=== PATIENT | male | born 1970 | race American Indian/Alaskan Native ===

== ENCOUNTER 2021-12-16 09:10 | Emergency (ER) | payer OTHER, SELFPAY ==
--- NOTE | ~2021-12-16 | XR_ITS ---
EXAMINATION: XR HIPS, BILATERAL XR KNEE, RIGHT XR KNEE, LEFT CLINICAL INFORMATION: Fall, trauma, pain COMPARISON: None TECHNIQUE: AP view pelvis is performed along with 3 views right hip and 2 views left hip. Right knee is imaged in AP and crosstable lateral projection. Left knee is imaged in AP x2 and a crosstable lateral projection. FINDINGS: Pelvis/hips: Mild generalized osteopenia pelvis. There is no fracture or dislocation pelvis or hips. No diastases SI joints or pubis. There are degenerative changes in both hips. No visible erosive change. Bowel gas unremarkable. Large amount of stool present in rectosigmoid. Probable degenerative changes lower lumbar spine. Right knee: Mild generalized osteopenia. There is a predominantly transverse fracture involving the distal femoral metaphysis, mildly impacted. The proximal tibia and fibular appear intact. There is no dislocation. No definite destructive process. There is a large suprapatellar effusion with fat fluid level. No focal joint narrowing or erosive change. Left knee: Mild generalized osteopenia. Small focal cortical buckling lateral supracondylar region but without visible fracture and no dislocation or destructive process or periostitis. No suprapatellar effusion. Hoffa's fat pad normal. No focal joint narrowing or erosive change. XR/XR knee RT 4V IMPRESSION: -Fracture right distal femur with large suprapatellar effusion and fat fluid level. -No visible fracture pelvis, hips, or left knee. -Generalized osteopenia. Clinically correlate.
--- NOTE | ~2021-12-16 | XR_ITS ---
EXAMINATION: XR ELBOW, RIGHT CLINICAL INFORMATION: Fall, trauma, pain COMPARISON: None TECHNIQUE: AP, lateral, and oblique views of the right elbow. FINDINGS: No fracture, dislocation, or elbow capsular effusion. No joint narrowing or erosive changes. XR/XR elbow RT min 3V IMPRESSION: No fracture, dislocation, or capsular effusion.
--- NOTE | ~2021-12-16 | XR_ITS ---
EXAMINATION: XR HIPS, BILATERAL XR KNEE, RIGHT XR KNEE, LEFT CLINICAL INFORMATION: Fall, trauma, pain COMPARISON: None TECHNIQUE: AP view pelvis is performed along with 3 views right hip and 2 views left hip. Right knee is imaged in AP and crosstable lateral projection. Left knee is imaged in AP x2 and a crosstable lateral projection. FINDINGS: Pelvis/hips: Mild generalized osteopenia pelvis. There is no fracture or dislocation pelvis or hips. No diastases SI joints or pubis. There are degenerative changes in both hips. No visible erosive change. Bowel gas unremarkable. Large amount of stool present in rectosigmoid. Probable degenerative changes lower lumbar spine. Right knee: Mild generalized osteopenia. There is a predominantly transverse fracture involving the distal femoral metaphysis, mildly impacted. The proximal tibia and fibular appear intact. There is no dislocation. No definite destructive process. There is a large suprapatellar effusion with fat fluid level. No focal joint narrowing or erosive change. Left knee: Mild generalized osteopenia. Small focal cortical buckling lateral supracondylar region but without visible fracture and no dislocation or destructive process or periostitis. No suprapatellar effusion. Hoffa's fat pad normal. No focal joint narrowing or erosive change. XR/XR hips BRENNON min 3V IMPRESSION: -Fracture right distal femur with large suprapatellar effusion and fat fluid level. -No visible fracture pelvis, hips, or left knee. -Generalized osteopenia. Clinically correlate.
--- NOTE | ~2021-12-16 | XR_ITS ---
EXAMINATION: XR HIPS, BILATERAL XR KNEE, RIGHT XR KNEE, LEFT CLINICAL INFORMATION: Fall, trauma, pain COMPARISON: None TECHNIQUE: AP view pelvis is performed along with 3 views right hip and 2 views left hip. Right knee is imaged in AP and crosstable lateral projection. Left knee is imaged in AP x2 and a crosstable lateral projection. FINDINGS: Pelvis/hips: Mild generalized osteopenia pelvis. There is no fracture or dislocation pelvis or hips. No diastases SI joints or pubis. There are degenerative changes in both hips. No visible erosive change. Bowel gas unremarkable. Large amount of stool present in rectosigmoid. Probable degenerative changes lower lumbar spine. Right knee: Mild generalized osteopenia. There is a predominantly transverse fracture involving the distal femoral metaphysis, mildly impacted. The proximal tibia and fibular appear intact. There is no dislocation. No definite destructive process. There is a large suprapatellar effusion with fat fluid level. No focal joint narrowing or erosive change. Left knee: Mild generalized osteopenia. Small focal cortical buckling lateral supracondylar region but without visible fracture and no dislocation or destructive process or periostitis. No suprapatellar effusion. Hoffa's fat pad normal. No focal joint narrowing or erosive change. XR/XR knee LT 4V IMPRESSION: -Fracture right distal femur with large suprapatellar effusion and fat fluid level. -No visible fracture pelvis, hips, or left knee. -Generalized osteopenia. Clinically correlate.
[2021-12-16 09:18] VITALS: BP 150/90; PULSE 82; O2SAT 100
[2021-12-16 09:31] VITALS: BP 150/90; PULSE 82; RESP 18; TEMP 36.7; O2SAT 100; BMI 48.8
--- NOTE | 2021-12-16 10:01 | ED_ITS ---
HPI - Fall General Chief Complaint: Fall Stated Complaint: FELL OUT OF HIS WHEELCHAIR Time Seen by Provider: 12/16/21 10:01 Source: patient, EMS and other ( room a at bedside) Mode of arrival: EMS Limitations: no limitations History of Present Illness HPI Narrative: 51-year-old male who has a past medical history of Guillain-Martensdale syndrome for many years who receives IVIG therapy once a month for a week who is wheelchair- bound presenting to the ED via EMS after the chair van that was picking him up from his home accidentally tilt his chair while bring him on the ramp and the patient fell onto his right side/bilateral knees and since then he has been having worsening bilateral knee pain worse on the right than the left and right elbow pain. Reports that he normally does not walk. He denies head injury loss of consciousness. He denies prolonged down time. He denies neck injury. He denies any chest injury/pain, abdominal injury/ pain, any other extremity injury, paresthesias or any weakness or any other symptoms complaints or concerns at this time. 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) Fall from: wheelchair Fall witnessed: yes, by family ( By roommate) Place fall occurred: street ( outside of his home) Loss of consciousness: none Prolonged down time: no Symptoms prior to fall: none Context: other ( see above fell off of wheelchair) Location of injury - extremities: right: elbow and bilateral: knee Severity: severe Severity scale (1-10): >10 Quality: aching Associated symptoms (after fall): other ( see above) Related Data Previous Rx's Medication Instructions Recorded acetaminophen 500 mg tablet 1,000 mg PO QID PRN fever or pain 12/16/21 (Tylenol Extra Strength) #14 tabs docusate sodium 100 mg capsule 100 mg PO BID PRN Constipation #14 12/16/21 (Colace) caps oxycodone 5 mg tablet 5 mg PO Q6H PRN pain #14 tabs 12/16/21 polyethylene glycol 3350 17 17 g PO BID constipation #238 12/16/21 gram/dose oral powder (Miralax) grams Allergies Allergy/AdvReac Type Severity Reaction Status Date / Time No Known Allergies Allergy Verified 12/16/21 09:33 Review of Systems Review of Systems: Constitutional : No Fever, No Chills ENT/Mouth : No Ear Pain, No Hoarseness, No sore throat Eyes: No Eye Pain, No Swelling, No Redness, No Foreign Body Cardiovascular : No Chest Pain, No SOB Respiratory : No Cough, No Dyspnea Gastrointestinal : No Nausea, No Vomiting, No Diarrhea, No abdominal Pain Genitourinary : No Dysuria, No Hematuria Musculoskeletal : + bilateral knee pain and right elbow pain, no additional joint pain, No Myalgias, No Joint Swelling Skin : No Skin lacerations, No rash Neuro : No Weakness, No Numbness, No Paresthesias, No Loss of Consciousness, No Dizziness, No Headache Psych : No Anxiety/Panic, No Depression Heme/Lymph: no easy bruising, no Lymphadenopathy Endocrine : No Polyuria, No Polydipsia Yes all other systems are reviewed and are negative [facility] Past Medical History Attestation statement: The following information was validated with the patient. Source: old records reviewed and nursing notes reviewed Social History Social History Advance Directives: Yes Advance Directives Information Provided: Yes Advance Directives on File: No Physical Exam Vital Signs: Vital Signs: Last Vital Signs Temp 98.0 F 12/16/21 09:31 Pulse 82 12/16/21 09:31 Resp 17 12/16/21 12:00 BP 150/90 H 12/16/21 09:31 Pulse Ox 100 12/16/21 09:31 O2 Del Method 12/16/21 09:31 BMI result Body Mass Index 48.8 vital signs have been reviewed as normal and appeared to be correct. Blood pressure 150/90. Heart rate normal. Respiration rate normal. Temperature normal. Oxygen saturation normal. Appearance: Alert. Oriented X3. No acute distress. Head: Normal external exam. Normocephalic. Atraumatic. No Franklin signs noted. No raccoon eyes noted Eyes: PERRLA. EOMI. Conjunctiva and sclera normal. Eyelids normal. ENT: EAC normal. TM's Normal. No septal hematoma noted. No hemotympanum noted. Pharynx normal. Uvula midline. Moist mucous membranes. No lesions/ulcerations or masses noted on the tongue. Normal voice. No trismus noted. No drooling noted. No muffled voice noted. Neck: Normal inspection. Neck supple. FROM. No adenopathy. Thyroid Normal. No tracheal deviation noted. No crepitus is noted. No meningeal signs. No neck mass noted. No signs of trauma noted. CVS: Normal heart rate and rhythm. Heart sound normal. Pulses normal throughout. No murmurs/rales/gallops. Respiratory: No respiratory distress. Painless inspiration. Breath sounds normal. No wheezes/rales/rhonchi noted. Chest nontender. No crepitus is noted. No signs of trauma noted. No accessory muscle usage noted or decreased air movement noted. No signs of trauma. Abdomen: Soft and nontender. Bowel sounds normal in all 4 quadrants. No distention noted. No organomegaly noted. No visible injury noted. Back: Full range of motion noted. Nontender. No signs of trauma. Skin: Skin warm and dry. Normal skin color. Normal skin turgor. No rashes/lesions/lacerations noted. Extremities: patient reports bilateral knee pain worse on the right than the left no obvious ligamentous or tendon injury noted or obvious deformity although patient does not allow me to flex the knees due to pain. He would rather keep the bilateral knees and extension for position. He denies any hip pain. There is no obvious ligamentous or tendon injury noted or obvious deformities to the bilateral hips. patient mild tenderness palpation to the right elbow with a superficial abrasion no active bleeding or foreign bodies or obvious ligamentous or tendon injury noted or obvious deformities noted to the right elbow. Otherwise all other Extremities exhibit normal range of motion and nontender. Neuro: Oriented X 3. no new focal deficits. Patient reports he is at Baseline sensation and motor due to his Guillain-Martensdale syndrome. gait not tested due to patient wheelchair bound /Bed-bound. Vascular: + radial pulses/+ 2 distal pedal pulses/+2 dorsalis pedis b/l. Normal cap refill. No cyanosis noted to upper extremity nails and lower extremity toes nails. Course Course Course Narrative: 10am - 51-year-old male who has a past medical history of Guillain-Martensdale syndrome for many years who receives IVIG therapy once a month for a week who is wheelchair- bound presenting to the ED via EMS after the chair van that was picking him up from his home accidentally tilt his chair while bring him on the ramp and the patient fell onto his right side/bilateral knees and since then he has been having worsening bilateral knee pain worse on the right than the left and right elbow pain. Reports that he normally does not walk. patient had an IV placed via EMS and was given IV fentanyl reports the pain subsided although did not last too long with the pain med and pain has returned at this time. Plan: Will obtain a right elbow x-ray, bilateral knee x-rays and bilateral hip x-rays. Provide 1 mg of Dilaudid and 4 mg of Zofran and re-evaluate. Reevaluation(s) Reevaluation #1: - right elbow x-ray negative. - Bilateral hip x-rays negative for any acute processes only chronic changes noted. - Left knee x-ray revealed chronic changes no acute processes noted. - Although right knee x-ray revealed fracture to the right distal femur with large suprapatellar effusion and fat fluid level no additional fractures noted. Therefore I discussed this case with the orthopedic PA Saray she recommended placing the patient on a knee immobilizer with nonweightbearing and follow-up. Therefore I discussed this with the patient and he is normally bed-bound/ wheelchair-bound although usually transferred to the wheelchair by a board and uses his right leg to help home I explained to him that he may not be able to do this therefore he may have to stay bed bound and he will have to be transferred to his appointments by EMS On a stretcher not a chair van. getting case management involved at this time. Patient will be discharged with knee immobilizer and pain meds along with Colace and MiraLax for constipation. I did offer the patient short-term rehab although patient refused reports that he just got out of a long-term and does not want to go back. Also instructed to follow-up with orthopedics. Time: 13:59 Procedures Orthopedic Splinting/Casting Injury #1: Side: right Lower Extremity Injury Location: knee Lower Extremity Immobilizer: knee immobilizer MDM - Fall Medical Records Attestation: I reviewed the patient's medical records. Imaging Data bilateral knee/ hip x-rays: Attestation: I personally reviewed and interpreted this imaging study as follows: Radiologist's impression: FINDINGS: Pelvis/hips: Mild generalized osteopenia pelvis. There is no fracture or dislocation pelvis or hips. No diastases SI joints or pubis. There are degenerative changes in both hips. No visible erosive change. Bowel gas unremarkable. Large amount of stool present in rectosigmoid. Probable degenerative changes lower lumbar spine.? Right knee: Mild generalized osteopenia. There is a predominantly transverse fracture involving the distal femoral metaphysis, mildly impacted. The proximal tibia and fibular appear intact. There is no dislocation. No definite destructive process. There is a large suprapatellar effusion with fat fluid level. No focal joint narrowing or erosive change. Left knee: Mild generalized osteopenia. Small focal cortical buckling lateral supracondylar region but without visible fracture and no dislocation or destructive process or periostitis. No suprapatellar effusion. Hoffa's fat pad normal. No focal joint narrowing or erosive change. XR/XR knee RT 4V IMPRESSION: -Fracture right distal femur with large suprapatellar effusion and fat fluid level. ? -No visible fracture pelvis, hips, or left knee. ? -Generalized osteopenia. Clinically correlate. right elbow x-ray: Attestation: I personally reviewed and interpreted this imaging study as follows: Radiologist's impression: FINDINGS: No fracture, dislocation, or elbow capsular effusion. No joint narrowing or erosive changes.? XR/XR elbow RT min 3V IMPRESSION: No fracture, dislocation, or capsular effusion. Discharge Plan Discharge Clinical Impression: Fall, Sprain of right elbow, Abrasion of elbow, right, Femur fracture, right, Effusion of knee joint right, Left knee sprain Patient Disposition: Home, Self-Care Instructions: Leg Fracture (ED) Prescriptions: New acetaminophen [Tylenol Extra Strength] 500 mg tablet 1,000 mg PO QID PRN (Reason: fever or pain) Qty: 14 0RF oxycodone 5 mg tablet 5 mg PO Q6H PRN (Reason: pain) Qty: 14 0RF Rx Instructions: Partial Fill upon patient request. docusate sodium [Colace] 100 mg capsule 100 mg PO BID PRN (Reason: Constipation) Qty: 14 0RF polyethylene glycol 3350 [Miralax] 17 gram/dose powder 17 g PO BID Qty: 238 0RF Referrals: Jennifer ALEXANDER [Outside] Elliott Hutchinson MD [Physician] - 1 week ( Call to make a follow-up appointment within 1-2 weeks) Physician,Cortez J [Primary Care Provider] - 2 days (your pcp)
[2021-12-16 10:18] VITALS: RESP 18
[2021-12-16] MEDS: HYDROmorphone HCl 1 MG/ML SYRINGE IVPUSH (10:18)
[2021-12-16] MEDS: ondansetron HCL 4 MG/2 ML VIAL IVPUSH (10:19)
[2021-12-16 12:00] VITALS: RESP 17
[2021-12-16] MEDS: oxyCODONE HCl Immed Release 5 MG TABLET PO ×2 (15:52→20:55)
--- NOTE | 2021-12-16 16:30 | MHC.CM.ED ---
Received case management consult from Tricia PICKETT. Patient came to the ER after falling from his wheelchair while getting into the van for transport. Patient lives with his roommate, is bedbound/wheelchair bound at baseline. Patient was at [facility] from 01/16/2018-10/17/2021. Patient has been working with [facility] to obtain some UTILIZATION REVIEW SPECIALIST help. But this process has taken a while. Patient has no interest in returning to rehab. Patient is intersted in VNA. Understands they would not be there daily. Patient is concerned about being able to get transportation for doctors appointments. PCP is Ramiro Stewart. Referral has been made to [facility] for usp and social services specialist. [facility] booked for next available. Continue to monitor for d/c needs.
--- NOTE | 2021-12-18 08:58 | MHC.CM.ED ---
Unable to find any [facility]NA agency that is able to accept patient. Patient will have to reach out to his PCP for assistance.
== END 2021-12-16 20:56 | disposition home or self-care (01) ==
PROVIDERS: Emergency Provider Emergency Medicine; PCP Internal Medicine
DX: S72.491A Other fracture of lower end of right femur, initial encounter for closed fracture (principal); S53.401A Unspecified sprain of right elbow, initial encounter; S83.92XA Sprain of unspecified site of left knee, initial encounter; S50.311A Abrasion of right elbow, initial encounter; W10.2XXA Fall (on)(from) incline, initial encounter; K59.00 Constipation, unspecified; M25.461 Effusion, right knee; M85.862 Other specified disorders of bone density and structure, left lower leg; M85.861 Other specified disorders of bone density and structure, right lower leg; G61.0 Guillain-Barre syndrome; Z99.3 Dependence on wheelchair; Y93.89 Activity, other specified; Y92.414 Local residential or business street as the place of occurrence of the external cause; Y99.9 Unspecified external cause status
CPT/HCPCS: 73080; 73522; 73564; 96374; 96375; 99283; 99284; J1170; J2405

== ENCOUNTER 2022-01-03 14:00 | Inpatient (IN) | payer OTHER, SELFPAY ==
--- NOTE | ~2022-01-03 | US_ITS ---
EXAMINATION: US VENOUS ULTRASOUND WITH DOPPLER LOWER EXTREMITY, RIGHT CLINICAL INFORMATION: This is a 51-year-old male with right leg pain and swelling. COMPARISON: None TECHNIQUE: Ultrasound of the venous system was performed. The initial examination demonstrated deep vein thrombosis in the proximal thigh and groin. The study was difficult to perform on the lower leg because of the presence of the brace. Therefore, the findings were communicated to the emergency room as noted below and the remainder the examination was limited. FINDINGS: There is subcutaneous edema. There is deep vein thrombosis involving the right common femoral vein and extending into the profunda femoral vein. This critical result was communicated directly by telephone to Dr. Binta Ly at 2050 hrs on 01/03/2022 and the content and urgency of the communication was understood. US/US venous duplex LE RT IMPRESSION: 1. There is deep vein thrombosis involving the right common femoral vein.
--- NOTE | ~2022-01-03 | CT_ITS ---
EXAMINATION: CT CHEST ANGIOGRAM PE PROTOCOL CLINICAL INFORMATION: , Reason for Exam tachycardia, recent femur fracture COMPARISON: None TECHNIQUE: Volumetric imaging was performed through the chest. Reformatted coronal and sagittal imaging was performed. 3-D MIP images performed at a dedicated separate workstation. This CT examination was performed using dose optimization techniques as appropriate, variously including the following: *Automated exposure control *Adjustment of mA and/or kV according to patient size (this includes techniques or standardized protocols for targeted exams where dose is matched to indication/reason for exam; i.e. extremities or head) *Use of iterative reconstruction technique CONTRAST: 71 mL Omnipaque 350 injected DLP: 526 FINDINGS: PULMONARY ARTERIES: There is proper opacification of the pulmonary artery and its main branches. There are linear artifacts and filling defect in a branch of left pulmonary artery to the left lower lobe, it is unclear if this is motion artifact with image distortion versus nonocclusive embolus. I would probably favor artifact over true embolus however the latter cannot be entirely excluded. Refer image 206 series 7. There is no cardiac strain. No reflux of contrast to the liver. LINES/TUBES: None LUNGS: Lung Parenchyma: There is no CT evidence of significant lung parenchymal disease. Lung Nodules:There are no significant lung nodules. AIRWAYS: Trachea and bronchi are normal. PLEURA: No pleural effusion or pneumothorax. MEDIASTINUM AND LAXMI: The visualized thyroid gland is unremarkable. No mediastinal, hilar or axillary lymphadenopathy. There is no mediastinal mass. VESSELS: Thoracic aorta is normal in size. HEART AND PERICARDIUM: Heart is normal in size. There is no pericardial effusion. There are coronary calcifications. CHEST WALL, LOWER NECK, SURROUNDING SOFT TISSUES: Normal VISUALIZED ABDOMEN: Unremarkable BONES: The visualized bony thorax is within normal limits. CT/CT angio chest PE protocol IMPRESSION: 1. Intermediate probability for PE, there is nonocclusive filling defect in a branch of left pulmonary artery to the left lower lobe, visualization of which is distorted by motion artifact, Wells image, although this could be imaged distortion/artifact which probably the cause of this filling defect however nonocclusive embolus cannot entirely be ruled out. There is no cardiac strain. If there is high index of suspicion, may consider repeat the CT angiogram in [address] scan otherwise normal.
[2022-01-03 14:19] VITALS: BP 101/64; BP 104/70; PULSE 125; RESP 20; TEMP 36.8; O2SAT 100; BMI 34.9
[2022-01-03 14:21] VITALS: BP 101/64; PULSE 124; RESP 18; TEMP 37.2; O2SAT 96
--- NOTE | 2022-01-03 14:31 | ECG_ITS ---
Test Reason : DIZZINESS Blood Pressure : / mmHG Vent. Rate : 126 BPM Atrial Rate : 126 BPM P-R Int : 140 ms QRS Dur : 110 ms QT Int : 306 ms P-R-T Axes : 030 -10 032 degrees QTc Int : 443 ms Sinus tachycardia Otherwise normal ECG No previous ECGs available Referred By: Kaitlin Hernandez Electronically Signed By:WILLIAM LU MD
[2022-01-03 15:16] LABS: Basophils Percent Auto 0.3 % (0-2); Eosinophils Percent Auto 0.1 % (0-4); Hematocrit 44.8 % (42.0-52.0); Hemoglobin 14.8 g/dl (14.0-18.0); Imm Gran Abs Auto 0.04 X10*3/uL (0.00-0.03); Imm Gran Pct Auto 0.4 % (0.0-0.4); Lymphocytes Absolute Auto 1.2 X10*3/uL (1.2-4.9); Lymphocytes Percent Auto 12.1 % (20-40); MANUAL DIFF FLAG NO; Mean Corpuscular Hemoglobin 28.2 pg (27.0-33.0); Mean Corpuscular Volume 85.3 fL (80.0-98.0); Mean Platelet Volume 9.1 fL (9.4-12.4); Monocytes Absolute Auto 0.7 X10*3/uL (0.1-1.2); Monocytes Percent Auto 6.8 % (2-11); Neutrophils Absolute Auto 7.7 x10*3/uL (2.0-8.3); Neutrophils Percent Auto 80.3 % (45-73); Platelet Count 567 X10*3/uL (160-400); Red Blood Count 5.25 X10*6/uL (4.60-5.80); Red Cell Distribution Width 12.8 % (11.0-16.0); White Blood Count 9.5 X10*3/uL (4.8-10.8)
--- NOTE | 2022-01-03 15:29 | ED.DIZZY ---
HPI - Dizziness General Chief Complaint: Dizziness Stated Complaint: anxiety Time Seen by Provider: 01/03/22 14:25 Source: patient Mode of arrival: EMS Limitations: no limitations History of Present Illness HPI Narrative: Patient presents emergency department for evaluation of dizziness/lightheadedness and feeling like he was going to pass out. He states that for the past 3 days he experiences symptoms when he is sitting up in bed and trying to freshen up. He states that he begins to feel dizzy, feels short of breath, feels his heart racing and starts to see black floaters like he is going to pass out. His symptoms resolved after he lies back and relaxes for some time. He denies this ever occurring in the past. He does state that it brings on anxiety for him. He denies fevers, chills, headache, vision changes, neck pain, neck stiffness, chest pain, shortness of breath at rest, difficulty breathing, nausea, vomiting, abdominal pain, numbness or tingling of his extremities. Related Data Previous Rx's Medication Instructions Recorded acetaminophen 500 mg tablet 1,000 mg PO QID PRN fever or pain 12/16/21 (Tylenol Extra Strength) #14 tabs docusate sodium 100 mg capsule 100 mg PO BID PRN Constipation #14 12/16/21 (Colace) caps oxycodone 5 mg tablet 5 mg PO Q6H PRN pain #14 tabs 12/16/21 polyethylene glycol 3350 17 17 g PO BID constipation #238 12/16/21 gram/dose oral powder (Miralax) grams Allergies Allergy/AdvReac Type Severity Reaction Status Date / Time No Known Allergies Allergy Verified 12/16/21 09:33 Review of Systems Review of Systems: Constitutional: No weight loss. No fever. No chills. No weakness. No fatigue. Skin: No rash. No itching. Cardiovascular: No chest pain. No chest pressure. Positive palpitations. No pedal edema. Respiratory: Positive shortness of breath. No cough. No sputum production. Gastrointestinal: No anorexia. No nausea. No vomiting. No diarrhea. No abdominal pain. No blood in stool. Genitourinary: No burning micturition. No urinary frequency. No incontinence. Neurologic: No headache. Positive dizziness. Positive pre-syncope. No syncope. No unilateral weakness. No numbness. No tingling. No change in bowel or bladder control. Musculoskeletal: No muscle pain. No back pain. No joint pain. No stiffness. Hematologic: No bleeding. No bruising. Lymphatics: No enlarged lymph nodes. Psychiatric:No depression. No anxiety. Endocrine: No polyuria. No polydipsia. Yes all other systems are reviewed and are negative [facility] Social History Social History Alcohol intake: current Alcohol intake frequency: holidays/special occasions only Patient Tobacco Use Status: Never used Tobacco Use of substances other than those prescribed or required for medical reasons: Yes Substance Use Type: Marijuana Substance Use Frequency: Occasionally Advance Directives: Yes Advance Directives Information Provided: No Advance Directives on File: Yes Advance Directives Date on File: 12/16/21 Physical Exam Vital Signs: Vital Signs: Last Vital Signs Temp 97.9 F 01/03/22 17:28 Pulse 120 H 01/03/22 17:28 Resp 16 01/03/22 17:28 BP 106/68 01/03/22 17:28 Pulse Ox 100 01/03/22 17:28 O2 Del Method 01/03/22 17:28 BMI result Body Mass Index 34.5 Vital signs have been reviewed as normal and appeared to be correct. Blood pressure normal.? Tachycardia Respiration rate normal. Temperature normal.? Oxygen saturation normal. Appearance: Alert.?Oriented to person, place and time. No acute distress.?Normal affect. Eyes: Pupils equal, round and reactive to light.? ENT: Pharynx normal.?? Neck: Normal inspection.? Neck supple.?? CVS: Heart sounds normal. Tachycardia, heart rate in the 120 is at rest, noted to increase to 140s with sitting forward or deep inspiration.? Pulses normal.?? Respiratory: No respiratory distress.? Lung sounds clear to auscultation bilaterally?? Abdomen: Soft and non-tender. Normoactive bowel sounds. ? Skin: Skin warm and dry.? Normal skin color.? ? Extremities: No lower extremity edema.? No calf ttp? Neuro: Moves upper extremities spontaneously. Sensation intact bilaterally. CN II-XII intact. No focal neuro deficits. 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 Patient was seen in the emergency department 12/17/2019 G2 for evaluation after fall while in his wheelchair is, at that time was found to have a right distal femur fracture with large suprapatellar effusion and fat fluid level, he was evaluated in use emergency department, Orthopedics was consulted and patient was placed in a knee immobilizer advised to be nonweightbearing, and to follow-up in office. Patient states that he has not received any contact from the orthopedics office, he further states that he did not contact them on his own. Prior to this injury he was able to use his right leg and upper body strength to facilitate slide board transfers, however given this is where his fracture is he has been bed-bound since this injury. Patient was offered short-term rehab before discharge but he declined. He denies any additional falls or injury since this event. Patient is overall well appearing, no increased work of breathing, no apparent distress. He is afebrile, no tachypnea, no hypoxia. Patient is notably tachycardic with heart rate in the 120s while at rest, noted during exam with sitting forward in deep inspiration tachycardia increasing to 140s. Given his recent femur fracture, concern for pulmonary embolism, will obtain CBC, CMP, EKG, troponin, and CT angio of the chest. Reevaluation(s) Reevaluation #1: EKG reveals sinus tachycardia with no acute ischemic findings, troponin 4.9. CBC reveals no leukocytosis, no anemia, or for thrombocytosis with platelet count 567. CMP is overall unremarkable, normal renal function. Time: 15:39 Reevaluation #2: CT angio of the chest with impression of intermediate probability for PE, noted a nonocclusive filling defect in the branch of the left pulmonary artery to the left lower lobe, but according to the report is unclear whether this is motion artifact with image distortion versus nonocclusive emboli. Discussed this case with ED attending Dr. Ly, will obtain D-dimer, if normal and not elevated unlikely to be pulmonary embolism. Time: 17:49 Reevaluation #3: Elevated D-dimer 2599. Highly suspicious for pulmonary embolism with this in addition to CT angio of the chest findings. Discussed these findings with patient. Spoke with hospitalist Dr. Bauer who accepted patient for admission to medicine service. Will start patient at Lovenox 1 mg/kg. Time: 19:15 Additional Reevaluation(s): 2054: Received call from the water quality technician, Dr. Bauer had requested order for bilateral venous duplex. Patient refusing to remove the knee immobilizer from the right lower extremity however water quality technician was able to obtain imaging of the proximal leg is found to have an extensive clot in the right common femoral vein extending into the profundus, at this time left lower extremity ultrasound was not performed as patient was found to have DVT, likely to be the source of his pulmonary embolism. Dr. Bauer made aware of the above findings. [facility] Medical Records Attestation: I reviewed the patient's medical records. Lab Data Attestation: I reviewed the patient's lab results. Result diagrams: 01/03/22 15:08 01/03/22 15:08 Labs: Lab Results 01/03/22 01/03/22 01/03/22 Range/Units 15:08 15:08 15:08 WBC 9.5 (4.8-10.8) X10*3/uL RBC 5.25 (4.60-5.80) X10*6/uL Hgb 14.8 (14.0-18.0) g/dl Hct 44.8 (42.0-52.0) % MCV 85.3 (80.0-98.0) fL MCH 28.2 (27.0-33.0) pg MCHC 33.0 (31.0-36.0) g/dl RDW 12.8 (11.0-16.0) % Plt Count 567 H (160-400) X10*3/uL MPV 9.1 L (9.4-12.4) fL Immature Gran % (Auto) 0.4 (0.0-0.4) % Neut % (Auto) 80.3 H (45-73) % Lymph % (Auto) 12.1 L (20-40) % [place] % (Auto) 6.8 (2-11) % Eos % (Auto) 0.1 (0-4) % Baso % (Auto) 0.3 (0-2) % Lymph # (Auto) 1.2 (1.2-4.9) X10*3/uL [place] # (Auto) 0.7 (0.1-1.2) X10*3/uL Eos # (Auto) 0.0 (0.0-0.4) X10*3/uL Baso # (Auto) 0.0 (0.0-0.2) X10*3/uL Abs Immat Gran (auto) 0.04 H (0.00-0.03) X10*3/uL Absolute Neuts (auto) 7.7 (2.0-8.3) x10*3/uL Absolute Nucleated RBC 0.000 (0.0-0.012) X10*3/uL Nucleated RBC % (auto) 0.0 (0.0-0.2) /100WBC D-Dimer High Sensitivty NG/ML Sodium 135 (135-145) mmol/L Potassium 4.4 (3.3-5.1) mmol/L Chloride 99 (96-108) mmol/L Carbon Dioxide 20 L (22-29) mmol/L Anion Gap 20 (12-20) BUN 14 (9-16) mg/dL Creatinine 0.72 (0.5-1.4) mg/dL Estim Creat Clear Calc 178.1 Estimated GFR > 60 Random Glucose 124 H (60-115) mg/dL Calcium 9.2 (8.4-10.2) mg/dL Magnesium 1.6 (1.6-2.6) mg/dL Total Bilirubin 1.2 H (0.0-1.0) mg/dL AST 17 (5-37) U/L ALT 14 (0-40) U/L Alkaline Phosphatase 110 (39-117) U/L Troponin I High Sens 4.9 (<3.5-35.0) ng/L B-Natriuretic Peptide < 10 (<100) pg/mL Total Protein 7.2 (6.5-8.0) g/dL Albumin 3.6 (3.5-5.0) g/dL TSH (0.32-4.0) uIU/mL COVID-19 (SURYA) (Negative) COVID-19 Clin Com 01/03/22 01/03/22 01/03/22 Range/Units 15:08 18:05 18:05 WBC (4.8-10.8) X10*3/uL RBC (4.60-5.80) X10*6/uL Hgb (14.0-18.0) g/dl Hct (42.0-52.0) % MCV (80.0-98.0) fL MCH (27.0-33.0) pg MCHC (31.0-36.0) g/dl RDW (11.0-16.0) % Plt Count (160-400) X10*3/uL MPV (9.4-12.4) fL Immature Gran % (Auto) (0.0-0.4) % Neut % (Auto) (45-73) % Lymph % (Auto) (20-40) % [place] % (Auto) (2-11) % Eos % (Auto) (0-4) % Baso % (Auto) (0-2) % Lymph # (Auto) (1.2-4.9) X10*3/uL [place] # (Auto) (0.1-1.2) X10*3/uL Eos # (Auto) (0.0-0.4) X10*3/uL Baso # (Auto) (0.0-0.2) X10*3/uL Abs Immat Gran (auto) (0.00-0.03) X10*3/uL Absolute Neuts (auto) (2.0-8.3) x10*3/uL Absolute Nucleated RBC (0.0-0.012) X10*3/uL Nucleated RBC % (auto) (0.0-0.2) /100WBC D-Dimer High Sensitivty 2599 NG/ML Sodium (135-145) mmol/L Potassium (3.3-5.1) mmol/L Chloride (96-108) mmol/L Carbon Dioxide (22-29) mmol/L Anion Gap (12-20) BUN (9-16) mg/dL Creatinine (0.5-1.4) mg/dL Estim Creat Clear Calc Estimated GFR Random Glucose (60-115) mg/dL Calcium (8.4-10.2) mg/dL Magnesium (1.6-2.6) mg/dL Total Bilirubin (0.0-1.0) mg/dL AST (5-37) U/L ALT (0-40) U/L Alkaline Phosphatase (39-117) U/L Troponin I High Sens (<3.5-35.0) ng/L B-Natriuretic Peptide (<100) pg/mL Total Protein (6.5-8.0) g/dL Albumin (3.5-5.0) g/dL TSH 1.22 (0.32-4.0) uIU/mL COVID-19 (SURYA) Negative (Negative) COVID-19 Clin Com See Note Imaging Data CT scan - chest: Radiologist's impression: CT/CT angio chest PE protocol IMPRESSION: ? 1. Intermediate probability for PE, there is nonocclusive filling defect in a branch of left pulmonary artery to the left lower lobe, visualization of which is distorted by motion artifact, Wells image, although this could be imaged distortion/artifact which probably the cause of this filling defect however nonocclusive embolus cannot entirely be ruled out. There is no cardiac strain. ? ?If there is high index of suspicion, may consider repeat the CT angiogram in 24 hours. ECG Data Attestation: I personally reviewed and interpreted this ECG as follows: ECG interpretation date: 01/03/22 Interpretation: Rate: 126 Rhythm:? Sinus tachycardia [place]:? Normal Normal P waves.? Normal EFFIE.?? Normal QRS complex.?? ST T wave :??No ST elevation, no ST depression qTC: 443 The study has been interpreted contemporaneously by me. Discharge Plan Discharge Clinical Impression: Pulmonary embolism, DVT (deep venous thrombosis), Femur fracture, right, Guillain-Hallwood syndrome Patient Disposition: Admitted As Inpatient
[2022-01-03 15:36] LABS: Alanine Aminotransferase 14 U/L (0-40); Albumin Level 3.6 g/dL (3.5-5.0); Alkaline Phosphatase 110 U/L (39-117); Anion Gap 20 (12-20); Aspartate Amino Transferase 17 U/L (5-37); Bilirubin Total 1.2 mg/dL (0.0-1.0); Blood Urea Nitrogen 14 mg/dL (9-16); Calcium 9.2 mg/dL (8.4-10.2); Carbon Dioxide 20 mmol/L (22-29); Chloride 99 mmol/L (96-108); Creatinine Clr Calc Pharmacy 178.1; Estimated Glomerular Filt Rate > 60; Glucose Random 124 mg/dL (60-115); Magnesium 1.6 mg/dL (1.6-2.6); Potassium 4.4 mmol/L (3.3-5.1); Sodium 135 mmol/L (135-145); Total Protein 7.2 g/dL (6.5-8.0)
[2022-01-03 15:39] LABS: COVID-19 Test Negative (Negative); Troponin-I High Sensitivity 4.9 ng/L (<3.5-35.0)
[2022-01-03] MEDS: iohexoL 350 MG/ML 100 ML INFUS..BTL IV (16:43)
[2022-01-03 17:28] VITALS: BP 106/68; PULSE 120; RESP 16; TEMP 36.6; O2SAT 100
[2022-01-03 18:11] LABS: B Type Natriuretic Peptide < 10 pg/mL (<100)
[2022-01-03 18:24] LABS: D Dimer High Sensitivity 2599 NG/ML
[2022-01-03] MEDS: 0.9 % Sodium Chloride 1,000 ML 999 ML IV (18:30)
[2022-01-03 18:55] LABS: TSH reflex Free T4 1.22 uIU/mL (0.32-4.0)
[2022-01-03 19:43] VITALS: BMI 34.5
--- NOTE | 2022-01-03 20:02 | PM.IMHP ---
History of Present Illness Date of Service: 01/03/22 Chief Complaint: Dizziness 51-year-old male with a past medical history of Guillain Bartley syndrome-on monthly IVIG, wheelchair-bound, recent history of femur fracture on 12/16/2021, presented to the hospital today with a chief complaint of dizziness. Patient reported that while he was moving from the wheelchair he fell and had femur fracture on 12/16/2021, came to the ER; after evaluation and discussion with the orthopedics patient was sent home with follow-up in orthopedic clinic in 2 weeks. Patient mentioned that since then he has been mostly in the bed, lately noted to have shortness of breath in the exertion followed by dizziness and almost fainting attack; denies any fall or syncope this time. Denies any chest pains. Denies any fever chills cough or sputum production. Mentions that his symptoms have been gradually worsening hence decided to come to the ER for further evaluation. Denies any GI symptoms. Review of all other systems is negative except mentioned above ER course: Per ER team patient exam was benign, has knee immobilizer in place; labs essentially benign; EKG noted to be sinus tachy; no evidence of ischemia; D-dimer elevated; CT chest showed possible pulmonary embolism. Patient was started on Lovenox. Venous duplex pending. Admitted for further management. [facility] Pertinent family history: Reviewed Social History Alcohol intake: current Alcohol intake frequency: holidays/special occasions only Patient Tobacco Use Status: Never used Tobacco Use of substances other than those prescribed or required for medical reasons: Yes Substance Use Type: Marijuana Substance Use Frequency: Occasionally Advance Directives: Yes Advance Directives Information Provided: No Advance Directives on File: Yes Advance Directives Date on File: 12/16/21 Meds Allergies Allergy/AdvReac Type Severity Reaction Status Date / Time No Known Allergies Allergy Verified 12/16/21 09:33 Active Medications: Current Medications Acetaminophen (Acetaminophen 325 Mg Tablet) 650 mg PO Q6H PRN PRN Reason: Pain, Mild (Pain Scale 1-3) Sodium Chloride (Ns) 1,000 mls @ 100 mls/hr IVCONT .Q10H YOLETTE Melatonin (Melatonin 3 Mg Tablet) 6 mg PO BEDTIME PRN PRN Reason: Insomnia Senna (Sennosides 8.6 Mg Tablet) 17.2 mg PO BEDTIME PRN PRN Reason: Constipation Sodium Chloride (0.9 % Sodium Chloride Flush 3 Ml Syringe) 3 ml IVFLUSH QSHIFT YOLETTE Physical Exam Vital Signs and Narrative: Vital Signs: Last Vital Signs Temp 97.9 F 01/03/22 17:28 Pulse 120 H 01/03/22 17:28 Resp 16 01/03/22 17:28 BP 106/68 01/03/22 17:28 Pulse Ox 100 01/03/22 17:28 O2 Del Method 01/03/22 17:28 BMI result Body Mass Index 34.5 Gen: Appears be in no acute distress HEENT: NCAT, Moist mucosa. Pulmonary: Vesicular breath sounds, fair air entry CVS: Normal S1-S2 Abdomen: BS+, Soft, Nontender Extremities: Warm well perfused; knee immobilizer in place on right lower extremity; no cough tenderness Neuro: Alert and awake. Results Labs CBC and Chem 7: 01/03/22 15:08 01/03/22 15:08 Labs: Laboratory Results - last 24 hr 01/03/22 01/03/22 01/03/22 15:08 15:08 15:08 MCV 85.3 MCH 28.2 MCHC 33.0 RDW 12.8 Plt Count 567 H MPV 9.1 L Immature Gran % (Auto) 0.4 Neut % (Auto) 80.3 H Lymph % (Auto) 12.1 L [place] % (Auto) 6.8 Eos % (Auto) 0.1 Baso % (Auto) 0.3 Lymph # (Auto) 1.2 [place] # (Auto) 0.7 Eos # (Auto) 0.0 Baso # (Auto) 0.0 Abs Immat Gran (auto) 0.04 H Absolute Neuts (auto) 7.7 Absolute Nucleated RBC 0.000 Nucleated RBC % (auto) 0.0 D-Dimer High Sensitivty Anion Gap 20 Estim Creat Clear Calc 178.1 Estimated GFR > 60 Random Glucose 124 H Calcium 9.2 Magnesium 1.6 Total Bilirubin 1.2 H AST 17 ALT 14 Alkaline Phosphatase 110 B-Natriuretic Peptide < 10 Total Protein 7.2 Albumin 3.6 TSH COVID-19 (SURYA) COVID-19 Clin Com 01/03/22 01/03/22 01/03/22 15:08 18:05 18:05 MCV MCH MCHC RDW Plt Count MPV Immature Gran % (Auto) Neut % (Auto) Lymph % (Auto) [place] % (Auto) Eos % (Auto) Baso % (Auto) Lymph # (Auto) [place] # (Auto) Eos # (Auto) Baso # (Auto) Abs Immat Gran (auto) Absolute Neuts (auto) Absolute Nucleated RBC Nucleated RBC % (auto) D-Dimer High Sensitivty 2599 Anion Gap Estim Creat Clear Calc Estimated GFR Random Glucose Calcium Magnesium Total Bilirubin AST ALT Alkaline Phosphatase B-Natriuretic Peptide Total Protein Albumin TSH 1.22 COVID-19 (SURYA) Negative COVID-19 Clin Com See Note Imaging Radiologist's Impressions: Impressions Chest CTA 01/03/22 16:52 IMPRESSION: 1. Intermediate probability for PE, there is nonocclusive filling defect in a branch of left pulmonary artery to the left lower lobe, visualization of which is distorted by motion artifact, Wells image, although this could be imaged distortion/artifact which probably the cause of this filling defect however nonocclusive embolus cannot entirely be ruled out. There is no cardiac strain. If there is high index of suspicion, may consider repeat the CT angiogram in [address] scan otherwise normal. Assessment and Plan (1) Pulmonary embolism: Status: Acute Plan 51-year-old male with a past medical history of Guillain Bartley syndrome-on monthly IVIG, wheelchair-bound, recent history of femur fracture on 12/16/2021, presented to the hospital today with a chief complaint of dizziness. Noted to have following conditions Dizziness/near syncope: Likely deconditioning-patient has been in the bed since the fracture on December 16. Aggressive PT/OT EKG nonischemic, initial troponin negative. Fall precautions Pulmonary embolism: CT chest showed possible pulmonary embolism. Will obtain venous duplex Continue Lovenox at therapeutic dose Echocardiogram Right femur fracture: Patient has knee immobilizer in place. Patient supposed to follow-up with orthopedics as outpatient in 2 weeks, has not followed ER. Will consult Ortho for further recommendations. History of Guillain Bartley syndrome: Patient reports he has been on monthly IVIG. DVT prophylaxis: Patient on Lovenox Code status: Full code Quality Stroke Does the patient have a stroke diagnosis?: No VTE Prior VTE?: No VTE Risk Level:: Medical - moderate - high VTE Device Contraindication: Treatment Not Indicated VTE Drug Contraindication: N/A - Med Ordered
[2022-01-03] MEDS: 0.9 % Sodium Chloride 1,000 ML 100 ML IVCONT (20:17)
--- NOTE | 2022-01-03 20:33 | PC.NURSE ---
Lovenox dose not loaded in pyxis. Called pharmacy, they will deliver proper dosage. Administration is delayed.
[2022-01-03] MEDS: Enoxaparin Sodium 120 MG/0.8 ML SYRINGE SUBCUT (22:57)
[2022-01-04] MEDS: Acetaminophen 325 MG TABLET 650 MG PO (05:29)
[2022-01-04] MEDS: 0.9 % Sodium Chloride 1,000 ML 100 ML IVCONT (06:51)
[2022-01-04 07:15] VITALS: BP 105/72; PULSE 76; RESP 14; TEMP 36.9; O2SAT 98
--- NOTE | 2022-01-04 07:52 | PHA.MEDREC ---
MED REC COMPLETE, PATIENT HAS RECENTLY BEEN ON OXYCODONE AFTER A BROKEN LEG, THIS IS NOW FINISHED. HE STATED HE TAKES A COUPLE OF BACLOFEN A DAY WE WILL TRY TO CONFIRM A DOSE WITH [facility] Pharmacy Consult ? Medication Reconciliation Pharmacy has completed the medication reconciliation.
[2022-01-04 08:13] LABS: MANUAL DIFF FLAG NO
[2022-01-04 08:17] LABS: Basophils Percent Auto 0.6 % (0-2); Eosinophils Percent Auto 0.6 % (0-4); Hematocrit 41.5 % (42.0-52.0); Hemoglobin 13.6 g/dl (14.0-18.0); Imm Gran Abs Auto 0.04 X10*3/uL (0.00-0.03); Imm Gran Pct Auto 0.6 % (0.0-0.4); Lymphocytes Absolute Auto 2.4 X10*3/uL (1.2-4.9); Mean Corpuscular HGB Conc 32.8 g/dl (31.0-36.0); Mean Corpuscular Hemoglobin 28.2 pg (27.0-33.0); Mean Corpuscular Volume 85.9 fL (80.0-98.0); Mean Platelet Volume 9.1 fL (9.4-12.4); Monocytes Absolute Auto 0.5 X10*3/uL (0.1-1.2); Neutrophils Absolute Auto 3.8 x10*3/uL (2.0-8.3); Neutrophils Percent Auto 55.2 % (45-73); Platelet Count 527 X10*3/uL (160-400); Red Blood Count 4.83 X10*6/uL (4.60-5.80); White Blood Count 6.8 X10*3/uL (4.8-10.8)
[2022-01-04 08:34] LABS: Anion Gap 14 (12-20); Blood Urea Nitrogen 11 mg/dL (9-16); Calcium 8.7 mg/dL (8.4-10.2); Carbon Dioxide 22 mmol/L (22-29); Chloride 104 mmol/L (96-108); Creatinine Clr Calc Pharmacy 177.1; Estimated Glomerular Filt Rate > 60; Glucose Random 86 mg/dL (60-115); Magnesium 1.8 mg/dL (1.6-2.6); Potassium 4.3 mmol/L (3.3-5.1); Sodium 136 mmol/L (135-145)
[2022-01-04] MEDS: Rivaroxaban 15 MG TABLET PO ×2 (10:05→17:43)
--- NOTE | 2022-01-04 10:27 | P.DS_ITS ---
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 Patient reported that while he was moving from the wheelchair he fell and had femur fracture on 12/16/2021, came to the ER; after evaluation and discussion with the orthopedics patient was sent home with follow-up in orthopedic clinic in 2 weeks. Patient mentioned that since then he has been mostly in the bed, lately noted to have shortness of breath in the exertion followed by dizziness and almost fainting attack; denies any fall or syncope this time.? Denies any chest pains.? Denies any fever chills cough or sputum production.? Mentions that his symptoms have been gradually worsening hence decided to come to the ER for further evaluation.? Denies any GI symptoms.? Review of all other systems is negative except mentioned above ER course: Per ER team patient exam was benign, has knee immobilizer in place; labs essentially benign; EKG noted to be sinus tachy; no evidence of ischemia; D- dimer elevated; CT chest showed possible pulmonary embolism.? Patient was started on Lovenox.? Venous duplex pending.? Admitted for further management. hospital course: Patient was admitted for acute right femoral vein DVT and non cental left sided PE. no signs of RV strain, no hypoxia. was given lovenox then transitioned to xarelto. he will continue 15mg bid for 3 weeks then change to 20mg daily, as this is a recurrent VTE, he likely will need indefiintie anticoagulation. for his recent right femoral fracture, case was d/w ortho. he should continue with knee imobilizer, NWB status, and follow up outpatient. 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 for his obesity, weight loss is recommended. Time Spent with Patient Time attestation: Total time spent providing and/or coordinating discharge services: Discharge coordination time: Greater than 30 minutes Quality: Safe Use of Opioids Does Pt have an Active Cancer Diagnosis on the Problem List?: No Quality: Stroke Does the patient have a stroke diagnosis?: No Physical Exam Vital Signs: Vital Signs: Last Vital Signs Temp 98.5 F 01/04/22 07:15 Pulse 76 01/04/22 07:15 Resp 14 01/04/22 07:15 BP 105/72 01/04/22 07:15 Pulse Ox 98 01/04/22 07:15 O2 Del Method 01/04/22 07:15 BMI result Body Mass Index 34.5 General: AO X 3, no acute distress Resp: CTA bilateral, no accessory muscles used CVS: S1,S2,RRR GI: soft, non tender, non distended Neuro: bilateral lower extremity weakness, alert Psych: appropriate affect, appropriate insight DS: Data Data Completed and Pending Labs on day of discharge: Laboratory Results - last 24 hr 01/03/22 01/03/22 01/03/22 15:08 15:08 15:08 WBC 9.5 RBC 5.25 Hgb 14.8 Hct 44.8 MCV 85.3 MCH 28.2 MCHC 33.0 RDW 12.8 Plt Count 567 H MPV 9.1 L Immature Gran % (Auto) 0.4 Neut % (Auto) 80.3 H Lymph % (Auto) 12.1 L [place] % (Auto) 6.8 Eos % (Auto) 0.1 Baso % (Auto) 0.3 Lymph # (Auto) 1.2 [place] # (Auto) 0.7 Eos # (Auto) 0.0 Baso # (Auto) 0.0 Abs Immat Gran (auto) 0.04 H Absolute Neuts (auto) 7.7 Absolute Nucleated RBC 0.000 Nucleated RBC % (auto) 0.0 D-Dimer High Sensitivty Sodium 135 Potassium 4.4 Chloride 99 Carbon Dioxide 20 L Anion Gap 20 BUN 14 Creatinine 0.72 Estim Creat Clear Calc 178.1 Estimated GFR > 60 Random Glucose 124 H Calcium 9.2 Magnesium 1.6 Total Bilirubin 1.2 H AST 17 ALT 14 Alkaline Phosphatase 110 Troponin I High Sens 4.9 B-Natriuretic Peptide < 10 Total Protein 7.2 Albumin 3.6 TSH COVID-19 ([facility]) COVID-19 Clin Com 01/03/22 01/03/22 01/03/22 15:08 18:05 18:05 WBC RBC Hgb Hct MCV MCH MCHC RDW Plt Count MPV Immature Gran % (Auto) Neut % (Auto) Lymph % (Auto) [place] % (Auto) Eos % (Auto) Baso % (Auto) Lymph # (Auto) [place] # (Auto) Eos # (Auto) Baso # (Auto) Abs Immat Gran (auto) Absolute Neuts (auto) Absolute Nucleated RBC Nucleated RBC % (auto) D-Dimer High Sensitivty 2599 Sodium Potassium Chloride Carbon Dioxide Anion Gap BUN Creatinine Estim Creat Clear Calc Estimated GFR Random Glucose Calcium Magnesium Total Bilirubin AST ALT Alkaline Phosphatase Troponin I High Sens B-Natriuretic Peptide Total Protein Albumin TSH 1.22 COVID-19 (SURYA) Negative COVID-19 Clin Com See Note 01/04/22 01/04/22 01/04/22 08:06 08:06 08:06 WBC 6.8 RBC 4.83 Hgb 13.6 L Hct 41.5 L MCV 85.9 MCH 28.2 MCHC 32.8 RDW 13.0 Plt Count 527 H MPV 9.1 L Immature Gran % (Auto) 0.6 H Neut % (Auto) 55.2 Lymph % (Auto) 35.0 [place] % (Auto) 8.0 Eos % (Auto) 0.6 Baso % (Auto) 0.6 Lymph # (Auto) 2.4 [place] # (Auto) 0.5 Eos # (Auto) 0.0 Baso # (Auto) 0.0 Abs Immat Gran (auto) 0.04 H Absolute Neuts (auto) 3.8 Absolute Nucleated RBC 0.000 Nucleated RBC % (auto) 0.0 D-Dimer High Sensitivty Sodium 136 Potassium 4.3 Chloride 104 Carbon Dioxide 22 Anion Gap 14 BUN 11 Creatinine 0.72 Estim Creat Clear Calc 177.1 Estimated GFR > 60 Random Glucose 86 Calcium 8.7 Magnesium 1.8 Total Bilirubin AST ALT Alkaline Phosphatase Troponin I High Sens B-Natriuretic Peptide Total Protein Albumin TSH COVID-19 ([facility]) COVID-19 Clin Com Discharge Plan Discharge Patient Disposition: Home, Self-Care Discharge Diagnosis: dvt/pe Referrals: Maria Esther Morales [Primary Care Provider] - 1 Week Discharge Medications: New Xarelto 15 mg Tablet 15 mg PO BIDWM Qty: 42 0RF Rx Instructions: 15mg bid for 3 weeks, then change to 20mg daily Continued baclofen 5 mg Tablet 0 mg PO BID Rx Instructions: WILL TRY TO CONFIRM DOSE WITH PHARMACY cholecalciferol (vitamin D3) 10 mcg (400 unit) Tablet 10 mcg PO DAILY oxycodone 5 mg tablet 5 mg PO Q6H PRN (Reason: pain) Qty: 14 0RF Label Comments: PATIENT HAD A SMALL SUPPLY FOR HIS BROKEM LEG, HAS SINCE RUN OUT Rx Instructions: Partial Fill upon patient request. Discharge Orders: Discharge Order (Routine); Ordered 01/04/22 Ordered By: Julian Greenberg Diet: Advance to usual diet Activity on Discharge: As tolerated Stand Alone Forms: Patient Portal Discharge page Care Plan Goals: prevent progression of vte Health Concerns: dvt/pe, Plan of Treatment: xarelto 15mg twice daily for 3 weeks then change to 20mg daily, follow up with ortho and pcp Assessment: see above
--- NOTE | 2022-01-04 11:34 | MHC.CM.PN ---
PER CONVERSATION WITH [facility] PHARMACIST TECH, PATIENT'S MEDICATION (XARELTO) IS FULLY COVERED; NO COPAY CAN BE PICKED UP AT [facility] IN [place] H[facility]PITALIST AND PATIENT AWARE
--- NOTE | 2022-01-04 11:44 | PHA.MEDREC ---
MED REC COMPLETE, WAS ABLE TO VERIFY STRENGTH OF MEDS WITH [facility] Pharmacy Consult ? Medication Reconciliation Pharmacy has completed the medication reconciliation.
--- NOTE | 2022-01-04 13:29 | PC.NURSE ---
dietary notified of pt restrictions- fish veggies and fruit
[2022-01-04 13:39] VITALS: BP 119/75; PULSE 78; RESP 16; O2SAT 98
[2022-01-04 15:42] VITALS: BP 119/75; PULSE 82; TEMP 37; O2SAT 99
--- NOTE | 2022-01-04 18:27 | PC.NURSE ---
ems arrived- need to await bariatric stretcher
--- NOTE | 2022-01-05 08:33 | MHC.CM.PN ---
PT WILL DC HOME TODAY WITH NO SERVICES PER PREVIOUS CM NOTE, PTS MEDICATIONS WILL BE COVERED BY INSURANCE PT TO ARRANGE TRANSPORT
== END 2022-01-04 20:00 | disposition home or self-care (01) | DRG 197 ==
LOC: HO.ED 15:54 → HO.EDOVER 20:15
PROVIDERS: Nurse Practitioner Family; Admitting Provider Hospitalist; Emergency Provider Emergency Medicine; PCP Internal Medicine; Visit Provider Internal Medicine
DX: I82.411 Acute embolism and thrombosis of right femoral vein (principal); I26.99 Other pulmonary embolism without acute cor pulmonale; G61.0 Guillain-Barre syndrome; G82.20 Paraplegia, unspecified; E66.9 Obesity, unspecified; Z68.34 Body mass index [BMI] 34.0-34.9, adult; Z20.822 Contact with and (suspected) exposure to COVID-19; Z99.3 Dependence on wheelchair; Z79.01 Long term (current) use of anticoagulants; Z79.899 Other long term (current) drug therapy
CPT/HCPCS: 36415; 71275; 80048; 80053; 83735; 83880; 84443; 84484; 85025; 85379; 87635; 93005; 93971; 96360; 96372; 99219; 99285; J1650; Q9967

== ENCOUNTER 2022-05-01 06:28 | Emergency (ER) | payer OTHER, SELFPAY ==
--- NOTE | ~2022-05-01 | CT_ITS ---
EXAMINATION: CT HEAD WITHOUT CONTRAST CLINICAL INFORMATION: Dizziness. COMPARISON: None TECHNIQUE: Contiguous axial imaging was performed from the skull base to vertex without intravenous administration of contrast. Coronal and sagittal reformatted images were obtained. This CT examination was performed using dose optimization techniques as appropriate, variously including the following: *Automated exposure control *Adjustment of mA and/or kV according to patient size (this includes techniques or standardized protocols for targeted exams where dose is matched to indication/reason for exam; i.e. extremities or head) *Use of iterative reconstruction technique DLP: 1240 mGy-cm FINDINGS: The cortical sulci are normal. The lateral ventricles are symmetrical. The third and fourth ventricles are in their normal midline position. The basilar and prepontine cisterns are unremarkable. There is no acute intra or extracerebral abnormality. There is no mass effect or midline shift. Sections through the bony calvarium are unremarkable. The paranasal sinuses show retention cyst versus inflammatory polyp along the anterior margin of the right sphenoid sinus measuring 1.8 cm. The bony orbits and orbital contents are unremarkable. CT/CT head/brain wo IV con IMPRESSION: No acute intracranial pathology.
--- NOTE | ~2022-05-01 | XR_ITS ---
EXAMINATION: XR CHEST CLINICAL INFORMATION: Dizziness. COMPARISON: Chest CTA performed today. TECHNIQUE: Frontal view of the chest was obtained. FINDINGS: No significant abnormality is noted involving the heart, lungs, mediastinum, bony thorax or soft tissues. XR/XR chest 1V IMPRESSION: No acute cardiopulmonary process.
--- NOTE | ~2022-05-01 | CT_ITS ---
EXAMINATION: CT ANGIOGRAM OF THE CHEST WITH AND WITHOUT CONTRAST (CT PULMONARY ANGIOGRAM FOR PE) CLINICAL INFORMATION: Chest pressure, dizziness, off Xarelto for 4 days COMPARISON: Chest CTA dated 01/03/2022 TECHNIQUE: Prior to contrast administration, noncontrast localization images were obtained. Subsequently, multidetector volumetric imaging was performed from the thoracic inlet to below the diaphragms following the administration of 80 mL Omnipaque 350 intravenous contrast. No contrast reaction reported Sagittal, coronal, and MIP oblique sagittal reformatted images were obtained on the CT workstation, uploaded to PACS, and reviewed. This CT examination was performed using dose optimization techniques as appropriate, variously including the following: *Automated exposure control *Adjustment of mA and/or kV according to patient size (this includes techniques or standardized protocols for targeted exams where dose is matched to indication/reason for exam; i.e. extremities or head) *Use of iterative reconstruction technique Total exam dose-length product 1240 mGy-cm FINDINGS: QUALITY OF STUDY/CONTRAST BOLUS: Satisfactory bolus. Mild artifact and patient body habitus causes some limitation. PULMONARY ARTERIES: No central or segmental pulmonary emboli. THORACIC AORTA: Ascending aorta measures up to 4.6 cm in AP dimension (image 21, series 15). LUNGS/PLEURA/AIRWAYS: No focal consolidation, nodules or masses. MEDIASTINUM: The visualized thyroid gland appears prominent without definitive nodule. Normal heart size. No pericardial effusion. No hilar or mediastinal lymphadenopathy. No evidence of septal bowing or right heart strain. CHEST WALL/AXILLA: No axillary or internal mammary lymphadenopathy. Mild bilateral gynecomastia. OSSEOUS STRUCTURES: No acute or suspicious osseous abnormality. UPPER ABDOMEN: Unremarkable. No reflux of contrast into the hepatic veins to suggest elevated right heart pressures. CT/CT angio chest PE protocol IMPRESSION: 1. No evidence for pulmonary embolism. 2. No acute cardiopulmonary process. 3. Ascending aortic aneurysm measuring up to 4.6 cm. 4. Mild bilateral gynecomastia. 5. The visualized thyroid appears prominent without definitive nodule. Correlate with thyroid function tests. VTE: Negative.
--- NOTE | 2022-05-01 06:31 | ECG_ITS ---
Test Reason : chest pressure Blood Pressure : / mmHG Vent. Rate : 070 BPM Atrial Rate : 070 BPM P-R Int : 132 ms QRS Dur : 108 ms QT Int : 416 ms P-R-T Axes : 010 002 030 degrees QTc Int : 449 ms Normal sinus rhythm Normal ECG When compared with ECG of 03-JAN-2022 15:05, Vent. rate has decreased BY 56 BPM Referred By: Generic ED Physician Electronically Signed By:Arnoldo Tidwell
[2022-05-01 06:37] VITALS: BP 144/103; PULSE 80; O2SAT 100; BMI 44.1
[2022-05-01 06:50] VITALS: BP 117/60; PULSE 70; RESP 13; TEMP 36.9; O2SAT 97
[2022-05-01 06:54] LABS: MANUAL DIFF FLAG NO
[2022-05-01 06:55] LABS: Basophils Percent Auto 0.5 % (0-2); Eosinophils Absolute Auto 0.1 X10*3/uL (0.0-0.4); Eosinophils Percent Auto 2.1 % (0-4); Hematocrit 46.1 % (42.0-52.0); Hemoglobin 14.6 g/dl (14.0-18.0); Imm Gran Abs Auto 0.01 X10*3/uL (0.00-0.03); Imm Gran Pct Auto 0.2 % (0.0-0.4); Lymphocytes Absolute Auto 2.9 X10*3/uL (1.2-4.9); Lymphocytes Percent Auto 46.2 % (20-40); Mean Corpuscular HGB Conc 31.7 g/dl (31.0-36.0); Mean Corpuscular Hemoglobin 27.9 pg (27.0-33.0); Mean Platelet Volume 9.2 fL (9.4-12.4); Monocytes Absolute Auto 0.6 X10*3/uL (0.1-1.2); Monocytes Percent Auto 8.9 % (2-11); Neutrophils Absolute Auto 2.6 x10*3/uL (2.0-8.3); Neutrophils Percent Auto 42.1 % (45-73); Platelet Count 359 X10*3/uL (160-400); Red Blood Count 5.24 X10*6/uL (4.60-5.80); White Blood Count 6.2 X10*3/uL (4.8-10.8)
--- NOTE | 2022-05-01 07:03 | ED.CHESTPAIN ---
HPI - Chest Pain General Chief Complaint: Chest Pain Stated Complaint: Chest Pressure/Dizziness Time Seen by Provider: 05/01/22 06:37 Source: patient Mode of arrival: EMS History of Present Illness HPI narrative: 51-year-old male with ongoing Guillain-Brisbin , and then broke his leg and then developed to PE for which he was diagnosis here in the emergency room as started on Xarelto. He comes in today with increased dizziness and chest pressure associated with not having taken his Xarelto for 4 days because he was unable to get into is primary care provider who declined to prescribe his Xarelto until he had been seen. Related Data Home Medications Medication Instructions Recorded Confirmed baclofen 10 mg tablet 10 mg PO BID 01/04/22 01/04/22 cholecalciferol (vitamin D3) 25 25 mcg PO DAILY 01/04/22 01/04/22 mcg (1,000 unit) tablet Previous Rx's Medication Instructions Recorded oxycodone 5 mg tablet 5 mg PO Q6H PRN pain #14 tabs 12/16/21 rivaroxaban 15 mg tablet (Xarelto) 15 mg PO BIDWM #42 tabs 01/04/22 rivaroxaban 20 mg tablet (Xarelto) 20 mg PO DAILY #90 tabs 01/20/22 rivaroxaban 20 mg tablet (Xarelto) 20 mg PO DAILY 2 months #60 tabs 05/01/22 Allergies Allergy/AdvReac Type Severity Reaction Status Date / Time No Known Allergies Allergy Verified 12/16/21 09:33 Review of Systems Review of Systems: Pertinent positives and negatives as stated in HPI 10 point review of systems is otherwise negative. [facility] Past Medical History Source: nursing notes reviewed Social History Social History Alcohol intake: current Alcohol intake frequency: holidays/special occasions only Patient Tobacco Use Status: Never used Tobacco Substance Use Type: Marijuana Advance Directives: Yes Advance Directives on File: Yes Advance Directives Date on File: 12/16/21 Physical Exam Vital Signs: Vital Signs: Last Vital Signs Temp 98.4 F 05/01/22 06:50 Pulse 71 05/01/22 08:59 Resp 12 05/01/22 08:59 BP 134/86 05/01/22 08:59 Pulse Ox 98 05/01/22 08:59 O2 Del Method 05/01/22 08:59 BMI result Body Mass Index 44.1 VITAL SIGNS: Reviewed. GENERAL: Well developed, well nourished, in no acute distress. HEAD: Normocephalic/atraumatic EYES: PERRLA, EOMI EARS: Ext canals without abnormality OROPHARYNX: no oral lesions noted, posterior pharynx clear LUNGS: Normal breath sounds. No adventitious sounds or accessory muscle use. SpO2<97> CARDIOVASCULAR: Regular rate and rhythm without noted murmurs, no JVD or lower extremity edema. ABDOMEN: Soft, non-tender, non-distended with bowel sounds. MUSCULOSKELETAL: No tenderness, deformities, or effusions noted on gross inspection. EXTREMITIES: No cyanosis, clubbing or edema. SKIN: Inspection of the skin reveals no rashes NEUROLOGIC: Alert and oriented x 4. Strength and sensation to light touch were grossly intact x 2, patient does not walk at baseline due to underlying neurologic condition. Course Course Course Narrative: This is a 51-year-old male with history and clinical presentation most consistent with concerns for increasing clot load but does not exhibit tachycardia or significant shortness of breath at this time. However due to BMI and known PE history as well as being off of anticoagulation he will go straight to rule out of increased clot load as well as getting a CT of the head given the fact that he again has been on anticoagulation although there is no fall history he is complaining of dizziness as well. He denies any personal family history cardiac disease and has been able to come off of prior hypertensive/diabetic medication after weight loss. Review of all investigations negative for acute PE, patient received 15 mg of Xarelto here in the emergency room and making significant attempts to get outpatient follow-up so this patient can continue to receive the Xarelto. I have involved case management additionally. After extensive discussion with the patient, Dr. Stewart's office to arrange for outpatient follow-up, community navigator is supposed to set up appropriate ambulance transportation for the patient to get to the office given his underlying neurologic condition in combination with a history of femur fracture. I will discharge the patient with enough Xarelto to cover until June 09, patient's appointment is for June 04. Reevaluation(s) Reevaluation #1: I discussed with [facility] regarding the read of ascending aorta aneurysm...which he will addend to say it is 4cm and last time 3.9cm but motion artifact and overall feels this is not significantly different from prior imaging study. Time: 13:10 Medications Administered Discontinued Medications Generic Name Dose Route Start Last Admin Trade Name Manny PRN Reason Stop Dose Admin Iohexol 65 ml 05/01/22 08:07 05/01/22 08:08 Iohexol 350 Mg/Ml 100 Ml Infus..Btl IV 05/01/22 08:08 65 ml ONCE ONE Administration Rivaroxaban 15 mg 05/01/22 09:39 05/01/22 10:57 Rivaroxaban 15 Mg Tablet PO 05/01/22 09:40 15 mg ONCE ONE Administration MDM - Chest Pain Lab Data Result diagrams: 05/01/22 06:49 05/01/22 06:49 Labs: Lab Results 05/01/22 05/01/22 05/01/22 Range/Units 06:49 06:49 06:49 WBC 6.2 (4.8-10.8) X10*3/uL RBC 5.24 (4.60-5.80) X10*6/uL Hgb 14.6 (14.0-18.0) g/dl Hct 46.1 (42.0-52.0) % MCV 88.0 (80.0-98.0) fL MCH 27.9 (27.0-33.0) pg MCHC 31.7 (31.0-36.0) g/dl RDW 14.0 (11.0-16.0) % Plt Count 359 D (160-400) X10*3/uL MPV 9.2 L (9.4-12.4) fL Immature Gran % (Auto) 0.2 (0.0-0.4) % Neut % (Auto) 42.1 L (45-73) % Lymph % (Auto) 46.2 H (20-40) % [place] % (Auto) 8.9 (2-11) % Eos % (Auto) 2.1 (0-4) % Baso % (Auto) 0.5 (0-2) % Lymph # (Auto) 2.9 (1.2-4.9) X10*3/uL [place] # (Auto) 0.6 (0.1-1.2) X10*3/uL Eos # (Auto) 0.1 (0.0-0.4) X10*3/uL Baso # (Auto) 0.0 (0.0-0.2) X10*3/uL Abs Immat Gran (auto) 0.01 (0.00-0.03) X10*3/uL Absolute Neuts (auto) 2.6 (2.0-8.3) x10*3/uL Absolute Nucleated RBC 0.000 (0.0-0.012) X10*3/uL Nucleated RBC % (auto) 0.0 (0.0-0.2) /100WBC Sodium 137 (135-145) mmol/L Potassium 3.9 (3.3-5.1) mmol/L Chloride 104 (96-108) mmol/L Carbon Dioxide 26 (22-29) mmol/L Anion Gap 11 L (12-20) BUN 18 H (9-16) mg/dL Creatinine 0.85 (0.5-1.4) mg/dL Estim Creat Clear Calc 157.0 Estimated GFR > 60 Random Glucose 115 (60-115) mg/dL Calcium 9.6 D (8.4-10.2) mg/dL Troponin I High Sens < 3.5 (<3.5-35.0) ng/L Urine Color Urine Appearance Urine pH (5.0-9.0) Ur Specific [place] (1.005-1.025) Urine Protein (Neg-Trace) mg/dL Urine Glucose (UA) (Negative) mg/dL Urine Ketones (Negative) mg/dL Urine Blood (Negative) Urine Nitrite (Negative) Ur Leukocyte Esterase (Negative) COVID-19 ([facility]YA) (Negative) COVID-19 Clin Com 05/01/22 05/01/22 Range/Units 06:49 07:31 WBC (4.8-10.8) X10*3/uL RBC (4.60-5.80) X10*6/uL Hgb (14.0-18.0) g/dl Hct (42.0-52.0) % MCV (80.0-98.0) fL MCH (27.0-33.0) pg MCHC (31.0-36.0) g/dl RDW (11.0-16.0) % Plt Count (160-400) X10*3/uL MPV (9.4-12.4) fL Immature Gran % (Auto) (0.0-0.4) % Neut % (Auto) (45-73) % Lymph % (Auto) (20-40) % [place] % (Auto) (2-11) % Eos % (Auto) (0-4) % Baso % (Auto) (0-2) % Lymph # (Auto) (1.2-4.9) X10*3/uL [place] # (Auto) (0.1-1.2) X10*3/uL Eos # (Auto) (0.0-0.4) X10*3/uL Baso # (Auto) (0.0-0.2) X10*3/uL Abs Immat Gran (auto) (0.00-0.03) X10*3/uL Absolute Neuts (auto) (2.0-8.3) x10*3/uL Absolute Nucleated RBC (0.0-0.012) X10*3/uL Nucleated RBC % (auto) (0.0-0.2) /100WBC Sodium (135-145) mmol/L Potassium (3.3-5.1) mmol/L Chloride (96-108) mmol/L Carbon Dioxide (22-29) mmol/L Anion Gap (12-20) BUN (9-16) mg/dL Creatinine (0.5-1.4) mg/dL Estim Creat Clear Calc Estimated GFR Random Glucose (60-115) mg/dL Calcium (8.4-10.2) mg/dL Troponin I High Sens (<3.5-35.0) ng/L Urine Color Yellow Urine Appearance Clear Urine pH 5.0 (5.0-9.0) Ur Specific [place] 1.020 (1.005-1.025) Urine Protein Negative (Neg-Trace) mg/dL Urine Glucose (UA) Negative (Negative) mg/dL Urine Ketones Negative (Negative) mg/dL Urine Blood Negative (Negative) Urine Nitrite Negative (Negative) Ur Leukocyte Esterase Negative (Negative) COVID-19 (SURYA) Negative (Negative) COVID-19 Clin Com See Note ECG Data ECG #1: Prior ECG tracings: available for review Interpretation: Normal sinus rhythm, HR-70 no STEMI, MA/QTC are within normal limits. Critical Care Time Critical Care Time Critical Care Time: Yes Total Critical Care Time: 60 Attestation: I personally attest to this time spent taking care of the patient. Discharge Plan Discharge Clinical Impression: DVT (deep venous thrombosis), Guillain-Brisbin syndrome, Pulmonary embolism, History of femur fracture, Chest pain Patient Disposition: Home, Self-Care Instructions: Deep Vein Thrombosis (ED) Additional Instructions: 1. Resume all home medications as prescribed. 2. You have an appointment with your primary care provider on June 04 at 13:30. 3. I have provided you with a prescription for Xarelto through June 09. Return to the ER for worsening symptoms. Prescriptions: New Xarelto 20 mg tablet 20 mg PO DAILY 60 Days Qty: 60 0RF Rx Instructions: must administer with evening meal No Action Xarelto 15 mg Tablet 15 mg PO BIDWM Qty: 42 0RF Rx Instructions: 15mg bid for 3 weeks, then change to 20mg daily baclofen 10 mg Tablet 10 mg PO BID cholecalciferol (vitamin D3) 25 mcg (1,000 unit) Tablet 25 mcg PO DAILY Xarelto 20 mg tablet 20 mg PO DAILY Qty: 90 0RF Rx Instructions: must administer with evening meal, start after finishing the 3 weeks of 15mg bid oxycodone 5 mg tablet 5 mg PO Q6H PRN (Reason: pain) Qty: 14 0RF Label Comments: PATIENT HAD A SMALL SUPPLY FOR HIS BROKEM LEG, HAS SINCE RUN OUT Rx Instructions: Partial Fill upon patient request. Referrals: Ramiro Stewart MD [Physician] - 06/04/22 1:30 pm
[2022-05-01 07:13] LABS: Anion Gap 11 (12-20); Blood Urea Nitrogen 18 mg/dL (9-16); Calcium 9.6 mg/dL (8.4-10.2); Carbon Dioxide 26 mmol/L (22-29); Chloride 104 mmol/L (96-108); Estimated Glomerular Filt Rate > 60; Glucose Random 115 mg/dL (60-115); Potassium 3.9 mmol/L (3.3-5.1); Sodium 137 mmol/L (135-145)
[2022-05-01 07:26] LABS: Troponin-I High Sensitivity < 3.5 ng/L (<3.5-35.0)
[2022-05-01 07:30] LABS: COVID-19 Test Negative (Negative)
[2022-05-01 07:42] LABS: Appearance Urine Clear; Color Urine Yellow; Glucose Urine UA Negative (Negative); Leukocyte Esterase Urine Negative (Negative); Nitrite Urine Negative (Negative); Urine Blood Negative (Negative); Urine Ketones Negative (Negative); Urine Protein Negative (Neg-Trace)
[2022-05-01] MEDS: iohexoL 350 MG/ML 100 ML INFUS..BTL 65 ML IV (08:08)
[2022-05-01 08:59] VITALS: BP 134/86; PULSE 71; RESP 12; O2SAT 98
[2022-05-01] MEDS: Rivaroxaban 15 MG TABLET PO (10:57)
--- NOTE | 2022-05-01 11:49 | PC.NURSE ---
spoke with crew scheduler at [facility] in [place] and an appt was made for him with his PCP for Jun 04 at 1:30 pm nelly MUSA from will attempt to help with transportation for him
--- NOTE | 2022-05-01 14:20 | MHC.CM.ED ---
Received case management consult from Dr Ly. Patient came to the ER due to chest pain. Work up essentially negative except patient is supposed to be on Xarelto due to a PE. Patient does not see PCP until May and is requesting refill on this medication. Dr Ly is skeptical about ordering this. Patient is active with [facility] [employer]. T/W spoke with Rover[employer] of [email or web address]. Patient was supposed to have a PCP appointment with [facility] in February. Patient did not make this appointment because when the office called to confirm transportation, it was changed to a wheel chair van. Patient can't take a wheel chair van due to obesity. Patient also recently had a leg fracture because he fell out off the chair van ramp. BLS is the only safe way for patient to transport. Next available appointment at PCP's office was in May. Virtual appointment is not available because he is not an established patient at their office. Dr Ly aware and will order Xarelto for 1 month. [facility] booked at 6pm to transport patient home. Continue to monitor for d/c needs.
--- NOTE | 2022-05-01 18:12 | PC.NURSE ---
pt was moved into the [facility] as medically cleared and waiting for an ambulance to come and bring back home
== END 2022-05-01 18:13 | disposition home or self-care (01) ==
PROVIDERS: Emergency Provider Student in an Organized Health Care Education/Training Program
DX: I26.99 Other pulmonary embolism without acute cor pulmonale (principal); I82.409 Acute embolism and thrombosis of unspecified deep veins of unspecified lower extremity; R07.89 Other chest pain; R42 Dizziness and giddiness; G61.0 Guillain-Barre syndrome; Z20.822 Contact with and (suspected) exposure to COVID-19; Z79.899 Other long term (current) drug therapy
CPT/HCPCS: 70450; 71045; 71275; 80048; 81003; 84484; 85025; 87635; 93005; 99284; Q9967

== ENCOUNTER 2022-12-29 23:17 | Emergency (ER) | payer OTHER, SELFPAY ==
--- NOTE | 2022-12-29 | ECG_ITS ---
Test Reason : PALPITATIONS Blood Pressure : / mmHG Vent. Rate : 117 BPM Atrial Rate : 117 BPM P-R Int : 170 ms QRS Dur : 110 ms QT Int : 338 ms P-R-T Axes : 033 -06 031 degrees QTc Int : 471 ms Sinus tachycardia Otherwise normal ECG When compared with ECG of 01-MAY-2022 06:39, Vent. rate has increased BY 47 BPM Referred By: Generic ED Physician Electronically Signed By:RANDY TORRES
[2022-12-29 23:26] VITALS: BP 122/80; BP 154/73; PULSE 120; RESP 14; TEMP 37.1; O2SAT 99; BMI 45.6
[2022-12-30 00:26] LABS: MANUAL DIFF FLAG NO
[2022-12-30 00:28] LABS: Basophils Percent Auto 0.3 % (0-2); Eosinophils Percent Auto 0.3 % (0-4); Hematocrit 45.2 % (42.0-52.0); Hemoglobin 14.4 g/dl (14.0-18.0); Imm Gran Abs Auto 0.03 X10*3/uL (0.00-0.03); Imm Gran Pct Auto 0.3 % (0.0-0.4); Lymphocytes Absolute Auto 1.4 X10*3/uL (1.2-4.9); Lymphocytes Percent Auto 16.3 % (20-40); Mean Corpuscular HGB Conc 31.9 g/dl (31.0-36.0); Mean Corpuscular Hemoglobin 28.4 pg (27.0-33.0); Mean Corpuscular Volume 89.2 fL (80.0-98.0); Mean Platelet Volume 9.3 fL (9.4-12.4); Monocytes Absolute Auto 0.6 X10*3/uL (0.1-1.2); Neutrophils Absolute Auto 6.6 x10*3/uL (2.0-8.3); Neutrophils Percent Auto 75.8 % (45-73); Platelet Count 380 X10*3/uL (160-400); Red Blood Count 5.07 X10*6/uL (4.60-5.80); Red Cell Distribution Width 13.6 % (11.0-16.0); White Blood Count 8.7 X10*3/uL (4.8-10.8)
--- NOTE | 2022-12-30 00:42 | ED_ITS ---
HPI - General Adult General Chief complaint: General Medical Stated complaint: Anxiety, elevated HR Time Seen by Provider: 12/30/22 00:15 Source: patient Mode of arrival: EMS Limitations: no limitations History of Present Illness HPI narrative: PATIENT WITH HISTORY OF DEPRESSION COMPLAINING OF PALPITATION OFF AND ON ALL DAY TODAY NO SYNCOPE EPISODE NO CHEST PAIN ALSO FEEL DEPRESSED WHICH IS GOING ON FOR A WHILE NO SUICIDAL IDEATION HAS A THERAPIST HE FOLLOWS PATIENT'S XARELTO FOR PE SINCE 05/21 Related Data Home Medications Medication Instructions Recorded Confirmed baclofen 10 mg tablet 10 mg PO BID 01/04/22 01/04/22 cholecalciferol (vitamin D3) 25 25 mcg PO DAILY 01/04/22 01/04/22 mcg (1,000 unit) tablet Previous Rx's Medication Instructions Recorded oxycodone 5 mg tablet 5 mg PO Q6H PRN pain #14 tabs 12/16/21 rivaroxaban 15 mg tablet (Xarelto) 15 mg PO BIDWM #42 tabs 01/04/22 rivaroxaban 20 mg tablet (Xarelto) 20 mg PO DAILY #90 tabs 01/20/22 rivaroxaban 20 mg tablet (Xarelto) 20 mg PO DAILY 2 months #60 tabs 05/01/22 Allergies Allergy/AdvReac Type Severity Reaction Status Date / Time No Known Allergies Allergy Verified 12/29/22 23:48 Review of Systems Review of Systems: Yes all other systems are reviewed and are negative [facility] Social History Social History Alcohol intake: current Alcohol intake frequency: holidays/special occasions only Patient Tobacco Use Status: Never used Tobacco Substance Use Type: Marijuana Advance Directives: Yes Advance Directives on File: Yes Advance Directives Date on File: 12/16/21 Physical Exam ED Vital Signs: Vital Signs - 24 hr 12/29/22 23:26 12/30/22 01:45 Temperature 98.8 F Pulse Rate 120 H 121 H Respiratory Rate 14 18 Blood Pressure 154/73 H 122/96 H Pulse Oximetry 99 97 Oxygen Delivery Method Room Air Room Air BMI result Body Mass Index 45.6 Appearance: Alert. Oriented X3. No acute distress. Eyes: PERRLA, No Nystagmus ENT: Pharynx normal. Oral Mucosa moist Neck: Normal inspection. Neck supple. CVS: Sinus tachycardic no murmur rub Pulses normal. Respiratory: No respiratory distress. Equal air entry bilateral, no wheezing/rales/rhonchi Abdomen: Soft and nontender. Bowel sounds are present, no mass palpable, no CVA tenderness Skin: Skin warm and dry. Normal skin color. Normal skin turgor. Extremities: No lower extremity edema. No calf tenderness psych: Feel depressed denies any SI or HI Neuro: Oriented X 3. No motor deficit. No sensory deficit.No cerebellar signs , cranial nerves II-XII intact Medications Administered Discontinued Medications Generic Name Dose Route Start Last Admin Trade Name Freq PRN Reason Stop Dose Admin Sodium Chloride 1,000 mls @ 999 mls/hr 12/30/22 00:28 12/30/22 01:33 Ns IV 12/30/22 01:28 999 mls/hr .Q1H1M ONE Administration Metoprolol Tartrate 5 mg 12/30/22 01:39 12/30/22 01:47 Metoprolol Tartrate 5 Mg/5 Ml Vial IVPUSH 12/30/22 01:40 5 mg ONCE ONE Administration Medical Decision Making Medical Decision Making [facility] Narrative: Patient with sinus tachycardia with anxiety denies any SI at this time will give Lopressor discharge patient home patient has a follow-up plan with therapist patient's heart rate improved after IV fluids and Lopressor sinus rhythm discharge patient home Lab Data [facility] Lab Attestation statement: I reviewed the patient's lab results. 12/30/22 00:20 12/30/22 00:20 Labs: Lab Results 12/30/22 12/30/22 12/30/22 Range/Units 00:20 00:20 00:20 WBC 8.7 (4.8-10.8) X10*3/uL RBC 5.07 (4.60-5.80) X10*6/uL Hgb 14.4 (14.0-18.0) g/dl Hct 45.2 (42.0-52.0) % MCV 89.2 (80.0-98.0) fL MCH 28.4 (27.0-33.0) pg MCHC 31.9 (31.0-36.0) g/dl RDW 13.6 (11.0-16.0) % Plt Count 380 (160-400) X10*3/uL MPV 9.3 L (9.4-12.4) fL Immature Gran % (Auto) 0.3 (0.0-0.4) % Neut % (Auto) 75.8 H (45-73) % Lymph % (Auto) 16.3 L (20-40) % Mcdonald % (Auto) 7.0 (2-11) % Eos % (Auto) 0.3 (0-4) % Baso % (Auto) 0.3 (0-2) % Lymph # (Auto) 1.4 (1.2-4.9) X10*3/uL Mcdonald # (Auto) 0.6 (0.1-1.2) X10*3/uL Eos # (Auto) 0.0 (0.0-0.4) X10*3/uL Baso # (Auto) 0.0 (0.0-0.2) X10*3/uL Abs Immat Gran (auto) 0.03 (0.00-0.03) X10*3/uL Absolute Neuts (auto) 6.6 (2.0-8.3) x10*3/uL Absolute Nucleated RBC 0.000 (0.0-0.012) X10*3/uL Nucleated RBC % (auto) 0.0 (0.0-0.2) /100WBC Sodium 139 (135-145) mmol/L Potassium 4.4 (3.3-5.1) mmol/L Chloride 104 (96-108) mmol/L Carbon Dioxide 21 L (22-29) mmol/L Anion Gap 18 (12-20) BUN 15 (9-16) mg/dL Creatinine 0.89 (0.5-1.4) mg/dL Estim Creat Clear Calc 164.2 Estimated GFR > 60 Random Glucose 148 H (60-115) mg/dL Calcium 9.7 (8.4-10.2) mg/dL Total Bilirubin 0.5 (0.0-1.0) mg/dL AST 17 (5-37) U/L ALT 21 (0-40) U/L Alkaline Phosphatase 52 (39-117) U/L Troponin I High Sens 5.3 D (<3.5-35.0) ng/L Total Protein 8.1 H (6.5-8.0) g/dL Albumin 3.8 (3.5-5.0) g/dL TSH 1.29 (0.32-4.0) uIU/mL Discharge Plan Discharge Clinical Impression: Sinus tachycardia, Anxiety with depression Patient Disposition: Home, Self-Care Instructions: Anxiety (ED), Tachycardia (ED) Additional Instructions: Drink plenty of fluids Continue medication Follow-up with your PCP/therapist Prescriptions: No Action Xarelto 15 mg Tablet 15 mg PO BIDWM Qty: 42 0RF Rx Instructions: 15mg bid for 3 weeks, then change to 20mg daily baclofen 10 mg Tablet 10 mg PO BID cholecalciferol (vitamin D3) 25 mcg (1,000 unit) Tablet 25 mcg PO DAILY Xarelto 20 mg tablet 20 mg PO DAILY Qty: 90 0RF Rx Instructions: must administer with evening meal, start after finishing the 3 weeks of 15mg bid oxycodone 5 mg tablet 5 mg PO Q6H PRN (Reason: pain) Qty: 14 0RF Patient Comments: PATIENT HAD A SMALL SUPPLY FOR HIS BROKEM LEG, HAS SINCE RUN OUT Rx Instructions: Partial Fill upon patient request. Xarelto 20 mg tablet 20 mg PO DAILY 60 Days Qty: 60 0RF Rx Instructions: must administer with evening meal
[2022-12-30 00:48] LABS: Alanine Aminotransferase 21 U/L (0-40); Albumin Level 3.8 g/dL (3.5-5.0); Alkaline Phosphatase 52 U/L (39-117); Anion Gap 18 (12-20); Aspartate Amino Transferase 17 U/L (5-37); Bilirubin Total 0.5 mg/dL (0.0-1.0); Blood Urea Nitrogen 15 mg/dL (9-16); Calcium 9.7 mg/dL (8.4-10.2); Carbon Dioxide 21 mmol/L (22-29); Chloride 104 mmol/L (96-108); Creatinine Clr Calc Pharmacy 164.2; Estimated Glomerular Filt Rate > 60; Glucose Random 148 mg/dL (60-115); Potassium 4.4 mmol/L (3.3-5.1); Sodium 139 mmol/L (135-145); Total Protein 8.1 g/dL (6.5-8.0)
[2022-12-30 01:02] LABS: Thyroid Stimulating Hormone 1.29 uIU/mL (0.32-4.0)
[2022-12-30] MEDS: 0.9 % Sodium Chloride 1,000 ML 999 ML IV (01:33)
[2022-12-30 01:40] LABS: Troponin-I High Sensitivity 5.3 ng/L (<3.5-35.0)
[2022-12-30 01:45] VITALS: BP 122/96; PULSE 121; RESP 18; O2SAT 97
[2022-12-30] MEDS: Metoprolol Tartrate 5 MG/5 ML VIAL IVPUSH (01:47)
[2022-12-30 03:31] VITALS: PULSE 96; RESP 18
[2022-12-30 03:32] VITALS: BP 121/90; O2SAT 98
--- NOTE | 2022-12-30 03:45 | MHC.EDTECH ---
Call out to asha at [phone] to book transport for pt back home, estimated eta given was [phone]
== END 2022-12-30 06:53 | disposition home or self-care (01) ==
PROVIDERS: Emergency Provider Internal Medicine
DX: R00.0 Tachycardia, unspecified (principal); F41.8 Other specified anxiety disorders; Z86.711 Personal history of pulmonary embolism; Z79.01 Long term (current) use of anticoagulants
CPT/HCPCS: 36415; 80053; 84443; 84484; 85025; 93005; 96361; 96374; 99284

== ENCOUNTER → 2022-12-29 23:56 | Outpatient (BNV) | payer OTHER, SELFPAY | PROVIDERS: Emergency Provider Internal Medicine; Visit Provider Internal Medicine | DX: R00.0 Tachycardia, unspecified (principal); R00.2 Palpitations | CPT/HCPCS: 93010 ==

== ENCOUNTER 2023-08-06 12:13 | Inpatient (IN) | payer OTHER, SELFPAY ==
--- NOTE | ~2023-08-06 | CT_ITS ---
EXAMINATION: CT ABDOMEN AND PELVIS WITH CONTRAST CLINICAL INFORMATION: Status post small bowel resection COMPARISON: CT abdomen pelvis 08/09/2023 TECHNIQUE: Multidetector volumetric images were obtained from the superior aspect of the liver through the pubic symphysis following administration 100 mL of Omnipaque 350 intravenous contrast. Sagittal and coronal reformatted images were obtained on the technologist's workstation. Oral contrast: No This CT examination was performed using dose optimization techniques as appropriate, variously including the following: *Automated exposure control *Adjustment of mA and/or kV according to patient size (this includes techniques or standardized protocols for targeted exams where dose is matched to indication/reason for exam; i.e. extremities or head) *Use of iterative reconstruction technique DLP: 1359 mGy-cm FINDINGS: LUNG BASES: There is mild cardiac enlargement. Bibasilar atelectasis is present LIVER, GALLBLADDER, AND BILIARY TREE: The liver is normal in size, shape, and attenuation. No focal hepatic lesion or biliary ductal dilatation is present. The gallbladder is unremarkable with no evidence of radiopaque gallstones, gallbladder wall thickening, or obvious pericholecystic inflammatory changes. PANCREAS: Unremarkable. SPLEEN: Unremarkable. ADRENAL GLANDS: Unremarkable. KIDNEYS AND URETERS: The kidneys are normal in size, shape, and attenuation. No hydronephrosis, hydroureter, or calculi seen. No perinephric stranding. BLADDER: Unremarkable. GASTROINTESTINAL TRACT: The distal esophagus is fluid-filled. There is marked dilatation of the stomach with fluid. The previously seen free intraperitoneal air has resolved. The colon is decompressed with the exception of a loop of sigmoid which is dilated with air. Small bowel remains dilated with largest diameter loops measuring 5.8 cm. A new small bowel anastomosis is seen in the right lower quadrant (6:53). I believe this is very close to the terminal ileum with a short segment of nondilated distal small bowel. An obstructing mass is not seen. A small amount of fluid is seen in the mesentery (for example 3:84). Previously seen small bowel pneumatosis is no longer present. There is no evidence of appendicitis.. ABDOMINAL WALL: There is a new midline supraumbilical abdominal incision with graham and a fluid collection running along with this measuring 4.6 x 3.0 x 18 cm. No abdominal wall hernias are seen LYMPH NODES: Shotty retroperitoneal lymph nodes are seen (the largest periceliac measuring 0.9 cm 3:37) but there is no evidence of retroperitoneal lymphadenopathy VASCULAR: Unremarkable. There is no portal venous gas. PELVIC VISCERA: The prostate and seminal vesicles are unremarkable. OSSEOUS STRUCTURES: Degenerative changes are noted at L5-S1. No bony destructive lesions. Again seen are changes of osteonecrosis in both femoral heads, right greater than left. CT/CT abdomen pelvis w IV con IMPRESSION: 1. New small bowel anastomosis in the right lower quadrant with persistent dilated small bowel loops. Findings could be related to postop ileus but also may be related to continued mechanical small bowel obstruction. 2. New midline supraumbilical abdominal incision with fluid collection running along with this. 3. Other incidental findings as described above. Fleischner guidelines were followed.
--- NOTE | ~2023-08-06 | XR_ITS ---
EXAMINATION: XR ABDOMEN KUB CLINICAL INDICATION: Follow-up for constipation. COMPARISON: CT abdomen pelvis 08/06/2023. TECHNIQUE: AP supine, AP supine, AP supine, AP supine radiographs of the abdomen pelvis. FINDINGS: Multiple gas-filled dilated small bowel segments are identified measuring up to 5 cm in diameter uncorrected for geometric magnification. Partial visualization is made of a moderately prominent quantity of stool within the rectosigmoid region marked right femoral head subchondral cyst formation and joint space narrowing is present. Moderate marked left hip joint space narrowing is visualized. Contrast agent is noted in what appears to represent partially decompressed ascending, transverse and proximal descending colon. Visualized lung bases are clear. XR/XR KUB IMPRESSION: *Prominent gaseous distention of multiple small bowel segments and moderate prominence of stool within the rectosigmoid region. The proximal colon appears decompressed. Overall, findings may represent small bowel dilatation related to small bowel obstruction independent of colonic stool burden. The degree of small bowel dilatation appears is proportionately prominent relative to the overall colonic stool burden suggesting small bowel obstruction unrelated to colonic stool burden. *Bilateral hip arthrosis with findings most pronounced on the right. This result with regards to possible small bowel obstruction was discussed with Dr. Abida CONWAY by telephone at 08/08/2023 4:45 PM and it was ascertained that the content and urgency of the report was understood at the time of direct communication.
--- NOTE | ~2023-08-06 | XR_ITS ---
EXAMINATION: XR ABDOMEN KUB CLINICAL INDICATION: Vomiting COMPARISON: Abdominal KUB August 10, 2023 TECHNIQUE: AP view of the abdomen. FINDINGS: Again demonstrated are multiple air-filled loops of dilated small bowel which measure up to 7.2 cm in diameter (previously 7.1 cm). Colon is difficult to evaluate due to small bowel dilatation, however, there appears to be a small amount of residual oral contrast throughout normal caliber colon. The stomach demonstrates mild gaseous distention as well. Skin graham project over the stomach. XR/XR KUB IMPRESSION: Persistent small bowel dilatation concerning for obstruction, slightly improved from prior imaging. Ileus is also within the differential.
--- NOTE | ~2023-08-06 | CT_ITS ---
EXAMINATION: CT ABDOMEN AND PELVIS WITHOUT CONTRAST CLINICAL INFORMATION: Partial small bowel obstruction. COMPARISON: Previous CT scans most recent 08/19/2023 TECHNIQUE: Multidetector volumetric imaging was performed from the superior aspect of the liver through the pubic symphysis. Sagittal and coronal reformatted images were obtained on the technologist's workstation. This CT examination was performed using dose optimization techniques as appropriate, variously including the following: *Automated exposure control *Adjustment of mA and/or kV according to patient size (this includes techniques or standardized protocols for targeted exams where dose is matched to indication/reason for exam; i.e. extremities or head) *Use of iterative reconstruction technique DLP: 1372 mGy-cm FINDINGS: LUNG BASES: The visualized lung bases are unremarkable. LIVER, GALLBLADDER, AND BILIARY TREE: The liver is normal in size, shape, and attenuation. No focal hepatic lesion or biliary ductal dilatation is present. The gallbladder is unremarkable with no evidence of radiopaque gallstones, gallbladder wall thickening, or obvious pericholecystic inflammatory changes. PANCREAS: Unremarkable. SPLEEN: Unremarkable. ADRENAL GLANDS: Unremarkable. KIDNEYS AND URETERS: The kidneys are normal in size, shape, and attenuation. No hydronephrosis, hydroureter, or calculi seen. No perinephric stranding. BLADDER: Bladder is empty and not well evaluated. GASTROINTESTINAL TRACT: There are dilated fluid-filled loops of small and large bowel. The small bowel is markedly dilated and fluid-filled measuring up to 6 cm in diameter similar to prior exam There are postsurgical changes following small bowel resection with surgical clips seen in the right lower quadrant. . There is mild caliber change of the small bowel in this region again questionable for partial distal small bowel obstruction. The proximal colon distal to this region is slightly distended and fluid-filled. There is a second focal area of narrowing of the splenic flexure for example coronal reconstructed image 53 and axial image 22. The left colon does not appear dilated. The entire left colon was collapsed on earlier July 2023 exam and is a filled with oral contrast and normal in caliber on earlier exam 08/09/2023 suggesting this may be related to focal peristalsis/contraction as opposed to abnormal mass or a stricture causing obstruction. The sigmoid colon is dilated and fluid-filled down to the rectum. Sigmoid colon measures up to 11.5 cm in diameter. This is increased from July 2023 exam. No obstructing rectal mass evident by CT. The stomach and esophagus appear less dilated and fluid-filled than on July 2023 exam. No ascites. No free air. ABDOMINAL WALL: Postsurgical changes to the anterior abdominal wall. Question the stasis or small ventral or incisional hernia containing fat. Previously identified subcutaneous fluid collection deep to the incision no longer seen. LYMPH NODES: Upper normal-size small bowel mesentery lymph nodes. Small retroperitoneal lymph nodes in the pelvis. VASCULAR: Unremarkable. PELVIC VISCERA: Unremarkable. OSSEOUS STRUCTURES: Degenerative changes of the lower lumbar spine curvature to the left. Bilateral femoral head AVN and arthritis, right greater than left. Stable small sclerotic lesions in the left pelvis. CT/CT abdomen pelvis wo IV con IMPRESSION: Dilated fluid-filled loops of small bowel with caliber change in the right lower quadrant at the small bowel surgical site again questionable for partial small bowel obstruction. The proximal colon, right colon and transverse colon, slightly distended and fluid-filled with second area of caliber change at the splenic flexure. The distal left colon is decompressed. Compared with recent exams this likely represents contraction or peristalsis as no wall thickening or obstructing lesion or stricture evident on earlier exams from July 2023. The sigmoid colon is markedly dilated and fluid-filled down to the rectum increased from prior exams. No obstructing rectal mass evident by CT. Fleischner guidelines were followed.
--- NOTE | ~2023-08-06 | US_ITS ---
EXAMINATION: US NONINVASIVE ASSESSMENT OF THE ARTERIES OF BOTH LOWER EXTREMITIES INCLUDING PVR EXAM AND BILATERAL LOWER EXTREMITY DUPLEX. CLINICAL INFORMATION: Ulcer, comatose COMPARISON: None TECHNIQUE: Ankle pulse volume recordings, ankle pressure measurements and ankle brachial indices were obtained of the lower extremity arterial system bilaterally in addition to duplex Doppler techniques with wave form analysis and measurement of velocities in the common femoral, profunda femoral, superficial femoral, popliteal, tibial and peroneal arteries. The study was performed only at rest. FINDINGS: RIGHT LE. THE RIGHT ANKLE-BRACHIAL INDEX IS: 1.09 (higher of the DP/PT) >0.97-1.25 = normal - no significant arterial disease 0.75-0.96 = mild peripheral arterial disease 0.5-0.74 = moderate peripheral arterial disease <0.50 = severe peripheral arterial disease <0.30 = critical arterial disease 2. SEGMENTAL PRESSURES (mmHg): Ankle: PT 1.01, DP 1.09 3. PVR WAVEFORMS: Ankle: Normal 4. DIRECT DUPLEX: Common femoral artery: 96.6 cm/s, Multiphasic Profunda femoris artery: 47.5 cm/s, Multiphasic Superficial femoral artery (proximal): 92.7 cm/s, Multiphasic Superficial femoral artery (mid): 57.8 cm/s, Multiphasic Superficial femoral artery (distal): 65.1 cm/s, Multiphasic Popliteal artery: 50.4 cm/s, Multiphasic Posterior tibial artery: 47.9 cm/s, Multiphasic LEFT LE. THE LEFT ANKLE-BRACHIAL INDEX IS: 1.06 (higher of the DP/PT) >0.97-1.25 = normal - no significant arterial disease 0.75-0.96 = mild peripheral arterial disease 0.5-0.74 = moderate peripheral arterial disease <0.50 = severe peripheral arterial disease <0.30 = critical arterial disease 2. SEGMENTAL PRESSURES: Ankle: PT 1.05, DP 1.06 3. PVR WAVEFORMS: Ankle: Normal 4. DIRECT DUPLEX: Common femoral artery: 130 cm/s, Multiphasic Profunda femoris artery: 61.6 cm/s, Multiphasic Superficial femoral artery (proximal): 91.3 cm/s, Multiphasic Superficial femoral artery (mid): 56.6 cm/s, Multiphasic Superficial femoral artery (distal): 75.6 cm/s, Multiphasic Popliteal artery: 52.3 cm/s, Multiphasic Posterior tibial artery: 62.1 cm/s, Multiphasic US/US TREVIN complete IMPRESSION: No evidence of any hemodynamically significant arterial stenosis in the bilateral lower extremities by pressure, waveform or duplex Doppler criteria at rest.
--- NOTE | ~2023-08-06 | XR_ITS ---
EXAMINATION: XR CHEST CLINICAL INFORMATION: PICC line placement. COMPARISON: Chest 08/19/2023. TECHNIQUE: Frontal view of the chest was obtained. FINDINGS: There is a new left PICC line with its tip at the brachiocephalic venous junction. There is enteric tube with its tip below diaphragm. The sidehole is above the GE junction. The lungs are hypoexpanded but clear. The heart size is borderline normal. Pulmonary vascularity is normal. No gross bony abnormality seen. XR/XR chest 1V IMPRESSION: 1. New left PICC line tip is at the brachiocephalic venous junction. 2. There is enteric tube with its tip below the diaphragm. The sidehole is above the GE junction. The tube has retracted since 08/19/2023 and needs to be advanced at least by 10 cm. 3. Hypoexpanded lungs without acute process.
--- NOTE | ~2023-08-06 | FL_ITS ---
EXAMINATION: FL SMALL BOWEL SERIES CLINICAL INFORMATION: Concern for small bowel obstruction COMPARISON: None available. Correlation made with CT of the abdomen and pelvis 08/06/2023, and KUB x-ray 08/08/2023. TECHNIQUE: Following a visually impaired teacher image of the abdomen, Gastrografin was administered via the patient's NG tube, and interval abdominal radiographs were performed to assess for contrast progression through the small bowel. FINDINGS: Candy Waffle Assembler image of the abdomen demonstrates multiple dilated small bowel loops. Small bowel loops are dilated within the central and upper abdomen, measuring up to 7.6 cm in diameter. NG tube noted placed in the stomach with the tip in the antrum. Contrast from prior CT observed in the completely decompressed descending transverse and proximal descending colon. Contrast also likely seen in the terminal ileum right lower quadrant from prior CT. Gastrografin was administered via the patient's nasogastric tube. After 140 minutes, contrast has failed to progress beyond the proximal dilated small bowel. Findings suggest aperistalsis/ileus. Proximal small bowel remains markedly dilated concerning for high-grade mechanical small bowel obstruction, versus ileus. In the right lower quadrant on the 140 minute image, there is a unusual bowel gas pattern associated with a loop of presumed terminal ileum, possibly representing pneumatosis intestinalis. Linear and circular gas patterns are present. In addition, a small bowel loop traversing the midabdomen may also demonstrate pneumatosis intestinalis. Given these findings, repeat abdominal/pelvic CT is recommended on an emergent basis. Incidentally noted, there is a short mesenteric cecal attachment, as well as a configuration of the sigmoid colon which may predispose to volvulus. No current pathology was seen. Mild wall thickening of the sigmoid colon noted, with retained stool present. Incidentally noted was AVN of both femoral heads with right-sided subchondral collapse. FL/FL small bowel follow through IMPRESSION: Distended small bowel loops with failure of the contrast to progress beyond the dilated proximal small bowel, concerning for a high-grade small bowel obstruction versus ileus. Findings highly concerning for pneumatosis intestinalis involving a right lower quadrant and mid abdominal small bowel loop. CT is recommended on an emergent basis to exclude this possibility and to further evaluate the point of obstruction. AVN of both femoral heads with right-sided subchondral collapse. Cole Ibarra PA-C, made the care team aware of the above findings, and recommended repeat CT, at 1320, 08/09/2023. This procedure was performed by Cole Ibarra PA-C, and supervised by Dr. Leahy
--- NOTE | ~2023-08-06 | XR_ITS ---
EXAMINATION: XR ABDOMEN COMPLETE CLINICAL INDICATION: Reason for Exam post op follow-up COMPARISON: CT abdomen pelvis 08/09/2023 TECHNIQUE: AP view of the abdomen. FINDINGS: Lines or devices: Enteric tube tip overlies the region of the proximal stomach with the sidehole just distal to the gastroesophageal junction. EKG leads overlie the patient. Midline soft tissue surgical graham. Multiple dilated stacked loops of small bowel measuring up to 7.1 cm, previously 4.8 cm increased from prior. There is stool and gas noted throughout the colon with remnant enteric contrast in the colon and stool within the rectum. No definite extraluminal air is appreciated though supine technique limits evaluation. No abnormal calcifications. XR/XR KUB IMPRESSION: Multiple dilated stacked loops of small bowel measuring up to 7.1 cm, previously 4.8 cm increased from prior, which can be seen in the setting of ileus or obstruction, recommend correlation with operative findings. There is stool and gas noted throughout the colon with remnant enteric contrast in the colon and stool within the rectum.
--- NOTE | ~2023-08-06 | XR_ITS ---
EXAMINATION: XR CHEST CLINICAL INFORMATION: NG tube placement COMPARISON: Chest x-ray 08/09/2023 TECHNIQUE: Frontal view of the chest was obtained. FINDINGS: The lungs are hypoexpanded but clear of acute process. Heart size and pulmonary vascularity is normal. There is a right central venous catheter its tip at the atrial caval junction. There is enteric tube with its tip below diaphragm the stomach. There are multiple dilated small bowel loops question ileus versus obstruction. XR/XR chest 1V IMPRESSION: 1. Hypoexpanded lungs without acute process. 2. Multiple dilated small bowel loops question ileus versus obstruction versus postop. 3. New support lines and catheters are in satisfactory position.
--- NOTE | ~2023-08-06 | XR_ITS ---
EXAMINATION: XR CHEST CLINICAL INFORMATION: Marked tachycardia COMPARISON: Chest 08/19/2023 TECHNIQUE: Frontal view of the chest was obtained. FINDINGS: The lungs are hypoexpanded but clear. Heart size and pulmonary vascularity is normal. There is a right central venous catheter with its tip in distal SVC. Tip of enteric tube is in stomach. No gross bony abnormality seen. XR/XR chest 1V IMPRESSION: 1. Hypoexpanded lungs without acute process. 2. Support lines and catheters are in satisfactory position.
--- NOTE | ~2023-08-06 | US_ITS ---
EXAMINATION: US NONINVASIVE ASSESSMENT OF THE ARTERIES OF BOTH LOWER EXTREMITIES INCLUDING PVR EXAM AND BILATERAL LOWER EXTREMITY DUPLEX. CLINICAL INFORMATION: Ulcer, comatose COMPARISON: None TECHNIQUE: Ankle pulse volume recordings, ankle pressure measurements and ankle brachial indices were obtained of the lower extremity arterial system bilaterally in addition to duplex Doppler techniques with wave form analysis and measurement of velocities in the common femoral, profunda femoral, superficial femoral, popliteal, tibial and peroneal arteries. The study was performed only at rest. FINDINGS: RIGHT LE. THE RIGHT ANKLE-BRACHIAL INDEX IS: 1.09 (higher of the DP/PT) >0.97-1.25 = normal - no significant arterial disease 0.75-0.96 = mild peripheral arterial disease 0.5-0.74 = moderate peripheral arterial disease <0.50 = severe peripheral arterial disease <0.30 = critical arterial disease 2. SEGMENTAL PRESSURES (mmHg): Ankle: PT 1.01, DP 1.09 3. PVR WAVEFORMS: Ankle: Normal 4. DIRECT DUPLEX: Common femoral artery: 96.6 cm/s, Multiphasic Profunda femoris artery: 47.5 cm/s, Multiphasic Superficial femoral artery (proximal): 92.7 cm/s, Multiphasic Superficial femoral artery (mid): 57.8 cm/s, Multiphasic Superficial femoral artery (distal): 65.1 cm/s, Multiphasic Popliteal artery: 50.4 cm/s, Multiphasic Posterior tibial artery: 47.9 cm/s, Multiphasic LEFT LE. THE LEFT ANKLE-BRACHIAL INDEX IS: 1.06 (higher of the DP/PT) >0.97-1.25 = normal - no significant arterial disease 0.75-0.96 = mild peripheral arterial disease 0.5-0.74 = moderate peripheral arterial disease <0.50 = severe peripheral arterial disease <0.30 = critical arterial disease 2. SEGMENTAL PRESSURES: Ankle: PT 1.05, DP 1.06 3. PVR WAVEFORMS: Ankle: Normal 4. DIRECT DUPLEX: Common femoral artery: 130 cm/s, Multiphasic Profunda femoris artery: 61.6 cm/s, Multiphasic Superficial femoral artery (proximal): 91.3 cm/s, Multiphasic Superficial femoral artery (mid): 56.6 cm/s, Multiphasic Superficial femoral artery (distal): 75.6 cm/s, Multiphasic Popliteal artery: 52.3 cm/s, Multiphasic Posterior tibial artery: 62.1 cm/s, Multiphasic US/US arterial duplex LE BI IMPRESSION: No evidence of any hemodynamically significant arterial stenosis in the bilateral lower extremities by pressure, waveform or duplex Doppler criteria at rest.
--- NOTE | ~2023-08-06 | CT_ITS ---
EXAMINATION: CT ABDOMEN AND PELVIS WITHOUT CONTRAST CLINICAL INFORMATION: Small bowel obstruction. COMPARISON: CT abdomen/pelvis from 08/06/2023. TECHNIQUE: Multidetector volumetric imaging was performed from the superior aspect of the liver through the pubic symphysis. Sagittal and coronal reformatted images were obtained on the technologist's workstation. This CT examination was performed using dose optimization techniques as appropriate, variously including the following: *Automated exposure control *Adjustment of mA and/or kV according to patient size (this includes techniques or standardized protocols for targeted exams where dose is matched to indication/reason for exam; i.e. extremities or head) *Use of iterative reconstruction technique DLP: 1083 mGy-cm FINDINGS: LOCALIZER IMAGES: Obese body habitus. The tip of an enteric tube is seen at the level of the first portion of the duodenum. Loops of small bowel remain dilated. Enteric contrast is present within the stomach and bowel. LUNG BASES: The lower lobes are partially included in [id number]. Mild atelectasis in dependent aspect of each lower lobe. HEPATOBILIARY: The dome of the liver is excluded from [id number]. The liver has normal size and contour. No focal lesion or intrahepatic duct dilatation. Gallbladder is unremarkable. PANCREAS: [id number] atrophy. No edema, pancreatic ductal dilatation or mass. SPLEEN: Normal. ADRENAL GLANDS: Normal. KIDNEYS AND URETERS: The kidneys have normal size and cortical thickness. No perinephric fluid collection, urolithiasis or hydroureteronephrosis. There is some hyperdense excreted contrast material within the renal collecting systems. BLADDER: There is iodinated contrast within the urinary bladder. BOWEL AND PERITONEUM: Stomach is mildly distended with gas and contrast material. The duodenum and jejunum are dilated. Again noted is a lipoma of the third portion the duodenum. The loops of small bowel measure up to at least 5 cm AP diameter and the degree of distention has worsened compared to 08/06/2023. The contrast is seen in the small bowel and colon. The distal small bowel remains decompressed. There is a region of transition from dilated to nondilated bowel in the right mid to lower abdomen. No evidence of any obstructing mass along the bowel wall or in the mesentery. There is pneumatosis intestinalis of a loop of small bowel in the right abdomen (images 54-70, series 3). No portal venous gas. There is mild edema of mesenteric fat in the lower abdomen and pelvis. Small amount of free fluid is present but no focal organized collection. Also, there is a small volume of pneumoperitoneum. The right and left colon remain decompressed. Moderate amount of fecal material is present in the sigmoid colon and rectum. ABDOMINAL WALL: Minimal protrusion of fat into the umbilicus. There is no evidence of any significant hernia. VASCULATURE: Mild atherosclerosis of the abdominal aorta without aneurysm. LYMPH NODES: No pathologic sized lymph nodes in the abdomen or pelvis. No inguinal lymphadenopathy. PELVIC VISCERA: Prostate gland is unremarkable. MUSCULOSKELETAL: No acute or suspicious osseous abnormality. There is narrowing of disc space and vacuum disc phenomenon at L5-S1. Bone island at posterior medial left acetabulum. Chronic osteonecrosis within each femoral head. Associated mild osseous fragmentation of the right femoral head (stage 3 osteonecrosis). Small osteophytes at each hip. CT/CT abdomen pelvis wo IV con IMPRESSION: * Partial small bowel obstruction. Compared to 08/06/2023, there is interval worsening distention of the proximal small bowel and interval development of pneumatosis intestinalis of a loop of small bowel in the right abdomen along with mild inflammation/stranding of the mesentery, small volume free fluid and small volume pneumoperitoneum. * Moderate amount of fecal material is present within the colon and rectum. Constipation is suspected. * Chronic osteonecrosis of each femoral head. The critical test result was discussed with Dr. Tai at 3:20 PM on 08/09/2023 and it was ascertained that the content and the importance of the findings was understood at the time of the direct communication.
--- NOTE | ~2023-08-06 | CT_ITS ---
EXAMINATION: CT ABDOMEN AND PELVIS WITH CONTRAST CLINICAL INFORMATION: Abdominal pain. Concern for obstruction. COMPARISON: None available. TECHNIQUE: Multidetector volumetric images were obtained from the superior aspect of the liver through the pubic symphysis following administration 85 mL of Omnipaque 350 intravenous contrast. Sagittal and coronal reformatted images were obtained on the technologist's workstation. Oral contrast: Yes This CT examination was performed using dose optimization techniques as appropriate, variously including the following: *Automated exposure control *Adjustment of mA and/or kV according to patient size (this includes techniques or standardized protocols for targeted exams where dose is matched to indication/reason for exam; i.e. extremities or head) *Use of iterative reconstruction technique DLP: 145 mGy-cm FINDINGS: LUNG BASES: The visualized lung bases are unremarkable. LIVER, GALLBLADDER, AND BILIARY TREE: The liver is normal in size, shape, and attenuation. No focal hepatic lesion or biliary ductal dilatation is present. The gallbladder is unremarkable with no evidence of radiopaque gallstones, gallbladder wall thickening, or obvious pericholecystic inflammatory changes. PANCREAS: Unremarkable. SPLEEN: Unremarkable. ADRENAL GLANDS: Unremarkable. KIDNEYS AND URETERS: The kidneys are normal in size, shape, and attenuation. No hydronephrosis, hydroureter, or calculi seen. No perinephric stranding. BLADDER: Not optimally distended.. GASTROINTESTINAL TRACT: The stomach is normal. There is a fatty lesion in the proximal duodenum suggestive of a lipoma. The proximal wall bowel is dilated and contrast filled measuring up to 2.8 cm in diameter. Small bowel does not appear dilated. The appendix is not definitely seen. There is a large amount of stool in the colon suggestive of constipation. The distal colon is dilated down to the rectum, sigmoid colon measuring up to 6.3 cm in diameter. ABDOMINAL WALL: No significant hernia is appreciated. LYMPH NODES: Normal. VASCULAR: Unremarkable. PELVIC VISCERA: Unremarkable. 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 Degenerative changes of the lower lumbar spine. CT/CT abdomen pelvis w IV con IMPRESSION: Dilated contrast-filled proximal small bowel. The distal small bowel is not dilated. Question proximal small bowel obstruction. Large amount of stool in the colon suggestive of constipation. The distal colon is dilated down to the rectum. Fleischner guidelines were followed.
--- NOTE | ~2023-08-06 | XR_ITS ---
EXAMINATION: XR CHEST CLINICAL INFORMATION: Right jugular TLC insertion COMPARISON: Chest 05/01/2022 TECHNIQUE: Frontal view of the chest was obtained. FINDINGS: The lungs are well-expanded without acute pneumonic process. Heart size is enlarged. Pulmonary vascularity is normal. There is enteric tube tip in the proximal stomach with end hole above the GE junction. There is a right central catheter with its tip at atriocaval junction. No gross bony abnormality seen. XR/XR chest 1V IMPRESSION: 1. Right central venous catheter tip at atriocaval junction. No pneumothorax seen. 2. The enteric tube tip is in proximal stomach with end hole above the GE junction.
[2023-08-06 12:24] VITALS: BP 127/76; PULSE 116; O2SAT 98
--- NOTE | 2023-08-06 12:25 | ED_ITS ---
HPI - General Adult General Chief complaint: Abdominal Pain Stated complaint: VOMITING SINCE LAST NIGHT Time Seen by Provider: 08/06/23 12:25 Source: patient and EMS Mode of arrival: EMS Limitations: no limitations History of Present Illness HPI narrative: Patient is a 53 year old assigned male at with a history of guillain-barre syndrome and DVT presenting to the emergency department today with nausea, vomiting, and constipation. Patient states that over the last week he has been unable to have a bowel movement and over the last day, he has begun vomiting. Patient states he is able to tolerate fluids but not food at this time. Patient denies any dizziness, lightheadedness, fever, chills, blurry vision, double vision, loss of vision, chest pain, difficulty breathing, shortness of breath, back pain, night sweats, pain with urination, increased urinary frequency, increased urinary urgency, blood in his urine or stool, syncope or a near syncopal episode, recent trauma or falls, bowel incontinence, bladder incontinence, bowel retention, bladder retention, or any other complaints at this time. Onset (ago): day(s) Location: abdomen Severity: mild Severity scale (1-10): 3 Quality: aching and dull Pain Consistency: constant Relieving factors: none Exacerbating factors: none Associated symptoms: nausea/vomiting Treatments prior to arrival: none Related Data Home Medications Medication Instructions Recorded Confirmed baclofen 10 mg tablet 10 mg PO BID 01/04/22 08/06/23 cholecalciferol (vitamin D3) 25 25 mcg PO DAILY 01/04/22 08/06/23 mcg (1,000 unit) tablet Previous Rx's Medication Instructions Recorded rivaroxaban 20 mg tablet (Xarelto) 20 mg PO DAILY 2 months #60 tabs 05/01/22 Allergies Allergy/AdvReac Type Severity Reaction Status Date / Time No Known Allergies Allergy Verified 12/29/22 23:48 Review of Systems 2 Constitutional: Constitutional: Reports no additional constitutional complaints, Denies chills, Denies fever(s) and Denies night sweats Eyes: Eyes: Reports no additional eye complaints, Denies blurry vision, Denies change in vision, Denies diplopia, Denies eye discharge, Denies loss of vision and Denies eye pain ENT: Denies dizziness Cardiovascular: Cardiovascular: Reports no additional cardiovascular complaints, Denies chest pain, Denies lightheadedness, Denies Loss of Consciousness and Denies dyspnea Respiratory: Respiratory: Reports no additional respiratory complaints and Denies dyspnea Gastrointestinal: Gastrointestinal: Reports no additional gastrointestinal complaints, Reports abdominal pain, Denies melena, Denies hematochezia, Denies change in bowel habits, Denies change in stool character, Reports nausea and Reports vomiting Genitourinary: Genitourinary: Reports no additional male genitourinary complaints, Denies hematuria, Denies oliguria, Denies difficulty urinating, Denies dysuria, Denies urinary frequency, Denies urinary hesitancy, Denies urinary incontinence and Denies urinary urgency Musculoskeletal: Musculoskeletal: Reports no additional musculoskeletal complaints, Denies numbness and Denies tingling Neurologic: Denies dizziness, Denies loss of vision, Denies numbness and Denies tingling Psychiatric: Psychiatric: Reports no additional psychiatric complaints Endocrine: Endocrine: Reports no additional endocrine complaints Hematologic/Lymphatic: Hematologic/Lymphatic: Reports no additional hematologic/lymphatic complaints Allergic/Immunologic: Allergic/Immunologic: Reports no additional allergic/immunologic complaints PMFSH Past Medical History Attestation statement: The following information was validated with the patient. Source: old records reviewed and nursing notes reviewed Social History Social History Alcohol intake: current Alcohol intake frequency: holidays/special occasions only Patient Tobacco Use Status: Never used Tobacco Substance Use Type: Marijuana Advance Directives: Yes Advance Directives on File: Yes Advance Directives Date on File: 12/16/21 Physical Exam ED Vital Signs: Vital Signs - 24 hr 08/06/23 12:34 08/06/23 14:20 08/06/23 18:29 Temperature 99 F 99.3 F 99.5 F Pulse Rate 114 H 107 H 100 Respiratory Rate 18 19 19 Blood Pressure 137/85 125/66 117/71 Pulse Oximetry 99 98 Oxygen Delivery Method Room Air Room Air Room Air 08/06/23 19:18 Temperature Pulse Rate 95 Respiratory Rate 18 Blood Pressure 105/64 Pulse Oximetry 97 Oxygen Delivery Method Room Air BMI result Body Mass Index 36.8 Const General: cooperative, no acute distress, alert and awake Nutritional Appearance: well nourished Orientation/consciousness: patient oriented x3 Limitations: no limitations HENMT Head: Yes normal to inspection and Yes atraumatic Ears: hearing grossly normal bilaterally and external ears normal General nose exam: Normal external nose present, no nasal discharge noted and no epistaxis Face and sinus: Yes normal facial exam, No abrasion and No laceration Mouth: Normal oral and palatal mucosa present, no drooling and no muffled voice Eyes General: appearance normal, both eyes and all related structures Periorbital: periorbital findings normal Eyelids: Yes eyelids normal Conjunctivae: conjunctivae normal Pupils: Equal, round and reactive pupils present EOM: EOMs intact bilaterally Neck Neck: Yes normal visual inspection, Yes full ROM and Yes no lymphadenopathy Chest Chest palpation & inspection: normal inspection of the chest Resp Effort & Inspection: normal respiratory effort and able to speak in complete sentences GI Inspection: Yes normal to inspection Palpation (GI): Soft to palpation, not firm, nontender, no guarding and not rigid Neuro General: patient oriented x3 and moves all extremities Cranial nerves: Yes Equal, round and reactive pupils present Cognition (Neuro): normal cognition Motor exam (neuro): 5/5 motor strength present throughout Sensory Exam: Normal double simultaneous stimulation for sensation Coordination: [id number] test normal Extrem General: Yes normal to inspection, Yes full ROM and Yes capillary refill normal Psych Appearance: grossly normal Mental Status: mental status grossly normal Affect: normal affect Attitude: cooperative Thought process: Normal thought process present Thought content: Normal thought content present Insight: Good insight present (Psych) Medications Administered Discontinued Medications Generic Name Dose Route Start Last Admin Trade Name Saltyq PRN Reason Stop Dose Admin Barium Sulfate 900 ml 08/06/23 16:27 08/06/23 16:31 Barium Sulfate Oral (Vanilla) 450 Ml Oral.Susp PO 08/06/23 16:28 900 ml ONCE ONE Administration Sodium Chloride 1,000 mls @ 999 mls/hr 08/06/23 12:30 08/06/23 13:42 Ns IV 08/06/23 13:30 999 mls/hr .Q1H1M YOLETTE Administration Iohexol 100 ml 08/06/23 16:21 08/06/23 16:21 Iohexol 350 Mg/Ml 100 Ml Infus..Btl IV 08/06/23 16:22 100 ml ONCE ONE Administration Morphine Sulfate 4 mg 08/06/23 18:56 08/06/23 19:19 Morphine Sulfate 4 Mg/Ml Cartridge IVPUSH 08/06/23 18:57 4 mg ONCE ONE Administration Protocol Ondansetron HCl 4 mg 08/06/23 12:22 08/06/23 13:42 Ondansetron Hcl 4 Mg/2 Ml Vial IVPUSH 08/06/23 12:23 4 mg ONCE ONE Administration Ondansetron HCl 4 mg 08/06/23 18:56 08/06/23 19:17 Ondansetron Hcl 4 Mg/2 Ml Vial IVPUSH 08/06/23 18:57 4 mg ONCE ONE Administration Procedures EJ/Peripheral Line Arm L: Time Out Performed: Yes Skin Cleansed in Sterile Fashion: Yes Size (gauge): 20 IV Secured and Dressing Applied: Yes Patient Tolerated Procedure: well Additional Comments: asked by RN ro place [address],Under us linear probe cannulated left brachial vein with 20 jr catheter Medical Decision Making Medical Decision Making [facility] Narrative: Patient is a 53 year old assigned male at with a history of DVT, PE, and guillain-barre presenting to the emergency department today with abdominal pain, constipation, nausea, and vomiting. Patient's physical exam was as noted in the physical exam portion of this note. Patient's blood work was unremarkable. Patient's urine showed no acute process. Patient's CT abdomen/pelvis showed a possible SBO. I spoke to the general surgery team who recommended medical admission and they'd consult on the patient. I spoke to the hospitalist team who agreed to admission. I explained my physical exam findings as well as all test results to the patient. I answered all questions asked by the patient. Patient verbalized agreement and understanding with this treatment plan and admission. Differential Diagnosis Differential Diagnoses: The differential diagnosis associated with the presentation includes Small bowel obstruction Constipation Gastroenteritis Abdominal pain UTI Admission/Observation Consideration of admission/observation: Escalation of care including admission/observation considered Patient admitted. Consult Healthcare Provider Management of the patient was discussed with: Hospitalist (agreed to admission as noted in the MDM Rationale portion of this note.) and Gear Machine Operator (spoke to the general surgery team as noted in the MDM Rationale portion of this note.) Lab Data [facility] Lab Attestation statement: I reviewed the patient's lab results. My interpretation of these results are in the MDM Rationale portion of this note. 08/06/23 13:50 08/06/23 13:50 Labs: Lab Results 08/06/23 08/06/23 08/06/23 Range/Units 13:11 13:50 16:46 WBC 7.7 (4.8-10.8) X10*3/uL RBC 5.79 (4.60-5.80) X10*6/uL Hgb 16.6 (14.0-18.0) g/dl Hct 51.0 (42.0-52.0) % MCV 88.1 (80.0-98.0) fL MCH 28.7 (27.0-33.0) pg MCHC 32.5 (31.0-36.0) g/dl RDW 13.7 (11.0-16.0) % Plt Count 355 (160-400) X10*3/uL MPV 9.3 L (9.4-12.4) fL Immature Gran % (Auto) 0.3 (0.0-0.4) % Neut % (Auto) 81.8 H (45-73) % Lymph % (Auto) 11.1 L (20-40) % Bledsoe % (Auto) 6.5 (2-11) % Eos % (Auto) 0.0 (0-4) % Baso % (Auto) 0.3 (0-2) % Lymph # (Auto) 0.9 L (1.2-4.9) X10*3/uL Bledsoe # (Auto) 0.5 (0.1-1.2) X10*3/uL Eos # (Auto) 0.0 (0.0-0.4) X10*3/uL Baso # (Auto) 0.0 (0.0-0.2) X10*3/uL Abs Immat Gran (auto) 0.02 (0.00-0.03) X10*3/uL Absolute Neuts (auto) 6.3 (2.0-8.3) x10*3/uL Absolute Nucleated RBC 0.000 (0.0-0.012) X10*3/uL Nucleated RBC % (auto) 0.0 (0.0-0.2) /100WBC Sodium 137 (135-145) mmol/L Potassium 4.4 (3.3-5.1) mmol/L Chloride 102 (96-108) mmol/L Carbon Dioxide 26 (22-29) mmol/L Anion Gap 13 (12-20) BUN 22 H (9-16) mg/dL Creatinine 0.87 (0.5-1.4) mg/dL Estim Creat Clear Calc 116.9 Estimated GFR > 60 Random Glucose 147 H (60-115) mg/dL Calcium 9.5 (8.4-10.2) mg/dL Magnesium 2.1 (1.6-2.6) mg/dL Total Bilirubin 0.7 (0.0-1.0) mg/dL AST 15 (5-37) U/L ALT 16 (0-40) U/L Alkaline Phosphatase 46 (39-117) U/L Total Protein 8.5 H (6.5-8.0) g/dL Albumin 3.8 (3.5-5.0) g/dL Urine Color Dark Yellow Urine Appearance Clear Urine pH 5.5 (5.0-9.0) Ur Specific [place] >= 1.030 H (1.005-1.025) Urine Protein Trace (Neg-Trace) mg/dL Urine Glucose (UA) Negative (Negative) mg/dL Urine Ketones Negative (Negative) mg/dL Urine Blood Negative (Negative) Urine Nitrite Negative (Negative) Ur Leukocyte Esterase Negative (Negative) Influenza Type A (PCR) NEGATIVE (Negative) Influenza Type B (PCR) NEGATIVE (Negative) RSV RNA Qual (PCR) NEGATIVE (Negative) SARS-CoV-2 RNA (RT-PCR) NEGATIVE (Negative) Independent Interpretation I performed an independent interpretation of an: CT Scan Interpretation: My interpretation is in agreement with the radiologist's impression of this imaging study. - EXAMINATION: CT ABDOMEN AND PELVIS WITH CONTRAST CLINICAL INFORMATION: Abdominal pain. Concern for obstruction. COMPARISON: None available. TECHNIQUE: Multidetector volumetric images were obtained from the superior aspect of the liver through the pubic symphysis following administration 85 mL of Omnipaque 350 intravenous contrast. Sagittal and coronal reformatted images were obtained on the technologist's workstation. Oral contrast: Yes This CT examination was performed using dose optimization techniques as appropriate, variously including the following: *Automated exposure control *Adjustment of mA and/or kV according to patient size (this includes techniques or standardized protocols for targeted exams where dose is matched to indication/reason for exam; i.e. extremities or head) *Use of iterative reconstruction technique DLP: 145 mGy-cm FINDINGS: LUNG BASES: The visualized lung bases are unremarkable. LIVER, GALLBLADDER, AND BILIARY TREE: The liver is normal in size, shape, and attenuation. No focal hepatic lesion or biliary ductal dilatation is present. The gallbladder is unremarkable with no evidence of radiopaque gallstones, gallbladder wall thickening, or obvious pericholecystic inflammatory changes. PANCREAS: Unremarkable. SPLEEN: Unremarkable. ADRENAL GLANDS: Unremarkable. KIDNEYS AND URETERS: The kidneys are normal in size, shape, and attenuation. No hydronephrosis, hydroureter, or calculi seen. No perinephric stranding. BLADDER: Not optimally distended.. GASTROINTESTINAL TRACT: The stomach is normal. There is a fatty lesion in the proximal duodenum suggestive of a lipoma. The proximal wall bowel is dilated and contrast filled measuring up to 2.8 cm in diameter. Small bowel does not appear dilated. The appendix is not definitely seen. There is a large amount of stool in the colon suggestive of constipation. The distal colon is dilated down to the rectum, sigmoid colon measuring up to 6.3 cm in diameter. ABDOMINAL WALL: No significant hernia is appreciated. LYMPH NODES: Normal. VASCULAR: Unremarkable. PELVIC VISCERA: Unremarkable. 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 Degenerative changes of the lower lumbar spine. CT/CT abdomen pelvis w IV con IMPRESSION: Dilated contrast-filled proximal small bowel. The distal small bowel is not dilated. Question proximal small bowel obstruction. Large amount of stool in the colon suggestive of constipation. The distal colon is dilated down to the rectum. Fleischner guidelines were followed. Dictated By: Binta Lazcano MD Signed By: Electronically signed by Binta Lazcano MD 08/06/23 6087 Radiology Impression Discussion of test interpretation with radiology: I have reviewed the radiologist's reading. Independent Historian Clinical information obtained from an independent historian. History obtained from or confirmed by: EMS (EMS provided additional history and confirmed the history provided by the patient.) Critical Care Time Critical Care Time Critical Care Time: Yes Total Critical Care Time: 78 Attestation: I spent 78 minutes of Critical Care Time with this patient. This does not include time spent on separately reported billable procedures. Discharge Plan Discharge Clinical Impression: Small bowel obstruction Patient Disposition: Admitted As Inpatient Prescriptions: No Action baclofen 10 mg Tablet 10 mg PO BID cholecalciferol (vitamin D3) 25 mcg (1,000 unit) Tablet 25 mcg PO DAILY Xarelto 20 mg tablet 20 mg PO DAILY 60 Days Qty: 60 0RF Rx Instructions: must administer with evening meal
[2023-08-06 12:34] VITALS: BP 137/85; PULSE 114; RESP 18; TEMP 37.2; O2SAT 99; BMI 36.8
[2023-08-06] MEDS: ondansetron HCL 4 MG/2 ML VIAL IVPUSH ×2 (13:42→19:17)
[2023-08-06] MEDS: 0.9 % Sodium Chloride 1,000 ML 999 ML IV (13:42)
[2023-08-06 13:54] LABS: MANUAL DIFF FLAG NO
[2023-08-06 13:57] LABS: Basophils Percent Auto 0.3 % (0-2); Hemoglobin 16.6 g/dl (14.0-18.0); Imm Gran Abs Auto 0.02 X10*3/uL (0.00-0.03); Imm Gran Pct Auto 0.3 % (0.0-0.4); Lymphocytes Absolute Auto 0.9 X10*3/uL (1.2-4.9); Lymphocytes Percent Auto 11.1 % (20-40); Mean Corpuscular HGB Conc 32.5 g/dl (31.0-36.0); Mean Corpuscular Hemoglobin 28.7 pg (27.0-33.0); Mean Corpuscular Volume 88.1 fL (80.0-98.0); Mean Platelet Volume 9.3 fL (9.4-12.4); Monocytes Absolute Auto 0.5 X10*3/uL (0.1-1.2); Monocytes Percent Auto 6.5 % (2-11); Neutrophils Absolute Auto 6.3 x10*3/uL (2.0-8.3); Neutrophils Percent Auto 81.8 % (45-73); Platelet Count 355 X10*3/uL (160-400); Red Blood Count 5.79 X10*6/uL (4.60-5.80); Red Cell Distribution Width 13.7 % (11.0-16.0); White Blood Count 7.7 X10*3/uL (4.8-10.8)
[2023-08-06 14:04] LABS: Influenza A PCR NEGATIVE (Negative); Influenza B PCR NEGATIVE (Negative); Resp Syncy Virus RNA Qual PCR NEGATIVE (Negative); SARS COV2 PCR INHOUSE NEGATIVE (Negative)
[2023-08-06 14:19] LABS: Alanine Aminotransferase 16 U/L (0-40); Albumin Level 3.8 g/dL (3.5-5.0); Alkaline Phosphatase 46 U/L (39-117); Anion Gap 13 (12-20); Aspartate Amino Transferase 15 U/L (5-37); Bilirubin Total 0.7 mg/dL (0.0-1.0); Blood Urea Nitrogen 22 mg/dL (9-16); Calcium 9.5 mg/dL (8.4-10.2); Carbon Dioxide 26 mmol/L (22-29); Chloride 102 mmol/L (96-108); Creatinine Clr Calc Pharmacy 116.9; Estimated Glomerular Filt Rate > 60; Glucose Random 147 mg/dL (60-115); Magnesium 2.1 mg/dL (1.6-2.6); Potassium 4.4 mmol/L (3.3-5.1); Sodium 137 mmol/L (135-145); Total Protein 8.5 g/dL (6.5-8.0)
[2023-08-06 14:20] VITALS: BP 125/66; PULSE 107; RESP 19; TEMP 37.4; O2SAT 98
[2023-08-06] MEDS: iohexoL 350 MG/ML 100 ML INFUS..BTL IV (16:21)
[2023-08-06] MEDS: Barium Sulfate Oral (Vanilla) 450 ML ORAL.SUSP 900 ML PO (16:31)
[2023-08-06 16:56] LABS: Appearance Urine Clear; Color Urine Dark Yellow; Glucose Urine UA Negative (Negative); Leukocyte Esterase Urine Negative (Negative); Nitrite Urine Negative (Negative); PH 5.5 (5.0-9.0); Specific Gravity - Urine >= 1.030 (1.005-1.025); Urine Blood Negative (Negative); Urine Ketones Negative (Negative); Urine Protein Trace mg/dL (Neg-Trace)
--- NOTE | 2023-08-06 18:27 | P.HPHOSP_ITS ---
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 Patient reports he has had recent constipation with last bowel movement over 1 week ago. Says he normally has a BM daily. Last night patient began developing central abdominal pain that was cramping in nature. Would rate a 7 to 8/10 at its worst. Also experienced nausea and vomiting. When patient awoke this morning abdominal symptoms had worsened so he came to the ED for further evaluation. Also notes passing lots of gas last night, with less this morning. Not certain if he is passed any gas this afternoon. Last episode of nausea and vomiting was just prior to arrival at the ED. Says he has been intermittently juicing the past couple of months where he will primarily juice during the week with some salads inbetween and then eat solid meals during the weekends. Denies chest pain/pressure, palpitations. No fever, chills. Denies shortness of breath. In the ED pt was tachycardic up to 140 with slightly elevated temperature of 99.5 degrees. Labs were grossly unremarkable. No leukocytosis. Stable H&H. No electrolyte abnormalities. Renal and hepatic function baseline. UA negative for UTI. Tested negative for influenza, RSV, and COVID. CT?of abdomen and pelvis found question of proximal small bowel obstruction, and also showed constipation. Pt was treated with IVF and ondansetron. Pt will be admitted to the hospital for treatment further evaluation of small-bowel obstruction. Review of Systems 2 Review of Systems: Nausea, vomiting, central abdominal pain since last night Constipation No fever, chills Denies chest pain/pressure, palpitations No shortness of breath PMFSH Social History Alcohol intake: current Alcohol intake frequency: holidays/special occasions only Patient Tobacco Use Status: Never used Tobacco Substance Use Type: Marijuana Advance Directives: Yes Advance Directives on File: Yes Advance Directives Date on File: 07/19/22 Meds Allergies Allergy/AdvReac Type Severity Reaction Status Date / Time No Known Allergies Allergy Verified 12/29/22 23:48 Home Medications Medication Instructions Recorded Confirmed Last Taken Type baclofen 10 mg tablet 10 mg PO BID 01/04/22 08/06/23 08/06/23 History cholecalciferol (vitamin D3) 25 25 mcg PO DAILY 01/04/22 08/06/23 08/06/23 History mcg (1,000 unit) tablet Physical Exam 2 Vital Signs and Narrative: Vital Signs: Last Vital Signs Temp 99.3 F 08/06/23 14:20 Pulse 107 H 08/06/23 14:20 Resp 19 08/06/23 14:20 BP 125/66 08/06/23 14:20 Pulse Ox 98 08/06/23 14:20 O2 Del Method Room Air 08/06/23 14:20 BMI result Body Mass Index 36.8 Constitutional: Alert, in no acute distress. Mental Status: Oriented to person, place and time. Eyes: Pupils are equal, round, and reactive to light. Ear, Nose, and Throat: Oropharynx clear, mucous membranes moist. Ears and nose without deformities. Trachea midline. Respiratory: Clear to auscultation bilaterally. No wheezing, rales, or rhonchi. Cardiovascular: S1, S2 regular. No murmurs, rubs, or gallops. Gastrointestinal: Abdomen soft, non-tender, non-distended, obese. +Bowel sounds. Neurologic: Cranial nerves II-XII are grossly intact bilaterally. No focal neurological deficits. Moves all extremities spontaneously. Skin: Warm, dry. Musculoskeletal: No cyanosis or clubbing. Extremities: No edema. Psychiatric: Normal mood and affect. Results Labs 08/06/23 13:50 08/06/23 13:50 Labs: Laboratory Results - last 24 hr 08/06/23 08/06/23 08/06/23 13:11 13:50 16:46 MCV 88.1 MCH 28.7 MCHC 32.5 RDW 13.7 Plt Count 355 MPV 9.3 L Immature Gran % (Auto) 0.3 Neut % (Auto) 81.8 H Lymph % (Auto) 11.1 L Pickett % (Auto) 6.5 Eos % (Auto) 0.0 Baso % (Auto) 0.3 Lymph # (Auto) 0.9 L Pickett # (Auto) 0.5 Eos # (Auto) 0.0 Baso # (Auto) 0.0 Abs Immat Gran (auto) 0.02 Absolute Neuts (auto) 6.3 Absolute Nucleated RBC 0.000 Nucleated RBC % (auto) 0.0 Anion Gap 13 Estim Creat Clear Calc 116.9 Estimated GFR > 60 Random Glucose 147 H Calcium 9.5 Magnesium 2.1 Total Bilirubin 0.7 AST 15 ALT 16 Alkaline Phosphatase 46 Total Protein 8.5 H Albumin 3.8 Urine Color Dark Yellow Urine Appearance Clear Urine pH 5.5 Ur Specific [place] >= 1.030 H Urine Protein Trace Urine Glucose (UA) Negative Urine Ketones Negative Urine Blood Negative Urine Nitrite Negative Ur Leukocyte Esterase Negative Influenza Type A (PCR) NEGATIVE Influenza Type B (PCR) NEGATIVE RSV RNA Qual (PCR) NEGATIVE SARS-CoV-2 RNA (RT-PCR) NEGATIVE Imaging Radiologist's Impressions: Impressions Abdomen/Pelvis CT 08/06/23 17:09 IMPRESSION: Dilated contrast-filled proximal small bowel. The distal small bowel is not dilated. Question proximal small bowel obstruction. Large amount of stool in the colon suggestive of constipation. The distal colon is dilated down to the rectum. Fleischner guidelines were followed. 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 Pt will be admitted to the hospital for treatment further evaluation of small-bowel obstruction. Small-bowel obstruction CT with evidence of possible proximal small-bowel obstruction Patient with an/V/abdominal pain since last evening Will keep NPO for now IVF Antiemetics, analgesics General surgery consult No longer complaining of N/V, will hold on NGT for now Constipation Reports has been 1 week since last bowel movement, normally has BM daily CT showing large amount of stool in the colon Will give Dulcolax 10 mg suppository x1 dose Dulcolax 10 mg p.r.n. 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 Zimmerman DVT Prophylaxis: On Xarelto Pt will require a hospitalization of at least two nights for treatment and further evaluation of small-bowel obstruction. Given that patient is NPO until resolution of his obstruction, he will need hospitalization for IVF, pain and nausea management, specialist consultation, and close monitoring in case symptoms worsened and surgical intervention is necessary. Quality Stroke Does the patient have a stroke diagnosis?: No VTE Prior VTE?: No VTE Risk Level:: Medical - moderate - high VTE Device Contraindication: Treatment Not Indicated VTE Drug Contraindication: N/A - Med Ordered
[2023-08-06 18:29] VITALS: BP 117/71; PULSE 100; RESP 19; TEMP 37.5
--- NOTE | 2023-08-06 18:39 | PHA.MEDREC ---
Pharmacy Consult ? Medication Reconciliation Pharmacy has completed the medication reconciliation. Patient reported all medications. Rebecca Mcdonald, CarmeloD
[2023-08-06 19:18] VITALS: BP 105/64; PULSE 95; RESP 18; O2SAT 97
[2023-08-06] MEDS: Morphine Sulfate 4 MG/ML CARTRIDGE IVPUSH (19:19)
[2023-08-06 20:55] VITALS: BP 105/82; PULSE 91; RESP 18; TEMP 37.5; O2SAT 98
[2023-08-06] MEDS: Baclofen 10 MG TABLET PO (21:35)
[2023-08-06] MEDS: Lactated Ringers 1,000 ML 100 ML IVCONT (21:35)
[2023-08-06] MEDS: bisacodyL 10 MG SUPP.RECT PR (21:35)
--- NOTE | 2023-08-06 22:40 | MHC.CM.ED ---
CM met with admitted patient with bed assignment pending. A&Ox3. Lives with S.O. She is his [employer]EC[employer]-38h/wk through [employer]. New HCP completed, reviewed and signed at patient request. Copies given and uploaded into [facility] [employer]. HCP is Rachael Michael ([phone]). Pt is wheelchair bound. No other services. PCP is Dr. Stewart at [facility] in [place]. Has appointment on 08/19 with PCP. D/C plan is home. ? [facility]. Pt agreeable if needed. No referrals made. Will need transportation home via BLS. CM will follow for discharge planning.
[2023-08-07] VITALS (8 sets, daily range): BP systolic 91–115; BP diastolic 50–72; PULSE 83–123; RESP 16–22; TEMP 36.4–37.5; O2SAT 92–100
[2023-08-07] MEDS: Acetaminophen 325 MG TABLET 650 MG PO ×2 (04:12→14:46)
--- NOTE | 2023-08-07 05:47 | HO.SKINPHOTO ---
Location:left hip Category:skin tear Stage: Length: Width: Depth: cm Location: Category: Stage: Length: Width: Depth: cm Location: Category: Stage: Length: Width: Depth: cm Location: Category: Stage: Length: Width: Depth: cm Location: Category: Stage: Length: Width: Depth: cm Location: Category: Stage: Length: Width: Depth: cm
--- NOTE | 2023-08-07 06:16 | PC.NURSE ---
Addendum entered by Danna Simon RN 08/07/23 06:48: Tylenol PO last dose too close to ordered IV dose. Per pharmacy, IV dose not given. Patient is resting comfortably with eyes close at this time. Original Note: BP soft 91/72 ,patient requests morphine for pain. Dr Zimmerman notified, IV Tylenol ordered. No other new orders.
[2023-08-07] MEDS: 0.9 % Sodium Chloride Flush 3 ML SYRINGE IVFLUSH (08:33)
[2023-08-07] MEDS: Cholecalciferol (Vitamin D3) 25 MCG TABLET PO (08:33)
[2023-08-07] MEDS: Baclofen 10 MG TABLET PO (08:33)
[2023-08-07] MEDS: Rivaroxaban 20 MG TABLET PO (08:33)
[2023-08-07] MEDS: Lactated Ringers 1,000 ML 100 ML IVCONT ×3 (08:40→23:03)
[2023-08-07] MEDS: Acetaminophen 1,000 MG/100 ML PIGGYBACK 400 MG IV (08:41)
--- NOTE | 2023-08-07 09:55 | P.CONGS_ITS ---
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 He says that this started the day prior to admission. He says that he had been constipated and has had no good bowel movement for over a week. He describes some nausea as well as vomiting at home. He had persistence of abdominal pain. He describes this as mostly in the middle of his abdomen. He therefore was brought to the ER yesterday. Currently he feels much better and describes some discomfort. He said he had been able to pass good amounts of BMs and flatus after he had a suppository last night. 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 He is poor mobility had been aggravated by a hip fracture 2021 and since then, he has had much less ability to get out of bed. He has had no vomiting since yesterday afternoon. He has no previous abdominal surgery. 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 Review of Systems 2 Constitutional: Constitutional: Denies chills and Denies fever(s) Cardiovascular: Cardiovascular: Denies chest pain, Denies dyspnea and Denies dyspnea on exertion Respiratory: Respiratory: Denies cough, Denies dyspnea and Denies dyspnea on exertion Gastrointestinal: Gastrointestinal: Denies hematochezia, Denies change in bowel habits and Reports constipation Genitourinary: Genitourinary: Denies hematuria and Denies difficulty urinating Musculoskeletal: Musculoskeletal: Denies back pain Comments: Unable to ambulate because of Guillain [place] and history of right hip fracture Neurologic: Denies focal weakness and Denies convulsions Psychiatric: Psychiatric: Denies depression and Denies mood swings [facility] Past Medical History Medical History (Updated 08/07/23 @ 10:00 by Francisco Brasher MD) Abdominal pain Morbid obesity Guillain-[place] syndrome Femur fracture, right DVT (deep venous thrombosis) Pulmonary embolism Social History Social History Household Members: Significant Other Housing: Apartment Do you presently have visiting nurse or other home services: No Alcohol intake: current Alcohol intake frequency: holidays/special occasions only Patient Tobacco Use Status: Never used Tobacco Smoked in Last 30 Days: No Use of substances other than those prescribed or required for medical reasons: No Substance Use Type: Marijuana Currently Displaying Signs/Symptoms of Drug Intoxication Withdrawal: No Have you been hit, kicked, punched, or otherwise hurt by someone within the past year? If so, by whom?: No Do you feel safe in your current relationship?: Yes Is there a partner from a previous relationship who is making you feel unsafe now?: No Are you made to feel afraid or neglected: No Advance Directives: Yes Advance Directives on File: Yes Advance Directives Date on File: 08/06/23 Do you have thoughts of harming others: None Do you have a plan to hurt others: No Plan Nutrition Risks: No Nutritional Risk Meds Allergies Allergy/AdvReac Type Severity Reaction Status Date / Time No Known Allergies Allergy Verified 12/29/22 23:48 Active Medications: Current Medications Acetaminophen (Acetaminophen 325 Mg Tablet) 650 mg PO Q6H PRN PRN Reason: Pain, Mild (Pain Scale 1-3) Last Admin: 08/07/23 04:12 Dose: 650 mg Baclofen (Baclofen 10 Mg Tablet) 10 mg PO BID [facility] Last Admin: 08/07/23 08:33 Dose: 10 mg Bisacodyl (Bisacodyl 10 Mg Supp.Rect) 10 mg TN DAILY PRN PRN Reason: Constipation Lactated Ringer's (Lr) 1,000 mls @ 100 mls/hr IVCONT .Q10H [facility] Last Admin: 08/07/23 08:40 Dose: 100 mls/hr Melatonin (Melatonin 3 Mg Tablet) 6 mg PO BEDTIME PRN PRN Reason: Insomnia Morphine Sulfate (Morphine Sulfate 4 Mg/Ml Cartridge) 4 mg IVPUSH Q4H PRN; Protocol PRN Reason: Pain, Severe (Pain Scale 7-10) Ondansetron HCl (Ondansetron Hcl 4 Mg/2 Ml Vial) 4 mg IVPUSH Q6H PRN PRN Reason: Nausea and Vomiting Rivaroxaban (Rivaroxaban 20 Mg Tablet) 20 mg PO DAILY [facility] Last Admin: 08/07/23 08:33 Dose: 20 mg Sodium Chloride (0.9 % Sodium Chloride Flush 3 Ml Syringe) 3 ml IVFLUSH QSHIFT [facility] Last Admin: 08/07/23 08:33 Dose: 3 ml Vitamin D (Cholecalciferol (Vitamin D3) 25 Mcg Tablet) 25 mcg PO DAILY [facility] Last Admin: 08/07/23 08:33 Dose: 25 mcg Home Medications Medication Instructions Recorded Confirmed Last Taken Type baclofen 10 mg tablet 10 mg PO BID 01/04/22 08/06/23 08/06/23 History cholecalciferol (vitamin D3) 25 25 mcg PO DAILY 01/04/22 08/06/23 08/06/23 History mcg (1,000 unit) tablet Physical Exam 2 Vital Signs: Vital Signs: Last Vital Signs Temp 98.6 F 08/07/23 07:48 Pulse 120 H 08/07/23 07:48 Resp 18 08/07/23 07:48 BP 91/55 L 08/07/23 07:48 Pulse Ox 100 08/07/23 07:48 O2 Del Method Room Air 08/07/23 07:48 BMI result Body Mass Index 36.8 Const: Other: Morbidly obese General: comfortable and no acute distress Orientation/consciousness: p atient oriented x3 Neck: Neck: Yes no lymphadenopathy Resp: Auscultation: clear to auscultation bilaterally Cardio: Rhythm: regular rhythm GI: Other: Obese, soft, no guarding, no rebound, no significant tenderness Palpation (GI): Soft to palpation, nontender and no guarding Neuro: Other: Able to move lower extremities with gravity General: patient oriented x3 Results Labs 08/06/23 13:50 08/06/23 13:50 Labs: Abnormal lab results 08/06/23 08/06/23 Range/Units 13:50 16:46 MPV 9.3 L (9.4-12.4) fL Neut % (Auto) 81.8 H (45-73) % Lymph % (Auto) 11.1 L (20-40) % Lymph # (Auto) 0.9 L (1.2-4.9) X10*3/uL BUN 22 H (9-16) mg/dL Random Glucose 147 H (60-115) mg/dL Total Protein 8.5 H (6.5-8.0) g/dL Ur Specific [place] >= 1.030 H (1.005-1.025) Short CBC 08/06/23 Range/Units 13:50 WBC 7.7 (4.8-10.8) X10*3/uL Hgb 16.6 (14.0-18.0) g/dl Hct 51.0 (42.0-52.0) % Plt Count 355 (160-400) X10*3/uL BMP 08/06/23 13:50 Sodium 137 Potassium 4.4 Chloride 102 Carbon Dioxide 26 BUN 22 H Creatinine 0.87 Calcium 9.5 Liver Function 08/06/23 Range/Units 13:50 Total Bilirubin 0.7 (0.0-1.0) mg/dL AST 15 (5-37) U/L ALT 16 (0-40) U/L Alkaline Phosphatase 46 (39-117) U/L Albumin 3.8 (3.5-5.0) g/dL Urine 08/06/23 Range/Units 16:46 Urine Color Dark Yellow Urine Appearance Clear Urine pH 5.5 (5.0-9.0) Ur Specific [place] >= 1.030 H (1.005-1.025) Urine Protein Trace (Neg-Trace) mg/dL Urine Glucose (UA) Negative (Negative) mg/dL All other labs normal. Laboratory Results WBC 7.7 X10*3/uL (4.8-10.8) 08/06/23 13:50 RBC 5.79 X10*6/uL (4.60-5.80) 08/06/23 13:50 Hgb 16.6 g/dl (14.0-18.0) 08/06/23 13:50 Hct 51.0 % (42.0-52.0) 08/06/23 13:50 MCV 88.1 fL (80.0-98.0) 08/06/23 13:50 MCH 28.7 pg (27.0-33.0) 08/06/23 13:50 MCHC 32.5 g/dl (31.0-36.0) 08/06/23 13:50 RDW 13.7 % (11.0-16.0) 08/06/23 13:50 Plt Count 355 X10*3/uL (160-400) 08/06/23 13:50 MPV 9.3 fL (9.4-12.4) L 08/06/23 13:50 Immature Gran % (Auto) 0.3 % (0.0-0.4) 08/06/23 13:50 Neut % (Auto) 81.8 % (45-73) H 08/06/23 13:50 Lymph % (Auto) 11.1 % (20-40) L 08/06/23 13:50 [place] % (Auto) 6.5 % (2-11) 08/06/23 13:50 Eos % (Auto) 0.0 % (0-4) 08/06/23 13:50 Baso % (Auto) 0.3 % (0-2) 08/06/23 13:50 Lymph # (Auto) 0.9 X10*3/uL (1.2-4.9) L 08/06/23 13:50 [place] # (Auto) 0.5 X10*3/uL (0.1-1.2) 08/06/23 13:50 Eos # (Auto) 0.0 X10*3/uL (0.0-0.4) 08/06/23 13:50 Baso # (Auto) 0.0 X10*3/uL (0.0-0.2) 08/06/23 13:50 Abs Immat Gran (auto) 0.02 X10*3/uL (0.00-0.03) 08/06/23 13:50 Absolute Neuts (auto) 6.3 x10*3/uL (2.0-8.3) 08/06/23 13:50 Absolute Nucleated RBC 0.000 X10*3/uL (0.0-0.012) 08/06/23 13:50 Nucleated RBC % (auto) 0.0 /100WBC (0.0-0.2) 08/06/23 13:50 Sodium 137 mmol/L (135-145) 08/06/23 13:50 Potassium 4.4 mmol/L (3.3-5.1) 08/06/23 13:50 Chloride 102 mmol/L (96-108) 08/06/23 13:50 Carbon Dioxide 26 mmol/L (22-29) 08/06/23 13:50 Anion Gap 13 (12-20) 08/06/23 13:50 BUN 22 mg/dL (9-16) H 08/06/23 13:50 Creatinine 0.87 mg/dL (0.5-1.4) 08/06/23 13:50 Estim Creat Clear Calc 116.9 08/06/23 13:50 Estimated GFR > 60 08/06/23 13:50 Random Glucose 147 mg/dL (60-115) H 08/06/23 13:50 Calcium 9.5 mg/dL (8.4-10.2) 08/06/23 13:50 Magnesium 2.1 mg/dL (1.6-2.6) 08/06/23 13:50 Total Bilirubin 0.7 mg/dL (0.0-1.0) 08/06/23 13:50 AST 15 U/L (5-37) 08/06/23 13:50 ALT 16 U/L (0-40) 08/06/23 13:50 Alkaline Phosphatase 46 U/L (39-117) 08/06/23 13:50 Total Protein 8.5 g/dL (6.5-8.0) H 08/06/23 13:50 Albumin 3.8 g/dL (3.5-5.0) 08/06/23 13:50 Urine Color Dark Yellow 08/06/23 16:46 Urine Appearance Clear 08/06/23 16:46 Urine pH 5.5 (5.0-9.0) 08/06/23 16:46 Ur Specific [place] >= 1.030 (1.005-1.025) H 08/06/23 16:46 Urine Protein Trace mg/dL (Neg-Trace) 08/06/23 16:46 Urine Glucose (UA) Negative mg/dL (Negative) 08/06/23 16:46 Urine Ketones Negative mg/dL (Negative) 08/06/23 16:46 Urine Blood Negative (Negative) 08/06/23 16:46 Urine Nitrite Negative (Negative) 08/06/23 16:46 Ur Leukocyte Esterase Negative (Negative) 08/06/23 16:46 Influenza Type A (PCR) NEGATIVE (Negative) 08/06/23 13:11 Influenza Type B (PCR) NEGATIVE (Negative) 08/06/23 13:11 RSV RNA Qual (PCR) NEGATIVE (Negative) 08/06/23 13:11 SARS-CoV-2 RNA (RT-PCR) NEGATIVE (Negative) 08/06/23 13:11 Impressions Abdomen/Pelvis CT 08/06/23 17:09 IMPRESSION: Dilated contrast-filled proximal small bowel. The distal small bowel is not dilated. Question proximal small bowel obstruction. Large amount of stool in the colon suggestive of constipation. The distal colon is dilated down to the rectum. Fleischner guidelines were followed. Imaging Abdomen CT scan report/results: report reviewed and image reviewed CT scan - pelvis: report reviewed and image reviewed Assessment and Plan (1) Abdominal pain: Status: Acute He was admitted for abdominal pain and vomiting yesterday. I have reviewed his CAT scan. There is some dilatation of the proximal bowel loops but no transition point. The distal small bowel loops appear to have normal caliber. There was note of heavy stool volume in the sigmoid and the rectum Overall picture suggest constipation more likely to be the etiology of his abdominal pain. Ileus or partial small bowel osbtructionare still considerations. He has responded to suppositories last night. He has been passing flatus and BMs. He may benefit from Fleet enemas as well His abdominal exam is benign. He feels much better this morning. He may be able to start on clear liquids and see how he does with this today. I will follow along while he is in the hospital. Procedures Date of Service Date of Service: 08/08/23
--- NOTE | 2023-08-07 10:59 | HO.PM.IMPN ---
Subjective Subjective Date of Service: 08/07/23 Interval History: No episodes of nausea or vomiting overnight. Patient denies abdominal discomfort. Patient states he had small amount of bowel movement and is passing gas. Review of Systems All 12 review of systems negative except as noted above Cardiovascular Cardiovascular: Reports no additional cardiovascular complaints Respiratory Respiratory: Reports no additional respiratory complaints Genitourinary Genitourinary: Reports no additional male genitourinary complaints Physical Exam Vital Signs: Vital Signs: Last Vital Signs Temp 97.6 F 08/07/23 10:54 Pulse 118 H 08/07/23 10:54 Resp 16 08/07/23 10:54 BP 104/51 L 08/07/23 10:54 Pulse Ox 93 08/07/23 10:54 O2 Del Method Room Air 08/07/23 10:54 BMI result Body Mass Index 36.8 Middle-aged male lying in bed in no distress Neck supple, no JVD Regular rate and rhythm, S1-S2 heard Regular breath sounds bilaterally, no wheezing or crackles appreciated Abdomen soft nontender, no guarding, no rigidity Patient is awake, alert and oriented to self, place, time and person ; no focal motor deficit Psych: Normal mood No pedal edema Objective Data Active Medications Acetaminophen (Acetaminophen 325 Mg Tablet) 650 mg PO Q6H PRN PRN Reason: Pain, Mild (Pain Scale 1-3) Last Admin: 08/07/23 04:12 Dose: 650 mg Documented By: ИВАН Baclofen (Baclofen 10 Mg Tablet) 10 mg PO BID [facility] Last Admin: 08/07/23 08:33 Dose: 10 mg Documented By: LIDIA Bisacodyl (Bisacodyl 10 Mg Supp.Rect) 10 mg [place] DAILY PRN PRN Reason: Constipation Lactated Ringer's (Lr) 1,000 mls @ 100 mls/hr IVCONT .Q10H [facility] Last Admin: 08/07/23 08:40 Dose: 100 mls/hr Documented By: LIDIA Melatonin (Melatonin 3 Mg Tablet) 6 mg PO BEDTIME PRN PRN Reason: Insomnia Morphine Sulfate (Morphine Sulfate 4 Mg/Ml Cartridge) 4 mg IVPUSH Q4H PRN; Protocol PRN Reason: Pain, Severe (Pain Scale 7-10) Ondansetron HCl (Ondansetron Hcl 4 Mg/2 Ml Vial) 4 mg IVPUSH Q6H PRN PRN Reason: Nausea and Vomiting Rivaroxaban (Rivaroxaban 20 Mg Tablet) 20 mg PO DAILY [facility] Last Admin: 08/07/23 08:33 Dose: 20 mg Documented By: LIDIA Simethicone (Simethicone 80 Mg Tab.Chew) 80 mg PO TID PRN PRN Reason: gas Sodium Chloride (0.9 % Sodium Chloride Flush 3 Ml Syringe) 3 ml IVFLUSH QSHIFT [facility] Last Admin: 08/07/23 08:33 Dose: 3 ml Documented By: LIDIA Vitamin D (Cholecalciferol (Vitamin D3) 25 Mcg Tablet) 25 mcg PO DAILY [facility] Last Admin: 08/07/23 08:33 Dose: 25 mcg Documented By: LIDIA Labs 08/06/23 13:50 08/06/23 13:50 Labs: Laboratory Results - last 24 hr 08/06/23 08/06/23 08/06/23 13:11 13:50 16:46 MCV 88.1 MCH 28.7 MCHC 32.5 RDW 13.7 Plt Count 355 MPV 9.3 L Immature Gran % (Auto) 0.3 Neut % (Auto) 81.8 H Lymph % (Auto) 11.1 L [place] % (Auto) 6.5 Eos % (Auto) 0.0 Baso % (Auto) 0.3 Lymph # (Auto) 0.9 L [place] # (Auto) 0.5 Eos # (Auto) 0.0 Baso # (Auto) 0.0 Abs Immat Gran (auto) 0.02 Absolute Neuts (auto) 6.3 Absolute Nucleated RBC 0.000 Nucleated RBC % (auto) 0.0 Anion Gap 13 Estim Creat Clear Calc 116.9 Estimated GFR > 60 Random Glucose 147 H Calcium 9.5 Magnesium 2.1 Total Bilirubin 0.7 AST 15 ALT 16 Alkaline Phosphatase 46 Total Protein 8.5 H Albumin 3.8 Urine Color Dark Yellow Urine Appearance Clear Urine pH 5.5 Ur Specific [place] >= 1.030 H Urine Protein Trace Urine Glucose (UA) Negative Urine Ketones Negative Urine Blood Negative Urine Nitrite Negative Ur Leukocyte Esterase Negative Influenza Type A (PCR) NEGATIVE Influenza Type B (PCR) NEGATIVE RSV RNA Qual (PCR) NEGATIVE SARS-CoV-2 RNA (RT-PCR) NEGATIVE Assessment and Plan (1) Small bowel obstruction: Status: Acute Plan Pt is a 53-year-old male with a PMH significant for 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 Pt will be admitted to the hospital for treatment further evaluation of small-bowel obstruction. Small-bowel obstruction CT with evidence of possible proximal small-bowel obstruction Patient advanced to clear liquid diet today Antiemetics, analgesics General surgery on baord Constipation Dulcolax 10 mg p.r.n. 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 Specialist on board Quality Stroke Does the patient have a stroke diagnosis?: No VTE Prior VTE?: No VTE Risk Level:: Medical - moderate - high VTE Device Contraindication: Treatment Not Indicated VTE Drug Contraindication: N/A - Med Ordered
[2023-08-07] MEDS: 0.9 % Sodium Chloride 1,000 ML 999 ML IV (11:32)
[2023-08-07] MEDS: Simethicone 80 MG TAB.CHEW PO (11:33)
[2023-08-07] MEDS: Calcium Carbonate 750 MG TAB.CHEW PO ×2 (13:11→18:58)
--- NOTE | 2023-08-07 15:23 | PC.NURSE ---
Patient refusing to go to xray today. Says he would rather go tomorrow. Provider and radiology notified. Radiology will try to get xray done first thing tomorrow morning.
--- NOTE | 2023-08-07 17:18 | PC.NURSE ---
Large BM this afternoon , vomited x 1 , c/o heartburn
[2023-08-07] MEDS: Famotidine 20 MG TABLET PO (17:45)
[2023-08-07] MEDS: ondansetron HCL 4 MG/2 ML VIAL IVPUSH (20:34)
[2023-08-08 00:50] VITALS: PULSE 118
[2023-08-08 05:41] VITALS: BP 95/58; PULSE 113
[2023-08-08] MEDS: Acetaminophen 325 MG TABLET 650 MG PO ×2 (05:44→13:39)
--- NOTE | 2023-08-08 06:58 | PC.NURSE ---
Urine output improved slightly overnight. 275mL in urinal, though dark romulo in color. Encouraged PO fluid intake.
[2023-08-08 07:16] VITALS: BP 120/68; PULSE 119; RESP 18; TEMP 35.8; O2SAT 96
[2023-08-08 07:29] LABS: Glucose, Whole Blood 169 mg/dL (60-115)
[2023-08-08] MEDS: Morphine Sulfate 4 MG/ML CARTRIDGE IVPUSH ×4 (07:42→22:31)
[2023-08-08] MEDS: Famotidine 20 MG TABLET PO (07:42)
[2023-08-08] MEDS: Rivaroxaban 20 MG TABLET PO (07:43)
[2023-08-08] MEDS: Baclofen 10 MG TABLET PO ×2 (07:43→20:36)
[2023-08-08] MEDS: Lactated Ringers 1,000 ML 100 ML IVCONT (07:43)
[2023-08-08] MEDS: 0.9 % Sodium Chloride Flush 3 ML SYRINGE IVFLUSH ×2 (07:43→23:51)
[2023-08-08] MEDS: Cholecalciferol (Vitamin D3) 25 MCG TABLET PO (07:43)
--- NOTE | 2023-08-08 10:06 | PM.PNGS ---
Subjective Subjective Date of Service: 08/08/23 Interval history: no new complaints smearing of stools overnight had loose stools yesterday vomitted yesterday - no emesis overnight describes occasional discomfort on abd Physical Exam Vital Signs: Vital Signs: Last Vital Signs Temp 96.5 F L 08/08/23 07:16 Pulse 119 H 08/08/23 07:16 Resp 18 08/08/23 07:16 BP 120/68 08/08/23 07:16 Pulse Ox 96 08/08/23 07:16 O2 Del Method Room Air 08/08/23 07:16 BMI result Body Mass Index 36.8 Const: General: no acute distress Resp: Effort & Inspection: normal respiratory effort Cardio: Rate: regular rate GI: Palpation (GI): Soft to palpation, not firm, nontender and no guarding Objective Data Active Medications Acetaminophen (Acetaminophen 325 Mg Tablet) 650 mg PO Q6H PRN PRN Reason: Pain, Mild (Pain Scale 1-3) Last Admin: 08/08/23 05:44 Dose: 650 mg Documented By: CHANELL Baclofen (Baclofen 10 Mg Tablet) 10 mg PO BID [facility] Last Admin: 08/08/23 07:43 Dose: 10 mg Documented By: LIDIA Bisacodyl (Bisacodyl 10 Mg Supp.Rect) 10 mg [place] DAILY PRN PRN Reason: Constipation Calcium Carbonate (Calcium Carbonate 750 Mg Tab.Chew) 750 mg PO Q4H PRN PRN Reason: Heartburn Last Admin: 08/07/23 18:58 Dose: 750 mg Documented By: YADIRA Famotidine (Famotidine 20 Mg Tablet) 20 mg PO DAILY [facility] Last Admin: 08/08/23 07:42 Dose: 20 mg Documented By: LIDIA Lactated Ringer's (Lr) 1,000 mls @ 100 mls/hr IVCONT .Q10H [facility] Last Admin: 08/08/23 07:43 Dose: 100 mls/hr Documented By: LIDIA Melatonin (Melatonin 3 Mg Tablet) 6 mg PO BEDTIME PRN PRN Reason: Insomnia Morphine Sulfate (Morphine Sulfate 4 Mg/Ml Cartridge) 4 mg IVPUSH Q4H PRN; Protocol PRN Reason: Pain, Severe (Pain Scale 7-10) Last Admin: 08/08/23 07:42 Dose: 4 mg Documented By: LIDIA Ondansetron HCl (Ondansetron Hcl 4 Mg/2 Ml Vial) 4 mg IVPUSH Q6H PRN PRN Reason: Nausea and Vomiting Last Admin: 08/07/23 20:34 Dose: 4 mg Documented By: YADIRA Rivaroxaban (Rivaroxaban 20 Mg Tablet) 20 mg PO DAILY [facility] Last Admin: 08/08/23 07:43 Dose: 20 mg Documented By: LIDIA Simethicone (Simethicone 80 Mg Tab.Chew) 80 mg PO TID PRN PRN Reason: gas Last Admin: 08/07/23 11:33 Dose: 80 mg Documented By: LIDIA Sodium Chloride (0.9 % Sodium Chloride Flush 3 Ml Syringe) 3 ml IVFLUSH QSHIFT [facility] Last Admin: 08/08/23 07:43 Dose: 3 ml Documented By: LIDIA Vitamin D (Cholecalciferol (Vitamin D3) 25 Mcg Tablet) 25 mcg PO DAILY [facility] Last Admin: 08/08/23 07:43 Dose: 25 mcg Documented By: LIDIA Labs 08/06/23 13:50 08/06/23 13:50 Labs: Laboratory Results - last 24 hr 08/08/23 07:21 POC Glucose 169 H Procedures Date of Service Date of Service: 08/08/23 Progress Note: A&P Assessment and plan (1) Abdominal pain: Status: Acute Assessment and Plan: likely from constipation UO poor as per nursing staff check labs today abd soft will check KUB today exam benign Time Spent With Patient Time: Total time managing care of this patient today ____ minutes. Quality Stroke Does the patient have a stroke diagnosis?: No VTE Prior VTE?: No VTE Risk Level:: Medical - moderate - high VTE Device Contraindication: Treatment Not Indicated VTE Drug Contraindication: N/A - Med Ordered
--- NOTE | 2023-08-08 10:35 | P.PNIM_ITS ---
Subjective Subjective Date of Service: 08/08/23 Interval History: Patient states he had 2 episodes of vomiting yesterday. He continues to have belly discomfort with clear liquid diet. States he is afraid and does not want to advance diet to solids. Poor urine output. Continues to be tachycardic. Did have tiny amount of stools yesterday Review of Systems All 12 review of systems negative except as noted above Cardiovascular Cardiovascular: Reports no additional cardiovascular complaints Respiratory Respiratory: Reports no additional respiratory complaints Genitourinary Genitourinary: Reports no additional male genitourinary complaints Physical Exam 2 Vital Signs: Vital Signs: Last Vital Signs Temp 96.5 F L 08/08/23 07:16 Pulse 119 H 08/08/23 07:16 Resp 18 08/08/23 07:16 BP 120/68 08/08/23 07:16 Pulse Ox 96 08/08/23 07:16 O2 Del Method Room Air 08/08/23 07:16 BMI result Body Mass Index 36.8 Middle-aged male lying in bed in no distress Neck supple, no JVD Regular rate and rhythm, S1-S2 heard Regular breath sounds bilaterally, no wheezing or crackles appreciated Abdomen soft nontender, no guarding, no rigidity Patient is awake, alert and oriented to self, place, time and person ; no focal motor deficit Psych: Normal mood No pedal edema Objective Data Active Medications Acetaminophen (Acetaminophen 325 Mg Tablet) 650 mg PO Q6H PRN PRN Reason: Pain, Mild (Pain Scale 1-3) Last Admin: 08/08/23 05:44 Dose: 650 mg Documented By: CHANELL Baclofen (Baclofen 10 Mg Tablet) 10 mg PO BID [facility] Last Admin: 08/08/23 07:43 Dose: 10 mg Documented By: LIDIA Bisacodyl (Bisacodyl 10 Mg Supp.Rect) 10 mg [place] DAILY PRN PRN Reason: Constipation Calcium Carbonate (Calcium Carbonate 750 Mg Tab.Chew) 750 mg PO Q4H PRN PRN Reason: Heartburn Last Admin: 08/07/23 18:58 Dose: 750 mg Documented By: YADIRA Famotidine (Famotidine 20 Mg Tablet) 20 mg PO DAILY [facility] Last Admin: 08/08/23 07:42 Dose: 20 mg Documented By: LIDIA Lactated Ringer's (Lr) 1,000 mls @ 100 mls/hr IVCONT .Q10H [facility] Last Admin: 08/08/23 07:43 Dose: 100 mls/hr Documented By: LIDIA Melatonin (Melatonin 3 Mg Tablet) 6 mg PO BEDTIME PRN PRN Reason: Insomnia Morphine Sulfate (Morphine Sulfate 4 Mg/Ml Cartridge) 4 mg IVPUSH Q4H PRN; Protocol PRN Reason: Pain, Severe (Pain Scale 7-10) Last Admin: 08/08/23 07:42 Dose: 4 mg Documented By: LIDIA Ondansetron HCl (Ondansetron Hcl 4 Mg/2 Ml Vial) 4 mg IVPUSH Q6H PRN PRN Reason: Nausea and Vomiting Last Admin: 08/07/23 20:34 Dose: 4 mg Documented By: YADIRA Rivaroxaban (Rivaroxaban 20 Mg Tablet) 20 mg PO DAILY [facility] Last Admin: 08/08/23 07:43 Dose: 20 mg Documented By: LIDIA Simethicone (Simethicone 80 Mg Tab.Chew) 80 mg PO TID PRN PRN Reason: gas Last Admin: 08/07/23 11:33 Dose: 80 mg Documented By: LIDIA Sodium Chloride (0.9 % Sodium Chloride Flush 3 Ml Syringe) 3 ml IVFLUSH QSHIFT [facility] Last Admin: 08/08/23 07:43 Dose: 3 ml Documented By: LIDIA Vitamin D (Cholecalciferol (Vitamin D3) 25 Mcg Tablet) 25 mcg PO DAILY [facility] Last Admin: 08/08/23 07:43 Dose: 25 mcg Documented By: LIDIA Labs 08/06/23 13:50 08/06/23 13:50 Labs: Laboratory Results - last 24 hr 08/08/23 07:21 POC Glucose 169 H Assessment and Plan (1) Abdominal pain: Status: Acute Plan Pt is a 53-year-old male with a PMH significant for 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 Pt will be admitted to the hospital for treatment further evaluation of small-bowel obstruction. Abdominal pain Small-bowel obstruction versus constipation CT with evidence of possible proximal small-bowel obstruction Patient advanced to clear liquid diet, 08/06. Continues to have abdominal discomfort and vomiting. Hold off on further advancing diet. KUB pending. 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 Outpatient Cardiology follow-up Obesity class II Weight loss encouraged Full Code DVT Prophylaxis: On Xarelto Reason for continued hospitalization: Monitoring of bowel function, awaiting returned to normal. Specialist on board Quality Stroke Does the patient have a stroke diagnosis?: No VTE Prior VTE?: No VTE Risk Level:: Medical - moderate - high VTE Device Contraindication: Treatment Not Indicated VTE Drug Contraindication: N/A - Med Ordered
[2023-08-08 11:43] VITALS: BP 110/55; PULSE 109; RESP 16; O2SAT 94
--- NOTE | 2023-08-08 12:01 | PM.EVENT ---
Event Note Date of Service: 08/08/23 Event Note: pt had KUB done -this shows dilated small bowel loops heavy stool volume in rectum ordered for small bowel series tomorrow keep on clears for now abd remains soft and benign appears comfortable pt reported by nurse to have inconsistent UO - may be incontinent? - follow SORAIDA mckoy Hospitalist service Time Spent With Patient Time: Total time managing care of this patient today ____ minutes.
[2023-08-08] MEDS: Sodium Phosphate,Mono-Dibasic 133 ML ENEMA PR (14:23)
[2023-08-08 15:07] VITALS: BP 117/72; PULSE 97; RESP 18; TEMP 36.2; O2SAT 95
[2023-08-08 15:07] LABS: Hematocrit 47.7 % (42.0-52.0); Hemoglobin 15.8 g/dl (14.0-18.0); Mean Corpuscular HGB Conc 33.1 g/dl (31.0-36.0); Mean Corpuscular Hemoglobin 28.7 pg (27.0-33.0); Mean Corpuscular Volume 86.6 fL (80.0-98.0); Mean Platelet Volume 10.7 fL (9.4-12.4); Platelet Count 311 X10*3/uL (160-400); Red Blood Count 5.51 X10*6/uL (4.60-5.80); Red Cell Distribution Width 14.3 % (11.0-16.0); White Blood Count 12.7 X10*3/uL (4.8-10.8)
[2023-08-08 15:33] LABS: Anion Gap 19 (12-20); Blood Urea Nitrogen 61 mg/dL (9-16); Calcium 9.3 mg/dL (8.4-10.2); Carbon Dioxide 21 mmol/L (22-29); Chloride 103 mmol/L (96-108); Estimated Glomerular Filt Rate 30; Glucose Random 164 mg/dL (60-115); Sodium 139 mmol/L (135-145)
[2023-08-08 15:34] LABS: Band Neutrophils Percent 42 % (3-5); Basophils Abs Manual 0.1 X10*3/uL (0.0-0.2); Basophils Percent Manual 1 % (0-2); Lymphocytes Percent Manual 8 % (20-40); Metamyelocytes Percent 8 %; Monocytes Absolute Manual 1.7 X10*3/uL (0.1-1.2); Monocytes Percent Manual 13 % (2-11); Myelocytes Absolute 0.3 X10*/uL; Myelocytes Percent 2 %; Neutrophils Absolute Manual 8.6 X10*3/uL (2.0-8.3); Neutrophils Percent Manual 26 % (45-73)
[2023-08-08 15:36] LABS: Acanthocytes 1+ (0-2) /OIF; Platelet Estimate NORMAL (NORMAL); RBC Morphology NOTED; Toxic Granulation PRESENT
[2023-08-08 15:37] LABS: Platelet Morphology Comment NORMAL
[2023-08-08] MEDS: Calcium Carbonate 750 MG TAB.CHEW PO (15:52)
[2023-08-08] MEDS: Simethicone 80 MG TAB.CHEW PO ×2 (15:52→22:32)
--- NOTE | 2023-08-08 16:44 | PC.NURSE ---
Tanner kelley from a Adeola from [facility], who reports she has a provider in office who needs to speak to another provider regarding this patient with critical results. Information forwarded to Dr. Rowell, and then to covering Dr. Tai.
--- NOTE | 2023-08-08 16:53 | PM.EVENT ---
Event Note Date of Service: 08/08/23 Event Note: Noted patient with leukocytosis and bands. Meets SIRS criteria. Will order lactic acid, blood cultures, empiric abx. Also has ANA. Close monitor of urine output and creatinine. UA ordered Time Spent With Patient Time: Total time managing care of this patient today ____ minutes.
--- NOTE | 2023-08-08 17:29 | PM.EVENT ---
Event Note Date of Service: 08/08/23 Event Note: Received phone call from [place] radiologist in regard to KUB that was obtained this afternoon he was noted to have dilated small bowel loops concerning for small bowel obstruction beside constipation Patient seen examined at present patient complaining of abdominal pain with movement mostly when trying to get up or turn in bed denies nausea vomiting, had a bowel movement after Fleet enema, denies worsening abdominal pain, able to tolerate clear liquid diet. Patient also noted to have elevated WBC count, tachycardia question sepsis related to intra-abdominal infection Follow lactic acid, blood cultures x2 Started on IV ceftriaxone and IV Flagyl Follow clinical course closely Acute kidney injury likely due to hypotension , continue IV Ringer lactate increased to 150 mL/hours monitor electrolytes and renal function avoid nephrotoxins and hypotension. Time Spent With Patient Time: Total time managing care of this patient today ____ minutes.
[2023-08-08] MEDS: Lactated Ringers 1,000 ML 999 ML IV (17:39)
[2023-08-08 17:42] LABS: Toxic Vacuolation PRESENT
[2023-08-08 17:55] LABS: Lactic Acid 2.3 mmol/L (0.5-2.0)
--- NOTE | 2023-08-08 18:10 | PM.EVENT ---
Event Note Date of Service: 08/09/23 Event Note: pt labs show ANA lactate mildly elevated he appears comfortable says he has had multtiple BMs and flatus all day abd soft and benign likely volume depleted no vomitting today passing flatus SB series ordered for tomorrow in view of SB dilatation on CT and KUB Time Spent With Patient Time: Total time managing care of this patient today ____ minutes.
[2023-08-08] MEDS: cefTRIAXone sodium 1 GM in 0.9 % Sodium Chloride 50 ML IV (18:54)
[2023-08-08 19:29] LABS: Reflex Lactate? Lactic Acid Added
[2023-08-08] MEDS: Lactated Ringers 1,000 ML 150 ML IVCONT (19:37)
[2023-08-08] MEDS: metroNIDAZOLE/NS 500 MG/100 ML PIGGYBACK 100 MG IV (19:39)
[2023-08-08 20:17] LABS: ~Lactic Acid-LAB USE ONLY 2.6 mmol/L (0.5-2.0)
[2023-08-08 20:42] LABS: Appearance Urine Cloudy; Color Urine Dark Yellow; Glucose Urine UA Negative (Negative); Leukocyte Esterase Urine Negative (Negative); Nitrite Urine Negative (Negative); Specific Gravity - Urine 1.025 (1.005-1.025); UMIC TRIGGER UACC YES; Urine Blood Trace (Negative); Urine Ketones Negative (Negative); Urine Protein Trace mg/dL (Neg-Trace)
[2023-08-08 20:52] LABS: Bacteria Urine None Seen (None Seen); Squamous Epithelial Cell Urine 0-2 /HPF (0-2); WBC Urine 0-5 /HPF (0-5)
[2023-08-08 21:23] LABS: Creatinine Urine 220.06 mg/dL
[2023-08-08 22:00] LABS: Reflex Lactate? 2 Y
--- NOTE | 2023-08-08 22:40 | PC.NURSE ---
Pt vomited about 800cc brown/yellow fluid while in room, reported to dr rodriguez, denies any nausea pre or post emesis.
[2023-08-08 23:41] VITALS: BP 118/66; PULSE 99; RESP 16; TEMP 36.1; O2SAT 95
[2023-08-08] MEDS: Prochlorperazine Edisylate 10 MG/2 ML VIAL 5 MG IVPUSH (23:51)
[2023-08-09] VITALS (10 sets, daily range): BP systolic 96–121; BP diastolic 54–79; PULSE 100–110; RESP 17–22; TEMP 36.5–37.2; O2SAT 93–99; BMI 36.8; BMI 51.5
[2023-08-09 00:04] LABS: ~Lactic Acid-LAB USE ONLY 2.1 mmol/L (0.5-2.0)
[2023-08-09 00:39] LABS: Cancel Lactic Acid Canceled
[2023-08-09] MEDS: metroNIDAZOLE/NS 500 MG/100 ML PIGGYBACK 100 MG IV ×2 (02:25→15:18)
[2023-08-09] MEDS: Morphine Sulfate 4 MG/ML CARTRIDGE IVPUSH ×2 (02:32→09:21)
[2023-08-09] MEDS: Calcium Carbonate 750 MG TAB.CHEW PO (04:22)
[2023-08-09] MEDS: Lactated Ringers 1,000 ML 150 ML IVCONT (04:25)
[2023-08-09 07:03] LABS: Hematocrit 46.6 % (42.0-52.0); Hemoglobin 15.1 g/dl (14.0-18.0); Mean Corpuscular HGB Conc 32.4 g/dl (31.0-36.0); Mean Corpuscular Hemoglobin 28.5 pg (27.0-33.0); Mean Corpuscular Volume 88.1 fL (80.0-98.0); Mean Platelet Volume 11.3 fL (9.4-12.4); NRBC Pct Auto 0.3 /100WBC (0.0-0.2); Platelet Count 302 X10*3/uL (160-400); Red Blood Count 5.29 X10*6/uL (4.60-5.80); Red Cell Distribution Width 14.5 % (11.0-16.0)
[2023-08-09 07:13] LABS: WBC ABN SCTR FOR CBC 1
[2023-08-09 07:41] LABS: Band Neutrophils Percent 41 % (3-5); Lymphocytes Percent Manual 10 % (20-40); Metamyelocytes Percent 4 %; Monocytes Percent Manual 21 % (2-11); Myelocytes Percent 1 %; Neutrophils Percent Manual 23 % (45-73)
[2023-08-09 07:42] LABS: RBC Morphology NOTED
[2023-08-09 07:43] LABS: Acanthocytes 1+ (0-2) /OIF; Platelet Estimate NORMAL (NORMAL); Platelet Morphology Comment NORMAL; Toxic Granulation PRESENT; Toxic Vacuolation PRESENT
[2023-08-09 07:56] LABS: Anion Gap 15 (12-20); Blood Urea Nitrogen 54 mg/dL (9-16); Calcium 9.1 mg/dL (8.4-10.2); Carbon Dioxide 28 mmol/L (22-29); Chloride 102 mmol/L (96-108); Creatinine Clr Calc Pharmacy 73.1; Estimated Glomerular Filt Rate 54; Glucose Random 173 mg/dL (60-115); Potassium 4.4 mmol/L (3.3-5.1); Sodium 141 mmol/L (135-145)
[2023-08-09 08:03] LABS: Thyroid Stimulating Hormone 2.79 uIU/mL (0.32-4.0)
--- NOTE | 2023-08-09 08:16 | PM.PNGS ---
Subjective Subjective Date of Service: 08/09/23 Interval history: Had vomiting last night Continues to have good BMs and flatus describes discomfort but not abdominal pain Describes hiccups Physical Exam Vital Signs: Vital Signs: Last Vital Signs Temp 97.7 F 08/09/23 07:46 Pulse 100 08/09/23 07:46 Resp 18 08/09/23 07:46 BP 112/68 08/09/23 07:46 Pulse Ox 93 08/09/23 07:46 O2 Del Method Room Air 08/09/23 07:46 BMI result Body Mass Index 36.8 Const: General: no acute distress Orientation/consciousness: patient oriented x3 Resp: Effort & Inspection: normal respiratory effort Cardio: Rhythm: regular rhythm GI: Other: Very obese but soft, some distention, no guarding rebound Neuro: General: patient oriented x3 Objective Data Active Medications Acetaminophen (Acetaminophen 325 Mg Tablet) 650 mg PO Q6H PRN PRN Reason: Pain, Mild (Pain Scale 1-3) Last Admin: 08/08/23 13:39 Dose: 650 mg Documented By: LIDIA Baclofen (Baclofen 10 Mg Tablet) 10 mg PO BID [facility] Last Admin: 08/08/23 20:36 Dose: 10 mg Documented By: PEDRO Bisacodyl (Bisacodyl 10 Mg Supp.Rect) 10 mg [place] DAILY PRN PRN Reason: Constipation Calcium Carbonate (Calcium Carbonate 750 Mg Tab.Chew) 750 mg PO Q4H PRN PRN Reason: Heartburn Last Admin: 08/09/23 04:22 Dose: 750 mg Documented By: CORINNA Famotidine (Famotidine 20 Mg Tablet) 20 mg PO DAILY [facility] Last Admin: 08/08/23 07:42 Dose: 20 mg Documented By: LIDIA Lactated Ringer's (Lr) 1,000 mls @ 150 mls/hr IVCONT .Q6H40M [facility] Last Admin: 08/09/23 04:25 Dose: 150 mls/hr Documented By: CORINNA Ceftriaxone Sodium 1 gm/ (Sodium Chloride) 50 mls @ 100 mls/hr IV Q24H [facility] Last Infusion: 08/08/23 19:49 Dose: Infused Documented By: PEDRO Metronidazole (Flagyl) 500 mg in 100 mls @ 100 mls/hr IV Q8H [facility] Last Infusion: 08/09/23 03:25 Dose: Infused Documented By: CORINNA Melatonin (Melatonin 3 Mg Tablet) 6 mg PO BEDTIME PRN PRN Reason: Insomnia Morphine Sulfate (Morphine Sulfate 4 Mg/Ml Cartridge) 4 mg IVPUSH Q4H PRN; Protocol PRN Reason: Pain, Severe (Pain Scale 7-10) Last Admin: 08/09/23 02:32 Dose: 4 mg Documented By: CORINNA Ondansetron HCl (Ondansetron Hcl 4 Mg/2 Ml Vial) 4 mg IVPUSH Q6H PRN PRN Reason: Nausea and Vomiting Last Admin: 08/07/23 20:34 Dose: 4 mg Documented By: YADIRA Rivaroxaban (Rivaroxaban 20 Mg Tablet) 20 mg PO DAILY [facility] Last Admin: 08/08/23 07:43 Dose: 20 mg Documented By: LIDIA Simethicone (Simethicone 80 Mg Tab.Chew) 80 mg PO TID PRN PRN Reason: gas Last Admin: 08/08/23 22:32 Dose: 80 mg Documented By: PEDRO Sodium Biphosphate/Sodium Phosphate (Sodium Phosphate,[place]-Dibasic 133 Ml Enema) 133 ml [place] ONCE PRN PRN Reason: Constipation Last Admin: 08/08/23 14:23 Dose: 133 ml Documented By: LIDIA Sodium Chloride (0.9 % Sodium Chloride Flush 3 Ml Syringe) 3 ml IVFLUSH QSHIFT [facility] Last Admin: 08/09/23 07:16 Dose: Not Given Documented By: EMEKA Non-Admin Reason: IV Running Vitamin D (Cholecalciferol (Vitamin D3) 25 Mcg Tablet) 25 mcg PO DAILY [facility] Last Admin: 08/08/23 07:43 Dose: 25 mcg Documented By: LIDIA Labs 08/09/23 05:41 08/09/23 10:05 Labs: Laboratory Results - last 24 hr 08/08/23 08/08/23 08/08/23 14:37 17:22 19:47 MCV 86.6 MCH 28.7 MCHC 33.1 RDW 14.3 Plt Count 311 MPV 10.7 Immature Gran % (Auto) Cancelled Neut % (Auto) Cancelled Lymph % (Auto) Cancelled [place] % (Auto) Cancelled Eos % (Auto) Cancelled Baso % (Auto) Cancelled Lymph # (Auto) Cancelled [place] # (Auto) Cancelled Eos # (Auto) Cancelled Baso # (Auto) Cancelled Abs Immat Gran (auto) Cancelled Absolute Neuts (auto) Cancelled Absolute Nucleated RBC 0.000 Nucleated RBC % (auto) 0.0 Neutrophils % (Manual) 26 L Band Neutrophils % 42 H Lymphocytes % (Manual) 8 L Monocytes % (Manual) 13 H Basophils % (Manual) 1 Metamyelocytes % 8 Myelocytes % 2 Abs Neuts (Manual) 8.6 H Lymphocytes # (Manual) 1.0 L Monocytes # (Manual) 1.7 H Basophils # (Manual) 0.1 Metamyelocytes # 1.0 Myelocytes # 0.3 Toxic Granulation PRESENT Toxic Vacuolation PRESENT Platelet Estimate NORMAL Plt Morphology Comment NORMAL RBC Morphology NOTED Acanthocytes (Spur) 1+ (0-2) Anion Gap 19 Estim Creat Clear Calc 44.0 Estimated GFR 30 Random Glucose 164 H Lactic Acid 2.3 H* Lactic Acid F/U @ 2Hr 2.6 H* Lactic Acid F/U @ 4Hr Calcium 9.3 TSH Urine Color Urine Appearance Urine pH Ur Specific [place] Urine Protein Urine Glucose (UA) Urine Ketones Urine Blood Urine Nitrite Ur Leukocyte Esterase Urine RBC Urine WBC Ur Squamous Epith Cells Urine Bacteria Hyaline Casts Ur Random Sodium Urine Creatinine 08/08/23 08/08/23 08/09/23 20:30 22:48 05:41 MCV 88.1 MCH 28.5 MCHC 32.4 RDW 14.5 Plt Count 302 MPV 11.3 Immature Gran % (Auto) Cancelled Neut % (Auto) Cancelled Lymph % (Auto) Cancelled [place] % (Auto) Cancelled Eos % (Auto) Cancelled Baso % (Auto) Cancelled Lymph # (Auto) Cancelled [place] # (Auto) Cancelled Eos # (Auto) Cancelled Baso # (Auto) Cancelled Abs Immat Gran (auto) Cancelled Absolute Neuts (auto) Cancelled Absolute Nucleated RBC 0.020 H Nucleated RBC % (auto) 0.3 H Neutrophils % (Manual) 23 L Band Neutrophils % 41 H Lymphocytes % (Manual) 10 L Monocytes % (Manual) 21 H Basophils % (Manual) Metamyelocytes % 4 Myelocytes % 1 Abs Neuts (Manual) Lymphocytes # (Manual) Monocytes # (Manual) Basophils # (Manual) Metamyelocytes # Myelocytes # Toxic Granulation PRESENT Toxic Vacuolation PRESENT Platelet Estimate NORMAL Plt Morphology Comment NORMAL RBC Morphology NOTED Acanthocytes (Spur) 1+ (0-2) Anion Gap 15 Estim Creat Clear Calc 73.1 Estimated GFR 54 Random Glucose 173 H Lactic Acid Lactic Acid F/U @ 2Hr Lactic Acid F/U @ 4Hr 2.1 H* Calcium 9.1 TSH 2.79 Urine Color Dark Yellow Urine Appearance Cloudy Urine pH 5.0 Ur Specific [place] 1.025 Urine Protein Trace Urine Glucose (UA) Negative Urine Ketones Negative Urine Blood Trace H Urine Nitrite Negative Ur Leukocyte Esterase Negative Urine RBC 6-10 H Urine WBC 0-5 Ur Squamous Epith Cells 0-2 Urine Bacteria None Seen Hyaline Casts 11-20 Ur Random Sodium 30.0 Urine Creatinine 220.06 Procedures Date of Service Date of Service: 08/09/23 Progress Note: A&P Assessment and plan (1) Abdominal pain: Status: Acute Assessment and Plan: Vomited last night Has hiccups Will place NG tube Small bowel series today with Gastrografin contrast via NG tube/repeat CT with oral Exam otherwise benign NPO for now IV fluids labs ok this AM Time Spent With Patient Time: Total time managing care of this patient today ____ minutes. Quality Stroke Does the patient have a stroke diagnosis?: No VTE Prior VTE?: No VTE Risk Level:: Medical - moderate - high VTE Device Contraindication: Treatment Not Indicated VTE Drug Contraindication: N/A - Med Ordered
--- NOTE | 2023-08-09 08:55 | P.PNIM_ITS ---
Subjective Subjective Date of Service: 08/09/23 Interval History: Follow up SBO still with nausea and vomiting NGT placement Review of Systems All 12 review of systems negative except as noted above Cardiovascular Cardiovascular: Reports no additional cardiovascular complaints Respiratory Respiratory: Reports no additional respiratory complaints Genitourinary Genitourinary: Reports no additional male genitourinary complaints Physical Exam 2 Vital Signs: Vital Signs: Last Vital Signs Temp 97.7 F 08/09/23 07:46 Pulse 100 08/09/23 07:46 Resp 18 08/09/23 07:46 BP 112/68 08/09/23 07:46 Pulse Ox 93 08/09/23 07:46 O2 Del Method Room Air 08/09/23 07:46 BMI result Body Mass Index 36.8 Appearing in no acute distress lung sounds are clear to auscultation heart regular rate rhythm, clear S1, S2 abd tender, NGT neuro patient is alert x3, no focal deficits Objective Data Active Medications Acetaminophen (Acetaminophen 325 Mg Tablet) 650 mg PO Q6H PRN PRN Reason: Pain, Mild (Pain Scale 1-3) Last Admin: 08/08/23 13:39 Dose: 650 mg Documented By: LIDIA Baclofen (Baclofen 10 Mg Tablet) 10 mg PO BID [facility] Last Admin: 08/08/23 20:36 Dose: 10 mg Documented By: PEDRO Bisacodyl (Bisacodyl 10 Mg Supp.Rect) 10 mg OR DAILY PRN PRN Reason: Constipation Calcium Carbonate (Calcium Carbonate 750 Mg Tab.Chew) 750 mg PO Q4H PRN PRN Reason: Heartburn Last Admin: 08/09/23 04:22 Dose: 750 mg Documented By: CORINNA Famotidine (Famotidine 20 Mg Tablet) 20 mg PO DAILY [facility] Last Admin: 08/08/23 07:42 Dose: 20 mg Documented By: LIDIA Lactated Ringer's (Lr) 1,000 mls @ 150 mls/hr IVCONT .Q6H40M [facility] Last Admin: 08/09/23 04:25 Dose: 150 mls/hr Documented By: CORINNA Ceftriaxone Sodium 1 gm/ (Sodium Chloride) 50 mls @ 100 mls/hr IV Q24H [facility] Last Infusion: 08/08/23 19:49 Dose: Infused Documented By: PEDRO Metronidazole (Flagyl) 500 mg in 100 mls @ 100 mls/hr IV Q8H [facility] Last Infusion: 08/09/23 03:25 Dose: Infused Documented By: CORINNA Melatonin (Melatonin 3 Mg Tablet) 6 mg PO BEDTIME PRN PRN Reason: Insomnia Morphine Sulfate (Morphine Sulfate 4 Mg/Ml Cartridge) 4 mg IVPUSH Q4H PRN; Protocol PRN Reason: Pain, Severe (Pain Scale 7-10) Last Admin: 08/09/23 02:32 Dose: 4 mg Documented By: CORINNA Ondansetron HCl (Ondansetron Hcl 4 Mg/2 Ml Vial) 4 mg IVPUSH Q6H PRN PRN Reason: Nausea and Vomiting Last Admin: 08/07/23 20:34 Dose: 4 mg Documented By: YADIRA Rivaroxaban (Rivaroxaban 20 Mg Tablet) 20 mg PO DAILY [facility] Last Admin: 08/08/23 07:43 Dose: 20 mg Documented By: LIDIA Simethicone (Simethicone 80 Mg Tab.Chew) 80 mg PO TID PRN PRN Reason: gas Last Admin: 08/08/23 22:32 Dose: 80 mg Documented By: PEDRO Sodium Biphosphate/Sodium Phosphate (Sodium Phosphate,[place]-Dibasic 133 Ml Enema) 133 ml OR ONCE PRN PRN Reason: Constipation Last Admin: 08/08/23 14:23 Dose: 133 ml Documented By: LIDIA Sodium Chloride (0.9 % Sodium Chloride Flush 3 Ml Syringe) 3 ml IVFLUSH QSHIFT [facility] Last Admin: 08/09/23 07:16 Dose: Not Given Documented By: EMEKA Non-Admin Reason: IV Running Vitamin D (Cholecalciferol (Vitamin D3) 25 Mcg Tablet) 25 mcg PO DAILY [facility] Last Admin: 08/08/23 07:43 Dose: 25 mcg Documented By: LIDIA Labs 08/09/23 05:41 08/09/23 05:41 Labs: Laboratory Results - last 24 hr 08/08/23 08/08/23 08/08/23 14:37 17:22 19:47 MCV 86.6 MCH 28.7 MCHC 33.1 RDW 14.3 Plt Count 311 MPV 10.7 Immature Gran % (Auto) Cancelled Neut % (Auto) Cancelled Lymph % (Auto) Cancelled [place] % (Auto) Cancelled Eos % (Auto) Cancelled Baso % (Auto) Cancelled Lymph # (Auto) Cancelled [place] # (Auto) Cancelled Eos # (Auto) Cancelled Baso # (Auto) Cancelled Abs Immat Gran (auto) Cancelled Absolute Neuts (auto) Cancelled Absolute Nucleated RBC 0.000 Nucleated RBC % (auto) 0.0 Neutrophils % (Manual) 26 L Band Neutrophils % 42 H Lymphocytes % (Manual) 8 L Monocytes % (Manual) 13 H Basophils % (Manual) 1 Metamyelocytes % 8 Myelocytes % 2 Abs Neuts (Manual) 8.6 H Lymphocytes # (Manual) 1.0 L Monocytes # (Manual) 1.7 H Basophils # (Manual) 0.1 Metamyelocytes # 1.0 Myelocytes # 0.3 Toxic Granulation PRESENT Toxic Vacuolation PRESENT Platelet Estimate NORMAL Plt Morphology Comment NORMAL RBC Morphology NOTED Acanthocytes (Spur) 1+ (0-2) Anion Gap 19 Estim Creat Clear Calc 44.0 Estimated GFR 30 Random Glucose 164 H Lactic Acid 2.3 H* Lactic Acid F/U @ 2Hr 2.6 H* Lactic Acid F/U @ 4Hr Calcium 9.3 TSH Urine Color Urine Appearance Urine pH Ur Specific [place] Urine Protein Urine Glucose (UA) Urine Ketones Urine Blood Urine Nitrite Ur Leukocyte Esterase Urine RBC Urine WBC Ur Squamous Epith Cells Urine Bacteria Hyaline Casts Ur Random Sodium Urine Creatinine 08/08/23 08/08/23 08/09/23 20:30 22:48 05:41 MCV 88.1 MCH 28.5 MCHC 32.4 RDW 14.5 Plt Count 302 MPV 11.3 Immature Gran % (Auto) Cancelled Neut % (Auto) Cancelled Lymph % (Auto) Cancelled [place] % (Auto) Cancelled Eos % (Auto) Cancelled Baso % (Auto) Cancelled Lymph # (Auto) Cancelled [place] # (Auto) Cancelled Eos # (Auto) Cancelled Baso # (Auto) Cancelled Abs Immat Gran (auto) Cancelled Absolute Neuts (auto) Cancelled Absolute Nucleated RBC 0.020 H Nucleated RBC % (auto) 0.3 H Neutrophils % (Manual) 23 L Band Neutrophils % 41 H Lymphocytes % (Manual) 10 L Monocytes % (Manual) 21 H Basophils % (Manual) Metamyelocytes % 4 Myelocytes % 1 Abs Neuts (Manual) Lymphocytes # (Manual) Monocytes # (Manual) Basophils # (Manual) Metamyelocytes # Myelocytes # Toxic Granulation PRESENT Toxic Vacuolation PRESENT Platelet Estimate NORMAL Plt Morphology Comment NORMAL RBC Morphology NOTED Acanthocytes (Spur) 1+ (0-2) Anion Gap 15 Estim Creat Clear Calc 73.1 Estimated GFR 54 Random Glucose 173 H Lactic Acid Lactic Acid F/U @ 2Hr Lactic Acid F/U @ 4Hr 2.1 H* Calcium 9.1 TSH 2.79 Urine Color Dark Yellow Urine Appearance Cloudy Urine pH 5.0 Ur Specific [place] 1.025 Urine Protein Trace Urine Glucose (UA) Negative Urine Ketones Negative Urine Blood Trace H Urine Nitrite Negative Ur Leukocyte Esterase Negative Urine RBC 6-10 H Urine WBC 0-5 Ur Squamous Epith Cells 0-2 Urine Bacteria None Seen Hyaline Casts 11-20 Ur Random Sodium 30.0 Urine Creatinine 220.06 Assessment and Plan (1) Abdominal pain: Status: Acute Plan 53-year-old male with a PMH significant for 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 Pt will be admitted to the hospital for treatment further evaluation of small-bowel obstruction. Small-bowel obstruction CT with evidence of possible proximal small-bowel obstruction Plan for NGT due to continued nausea and vomiting bowel series ordered as per general surgery Antiemetics, analgesics NPO ANA Likely from vomiting Resolving Hx of DVT and PE DVT and PE occurred in 12/2021 after increased immobilization secondary to right femur fracture Continue Xarelto Guillain-Eastlake syndrome Currently receives monthly IVIG infusions Not on any other home meds Sinus Tachycardia On review of records, patient with sinus tachycardia dating back to December 2021. Outpatient Cardiology follow-up Obesity class II Weight loss encouraged Full Code Attending Dr. Otoole DVT Prophylaxis: On Xarelto Reason for continued hospitalization for tx of SBO and specialty consultation Quality Stroke Does the patient have a stroke diagnosis?: No VTE Prior VTE?: No VTE Risk Level:: Medical - moderate - high VTE Device Contraindication: Treatment Not Indicated VTE Drug Contraindication: N/A - Med Ordered
[2023-08-09 09:00] LABS: Lymphocytes Absolute Manual 0.8 X10*3/uL (1.2-4.9); Metamyelocytes Absolute 0.3 X10*3/uL; Monocytes Absolute Manual 1.6 X10*3/uL (0.1-1.2); Myelocytes Absolute 0.1 X10*/uL; Neutrophils Absolute Manual 4.9 X10*3/uL (2.0-8.3); White Blood Count 7.6 X10*3/uL (4.8-10.8)
[2023-08-09 10:25] LABS: Anion Gap 15 (12-20); Blood Urea Nitrogen 55 mg/dL (9-16); Calcium 9.6 mg/dL (8.4-10.2); Carbon Dioxide 28 mmol/L (22-29); Chloride 102 mmol/L (96-108); Estimated Glomerular Filt Rate 57; Glucose Random 188 mg/dL (60-115); Potassium 4.2 mmol/L (3.3-5.1); Sodium 141 mmol/L (135-145)
--- NOTE | 2023-08-09 10:26 | MHC.CLN ---
NUTRITION CONSULT FOR WOUND. ROSA MARIA NPO. NG TUBE PLACED TODAY. POSSIBLE SBO. INCREASED NUTRITION NEEDS DUE TO STAGE II LEFT BUTTOCK. FOLLOW FOR DIET ADVANCEMENT AND SKIN INTEGRITY. CONSIDER HIGH PROTEIN SUPPLEMENT WHEN DIET ADVANCES.
--- NOTE | 2023-08-09 12:25 | HO.WOUND ---
Wound Consult: Initial 53yr old?M admitted to [facility] [place] on 08/05 - See progress notes and H&P for detailed history.? Wound consult placed for Left thigh and Left Buttock wound POA. Arrival to bedside patient was off unit for imaging - per direct care nurse foam dressings in place. Will attempt assessment at future date and or time.
--- NOTE | 2023-08-09 13:09 | P.CDIM_ITS ---
PROVIDER RESPONSE TEXT: To clarify, the appropriate diagnosis supported by the clinical indicators: stage 2 pressure ulcer left buttock QUERY TEXT: PHYSICIAN'S DOCUMENTATION REQUEST Date of Query: 08/09/2023 12:29 PM EDT Patient Name: Mathieu Anand Admit Date: 08/07/2023 Dear Dominique Fang, A review of the medical record indicates additional documentation may be needed. Please review below and update the documentation accordingly. Clinical Indicators: Per Nursing Pressure Injury Assessment 08/07/23: stage 2 buttock Based on the above, could you please provide further information regarding the ulcer/wound: stage 2 pressure ulcer left buttock stage 2 pressure ulcer right buttock Traumatic wound Please specify the location and laterality of the ulcer/wound Other (explain) Clinically unable to determine (explain) Thank you, Yanira Ibrahim RN Use of terms such as suspected, likely, concern for, or probable (associated with a specific diagnosi s that is being evaluated, monitored, or treated as if it exists) are acceptable and can be coded in the inpatient se tting, when documented at the time of discharge. Please use your independent medical judgment in providing your response. THIS QUERY IS PART OF THE PERMANENT MEDICAL RECORD
[2023-08-09] MEDS: Diatrizoate Meglumine, Sodium 120 ML SOLUTION 240 ML PO (14:03)
--- NOTE | 2023-08-09 14:27 | PC.NURSE ---
Radiologist confirm placement of NG Tube. Oral contrast given via NG Tube. Tolerated well.
[2023-08-09] MEDS: 0.9 % Sodium Chloride 1,000 ML 100 ML IVCONT (15:18)
[2023-08-09] MEDS: 0.9 % Sodium Chloride Flush 3 ML SYRINGE IVFLUSH ×2 (15:23→20:28)
--- NOTE | 2023-08-09 16:06 | HO.ANESPROP2 ---
HPI - Anesthesia Eval Consult details Narrative: hx guillan barre and while going for rx, had femur fx that ed to dvt and pe now two years ago, on xarelto last dose 08/07 bed bound less than 4 mets occasional gerd; cannabis use; social drinker PMF Active Problems Active Problems: All Active Problems (Updated 08/07/23 @ 10:00 by Francisco Brasher MD) Abdominal pain (Acute) Morbid obesity (Acute) Pulmonary embolism (Acute) DVT (deep venous thrombosis) (Acute) Femur fracture, right (Acute) Guillain-Cleveland syndrome (Acute) Small bowel obstruction (Acute) Past Medical History Medical History (Updated 08/07/23 @ 10:00 by Francisco Brasher MD) Abdominal pain Morbid obesity Guillain-Cleveland syndrome Femur fracture, right DVT (deep venous thrombosis) Pulmonary embolism Functional capacity: bed bound Family History Family history of problems with anesthesia: No Surgical History Surgical History (Updated 08/09/23 @ 16:22 by Monica Smith) H/O hand surgery History of Problems with Anesthesia: No Social History Social History Household Members: Significant Other Housing: Apartment Do you presently have visiting nurse or other home services: No Alcohol intake: current Alcohol intake frequency: a few times a week Patient Tobacco Use Status: Former Tobacco user Substance Use Type: Marijuana Advance Directives Date on File: 08/06/23 Meds Allergies Allergy/AdvReac Type Severity Reaction Status Date / Time No Known Allergies Allergy Verified 08/09/23 16:21 Active Medications: Current Medications Acetaminophen (Acetaminophen 325 Mg Tablet) 650 mg PO Q6H PRN PRN Reason: Pain, Mild (Pain Scale 1-3) Last Admin: 08/08/23 13:39 Dose: 650 mg Baclofen (Baclofen 10 Mg Tablet) 10 mg PO BID [facility] Last Admin: 08/09/23 10:16 Dose: Not Given Bisacodyl (Bisacodyl 10 Mg Supp.Rect) 10 mg ID DAILY PRN PRN Reason: Constipation Calcium Carbonate (Calcium Carbonate 750 Mg Tab.Chew) 750 mg PO Q4H PRN PRN Reason: Heartburn Last Admin: 08/09/23 04:22 Dose: 750 mg Famotidine (Famotidine 20 Mg Tablet) 20 mg PO DAILY [facility] Last Admin: 08/09/23 10:17 Dose: Not Given Ceftriaxone Sodium 1 gm/ (Sodium Chloride) 50 mls @ 100 mls/hr IV Q24H [facility] Last Infusion: 08/08/23 19:49 Dose: Infused Metronidazole (Flagyl) 500 mg in 100 mls @ 100 mls/hr IV Q8H [facility] Last Admin: 08/09/23 15:18 Dose: 100 mls/hr Sodium Chloride (Ns) 1,000 mls @ 100 mls/hr IVCONT .Q10H [facility] Last Admin: 08/09/23 15:18 Dose: 100 mls/hr Melatonin (Melatonin 3 Mg Tablet) 6 mg PO BEDTIME PRN PRN Reason: Insomnia Morphine Sulfate (Morphine Sulfate 4 Mg/Ml Cartridge) 4 mg IVPUSH Q4H PRN; Protocol PRN Reason: Pain, Severe (Pain Scale 7-10) Last Admin: 08/09/23 09:21 Dose: 4 mg Ondansetron HCl (Ondansetron Hcl 4 Mg/2 Ml Vial) 4 mg IVPUSH Q6H PRN PRN Reason: Nausea and Vomiting Last Admin: 08/07/23 20:34 Dose: 4 mg Rivaroxaban (Rivaroxaban 20 Mg Tablet) 20 mg PO DAILY [facility] Last Admin: 08/09/23 10:17 Dose: Not Given Simethicone (Simethicone 80 Mg Tab.Chew) 80 mg PO TID PRN PRN Reason: gas Last Admin: 08/08/23 22:32 Dose: 80 mg Sodium Biphosphate/Sodium Phosphate (Sodium Phosphate,[place]-Dibasic 133 Ml Enema) 133 ml ID ONCE PRN PRN Reason: Constipation Last Admin: 08/08/23 14:23 Dose: 133 ml Sodium Chloride (0.9 % Sodium Chloride Flush 3 Ml Syringe) 3 ml IVFLUSH QSHIFT [facility] Last Admin: 08/09/23 15:23 Dose: 3 ml Vitamin D (Cholecalciferol (Vitamin D3) 25 Mcg Tablet) 25 mcg PO DAILY [facility] Last Admin: 08/09/23 10:17 Dose: Not Given Home Medications Medication Instructions Recorded Confirmed Last Taken Type baclofen 10 mg tablet 10 mg PO BID 01/04/22 08/06/23 08/06/23 History cholecalciferol (vitamin D3) 25 25 mcg PO DAILY 01/04/22 08/06/23 08/06/23 History mcg (1,000 unit) tablet Exam Height,Weight and Vital Signs: Height 5 ft 7 in Weight 106.594 kg Last Vital Signs Temp 98.1 F 08/09/23 14:58 Pulse 102 H 08/09/23 14:58 Resp 17 08/09/23 14:58 BP 120/73 08/09/23 14:58 Pulse Ox 93 08/09/23 14:58 O2 Del Method Room Air 08/09/23 14:58 Pertinent Lab Results Pertinent Lab Results: Laboratory Tests 08/06/23 08/06/23 08/06/23 13:11 13:50 16:46 WBC 7.7 RBC 5.79 Hgb 16.6 Hct 51.0 MCV 88.1 MCH 28.7 MCHC 32.5 RDW 13.7 Plt Count 355 MPV 9.3 L Immature Gran % (Auto) 0.3 Neut % (Auto) 81.8 H Lymph % (Auto) 11.1 L [place] % (Auto) 6.5 Eos % (Auto) 0.0 Baso % (Auto) 0.3 Lymph # (Auto) 0.9 L [place] # (Auto) 0.5 Eos # (Auto) 0.0 Baso # (Auto) 0.0 Abs Immat Gran (auto) 0.02 Absolute Neuts (auto) 6.3 Absolute Nucleated RBC 0.000 Nucleated RBC % (auto) 0.0 Neutrophils % (Manual) Band Neutrophils % Lymphocytes % (Manual) Monocytes % (Manual) Basophils % (Manual) Metamyelocytes % Myelocytes % Abs Neuts (Manual) Lymphocytes # (Manual) Monocytes # (Manual) Basophils # (Manual) Metamyelocytes # Myelocytes # Toxic Granulation Toxic Vacuolation Platelet Estimate Plt Morphology Comment RBC Morphology Acanthocytes (Spur) Sodium 137 Potassium 4.4 Chloride 102 Carbon Dioxide 26 Anion Gap 13 BUN 22 H Creatinine 0.87 Estim Creat Clear Calc 116.9 Estimated GFR > 60 POC Glucose Random Glucose 147 H Lactic Acid Lactic Acid F/U @ 2Hr Lactic Acid F/U @ 4Hr Calcium 9.5 Magnesium 2.1 Total Bilirubin 0.7 AST 15 ALT 16 Alkaline Phosphatase 46 Total Protein 8.5 H Albumin 3.8 TSH Urine Color Dark Yellow Urine Appearance Clear Urine pH 5.5 Ur Specific [place] >= 1.030 H Urine Protein Trace Urine Glucose (UA) Negative Urine Ketones Negative Urine Blood Negative Urine Nitrite Negative Ur Leukocyte Esterase Negative Urine RBC Urine WBC Ur Squamous Epith Cells Urine Bacteria Hyaline Casts Ur Random Sodium Urine Creatinine Influenza Type A (PCR) NEGATIVE Influenza Type B (PCR) NEGATIVE RSV RNA Qual (PCR) NEGATIVE SARS-CoV-2 RNA (RT-PCR) NEGATIVE 08/08/23 08/08/23 08/08/23 07:21 14:37 17:22 WBC 12.7 H RBC 5.51 Hgb 15.8 Hct 47.7 MCV 86.6 MCH 28.7 MCHC 33.1 RDW 14.3 Plt Count 311 MPV 10.7 Immature Gran % (Auto) Cancelled Neut % (Auto) Cancelled Lymph % (Auto) Cancelled [place] % (Auto) Cancelled Eos % (Auto) Cancelled Baso % (Auto) Cancelled Lymph # (Auto) Cancelled [place] # (Auto) Cancelled Eos # (Auto) Cancelled Baso # (Auto) Cancelled Abs Immat Gran (auto) Cancelled Absolute Neuts (auto) Cancelled Absolute Nucleated RBC 0.000 Nucleated RBC % (auto) 0.0 Neutrophils % (Manual) 26 L Band Neutrophils % 42 H Lymphocytes % (Manual) 8 L Monocytes % (Manual) 13 H Basophils % (Manual) 1 Metamyelocytes % 8 Myelocytes % 2 Abs Neuts (Manual) 8.6 H Lymphocytes # (Manual) 1.0 L Monocytes # (Manual) 1.7 H Basophils # (Manual) 0.1 Metamyelocytes # 1.0 Myelocytes # 0.3 Toxic Granulation PRESENT Toxic Vacuolation PRESENT Platelet Estimate NORMAL Plt Morphology Comment NORMAL RBC Morphology NOTED Acanthocytes (Spur) 1+ (0-2) Sodium 139 Potassium 4.0 Chloride 103 Carbon Dioxide 21 L Anion Gap 19 BUN 61 H Creatinine 2.31 H Estim Creat Clear Calc 44.0 Estimated GFR 30 POC Glucose 169 H Random Glucose 164 H Lactic Acid 2.3 H* Lactic Acid F/U @ 2Hr Lactic Acid F/U @ 4Hr Calcium 9.3 Magnesium Total Bilirubin AST ALT Alkaline Phosphatase Total Protein Albumin TSH Urine Color Urine Appearance Urine pH Ur Specific [place] Urine Protein Urine Glucose (UA) Urine Ketones Urine Blood Urine Nitrite Ur Leukocyte Esterase Urine RBC Urine WBC Ur Squamous Epith Cells Urine Bacteria Hyaline Casts Ur Random Sodium Urine Creatinine Influenza Type A (PCR) Influenza Type B (PCR) RSV RNA Qual (PCR) SARS-CoV-2 RNA (RT-PCR) 03/03/2308/08/23 08/08/23 19:47 20:30 22:48 WBC RBC Hgb Hct MCV MCH MCHC RDW Plt Count MPV Immature Gran % (Auto) Neut % (Auto) Lymph % (Auto) [place] % (Auto) Eos % (Auto) Baso % (Auto) Lymph # (Auto) [place] # (Auto) Eos # (Auto) Baso # (Auto) Abs Immat Gran (auto) Absolute Neuts (auto) Absolute Nucleated RBC Nucleated RBC % (auto) Neutrophils % (Manual) Band Neutrophils % Lymphocytes % (Manual) Monocytes % (Manual) Basophils % (Manual) Metamyelocytes % Myelocytes % Abs Neuts (Manual) Lymphocytes # (Manual) Monocytes # (Manual) Basophils # (Manual) Metamyelocytes # Myelocytes # Toxic Granulation Toxic Vacuolation Platelet Estimate Plt Morphology Comment RBC Morphology Acanthocytes (Spur) Sodium Potassium Chloride Carbon Dioxide Anion Gap BUN Creatinine Estim Creat Clear Calc Estimated GFR POC Glucose Random Glucose Lactic Acid Lactic Acid F/U @ 2Hr 2.6 H* Lactic Acid F/U @ 4Hr 2.1 H* Calcium Magnesium Total Bilirubin AST ALT Alkaline Phosphatase Total Protein Albumin TSH Urine Color Dark Yellow Urine Appearance Cloudy Urine pH 5.0 Ur Specific [place] 1.025 Urine Protein Trace Urine Glucose (UA) Negative Urine Ketones Negative Urine Blood Trace H Urine Nitrite Negative Ur Leukocyte Esterase Negative Urine RBC 6-10 H Urine WBC 0-5 Ur Squamous Epith Cells 0-2 Urine Bacteria None Seen Hyaline Casts 11-20 Ur Random Sodium 30.0 Urine Creatinine 220.06 Influenza Type A (PCR) Influenza Type B (PCR) RSV RNA Qual (PCR) SARS-CoV-2 RNA (RT-PCR) 08/09/23 08/09/23 05:41 10:05 WBC 7.6 RBC 5.29 Hgb 15.1 Hct 46.6 MCV 88.1 MCH 28.5 MCHC 32.4 RDW 14.5 Plt Count 302 MPV 11.3 Immature Gran % (Auto) Cancelled Neut % (Auto) Cancelled Lymph % (Auto) Cancelled [place] % (Auto) Cancelled Eos % (Auto) Cancelled Baso % (Auto) Cancelled Lymph # (Auto) Cancelled [place] # (Auto) Cancelled Eos # (Auto) Cancelled Baso # (Auto) Cancelled Abs Immat Gran (auto) Cancelled Absolute Neuts (auto) Cancelled Absolute Nucleated RBC 0.020 H Nucleated RBC % (auto) 0.3 H Neutrophils % (Manual) 23 L Band Neutrophils % 41 H Lymphocytes % (Manual) 10 L Monocytes % (Manual) 21 H Basophils % (Manual) Metamyelocytes % 4 Myelocytes % 1 Abs Neuts (Manual) 4.9 Lymphocytes # (Manual) 0.8 L Monocytes # (Manual) 1.6 H Basophils # (Manual) Metamyelocytes # 0.3 Myelocytes # 0.1 Toxic Granulation PRESENT Toxic Vacuolation PRESENT Platelet Estimate NORMAL Plt Morphology Comment NORMAL RBC Morphology NOTED Acanthocytes (Spur) 1+ (0-2) Sodium 141 141 Potassium 4.4 4.2 Chloride 102 102 Carbon Dioxide 28 28 Anion Gap 15 15 BUN 54 H 55 H Creatinine 1.39 1.32 Estim Creat Clear Calc 73.1 77.0 Estimated GFR 54 57 POC Glucose Random Glucose 173 H 188 H Lactic Acid Lactic Acid F/U @ 2Hr Lactic Acid F/U @ 4Hr Calcium 9.1 9.6 Magnesium Total Bilirubin AST ALT Alkaline Phosphatase Total Protein Albumin TSH 2.79 Urine Color Urine Appearance Urine pH Ur Specific [place] Urine Protein Urine Glucose (UA) Urine Ketones Urine Blood Urine Nitrite Ur Leukocyte Esterase Urine RBC Urine WBC Ur Squamous Epith Cells Urine Bacteria Hyaline Casts Ur Random Sodium Urine Creatinine Influenza Type A (PCR) Influenza Type B (PCR) RSV RNA Qual (PCR) SARS-CoV-2 RNA (RT-PCR) Airway Mallampati Class: IV TM Dist: <=3cm Neck ROM: Full Partial: Lower Loose/Missing/Broken Teeth: Yes (only has two teeth 9,10, poor condition) Heart: o rrr Lungs: clear but diminshed Assessment and Plan Assessment Anesthesia Assessment: Anesthesia Plan Discussed and Chart Reviewed Final Anesthetic Review Family History of Problems with Anesthesia: No History of Problems with Anesthesia: No NPO: No (po contrast at 1400) ASA Class: III and Emergency Final Preanesthetic Review: Meds/Allgs Chart Reviewed, Consent Obtained/Reviewed and Anes Risks/Benef Reviewed Patient Risk: High Procedure Risk: High Anesthetic Plan Anesthetic Plan: GA Disposition: Standard PACU
--- NOTE | 2023-08-09 16:09 | PM.EVENT ---
Event Note Date of Service: 08/09/23 Event Note: I have reviewed his CT scan and SB series from today with the radiologist Dr. Mayorga Contrast appears to go through all the way to the colon However, there was note of some free air There is a loop of small bowel that is distended with pneumatosis This is seen to be in the mid abdomen a little to the right This is likely the source of the free air There has no obvious obstruction despite this distension Patient actually looks comfortable although with some discomfort, nontoxic looking, exam benign and pt remains very stoic despite ongoing issues I therefore explained to the patient that in view of the pneumatosis of the small bowel along with free air, we need to do emergency laparotomy with possible bowel resection I explained the technique of this procedure to him I reviewed the risks including but not limited to bleeding, infections, staple line leak, bowel injury, wound complications, heart attack, pneumonia, strokes He understands that he has significant perioperative risks because of his poor baseline physiologic status, Guillain-Atalissa syndrome, bed-bound state and morbid obesity He has given consent I have discussed this with his girlfriend Mercedes Escamilla at [phone] Prior to bringing the patient to the OR, the patient requested that his girlfriend be authorized as the healthcare proxy Pt is on Xarelto - will need to reverse with [place] Discussed with hospitalist Time Spent With Patient Time: Total time managing care of this patient today ____ minutes.
[2023-08-09] MEDS: Hum Prothrombin Cplx(PCC)4Fact 2,000 UNIT in Container,Empty 0 ML 480 UNIT IV (16:43)
--- NOTE | 2023-08-09 17:11 | PC.NURSE ---
Patient arrived to preop with a #20 PRN angio in right wrist. Site asymptomatic, flushed well.
--- NOTE | 2023-08-09 17:12 | PC.NURSE ---
Patient arrived to preop. NG tube set up to low intermittent suction per [facility]. 100CC greenish brown output suctioned. Conrado aware patient received PO contrast at 2pm for bowel studies. May proceed with surgery.
--- NOTE | 2023-08-09 19:25 | P.OP_ITS ---
Operative Note Operative Note Date of Service: 08/09/23 Narrative: Preop diagnosis: Pneumoperitoneum, pneumatosis of the small bowel Postop diagnosis: Long ischemic segment of the small bowel, with multiple areas of perforation, diffuse edema and distention of the small bowel including proximal and distal to the resected segment, Spillage of enteric contents, extensive adhesions Procedure: Laparotomy, extensive lysis of adhesions, small-bowel resection of 140 cm segment Surgeon: Francisco Brasher MD The patient is a 53-year-old male admitted over the weekend because of abdominal pain. His initial CT scan admission showed a dilated small bowel loop with question of a partial small-bowel obstruction along with heavy stool volume the colon. He was kept NPO initially but restarted on clear liquids yesterday as he had good passage of stools as well as flatus.. However, describes vomiting last night so I had ordered for follow-up imaging studies today. He had a small bowel series showing passage of contrast without obstruction. However his CAT scan showed free air with note of what appeared to be a segment of small bowel that was thickened with pneumatosis. He continued to have a benign exam. However, I told him that it is best to proceed with laparotomy of view of the above findings. I discussed with him the technique of this procedure and I reviewed with him the risks, benefits, and alternatives. He understood that he can be potentially critically ill if he has ischemia of the small bowel. The patient also has multiple medical issues, is bed-bound with a very poor baseline functional status. He was brought to the operating room. He was placed supine under general anesthesia via endotracheal tube. A Vasquez catheter was inserted. The abdomen was prepped and draped in the usual sterile fashion. It is noted that patient was very morbidly obese and is likely to be much heavier than documented weight of 235 lb on his electronic health record. He also has a very large pannus extending to the pelvis enter the side of his torso. I made an incision on the skin using blade 15 on the midline above the level of the umbilicus. This was carried down through the full-thickness of the skin and subcutaneous fat with electrocautery. Again, the patient is morbidly obese and we had to go through a very thick amount of subcutaneous fat. The fascia was reach. I incised the fascia with electrocautery and extended this fascial incision to optimize the length of the skin incision. Immediately, murky peritoneal fluid was noted. Pictures were taken for this The omentum was covering the peritoneal cavity. This appeared to be stuck and adherent as well to the pelvis and to the right side. We had to do a lot of extensive lysis of thick adherent omentum to release this from the pelvis as well as from the right side gently to allow good exposure. Eventually, I was able to pull the entire omentum off of the mid abdomen to allow dilatation of the bowel loops. We then positioned the Bookwalter retractors to allow good exposure. In view of the patient's large habitus, visualization was achieved with significant difficulty. Examination of the small bowel loops revealed this to be markedly distended diffusely with diffuse erythema By carefully pulling up bowel loops, I was able to see areas of what appeared to be ischemia with multiple segments with perforation. I had to do careful lysis of adhesions to separate this entire length of small-bowel and isolate this to allow good exposure. We could see spillage of some enteric contents finding this involved segment. Eventually I was able to define proximal distal segments that appeared to be viable. Examination of this involved segment revealed multiple areas of perforation, and apparent ischemia. I was able to visualize parts of the sigmoid colon and this appeared to be distended as well. The bowel loops proximal distal to this segment appeared to be diffusely edematous and erythematous as well although this appeared viable. We therefore chose the segments proximal distal to this area of ischemic small bowel loop. I created a mesenteric window on each side. I divided each segment proximal distal with a JAVAN 60 mm stapler. I continued to resect this entire grossly ischemic segment with multiple patches of perforation using the LigaSure along its attached mesentery. We resected about 140-150 cm of this ischemic segment. This was sent as specimen. Examination of both distal and small stumps of the remaining small bowel loops showed significant edema as well with erythema. However, despite this I felt that these segments were viable. I opened up the apex of each staple line to enter the lumen. I positioned each arm of the JAVAN 60 mm stapler the lumen. I lined the anti mesenteric border of the afferent and efferent limbs. I made sure that there was no bowel loop caught between the staple lines. I fired the stapler to create our [id number] anastomosis. I completed the anastomosis with a TA 60 mm stapler. The staple line was examined and this appeared to be intact. There was note of a serosal tear near the proximal limp which I with multiple seromuscular Polysorb 3-0 sutures. Otherwise, the staple line itself appeared intact I closed the large mesenteric defect with a running Polysorb 3-0 stitch to prevent excision of internal hernias. I examined all visible small bowel loops proximal distal to this anastomosis. There was note of significant edema of the visualized bowel loops. However, anastomotic site itself appeared to be intact. I pulled the omentum to cover this area as I replaced this into the peritoneal cavity I copiously irrigated in view of the presence of enteric contents adjacent to this segment. We suctioned all the irrigant fluid and this appeared to be clear. We observed for hemostasis. Once hemostasis was confirmed firm, proceeded to therefore closed the fascia with a running Maxon 1 stitch. I infiltrated the area of the incision with Marcaine 0.5% for postop analgesia. Dressings were applied. The procedure was completed The patient tolerated procedure well. There were no immediate complications. Estimated blood loss was about 50 cc. Prior to the completion of the case, I touched base with the paper reclaiming machine operator to discuss my findings. Despite the patient's stable vital sign, I explained to her that I am concerned that the patient will be critically ill postop in view of the above findings. Furthermore, there is concern with ongoing ischemia of the rest of the remaining small bowel loops as there is note of diffuse edema all throughout the visible bowel loops along with erythema. The patient will therefore be going to the ICU.
[2023-08-09] MEDS: cefTRIAXone sodium 1 GM in 0.9 % Sodium Chloride 50 ML IV (20:09)
--- NOTE | 2023-08-09 20:11 | PM.EVENT ---
Event Note Date of Service: 08/10/23 Event Note: pt in ICU postop underwent laparotomy, SB resection of 140-150 cm segment with multiple areas of perforation, ischemia rest of the visible bowel loops proximal and distal appear edematous, erythematous even of grossly viable some small amounts of enteric contents surround this involved bowel loops pt extubated postop, currently looks stable however, intraop findings, multiple medical comorbid conditions there is concern for possibility of progression of ischemia in rest of GI tract explained above to pt and girlfriennhi childs in detail above to Intesivist service Time Spent With Patient Time: Total time managing care of this patient today ____ minutes.
[2023-08-09] MEDS: Lactated Ringers 1,000 ML 100 ML IVCONT (20:27)
[2023-08-09] MEDS: Piperacillin Sodium/Tazobactam 3.375 GM in 0.9 % Sodium Chloride 50 ML IV (20:27)
--- NOTE | 2023-08-09 21:24 | W.PM.CCHP ---
Procedures Date of Service Date of Service: 08/09/23 Central Line Placement Right IJ: Consent for Procedure: Elective - informed consent obtained (from patient) Time out performed: Yes Sterile Technique Used: Yes Patient placed on monitor/pulse ox: Yes MD prep: mask, gown and gloves Central line prep: Chlorhexidine scrub Local anesthesia used: lidocaine 1% Amount of anesthesia used (ml): 5 Ultrasound used for placement: Yes Central line lumen inserted: triple Post procedure: sutured in place, good blood return, all ports aspirated, flushed, capped and sterile dressing applied Post procedure x-ray: tip of catheter in good position and no pneumothorax seen Patient tolerated procedure: well and no complications Complications: none
[2023-08-09 21:28] LABS: Venous Blood Gas Refer to POC result
[2023-08-09 21:29] LABS: Basophils Absolute Auto 0.1 X10*3/uL (0.0-0.2); Basophils Percent Auto 0.6 % (0-2); Eosinophils Percent Auto 0.2 % (0-4); Hematocrit 43.5 % (42.0-52.0); Hemoglobin 14.4 g/dl (14.0-18.0); Imm Gran Abs Auto 0.16 X10*3/uL (0.00-0.03); Imm Gran Pct Auto 1.8 % (0.0-0.4); Lymphocytes Absolute Auto 0.8 X10*3/uL (1.2-4.9); Lymphocytes Percent Auto 9.5 % (20-40); MANUAL DIFF FLAG SCAN; Mean Corpuscular HGB Conc 33.1 g/dl (31.0-36.0); Mean Corpuscular Hemoglobin 28.6 pg (27.0-33.0); Mean Corpuscular Volume 86.3 fL (80.0-98.0); Mean Platelet Volume 10.3 fL (9.4-12.4); Monocytes Absolute Auto 1.5 X10*3/uL (0.1-1.2); Monocytes Percent Auto 17.4 % (2-11); NRBC Pct Auto 0.3 /100WBC (0.0-0.2); Neutrophils Absolute Auto 6.2 x10*3/uL (2.0-8.3); Neutrophils Percent Auto 70.5 % (45-73); Platelet Count 280 X10*3/uL (160-400); Red Blood Count 5.04 X10*6/uL (4.60-5.80); Red Cell Distribution Width 14.5 % (11.0-16.0); SCAN SMEAR FLAG 1; White Blood Count 8.8 X10*3/uL (4.8-10.8)
[2023-08-09 21:29] LABS: VBG Base Excess 5.7 mmol/L; VBG HCO3 30 mmol/L (22-26); VBG pCO2 45 mmHg; VBG pH 7.43 (7.32-7.43); VBG pO2 50 mmHg
[2023-08-09 21:39] LABS: Lactic Acid 1.5 mmol/L (0.5-2.0)
[2023-08-09 21:44] LABS: Alanine Aminotransferase 23 U/L (0-40); Albumin Level 2.8 g/dL (3.5-5.0); Alkaline Phosphatase 43 U/L (39-117); Anion Gap 13 (12-20); Aspartate Amino Transferase 18 U/L (5-37); Bilirubin Total 0.8 mg/dL (0.0-1.0); Blood Urea Nitrogen 47 mg/dL (9-16); Calcium 8.9 mg/dL (8.4-10.2); Carbon Dioxide 29 mmol/L (22-29); Chloride 106 mmol/L (96-108); Creatinine Clr Calc Pharmacy 116.9; Estimated Glomerular Filt Rate > 60; Glucose Random 171 mg/dL (60-115); Magnesium 2.3 mg/dL (1.6-2.6); Phosphorus 1.7 mg/dL (2.7-4.5); Potassium 3.6 mmol/L (3.3-5.1); Sodium 144 mmol/L (135-145); Total Protein 6.5 g/dL (6.5-8.0)
[2023-08-09 21:50] LABS: SLIDE REVIEW VERIFIED
[2023-08-09] MEDS: Fluconazole in NaCl,Iso-Osm 200 MG/100 ML PIGGYBACK 100 MG IV (22:20)
[2023-08-09] MEDS: Potassium Phosphate/NS 15 MMOL/250 ML PLAST..BAG 62.5 MMOL IV (23:31)
[2023-08-10] VITALS (27 sets, daily range): BP systolic 89–134; BP diastolic 43–86; PULSE 70–112; RESP 15–102; TEMP 36.6–38.5; O2SAT 92–100
--- NOTE | 2023-08-10 | ECG_ITS ---
Test Reason : ICU Evaluation Blood Pressure : / mmHG Vent. Rate : 104 BPM Atrial Rate : 000 BPM P-R Int : 000 ms QRS Dur : 110 ms QT Int : 422 ms P-R-T Axes : 000 -20 033 degrees QTc Int : 554 ms Accelerated Junctional rhythm Minimal voltage criteria for LVH, may be normal variant ( R in aVL ) Prolonged QT Abnormal ECG When compared with ECG of 30-DEC-2022 00:11, Junctional rhythm has replaced Sinus rhythm Referred By: Selin Mejia Electronically Signed By:WILLIAM LU MD
--- NOTE | 2023-08-10 00:02 | PM.CCN ---
Critical Care Event Note Summary Date of Service: 08/09/23 Code activated: No Narrative: This case had a high probability of a clinically significant, sudden, or life threatening deterioration of this patient's condition which required my full and direct attention, intervention and personal management. Critical Care Time (minutes): 60 Comment: Patient's chart, laboratories, images and sequence of events since admission were reviewed in detail.? I also discussed the case personally with the patient's surgeon Dr. Brasher at bedside. Patient transferred to the ICU today 08/09/2023 8 pm ?POD #0 ?Status post emergent laparotomy with small-bowel resection of 140-150 cm of small bowel with multiple areas of perforation, ischemia. HPI/hospital course summary: ?53-year-old patient with underlying history of Guillain-[place] syndrome, DVT, PE (on Xarelto which was discontinued and reversed with Kcentra prior to today's surgery); morbid obesity, right femoral fracture who is bed-bound, has intermittent constipation and at the time had not had a bowel movement for over a week when normally he has 1 daily. ?had presented initially to the emergency room with acute onset abdominal pain which started on 08/05/2023, he then presented to the emergency room on 08/06/2023 with the same symptoms which she described as intermittent, dull and achy in a continuous manner rated 8/10 and associated with nausea and vomiting; however nothing made it better, trying to drink some juice made it worse.? At the time, patient had a CT abdomen pelvis with contrast which showed dilated contrast filled proximal small bowel with a question of proximal small bowel obstruction and large amount of stool suggestive of constipation.? Distal colon dilation into the rectum. Patient had been admitted to the medical floor with surgical consult for management of the small bowel obstruction, was kept NPO, IV fluids were given, antiemetics and analgesia; on his diet was advanced to clear liquid he was given a regimen for constipation including Dulcolax and fleets.? He did have episodes of nausea and vomiting x2; and had continued to have abdominal discomfort, KUB repeated on 08/08/2023 showed dilated small-bowel loops with heavy stool volume in the rectum.? Patient followed by Dr. Brasher, small-bowel series ordered at the time but his abdomen was soft and benign. ?At this time it was also noted the patient had elevated white count, tachycardia therefore a septic workup was started including blood cultures and lactic acid, patient was given IV Rocephin and Flagyl, started on IV fluids as the patient had become somewhat hypotensive. On 08/09/2023, NG tube placement was done for decompression given the ongoing nausea and vomiting, bowel serious done and reviewed by General surgery Dr. Brasher who reports reviewing the CT scan and small bowel abdominal series from today with which showed contrast appearing to go through all the way to the colon however some free air was also noted along with loop of small bowel distention and pneumatosis in the mid right abdomen suspicious for the source of free air. At this time, he had discussed the findings with the patient's well as the patient's healthcare proxy (his girlfriend Mercedes Escamilla phone number [phone] to whom he had explain the emergent need of performing a laparotomy with possible bowel resection. ?Given that the patient was on Xarelto; pior to the surgery Kcentra had been administered. Patient presented to the ICU at 20:00, extubated and otherwise hemodynamically stable, answering questions appropriately in no acute distress, surgical dressing intact and clean in the midabdomen.? Vasquez catheter in place with about 180 cc of dark yellow urine otherwise stable vital signs, my review reveals chronic tachycardia. Patient has a single 20g IV access and the need of central line placement were discussed in detail with the patient as well as with the patient's healthcare proxy over the phone, risks and benefits were discussed in detail and they both agree. Will continue with ICU care given the patient's medical history of Guillain-[place] as well as the surgical findings; it is concerning that he could decompensate rather quickly, this was also discussed with the patient's healthcare proxy.? Patient remains full code. Repeat laboratories will be ordered, will switch antibiotics to Zosyn for broader and more unified coverage, I do not think that he needs vancomycin at this point, I do think however he needs antifungal coverage for which fluconazole IV x1 will be given until further decision is made and or infectious diseases consulted. He does not need vasopressors, we will give him IV fluids, electrolyte replacement and albumin. Will order pneumatic stockings while in bed. Critical care time used for critical evaluation of this patient, diagnosis, treatment and coordination of care, review her records and documentation TOTAL CRITICAL CARE TIME? 60 MIN . discussion and coordination with consultants, completely separate from any procedures performed. Patient's care was discussed in detail with Dr. Mejia.? She is aware of all the above as well as the plan of care for this patient. . ?
[2023-08-10] MEDS: Albumin Human 25 % 100 ML IV ×4 (00:10→03:17)
[2023-08-10] MEDS: Piperacillin Sodium/Tazobactam 3.375 GM in 0.9 % Sodium Chloride 50 ML IV ×4 (02:11→20:18)
[2023-08-10] MEDS: Lactated Ringers 500 ML 999 ML IV (02:38)
[2023-08-10] MEDS: Lactated Ringers 1,000 ML 100 ML IVCONT (03:16)
[2023-08-10] MEDS: Potassium Phosphate/NS 15 MMOL/250 ML PLAST..BAG 62.5 MMOL IV ×4 (03:33→20:18)
[2023-08-10 05:00] LABS: VBG Base Excess 7.1 mmol/L; VBG HCO3 31 mmol/L (22-26); VBG pCO2 42 mmHg; VBG pH 7.47 (7.32-7.43); VBG pO2 54 mmHg
[2023-08-10 05:09] LABS: Venous Blood Gas Refer to POC result
[2023-08-10 05:22] LABS: MANUAL DIFF FLAG NO
[2023-08-10 05:24] LABS: Basophils Percent Auto 0.6 % (0-2); Hematocrit 33.9 % (42.0-52.0); Hemoglobin 11.4 g/dl (14.0-18.0); Imm Gran Abs Auto 0.16 X10*3/uL (0.00-0.03); Imm Gran Pct Auto 2.2 % (0.0-0.4); Lymphocytes Absolute Auto 1.1 X10*3/uL (1.2-4.9); Lymphocytes Percent Auto 15.4 % (20-40); Mean Corpuscular HGB Conc 33.6 g/dl (31.0-36.0); Mean Corpuscular Hemoglobin 29.1 pg (27.0-33.0); Mean Corpuscular Volume 86.5 fL (80.0-98.0); Mean Platelet Volume 10.7 fL (9.4-12.4); Monocytes Absolute Auto 1.3 X10*3/uL (0.1-1.2); Monocytes Percent Auto 17.8 % (2-11); NRBC Pct Auto 0.3 /100WBC (0.0-0.2); Neutrophils Absolute Auto 4.6 x10*3/uL (2.0-8.3); Platelet Count 254 X10*3/uL (160-400); Red Blood Count 3.92 X10*6/uL (4.60-5.80); Red Cell Distribution Width 14.5 % (11.0-16.0); White Blood Count 7.2 X10*3/uL (4.8-10.8)
[2023-08-10 05:38] LABS: Alanine Aminotransferase 16 U/L (0-40); Albumin Level 3.6 g/dL (3.5-5.0); Alkaline Phosphatase 49 U/L (39-117); Anion Gap 15 (12-20); Aspartate Amino Transferase 15 U/L (5-37); Bilirubin Total 1.2 mg/dL (0.0-1.0); Blood Urea Nitrogen 35 mg/dL (9-16); Calcium 8.7 mg/dL (8.4-10.2); Carbon Dioxide 29 mmol/L (22-29); Chloride 107 mmol/L (96-108); Creatinine Clr Calc Pharmacy 119.1; Estimated Glomerular Filt Rate > 60; Glucose Random 160 mg/dL (60-115); Potassium 3.5 mmol/L (3.3-5.1); Sodium 147 mmol/L (135-145); Total Protein 6.1 g/dL (6.5-8.0)
[2023-08-10] MEDS: Dextrose 5 % and Lactated Ring 1,000 ML 100 ML IVCONT (06:05)
--- NOTE | 2023-08-10 06:23 | PC.NURSE ---
PATIENT TRANSFERRED FROM [place] TO [facility] APPROX 8PM...PATIENT AWAKE..ORIENTED X3..OCCASIONAL VAGUE COMMENTS INITIALLY BUT IMPROVED OVERNIGHT....O2 WEANED FROM 9 L/M VIA MASK ON ARRIVAL TO 2 L/M CANNULA WITH SAO2 98-99%...PLACED ROOM AIR BUT SAO2 87-89% WHEN ASLEEP..,MAINTAINED 2 L/M O2 VIA CANNULA. ABDOMEN SOFT BUT SILENT..ABDOMINAL DRESSING DRY/INTACT....NG-TUBE DRAINED 400ml BILIOUS DRAINAGE 8PM-5AM...PASSED LARGE SOFT BROWN BM ON BEDPAN...EPISODIC PERIODS OF RECURRANT HICCUPS..ICU PA AWARE...NO THORAZINE TO BE ORDERED D/T HISTORY GUILLIAN-BARRE....KNOWLES 100-125 CC/HR BLADDER CLEANER YELLOW URINE....#[address] TO ARRIVAL TO RIGHT WRIST...TLC PLACED TO RIGHT JUGULAR SITE FOR POSSIBLE NEED FOR PRESSORS AND FLUID RESUSCITATION...BP SOFT BUT STABLE OVERNIGHT..SBP 90'S-110'S....PER ICU PA TO NOTIFY IF MAP <60..DENIES PAIN AT REST..REMAINS WITH CHRONIC HIP PAIN ON POSITIONING..
--- NOTE | 2023-08-10 07:42 | PM.CCPN ---
Subjective Subjective Date of Service: 08/10/23 Interval History: POD1, interval hypotension this AM Critical Care Time (minutes): 90 Physical Exam Vital Signs: Vital Signs: Last Vital Signs Temp 98.9 F 08/10/23 05:05 Pulse 105 H 08/10/23 07:00 Resp 17 08/10/23 07:00 BP 90/45 L 08/10/23 07:00 Pulse Ox 95 08/10/23 07:00 O2 Del Method Nasal Cannula 08/10/23 07:00 O2 Flow Rate 2 08/10/23 07:00 BMI result Body Mass Index 51.5 Const: General: cooperative, comfortable, no acute distress, alert, awake and Physically active Orientation/consciousness: patient oriented x3 HEENT: Head: Yes normal to inspection, Yes normocephalic and Yes atraumatic Eyes: General: appearance normal, both eyes and all related structures Neck: Neck: Yes normal visual inspection, Yes full ROM, Yes no meningeal signs and Yes supple Chest: Chest palpation & inspection: normal inspection of the chest Resp: Other: no appreciable rales, rhonchi, wheezing Effort & Inspection: normal respiratory effort Cardio: Rate: tachycardic Rhythm: regular rhythm GI: Other: appreciable surgical incision, clean, dry, intact with overlying bandage Inspection: No Abdominal wall edema and No distended Palpation (GI): Soft to palpation, not firm, nontender, no guarding and not rigid Skin: General skin exam: no rashes or lesions noted Neuro: General: patient oriented x3, tone normal, moves all extremities, no meningeal signs and no focal motor deficits Extrem: General: Yes normal to inspection, Yes full ROM, Yes capillary refill normal and Yes no clubbing, cyanosis or edema Psych: Appearance: grossly normal Objective Data Labs 08/10/23 04:45 08/10/23 04:45 Labs: Laboratory Results - last 24 hr 08/09/23 08/09/23 08/09/23 05:41 10:05 17:08 WBC 7.6 RBC Hgb Hct MCV MCH MCHC RDW Plt Count MPV Immature Gran % (Auto) Neut % (Auto) Lymph % (Auto) [place] % (Auto) Eos % (Auto) Baso % (Auto) Lymph # (Auto) [place] # (Auto) Eos # (Auto) Baso # (Auto) Abs Immat Gran (auto) Absolute Neuts (auto) Absolute Nucleated RBC Nucleated RBC % (auto) Neutrophils % (Manual) 23 L Band Neutrophils % 41 H Lymphocytes % (Manual) 10 L Monocytes % (Manual) 21 H Metamyelocytes % 4 Myelocytes % 1 Abs Neuts (Manual) 4.9 Lymphocytes # (Manual) 0.8 L Monocytes # (Manual) 1.6 H Metamyelocytes # 0.3 Myelocytes # 0.1 Toxic Granulation PRESENT Toxic Vacuolation PRESENT Platelet Estimate NORMAL Plt Morphology Comment NORMAL RBC Morphology NOTED Acanthocytes (Spur) 1+ (0-2) Smear Tech's Comments VBG pH VBG pCO2 VBG pO2 VBG HCO3 VBG O2 Saturation VBG Base Excess Sodium 141 141 Potassium 4.4 4.2 Chloride 102 102 Carbon Dioxide 28 28 Anion Gap 15 15 BUN 54 H 55 H Creatinine 1.39 1.32 Estim Creat Clear Calc 73.1 77.0 Estimated GFR 54 57 Random Glucose 173 H 188 H Lactic Acid Calcium 9.1 9.6 Phosphorus Magnesium Total Bilirubin AST ALT Alkaline Phosphatase Total Protein Albumin TSH 2.79 Blood Type O Positive Antibody Screen NEGATIVE 08/09/23 08/09/23 08/09/23 21:19 21:19 21:19 WBC 8.8 RBC 5.04 Hgb 14.4 Hct 43.5 MCV 86.3 MCH 28.6 MCHC 33.1 RDW 14.5 Plt Count 280 MPV 10.3 Immature Gran % (Auto) 1.8 H Neut % (Auto) 70.5 Lymph % (Auto) 9.5 L [place] % (Auto) 17.4 H Eos % (Auto) 0.2 Baso % (Auto) 0.6 Lymph # (Auto) 0.8 L [place] # (Auto) 1.5 H Eos # (Auto) 0.0 Baso # (Auto) 0.1 Abs Immat Gran (auto) 0.16 H Absolute Neuts (auto) 6.2 Absolute Nucleated RBC 0.030 H Nucleated RBC % (auto) 0.3 H Neutrophils % (Manual) Band Neutrophils % Lymphocytes % (Manual) Monocytes % (Manual) Metamyelocytes % Myelocytes % Abs Neuts (Manual) Lymphocytes # (Manual) Monocytes # (Manual) Metamyelocytes # Myelocytes # Toxic Granulation Toxic Vacuolation Platelet Estimate Plt Morphology Comment RBC Morphology Acanthocytes (Spur) Smear Tech's Comments VERIFIED VBG pH VBG pCO2 VBG pO2 VBG HCO3 VBG O2 Saturation VBG Base Excess Sodium 144 Potassium 3.6 Chloride 106 Carbon Dioxide 29 Anion Gap 13 BUN 47 H Creatinine 1.05 Estim Creat Clear Calc 116.9 Estimated GFR > 60 Random Glucose 171 H Lactic Acid 1.5 Calcium 8.9 D Phosphorus 1.7 L Cancelled Magnesium 2.3 Cancelled Total Bilirubin 0.8 AST 18 ALT 23 Alkaline Phosphatase 43 Total Protein 6.5 Albumin 2.8 L TSH Blood Type Antibody Screen 08/09/23 08/10/23 08/10/23 21:23 04:45 04:54 WBC 7.2 RBC 3.92 L D Hgb 11.4 L D Hct 33.9 L D MCV 86.5 MCH 29.1 MCHC 33.6 RDW 14.5 Plt Count 254 MPV 10.7 Immature Gran % (Auto) 2.2 H Neut % (Auto) 64.0 Lymph % (Auto) 15.4 L [place] % (Auto) 17.8 H Eos % (Auto) 0.0 Baso % (Auto) 0.6 Lymph # (Auto) 1.1 L [place] # (Auto) 1.3 H Eos # (Auto) 0.0 Baso # (Auto) 0.0 Abs Immat Gran (auto) 0.16 H Absolute Neuts (auto) 4.6 Absolute Nucleated RBC 0.020 H Nucleated RBC % (auto) 0.3 H Neutrophils % (Manual) Band Neutrophils % Lymphocytes % (Manual) Monocytes % (Manual) Metamyelocytes % Myelocytes % Abs Neuts (Manual) Lymphocytes # (Manual) Monocytes # (Manual) Metamyelocytes # Myelocytes # Toxic Granulation Toxic Vacuolation Platelet Estimate Plt Morphology Comment RBC Morphology Acanthocytes (Spur) Smear Tech's Comments VBG pH 7.43 7.47 H VBG pCO2 45 42 VBG pO2 50 54 VBG HCO3 30 H 31 H VBG O2 Saturation 79.0 85.0 VBG Base Excess 5.7 7.1 Sodium 147 H Potassium 3.5 Chloride 107 Carbon Dioxide 29 Anion Gap 15 BUN 35 H Creatinine 1.03 Estim Creat Clear Calc 119.1 Estimated GFR > 60 Random Glucose 160 H Lactic Acid Calcium 8.7 Phosphorus Magnesium Total Bilirubin 1.2 H AST 15 ALT 16 Alkaline Phosphatase 49 Total Protein 6.1 L Albumin 3.6 TSH Blood Type Antibody Screen Microbiology Microbiology Results: Microbiology 08/08/23 17:22 Blood - Venous Blood Culture - Preliminary No growth after 24 hours. 08/08/23 17:22 Blood - Venous Blood Culture - Preliminary No growth after 24 hours. 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, presenting initially on 08/05 to ED w/ abdominal pain, admitted medicine floor, repeat CT A/P on 08/08 c/f free intra-abdominal and intra-luminal air, taken for laparotomy, found to have 150 cm ischemic small bowel, now s/p resection N: no acute issues; chronic guillain-barre syndrome CV: hypotension, c/f distributive shock; norepinephrine gtt R: no acute issues GI: ischemic small bowel, unclear etiology, now s/p resection; NPO : no acute issues H: no acute issues ID: empiric zosyn, fluconazole in setting of ischemic bowel E: no acute issues; to continue to monitor for hypo-/hyper-glycemia P: no acute issues Quality Stroke Does the patient have a stroke diagnosis?: No VTE Prior VTE?: No VTE Risk Level:: Medical - moderate - high VTE Device Contraindication: Treatment Not Indicated VTE Drug Contraindication: Treatment Not Tolerated
[2023-08-10] MEDS: Norepinephrine Bitartrate/D5W 8 MG/250 ML PLAST..BAG 13.98 MG IV ×2 (07:55→23:08)
--- NOTE | 2023-08-10 08:02 | P.PNGS_ITS ---
Subjective Subjective Date of Service: 08/10/23 <Lashay Alcaraz PA-C - Last Filed: 08/10/23 08:11> 08/11/23 <Francisco Brasher MD - Last Filed: 08/11/23 08:44> Interval history: States he feels better overall with less abd pain and only mild incisional discomfort. Passing flatus and moving bowels. NGT with 400cc output overnight. <Lashay Alcaraz PA-C - Last Filed: 08/10/23 08:11> Physical Exam 2 Vital Signs: Vital Signs: Last Vital Signs Temp 98.9 F 08/10/23 05:05 Pulse 104 H 08/10/23 07:55 Resp 17 08/10/23 07:00 BP 98/47 L 08/10/23 07:55 Pulse Ox 95 08/10/23 07:00 O2 Del Method Nasal Cannula 08/10/23 07:00 O2 Flow Rate 2 08/10/23 07:00 BMI result Body Mass Index 51.5 <Lashay Alcaraz PA-C - Last Filed: 08/10/23 08:11> Const: General: comfortable, no acute distress and alert <Lashay Alcaraz PA-C - Last Filed: 08/10/23 08:11> Orientation/consciousness: patient oriented x3 <Lashay Alcaraz PA-C - Last Filed: 08/10/23 08:11> Resp: Effort & Inspection: normal respiratory effort <Lashay Alcaraz PA-C - Last Filed: 08/10/23 08:11> Cardio: Rate: tachycardic <Lashay Alcaraz PA-C - Last Filed: 08/10/23 08:11> GI: Inspection: Yes incision (dressing c/d/i) and Yes obesity <BRUCE Smith Last Filed: 08/10/23 08:11> Palpation (GI): Soft to palpation, Tenderness to palpation present (GI) (mild incisional), no guarding and not rigid <BRUCE Smith Last Filed: 08/10/23 08:11> Skin: General skin exam: no rashes or lesions noted <Lashay Alcaraz PA-C - Last Filed: 08/10/23 08:11> Neuro: General: patient oriented x3 <Lashay Alcaraz PA-C - Last Filed: 08/10/23 08:11> Objective Data Active Medications Acetaminophen (Acetaminophen 325 Mg Tablet) 650 mg PO Q6H PRN PRN Reason: Pain, Mild (Pain Scale 1-3) Last Admin: 08/08/23 13:39 Dose: 650 mg Documented By: LIDIA Bisacodyl (Bisacodyl 10 Mg Supp.Rect) 10 mg FL DAILY PRN PRN Reason: Constipation Famotidine (Famotidine 20 Mg Tablet) 20 mg PO DAILY [facility] Last Admin: 08/09/23 10:17 Dose: Not Given Documented By: EMEKA Non-Admin Reason: NPO Sodium Chloride (Ns) 1,000 mls @ 100 mls/hr IVCONT .Q10H [facility] Last Admin: 08/10/23 00:19 Dose: Not Given Documented By: JILLIAN Non-Admin Reason: Physician Held Med Piperacillin Sod/Tazobactam (Sod 3.375 gm/ Sodium Chloride) 50 mls @ 100 mls/hr IV Q6H [facility] Last Infusion: 08/10/23 02:52 Dose: Infused Documented By: JILLIAN Dextrose/Lactated Ringer's (D5lr) 1,000 mls @ 100 mls/hr IVCONT .Q10H [facility] Last Admin: 08/10/23 06:05 Dose: 100 mls/hr Documented By: JILLIAN Potassium Phosphate (Kphos) 15 mmol in 250 mls @ 62.5 mls/hr IV Q4H [facility] Stop: 08/10/23 15:29 Last Admin: 08/10/23 07:46 Dose: 62.5 mls/hr Documented By: RAYMOND Norepinephrine Bitartrate (Levophed) 8 mg in 250 mls @ 0 mls/hr IV .Q0M [facility]; Protocol Last Admin: 08/10/23 07:55 Dose: 0.05 mcg/kg/min, 13.98 mls/hr Documented By: RAYMOND Fluconazole (Diflucan) 400 mg in 200 mls @ 100 mls/hr IV Q24H [facility] Melatonin (Melatonin 3 Mg Tablet) 6 mg PO BEDTIME PRN PRN Reason: Insomnia Morphine Sulfate (Morphine Sulfate 4 Mg/Ml Cartridge) 4 mg IVPUSH Q4H PRN; Protocol PRN Reason: Pain, Severe (Pain Scale 7-10) Last Admin: 08/09/23 09:21 Dose: 4 mg Documented By: EMEKA Ondansetron HCl (Ondansetron Hcl 4 Mg/2 Ml Vial) 4 mg IVPUSH Q6H PRN PRN Reason: Nausea and Vomiting Last Admin: 08/07/23 20:34 Dose: 4 mg Documented By: YADIRA Simethicone (Simethicone 80 Mg Tab.Chew) 80 mg PO TID PRN PRN Reason: gas Last Admin: 08/08/23 22:32 Dose: 80 mg Documented By: PEDRO Sodium Biphosphate/Sodium Phosphate (Sodium Phosphate,[place]-Dibasic 133 Ml Enema) 133 ml FL ONCE PRN PRN Reason: Constipation Last Admin: 08/08/23 14:23 Dose: 133 ml Documented By: LIDIA Sodium Chloride (0.9 % Sodium Chloride Flush 3 Ml Syringe) 3 ml IVFLUSH [facility] Last Admin: 08/09/23 20:28 Dose: 3 ml Documented By: JILLIAN Vitamin D (Cholecalciferol (Vitamin D3) 25 Mcg Tablet) 25 mcg PO DAILY [facility] Last Admin: 08/09/23 10:17 Dose: Not Given Documented By: EMEKA Non-Admin Reason: NPO <Lashay Alcaraz PA-C - Last Filed: 08/10/23 08:11> Labs CBC & Chem 7: 08/11/23 07:36 08/11/23 04:30 <Lashay Alcaraz PA-C - Last Filed: 08/10/23 08:11> Labs: Laboratory Results - last 24 hr 08/09/23 08/09/23 08/09/23 05:41 10:05 17:08 MCV MCH MCHC RDW Plt Count MPV Immature Gran % (Auto) Neut % (Auto) Lymph % (Auto) [place] % (Auto) Eos % (Auto) Baso % (Auto) Lymph # (Auto) [place] # (Auto) Eos # (Auto) Baso # (Auto) Abs Immat Gran (auto) Absolute Neuts (auto) Absolute Nucleated RBC Nucleated RBC % (auto) Abs Neuts (Manual) 4.9 Lymphocytes # (Manual) 0.8 L Monocytes # (Manual) 1.6 H Metamyelocytes # 0.3 Myelocytes # 0.1 Smear Tech's Comments VBG pH VBG pCO2 VBG pO2 VBG HCO3 VBG O2 Saturation VBG Base Excess Anion Gap 15 Estim Creat Clear Calc 77.0 Estimated GFR 57 Random Glucose 188 H Lactic Acid Calcium 9.6 Phosphorus Magnesium Total Bilirubin AST ALT Alkaline Phosphatase Total Protein Albumin TSH 2.79 Blood Type O Positive Antibody Screen NEGATIVE 08/09/23 08/09/23 08/09/23 21:19 21:19 21:19 MCV 86.3 MCH 28.6 MCHC 33.1 RDW 14.5 Plt Count 280 MPV 10.3 Immature Gran % (Auto) 1.8 H Neut % (Auto) 70.5 Lymph % (Auto) 9.[address] [place] % (Auto) 17.4 H Eos % (Auto) 0.2 Baso % (Auto) 0.6 Lymph # (Auto) 0.[address] [place] # (Auto) 1.5 H Eos # (Auto) 0.0 Baso # (Auto) 0.1 Abs Immat Gran (auto) 0.16 H Absolute Neuts (auto) 6.2 Absolute Nucleated RBC 0.030 H Nucleated RBC % (auto) 0.3 H Abs Neuts (Manual) Lymphocytes # (Manual) Monocytes # (Manual) Metamyelocytes # Myelocytes # Smear Tech's Comments VERIFIED VBG pH VBG pCO2 VBG pO2 VBG HCO3 VBG O2 Saturation VBG Base Excess Anion Gap 13 Estim Creat Clear Calc 116.9 Estimated GFR > 60 Random Glucose 171 H Lactic Acid 1.5 Calcium 8.9 D Phosphorus 1.7 L Cancelled Magnesium 2.3 Cancelled Total Bilirubin 0.8 AST 18 ALT 23 Alkaline Phosphatase 43 Total Protein 6.5 Albumin 2.8 L TSH Blood Type Antibody Screen 08/09/23 08/10/23 08/10/23 21:23 04:45 04:54 MCV 86.5 MCH 29.1 MCHC 33.6 RDW 14.5 Plt Count 254 MPV 10.7 Immature Gran % (Auto) 2.2 H Neut % (Auto) 64.0 Lymph % (Auto) 15.[address] [place] % (Auto) 17.8 H Eos % (Auto) 0.0 Baso % (Auto) 0.6 Lymph # (Auto) 1.[address] [place] # (Auto) 1.3 H Eos # (Auto) 0.0 Baso # (Auto) 0.0 Abs Immat Gran (auto) 0.16 H Absolute Neuts (auto) 4.6 Absolute Nucleated RBC 0.020 H Nucleated RBC % (auto) 0.3 H Abs Neuts (Manual) Lymphocytes # (Manual) Monocytes # (Manual) Metamyelocytes # Myelocytes # Smear Tech's Comments VBG pH 7.43 7.47 H VBG pCO2 45 42 VBG pO2 50 54 VBG HCO3 30 H 31 H VBG O2 Saturation 79.0 85.0 VBG Base Excess 5.7 7.1 Anion Gap 15 Estim Creat Clear Calc 119.1 Estimated GFR > 60 Random Glucose 160 H Lactic Acid Calcium 8.7 Phosphorus Magnesium Total Bilirubin 1.2 H AST 15 ALT 16 Alkaline Phosphatase 49 Total Protein 6.1 L Albumin 3.6 TSH Blood Type Antibody Screen <Lashay Alcaraz PA-C - Last Filed: 08/10/23 08:11> Microbiology Microbiology Results: Microbiology 08/08/23 17:22 Blood Culture - Preliminary Blood - Venous No growth after 24 hours. 08/08/23 17:22 Blood Culture - Preliminary Blood - Venous No growth after 24 hours. <Lashay Alcaraz PA-C - Last Filed: 08/10/23 08:11> Procedures Date of Service Date of Service: 08/10/23 <Lashay Alcaraz PA-C - Last Filed: 08/10/23 08:11> 08/11/23 <Francisco Brasher MD - Last Filed: 08/11/23 08:44> Progress Note: A&P Assessment and plan (1) Ischemic bowel disease: Status: Acute <Lashay Alcaraz PA-C - Last Filed: 08/10/23 08:11> Assessment and Plan: No events reported overnight Says he is ?comfortable? Good urine output Blood pressure soft Despite clinical appearance today, intraop findings are concerning Long segment of ischemic looking bowel with multiple areas of perforation resected The rest of the visible small bowel appear edematous and inflamed as well Patient's level of pain and discomfort even from preop does not match with severity of illness I explained above to the patient and his girlfriend Mercedes at bedside Will need close monitoring Patient seen and examined independently <Francisco Brasher MD - Last Filed: 08/11/23 08:44> Assessment and Plan: Found to have pneumoperitoneum yesterday on f/u CT scan. Taken to OR emergently. Now POD #1 s/p laparotomy, extensive lysis of adhesions, small-bowel resection of 140 cm segment. Found to have long ischemic segment of the small bowel, with multiple areas of perforation, diffuse edema and distention of the small bowel including proximal and distal to the resected segment; spillage of enteric contents, extensive adhesions. Unclear etiology of ischemia. Patient remains critically ill however seems improved and abd seems benign but difficult to assess given body habitus and had seemed stable yesterday which is concerning. Labs ok this morning, repeat lactic acid pending. Bp is soft. Cont IV abx, fluids, NGT for now. Will need close monitoring. Remainder of care per ICU staff. <Lashay Alcaraz PA-C - Last Filed: 08/10/23 08:11> Time Spent With Patient Time: Total time managing care of this patient today ____ minutes. <Lashay Alcaraz PA-C - Last Filed: 08/10/23 08:11> Quality Stroke Does the patient have a stroke diagnosis?: No <Lashay Alcaraz PA-C - Last Filed: 08/10/23 08:11> VTE Prior VTE?: No <Lashay Alcaraz PA-C - Last Filed: 08/10/23 08:11> VTE Risk Level:: Medical - moderate - high <Lashay Alcaraz PA-C - Last Filed: 08/10/23 08:11> VTE Device Contraindication: Treatment Not Indicated <Lashay Alcaraz PA-C - Last Filed: 08/10/23 08:11> VTE Drug Contraindication: Treatment Not Tolerated <Lashay Alcaraz PA-C - Last Filed: 08/10/23 08:11>
[2023-08-10] MEDS: Fluconazole in NaCl,Iso-Osm 400 MG/200 ML PIGGYBACK 100 MG IV (08:10)
[2023-08-10] MEDS: 0.9 % Sodium Chloride Flush 3 ML SYRINGE IVFLUSH ×3 (08:10→19:21)
--- NOTE | 2023-08-10 10:55 | P.CDIM_ITS ---
PROVIDER RESPONSE TEXT: To clarify, the appropriate diagnosis supported by the clinical indicators: Acute QUERY TEXT: PHYSICIAN'S DOCUMENTATION REQUEST Date of Query: 08/10/2023 08:29 AM EDT Patient Name: Mathieu Anand Admit Date: 08/07/2023 Dear Selin Mejia, A review of the medical record indicates additional documentation may be needed. Please review below and update the documentation accordingly. Clinical Indicators: Per Critical Care Progress Note 08/10/23: ischemic small bowel, unclear etiology, now s/p resection; NPO Clarify which of the following accurately represents the acuity of the Ischemic Small Bowel. Possible options might include: Acute Acute on chronic Compensated Chronic stable condition Remission Other (explain) Clinically unable to determine (explain) Thank you, Yanira Ibrahim RN Use of terms such as suspected, likely, concern for, or probable (associated with a specific diagnosi s that is being evaluated, monitored, or treated as if it exists) are acceptable and can be coded in the inpatient se tting, when documented at the time of discharge. Please use your independent medical judgment in providing your response. THIS QUERY IS PART OF THE PERMANENT MEDICAL RECORD
[2023-08-10 11:17] LABS: Glucose, Whole Blood 159 mg/dL (60-115)
--- NOTE | 2023-08-10 12:44 | MHC.CM.PN ---
Pt transferred to ICU following bowel resection w/need for close post op monitoring. Pt somewhat fragile and is at risk for sepsis development. Original d/c plan was home w/family support: will discuss [facility]NA referral w/pt for skilled RN visits: CM to follow.
[2023-08-10 13:28] LABS: Magnesium 2.4 mg/dL (1.6-2.6)
--- NOTE | 2023-08-10 14:30 | HO.POSTANES ---
Post Anesthesia Evaluation Post Anesthesia Evaluation Date of Service: 08/10/23 Vital Signs: Vital Signs Temp Pulse Resp BP Pulse Ox O2 Del Method O2 Flow Rate 08/10/23 14:00 98 15 134/72 95 Nasal Cannula 2 08/10/23 13:00 96 15 133/79 96 Nasal Cannula 2 08/10/23 12:00 98.5 F 85 27 H 119/68 98 Nasal Cannula 2 08/10/23 11:00 Nasal Cannula 08/10/23 10:00 106 H 26 H 89/62 L 95 Nasal Cannula 2 08/10/23 09:00 94 25 H 96/50 L 92 Nasal Cannula 2 08/10/23 08:00 99.5 F 106 H 25 H 96/55 L 97 Nasal Cannula 2 08/10/23 07:55 104 H 98/47 L 08/10/23 07:00 105 H 17 90/45 L 95 Nasal Cannula 2 08/10/23 06:00 102 H 20 100/47 L 97 Nasal Cannula 2 08/10/23 05:05 98.9 F 08/10/23 05:00 98 24 H 99/53 L 99 Room Air 08/10/23 04:00 107 H 18 110/43 L 98 Room Air 08/10/23 03:00 112 H 19 96/51 L 97 Room Air Anesthesia: General Endotracheal-GETA Mental Status: Awake Pain Control: Satisfactory Nausea/Vomiting: None Hydration: Adequate Anesthesia-Related Issues: No Anes. Related Issues
--- NOTE | 2023-08-10 16:02 | HO.WOUND ---
Wound Consult: Initial 53yr old?M admitted to [facility] on 08/06/23 - See progress notes and H&P for detailed history.? Wound consult placed for Coccyx and Left Leg wound POA.? Patient agreeable to assessment and photo documentation.? Patient was turned and repositioned incontinent of liquid stool. The patients skin is detailed below but is consistent with MASD. There is evidence of previous pressure injury noted to the right ischium - currently resurfaced tissue. [place] intact hypopigmented tissue. Etiology: ?Sacrum, Coccyx, Buttock Wound Bed: [place] tissue with areas of denuded partial thickness tissue loss - pink clean wound bed Drainage / Odor: Difficult to assess as pt was incontinent of liquid stool Edges: irregular and attached Joy wound: Intact - pink hypo and hyperpigmented tissue - evidence of previous pressure injury -? No Induration, Fluctuance or Warmth noted Pain: mild tenderness reported mostly with position changes Goals of Treatment: ? Off Load Pressure and barrier cream to protect from moisture. Left upper lateral leg Etiology: Skin tear Wound Bed: [place] moist clean tissue Drainage / Odor: None noted Edges: Linear and attached Joy wound: Intact -? No Induration, Fluctuance or Warmth noted Pain: None Goals of Treatment: ?Moist wound healing with foam dressing Recommendations: 1. Turn and Reposition every 2 hours and as needed for patient comfort.? Use pillows or wedges to support off loading positions. 2. Off Load all bony prominences with use of pillows and heel boots if needed.? Apply Preventative foams where needed. ? 3. Monitor for incontinence and moisture control, use barrier creams when needed for prevention and treatment. 4. Provide adequate and supplemental nutrition.? 5. Order low air loss mattress Bariatric bed. 6. Left Upper Lateral Leg - Cleanse with NS moist gauze, pat dry. cover with Foam dressing peel back and assess Q shift change every 3 days. 7. Buttock, Sacrum and Coccyx - Off Load Pressure - Cleanse with PH balance spray or wipes, pat dry. ?Apply thin layer of [place] to wound bed - only pat and dab no scrub and rub when soiling occurs. Reapply thin layer PRN after each episode of incontinence. Re-consult wound care Nurse for wound deterioration or wound changes.
--- NOTE | 2023-08-10 16:11 | PM.EVENT ---
Event Note Date of Service: 08/11/23 Event Note: seen on PM rounds on low dose pressors vitals seem steady pt alert good UO NGT in place daughter Manasa, who is a med-surg nurse in [place], in room - I had a long discussion with her as well about events of yesterday, intraop findings she understands current illness she understands real risks of progression of disease in small bowel, including risks of anastomotic disruption continue current care for now - NGT, IVF, pain mgt although pt appears stable, he may became critically ill with persistent bowel ischemia his exam and clinical picture did not reflect gravity of intraabdominal process prior to surgery and CT scan findings yesterday Time Spent With Patient Time: Total time managing care of this patient today ____ minutes.
[2023-08-10 17:35] LABS: Glucose, Whole Blood 152 mg/dL (60-115)
[2023-08-10 18:37] LABS: Hematocrit 37.1 % (42.0-52.0); Mean Corpuscular HGB Conc 32.3 g/dl (31.0-36.0); Mean Corpuscular Hemoglobin 28.4 pg (27.0-33.0); Mean Corpuscular Volume 87.7 fL (80.0-98.0); Mean Platelet Volume 10.6 fL (9.4-12.4); Platelet Count 280 X10*3/uL (160-400); Red Blood Count 4.23 X10*6/uL (4.60-5.80); Red Cell Distribution Width 14.7 % (11.0-16.0); White Blood Count 8.7 X10*3/uL (4.8-10.8)
[2023-08-10 18:39] LABS: Lactic Acid 0.9 mmol/L (0.5-2.0)
[2023-08-10 18:41] LABS: Alanine Aminotransferase 17 U/L (0-40); Albumin Level 3.4 g/dL (3.5-5.0); Alkaline Phosphatase 37 U/L (39-117); Anion Gap 15 (12-20); Aspartate Amino Transferase 20 U/L (5-37); Bilirubin Total 0.9 mg/dL (0.0-1.0); Blood Urea Nitrogen 21 mg/dL (9-16); Carbon Dioxide 32 mmol/L (22-29); Chloride 109 mmol/L (96-108); Creatinine Clr Calc Pharmacy 144.4; Estimated Glomerular Filt Rate > 60; Glucose Random 162 mg/dL (60-115); Potassium 3.5 mmol/L (3.3-5.1); Sodium 152 mmol/L (135-145); Total Protein 6.4 g/dL (6.5-8.0)
[2023-08-10] MEDS: Acetaminophen 1,000 MG/100 ML PIGGYBACK 400 MG IV (19:17)
[2023-08-10 19:23] LABS: Magnesium 2.5 mg/dL (1.6-2.6); Phosphorus 1.6 mg/dL (2.7-4.5)
[2023-08-10 19:37] LABS: Band Neutrophils Percent 18 % (3-5); Basophils Abs Manual 0.1 X10*3/uL (0.0-0.2); Basophils Percent Manual 1 % (0-2); Eosinophils Absolute Manual 0.1 X10*3/uL (0.0-0.4); Eosinophils Percent Manual 1 % (0-4); Lymphocytes Absolute Manual 1.7 X10*3/uL (1.2-4.9); Lymphocytes Percent Manual 20 % (20-40); Metamyelocytes Absolute 0.1 X10*3/uL; Metamyelocytes Percent 1 %; Monocytes Percent Manual 12 % (2-11); Neutrophils Absolute Manual 5.7 X10*3/uL (2.0-8.3); Neutrophils Percent Manual 47 % (45-73)
[2023-08-10 19:38] LABS: Platelet Estimate NORMAL (NORMAL); Platelet Morphology Comment NORMAL; RBC Morphology NORMAL
[2023-08-10] MEDS: Magnesium Sulfate/H2O 2 GM/50 ML PIGGYBACK IV (23:03)
[2023-08-10 23:50] LABS: Glucose, Whole Blood 131 mg/dL (60-115)
[2023-08-11] VITALS (28 sets, daily range): BP systolic 107–152; BP diastolic 61–94; PULSE 86–100; RESP 13–91; TEMP 36.7–37.7; O2SAT 17–97; BMI 42.3
[2023-08-11] MEDS: Potassium Phosphate/NS 15 MMOL/250 ML PLAST..BAG 62.5 MMOL IV ×4 (00:18→21:36)
[2023-08-11] MEDS: Lidocaine 4 % Patch ADH..PATCH 1 PATCH TRANSDERMA ×2 (01:03→08:39)
[2023-08-11] MEDS: Piperacillin Sodium/Tazobactam 3.375 GM in 0.9 % Sodium Chloride 50 ML IV ×4 (03:03→21:36)
[2023-08-11 04:49] LABS: Hematocrit 37.9 % (42.0-52.0); Hemoglobin 12.4 g/dl (14.0-18.0); Mean Corpuscular HGB Conc 32.7 g/dl (31.0-36.0); Mean Corpuscular Volume 88.6 fL (80.0-98.0); Mean Platelet Volume 10.3 fL (9.4-12.4); NRBC Pct Auto 0.2 /100WBC (0.0-0.2); Platelet Count 269 X10*3/uL (160-400); Red Blood Count 4.28 X10*6/uL (4.60-5.80); Red Cell Distribution Width 14.9 % (11.0-16.0); White Blood Count 8.3 X10*3/uL (4.8-10.8)
[2023-08-11 05:05] LABS: Alanine Aminotransferase 18 U/L (0-40); Albumin Level 3.4 g/dL (3.5-5.0); Alkaline Phosphatase 40 U/L (39-117); Anion Gap 16 (12-20); Aspartate Amino Transferase 28 U/L (5-37); Bilirubin Total 0.7 mg/dL (0.0-1.0); Blood Urea Nitrogen 17 mg/dL (9-16); Calcium 9.2 mg/dL (8.4-10.2); Carbon Dioxide 33 mmol/L (22-29); Chloride 110 mmol/L (96-108); Creatinine Clr Calc Pharmacy 149.6; Estimated Glomerular Filt Rate > 60; Glucose Random 145 mg/dL (60-115); Magnesium 2.8 mg/dL (1.6-2.6); Phosphorus 2.5 mg/dL (2.7-4.5); Potassium 3.7 mmol/L (3.3-5.1); Sodium 155 mmol/L (135-145); Total Protein 6.7 g/dL (6.5-8.0)
[2023-08-11 05:17] LABS: Band Neutrophils Percent 21 % (3-5); Dohle Bodies PRESENT; Eosinophils Absolute Manual 0.1 X10*3/uL (0.0-0.4); Eosinophils Percent Manual 1 % (0-4); Giant Platelet PRESENT; Large Platelet PRESENT; Lymphocytes Absolute Manual 1.9 X10*3/uL (1.2-4.9); Lymphocytes Percent Manual 23 % (20-40); Metamyelocytes Absolute 0.1 X10*3/uL; Metamyelocytes Percent 1 %; Monocytes Absolute Manual 1.2 X10*3/uL (0.1-1.2); Monocytes Percent Manual 15 % (2-11); Neutrophils Percent Manual 39 % (45-73); Nucleated Red Blood Cells 1 /100WBC (0-0); Platelet Estimate NORMAL (NORMAL); Platelet Morphology Comment NOTED; Polychromasia 1+ (0-2) /OIF; RBC Morphology NOTED; Toxic Granulation PRESENT
[2023-08-11] MEDS: Dextrose 5 % 1,000 ML 80 ML IVCONT ×2 (05:34→18:16)
[2023-08-11 05:48] LABS: Glucose, Whole Blood 143 mg/dL (60-115)
[2023-08-11] MEDS: Albumin Human 25 % 100 ML IV ×2 (07:28→08:39)
[2023-08-11] MEDS: Fluconazole in NaCl,Iso-Osm 400 MG/200 ML PIGGYBACK 100 MG IV (07:28)
--- NOTE | 2023-08-11 07:39 | P.PNCC_ITS ---
Subjective Subjective Date of Service: 08/11/23 Interval History: no significant overnight events Critical Care Time (minutes): 90 Physical Exam 2 Vital Signs: Vital Signs: Last Vital Signs Temp 99.4 F 08/11/23 05:00 Pulse 92 08/11/23 07:00 Resp 27 H 08/11/23 07:00 BP 122/71 08/11/23 07:00 Pulse Ox 96 08/11/23 07:00 O2 Del Method Nasal Cannula 08/11/23 07:00 O2 Flow Rate 2 08/11/23 07:00 BMI result Body Mass Index 42.3 Const: General: cooperative, comfortable, no acute distress, alert, awake and Physically active Orientation/consciousness: patient oriented x3 HEENT: Head: Yes normal to inspection, Yes normocephalic and Yes atraumatic Eyes: General: appearance normal, both eyes and all related structures Neck: Neck: Yes full ROM and Yes supple Chest: Chest palpation & inspection: normal inspection of the chest Resp: Other: no appreciable rales, rhonchi, wheezing Effort & Inspection: normal respiratory effort Cardio: Rate: regular rate Rhythm: regular rhythm GI: Other: LLQ incision with overlying bandage Inspection: Yes normal to inspection, No Abdominal wall edema and No distended Palpation (GI): Soft to palpation, not firm, nontender, no guarding and not rigid Skin: General skin exam: no rashes or lesions noted Neuro: General: patient oriented x3 and tone normal Extrem: General: Yes normal to inspection, Yes capillary refill normal and Yes no clubbing, cyanosis or edema Psych: Appearance: grossly normal Objective Data Labs 08/11/23 04:30 08/11/23 04:30 Labs: Laboratory Results - last 24 hr 08/10/23 08/10/23 08/10/23 07:45 11:13 13:09 WBC RBC Hgb Hct MCV MCH MCHC RDW Plt Count MPV Immature Gran % (Auto) Neut % (Auto) Lymph % (Auto) Whitfield % (Auto) Eos % (Auto) Baso % (Auto) Lymph # (Auto) Whitfield # (Auto) Eos # (Auto) Baso # (Auto) Abs Immat Gran (auto) Absolute Neuts (auto) Absolute Nucleated RBC Nucleated RBC % (auto) Neutrophils % (Manual) Band Neutrophils % Lymphocytes % (Manual) Monocytes % (Manual) Eosinophils % (Manual) Basophils % (Manual) Metamyelocytes % Abs Neuts (Manual) Lymphocytes # (Manual) Monocytes # (Manual) Eosinophils # (Manual) Basophils # (Manual) Metamyelocytes # Nucleated RBCs Toxic Granulation Dohle Bodies Platelet Estimate Large Platelets Giant Platelets Plt Morphology Comment RBC Morphology Polychromasia Sodium Potassium Chloride Carbon Dioxide Anion Gap BUN Creatinine Estim Creat Clear Calc Estimated GFR POC Glucose 159 H Random Glucose Lactic Acid 1.0 Calcium Phosphorus 2.0 L Magnesium 2.4 Total Bilirubin AST ALT Alkaline Phosphatase Total Protein Albumin 08/10/23 08/10/23 08/10/23 17:29 18:16 23:46 WBC 8.7 RBC 4.23 L Hgb 12.0 L Hct 37.1 L MCV 87.7 MCH 28.4 MCHC 32.3 RDW 14.7 Plt Count 280 MPV 10.6 Immature Gran % (Auto) Cancelled Neut % (Auto) Cancelled Lymph % (Auto) Cancelled Whitfield % (Auto) Cancelled Eos % (Auto) Cancelled Baso % (Auto) Cancelled Lymph # (Auto) Cancelled Whitfield # (Auto) Cancelled Eos # (Auto) Cancelled Baso # (Auto) Cancelled Abs Immat Gran (auto) Cancelled Absolute Neuts (auto) Cancelled Absolute Nucleated RBC 0.000 Nucleated RBC % (auto) 0.0 Neutrophils % (Manual) 47 Band Neutrophils % 18 H Lymphocytes % (Manual) 20 Monocytes % (Manual) 12 H Eosinophils % (Manual) 1 Basophils % (Manual) 1 Metamyelocytes % 1 Abs Neuts (Manual) 5.7 Lymphocytes # (Manual) 1.7 Monocytes # (Manual) 1.0 Eosinophils # (Manual) 0.1 Basophils # (Manual) 0.1 Metamyelocytes # 0.1 Nucleated RBCs Toxic Granulation Dohle Bodies Platelet Estimate NORMAL Large Platelets Giant Platelets Plt Morphology Comment NORMAL RBC Morphology NORMAL Polychromasia Sodium 152 H Potassium 3.5 Chloride 109 H Carbon Dioxide 32 H Anion Gap 15 BUN 21 H Creatinine 0.85 Estim Creat Clear Calc 144.4 Estimated GFR > 60 POC Glucose 152 H 131 H Random Glucose 162 H Lactic Acid 0.9 Calcium 9.0 Phosphorus 1.6 L Magnesium 2.5 Total Bilirubin 0.9 AST 20 ALT 17 Alkaline Phosphatase 37 L Total Protein 6.4 L Albumin 3.4 L 08/11/23 08/11/23 08/11/23 04:30 04:30 04:30 WBC 8.3 RBC 4.28 L Hgb 12.4 L Hct 37.9 L MCV 88.6 MCH 29.0 MCHC 32.7 RDW 14.9 Plt Count 269 MPV 10.3 Immature Gran % (Auto) Cancelled Neut % (Auto) Cancelled Lymph % (Auto) Cancelled Whitfield % (Auto) Cancelled Eos % (Auto) Cancelled Baso % (Auto) Cancelled Lymph # (Auto) Cancelled Whitfield # (Auto) Cancelled Eos # (Auto) Cancelled Baso # (Auto) Cancelled Abs Immat Gran (auto) Cancelled Absolute Neuts (auto) Cancelled Absolute Nucleated RBC 0.020 H Nucleated RBC % (auto) 0.2 Neutrophils % (Manual) 39 L Band Neutrophils % 21 H Lymphocytes % (Manual) 23 Monocytes % (Manual) 15 H Eosinophils % (Manual) 1 Basophils % (Manual) Metamyelocytes % 1 Abs Neuts (Manual) 5.0 Lymphocytes # (Manual) 1.9 Monocytes # (Manual) 1.2 Eosinophils # (Manual) 0.1 Basophils # (Manual) Metamyelocytes # 0.1 Nucleated RBCs 1 H Toxic Granulation PRESENT Dohle Bodies PRESENT Platelet Estimate NORMAL Large Platelets PRESENT Giant Platelets PRESENT Plt Morphology Comment NOTED RBC Morphology NOTED Polychromasia 1+ (0-2) Sodium 155 H Cancelled Potassium 3.7 Cancelled Chloride 110 H Carbon Dioxide Anion Gap BUN Creatinine Estim Creat Clear Calc Estimated GFR POC Glucose Random Glucose Lactic Acid Calcium Phosphorus Magnesium Total Bilirubin AST ALT Alkaline Phosphatase Total Protein Albumin 08/11/23 08/11/23 08/11/23 04:30 04:30 04:30 WBC RBC Hgb Hct MCV MCH MCHC RDW Plt Count MPV Immature Gran % (Auto) Neut % (Auto) Lymph % (Auto) Whitfield % (Auto) Eos % (Auto) Baso % (Auto) Lymph # (Auto) Whitfield # (Auto) Eos # (Auto) Baso # (Auto) Abs Immat Gran (auto) Absolute Neuts (auto) Absolute Nucleated RBC Nucleated RBC % (auto) Neutrophils % (Manual) Band Neutrophils % Lymphocytes % (Manual) Monocytes % (Manual) Eosinophils % (Manual) Basophils % (Manual) Metamyelocytes % Abs Neuts (Manual) Lymphocytes # (Manual) Monocytes # (Manual) Eosinophils # (Manual) Basophils # (Manual) Metamyelocytes # Nucleated RBCs Toxic Granulation Dohle Bodies Platelet Estimate Large Platelets Giant Platelets Plt Morphology Comment RBC Morphology Polychromasia Sodium Potassium Chloride Cancelled Carbon Dioxide 33 H Cancelled Anion Gap 16 Cancelled BUN 17 H Creatinine Estim Creat Clear Calc Estimated GFR POC Glucose Random Glucose Lactic Acid Calcium Phosphorus Magnesium Total Bilirubin AST ALT Alkaline Phosphatase Total Protein Albumin 08/11/23 08/11/23 08/11/23 04:30 04:30 04:30 WBC RBC Hgb Hct MCV MCH MCHC RDW Plt Count MPV Immature Gran % (Auto) Neut % (Auto) Lymph % (Auto) Whitfield % (Auto) Eos % (Auto) Baso % (Auto) Lymph # (Auto) Whitfield # (Auto) Eos # (Auto) Baso # (Auto) Abs Immat Gran (auto) Absolute Neuts (auto) Absolute Nucleated RBC Nucleated RBC % (auto) Neutrophils % (Manual) Band Neutrophils % Lymphocytes % (Manual) Monocytes % (Manual) Eosinophils % (Manual) Basophils % (Manual) Metamyelocytes % Abs Neuts (Manual) Lymphocytes # (Manual) Monocytes # (Manual) Eosinophils # (Manual) Basophils # (Manual) Metamyelocytes # Nucleated RBCs Toxic Granulation Dohle Bodies Platelet Estimate Large Platelets Giant Platelets Plt Morphology Comment RBC Morphology Polychromasia Sodium Potassium Chloride Carbon Dioxide Anion Gap BUN Cancelled Creatinine 0.82 Cancelled Estim Creat Clear Calc 149.6 Cancelled Estimated GFR > 60 POC Glucose Random Glucose Lactic Acid Calcium Phosphorus Magnesium Total Bilirubin AST ALT Alkaline Phosphatase Total Protein Albumin 08/11/23 08/11/23 08/11/23 04:30 04:30 04:30 WBC RBC Hgb Hct MCV MCH MCHC RDW Plt Count MPV Immature Gran % (Auto) Neut % (Auto) Lymph % (Auto) Whitfield % (Auto) Eos % (Auto) Baso % (Auto) Lymph # (Auto) Whitfield # (Auto) Eos # (Auto) Baso # (Auto) Abs Immat Gran (auto) Absolute Neuts (auto) Absolute Nucleated RBC Nucleated RBC % (auto) Neutrophils % (Manual) Band Neutrophils % Lymphocytes % (Manual) Monocytes % (Manual) Eosinophils % (Manual) Basophils % (Manual) Metamyelocytes % Abs Neuts (Manual) Lymphocytes # (Manual) Monocytes # (Manual) Eosinophils # (Manual) Basophils # (Manual) Metamyelocytes # Nucleated RBCs Toxic Granulation Dohle Bodies Platelet Estimate Large Platelets Giant Platelets Plt Morphology Comment RBC Morphology Polychromasia Sodium Potassium Chloride Carbon Dioxide Anion Gap BUN Creatinine Estim Creat Clear Calc Estimated GFR Cancelled POC Glucose Random Glucose 145 H Cancelled Lactic Acid Calcium 9.2 Cancelled Phosphorus 2.5 L Magnesium Total Bilirubin AST ALT Alkaline Phosphatase Total Protein Albumin 08/11/23 08/11/23 08/11/23 04:30 04:30 05:41 WBC RBC Hgb Hct MCV MCH MCHC RDW Plt Count MPV Immature Gran % (Auto) Neut % (Auto) Lymph % (Auto) Whitfield % (Auto) Eos % (Auto) Baso % (Auto) Lymph # (Auto) Whitfield # (Auto) Eos # (Auto) Baso # (Auto) Abs Immat Gran (auto) Absolute Neuts (auto) Absolute Nucleated RBC Nucleated RBC % (auto) Neutrophils % (Manual) Band Neutrophils % Lymphocytes % (Manual) Monocytes % (Manual) Eosinophils % (Manual) Basophils % (Manual) Metamyelocytes % Abs Neuts (Manual) Lymphocytes # (Manual) Monocytes # (Manual) Eosinophils # (Manual) Basophils # (Manual) Metamyelocytes # Nucleated RBCs Toxic Granulation Dohle Bodies Platelet Estimate Large Platelets Giant Platelets Plt Morphology Comment RBC Morphology Polychromasia Sodium Potassium Chloride Carbon Dioxide Anion Gap BUN Creatinine Estim Creat Clear Calc Estimated GFR POC Glucose 143 H Random Glucose Lactic Acid Calcium Phosphorus Cancelled Magnesium 2.8 H Cancelled Total Bilirubin 0.7 AST 28 ALT 18 Alkaline Phosphatase 40 Total Protein 6.7 Albumin 3.4 L Microbiology Microbiology Results: Microbiology 08/08/23 17:22 Blood - Venous Blood Culture - Preliminary No growth after 48 hours. 08/08/23 17:22 Blood - Venous Blood Culture - Preliminary No growth after 48 hours. 08/09/23 Unknown Peritoneal Fluid Gram Stain - Final 08/09/23 Unknown Peritoneal Fluid Routine Culture - Preliminary No growth to date. 08/09/23 Unknown Peritoneal Fluid Anaerobic Culture - Preliminary Culture in progress. 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, presenting initially on 08/05 to ED w/ abdominal pain, admitted medicine floor, repeat CT A/P on 08/08 c/f free intra-abdominal and intra- luminal air, taken for laparotomy, found to have 150 cm ischemic small bowel, now s/p resection N: no acute issues; chronic guillain-barre syndrome CV: hypotension, c/f distributive shock, s/p norepinephrine gtt R: no acute issues GI: ischemic small bowel, unclear etiology, now s/p resection; ice chips, to consider TPN : no acute issues H: no acute issues; prior DVT, PE on home rivaroxaban; okay for DVT prophylaxis per general surgery ID: empiric [email or web address], fluconazole in setting of ischemic bowel E: no acute issues; to continue to monitor for hypo-/hyper-glycemia P: no acute issues Quality Stroke Does the patient have a stroke diagnosis?: No VTE Prior VTE?: No VTE Risk Level:: Medical - moderate - high VTE Device Contraindication: Treatment Not Indicated VTE Drug Contraindication: Treatment Not Tolerated
[2023-08-11 07:47] LABS: Basophils Absolute Auto 0.1 X10*3/uL (0.0-0.2); Basophils Percent Auto 1.1 % (0-2); Eosinophils Absolute Auto 0.1 X10*3/uL (0.0-0.4); Eosinophils Percent Auto 0.7 % (0-4); Hematocrit 36.7 % (42.0-52.0); Hemoglobin 11.6 g/dl (14.0-18.0); Imm Gran Abs Auto 0.42 X10*3/uL (0.00-0.03); Lymphocytes Absolute Auto 1.6 X10*3/uL (1.2-4.9); Lymphocytes Percent Auto 18.7 % (20-40); MANUAL DIFF FLAG SCAN; Mean Corpuscular HGB Conc 31.6 g/dl (31.0-36.0); Mean Corpuscular Hemoglobin 28.6 pg (27.0-33.0); Mean Corpuscular Volume 90.6 fL (80.0-98.0); Mean Platelet Volume 10.6 fL (9.4-12.4); Monocytes Absolute Auto 1.6 X10*3/uL (0.1-1.2); Monocytes Percent Auto 19.3 % (2-11); NRBC Pct Auto 0.2 /100WBC (0.0-0.2); Neutrophils Absolute Auto 4.7 x10*3/uL (2.0-8.3); Neutrophils Percent Auto 55.2 % (45-73); Platelet Count 270 X10*3/uL (160-400); Red Cell Distribution Width 14.9 % (11.0-16.0); SCAN SMEAR FLAG 1; White Blood Count 8.5 X10*3/uL (4.8-10.8)
[2023-08-11 07:49] LABS: Red Blood Count 4.05 X10*6/uL (4.60-5.80)
[2023-08-11 08:27] LABS: SLIDE REVIEW VERIFIED
[2023-08-11] MEDS: Enoxaparin Sodium 40 MG/0.4 ML SYRINGE SUBCUT (08:39)
--- NOTE | 2023-08-11 08:40 | P.PNGS_ITS ---
Subjective Subjective Date of Service: 08/11/23 Interval history: No events overnight NG tube output high overnight Patient says he feels better States pain is much improved Says he is passing flatus well Physical Exam 2 Vital Signs: Vital Signs: Last Vital Signs Temp 98.0 F 08/11/23 08:00 Pulse 100 08/11/23 08:00 Resp 18 08/11/23 08:00 BP 109/74 08/11/23 08:00 Pulse Ox 95 08/11/23 08:00 O2 Del Method Nasal Cannula 08/11/23 08:00 O2 Flow Rate 2 08/11/23 08:00 BMI result Body Mass Index 42.3 Const: General: no acute distress and alert Nutritional Appearance: obese Resp: Effort & Inspection: normal respiratory effort Cardio: Rhythm: regular rhythm GI: Other: Obese, dressings dry Palpation (GI): Soft to palpation Objective Data Active Medications Bisacodyl (Bisacodyl 10 Mg Supp.Rect) 10 mg LA DAILY PRN PRN Reason: Constipation Enoxaparin Sodium (Enoxaparin Sodium 40 Mg/0.4 Ml Syringe) 40 mg SUBCUT Q24H [facility] Last Admin: 08/11/23 08:39 Dose: 40 mg Documented By: GERMAN Famotidine (Famotidine 20 Mg Tablet) 20 mg PO DAILY [facility] Last Admin: 08/09/23 10:17 Dose: Not Given Documented By: EMEKA Non-Admin Reason: NPO Piperacillin Sod/Tazobactam (Sod 3.375 gm/ Sodium Chloride) 50 mls @ 100 mls/hr IV Q6H [facility] Last Infusion: 08/11/23 03:33 Dose: Infused Documented By: BG Norepinephrine Bitartrate (Levophed) 8 mg in 250 mls @ 0 mls/hr IV .Q0M [facility]; Protocol Last Titration: 08/11/23 03:20 Dose: 0 mcg/kg/min, 0 mls/hr Documented By: BG Fluconazole (Diflucan) 400 mg in 200 mls @ 100 mls/hr IV Q24H [facility] Last Admin: 08/11/23 07:28 Dose: 100 mls/hr Documented By: GERMAN Acetaminophen (Ofirmev) 1,000 mg in 100 mls @ 400 mls/hr IV Q6H PRN PRN Reason: Fever >100.4 Last Infusion: 08/10/23 19:32 Dose: Infused Documented By: BG Potassium Phosphate (Kphos) 15 mmol in 250 mls @ 62.5 mls/hr IV Q4H [facility] Stop: 08/11/23 15:59 Last Admin: 08/11/23 07:28 Dose: 62.5 mls/hr Documented By: GERMAN Dextrose (D5w) 1,000 mls @ 80 mls/hr IVCONT .[id number] [facility] Last Admin: 08/11/23 05:34 Dose: 80 mls/hr Documented By: BG Albumin Human (Kedbumin 25 %) 100 mls @ 100 mls/hr IV Q1H [facility] Stop: 08/11/23 09:59 Last Admin: 08/11/23 08:39 Dose: 100 mls/hr Documented By: GERMAN Lidocaine (Lidocaine 4 % Patch Adh..Patch) 1 patch TRANSDERMA DAILY [facility]; Protocol Last Admin: 08/11/23 08:39 Dose: 1 patch Documented By: GERMAN Metoclopramide HCl (Metoclopramide Hcl 10 Mg/2 Ml Vial) 5 mg IVPUSH Q6H PRN PRN Reason: Nausea and Vomiting Morphine Sulfate (Morphine Sulfate 4 Mg/Ml Cartridge) 4 mg IVPUSH Q4H PRN; Protocol PRN Reason: Pain, Severe (Pain Scale 7-10) Last Admin: 08/09/23 09:21 Dose: 4 mg Documented By: EMEKA Simethicone (Simethicone 80 Mg Tab.Chew) 80 mg PO TID PRN PRN Reason: gas Last Admin: 08/08/23 22:32 Dose: 80 mg Documented By: PEDRO Sodium Biphosphate/Sodium Phosphate (Sodium Phosphate,Weber-Dibasic 133 Ml Enema) 133 ml LA ONCE PRN PRN Reason: Constipation Last Admin: 08/08/23 14:23 Dose: 133 ml Documented By: LIDIA Sodium Chloride (0.9 % Sodium Chloride Flush 3 Ml Syringe) 3 ml IVFLUSH QSHIFT [facility] Last Admin: 08/11/23 07:35 Dose: Not Given Documented By: GERMAN Non-Admin Reason: IV Running Vitamin D (Cholecalciferol (Vitamin D3) 25 Mcg Tablet) 25 mcg PO DAILY [facility] Last Admin: 08/09/23 10:17 Dose: Not Given Documented By: EMEKA Non-Admin Reason: NPO Labs 08/11/23 13:36 08/11/23 13:36 Labs: Laboratory Results - last 24 hr 08/10/23 08/10/23 08/10/23 11:13 13:09 17:29 MCV MCH MCHC RDW Plt Count MPV Immature Gran % (Auto) Neut % (Auto) Lymph % (Auto) Weber % (Auto) Eos % (Auto) Baso % (Auto) Lymph # (Auto) Weber # (Auto) Eos # (Auto) Baso # (Auto) Abs Immat Gran (auto) Absolute Neuts (auto) Absolute Nucleated RBC Nucleated RBC % (auto) Neutrophils % (Manual) Band Neutrophils % Lymphocytes % (Manual) Monocytes % (Manual) Eosinophils % (Manual) Basophils % (Manual) Metamyelocytes % Abs Neuts (Manual) Lymphocytes # (Manual) Monocytes # (Manual) Eosinophils # (Manual) Basophils # (Manual) Metamyelocytes # Nucleated RBCs Toxic Granulation Dohle Bodies Platelet Estimate Large Platelets Giant Platelets Plt Morphology Comment RBC Morphology Polychromasia Smear Tech's Comments Anion Gap Estim Creat Clear Calc Estimated GFR POC Glucose 159 H 152 H Random Glucose Lactic Acid Calcium Phosphorus 2.0 L Magnesium 2.4 Total Bilirubin AST ALT Alkaline Phosphatase Total Protein Albumin 08/10/23 08/10/23 08/11/23 18:16 23:46 04:30 MCV 87.7 88.6 MCH 28.4 29.0 MCHC 32.3 32.7 RDW 14.7 14.9 Plt Count 280 269 MPV 10.6 10.3 Immature Gran % (Auto) Cancelled Cancelled Neut % (Auto) Cancelled Cancelled Lymph % (Auto) Cancelled Cancelled Weber % (Auto) Cancelled Cancelled Eos % (Auto) Cancelled Cancelled Baso % (Auto) Cancelled Cancelled Lymph # (Auto) Cancelled Cancelled Weber # (Auto) Cancelled Cancelled Eos # (Auto) Cancelled Cancelled Baso # (Auto) Cancelled Cancelled Abs Immat Gran (auto) Cancelled Cancelled Absolute Neuts (auto) Cancelled Cancelled Absolute Nucleated RBC 0.000 0.020 H Nucleated RBC % (auto) 0.0 0.2 Neutrophils % (Manual) 47 39 L Band Neutrophils % 18 H 21 H Lymphocytes % (Manual) 20 23 Monocytes % (Manual) 12 H 15 H Eosinophils % (Manual) 1 1 Basophils % (Manual) 1 Metamyelocytes % 1 1 Abs Neuts (Manual) 5.7 5.0 Lymphocytes # (Manual) 1.7 1.9 Monocytes # (Manual) 1.0 1.2 Eosinophils # (Manual) 0.1 0.1 Basophils # (Manual) 0.1 Metamyelocytes # 0.1 0.1 Nucleated RBCs 1 H Toxic Granulation PRESENT Dohle Bodies PRESENT Platelet Estimate NORMAL NORMAL Large Platelets PRESENT Giant Platelets PRESENT Plt Morphology Comment NORMAL NOTED RBC Morphology NORMAL NOTED Polychromasia 1+ (0-2) Smear Tech's Comments Anion Gap 15 16 Estim Creat Clear Calc 144.4 Estimated GFR > 60 POC Glucose 131 H Random Glucose 162 H Lactic Acid 0.9 Calcium 9.0 Phosphorus 1.6 L Magnesium 2.5 Total Bilirubin 0.9 AST 20 ALT 17 Alkaline Phosphatase 37 L Total Protein 6.4 L Albumin 3.4 L 08/11/23 08/11/23 08/11/23 04:30 04:30 04:30 MCV MCH MCHC RDW Plt Count MPV Immature Gran % (Auto) Neut % (Auto) Lymph % (Auto) Weber % (Auto) Eos % (Auto) Baso % (Auto) Lymph # (Auto) Weber # (Auto) Eos # (Auto) Baso # (Auto) Abs Immat Gran (auto) Absolute Neuts (auto) Absolute Nucleated RBC Nucleated RBC % (auto) Neutrophils % (Manual) Band Neutrophils % Lymphocytes % (Manual) Monocytes % (Manual) Eosinophils % (Manual) Basophils % (Manual) Metamyelocytes % Abs Neuts (Manual) Lymphocytes # (Manual) Monocytes # (Manual) Eosinophils # (Manual) Basophils # (Manual) Metamyelocytes # Nucleated RBCs Toxic Granulation Dohle Bodies Platelet Estimate Large Platelets Giant Platelets Plt Morphology Comment RBC Morphology Polychromasia Smear Tech's Comments Anion Gap Cancelled Estim Creat Clear Calc 149.6 Cancelled Estimated GFR > 60 Cancelled POC Glucose Random Glucose 145 H Lactic Acid Calcium Phosphorus Magnesium Total Bilirubin AST ALT Alkaline Phosphatase Total Protein Albumin 08/11/23 08/11/23 08/11/23 04:30 04:30 04:30 MCV MCH MCHC RDW Plt Count MPV Immature Gran % (Auto) Neut % (Auto) Lymph % (Auto) Weber % (Auto) Eos % (Auto) Baso % (Auto) Lymph # (Auto) Weber # (Auto) Eos # (Auto) Baso # (Auto) Abs Immat Gran (auto) Absolute Neuts (auto) Absolute Nucleated RBC Nucleated RBC % (auto) Neutrophils % (Manual) Band Neutrophils % Lymphocytes % (Manual) Monocytes % (Manual) Eosinophils % (Manual) Basophils % (Manual) Metamyelocytes % Abs Neuts (Manual) Lymphocytes # (Manual) Monocytes # (Manual) Eosinophils # (Manual) Basophils # (Manual) Metamyelocytes # Nucleated RBCs Toxic Granulation Dohle Bodies Platelet Estimate Large Platelets Giant Platelets Plt Morphology Comment RBC Morphology Polychromasia Smear Tech's Comments Anion Gap Estim Creat Clear Calc Estimated GFR POC Glucose Random Glucose Cancelled Lactic Acid Calcium 9.2 Cancelled Phosphorus 2.5 L Cancelled Magnesium 2.8 H Total Bilirubin AST ALT Alkaline Phosphatase Total Protein Albumin 08/11/23 08/11/23 08/11/23 04:30 05:41 07:36 MCV 90.6 MCH 28.6 MCHC 31.6 RDW 14.9 Plt Count 270 MPV 10.6 Immature Gran % (Auto) 5.0 H Neut % (Auto) 55.2 Lymph % (Auto) 18.7 L Weber % (Auto) 19.3 H Eos % (Auto) 0.7 Baso % (Auto) 1.1 Lymph # (Auto) 1.6 Weber # (Auto) 1.6 H Eos # (Auto) 0.1 Baso # (Auto) 0.1 Abs Immat Gran (auto) 0.42 H Absolute Neuts (auto) 4.7 Absolute Nucleated RBC 0.020 H Nucleated RBC % (auto) 0.2 Neutrophils % (Manual) Band Neutrophils % Lymphocytes % (Manual) Monocytes % (Manual) Eosinophils % (Manual) Basophils % (Manual) Metamyelocytes % Abs Neuts (Manual) Lymphocytes # (Manual) Monocytes # (Manual) Eosinophils # (Manual) Basophils # (Manual) Metamyelocytes # Nucleated RBCs Toxic Granulation Dohle Bodies Platelet Estimate Large Platelets Giant Platelets Plt Morphology Comment RBC Morphology Polychromasia Smear Tech's Comments VERIFIED Anion Gap Estim Creat Clear Calc Estimated GFR POC Glucose 143 H Random Glucose Lactic Acid Calcium Phosphorus Magnesium Cancelled Total Bilirubin 0.7 AST 28 ALT 18 Alkaline Phosphatase 40 Total Protein 6.7 Albumin 3.4 L Microbiology Microbiology Results: Microbiology 08/09/23 Unknown Gram Stain - Final Peritoneal Fluid Routine Culture - Preliminary No growth to date. Anaerobic Culture - Preliminary No growth to date. 08/08/23 17:22 Blood Culture - Preliminary Blood - Venous No growth after 48 hours. 08/08/23 17:22 Blood Culture - Preliminary Blood - Venous No growth after 48 hours. Procedures Date of Service Date of Service: 08/11/23 Progress Note: A&P Assessment and plan (1) Status post small bowel resection: Status: Acute Assessment and Plan: Seems to be comfortable with good pain control Says he is passing flatus NG tube output Clinically stable Concern for ongoing intra-abdominal process remains Keep NG tube in place TPN Will continue to monitor closely I have been updating his girlfriend and daughter Manasa Time Spent With Patient Time: Total time managing care of this patient today ____ minutes. Quality Stroke Does the patient have a stroke diagnosis?: No VTE Prior VTE?: No VTE Risk Level:: Medical - moderate - high VTE Device Contraindication: Treatment Not Indicated VTE Drug Contraindication: Treatment Not Tolerated
--- NOTE | 2023-08-11 10:29 | MHC.CLN ---
PT TO START TPN TODAY DISCUSSED AT ROUNDS WITH MD REVIEWED LABS DISCUSSED WITH PHARMACY RECOMMEND TPN AT 45ML/HR TO PROVIDE [id number], 162G DEXTROSE, 54G PROTEIN HOLD LIPIDS REPLETE LYTES NEEDED SEE ALSO FULL CLINICAL NUTRITION ASSESSMENT
[2023-08-11 12:11] LABS: Glucose, Whole Blood 140 mg/dL (60-115)
[2023-08-11 13:43] LABS: MANUAL DIFF FLAG NO
[2023-08-11 13:49] LABS: Basophils Percent Auto 0.5 % (0-2); Eosinophils Absolute Auto 0.1 X10*3/uL (0.0-0.4); Eosinophils Percent Auto 0.8 % (0-4); Hematocrit 34.3 % (42.0-52.0); Lymphocytes Absolute Auto 1.9 X10*3/uL (1.2-4.9); Lymphocytes Percent Auto 23.6 % (20-40); Mean Corpuscular HGB Conc 32.1 g/dl (31.0-36.0); Mean Corpuscular Hemoglobin 28.9 pg (27.0-33.0); Mean Platelet Volume 10.2 fL (9.4-12.4); Monocytes Absolute Auto 1.5 X10*3/uL (0.1-1.2); Monocytes Percent Auto 18.7 % (2-11); NRBC Pct Auto 0.3 /100WBC (0.0-0.2); Neutrophils Absolute Auto 4.1 x10*3/uL (2.0-8.3); Neutrophils Percent Auto 51.4 % (45-73); Platelet Count 264 X10*3/uL (160-400); Red Blood Count 3.81 X10*6/uL (4.60-5.80); Red Cell Distribution Width 14.9 % (11.0-16.0)
[2023-08-11 14:11] LABS: Alanine Aminotransferase 16 U/L (0-40); Albumin Level 3.5 g/dL (3.5-5.0); Alkaline Phosphatase 33 U/L (39-117); Anion Gap 9 (12-20); Aspartate Amino Transferase 26 U/L (5-37); Bilirubin Total 0.6 mg/dL (0.0-1.0); Blood Urea Nitrogen 16 mg/dL (9-16); Calcium 8.8 mg/dL (8.4-10.2); Carbon Dioxide 35 mmol/L (22-29); Chloride 112 mmol/L (96-108); Creatinine Clr Calc Pharmacy 187.1; Estimated Glomerular Filt Rate > 60; Glucose Random 138 mg/dL (60-115); Potassium 3.6 mmol/L (3.3-5.1); Sodium 152 mmol/L (135-145); Total Protein 6.4 g/dL (6.5-8.0)
--- NOTE | 2023-08-11 15:06 | PM.EVENT ---
Event Note Date of Service: 08/12/23 Event Note: Seen on afternoon rounds He says he is comfortable Says pain is minimal Passing flatus Abdomen obese seems to be soft Keep NG tube in place Appreciate ICU input and care Girlfriend in room, updated Time Spent With Patient Time: Total time managing care of this patient today ____ minutes.
--- NOTE | 2023-08-11 15:44 | MHC.CM.PN ---
EMR REVIEWED AND PER MD ROUNDS, PT REMAINS AT ICU LEVEL OF CARE. N/G TUBE REMAINS IN PLACE. CM WILL CONTINUE TO FOLLOW FOR ANY CHANGE IN DC PLAN/NEEDS.
[2023-08-11 17:55] LABS: Glucose, Whole Blood 128 mg/dL (60-115)
[2023-08-11 21:10] LABS: Alanine Aminotransferase 18 U/L (0-40); Albumin Level 3.5 g/dL (3.5-5.0); Alkaline Phosphatase 44 U/L (39-117); Anion Gap 14 (12-20); Aspartate Amino Transferase 26 U/L (5-37); Bilirubin Total 0.6 mg/dL (0.0-1.0); Blood Urea Nitrogen 14 mg/dL (9-16); Carbon Dioxide 32 mmol/L (22-29); Chloride 112 mmol/L (96-108); Creatinine Clr Calc Pharmacy 187.1; Estimated Glomerular Filt Rate > 60; Glucose Random 141 mg/dL (60-115); Magnesium 2.7 mg/dL (1.6-2.6); Phosphorus 2.1 mg/dL (2.7-4.5); Potassium 3.5 mmol/L (3.3-5.1); Sodium 154 mmol/L (135-145); Total Protein 6.5 g/dL (6.5-8.0)
[2023-08-11] MEDS: Parenteral Nutrition 1,080 ML 45 ML IV (21:35)
[2023-08-12] VITALS (11 sets, daily range): BP systolic 99–134; BP diastolic 59–75; PULSE 76–99; RESP 16–20; TEMP 36.6–38.4; O2SAT 95–98
[2023-08-12 01:24] LABS: Glucose, Whole Blood 153 mg/dL (60-115)
[2023-08-12] MEDS: Acetaminophen 1,000 MG/100 ML PIGGYBACK 400 MG IV (01:28)
[2023-08-12] MEDS: 0.9 % Sodium Chloride Flush 3 ML SYRINGE IVFLUSH ×3 (01:30→16:12)
[2023-08-12] MEDS: Potassium Phosphate/NS 15 MMOL/250 ML PLAST..BAG 62.5 MMOL IV (02:59)
[2023-08-12] MEDS: Piperacillin Sodium/Tazobactam 3.375 GM in 0.9 % Sodium Chloride 50 ML IV ×4 (03:00→21:04)
[2023-08-12 06:08] LABS: Glucose, Whole Blood 163 mg/dL (60-115)
[2023-08-12 06:22] LABS: Hematocrit 35.7 % (42.0-52.0); Hemoglobin 11.2 g/dl (14.0-18.0); Mean Corpuscular HGB Conc 31.4 g/dl (31.0-36.0); Mean Corpuscular Hemoglobin 28.5 pg (27.0-33.0); Mean Corpuscular Volume 90.8 fL (80.0-98.0); Mean Platelet Volume 10.3 fL (9.4-12.4); NRBC Pct Auto 0.3 /100WBC (0.0-0.2); Platelet Count 310 X10*3/uL (160-400); Red Blood Count 3.93 X10*6/uL (4.60-5.80); Red Cell Distribution Width 15.3 % (11.0-16.0); White Blood Count 8.9 X10*3/uL (4.8-10.8)
[2023-08-12 06:35] LABS: Anion Gap 12 (12-20); Blood Urea Nitrogen 15 mg/dL (9-16); Carbon Dioxide 30 mmol/L (22-29); Chloride 114 mmol/L (96-108); Estimated Glomerular Filt Rate > 60; Glucose Random 176 mg/dL (60-115); Magnesium 2.5 mg/dL (1.6-2.6); Phosphorus 3.5 mg/dL (2.7-4.5); Potassium 3.8 mmol/L (3.3-5.1); Sodium 152 mmol/L (135-145); Triglycerides 88 mg/dL (<150)
[2023-08-12 07:25] LABS: Atypical Lymph Absolute Manual 0.4 x10*3/uL; Atypical Lymphs Percent Manual 4 % (0-6); Band Neutrophils Percent 2 % (3-5); Lymphocytes Absolute Manual 1.9 X10*3/uL (1.2-4.9); Lymphocytes Percent Manual 21 % (20-40); Metamyelocytes Absolute 0.3 X10*3/uL; Metamyelocytes Percent 3 %; Monocytes Absolute Manual 0.7 X10*3/uL (0.1-1.2); Monocytes Percent Manual 8 % (2-11); Myelocytes Absolute 0.2 X10*/uL; Myelocytes Percent 2 %; Neutrophils Absolute Manual 5.5 X10*3/uL (2.0-8.3); Neutrophils Percent Manual 60 % (45-73)
[2023-08-12 07:27] LABS: Hypochromasia 1+ (5-14) /OIF; Large Platelet PRESENT; Platelet Estimate NORMAL (NORMAL); Platelet Morphology Comment NOTED; RBC Morphology NOTED
[2023-08-12 07:29] LABS: Dohle Bodies PRESENT; Toxic Granulation PRESENT
[2023-08-12 08:01] LABS: Glucose, Whole Blood 182 mg/dL (60-115)
--- NOTE | 2023-08-12 08:04 | P.PNGS_ITS ---
Subjective Subjective Date of Service: 08/13/23 Interval history: says he feels well passing flatus denies signficant pain trnasferred up from ICU last night Physical Exam 2 Vital Signs: Vital Signs: Last Vital Signs Temp 98.3 F 08/12/23 07:00 Pulse 99 08/12/23 07:32 Resp 18 08/12/23 07:00 BP 134/73 08/12/23 07:32 Pulse Ox 96 08/12/23 07:00 O2 Del Method Nasal Cannula 08/12/23 07:00 O2 Flow Rate 2 08/12/23 07:00 FiO2 70 08/11/23 13:00 BMI result Body Mass Index 42.3 Const: General: no acute distress Orientation/consciousness: patient oriented x3 Resp: Effort & Inspection: normal respiratory effort Cardio: Rate: regular rate GI: Other: very obese, soft, incision clean and dry Palpation (GI): no guarding Neuro: General: patient oriented x3 Objective Data Active Medications Bisacodyl (Bisacodyl 10 Mg Supp.Rect) 10 mg [place] DAILY PRN PRN Reason: Constipation Enoxaparin Sodium (Enoxaparin Sodium 40 Mg/0.4 Ml Syringe) 40 mg SUBCUT Q24H [facility] Last Admin: 08/11/23 08:39 Dose: 40 mg Documented By: GERMAN Famotidine (Famotidine 20 Mg Tablet) 20 mg PO DAILY [facility] Last Admin: 08/12/23 07:35 Dose: Not Given Documented By: KRISTINA Non-Admin Reason: NPO Piperacillin Sod/Tazobactam (Sod 3.375 gm/ Sodium Chloride) 50 mls @ 100 mls/hr IV Q6H [facility] Last Infusion: 08/12/23 03:54 Dose: Infused Documented By: TRISTA Acetaminophen (Ofirmev) 1,000 mg in 100 mls @ 400 mls/hr IV Q6H PRN PRN Reason: Fever >100.4 Last Infusion: 08/12/23 01:44 Dose: Infused Documented By: ANTMIKE Nutrition (Parenteral) (Parenteral Nutrition) 1,080 mls @ 45 mls/hr IV .Q24H [facility]; Protocol Stop: 08/12/23 20:59 Last Admin: 08/11/23 21:35 Dose: 45 mls/hr Documented By: CHELSEA Lidocaine (Lidocaine 4 % Patch Adh..Patch) 1 patch TRANSDERMA DAILY [facility]; Protocol Last Admin: 08/11/23 08:39 Dose: 1 patch Documented By: GERMAN Metoclopramide HCl (Metoclopramide Hcl 10 Mg/2 Ml Vial) 5 mg IVPUSH Q6H PRN PRN Reason: Nausea and Vomiting Pharmacy Consult (Consult Rx Parenteral Nutrition Ordering) 1 each MISCELLANE DAILY PRN PRN Reason: Consult order Sodium Chloride (0.9 % Sodium Chloride Flush 3 Ml Syringe) 3 ml IVFLUSH QSHIFT [facility] Last Admin: 08/12/23 01:30 Dose: 3 ml Documented By: TRISTA Vitamin D (Cholecalciferol (Vitamin D3) 25 Mcg Tablet) 25 mcg PO DAILY [facility] Last Admin: 08/12/23 07:35 Dose: Not Given Documented By: KRISTINA Non-Admin Reason: NPO Labs 08/13/23 06:35 08/13/23 06:35 Labs: Laboratory Results - last 24 hr 08/11/23 08/11/23 08/11/23 07:36 12:08 13:36 MCV 90.0 MCH 28.9 MCHC 32.1 RDW 14.9 Plt Count 264 MPV 10.2 Immature Gran % (Auto) 5.0 H 5.0 H Neut % (Auto) 55.2 51.4 Lymph % (Auto) 18.7 L 23.6 [place] % (Auto) 19.3 H 18.7 H Eos % (Auto) 0.7 0.8 Baso % (Auto) 1.1 0.5 Lymph # (Auto) 1.6 1.9 [place] # (Auto) 1.6 H 1.5 H Eos # (Auto) 0.1 0.1 Baso # (Auto) 0.1 0.0 Abs Immat Gran (auto) 0.42 H 0.40 H Absolute Neuts (auto) 4.7 4.1 Absolute Nucleated RBC 0.020 H 0.020 H Nucleated RBC % (auto) 0.2 0.3 H Neutrophils % (Manual) Band Neutrophils % Lymphocytes % (Manual) Atypical Lymphs % (Man) Monocytes % (Manual) Metamyelocytes % Myelocytes % Abs Neuts (Manual) Lymphocytes # (Manual) Atyp Lymphs # (Manual) Monocytes # (Manual) Metamyelocytes # Myelocytes # Toxic Granulation Dohle Bodies Platelet Estimate Large Platelets Plt Morphology Comment RBC Morphology Hypochromasia Smear Tech's Comments VERIFIED Anion Gap 9 L Estim Creat Clear Calc 187.1 Estimated GFR > 60 POC Glucose 140 H Random Glucose 138 H Calcium 8.8 Phosphorus Magnesium Total Bilirubin 0.6 AST 26 ALT 16 Alkaline Phosphatase 33 L Total Protein 6.4 L Albumin 3.5 Triglycerides 08/11/23 08/11/23 08/12/23 17:52 20:42 01:19 MCV MCH MCHC RDW Plt Count MPV Immature Gran % (Auto) Neut % (Auto) Lymph % (Auto) [place] % (Auto) Eos % (Auto) Baso % (Auto) Lymph # (Auto) [place] # (Auto) Eos # (Auto) Baso # (Auto) Abs Immat Gran (auto) Absolute Neuts (auto) Absolute Nucleated RBC Nucleated RBC % (auto) Neutrophils % (Manual) Band Neutrophils % Lymphocytes % (Manual) Atypical Lymphs % (Man) Monocytes % (Manual) Metamyelocytes % Myelocytes % Abs Neuts (Manual) Lymphocytes # (Manual) Atyp Lymphs # (Manual) Monocytes # (Manual) Metamyelocytes # Myelocytes # Toxic Granulation Dohle Bodies Platelet Estimate Large Platelets Plt Morphology Comment RBC Morphology Hypochromasia Smear Tech's Comments Anion Gap 14 Estim Creat Clear Calc 187.1 Estimated GFR > 60 POC Glucose 128 H 153 H Random Glucose 141 H Calcium 9.0 Phosphorus 2.1 L Magnesium 2.7 H Total Bilirubin 0.6 AST 26 ALT 18 Alkaline Phosphatase 44 Total Protein 6.5 Albumin 3.5 Triglycerides 08/12/23 08/12/23 08/12/23 06:02 06:03 07:54 MCV 90.8 MCH 28.5 MCHC 31.4 RDW 15.3 Plt Count 310 MPV 10.3 Immature Gran % (Auto) Cancelled Neut % (Auto) Cancelled Lymph % (Auto) Cancelled [place] % (Auto) Cancelled Eos % (Auto) Cancelled Baso % (Auto) Cancelled Lymph # (Auto) Cancelled [place] # (Auto) Cancelled Eos # (Auto) Cancelled Baso # (Auto) Cancelled Abs Immat Gran (auto) Cancelled Absolute Neuts (auto) Cancelled Absolute Nucleated RBC 0.030 H Nucleated RBC % (auto) 0.3 H Neutrophils % (Manual) 60 Band Neutrophils % 2 L Lymphocytes % (Manual) 21 Atypical Lymphs % (Man) 4 Monocytes % (Manual) 8 Metamyelocytes % 3 Myelocytes % 2 Abs Neuts (Manual) 5.5 Lymphocytes # (Manual) 1.9 Atyp Lymphs # (Manual) 0.4 Monocytes # (Manual) 0.7 Metamyelocytes # 0.3 Myelocytes # 0.2 Toxic Granulation PRESENT Dohle Bodies PRESENT Platelet Estimate NORMAL Large Platelets PRESENT Plt Morphology Comment NOTED RBC Morphology NOTED Hypochromasia 1+ (5-14) Smear Tech's Comments Anion Gap 12 Estim Creat Clear Calc 171.0 Estimated GFR > 60 POC Glucose 163 H 182 H Random Glucose 176 H Calcium 9.0 Phosphorus 3.5 Magnesium 2.5 Total Bilirubin AST ALT Alkaline Phosphatase Total Protein Albumin Triglycerides 88 Microbiology Microbiology Results: Microbiology 08/09/23 Unknown Gram Stain - Final Peritoneal Fluid Routine Culture - Preliminary No growth to date. Anaerobic Culture - Preliminary No growth to date. Procedures Date of Service Date of Service: 08/13/23 Progress Note: A&P Assessment and plan (1) Status post small bowel resection: Status: Acute Assessment and Plan: clinically looks well denies significant pain, asking about diet advancement pt always stoic Na markedly elevated - will dw Hopsitalist on TPN keep NGT in place pt bedbound family updated Time Spent With Patient Time: Total time managing care of this patient today ____ minutes. Quality Stroke Does the patient have a stroke diagnosis?: No VTE Prior VTE?: No VTE Risk Level:: Medical - moderate - high VTE Device Contraindication: Treatment Not Indicated VTE Drug Contraindication: Treatment Not Tolerated
--- NOTE | 2023-08-12 08:54 | P.CDIM_ITS ---
PROVIDER RESPONSE TEXT: To clarify, the appropriate diagnosis supported by the clinical indicators: Sepsis due to Peritonitis QUERY TEXT: PHYSICIAN'S DOCUMENTATION REQUEST Date of Query: 08/11/2023 07:41 AM EDT Patient Name: Mathieu Anand Admit Date: 08/07/2023 Dear Francisco Brasher, A review of the medical record indicates additional documentation may be needed. Please review below and update the documentation accordingly. Clinical Indicators: Per MD Event Note 08/08/23: Patient also noted to have elevated WBC count, tachycardia question sepsis related to intra-abdomina l infection Follow lactic acid, blood cultures x2 Started on IV ceftriaxone and IV Flagyl Per Operative Note 08/09/23: Preop diagnosis: Pneumoperitoneum, pneumatosis of the small bowel Postop diagnosis: Long ischemic segment of the small bowel, with multiple areas of perforation, diffu se edema and distention of the small bowel including proximal and distal to the resected segment Procedure: Laparotomy, extensive lysis of adhesions, small-bowel resection of 140 cm segment Immediately, murky peritoneal fluid was noted We could see spillage of some enteric contents finding this involved segment Please clarify which, if any, of the following is the most likely etiology of the above symptoms and treatment rendered: Sepsis due to Peritonitis Sepsis due to other condition, please specify condition Other (explain) Clinically unable to determine (explain) Thank you, Yanira Ibrahim RN Use of terms such as suspected, likely, concern for, or probable (associated with a specific diagnosi s that is being evaluated, monitored, or treated as if it exists) are acceptable and can be coded in the inpatient se tting, when documented at the time of discharge. Please use your independent medical judgment in providing your response. THIS QUERY IS PART OF THE PERMANENT MEDICAL RECORD
--- NOTE | 2023-08-12 10:18 | HO.PM.IMPN ---
Subjective Subjective Date of Service: 08/12/23 Interval History: passing gas Review of Systems Review of Systems: Yes all other systems are reviewed and are negative Physical Exam Vital Signs: Vital Signs: Last Vital Signs Temp 98.3 F 08/12/23 07:00 Pulse 99 08/12/23 07:32 Resp 18 08/12/23 07:00 BP 134/73 08/12/23 07:32 Pulse Ox 96 08/12/23 07:00 O2 Del Method Nasal Cannula 08/12/23 07:00 O2 Flow Rate 2 08/12/23 07:00 FiO2 70 08/11/23 13:00 BMI result Body Mass Index 42.3 Const: General: no acute distress Orientation/consciousness: patient oriented x3 Resp: Effort & Inspection: normal respiratory effort Cardio: Rate: regular rate GI: Other: very obese, soft, incision clean and dry Palpation (GI): no guarding Neuro: General: patient oriented x3 Objective Data Active Medications Bisacodyl (Bisacodyl 10 Mg Supp.Rect) 10 mg ND DAILY PRN PRN Reason: Constipation Enoxaparin Sodium (Enoxaparin Sodium 40 Mg/0.4 Ml Syringe) 40 mg SUBCUT Q24H [facility] Last Admin: 08/11/23 08:39 Dose: 40 mg Documented By: GERMAN Famotidine (Famotidine 20 Mg Tablet) 20 mg PO DAILY [facility] Last Admin: 08/12/23 07:35 Dose: Not Given Documented By: KRISTINA Non-Admin Reason: NPO Piperacillin Sod/Tazobactam (Sod 3.375 gm/ Sodium Chloride) 50 mls @ 100 mls/hr IV Q6H [facility] Last Infusion: 08/12/23 03:54 Dose: Infused Documented By: TRISTA Acetaminophen (Ofirmev) 1,000 mg in 100 mls @ 400 mls/hr IV Q6H PRN PRN Reason: Fever >100.4 Last Infusion: 08/12/23 01:44 Dose: Infused Documented By: ANTMIKE Nutrition (Parenteral) (Parenteral Nutrition) 1,080 mls @ 45 mls/hr IV .Q24H [facility]; Protocol Stop: 08/12/23 20:59 Last Admin: 08/11/23 21:35 Dose: 45 mls/hr Documented By: CHELSEA Lidocaine (Lidocaine 4 % Patch Adh..Patch) 1 patch TRANSDERMA DAILY [facility]; Protocol Last Admin: 08/11/23 08:39 Dose: 1 patch Documented By: GERMAN Metoclopramide HCl (Metoclopramide Hcl 10 Mg/2 Ml Vial) 5 mg IVPUSH Q6H PRN PRN Reason: Nausea and Vomiting Pharmacy Consult (Consult Rx Parenteral Nutrition Ordering) 1 each MISCELLANE DAILY PRN PRN Reason: Consult order Sodium Chloride (0.9 % Sodium Chloride Flush 3 Ml Syringe) 3 ml IVFLUSH QSHIFT [facility] Last Admin: 08/12/23 01:30 Dose: 3 ml Documented By: TRISTA Vitamin D (Cholecalciferol (Vitamin D3) 25 Mcg Tablet) 25 mcg PO DAILY [facility] Last Admin: 08/12/23 07:35 Dose: Not Given Documented By: KRISTINA Non-Admin Reason: NPO Labs 08/12/23 06:02 08/12/23 06:02 Labs: Laboratory Results - last 24 hr 08/11/23 08/11/23 08/11/23 12:08 13:36 17:52 MCV 90.0 MCH 28.9 MCHC 32.1 RDW 14.9 Plt Count 264 MPV 10.2 Immature Gran % (Auto) 5.0 H Neut % (Auto) 51.4 Lymph % (Auto) 23.6 [place] % (Auto) 18.7 H Eos % (Auto) 0.8 Baso % (Auto) 0.5 Lymph # (Auto) 1.9 [place] # (Auto) 1.5 H Eos # (Auto) 0.1 Baso # (Auto) 0.0 Abs Immat Gran (auto) 0.40 H Absolute Neuts (auto) 4.1 Absolute Nucleated RBC 0.020 H Nucleated RBC % (auto) 0.3 H Neutrophils % (Manual) Band Neutrophils % Lymphocytes % (Manual) Atypical Lymphs % (Man) Monocytes % (Manual) Metamyelocytes % Myelocytes % Abs Neuts (Manual) Lymphocytes # (Manual) Atyp Lymphs # (Manual) Monocytes # (Manual) Metamyelocytes # Myelocytes # Toxic Granulation Dohle Bodies Platelet Estimate Large Platelets Plt Morphology Comment RBC Morphology Hypochromasia Anion Gap 9 L Estim Creat Clear Calc 187.1 Estimated GFR > 60 POC Glucose 140 H 128 H Random Glucose 138 H Calcium 8.8 Phosphorus Magnesium Total Bilirubin 0.6 AST 26 ALT 16 Alkaline Phosphatase 33 L Total Protein 6.4 L Albumin 3.5 Triglycerides 08/11/23 08/12/23 08/12/23 20:42 01:19 06:02 MCV 90.8 MCH 28.5 MCHC 31.4 RDW 15.3 Plt Count 310 MPV 10.3 Immature Gran % (Auto) Cancelled Neut % (Auto) Cancelled Lymph % (Auto) Cancelled [place] % (Auto) Cancelled Eos % (Auto) Cancelled Baso % (Auto) Cancelled Lymph # (Auto) Cancelled [place] # (Auto) Cancelled Eos # (Auto) Cancelled Baso # (Auto) Cancelled Abs Immat Gran (auto) Cancelled Absolute Neuts (auto) Cancelled Absolute Nucleated RBC 0.030 H Nucleated RBC % (auto) 0.3 H Neutrophils % (Manual) 60 Band Neutrophils % 2 L Lymphocytes % (Manual) 21 Atypical Lymphs % (Man) 4 Monocytes % (Manual) 8 Metamyelocytes % 3 Myelocytes % 2 Abs Neuts (Manual) 5.5 Lymphocytes # (Manual) 1.9 Atyp Lymphs # (Manual) 0.4 Monocytes # (Manual) 0.7 Metamyelocytes # 0.3 Myelocytes # 0.2 Toxic Granulation PRESENT Dohle Bodies PRESENT Platelet Estimate NORMAL Large Platelets PRESENT Plt Morphology Comment NOTED RBC Morphology NOTED Hypochromasia 1+ (5-14) Anion Gap 14 12 Estim Creat Clear Calc 187.1 171.0 Estimated GFR > 60 > 60 POC Glucose 153 H Random Glucose 141 H 176 H Calcium 9.0 9.0 Phosphorus 2.1 L 3.5 Magnesium 2.7 H 2.5 Total Bilirubin 0.6 AST 26 ALT 18 Alkaline Phosphatase 44 Total Protein 6.5 Albumin 3.5 Triglycerides 88 08/12/23 08/12/23 06:03 07:54 MCV MCH MCHC RDW Plt Count MPV Immature Gran % (Auto) Neut % (Auto) Lymph % (Auto) [place] % (Auto) Eos % (Auto) Baso % (Auto) Lymph # (Auto) [place] # (Auto) Eos # (Auto) Baso # (Auto) Abs Immat Gran (auto) Absolute Neuts (auto) Absolute Nucleated RBC Nucleated RBC % (auto) Neutrophils % (Manual) Band Neutrophils % Lymphocytes % (Manual) Atypical Lymphs % (Man) Monocytes % (Manual) Metamyelocytes % Myelocytes % Abs Neuts (Manual) Lymphocytes # (Manual) Atyp Lymphs # (Manual) Monocytes # (Manual) Metamyelocytes # Myelocytes # Toxic Granulation Dohle Bodies Platelet Estimate Large Platelets Plt Morphology Comment RBC Morphology Hypochromasia Anion Gap Estim Creat Clear Calc Estimated GFR POC Glucose 163 H 182 H Random Glucose Calcium Phosphorus Magnesium Total Bilirubin AST ALT Alkaline Phosphatase Total Protein Albumin Triglycerides Microbiology Microbiology Results: Microbiology 08/09/23 Unknown Gram Stain - Final Peritoneal Fluid Routine Culture - Final No growth after 2 days Anaerobic Culture - Preliminary No growth to date. 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
[2023-08-12] MEDS: Enoxaparin Sodium 40 MG/0.4 ML SYRINGE SUBCUT (10:22)
[2023-08-12] MEDS: Lidocaine 4 % Patch ADH..PATCH 1 PATCH TRANSDERMA (10:23)
[2023-08-12] MEDS: Dextrose 5 % 1,000 ML 125 ML IVCONT ×2 (10:27→21:04)
[2023-08-12 11:01] LABS: Glucose, Whole Blood 171 mg/dL (60-115)
--- NOTE | 2023-08-12 11:24 | MHC.CLN ---
F/U REMAINS NPO WITH NGT TO SUCTION PT RECEIVED TPN AT 45ML/HR PROVIDED 767KCALS, 162G DEXTROSE, 54G PROTEIN REVIEWED LABS DISCUSSED WITH PHARMACY RECOMMEND INCREASING TPN TO 65ML/HR TO PROVIDE 1108KCALS (1278KCALS WITH D5W IVF), 78G PROTEIN (1.0G/KG), 234G DEXTROSE HOLD LIPIDS REPLETE LYTES NEEDED
--- NOTE | 2023-08-12 13:15 | HO.WOUND ---
Wound Consult: Specialty bed follow up 53yr old?M admitted to [facility] [place] on [place]23 - See progress notes and H&P for detailed history.? Wound consult placed for Coccyx and Left Leg wound POA.? Todays follow up was for Agility Pulsate Bed - Bed in use set to 6 bars patient weight was listed as 347lbs appropriate bar placement would be 4-5. Settings adjusted to reflect 4 bars - side bed blosters in place and in appropriate placement. Patient reports bed comfort. Wound were last assessed 08/10/23 no assessment today continue with topical orders in place.
[2023-08-12 15:52] LABS: Glucose, Whole Blood 139 mg/dL (60-115)
--- NOTE | 2023-08-12 15:54 | PM.EVENT ---
Event Note Date of Service: 08/16/23 Event Note: Seen on afternoon rounds He says he continues to feel well Passing flatus Says pain continues to improve Abdomen soft Incision clean Continue NG tube On TPN Appreciate hospitalist evyamila Follow-up labs tomorrow due to hypernatremia at bedside Time Spent With Patient Time: Total time managing care of this patient today ____ minutes.
[2023-08-12] MEDS: Parenteral Nutrition 1,560 ML 65 ML IV (21:13)
[2023-08-12 23:34] LABS: Glucose, Whole Blood 192 mg/dL (60-115)
[2023-08-13] MEDS: Piperacillin Sodium/Tazobactam 3.375 GM in 0.9 % Sodium Chloride 50 ML IV ×4 (02:35→20:31)
[2023-08-13 03:45] VITALS: BP 131/79; PULSE 87; RESP 18; TEMP 37.2; O2SAT 98
[2023-08-13] MEDS: Dextrose 5 % 1,000 ML 125 ML IVCONT ×3 (05:35→21:47)
[2023-08-13 06:11] LABS: Glucose, Whole Blood 191 mg/dL (60-115)
[2023-08-13 06:46] LABS: Basophils Percent Auto 0.4 % (0-2); Eosinophils Absolute Auto 0.1 X10*3/uL (0.0-0.4); Eosinophils Percent Auto 1.2 % (0-4); Hematocrit 34.5 % (42.0-52.0); Hemoglobin 10.9 g/dl (14.0-18.0); Imm Gran Abs Auto 0.23 X10*3/uL (0.00-0.03); Imm Gran Pct Auto 2.3 % (0.0-0.4); Lymphocytes Absolute Auto 2.1 X10*3/uL (1.2-4.9); Lymphocytes Percent Auto 20.7 % (20-40); MANUAL DIFF FLAG SCAN; Mean Corpuscular HGB Conc 31.6 g/dl (31.0-36.0); Mean Corpuscular Hemoglobin 28.8 pg (27.0-33.0); Mean Platelet Volume 10.2 fL (9.4-12.4); Monocytes Absolute Auto 1.4 X10*3/uL (0.1-1.2); Monocytes Percent Auto 14.1 % (2-11); Neutrophils Absolute Auto 6.1 x10*3/uL (2.0-8.3); Neutrophils Percent Auto 61.3 % (45-73); Platelet Count 338 X10*3/uL (160-400); Red Blood Count 3.79 X10*6/uL (4.60-5.80); Red Cell Distribution Width 15.3 % (11.0-16.0); SCAN SMEAR FLAG 1
[2023-08-13 06:54] LABS: Triglycerides 80 mg/dL (<150)
[2023-08-13 07:03] LABS: Anion Gap 11 (12-20); Blood Urea Nitrogen 13 mg/dL (9-16); Calcium 9.2 mg/dL (8.4-10.2); Carbon Dioxide 30 mmol/L (22-29); Chloride 108 mmol/L (96-108); Estimated Glomerular Filt Rate > 60; Glucose Fasting 239 mg/dL (60-99); Glucose Random 235 mg/dL (60-115); Magnesium 1.8 mg/dL (1.6-2.6); Phosphorus 3.2 mg/dL (2.7-4.5); Potassium 3.3 mmol/L (3.3-5.1); Sodium 146 mmol/L (135-145)
[2023-08-13 07:52] VITALS: BP 132/70; PULSE 81; RESP 22; TEMP 36.8; O2SAT 99
[2023-08-13 07:56] LABS: SLIDE REVIEW VERIFIED
[2023-08-13 08:02] LABS: Glucose, Whole Blood 221 mg/dL (60-115)
[2023-08-13 08:11] LABS: Estimated Average Glucose 123 mg/dL; Hemoglobin A1c % 5.9 % (<6.0)
--- NOTE | 2023-08-13 08:46 | PM.PNGS ---
Subjective Subjective Date of Service: 08/13/23 <Lashay Alcaraz PA-C - Last Filed: 08/13/23 08:50> 08/13/23 <Francisco Brasher MD - Last Filed: 08/13/23 14:52> Interval history: Denies nausea, vomiting. Passing continuous flatus and has had multiple very large BM. <Lashay Alcaraz PA-C - Last Filed: 08/13/23 08:50> Physical Exam Vital Signs: Vital Signs: Last Vital Signs Temp 98.2 F 08/13/23 07:52 Pulse 81 08/13/23 07:52 Resp 22 H 08/13/23 07:52 BP 132/70 08/13/23 07:52 Pulse Ox 99 08/13/23 07:52 O2 Del Method Nasal Cannula 08/13/23 07:52 O2 Flow Rate 2 08/13/23 07:52 FiO2 70 08/11/23 13:00 BMI result Body Mass Index 42.3 <Lashay Alcaraz PA-C - Last Filed: 08/13/23 08:50> Const: General: comfortable, no acute distress and alert <Lashay Alcaraz PA-C - Last Filed: 08/13/23 08:50> HEENT: Other: NGT in place, some bilious output <Lashay Alcaraz PA-C - Last Filed: 08/13/23 08:50> Resp: Effort & Inspection: normal respiratory effort <Lashay Alcaraz PA-C - Last Filed: 08/13/23 08:50> GI: Inspection: Yes incision (clean) <Lashay Alcaraz PA-C - Last Filed: 08/13/23 08:50> Palpation (GI): Soft to palpation, nontender, no guarding and not rigid <BRUCE Smith Last Filed: 08/13/23 08:50> Percussion: Yes normal to percussion <BRUCE Smith Last Filed: 08/13/23 08:50> Skin: General skin exam: no rashes or lesions noted <BRUCE Smith Last Filed: 08/13/23 08:50> Objective Data Active Medications Bisacodyl (Bisacodyl 10 Mg Supp.Rect) 10 mg [place] DAILY PRN PRN Reason: Constipation Dextrose (Dextrose 50 % 25 Gm/50 Ml Syringe) 25 gm IVPUSH Q15M PRN; Protocol PRN Reason: per Hypoglycemia Standing Ord. Enoxaparin Sodium (Enoxaparin Sodium 40 Mg/0.4 Ml Syringe) 40 mg SUBCUT Q24H [facility] Last Admin: 08/12/23 10:22 Dose: 40 mg Documented By: KRISTINA Famotidine (Famotidine 20 Mg Tablet) 20 mg PO DAILY [facility] Last Admin: 08/13/23 08:34 Dose: Not Given Documented By: TEJA Non-Admin Reason: NPO Glucose (Glucose Gel 15 Gm Gel..Gram.) 15 gm PO Q15M PRN; Protocol PRN Reason: per Hypoglycemia Standing Ord. Piperacillin Sod/Tazobactam (Sod 3.375 gm/ Sodium Chloride) 50 mls @ 100 mls/hr IV Q6H [facility] Last Infusion: 08/13/23 03:29 Dose: Infused Documented By: RUTH Acetaminophen (irmev) 1,000 mg in 100 mls @ 400 mls/hr IV Q6H PRN PRN Reason: Fever >100.4 Last Infusion: 08/12/23 01:44 Dose: Infused Documented By: ANTOIC Dextrose (D5w) 1,000 mls @ 125 mls/hr IVCONT .Q8H [facility] Last Admin: 08/13/23 05:35 Dose: 125 mls/hr Documented By: RUTH Nutrition (Parenteral) (Parenteral Nutrition) 1,560 mls @ 65 mls/hr IV .Q24H [facility]; Protocol Stop: 08/13/23 20:59 Last Admin: 08/12/23 21:13 Dose: 65 mls/hr Documented By: RUTH Insulin Human Lispro (Insulin Lispro 100 Unit/Ml 3 Ml Vial) 0 unit SUBCUT QIDACHS [facility]; Protocol Lidocaine (Lidocaine 4 % Patch Adh..Patch) 1 patch TRANSDERMA DAILY [facility]; Protocol Last Admin: 08/12/23 10:23 Dose: 1 patch Documented By: KIRSTINA Metoclopramide HCl (Metoclopramide Hcl 10 Mg/2 Ml Vial) 5 mg IVPUSH Q6H PRN PRN Reason: Nausea and Vomiting Pharmacy Consult (Consult Rx Parenteral Nutrition Ordering) 1 each MISCELLANE DAILY PRN PRN Reason: Consult order Sodium Chloride (0.9 % Sodium Chloride Flush 3 Ml Syringe) 3 ml IVFLUSH QSHIFT [facility] Last Admin: 08/13/23 08:00 Dose: Not Given Documented By: TEJA Non-Admin Reason: See Note Vitamin D (Cholecalciferol (Vitamin D3) 25 Mcg Tablet) 25 mcg PO DAILY [facility] Last Admin: 08/13/23 08:34 Dose: Not Given Documented By: TEJA Non-Admin Reason: NPO <Lashay Alcaraz PA-C - Last Filed: 08/13/23 08:50> Labs CBC & Chem 7: 08/13/23 06:35 08/13/23 06:35 <Lashay Alcaraz PA-C - Last Filed: 08/13/23 08:50> Labs: Laboratory Results - last 24 hr 08/12/23 08/12/23 08/12/23 10:57 15:48 23:30 MCV MCH MCHC RDW Plt Count MPV Immature Gran % (Auto) Neut % (Auto) Lymph % (Auto) [place] % (Auto) Eos % (Auto) Baso % (Auto) Lymph # (Auto) [place] # (Auto) Eos # (Auto) Baso # (Auto) Abs Immat Gran (auto) Absolute Neuts (auto) Absolute Nucleated RBC Nucleated RBC % (auto) Smear Tech's Comments Anion Gap Estim Creat Clear Calc Estimated GFR POC Glucose 171 H 139 H 192 H Random Glucose Fasting Glucose Estimat Average Glucose Hemoglobin A1c % Calcium Phosphorus Magnesium Triglycerides 08/13/23 08/13/23 08/13/23 06:06 06:35 07:58 MCV 91.0 MCH 28.8 MCHC 31.6 RDW 15.3 Plt Count 338 MPV 10.2 Immature Gran % (Auto) 2.3 H Neut % (Auto) 61.3 Lymph % (Auto) 20.7 [place] % (Auto) 14.1 H Eos % (Auto) 1.2 Baso % (Auto) 0.4 Lymph # (Auto) 2.1 [place] # (Auto) 1.4 H Eos # (Auto) 0.1 Baso # (Auto) 0.0 Abs Immat Gran (auto) 0.23 H Absolute Neuts (auto) 6.1 Absolute Nucleated RBC 0.000 Nucleated RBC % (auto) 0.0 Smear Tech's Comments VERIFIED Anion Gap 11 L Estim Creat Clear Calc 161.0 Estimated GFR > 60 POC Glucose 191 H 221 H Random Glucose 235 H Fasting Glucose 239 H Estimat Average Glucose 123 Hemoglobin A1c % 5.9 Calcium 9.2 Phosphorus 3.2 Magnesium 1.8 Triglycerides 80 <Lashay lAcaraz PA-C - Last Filed: 08/13/23 08:50> Microbiology Microbiology Results: Microbiology 08/09/23 Unknown Gram Stain - Final Peritoneal Fluid Routine Culture - Final No growth after 2 days Anaerobic Culture - Preliminary No growth to date. <Lashay Alcaraz PA-C - Last Filed: 08/13/23 08:50> Procedures Date of Service Date of Service: 08/13/23 <Lashay Alcaraz PA-C - Last Filed: 08/13/23 08:50> 08/13/23 <Francisco Brasher MD - Last Filed: 08/13/23 14:52> Progress Note: A&P Assessment and plan (1) Status post small bowel resection: Status: Acute <Lashay Alcaraz PA-C - Last Filed: 08/13/23 08:50> Assessment and Plan: He states he continues to feel better Continue the past good amounts of flatus Denies significant pain NG tube output has been low Plan to clamp NG tube in re-evaluate to remove this in the afternoon Seen and examined independently <Francisco Brasher MD - Last Filed: 08/13/23 14:52> (2) Ischemic bowel disease: Status: Acute <Lashay Alcaraz PA-C - Last Filed: 08/13/23 08:50> Assessment and Plan: NGT clamped this morning. Will reassess in 4 hours, check residual. Unclamp sooner if develops nausea/vomiting, worsening abd pain, distention. Cont TPN. Discussed with patient. <BRUCE Smith Last Filed: 08/13/23 08:50> Time Spent With Patient Time: Total time managing care of this patient today ____ minutes. <Lashay Alcaraz PA-C - Last Filed: 08/13/23 08:50> Quality Stroke Does the patient have a stroke diagnosis?: No <Lashay Alcaraz PA-C - Last Filed: 08/13/23 08:50> VTE Prior VTE?: No <Lashay Alcaraz PA-C - Last Filed: 08/13/23 08:50> VTE Risk Level:: Medical - moderate - high <Lashay Alcaraz PA-C - Last Filed: 08/13/23 08:50> VTE Device Contraindication: Treatment Not Indicated <Lashay Alcaraz PA-C - Last Filed: 08/13/23 08:50> VTE Drug Contraindication: Treatment Not Tolerated <Lashay Alcaraz PA-C - Last Filed: 08/13/23 08:50>
[2023-08-13] MEDS: Enoxaparin Sodium 40 MG/0.4 ML SYRINGE SUBCUT (08:52)
[2023-08-13] MEDS: Insulin Lispro 100 UNIT/ML 3 ML VIAL SUBCUT ×4 (08:52→20:30)
[2023-08-13] MEDS: Lidocaine 4 % Patch ADH..PATCH 1 PATCH TRANSDERMA (08:53)
--- NOTE | 2023-08-13 09:22 | P.PNIM_ITS ---
Subjective Subjective Date of Service: 08/13/23 Interval History: large bm Physical Exam 2 Vital Signs: Vital Signs: Last Vital Signs Temp 98.2 F 08/13/23 07:52 Pulse 81 08/13/23 07:52 Resp 22 H 08/13/23 07:52 BP 132/70 08/13/23 07:52 Pulse Ox 99 08/13/23 07:52 O2 Del Method Nasal Cannula 08/13/23 07:52 O2 Flow Rate 2 08/13/23 07:52 FiO2 70 08/11/23 13:00 BMI result Body Mass Index 42.3 Const: General: comfortable, no acute distress and alert HEENT: Other: NGT in place, some bilious output Resp: Effort & Inspection: normal respiratory effort GI: Inspection: Yes incision (clean) Palpation (GI): Soft to palpation, nontender, no guarding and not rigid Percussion: Yes normal to percussion Skin: General skin exam: no rashes or lesions noted Objective Data Active Medications Bisacodyl (Bisacodyl 10 Mg Supp.Rect) 10 mg [place] DAILY PRN PRN Reason: Constipation Dextrose (Dextrose 50 % 25 Gm/50 Ml Syringe) 25 gm IVPUSH Q15M PRN; Protocol PRN Reason: per Hypoglycemia Standing Ord. Enoxaparin Sodium (Enoxaparin Sodium 40 Mg/0.4 Ml Syringe) 40 mg SUBCUT Q24H [facility] Last Admin: 08/13/23 08:52 Dose: 40 mg Documented By: TEJA Famotidine (Famotidine 20 Mg Tablet) 20 mg PO DAILY [facility] Last Admin: 08/13/23 08:34 Dose: Not Given Documented By: TEJA Non-Admin Reason: NPO Glucose (Glucose Gel 15 Gm Gel..Gram.) 15 gm PO Q15M PRN; Protocol PRN Reason: per Hypoglycemia Standing Ord. Piperacillin Sod/Tazobactam (Sod 3.375 gm/ Sodium Chloride) 50 mls @ 100 mls/hr IV Q6H [facility] Last Admin: 08/13/23 08:52 Dose: 100 mls/hr Documented By: TEJA Acetaminophen (Ofirmev) 1,000 mg in 100 mls @ 400 mls/hr IV Q6H PRN PRN Reason: Fever >100.4 Last Infusion: 08/12/23 01:44 Dose: Infused Documented By: ANTOIC Dextrose (D5w) 1,000 mls @ 125 mls/hr IVCONT .Q8H [facility] Last Admin: 08/13/23 05:35 Dose: 125 mls/hr Documented By: RUTH Nutrition (Parenteral) (Parenteral Nutrition) 1,560 mls @ 65 mls/hr IV .Q24H [facility]; Protocol Stop: 08/13/23 20:59 Last Admin: 08/12/23 21:13 Dose: 65 mls/hr Documented By: RUTH Insulin Human Lispro (Insulin Lispro 100 Unit/Ml 3 Ml Vial) 0 unit SUBCUT QIDACHS [facility]; Protocol Last Admin: 08/13/23 08:52 Dose: 4 unit Documented By: TEJA Lidocaine (Lidocaine 4 % Patch Adh..Patch) 1 patch TRANSDERMA DAILY [facility]; Protocol Last Admin: 08/13/23 08:53 Dose: 1 patch Documented By: TEJA Metoclopramide HCl (Metoclopramide Hcl 10 Mg/2 Ml Vial) 5 mg IVPUSH Q6H PRN PRN Reason: Nausea and Vomiting Pharmacy Consult (Consult Rx Parenteral Nutrition Ordering) 1 each MISCELLANE DAILY PRN PRN Reason: Consult order Sodium Chloride (0.9 % Sodium Chloride Flush 3 Ml Syringe) 3 ml IVFLUSH QSHIFT [facility] Last Admin: 08/13/23 08:00 Dose: Not Given Documented By: TEJA Non-Admin Reason: See Note Vitamin D (Cholecalciferol (Vitamin D3) 25 Mcg Tablet) 25 mcg PO DAILY [facility] Last Admin: 08/13/23 08:34 Dose: Not Given Documented By: TEJA Non-Admin Reason: NPO Labs 08/13/23 06:35 08/13/23 06:35 Labs: Laboratory Results - last 24 hr 08/12/23 08/12/23 08/12/23 10:57 15:48 23:30 MCV MCH MCHC RDW Plt Count MPV Immature Gran % (Auto) Neut % (Auto) Lymph % (Auto) [place] % (Auto) Eos % (Auto) Baso % (Auto) Lymph # (Auto) [place] # (Auto) Eos # (Auto) Baso # (Auto) Abs Immat Gran (auto) Absolute Neuts (auto) Absolute Nucleated RBC Nucleated RBC % (auto) Smear Tech's Comments Anion Gap Estim Creat Clear Calc Estimated GFR POC Glucose 171 H 139 H 192 H Random Glucose Fasting Glucose Estimat Average Glucose Hemoglobin A1c % Calcium Phosphorus Magnesium Triglycerides 08/13/23 08/13/23 08/13/23 06:06 06:35 07:58 MCV 91.0 MCH 28.8 MCHC 31.6 RDW 15.3 Plt Count 338 MPV 10.2 Immature Gran % (Auto) 2.3 H Neut % (Auto) 61.3 Lymph % (Auto) 20.7 [place] % (Auto) 14.1 H Eos % (Auto) 1.2 Baso % (Auto) 0.4 Lymph # (Auto) 2.1 [place] # (Auto) 1.4 H Eos # (Auto) 0.1 Baso # (Auto) 0.0 Abs Immat Gran (auto) 0.23 H Absolute Neuts (auto) 6.1 Absolute Nucleated RBC 0.000 Nucleated RBC % (auto) 0.0 Smear Tech's Comments VERIFIED Anion Gap 11 L Estim Creat Clear Calc 161.0 Estimated GFR > 60 POC Glucose 191 H 221 H Random Glucose 235 H Fasting Glucose 239 H Estimat Average Glucose 123 Hemoglobin A1c % 5.9 Calcium 9.2 Phosphorus 3.2 Magnesium 1.8 Triglycerides 80 Microbiology Microbiology Results: Microbiology 08/09/23 Unknown Gram Stain - Final Peritoneal Fluid Routine Culture - Final No growth after 2 days Anaerobic Culture - Preliminary No growth to date. 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
--- NOTE | 2023-08-13 10:44 | MHC.CLN ---
F/U CONTINUES NPO WITH NGT TO SUCTION LARGE BM NOTED PER MD PT RECEIVED TPN AT 65ML/HR PROVIDED 1108KCALS (1278KCALS WITH D5W IVF), 78G PROTEIN (1.0G/KG), 234G DEXTROSE REVIEWED LABS DISCUSSED WITH PHARMACY RECOMMEND INCREASING TPN TO 85ML/HR WITH 86G LIPIDS TO PROVIDE 2308TOTAL KCALS (30KCALS/KG), 102G PROTEIN (1.3G/KG), 306G DEXTROSE TPN WILL PROMOTE WOUND HEALING REPLETE LYTES NEEDED CONTINUE TPN AT GOAL RATE NOTED ABOVE WITH LIPIDS THROUGH [address] CAN BE REACHED VIA [employer] DURING OFF HOURS IF NEEDED
[2023-08-13 11:16] LABS: Glucose, Whole Blood 181 mg/dL (60-115)
[2023-08-13 11:23] VITALS: BP 117/66; PULSE 82; RESP 22; TEMP 36.9; O2SAT 97
--- NOTE | 2023-08-13 11:24 | MHC.CM.PN ---
Per MD rounds no dc today. Patient is not medically cleared. He continues with Nasogastric tube. DP to home with new [facility] when medically cleared.
--- NOTE | 2023-08-13 15:19 | PM.EVENT ---
Event Note Date of Service: 08/13/23 Event Note: Very minimal output from NG tube He continues to pass good amounts of flatus and feels comfortable so G-tube was removed this afternoon He says he remains comfortable and states he feels ?well? Passing flatus Abdomen soft Keep NPO for now but may have small sips of clears Family updated Patient is bed-bound and unable to get out of bed as baseline Time Spent With Patient Time: Total time managing care of this patient today ____ minutes.
[2023-08-13 15:23] VITALS: BP 125/69; PULSE 90; RESP 22; TEMP 36.6; O2SAT 96
[2023-08-13 16:23] LABS: Glucose, Whole Blood 183 mg/dL (60-115)
[2023-08-13 19:26] VITALS: BP 149/88; PULSE 83; RESP 18; TEMP 36.9; O2SAT 100
[2023-08-13 20:09] LABS: Glucose, Whole Blood 158 mg/dL (60-115)
[2023-08-13] MEDS: Parenteral Nutrition 2,040 ML 85 ML IV (20:25)
[2023-08-13] MEDS: 0.9 % Sodium Chloride Flush 3 ML SYRINGE IVFLUSH (21:55)
[2023-08-13 23:28] VITALS: BP 126/71; PULSE 85; RESP 18; TEMP 37; O2SAT 99
[2023-08-14] MEDS: Piperacillin Sodium/Tazobactam 3.375 GM in 0.9 % Sodium Chloride 50 ML IV ×4 (03:52→21:28)
[2023-08-14 04:00] VITALS: BP 122/71; PULSE 86; RESP 18; TEMP 36.9; O2SAT 97
[2023-08-14] MEDS: Dextrose 5 % 1,000 ML 125 ML IVCONT (06:16)
[2023-08-14 07:06] LABS: Basophils Percent Auto 0.3 % (0-2); Eosinophils Absolute Auto 0.1 X10*3/uL (0.0-0.4); Eosinophils Percent Auto 0.7 % (0-4); Hematocrit 34.1 % (42.0-52.0); Hemoglobin 11.2 g/dl (14.0-18.0); Imm Gran Abs Auto 0.23 X10*3/uL (0.00-0.03); Lymphocytes Percent Auto 16.8 % (20-40); MANUAL DIFF FLAG SCAN; Mean Corpuscular HGB Conc 32.8 g/dl (31.0-36.0); Mean Corpuscular Hemoglobin 29.4 pg (27.0-33.0); Mean Corpuscular Volume 89.5 fL (80.0-98.0); Mean Platelet Volume 10.5 fL (9.4-12.4); Monocytes Percent Auto 8.5 % (2-11); Neutrophils Absolute Auto 8.4 x10*3/uL (2.0-8.3); Neutrophils Percent Auto 71.7 % (45-73); Platelet Count 353 X10*3/uL (160-400); Red Blood Count 3.81 X10*6/uL (4.60-5.80); Red Cell Distribution Width 14.7 % (11.0-16.0); SCAN SMEAR FLAG 1
[2023-08-14 07:18] LABS: White Blood Count 11.8 X10*3/uL (4.8-10.8)
[2023-08-14 07:20] LABS: Anion Gap 14 (12-20); Blood Urea Nitrogen 11 mg/dL (9-16); Calcium 8.6 mg/dL (8.4-10.2); Carbon Dioxide 26 mmol/L (22-29); Chloride 102 mmol/L (96-108); Creatinine Clr Calc Pharmacy 200.7; Estimated Glomerular Filt Rate > 60; Glucose Fasting 226 mg/dL (60-99); Magnesium 1.5 mg/dL (1.6-2.6); Phosphorus 3.2 mg/dL (2.7-4.5); Sodium 139 mmol/L (135-145); Triglycerides 119 mg/dL (<150)
[2023-08-14 07:24] LABS: Glucose, Whole Blood 213 mg/dL (60-115)
[2023-08-14 07:53] LABS: SLIDE REVIEW VERIFIED
[2023-08-14 07:57] VITALS: BP 104/64; PULSE 83; RESP 20; TEMP 36.3; O2SAT 97
[2023-08-14] MEDS: Insulin Lispro 100 UNIT/ML 3 ML VIAL SUBCUT ×3 (08:12→22:28)
[2023-08-14] MEDS: Enoxaparin Sodium 40 MG/0.4 ML SYRINGE SUBCUT (08:14)
[2023-08-14] MEDS: 0.9 % Sodium Chloride Flush 3 ML SYRINGE IVFLUSH ×2 (08:14→16:19)
[2023-08-14] MEDS: Famotidine 20 MG TABLET PO (08:15)
[2023-08-14] MEDS: Cholecalciferol (Vitamin D3) 25 MCG TABLET PO (08:15)
[2023-08-14] MEDS: Lidocaine 4 % Patch ADH..PATCH 1 PATCH TRANSDERMA (08:27)
--- NOTE | 2023-08-14 10:10 | P.PNIM_ITS ---
Subjective Subjective Date of Service: 08/14/23 Interval History: having bm, feeling better overall Physical Exam 2 Vital Signs: Vital Signs: Last Vital Signs Temp 97.3 F 08/14/23 07:57 Pulse 83 08/14/23 07:57 Resp 20 08/14/23 07:57 BP 104/64 08/14/23 07:57 Pulse Ox 97 08/14/23 07:57 O2 Del Method Nasal Cannula 08/14/23 07:57 O2 Flow Rate 2 08/14/23 07:57 FiO2 70 08/11/23 13:00 BMI result Body Mass Index 42.3 Const: General: comfortable, no acute distress and alert Resp: Effort & Inspection: normal respiratory effort GI: Inspection: Yes incision (clean) Palpation (GI): Soft to palpation, nontender, no guarding and not rigid Percussion: Yes normal to percussion Skin: General skin exam: no rashes or lesions noted Objective Data Active Medications Bisacodyl (Bisacodyl 10 Mg Supp.Rect) 10 mg [place] DAILY PRN PRN Reason: Constipation Dextrose (Dextrose 50 % 25 Gm/50 Ml Syringe) 25 gm IVPUSH Q15M PRN; Protocol PRN Reason: per Hypoglycemia Standing Ord. Enoxaparin Sodium (Enoxaparin Sodium 40 Mg/0.4 Ml Syringe) 40 mg SUBCUT Q24H [facility] Last Admin: 08/14/23 08:14 Dose: 40 mg Documented By: ALINAMORP Famotidine (Famotidine 20 Mg Tablet) 20 mg PO DAILY [facility] Last Admin: 08/14/23 08:15 Dose: 20 mg Documented By: ALINAMORP Glucose (Glucose Gel 15 Gm Gel..Gram.) 15 gm PO Q15M PRN; Protocol PRN Reason: per Hypoglycemia Standing Ord. Piperacillin Sod/Tazobactam (Sod 3.375 gm/ Sodium Chloride) 50 mls @ 100 mls/hr IV Q6H [facility] Last Admin: 08/14/23 08:15 Dose: 100 mls/hr Documented By: ALINAMORP Nutrition (Parenteral) (Parenteral Nutrition) 2,040 mls @ 85 mls/hr IV .Q24H [facility]; Protocol Stop: 08/14/23 20:59 Last Admin: 08/13/23 20:25 Dose: 85 mls/hr Documented By: RANDY Insulin Human Lispro (Insulin Lispro 100 Unit/Ml 3 Ml Vial) 0 unit SUBCUT QIDACHS [facility]; Protocol Last Admin: 08/14/23 08:12 Dose: 4 unit Documented By: LYLE Lidocaine (Lidocaine 4 % Patch Adh..Patch) 1 patch TRANSDERMA DAILY [facility]; Protocol Last Admin: 08/14/23 08:27 Dose: 1 patch Documented By: ALINAMOKENDALL Metoclopramide HCl (Metoclopramide Hcl 10 Mg/2 Ml Vial) 5 mg IVPUSH Q6H PRN PRN Reason: Nausea and Vomiting Pharmacy Consult (Consult Rx Parenteral Nutrition Ordering) 1 each MISCELLANE DAILY PRN PRN Reason: Consult order Sodium Chloride (0.9 % Sodium Chloride Flush 3 Ml Syringe) 3 ml IVFLUSH QSHIFT [facility] Last Admin: 08/14/23 08:14 Dose: 3 ml Documented By: ALINAMOKENDALL Vitamin D (Cholecalciferol (Vitamin D3) 25 Mcg Tablet) 25 mcg PO DAILY [facility] Last Admin: 08/14/23 08:15 Dose: 25 mcg Documented By: LYLE Labs 08/14/23 06:26 08/14/23 06:26 Labs: Laboratory Results - last 24 hr 08/13/23 08/13/23 08/13/23 11:12 16:10 20:04 MCV MCH MCHC RDW Plt Count MPV Immature Gran % (Auto) Neut % (Auto) Lymph % (Auto) [place] % (Auto) Eos % (Auto) Baso % (Auto) Lymph # (Auto) [place] # (Auto) Eos # (Auto) Baso # (Auto) Abs Immat Gran (auto) Absolute Neuts (auto) Absolute Nucleated RBC Nucleated RBC % (auto) Smear Tech's Comments Anion Gap Estim Creat Clear Calc Estimated GFR POC Glucose 181 H 183 H 158 H Fasting Glucose Calcium Phosphorus Magnesium Triglycerides 08/14/23 08/14/23 06:26 07:19 MCV 89.5 MCH 29.4 MCHC 32.8 RDW 14.7 Plt Count 353 MPV 10.5 Immature Gran % (Auto) 2.0 H Neut % (Auto) 71.7 Lymph % (Auto) 16.[address] [place] % (Auto) 8.5 Eos % (Auto) 0.7 Baso % (Auto) 0.3 Lymph # (Auto) 2.0 [place] # (Auto) 1.0 Eos # (Auto) 0.1 Baso # (Auto) 0.0 Abs Immat Gran (auto) 0.23 H Absolute Neuts (auto) 8.4 H Absolute Nucleated RBC 0.000 Nucleated RBC % (auto) 0.0 Smear Tech's Comments VERIFIED Anion Gap 14 Estim Creat Clear Calc 200.7 Estimated GFR > 60 POC Glucose 213 H Fasting Glucose 226 H Calcium 8.6 D Phosphorus 3.2 Magnesium 1.5 L Triglycerides 119 Microbiology Microbiology Results: Microbiology 08/08/23 17:22 Blood Culture - Final Blood - Venous No growth after 5 days. 08/08/23 17:22 Blood Culture - Final Blood - Venous No growth after 5 days. 08/09/23 Unknown Gram Stain - Final Peritoneal Fluid Routine Culture - Final No growth after 2 days Anaerobic Culture - Preliminary No growth to date. 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
[2023-08-14 11:51] LABS: Glucose, Whole Blood 186 mg/dL (60-115)
[2023-08-14 12:00] VITALS: BP 117/67; PULSE 83; RESP 20; TEMP 37; O2SAT 99
[2023-08-14 15:26] LABS: Glucose, Whole Blood 118 mg/dL (60-115)
--- NOTE | 2023-08-14 15:31 | P.PNGS_ITS ---
Subjective Subjective Date of Service: 08/14/23 Interval history: Patient was evaluated with significant other present. He is tolerating his diet. He is passing some flatus and stool. Minimal incisional discomfort. Physical Exam 2 Vital Signs: Vital Signs: Last Vital Signs Temp 98.6 F 08/14/23 12:00 Pulse 83 08/14/23 12:00 Resp 20 08/14/23 12:00 BP 117/67 08/14/23 12:00 Pulse Ox 99 08/14/23 12:00 O2 Del Method Nasal Cannula 08/14/23 12:00 O2 Flow Rate 2 08/14/23 12:00 FiO2 70 08/11/23 13:00 BMI result Body Mass Index 42.3 GI: Other: Massively corpulent abdomen. Wound clean dry and intact healing uneventfully Objective Data Active Medications Bisacodyl (Bisacodyl 10 Mg Supp.Rect) 10 mg [place] DAILY PRN PRN Reason: Constipation Dextrose (Dextrose 50 % 25 Gm/50 Ml Syringe) 25 gm IVPUSH Q15M PRN; Protocol PRN Reason: per Hypoglycemia Standing Ord. Enoxaparin Sodium (Enoxaparin Sodium 40 Mg/0.4 Ml Syringe) 40 mg SUBCUT Q24H [facility] Last Admin: 08/14/23 08:14 Dose: 40 mg Documented By: PODMORP Famotidine (Famotidine 20 Mg Tablet) 20 mg PO DAILY [facility] Last Admin: 08/14/23 08:15 Dose: 20 mg Documented By: PODMORP Glucose (Glucose Gel 15 Gm Gel..Gram.) 15 gm PO Q15M PRN; Protocol PRN Reason: per Hypoglycemia Standing Ord. Piperacillin Sod/Tazobactam (Sod 3.375 gm/ Sodium Chloride) 50 mls @ 100 mls/hr IV Q6H [facility] Last Infusion: 08/14/23 08:45 Dose: Infused Documented By: PODMORP Nutrition (Parenteral) (Parenteral Nutrition) 2,040 mls @ 85 mls/hr IV .Q24H [facility]; Protocol Stop: 08/14/23 20:59 Last Admin: 08/13/23 20:25 Dose: 85 mls/hr Documented By: THOMPSM Nutrition (Parenteral) (Parenteral Nutrition) 2,040 mls @ 85 mls/hr IV .Q24H [facility]; Protocol Stop: 08/15/23 20:59 Insulin Human Lispro (Insulin Lispro 100 Unit/Ml 3 Ml Vial) 0 unit SUBCUT QIDACHS [facility]; Protocol Last Admin: 08/14/23 12:44 Dose: 2 unit Documented By: ALINAMORP Lidocaine (Lidocaine 4 % Patch Adh..Patch) 1 patch TRANSDERMA DAILY [facility]; Protocol Last Admin: 08/14/23 08:27 Dose: 1 patch Documented By: ALINAMORP Metoclopramide HCl (Metoclopramide Hcl 10 Mg/2 Ml Vial) 5 mg IVPUSH Q6H PRN PRN Reason: Nausea and Vomiting Pharmacy Consult (Consult Rx Parenteral Nutrition Ordering) 1 each MISCELLANE DAILY PRN PRN Reason: Consult order Sodium Chloride (0.9 % Sodium Chloride Flush 3 Ml Syringe) 3 ml IVFLUSH QSHIFT [facility] Last Admin: 08/14/23 08:14 Dose: 3 ml Documented By: ALINAMOKENDALL Vitamin D (Cholecalciferol (Vitamin D3) 25 Mcg Tablet) 25 mcg PO DAILY [facility] Last Admin: 08/14/23 08:15 Dose: 25 mcg Documented By: LYLE Labs 08/14/23 06:26 08/14/23 06:26 Labs: Laboratory Results - last 24 hr 08/13/23 08/13/23 08/14/23 16:10 20:04 06:26 MCV 89.5 MCH 29.4 MCHC 32.8 RDW 14.7 Plt Count 353 MPV 10.5 Immature Gran % (Auto) 2.0 H Neut % (Auto) 71.7 Lymph % (Auto) 16.8 L [place] % (Auto) 8.5 Eos % (Auto) 0.7 Baso % (Auto) 0.3 Lymph # (Auto) 2.0 [place] # (Auto) 1.0 Eos # (Auto) 0.1 Baso # (Auto) 0.0 Abs Immat Gran (auto) 0.23 H Absolute Neuts (auto) 8.4 H Absolute Nucleated RBC 0.000 Nucleated RBC % (auto) 0.0 Smear Tech's Comments VERIFIED Anion Gap 14 Estim Creat Clear Calc 200.7 Estimated GFR > 60 POC Glucose 183 H 158 H Fasting Glucose 226 H Calcium 8.6 D Phosphorus 3.2 Magnesium 1.5 L Triglycerides 119 08/14/23 08/14/23 08/14/23 07:19 11:46 15:23 MCV MCH MCHC RDW Plt Count MPV Immature Gran % (Auto) Neut % (Auto) Lymph % (Auto) [place] % (Auto) Eos % (Auto) Baso % (Auto) Lymph # (Auto) [place] # (Auto) Eos # (Auto) Baso # (Auto) Abs Immat Gran (auto) Absolute Neuts (auto) Absolute Nucleated RBC Nucleated RBC % (auto) Smear Tech's Comments Anion Gap Estim Creat Clear Calc Estimated GFR POC Glucose 213 H 186 H 118 H Fasting Glucose Calcium Phosphorus Magnesium Triglycerides Microbiology Microbiology Results: Microbiology 08/09/23 Unknown Gram Stain - Final Peritoneal Fluid Routine Culture - Final No growth after 2 days Anaerobic Culture - Preliminary No growth to date. 08/08/23 17:22 Blood Culture - Final Blood - Venous No growth after 5 days. 08/08/23 17:22 Blood Culture - Final Blood - Venous No growth after 5 days. Procedures Date of Service Date of Service: 08/14/23 Progress Note: A&P Assessment and plan (1) Status post small bowel resection: Status: Acute (2) Ischemic bowel disease: Status: Acute Plan Advanced diet as tolerated, encourage incentive spirometry. I suggested the patient get up out of bed but he said he is pretty much bed ridden at [place]. All questions answered Time Spent With Patient Time: Total time managing care of this patient today ____ minutes. Quality Stroke Does the patient have a stroke diagnosis?: No VTE Prior VTE?: No VTE Risk Level:: Medical - moderate - high VTE Device Contraindication: Treatment Not Indicated VTE Drug Contraindication: Treatment Not Tolerated
[2023-08-14 16:00] VITALS: BP 126/71; PULSE 85; RESP 20; TEMP 36.8; O2SAT 99
[2023-08-14 20:00] VITALS: BP 125/76; PULSE 93; RESP 18; TEMP 37; O2SAT 97
[2023-08-14 20:59] LABS: Glucose, Whole Blood 186 mg/dL (60-115)
[2023-08-14] MEDS: Parenteral Nutrition 2,040 ML 85 ML IV (21:28)
[2023-08-14] MEDS: Metoclopramide HCl 10 MG/2 ML VIAL 5 MG IVPUSH (21:29)
[2023-08-14] MEDS: Calcium Carbonate 750 MG TAB.CHEW PO (22:28)
[2023-08-14 23:29] VITALS: BP 126/77; PULSE 98; RESP 18; TEMP 36.6; O2SAT 98
[2023-08-15] VITALS (7 sets, daily range): BP systolic 104–121; BP diastolic 56–69; PULSE 83–99; RESP 18–20; TEMP 36.3–37.5; O2SAT 94–98
[2023-08-15] MEDS: Piperacillin Sodium/Tazobactam 3.375 GM in 0.9 % Sodium Chloride 50 ML IV ×4 (03:45→22:01)
[2023-08-15] MEDS: 0.9 % Sodium Chloride Flush 3 ML SYRINGE IVFLUSH ×4 (03:48→22:01)
[2023-08-15] MEDS: Pantoprazole Sodium 40 MG/10 ML VIAL IVPUSH (04:24)
[2023-08-15] MEDS: Metoclopramide HCl 10 MG/2 ML VIAL 5 MG IVPUSH (06:07)
[2023-08-15 06:47] LABS: MANUAL DIFF FLAG NO
[2023-08-15 07:07] LABS: Anion Gap 14 (12-20); Blood Urea Nitrogen 13 mg/dL (9-16); Calcium 8.9 mg/dL (8.4-10.2); Carbon Dioxide 25 mmol/L (22-29); Chloride 99 mmol/L (96-108); Creatinine Clr Calc Pharmacy 192.3; Estimated Glomerular Filt Rate > 60; Glucose Fasting 228 mg/dL (60-99); Potassium 3.2 mmol/L (3.3-5.1); Sodium 135 mmol/L (135-145); Triglycerides 139 mg/dL (<150)
[2023-08-15 07:21] LABS: Basophils Percent Auto 0.2 % (0-2); Eosinophils Percent Auto 0.2 % (0-4); Hemoglobin 11.9 g/dl (14.0-18.0); Imm Gran Pct Auto 1.6 % (0.0-0.4); Lymphocytes Absolute Auto 1.5 X10*3/uL (1.2-4.9); Lymphocytes Percent Auto 11.8 % (20-40); Mean Corpuscular HGB Conc 33.1 g/dl (31.0-36.0); Mean Corpuscular Volume 87.6 fL (80.0-98.0); Mean Platelet Volume 10.6 fL (9.4-12.4); Monocytes Absolute Auto 1.1 X10*3/uL (0.1-1.2); Monocytes Percent Auto 8.5 % (2-11); Neutrophils Absolute Auto 9.8 x10*3/uL (2.0-8.3); Neutrophils Percent Auto 77.7 % (45-73); Platelet Count 399 X10*3/uL (160-400); Red Blood Count 4.11 X10*6/uL (4.60-5.80); Red Cell Distribution Width 14.4 % (11.0-16.0); White Blood Count 12.6 X10*3/uL (4.8-10.8)
[2023-08-15 07:32] LABS: Magnesium 1.6 mg/dL (1.6-2.6); Phosphorus 2.8 mg/dL (2.7-4.5)
[2023-08-15 07:38] LABS: Glucose, Whole Blood 232 mg/dL (60-115)
--- NOTE | 2023-08-15 08:24 | PC.NURSE ---
08/14/23-08/15/23 [id number] Nursing note. Pt continues to experience prolong hiccups with indigestion and nausea. Dr. Rowell notifed during the night as reglan, Tums, and Protonix were given as documented in the MAR. Pt reports only temporary relief from them and the indigestion. Pt repositioned several times attempting to keep Patient elevated in order to promote comfort. Pt also having serosanguineous drainage from his lower abdominal incision. Left lower abdomen slightly firmer than the left. Sterile dressing applied over lower incision and Dr. Rowell notified of findings. [address] Greenberg and assessed pt, aware of drainage from lower abdomen and hiccups and course of treatment to be provided by providers. Dayshift rn assuming care of patient updated on conversation with Dr. Greenberg and Dr. Holley and that their course of treatment orders to be determined by them
[2023-08-15] MEDS: Potassium Chloride ER 20 MEQ TAB.ER.PRT 40 MEQ PO (09:02)
[2023-08-15] MEDS: Insulin Lispro 100 UNIT/ML 3 ML VIAL SUBCUT (09:02)
[2023-08-15] MEDS: Cholecalciferol (Vitamin D3) 25 MCG TABLET PO (09:02)
[2023-08-15] MEDS: Famotidine 20 MG TABLET PO (09:03)
[2023-08-15] MEDS: Enoxaparin Sodium 40 MG/0.4 ML SYRINGE SUBCUT (09:03)
[2023-08-15] MEDS: Lidocaine 4 % Patch ADH..PATCH 1 PATCH TRANSDERMA (09:04)
--- NOTE | 2023-08-15 09:33 | PM.PNGS ---
Subjective Subjective Date of Service: 08/15/23 Interval history: Patient and nurse note patient had some drainage from his incision. Also complaining of reflux symptoms. Otherwise still tolerating his liquids. Does not want to start solid diet yet. Physical Exam Vital Signs: Vital Signs: Last Vital Signs Temp 97.3 F 08/15/23 07:13 Pulse 83 08/15/23 07:13 Resp 18 08/15/23 07:13 BP 112/63 08/15/23 07:13 Pulse Ox 97 08/15/23 07:13 O2 Del Method Oxymask 08/15/23 07:13 O2 Flow Rate 2 08/15/23 07:13 FiO2 70 08/11/23 13:00 BMI result Body Mass Index 42.3 GI: Other: Massively corpulent abdomen incision clean dry and intact. Dressings and inferior aspect of incision so serous drainage. New dressing applied. Objective Data Active Medications Bisacodyl (Bisacodyl 10 Mg Supp.Rect) 10 mg [place] DAILY PRN PRN Reason: Constipation Calcium Carbonate (Calcium Carbonate 750 Mg Tab.Chew) 750 mg PO Q6H PRN PRN Reason: Heartburn Last Admin: 08/14/23 22:28 Dose: 750 mg Documented By: RANDY Comments: given for c/o heartburn Dextrose (Dextrose 50 % 25 Gm/50 Ml Syringe) 25 gm IVPUSH Q15M PRN; Protocol PRN Reason: per Hypoglycemia Standing Ord. Enoxaparin Sodium (Enoxaparin Sodium 40 Mg/0.4 Ml Syringe) 40 mg SUBCUT Q24H [facility] Last Admin: 08/15/23 09:03 Dose: 40 mg Documented By: ISAC Famotidine (Famotidine 20 Mg Tablet) 20 mg PO DAILY [facility] Last Admin: 08/15/23 09:03 Dose: 20 mg Documented By: ISAC Glucose (Glucose Gel 15 Gm Gel..Gram.) 15 gm PO Q15M PRN; Protocol PRN Reason: per Hypoglycemia Standing Ord. Piperacillin Sod/Tazobactam (Sod 3.375 gm/ Sodium Chloride) 50 mls @ 100 mls/hr IV Q6H [facility] Last Admin: 08/15/23 09:02 Dose: 100 mls/hr Documented By: ISAC Insulin Human Lispro (Insulin Lispro 100 Unit/Ml 3 Ml Vial) 0 unit SUBCUT QIDACHS [facility]; Protocol Last Admin: 08/15/23 09:02 Dose: 4 unit Documented By: ISAC Lidocaine (Lidocaine 4 % Patch Adh..Patch) 1 patch TRANSDERMA DAILY [facility]; Protocol Last Admin: 08/15/23 09:04 Dose: 1 patch Documented By: ISAC Metoclopramide HCl (Metoclopramide Hcl 10 Mg/2 Ml Vial) 5 mg IVPUSH Q6H PRN PRN Reason: Nausea and Vomiting Last Admin: 08/15/23 06:07 Dose: 5 mg Documented By: RANDY Comments: Pt reports feeling nauseated. Sodium Chloride (0.9 % Sodium Chloride Flush 3 Ml Syringe) 3 ml IVFLUSH QSHIFT [facility] Last Admin: 08/15/23 09:03 Dose: 3 ml Documented By: ISAC Vitamin D (Cholecalciferol (Vitamin D3) 25 Mcg Tablet) 25 mcg PO DAILY [facility] Last Admin: 08/15/23 09:02 Dose: 25 mcg Documented By: ISAC Labs 08/15/23 06:26 08/15/23 06:26 Labs: Laboratory Results - last 24 hr 08/14/23 08/14/23 08/14/23 11:46 15:23 20:54 MCV MCH MCHC RDW Plt Count MPV Immature Gran % (Auto) Neut % (Auto) Lymph % (Auto) [place] % (Auto) Eos % (Auto) Baso % (Auto) Lymph # (Auto) [place] # (Auto) Eos # (Auto) Baso # (Auto) Abs Immat Gran (auto) Absolute Neuts (auto) Absolute Nucleated RBC Nucleated RBC % (auto) Anion Gap Estim Creat Clear Calc Estimated GFR POC Glucose 186 H 118 H 186 H Random Glucose Fasting Glucose Calcium Phosphorus Magnesium Albumin Triglycerides 08/15/23 08/15/23 08/15/23 06:26 06:26 06:26 MCV 87.6 Cancelled MCH 29.0 Cancelled MCHC 33.1 RDW Plt Count MPV Immature Gran % (Auto) Neut % (Auto) Lymph % (Auto) [place] % (Auto) Eos % (Auto) Baso % (Auto) Lymph # (Auto) [place] # (Auto) Eos # (Auto) Baso # (Auto) Abs Immat Gran (auto) Absolute Neuts (auto) Absolute Nucleated RBC Nucleated RBC % (auto) Anion Gap Estim Creat Clear Calc Estimated GFR POC Glucose Random Glucose Fasting Glucose Calcium Phosphorus Magnesium Albumin Triglycerides 08/15/23 08/15/23 08/15/23 06:26 06:26 06:26 MCV MCH MCHC Cancelled RDW 14.4 Cancelled Plt Count 399 Cancelled MPV 10.6 Immature Gran % (Auto) Neut % (Auto) Lymph % (Auto) [place] % (Auto) Eos % (Auto) Baso % (Auto) Lymph # (Auto) [place] # (Auto) Eos # (Auto) Baso # (Auto) Abs Immat Gran (auto) Absolute Neuts (auto) Absolute Nucleated RBC Nucleated RBC % (auto) Anion Gap Estim Creat Clear Calc Estimated GFR POC Glucose Random Glucose Fasting Glucose Calcium Phosphorus Magnesium Albumin Triglycerides 08/15/23 08/15/23 08/15/23 06:26 06:26 06:26 MCV MCH MCHC RDW Plt Count MPV Cancelled Immature Gran % (Auto) 1.6 H Neut % (Auto) 77.7 H Lymph % (Auto) 11.8 L [place] % (Auto) 8.5 Eos % (Auto) 0.2 Baso % (Auto) 0.2 Lymph # (Auto) 1.5 [place] # (Auto) 1.1 Eos # (Auto) 0.0 Baso # (Auto) 0.0 Abs Immat Gran (auto) 0.20 H Absolute Neuts (auto) 9.8 H Absolute Nucleated RBC 0.000 Cancelled Nucleated RBC % (auto) 0.0 Cancelled Anion Gap Cancelled Estim Creat Clear Calc Estimated GFR POC Glucose Random Glucose Fasting Glucose Calcium Phosphorus Magnesium Albumin Triglycerides 08/15/23 08/15/23 08/15/23 06:26 06:26 06:26 MCV MCH MCHC RDW Plt Count MPV Immature Gran % (Auto) Neut % (Auto) Lymph % (Auto) [place] % (Auto) Eos % (Auto) Baso % (Auto) Lymph # (Auto) [place] # (Auto) Eos # (Auto) Baso # (Auto) Abs Immat Gran (auto) Absolute Neuts (auto) Absolute Nucleated RBC Nucleated RBC % (auto) Anion Gap 14 Estim Creat Clear Calc Cancelled 192.3 Estimated GFR Cancelled > 60 POC Glucose Random Glucose Cancelled Fasting Glucose 228 H Calcium Cancelled Phosphorus Magnesium Albumin Triglycerides 08/15/23 08/15/23 08/15/23 06:26 06:26 06:26 MCV MCH MCHC RDW Plt Count MPV Immature Gran % (Auto) Neut % (Auto) Lymph % (Auto) [place] % (Auto) Eos % (Auto) Baso % (Auto) Lymph # (Auto) [place] # (Auto) Eos # (Auto) Baso # (Auto) Abs Immat Gran (auto) Absolute Neuts (auto) Absolute Nucleated RBC Nucleated RBC % (auto) Anion Gap Estim Creat Clear Calc Estimated GFR POC Glucose Random Glucose Fasting Glucose Calcium 8.9 Phosphorus Cancelled 2.8 Magnesium Cancelled 1.6 Albumin Cancelled Triglycerides 08/15/23 08/15/23 06:26 07:33 MCV MCH MCHC RDW Plt Count MPV Immature Gran % (Auto) Neut % (Auto) Lymph % (Auto) [place] % (Auto) Eos % (Auto) Baso % (Auto) Lymph # (Auto) [place] # (Auto) Eos # (Auto) Baso # (Auto) Abs Immat Gran (auto) Absolute Neuts (auto) Absolute Nucleated RBC Nucleated RBC % (auto) Anion Gap Estim Creat Clear Calc Estimated GFR POC Glucose 232 H Random Glucose Fasting Glucose Calcium Phosphorus Magnesium Albumin 3.0 L Triglycerides 139 Microbiology Microbiology Results: Microbiology 08/09/23 Unknown Gram Stain - Final Peritoneal Fluid Routine Culture - Final No growth after 2 days Anaerobic Culture - Preliminary No growth to date. Procedures Date of Service Date of Service: 08/15/23 Progress Note: A&P Assessment and plan (1) Status post small bowel resection: Status: Acute Plan Continue current plan; consider abdominal wall binder, incentive spirometry, liquid diet as tolerated. Time Spent With Patient Time: Total time managing care of this patient today ____ minutes. Quality Stroke Does the patient have a stroke diagnosis?: No VTE Prior VTE?: No VTE Risk Level:: Medical - moderate - high VTE Device Contraindication: Treatment Not Indicated VTE Drug Contraindication: Treatment Not Tolerated
--- NOTE | 2023-08-15 10:34 | P.PNIM_ITS ---
Subjective Subjective Date of Service: 08/15/23 Interval History: having bm, feeling better overall Physical Exam 2 Vital Signs: Vital Signs: Last Vital Signs Temp 97.3 F 08/15/23 07:13 Pulse 83 08/15/23 07:13 Resp 18 08/15/23 07:13 BP 112/63 08/15/23 07:13 Pulse Ox 97 08/15/23 07:13 O2 Del Method Oxymask 08/15/23 07:13 O2 Flow Rate 2 08/15/23 07:13 FiO2 70 08/11/23 13:00 BMI result Body Mass Index 42.3 GI: Other: Massively corpulent abdomen incision clean dry and intact. Dressings and inferior aspect of incision so serous drainage. New dressing applied. Objective Data Active Medications Bisacodyl (Bisacodyl 10 Mg Supp.Rect) 10 mg [place] DAILY PRN PRN Reason: Constipation Calcium Carbonate (Calcium Carbonate 750 Mg Tab.Chew) 750 mg PO Q6H PRN PRN Reason: Heartburn Last Admin: 08/14/23 22:28 Dose: 750 mg Documented By: RANDY Comments: given for c/o heartburn Dextrose (Dextrose 50 % 25 Gm/50 Ml Syringe) 25 gm IVPUSH Q15M PRN; Protocol PRN Reason: per Hypoglycemia Standing Ord. Enoxaparin Sodium (Enoxaparin Sodium 40 Mg/0.4 Ml Syringe) 40 mg SUBCUT Q24H [facility] Last Admin: 08/15/23 09:03 Dose: 40 mg Documented By: ISAC Famotidine (Famotidine 20 Mg Tablet) 20 mg PO DAILY [facility] Last Admin: 08/15/23 09:03 Dose: 20 mg Documented By: ISAC Glucose (Glucose Gel 15 Gm Gel..Gram.) 15 gm PO Q15M PRN; Protocol PRN Reason: per Hypoglycemia Standing Ord. Piperacillin Sod/Tazobactam (Sod 3.375 gm/ Sodium Chloride) 50 mls @ 100 mls/hr IV Q6H [facility] Last Infusion: 08/15/23 09:37 Dose: Infused Documented By: ISAC Insulin Human Lispro (Insulin Lispro 100 Unit/Ml 3 Ml Vial) 0 unit SUBCUT QIDACHS [facility]; Protocol Last Admin: 08/15/23 09:02 Dose: 4 unit Documented By: ISAC Lidocaine (Lidocaine 4 % Patch Adh..Patch) 1 patch TRANSDERMA DAILY [facility]; Protocol Last Admin: 08/15/23 09:04 Dose: 1 patch Documented By: ISAC Metoclopramide HCl (Metoclopramide Hcl 10 Mg/2 Ml Vial) 5 mg IVPUSH Q6H PRN PRN Reason: Nausea and Vomiting Last Admin: 08/15/23 06:07 Dose: 5 mg Documented By: RANDY Comments: Pt reports feeling nauseated. Sodium Chloride (0.9 % Sodium Chloride Flush 3 Ml Syringe) 3 ml IVFLUSH QSHIFT [facility] Last Admin: 08/15/23 09:03 Dose: 3 ml Documented By: ISAC Vitamin D (Cholecalciferol (Vitamin D3) 25 Mcg Tablet) 25 mcg PO DAILY [facility] Last Admin: 08/15/23 09:02 Dose: 25 mcg Documented By: ISAC Labs 08/15/23 06:26 08/15/23 06:26 Labs: Laboratory Results - last 24 hr 08/14/23 08/14/23 08/14/23 11:46 15:23 20:54 MCV MCH MCHC RDW Plt Count MPV Immature Gran % (Auto) Neut % (Auto) Lymph % (Auto) [place] % (Auto) Eos % (Auto) Baso % (Auto) Lymph # (Auto) [place] # (Auto) Eos # (Auto) Baso # (Auto) Abs Immat Gran (auto) Absolute Neuts (auto) Absolute Nucleated RBC Nucleated RBC % (auto) Anion Gap Estim Creat Clear Calc Estimated GFR POC Glucose 186 H 118 H 186 H Random Glucose Fasting Glucose Calcium Phosphorus Magnesium Albumin Triglycerides 08/15/23 08/15/23 08/15/23 06:26 06:26 06:26 MCV 87.6 Cancelled MCH 29.0 Cancelled MCHC 33.1 RDW Plt Count MPV Immature Gran % (Auto) Neut % (Auto) Lymph % (Auto) [place] % (Auto) Eos % (Auto) Baso % (Auto) Lymph # (Auto) [place] # (Auto) Eos # (Auto) Baso # (Auto) Abs Immat Gran (auto) Absolute Neuts (auto) Absolute Nucleated RBC Nucleated RBC % (auto) Anion Gap Estim Creat Clear Calc Estimated GFR POC Glucose Random Glucose Fasting Glucose Calcium Phosphorus Magnesium Albumin Triglycerides 08/15/23 08/15/23 08/15/23 06:26 06:26 06:26 MCV MCH MCHC Cancelled RDW 14.4 Cancelled Plt Count 399 Cancelled MPV 10.6 Immature Gran % (Auto) Neut % (Auto) Lymph % (Auto) [place] % (Auto) Eos % (Auto) Baso % (Auto) Lymph # (Auto) [place] # (Auto) Eos # (Auto) Baso # (Auto) Abs Immat Gran (auto) Absolute Neuts (auto) Absolute Nucleated RBC Nucleated RBC % (auto) Anion Gap Estim Creat Clear Calc Estimated GFR POC Glucose Random Glucose Fasting Glucose Calcium Phosphorus Magnesium Albumin Triglycerides 08/15/23 08/15/23 08/15/23 06:26 06:26 06:26 MCV MCH MCHC RDW Plt Count MPV Cancelled Immature Gran % (Auto) 1.6 H Neut % (Auto) 77.7 H Lymph % (Auto) 11.8 L [place] % (Auto) 8.5 Eos % (Auto) 0.2 Baso % (Auto) 0.2 Lymph # (Auto) 1.5 [place] # (Auto) 1.1 Eos # (Auto) 0.0 Baso # (Auto) 0.0 Abs Immat Gran (auto) 0.20 H Absolute Neuts (auto) 9.8 H Absolute Nucleated RBC 0.000 Cancelled Nucleated RBC % (auto) 0.0 Cancelled Anion Gap Cancelled Estim Creat Clear Calc Estimated GFR POC Glucose Random Glucose Fasting Glucose Calcium Phosphorus Magnesium Albumin Triglycerides 08/15/23 08/15/23 08/15/23 06:26 06:26 06:26 MCV MCH MCHC RDW Plt Count MPV Immature Gran % (Auto) Neut % (Auto) Lymph % (Auto) [place] % (Auto) Eos % (Auto) Baso % (Auto) Lymph # (Auto) [place] # (Auto) Eos # (Auto) Baso # (Auto) Abs Immat Gran (auto) Absolute Neuts (auto) Absolute Nucleated RBC Nucleated RBC % (auto) Anion Gap 14 Estim Creat Clear Calc Cancelled 192.3 Estimated GFR Cancelled > 60 POC Glucose Random Glucose Cancelled Fasting Glucose 228 H Calcium Cancelled Phosphorus Magnesium Albumin Triglycerides 08/15/23 08/15/23 08/15/23 06:26 06:26 06:26 MCV MCH MCHC RDW Plt Count MPV Immature Gran % (Auto) Neut % (Auto) Lymph % (Auto) [place] % (Auto) Eos % (Auto) Baso % (Auto) Lymph # (Auto) [place] # (Auto) Eos # (Auto) Baso # (Auto) Abs Immat Gran (auto) Absolute Neuts (auto) Absolute Nucleated RBC Nucleated RBC % (auto) Anion Gap Estim Creat Clear Calc Estimated GFR POC Glucose Random Glucose Fasting Glucose Calcium 8.9 Phosphorus Cancelled 2.8 Magnesium Cancelled 1.6 Albumin Cancelled Triglycerides 08/15/23 08/15/23 06:26 07:33 MCV MCH MCHC RDW Plt Count MPV Immature Gran % (Auto) Neut % (Auto) Lymph % (Auto) [place] % (Auto) Eos % (Auto) Baso % (Auto) Lymph # (Auto) [place] # (Auto) Eos # (Auto) Baso # (Auto) Abs Immat Gran (auto) Absolute Neuts (auto) Absolute Nucleated RBC Nucleated RBC % (auto) Anion Gap Estim Creat Clear Calc Estimated GFR POC Glucose 232 H Random Glucose Fasting Glucose Calcium Phosphorus Magnesium Albumin 3.0 L Triglycerides 139 Microbiology Microbiology Results: Microbiology 08/09/23 Unknown Gram Stain - Final Peritoneal Fluid Routine Culture - Final No growth after 2 days Anaerobic Culture - Final NO GROWTH AFTER 5 DAYS Assessment and Plan (1) Abdominal pain: Status: Acute Plan 53M PMH significant for 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
[2023-08-15 11:36] LABS: Glucose, Whole Blood 136 mg/dL (60-115)
[2023-08-15 16:23] LABS: Glucose, Whole Blood 128 mg/dL (60-115)
[2023-08-15 21:16] LABS: Glucose, Whole Blood 121 mg/dL (60-115)
[2023-08-16] MEDS: Piperacillin Sodium/Tazobactam 3.375 GM in 0.9 % Sodium Chloride 50 ML IV ×4 (02:42→21:58)
[2023-08-16 03:01] VITALS: BP 113/61; PULSE 90; RESP 20; TEMP 37.3; O2SAT 97
[2023-08-16] MEDS: Metoclopramide HCl 10 MG/2 ML VIAL 5 MG IVPUSH (05:59)
[2023-08-16 06:48] LABS: Basophils Percent Auto 0.2 % (0-2); Eosinophils Percent Auto 0.3 % (0-4); Hematocrit 36.1 % (42.0-52.0); Hemoglobin 11.8 g/dl (14.0-18.0); Imm Gran Abs Auto 0.17 X10*3/uL (0.00-0.03); Imm Gran Pct Auto 1.5 % (0.0-0.4); Lymphocytes Absolute Auto 1.6 X10*3/uL (1.2-4.9); Lymphocytes Percent Auto 13.5 % (20-40); MANUAL DIFF FLAG SCAN; Mean Corpuscular HGB Conc 32.7 g/dl (31.0-36.0); Mean Corpuscular Volume 88.7 fL (80.0-98.0); Mean Platelet Volume 10.8 fL (9.4-12.4); Monocytes Absolute Auto 1.2 X10*3/uL (0.1-1.2); Monocytes Percent Auto 10.6 % (2-11); Neutrophils Absolute Auto 8.6 x10*3/uL (2.0-8.3); Neutrophils Percent Auto 73.9 % (45-73); Platelet Count 404 X10*3/uL (160-400); Red Blood Count 4.07 X10*6/uL (4.60-5.80); Red Cell Distribution Width 14.4 % (11.0-16.0); SCAN SMEAR FLAG 1; White Blood Count 11.7 X10*3/uL (4.8-10.8)
[2023-08-16 07:01] LABS: Anion Gap 14 (12-20); Blood Urea Nitrogen 16 mg/dL (9-16); Calcium 8.9 mg/dL (8.4-10.2); Carbon Dioxide 25 mmol/L (22-29); Chloride 104 mmol/L (96-108); Creatinine Clr Calc Pharmacy 175.3; Estimated Glomerular Filt Rate > 60; Glucose Random 143 mg/dL (60-115); Magnesium 1.8 mg/dL (1.6-2.6); Phosphorus 2.6 mg/dL (2.7-4.5); Potassium 3.6 mmol/L (3.3-5.1); Sodium 139 mmol/L (135-145); Triglycerides 136 mg/dL (<150)
[2023-08-16 07:32] VITALS: BP 128/73; PULSE 98; RESP 20; TEMP 37.3; O2SAT 99
[2023-08-16 07:41] LABS: SLIDE REVIEW VERIFIED
[2023-08-16 07:47] LABS: Glucose, Whole Blood 132 mg/dL (60-115)
--- NOTE | 2023-08-16 08:13 | PM.PNGS ---
Subjective Subjective Date of Service: 08/17/23 Interval history: had been tolerating clear liquids was advanced to full liquids but says he threw up this morning however, says he actual continues to feel better denies any abdl pain passing flatus and BMs Physical Exam Vital Signs: Vital Signs: Last Vital Signs Temp 99.1 F 08/16/23 07:32 Pulse 98 08/16/23 07:32 Resp 20 08/16/23 07:32 BP 128/73 08/16/23 07:32 Pulse Ox 99 08/16/23 07:32 O2 Del Method Nasal Cannula 08/16/23 07:32 O2 Flow Rate 2 08/16/23 07:32 FiO2 70 08/11/23 13:00 BMI result Body Mass Index 42.3 Const: General: comfortable and no acute distress Resp: Effort & Inspection: normal respiratory effort Cardio: Rate: regular rate GI: Other: incision clean Palpation (GI): Soft to palpation, not firm and no guarding Objective Data Active Medications Bisacodyl (Bisacodyl 10 Mg Supp.Rect) 10 mg [place] DAILY PRN PRN Reason: Constipation Calcium Carbonate (Calcium Carbonate 750 Mg Tab.Chew) 750 mg PO Q6H PRN PRN Reason: Heartburn Last Admin: 08/14/23 22:28 Dose: 750 mg Documented By: RANDY Comments: given for c/o heartburn Dextrose (Dextrose 50 % 25 Gm/50 Ml Syringe) 25 gm IVPUSH Q15M PRN; Protocol PRN Reason: per Hypoglycemia Standing Ord. Enoxaparin Sodium (Enoxaparin Sodium 40 Mg/0.4 Ml Syringe) 40 mg SUBCUT Q24H COUNTS INCLUDE 234 BEDS AT THE [facility] Last Admin: 08/15/23 09:03 Dose: 40 mg Documented By: ISAC Famotidine (Famotidine 20 Mg Tablet) 20 mg PO DAILY COUNTS INCLUDE 234 BEDS AT THE [facility] Last Admin: 08/15/23 09:03 Dose: 20 mg Documented By: ISAC Glucose (Glucose Gel 15 Gm Gel..Gram.) 15 gm PO Q15M PRN; Protocol PRN Reason: per Hypoglycemia Standing Ord. Piperacillin Sod/Tazobactam (Sod 3.375 gm/ Sodium Chloride) 50 mls @ 100 mls/hr IV Q6H COUNTS INCLUDE 234 BEDS AT THE [facility] Last Infusion: 08/16/23 03:51 Dose: Infused Documented By: RANDY Insulin Human Lispro (Insulin Lispro 100 Unit/Ml 3 Ml Vial) 0 unit SUBCUT QIDACHS COUNTS INCLUDE 234 BEDS AT THE [facility]; Protocol Last Admin: 08/16/23 07:49 Dose: Not Given Documented By: ARMANDO Non-Admin Reason: No Insulin Coverage Lidocaine (Lidocaine 4 % Patch Adh..Patch) 1 patch TRANSDERMA DAILY COUNTS INCLUDE 234 BEDS AT THE [facility]; Protocol Last Admin: 08/15/23 09:04 Dose: 1 patch Documented By: ISAC Metoclopramide HCl (Metoclopramide Hcl 10 Mg/2 Ml Vial) 5 mg IVPUSH Q6H PRN PRN Reason: Nausea and Vomiting Last Admin: 08/16/23 05:59 Dose: 5 mg Documented By: RANDY Sodium Chloride (0.9 % Sodium Chloride Flush 3 Ml Syringe) 3 ml IVFLUSH QSHIFT COUNTS INCLUDE 234 BEDS AT THE [facility] Last Admin: 08/15/23 22:01 Dose: 3 ml Documented By: RANDY Vitamin D (Cholecalciferol (Vitamin D3) 25 Mcg Tablet) 25 mcg PO DAILY COUNTS INCLUDE 234 BEDS AT THE [facility] Last Admin: 08/15/23 09:02 Dose: 25 mcg Documented By: ISAC Labs 08/17/23 06:02 08/17/23 06:02 Labs: Laboratory Results - last 24 hr 08/15/23 08/15/23 08/15/23 11:33 16:20 20:59 MCV MCH MCHC RDW Plt Count MPV Immature Gran % (Auto) Neut % (Auto) Lymph % (Auto) [place] % (Auto) Eos % (Auto) Baso % (Auto) Lymph # (Auto) [place] # (Auto) Eos # (Auto) Baso # (Auto) Abs Immat Gran (auto) Absolute Neuts (auto) Absolute Nucleated RBC Nucleated RBC % (auto) Smear Tech's Comments Anion Gap Estim Creat Clear Calc Estimated GFR POC Glucose 136 H 128 H 121 H Random Glucose Calcium Phosphorus Magnesium Triglycerides 08/16/23 08/16/23 06:03 07:35 MCV 88.7 MCH 29.0 MCHC 32.7 RDW 14.4 Plt Count 404 H MPV 10.8 Immature Gran % (Auto) 1.5 H Neut % (Auto) 73.9 H Lymph % (Auto) 13.5 L [place] % (Auto) 10.6 Eos % (Auto) 0.3 Baso % (Auto) 0.2 Lymph # (Auto) 1.6 [place] # (Auto) 1.2 Eos # (Auto) 0.0 Baso # (Auto) 0.0 Abs Immat Gran (auto) 0.17 H Absolute Neuts (auto) 8.6 H Absolute Nucleated RBC 0.000 Nucleated RBC % (auto) 0.0 Smear Tech's Comments VERIFIED Anion Gap 14 Estim Creat Clear Calc 175.3 Estimated GFR > 60 POC Glucose 132 H Random Glucose 143 H Calcium 8.9 Phosphorus 2.6 L Magnesium 1.8 Triglycerides 136 Microbiology Microbiology Results: Microbiology 08/09/23 Unknown Gram Stain - Final Peritoneal Fluid Routine Culture - Final No growth after 2 days Anaerobic Culture - Final NO GROWTH AFTER 5 DAYS Procedures Date of Service Date of Service: 08/17/23 Progress Note: A&P Assessment and plan (1) Status post small bowel resection: Status: Acute Assessment and Plan: seems be clinically doing well looks comfortable will keep on clear liquids TPN labs ok this AM girlfriend updated Time Spent With Patient Time: Total time managing care of this patient today ____ minutes. Quality Stroke Does the patient have a stroke diagnosis?: No VTE Prior VTE?: No VTE Risk Level:: Medical - moderate - high VTE Device Contraindication: Treatment Not Indicated VTE Drug Contraindication: Treatment Not Tolerated
--- NOTE | 2023-08-16 08:41 | HO.PM.IMPN ---
Subjective Subjective Date of Service: 08/16/23 Interval History: naseua, threw up, asking to go back to clear liquids Physical Exam Vital Signs: Vital Signs: Last Vital Signs Temp 99.1 F 08/16/23 07:32 Pulse 98 08/16/23 07:32 Resp 20 08/16/23 07:32 BP 128/73 08/16/23 07:32 Pulse Ox 99 08/16/23 07:32 O2 Del Method Nasal Cannula 08/16/23 07:32 O2 Flow Rate 2 08/16/23 07:32 FiO2 70 08/11/23 13:00 BMI result Body Mass Index 42.3 Const: General: comfortable and no acute distress Resp: Effort & Inspection: normal respiratory effort Cardio: Rate: regular rate GI: Other: incision clean Palpation (GI): Soft to palpation, not firm and no guarding Objective Data Active Medications Bisacodyl (Bisacodyl 10 Mg Supp.Rect) 10 mg [place] DAILY PRN PRN Reason: Constipation Calcium Carbonate (Calcium Carbonate 750 Mg Tab.Chew) 750 mg PO Q6H PRN PRN Reason: Heartburn Last Admin: 08/14/23 22:28 Dose: 750 mg Documented By: RANDY Comments: given for c/o heartburn Dextrose (Dextrose 50 % 25 Gm/50 Ml Syringe) 25 gm IVPUSH Q15M PRN; Protocol PRN Reason: per Hypoglycemia Standing Ord. Enoxaparin Sodium (Enoxaparin Sodium 40 Mg/0.4 Ml Syringe) 40 mg SUBCUT Q24H [facility] Last Admin: 08/15/23 09:03 Dose: 40 mg Documented By: ISAC Famotidine (Famotidine 20 Mg Tablet) 20 mg PO DAILY [facility] Last Admin: 08/15/23 09:03 Dose: 20 mg Documented By: ISAC Glucose (Glucose Gel 15 Gm Gel..Gram.) 15 gm PO Q15M PRN; Protocol PRN Reason: per Hypoglycemia Standing Ord. Piperacillin Sod/Tazobactam (Sod 3.375 gm/ Sodium Chloride) 50 mls @ 100 mls/hr IV Q6H [facility] Last Infusion: 08/16/23 03:51 Dose: Infused Documented By: RANDY Lactated Ringer's (Lr) 1,000 mls @ 80 mls/hr IVCONT .[id number] [facility] Insulin Human Lispro (Insulin Lispro 100 Unit/Ml 3 Ml Vial) 0 unit SUBCUT QIDACHS [facility]; Protocol Last Admin: 08/16/23 07:49 Dose: Not Given Documented By: ARMANDO Non-Admin Reason: No Insulin Coverage Lidocaine (Lidocaine 4 % Patch Adh..Patch) 1 patch TRANSDERMA DAILY [facility]; Protocol Last Admin: 08/15/23 09:04 Dose: 1 patch Documented By: ISAC Metoclopramide HCl (Metoclopramide Hcl 10 Mg/2 Ml Vial) 5 mg IVPUSH Q6H PRN PRN Reason: Nausea and Vomiting Last Admin: 08/16/23 05:59 Dose: 5 mg Documented By: RANDY Sodium Chloride (0.9 % Sodium Chloride Flush 3 Ml Syringe) 3 ml IVFLUSH QSHIFT [facility] Last Admin: 08/15/23 22:01 Dose: 3 ml Documented By: RANDY Vitamin D (Cholecalciferol (Vitamin D3) 25 Mcg Tablet) 25 mcg PO DAILY [facility] Last Admin: 08/15/23 09:02 Dose: 25 mcg Documented By: ISAC Labs 08/16/23 06:03 08/16/23 06:03 Labs: Laboratory Results - last 24 hr 08/15/23 08/15/23 08/15/23 11:33 16:20 20:59 MCV MCH MCHC RDW Plt Count MPV Immature Gran % (Auto) Neut % (Auto) Lymph % (Auto) [place] % (Auto) Eos % (Auto) Baso % (Auto) Lymph # (Auto) [place] # (Auto) Eos # (Auto) Baso # (Auto) Abs Immat Gran (auto) Absolute Neuts (auto) Absolute Nucleated RBC Nucleated RBC % (auto) Smear Tech's Comments Anion Gap Estim Creat Clear Calc Estimated GFR POC Glucose 136 H 128 H 121 H Random Glucose Calcium Phosphorus Magnesium Triglycerides 08/16/23 08/16/23 06:03 07:35 MCV 88.7 MCH 29.0 MCHC 32.7 RDW 14.4 Plt Count 404 H MPV 10.8 Immature Gran % (Auto) 1.5 H Neut % (Auto) 73.9 H Lymph % (Auto) 13.5 L [place] % (Auto) 10.6 Eos % (Auto) 0.3 Baso % (Auto) 0.2 Lymph # (Auto) 1.6 [place] # (Auto) 1.2 Eos # (Auto) 0.0 Baso # (Auto) 0.0 Abs Immat Gran (auto) 0.17 H Absolute Neuts (auto) 8.6 H Absolute Nucleated RBC 0.000 Nucleated RBC % (auto) 0.0 Smear Tech's Comments VERIFIED Anion Gap 14 Estim Creat Clear Calc 175.3 Estimated GFR > 60 POC Glucose 132 H Random Glucose 143 H Calcium 8.9 Phosphorus 2.6 L Magnesium 1.8 Triglycerides 136 Microbiology Microbiology Results: Microbiology 08/09/23 Unknown Gram Stain - Final Peritoneal Fluid Routine Culture - Final No growth after 2 days Anaerobic Culture - Final NO GROWTH AFTER 5 DAYS Assessment and Plan (1) Abdominal pain: Status: Acute Plan 53M PMH significant for 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
[2023-08-16] MEDS: Lactated Ringers 1,000 ML 80 ML IVCONT ×2 (09:12→21:58)
[2023-08-16] MEDS: Lidocaine 4 % Patch ADH..PATCH 1 PATCH TRANSDERMA (09:16)
[2023-08-16] MEDS: Cholecalciferol (Vitamin D3) 25 MCG TABLET PO (09:16)
[2023-08-16] MEDS: Famotidine 20 MG TABLET PO (09:16)
[2023-08-16] MEDS: 0.9 % Sodium Chloride Flush 3 ML SYRINGE IVFLUSH ×2 (10:21→22:08)
--- NOTE | 2023-08-16 10:44 | MHC.CLN ---
F/U NGT REMOVED PT'S DIET ADVANCED TO C/L THEN F/L OVER WEEKEND PT WITH EPISODE OF N/V WITH F/L AND REQUESTED DOWNGRADE BACK TO CLEARS TPN TO RESUME TODAY PER MD REVIEWED LABS DISCUSSED WITH PHARMACY RECOMMEND RE-STARTING TPN TO 85ML/HR WITH 86G LIPIDS TO PROVIDE 2308TOTAL KCALS (30KCALS/KG), 102G PROTEIN (1.3G/KG), 306G DEXTROSE TPN WILL PROMOTE WOUND HEALING REPLETE LYTES NEEDED
[2023-08-16 11:39] VITALS: BP 131/82; PULSE 104; RESP 20; TEMP 37.6; O2SAT 99
[2023-08-16 11:57] LABS: Glucose, Whole Blood 142 mg/dL (60-115)
--- NOTE | 2023-08-16 12:54 | MHC.CM.PN ---
Per MD rounds no discharge today. Patient is not tolerating diet. DP home with new [facility] via BLS.
[2023-08-16 14:21] VITALS: O2SAT 97
--- NOTE | 2023-08-16 14:51 | PM.EVENT ---
Event Note Date of Service: 08/17/23 Event Note: Seen on afternoon rounds Says he continues to feel well Has BMs and flatus No further vomiting or nausea Abdomen soft Clinically looks well TPN reordered On clear liquids KUB shows distended small bowel loops, seems to have air in the colon Patient states that he seems to be pretty much back to his baseline Time Spent With Patient Time: Total time managing care of this patient today ____ minutes.
[2023-08-16 15:30] LABS: Glucose, Whole Blood 123 mg/dL (60-115)
[2023-08-16 17:05] VITALS: BP 99/57; PULSE 101; RESP 18; TEMP 37.3; O2SAT 94
[2023-08-16] MEDS: Parenteral Nutrition 2,040 ML 85 ML IV (22:08)
[2023-08-16 23:34] VITALS: BP 122/65; PULSE 101; RESP 19; TEMP 37.8; O2SAT 95
--- NOTE | 2023-08-17 00:16 | PC.RT ---
pt started on sleep study at 00:00 room air
[2023-08-17] MEDS: Piperacillin Sodium/Tazobactam 3.375 GM in 0.9 % Sodium Chloride 50 ML IV ×4 (02:05→20:55)
[2023-08-17 03:00] VITALS: BP 109/61; PULSE 105; RESP 21; TEMP 37.2; O2SAT 95
[2023-08-17 06:20] LABS: Basophils Percent Auto 0.3 % (0-2); Eosinophils Percent Auto 0.3 % (0-4); Hemoglobin 11.3 g/dl (14.0-18.0); Imm Gran Abs Auto 0.09 X10*3/uL (0.00-0.03); Imm Gran Pct Auto 0.9 % (0.0-0.4); Lymphocytes Absolute Auto 1.4 X10*3/uL (1.2-4.9); Lymphocytes Percent Auto 13.6 % (20-40); MANUAL DIFF FLAG SCAN; Mean Corpuscular HGB Conc 32.3 g/dl (31.0-36.0); Mean Corpuscular Hemoglobin 28.5 pg (27.0-33.0); Mean Corpuscular Volume 88.4 fL (80.0-98.0); Mean Platelet Volume 10.6 fL (9.4-12.4); Monocytes Absolute Auto 1.4 X10*3/uL (0.1-1.2); Monocytes Percent Auto 13.7 % (2-11); Neutrophils Absolute Auto 7.2 x10*3/uL (2.0-8.3); Neutrophils Percent Auto 71.2 % (45-73); Platelet Count 388 X10*3/uL (160-400); Red Blood Count 3.96 X10*6/uL (4.60-5.80); Red Cell Distribution Width 14.5 % (11.0-16.0); SCAN SMEAR FLAG 1; White Blood Count 10.1 X10*3/uL (4.8-10.8)
[2023-08-17 06:27] LABS: Triglycerides 159 mg/dL (<150)
--- NOTE | 2023-08-17 06:28 | PC.RT ---
Taken off sleep study 0500
[2023-08-17 06:31] LABS: Anion Gap 12 (12-20); Blood Urea Nitrogen 13 mg/dL (9-16); Calcium 8.8 mg/dL (8.4-10.2); Carbon Dioxide 27 mmol/L (22-29); Chloride 104 mmol/L (96-108); Creatinine Clr Calc Pharmacy 189.7; Estimated Glomerular Filt Rate > 60; Glucose Random 225 mg/dL (60-115); Magnesium 1.9 mg/dL (1.6-2.6); Phosphorus 2.1 mg/dL (2.7-4.5); Potassium 3.7 mmol/L (3.3-5.1); Sodium 139 mmol/L (135-145)
[2023-08-17 06:43] LABS: SLIDE REVIEW VERIFIED
[2023-08-17 07:19] LABS: Glucose, Whole Blood 237 mg/dL (60-115)
--- NOTE | 2023-08-17 07:37 | PM.PNGS ---
Subjective Subjective Date of Service: 08/17/23 Interval history: says he does not like TPN he states this causes his blood sugars to get worse, with burping denies pain continues to have BMs and flatus no further N/V Physical Exam Vital Signs: Vital Signs: Last Vital Signs Temp 99.0 F 08/17/23 03:00 Pulse 105 H 08/17/23 03:00 Resp 21 H 08/17/23 03:00 BP 109/61 08/17/23 03:00 Pulse Ox 95 08/17/23 03:00 O2 Del Method Room Air 08/17/23 03:00 O2 Flow Rate 2 08/16/23 07:32 FiO2 70 08/11/23 13:00 BMI result Body Mass Index 42.3 Const: Other: looks well General: comfortable and no acute distress Resp: Effort & Inspection: normal respiratory effort GI: Palpation (GI): Soft to palpation, not firm and nontender Objective Data Active Medications Bisacodyl (Bisacodyl 10 Mg Supp.Rect) 10 mg [place] DAILY PRN PRN Reason: Constipation Calcium Carbonate (Calcium Carbonate 750 Mg Tab.Chew) 750 mg PO Q6H PRN PRN Reason: Heartburn Last Admin: 08/14/23 22:28 Dose: 750 mg Documented By: RANDY Comments: given for c/o heartburn Dextrose (Dextrose 50 % 25 Gm/50 Ml Syringe) 25 gm IVPUSH Q15M PRN; Protocol PRN Reason: per Hypoglycemia Standing Ord. Enoxaparin Sodium (Enoxaparin Sodium 40 Mg/0.4 Ml Syringe) 40 mg SUBCUT Q24H [facility] Famotidine (Famotidine 20 Mg Tablet) 20 mg PO DAILY [facility] Last Admin: 08/16/23 09:16 Dose: 20 mg Documented By: ARMANDO Glucose (Glucose Gel 15 Gm Gel..Gram.) 15 gm PO Q15M PRN; Protocol PRN Reason: per Hypoglycemia Standing Ord. Piperacillin Sod/Tazobactam (Sod 3.375 gm/ Sodium Chloride) 50 mls @ 100 mls/hr IV Q6H [facility] Last Infusion: 08/17/23 03:13 Dose: Infused Documented By: NOELLE-MICHEAL Lactated Ringer's (Lr) 1,000 mls @ 80 mls/hr IVCONT .[id number] [facility] Last Admin: 08/16/23 21:58 Dose: 80 mls/hr Documented By: LOUISE Nutrition (Parenteral) (Parenteral Nutrition) 2,040 mls @ 85 mls/hr IV .Q24H [facility]; Protocol Stop: 08/17/23 20:59 Last Admin: 08/16/23 22:08 Dose: 85 mls/hr Documented By: LOUISE Insulin Human Lispro (Insulin Lispro 100 Unit/Ml 3 Ml Vial) 0 unit SUBCUT QIDACHS [facility]; Protocol Last Admin: 08/16/23 19:56 Dose: Not Given Documented By: LOUISE Non-Admin Reason: No Insulin Coverage Lidocaine (Lidocaine 4 % Patch Adh..Patch) 1 patch TRANSDERMA DAILY [facility]; Protocol Last Admin: 08/16/23 09:16 Dose: 1 patch Documented By: ARMANDO Metoclopramide HCl (Metoclopramide Hcl 10 Mg/2 Ml Vial) 5 mg IVPUSH Q6H PRN PRN Reason: Nausea and Vomiting Last Admin: 08/16/23 05:59 Dose: 5 mg Documented By: RANDY Pharmacy Consult (Consult Rx Parenteral Nutrition Ordering) 1 each MISCELLANE DAILY PRN PRN Reason: Consult order Sodium Chloride (0.9 % Sodium Chloride Flush 3 Ml Syringe) [facility] Last Admin: 08/16/23 22:08 Dose: 3 ml Documented By: LOUISE Vitamin D (Cholecalciferol (Vitamin D3) 25 Mcg Tablet) 25 mcg PO DAILY [facility] Last Admin: 08/16/23 09:16 Dose: 25 mcg Documented By: ARMANDO Labs 08/17/23 06:02 08/17/23 06:02 Labs: Laboratory Results - last 24 hr 08/16/23 08/16/23 08/16/23 06:03 07:35 11:46 MCV 88.7 MCH 29.0 MCHC 32.7 RDW 14.4 Plt Count 404 H MPV 10.8 Immature Gran % (Auto) 1.5 H Neut % (Auto) 73.9 H Lymph % (Auto) 13.5 L [place] % (Auto) 10.6 Eos % (Auto) 0.3 Baso % (Auto) 0.2 Lymph # (Auto) 1.6 [place] # (Auto) 1.2 Eos # (Auto) 0.0 Baso # (Auto) 0.0 Abs Immat Gran (auto) 0.17 H Absolute Neuts (auto) 8.6 H Absolute Nucleated RBC 0.000 Nucleated RBC % (auto) 0.0 Smear Tech's Comments VERIFIED Anion Gap Estim Creat Clear Calc Estimated GFR POC Glucose 132 H 142 H Random Glucose Calcium Phosphorus Magnesium Triglycerides 08/16/23 08/17/23 08/17/23 15:26 06:02 07:14 MCV 88.4 MCH 28.5 MCHC 32.3 RDW 14.5 Plt Count 388 MPV 10.6 Immature Gran % (Auto) 0.9 H Neut % (Auto) 71.2 Lymph % (Auto) 13.6 L [place] % (Auto) 13.7 H Eos % (Auto) 0.3 Baso % (Auto) 0.3 Lymph # (Auto) 1.4 [place] # (Auto) 1.4 H Eos # (Auto) 0.0 Baso # (Auto) 0.0 Abs Immat Gran (auto) 0.09 H Absolute Neuts (auto) 7.2 Absolute Nucleated RBC 0.000 Nucleated RBC % (auto) 0.0 Smear Tech's Comments VERIFIED Anion Gap 12 Estim Creat Clear Calc 189.7 Estimated GFR > 60 POC Glucose 123 H 237 H Random Glucose 225 H Calcium 8.8 Phosphorus 2.1 L Magnesium 1.9 Triglycerides 159 H Procedures Date of Service Date of Service: 08/17/23 Progress Note: A&P Assessment and plan (1) Status post small bowel resection: Status: Acute Assessment and Plan: wants TPN held likes lemon water and coconut water brought by no nausea or vomitting labs ok keep on clears for now Time Spent With Patient Time: Total time managing care of this patient today ____ minutes. Quality Stroke Does the patient have a stroke diagnosis?: No VTE Prior VTE?: No VTE Risk Level:: Medical - moderate - high VTE Device Contraindication: Treatment Not Indicated VTE Drug Contraindication: Treatment Not Tolerated
[2023-08-17 07:39] VITALS: BP 125/77; PULSE 98; RESP 18; TEMP 37.7; O2SAT 96
[2023-08-17] MEDS: Famotidine 20 MG TABLET PO (07:56)
[2023-08-17] MEDS: Enoxaparin Sodium 40 MG/0.4 ML SYRINGE SUBCUT (07:56)
[2023-08-17] MEDS: Insulin Lispro 100 UNIT/ML 3 ML VIAL SUBCUT (07:57)
[2023-08-17] MEDS: Cholecalciferol (Vitamin D3) 25 MCG TABLET PO (07:57)
[2023-08-17] MEDS: 0.9 % Sodium Chloride Flush 3 ML SYRINGE IVFLUSH ×2 (07:58→16:02)
[2023-08-17] MEDS: Lidocaine 4 % Patch ADH..PATCH 1 PATCH TRANSDERMA (07:59)
[2023-08-17] MEDS: Lactated Ringers 1,000 ML 80 ML IVCONT ×2 (09:35→20:55)
--- NOTE | 2023-08-17 10:06 | MHC.CLN ---
F/U DIET RX: C/L REVIEWED LABS PT RECEIVED TPN AT 85ML/HR WITH 86G LIPIDS PROVIDED 2308TOTAL KCALS (30KCALS/KG), 102G PROTEIN (1.3G/KG), 306G DEXTROSE PT C/O HYPERGLYCEMIA AND DISLIKES TPN; C/O BURPING IF TPN TO CONTINUE; RECOMMEND GOAL RATE NOTED ABOVE REPLETE LYTES NEEDED WILL ADD ENSURE CLEAR TID WITH C/L TRAY TO INCREASE KCALS AND PROMOTE WOUND HEALING
--- NOTE | 2023-08-17 10:23 | P.PNIM_ITS ---
Subjective Subjective Date of Service: 08/17/23 Interval History: still having bms, but feels bloated Physical Exam 2 Vital Signs: Vital Signs: Last Vital Signs Temp 99.8 F 08/17/23 07:39 Pulse 98 08/17/23 07:39 Resp 18 08/17/23 07:39 BP 125/77 08/17/23 07:39 Pulse Ox 96 08/17/23 07:39 O2 Del Method Room Air 08/17/23 07:39 O2 Flow Rate 2 08/16/23 07:32 FiO2 70 08/11/23 13:00 BMI result Body Mass Index 42.3 Const: Other: looks well General: comfortable and no acute distress Resp: Effort & Inspection: normal respiratory effort GI: Palpation (GI): Soft to palpation, not firm and nontender Objective Data Active Medications Bisacodyl (Bisacodyl 10 Mg Supp.Rect) 10 mg [place] DAILY PRN PRN Reason: Constipation Calcium Carbonate (Calcium Carbonate 750 Mg Tab.Chew) 750 mg PO Q6H PRN PRN Reason: Heartburn Last Admin: 08/14/23 22:28 Dose: 750 mg Documented By: RANDY Comments: given for c/o heartburn Dextrose (Dextrose 50 % 25 Gm/50 Ml Syringe) 25 gm IVPUSH Q15M PRN; Protocol PRN Reason: per Hypoglycemia Standing Ord. Enoxaparin Sodium (Enoxaparin Sodium 40 Mg/0.4 Ml Syringe) 40 mg SUBCUT Q24H [facility] Last Admin: 08/17/23 07:56 Dose: 40 mg Documented By: PETE Famotidine (Famotidine 20 Mg Tablet) 20 mg PO DAILY [facility] Last Admin: 08/17/23 07:56 Dose: 20 mg Documented By: PETE Glucose (Glucose Gel 15 Gm Gel..Gram.) 15 gm PO Q15M PRN; Protocol PRN Reason: per Hypoglycemia Standing Ord. Piperacillin Sod/Tazobactam (Sod 3.375 gm/ Sodium Chloride) 50 mls @ 100 mls/hr IV Q6H [facility] Last Infusion: 08/17/23 08:28 Dose: Infused Documented By: PETE Lactated Ringer's (Lr) 1,000 mls @ 80 mls/hr IVCONT .[id number] [facility] Last Admin: 08/17/23 09:35 Dose: 80 mls/hr Documented By: PETE Nutrition (Parenteral) (Parenteral Nutrition) 2,040 mls @ 85 mls/hr IV .Q24H [facility]; Protocol Stop: 08/17/23 20:59 Last Infusion: 08/17/23 08:02 Dose: 0 mls/hr Documented By: PETE Insulin Human Lispro (Insulin Lispro 100 Unit/Ml 3 Ml Vial) 0 unit SUBCUT QIDACHS [facility]; Protocol Last Admin: 08/17/23 07:57 Dose: 4 unit Documented By: PETE Lidocaine (Lidocaine 4 % Patch Adh..Patch) 1 patch TRANSDERMA DAILY [facility]; Protocol Last Admin: 08/17/23 07:59 Dose: 1 patch Documented By: PETE Metoclopramide HCl (Metoclopramide Hcl 10 Mg/2 Ml Vial) 5 mg IVPUSH Q6H PRN PRN Reason: Nausea and Vomiting Last Admin: 08/16/23 05:59 Dose: 5 mg Documented By: RANDY Pharmacy Consult (Consult Rx Parenteral Nutrition Ordering) 1 each MISCELLANE DAILY PRN PRN Reason: Consult order Sodium Chloride (0.9 % Sodium Chloride Flush 3 Ml Syringe) 3 ml IVFLUSH QSHIFT [facility] Last Admin: 08/17/23 07:58 Dose: 3 ml Documented By: PETE Vitamin D (Cholecalciferol (Vitamin D3) 25 Mcg Tablet) 25 mcg PO DAILY [facility] Last Admin: 08/17/23 07:57 Dose: 25 mcg Documented By: PETE Labs 08/17/23 06:02 08/17/23 06:02 Labs: Laboratory Results - last 24 hr 08/16/23 08/16/23 08/17/23 11:46 15:26 06:02 MCV 88.4 MCH 28.5 MCHC 32.3 RDW 14.5 Plt Count 388 MPV 10.6 Immature Gran % (Auto) 0.9 H Neut % (Auto) 71.2 Lymph % (Auto) 13.6 L [place] % (Auto) 13.7 H Eos % (Auto) 0.3 Baso % (Auto) 0.3 Lymph # (Auto) 1.4 [place] # (Auto) 1.4 H Eos # (Auto) 0.0 Baso # (Auto) 0.0 Abs Immat Gran (auto) 0.09 H Absolute Neuts (auto) 7.2 Absolute Nucleated RBC 0.000 Nucleated RBC % (auto) 0.0 Smear Tech's Comments VERIFIED Anion Gap 12 Estim Creat Clear Calc 189.7 Estimated GFR > 60 POC Glucose 142 H 123 H Random Glucose 225 H Calcium 8.8 Phosphorus 2.1 L Magnesium 1.9 Triglycerides 159 H 08/17/23 07:14 MCV MCH MCHC RDW Plt Count MPV Immature Gran % (Auto) Neut % (Auto) Lymph % (Auto) [place] % (Auto) Eos % (Auto) Baso % (Auto) Lymph # (Auto) [place] # (Auto) Eos # (Auto) Baso # (Auto) Abs Immat Gran (auto) Absolute Neuts (auto) Absolute Nucleated RBC Nucleated RBC % (auto) Smear Tech's Comments Anion Gap Estim Creat Clear Calc Estimated GFR POC Glucose 237 H Random Glucose Calcium Phosphorus Magnesium Triglycerides Assessment and Plan (1) Abdominal pain: Status: Acute Plan 53M PMH significant for 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
[2023-08-17 10:42] LABS: Glucose, Whole Blood 105 mg/dL (60-115)
[2023-08-17 11:19] VITALS: BP 106/64; PULSE 100; RESP 18; TEMP 36.9; O2SAT 94
[2023-08-17 11:25] LABS: Glucose, Whole Blood 77 mg/dL (60-115)
[2023-08-17 11:31] LABS: Glucose, Whole Blood 141 mg/dL (60-115)
--- NOTE | 2023-08-17 14:59 | PM.EVENT ---
Event Note Date of Service: 08/17/23 Event Note: Seen on afternoon rounds Says he continues to feel well No nausea or vomiting Passing flatus and BMs Denies abdominal pain Clinically looks comfortable He requested for TPN to be discontinued Currently taking a lemon water and coconut water as provided by his and says this helps him Keep on clear liquids for now and re-evaluate tomorrow to possibly advanced diet Time Spent With Patient Time: Total time managing care of this patient today ____ minutes.
[2023-08-17 15:51] VITALS: BP 123/75; PULSE 101; RESP 22; TEMP 36.9; O2SAT 96
[2023-08-17 16:34] LABS: Glucose, Whole Blood 153 mg/dL (60-115)
[2023-08-17 19:31] VITALS: BP 133/78; PULSE 101; RESP 18; TEMP 37.1; O2SAT 100
[2023-08-17 20:19] LABS: Glucose, Whole Blood 117 mg/dL (60-115)
[2023-08-17 23:22] VITALS: BP 117/67; PULSE 93; RESP 16; TEMP 37.9; O2SAT 94
--- NOTE | 2023-08-17 23:44 | PC.RT ---
Addendum entered by Radha Jackson 08/18/23 05:58: Pt taken off overnight oximetry at 0550, RN placed pt on 1L NC at 0030 due to prolonged desat in the low 80s. Original Note: pt placed on overnight oximetry at 2330 on room air sats 93%.
[2023-08-17] MEDS: Acetaminophen 325 MG TABLET 650 MG PO (23:52)
[2023-08-18] MEDS: Metoclopramide HCl 10 MG/2 ML VIAL 5 MG IVPUSH ×3 (01:00→20:27)
[2023-08-18] MEDS: Piperacillin Sodium/Tazobactam 3.375 GM in 0.9 % Sodium Chloride 50 ML IV ×2 (03:10→09:39)
[2023-08-18 04:00] VITALS: BP 108/64; PULSE 95; RESP 16; TEMP 37.7; O2SAT 97
[2023-08-18 06:00] VITALS: BMI 47.1
[2023-08-18 06:42] LABS: Hematocrit 34.4 % (42.0-52.0); Hemoglobin 11.2 g/dl (14.0-18.0); Mean Corpuscular HGB Conc 32.6 g/dl (31.0-36.0); Mean Corpuscular Hemoglobin 28.8 pg (27.0-33.0); Mean Corpuscular Volume 88.4 fL (80.0-98.0); Mean Platelet Volume 10.5 fL (9.4-12.4); Platelet Count 431 X10*3/uL (160-400); Red Blood Count 3.89 X10*6/uL (4.60-5.80); Red Cell Distribution Width 14.5 % (11.0-16.0); White Blood Count 10.3 X10*3/uL (4.8-10.8)
[2023-08-18 07:00] LABS: Anion Gap 14 (12-20); Blood Urea Nitrogen 13 mg/dL (9-16); Calcium 8.5 mg/dL (8.4-10.2); Carbon Dioxide 25 mmol/L (22-29); Chloride 105 mmol/L (96-108); Creatinine Clr Calc Pharmacy 213.4; Estimated Glomerular Filt Rate > 60; Glucose Fasting 121 mg/dL (60-99); Magnesium 1.7 mg/dL (1.6-2.6); Phosphorus 2.8 mg/dL (2.7-4.5); Potassium 3.6 mmol/L (3.3-5.1); Sodium 140 mmol/L (135-145)
[2023-08-18 07:04] LABS: Glucose, Whole Blood 118 mg/dL (60-115)
[2023-08-18 07:23] VITALS: BP 119/76; PULSE 100; RESP 20; TEMP 37; O2SAT 97
--- NOTE | 2023-08-18 07:34 | PC.RT ---
pt had an overnight oximetry. Pt sats dropped all the way down into the 50's at times. Spoke with DR. Greenberg and we should repeat a sleep study while pt is inhouse. I will discuss this with patient.
--- NOTE | 2023-08-18 09:20 | P.PNGS_ITS ---
Subjective Subjective Date of Service: 08/19/23 Interval history: He says he feels well Denies abdominal pain States that he is close to his baseline good BMs and flatus Taking a lot of lamina watery and coconut water Physical Exam 2 Vital Signs: Vital Signs: Last Vital Signs Temp 98.6 F 08/18/23 07:23 Pulse 100 08/18/23 07:23 Resp 20 08/18/23 07:23 BP 119/76 08/18/23 07:23 Pulse Ox 97 08/18/23 07:23 O2 Del Method Nasal Cannula 08/18/23 07:23 O2 Flow Rate 1.5 08/18/23 07:23 FiO2 70 08/11/23 13:00 BMI result Body Mass Index 47.1 Const: General: comfortable and no acute distress O rientation/consciousness: patient oriented x3 Resp: Effort & Inspection: normal respiratory effort GI: Other: Incision clean and dry Palpation (GI): Soft to palpation, not firm, nontender and no guarding Neuro: General: patient oriented x3 Objective Data Active Medications Acetaminophen (Acetaminophen 325 Mg Tablet) 650 mg PO Q6H PRN PRN Reason: Pain, Mild (Pain Scale 1-3) Last Admin: 08/17/23 23:52 Dose: 650 mg Documented By: TRISTIAN Bisacodyl (Bisacodyl 10 Mg Supp.Rect) 10 mg [place] DAILY PRN PRN Reason: Constipation Calcium Carbonate (Calcium Carbonate 750 Mg Tab.Chew) 750 mg PO Q6H PRN PRN Reason: Heartburn Last Admin: 08/14/23 22:28 Dose: 750 mg Documented By: RANDY Comments: given for c/o heartburn Dextrose (Dextrose 50 % 25 Gm/50 Ml Syringe) 25 gm IVPUSH Q15M PRN; Protocol PRN Reason: per Hypoglycemia Standing Ord. Enoxaparin Sodium (Enoxaparin Sodium 40 Mg/0.4 Ml Syringe) 40 mg SUBCUT Q24H [facility] Last Admin: 08/17/23 07:56 Dose: 40 mg Documented By: PETE Famotidine (Famotidine 20 Mg Tablet) 20 mg PO DAILY [facility] Last Admin: 08/17/23 07:56 Dose: 20 mg Documented By: PETE Glucose (Glucose Gel 15 Gm Gel..Gram.) 15 gm PO Q15M PRN; Protocol PRN Reason: per Hypoglycemia Standing Ord. Piperacillin Sod/Tazobactam (Sod 3.375 gm/ Sodium Chloride) 50 mls @ 100 mls/hr IV Q6H [facility] Last Infusion: 08/18/23 03:42 Dose: Infused Documented By: TRISTIAN Insulin Human Lispro (Insulin Lispro 100 Unit/Ml 3 Ml Vial) 0 unit SUBCUT QIDACHS [facility]; Protocol Last Admin: 08/18/23 07:38 Dose: Not Given Documented By: GARRY Non-Admin Reason: Doesn't need coverage POC 118 Lidocaine (Lidocaine 4 % Patch Adh..Patch) 1 patch TRANSDERMA DAILY [facility]; Protocol Last Admin: 08/17/23 07:59 Dose: 1 patch Documented By: PETE Metoclopramide HCl (Metoclopramide Hcl 10 Mg/2 Ml Vial) 5 mg IVPUSH Q6H PRN PRN Reason: Nausea and Vomiting Last Admin: 08/18/23 01:00 Dose: 5 mg Documented By: TRISTIAN Pharmacy Consult (Consult Rx Parenteral Nutrition Ordering) 1 each MISCELLANE DAILY PRN PRN Reason: Consult order Sodium Chloride (0.9 % Sodium Chloride Flush 3 Ml Syringe) 3 ml IVFLUSH QSHIFT [facility] Last Admin: 08/17/23 21:00 Dose: Not Given Documented By: TRISTIAN Non-Admin Reason: IV Running Vitamin D (Cholecalciferol (Vitamin D3) 25 Mcg Tablet) 25 mcg PO DAILY [facility] Last Admin: 08/17/23 07:57 Dose: 25 mcg Documented By: PETE Labs 08/19/23 06:40 08/19/23 06:40 Labs: Laboratory Results - last 24 hr 08/16/23 08/17/23 08/17/23 19:48 10:44 11:24 MCV MCH MCHC RDW Plt Count MPV Absolute Nucleated RBC Nucleated RBC % (auto) Anion Gap Estim Creat Clear Calc Estimated GFR POC Glucose 105 77 141 H Fasting Glucose Calcium Phosphorus Magnesium 08/17/23 08/17/23 08/18/23 16:29 20:11 06:14 MCV 88.4 MCH 28.8 MCHC 32.6 RDW 14.5 Plt Count 431 H MPV 10.5 Absolute Nucleated RBC 0.000 Nucleated RBC % (auto) 0.0 Anion Gap 14 Estim Creat Clear Calc 213.4 Estimated GFR > 60 POC Glucose 153 H 117 H Fasting Glucose 121 H Calcium 8.5 Phosphorus 2.8 Magnesium 1.7 08/18/23 07:00 MCV MCH MCHC RDW Plt Count MPV Absolute Nucleated RBC Nucleated RBC % (auto) Anion Gap Estim Creat Clear Calc Estimated GFR POC Glucose 118 H Fasting Glucose Calcium Phosphorus Magnesium Procedures Date of Service Date of Service: 08/19/23 Progress Note: A&P Assessment and plan (1) Status post small bowel resection: Status: Acute Assessment and Plan: Clinically looks well Admits to some burping and hiccups Abdomen soft and benign On clear liquids Try ensure today He does not want TPN Time Spent With Patient Time: Total time managing care of this patient today ____ minutes. Quality Stroke Does the patient have a stroke diagnosis?: No VTE Prior VTE?: No VTE Risk Level:: Medical - moderate - high VTE Device Contraindication: Treatment Not Indicated VTE Drug Contraindication: Treatment Not Tolerated
[2023-08-18] MEDS: 0.9 % Sodium Chloride Flush 3 ML SYRINGE IVFLUSH ×2 (09:41→15:46)
[2023-08-18] MEDS: Famotidine 20 MG TABLET PO (09:41)
[2023-08-18] MEDS: Cholecalciferol (Vitamin D3) 25 MCG TABLET PO (09:41)
[2023-08-18] MEDS: Lidocaine 4 % Patch ADH..PATCH 1 PATCH TRANSDERMA (09:42)
[2023-08-18] MEDS: Enoxaparin Sodium 40 MG/0.4 ML SYRINGE SUBCUT (09:42)
--- NOTE | 2023-08-18 09:51 | P.PNIM_ITS ---
Subjective Subjective Date of Service: 08/18/23 Interval History: still having bms, but feels bloated Physical Exam 2 Vital Signs: Vital Signs: Last Vital Signs Temp 98.6 F 08/18/23 07:23 Pulse 100 08/18/23 07:23 Resp 20 08/18/23 07:23 BP 119/76 08/18/23 07:23 Pulse Ox 97 08/18/23 07:23 O2 Del Method Nasal Cannula 08/18/23 07:23 O2 Flow Rate 1.5 08/18/23 07:23 FiO2 70 08/11/23 13:00 BMI result Body Mass Index 47.1 Const: General: comfortable and no acute distress O rientation/consciousness: patient oriented x3 Resp: Effort & Inspection: normal respiratory effort GI: Other: Incision clean and dry Palpation (GI): Soft to palpation, not firm, nontender and no guarding Neuro: General: patient oriented x3 Objective Data Active Medications Acetaminophen (Acetaminophen 325 Mg Tablet) 650 mg PO Q6H PRN PRN Reason: Pain, Mild (Pain Scale 1-3) Last Admin: 08/17/23 23:52 Dose: 650 mg Documented By: TRISTIAN Bisacodyl (Bisacodyl 10 Mg Supp.Rect) 10 mg [place] DAILY PRN PRN Reason: Constipation Calcium Carbonate (Calcium Carbonate 750 Mg Tab.Chew) 750 mg PO Q6H PRN PRN Reason: Heartburn Last Admin: 08/14/23 22:28 Dose: 750 mg Documented By: RANDY Comments: given for c/o heartburn Dextrose (Dextrose 50 % 25 Gm/50 Ml Syringe) 25 gm IVPUSH Q15M PRN; Protocol PRN Reason: per Hypoglycemia Standing Ord. Enoxaparin Sodium (Enoxaparin Sodium 40 Mg/0.4 Ml Syringe) 40 mg SUBCUT Q24H [facility] Last Admin: 08/18/23 09:42 Dose: 40 mg Documented By: GARRY Famotidine (Famotidine 20 Mg Tablet) 20 mg PO DAILY [facility] Last Admin: 08/18/23 09:41 Dose: 20 mg Documented By: GARRY Glucose (Glucose Gel 15 Gm Gel..Gram.) 15 gm PO Q15M PRN; Protocol PRN Reason: per Hypoglycemia Standing Ord. Piperacillin Sod/Tazobactam (Sod 3.375 gm/ Sodium Chloride) 50 mls @ 100 mls/hr IV Q6H [facility] Last Admin: 08/18/23 09:39 Dose: 100 mls/hr Documented By: GARRY Insulin Human Lispro (Insulin Lispro 100 Unit/Ml 3 Ml Vial) 0 unit SUBCUT QIDACHS [facility]; Protocol Last Admin: 08/18/23 07:38 Dose: Not Given Documented By: GARRY Non-Admin Reason: Doesn't need coverage POC 118 Lidocaine (Lidocaine 4 % Patch Adh..Patch) 1 patch TRANSDERMA DAILY [facility]; Protocol Last Admin: 08/18/23 09:42 Dose: 1 patch Documented By: GARRY Metoclopramide HCl (Metoclopramide Hcl 10 Mg/2 Ml Vial) 5 mg IVPUSH Q6H PRN PRN Reason: Nausea and Vomiting Last Admin: 08/18/23 09:41 Dose: 5 mg Documented By: GARRY Pharmacy Consult (Consult Rx Parenteral Nutrition Ordering) 1 each MISCELLANE DAILY PRN PRN Reason: Consult order Sodium Chloride (0.9 % Sodium Chloride Flush 3 Ml Syringe) 3 ml IVFLUSH QSHIFT [facility] Last Admin: 08/18/23 09:41 Dose: 3 ml Documented By: GARRY Vitamin D (Cholecalciferol (Vitamin D3) 25 Mcg Tablet) 25 mcg PO DAILY [facility] Last Admin: 08/18/23 09:41 Dose: 25 mcg Documented By: GARRY Labs 08/18/23 06:14 08/18/23 06:14 Labs: Laboratory Results - last 24 hr 08/16/23 08/17/23 08/17/23 19:48 10:44 11:24 MCV MCH MCHC RDW Plt Count MPV Absolute Nucleated RBC Nucleated RBC % (auto) Anion Gap Estim Creat Clear Calc Estimated GFR POC Glucose 105 77 141 H Fasting Glucose Calcium Phosphorus Magnesium 08/17/23 08/17/23 08/18/23 16:29 20:11 06:14 MCV 88.4 MCH 28.8 MCHC 32.6 RDW 14.5 Plt Count 431 H MPV 10.5 Absolute Nucleated RBC 0.000 Nucleated RBC % (auto) 0.0 Anion Gap 14 Estim Creat Clear Calc 213.4 Estimated GFR > 60 POC Glucose 153 H 117 H Fasting Glucose 121 H Calcium 8.5 Phosphorus 2.8 Magnesium 1.7 03/20/24 07:00 MCV MCH MCHC RDW Plt Count MPV Absolute Nucleated RBC Nucleated RBC % (auto) Anion Gap Estim Creat Clear Calc Estimated GFR POC Glucose 118 H Fasting Glucose Calcium Phosphorus Magnesium Assessment and Plan (1) Abdominal pain: Status: Acute Plan 53M PMH significant for 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 Small-bowel obstruction complicated by ischemic bowel and perforation s/p surgery 08/09/23 NGT removed, having bms, tolerated clears, then vomited on full liquids, now back on clears requested tpn discontinued completed course of iv zosyn - will dc surgery following - will try ensure clear today nocturnal hypoxia overnight pulse ox showed severe hypoxia plan for sleep study tonight hypernatremia resolved hyperglycemia a1c 5.9 insulin sliding scale chayo resolved Hx of DVT and PE DVT and PE occurred in 12/2021 after increased immobilization secondary to right femur fracture holding xarelto until okay with surgery 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
[2023-08-18 11:01] LABS: Glucose, Whole Blood 120 mg/dL (60-115)
[2023-08-18 11:21] VITALS: BP 123/70; PULSE 98; RESP 18; TEMP 37.4; O2SAT 96
--- NOTE | 2023-08-18 12:17 | MHC.CLN ---
F/U PO INTAKE POOR DIET RX: C/L TPN D/C PER PT REQUEST PT RECEIVING ENSURE TID PROVIDES 720KCALS, 24G PROTEIN WITH 100% ACCEPTANCE MONITOR PO INTAKE CLOSELY AND ENCOURAGE SUPPLEMENT
--- NOTE | 2023-08-18 14:29 | MHC.CM.PN ---
Per MD rounds diet to advance today. No dc until Wednesday. Per Respiratory @ MD rounds, Patient requires a sleep study to qualify for a CPAP. An incomplete study was attempted and the patient needs to discharge with a CPAP. DP home with [facility] via BLS.
--- NOTE | 2023-08-18 14:54 | PM.EVENT ---
Event Note Date of Service: 08/19/23 Event Note: Seen on afternoon rounds Says he continues to feel well Good flatus, having BMs Tolerating good amounts of clear liquids Denies abdominal pain Trial of ensure Clinically looks well Will try to slowly advance diet tomorrow Appears comfortable Time Spent With Patient Time: Total time managing care of this patient today ____ minutes.
[2023-08-18 15:04] VITALS: BP 116/57; PULSE 102; RESP 20; TEMP 37; O2SAT 97
[2023-08-18 16:20] LABS: Glucose, Whole Blood 137 mg/dL (60-115)
[2023-08-18 19:06] VITALS: BP 125/67; PULSE 113; RESP 20; TEMP 37.2; O2SAT 96
[2023-08-18 20:12] LABS: Glucose, Whole Blood 137 mg/dL (60-115)
--- NOTE | 2023-08-18 22:42 | PC.NURSE ---
vomited large amount gastric liquids , had multiple smal loose stools and had one large liquid BM
[2023-08-18 23:02] VITALS: BP 105/67; PULSE 122; RESP 18; TEMP 37.2; O2SAT 98
[2023-08-19] VITALS (8 sets, daily range): BP systolic 106–135; BP diastolic 61–76; PULSE 69–128; RESP 16–20; TEMP 36.4–37.9; O2SAT 93–97
[2023-08-19] MEDS: Prochlorperazine Edisylate 10 MG/2 ML VIAL IVPUSH ×2 (00:54→05:15)
[2023-08-19] MEDS: Pantoprazole Sodium 40 MG/10 ML VIAL IVPUSH ×2 (00:54→17:14)
[2023-08-19] MEDS: 0.9 % Sodium Chloride Flush 3 ML SYRINGE IVFLUSH ×4 (00:57→21:33)
--- NOTE | 2023-08-19 01:23 | PC.RT ---
Pt placed on RA for Sleep Study
--- NOTE | 2023-08-19 01:38 | PC.NURSE ---
Assumed care of pt. on 08/17 @ 23:30PM and noted pt. HR sustaining 120's. Pt. was incontinent of large liquid BM. After changing and repositioning he vomited a large amount of brown bilious fluid into basin. He stated that he feels OK except for when hes repositioned he feels acid reflux come up and it irritates my stomach. MD was notified of symptoms as well as current vitals BP 105/67. Afebrile satting 95% on 1L NC. Order for IV compazine and IV protonix. Administered with good effect. Pt resting with HR fluctuating 115-120's. He is currently on room air for sleep study with sats fluctuating between 85-93%. Will continue to monitor and re-assess.
[2023-08-19] MEDS: Acetaminophen 1,000 MG/100 ML PIGGYBACK 400 MG IV (06:03)
[2023-08-19] MEDS: 0.9 % Sodium Chloride 1,000 ML 999 ML IV (06:06)
--- NOTE | 2023-08-19 06:25 | PC.NURSE ---
Pt. noted to be sustaining HR 120-130's. Pt. was on sleep study and O2 sats fluctuated between low 80's to mid 90's throughout night. Around 05:40 pt was changed for small smear of BM. Small open wound noted to right lower buttocks. Picture taken and will be sent to wound nurse. Barrier cream and foam dressing applied. Pt. warm to touch and oral temperature was 101.0. No further episodes of emesis throughout the night however pt. still complaining of acid reflux, denied pain however endorsed hunger pain feeling to his LLQ. Midline incision assessed and graham intact. IV compazine given. made aware of pt. VS and symptoms. Order for IV tylenol and NS bolus. Will continue to monitor and report to oncoming RN.
[2023-08-19 07:27] LABS: Anion Gap 16 (12-20); Blood Urea Nitrogen 14 mg/dL (9-16); Calcium 8.5 mg/dL (8.4-10.2); Carbon Dioxide 21 mmol/L (22-29); Chloride 107 mmol/L (96-108); Glucose Fasting 160 mg/dL (60-99); Magnesium 1.6 mg/dL (1.6-2.6); Potassium 3.2 mmol/L (3.3-5.1); Sodium 141 mmol/L (135-145)
[2023-08-19 07:29] LABS: Hematocrit 37.9 % (42.0-52.0); Hemoglobin 12.3 g/dl (14.0-18.0); Mean Corpuscular HGB Conc 32.5 g/dl (31.0-36.0); Mean Corpuscular Hemoglobin 28.7 pg (27.0-33.0); Mean Corpuscular Volume 88.6 fL (80.0-98.0); Mean Platelet Volume 10.8 fL (9.4-12.4); Platelet Count 527 X10*3/uL (160-400); Red Blood Count 4.28 X10*6/uL (4.60-5.80); Red Cell Distribution Width 14.8 % (11.0-16.0)
[2023-08-19 07:40] LABS: Creatinine Clr Calc Pharmacy 130.3; Estimated Glomerular Filt Rate > 60
--- NOTE | 2023-08-19 08:07 | P.PNGS_ITS ---
Subjective Subjective Date of Service: 08/20/23 Interval history: says he had vomitting overnight denies significant abdl pain has flatus and BMs Physical Exam 2 Vital Signs: Vital Signs: Last Vital Signs Temp 98.9 F 08/19/23 07:54 Pulse 86 08/19/23 07:48 Resp 18 08/19/23 07:48 BP 135/73 08/19/23 07:48 Pulse Ox 94 08/19/23 07:48 O2 Del Method Nasal Cannula 08/19/23 07:48 O2 Flow Rate 1 08/19/23 03:31 FiO2 70 08/11/23 13:00 BMI result Body Mass Index 47.1 Const: General: no acute distress Orientation/consciousness: patient oriented x3 Resp: Effort & Inspection: normal respiratory effort Cardio: Rate: tachycardic GI: Other: very obese Palpation (GI): Soft to palpation and nontender Neuro: General: patient oriented x3 Objective Data Active Medications Acetaminophen (Acetaminophen 325 Mg Tablet) 650 mg PO Q6H PRN PRN Reason: Pain, Mild (Pain Scale 1-3) Last Admin: 08/17/23 23:52 Dose: 650 mg Documented By: TRISTIAN Bisacodyl (Bisacodyl 10 Mg Supp.Rect) 10 mg [place] DAILY PRN PRN Reason: Constipation Calcium Carbonate (Calcium Carbonate 750 Mg Tab.Chew) 750 mg PO Q6H PRN PRN Reason: Heartburn Last Admin: 08/14/23 22:28 Dose: 750 mg Documented By: RANDY Comments: given for c/o heartburn Dextrose (Dextrose 50 % 25 Gm/50 Ml Syringe) 25 gm IVPUSH Q15M PRN; Protocol PRN Reason: per Hypoglycemia Standing Ord. Enoxaparin Sodium (Enoxaparin Sodium 40 Mg/0.4 Ml Syringe) 40 mg SUBCUT Q24H [facility] Last Admin: 08/18/23 09:42 Dose: 40 mg Documented By: GARRY Glucose (Glucose Gel 15 Gm Gel..Gram.) 15 gm PO Q15M PRN; Protocol PRN Reason: per Hypoglycemia Standing Ord. Insulin Human Lispro (Insulin Lispro 100 Unit/Ml 3 Ml Vial) 0 unit SUBCUT QIDACHS [facility]; Protocol Last Admin: 08/18/23 20:13 Dose: Not Given Documented By: YADIRA Non-Admin Reason: No Insulin Coverage Lidocaine (Lidocaine 4 % Patch Adh..Patch) 1 patch TRANSDERMA DAILY [facility]; Protocol Last Admin: 08/18/23 09:42 Dose: 1 patch Documented By: GARRY Pantoprazole Sodium (Pantoprazole Sodium 40 Mg/10 Ml Vial) 40 mg IVPUSH BID@0630,1630 [facility] Last Admin: 08/19/23 00:54 Dose: 40 mg Documented By: TRISTA Pharmacy Consult (Consult Rx Parenteral Nutrition Ordering) 1 each MISCELLANE DAILY PRN PRN Reason: Consult order Prochlorperazine Edisylate (Prochlorperazine Edisylate 10 Mg/2 Ml Vial) 10 mg IVPUSH Q4H PRN PRN Reason: Nausea and Vomiting Last Admin: 08/19/23 05:15 Dose: 10 mg Documented By: TRISTA Sodium Chloride (0.9 % Sodium Chloride Flush 3 Ml Syringe) 3 ml IVFLUSH QSHIFT [facility] Last Admin: 08/19/23 08:00 Dose: 3 ml Documented By: CHIDI Vitamin D (Cholecalciferol (Vitamin D3) 25 Mcg Tablet) 25 mcg PO DAILY [facility] Last Admin: 08/18/23 09:41 Dose: 25 mcg Documented By: GARRY Labs 08/20/23 06:50 08/20/23 06:50 Labs: Laboratory Results - last 24 hr 08/18/23 08/18/23 08/18/23 10:54 16:16 20:01 MCV MCH MCHC RDW Plt Count MPV Absolute Nucleated RBC Nucleated RBC % (auto) Anion Gap Estim Creat Clear Calc Estimated GFR POC Glucose 120 H 137 H 137 H Fasting Glucose Calcium Phosphorus Magnesium 08/19/23 06:40 MCV 88.6 MCH 28.7 MCHC 32.5 RDW 14.8 Plt Count 527 H MPV 10.8 Absolute Nucleated RBC 0.000 Nucleated RBC % (auto) 0.0 Anion Gap 16 Estim Creat Clear Calc 130.3 Estimated GFR > 60 POC Glucose Fasting Glucose 160 H Calcium 8.5 Phosphorus 3.0 Magnesium 1.6 Procedures Date of Service Date of Service: 08/20/23 Progress Note: A&P Assessment and plan (1) Status post small bowel resection: Status: Acute Assessment and Plan: had vomitting overnight tachycardic WBC slightly elevated abdl exam benign hoiwever, in view of tachycardia, vomitting, concern for intraabdl process - ? leak, SBO stat CT ordered plan explained to pt Time Spent With Patient Time: Total time managing care of this patient today ____ minutes. Quality Stroke Does the patient have a stroke diagnosis?: No VTE Prior VTE?: No VTE Risk Level:: Medical - moderate - high VTE Device Contraindication: Treatment Not Indicated VTE Drug Contraindication: Treatment Not Tolerated
[2023-08-19 08:10] LABS: Glucose, Whole Blood 156 mg/dL (60-115)
[2023-08-19] MEDS: iohexoL 350 MG/ML 100 ML INFUS..BTL IV (09:04)
--- NOTE | 2023-08-19 09:32 | P.PNIM_ITS ---
Subjective Subjective Date of Service: 08/19/23 Interval History: worsening abd pain, n/v Physical Exam 2 Vital Signs: Vital Signs: Last Vital Signs Temp 98.9 F 08/19/23 07:54 Pulse 86 08/19/23 07:48 Resp 18 08/19/23 07:48 BP 135/73 08/19/23 07:48 Pulse Ox 94 08/19/23 07:48 O2 Del Method Nasal Cannula 08/19/23 07:48 O2 Flow Rate 1 08/19/23 03:31 FiO2 70 08/11/23 13:00 BMI result Body Mass Index 47.1 Const: General: no acute distress Orientation/consciousness: patient oriented x3 Resp: Effort & Inspection: normal respiratory effort Cardio: Rate: tachycardic GI: Other: very obese Palpation (GI): Soft to palpation and nontender Neuro: General: patient oriented x3 Objective Data Active Medications Acetaminophen (Acetaminophen 325 Mg Tablet) 650 mg PO Q6H PRN PRN Reason: Pain, Mild (Pain Scale 1-3) Last Admin: 08/17/23 23:52 Dose: 650 mg Documented By: TRISTIAN Bisacodyl (Bisacodyl 10 Mg Supp.Rect) 10 mg [place] DAILY PRN PRN Reason: Constipation Calcium Carbonate (Calcium Carbonate 750 Mg Tab.Chew) 750 mg PO Q6H PRN PRN Reason: Heartburn Last Admin: 08/14/23 22:28 Dose: 750 mg Documented By: RANDY Comments: given for c/o heartburn Dextrose (Dextrose 50 % 25 Gm/50 Ml Syringe) 25 gm IVPUSH Q15M PRN; Protocol PRN Reason: per Hypoglycemia Standing Ord. Enoxaparin Sodium (Enoxaparin Sodium 40 Mg/0.4 Ml Syringe) 40 mg SUBCUT Q24H [facility] Last Admin: 08/18/23 09:42 Dose: 40 mg Documented By: GARRY Glucose (Glucose Gel 15 Gm Gel..Gram.) 15 gm PO Q15M PRN; Protocol PRN Reason: per Hypoglycemia Standing Ord. Insulin Human Lispro (Insulin Lispro 100 Unit/Ml 3 Ml Vial) 0 unit SUBCUT QIDACHS [facility]; Protocol Last Admin: 08/19/23 09:07 Dose: Not Given Documented By: CHIDI Non-Admin Reason: NPO Lidocaine (Lidocaine 4 % Patch Adh..Patch) 1 patch TRANSDERMA DAILY [facility]; Protocol Last Admin: 08/18/23 09:42 Dose: 1 patch Documented By: GARRY Pantoprazole Sodium (Pantoprazole Sodium 40 Mg/10 Ml Vial) 40 mg IVPUSH BID@0630,1630 [facility] Last Admin: 08/19/23 00:54 Dose: 40 mg Documented By: TRISTA Pharmacy Consult (Consult Rx Parenteral Nutrition Ordering) 1 each MISCELLANE DAILY PRN PRN Reason: Consult order Prochlorperazine Edisylate (Prochlorperazine Edisylate 10 Mg/2 Ml Vial) 10 mg IVPUSH Q4H PRN PRN Reason: Nausea and Vomiting Last Admin: 08/19/23 05:15 Dose: 10 mg Documented By: TRISTA Sodium Chloride (0.9 % Sodium Chloride Flush 3 Ml Syringe) 3 ml IVFLUSH QSHIFT [facility] Last Admin: 08/19/23 08:00 Dose: 3 ml Documented By: CHIDI Vitamin D (Cholecalciferol (Vitamin D3) 25 Mcg Tablet) 25 mcg PO DAILY [facility] Last Admin: 08/18/23 09:41 Dose: 25 mcg Documented By: GARRY Labs 08/19/23 06:40 08/19/23 06:40 Labs: Laboratory Results - last 24 hr 08/18/23 08/18/23 08/18/23 10:54 16:16 20:01 MCV MCH MCHC RDW Plt Count MPV Absolute Nucleated RBC Nucleated RBC % (auto) Anion Gap Estim Creat Clear Calc Estimated GFR POC Glucose 120 H 137 H 137 H Fasting Glucose Calcium Phosphorus Magnesium 08/19/23 08/19/23 06:40 08:06 MCV 88.6 MCH 28.7 MCHC 32.5 RDW 14.8 Plt Count 527 H MPV 10.8 Absolute Nucleated RBC 0.000 Nucleated RBC % (auto) 0.0 Anion Gap 16 Estim Creat Clear Calc 130.3 Estimated GFR > 60 POC Glucose 156 H Fasting Glucose 160 H Calcium 8.5 Phosphorus 3.0 Magnesium 1.6 Assessment and Plan (1) Abdominal pain: Status: Acute Plan 53M PMH significant for 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 Small-bowel obstruction complicated by ischemic bowel and perforation s/p surgery 08/09/23 NGT removed, having bms, tolerated clears, now vomiting and abd pain again, repeat CT with SBO vs ileus NGT replaced, NPO patient refusing TPN completed course of iv zosyn surgery following nocturnal hypoxia overnight pulse ox showed severe hypoxia follow up sleep study report hypernatremia resolved hyperglycemia a1c 5.9 insulin sliding scale chayo resolved Hx of DVT and PE DVT and PE occurred in 12/2021 after increased immobilization secondary to right femur fracture holding xarelto until okay with surgery 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
--- NOTE | 2023-08-19 09:33 | MHC.CLN ---
RE: CONSULT FOR TPN PT WITH EPISODE OF VOMITING TPN TO RE-START PER MD REVIEWED LABS DISCUSSED WITH PHARMACY DIET RX: NPO RECOMMEND TPN AT 85ML/HR TO PROVIDE 1448 KCALS , 102G PROTEIN (1.3G/KG), 306G DEXTROSE HOLD LIPIDS FOR TODAY REPLETE LYTES NEEDED
[2023-08-19 11:35] LABS: Triglycerides 109 mg/dL (<150)
[2023-08-19 11:40] LABS: Glucose, Whole Blood 150 mg/dL (60-115)
[2023-08-19] MEDS: Enoxaparin Sodium 40 MG/0.4 ML SYRINGE SUBCUT (11:57)
[2023-08-19] MEDS: Lidocaine 4 % Patch ADH..PATCH 1 PATCH TRANSDERMA (11:57)
--- NOTE | 2023-08-19 13:26 | PM.EVENT ---
Event Note Date of Service: 08/20/23 Event Note: CT scan reviewed - dilated small bowel loops and stomach consistent with partial small-bowel obstruction versus ileus Anastomotic line since patent NG tube therefore inserted this morning Patient says he feels much better - he stated that he had nausea and vomited a few times last night Says he continues to pass flatus and had bowel movements last night Denies abdominal pain Actually clinically looks well now NG tube to low wall suction TPN reordered IV fluids Johnathan Long updated Time Spent With Patient Time: Total time managing care of this patient today ____ minutes.
[2023-08-19] MEDS: Lactated Ringers 1,000 ML 80 ML IVCONT (13:57)
--- NOTE | 2023-08-19 14:20 | MHC.CM.PN ---
Per MD rounds patient is obstructed no dc today. DP home w new [facility] viaBLS.
[2023-08-19 16:40] LABS: Glucose, Whole Blood 128 mg/dL (60-115)
[2023-08-19] MEDS: Parenteral Nutrition 2,040 ML 85 ML IV (21:31)
[2023-08-19 21:33] LABS: Glucose, Whole Blood 120 mg/dL (60-115)
[2023-08-19 22:33] LABS: Hematocrit 39.2 % (42.0-52.0); Hemoglobin 12.8 g/dl (14.0-18.0); Mean Corpuscular HGB Conc 32.7 g/dl (31.0-36.0); Mean Corpuscular Hemoglobin 28.6 pg (27.0-33.0); Mean Corpuscular Volume 87.7 fL (80.0-98.0); Mean Platelet Volume 10.6 fL (9.4-12.4); Red Blood Count 4.47 X10*6/uL (4.60-5.80); Red Cell Distribution Width 14.9 % (11.0-16.0); White Blood Count 13.6 X10*3/uL (4.8-10.8)
[2023-08-19] MEDS: Lactated Ringers 500 ML 999 ML IV ×2 (22:47→23:50)
[2023-08-19 22:55] LABS: Platelet Count 505 X10*3/uL (160-400); SLIDE REVIEW MANUAL DIFF
[2023-08-19 22:56] LABS: Atypical Lymph Absolute Manual 0.3 x10*3/uL; Atypical Lymphs Percent Manual 2 % (0-6); Band Neutrophils Percent 27 % (3-5); Basophils Abs Manual 0.1 X10*3/uL (0.0-0.2); Basophils Percent Manual 1 % (0-2); Lymphocytes Absolute Manual 1.2 X10*3/uL (1.2-4.9); Lymphocytes Percent Manual 9 % (20-40); Monocytes Absolute Manual 1.5 X10*3/uL (0.1-1.2); Monocytes Percent Manual 11 % (2-11); Neutrophils Absolute Manual 10.5 X10*3/uL (2.0-8.3); Neutrophils Percent Manual 50 % (45-73)
[2023-08-19 22:57] LABS: RBC Morphology NOTED; Toxic Vacuolation PRESENT
[2023-08-19 22:58] LABS: Alanine Aminotransferase 144 U/L (0-40); Albumin Level 3.2 g/dL (3.5-5.0); Alkaline Phosphatase 74 U/L (39-117); Anion Gap 16 (12-20); Aspartate Amino Transferase 45 U/L (5-37); Bilirubin Total 0.5 mg/dL (0.0-1.0); Blood Urea Nitrogen 20 mg/dL (9-16); Calcium 9.3 mg/dL (8.4-10.2); Carbon Dioxide 23 mmol/L (22-29); Chloride 107 mmol/L (96-108); Creatinine Clr Calc Pharmacy 148.7; Estimated Glomerular Filt Rate > 60; Glucose Random 170 mg/dL (60-115); Magnesium 1.8 mg/dL (1.6-2.6); Phosphorus 2.6 mg/dL (2.7-4.5); Potassium 3.4 mmol/L (3.3-5.1); Sodium 143 mmol/L (135-145); Total Protein 7.4 g/dL (6.5-8.0)
[2023-08-19 22:59] LABS: Platelet Estimate INCREASED (NORMAL); Platelet Morphology Comment NORMAL
[2023-08-19 23:01] LABS: Lactic Acid 1.5 mmol/L (0.5-2.0)
[2023-08-19 23:04] LABS: B Type Natriuretic Peptide 44 pg/mL (<100)
[2023-08-19 23:06] LABS: Troponin-I High Sensitivity < 2.7 ng/L (<3.5-35.0)
[2023-08-20] VITALS (10 sets, daily range): BP systolic 103–129; BP diastolic 57–76; PULSE 110–161; RESP 18–22; TEMP 36.3–38.4; O2SAT 95–125; BMI 45.7
--- NOTE | 2023-08-20 00:20 | ECG_ITS ---
Test Reason : CP Blood Pressure : / mmHG Vent. Rate : 137 BPM Atrial Rate : 137 BPM P-R Int : 154 ms QRS Dur : 098 ms QT Int : 356 ms P-R-T Axes : 050 001 038 degrees QTc Int : 537 ms Sinus tachycardia with frequent Premature atrial complexes Abnormal ECG When compared with ECG of 10-AUG-2023 19:04, Sinus rhythm has replaced Junctional rhythm Referred By: Julian Greenberg Electronically Signed By:RANDY TORRES
--- NOTE | 2023-08-20 00:43 | PC.NURSE ---
Assumed care of patient at 19:00 (08/18). Pt is A&Ox4. Pt is here this admission with complicated SBO s/p ex-lap with bowel resection and anastomosis initially requiring ICU post-op, since transferred to [facility]-tele s4. Pt seen on S4 in evening, continues with obstruction versus post-op ileus as evidenced by reported nausea/vomiting of large volume emesis during the day prompting CT Abd/pelvis and requiring placement of NGT to RT nare today per nursing handoff report. On assuming care, pt's NGT canister was changed and tube patency assessed per routine care. During time of changing investigative writer noted a foul smell of the contents concerning the smell is feculent in nature. Covering Hospitalist Dr. Erasmo Valle and consulted surgeon Dr. Brasher were notified of this concern. Pt denied pain and midline abdominal incision was assessed with graham C/D/I without redness or drainage. Abdomen is soft, obese/large, round, non-tender. Pt denied n/v and pain at rest and to palpation. Initial vital signs 1900 hour were stable, though HR was noted to later be sustaining in 130's later 2100 hour with MD notified at 21:48. Patient remained asymptomatic and denied chest pain, sob, pain. Dr. Erasmo Valle notified and to bedside. Patient offered no acute complaints. Another set of vitals was obtained at 22:03, stable, afebrile. Labs including but not limited to lactic acid and BCx were ordered and obtained peripherally per MD verbal order. After labs were drawn the first of two 500ml LR boluses recommended by Dr. Brasher in collaboration with Dr. Zimmerman was initiated as ordered. CXR was also obtained. Spo2 maintained on 2L nc as was on assuming care. Breathing observed even and unlabored without distress. New TPN infusing via RT IJ triple lumen with POCs changed by MD to q6h at 21:00 and 03:00. POC 120 in evening. Patient continues on airloss bed as ordered with q2h T+R. Bed alarm on and safety measures in place. LR bolus infusing at time of handoff report given to oncoming RN at 23:00.
[2023-08-20] MEDS: Lactated Ringers 500 ML 999 ML IV ×2 (01:13→02:48)
[2023-08-20] MEDS: Piperacillin Sodium/Tazobactam 3.375 GM in 0.9 % Sodium Chloride 50 ML IV ×4 (02:07→21:52)
[2023-08-20] MEDS: Acetaminophen 1,000 MG/100 ML PIGGYBACK 400 MG IV (02:18)
[2023-08-20 03:00] LABS: Glucose, Whole Blood 167 mg/dL (60-115)
[2023-08-20] MEDS: vancomycin/NS 2,000 MG/500 ML PLAST..BAG 250 MG IV (03:02)
[2023-08-20] MEDS: Insulin Lispro 100 UNIT/ML 3 ML VIAL SUBCUT (04:33)
[2023-08-20] MEDS: Lactated Ringers 1,000 ML 125 ML IVCONT ×3 (04:33→21:52)
[2023-08-20] MEDS: Pantoprazole Sodium 40 MG/10 ML VIAL IVPUSH ×2 (06:25→15:44)
--- NOTE | 2023-08-20 07:18 | PHA.PROG ---
Admission Date/Time: August 06, 2023 19:41 Indication: SEPSIS Weight in k.9 kg Serum Creatinine - Last 168 Hours 08/14/23 08/15/23 08/15/23 06:26 06:26 06:26 Creatinine 0.69 Cancelled 0.72 08/16/23 08/17/23 08/18/23 06:03 06:02 06:14 Creatinine 0.79 0.73 0.69 08/19/23 08/19/23 06:40 22:17 Creatinine 1.13 0.99 Estimated CrCl and GFR - Last 168 Hours 08/14/23 08/15/23 08/15/23 06:26 06:26 06:26 Estim Creat Clear Calc 200.7 Cancelled 192.3 Estimated GFR > 60 Cancelled 08/15/23 08/16/23 08/17/23 06:26 06:03 06:02 Estim Creat Clear Calc 175.3 189.7 Estimated GFR > 60 > 60 > 60 08/18/23 08/19/23 08/19/23 06:14 06:40 22:17 Estim Creat Clear Calc 213.4 130.3 148.7 Estimated GFR > 60 > 60 > 60 Vancomycin Loading Dose: 2000 Current Vancomycin Dosing Regimen: 1500 Q 12H Vancomycin Monitoring using AUC goal of 400 - 600 range with trough as surrogate marker: 506 Date and Time for next Vancomycin Level to be drawn: 08/20 @ 1300 Pharmacist Comments on Vancomycin Plan: Vancomycin dosing will take advantage of [employer] as a clinical decision support tool that uses Bayesian modeling to calculate individual patient's pharmacokinetic parameters and forecast the patient's drug concentration time course with the target goal AUC 24 range of 400 - 600 mg/L/hr.
[2023-08-20 07:24] LABS: Hematocrit 35.8 % (42.0-52.0); Hemoglobin 11.9 g/dl (14.0-18.0); Mean Corpuscular HGB Conc 33.2 g/dl (31.0-36.0); Mean Corpuscular Volume 87.3 fL (80.0-98.0); Mean Platelet Volume 10.8 fL (9.4-12.4); Platelet Count 405 X10*3/uL (160-400); Red Cell Distribution Width 14.8 % (11.0-16.0); White Blood Count 11.9 X10*3/uL (4.8-10.8)
[2023-08-20 07:25] LABS: Glucose, Whole Blood 120 mg/dL (60-115)
--- NOTE | 2023-08-20 07:32 | PM.PNGS ---
Subjective Subjective Date of Service: 08/23/23 Interval history: Had large amounts of NG tube output yesterday and last night Became tachycardic last night Currently feels comfortable Says he is passing flatus Denies abdominal pain Physical Exam Vital Signs: Vital Signs: Last Vital Signs Temp 97.9 F 08/20/23 07:19 Pulse 117 H 08/20/23 07:19 Resp 22 H 08/20/23 07:19 BP 129/76 08/20/23 07:19 Pulse Ox 99 08/20/23 07:19 O2 Del Method Nasal Cannula 08/20/23 07:19 O2 Flow Rate 2 08/20/23 07:19 FiO2 70 08/11/23 13:00 BMI result Body Mass Index 45.7 Const: Other: He appears comfortable General: comfortable and no acute distress Resp: Effort & Inspection: normal respiratory effort Cardio: Rate: tachycardic GI: Palpation (GI): Soft to palpation, not firm and nontender Objective Data Active Medications Bisacodyl (Bisacodyl 10 Mg Supp.Rect) 10 mg ND DAILY PRN PRN Reason: Constipation Calcium Carbonate (Calcium Carbonate 750 Mg Tab.Chew) 750 mg PO Q6H PRN PRN Reason: Heartburn Last Admin: 08/14/23 22:28 Dose: 750 mg Documented By: RANDY Comments: given for c/o heartburn Dextrose (Dextrose 50 % 25 Gm/50 Ml Syringe) 25 gm IVPUSH Q15M PRN; Protocol PRN Reason: per Hypoglycemia Standing Ord. Enoxaparin Sodium (Enoxaparin Sodium 40 Mg/0.4 Ml Syringe) 40 mg SUBCUT Q24H [facility] Last Admin: 08/19/23 11:57 Dose: 40 mg Documented By: CHIDI Glucose (Glucose Gel 15 Gm Gel..Gram.) 15 gm PO Q15M PRN; Protocol PRN Reason: per Hypoglycemia Standing Ord. Nutrition (Parenteral) (Parenteral Nutrition) 2,040 mls @ 85 mls/hr IV .Q24H [facility]; Protocol Last Admin: 08/19/23 21:31 Dose: 85 mls/hr Documented By: BG Piperacillin Sod/Tazobactam (Sod 3.375 gm/ Sodium Chloride) 50 mls @ 100 mls/hr IV Q6H [facility] Last Admin: 08/20/23 06:26 Dose: 100 mls/hr Documented By: SAM Acetaminophen (Ofirmev) 1,000 mg in 100 mls @ 400 mls/hr IV Q6H PRN PRN Reason: fever Last Infusion: 08/20/23 03:06 Dose: Infused Documented By: SAM Lactated Ringer's (Lr) 1,000 mls @ 125 mls/hr IVCONT .Q8H [facility] Last Admin: 08/20/23 04:33 Dose: 125 mls/hr Documented By: SAM Vancomycin HCl 1,500 mg/ (Sodium Chloride) 500 mls @ 333.333 mls/hr IV Q12H [facility] Insulin Human Lispro (Insulin Lispro 100 Unit/Ml 3 Ml Vial) 0 unit SUBCUT Q6H [facility]; Protocol Last Admin: 08/20/23 04:33 Dose: 2 unit Documented By: SAM Lidocaine (Lidocaine 4 % Patch Adh..Patch) 1 patch TRANSDERMA DAILY [facility]; Protocol Last Admin: 08/19/23 11:57 Dose: 1 patch Documented By: CHIDI Pantoprazole Sodium (Pantoprazole Sodium 40 Mg/10 Ml Vial) 40 mg IVPUSH BID@0630,1630 [facility] Last Admin: 08/20/23 06:25 Dose: 40 mg Documented By: SAM Pharmacy Consult (Consult Rx Parenteral Nutrition Ordering) 1 each MISCELLANE DAILY PRN PRN Reason: Consult order Prochlorperazine Edisylate (Prochlorperazine Edisylate 10 Mg/2 Ml Vial) 10 mg IVPUSH Q4H PRN PRN Reason: Nausea and Vomiting Last Admin: 08/19/23 05:15 Dose: 10 mg Documented By: ANTOIC Sodium Chloride (0.9 % Sodium Chloride Flush 3 Ml Syringe) 3 ml IVFLUSH QSHIFT [facility] Last Admin: 08/19/23 21:33 Dose: 3 ml Documented By: JOSHUAK Labs 08/22/23 05:52 08/23/23 07:00 Labs: Laboratory Results - last 24 hr 08/19/23 08/19/23 08/19/23 06:40 08:06 11:33 MCV MCH MCHC RDW Plt Count MPV Immature Gran % (Auto) Neut % (Auto) Lymph % (Auto) [place] % (Auto) Eos % (Auto) Baso % (Auto) Lymph # (Auto) [place] # (Auto) Eos # (Auto) Baso # (Auto) Abs Immat Gran (auto) Absolute Neuts (auto) Absolute Nucleated RBC Nucleated RBC % (auto) Neutrophils % (Manual) Band Neutrophils % Lymphocytes % (Manual) Atypical Lymphs % (Man) Monocytes % (Manual) Basophils % (Manual) Abs Neuts (Manual) Lymphocytes # (Manual) Atyp Lymphs # (Manual) Monocytes # (Manual) Basophils # (Manual) Toxic Vacuolation Platelet Estimate Plt Morphology Comment RBC Morphology Smear Tech's Comments Anion Gap Estim Creat Clear Calc 130.3 Estimated GFR > 60 POC Glucose 156 H 150 H Random Glucose Lactic Acid Calcium Phosphorus Magnesium Total Bilirubin AST ALT Alkaline Phosphatase Troponin I High Sens B-Natriuretic Peptide Total Protein Albumin Triglycerides 109 08/19/23 08/19/23 08/19/23 16:32 21:08 22:17 MCV 87.7 MCH 28.6 MCHC 32.7 RDW 14.9 Plt Count 505 H MPV 10.6 Immature Gran % (Auto) Cancelled Neut % (Auto) Cancelled Lymph % (Auto) Cancelled [place] % (Auto) Cancelled Eos % (Auto) Cancelled Baso % (Auto) Cancelled Lymph # (Auto) Cancelled [place] # (Auto) Cancelled Eos # (Auto) Cancelled Baso # (Auto) Cancelled Abs Immat Gran (auto) Cancelled Absolute Neuts (auto) Cancelled Absolute Nucleated RBC 0.000 Nucleated RBC % (auto) 0.0 Neutrophils % (Manual) 50 Band Neutrophils % 27 H Lymphocytes % (Manual) 9 L Atypical Lymphs % (Man) 2 Monocytes % (Manual) 11 Basophils % (Manual) 1 Abs Neuts (Manual) 10.5 H Lymphocytes # (Manual) 1.2 Atyp Lymphs # (Manual) 0.3 Monocytes # (Manual) 1.5 H Basophils # (Manual) 0.1 Toxic Vacuolation PRESENT Platelet Estimate INCREASED Plt Morphology Comment NORMAL RBC Morphology NOTED Smear Tech's Comments MANUAL DIFF Anion Gap 16 Estim Creat Clear Calc 148.7 Estimated GFR > 60 POC Glucose 128 H 120 H Random Glucose 170 H Lactic Acid 1.5 Calcium 9.3 D Phosphorus 2.6 L Magnesium 1.8 Total Bilirubin 0.5 AST 45 H ALT 144 H Alkaline Phosphatase 74 Troponin I High Sens < 2.7 B-Natriuretic Peptide 44 Total Protein 7.4 Albumin 3.2 L Triglycerides 08/20/23 08/20/23 08/20/23 02:56 06:50 07:21 MCV 87.3 MCH 29.0 MCHC 33.2 RDW 14.8 Plt Count 405 H MPV 10.8 Immature Gran % (Auto) Neut % (Auto) Lymph % (Auto) [place] % (Auto) Eos % (Auto) Baso % (Auto) Lymph # (Auto) [place] # (Auto) Eos # (Auto) Baso # (Auto) Abs Immat Gran (auto) Absolute Neuts (auto) Absolute Nucleated RBC 0.000 Nucleated RBC % (auto) 0.0 Neutrophils % (Manual) Band Neutrophils % Lymphocytes % (Manual) Atypical Lymphs % (Man) Monocytes % (Manual) Basophils % (Manual) Abs Neuts (Manual) Lymphocytes # (Manual) Atyp Lymphs # (Manual) Monocytes # (Manual) Basophils # (Manual) Toxic Vacuolation Platelet Estimate Plt Morphology Comment RBC Morphology Smear Tech's Comments Anion Gap Estim Creat Clear Calc Estimated GFR POC Glucose 167 H 120 H Random Glucose Lactic Acid Calcium Phosphorus Magnesium Total Bilirubin AST ALT Alkaline Phosphatase Troponin I High Sens B-Natriuretic Peptide Total Protein Albumin Triglycerides Procedures Date of Service Date of Service: 08/23/23 Progress Note: A&P Assessment and plan (1) Small bowel obstruction: Status: Acute Assessment and Plan: Follow-up CT scan shows multiple dilated small bowel loops Possible ileus versus partial small-bowel obstruction Anastomosis may be tight from ischemia NG tube placed with note of large amounts of output Tachycardic likely from volume depletion Given boluses last night Currently appears comfortable Keep NG tube in place TPN Time Spent With Patient Time: Total time managing care of this patient today ____ minutes. Quality Stroke Does the patient have a stroke diagnosis?: No VTE Prior VTE?: No VTE Risk Level:: Medical - moderate - high VTE Device Contraindication: Treatment Not Indicated VTE Drug Contraindication: Treatment Not Tolerated
[2023-08-20 07:37] LABS: Anion Gap 11 (12-20); Blood Urea Nitrogen 18 mg/dL (9-16); Calcium 8.6 mg/dL (8.4-10.2); Carbon Dioxide 26 mmol/L (22-29); Chloride 107 mmol/L (96-108); Creatinine Clr Calc Pharmacy 153.9; Estimated Glomerular Filt Rate > 60; Glucose Fasting 134 mg/dL (60-99); Magnesium 1.8 mg/dL (1.6-2.6); Phosphorus 2.5 mg/dL (2.7-4.5); Potassium 3.2 mmol/L (3.3-5.1); Sodium 141 mmol/L (135-145)
--- NOTE | 2023-08-20 07:37 | PC.NURSE ---
2300-700 : Patient met awake and alert in bed, Temp 100.2, recheck at 1222 101F, HR 131bpm, noted to be in Atrial trigeminy on Heart monitor, EKG obtained, reported to Venita Valle. Plan for patient sepsis treatment with Zosyn and Vancomycin, and IV Tylenol 1000mg. These administered later than ordered due to pysis failure, CNL Amie Rg and compressor house operator informed of system failure. NG insitu on low suction, sluggish, received verbal order from Dr Venita Valle to flush, 1200mls stool colored fluids drained. Patient maintains position on back only, refuses to reposition otherwise, educated.
--- NOTE | 2023-08-20 07:59 | PM.EVENT ---
Event Note Date of Service: 08/20/23 Event Note: 10:30 pm - Contacted to notify patient was having significant symptoms tachycardia. Treatment with 2 boluses of saline were given. Blood workup was obtained and showed no significant electrolyte imbalances or lactic acidosis. Blood cultures are pending 12:20 am - patient developed fever, 101.2. Empiric IV antibiotic therapy with Zosyn and vancomycin was initiated. TPN stopped. Tachycardia has improved overnight. Time Spent With Patient Time: Total time managing care of this patient today ____ minutes.
[2023-08-20] MEDS: Enoxaparin Sodium 40 MG/0.4 ML SYRINGE SUBCUT (08:07)
[2023-08-20] MEDS: Lidocaine 4 % Patch ADH..PATCH 1 PATCH TRANSDERMA (08:07)
[2023-08-20] MEDS: 0.9 % Sodium Chloride Flush 3 ML SYRINGE IVFLUSH ×3 (08:08→22:08)
[2023-08-20] MEDS: Potassium Chloride/H20 10 MEQ/100 ML PIGGYBACK 100 MEQ IV ×4 (08:10→12:33)
[2023-08-20] MEDS: Lactated Ringers 1,000 ML 999 ML IV (08:34)
--- NOTE | 2023-08-20 09:37 | MHC.CLN ---
F/U PT WITH EPISODE OF VOMITING REVIEWED LABS-TRIGS WNL DISCUSSED WITH PHARMACY DIET RX: NPO RECOMMEND TPN AT 85ML/HR AND ADD 86G LIPIDS TO PROVIDE 2308 TOTAL KCALS (30KCALS/KG BASED ON CMW) , 102G PROTEIN (1.3G/KG), 306G DEXTROSE REPLETE LYTES NEEDED
--- NOTE | 2023-08-20 09:43 | HO.PM.IMPN ---
Subjective Subjective Date of Service: 08/20/23 Interval History: Patient with tachycardia and fever last night. Was initiated on empiric IV antibiotics and given crystalloid bolus. Large output from NG tube last night and this a.m.. Patient denies pain in further episodes of nausea or vomiting. Review of Systems All 12 review of systems negative except as noted above Cardiovascular Cardiovascular: Reports no additional cardiovascular complaints Respiratory Respiratory: Reports no additional respiratory complaints Genitourinary Genitourinary: Reports no additional male genitourinary complaints Physical Exam Vital Signs: Vital Signs: Last Vital Signs Temp 97.9 F 08/20/23 07:19 Pulse 117 H 08/20/23 07:19 Resp 22 H 08/20/23 07:19 BP 129/76 08/20/23 07:19 Pulse Ox 99 08/20/23 07:19 O2 Del Method Nasal Cannula 08/20/23 07:19 O2 Flow Rate 2 08/20/23 07:19 FiO2 70 08/11/23 13:00 BMI result Body Mass Index 45.7 Const: Other: looks well General: comfortable, no acute distress and alert Orientation/consciousness: patient oriented x3 HEENT: Other: NGT in place, some bilious output Resp: Effort & Inspection: normal respiratory effort Cardio: Rate: regular rate and tachycardic GI: Other: very obese Inspection: Yes incision (clean) Palpation (GI): Soft to palpation, not firm, nontender, no guarding and not rigid Percussion: Yes normal to percussion Skin: General skin exam: no rashes or lesions noted Neuro: General: patient oriented x3 Objective Data Active Medications Bisacodyl (Bisacodyl 10 Mg Supp.Rect) 10 mg NC DAILY PRN PRN Reason: Constipation Calcium Carbonate (Calcium Carbonate 750 Mg Tab.Chew) 750 mg PO Q6H PRN PRN Reason: Heartburn Last Admin: 08/14/23 22:28 Dose: 750 mg Documented By: RANDY Comments: given for c/o heartburn Dextrose (Dextrose 50 % 25 Gm/50 Ml Syringe) 25 gm IVPUSH Q15M PRN; Protocol PRN Reason: per Hypoglycemia Standing Ord. Enoxaparin Sodium (Enoxaparin Sodium 40 Mg/0.4 Ml Syringe) 40 mg SUBCUT Q24H [facility] Last Admin: 08/20/23 08:07 Dose: 40 mg Documented By: TRISHA Glucose (Glucose Gel 15 Gm Gel..Gram.) 15 gm PO Q15M PRN; Protocol PRN Reason: per Hypoglycemia Standing Ord. Nutrition (Parenteral) (Parenteral Nutrition) 2,040 mls @ 85 mls/hr IV .Q24H [facility]; Protocol Last Admin: 08/19/23 21:31 Dose: 85 mls/hr Documented By: BG Piperacillin Sod/Tazobactam (Sod 3.375 gm/ Sodium Chloride) 50 mls @ 100 mls/hr IV Q6H [facility] Last Infusion: 08/20/23 07:00 Dose: Infused Documented By: TRISHA Acetaminophen (Ofirmev) 1,000 mg in 100 mls @ 400 mls/hr IV Q6H PRN PRN Reason: fever Last Infusion: 08/20/23 03:06 Dose: Infused Documented By: SAM Lactated Ringer's (Lr) 1,000 mls @ 125 mls/hr IVCONT .Q8H [facility] Last Admin: 08/20/23 04:33 Dose: 125 mls/hr Documented By: SAM Vancomycin HCl 1,500 mg/ (Sodium Chloride) 500 mls @ 333.333 mls/hr IV Q12H [facility] Potassium Chloride (Potassium Chloride/H20) 10 meq in 100 mls @ 100 mls/hr IV Q1H [facility] Stop: 08/20/23 11:44 Last Admin: 08/20/23 09:31 Dose: 100 mls/hr Documented By: TRISHA Insulin Human Lispro (Insulin Lispro 100 Unit/Ml 3 Ml Vial) 0 unit SUBCUT Q6H [facility]; Protocol Last Admin: 08/20/23 08:02 Dose: Not Given Documented By: TRISHA Non-Admin Reason: No Insulin Coverage Lidocaine (Lidocaine 4 % Patch Adh..Patch) 1 patch TRANSDERMA DAILY [facility]; Protocol Last Admin: 08/20/23 08:07 Dose: 1 patch Documented By: TRISHA Pantoprazole Sodium (Pantoprazole Sodium 40 Mg/10 Ml Vial) 40 mg IVPUSH BID@0630,1630 [facility] Last Admin: 08/20/23 06:25 Dose: 40 mg Documented By: SAM Pharmacy Consult (Consult Rx Parenteral Nutrition Ordering) 1 each MISCELLANE DAILY PRN PRN Reason: Consult order Prochlorperazine Edisylate (Prochlorperazine Edisylate 10 Mg/2 Ml Vial) 10 mg IVPUSH Q4H PRN PRN Reason: Nausea and Vomiting Last Admin: 08/19/23 05:15 Dose: 10 mg Documented By: TRISTA Sodium Chloride (0.9 % Sodium Chloride Flush 3 Ml Syringe) 3 ml IVFLUSH QSHIFT [facility] Last Admin: 08/20/23 08:08 Dose: 3 ml Documented By: NYIMAT Labs 08/20/23 06:50 08/20/23 06:50 Labs: Laboratory Results - last 24 hr 08/19/23 08/19/23 08/19/23 06:40 11:33 16:32 MCV MCH MCHC RDW Plt Count MPV Immature Gran % (Auto) Neut % (Auto) Lymph % (Auto) [place] % (Auto) Eos % (Auto) Baso % (Auto) Lymph # (Auto) [place] # (Auto) Eos # (Auto) Baso # (Auto) Abs Immat Gran (auto) Absolute Neuts (auto) Absolute Nucleated RBC Nucleated RBC % (auto) Neutrophils % (Manual) Band Neutrophils % Lymphocytes % (Manual) Atypical Lymphs % (Man) Monocytes % (Manual) Basophils % (Manual) Abs Neuts (Manual) Lymphocytes # (Manual) Atyp Lymphs # (Manual) Monocytes # (Manual) Basophils # (Manual) Toxic Vacuolation Platelet Estimate Plt Morphology Comment RBC Morphology Smear Tech's Comments Anion Gap Estim Creat Clear Calc Estimated GFR POC Glucose 150 H 128 H Random Glucose Fasting Glucose Lactic Acid Calcium Phosphorus Magnesium Total Bilirubin AST ALT Alkaline Phosphatase Troponin I High Sens B-Natriuretic Peptide Total Protein Albumin Triglycerides 109 08/19/23 08/19/23 08/20/23 21:08 22:17 02:56 MCV 87.7 MCH 28.6 MCHC 32.7 RDW 14.9 Plt Count 505 H MPV 10.6 Immature Gran % (Auto) Cancelled Neut % (Auto) Cancelled Lymph % (Auto) Cancelled [place] % (Auto) Cancelled Eos % (Auto) Cancelled Baso % (Auto) Cancelled Lymph # (Auto) Cancelled [place] # (Auto) Cancelled Eos # (Auto) Cancelled Baso # (Auto) Cancelled Abs Immat Gran (auto) Cancelled Absolute Neuts (auto) Cancelled Absolute Nucleated RBC 0.000 Nucleated RBC % (auto) 0.0 Neutrophils % (Manual) 50 Band Neutrophils % 27 H Lymphocytes % (Manual) 9 L Atypical Lymphs % (Man) 2 Monocytes % (Manual) 11 Basophils % (Manual) 1 Abs Neuts (Manual) 10.5 H Lymphocytes # (Manual) 1.2 Atyp Lymphs # (Manual) 0.3 Monocytes # (Manual) 1.5 H Basophils # (Manual) 0.1 Toxic Vacuolation PRESENT Platelet Estimate INCREASED Plt Morphology Comment NORMAL RBC Morphology NOTED Smear Tech's Comments MANUAL DIFF Anion Gap 16 Estim Creat Clear Calc 148.7 Estimated GFR > 60 POC Glucose 120 H 167 H Random Glucose 170 H Fasting Glucose Lactic Acid 1.5 Calcium 9.3 D Phosphorus 2.6 L Magnesium 1.8 Total Bilirubin 0.5 AST 45 H ALT 144 H Alkaline Phosphatase 74 Troponin I High Sens < 2.7 B-Natriuretic Peptide 44 Total Protein 7.4 Albumin 3.2 L Triglycerides 08/20/23 08/20/23 06:50 07:21 MCV 87.3 MCH 29.0 MCHC 33.2 RDW 14.8 Plt Count 405 H MPV 10.8 Immature Gran % (Auto) Neut % (Auto) Lymph % (Auto) [place] % (Auto) Eos % (Auto) Baso % (Auto) Lymph # (Auto) [place] # (Auto) Eos # (Auto) Baso # (Auto) Abs Immat Gran (auto) Absolute Neuts (auto) Absolute Nucleated RBC 0.000 Nucleated RBC % (auto) 0.0 Neutrophils % (Manual) Band Neutrophils % Lymphocytes % (Manual) Atypical Lymphs % (Man) Monocytes % (Manual) Basophils % (Manual) Abs Neuts (Manual) Lymphocytes # (Manual) Atyp Lymphs # (Manual) Monocytes # (Manual) Basophils # (Manual) Toxic Vacuolation Platelet Estimate Plt Morphology Comment RBC Morphology Smear Tech's Comments Anion Gap 11 L Estim Creat Clear Calc 153.9 Estimated GFR > 60 POC Glucose 120 H Random Glucose Fasting Glucose 134 H Lactic Acid Calcium 8.6 D Phosphorus 2.5 L Magnesium 1.8 Total Bilirubin AST ALT Alkaline Phosphatase Troponin I High Sens B-Natriuretic Peptide Total Protein Albumin Triglycerides Assessment and Plan (1) Status post small bowel resection: Status: Acute (2) Small bowel obstruction: Status: Acute Plan 53M PMH significant for 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 Small-bowel obstruction complicated by ischemic bowel and perforation s/p surgery 08/09/23 NGT removed, having bms, tolerated clears, now vomiting and abd pain again, repeat CT with SBO vs ileus NGT replaced, NPO patient refusing TPN Ferbile 08/19 ; initiated vanc+zosyn ; follow cultures surgery following nocturnal hypoxia overnight pulse ox showed severe hypoxia follow up sleep study report hypernatremia resolved hyperglycemia a1c 5.9 insulin sliding scale chayo resolved Hx of DVT and PE DVT and PE occurred in 12/2021 after increased immobilization secondary to right femur fracture holding xarelto until okay with surgery 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
--- NOTE | 2023-08-20 11:21 | MHC.CM.PN ---
EMR REVIEWED, PT W/SBO, PT REMAINS NPO W/NG TUBE IN PLACE, NO PLAN FOR DC AT THIS TIME, CM WILL CONT TO FOLLOW DC NEEDS.
[2023-08-20 11:49] LABS: Glucose, Whole Blood 134 mg/dL (60-115)
--- NOTE | 2023-08-20 14:25 | PM.EVENT ---
Event Note Date of Service: 08/23/23 Event Note: Seen on afternoon rounds Feels well Denies abdominal pain Has passed some flatus Still with significant NG tube output Looks comfortable Abdomen soft Continue current care Keep NG tube in TPN PSBO may be secondary to edema of anastomotic site? Discussed with hospitalist Time Spent With Patient Time: Total time managing care of this patient today ____ minutes.
[2023-08-20] MEDS: vancomycin HCL 1,500 MG in 0.9 % Sodium Chloride 500 ML 333.33 MG IV (15:45)
--- NOTE | 2023-08-20 16:35 | HO.WOUND ---
Wound Consult: Follow up 53yr old?M admitted to [facility] [place] on 08/06/23 - See progress notes and H&P for detailed history.? Wound consult follow up for Coccyx and Left Leg wound POA.? Patient agreeable to assessment and photo documentation.? Patient was turned and repositioned - of note the patient remains on the Agility Bariatric Pulsate Bed - Appropriate airloss mattress set to 4 bars at this time. On admission the right ischium was noted for previous pressure injury and currently has re-opened - this remains present on admission as injury was noted on admission with evidence of previous full thickness tissue loss. Full thickness tissue loss reduced tissue tensel strength and leaves them at risk for future injury developement. The patients Sacrum, Coccyx and Buttock is noted for resolved MASD - this skin is noted to be intact and no open areas at this time - see photo below, continue with preventative measure such as low air loss specialty bariatric mattress, barrier cream and turning and repositioning. 08/10/23 08/20/23 Todays Assessment Etiology: ?Sacrum, Coccyx, Buttock - resolved MASD - Intact tissue continue to Off Load Pressure and apply barrier cream to protect from moisture. Left upper lateral leg - resolved - no injury noted at this time. Right Ischium / Buttocks 08/20/23 Etiology: ?Stage 2 Pressure Injury - Present on Admission Measurements: see charting for detailed measurements Wound Bed: [place] moist wound bed Drainage / Odor: small amount to serosang palacios drainage Edges: ? attached Joy wound: ? Intact No Induration, Fluctuance or Warmth noted - evidence of previous injury noted Pain: denies Goals of Treatment: ? Foam dressing to allow for autolytic healing and to protect from friction Recommendations: 1. Turn and Reposition every 2 hours and as needed for patient comfort.? Use pillows or wedges to support off loading positions. 2. Off Load all bony prominences with use of pillows and heel boots if needed.? Apply Preventative foams where needed. ? 3. Monitor for incontinence and moisture control, use barrier creams when needed for prevention and treatment. 4. Provide adequate and supplemental nutrition.? 5. Continue low air loss mattress Bariatric bed. 6. Buttock, Sacrum and Coccyx - Off Load Pressure - Barrier cream twice daily to protect from moisture and friction. 7. Right Ischium - Cleanse with Ph balance wipe, pay dry. Apply barrier cream, cover with foam dressing. Change every other day and PRN for soiling. Re-consult wound care Nurse for wound deterioration or wound changes.
[2023-08-20 20:04] LABS: Glucose, Whole Blood 133 mg/dL (60-115)
[2023-08-20] MEDS: Parenteral Nutrition 2,040 ML 85 ML IV (22:01)
[2023-08-21 03:05] VITALS: BP 137/64; PULSE 120; RESP 18; TEMP 37.7; O2SAT 97
[2023-08-21 03:13] LABS: Glucose, Whole Blood 182 mg/dL (60-115)
[2023-08-21] MEDS: Piperacillin Sodium/Tazobactam 3.375 GM in 0.9 % Sodium Chloride 50 ML IV ×4 (04:07→21:22)
[2023-08-21] MEDS: Insulin Lispro 100 UNIT/ML 3 ML VIAL SUBCUT ×4 (04:10→21:25)
[2023-08-21] MEDS: Lactated Ringers 1,000 ML 125 ML IVCONT ×3 (04:11→21:13)
[2023-08-21] MEDS: vancomycin HCL 1,500 MG in 0.9 % Sodium Chloride 500 ML 333.33 MG IV ×2 (05:03→14:44)
[2023-08-21 05:25] VITALS: BMI 46.2
[2023-08-21] MEDS: Acetaminophen 1,000 MG/100 ML PIGGYBACK 400 MG IV (06:48)
[2023-08-21] MEDS: Pantoprazole Sodium 40 MG/10 ML VIAL IVPUSH ×2 (06:50→16:16)
[2023-08-21 06:55] LABS: Hematocrit 33.4 % (42.0-52.0); Hemoglobin 10.8 g/dl (14.0-18.0); Mean Corpuscular HGB Conc 32.3 g/dl (31.0-36.0); Mean Corpuscular Hemoglobin 28.7 pg (27.0-33.0); Mean Corpuscular Volume 88.8 fL (80.0-98.0); Mean Platelet Volume 10.3 fL (9.4-12.4); Platelet Count 521 X10*3/uL (160-400); Red Blood Count 3.76 X10*6/uL (4.60-5.80); Red Cell Distribution Width 14.8 % (11.0-16.0); White Blood Count 8.5 X10*3/uL (4.8-10.8)
[2023-08-21 07:10] LABS: Glucose, Whole Blood 163 mg/dL (60-115)
[2023-08-21 07:19] LABS: Anion Gap 12 (12-20); Blood Urea Nitrogen 17 mg/dL (9-16); Calcium 8.1 mg/dL (8.4-10.2); Carbon Dioxide 23 mmol/L (22-29); Chloride 110 mmol/L (96-108); Creatinine Clr Calc Pharmacy 139.9; Estimated Glomerular Filt Rate > 60; Glucose Random 188 mg/dL (60-115); Magnesium 1.9 mg/dL (1.6-2.6); Potassium 3.3 mmol/L (3.3-5.1); Sodium 142 mmol/L (135-145)
[2023-08-21 07:26] LABS: Atypical Lymph Absolute Manual 0.3 x10*3/uL; Atypical Lymphs Percent Manual 4 % (0-6); Band Neutrophils Percent 12 % (3-5); Lymphocytes Absolute Manual 1.2 X10*3/uL (1.2-4.9); Lymphocytes Percent Manual 14 % (20-40); Monocytes Absolute Manual 1.1 X10*3/uL (0.1-1.2); Monocytes Percent Manual 13 % (2-11); Neutrophils Absolute Manual 5.9 X10*3/uL (2.0-8.3); Neutrophils Percent Manual 57 % (45-73)
[2023-08-21 07:31] LABS: Hypochromasia 1+ (5-14) /OIF; Platelet Estimate INCREASED (NORMAL); Platelet Morphology Comment NOTED; Polychromasia 1+ (0-2) /OIF; RBC Morphology NOTED; Schistocytes 1+ (0-2) /OIF
[2023-08-21 07:32] LABS: Large Platelet PRESENT
[2023-08-21 07:43] VITALS: BP 118/63; PULSE 110; RESP 18; TEMP 37.6; O2SAT 96
[2023-08-21] MEDS: Enoxaparin Sodium 40 MG/0.4 ML SYRINGE SUBCUT (08:04)
[2023-08-21] MEDS: Lidocaine 4 % Patch ADH..PATCH 1 PATCH TRANSDERMA (08:09)
[2023-08-21] MEDS: 0.9 % Sodium Chloride Flush 3 ML SYRINGE IVFLUSH ×3 (08:09→21:27)
--- NOTE | 2023-08-21 09:47 | P.PNIM_ITS ---
Subjective Subjective Date of Service: 08/21/23 Interval History: No significant nursing events overnight. NG tube with significant output since yesterday. Patient feels well and denies any abdominal discomfort. Review of Systems All 13 review of systems negative except as noted in HPI Cardiovascular Cardiovascular: Reports no additional cardiovascular complaints Respiratory Respiratory: Reports no additional respiratory complaints Genitourinary Genitourinary: Reports no additional male genitourinary complaints Physical Exam 2 Vital Signs: Vital Signs: Last Vital Signs Temp 99.6 F 08/21/23 07:43 Pulse 110 H 08/21/23 07:43 Resp 18 08/21/23 07:43 BP 118/63 08/21/23 07:43 Pulse Ox 96 08/21/23 07:43 O2 Del Method Room Air 08/21/23 07:43 O2 Flow Rate 2 08/21/23 03:05 FiO2 70 08/11/23 13:00 BMI result Body Mass Index 46.2 Const: General: comfortable and no acute distress O rientation/consciousness: patient oriented x3 HEENT: Other: NG tube in place with bilious output Resp: Effort & Inspection: normal respiratory effort Cardio: Rate: tachycardic Rhythm: regular rhythm Heart sounds: S1 normal heart sound present and S2 normal heart sound present GI: Other: Incision present, clean, abdomen soft, no guarding, no rigidity Inspection: Yes obesity Neuro: General: patient oriented x3 Objective Data Active Medications Bisacodyl (Bisacodyl 10 Mg Supp.Rect) 10 mg SD DAILY PRN PRN Reason: Constipation Calcium Carbonate (Calcium Carbonate 750 Mg Tab.Chew) 750 mg PO Q6H PRN PRN Reason: Heartburn Last Admin: 08/14/23 22:28 Dose: 750 mg Documented By: RANDY Comments: given for c/o heartburn Dextrose (Dextrose 50 % 25 Gm/50 Ml Syringe) 25 gm IVPUSH Q15M PRN; Protocol PRN Reason: per Hypoglycemia Standing Ord. Enoxaparin Sodium (Enoxaparin Sodium 40 Mg/0.4 Ml Syringe) 40 mg SUBCUT Q24H [facility] Last Admin: 08/21/23 08:04 Dose: 40 mg Documented By: AL Glucose (Glucose Gel 15 Gm Gel..Gram.) 15 gm PO Q15M PRN; Protocol PRN Reason: per Hypoglycemia Standing Ord. Piperacillin Sod/Tazobactam (Sod 3.375 gm/ Sodium Chloride) 50 mls @ 100 mls/hr IV Q6H [facility] Last Infusion: 08/21/23 09:11 Dose: Infused Documented By: AL Acetaminophen ([facility]) 1,000 mg in 100 mls @ 400 mls/hr IV Q6H PRN PRN Reason: fever Last Infusion: 08/21/23 07:15 Dose: Infused Documented By: MONICA Lactated Ringer's (Lr) 1,000 mls @ 125 mls/hr IVCONT .Q8H [facility] Last Admin: 08/21/23 04:11 Dose: 125 mls/hr Documented By: MONICA Vancomycin HCl 1,500 mg/ (Sodium Chloride) 500 mls @ 333.333 mls/hr IV Q12H [facility] Last Infusion: 08/21/23 06:37 Dose: Infused Documented By: MONICA Nutrition (Parenteral) (Parenteral Nutrition) 2,040 mls @ 85 mls/hr IV .Q24H [facility]; Protocol Stop: 08/21/23 20:59 Last Admin: 08/20/23 22:01 Dose: 85 mls/hr Documented By: MONICA Insulin Human Lispro (Insulin Lispro 100 Unit/Ml 3 Ml Vial) 0 unit SUBCUT Q6H [facility]; Protocol Last Admin: 08/21/23 08:04 Dose: 2 unit Documented By: AL Lidocaine (Lidocaine 4 % Patch Adh..Patch) 1 patch TRANSDERMA DAILY [facility]; Protocol Last Admin: 08/21/23 08:09 Dose: 1 patch Documented By: AL Pantoprazole Sodium (Pantoprazole Sodium 40 Mg/10 Ml Vial) 40 mg IVPUSH BID@0630,1630 [facility] Last Admin: 08/21/23 06:50 Dose: 40 mg Documented By: MONICA Pharmacy Consult (Consult Rx Parenteral Nutrition Ordering) 1 each MISCELLANE DAILY PRN PRN Reason: Consult order Prochlorperazine Edisylate (Prochlorperazine Edisylate 10 Mg/2 Ml Vial) 10 mg IVPUSH Q4H PRN PRN Reason: Nausea and Vomiting Last Admin: 08/19/23 05:15 Dose: 10 mg Documented By: HO.ANTOIC Sodium Chloride (0.9 % Sodium Chloride Flush 3 Ml Syringe) [facility] Last Admin: 08/21/23 08:09 Dose: 3 ml Documented By: AL Labs 08/21/23 06:02 08/21/23 06:02 Labs: Laboratory Results - last 24 hr 08/20/23 08/20/23 08/21/23 11:14 19:59 03:08 MCV MCH MCHC RDW Plt Count MPV Immature Gran % (Auto) Neut % (Auto) Lymph % (Auto) [place] % (Auto) Eos % (Auto) Baso % (Auto) Lymph # (Auto) [place] # (Auto) Eos # (Auto) Baso # (Auto) Abs Immat Gran (auto) Absolute Neuts (auto) Absolute Nucleated RBC Nucleated RBC % (auto) Neutrophils % (Manual) Band Neutrophils % Lymphocytes % (Manual) Atypical Lymphs % (Man) Monocytes % (Manual) Abs Neuts (Manual) Lymphocytes # (Manual) Atyp Lymphs # (Manual) Monocytes # (Manual) Platelet Estimate Large Platelets Plt Morphology Comment RBC Morphology Polychromasia Hypochromasia Schistocytes Anion Gap Estim Creat Clear Calc Estimated GFR POC Glucose 134 H 133 H 182 H Random Glucose Calcium Phosphorus Magnesium 08/21/23 08/21/23 06:02 07:05 MCV 88.8 MCH 28.7 MCHC 32.3 RDW 14.8 Plt Count 521 H D MPV 10.3 Immature Gran % (Auto) Cancelled Neut % (Auto) Cancelled Lymph % (Auto) Cancelled Finney % (Auto) Cancelled Eos % (Auto) Cancelled Baso % (Auto) Cancelled Lymph # (Auto) Cancelled [place] # (Auto) Cancelled Eos # (Auto) Cancelled Baso # (Auto) Cancelled Abs Immat Gran (auto) Cancelled Absolute Neuts (auto) Cancelled Absolute Nucleated RBC 0.000 Nucleated RBC % (auto) 0.0 Neutrophils % (Manual) 57 Band Neutrophils % 12 H Lymphocytes % (Manual) 14 L Atypical Lymphs % (Man) 4 Monocytes % (Manual) 13 H Abs Neuts (Manual) 5.9 Lymphocytes # (Manual) 1.2 Atyp Lymphs # (Manual) 0.3 Monocytes # (Manual) 1.1 Platelet Estimate INCREASED Large Platelets PRESENT Plt Morphology Comment NOTED RBC Morphology NOTED Polychromasia 1+ (0-2) Hypochromasia 1+ (5-14) Schistocytes 1+ (0-2) Anion Gap 12 Estim Creat Clear Calc 139.9 Estimated GFR > 60 POC Glucose 163 H Random Glucose 188 H Calcium 8.1 L Phosphorus 3.0 Magnesium 1.9 Microbiology Microbiology Results: Microbiology 08/19/23 22:17 Blood Culture - Preliminary Blood - Venous No growth after 24 hours. 08/19/23 22:17 Blood Culture - Preliminary Blood - Venous No growth after 24 hours. 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 Small-bowel obstruction complicated by ischemic bowel and perforation s/p surgery 08/09/23 NGT removed, having bms, tolerated clears, now vomiting and abd pain again, repeat CT with SBO vs ileus NGT replaced, NPO patient refusing TPN Ferbile 08/19 ; initiated vanc+zosyn ; follow cultures surgery following nocturnal hypoxia overnight pulse ox showed severe hypoxia follow up sleep study report hypernatremia resolved hyperglycemia a1c 5.9 insulin sliding scale chayo resolved Hx of DVT and PE DVT and PE occurred in 12/2021 after increased immobilization secondary to right femur fracture holding xarelto until okay with surgery 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
[2023-08-21 10:57] LABS: Albumin Level 2.6 g/dL (3.5-5.0)
[2023-08-21 11:05] VITALS: BP 119/71; PULSE 105; RESP 18; TEMP 36.7; O2SAT 94
--- NOTE | 2023-08-21 11:39 | P.PNGS_ITS ---
Subjective Subjective Date of Service: 08/21/23 Interval history: pt doing ok - complaining of a lot of drainage from his incision - yellowish. not nauseated says passing gas Physical Exam 2 Vital Signs: Vital Signs: Last Vital Signs Temp 98.1 F 08/21/23 11:05 Pulse 105 H 08/21/23 11:05 Resp 18 08/21/23 11:05 BP 119/71 08/21/23 11:05 Pulse Ox 94 08/21/23 11:05 O2 Del Method Room Air 08/21/23 11:05 O2 Flow Rate 2 08/21/23 03:05 FiO2 70 08/11/23 13:00 BMI result Body Mass Index 46.2 Const: General: cooperative, comfortable and no acute distress Resp: Effort & Inspection: normal respiratory effort and able to speak in complete sentences Auscultation: clear to auscultation bilaterally Cardio: Rate: regular rate Rhythm: regular rhythm GI: Other: abdomen obese but soft and nontender and incision area looks good - dressings saturated with serous fluid but with pushing on incision not much fluid coming out . midline area is intact Objective Data Active Medications Bisacodyl (Bisacodyl 10 Mg Supp.Rect) 10 mg [place] DAILY PRN PRN Reason: Constipation Calcium Carbonate (Calcium Carbonate 750 Mg Tab.Chew) 750 mg PO Q6H PRN PRN Reason: Heartburn Last Admin: 08/14/23 22:28 Dose: 750 mg Documented By: RANDY Comments: given for c/o heartburn Dextrose (Dextrose 50 % 25 Gm/50 Ml Syringe) 25 gm IVPUSH Q15M PRN; Protocol PRN Reason: per Hypoglycemia Standing Ord. Enoxaparin Sodium (Enoxaparin Sodium 40 Mg/0.4 Ml Syringe) 40 mg SUBCUT Q24H [facility] Last Admin: 08/21/23 08:04 Dose: 40 mg Documented By: AL Glucose (Glucose Gel 15 Gm Gel..Gram.) 15 gm PO Q15M PRN; Protocol PRN Reason: per Hypoglycemia Standing Ord. Piperacillin Sod/Tazobactam (Sod 3.375 gm/ Sodium Chloride) 50 mls @ 100 mls/hr IV Q6H [facility] Last Infusion: 08/21/23 09:11 Dose: Infused Documented By: AL Acetaminophen (Ofirmev) 1,000 mg in 100 mls @ 400 mls/hr IV Q6H PRN PRN Reason: fever Last Infusion: 08/21/23 07:15 Dose: Infused Documented By: MONICA Lactated Ringer's (Lr) 1,000 mls @ 125 mls/hr IVCONT .Q8H [facility] Last Admin: 08/21/23 11:26 Dose: 125 mls/hr Documented By: AL Vancomycin HCl 1,500 mg/ (Sodium Chloride) 500 mls @ 333.333 mls/hr IV Q12H [facility] Last Infusion: 08/21/23 06:37 Dose: Infused Documented By: MONICA Nutrition (Parenteral) (Parenteral Nutrition) 2,040 mls @ 85 mls/hr IV .Q24H [facility]; Protocol Stop: 08/21/23 20:59 Last Admin: 08/20/23 22:01 Dose: 85 mls/hr Documented By: MONICA Insulin Human Lispro (Insulin Lispro 100 Unit/Ml 3 Ml Vial) 0 unit SUBCUT Q6H [facility]; Protocol Last Admin: 08/21/23 08:04 Dose: 2 unit Documented By: AL Lidocaine (Lidocaine 4 % Patch Adh..Patch) 1 patch TRANSDERMA DAILY [facility]; Protocol Last Admin: 08/21/23 08:09 Dose: 1 patch Documented By: AL Pantoprazole Sodium (Pantoprazole Sodium 40 Mg/10 Ml Vial) 40 mg IVPUSH BID@0630,1630 [facility] Last Admin: 08/21/23 06:50 Dose: 40 mg Documented By: MONICA Pharmacy Consult (Consult Rx Parenteral Nutrition Ordering) 1 each MISCELLANE DAILY PRN PRN Reason: Consult order Prochlorperazine Edisylate (Prochlorperazine Edisylate 10 Mg/2 Ml Vial) 10 mg IVPUSH Q4H PRN PRN Reason: Nausea and Vomiting Last Admin: 08/19/23 05:15 Dose: 10 mg Documented By: ANTMIKE Sodium Chloride (0.9 % Sodium Chloride Flush 3 Ml Syringe) 3 ml IVFLUSH QSHIFT [facility] Last Admin: 08/21/23 08:09 Dose: 3 ml Documented By: AL Labs 08/21/23 06:02 08/21/23 06:02 Labs: Laboratory Results - last 24 hr 08/20/23 08/20/23 08/21/23 11:14 19:59 03:08 MCV MCH MCHC RDW Plt Count MPV Immature Gran % (Auto) Neut % (Auto) Lymph % (Auto) [place] % (Auto) Eos % (Auto) Baso % (Auto) Lymph # (Auto) [place] # (Auto) Eos # (Auto) Baso # (Auto) Abs Immat Gran (auto) Absolute Neuts (auto) Absolute Nucleated RBC Nucleated RBC % (auto) Neutrophils % (Manual) Band Neutrophils % Lymphocytes % (Manual) Atypical Lymphs % (Man) Monocytes % (Manual) Abs Neuts (Manual) Lymphocytes # (Manual) Atyp Lymphs # (Manual) Monocytes # (Manual) Platelet Estimate Large Platelets Plt Morphology Comment RBC Morphology Polychromasia Hypochromasia Schistocytes Anion Gap Estim Creat Clear Calc Estimated GFR POC Glucose 134 H 133 H 182 H Random Glucose Calcium Phosphorus Magnesium Albumin 08/21/23 08/21/23 06:02 07:05 MCV 88.8 MCH 28.7 MCHC 32.3 RDW 14.8 Plt Count 521 H D MPV 10.3 Immature Gran % (Auto) Cancelled Neut % (Auto) Cancelled Lymph % (Auto) Cancelled [place] % (Auto) Cancelled Eos % (Auto) Cancelled Baso % (Auto) Cancelled Lymph # (Auto) Cancelled [place] # (Auto) Cancelled Eos # (Auto) Cancelled Baso # (Auto) Cancelled Abs Immat Gran (auto) Cancelled Absolute Neuts (auto) Cancelled Absolute Nucleated RBC 0.000 Nucleated RBC % (auto) 0.0 Neutrophils % (Manual) 57 Band Neutrophils % 12 H Lymphocytes % (Manual) 14 L Atypical Lymphs % (Man) 4 Monocytes % (Manual) 13 H Abs Neuts (Manual) 5.9 Lymphocytes # (Manual) 1.2 Atyp Lymphs # (Manual) 0.3 Monocytes # (Manual) 1.1 Platelet Estimate INCREASED Large Platelets PRESENT Plt Morphology Comment NOTED RBC Morphology NOTED Polychromasia 1+ (0-2) Hypochromasia 1+ (5-14) Schistocytes 1+ (0-2) Anion Gap 12 Estim Creat Clear Calc 139.9 Estimated GFR > 60 POC Glucose 163 H Random Glucose 188 H Calcium 8.1 L Phosphorus 3.0 Magnesium 1.9 Albumin 2.6 L Microbiology Microbiology Results: Microbiology 08/19/23 22:17 Blood Culture - Preliminary Blood - Venous No growth after 24 hours. 08/19/23 22:17 Blood Culture - Preliminary Blood - Venous No growth after 24 hours. Procedures Date of Service Date of Service: 08/21/23 Progress Note: A&P Assessment and plan (1) Ischemic bowel disease: Status: Acute Assessment and Plan: Pt s/p SBR for ischemic bowel and doing well so far - ng not putting out much and getting tpn. will trial NG clamp and see how he does with residual checks cover the midline area and observe drainage - may need to open up some graham to allow for drainage and packing if more continued draining med team managing other issues (2) Status post small bowel resection: Status: Acute Time Spent With Patient Time: Total time managing care of this patient today ____ minutes. Quality Stroke Does the patient have a stroke diagnosis?: No VTE Prior VTE?: No VTE Risk Level:: Medical - moderate - high VTE Device Contraindication: Treatment Not Indicated VTE Drug Contraindication: N/A - Med Ordered
--- NOTE | 2023-08-21 11:43 | PC.NURSE ---
At approx 1020, nurse called into pt room by [employer]ADER[employer]IP RECRUITER to assess surgical incision and graham because LEADERSHIP RECRUITER reported leakage from surgical site. RN assessed surgical incision and noticed palacios/light brown colored drainage from incision. Absorbent gauze and ABD pads applied to abdomen. Dr. Chase notified via tigertext at [phone]. Plan of care ongoing.
--- NOTE | 2023-08-21 12:30 | PC.NURSE ---
Addendum entered by Megha Carranza RN 08/21/23 19:00: NGT connected to intermittent suction at approx 1620. Assessed for N/V - no complaints for 4 hour interval. Assessed output at approx 1830. No output in collection container. Suction turned off and NGT clamped. Oncoming RN aware of plan. Original Note: NGT clamped at 1210 per MD verbal order at bedside. Due to check residual in 4 hours to assess need per communication order.
[2023-08-21 15:15] VITALS: BP 132/76; PULSE 54; RESP 20; TEMP 36.9; O2SAT 97
[2023-08-21 15:30] LABS: Glucose, Whole Blood 156 mg/dL (60-115)
[2023-08-21 19:30] VITALS: BP 136/78; PULSE 102; RESP 18; TEMP 37.2; O2SAT 97
[2023-08-21 19:48] LABS: Glucose, Whole Blood 152 mg/dL (60-115)
[2023-08-21] MEDS: Parenteral Nutrition 2,040 ML 85 ML IV (21:19)
[2023-08-21 23:12] VITALS: BP 113/79; PULSE 110; RESP 20; TEMP 37.5; O2SAT 99
[2023-08-22] MEDS: Piperacillin Sodium/Tazobactam 3.375 GM in 0.9 % Sodium Chloride 50 ML IV ×4 (02:01→18:20)
[2023-08-22 03:25] VITALS: BP 116/67; PULSE 104; RESP 20; TEMP 36.3; O2SAT 98
[2023-08-22] MEDS: vancomycin HCL 1,500 MG in 0.9 % Sodium Chloride 500 ML 333.33 MG IV (03:33)
[2023-08-22] MEDS: Insulin Lispro 100 UNIT/ML 3 ML VIAL SUBCUT ×3 (03:36→16:41)
[2023-08-22 03:59] LABS: Glucose, Whole Blood 174 mg/dL (60-115)
[2023-08-22 05:53] VITALS: BMI 46.5
[2023-08-22 06:43] LABS: Basophils Percent Auto 0.3 % (0-2); Eosinophils Absolute Auto 0.1 X10*3/uL (0.0-0.4); Eosinophils Percent Auto 0.9 % (0-4); Hemoglobin 10.4 g/dl (14.0-18.0); Imm Gran Abs Auto 0.13 X10*3/uL (0.00-0.03); Imm Gran Pct Auto 1.5 % (0.0-0.4); Lymphocytes Absolute Auto 3.3 X10*3/uL (1.2-4.9); Lymphocytes Percent Auto 38.3 % (20-40); MANUAL DIFF FLAG SCAN; Mean Corpuscular HGB Conc 31.5 g/dl (31.0-36.0); Mean Corpuscular Hemoglobin 28.3 pg (27.0-33.0); Mean Corpuscular Volume 89.7 fL (80.0-98.0); Mean Platelet Volume 10.4 fL (9.4-12.4); Monocytes Absolute Auto 0.2 X10*3/uL (0.1-1.2); Monocytes Percent Auto 2.7 % (2-11); Neutrophils Absolute Auto 4.8 x10*3/uL (2.0-8.3); Neutrophils Percent Auto 56.3 % (45-73); Platelet Count 488 X10*3/uL (160-400); Red Blood Count 3.68 X10*6/uL (4.60-5.80); Red Cell Distribution Width 14.8 % (11.0-16.0); SCAN SMEAR FLAG 1; White Blood Count 8.6 X10*3/uL (4.8-10.8)
[2023-08-22 06:54] LABS: Anion Gap 11 (12-20); Blood Urea Nitrogen 13 mg/dL (9-16); Carbon Dioxide 22 mmol/L (22-29); Chloride 114 mmol/L (96-108); Creatinine Clr Calc Pharmacy 184.8; Estimated Glomerular Filt Rate > 60; Glucose Random 165 mg/dL (60-115); Potassium 3.4 mmol/L (3.3-5.1); Sodium 144 mmol/L (135-145)
[2023-08-22 06:56] LABS: Creatinine Clr Calc Pharmacy 169.8; Estimated Glomerular Filt Rate > 60; Magnesium 1.8 mg/dL (1.6-2.6); Phosphorus 3.1 mg/dL (2.7-4.5)
[2023-08-22 07:15] LABS: SLIDE REVIEW VERIFIED
[2023-08-22 07:37] LABS: Glucose, Whole Blood 175 mg/dL (60-115)
[2023-08-22 08:00] VITALS: BP 117/61; PULSE 97; RESP 16; TEMP 36.6; O2SAT 96
[2023-08-22 08:43] LABS: Albumin Level 2.3 g/dL (3.5-5.0)
[2023-08-22] MEDS: Enoxaparin Sodium 40 MG/0.4 ML SYRINGE SUBCUT (09:37)
[2023-08-22] MEDS: 0.9 % Sodium Chloride Flush 3 ML SYRINGE IVFLUSH ×2 (09:38→16:43)
[2023-08-22] MEDS: Lidocaine 4 % Patch ADH..PATCH 1 PATCH TRANSDERMA (09:45)
[2023-08-22 11:58] LABS: Glucose, Whole Blood 156 mg/dL (60-115)
[2023-08-22 12:00] VITALS: BP 134/78; PULSE 93; RESP 18; TEMP 36.7; O2SAT 97
--- NOTE | 2023-08-22 13:41 | HO.PM.IMPN ---
Subjective Subjective Date of Service: 08/22/23 Interval History: Resting comfortably, offers no acute complaints having bowel movements , no nausea, no vomiting, no abdominal pain, NG tube clamped, receiving IV TPN. No recurrent fevers, no chills, no acute events overnight. Review of Systems All other system reviewed and negative. Physical Exam Vital Signs: Vital Signs: Last Vital Signs Temp 98.1 F 08/22/23 12:00 Pulse 93 08/22/23 12:00 Resp 18 08/22/23 12:00 BP 134/78 08/22/23 12:00 Pulse Ox 97 08/22/23 12:00 O2 Del Method Room Air 08/22/23 12:00 O2 Flow Rate 2 08/21/23 03:05 FiO2 70 08/11/23 13:00 BMI result Body Mass Index 46.5 Const: Other: General awake alert, resting comfortably in no acute distress. NG tube clamped Neck no JVD. CVS regular rate rhythm, Respiratory lungs clear to auscultation, no respiratory distress, no wheeze, no rhonchi. Gastrointestinal dressing to mid abdomen, no drainage noted from incision site, graham in place , bowel sounds audible, no guarding , no rigidity. Extremities no edema. Neuro non focal Skin no rash Psych appropriate affect Objective Data Active Medications Bisacodyl (Bisacodyl 10 Mg Supp.Rect) 10 mg [place] DAILY PRN PRN Reason: Constipation Calcium Carbonate (Calcium Carbonate 750 Mg Tab.Chew) 750 mg PO Q6H PRN PRN Reason: Heartburn Last Admin: 08/14/23 22:28 Dose: 750 mg Documented By: RANDY Comments: given for c/o heartburn Dextrose (Dextrose 50 % 25 Gm/50 Ml Syringe) 25 gm IVPUSH Q15M PRN; Protocol PRN Reason: per Hypoglycemia Standing Ord. Enoxaparin Sodium (Enoxaparin Sodium 40 Mg/0.4 Ml Syringe) 40 mg SUBCUT Q24H [facility] Last Admin: 08/22/23 09:37 Dose: 40 mg Documented By: AL Glucose (Glucose Gel 15 Gm Gel..Gram.) 15 gm PO Q15M PRN; Protocol PRN Reason: per Hypoglycemia Standing Ord. Piperacillin Sod/Tazobactam (Sod 3.375 gm/ Sodium Chloride) 50 mls @ 100 mls/hr IV Q6H [facility] Last Infusion: 08/22/23 09:46 Dose: Infused Documented By: AL Acetaminophen (Ofirmev) 1,000 mg in 100 mls @ 400 mls/hr IV Q6H PRN PRN Reason: fever Last Infusion: 08/21/23 07:15 Dose: Infused Documented By: MONICA Nutrition (Parenteral) (Parenteral Nutrition) 2,040 mls @ 85 mls/hr IV .Q24H [facility]; Protocol Stop: 08/22/23 20:59 Last Admin: 08/21/23 21:19 Dose: 85 mls/hr Documented By: MONICA Nutrition (Parenteral) (Parenteral Nutrition) 2,040 mls @ 85 mls/hr IV .Q24H [facility]; Protocol Stop: 08/23/23 20:59 Insulin Human Lispro (Insulin Lispro 100 Unit/Ml 3 Ml Vial) 0 unit SUBCUT Q6H [facility]; Protocol Last Admin: 08/22/23 09:38 Dose: 2 unit Documented By: AL Lidocaine (Lidocaine 4 % Patch Adh..Patch) 1 patch TRANSDERMA DAILY [facility]; Protocol Last Admin: 08/22/23 09:45 Dose: 1 patch Documented By: AL Pharmacy Consult (Consult Rx Parenteral Nutrition Ordering) 1 each MISCELLANE DAILY PRN PRN Reason: Consult order Prochlorperazine Edisylate (Prochlorperazine Edisylate 10 Mg/2 Ml Vial) 10 mg IVPUSH Q4H PRN PRN Reason: Nausea and Vomiting Last Admin: 08/19/23 05:15 Dose: 10 mg Documented By: ANTOIC Sodium Chloride (0.9 % Sodium Chloride Flush 3 Ml Syringe) 3 ml IVFLUSH QSHIFT [facility] Last Admin: 08/22/23 09:38 Dose: 3 ml Documented By: AL Labs 08/22/23 05:52 08/22/23 05:52 Labs: Laboratory Results - last 24 hr 08/21/23 08/21/23 08/22/23 15:20 19:32 03:23 MCV MCH MCHC RDW Plt Count MPV Immature Gran % (Auto) Neut % (Auto) Lymph % (Auto) [place] % (Auto) Eos % (Auto) Baso % (Auto) Lymph # (Auto) [place] # (Auto) Eos # (Auto) Baso # (Auto) Abs Immat Gran (auto) Absolute Neuts (auto) Absolute Nucleated RBC Nucleated RBC % (auto) Smear Tech's Comments Anion Gap Estim Creat Clear Calc Estimated GFR POC Glucose 156 H 152 H 174 H Random Glucose Calcium Phosphorus Magnesium Albumin 08/22/23 08/22/23 08/22/23 05:52 05:52 05:52 MCV 89.7 MCH 28.3 MCHC 31.5 RDW 14.8 Plt Count 488 H MPV 10.4 Immature Gran % (Auto) 1.5 H Neut % (Auto) 56.3 Lymph % (Auto) 38.3 [place] % (Auto) 2.7 Eos % (Auto) 0.9 Baso % (Auto) 0.3 Lymph # (Auto) 3.3 [place] # (Auto) 0.2 Eos # (Auto) 0.1 Baso # (Auto) 0.0 Abs Immat Gran (auto) 0.13 H Absolute Neuts (auto) 4.8 Absolute Nucleated RBC 0.000 Nucleated RBC % (auto) 0.0 Smear Tech's Comments VERIFIED Anion Gap 11 L Estim Creat Clear Calc 169.8 184.8 Estimated GFR > 60 > 60 POC Glucose Random Glucose 165 H Calcium 8.0 L Phosphorus 3.1 Magnesium 1.8 Albumin 2.3 L 08/22/23 08/22/23 07:26 11:53 MCV MCH MCHC RDW Plt Count MPV Immature Gran % (Auto) Neut % (Auto) Lymph % (Auto) [place] % (Auto) Eos % (Auto) Baso % (Auto) Lymph # (Auto) [place] # (Auto) Eos # (Auto) Baso # (Auto) Abs Immat Gran (auto) Absolute Neuts (auto) Absolute Nucleated RBC Nucleated RBC % (auto) Smear Tech's Comments Anion Gap Estim Creat Clear Calc Estimated GFR POC Glucose 175 H 156 H Random Glucose Calcium Phosphorus Magnesium Albumin Microbiology Microbiology Results: Microbiology 08/19/23 22:17 Blood Culture - Preliminary Blood - Venous No growth after 48 hours. 08/19/23 22:17 Blood Culture - Preliminary Blood - Venous No growth after 48 hours. 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 Small-bowel obstruction complicated by ischemic bowel and perforation s/p surgery 08/09/23 NGT was removed patient was tolerating diet having bowel movements but developed recurrent vomiting and abdominal pain , repeat CT with SBO vs ileus on 08/18 NGT replaced, currently clamped Receiving IV TPN/NPO Noted to have fever 08/19 1 episode therefore started on IV vancomycin and Zosyn, blood cultures x2 negative No recurrent fevers, normal WBC count will DC IV vancomycin Continue IV Zosyn D#3, patient noted to have drainage from mid abdominal incision now stopped, no recurrent fevers and mid abdominal incision improves then will DC Zosyn after 5 day treatment nocturnal hypoxia overnight pulse ox showed severe hypoxia, patient diagnosed to have moderately severe obstructive sleep apnea, Dr. Monroy recommend CPAP he will need to have CPAP titration study in the sleep lab to determine the optimal pressure and to ensure that hypoxemia is corrected. Hypoxia resolved patient finger oximetry room air is 97 recommend outpatient pulmonology follow-up hypernatremia resolved hyperglycemia a1c 5.9 insulin sliding scale chayo resolved Hx of DVT and PE DVT and PE occurred in 12/2021 after increased immobilization secondary to right femur fracture holding xarelto until okay with surgery. 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 Quality Stroke Does the patient have a stroke diagnosis?: No VTE Prior VTE?: No VTE Risk Level:: Medical - moderate - high VTE Device Contraindication: Treatment Not Indicated VTE Drug Contraindication: N/A - Med Ordered
--- NOTE | 2023-08-22 13:42 | PM.PNGS ---
Subjective Subjective Date of Service: 08/22/23 Interval history: Patient is doing well no more drainage coming from his midline abdominal area. He has been eating fruit around his clamped and she and no significant residuals. He is concerned to have it pulled out can see that has not want to have it back in. He admits to having passed some gas and having little bowel movement. He denies any nausea Physical Exam Vital Signs: Vital Signs: Last Vital Signs Temp 98.1 F 08/22/23 12:00 Pulse 93 08/22/23 12:00 Resp 18 08/22/23 12:00 BP 134/78 08/22/23 12:00 Pulse Ox 97 08/22/23 12:00 O2 Del Method Room Air 08/22/23 12:00 O2 Flow Rate 2 08/21/23 03:05 FiO2 70 08/11/23 13:00 BMI result Body Mass Index 46.5 Const: General: cooperative, comfortable and no acute distress GI: Other: Abdomen is soft nondistended nontender obese active bowel sounds no drainage Objective Data Active Medications Bisacodyl (Bisacodyl 10 Mg Supp.Rect) 10 mg [place] DAILY PRN PRN Reason: Constipation Calcium Carbonate (Calcium Carbonate 750 Mg Tab.Chew) 750 mg PO Q6H PRN PRN Reason: Heartburn Last Admin: 08/14/23 22:28 Dose: 750 mg Documented By: RANDY Comments: given for c/o heartburn Dextrose (Dextrose 50 % 25 Gm/50 Ml Syringe) 25 gm IVPUSH Q15M PRN; Protocol PRN Reason: per Hypoglycemia Standing Ord. Enoxaparin Sodium (Enoxaparin Sodium 40 Mg/0.4 Ml Syringe) 40 mg SUBCUT Q24H [facility] Last Admin: 08/22/23 09:37 Dose: 40 mg Documented By: AL Glucose (Glucose Gel 15 Gm Gel..Gram.) 15 gm PO Q15M PRN; Protocol PRN Reason: per Hypoglycemia Standing Ord. Piperacillin Sod/Tazobactam (Sod 3.375 gm/ Sodium Chloride) 50 mls @ 100 mls/hr IV Q6H [facility] Last Infusion: 08/22/23 09:46 Dose: Infused Documented By: AL Acetaminophen (Ofirmev) 1,000 mg in 100 mls @ 400 mls/hr IV Q6H PRN PRN Reason: fever Last Infusion: 08/21/23 07:15 Dose: Infused Documented By: MONICA Nutrition (Parenteral) (Parenteral Nutrition) 2,040 mls @ 85 mls/hr IV .Q24H [facility]; Protocol Stop: 08/22/23 20:59 Last Admin: 08/21/23 21:19 Dose: 85 mls/hr Documented By: MONICA Nutrition (Parenteral) (Parenteral Nutrition) 2,040 mls @ 85 mls/hr IV .Q24H [facility]; Protocol Stop: 08/23/23 20:59 Insulin Human Lispro (Insulin Lispro 100 Unit/Ml 3 Ml Vial) 0 unit SUBCUT Q6H [facility]; Protocol Last Admin: 08/22/23 09:38 Dose: 2 unit Documented By: AL Lidocaine (Lidocaine 4 % Patch Adh..Patch) 1 patch TRANSDERMA DAILY [facility]; Protocol Last Admin: 08/22/23 09:45 Dose: 1 patch Documented By: AL Pharmacy Consult (Consult Rx Parenteral Nutrition Ordering) 1 each MISCELLANE DAILY PRN PRN Reason: Consult order Prochlorperazine Edisylate (Prochlorperazine Edisylate 10 Mg/2 Ml Vial) 10 mg IVPUSH Q4H PRN PRN Reason: Nausea and Vomiting Last Admin: 08/19/23 05:15 Dose: 10 mg Documented By: ANTMIKE Sodium Chloride (0.9 % Sodium Chloride Flush 3 Ml Syringe) [address] [facility] Last Admin: 08/22/23 09:38 Dose: 3 ml Documented By: AL Labs 08/22/23 05:52 08/22/23 05:52 Labs: Laboratory Results - last 24 hr 08/21/23 08/21/23 08/22/23 15:20 19:32 03:23 MCV MCH MCHC RDW Plt Count MPV Immature Gran % (Auto) Neut % (Auto) Lymph % (Auto) [place] % (Auto) Eos % (Auto) Baso % (Auto) Lymph # (Auto) [place] # (Auto) Eos # (Auto) Baso # (Auto) Abs Immat Gran (auto) Absolute Neuts (auto) Absolute Nucleated RBC Nucleated RBC % (auto) Smear Tech's Comments Anion Gap Estim Creat Clear Calc Estimated GFR POC Glucose 156 H 152 H 174 H Random Glucose Calcium Phosphorus Magnesium Albumin 08/22/23 08/22/23 08/22/23 05:52 05:52 05:52 MCV 89.7 MCH 28.3 MCHC 31.5 RDW 14.8 Plt Count 488 H MPV 10.4 Immature Gran % (Auto) 1.5 H Neut % (Auto) 56.3 Lymph % (Auto) 38.3 [place] % (Auto) 2.7 Eos % (Auto) 0.9 Baso % (Auto) 0.3 Lymph # (Auto) 3.3 [place] # (Auto) 0.2 Eos # (Auto) 0.1 Baso # (Auto) 0.0 Abs Immat Gran (auto) 0.13 H Absolute Neuts (auto) 4.8 Absolute Nucleated RBC 0.000 Nucleated RBC % (auto) 0.0 Smear Tech's Comments VERIFIED Anion Gap 11 L Estim Creat Clear Calc 169.8 184.8 Estimated GFR > 60 > 60 POC Glucose Random Glucose 165 H Calcium 8.0 L Phosphorus 3.1 Magnesium 1.8 Albumin 2.3 L 08/22/23 08/22/23 07:26 11:53 MCV MCH MCHC RDW Plt Count MPV Immature Gran % (Auto) Neut % (Auto) Lymph % (Auto) [place] % (Auto) Eos % (Auto) Baso % (Auto) Lymph # (Auto) [place] # (Auto) Eos # (Auto) Baso # (Auto) Abs Immat Gran (auto) Absolute Neuts (auto) Absolute Nucleated RBC Nucleated RBC % (auto) Smear Tech's Comments Anion Gap Estim Creat Clear Calc Estimated GFR POC Glucose 175 H 156 H Random Glucose Calcium Phosphorus Magnesium Albumin Microbiology Microbiology Results: Microbiology 08/19/23 22:17 Blood Culture - Preliminary Blood - Venous No growth after 48 hours. 08/19/23 22:17 Blood Culture - Preliminary Blood - Venous No growth after 48 hours. Procedures Date of Service Date of Service: 08/22/23 Progress Note: A&P Assessment and plan (1) Status post small bowel resection: Status: Acute Plan 53-year-old male status post extensive small bowel resection overall doing better. He did have some ileus but it seems to be resolving. He still very wary about having the NG pulled. At this point we will continue clamping it and most likely remove it tomorrow but allow him to have liquids and eat around that. He understands and agrees with the above plan. Midline abdominal wound looks good appreciate medical team following along with this patient. Continue with TPN for now Time Spent With Patient Time: Total time managing care of this patient today ____ minutes. Quality Stroke Does the patient have a stroke diagnosis?: No VTE Prior VTE?: No VTE Risk Level:: Medical - moderate - high VTE Device Contraindication: Treatment Not Indicated VTE Drug Contraindication: N/A - Med Ordered
[2023-08-22 15:41] VITALS: BP 151/85; PULSE 88; RESP 20; TEMP 36.8; O2SAT 98
[2023-08-22 16:03] LABS: Glucose, Whole Blood 159 mg/dL (60-115)
[2023-08-22 19:45] VITALS: BP 128/69; PULSE 91; RESP 20; TEMP 36.7; O2SAT 97
[2023-08-22 20:27] LABS: Glucose, Whole Blood 148 mg/dL (60-115)
[2023-08-22] MEDS: Parenteral Nutrition 2,040 ML 85 ML IV (20:50)
[2023-08-22 23:51] VITALS: BP 136/84; PULSE 99; RESP 20; TEMP 36.7; O2SAT 98
[2023-08-23] MEDS: Piperacillin Sodium/Tazobactam 3.375 GM in 0.9 % Sodium Chloride 50 ML IV ×4 (00:59→18:29)
[2023-08-23] MEDS: 0.9 % Sodium Chloride Flush 3 ML SYRINGE IVFLUSH (00:59)
[2023-08-23 03:17] VITALS: BP 127/72; PULSE 102; RESP 20; TEMP 37; O2SAT 97
[2023-08-23 03:34] LABS: Glucose, Whole Blood 160 mg/dL (60-115)
[2023-08-23] MEDS: Insulin Lispro 100 UNIT/ML 3 ML VIAL SUBCUT ×2 (03:38→09:28)
[2023-08-23 05:42] VITALS: BMI 103.6
[2023-08-23 07:40] LABS: Albumin Level 2.4 g/dL (3.5-5.0); Anion Gap 14 (12-20); Blood Urea Nitrogen 13 mg/dL (9-16); Calcium 8.3 mg/dL (8.4-10.2); Carbon Dioxide 21 mmol/L (22-29); Chloride 111 mmol/L (96-108); Creatinine Clr Calc Pharmacy 331.4; Estimated Glomerular Filt Rate > 60; Glucose Random 172 mg/dL (60-115); Magnesium 2.1 mg/dL (1.6-2.6); Phosphorus 3.1 mg/dL (2.7-4.5); Potassium 3.8 mmol/L (3.3-5.1); Sodium 142 mmol/L (135-145); Triglycerides 168 mg/dL (<150)
[2023-08-23 08:00] VITALS: BP 116/70; PULSE 112; RESP 20; TEMP 36.9; O2SAT 96
[2023-08-23 08:37] LABS: Glucose, Whole Blood 153 mg/dL (60-115)
--- NOTE | 2023-08-23 08:40 | PM.PNGS ---
Subjective Subjective Date of Service: 08/24/23 Interval history: Feels well this morning Denies any abdominal pain States he is passing flatus and bowel movements Taking liquids NG tube has been off suction for the most part He denies nausea Physical Exam Vital Signs: Vital Signs: Last Vital Signs Temp 98.4 F 08/23/23 08:00 Pulse 112 H 08/23/23 08:00 Resp 20 08/23/23 08:00 BP 116/70 08/23/23 08:00 Pulse Ox 96 08/23/23 08:00 O2 Del Method Room Air 08/23/23 08:00 O2 Flow Rate 2 08/21/23 03:05 FiO2 70 08/11/23 13:00 BMI result Body Mass Index 103.6 Const: General: comfortable and no acute distress Resp: Effort & Inspection: normal respiratory effort Cardio: Rhythm: regular rhythm GI: Palpation (GI): Soft to palpation, not firm, nontender and no guarding Objective Data Active Medications Bisacodyl (Bisacodyl 10 Mg Supp.Rect) 10 mg [place] DAILY PRN PRN Reason: Constipation Calcium Carbonate (Calcium Carbonate 750 Mg Tab.Chew) 750 mg PO Q6H PRN PRN Reason: Heartburn Last Admin: 08/14/23 22:28 Dose: 750 mg Documented By: RANDY Comments: given for c/o heartburn Dextrose (Dextrose 50 % 25 Gm/50 Ml Syringe) 25 gm IVPUSH Q15M PRN; Protocol PRN Reason: per Hypoglycemia Standing Ord. Enoxaparin Sodium (Enoxaparin Sodium 40 Mg/0.4 Ml Syringe) 40 mg SUBCUT Q24H [facility] Last Admin: 08/22/23 09:37 Dose: 40 mg Documented By: AL Glucose (Glucose Gel 15 Gm Gel..Gram.) 15 gm PO Q15M PRN; Protocol PRN Reason: per Hypoglycemia Standing Ord. Piperacillin Sod/Tazobactam (Sod 3.375 gm/ Sodium Chloride) 50 mls @ 100 mls/hr IV Q6H [facility] Last Infusion: 08/23/23 01:38 Dose: Infused Documented By: DAVIAN Nutrition (Parenteral) (Parenteral Nutrition) 2,040 mls @ 85 mls/hr IV .Q24H [facility]; Protocol Stop: 08/23/23 20:59 Last Admin: 08/22/23 20:50 Dose: 85 mls/hr Documented By: YADIRA Insulin Human Lispro (Insulin Lispro 100 Unit/Ml 3 Ml Vial) 0 unit SUBCUT Q6H [facility]; Protocol Last Admin: 08/23/23 03:38 Dose: 2 unit Documented By: DAVIAN Lidocaine (Lidocaine 4 % Patch Adh..Patch) 1 patch TRANSDERMA DAILY [facility]; Protocol Last Admin: 08/22/23 09:45 Dose: 1 patch Documented By: AL Pharmacy Consult (Consult Rx Parenteral Nutrition Ordering) 1 each MISCELLANE DAILY PRN PRN Reason: Consult order Prochlorperazine Edisylate (Prochlorperazine Edisylate 10 Mg/2 Ml Vial) 10 mg IVPUSH Q4H PRN PRN Reason: Nausea and Vomiting Last Admin: 08/19/23 05:15 Dose: 10 mg Documented By: JANETTOIC Sodium Chloride (0.9 % Sodium Chloride Flush 3 Ml Syringe) 3 ml IVFLUSH QSHIFT [facility] Last Admin: 08/23/23 00:59 Dose: 3 ml Documented By: DAVIAN Sodium Chloride (Sodium Chloride 0.65 % Nasal 44 Ml Sprbtl) 1 spray NOSTRIL-B Q1H PRN PRN Reason: nasal dryness Labs 08/22/23 05:52 08/24/23 06:26 Labs: Laboratory Results - last 24 hr 08/22/23 08/22/23 08/22/23 05:52 11:53 15:59 Hold Purple Top Anion Gap Estim Creat Clear Calc Estimated GFR POC Glucose 156 H 159 H Random Glucose Calcium Phosphorus Magnesium Albumin 2.3 L Triglycerides 08/22/23 08/23/23 08/23/23 20:24 03:22 07:00 Hold Purple Top SEE NOTE Anion Gap 14 Estim Creat Clear Calc 331.4 Estimated GFR > 60 POC Glucose 148 H 160 H Random Glucose 172 H Calcium 8.3 L Phosphorus 3.1 Magnesium 2.1 Albumin 2.4 L Triglycerides 168 H 08/23/23 07:40 Hold Purple Top Anion Gap Estim Creat Clear Calc Estimated GFR POC Glucose 153 H Random Glucose Calcium Phosphorus Magnesium Albumin Triglycerides Procedures Date of Service Date of Service: 08/24/23 Progress Note: A&P Assessment and plan (1) Status post small bowel resection: Status: Acute Assessment and Plan: NG tube still in place He is passing flatus and BMs Will monitor NG tube output today Plan to hopefully remove the NG tube tomorrow He looks well Abdomen soft and benign Some drainage from incision likely from subcutaneous fat necrosis in view of large pannus TPN Time Spent With Patient Time: Total time managing care of this patient today ____ minutes. Quality Stroke Does the patient have a stroke diagnosis?: No VTE Prior VTE?: No VTE Risk Level:: Medical - moderate - high VTE Device Contraindication: Treatment Not Indicated VTE Drug Contraindication: N/A - Med Ordered
[2023-08-23] MEDS: Enoxaparin Sodium 40 MG/0.4 ML SYRINGE SUBCUT (09:28)
[2023-08-23] MEDS: Lidocaine 4 % Patch ADH..PATCH 1 PATCH TRANSDERMA (09:28)
--- NOTE | 2023-08-23 11:21 | MHC.CLN ---
F/U PT REMAINS NPO REVIEWED LABS-TRIGS SLIGHTLY ELEVATED DISCUSSED WITH PHARMACY NOTED STAGE 2 R BUTTUCKS-TPN WILL PROMOTE WOUND HEALING PT REFUSES TO REPOSITION PER NSG CONTINUE TPN AT 85ML/HR WITH 86G LIPIDS PROVIDES 2308 TOTAL KCALS (30KCALS/KG BASED ON CMW) , 102G PROTEIN (1.3G/KG), 306G DEXTROSE REPLETE LYTES NEEDED
[2023-08-23 11:52] VITALS: BP 122/80; PULSE 96; RESP 16; TEMP 36.5; O2SAT 96
--- NOTE | 2023-08-23 15:14 | HO.PM.IMPN ---
Subjective Subjective Date of Service: 08/23/23 Interval History: No acute issues overnight. Remains tolerant of NG tube clamping. Passing flatus Review of Systems Denies chest pain Denies shortness of breath Denies nausea vomiting diarrhea Denies fever chills Physical Exam Vital Signs: Vital Signs: Last Vital Signs Temp 97.7 F 08/23/23 11:52 Pulse 96 08/23/23 11:52 Resp 16 08/23/23 11:52 BP 122/80 08/23/23 11:52 Pulse Ox 96 08/23/23 11:52 O2 Del Method Room Air 08/23/23 11:52 O2 Flow Rate 2 08/21/23 03:05 FiO2 70 08/11/23 13:00 BMI result Body Mass Index 103.6 Const: Other: Awake alert no acute distress HEENT: Other: NG tube clamped Resp: Other: Clear to auscultation bilaterally no rales rhonchi or wheezes Cardio: Other: No S4; positive S1-S2; no S3 murmurs rubs or gallops GI: Other: Soft nontender nondistended normoactive bowel sounds Extrem: Other: No edema bilaterally Objective Data Active Medications Bisacodyl (Bisacodyl 10 Mg Supp.Rect) 10 mg [place] DAILY PRN PRN Reason: Constipation Calcium Carbonate (Calcium Carbonate 750 Mg Tab.Chew) 750 mg PO Q6H PRN PRN Reason: Heartburn Last Admin: 08/14/23 22:28 Dose: 750 mg Documented By: RANDY Comments: given for c/o heartburn Dextrose (Dextrose 50 % 25 Gm/50 Ml Syringe) 25 gm IVPUSH Q15M PRN; Protocol PRN Reason: per Hypoglycemia Standing Ord. Enoxaparin Sodium (Enoxaparin Sodium 40 Mg/0.4 Ml Syringe) 40 mg SUBCUT Q24H [facility] Last Admin: 08/23/23 09:28 Dose: 40 mg Documented By: EVA Glucose (Glucose Gel 15 Gm Gel..Gram.) 15 gm PO Q15M PRN; Protocol PRN Reason: per Hypoglycemia Standing Ord. Piperacillin Sod/Tazobactam (Sod 3.375 gm/ Sodium Chloride) 50 mls @ 100 mls/hr IV Q6H [facility] Last Infusion: 08/23/23 14:31 Dose: Infused Documented By: HO.GUILMAT Nutrition (Parenteral) (Parenteral Nutrition) 2,040 mls @ 85 mls/hr IV .Q24H [facility]; Protocol Stop: 08/23/23 20:59 Last Admin: 08/22/23 20:50 Dose: 85 mls/hr Documented By: YADIRA Nutrition (Parenteral) (Parenteral Nutrition) 2,040 mls @ 85 mls/hr IV .Q24H [facility]; Protocol Stop: 08/24/23 20:59 Insulin Human Lispro (Insulin Lispro 100 Unit/Ml 3 Ml Vial) 0 unit SUBCUT Q6H [facility]; Protocol Last Admin: 08/23/23 09:28 Dose: 2 unit Documented By: EVA Lidocaine (Lidocaine 4 % Patch Adh..Patch) 1 patch TRANSDERMA DAILY [facility]; Protocol Last Admin: 08/23/23 09:28 Dose: 1 patch Documented By: EVA Pharmacy Consult (Consult Rx Parenteral Nutrition Ordering) 1 each MISCELLANE DAILY PRN PRN Reason: Consult order Prochlorperazine Edisylate (Prochlorperazine Edisylate 10 Mg/2 Ml Vial) 10 mg IVPUSH Q4H PRN PRN Reason: Nausea and Vomiting Last Admin: 08/19/23 05:15 Dose: 10 mg Documented By: ANTOIC Sodium Chloride (0.9 % Sodium Chloride Flush 3 Ml Syringe) 3 ml IVFLUSH QSHIFT [facility] Last Admin: 08/23/23 09:28 Dose: Not Given Documented By: EVA Non-Admin Reason: IV Running Sodium Chloride (Sodium Chloride 0.65 % Nasal 44 Ml Sprbtl) 1 spray NOSTRIL-B Q1H PRN PRN Reason: nasal dryness Labs 08/22/23 05:52 08/23/23 07:00 Labs: Laboratory Results - last 24 hr 08/22/23 08/22/23 08/23/23 15:59 20:24 03:22 Hold Purple Top Anion Gap Estim Creat Clear Calc Estimated GFR POC Glucose 159 H 148 H 160 H Random Glucose Calcium Phosphorus Magnesium Albumin Triglycerides 08/23/23 08/23/23 07:00 07:40 Hold Purple Top SEE NOTE Anion Gap 14 Estim Creat Clear Calc 331.4 Estimated GFR > 60 POC Glucose 153 H Random Glucose 172 H Calcium 8.3 L Phosphorus 3.1 Magnesium 2.1 Albumin 2.4 L Triglycerides 168 H Assessment and Plan (1) Status post small bowel resection: Status: Acute (2) Pulmonary embolism: Status: Acute (3) 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 1.Small-bowel obstruction complicated by ischemic bowel and perforation -s/p surgery 08/09/23 -NGT was removed patient was tolerating diet having bowel movements but developed recurrent vomiting and abdominal pain , repeat CT with SBO vs ileus on 08/18;NGT replaced, currently clamped -receiving IV TPN/NPO -noted to have fever 08/19 1 episode therefore started on IV vancomycin(dc)/Zosyn(09/02) blood cultures x2 negative 2.Nocturnal hypoxia -overnight pulse ox showed severe hypoxia, patient diagnosed to have moderately severe obstructive sleep apnea, Dr. Monroy recommend CPAP he will need to have CPAP titration study in the sleep lab to determine the optimal pressure and to ensure that hypoxemia is corrected. 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
--- NOTE | 2023-08-23 15:29 | MHC.CM.PN ---
EMR reviewed and per MD rounds, pt is not medically cleared for D/C due to management of small bowel obstruction, pt NPO with NG tube in place, and pt receiving parenteral nutrition.
[2023-08-23 15:41] LABS: Glucose, Whole Blood 148 mg/dL (60-115)
[2023-08-23 15:50] VITALS: BP 113/76; PULSE 100; RESP 16; TEMP 36.6; O2SAT 98
[2023-08-23 19:58] VITALS: BP 142/79; PULSE 96; RESP 18; TEMP 36.8; O2SAT 96
[2023-08-23 20:34] LABS: Glucose, Whole Blood 142 mg/dL (60-115)
[2023-08-23] MEDS: Parenteral Nutrition 2,040 ML 85 ML IV (23:14)
[2023-08-23 23:26] VITALS: BP 146/76; PULSE 94; RESP 20; TEMP 37; O2SAT 100
[2023-08-24] MEDS: Piperacillin Sodium/Tazobactam 3.375 GM in 0.9 % Sodium Chloride 50 ML IV ×4 (02:25→22:37)
[2023-08-24] MEDS: 0.9 % Sodium Chloride Flush 3 ML SYRINGE IVFLUSH ×3 (02:26→15:53)
[2023-08-24 03:55] VITALS: BP 103/73; PULSE 99; RESP 20; TEMP 37.1; O2SAT 98
[2023-08-24 04:06] LABS: Glucose, Whole Blood 168 mg/dL (60-115)
[2023-08-24] MEDS: Insulin Lispro 100 UNIT/ML 3 ML VIAL SUBCUT ×2 (04:20→09:32)
[2023-08-24 07:20] VITALS: BP 120/66; PULSE 96; RESP 18; TEMP 37.1; O2SAT 98
--- NOTE | 2023-08-24 07:37 | P.PNGS_ITS ---
Subjective Subjective Date of Service: 08/25/23 Interval history: Has no new complaints Feels well this morning Denies abdominal pain Passing flatus and BMs Physical Exam 2 Vital Signs: Vital Signs: Last Vital Signs Temp 98.8 F 08/24/23 07:20 Pulse 96 08/24/23 07:20 Resp 18 08/24/23 07:20 BP 120/66 08/24/23 07:20 Pulse Ox 98 08/24/23 07:20 O2 Del Method Room Air 08/24/23 07:20 O2 Flow Rate 2 08/21/23 03:05 FiO2 70 08/11/23 13:00 BMI result Body Mass Index 103.6 Const: General: comfortable and no acute distress Resp: Effort & Inspection: normal respiratory effort Cardio: Rate: regular rate GI: Palpation (GI): Soft to palpation, not firm and nontender Objective Data Active Medications Bisacodyl (Bisacodyl 10 Mg Supp.Rect) 10 mg [place] DAILY PRN PRN Reason: Constipation Calcium Carbonate (Calcium Carbonate 750 Mg Tab.Chew) 750 mg PO Q6H PRN PRN Reason: Heartburn Last Admin: 08/14/23 22:28 Dose: 750 mg Documented By: RANDY Comments: given for c/o heartburn Dextrose (Dextrose 50 % 25 Gm/50 Ml Syringe) 25 gm IVPUSH Q15M PRN; Protocol PRN Reason: per Hypoglycemia Standing Ord. Enoxaparin Sodium (Enoxaparin Sodium 40 Mg/0.4 Ml Syringe) 40 mg SUBCUT Q24H [facility] Last Admin: 08/23/23 09:28 Dose: 40 mg Documented By: EVA Glucose (Glucose Gel 15 Gm Gel..Gram.) 15 gm PO Q15M PRN; Protocol PRN Reason: per Hypoglycemia Standing Ord. Piperacillin Sod/Tazobactam (Sod 3.375 gm/ Sodium Chloride) 50 mls @ 100 mls/hr IV Q6H [facility] Last Infusion: 08/24/23 07:23 Dose: Infused Documented By: RANDY Nutrition (Parenteral) (Parenteral Nutrition) 2,040 mls @ 85 mls/hr IV .Q24H [facility]; Protocol Stop: 08/24/23 20:59 Last Admin: 08/23/23 23:14 Dose: 85 mls/hr Documented By: RANDY Insulin Human Lispro (Insulin Lispro 100 Unit/Ml 3 Ml Vial) 0 unit SUBCUT Q6H [facility]; Protocol Last Admin: 08/24/23 04:20 Dose: 2 unit Documented By: RANDY Lidocaine (Lidocaine 4 % Patch Adh..Patch) 1 patch TRANSDERMA DAILY [facility]; Protocol Last Admin: 08/23/23 09:28 Dose: 1 patch Documented By: EVA Pharmacy Consult (Consult Rx Parenteral Nutrition Ordering) 1 each MISCELLANE DAILY PRN PRN Reason: Consult order Prochlorperazine Edisylate (Prochlorperazine Edisylate 10 Mg/2 Ml Vial) 10 mg IVPUSH Q4H PRN PRN Reason: Nausea and Vomiting Last Admin: 08/19/23 05:15 Dose: 10 mg Documented By: ANTMIKE Sodium Chloride (0.9 % Sodium Chloride Flush 3 Ml Syringe) 3 ml IVFLUSH QSHIFT [facility] Last Admin: 08/24/23 02:26 Dose: 3 ml Documented By: RANDY Sodium Chloride (Sodium Chloride 0.65 % Nasal 44 Ml Sprbtl) 1 spray NOSTRIL-B Q1H PRN PRN Reason: nasal dryness Labs 08/22/23 05:52 08/25/23 05:50 Labs: Laboratory Results - last 24 hr 08/23/23 08/23/23 08/23/23 07:00 07:40 15:37 Hold Purple Top Anion Gap 14 Estim Creat Clear Calc 331.4 Estimated GFR > 60 POC Glucose 153 H 148 H Random Glucose 172 H Calcium 8.3 L Phosphorus 3.1 Magnesium 2.1 Albumin 2.4 L Triglycerides 168 H 08/23/23 08/24/23 08/24/23 20:30 03:59 06:26 Hold Purple Top SEE NOTE Anion Gap Estim Creat Clear Calc Estimated GFR POC Glucose 142 H 168 H Random Glucose Calcium Phosphorus Magnesium Albumin Triglycerides Procedures Date of Service Date of Service: 08/25/23 Progress Note: A&P Assessment and plan (1) Status post small bowel resection: Status: Acute Assessment and Plan: NG tube in place - output low overnight We will clamp NG tube again Re-evaluate output from NG tube Continue TPN Otherwise looks well Exam remains benign Time Spent With Patient Time: Total time managing care of this patient today ____ minutes. Quality Stroke Does the patient have a stroke diagnosis?: No VTE Prior VTE?: No VTE Risk Level:: Medical - moderate - high VTE Device Contraindication: Treatment Not Indicated VTE Drug Contraindication: N/A - Med Ordered
[2023-08-24 07:38] LABS: Albumin Level 2.6 g/dL (3.5-5.0); Anion Gap 13 (12-20); Blood Urea Nitrogen 13 mg/dL (9-16); Calcium 8.6 mg/dL (8.4-10.2); Carbon Dioxide 24 mmol/L (22-29); Chloride 109 mmol/L (96-108); Creatinine Clr Calc Pharmacy 331.4; Estimated Glomerular Filt Rate > 60; Glucose Random 159 mg/dL (60-115); Magnesium 1.9 mg/dL (1.6-2.6); Phosphorus 3.1 mg/dL (2.7-4.5); Potassium 3.5 mmol/L (3.3-5.1); Sodium 142 mmol/L (135-145); Triglycerides 153 mg/dL (<150)
[2023-08-24 09:16] LABS: Glucose, Whole Blood 162 mg/dL (60-115)
[2023-08-24] MEDS: Lidocaine 4 % Patch ADH..PATCH 1 PATCH TRANSDERMA (09:31)
[2023-08-24] MEDS: Enoxaparin Sodium 40 MG/0.4 ML SYRINGE SUBCUT (09:33)
[2023-08-24 10:32] VITALS: BMI 47.1
[2023-08-24 11:07] VITALS: BP 149/73; PULSE 95; RESP 20; TEMP 36.9; O2SAT 96
--- NOTE | 2023-08-24 11:15 | MHC.CLN ---
F/U PT REMAINS NPO REVIEWED LABS-TRIGS BORDERLINE HIGH DISCUSSED WITH PHARMACY CONTINUE TPN AT 85ML/HR WITH 86G LIPIDS PROVIDES 2308 TOTAL KCALS (30KCALS/KG BASED ON CMW) , 102G PROTEIN (1.3G/KG), 306G DEXTROSE REPLETE LYTES NEEDED TPN WILL PROMOTE WOUND HEALING; PT REFUSES TO REPOSITION PER NSG
--- NOTE | 2023-08-24 15:06 | MHC.CM.PN ---
Per MD rounds no dc today. NG clamping trial planned. Patient scheduled for a PICC line. DP home with new HVNA. Patient will transport via BLS.
[2023-08-24 15:17] LABS: Glucose, Whole Blood 141 mg/dL (60-115)
[2023-08-24 15:37] VITALS: BP 128/84; PULSE 100; RESP 18; TEMP 36.8; O2SAT 96
--- NOTE | 2023-08-24 16:55 | HO.PM.IMPN ---
Subjective Subjective Date of Service: 08/24/23 Interval History: No acute issues overnight. Minimal drainage from NG tube Review of Systems Denies chest pain Denies shortness of breath Denies nausea vomiting diarrhea Denies fever chills Physical Exam Vital Signs: Vital Signs: Last Vital Signs Temp 98.3 F 08/24/23 15:37 Pulse 100 08/24/23 15:37 Resp 18 08/24/23 15:37 BP 128/84 08/24/23 15:37 Pulse Ox 96 08/24/23 15:37 O2 Del Method Room Air 08/24/23 15:37 O2 Flow Rate 2 08/21/23 03:05 FiO2 70 08/11/23 13:00 BMI result Body Mass Index 47.1 Const: Other: Awake alert no acute distress HEENT: Other: NG tube clamped Resp: Other: Clear to auscultation bilaterally no rales rhonchi or wheezes Cardio: Other: No S4; positive S1-S2; no S3 murmurs rubs or gallops GI: Other: Soft nontender nondistended normoactive bowel sounds Extrem: Other: No edema bilaterally Objective Data Active Medications Bisacodyl (Bisacodyl 10 Mg Supp.Rect) 10 mg [place] DAILY PRN PRN Reason: Constipation Calcium Carbonate (Calcium Carbonate 750 Mg Tab.Chew) 750 mg PO Q6H PRN PRN Reason: Heartburn Last Admin: 08/14/23 22:28 Dose: 750 mg Documented By: RANDY Comments: given for c/o heartburn Dextrose (Dextrose 50 % 25 Gm/50 Ml Syringe) 25 gm IVPUSH Q15M PRN; Protocol PRN Reason: per Hypoglycemia Standing Ord. Enoxaparin Sodium (Enoxaparin Sodium 40 Mg/0.4 Ml Syringe) 40 mg SUBCUT Q24H [facility] Last Admin: 08/24/23 09:33 Dose: 40 mg Documented By: CORNEL Glucose (Glucose Gel 15 Gm Gel..Gram.) 15 gm PO Q15M PRN; Protocol PRN Reason: per Hypoglycemia Standing Ord. Piperacillin Sod/Tazobactam (Sod 3.375 gm/ Sodium Chloride) 50 mls @ 100 mls/hr IV Q6H [facility] Last Infusion: 08/24/23 15:01 Dose: Infused Documented By: GILBERTO Nutrition (Parenteral) (Parenteral Nutrition) 2,040 mls @ 85 mls/hr IV .Q24H [facility]; Protocol Stop: 08/24/23 20:59 Last Admin: 08/23/23 23:14 Dose: 85 mls/hr Documented By: RANDY Nutrition (Parenteral) (Parenteral Nutrition) 2,040 mls @ 85 mls/hr IV .Q24H [facility]; Protocol Stop: 08/25/23 20:59 Insulin Human Lispro (Insulin Lispro 100 Unit/Ml 3 Ml Vial) 0 unit SUBCUT Q6H [facility]; Protocol Last Admin: 08/24/23 15:27 Dose: Not Given Documented By: GILBERTO Non-Admin Reason: No Insulin Coverage Lidocaine (Lidocaine 4 % Patch Adh..Patch) 1 patch TRANSDERMA DAILY [facility]; Protocol Last Admin: 08/24/23 09:31 Dose: 1 patch Documented By: CORNEL Pharmacy Consult (Consult Rx Parenteral Nutrition Ordering) 1 each MISCELLANE DAILY PRN PRN Reason: Consult order Prochlorperazine Edisylate (Prochlorperazine Edisylate 10 Mg/2 Ml Vial) 10 mg IVPUSH Q4H PRN PRN Reason: Nausea and Vomiting Last Admin: 08/19/23 05:15 Dose: 10 mg Documented By: TRISTA Sodium Chloride (0.9 % Sodium Chloride Flush 3 Ml Syringe) 3 ml IVFLUSH QSHIFT [facility] Last Admin: 08/24/23 15:53 Dose: 3 ml Documented By: GILBERTO Sodium Chloride (Sodium Chloride 0.65 % Nasal 44 Ml Sprbtl) 1 spray NOSTRIL-B Q1H PRN PRN Reason: nasal dryness Labs 08/22/23 05:52 08/24/23 06:26 Labs: Laboratory Results - last 24 hr 08/23/23 08/24/23 08/24/23 20:30 03:59 06:26 Hold Purple Top SEE NOTE Anion Gap 13 Estim Creat Clear Calc 331.4 Estimated GFR > 60 POC Glucose 142 H 168 H Random Glucose 159 H Calcium 8.6 Phosphorus 3.1 Magnesium 1.9 Albumin 2.6 L Triglycerides 153 H 08/24/23 08/24/23 09:12 15:13 Hold Purple Top Anion Gap Estim Creat Clear Calc Estimated GFR POC Glucose 162 H 141 H Random Glucose Calcium Phosphorus Magnesium Albumin Triglycerides Assessment and Plan (1) Status post small bowel resection: Status: Acute (2) DVT (deep venous thrombosis): Status: Acute (3) Guillain-Linwood syndrome: Status: Acute Plan 53M PMH significant for 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 1.Small-bowel obstruction complicated by ischemic bowel and perforation -s/p surgery 08/09/23 -NGT was removed patient was tolerating diet having bowel movements but developed recurrent vomiting and abdominal pain , repeat CT with SBO vs ileus on 08/18;NGT replaced, currently clamped .. Surgery to re-evaluate in a.m. -receiving IV TPN/NPO ; PICC line scheduled for a.m.; ordered double lumen to facilitate TPN and meds -noted to have fever 08/19 1 episode therefore started on IV vancomycin(dc)/Zosyn(10/02) blood cultures x2 negative.. If afebrile overnight made DC antibiotics 2.Nocturnal hypoxia -overnight pulse ox showed severe hypoxia, patient diagnosed to have moderately severe obstructive sleep apnea, Dr. Monroy recommend CPAP he will need to have CPAP titration study in the sleep lab to determine the optimal pressure and to ensure that hypoxemia is corrected. 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
[2023-08-24 20:00] VITALS: BP 137/81; PULSE 100; RESP 18; TEMP 37.2; O2SAT 96
[2023-08-24 20:21] LABS: Glucose, Whole Blood 138 mg/dL (60-115)
[2023-08-24] MEDS: Parenteral Nutrition 2,040 ML 85 ML IV (22:37)
[2023-08-24 22:57] VITALS: BP 122/78; PULSE 106; RESP 20; TEMP 37.6; O2SAT 100
[2023-08-25] VITALS (7 sets, daily range): BP systolic 106–126; BP diastolic 63–83; PULSE 97–106; RESP 19–20; TEMP 36.2–37.3; O2SAT 91–99; BMI 46.0
[2023-08-25 04:06] LABS: Glucose, Whole Blood 175 mg/dL (60-115)
[2023-08-25] MEDS: Piperacillin Sodium/Tazobactam 3.375 GM in 0.9 % Sodium Chloride 50 ML IV ×2 (04:18→12:27)
[2023-08-25] MEDS: Insulin Lispro 100 UNIT/ML 3 ML VIAL SUBCUT (04:18)
[2023-08-25 06:58] LABS: Albumin Level 2.6 g/dL (3.5-5.0); Anion Gap 9 (12-20); Blood Urea Nitrogen 12 mg/dL (9-16); Calcium 8.2 mg/dL (8.4-10.2); Carbon Dioxide 23 mmol/L (22-29); Chloride 111 mmol/L (96-108); Creatinine Clr Calc Pharmacy 179.4; Estimated Glomerular Filt Rate > 60; Glucose Random 160 mg/dL (60-115); Magnesium 1.9 mg/dL (1.6-2.6); Phosphorus 2.9 mg/dL (2.7-4.5); Potassium 3.3 mmol/L (3.3-5.1); Sodium 140 mmol/L (135-145); Triglycerides 167 mg/dL (<150)
--- NOTE | 2023-08-25 10:35 | MHC.CLN ---
F/U PT REMAINS NPO REVIEWED LABS-TRIGS REMAIN SLIGHTLY ELEVATED DISCUSSED WITH PHARMACY CONTINUE TPN AT 85ML/HR WITH 86G LIPIDS PROVIDES 2308 TOTAL KCALS (30KCALS/KG BASED ON CMW) , 102G PROTEIN (1.3G/KG), 306G DEXTROSE REPLETE LYTES NEEDED TPN WILL PROMOTE WOUND HEALING
[2023-08-25] MEDS: Enoxaparin Sodium 40 MG/0.4 ML SYRINGE SUBCUT (12:26)
[2023-08-25] MEDS: 0.9 % Sodium Chloride Flush 3 ML SYRINGE IVFLUSH ×2 (12:27→16:36)
--- NOTE | 2023-08-25 12:27 | P.PNGS_ITS ---
Subjective Subjective Date of Service: 08/26/23 Interval history: feels well has BMs, flatus denies N/V denies abdl pain NGT in place - has been off suction overnight Physical Exam 2 Vital Signs: Vital Signs: Last Vital Signs Temp 98.8 F 08/25/23 07:52 Pulse 97 08/25/23 07:52 Resp 20 08/25/23 07:52 BP 114/63 08/25/23 07:52 Pulse Ox 97 08/25/23 07:52 O2 Del Method Nasal Cannula 08/25/23 07:52 O2 Flow Rate 2 08/25/23 07:52 FiO2 70 08/11/23 13:00 BMI result Body Mass Index 46.0 Const: General: comfortable and no acute distress Resp: Effort & Inspection: normal respiratory effort GI: Other: NGT in place Palpation (GI): Soft to palpation, not firm and nontender Objective Data Active Medications Bisacodyl (Bisacodyl 10 Mg Supp.Rect) 10 mg [place] DAILY PRN PRN Reason: Constipation Calcium Carbonate (Calcium Carbonate 750 Mg Tab.Chew) 750 mg PO Q6H PRN PRN Reason: Heartburn Last Admin: 08/14/23 22:28 Dose: 750 mg Documented By: RANDY Comments: given for c/o heartburn Dextrose (Dextrose 50 % 25 Gm/50 Ml Syringe) 25 gm IVPUSH Q15M PRN; Protocol PRN Reason: per Hypoglycemia Standing Ord. Enoxaparin Sodium (Enoxaparin Sodium 40 Mg/0.4 Ml Syringe) 40 mg SUBCUT Q24H [facility] Last Admin: 08/24/23 09:33 Dose: 40 mg Documented By: CORNEL Glucose (Glucose Gel 15 Gm Gel..Gram.) 15 gm PO Q15M PRN; Protocol PRN Reason: per Hypoglycemia Standing Ord. Nutrition (Parenteral) (Parenteral Nutrition) 2,040 mls @ 85 mls/hr IV .Q24H [facility]; Protocol Stop: 08/25/23 20:59 Last Admin: 08/24/23 22:37 Dose: 85 mls/hr Documented By: RANDY Piperacillin Sod/Tazobactam (Sod 3.375 gm/ Sodium Chloride) 50 mls @ 100 mls/hr IV Q6H [facility] Last Infusion: 08/25/23 05:01 Dose: Infused Documented By: RANDY Nutrition (Parenteral) (Parenteral Nutrition) 2,040 mls @ 85 mls/hr IV .Q24H [facility]; Protocol Stop: 08/26/23 20:59 Insulin Human Lispro (Insulin Lispro 100 Unit/Ml 3 Ml Vial) 0 unit SUBCUT Q6H [facility]; Protocol Last Admin: 08/25/23 04:18 Dose: 2 unit Documented By: RANDY Lidocaine (Lidocaine 4 % Patch Adh..Patch) 1 patch TRANSDERMA DAILY [facility]; Protocol Last Admin: 08/24/23 09:31 Dose: 1 patch Documented By: CORNEL Pharmacy Consult (Consult Rx Parenteral Nutrition Ordering) 1 each MISCELLANE DAILY PRN PRN Reason: Consult order Prochlorperazine Edisylate (Prochlorperazine Edisylate 10 Mg/2 Ml Vial) 10 mg IVPUSH Q4H PRN PRN Reason: Nausea and Vomiting Last Admin: 08/19/23 05:15 Dose: 10 mg Documented By: ANTOIC Sodium Chloride (0.9 % Sodium Chloride Flush 3 Ml Syringe) 3 ml IVFLUSH QSHIFT [facility] Last Admin: 08/25/23 03:21 Dose: Not Given Documented By: RANDY Non-Admin Reason: IV Running Sodium Chloride (Sodium Chloride 0.65 % Nasal 44 Ml Sprbtl) 1 spray NOSTRIL-B Q1H PRN PRN Reason: nasal dryness Labs 08/26/23 06:47 08/26/23 06:38 Labs: Laboratory Results - last 24 hr 08/24/23 08/24/23 08/25/23 15:13 20:08 03:59 Hold Purple Top Anion Gap Estim Creat Clear Calc Estimated GFR POC Glucose 141 H 138 H 175 H Random Glucose Calcium Phosphorus Magnesium Albumin Triglycerides 08/25/23 05:50 Hold Purple Top SEE NOTE Anion Gap 9 L Estim Creat Clear Calc 179.4 Estimated GFR > 60 POC Glucose Random Glucose 160 H Calcium 8.2 L Phosphorus 2.9 Magnesium 1.9 Albumin 2.6 L Triglycerides 167 H Microbiology Microbiology Results: Microbiology 08/19/23 22:17 Blood Culture - Final Blood - Venous No growth after 5 days. 08/19/23 22:17 Blood Culture - Final Blood - Venous No growth after 5 days. Procedures Date of Service Date of Service: 08/26/23 Progress Note: A&P Assessment and plan (1) Status post small bowel resection: Status: Acute Assessment and Plan: NGT clamped - will see how much residuals very shift being conservative with NGT removal - he had large amounts of output, last week path report c/w ischemic changes all the way to margin doing well overall he is comfortable with plan he can have sips of clears TPN Time Spent With Patient Time: Total time managing care of this patient today ____ minutes. Quality Stroke Does the patient have a stroke diagnosis?: No VTE Prior VTE?: No VTE Risk Level:: Medical - moderate - high VTE Device Contraindication: Treatment Not Indicated VTE Drug Contraindication: N/A - Med Ordered
[2023-08-25] MEDS: Lidocaine 4 % Patch ADH..PATCH 1 PATCH TRANSDERMA (12:28)
[2023-08-25 12:31] LABS: Glucose, Whole Blood 137 mg/dL (60-115)
--- NOTE | 2023-08-25 13:39 | HO.PM.IMPN ---
Subjective Subjective Date of Service: 08/25/23 Interval History: NGT clamped denies abd pain/N/V passing stool + flatus Review of Systems Review of Systems: Yes all other systems are reviewed and are negative Physical Exam Vital Signs: Vital Signs: Last Vital Signs Temp 97.3 F 08/25/23 12:36 Pulse 100 08/25/23 12:36 Resp 20 08/25/23 12:36 BP 106/76 08/25/23 12:36 Pulse Ox 94 08/25/23 12:36 O2 Del Method Room Air 08/25/23 12:36 O2 Flow Rate 2 08/25/23 07:52 FiO2 70 08/11/23 13:00 BMI result Body Mass Index 46.0 Gen: in no acute distress HEENT: sclera anicteric, moist mucus membranes Neck: supple, RIJ CVC Lungs: clear to auscultation bilaterally Heart: regular rate and rhythm, no murmurs Abd: soft, non-tender, non-distended, morbidly obese; NGT clamped Ext: no edema Skin: warm/well-perfused Neuro: alert and oriented x3, no focal findings Psych: appropriate affect Objective Data Active Medications Bisacodyl (Bisacodyl 10 Mg Supp.Rect) 10 mg [place] DAILY PRN PRN Reason: Constipation Calcium Carbonate (Calcium Carbonate 750 Mg Tab.Chew) 750 mg PO Q6H PRN PRN Reason: Heartburn Last Admin: 08/14/23 22:28 Dose: 750 mg Documented By: RANDY Comments: given for c/o heartburn Dextrose (Dextrose 50 % 25 Gm/50 Ml Syringe) 25 gm IVPUSH Q15M PRN; Protocol PRN Reason: per Hypoglycemia Standing Ord. Enoxaparin Sodium (Enoxaparin Sodium 40 Mg/0.4 Ml Syringe) 40 mg SUBCUT Q24H [facility] Last Admin: 08/25/23 12:26 Dose: 40 mg Documented By: MYAH Glucose (Glucose Gel 15 Gm Gel..Gram.) 15 gm PO Q15M PRN; Protocol PRN Reason: per Hypoglycemia Standing Ord. Nutrition (Parenteral) (Parenteral Nutrition) 2,040 mls @ 85 mls/hr IV .Q24H [facility]; Protocol Stop: 08/25/23 20:59 Last Admin: 08/24/23 22:37 Dose: 85 mls/hr Documented By: RANDY Piperacillin Sod/Tazobactam (Sod 3.375 gm/ Sodium Chloride) 50 mls @ 100 mls/hr IV Q6H [facility] Last Infusion: 08/25/23 13:36 Dose: Infused Documented By: MYAH Nutrition (Parenteral) (Parenteral Nutrition) 2,040 mls @ 85 mls/hr IV .Q24H [facility]; Protocol Stop: 08/26/23 20:59 Insulin Human Lispro (Insulin Lispro 100 Unit/Ml 3 Ml Vial) 0 unit SUBCUT Q6H [facility]; Protocol Last Admin: 08/25/23 12:28 Dose: Not Given Documented By: MYAH Non-Admin Reason: No Insulin Coverage Lidocaine (Lidocaine 4 % Patch Adh..Patch) 1 patch TRANSDERMA DAILY [facility]; Protocol Last Admin: 08/25/23 12:28 Dose: 1 patch Documented By: MYAH Morphine Sulfate (Morphine Sulfate 4 Mg/Ml Cartridge) 4 mg IVPUSH Q4H PRN; Protocol PRN Reason: severe pain Pharmacy Consult (Consult Rx Parenteral Nutrition Ordering) 1 each MISCELLANE DAILY PRN PRN Reason: Consult order Prochlorperazine Edisylate (Prochlorperazine Edisylate 10 Mg/2 Ml Vial) 10 mg IVPUSH Q4H PRN PRN Reason: Nausea and Vomiting Last Admin: 08/19/23 05:15 Dose: 10 mg Documented By: ANTOIC Sodium Chloride (0.9 % Sodium Chloride Flush 3 Ml Syringe) 3 ml IVFLUSH QSHIFT [facility] Last Admin: 08/25/23 12:27 Dose: 3 ml Documented By: MYAH Sodium Chloride (Sodium Chloride 0.65 % Nasal 44 Ml Sprbtl) 1 spray NOSTRIL-B Q1H PRN PRN Reason: nasal dryness Labs 08/22/23 05:52 08/25/23 05:50 Labs: Laboratory Results - last 24 hr 08/24/23 08/24/23 08/25/23 15:13 20:08 03:59 Hold Purple Top Anion Gap Estim Creat Clear Calc Estimated GFR POC Glucose 141 H 138 H 175 H Random Glucose Calcium Phosphorus Magnesium Albumin Triglycerides 08/25/23 08/25/23 05:50 12:28 Hold Purple Top SEE NOTE Anion Gap 9 L Estim Creat Clear Calc 179.4 Estimated GFR > 60 POC Glucose 137 H Random Glucose 160 H Calcium 8.2 L Phosphorus 2.9 Magnesium 1.9 Albumin 2.6 L Triglycerides 167 H Microbiology Microbiology Results: Microbiology 08/19/23 22:17 Blood Culture - Final Blood - Venous No growth after 5 days. 08/19/23 22:17 Blood Culture - Final Blood - Venous No growth after 5 days. Assessment and Plan (1) Status post small bowel resection: Status: Acute (2) DVT (deep venous thrombosis): Status: Acute (3) Guillain-Felton syndrome: Status: Acute Plan d20 53yo wheelchair-bound M with Guillain-Felton syndrome, hx DVT/PE (Dec 2021) on Xarelto presented with N/V/abd pain and admitted for SBO acute decompensation 08/09/23 requiring emergent laparotomy with JACQUIE, 140cm of ischemic small bowel was resected postoperatively was in ICU for pressor support stepped down to IMC 08/12/23 NGT removed + clears started 08/13/23, but then replaced 08/19/23 for SBO vs ileus SBO complicated by ischemic bowel + performation; recurrent SBO vs ileus - NGT clamped, Surgery following, sips of clears; conservative with NGT removal given need for replacement - on TPN via CVC that was placed 08/09/23. PICC ordered to be done today then remove CVC. Continue TPN. - fever on 08/20/23 resolved, d/c pip-yudy in absence of signs of infection [cultures negative] nocturnal hypoxia/mod-sev SHAVON - CPAP per Pulmonology. Upon discharge, will need sleep lab CPAP titration study. ANA - resolved after fluid resuscitation hx DVT/PE - held rivaroxaban; resume when ok with Surgery Guillain-Felton syndrome - stable; on monthly IVIg VTE ppx - LMWH dispo - will need STR eventually In my clinical judgment, the patient requires continued inpatient hospitalization for the following reasons: TPN Total time managing care of this patient today: 45 minutes. Quality Stroke Does the patient have a stroke diagnosis?: No VTE Prior VTE?: No VTE Risk Level:: Medical - moderate - high VTE Device Contraindication: Treatment Not Indicated VTE Drug Contraindication: N/A - Med Ordered
--- NOTE | 2023-08-25 14:55 | PC.NURSE ---
MD came to assess NG tube, per MD flush with sterile water once a day to ensure patency. NG tube flushed with 200cc of sterile water, pt tolerated well. NG tube clamped. MD notified will continue to monitor , all other medical needs met at this time, call viveros within reach.
--- NOTE | 2023-08-25 15:09 | PM.EVENT ---
Event Note Date of Service: 08/26/23 Event Note: Says he feels well Passing flatus and BMs NG tube has been clamped - periodically released suction for shift with minimal output Patient denies any pain or nausea or vomiting with clamping He looks well Will continue to keep NG tube clamped and periodically release per shift May consider removing the NG tube tomorrow Time Spent With Patient Time: Total time managing care of this patient today ____ minutes.
[2023-08-25 16:21] LABS: Glucose, Whole Blood 113 mg/dL (60-115)
[2023-08-25] MEDS: Morphine Sulfate 4 MG/ML CARTRIDGE IVPUSH (16:36)
--- NOTE | 2023-08-25 18:13 | HO.PICC ---
PICC Line Insertion NPICC Diagnosis: Bowel Obstruction Indication: TPN Pertinent Labs: reviewed Technique: Following informed consent including risks, benefits and alternatives and using sterile technique including cap and mask, sterile gown, glove and drape, the left arm was prepped and draped in the usual sterile fashion of full barrier technique with CHG. Following completion of [place] Protocol the skin and soft tissues were anesthetized with 1% Lidocaine plain. Using ultrasound guidance, left basilic vein access was obtained. Over an 0.018 wire through peel-away sheath, a 5FR double lumen PASV PICC line was positioned. Catheter length is 52cm internal length, 0cm external length, for a total trimmed length of 52cm. The procedure was performed in 272. Tip verification was performed by Marty Anderson with Sherlock 3CG. Tip located in SVC. Ultrasound was used to document vein patency and for needle entry. A formal ultrasound picture and cardiac rhythm strip was recorded. [employer] has released the line for use and it is currently dressed with a StatLock, Tegaderm, and CHG disc. Verification has been performed for blood return and line patency. Arm Circumference: 38cm Equipment: [employer] Scam PowerPICC SOLO catheter with [id number] Tip Catheter Type: 5FR double lumen PASV Picc catheter Lot #: [id number]
[2023-08-25] MEDS: Parenteral Nutrition 2,040 ML 85 ML IV (22:45)
[2023-08-25 23:32] LABS: Glucose, Whole Blood 174 mg/dL (60-115)
[2023-08-26] VITALS (7 sets, daily range): BP systolic 103–146; BP diastolic 72–85; PULSE 67–108; RESP 20; TEMP 36.2–36.9; O2SAT 95–99
[2023-08-26] MEDS: Insulin Lispro 100 UNIT/ML 3 ML VIAL SUBCUT ×3 (01:00→22:30)
[2023-08-26] MEDS: 0.9 % Sodium Chloride Flush 10 ML SYRINGE 5 ML IVFLUSH ×2 (01:00→08:04)
[2023-08-26 06:12] LABS: Glucose, Whole Blood 175 mg/dL (60-115)
[2023-08-26 07:06] LABS: Hematocrit 34.9 % (42.0-52.0); Hemoglobin 11.2 g/dl (14.0-18.0); Mean Corpuscular HGB Conc 32.1 g/dl (31.0-36.0); Mean Corpuscular Hemoglobin 28.1 pg (27.0-33.0); Mean Corpuscular Volume 87.5 fL (80.0-98.0); Mean Platelet Volume 9.7 fL (9.4-12.4); Platelet Count 458 X10*3/uL (160-400); Red Blood Count 3.99 X10*6/uL (4.60-5.80); Red Cell Distribution Width 14.5 % (11.0-16.0); White Blood Count 9.6 X10*3/uL (4.8-10.8)
[2023-08-26 07:11] LABS: Albumin Level 2.8 g/dL (3.5-5.0); Anion Gap 13 (12-20); Blood Urea Nitrogen 13 mg/dL (9-16); Calcium 8.8 mg/dL (8.4-10.2); Carbon Dioxide 23 mmol/L (22-29); Chloride 108 mmol/L (96-108); Creatinine Clr Calc Pharmacy 234.2; Estimated Glomerular Filt Rate > 60; Glucose Random 181 mg/dL (60-115); Potassium 3.3 mmol/L (3.3-5.1); Sodium 141 mmol/L (135-145); Triglycerides 156 mg/dL (<150)
[2023-08-26 07:50] LABS: Glucose, Whole Blood 172 mg/dL (60-115)
[2023-08-26] MEDS: Enoxaparin Sodium 40 MG/0.4 ML SYRINGE SUBCUT (08:04)
[2023-08-26] MEDS: 0.9 % Sodium Chloride Flush 3 ML SYRINGE IVFLUSH ×2 (08:04→22:35)
[2023-08-26] MEDS: Lidocaine 4 % Patch ADH..PATCH 1 PATCH TRANSDERMA (08:05)
--- NOTE | 2023-08-26 08:39 | PM.PNGS ---
Subjective Subjective Date of Service: 08/30/23 Interval history: subjective feels well passing flatus described episode of emesis, small amount early this AM NGT had been clamped, released once a shift with minimal output Physical Exam Vital Signs: Vital Signs: Last Vital Signs Temp 98.1 F 08/26/23 07:35 Pulse 98 08/26/23 07:35 Resp 20 08/26/23 07:35 BP 120/76 08/26/23 07:35 Pulse Ox 99 08/26/23 07:35 O2 Del Method Nasal Cannula 08/26/23 07:35 O2 Flow Rate 2 08/26/23 07:35 FiO2 70 08/11/23 13:00 BMI result Body Mass Index 46.0 Const: General: comfortable and no acute distress Resp: Effort & Inspection: normal respiratory effort Cardio: Rate: regular rate GI: Other: incision clean and dry Palpation (GI): Soft to palpation, not firm, nontender and no guarding Objective Data Active Medications Bisacodyl (Bisacodyl 10 Mg Supp.Rect) 10 mg [place] DAILY PRN PRN Reason: Constipation Calcium Carbonate (Calcium Carbonate 750 Mg Tab.Chew) 750 mg PO Q6H PRN PRN Reason: Heartburn Last Admin: 08/14/23 22:28 Dose: 750 mg Documented By: RANDY Comments: given for c/o heartburn Dextrose (Dextrose 50 % 25 Gm/50 Ml Syringe) 25 gm IVPUSH Q15M PRN; Protocol PRN Reason: per Hypoglycemia Standing Ord. Enoxaparin Sodium (Enoxaparin Sodium 40 Mg/0.4 Ml Syringe) 40 mg SUBCUT Q24H [facility] Last Admin: 08/26/23 08:04 Dose: 40 mg Documented By: AGUEDA Glucose (Glucose Gel 15 Gm Gel..Gram.) 15 gm PO Q15M PRN; Protocol PRN Reason: per Hypoglycemia Standing Ord. Nutrition (Parenteral) (Parenteral Nutrition) 2,040 mls @ 85 mls/hr IV .Q24H [facility]; Protocol Stop: 08/26/23 20:59 Last Admin: 08/25/23 22:45 Dose: 85 mls/hr Documented By: SANG Insulin Human Lispro (Insulin Lispro 100 Unit/Ml 3 Ml Vial) 0 unit SUBCUT Q6H [facility]; Protocol Last Admin: 08/26/23 08:05 Dose: 2 unit Documented By: AGUEDA Lidocaine (Lidocaine 4 % Patch Adh..Patch) 1 patch TRANSDERMA DAILY [facility]; Protocol Last Admin: 08/26/23 08:05 Dose: 1 patch Documented By: AGUEDA Morphine Sulfate (Morphine Sulfate 4 Mg/Ml Cartridge) 4 mg IVPUSH Q4H PRN; Protocol PRN Reason: severe pain Last Admin: 08/25/23 16:36 Dose: 4 mg Documented By: MYAH Pharmacy Consult (Consult Rx Parenteral Nutrition Ordering) 1 each MISCELLANE DAILY PRN PRN Reason: Consult order Prochlorperazine Edisylate (Prochlorperazine Edisylate 10 Mg/2 Ml Vial) 10 mg IVPUSH Q4H PRN PRN Reason: Nausea and Vomiting Last Admin: 08/19/23 05:15 Dose: 10 mg Documented By: ANTOIC Sodium Chloride (0.9 % Sodium Chloride Flush 3 Ml Syringe) 3 ml IVFLUSH QSHIFT [facility] Last Admin: 08/26/23 08:04 Dose: 3 ml Documented By: AGUEDA Sodium Chloride (Sodium Chloride 0.65 % Nasal 44 Ml Sprbtl) 1 spray NOSTRIL-B Q1H PRN PRN Reason: nasal dryness Sodium Chloride (0.9 % Sodium Chloride Flush 10 Ml Syringe) 5 ml IVFLUSH TID [facility] Last Admin: 08/26/23 08:04 Dose: 5 ml Documented By: AGUEDA Labs 08/26/23 06:47 08/30/23 06:48 Labs: Laboratory Results - last 24 hr 08/25/23 08/25/23 08/25/23 12:28 16:18 23:26 MCV MCH MCHC RDW Plt Count MPV Absolute Nucleated RBC Nucleated RBC % (auto) Anion Gap Estim Creat Clear Calc Estimated GFR POC Glucose 137 H 113 174 H Random Glucose Calcium Albumin Triglycerides 08/26/23 08/26/23 08/26/23 06:05 06:38 06:47 MCV 87.5 MCH 28.1 MCHC 32.1 RDW 14.5 Plt Count 458 H MPV 9.7 Absolute Nucleated RBC 0.000 Nucleated RBC % (auto) 0.0 Anion Gap 13 Estim Creat Clear Calc 234.2 Estimated GFR > 60 POC Glucose 175 H Random Glucose 181 H Calcium 8.8 D Albumin 2.8 L Triglycerides 156 H 08/26/23 07:40 MCV MCH MCHC RDW Plt Count MPV Absolute Nucleated RBC Nucleated RBC % (auto) Anion Gap Estim Creat Clear Calc Estimated GFR POC Glucose 172 H Random Glucose Calcium Albumin Triglycerides Procedures Date of Service Date of Service: 08/30/23 Progress Note: A&P Assessment and plan (1) Status post small bowel resection: Status: Acute Assessment and Plan: NGT had been clamped for long periods of time without issues however, he had small amount of emesis, nausea, this AM NGT put back on suction - minimal output at this time continues to pass flatus TPN keep NGT in place - likely with prolonged ileus, vs anastomotic stenosis from ischemia otherwise doing much better ok to have sips of clears Time Spent With Patient Time: Total time managing care of this patient today ____ minutes. Quality Stroke Does the patient have a stroke diagnosis?: No VTE Prior VTE?: No VTE Risk Level:: Medical - moderate - high VTE Device Contraindication: Treatment Not Indicated VTE Drug Contraindication: N/A - Med Ordered
--- NOTE | 2023-08-26 09:51 | HO.PM.IMPN ---
Subjective Subjective Date of Service: 08/26/23 Interval History: small amount of vomitus this AM passing gas + stool denies abd pain PICC placed yesterday Review of Systems Review of Systems: Yes all other systems are reviewed and are negative Physical Exam Vital Signs: Vital Signs: Last Vital Signs Temp 98.1 F 08/26/23 07:35 Pulse 98 08/26/23 07:35 Resp 20 08/26/23 07:35 BP 120/76 08/26/23 07:35 Pulse Ox 99 08/26/23 07:35 O2 Del Method Nasal Cannula 08/26/23 07:35 O2 Flow Rate 2 08/26/23 07:35 FiO2 70 08/11/23 13:00 BMI result Body Mass Index 46.0 Gen: in no acute distress HEENT: sclera anicteric, moist mucus membranes Neck: supple, RIJ CVC Lungs: clear to auscultation bilaterally Heart: regular rate and rhythm, no murmurs Abd: soft, non-tender, non-distended, morbidly obese; NGT clamped Ext: no edema, LUE PICC Skin: warm/well-perfused Neuro: alert and oriented x3, no focal findings Psych: appropriate affect Objective Data Active Medications Bisacodyl (Bisacodyl 10 Mg Supp.Rect) 10 mg [place] DAILY PRN PRN Reason: Constipation Calcium Carbonate (Calcium Carbonate 750 Mg Tab.Chew) 750 mg PO Q6H PRN PRN Reason: Heartburn Last Admin: 08/14/23 22:28 Dose: 750 mg Documented By: RANDY Comments: given for c/o heartburn Dextrose (Dextrose 50 % 25 Gm/50 Ml Syringe) 25 gm IVPUSH Q15M PRN; Protocol PRN Reason: per Hypoglycemia Standing Ord. Enoxaparin Sodium (Enoxaparin Sodium 40 Mg/0.4 Ml Syringe) 40 mg SUBCUT Q24H [facility] Last Admin: 08/26/23 08:04 Dose: 40 mg Documented By: AGUEDA Glucose (Glucose Gel 15 Gm Gel..Gram.) 15 gm PO Q15M PRN; Protocol PRN Reason: per Hypoglycemia Standing Ord. Nutrition (Parenteral) (Parenteral Nutrition) 2,040 mls @ 85 mls/hr IV .Q24H [facility]; Protocol Stop: 08/26/23 20:59 Last Admin: 08/25/23 22:45 Dose: 85 mls/hr Documented By: SANG Insulin Human Lispro (Insulin Lispro 100 Unit/Ml 3 Ml Vial) 0 unit SUBCUT Q6H [facility]; Protocol Last Admin: 08/26/23 08:05 Dose: 2 unit Documented By: AGUEDA Lidocaine (Lidocaine 4 % Patch Adh..Patch) 1 patch TRANSDERMA DAILY [facility]; Protocol Last Admin: 08/26/23 08:05 Dose: 1 patch Documented By: AGUEDA Morphine Sulfate (Morphine Sulfate 4 Mg/Ml Cartridge) 4 mg IVPUSH Q4H PRN; Protocol PRN Reason: severe pain Last Admin: 08/25/23 16:36 Dose: 4 mg Documented By: MYAH Pharmacy Consult (Consult Rx Parenteral Nutrition Ordering) 1 each MISCELLANE DAILY PRN PRN Reason: Consult order Prochlorperazine Edisylate (Prochlorperazine Edisylate 10 Mg/2 Ml Vial) 10 mg IVPUSH Q4H PRN PRN Reason: Nausea and Vomiting Last Admin: 08/19/23 05:15 Dose: 10 mg Documented By: ANTOIC Sodium Chloride (0.9 % Sodium Chloride Flush 3 Ml Syringe) 3 ml IVFLUSH QSHIFT [facility] Last Admin: 08/26/23 08:04 Dose: 3 ml Documented By: AGUEDA Sodium Chloride (Sodium Chloride 0.65 % Nasal 44 Ml Sprbtl) 1 spray NOSTRIL-B Q1H PRN PRN Reason: nasal dryness Sodium Chloride (0.9 % Sodium Chloride Flush 10 Ml Syringe) 5 ml IVFLUSH TID [facility] Last Admin: 08/26/23 08:04 Dose: 5 ml Documented By: AGUEDA Labs 08/26/23 06:47 08/26/23 06:38 Labs: Laboratory Results - last 24 hr 08/25/23 08/25/23 08/25/23 12:28 16:18 23:26 MCV MCH MCHC RDW Plt Count MPV Absolute Nucleated RBC Nucleated RBC % (auto) Anion Gap Estim Creat Clear Calc Estimated GFR POC Glucose 137 H 113 174 H Random Glucose Calcium Albumin Triglycerides 08/26/23 08/26/23 08/26/23 06:05 06:38 06:47 MCV 87.5 MCH 28.1 MCHC 32.1 RDW 14.5 Plt Count 458 H MPV 9.7 Absolute Nucleated RBC 0.000 Nucleated RBC % (auto) 0.0 Anion Gap 13 Estim Creat Clear Calc 234.2 Estimated GFR > 60 POC Glucose 175 H Random Glucose 181 H Calcium 8.8 D Albumin 2.8 L Triglycerides 156 H 08/26/23 07:40 MCV MCH MCHC RDW Plt Count MPV Absolute Nucleated RBC Nucleated RBC % (auto) Anion Gap Estim Creat Clear Calc Estimated GFR POC Glucose 172 H Random Glucose Calcium Albumin Triglycerides Assessment and Plan (1) Status post small bowel resection: Status: Acute (2) DVT (deep venous thrombosis): Status: Acute (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 d21 53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, 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 PICC placed 08/25/23. d/c RIJ CVC that was placed 08/09/23. daily electrolyte checks for TPN - fever on 08/20/23 resolved, d/c'ed pip-yudy in absence of signs of infection [cultures negative] nocturnal hypoxia/mod-sev SHAVON - CPAP at night [once NGT out] per Pulmonology. Upon discharge, will need sleep lab CPAP titration study. ANA - resolved after fluid resuscitation hx DVT/PE - held rivaroxaban; resume when ok with Surgery Guillain-[place] syndrome - stable; on monthly IVIg VTE ppx - LMWH dispo - will need STR eventually In my clinical judgment, the patient requires continued inpatient hospitalization for the following reasons: TPN Total time managing care of this patient today: 35 minutes. Quality Stroke Does the patient have a stroke diagnosis?: No VTE Prior VTE?: No VTE Risk Level:: Medical - moderate - high VTE Device Contraindication: Treatment Not Indicated VTE Drug Contraindication: N/A - Med Ordered
--- NOTE | 2023-08-26 10:21 | MHC.CM.PN ---
CM met with pt to discuss DC plan. He said that he has been to STR before at [facility] and he does not want to go to STR at DC, he has assistance at home and wants to go home. CM will continue to follow to determine DC plan when pt is ready.
--- NOTE | 2023-08-26 10:44 | MHC.CLN ---
F/U PT REMAINS NPO PICC LINE PLACED NOTED EPISODE OF SMALL VOMITUS TODAY REVIEWED LABS-TRIGS REMAIN BORDERLINE HIGH BUT STABLE DISCUSSED WITH PHARMACY CONTINUE TPN AT 85ML/HR WITH 86G LIPIDS PROVIDES 2308 TOTAL KCALS (30KCALS/KG BASED ON CMW) , 102G PROTEIN (1.3G/KG), 306G DEXTROSE REPLETE LYTES NEEDED TPN WILL PROMOTE WOUND HEALING
[2023-08-26 12:08] LABS: Magnesium 1.9 mg/dL (1.6-2.6)
--- NOTE | 2023-08-26 15:35 | PM.EVENT ---
Event Note Date of Service: 08/26/23 Event Note: Patient on NG tube suction intermittently Still has output Passing flatus and BMs He is hesitant to have the NG tube pulled out because of the large amounts drained last week with insertion He wants to wait for a couple of days he how the output is Plan to repeat clamping trial tomorrow Abdomen remained soft and benign He clinically looks well Some serosanguineous drainage from his incision TPN Time Spent With Patient Time: Total time managing care of this patient today ____ minutes.
[2023-08-26 16:00] LABS: Glucose, Whole Blood 144 mg/dL (60-115)
--- NOTE | 2023-08-26 19:06 | PC.NURSE ---
This RN talked with patient asking if he would like to get washed up for the day. Patient states that he would like for his girlfriend to wash him and that he is waiting for her to come to visit and that she would be here shortly. Patients girlfriend did not come at all during day shift. This RN asked the patient multiple times if he would like to get cleaned up by [employer] and RN but continued to refuse still stating he is waiting for girlfriend.
[2023-08-26 20:25] LABS: Glucose, Whole Blood 170 mg/dL (60-115)
[2023-08-26] MEDS: Parenteral Nutrition 2,040 ML 85 ML IV (22:35)
[2023-08-26 23:22] LABS: Glucose, Whole Blood 136 mg/dL (60-115)
[2023-08-27 02:33] LABS: Glucose, Whole Blood 181 mg/dL (60-115)
[2023-08-27] MEDS: Insulin Lispro 100 UNIT/ML 3 ML VIAL SUBCUT ×3 (03:13→16:25)
[2023-08-27 04:00] VITALS: BP 114/74; PULSE 107; RESP 20; TEMP 37.1; O2SAT 97
[2023-08-27 05:45] LABS: Glucose, Whole Blood 180 mg/dL (60-115)
[2023-08-27 07:04] LABS: Albumin Level 2.7 g/dL (3.5-5.0); Anion Gap 12 (12-20); Blood Urea Nitrogen 13 mg/dL (9-16); Calcium 8.6 mg/dL (8.4-10.2); Carbon Dioxide 25 mmol/L (22-29); Chloride 107 mmol/L (96-108); Creatinine Clr Calc Pharmacy 207.4; Estimated Glomerular Filt Rate > 60; Glucose Random 181 mg/dL (60-115); Potassium 3.1 mmol/L (3.3-5.1); Sodium 141 mmol/L (135-145); Triglycerides 166 mg/dL (<150)
[2023-08-27 07:44] VITALS: BP 119/73; PULSE 102; RESP 20; TEMP 36.9; O2SAT 100
[2023-08-27 08:08] LABS: Magnesium 1.9 mg/dL (1.6-2.6); Phosphorus 3.3 mg/dL (2.7-4.5)
--- NOTE | 2023-08-27 08:48 | P.PNGS_ITS ---
Subjective Subjective Date of Service: 08/27/23 Interval history: Denies abdominal pain. Reports some vomiting after brushing his teeth. Has had several liquid bowel movements today. NG tube not producing much fluid. Physical Exam 2 Vital Signs: Vital Signs: Last Vital Signs Temp 98.5 F 08/27/23 07:44 Pulse 102 H 08/27/23 07:44 Resp 20 08/27/23 07:44 BP 119/73 08/27/23 07:44 Pulse Ox 100 08/27/23 07:44 O2 Del Method Nasal Cannula 08/27/23 07:44 O2 Flow Rate 2 08/27/23 07:44 FiO2 70 08/11/23 13:00 BMI result Body Mass Index 46.0 Const: General: no acute distress Nutritional Appearance: well nourished Orientation/consciousness: patient oriented x3 Resp: Effort & Inspection: normal respiratory effort GI: Other: Midline incision intact with some discharge from the lower incision. Dressings changed to lower incision. Generally soft and nondistended. Neuro: General: patient oriented x3 Extrem: General: Yes edema Objective Data Active Medications Bisacodyl (Bisacodyl 10 Mg Supp.Rect) 10 mg [place] DAILY PRN PRN Reason: Constipation Calcium Carbonate (Calcium Carbonate 750 Mg Tab.Chew) 750 mg PO Q6H PRN PRN Reason: Heartburn Last Admin: 08/14/23 22:28 Dose: 750 mg Documented By: RANDY Comments: given for c/o heartburn Dextrose (Dextrose 50 % 25 Gm/50 Ml Syringe) 25 gm IVPUSH Q15M PRN; Protocol PRN Reason: per Hypoglycemia Standing Ord. Enoxaparin Sodium (Enoxaparin Sodium 40 Mg/0.4 Ml Syringe) 40 mg SUBCUT Q24H [facility] Last Admin: 08/26/23 08:04 Dose: 40 mg Documented By: AGUEDA Glucose (Glucose Gel 15 Gm Gel..Gram.) 15 gm PO Q15M PRN; Protocol PRN Reason: per Hypoglycemia Standing Ord. Nutrition (Parenteral) (Parenteral Nutrition) 2,040 mls @ 85 mls/hr IV .Q24H [facility]; Protocol Stop: 08/27/23 20:59 Last Admin: 08/26/23 22:35 Dose: 85 mls/hr Documented By: LOPEZ Potassium Chloride (Potassium Chloride/H20) 10 meq in 100 mls @ 100 mls/hr IV Q1H [facility] Stop: 08/27/23 09:59 Insulin Human Lispro (Insulin Lispro 100 Unit/Ml 3 Ml Vial) 0 unit SUBCUT Q6H [facility]; Protocol Last Admin: 08/27/23 03:13 Dose: 2 unit Documented By: LOPEZ Lidocaine (Lidocaine 4 % Patch Adh..Patch) 1 patch TRANSDERMA DAILY [facility]; Protocol Last Admin: 08/26/23 08:05 Dose: 1 patch Documented By: AGUEDA Morphine Sulfate (Morphine Sulfate 4 Mg/Ml Cartridge) 4 mg IVPUSH Q4H PRN; Protocol PRN Reason: severe pain Last Admin: 08/25/23 16:36 Dose: 4 mg Documented By: MYAH Prochlorperazine Edisylate (Prochlorperazine Edisylate 10 Mg/2 Ml Vial) 10 mg IVPUSH Q4H PRN PRN Reason: Nausea and Vomiting Last Admin: 08/19/23 05:15 Dose: 10 mg Documented By: JANETTOIC Sodium Chloride (0.9 % Sodium Chloride Flush 3 Ml Syringe) 3 ml IVFLUSH QSHIFT [facility] Last Admin: 08/26/23 22:35 Dose: 3 ml Documented By: LOPEZ Sodium Chloride (Sodium Chloride 0.65 % Nasal 44 Ml Sprbtl) 1 spray NOSTRIL-B Q1H PRN PRN Reason: nasal dryness Sodium Chloride (0.9 % Sodium Chloride Flush 10 Ml Syringe) 5 ml IVFLUSH TID [facility] Last Admin: 08/26/23 23:24 Dose: Not Given Documented By: LOPEZ Non-Admin Reason: Previously Administered Labs 08/26/23 06:47 08/27/23 06:33 Labs: Laboratory Results - last 24 hr 08/26/23 08/26/23 08/26/23 06:38 15:52 20:17 Hold Purple Top Anion Gap Estim Creat Clear Calc Estimated GFR POC Glucose 144 H 170 H Random Glucose Calcium Phosphorus 3.0 Magnesium 1.9 Albumin Triglycerides Hold Yellow Top 08/26/23 08/27/23 08/27/23 23:15 02:28 05:37 Hold Purple Top Anion Gap Estim Creat Clear Calc Estimated GFR POC Glucose 136 H 181 H 180 H Random Glucose Calcium Phosphorus Magnesium Albumin Triglycerides Hold Yellow Top 08/27/23 06:33 Hold Purple Top SEE NOTE Anion Gap 12 Estim Creat Clear Calc 207.4 Estimated GFR > 60 POC Glucose Random Glucose 181 H Calcium 8.6 Phosphorus 3.3 Magnesium 1.9 Albumin 2.7 L Triglycerides 166 H Hold Yellow Top See Note Procedures Date of Service Date of Service: 08/27/23 Progress Note: A&P Assessment and plan (1) Status post small bowel resection: Status: Acute Assessment and Plan: Patient continues to have liquid bowel movements as well as some nausea and vomiting. NG tube checked, switched from intermittent to continuous low suction. Two began to produce a large amount of clear bilious fluid. (intermittent suction may not be working). Continue NPO with NG tube suctioning Continue TPN Continue physical therapy Time Spent With Patient Time: Total time managing care of this patient today ____ minutes. Quality Stroke Does the patient have a stroke diagnosis?: No VTE Prior VTE?: No VTE Risk Level:: Medical - moderate - high VTE Device Contraindication: Treatment Not Indicated VTE Drug Contraindication: N/A - Med Ordered
--- NOTE | 2023-08-27 10:37 | MHC.CLN ---
F/U PT REMAINS NPO PT REPORTED VOMITING AND LIQUID BMS REVIEWED LABS-TRIGS REMAIN BORDERLINE HIGH BUT STABLE DISCUSSED WITH PHARMACY CONTINUE TPN AT MAX GOAL RATE 85ML/HR WITH 86G LIPIDS PROVIDES 2308 TOTAL KCALS (30KCALS/KG BASED ON CMW) , 102G PROTEIN (1.3G/KG), 306G DEXTROSE REPLETE LYTES NEEDED TPN WILL PROMOTE WOUND HEALING (STAGE 2 R BUTTOCKS) RD CAN BE REACHED DURING OFF HOURS VIA TIGER CONNECT IF NEEDED
[2023-08-27] MEDS: Enoxaparin Sodium 40 MG/0.4 ML SYRINGE SUBCUT (10:46)
[2023-08-27] MEDS: 0.9 % Sodium Chloride Flush 3 ML SYRINGE IVFLUSH ×3 (10:46→16:24)
[2023-08-27] MEDS: Potassium Chloride/H20 10 MEQ/100 ML PIGGYBACK 100 MEQ IV ×2 (10:47→16:25)
[2023-08-27] MEDS: Lidocaine 4 % Patch ADH..PATCH 1 PATCH TRANSDERMA (10:51)
--- NOTE | 2023-08-27 11:28 | PC.NURSE ---
NG tube removed from patient per MD Holley
[2023-08-27 11:31] VITALS: BP 102/65; PULSE 100; RESP 20; TEMP 37; O2SAT 99
[2023-08-27 11:32] LABS: Glucose, Whole Blood 169 mg/dL (60-115)
[2023-08-27 12:21] VITALS: BP 102/65; PULSE 100; O2SAT 99
--- NOTE | 2023-08-27 13:01 | HO.PM.IMPN ---
Subjective Subjective Date of Service: 08/27/23 Interval History: no abd pain NGT on suction with bilious output passing stool and gas Review of Systems Review of Systems: Yes all other systems are reviewed and are negative Physical Exam Vital Signs: Vital Signs: Last Vital Signs Temp 98.6 F 08/27/23 11:31 Pulse 100 08/27/23 12:21 Resp 20 08/27/23 11:31 BP 102/65 08/27/23 12:21 Pulse Ox 99 08/27/23 12:21 O2 Del Method Nasal Cannula 08/27/23 11:31 O2 Flow Rate 2 08/27/23 11:31 FiO2 70 08/11/23 13:00 BMI result Body Mass Index 46.0 Gen: in no acute distress HEENT: sclera anicteric, moist mucus membranes Neck: supple Lungs: clear to auscultation bilaterally Heart: regular rate and rhythm, no murmurs Abd: soft, non-tender, non-distended, morbidly obese; some drainage from lower part of incision NGT to suction Ext: no edema, LUE PICC Skin: warm/well-perfused Neuro: alert and oriented x3, no focal findings Psych: appropriate affect Objective Data Active Medications Bisacodyl (Bisacodyl 10 Mg Supp.Rect) 10 mg [place] DAILY PRN PRN Reason: Constipation Calcium Carbonate (Calcium Carbonate 750 Mg Tab.Chew) 750 mg PO Q6H PRN PRN Reason: Heartburn Last Admin: 08/14/23 22:28 Dose: 750 mg Documented By: RANDY Comments: given for c/o heartburn Dextrose (Dextrose 50 % 25 Gm/50 Ml Syringe) 25 gm IVPUSH Q15M PRN; Protocol PRN Reason: per Hypoglycemia Standing Ord. Enoxaparin Sodium (Enoxaparin Sodium 40 Mg/0.4 Ml Syringe) 40 mg SUBCUT Q24H [facility] Last Admin: 08/27/23 10:46 Dose: 40 mg Documented By: CORNEL Glucose (Glucose Gel 15 Gm Gel..Gram.) 15 gm PO Q15M PRN; Protocol PRN Reason: per Hypoglycemia Standing Ord. Nutrition (Parenteral) (Parenteral Nutrition) 2,040 mls @ 85 mls/hr IV .Q24H [facility]; Protocol Stop: 08/27/23 20:59 Last Admin: 08/26/23 22:35 Dose: 85 mls/hr Documented By: LOPEZ Nutrition (Parenteral) (Parenteral Nutrition) 2,040 mls @ 85 mls/hr IV .Q24H [facility]; Protocol Stop: 08/28/23 20:59 Insulin Human Lispro (Insulin Lispro 100 Unit/Ml 3 Ml Vial) 0 unit SUBCUT Q6H [facility]; Protocol Last Admin: 08/27/23 10:46 Dose: 2 unit Documented By: CORNEL Lidocaine (Lidocaine 4 % Patch Adh..Patch) 1 patch TRANSDERMA DAILY [facility]; Protocol Last Admin: 08/27/23 10:51 Dose: 1 patch Documented By: CORNEL Morphine Sulfate (Morphine Sulfate 4 Mg/Ml Cartridge) 4 mg IVPUSH Q4H PRN; Protocol PRN Reason: severe pain Last Admin: 08/25/23 16:36 Dose: 4 mg Documented By: MYAH Pharmacy Consult (Consult Rx Parenteral Nutrition Ordering) 1 each MISCELLANE DAILY PRN PRN Reason: Consult order Prochlorperazine Edisylate (Prochlorperazine Edisylate 10 Mg/2 Ml Vial) 10 mg IVPUSH Q4H PRN PRN Reason: Nausea and Vomiting Last Admin: 08/19/23 05:15 Dose: 10 mg Documented By: ANTOIC Sodium Chloride (0.9 % Sodium Chloride Flush 3 Ml Syringe) 3 ml IVFLUSH QSHIFT [facility] Last Admin: 08/27/23 10:53 Dose: 3 ml Documented By: CORNEL Sodium Chloride (Sodium Chloride 0.65 % Nasal 44 Ml Sprbtl) 1 spray NOSTRIL-B Q1H PRN PRN Reason: nasal dryness Sodium Chloride (0.9 % Sodium Chloride Flush 10 Ml Syringe) 5 ml IVFLUSH TID [facility] Last Admin: 08/26/23 23:24 Dose: Not Given Documented By: LOPEZ Non-Admin Reason: Previously Administered Labs 08/26/23 06:47 08/27/23 06:33 Labs: Laboratory Results - last 24 hr 08/26/23 08/26/23 08/26/23 15:52 20:17 23:15 Hold Purple Top Anion Gap Estim Creat Clear Calc Estimated GFR POC Glucose 144 H 170 H 136 H Random Glucose Calcium Phosphorus Magnesium Albumin Triglycerides Hold Yellow Top 08/27/23 08/27/23 08/27/23 02:28 05:37 06:33 Hold Purple Top SEE NOTE Anion Gap 12 Estim Creat Clear Calc 207.4 Estimated GFR > 60 POC Glucose 181 H 180 H Random Glucose 181 H Calcium 8.6 Phosphorus 3.3 Magnesium 1.9 Albumin 2.7 L Triglycerides 166 H Hold Yellow Top See Note 08/27/23 11:27 Hold Purple Top Anion Gap Estim Creat Clear Calc Estimated GFR POC Glucose 169 H Random Glucose Calcium Phosphorus Magnesium Albumin Triglycerides Hold Yellow Top Assessment and Plan (1) Status post small bowel resection: Status: Acute (2) DVT (deep venous thrombosis): Status: Acute (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 d22 53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, 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 PICC placed 08/25/23. daily electrolyte checks for TPN - fever on 08/20/23 resolved, d/c'ed pip-yudy in absence of signs of infection [cultures negative] hypoK - replete, recheck level in AM nocturnal hypoxia/mod-sev SHAVON - CPAP at night [once NGT out] per Pulmonology. Upon discharge, will need sleep lab CPAP titration study. ANA - resolved after fluid resuscitation hx DVT/PE - held rivaroxaban; resume when OK with Surgery Guillain-[place] syndrome - stable; on monthly IVIG x5d and due now but would need premedication with prednisone, which would impair wound healing, so deferring for now VTE ppx - LMWH dispo - will need STR eventually In my clinical judgment, the patient requires continued inpatient hospitalization for the following reasons: TPN Total time managing care of this patient today: 35 minutes. Quality Stroke Does the patient have a stroke diagnosis?: No VTE Prior VTE?: No VTE Risk Level:: Medical - moderate - high VTE Device Contraindication: Treatment Not Indicated VTE Drug Contraindication: N/A - Med Ordered
--- NOTE | 2023-08-27 14:33 | MHC.CM.PN ---
Pt is not yet ready for DC, he did participate in PT today and rec is home PT. CM will follow and assist with DC planning.
[2023-08-27 15:37] VITALS: BP 121/81; PULSE 100; RESP 20; TEMP 36.6; O2SAT 98
[2023-08-27 18:28] LABS: Glucose, Whole Blood 157 mg/dL (60-115)
[2023-08-27] MEDS: 0.9 % Sodium Chloride Flush 10 ML SYRINGE 5 ML IVFLUSH (18:34)
[2023-08-27 19:53] VITALS: BP 150/78; PULSE 100; RESP 20; TEMP 36.9; O2SAT 100
[2023-08-28] VITALS (7 sets, daily range): BP systolic 111–136; BP diastolic 69–86; PULSE 101–108; RESP 18–20; TEMP 36.1–37.2; O2SAT 96–98; BMI 44.4
[2023-08-28] MEDS: 0.9 % Sodium Chloride Flush 3 ML SYRINGE IVFLUSH ×2 (00:01→17:48)
[2023-08-28] MEDS: Parenteral Nutrition 2,040 ML 85 ML IV ×2 (00:02→21:53)
[2023-08-28] MEDS: 0.9 % Sodium Chloride Flush 10 ML SYRINGE 5 ML IVFLUSH ×3 (00:02→21:30)
[2023-08-28] MEDS: Prochlorperazine Edisylate 10 MG/2 ML VIAL IVPUSH ×2 (00:03→21:52)
[2023-08-28 00:12] LABS: Glucose, Whole Blood 127 mg/dL (60-115)
[2023-08-28 06:18] LABS: Glucose, Whole Blood 173 mg/dL (60-115)
[2023-08-28] MEDS: Insulin Lispro 100 UNIT/ML 3 ML VIAL SUBCUT ×3 (06:37→21:52)
[2023-08-28] MEDS: Enoxaparin Sodium 40 MG/0.4 ML SYRINGE SUBCUT (07:48)
[2023-08-28] MEDS: Lidocaine 4 % Patch ADH..PATCH 1 PATCH TRANSDERMA (07:49)
[2023-08-28 08:23] LABS: Albumin Level 2.9 g/dL (3.5-5.0); Triglycerides 209 mg/dL (<150)
[2023-08-28 08:25] LABS: Anion Gap 14 (12-20); Blood Urea Nitrogen 16 mg/dL (9-16); Calcium 9.6 mg/dL (8.4-10.2); Carbon Dioxide 25 mmol/L (22-29); Chloride 104 mmol/L (96-108); Creatinine Clr Calc Pharmacy 212.3; Estimated Glomerular Filt Rate > 60; Glucose Random 187 mg/dL (60-115); Potassium 3.4 mmol/L (3.3-5.1); Sodium 140 mmol/L (135-145)
--- NOTE | 2023-08-28 09:35 | P.PNIM_ITS ---
Subjective Subjective Date of Service: 08/28/23 Interval History: NGT removed yesterday evening denies abd pain; passing stool + flatus Review of Systems Review of Systems: Yes all other systems are reviewed and are negative Physical Exam 2 Vital Signs: Vital Signs: Last Vital Signs Temp 97.1 F 08/28/23 07:50 Pulse 101 H 08/28/23 07:50 Resp 20 08/28/23 07:50 BP 136/79 08/28/23 07:50 Pulse Ox 97 08/28/23 07:50 O2 Del Method Nasal Cannula 08/28/23 07:50 O2 Flow Rate 2 08/28/23 07:50 FiO2 70 08/11/23 13:00 BMI result Body Mass Index 44.4 Gen: in no acute distress HEENT: sclera anicteric, moist mucus membranes Neck: supple Lungs: clear to auscultation bilaterally Heart: regular rate and rhythm, no murmurs Abd: soft, non-tender, non-distended, morbidly obese; dry dressing Ext: no edema, LUE PICC Skin: warm/well-perfused Neuro: alert and oriented x3, no focal findings Psych: appropriate affect Objective Data Active Medications Bisacodyl (Bisacodyl 10 Mg Supp.Rect) 10 mg [place] DAILY PRN PRN Reason: Constipation Calcium Carbonate (Calcium Carbonate 750 Mg Tab.Chew) 750 mg PO Q6H PRN PRN Reason: Heartburn Last Admin: 08/14/23 22:28 Dose: 750 mg Documented By: RANDY Comments: given for c/o heartburn Dextrose (Dextrose 50 % 25 Gm/50 Ml Syringe) 25 gm IVPUSH Q15M PRN; Protocol PRN Reason: per Hypoglycemia Standing Ord. Enoxaparin Sodium (Enoxaparin Sodium 40 Mg/0.4 Ml Syringe) 40 mg SUBCUT Q24H [facility] Last Admin: 08/28/23 07:48 Dose: 40 mg Documented By: PODMOKENDALL Glucose (Glucose Gel 15 Gm Gel..Gram.) 15 gm PO Q15M PRN; Protocol PRN Reason: per Hypoglycemia Standing Ord. Nutrition (Parenteral) (Parenteral Nutrition) 2,040 mls @ 85 mls/hr IV .Q24H [facility]; Protocol Stop: 08/28/23 20:59 Last Admin: 08/28/23 00:02 Dose: 85 mls/hr Documented By: BC Insulin Human Lispro (Insulin Lispro 100 Unit/Ml 3 Ml Vial) 0 unit SUBCUT Q6H [facility]; Protocol Last Admin: 08/28/23 07:49 Dose: 2 unit Documented By: LYLE Lidocaine (Lidocaine 4 % Patch Adh..Patch) 1 patch TRANSDERMA DAILY [facility]; Protocol Last Admin: 08/28/23 07:49 Dose: 1 patch Documented By: LYLE Morphine Sulfate (Morphine Sulfate 4 Mg/Ml Cartridge) 4 mg IVPUSH Q4H PRN; Protocol PRN Reason: severe pain Last Admin: 08/25/23 16:36 Dose: 4 mg Documented By: MYAH Pharmacy Consult (Consult Rx Parenteral Nutrition Ordering) 1 each MISCELLANE DAILY PRN PRN Reason: Consult order Prochlorperazine Edisylate (Prochlorperazine Edisylate 10 Mg/2 Ml Vial) 10 mg IVPUSH Q4H PRN PRN Reason: Nausea and Vomiting Last Admin: 08/28/23 00:03 Dose: 10 mg Documented By: BC Sodium Chloride (0.9 % Sodium Chloride Flush 3 Ml Syringe) 3 ml IVFLUSH QSHIFT [facility] Last Admin: 08/28/23 00:01 Dose: 3 ml Documented By: BC Sodium Chloride (Sodium Chloride 0.65 % Nasal 44 Ml Sprbtl) 1 spray NOSTRIL-B Q1H PRN PRN Reason: nasal dryness Sodium Chloride (0.9 % Sodium Chloride Flush 10 Ml Syringe) 5 ml IVFLUSH TID [facility] Last Admin: 08/28/23 07:51 Dose: 5 ml Documented By: LYLE Labs 08/26/23 06:47 08/28/23 06:50 Labs: Laboratory Results - last 24 hr 08/27/23 08/27/23 08/28/23 11:27 18:22 00:03 Hold Purple Top Anion Gap Estim Creat Clear Calc Estimated GFR POC Glucose 169 H 157 H 127 H Random Glucose Calcium Albumin Triglycerides 08/28/23 08/28/23 08/28/23 06:10 06:50 09:07 Hold Purple Top SEE NOTE SEE NOTE Anion Gap 14 Estim Creat Clear Calc 212.3 Estimated GFR > 60 POC Glucose 173 H Random Glucose 187 H Calcium 9.6 D Albumin 2.9 L Triglycerides 209 H Assessment and Plan (1) Status post small bowel resection: Status: Acute (2) DVT (deep venous thrombosis): Status: Acute (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 Will start clears and monitor for tolerance - on TPN. PICC placed 08/25/23. daily electrolyte checks for TPN - fever on 08/20/23 resolved, d/c'ed pip-yudy in absence of signs of infection [cultures negative] hypoK - repleted nocturnal hypoxia/mod-sev SHAVON - CPAP at night [once NGT out] per Pulmonology. Upon discharge, will need sleep lab CPAP titration study. ANA - resolved after fluid resuscitation hx DVT/PE - held rivaroxaban; resume when OK with Surgery Guillain-[place] syndrome - stable; on monthly IVIG x5d and due now but would need premedication with prednisone, which would impair wound healing, so deferring for now VTE ppx - LMWH dispo - PT eval In my clinical judgment, the patient requires continued inpatient hospitalization for the following reasons: TPN, advancing diet Total time managing care of this patient today: 35 minutes. Quality Stroke Does the patient have a stroke diagnosis?: No VTE Prior VTE?: No VTE Risk Level:: Medical - moderate - high VTE Device Contraindication: Treatment Not Indicated VTE Drug Contraindication: N/A - Med Ordered
[2023-08-28 10:51] LABS: Magnesium 4.7 mg/dL (1.6-2.6); Phosphorus 14.1 mg/dL (2.7-4.5)
[2023-08-28 11:43] LABS: Glucose, Whole Blood 160 mg/dL (60-115)
[2023-08-28 12:33] LABS: Magnesium 1.9 mg/dL (1.6-2.6); Phosphorus 3.4 mg/dL (2.7-4.5)
--- NOTE | 2023-08-28 13:44 | PM.PNGS ---
Subjective Subjective Date of Service: 08/28/23 Interval history: Patient is doing okay he says that he has not having any abdominal pain he is tolerating liquids well with the NG out and passing gas and some stool. No issues. A little bit of drainage from the midline. Physical Exam Vital Signs: Vital Signs: Last Vital Signs Temp 96.9 F 08/28/23 11:25 Pulse 106 H 08/28/23 11:25 Resp 18 08/28/23 11:25 BP 120/82 08/28/23 11:25 Pulse Ox 97 08/28/23 11:25 O2 Del Method Nasal Cannula 08/28/23 11:25 O2 Flow Rate 2 08/28/23 11:25 FiO2 70 08/11/23 13:00 BMI result Body Mass Index 44.4 Const: General: cooperative, healthy appearing, comfortable and no acute distress GI: Other: Abdomen is soft obese nondistended. Midline area has a little bit of serosanguineous fluid. No evidence of any infection. Psych: Appearance: grossly normal Mental Status: mental status grossly normal Speech and movement: Normal speech and movement present Affect: normal affect Attitude: cooperative Thought process: Normal thought process present Thought content: Normal thought content present Insight: Good insight present (Psych) Judgement: Good judgement present (Psych) Objective Data Active Medications Bisacodyl (Bisacodyl 10 Mg Supp.Rect) 10 mg [place] DAILY PRN PRN Reason: Constipation Calcium Carbonate (Calcium Carbonate 750 Mg Tab.Chew) 750 mg PO Q6H PRN PRN Reason: Heartburn Last Admin: 08/14/23 22:28 Dose: 750 mg Documented By: RANDY Comments: given for c/o heartburn Dextrose (Dextrose 50 % 25 Gm/50 Ml Syringe) 25 gm IVPUSH Q15M PRN; Protocol PRN Reason: per Hypoglycemia Standing Ord. Enoxaparin Sodium (Enoxaparin Sodium 40 Mg/0.4 Ml Syringe) 40 mg SUBCUT Q24H [facility] Last Admin: 08/28/23 07:48 Dose: 40 mg Documented By: PODMORP Glucose (Glucose Gel 15 Gm Gel..Gram.) 15 gm PO Q15M PRN; Protocol PRN Reason: per Hypoglycemia Standing Ord. Nutrition (Parenteral) (Parenteral Nutrition) 2,040 mls @ 85 mls/hr IV .Q24H [facility]; Protocol Stop: 08/28/23 20:59 Last Admin: 08/28/23 00:02 Dose: 85 mls/hr Documented By: BC Nutrition (Parenteral) (Parenteral Nutrition) 2,040 mls @ 85 mls/hr IV .Q24H [facility]; Protocol Stop: 08/29/23 20:59 Insulin Human Lispro (Insulin Lispro 100 Unit/Ml 3 Ml Vial) 0 unit SUBCUT Q6H [facility]; Protocol Last Admin: 08/28/23 07:49 Dose: 2 unit Documented By: LYLE Lidocaine (Lidocaine 4 % Patch Adh..Patch) 1 patch TRANSDERMA DAILY [facility]; Protocol Last Admin: 08/28/23 07:49 Dose: 1 patch Documented By: LYLE Morphine Sulfate (Morphine Sulfate 4 Mg/Ml Cartridge) 4 mg IVPUSH Q4H PRN; Protocol PRN Reason: severe pain Last Admin: 08/25/23 16:36 Dose: 4 mg Documented By: MYAH Pharmacy Consult (Consult Rx Parenteral Nutrition Ordering) 1 each MISCELLANE DAILY PRN PRN Reason: Consult order Prochlorperazine Edisylate (Prochlorperazine Edisylate 10 Mg/2 Ml Vial) 10 mg IVPUSH Q4H PRN PRN Reason: Nausea and Vomiting Last Admin: 08/28/23 00:03 Dose: 10 mg Documented By: BC Sodium Chloride (0.9 % Sodium Chloride Flush 3 Ml Syringe) 3 ml IVFLUSH QSHIFT [facility] Last Admin: 08/28/23 00:01 Dose: 3 ml Documented By: BC Sodium Chloride (Sodium Chloride 0.65 % Nasal 44 Ml Sprbtl) 1 spray NOSTRIL-B Q1H PRN PRN Reason: nasal dryness Sodium Chloride (0.9 % Sodium Chloride Flush 10 Ml Syringe) 5 ml IVFLUSH TID [facility] Last Admin: 08/28/23 07:51 Dose: 5 ml Documented By: LYLE Labs 08/26/23 06:47 08/28/23 06:50 Labs: Laboratory Results - last 24 hr 08/27/23 08/28/23 08/28/23 18:22 00:03 06:10 Hold Purple Top Anion Gap Estim Creat Clear Calc Estimated GFR POC Glucose 157 H 127 H 173 H Random Glucose Calcium Phosphorus Magnesium Albumin Triglycerides 08/28/23 08/28/23 08/28/23 06:50 09:07 11:31 Hold Purple Top SEE NOTE SEE NOTE Anion Gap 14 Estim Creat Clear Calc 212.3 Estimated GFR > 60 POC Glucose Random Glucose 187 H Calcium 9.6 D Phosphorus 14.1 H 3.4 Magnesium 4.7 H* 1.9 Albumin 2.9 L Triglycerides 209 H 08/28/23 11:40 Hold Purple Top Anion Gap Estim Creat Clear Calc Estimated GFR POC Glucose 160 H Random Glucose Calcium Phosphorus Magnesium Albumin Triglycerides Procedures Date of Service Date of Service: 08/28/23 Progress Note: A&P Assessment and plan (1) Status post small bowel resection: Status: Acute Assessment and Plan: Patient is status post exploratory laparotomy with multiple small bowel resections overall improving medical issues as well as GI function. NG tube has been removed and he is tolerating clear liquids will hopefully advance tomorrow. Continue supportive nutrition as needed. Appreciate medical team following along. Time Spent With Patient Time: Total time managing care of this patient today ____ minutes. Quality Stroke Does the patient have a stroke diagnosis?: No VTE Prior VTE?: No VTE Risk Level:: Medical - moderate - high VTE Device Contraindication: Treatment Not Indicated VTE Drug Contraindication: N/A - Med Ordered
[2023-08-28 16:20] LABS: Glucose, Whole Blood 140 mg/dL (60-115)
[2023-08-28 20:48] LABS: Glucose, Whole Blood 162 mg/dL (60-115)
[2023-08-29] VITALS (7 sets, daily range): BP systolic 107–140; BP diastolic 68–94; PULSE 100–115; RESP 18–20; TEMP 36.2–37.1; O2SAT 97–100; BMI 44.4
--- NOTE | 2023-08-29 00:06 | PC.NURSE ---
Assumed care of patient at 19:00. Please see shift assessment, tasks, and MAR for full details. Handoff report given at 23:15.
[2023-08-29] MEDS: 0.9 % Sodium Chloride Flush 3 ML SYRINGE IVFLUSH ×3 (00:55→22:44)
--- NOTE | 2023-08-29 01:32 | PC.RT ---
Pt refused CPAP
[2023-08-29 07:41] LABS: Glucose, Whole Blood 143 mg/dL (60-115)
[2023-08-29] MEDS: Enoxaparin Sodium 40 MG/0.4 ML SYRINGE SUBCUT (08:17)
[2023-08-29] MEDS: Lidocaine 4 % Patch ADH..PATCH 1 PATCH TRANSDERMA (08:18)
[2023-08-29] MEDS: 0.9 % Sodium Chloride Flush 10 ML SYRINGE 5 ML IVFLUSH ×2 (08:22→22:44)
--- NOTE | 2023-08-29 10:43 | P.PNIM_ITS ---
Subjective Subjective Date of Service: 08/29/23 Interval History: tolerating clears, some nausea passing stool + flatus no nausea Review of Systems Review of Systems: Yes all other systems are reviewed and are negative Physical Exam 2 Vital Signs: Vital Signs: Last Vital Signs Temp 97.6 F 08/29/23 07:26 Pulse 100 08/29/23 07:26 Resp 18 08/29/23 07:26 BP 118/74 08/29/23 07:26 Pulse Ox 98 08/29/23 07:26 O2 Del Method Nasal Cannula 08/29/23 07:26 O2 Flow Rate 2 08/29/23 07:26 FiO2 70 08/11/23 13:00 BMI result Body Mass Index 44.4 Gen: in no acute distress HEENT: sclera anicteric, moist mucus membranes Neck: supple Lungs: clear to auscultation bilaterally Heart: regular rate and rhythm, no murmurs Abd: soft, non-tender, non-distended, morbidly obese; dry dressing Ext: no edema, LUE PICC Skin: warm/well-perfused Neuro: alert and oriented x3, no focal findings Psych: appropriate affect Objective Data Active Medications Bisacodyl (Bisacodyl 10 Mg Supp.Rect) 10 mg [place] DAILY PRN PRN Reason: Constipation Calcium Carbonate (Calcium Carbonate 750 Mg Tab.Chew) 750 mg PO Q6H PRN PRN Reason: Heartburn Last Admin: 08/14/23 22:28 Dose: 750 mg Documented By: RANDY Comments: given for c/o heartburn Dextrose (Dextrose 50 % 25 Gm/50 Ml Syringe) 25 gm IVPUSH Q15M PRN; Protocol PRN Reason: per Hypoglycemia Standing Ord. Docusate Sodium (Docusate Sodium 100 Mg Capsule) 100 mg PO BID PRN PRN Reason: Constipation Enoxaparin Sodium (Enoxaparin Sodium 40 Mg/0.4 Ml Syringe) 40 mg SUBCUT Q24H [facility] Last Admin: 08/29/23 08:17 Dose: 40 mg Documented By: SHERRI Glucose (Glucose Gel 15 Gm Gel..Gram.) 15 gm PO Q15M PRN; Protocol PRN Reason: per Hypoglycemia Standing Ord. Nutrition (Parenteral) (Parenteral Nutrition) 2,040 mls @ 85 mls/hr IV .Q24H [facility]; Protocol Stop: 08/29/23 20:59 Last Admin: 08/28/23 21:53 Dose: 85 mls/hr Documented By: BG Insulin Human Lispro (Insulin Lispro 100 Unit/Ml 3 Ml Vial) 0 unit SUBCUT QIDACHS [facility]; Protocol Last Admin: 08/29/23 07:44 Dose: Not Given Documented By: SHERRI Non-Admin Reason: No Insulin Coverage Lidocaine (Lidocaine 4 % Patch Adh..Patch) 1 patch TRANSDERMA DAILY [facility]; Protocol Last Admin: 08/29/23 08:18 Dose: 1 patch Documented By: SHERRI Morphine Sulfate (Morphine Sulfate 4 Mg/Ml Cartridge) 4 mg IVPUSH Q4H PRN; Protocol PRN Reason: severe pain Last Admin: 08/25/23 16:36 Dose: 4 mg Documented By: MYAH Pharmacy Consult (Consult Rx Parenteral Nutrition Ordering) 1 each MISCELLANE DAILY PRN PRN Reason: Consult order Prochlorperazine Edisylate (Prochlorperazine Edisylate 10 Mg/2 Ml Vial) 10 mg IVPUSH Q4H PRN PRN Reason: Nausea and Vomiting Last Admin: 08/28/23 21:52 Dose: 10 mg Documented By: BG Sodium Chloride (0.9 % Sodium Chloride Flush 3 Ml Syringe) 3 ml IVFLUSH QSHIFT [facility] Last Admin: 08/29/23 08:21 Dose: Not Given Documented By: SHERRI Non-Admin Reason: IV Running Sodium Chloride (Sodium Chloride 0.65 % Nasal 44 Ml Sprbtl) 1 spray NOSTRIL-B Q1H PRN PRN Reason: nasal dryness Sodium Chloride (0.9 % Sodium Chloride Flush 10 Ml Syringe) 5 ml IVFLUSH TID [facility] Last Admin: 08/29/23 08:22 Dose: 5 ml Documented By: SHERRI Labs 08/26/23 06:47 08/28/23 06:50 Labs: Laboratory Results - last 24 hr 08/28/23 08/28/23 08/28/23 09:07 11:31 11:40 Hold Purple Top POC Glucose 160 H Phosphorus 14.1 H 3.4 Magnesium 4.7 H* 1.9 08/28/23 08/28/23 08/29/23 16:14 20:45 06:18 Hold Purple Top SEE NOTE POC Glucose 140 H 162 H Phosphorus Magnesium 08/29/23 07:36 Hold Purple Top POC Glucose 143 H Phosphorus Magnesium Assessment and Plan (1) Status post small bowel resection: Status: Acute (2) DVT (deep venous thrombosis): Status: Acute (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 Started clears 08/28/23. Possibly advance to solids 08/30/23 then d/c TPN. - PICC placed 08/25/23. daily electrolyte checks for TPN - fever on 08/20/23 resolved, d/c'ed pip-yudy in absence of signs of infection [cultures negative] hypoK - repleted nocturnal hypoxia/mod-sev SHAVON - CPAP at night [once NGT out] per Pulmonology. Upon discharge, will need sleep lab CPAP titration study. ANA - resolved after fluid resuscitation hx DVT/PE - held rivaroxaban; resume when OK with Surgery Guillain-[place] syndrome - stable; on monthly IVIG x5d and due now but would need premedication with prednisone, which would impair wound healing, so deferring for now VTE ppx - LMWH dispo - PT eval In my clinical judgment, the patient requires continued inpatient hospitalization for the following reasons: TPN, advancing diet Total time managing care of this patient today: 35 minutes. Quality Stroke Does the patient have a stroke diagnosis?: No VTE Prior VTE?: No VTE Risk Level:: Medical - moderate - high VTE Device Contraindication: Treatment Not Indicated VTE Drug Contraindication: N/A - Med Ordered
[2023-08-29 11:25] LABS: Glucose, Whole Blood 179 mg/dL (60-115)
[2023-08-29] MEDS: Insulin Lispro 100 UNIT/ML 3 ML VIAL SUBCUT ×2 (11:31→16:42)
[2023-08-29 12:34] LABS: Anion Gap 17 (12-20); Blood Urea Nitrogen 17 mg/dL (9-16); Calcium 8.6 mg/dL (8.4-10.2); Carbon Dioxide 21 mmol/L (22-29); Chloride 105 mmol/L (96-108); Creatinine Clr Calc Pharmacy 225.8; Estimated Glomerular Filt Rate > 60; Glucose Random 171 mg/dL (60-115); Potassium 3.6 mmol/L (3.3-5.1); Sodium 139 mmol/L (135-145)
[2023-08-29 12:37] LABS: Albumin Level 2.8 g/dL (3.5-5.0); Magnesium 1.9 mg/dL (1.6-2.6); Phosphorus 3.4 mg/dL (2.7-4.5); Triglycerides 196 mg/dL (<150)
--- NOTE | 2023-08-29 14:15 | PM.PNGS ---
Subjective Subjective Date of Service: 08/29/23 Interval history: Patient is doing great tolerating liquid diet and we wanting to advanced his diet to solid food however he is hesitant. With compromise and his brought him in some chicken noodle soup. We will plan on doing that. PT to work with him in bed. His abdomen incision looks good. He denies any nausea vomiting and having bowel movements and passing gas Physical Exam Vital Signs: Vital Signs: Last Vital Signs Temp 97.1 F 08/29/23 11:18 Pulse 100 08/29/23 11:18 Resp 18 08/29/23 11:18 BP 131/81 08/29/23 11:18 Pulse Ox 98 08/29/23 11:18 O2 Del Method Nasal Cannula 08/29/23 11:18 O2 Flow Rate 2 08/29/23 11:18 FiO2 70 08/11/23 13:00 BMI result Body Mass Index 44.4 Const: General: cooperative, healthy appearing, comfortable, no acute distress and well developed GI: Other: Abdomen is obese but soft nontender incision looks good small area midline area that is a little open a little draining some clear material. Active bowel sounds Objective Data Active Medications Bisacodyl (Bisacodyl 10 Mg Supp.Rect) 10 mg [place] DAILY PRN PRN Reason: Constipation Calcium Carbonate (Calcium Carbonate 750 Mg Tab.Chew) 750 mg PO Q6H PRN PRN Reason: Heartburn Last Admin: 08/14/23 22:28 Dose: 750 mg Documented By: RANDY Comments: given for c/o heartburn Dextrose (Dextrose 50 % 25 Gm/50 Ml Syringe) 25 gm IVPUSH Q15M PRN; Protocol PRN Reason: per Hypoglycemia Standing Ord. Docusate Sodium (Docusate Sodium 100 Mg Capsule) 100 mg PO BID PRN PRN Reason: Constipation Enoxaparin Sodium (Enoxaparin Sodium 40 Mg/0.4 Ml Syringe) 40 mg SUBCUT Q24H [facility] Last Admin: 08/29/23 08:17 Dose: 40 mg Documented By: SHERRI Glucose (Glucose Gel 15 Gm Gel..Gram.) 15 gm PO Q15M PRN; Protocol PRN Reason: per Hypoglycemia Standing Ord. Nutrition (Parenteral) (Parenteral Nutrition) 2,040 mls @ 85 mls/hr IV .Q24H [facility]; Protocol Stop: 08/29/23 20:59 Last Admin: 08/28/23 21:53 Dose: 85 mls/hr Documented By: BG Nutrition (Parenteral) (Parenteral Nutrition) 2,040 mls @ 85 mls/hr IV .Q24H [facility]; Protocol Stop: 08/30/23 20:59 Insulin Human Lispro (Insulin Lispro 100 Unit/Ml 3 Ml Vial) 0 unit SUBCUT QIDACHS [facility]; Protocol Last Admin: 08/29/23 11:31 Dose: 2 unit Documented By: SHERRI Lidocaine (Lidocaine 4 % Patch Adh..Patch) 1 patch TRANSDERMA DAILY [facility]; Protocol Last Admin: 08/29/23 08:18 Dose: 1 patch Documented By: SHERRI Morphine Sulfate (Morphine Sulfate 4 Mg/Ml Cartridge) 4 mg IVPUSH Q4H PRN; Protocol PRN Reason: severe pain Last Admin: 08/25/23 16:36 Dose: 4 mg Documented By: MYAH Pharmacy Consult (Consult Rx Parenteral Nutrition Ordering) 1 each MISCELLANE DAILY PRN PRN Reason: Consult order Prochlorperazine Edisylate (Prochlorperazine Edisylate 10 Mg/2 Ml Vial) 10 mg IVPUSH Q4H PRN PRN Reason: Nausea and Vomiting Last Admin: 08/28/23 21:52 Dose: 10 mg Documented By: BG Sodium Chloride (0.9 % Sodium Chloride Flush 3 Ml Syringe) 3 ml IVFLUSH QSHIFT [facility] Last Admin: 08/29/23 08:21 Dose: Not Given Documented By: SHERRI Non-Admin Reason: IV Running Sodium Chloride (Sodium Chloride 0.65 % Nasal 44 Ml Sprbtl) 1 spray NOSTRIL-B Q1H PRN PRN Reason: nasal dryness Sodium Chloride (0.9 % Sodium Chloride Flush 10 Ml Syringe) 5 ml IVFLUSH TID [facility] Last Admin: 08/29/23 08:22 Dose: 5 ml Documented By: SHERRI Labs 08/26/23 06:47 08/29/23 06:18 Labs: Laboratory Results - last 24 hr 08/28/23 08/28/23 08/29/23 16:14 20:45 06:18 Hold Purple Top SEE NOTE Anion Gap 17 Estim Creat Clear Calc 225.8 Estimated GFR > 60 POC Glucose 140 H 162 H Random Glucose 171 H Calcium 8.6 D Phosphorus 3.4 Magnesium 1.9 Albumin 2.8 L Triglycerides 196 H 08/29/23 08/29/23 07:36 11:22 Hold Purple Top Anion Gap Estim Creat Clear Calc Estimated GFR POC Glucose 143 H 179 H Random Glucose Calcium Phosphorus Magnesium Albumin Triglycerides Procedures Date of Service Date of Service: 08/29/23 Progress Note: A&P Assessment and plan (1) Status post small bowel resection: Status: Acute Assessment and Plan: Patient is a 53-year-old male status post exploratory laparotomy with significant amount of small bowel resected due to multiple areas of ischemia necrosis. Question etiology for this. Overall now doing better returning bowel function and labs looking good. Patient continues to get parenteral nutrition to support him a goal and encouraging p.o. intake and see how he tolerates all of this. We will continue with the soup and then eventually increased to some solid foods as he feels confidence. medical team following (2) Ischemic bowel disease: Status: Acute Time Spent With Patient Time: Total time managing care of this patient today ____ minutes. Quality Stroke Does the patient have a stroke diagnosis?: No VTE Prior VTE?: No VTE Risk Level:: Medical - moderate - high VTE Device Contraindication: Treatment Not Indicated VTE Drug Contraindication: N/A - Med Ordered
[2023-08-29 16:17] LABS: Glucose, Whole Blood 163 mg/dL (60-115)
[2023-08-29] MEDS: Prochlorperazine Edisylate 10 MG/2 ML VIAL IVPUSH (18:07)
[2023-08-29 20:39] LABS: Glucose, Whole Blood 123 mg/dL (60-115)
[2023-08-29 20:39] LABS: Glucose, Whole Blood 147 mg/dL (60-115)
[2023-08-29] MEDS: Parenteral Nutrition 2,040 ML 85 ML IV (22:37)
[2023-08-30] VITALS (7 sets, daily range): BP systolic 108–127; BP diastolic 69–79; PULSE 97–115; RESP 18–20; TEMP 36.3–37; O2SAT 97–99
[2023-08-30 07:29] LABS: Albumin Level 2.9 g/dL (3.5-5.0); Anion Gap 10 (12-20); Blood Urea Nitrogen 15 mg/dL (9-16); Calcium 8.7 mg/dL (8.4-10.2); Carbon Dioxide 23 mmol/L (22-29); Chloride 111 mmol/L (96-108); Creatinine Clr Calc Pharmacy 229.4; Estimated Glomerular Filt Rate > 60; Glucose Random 121 mg/dL (60-115); Magnesium 1.8 mg/dL (1.6-2.6); Phosphorus 3.1 mg/dL (2.7-4.5); Potassium 3.4 mmol/L (3.3-5.1); Sodium 141 mmol/L (135-145); Triglycerides 133 mg/dL (<150)
--- NOTE | 2023-08-30 08:00 | P.PNGS_ITS ---
Subjective Subjective Date of Service: 08/30/23 Interval history: says he feels well NGT pulled out 2 days ago passing flatus has BMs denies pain denies nausea on clears Physical Exam 2 Vital Signs: Vital Signs: Last Vital Signs Temp 98.0 F 08/30/23 07:31 Pulse 98 08/30/23 07:31 Resp 20 08/30/23 07:31 BP 127/79 08/30/23 07:31 Pulse Ox 98 08/30/23 07:31 O2 Del Method Nasal Cannula 08/30/23 07:31 O2 Flow Rate 2 08/30/23 07:31 FiO2 70 08/11/23 13:00 BMI result Body Mass Index 44.4 Const: General: comfortable and no acute distress Resp: Effort & Inspection: normal respiratory effort GI: Palpation (GI): Soft to palpation, not firm, nontender and no guarding Objective Data Active Medications Bisacodyl (Bisacodyl 10 Mg Supp.Rect) 10 mg [place] DAILY PRN PRN Reason: Constipation Calcium Carbonate (Calcium Carbonate 750 Mg Tab.Chew) 750 mg PO Q6H PRN PRN Reason: Heartburn Last Admin: 08/14/23 22:28 Dose: 750 mg Documented By: RANDY Comments: given for c/o heartburn Dextrose (Dextrose 50 % 25 Gm/50 Ml Syringe) 25 gm IVPUSH Q15M PRN; Protocol PRN Reason: per Hypoglycemia Standing Ord. Docusate Sodium (Docusate Sodium 100 Mg Capsule) 100 mg PO BID PRN PRN Reason: Constipation Enoxaparin Sodium (Enoxaparin Sodium 40 Mg/0.4 Ml Syringe) 40 mg SUBCUT Q24H [facility] Last Admin: 08/29/23 08:17 Dose: 40 mg Documented By: SHERRI Glucose (Glucose Gel 15 Gm Gel..Gram.) 15 gm PO Q15M PRN; Protocol PRN Reason: per Hypoglycemia Standing Ord. Nutrition (Parenteral) (Parenteral Nutrition) 2,040 mls @ 85 mls/hr IV .Q24H [facility]; Protocol Stop: 08/30/23 20:59 Last Admin: 08/29/23 22:37 Dose: 85 mls/hr Documented By: RUTH Insulin Human Lispro (Insulin Lispro 100 Unit/Ml 3 Ml Vial) 0 unit SUBCUT QIDACHS [facility]; Protocol Last Admin: 08/29/23 21:20 Dose: Not Given Documented By: RUTH Non-Admin Reason: No Insulin Coverage Lidocaine (Lidocaine 4 % Patch Adh..Patch) 1 patch TRANSDERMA DAILY [facility]; Protocol Last Admin: 08/29/23 08:18 Dose: 1 patch Documented By: SHERRI Pharmacy Consult (Consult Rx Parenteral Nutrition Ordering) 1 each MISCELLANE DAILY PRN PRN Reason: Consult order Prochlorperazine Edisylate (Prochlorperazine Edisylate 10 Mg/2 Ml Vial) 10 mg IVPUSH Q4H PRN PRN Reason: Nausea and Vomiting Last Admin: 08/29/23 18:07 Dose: 10 mg Documented By: SHERRI Sodium Chloride (0.9 % Sodium Chloride Flush 3 Ml Syringe) 3 ml IVFLUSH QSHIFT [facility] Last Admin: 08/29/23 22:44 Dose: 3 ml Documented By: RUTH Sodium Chloride (Sodium Chloride 0.65 % Nasal 44 Ml Sprbtl) 1 spray NOSTRIL-B Q1H PRN PRN Reason: nasal dryness Sodium Chloride (0.9 % Sodium Chloride Flush 10 Ml Syringe) 5 ml IVFLUSH TID [facility] Last Admin: 08/29/23 22:44 Dose: 5 ml Documented By: RUTH Labs 08/26/23 06:47 08/30/23 06:48 Labs: Laboratory Results - last 24 hr 08/29/23 08/29/23 08/29/23 06:18 11:22 16:14 Hold Purple Top Anion Gap 17 Estim Creat Clear Calc 225.8 Estimated GFR > 60 POC Glucose 179 H 163 H Random Glucose 171 H Calcium 8.6 D Phosphorus 3.4 Magnesium 1.9 Albumin 2.8 L Triglycerides 196 H 08/29/23 08/29/23 08/30/23 19:59 20:34 06:48 Hold Purple Top SEE NOTE Anion Gap 10 L Estim Creat Clear Calc 229.4 Estimated GFR > 60 POC Glucose 123 H 147 H Random Glucose 121 H Calcium 8.7 Phosphorus 3.1 Magnesium 1.8 Albumin 2.9 L Triglycerides 133 Procedures Date of Service Date of Service: 08/30/23 Progress Note: A&P Assessment and plan (1) Status post small bowel resection: Status: Acute Assessment and Plan: seems to be tolerating clears he does not feel ready to advance diet continue TPN he says he might try to take regular food tomorrow stable otherwise Time Spent With Patient Time: Total time managing care of this patient today ____ minutes. Quality Stroke Does the patient have a stroke diagnosis?: No VTE Prior VTE?: No VTE Risk Level:: Medical - moderate - high VTE Device Contraindication: Treatment Not Indicated VTE Drug Contraindication: N/A - Med Ordered
[2023-08-30 08:02] LABS: Glucose, Whole Blood 126 mg/dL (60-115)
[2023-08-30] MEDS: Lidocaine 4 % Patch ADH..PATCH 1 PATCH TRANSDERMA (10:27)
[2023-08-30] MEDS: 0.9 % Sodium Chloride Flush 3 ML SYRINGE IVFLUSH ×2 (10:28→18:25)
[2023-08-30] MEDS: Enoxaparin Sodium 40 MG/0.4 ML SYRINGE SUBCUT (10:28)
--- NOTE | 2023-08-30 10:34 | MHC.CLN ---
F/U PT ADVANCED TO CLEARS NGT PULLED REVIEWED LABS-TRIGS WNL DISCUSSED WITH PHARMACY CONTINUE TPN AT MAX GOAL RATE 85ML/HR WITH 86G LIPIDS PROVIDES 2308 TOTAL KCALS (30KCALS/KG BASED ON CMW) , 102G PROTEIN (1.3G/KG), 306G DEXTROSE REPLETE LYTES NEEDED TPN WILL PROMOTE WOUND HEALING (STAGE 2 R BUTTOCKS)
[2023-08-30 11:57] LABS: Glucose, Whole Blood 169 mg/dL (60-115)
--- NOTE | 2023-08-30 12:38 | MHC.CM.PN ---
Per MD rounds no dc today. Patient started on clears. Plan to advance diet tomorrow. DP home with new [facility] via BLS.
[2023-08-30 16:34] LABS: Glucose, Whole Blood 114 mg/dL (60-115)
--- NOTE | 2023-08-30 17:04 | P.PNIM_ITS ---
Subjective Subjective Date of Service: 08/30/23 Interval History: No acute issues overnight. Tolerating slow advancement of diet Review of Systems Denies chest pain Denies shortness of breath Denies nausea vomiting diarrhea Denies fever chills Physical Exam 2 Vital Signs: Vital Signs: Last Vital Signs Temp 97.4 F 08/30/23 16:00 Pulse 97 08/30/23 16:00 Resp 19 08/30/23 16:00 BP 119/75 08/30/23 16:00 Pulse Ox 99 08/30/23 16:00 O2 Del Method Nasal Cannula 08/30/23 16:00 O2 Flow Rate 2 08/30/23 16:00 FiO2 70 08/11/23 13:00 BMI result Body Mass Index 44.4 Const: Other: Awake alert no acute distress Resp: Other: Clear to auscultation bilaterally no rales rhonchi or wheezes Cardio: Other: No S4; positive S1-S2; no S3 murmurs rubs or gallops GI: Other: Soft nontender nondistended normoactive bowel sounds Extrem: Other: No edema bilaterally Objective Data Active Medications Bisacodyl (Bisacodyl 10 Mg Supp.Rect) 10 mg IN DAILY PRN PRN Reason: Constipation Calcium Carbonate (Calcium Carbonate 750 Mg Tab.Chew) 750 mg PO Q6H PRN PRN Reason: Heartburn Last Admin: 08/14/23 22:28 Dose: 750 mg Documented By: RANDY Comments: given for c/o heartburn Dextrose (Dextrose 50 % 25 Gm/50 Ml Syringe) 25 gm IVPUSH Q15M PRN; Protocol PRN Reason: per Hypoglycemia Standing Ord. Docusate Sodium (Docusate Sodium 100 Mg Capsule) 100 mg PO BID PRN PRN Reason: Constipation Enoxaparin Sodium (Enoxaparin Sodium 40 Mg/0.4 Ml Syringe) 40 mg SUBCUT Q24H [facility] Last Admin: 08/30/23 10:28 Dose: 40 mg Documented By: CORNEL Glucose (Glucose Gel 15 Gm Gel..Gram.) 15 gm PO Q15M PRN; Protocol PRN Reason: per Hypoglycemia Standing Ord. Nutrition (Parenteral) (Parenteral Nutrition) 2,040 mls @ 85 mls/hr IV .Q24H [facility]; Protocol Stop: 08/30/23 20:59 Last Admin: 08/29/23 22:37 Dose: 85 mls/hr Documented By: RUTH Nutrition (Parenteral) (Parenteral Nutrition) 2,040 mls @ 85 mls/hr IV .Q24H [facility]; Protocol Stop: 08/31/23 20:59 Insulin Human Lispro (Insulin Lispro 100 Unit/Ml 3 Ml Vial) 0 unit SUBCUT QIDACHS [facility]; Protocol Last Admin: 08/30/23 12:00 Dose: Not Given Documented By: CORNEL Non-Admin Reason: No Insulin Coverage Lidocaine (Lidocaine 4 % Patch Adh..Patch) 1 patch TRANSDERMA DAILY [facility]; Protocol Last Admin: 08/30/23 10:27 Dose: 1 patch Documented By: CORNEL Pharmacy Consult (Consult Rx Parenteral Nutrition Ordering) 1 each MISCELLANE DAILY PRN PRN Reason: Consult order Prochlorperazine Edisylate (Prochlorperazine Edisylate 10 Mg/2 Ml Vial) 10 mg IVPUSH Q4H PRN PRN Reason: Nausea and Vomiting Last Admin: 08/29/23 18:07 Dose: 10 mg Documented By: SHERRI Sodium Chloride (0.9 % Sodium Chloride Flush 3 Ml Syringe) 3 ml IVFLUSH QSHIFT [facility] Last Admin: 08/30/23 10:28 Dose: 3 ml Documented By: CORNEL Sodium Chloride (Sodium Chloride 0.65 % Nasal 44 Ml Sprbtl) 1 spray NOSTRIL-B Q1H PRN PRN Reason: nasal dryness Sodium Chloride (0.9 % Sodium Chloride Flush 10 Ml Syringe) 5 ml IVFLUSH TID [facility] Last Admin: 08/30/23 10:28 Dose: Not Given Documented By: CORNEL Non-Admin Reason: Duplicate Order Labs 08/26/23 06:47 08/30/23 06:48 Labs: Laboratory Results - last 24 hr 08/29/23 08/29/23 08/30/23 19:59 20:34 06:48 Hold Purple Top SEE NOTE Anion Gap 10 L Estim Creat Clear Calc 229.4 Estimated GFR > 60 POC Glucose 123 H 147 H Random Glucose 121 H Calcium 8.7 Phosphorus 3.1 Magnesium 1.8 Albumin 2.9 L Triglycerides 133 08/30/23 08/30/23 08/30/23 07:33 11:15 16:28 Hold Purple Top Anion Gap Estim Creat Clear Calc Estimated GFR POC Glucose 126 H 169 H 114 Random Glucose Calcium Phosphorus Magnesium Albumin Triglycerides Assessment and Plan (1) Status post small bowel resection: Status: Acute (2) DVT (deep venous thrombosis): Status: Acute Plan 53M PMH significant for 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 1.Small-bowel obstruction complicated by ischemic bowel and perforation -s/p surgery 08/09/23 -receiving IV TPN via PICC line -advance diet as tolerated 2.Nocturnal hypoxia -overnight pulse ox showed severe hypoxia, patient diagnosed to have moderately severe obstructive sleep apnea, Dr. Monroy recommend CPAP he will need to have CPAP titration study in the sleep lab to determine the optimal pressure and to ensure that hypoxemia is corrected. 3,ANA -resolved -follow renals/divalents 4.Hx of DVT and PE -DVT and PE occurred in 12/2021 -Xarelto on hold; will discuss with surgery in a.m. 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
[2023-08-30] MEDS: Prochlorperazine Edisylate 10 MG/2 ML VIAL IVPUSH (20:39)
[2023-08-30 21:33] LABS: Glucose, Whole Blood 202 mg/dL (60-115)
[2023-08-30] MEDS: Parenteral Nutrition 2,040 ML 85 ML IV (22:57)
[2023-08-30] MEDS: Insulin Lispro 100 UNIT/ML 3 ML VIAL SUBCUT (23:02)
--- NOTE | 2023-08-31 02:04 | PC.RT ---
Pt refusing CPAP; pt will call if needed
[2023-08-31 03:38] VITALS: BP 110/83; PULSE 114; RESP 20; TEMP 36.5; O2SAT 99
[2023-08-31 06:00] VITALS: BMI 44.9
[2023-08-31 07:22] LABS: Glucose, Whole Blood 184 mg/dL (60-115)
[2023-08-31 07:40] LABS: Albumin Level 3.1 g/dL (3.5-5.0); Anion Gap 15 (12-20); Blood Urea Nitrogen 15 mg/dL (9-16); Calcium 9.3 mg/dL (8.4-10.2); Carbon Dioxide 21 mmol/L (22-29); Chloride 110 mmol/L (96-108); Creatinine Clr Calc Pharmacy 216.9; Estimated Glomerular Filt Rate > 60; Glucose Random 217 mg/dL (60-115); Magnesium 1.8 mg/dL (1.6-2.6); Phosphorus 3.1 mg/dL (2.7-4.5); Potassium 3.5 mmol/L (3.3-5.1); Sodium 142 mmol/L (135-145); Triglycerides 184 mg/dL (<150)
[2023-08-31 07:59] VITALS: BP 120/74; PULSE 108; RESP 20; TEMP 36.4; O2SAT 97
[2023-08-31] MEDS: Lidocaine 4 % Patch ADH..PATCH 1 PATCH TRANSDERMA (08:08)
[2023-08-31] MEDS: Insulin Lispro 100 UNIT/ML 3 ML VIAL SUBCUT ×3 (08:08→16:58)
[2023-08-31] MEDS: Enoxaparin Sodium 40 MG/0.4 ML SYRINGE SUBCUT (08:09)
[2023-08-31] MEDS: 0.9 % Sodium Chloride Flush 3 ML SYRINGE IVFLUSH ×2 (08:19→15:30)
[2023-08-31] MEDS: Prochlorperazine Edisylate 10 MG/2 ML VIAL IVPUSH ×3 (08:19→21:17)
--- NOTE | 2023-08-31 09:13 | PM.PNGS ---
Subjective Subjective Date of Service: 09/01/23 Interval history: Says he vomited twice early this morning States that he had been taking a lot of soups with chicken from home Continues to pass flatus and BMs Denies abdominal pain Physical Exam Vital Signs: Vital Signs: Last Vital Signs Temp 97.6 F 08/31/23 07:59 Pulse 108 H 08/31/23 07:59 Resp 20 08/31/23 07:59 BP 120/74 08/31/23 07:59 Pulse Ox 97 08/31/23 07:59 O2 Del Method Nasal Cannula 08/31/23 07:59 O2 Flow Rate 2 08/31/23 07:59 FiO2 70 08/11/23 13:00 BMI result Body Mass Index 44.9 Const: General: comfortable and no acute distress Resp: Effort & Inspection: normal respiratory effort Cardio: Rhythm: regular rhythm GI: Palpation (GI): Soft to palpation, not firm and no guarding Objective Data Active Medications Bisacodyl (Bisacodyl 10 Mg Supp.Rect) 10 mg [place] DAILY PRN PRN Reason: Constipation Calcium Carbonate (Calcium Carbonate 750 Mg Tab.Chew) 750 mg PO Q6H PRN PRN Reason: Heartburn Last Admin: 08/14/23 22:28 Dose: 750 mg Documented By: RANDY Comments: given for c/o heartburn Dextrose (Dextrose 50 % 25 Gm/50 Ml Syringe) 25 gm IVPUSH Q15M PRN; Protocol PRN Reason: per Hypoglycemia Standing Ord. Docusate Sodium (Docusate Sodium 100 Mg Capsule) 100 mg PO BID PRN PRN Reason: Constipation Enoxaparin Sodium (Enoxaparin Sodium 40 Mg/0.4 Ml Syringe) 40 mg SUBCUT Q24H [facility] Last Admin: 08/31/23 08:09 Dose: 40 mg Documented By: ALEKSANDAR Glucose (Glucose Gel 15 Gm Gel..Gram.) 15 gm PO Q15M PRN; Protocol PRN Reason: per Hypoglycemia Standing Ord. Nutrition (Parenteral) (Parenteral Nutrition) 2,040 mls @ 85 mls/hr IV .Q24H [facility]; Protocol Stop: 08/31/23 20:59 Last Admin: 08/30/23 22:57 Dose: 85 mls/hr Documented By: RUTH Insulin Human Lispro (Insulin Lispro 100 Unit/Ml 3 Ml Vial) 0 unit SUBCUT QIDACHS [facility]; Protocol Last Admin: 08/31/23 08:08 Dose: 2 unit Documented By: ALEKSANDAR Lidocaine (Lidocaine 4 % Patch Adh..Patch) 1 patch TRANSDERMA DAILY [facility]; Protocol Last Admin: 08/31/23 08:08 Dose: 1 patch Documented By: ALEKSANDAR Pharmacy Consult (Consult Rx Parenteral Nutrition Ordering) 1 each MISCELLANE DAILY PRN PRN Reason: Consult order Prochlorperazine Edisylate (Prochlorperazine Edisylate 10 Mg/2 Ml Vial) 10 mg IVPUSH Q4H PRN PRN Reason: Nausea and Vomiting Last Admin: 08/31/23 08:19 Dose: 10 mg Documented By: ALEKSANDAR Sodium Chloride (0.9 % Sodium Chloride Flush 3 Ml Syringe) 3 ml IVFLUSH QSHIFT [facility] Last Admin: 08/31/23 08:19 Dose: 3 ml Documented By: ALEKSANDAR Sodium Chloride (Sodium Chloride 0.65 % Nasal 44 Ml Sprbtl) 1 spray NOSTRIL-B Q1H PRN PRN Reason: nasal dryness Sodium Chloride (0.9 % Sodium Chloride Flush 10 Ml Syringe) 5 ml IVFLUSH TID [facility] Last Admin: 08/31/23 07:24 Dose: Not Given Documented By: ALEKSANDAR Non-Admin Reason: Duplicate Order Labs 08/26/23 06:47 09/01/23 06:11 Labs: Laboratory Results - last 24 hr 08/30/23 08/30/23 08/30/23 11:15 16:28 20:33 Hold Purple Top Anion Gap Estim Creat Clear Calc Estimated GFR POC Glucose 169 H 114 202 H Random Glucose Calcium Phosphorus Magnesium Albumin Triglycerides 08/31/23 08/31/23 08/31/23 05:51 07:09 07:15 Hold Purple Top SEE NOTE SEE NOTE Anion Gap Cancelled 15 Estim Creat Clear Calc Cancelled 216.9 Estimated GFR Cancelled > 60 POC Glucose 184 H Random Glucose Cancelled 217 H Calcium Cancelled 9.3 D Phosphorus Cancelled 3.1 Magnesium Cancelled 1.8 Albumin Cancelled 3.1 L Triglycerides Cancelled 184 H Procedures Date of Service Date of Service: 09/01/23 Progress Note: A&P Assessment and plan (1) Status post small bowel resection: Status: Acute Assessment and Plan: Had vomiting this morning Will put back on clear liquids only - he states he had been taking some chicken Otherwise looks well and comfortable Continues to pass flatus and BMs Difficult to do small bowel series in view of his habitus so will wait a little longer with clear liquids Exam continues to be benign Time Spent With Patient Time: Total time managing care of this patient today ____ minutes. Quality Stroke Does the patient have a stroke diagnosis?: No VTE Prior VTE?: No VTE Risk Level:: Medical - moderate - high VTE Device Contraindication: Treatment Not Indicated VTE Drug Contraindication: N/A - Med Ordered
--- NOTE | 2023-08-31 10:44 | MHC.CLN ---
F/U VOMITED X2 -BACK ON CLEAR LIQUIDS REVIEWED LABS-TRIGS SLIGHTLY ELEVATED DISCUSSED WITH PHARMACY CONTINUE TPN AT MAX GOAL RATE 85ML/HR WITH 86G LIPIDS PROVIDES 2308 TOTAL KCALS (30KCALS/KG BASED ON CMW) , 102G PROTEIN (1.3G/KG), 306G DEXTROSE REPLETE LYTES NEEDED TPN WILL PROMOTE WOUND HEALING (STAGE 2 R BUTTOCKS) WILL ADD ENSURE CLEAR WITH MEAL TRAYS TO INCREASE KCALS SUPPLEMENT TO PROVIDE 720KCALS, 24G PROTEIN WITH 100% ACCEPTANCE
[2023-08-31 11:09] VITALS: BP 121/74; PULSE 113; RESP 19; TEMP 36.7; O2SAT 99
[2023-08-31 11:18] LABS: Glucose, Whole Blood 195 mg/dL (60-115)
--- NOTE | 2023-08-31 15:44 | PM.EVENT ---
Event Note Date of Service: 09/01/23 Event Note: Vomited again this afternoon, large amounts Otherwise denies any pain Continues to pass flatus and liquid stools Abdomen soft Looks well overall Will placed on NPO with ice chips again He is refusing NG tube Possibly has stricturing from recent ischemic small bowel disease Stable overall I explained to him that if he continues to have vomiting, will need to place NG tube back Time Spent With Patient Time: Total time managing care of this patient today ____ minutes.
[2023-08-31 16:00] VITALS: BP 119/74; PULSE 120; RESP 20; TEMP 36.7; O2SAT 97
[2023-08-31 16:20] LABS: Glucose, Whole Blood 190 mg/dL (60-115)
--- NOTE | 2023-08-31 16:40 | HO.PM.IMPN ---
Subjective Subjective Date of Service: 08/31/23 Interval History: Two episodes of vomiting today. Seen by surgery made NPO Review of Systems Denies chest pain Denies shortness of breath Denies diarrhea Denies fever chills Admits nausea vomiting Physical Exam Vital Signs: Vital Signs: Last Vital Signs Temp 98.0 F 08/31/23 16:00 Pulse 120 H 08/31/23 16:00 Resp 20 08/31/23 16:00 BP 119/74 08/31/23 16:00 Pulse Ox 97 08/31/23 16:00 O2 Del Method Nasal Cannula 08/31/23 16:00 O2 Flow Rate 2 08/31/23 16:00 FiO2 70 08/11/23 13:00 BMI result Body Mass Index 44.9 Const: Other: Awake alert no acute distress HEENT: Other: NG tube clamped Resp: Other: Clear to auscultation bilaterally no rales rhonchi or wheezes Cardio: Other: No S4; positive S1-S2; no S3 murmurs rubs or gallops GI: Other: Soft nontender nondistended normoactive bowel sounds Extrem: Other: No edema bilaterally Objective Data Active Medications Bisacodyl (Bisacodyl 10 Mg Supp.Rect) 10 mg [place] DAILY PRN PRN Reason: Constipation Calcium Carbonate (Calcium Carbonate 750 Mg Tab.Chew) 750 mg PO Q6H PRN PRN Reason: Heartburn Last Admin: 08/14/23 22:28 Dose: 750 mg Documented By: RANDY Comments: given for c/o heartburn Dextrose (Dextrose 50 % 25 Gm/50 Ml Syringe) 25 gm IVPUSH Q15M PRN; Protocol PRN Reason: per Hypoglycemia Standing Ord. Docusate Sodium (Docusate Sodium 100 Mg Capsule) 100 mg PO BID PRN PRN Reason: Constipation Enoxaparin Sodium (Enoxaparin Sodium 40 Mg/0.4 Ml Syringe) 40 mg SUBCUT Q24H [facility] Last Admin: 08/31/23 08:09 Dose: 40 mg Documented By: ALEKSANDAR Glucose (Glucose Gel 15 Gm Gel..Gram.) 15 gm PO Q15M PRN; Protocol PRN Reason: per Hypoglycemia Standing Ord. Nutrition (Parenteral) (Parenteral Nutrition) 2,040 mls @ 85 mls/hr IV .Q24H [facility]; Protocol Stop: 08/31/23 20:59 Last Admin: 08/30/23 22:57 Dose: 85 mls/hr Documented By: RUTH Nutrition (Parenteral) (Parenteral Nutrition) 2,040 mls @ 85 mls/hr IV .Q24H [facility]; Protocol Stop: 09/01/23 20:59 Insulin Human Lispro (Insulin Lispro 100 Unit/Ml 3 Ml Vial) 0 unit SUBCUT QIDACHS [facility]; Protocol Last Admin: 08/31/23 11:44 Dose: 2 unit Documented By: ALEKSANDAR Lidocaine (Lidocaine 4 % Patch Adh..Patch) 1 patch TRANSDERMA DAILY [facility]; Protocol Last Admin: 08/31/23 08:08 Dose: 1 patch Documented By: ALEKSANDAR Pharmacy Consult (Consult Rx Parenteral Nutrition Ordering) 1 each MISCELLANE DAILY PRN PRN Reason: Consult order Prochlorperazine Edisylate (Prochlorperazine Edisylate 10 Mg/2 Ml Vial) 10 mg IVPUSH Q4H PRN PRN Reason: Nausea and Vomiting Last Admin: 08/31/23 15:29 Dose: 10 mg Documented By: ALEKSANDAR Sodium Chloride (0.9 % Sodium Chloride Flush 3 Ml Syringe) 3 ml IVFLUSH QSHIFT [facility] Last Admin: 08/31/23 15:30 Dose: 3 ml Documented By: ALEKSANDAR Sodium Chloride (Sodium Chloride 0.65 % Nasal 44 Ml Sprbtl) 1 spray NOSTRIL-B Q1H PRN PRN Reason: nasal dryness Sodium Chloride (0.9 % Sodium Chloride Flush 10 Ml Syringe) 5 ml IVFLUSH TID [facility] Last Admin: 08/31/23 15:24 Dose: Not Given Documented By: ALEKSANDAR Non-Admin Reason: IV Running Labs 08/26/23 06:47 08/31/23 07:09 Labs: Laboratory Results - last 24 hr 08/30/23 08/31/23 08/31/23 20:33 05:51 07:09 Hold Purple Top SEE NOTE SEE NOTE Anion Gap Cancelled 15 Estim Creat Clear Calc Cancelled 216.9 Estimated GFR Cancelled > 60 POC Glucose 202 H Random Glucose Cancelled 217 H Calcium Cancelled 9.3 D Phosphorus Cancelled 3.1 Magnesium Cancelled 1.8 Albumin Cancelled 3.1 L Triglycerides Cancelled 184 H 08/31/23 08/31/23 08/31/23 07:15 11:09 16:06 Hold Purple Top Anion Gap Estim Creat Clear Calc Estimated GFR POC Glucose 184 H 195 H 190 H Random Glucose Calcium Phosphorus Magnesium Albumin Triglycerides Assessment and Plan (1) Status post small bowel resection: Status: Acute (2) Ischemic bowel disease: Status: Acute Plan 53M PMH significant for 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 1.Small-bowel obstruction complicated by ischemic bowel and perforation -s/p surgery 08/09/23 -receiving IV TPN via PICC line -NPO with ice chips given recent vomiting -if persistent will need NG tube decompression 2.Nocturnal hypoxia -overnight pulse ox showed severe hypoxia, patient diagnosed to have moderately severe obstructive sleep apnea, Dr. Monroy recommend CPAP he will need to have CPAP titration study in the sleep lab to determine the optimal pressure and to ensure that hypoxemia is corrected. 3,ANA -resolved -follow renals/divalents 4.Hx of DVT and PE -DVT and PE occurred in 12/2021 -Xarelto on hold; will discuss with surgery in a.m. 5.Guillain-[place] syndrome -stable and well compensated -monthly IVIG Full Code lovenox Requires ongoing hospitalization for IV parenteral nutrition given slow advancement of diet Quality Stroke Does the patient have a stroke diagnosis?: No VTE Prior VTE?: No VTE Risk Level:: Medical - moderate - high VTE Device Contraindication: Treatment Not Indicated VTE Drug Contraindication: N/A - Med Ordered
[2023-08-31 20:00] VITALS: BP 131/88; PULSE 120; RESP 20; TEMP 37.3; O2SAT 99
[2023-08-31 20:54] LABS: Glucose, Whole Blood 162 mg/dL (60-115)
[2023-08-31] MEDS: Parenteral Nutrition 2,040 ML 85 ML IV (21:17)
[2023-08-31 23:51] VITALS: BP 138/80; PULSE 120; RESP 20; TEMP 37.3; O2SAT 98
[2023-09-01] VITALS (8 sets, daily range): BP systolic 105–132; BP diastolic 70–90; PULSE 65–113; RESP 18–20; TEMP 36.1–36.8; O2SAT 96–99; BMI 41.6
[2023-09-01 06:48] LABS: Anion Gap 12 (12-20); Blood Urea Nitrogen 22 mg/dL (9-16); Calcium 8.9 mg/dL (8.4-10.2); Carbon Dioxide 23 mmol/L (22-29); Chloride 111 mmol/L (96-108); Creatinine Clr Calc Pharmacy 193.4; Estimated Glomerular Filt Rate > 60; Glucose Random 198 mg/dL (60-115); Magnesium 1.9 mg/dL (1.6-2.6); Phosphorus 3.7 mg/dL (2.7-4.5); Potassium 3.4 mmol/L (3.3-5.1); Sodium 143 mmol/L (135-145); Triglycerides 166 mg/dL (<150)
[2023-09-01 07:19] LABS: Glucose, Whole Blood 144 mg/dL (60-115)
--- NOTE | 2023-09-01 08:13 | PM.PNGS ---
Subjective Subjective Date of Service: 09/02/23 Interval history: Has had no further vomiting Passing flatus Has BMs Denies abdominal pain Physical Exam Vital Signs: Vital Signs: Last Vital Signs Temp 96.9 F 09/01/23 07:01 Pulse 109 H 09/01/23 07:01 Resp 18 09/01/23 07:01 BP 105/70 09/01/23 07:01 Pulse Ox 97 09/01/23 07:01 O2 Del Method Nasal Cannula 09/01/23 07:01 O2 Flow Rate 2 09/01/23 07:01 FiO2 70 08/11/23 13:00 BMI result Body Mass Index 41.6 Const: General: comfortable and no acute distress Resp: Effort & Inspection: normal respiratory effort Cardio: Rhythm: regular rhythm GI: Palpation (GI): Soft to palpation and nontender Objective Data Active Medications Bisacodyl (Bisacodyl 10 Mg Supp.Rect) 10 mg [place] DAILY PRN PRN Reason: Constipation Calcium Carbonate (Calcium Carbonate 750 Mg Tab.Chew) 750 mg PO Q6H PRN PRN Reason: Heartburn Last Admin: 08/14/23 22:28 Dose: 750 mg Documented By: RANDY Comments: given for c/o heartburn Dextrose (Dextrose 50 % 25 Gm/50 Ml Syringe) 25 gm IVPUSH Q15M PRN; Protocol PRN Reason: per Hypoglycemia Standing Ord. Docusate Sodium (Docusate Sodium 100 Mg Capsule) 100 mg PO BID PRN PRN Reason: Constipation Enoxaparin Sodium (Enoxaparin Sodium 40 Mg/0.4 Ml Syringe) 40 mg SUBCUT Q24H ON LICENSE OF [facility] Last Admin: 08/31/23 08:09 Dose: 40 mg Documented By: ALEKSANDAR Glucose (Glucose Gel 15 Gm Gel..Gram.) 15 gm PO Q15M PRN; Protocol PRN Reason: per Hypoglycemia Standing Ord. Nutrition (Parenteral) (Parenteral Nutrition) 2,040 mls @ 85 mls/hr IV .Q24H ON LICENSE OF [facility]; Protocol Stop: 09/01/23 20:59 Last Admin: 08/31/23 21:17 Dose: 85 mls/hr Documented By: CASSIE Insulin Human Lispro (Insulin Lispro 100 Unit/Ml 3 Ml Vial) 0 unit SUBCUT QIDACHS ON LICENSE OF [facility]; Protocol Last Admin: 08/31/23 21:00 Dose: Not Given Documented By: CASSIE Non-Admin Reason: NPO Lidocaine (Lidocaine 4 % Patch Adh..Patch) 1 patch TRANSDERMA DAILY ON LICENSE OF [facility]; Protocol Last Admin: 08/31/23 08:08 Dose: 1 patch Documented By: ALEKSANDAR Pharmacy Consult (Consult Rx Parenteral Nutrition Ordering) 1 each MISCELLANE DAILY PRN PRN Reason: Consult order Prochlorperazine Edisylate (Prochlorperazine Edisylate 10 Mg/2 Ml Vial) 10 mg IVPUSH Q4H PRN PRN Reason: Nausea and Vomiting Last Admin: 08/31/23 21:17 Dose: 10 mg Documented By: CASSIE Sodium Chloride (0.9 % Sodium Chloride Flush 3 Ml Syringe) 3 ml IVFLUSH QSHIFT ON LICENSE OF [facility] Last Admin: 09/01/23 00:00 Dose: 3 ml Documented By: CASSIE Sodium Chloride (Sodium Chloride 0.65 % Nasal 44 Ml Sprbtl) 1 spray NOSTRIL-B Q1H PRN PRN Reason: nasal dryness Sodium Chloride (0.9 % Sodium Chloride Flush 10 Ml Syringe) 5 ml IVFLUSH TID ON LICENSE OF [facility] Last Admin: 08/31/23 21:00 Dose: Not Given Documented By: CASSIE Non-Admin Reason: IV Running Labs 08/26/23 06:47 09/02/23 05:23 Labs: Laboratory Results - last 24 hr 08/31/23 08/31/23 08/31/23 11:09 16:06 20:45 Hold Purple Top Anion Gap Estim Creat Clear Calc Estimated GFR POC Glucose 195 H 190 H 162 H Random Glucose Calcium Phosphorus Magnesium Albumin Triglycerides 09/01/23 09/01/23 06:11 07:10 Hold Purple Top SEE NOTE Anion Gap 12 Estim Creat Clear Calc 193.4 Estimated GFR > 60 POC Glucose 144 H Random Glucose 198 H Calcium 8.9 Phosphorus 3.7 Magnesium 1.9 Albumin 3.0 L Triglycerides 166 H Procedures Date of Service Date of Service: 09/02/23 Progress Note: A&P Assessment and plan (1) Ischemic bowel disease: Status: Acute Assessment and Plan: No further vomiting Keep on sips of clears only and ice chips for now Continue TPN Likely to have narrowing/stricture from ischemic bowel disease Looks well over all Exam benign Continues to pass flatus and has BMs We will consider small bowel series with Gastrografin but anticipate difficulty with test in view of patient's morbid obesity Time Spent With Patient Time: Total time managing care of this patient today ____ minutes. Quality Stroke Does the patient have a stroke diagnosis?: No VTE Prior VTE?: No VTE Risk Level:: Medical - moderate - high VTE Device Contraindication: Treatment Not Indicated VTE Drug Contraindication: N/A - Med Ordered
[2023-09-01] MEDS: Enoxaparin Sodium 40 MG/0.4 ML SYRINGE SUBCUT (08:56)
[2023-09-01] MEDS: Lidocaine 4 % Patch ADH..PATCH 1 PATCH TRANSDERMA (08:57)
[2023-09-01] MEDS: 0.9 % Sodium Chloride Flush 3 ML SYRINGE IVFLUSH ×4 (08:57→22:39)
--- NOTE | 2023-09-01 10:37 | MHC.CLN ---
F/U NO VOMITING PER MD PT TO REMAIN ON CLEARS PT RECEIVING ENSURE CLEAR TID PROVIDES 720KCALS, 24G PROTEIN WITH 100% ACCEPTANCE REVIEWED LABS-TRIGS REMAINS SLIGHTLY ELEVATED DISCUSSED WITH PHARMACY CONTINUE TPN AT MAX GOAL RATE 85ML/HR WITH 86G LIPIDS PROVIDES 2308 TOTAL KCALS (30KCALS/KG BASED ON CMW) , 102G PROTEIN (1.3G/KG), 306G DEXTROSE TPN WILL PROMOTE WOUND HEALING (STAGE 2 R BUTTOCKS) REPLETE LYTES NEEDED MONITOR PO INTAKE CLOSELY
[2023-09-01 11:31] LABS: Glucose, Whole Blood 156 mg/dL (60-115)
[2023-09-01] MEDS: Insulin Lispro 100 UNIT/ML 3 ML VIAL SUBCUT ×3 (12:14→22:38)
--- NOTE | 2023-09-01 14:07 | HO.PM.IMPN ---
Subjective Subjective Date of Service: 09/01/23 Interval History: No further vomiting overnight. Tolerating sips of clear. No acute events Review of Systems Denies chest pain Denies shortness of breath Denies diarrhea Denies fever chills Admits nausea vomiting Physical Exam Vital Signs: Vital Signs: Last Vital Signs Temp 97.6 F 09/01/23 11:08 Pulse 65 09/01/23 12:41 Resp 18 09/01/23 11:08 BP 132/74 09/01/23 11:08 Pulse Ox 97 09/01/23 12:41 O2 Del Method Nasal Cannula 09/01/23 11:08 O2 Flow Rate 2 09/01/23 11:08 FiO2 70 08/11/23 13:00 BMI result Body Mass Index 41.6 Const: Other: Awake alert no acute distress HEENT: Other: NG tube clamped Resp: Other: Clear to auscultation bilaterally no rales rhonchi or wheezes Cardio: Other: No S4; positive S1-S2; no S3 murmurs rubs or gallops GI: Other: Soft nontender nondistended normoactive bowel sounds Extrem: Other: No edema bilaterally Objective Data Active Medications Bisacodyl (Bisacodyl 10 Mg Supp.Rect) 10 mg [place] DAILY PRN PRN Reason: Constipation Calcium Carbonate (Calcium Carbonate 750 Mg Tab.Chew) 750 mg PO Q6H PRN PRN Reason: Heartburn Last Admin: 08/14/23 22:28 Dose: 750 mg Documented By: RADNY Comments: given for c/o heartburn Dextrose (Dextrose 50 % 25 Gm/50 Ml Syringe) 25 gm IVPUSH Q15M PRN; Protocol PRN Reason: per Hypoglycemia Standing Ord. Docusate Sodium (Docusate Sodium 100 Mg Capsule) 100 mg PO BID PRN PRN Reason: Constipation Enoxaparin Sodium (Enoxaparin Sodium 40 Mg/0.4 Ml Syringe) 40 mg SUBCUT Q24H [facility] Last Admin: 09/01/23 08:56 Dose: 40 mg Documented By: KRISTINA Glucose (Glucose Gel 15 Gm Gel..Gram.) 15 gm PO Q15M PRN; Protocol PRN Reason: per Hypoglycemia Standing Ord. Nutrition (Parenteral) (Parenteral Nutrition) 2,040 mls @ 85 mls/hr IV .Q24H [facility]; Protocol Stop: 09/01/23 20:59 Last Admin: 08/31/23 21:17 Dose: 85 mls/hr Documented By: CASSIE Nutrition (Parenteral) (Parenteral Nutrition) 2,040 mls @ 85 mls/hr IV .Q24H [facility]; Protocol Stop: 09/02/23 20:59 Insulin Human Lispro (Insulin Lispro 100 Unit/Ml 3 Ml Vial) 0 unit SUBCUT QIDACHS [facility]; Protocol Last Admin: 09/01/23 12:14 Dose: 2 unit Documented By: KRISTINA Lidocaine (Lidocaine 4 % Patch Adh..Patch) 1 patch TRANSDERMA DAILY [facility]; Protocol Last Admin: 09/01/23 08:57 Dose: 1 patch Documented By: KRISTINA Pharmacy Consult (Consult Rx Parenteral Nutrition Ordering) 1 each MISCELLANE DAILY PRN PRN Reason: Consult order Prochlorperazine Edisylate (Prochlorperazine Edisylate 10 Mg/2 Ml Vial) 10 mg IVPUSH Q4H PRN PRN Reason: Nausea and Vomiting Last Admin: 08/31/23 21:17 Dose: 10 mg Documented By: CASSIE Sodium Chloride (0.9 % Sodium Chloride Flush 3 Ml Syringe) 3 ml IVFLUSH QSHIFT [facility] Last Admin: 09/01/23 08:57 Dose: 3 ml Documented By: KRISTINA Sodium Chloride (Sodium Chloride 0.65 % Nasal 44 Ml Sprbtl) 1 spray NOSTRIL-B Q1H PRN PRN Reason: nasal dryness Sodium Chloride (0.9 % Sodium Chloride Flush 10 Ml Syringe) 5 ml IVFLUSH TID [facility] Last Admin: 09/01/23 08:59 Dose: Not Given Documented By: KRISTINA Non-Admin Reason: Duplicate Order Labs 08/26/23 06:47 09/01/23 06:11 Labs: Laboratory Results - last 24 hr 08/31/23 08/31/23 09/01/23 16:06 20:45 06:11 Hold Purple Top SEE NOTE Anion Gap 12 Estim Creat Clear Calc 193.4 Estimated GFR > 60 POC Glucose 190 H 162 H Random Glucose 198 H Calcium 8.9 Phosphorus 3.7 Magnesium 1.9 Albumin 3.0 L Triglycerides 166 H 09/01/23 09/01/23 07:10 11:14 Hold Purple Top Anion Gap Estim Creat Clear Calc Estimated GFR POC Glucose 144 H 156 H Random Glucose Calcium Phosphorus Magnesium Albumin Triglycerides Assessment and Plan (1) Status post small bowel resection: Status: Acute (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 1.Small-bowel obstruction complicated by ischemic bowel and perforation -s/p surgery 08/09/23 -receiving IV TPN via PICC line -NPO with ice chips as per surgery -further imaging/workup as per Dr. Brasher 2.Nocturnal hypoxia -overnight pulse ox showed severe hypoxia, patient diagnosed to have moderately severe obstructive sleep apnea, Dr. Monroy recommend CPAP he will need to have CPAP titration study in the sleep lab to determine the optimal pressure and to ensure that hypoxemia is corrected. 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
--- NOTE | 2023-09-01 15:08 | PM.EVENT ---
Event Note Date of Service: 09/02/23 Event Note: Seen on afternoon rounds Says he continues to pass flatus Denies any nausea today Denies any abdominal pain Says he is comfortable Okay to have little sips of liquids for now He says he does not want NG tube Abdomen soft Looks well overall TPN Time Spent With Patient Time: Total time managing care of this patient today ____ minutes.
[2023-09-01 15:55] LABS: Glucose, Whole Blood 165 mg/dL (60-115)
[2023-09-01] MEDS: Prochlorperazine Edisylate 10 MG/2 ML VIAL IVPUSH (19:38)
[2023-09-01 20:45] LABS: Glucose, Whole Blood 180 mg/dL (60-115)
[2023-09-01] MEDS: Parenteral Nutrition 2,040 ML 85 ML IV (22:37)
[2023-09-02 04:00] VITALS: BP 129/81; PULSE 108; RESP 20; TEMP 36.8
[2023-09-02 06:00] VITALS: BMI 43.0
[2023-09-02 06:34] LABS: Albumin Level 3.1 g/dL (3.5-5.0); Anion Gap 14 (12-20); Blood Urea Nitrogen 20 mg/dL (9-16); Carbon Dioxide 21 mmol/L (22-29); Chloride 111 mmol/L (96-108); Creatinine Clr Calc Pharmacy 204.9; Estimated Glomerular Filt Rate > 60; Glucose Random 194 mg/dL (60-115); Magnesium 1.8 mg/dL (1.6-2.6); Phosphorus 3.1 mg/dL (2.7-4.5); Potassium 3.1 mmol/L (3.3-5.1); Sodium 143 mmol/L (135-145); Triglycerides 182 mg/dL (<150)
[2023-09-02 07:31] LABS: Glucose, Whole Blood 130 mg/dL (60-115)
[2023-09-02 08:00] VITALS: BP 120/81; PULSE 108; RESP 20; TEMP 36.9; O2SAT 97
[2023-09-02] MEDS: Enoxaparin Sodium 40 MG/0.4 ML SYRINGE SUBCUT (08:41)
[2023-09-02] MEDS: Lidocaine 4 % Patch ADH..PATCH 1 PATCH TRANSDERMA (08:41)
[2023-09-02] MEDS: 0.9 % Sodium Chloride Flush 3 ML SYRINGE IVFLUSH ×2 (08:42→22:37)
--- NOTE | 2023-09-02 08:44 | PM.PNGS ---
Subjective Subjective Date of Service: 09/04/23 Interval history: Denies nausea or vomiting Says he has been taking sips of ensure and some liquids Physical Exam Vital Signs: Vital Signs: Last Vital Signs Temp 98.4 F 09/02/23 08:00 Pulse 108 H 09/02/23 08:00 Resp 20 09/02/23 08:00 BP 120/81 09/02/23 08:00 Pulse Ox 97 09/02/23 08:00 O2 Del Method Nasal Cannula 09/02/23 08:00 O2 Flow Rate 2 09/02/23 08:00 FiO2 70 08/11/23 13:00 BMI result Body Mass Index 43.0 Const: General: comfortable and no acute distress Resp: Effort & Inspection: normal respiratory effort GI: Palpation (GI): Soft to palpation, not firm and no guarding Objective Data Active Medications Bisacodyl (Bisacodyl 10 Mg Supp.Rect) 10 mg [place] DAILY PRN PRN Reason: Constipation Calcium Carbonate (Calcium Carbonate 750 Mg Tab.Chew) 750 mg PO Q6H PRN PRN Reason: Heartburn Last Admin: 08/14/23 22:28 Dose: 750 mg Documented By: RANDY Comments: given for c/o heartburn Dextrose (Dextrose 50 % 25 Gm/50 Ml Syringe) 25 gm IVPUSH Q15M PRN; Protocol PRN Reason: per Hypoglycemia Standing Ord. Docusate Sodium (Docusate Sodium 100 Mg Capsule) 100 mg PO BID PRN PRN Reason: Constipation Enoxaparin Sodium (Enoxaparin Sodium 40 Mg/0.4 Ml Syringe) 40 mg SUBCUT Q24H [facility] Last Admin: 09/01/23 08:56 Dose: 40 mg Documented By: KRISTINA Glucose (Glucose Gel 15 Gm Gel..Gram.) 15 gm PO Q15M PRN; Protocol PRN Reason: per Hypoglycemia Standing Ord. Nutrition (Parenteral) (Parenteral Nutrition) 2,040 mls @ 85 mls/hr IV .Q24H [facility]; Protocol Stop: 09/02/23 20:59 Last Admin: 09/01/23 22:37 Dose: 85 mls/hr Documented By: LOPEZ Nutrition (Parenteral) (Parenteral Nutrition) 2,040 mls @ 85 mls/hr IV .Q24H [facility]; Protocol Stop: 09/03/23 20:59 Insulin Human Lispro (Insulin Lispro 100 Unit/Ml 3 Ml Vial) 0 unit SUBCUT QIDACHS [facility]; Protocol Last Admin: 09/02/23 07:32 Dose: Not Given Documented By: ELAYNE Non-Admin Reason: No Insulin Coverage Lidocaine (Lidocaine 4 % Patch Adh..Patch) 1 patch TRANSDERMA DAILY [facility]; Protocol Last Admin: 09/01/23 08:57 Dose: 1 patch Documented By: KRISTINA Pharmacy Consult (Consult Rx Parenteral Nutrition Ordering) 1 each MISCELLANE DAILY PRN PRN Reason: Consult order Prochlorperazine Edisylate (Prochlorperazine Edisylate 10 Mg/2 Ml Vial) 10 mg IVPUSH Q4H PRN PRN Reason: Nausea and Vomiting Last Admin: 09/01/23 19:38 Dose: 10 mg Documented By: LOPEZ Sodium Chloride (0.9 % Sodium Chloride Flush 3 Ml Syringe) 3 ml IVFLUSH QSHIFT [facility] Last Admin: 09/01/23 22:39 Dose: 3 ml Documented By: LOPEZ Sodium Chloride (Sodium Chloride 0.65 % Nasal 44 Ml Sprbtl) 1 spray NOSTRIL-B Q1H PRN PRN Reason: nasal dryness Sodium Chloride (0.9 % Sodium Chloride Flush 10 Ml Syringe) 5 ml IVFLUSH TID [facility] Last Admin: 09/01/23 22:44 Dose: Not Given Documented By: LOPEZ Non-Admin Reason: Previously Administered Labs 08/26/23 06:47 09/04/23 05:44 Labs: Laboratory Results - last 24 hr 09/01/23 09/01/23 09/01/23 11:14 15:45 20:41 Hold Purple Top Anion Gap Estim Creat Clear Calc Estimated GFR POC Glucose 156 H 165 H 180 H Random Glucose Calcium Phosphorus Magnesium Albumin Triglycerides 09/02/23 09/02/23 05:23 07:27 Hold Purple Top SEE NOTE Anion Gap 14 Estim Creat Clear Calc 204.9 Estimated GFR > 60 POC Glucose 130 H Random Glucose 194 H Calcium 9.0 Phosphorus 3.1 Magnesium 1.8 Albumin 3.1 L Triglycerides 182 H Procedures Date of Service Date of Service: 09/04/23 Progress Note: A&P Assessment and plan (1) Status post small bowel resection: Status: Acute Assessment and Plan: Continues to pass flatus and BMs Denies nausea or vomiting Says he is tolerating sips of liquids and ensure Denies abdominal pain Abdomen soft We will keep on current diet for now Continue TPN Looks well otherwise and has benign exam Replace potassium Time Spent With Patient Time: Total time managing care of this patient today ____ minutes. Quality Stroke Does the patient have a stroke diagnosis?: No VTE Prior VTE?: No VTE Risk Level:: Medical - moderate - high VTE Device Contraindication: Treatment Not Indicated VTE Drug Contraindication: N/A - Med Ordered
[2023-09-02] MEDS: 0.9 % Sodium Chloride Flush 10 ML SYRINGE 5 ML IVFLUSH (08:47)
--- NOTE | 2023-09-02 10:25 | MHC.CLN ---
F/U DIET RX: C/L PT RECEIVING ENSURE CLEAR TID PROVIDES 720KCALS, 24G PROTEIN WITH 100% ACCEPTANCE REVIEWED LABS-TRIGS REMAINS SLIGHTLY ELEVATED DISCUSSED WITH PHARMACY CONTINUE TPN AT MAX GOAL RATE 85ML/HR WITH 86G LIPIDS PROVIDES 2308 TOTAL KCALS (30KCALS/KG BASED ON CMW) , 102G PROTEIN (1.3G/KG), 306G DEXTROSE TPN WILL PROMOTE WOUND HEALING (STAGE 2 R BUTTOCKS) REPLETE LYTES NEEDED MONITOR PO INTAKE CLOSELY AND ENCOURAGE SUPPLEMENTS
[2023-09-02 11:21] LABS: Glucose, Whole Blood 142 mg/dL (60-115)
[2023-09-02 12:00] VITALS: BP 117/76; PULSE 112; RESP 20; TEMP 36.8; O2SAT 98
--- NOTE | 2023-09-02 14:58 | PM.EVENT ---
Event Note Date of Service: 09/04/23 Event Note: continues to feel well no N/V looks comfortable abd soft ok to have small sips of liquids, Ensure TPN stable overall Time Spent With Patient Time: Total time managing care of this patient today ____ minutes.
--- NOTE | 2023-09-02 15:20 | P.PNIM_ITS ---
Subjective Subjective Date of Service: 09/02/23 Interval History: No further vomiting. Tolerating small sips of ensure and ice chips Review of Systems Denies chest pain Denies shortness of breath Denies diarrhea Denies fever chills Admits nausea vomiting Physical Exam 2 Vital Signs: Vital Signs: Last Vital Signs Temp 98.3 F 09/02/23 12:00 Pulse 112 H 09/02/23 12:00 Resp 20 09/02/23 12:00 BP 117/76 09/02/23 12:00 Pulse Ox 98 09/02/23 12:00 O2 Del Method Nasal Cannula 09/02/23 12:00 O2 Flow Rate 2 09/02/23 12:00 FiO2 70 08/11/23 13:00 BMI result Body Mass Index 43.0 Const: Other: Awake alert no acute distress HEENT: Other: NG tube clamped Resp: Other: Clear to auscultation bilaterally no rales rhonchi or wheezes Cardio: Other: No S4; positive S1-S2; no S3 murmurs rubs or gallops GI: Other: Soft nontender nondistended normoactive bowel sounds Extrem: Other: No edema bilaterally Objective Data Active Medications Bisacodyl (Bisacodyl 10 Mg Supp.Rect) 10 mg [place] DAILY PRN PRN Reason: Constipation Calcium Carbonate (Calcium Carbonate 750 Mg Tab.Chew) 750 mg PO Q6H PRN PRN Reason: Heartburn Last Admin: 08/14/23 22:28 Dose: 750 mg Documented By: RANDY Comments: given for c/o heartburn Dextrose (Dextrose 50 % 25 Gm/50 Ml Syringe) 25 gm IVPUSH Q15M PRN; Protocol PRN Reason: per Hypoglycemia Standing Ord. Docusate Sodium (Docusate Sodium 100 Mg Capsule) 100 mg PO BID PRN PRN Reason: Constipation Enoxaparin Sodium (Enoxaparin Sodium 40 Mg/0.4 Ml Syringe) 40 mg SUBCUT Q24H [facility] Last Admin: 09/02/23 08:41 Dose: 40 mg Documented By: ELAYNE Glucose (Glucose Gel 15 Gm Gel..Gram.) 15 gm PO Q15M PRN; Protocol PRN Reason: per Hypoglycemia Standing Ord. Nutrition (Parenteral) (Parenteral Nutrition) 2,040 mls @ 85 mls/hr IV .Q24H [facility]; Protocol Stop: 09/02/23 20:59 Last Admin: 09/01/23 22:37 Dose: 85 mls/hr Documented By: LOPEZ Nutrition (Parenteral) (Parenteral Nutrition) 2,040 mls @ 85 mls/hr IV .Q24H [facility]; Protocol Stop: 09/03/23 20:59 Insulin Human Lispro (Insulin Lispro 100 Unit/Ml 3 Ml Vial) 0 unit SUBCUT QIDACHS [facility]; Protocol Last Admin: 09/02/23 11:24 Dose: Not Given Documented By: ELAYNE Non-Admin Reason: No Insulin Coverage Lidocaine (Lidocaine 4 % Patch Adh..Patch) 1 patch TRANSDERMA DAILY [facility]; Protocol Last Admin: 09/02/23 08:41 Dose: 1 patch Documented By: ELAYNE Pharmacy Consult (Consult Rx Parenteral Nutrition Ordering) 1 each MISCELLANE DAILY PRN PRN Reason: Consult order Prochlorperazine Edisylate (Prochlorperazine Edisylate 10 Mg/2 Ml Vial) 10 mg IVPUSH Q4H PRN PRN Reason: Nausea and Vomiting Last Admin: 09/01/23 19:38 Dose: 10 mg Documented By: LOPEZ Sodium Chloride (0.9 % Sodium Chloride Flush 3 Ml Syringe) 3 ml IVFLUSH QSHIFT [facility] Last Admin: 09/02/23 08:42 Dose: 3 ml Documented By: ELAYNE Sodium Chloride (Sodium Chloride 0.65 % Nasal 44 Ml Sprbtl) 1 spray NOSTRIL-B Q1H PRN PRN Reason: nasal dryness Sodium Chloride (0.9 % Sodium Chloride Flush 10 Ml Syringe) 5 ml IVFLUSH TID [facility] Last Admin: 09/02/23 08:47 Dose: 5 ml Documented By: ELAYNE Labs 08/26/23 06:47 09/02/23 05:23 Labs: Laboratory Results - last 24 hr 09/01/23 09/01/23 09/02/23 15:45 20:41 05:23 Hold Purple Top SEE NOTE Anion Gap 14 Estim Creat Clear Calc 204.9 Estimated GFR > 60 POC Glucose 165 H 180 H Random Glucose 194 H Calcium 9.0 Phosphorus 3.1 Magnesium 1.8 Albumin 3.1 L Triglycerides 182 H 04/04/24 04/04/24 07:27 11:13 Hold Purple Top Anion Gap Estim Creat Clear Calc Estimated GFR POC Glucose 130 H 142 H Random Glucose Calcium Phosphorus Magnesium Albumin Triglycerides Assessment and Plan (1) Status post small bowel resection: Status: Acute (2) Ischemic bowel disease: Status: Acute Plan 53M PMH significant for 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 1.Small-bowel obstruction complicated by ischemic bowel and perforation -s/p surgery 08/09/23 -receiving IV TPN via PICC line -diet advanced to sips of ensure and ice chips as per Dr. Brasher -further imaging/workup as per Dr. Brasher 2.Nocturnal hypoxia -overnight pulse ox showed severe hypoxia, patient diagnosed to have moderately severe obstructive sleep apnea, Dr. Monroy recommend CPAP he will need to have CPAP titration study in the sleep lab to determine the optimal pressure and to ensure that hypoxemia is corrected. 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
[2023-09-02 15:46] VITALS: BP 108/76; PULSE 102; RESP 18; TEMP 36.7; O2SAT 96
[2023-09-02 16:22] LABS: Glucose, Whole Blood 162 mg/dL (60-115)
[2023-09-02] MEDS: Insulin Lispro 100 UNIT/ML 3 ML VIAL SUBCUT ×2 (16:40→22:37)
[2023-09-02 20:00] VITALS: BP 134/82; PULSE 109; RESP 20; TEMP 36.6; O2SAT 99
[2023-09-02 21:47] LABS: Glucose, Whole Blood 167 mg/dL (60-115)
[2023-09-02] MEDS: Parenteral Nutrition 2,040 ML 85 ML IV (22:36)
[2023-09-02 23:39] VITALS: BP 102/79; PULSE 110; RESP 18; TEMP 36.6; O2SAT 98
[2023-09-03] VITALS (7 sets, daily range): BP systolic 111–137; BP diastolic 77–85; PULSE 104–112; RESP 16–20; TEMP 35.9–37.1; O2SAT 97–99; BMI 42.7
[2023-09-03] MEDS: Prochlorperazine Edisylate 10 MG/2 ML VIAL IVPUSH ×3 (02:46→21:41)
[2023-09-03 06:42] LABS: Albumin Level 3.1 g/dL (3.5-5.0); Anion Gap 13 (12-20); Blood Urea Nitrogen 20 mg/dL (9-16); Calcium 9.1 mg/dL (8.4-10.2); Carbon Dioxide 24 mmol/L (22-29); Chloride 112 mmol/L (96-108); Creatinine Clr Calc Pharmacy 217.6; Estimated Glomerular Filt Rate > 60; Glucose Random 186 mg/dL (60-115); Magnesium 1.8 mg/dL (1.6-2.6); Phosphorus 3.5 mg/dL (2.7-4.5); Potassium 3.1 mmol/L (3.3-5.1); Sodium 146 mmol/L (135-145); Triglycerides 182 mg/dL (<150)
[2023-09-03 07:32] LABS: Glucose, Whole Blood 187 mg/dL (60-115)
--- NOTE | 2023-09-03 07:34 | PM.PNGS ---
Subjective Subjective Date of Service: 09/04/23 Interval history: feels well denies n/v passing flatus no abdl pain Physical Exam Vital Signs: Vital Signs: Last Vital Signs Temp 98.4 F 09/03/23 07:26 Pulse 106 H 09/03/23 07:26 Resp 20 09/03/23 07:26 BP 137/85 09/03/23 07:26 Pulse Ox 99 09/03/23 07:26 O2 Del Method Nasal Cannula 09/03/23 07:26 O2 Flow Rate 2 09/03/23 07:26 FiO2 70 08/11/23 13:00 BMI result Body Mass Index 42.7 Const: General: comfortable and no acute distress Resp: Effort & Inspection: normal respiratory effort Cardio: Rhythm: regular rhythm GI: Palpation (GI): Soft to palpation, not firm and no guarding Objective Data Active Medications Bisacodyl (Bisacodyl 10 Mg Supp.Rect) 10 mg [place] DAILY PRN PRN Reason: Constipation Calcium Carbonate (Calcium Carbonate 750 Mg Tab.Chew) 750 mg PO Q6H PRN PRN Reason: Heartburn Last Admin: 08/14/23 22:28 Dose: 750 mg Documented By: RANDY Comments: given for c/o heartburn Dextrose (Dextrose 50 % 25 Gm/50 Ml Syringe) 25 gm IVPUSH Q15M PRN; Protocol PRN Reason: per Hypoglycemia Standing Ord. Docusate Sodium (Docusate Sodium 100 Mg Capsule) 100 mg PO BID PRN PRN Reason: Constipation Enoxaparin Sodium (Enoxaparin Sodium 40 Mg/0.4 Ml Syringe) 40 mg SUBCUT Q24H [facility] Last Admin: 09/02/23 08:41 Dose: 40 mg Documented By: ELAYNE Glucose (Glucose Gel 15 Gm Gel..Gram.) 15 gm PO Q15M PRN; Protocol PRN Reason: per Hypoglycemia Standing Ord. Nutrition (Parenteral) (Parenteral Nutrition) 2,040 mls @ 85 mls/hr IV .Q24H [facility]; Protocol Stop: 09/03/23 20:59 Last Admin: 09/02/23 22:36 Dose: 85 mls/hr Documented By: LOPEZ Potassium Chloride (Potassium Chloride/H20) 10 meq in 100 mls @ 100 mls/hr IV Q1H [facility] Stop: 09/03/23 11:14 Insulin Human Lispro (Insulin Lispro 100 Unit/Ml 3 Ml Vial) 0 unit SUBCUT QIDACHS [facility]; Protocol Last Admin: 09/02/23 22:37 Dose: 2 unit Documented By: LOPEZ Lidocaine (Lidocaine 4 % Patch Adh..Patch) 1 patch TRANSDERMA DAILY [facility]; Protocol Last Admin: 09/02/23 08:41 Dose: 1 patch Documented By: ELAYNE Pharmacy Consult (Consult Rx Parenteral Nutrition Ordering) 1 each MISCELLANE DAILY PRN PRN Reason: Consult order Prochlorperazine Edisylate (Prochlorperazine Edisylate 10 Mg/2 Ml Vial) 10 mg IVPUSH Q4H PRN PRN Reason: Nausea and Vomiting Last Admin: 09/03/23 02:46 Dose: 10 mg Documented By: LOPEZ Sodium Chloride (0.9 % Sodium Chloride Flush 3 Ml Syringe) 3 ml IVFLUSH QSHIFT [facility] Last Admin: 09/02/23 22:37 Dose: 3 ml Documented By: LOPEZ Sodium Chloride (Sodium Chloride 0.65 % Nasal 44 Ml Sprbtl) 1 spray NOSTRIL-B Q1H PRN PRN Reason: nasal dryness Sodium Chloride (0.9 % Sodium Chloride Flush 10 Ml Syringe) 5 ml IVFLUSH TID [facility] Last Admin: 09/02/23 16:52 Dose: Not Given Documented By: ELAYNE Non-Admin Reason: IV Running Labs 08/26/23 06:47 09/04/23 05:44 Labs: Laboratory Results - last 24 hr 09/02/23 09/02/23 09/02/23 11:13 16:14 21:37 Anion Gap Estim Creat Clear Calc Estimated GFR POC Glucose 142 H 162 H 167 H Random Glucose Calcium Phosphorus Magnesium Albumin Triglycerides 09/03/23 09/03/23 09/03/23 06:03 06:14 07:24 Anion Gap 13 Estim Creat Clear Calc 217.6 Estimated GFR > 60 POC Glucose 187 H Random Glucose 186 H Calcium 9.1 Phosphorus Cancelled 3.5 Magnesium Cancelled 1.8 Albumin Cancelled 3.1 L Triglycerides Cancelled 182 H Procedures Date of Service Date of Service: 09/04/23 Progress Note: A&P Assessment and plan (1) Ischemic bowel disease: Status: Acute Assessment and Plan: clinically looks well ok to try small sips of liquids, incl Ensure passing flatus TPN likely has stricturing from ischemia Time Spent With Patient Time: Total time managing care of this patient today ____ minutes. Quality Stroke Does the patient have a stroke diagnosis?: No VTE Prior VTE?: No VTE Risk Level:: Medical - moderate - high VTE Device Contraindication: Treatment Not Indicated VTE Drug Contraindication: N/A - Med Ordered
[2023-09-03] MEDS: Potassium Chloride/H20 10 MEQ/100 ML PIGGYBACK 100 MEQ IV ×4 (08:34→13:04)
[2023-09-03] MEDS: Insulin Lispro 100 UNIT/ML 3 ML VIAL SUBCUT ×3 (08:35→17:03)
[2023-09-03] MEDS: Enoxaparin Sodium 40 MG/0.4 ML SYRINGE SUBCUT (08:36)
[2023-09-03] MEDS: Lidocaine 4 % Patch ADH..PATCH 1 PATCH TRANSDERMA (08:37)
[2023-09-03] MEDS: 0.9 % Sodium Chloride Flush 3 ML SYRINGE IVFLUSH ×3 (08:37→21:42)
--- NOTE | 2023-09-03 10:37 | MHC.CLN ---
F/U DIET RX: C/L PT RECEIVING ENSURE CLEAR TID PROVIDES 720KCALS, 24G PROTEIN WITH 100% ACCEPTANCE REVIEWED LABS-TRIGS REMAINS ELEVATED DISCUSSED WITH PHARMACY CONTINUE TPN AT MAX GOAL RATE 85ML/HR WITH 86G LIPIDS PROVIDES 2308 TOTAL KCALS (30KCALS/KG BASED ON CMW) , 102G PROTEIN (1.3G/KG), 306G DEXTROSE TPN WILL PROMOTE WOUND HEALING (STAGE 2 R BUTTOCKS) REPLETE LYTES NEEDED MONITOR PO INTAKE CLOSELY AND ENCOURAGE SUPPLEMENTS
[2023-09-03 11:36] LABS: Glucose, Whole Blood 156 mg/dL (60-115)
--- NOTE | 2023-09-03 12:27 | MHC.CM.PN ---
Pt is not yet ready for DC, he is trying to advance diet, slowly. DC plan is home with [facility].
[2023-09-03 16:17] LABS: Glucose, Whole Blood 160 mg/dL (60-115)
[2023-09-03 20:28] LABS: Glucose, Whole Blood 119 mg/dL (60-115)
[2023-09-03] MEDS: Parenteral Nutrition 2,040 ML 85 ML IV (21:23)
[2023-09-03] MEDS: 0.9 % Sodium Chloride Flush 10 ML SYRINGE 5 ML IVFLUSH (21:41)
[2023-09-04 03:55] VITALS: BP 120/75; PULSE 105; RESP 16; TEMP 36.4; O2SAT 99
[2023-09-04 06:40] LABS: Anion Gap 13 (12-20); Blood Urea Nitrogen 21 mg/dL (9-16); Carbon Dioxide 23 mmol/L (22-29); Chloride 112 mmol/L (96-108); Creatinine Clr Calc Pharmacy 190.8; Estimated Glomerular Filt Rate > 60; Glucose Random 215 mg/dL (60-115); Magnesium 1.8 mg/dL (1.6-2.6); Phosphorus 3.5 mg/dL (2.7-4.5); Potassium 3.5 mmol/L (3.3-5.1); Sodium 144 mmol/L (135-145); Triglycerides 197 mg/dL (<150)
[2023-09-04 07:27] LABS: Glucose, Whole Blood 154 mg/dL (60-115)
[2023-09-04] MEDS: Enoxaparin Sodium 40 MG/0.4 ML SYRINGE SUBCUT (07:47)
[2023-09-04] MEDS: Insulin Lispro 100 UNIT/ML 3 ML VIAL SUBCUT ×3 (07:47→16:30)
[2023-09-04] MEDS: Lidocaine 4 % Patch ADH..PATCH 1 PATCH TRANSDERMA (07:47)
[2023-09-04] MEDS: 0.9 % Sodium Chloride Flush 10 ML SYRINGE 5 ML IVFLUSH ×4 (07:49→20:50)
[2023-09-04 08:00] VITALS: BP 134/73; PULSE 107; RESP 20; TEMP 36.4; O2SAT 97
--- NOTE | 2023-09-04 10:05 | PM.PNGS ---
Subjective Subjective Date of Service: 09/06/23 Interval history: says he feels well denies abdl pain no further nausea or vomitting passing flatus Physical Exam Vital Signs: Vital Signs: Last Vital Signs Temp 97.5 F 09/04/23 08:00 Pulse 107 H 09/04/23 08:00 Resp 20 09/04/23 08:00 BP 134/73 09/04/23 08:00 Pulse Ox 97 09/04/23 08:00 O2 Del Method Nasal Cannula 09/04/23 08:00 O2 Flow Rate 2 09/04/23 08:00 FiO2 70 08/11/23 13:00 BMI result Body Mass Index 42.7 Const: General: comfortable and no acute distress Resp: Effort & Inspection: normal respiratory effort Cardio: Rhythm: regular rhythm GI: Palpation (GI): Soft to palpation, not firm, nontender and no guarding Objective Data Active Medications Bisacodyl (Bisacodyl 10 Mg Supp.Rect) 10 mg [place] DAILY PRN PRN Reason: Constipation Calcium Carbonate (Calcium Carbonate 750 Mg Tab.Chew) 750 mg PO Q6H PRN PRN Reason: Heartburn Last Admin: 08/14/23 22:28 Dose: 750 mg Documented By: RANDY Comments: given for c/o heartburn Docusate Sodium (Docusate Sodium 100 Mg Capsule) 100 mg PO BID PRN PRN Reason: Constipation Enoxaparin Sodium (Enoxaparin Sodium 40 Mg/0.4 Ml Syringe) 40 mg SUBCUT Q24H [facility] Last Admin: 09/04/23 07:47 Dose: 40 mg Documented By: ARMANDO Glucose (Glucose Gel 15 Gm Gel..Gram.) 15 gm PO Q15M PRN; Protocol PRN Reason: per Hypoglycemia Standing Ord. Nutrition (Parenteral) (Parenteral Nutrition) 2,040 mls @ 85 mls/hr IV .Q24H [facility]; Protocol Stop: 09/04/23 20:59 Last Admin: 09/03/23 21:23 Dose: 85 mls/hr Documented By: LUPILLO Dextrose (D10) 250 mls @ 750 mls/hr IV Q15M PRN PRN Reason: per Hypoglycemia Standing Ord. Nutrition (Parenteral) (Parenteral Nutrition) 2,040 mls @ 85 mls/hr IV .Q24H [facility]; Protocol Stop: 09/05/23 20:59 Insulin Human Lispro (Insulin Lispro 100 Unit/Ml 3 Ml Vial) 0 unit SUBCUT QIDACHS [facility]; Protocol Last Admin: 09/04/23 07:47 Dose: 2 unit Documented By: ARMANDO Lidocaine (Lidocaine 4 % Patch Adh..Patch) 1 patch TRANSDERMA DAILY [facility]; Protocol Last Admin: 09/04/23 07:47 Dose: 1 patch Documented By: ARMANDO Pharmacy Consult (Consult Rx Parenteral Nutrition Ordering) 1 each MISCELLANE DAILY PRN PRN Reason: Consult order Prochlorperazine Edisylate (Prochlorperazine Edisylate 10 Mg/2 Ml Vial) 10 mg IVPUSH Q4H PRN PRN Reason: Nausea and Vomiting Last Admin: 09/03/23 21:41 Dose: 10 mg Documented By: LUPILLO Sodium Chloride (0.9 % Sodium Chloride Flush 3 Ml Syringe) 3 ml IVFLUSH QSHIFT [facility] Last Admin: 09/04/23 07:50 Dose: Not Given Documented By: ARMANDO Non-Admin Reason: 5cc flushed tp picc line Sodium Chloride (Sodium Chloride 0.65 % Nasal 44 Ml Sprbtl) 1 spray NOSTRIL-B Q1H PRN PRN Reason: nasal dryness Sodium Chloride (0.9 % Sodium Chloride Flush 10 Ml Syringe) 5 ml IVFLUSH TID [facility] Last Admin: 09/04/23 07:49 Dose: 5 ml Documented By: ARMANDO Labs 08/26/23 06:47 09/05/23 05:57 Labs: Laboratory Results - last 24 hr 09/03/23 09/03/23 09/03/23 11:25 16:13 20:07 Hold Purple Top Anion Gap Estim Creat Clear Calc Estimated GFR POC Glucose 156 H 160 H 119 H Random Glucose Calcium Phosphorus Magnesium Albumin Triglycerides 09/04/23 09/04/23 05:44 07:22 Hold Purple Top SEE NOTE Anion Gap 13 Estim Creat Clear Calc 190.8 Estimated GFR > 60 POC Glucose 154 H Random Glucose 215 H Calcium 9.0 Phosphorus 3.5 Magnesium 1.8 Albumin 3.0 L Triglycerides 197 H Procedures Date of Service Date of Service: 09/06/23 Progress Note: A&P Assessment and plan (1) Ischemic bowel disease: Status: Acute Assessment and Plan: has had periodic nausea and vomitting with advancement of diet ok to do small sips of Ensure, clears TPN may have stricturing from ischemia plan to do CT with oral contrast next week of we are unable to advance diet looks well overall Time Spent With Patient Time: Total time managing care of this patient today ____ minutes. Quality Stroke Does the patient have a stroke diagnosis?: No VTE Prior VTE?: No VTE Risk Level:: Medical - moderate - high VTE Device Contraindication: Treatment Not Indicated VTE Drug Contraindication: N/A - Med Ordered
[2023-09-04 11:21] VITALS: BP 130/77; PULSE 105; RESP 20; TEMP 36.3; O2SAT 95
[2023-09-04 11:22] LABS: Glucose, Whole Blood 164 mg/dL (60-115)
--- NOTE | 2023-09-04 13:50 | HO.PM.IMPN ---
Subjective Subjective Date of Service: 09/04/23 Interval History: no N/V passing gas no abd pain Review of Systems Review of Systems: Yes all other systems are reviewed and are negative Physical Exam Vital Signs: Vital Signs: Last Vital Signs Temp 97.3 F 09/04/23 11:21 Pulse 105 H 09/04/23 11:21 Resp 20 09/04/23 11:21 BP 130/77 09/04/23 11:21 Pulse Ox 95 09/04/23 11:21 O2 Del Method Nasal Cannula 09/04/23 11:21 O2 Flow Rate 2 09/04/23 11:21 FiO2 70 08/11/23 13:00 BMI result Body Mass Index 42.7 Gen: in no acute distress HEENT: sclera anicteric, moist mucus membranes Neck: supple Lungs: clear to auscultation bilaterally Heart: regular rate and rhythm, no murmurs Abd: soft, non-tender, non-distended, morbidly obese Ext: no edema, LUE PICC Skin: warm/well-perfused Neuro: alert and oriented x3, no focal findings Psych: appropriate affect Objective Data Active Medications Bisacodyl (Bisacodyl 10 Mg Supp.Rect) 10 mg [place] DAILY PRN PRN Reason: Constipation Calcium Carbonate (Calcium Carbonate 750 Mg Tab.Chew) 750 mg PO Q6H PRN PRN Reason: Heartburn Last Admin: 08/14/23 22:28 Dose: 750 mg Documented By: RANDY Comments: given for c/o heartburn Docusate Sodium (Docusate Sodium 100 Mg Capsule) 100 mg PO BID PRN PRN Reason: Constipation Enoxaparin Sodium (Enoxaparin Sodium 40 Mg/0.4 Ml Syringe) 40 mg SUBCUT Q24H [facility] Last Admin: 09/04/23 07:47 Dose: 40 mg Documented By: ARMANDO Glucose (Glucose Gel 15 Gm Gel..Gram.) 15 gm PO Q15M PRN; Protocol PRN Reason: per Hypoglycemia Standing Ord. Nutrition (Parenteral) (Parenteral Nutrition) 2,040 mls @ 85 mls/hr IV .Q24H [facility]; Protocol Stop: 09/04/23 20:59 Last Admin: 09/03/23 21:23 Dose: 85 mls/hr Documented By: LUPILLO Dextrose (D10) 250 mls @ 750 mls/hr IV Q15M PRN PRN Reason: per Hypoglycemia Standing Ord. Nutrition (Parenteral) (Parenteral Nutrition) 2,040 mls @ 85 mls/hr IV .Q24H [facility]; Protocol Stop: 09/05/23 20:59 Insulin Human Lispro (Insulin Lispro 100 Unit/Ml 3 Ml Vial) 0 unit SUBCUT QIDACHS [facility]; Protocol Last Admin: 09/04/23 11:37 Dose: 2 unit Documented By: ARMANDO Lidocaine (Lidocaine 4 % Patch Adh..Patch) 1 patch TRANSDERMA DAILY [facility]; Protocol Last Admin: 09/04/23 07:47 Dose: 1 patch Documented By: ARMANDO Pharmacy Consult (Consult Rx Parenteral Nutrition Ordering) 1 each MISCELLANE DAILY PRN PRN Reason: Consult order Prochlorperazine Edisylate (Prochlorperazine Edisylate 10 Mg/2 Ml Vial) 10 mg IVPUSH Q4H PRN PRN Reason: Nausea and Vomiting Last Admin: 09/03/23 21:41 Dose: 10 mg Documented By: LUPILLO Sodium Chloride (0.9 % Sodium Chloride Flush 3 Ml Syringe) 3 ml IVFLUSH QSHIFT [facility] Last Admin: 09/04/23 07:50 Dose: Not Given Documented By: ARMANDO Non-Admin Reason: 5cc flushed tp picc line Sodium Chloride (Sodium Chloride 0.65 % Nasal 44 Ml Sprbtl) 1 spray NOSTRIL-B Q1H PRN PRN Reason: nasal dryness Sodium Chloride (0.9 % Sodium Chloride Flush 10 Ml Syringe) 5 ml IVFLUSH TID [facility] Last Admin: 09/04/23 12:55 Dose: 5 ml Documented By: ARMANDO Labs 08/26/23 06:47 09/04/23 05:44 Labs: Laboratory Results - last 24 hr 09/03/23 09/03/23 09/04/23 16:13 20:07 05:44 Hold Purple Top SEE NOTE Anion Gap 13 Estim Creat Clear Calc 190.8 Estimated GFR > 60 POC Glucose 160 H 119 H Random Glucose 215 H Calcium 9.0 Phosphorus 3.5 Magnesium 1.8 Albumin 3.0 L Triglycerides 197 H 09/04/23 09/04/23 07:22 11:11 Hold Purple Top Anion Gap Estim Creat Clear Calc Estimated GFR POC Glucose 154 H 164 H Random Glucose Calcium Phosphorus Magnesium Albumin Triglycerides Assessment and Plan (1) Status post small bowel resection: Status: Acute Assessment and Plan: d30 53yo wheelchair-bound M with Guillain-Oakridge syndrome, 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 Started clears 08/28/23. Surgery following- OK for sips of Ensure. If unable to advance diet would need CT with oral contrast - PICC placed 08/25/23. daily electrolyte checks for TPN - fever on 08/20/23 resolved, d/c'ed pip-yudy in absence of signs of infection [cultures negative] nocturnal hypoxia/mod-sev SHAVON - CPAP at night per Pulmonology. Upon discharge, will need sleep lab CPAP titration study. ANA - resolved after fluid resuscitation hx DVT/PE - held rivaroxaban; resume when OK with Surgery Guillain-Oakridge syndrome - stable; on monthly IVIG x5d and due now but would need premedication with prednisone, which would impair wound healing, so deferring for now VTE ppx - LMWH dispo - plan home with [facility] In my clinical judgment, the patient requires continued inpatient hospitalization for the following reasons: TPN, advancing diet Total time managing care of this patient today: 35 minutes. Quality Stroke Does the patient have a stroke diagnosis?: No VTE Prior VTE?: No VTE Risk Level:: Medical - moderate - high VTE Device Contraindication: Treatment Not Indicated VTE Drug Contraindication: N/A - Med Ordered
[2023-09-04 16:00] VITALS: BP 123/81; PULSE 108; RESP 20; TEMP 36.6; O2SAT 100
[2023-09-04 16:24] LABS: Glucose, Whole Blood 183 mg/dL (60-115)
[2023-09-04] MEDS: Prochlorperazine Edisylate 10 MG/2 ML VIAL IVPUSH (16:35)
[2023-09-04 20:00] VITALS: BP 121/81; PULSE 115; RESP 18; TEMP 37.2; O2SAT 100
[2023-09-04] MEDS: Parenteral Nutrition 2,040 ML 85 ML IV (20:38)
[2023-09-04 21:46] LABS: Glucose, Whole Blood 149 mg/dL (60-115)
[2023-09-05] VITALS (7 sets, daily range): BP systolic 104–124; BP diastolic 68–81; PULSE 104–116; RESP 16–20; TEMP 36.5–37.7; O2SAT 2–100
[2023-09-05] MEDS: Prochlorperazine Edisylate 10 MG/2 ML VIAL IVPUSH ×2 (00:08→19:36)
[2023-09-05] MEDS: 0.9 % Sodium Chloride Flush 3 ML SYRINGE IVFLUSH (00:11)
[2023-09-05 07:08] LABS: Glucose, Whole Blood 185 mg/dL (60-115)
[2023-09-05] MEDS: Lidocaine 4 % Patch ADH..PATCH 1 PATCH TRANSDERMA (08:23)
[2023-09-05] MEDS: Enoxaparin Sodium 40 MG/0.4 ML SYRINGE SUBCUT (08:23)
[2023-09-05] MEDS: Insulin Lispro 100 UNIT/ML 3 ML VIAL SUBCUT ×4 (08:23→21:14)
[2023-09-05] MEDS: 0.9 % Sodium Chloride Flush 10 ML SYRINGE 5 ML IVFLUSH ×3 (08:28→21:16)
--- NOTE | 2023-09-05 09:08 | HO.PM.IMPN ---
Subjective Subjective Date of Service: 09/05/23 Interval History: denies abd pain passing flatus Review of Systems Review of Systems: Yes all other systems are reviewed and are negative Physical Exam Vital Signs: Vital Signs: Last Vital Signs Temp 97.7 F 09/05/23 07:30 Pulse 108 H 09/05/23 07:30 Resp 18 09/05/23 07:30 BP 119/79 09/05/23 07:30 Pulse Ox 99 09/05/23 07:30 O2 Del Method Nasal Cannula 09/05/23 07:30 O2 Flow Rate 2 09/05/23 07:30 FiO2 70 08/11/23 13:00 BMI result Body Mass Index 42.7 Gen: in no acute distress HEENT: sclera anicteric, moist mucus membranes Neck: supple Lungs: clear to auscultation bilaterally Heart: regular rate and rhythm, no murmurs Abd: soft, non-tender, non-distended, morbidly obese Ext: no edema, LUE PICC Skin: warm/well-perfused Neuro: alert and oriented x3, no focal findings Psych: appropriate affect Objective Data Active Medications Bisacodyl (Bisacodyl 10 Mg Supp.Rect) 10 mg [place] DAILY PRN PRN Reason: Constipation Calcium Carbonate (Calcium Carbonate 750 Mg Tab.Chew) 750 mg PO Q6H PRN PRN Reason: Heartburn Last Admin: 08/14/23 22:28 Dose: 750 mg Documented By: RANDY Comments: given for c/o heartburn Docusate Sodium (Docusate Sodium 100 Mg Capsule) 100 mg PO BID PRN PRN Reason: Constipation Enoxaparin Sodium (Enoxaparin Sodium 40 Mg/0.4 Ml Syringe) 40 mg SUBCUT Q24H [facility] Last Admin: 09/05/23 08:23 Dose: 40 mg Documented By: AL Glucose (Glucose Gel 15 Gm Gel..Gram.) 15 gm PO Q15M PRN; Protocol PRN Reason: per Hypoglycemia Standing Ord. Dextrose (D10) 250 mls @ 750 mls/hr IV Q15M PRN PRN Reason: per Hypoglycemia Standing Ord. Nutrition (Parenteral) (Parenteral Nutrition) 2,040 mls @ 85 mls/hr IV .Q24H [facility]; Protocol Stop: 09/05/23 20:59 Last Admin: 09/04/23 20:38 Dose: 85 mls/hr Documented By: YADIRA Insulin Human Lispro (Insulin Lispro 100 Unit/Ml 3 Ml Vial) 0 unit SUBCUT QIDACHS [facility]; Protocol Last Admin: 09/05/23 08:23 Dose: 2 unit Documented By: AL Lidocaine (Lidocaine 4 % Patch Adh..Patch) 1 patch TRANSDERMA DAILY [facility]; Protocol Last Admin: 09/05/23 08:23 Dose: 1 patch Documented By: AL Pharmacy Consult (Consult Rx Parenteral Nutrition Ordering) 1 each MISCELLANE DAILY PRN PRN Reason: Consult order Prochlorperazine Edisylate (Prochlorperazine Edisylate 10 Mg/2 Ml Vial) 10 mg IVPUSH Q4H PRN PRN Reason: Nausea and Vomiting Last Admin: 09/05/23 00:08 Dose: 10 mg Documented By: DANIKADEM Sodium Chloride (0.9 % Sodium Chloride Flush 3 Ml Syringe) 3 ml IVFLUSH QSHIFT [facility] Last Admin: 09/05/23 08:28 Dose: Not Given Documented By: AL Non-Admin Reason: 5mL to PICC Sodium Chloride (Sodium Chloride 0.65 % Nasal 44 Ml Sprbtl) 1 spray NOSTRIL-B Q1H PRN PRN Reason: nasal dryness Sodium Chloride (0.9 % Sodium Chloride Flush 10 Ml Syringe) 5 ml IVFLUSH TID [facility] Last Admin: 09/05/23 08:28 Dose: 5 ml Documented By: AL Labs 08/26/23 06:47 09/04/23 05:44 Labs: Laboratory Results - last 24 hr 09/04/23 09/04/23 09/04/23 11:11 16:02 20:45 Hold Purple Top POC Glucose 164 H 183 H 149 H 09/05/23 09/05/23 05:57 07:01 Hold Purple Top SEE NOTE POC Glucose 185 H Assessment and Plan (1) Status post small bowel resection: Status: Acute Assessment and Plan: d31 53yo wheelchair-bound M with Guillain-Clinton syndrome, 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 daily electrolyte checks for TPN - NGT removed 08/27/23. Started clears 08/28/23. Surgery following- OK for sips of Ensure. If unable to advance diet would need CT with oral contrast nocturnal hypoxia/mod-sev SHAVON - CPAP at night per Pulmonology. Upon discharge, will need sleep lab CPAP titration study. ANA - resolved after fluid resuscitation hx DVT/PE - held rivaroxaban; resume when OK with Surgery Guillain-Clinton syndrome - stable; on monthly IVIG x5d and due now but would need premedication with prednisone, which would impair wound healing, so deferring for now VTE ppx - LMWH dispo - plan home with VNA In my clinical judgment, the patient requires continued inpatient hospitalization for the following reasons: TPN, advancing diet Total time managing care of this patient today: 35 minutes. Quality Stroke Does the patient have a stroke diagnosis?: No VTE Prior VTE?: No VTE Risk Level:: Medical - moderate - high VTE Device Contraindication: Treatment Not Indicated VTE Drug Contraindication: N/A - Med Ordered
--- NOTE | 2023-09-05 10:04 | PM.PNGS ---
Subjective Subjective Date of Service: 09/05/23 Interval history: Says he has been taking clear liquids Very small amount of emesis last night However, he says he continues to feel well Passing flatus Physical Exam Vital Signs: Vital Signs: Last Vital Signs Temp 97.7 F 09/05/23 07:30 Pulse 108 H 09/05/23 07:30 Resp 18 09/05/23 07:30 BP 119/79 09/05/23 07:30 Pulse Ox 99 09/05/23 07:30 O2 Del Method Nasal Cannula 09/05/23 07:30 O2 Flow Rate 2 09/05/23 07:30 FiO2 70 08/11/23 13:00 BMI result Body Mass Index 42.7 Const: Other: Looks well General: comfortable and no acute distress Resp: Effort & Inspection: normal respiratory effort Cardio: Rhythm: regular rhythm GI: Palpation (GI): Soft to palpation Objective Data Active Medications Bisacodyl (Bisacodyl 10 Mg Supp.Rect) 10 mg [place] DAILY PRN PRN Reason: Constipation Calcium Carbonate (Calcium Carbonate 750 Mg Tab.Chew) 750 mg PO Q6H PRN PRN Reason: Heartburn Last Admin: 08/14/23 22:28 Dose: 750 mg Documented By: RANDY Comments: given for c/o heartburn Docusate Sodium (Docusate Sodium 100 Mg Capsule) 100 mg PO BID PRN PRN Reason: Constipation Enoxaparin Sodium (Enoxaparin Sodium 40 Mg/0.4 Ml Syringe) 40 mg SUBCUT Q24H [facility] Last Admin: 09/05/23 08:23 Dose: 40 mg Documented By: AL Glucose (Glucose Gel 15 Gm Gel..Gram.) 15 gm PO Q15M PRN; Protocol PRN Reason: per Hypoglycemia Standing Ord. Dextrose (D10) 250 mls @ 750 mls/hr IV Q15M PRN PRN Reason: per Hypoglycemia Standing Ord. Nutrition (Parenteral) (Parenteral Nutrition) 2,040 mls @ 85 mls/hr IV .Q24H [facility]; Protocol Stop: 09/05/23 20:59 Last Admin: 09/04/23 20:38 Dose: 85 mls/hr Documented By: YADIRA Nutrition (Parenteral) (Parenteral Nutrition) 2,040 mls @ 85 mls/hr IV .Q24H [facility]; Protocol Stop: 09/06/23 20:59 Insulin Human Lispro (Insulin Lispro 100 Unit/Ml 3 Ml Vial) 0 unit SUBCUT QIDACHS [facility]; Protocol Last Admin: 09/05/23 08:23 Dose: 2 unit Documented By: AL Lidocaine (Lidocaine 4 % Patch Adh..Patch) 1 patch TRANSDERMA DAILY [facility]; Protocol Last Admin: 09/05/23 08:23 Dose: 1 patch Documented By: AL Pharmacy Consult (Consult Rx Parenteral Nutrition Ordering) 1 each MISCELLANE DAILY PRN PRN Reason: Consult order Prochlorperazine Edisylate (Prochlorperazine Edisylate 10 Mg/2 Ml Vial) 10 mg IVPUSH Q4H PRN PRN Reason: Nausea and Vomiting Last Admin: 09/05/23 00:08 Dose: 10 mg Documented By: HELADIO Sodium Chloride (0.9 % Sodium Chloride Flush 3 Ml Syringe) 3 ml IVFLUSH QSHIFT [facility] Last Admin: 09/05/23 08:28 Dose: Not Given Documented By: AL Non-Admin Reason: 5mL to PICC Sodium Chloride (Sodium Chloride 0.65 % Nasal 44 Ml Sprbtl) 1 spray NOSTRIL-B Q1H PRN PRN Reason: nasal dryness Sodium Chloride (0.9 % Sodium Chloride Flush 10 Ml Syringe) 5 ml IVFLUSH TID [facility] Last Admin: 09/05/23 08:28 Dose: 5 ml Documented By: AL Labs 08/26/23 06:47 09/04/23 05:44 Labs: Laboratory Results - last 24 hr 09/04/23 09/04/23 09/04/23 11:11 16:02 20:45 Hold Purple Top POC Glucose 164 H 183 H 149 H 09/05/23 09/05/23 05:57 07:01 Hold Purple Top SEE NOTE POC Glucose 185 H Procedures Date of Service Date of Service: 09/05/23 Progress Note: A&P Assessment and plan (1) Ischemic bowel disease: Status: Acute Assessment and Plan: Clinically doing well However, has had vomiting with regular food Plan to repeat CT scan with oral contrast this week TPN Patient comfortable with plan Time Spent With Patient Time: Total time managing care of this patient today ____ minutes. Quality Stroke Does the patient have a stroke diagnosis?: No VTE Prior VTE?: No VTE Risk Level:: Medical - moderate - high VTE Device Contraindication: Treatment Not Indicated VTE Drug Contraindication: N/A - Med Ordered
[2023-09-05 11:00] LABS: Glucose, Whole Blood 181 mg/dL (60-115)
[2023-09-05 11:51] LABS: Anion Gap 12 (12-20); Blood Urea Nitrogen 20 mg/dL (9-16); Calcium 8.9 mg/dL (8.4-10.2); Carbon Dioxide 24 mmol/L (22-29); Chloride 112 mmol/L (96-108); Creatinine Clr Calc Pharmacy 204.8; Estimated Glomerular Filt Rate > 60; Glucose Random 195 mg/dL (60-115); Magnesium 1.8 mg/dL (1.6-2.6); Phosphorus 3.3 mg/dL (2.7-4.5); Potassium 3.8 mmol/L (3.3-5.1); Sodium 144 mmol/L (135-145); Triglycerides 193 mg/dL (<150)
[2023-09-05 16:12] LABS: Glucose, Whole Blood 156 mg/dL (60-115)
[2023-09-05 20:31] LABS: Glucose, Whole Blood 172 mg/dL (60-115)
[2023-09-05] MEDS: Parenteral Nutrition 2,040 ML 85 ML IV (21:01)
[2023-09-06] MEDS: 0.9 % Sodium Chloride Flush 3 ML SYRINGE IVFLUSH ×2 (00:01→08:27)
[2023-09-06 03:31] VITALS: BP 102/76; PULSE 104; RESP 18; TEMP 37.7; O2SAT 98
[2023-09-06 06:00] VITALS: BMI 42.7
[2023-09-06 06:22] LABS: Magnesium 1.7 mg/dL (1.6-2.6); Phosphorus 3.5 mg/dL (2.7-4.5)
--- NOTE | 2023-09-06 07:15 | PC.RT ---
pt has been refusing to wear cpap at night. Therefore the machine will be pulled from room and MD will be notified.
[2023-09-06 07:22] VITALS: BP 121/76; PULSE 100; RESP 20; TEMP 36.7; O2SAT 98
[2023-09-06 07:23] LABS: Glucose, Whole Blood 326 mg/dL (60-115)
[2023-09-06] MEDS: Lidocaine 4 % Patch ADH..PATCH 1 PATCH TRANSDERMA (08:26)
[2023-09-06] MEDS: Insulin Lispro 100 UNIT/ML 3 ML VIAL SUBCUT ×2 (08:26→16:48)
[2023-09-06] MEDS: Enoxaparin Sodium 40 MG/0.4 ML SYRINGE SUBCUT (08:26)
[2023-09-06] MEDS: 0.9 % Sodium Chloride Flush 10 ML SYRINGE 5 ML IVFLUSH ×3 (08:32→22:29)
--- NOTE | 2023-09-06 09:53 | HO.PM.IMPN ---
Subjective Subjective Date of Service: 09/06/23 Interval History: passing gas denies abd pain/N/V drinking saud aníbal but not clear Ensures states he is indeed hungry Review of Systems Review of Systems: Yes all other systems are reviewed and are negative Physical Exam Vital Signs: Vital Signs: Last Vital Signs Temp 98.1 F 09/06/23 07:22 Pulse 100 09/06/23 07:22 Resp 20 09/06/23 07:22 BP 121/76 09/06/23 07:22 Pulse Ox 98 09/06/23 07:22 O2 Del Method Nasal Cannula 09/06/23 07:22 O2 Flow Rate 2 09/06/23 07:22 FiO2 70 08/11/23 13:00 BMI result Body Mass Index 42.7 Gen: in no acute distress HEENT: sclera anicteric, moist mucus membranes Neck: supple Lungs: clear to auscultation bilaterally Heart: regular rate and rhythm, no murmurs Abd: soft, non-tender, non-distended, morbidly obese Ext: no edema, LUE PICC Skin: warm/well-perfused Neuro: alert and oriented x3, no focal findings Psych: appropriate affect Objective Data Active Medications Bisacodyl (Bisacodyl 10 Mg Supp.Rect) 10 mg [place] DAILY PRN PRN Reason: Constipation Calcium Carbonate (Calcium Carbonate 750 Mg Tab.Chew) 750 mg PO Q6H PRN PRN Reason: Heartburn Last Admin: 08/14/23 22:28 Dose: 750 mg Documented By: RANDY Comments: given for c/o heartburn Docusate Sodium (Docusate Sodium 100 Mg Capsule) 100 mg PO BID PRN PRN Reason: Constipation Enoxaparin Sodium (Enoxaparin Sodium 40 Mg/0.4 Ml Syringe) 40 mg SUBCUT Q24H [facility] Last Admin: 09/06/23 08:26 Dose: 40 mg Documented By: KRISTINA Glucose (Glucose Gel 15 Gm Gel..Gram.) 15 gm PO Q15M PRN; Protocol PRN Reason: per Hypoglycemia Standing Ord. Dextrose (D10) 250 mls @ 750 mls/hr IV Q15M PRN PRN Reason: per Hypoglycemia Standing Ord. Nutrition (Parenteral) (Parenteral Nutrition) 2,040 mls @ 85 mls/hr IV .Q24H [facility]; Protocol Stop: 09/06/23 20:59 Last Admin: 09/05/23 21:01 Dose: 85 mls/hr Documented By: YADIRA Insulin Human Lispro (Insulin Lispro 100 Unit/Ml 3 Ml Vial) 0 unit SUBCUT QIDACHS [facility]; Protocol Last Admin: 09/06/23 08:26 Dose: 8 unit Documented By: KRISTINA Lidocaine (Lidocaine 4 % Patch Adh..Patch) 1 patch TRANSDERMA DAILY [facility]; Protocol Last Admin: 09/06/23 08:26 Dose: 1 patch Documented By: KRISTINA Pharmacy Consult (Consult Rx Parenteral Nutrition Ordering) 1 each MISCELLANE DAILY PRN PRN Reason: Consult order Prochlorperazine Edisylate (Prochlorperazine Edisylate 10 Mg/2 Ml Vial) 10 mg IVPUSH Q4H PRN PRN Reason: Nausea and Vomiting Last Admin: 09/05/23 19:36 Dose: 10 mg Documented By: YADIRA Sodium Chloride (0.9 % Sodium Chloride Flush 3 Ml Syringe) 3 ml IVFLUSH QSHIFT [facility] Last Admin: 09/06/23 08:27 Dose: 3 ml Documented By: KRISTINA Sodium Chloride (Sodium Chloride 0.65 % Nasal 44 Ml Sprbtl) 1 spray NOSTRIL-B Q1H PRN PRN Reason: nasal dryness Sodium Chloride (0.9 % Sodium Chloride Flush 10 Ml Syringe) 5 ml IVFLUSH TID [facility] Last Admin: 09/06/23 08:32 Dose: 5 ml Documented By: KRISTINA Labs 08/26/23 06:47 09/05/23 05:57 Labs: Laboratory Results - last 24 hr 09/05/23 09/05/23 09/05/23 05:57 10:55 16:07 Hold Purple Top Anion Gap 12 Estim Creat Clear Calc 204.8 Estimated GFR > 60 POC Glucose 181 H 156 H Random Glucose 195 H Calcium 8.9 Phosphorus 3.3 Magnesium 1.8 Albumin 3.0 L Triglycerides 193 H 09/05/23 09/06/23 09/06/23 20:12 05:30 07:14 Hold Purple Top SEE NOTE Anion Gap Estim Creat Clear Calc Estimated GFR POC Glucose 172 H 326 H Random Glucose Calcium Phosphorus 3.5 Magnesium 1.7 Albumin Triglycerides Assessment and Plan (1) Status post small bowel resection: Status: Acute Assessment and Plan: d32 53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 daily electrolyte checks for TPN - NGT removed 08/27/23. Started clears 08/28/23. Surgery following- OK for clear diet. CT with oral contrast today to see if can safely advance diet. nocturnal hypoxia/mod-sev SHAVON - CPAP at night per Pulmonology. Upon discharge, will need sleep lab CPAP titration study. ANA - resolved after fluid resuscitation hx DVT/PE - held rivaroxaban; resume when OK with Surgery Guillain-[place] syndrome - stable; on monthly IVIG x5d and due now but would need premedication with prednisone, which would impair wound healing, so deferring for now VTE ppx - LMWH dispo - plan home with VNA In my clinical judgment, the patient requires continued inpatient hospitalization for the following reasons: TPN, advancing diet Total time managing care of this patient today: 35 minutes. Quality Stroke Does the patient have a stroke diagnosis?: No VTE Prior VTE?: No VTE Risk Level:: Medical - moderate - high VTE Device Contraindication: Treatment Not Indicated VTE Drug Contraindication: N/A - Med Ordered
--- NOTE | 2023-09-06 09:55 | MHC.CLN ---
F/U DIET RX: C/L PT RECEIVING ENSURE CLEAR TID PROVIDES 720KCALS, 24G PROTEIN WITH 100% ACCEPTANCE PT ONLY TAKING ICE CHIPS OVER WEEKEND REVIEWED LABS-NOTED TRIGS REMAINS ELEVATED DISCUSSED WITH PHARMACY CONTINUE TPN AT MAX GOAL RATE 85ML/HR WITH 86G LIPIDS PROVIDES 2308 TOTAL KCALS (30KCALS/KG BASED ON CMW) , 102G PROTEIN (1.3G/KG), 306G DEXTROSE TPN WILL PROMOTE WOUND HEALING (STAGE 2 R BUTTOCKS) REPLETE LYTES NEEDED MONITOR PO INTAKE CLOSELY AND ENCOURAGE SUPPLEMENTS
[2023-09-06] MEDS: Prochlorperazine Edisylate 10 MG/2 ML VIAL IVPUSH (10:26)
[2023-09-06 10:57] VITALS: BP 98/69; PULSE 106; RESP 20; TEMP 36.8; O2SAT 98
[2023-09-06 11:07] LABS: Glucose, Whole Blood 133 mg/dL (60-115)
--- NOTE | 2023-09-06 12:26 | MHC.CM.PN ---
EMR REVIEWED, PT REMAINS ON CLEAR LIQUIDS AND TPN, NO PLAN FOR DC AT THIS TIME, ANTIC PT WILL DC HOME W/HVNA ONCE MEDICALLY CLEARED, ANTIC 1-2 MORE DAYS, HVNA UPDATED AND CM WILL CONT TO FOLLOW DC NEEDS.
--- NOTE | 2023-09-06 13:16 | PM.PNGS ---
Subjective Subjective Date of Service: 09/07/23 Interval history: Seen earlier this morning Says he is comfortable Passing flatus Denies abdominal pain Drinking oral contrast Physical Exam Vital Signs: Vital Signs: Last Vital Signs Temp 98.3 F 09/06/23 10:57 Pulse 106 H 09/06/23 10:57 Resp 20 09/06/23 10:57 BP 98/69 09/06/23 10:57 Pulse Ox 98 09/06/23 10:57 O2 Del Method Nasal Cannula 09/06/23 10:57 O2 Flow Rate 2 09/06/23 10:57 FiO2 70 08/11/23 13:00 BMI result Body Mass Index 42.7 Const: General: comfortable and no acute distress Resp: Effort & Inspection: normal respiratory effort GI: Palpation (GI): Soft to palpation and nontender Objective Data Active Medications Bisacodyl (Bisacodyl 10 Mg Supp.Rect) 10 mg [place] DAILY PRN PRN Reason: Constipation Calcium Carbonate (Calcium Carbonate 750 Mg Tab.Chew) 750 mg PO Q6H PRN PRN Reason: Heartburn Last Admin: 08/14/23 22:28 Dose: 750 mg Documented By: RANDY Comments: given for c/o heartburn Docusate Sodium (Docusate Sodium 100 Mg Capsule) 100 mg PO BID PRN PRN Reason: Constipation Enoxaparin Sodium (Enoxaparin Sodium 40 Mg/0.4 Ml Syringe) 40 mg SUBCUT Q24H [facility] Last Admin: 09/06/23 08:26 Dose: 40 mg Documented By: KRISTINA Glucose (Glucose Gel 15 Gm Gel..Gram.) 15 gm PO Q15M PRN; Protocol PRN Reason: per Hypoglycemia Standing Ord. Dextrose (D10) 250 mls @ 750 mls/hr IV Q15M PRN PRN Reason: per Hypoglycemia Standing Ord. Nutrition (Parenteral) (Parenteral Nutrition) 2,040 mls @ 85 mls/hr IV .Q24H [facility]; Protocol Stop: 09/06/23 20:59 Last Admin: 09/05/23 21:01 Dose: 85 mls/hr Documented By: YADIRA Nutrition (Parenteral) (Parenteral Nutrition) 2,040 mls @ 85 mls/hr IV .Q24H [facility]; Protocol Stop: 09/07/23 20:59 Insulin Human Lispro (Insulin Lispro 100 Unit/Ml 3 Ml Vial) 0 unit SUBCUT QIDACHS [facility]; Protocol Last Admin: 09/06/23 11:37 Dose: Not Given Documented By: KRISTINA Non-Admin Reason: No Insulin Coverage Lidocaine (Lidocaine 4 % Patch Adh..Patch) 1 patch TRANSDERMA DAILY [facility]; Protocol Last Admin: 09/06/23 08:26 Dose: 1 patch Documented By: KRISTINA Prochlorperazine Edisylate (Prochlorperazine Edisylate 10 Mg/2 Ml Vial) 10 mg IVPUSH Q4H PRN PRN Reason: Nausea and Vomiting Last Admin: 09/06/23 10:26 Dose: 10 mg Documented By: KRISTINA Sodium Chloride (0.9 % Sodium Chloride Flush 3 Ml Syringe) 3 ml IVFLUSH QSHIFT [facility] Last Admin: 09/06/23 08:27 Dose: 3 ml Documented By: KRISTINA Sodium Chloride (Sodium Chloride 0.65 % Nasal 44 Ml Sprbtl) 1 spray NOSTRIL-B Q1H PRN PRN Reason: nasal dryness Sodium Chloride (0.9 % Sodium Chloride Flush 10 Ml Syringe) 5 ml IVFLUSH TID [facility] Last Admin: 09/06/23 08:32 Dose: 5 ml Documented By: KRISTINA Labs 08/26/23 06:47 09/07/23 05:51 Labs: Laboratory Results - last 24 hr 09/05/23 09/05/23 09/06/23 16:07 20:12 05:30 Hold Purple Top SEE NOTE POC Glucose 156 H 172 H Phosphorus 3.5 Magnesium 1.7 09/06/23 09/06/23 07:14 11:02 Hold Purple Top POC Glucose 326 H 133 H Phosphorus Magnesium Procedures Date of Service Date of Service: 09/07/23 Progress Note: A&P Assessment and plan (1) Status post small bowel resection: Status: Acute Assessment and Plan: Looks well No vomiting or nausea Abdomen soft Passing flatus CT scan scheduled today view of recurrent vomiting with regular diet Otherwise clinically well Time Spent With Patient Time: Total time managing care of this patient today ____ minutes. Quality Stroke Does the patient have a stroke diagnosis?: No VTE Prior VTE?: No VTE Risk Level:: Medical - moderate - high VTE Device Contraindication: Treatment Not Indicated VTE Drug Contraindication: N/A - Med Ordered
[2023-09-06] MEDS: Barium Sulfate Oral (Mocha) 450 ML ORAL.SUSP 900 ML PO (13:27)
--- NOTE | 2023-09-06 15:16 | PM.EVENT ---
Event Note Date of Service: 09/06/23 Event Note: Seen on afternoon Denies abdominal pain Says he is comfortable Abdomen soft CT scan done - oral contrast seems diluted, diffusely dilated small bowel Await official report TPN Time Spent With Patient Time: Total time managing care of this patient today ____ minutes.
[2023-09-06 16:00] VITALS: BP 118/80; PULSE 119; RESP 12; TEMP 37.3; O2SAT 93
[2023-09-06 16:42] LABS: Glucose, Whole Blood 174 mg/dL (60-115)
[2023-09-06 20:00] VITALS: BP 122/80; PULSE 110; RESP 20; TEMP 37.7; O2SAT 97
[2023-09-06 21:12] LABS: Glucose, Whole Blood 138 mg/dL (60-115)
[2023-09-06] MEDS: Parenteral Nutrition 2,040 ML 85 ML IV (22:28)
--- NOTE | 2023-09-06 23:27 | HO.SKINPHOTO ---
Location: left great toe Category: ulcer Stage: Length: Width: Depth: cm Location: Category: Stage: Length: Width: Depth: cm Location: Category: Stage: Length: Width: Depth: cm Location: Category: Stage: Length: Width: Depth: cm Location: Category: Stage: Length: Width: Depth: cm Location: Category: Stage: Length: Width: Depth: cm
--- NOTE | 2023-09-06 23:30 | PC.NURSE ---
Patient transferred from [facility]. Upon assessment found ulcerative area on left great toe. Photo taken and wound care consult ordered. Area cleaned with wound spray, dried with a gauze, silver alginate applied followed by soft foam. Both feet washed, Vaseline applied due to a very dry skin. Skin powell, also patient has a healing pressure injury to to right buttock, area was covered with Triad upon arrival. 3 scabs to nose, 2 more on top and one no side of right nostril. Patient said it is from previous NGT.
[2023-09-06 23:51] VITALS: BP 118/74; PULSE 111; RESP 16; TEMP 36.9; O2SAT 97
[2023-09-07] VITALS (7 sets, daily range): BP systolic 116–135; BP diastolic 59–83; PULSE 100–110; RESP 16–20; TEMP 36–37.4; O2SAT 95–100; BMI 42.7
[2023-09-07 06:18] LABS: Anion Gap 12 (12-20); Blood Urea Nitrogen 18 mg/dL (9-16); Calcium 9.1 mg/dL (8.4-10.2); Carbon Dioxide 24 mmol/L (22-29); Chloride 110 mmol/L (96-108); Creatinine Clr Calc Pharmacy 207.9; Estimated Glomerular Filt Rate > 60; Glucose Random 165 mg/dL (60-115); Phosphorus 3.4 mg/dL (2.7-4.5); Potassium 3.7 mmol/L (3.3-5.1); Sodium 142 mmol/L (135-145)
[2023-09-07 06:20] LABS: Magnesium 1.7 mg/dL (1.6-2.6); Triglycerides 197 mg/dL (<150)
[2023-09-07 07:33] LABS: Glucose, Whole Blood 184 mg/dL (60-115)
[2023-09-07] MEDS: Lidocaine 4 % Patch ADH..PATCH 1 PATCH TRANSDERMA (08:30)
[2023-09-07] MEDS: Insulin Lispro 100 UNIT/ML 3 ML VIAL SUBCUT ×4 (08:30→21:09)
[2023-09-07] MEDS: 0.9 % Sodium Chloride Flush 10 ML SYRINGE 5 ML IVFLUSH ×2 (08:31→21:18)
[2023-09-07] MEDS: Enoxaparin Sodium 40 MG/0.4 ML SYRINGE SUBCUT (08:31)
--- NOTE | 2023-09-07 10:42 | MHC.CLN ---
F/U NOTED 75% X1 MEAL CLEAR LIQUID CONSUMED DIET RX: C/L PT RECEIVING ENSURE CLEAR TID PROVIDES 720KCALS, 24G PROTEIN WITH 100% ACCEPTANCE REVIEWED LABS CONTINUE TPN AT MAX GOAL RATE 85ML/HR WITH 86G LIPIDS PROVIDES 2308 TOTAL KCALS (30KCALS/KG BASED ON CMW) , 102G PROTEIN (1.3G/KG), 306G DEXTROSE TPN WILL PROMOTE WOUND HEALING (STAGE 2 R BUTTOCKS) REPLETE LYTES NEEDED MONITOR PO INTAKE CLOSELY AND ENCOURAGE SUPPLEMENTS
[2023-09-07 11:05] LABS: Glucose, Whole Blood 155 mg/dL (60-115)
--- NOTE | 2023-09-07 11:12 | P.PNIM_ITS ---
Subjective Subjective Date of Service: 09/07/23 Interval History: tolerating clears no abd pain some flatus Review of Systems Review of Systems: Yes all other systems are reviewed and are negative Physical Exam 2 Vital Signs: Vital Signs: Last Vital Signs Temp 96.8 F 09/07/23 07:28 Pulse 104 H 09/07/23 07:28 Resp 20 09/07/23 07:28 BP 116/81 09/07/23 07:28 Pulse Ox 97 09/07/23 07:28 O2 Del Method Nasal Cannula 09/07/23 07:28 O2 Flow Rate 2 09/07/23 07:28 FiO2 70 08/11/23 13:00 BMI result Body Mass Index 42.7 Gen: in no acute distress HEENT: sclera anicteric, moist mucus membranes Neck: supple Lungs: clear to auscultation bilaterally Heart: regular rate and rhythm, no murmurs Abd: soft, non-tender, non-distended, morbidly obese Ext: no edema, LUE PICC Skin: warm/well-perfused Neuro: alert and oriented x3, no focal findings Psych: appropriate affect Objective Data Active Medications Bisacodyl (Bisacodyl 10 Mg Supp.Rect) 10 mg [place] DAILY PRN PRN Reason: Constipation Calcium Carbonate (Calcium Carbonate 750 Mg Tab.Chew) 750 mg PO Q6H PRN PRN Reason: Heartburn Last Admin: 08/14/23 22:28 Dose: 750 mg Documented By: RANDY Comments: given for c/o heartburn Docusate Sodium (Docusate Sodium 100 Mg Capsule) 100 mg PO BID PRN PRN Reason: Constipation Enoxaparin Sodium (Enoxaparin Sodium 40 Mg/0.4 Ml Syringe) 40 mg SUBCUT Q24H [facility] Last Admin: 09/07/23 08:31 Dose: 40 mg Documented By: MARILUZ Glucose (Glucose Gel 15 Gm Gel..Gram.) 15 gm PO Q15M PRN; Protocol PRN Reason: per Hypoglycemia Standing Ord. Dextrose (D10) 250 mls @ 750 mls/hr IV Q15M PRN PRN Reason: per Hypoglycemia Standing Ord. Nutrition (Parenteral) (Parenteral Nutrition) 2,040 mls @ 85 mls/hr IV .Q24H [facility]; Protocol Stop: 09/07/23 20:59 Last Admin: 09/06/23 22:28 Dose: 85 mls/hr Documented By: ИВАН Insulin Human Lispro (Insulin Lispro 100 Unit/Ml 3 Ml Vial) 0 unit SUBCUT QIDACHS [facility]; Protocol Last Admin: 09/07/23 08:30 Dose: 2 unit Documented By: MARILUZ Lidocaine (Lidocaine 4 % Patch Adh..Patch) 1 patch TRANSDERMA DAILY [facility]; Protocol Last Admin: 09/07/23 08:30 Dose: 1 patch Documented By: MARILUZ Prochlorperazine Edisylate (Prochlorperazine Edisylate 10 Mg/2 Ml Vial) 10 mg IVPUSH Q4H PRN PRN Reason: Nausea and Vomiting Last Admin: 09/06/23 10:26 Dose: 10 mg Documented By: KRISTINA Sodium Chloride (0.9 % Sodium Chloride Flush 3 Ml Syringe) 3 ml IVFLUSH QSHIFT [facility] Last Admin: 09/07/23 08:43 Dose: Not Given Documented By: MARILUZ Non-Admin Reason: Given as 5mL in PICC. Sodium Chloride (Sodium Chloride 0.65 % Nasal 44 Ml Sprbtl) 1 spray NOSTRIL-B Q1H PRN PRN Reason: nasal dryness Sodium Chloride (0.9 % Sodium Chloride Flush 10 Ml Syringe) 5 ml IVFLUSH TID [facility] Last Admin: 09/07/23 08:31 Dose: 5 ml Documented By: MARILUZ Labs 08/26/23 06:47 09/07/23 05:51 Labs: Laboratory Results - last 24 hr 09/06/23 09/06/23 09/07/23 16:36 21:09 05:51 Hold Purple Top SEE NOTE Anion Gap 12 Estim Creat Clear Calc 207.9 Estimated GFR > 60 POC Glucose 174 H 138 H Random Glucose 165 H Calcium 9.1 Phosphorus 3.4 Magnesium 1.7 Triglycerides 197 H 09/07/23 09/07/23 07:27 10:58 Hold Purple Top Anion Gap Estim Creat Clear Calc Estimated GFR POC Glucose 184 H 155 H Random Glucose Calcium Phosphorus Magnesium Triglycerides Assessment and Plan (1) Status post small bowel resection: Status: Acute Assessment and Plan: d33 53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 daily electrolyte checks for TPN - NGT removed 08/27/23. Started clears 08/28/23. Surgery following- OK for clear diet. Surgery to review CT findings from yesterday and further guide plan nocturnal hypoxia/mod-sev SHAVON - CPAP at night per Pulmonology. Upon discharge, will need sleep lab CPAP titration study. ANA - resolved after fluid resuscitation hx DVT/PE - held rivaroxaban; resume when OK with Surgery Guillain-[place] syndrome - stable; on monthly IVIG x5d and due now but would need premedication with prednisone, which would impair wound healing, so deferring for now VTE ppx - LMWH dispo - plan home with VNA In my clinical judgment, the patient requires continued inpatient hospitalization for the following reasons: TPN, advancing diet Total time managing care of this patient today: 35 minutes. Quality Stroke Does the patient have a stroke diagnosis?: No VTE Prior VTE?: No VTE Risk Level:: Medical - moderate - high VTE Device Contraindication: Treatment Not Indicated VTE Drug Contraindication: N/A - Med Ordered
--- NOTE | 2023-09-07 11:53 | PM.PNGS ---
Subjective Subjective Date of Service: 09/08/23 Interval history: says he remains comfortable no vomitting passing flatus says he has been drinking a lot of saud aníbal without issues Physical Exam Vital Signs: Vital Signs: Last Vital Signs Temp 97.6 F 09/07/23 11:36 Pulse 106 H 09/07/23 11:36 Resp 20 09/07/23 11:36 BP 133/72 09/07/23 11:36 Pulse Ox 95 09/07/23 11:36 O2 Del Method Room Air 09/07/23 11:36 O2 Flow Rate 2 09/07/23 07:28 FiO2 70 08/11/23 13:00 BMI result Body Mass Index 42.7 Const: General: comfortable and no acute distress Resp: Effort & Inspection: normal respiratory effort Cardio: Rate: regular rate GI: Palpation (GI): Soft to palpation Objective Data Active Medications Bisacodyl (Bisacodyl 10 Mg Supp.Rect) 10 mg [place] DAILY PRN PRN Reason: Constipation Calcium Carbonate (Calcium Carbonate 750 Mg Tab.Chew) 750 mg PO Q6H PRN PRN Reason: Heartburn Last Admin: 08/14/23 22:28 Dose: 750 mg Documented By: RANDY Comments: given for c/o heartburn Docusate Sodium (Docusate Sodium 100 Mg Capsule) 100 mg PO BID PRN PRN Reason: Constipation Enoxaparin Sodium (Enoxaparin Sodium 40 Mg/0.4 Ml Syringe) 40 mg SUBCUT Q24H [facility] Last Admin: 09/07/23 08:31 Dose: 40 mg Documented By: MARILUZ Glucose (Glucose Gel 15 Gm Gel..Gram.) 15 gm PO Q15M PRN; Protocol PRN Reason: per Hypoglycemia Standing Ord. Dextrose (D10) 250 mls @ 750 mls/hr IV Q15M PRN PRN Reason: per Hypoglycemia Standing Ord. Nutrition (Parenteral) (Parenteral Nutrition) 2,040 mls @ 85 mls/hr IV .Q24H [facility]; Protocol Stop: 09/07/23 20:59 Last Admin: 09/06/23 22:28 Dose: 85 mls/hr Documented By: ИВАН Nutrition (Parenteral) (Parenteral Nutrition) 2,040 mls @ 85 mls/hr IV .Q24H [facility]; Protocol Stop: 09/08/23 20:59 Insulin Human Lispro (Insulin Lispro 100 Unit/Ml 3 Ml Vial) 0 unit SUBCUT QIDACHS [facility]; Protocol Last Admin: 09/07/23 11:33 Dose: 2 unit Documented By: GARRY Lidocaine (Lidocaine 4 % Patch Adh..Patch) 1 patch TRANSDERMA DAILY [facility]; Protocol Last Admin: 09/07/23 08:30 Dose: 1 patch Documented By: MARILUZ Prochlorperazine Edisylate (Prochlorperazine Edisylate 10 Mg/2 Ml Vial) 10 mg IVPUSH Q4H PRN PRN Reason: Nausea and Vomiting Last Admin: 09/06/23 10:26 Dose: 10 mg Documented By: KRISTINA Sodium Chloride (0.9 % Sodium Chloride Flush 3 Ml Syringe) 3 ml IVFLUSH QSHIFT [facility] Last Admin: 09/07/23 08:43 Dose: Not Given Documented By: MARILUZ Non-Admin Reason: Given as 5mL in PICC. Sodium Chloride (Sodium Chloride 0.65 % Nasal 44 Ml Sprbtl) 1 spray NOSTRIL-B Q1H PRN PRN Reason: nasal dryness Sodium Chloride (0.9 % Sodium Chloride Flush 10 Ml Syringe) 5 ml IVFLUSH TID [facility] Last Admin: 09/07/23 08:31 Dose: 5 ml Documented By: MARILUZ Labs 08/26/23 06:47 09/08/23 07:01 Labs: Laboratory Results - last 24 hr 09/06/23 09/06/23 09/07/23 16:36 21:09 05:51 Hold Purple Top SEE NOTE Anion Gap 12 Estim Creat Clear Calc 207.9 Estimated GFR > 60 POC Glucose 174 H 138 H Random Glucose 165 H Calcium 9.1 Phosphorus 3.4 Magnesium 1.7 Triglycerides 197 H 09/07/23 09/07/23 07:27 10:58 Hold Purple Top Anion Gap Estim Creat Clear Calc Estimated GFR POC Glucose 184 H 155 H Random Glucose Calcium Phosphorus Magnesium Triglycerides Procedures Date of Service Date of Service: 09/08/23 Progress Note: A&P Assessment and plan (1) Ischemic bowel disease: Status: Acute Assessment and Plan: He remains stable Abdominal exam benign Continues to pass flatus and BMs I have reviewed his CAT scan -diffuse small bowel dilatation and likely narrowing and the anastomosis from previous ischemia Contrast however flowing through Explained above findings to him He wants to avoid any further surgeries as much as possible Would have high threshold for exploring as has multiple medical problems, difficult anatomy and is currently benign and has been tolerating liquids We will continue to try to see if he can tolerate adequate nutrition including Ensure TPN for now Time Spent With Patient Time: Total time managing care of this patient today ____ minutes. Quality Stroke Does the patient have a stroke diagnosis?: No VTE Prior VTE?: No VTE Risk Level:: Medical - moderate - high VTE Device Contraindication: Treatment Not Indicated VTE Drug Contraindication: N/A - Med Ordered
[2023-09-07 17:18] LABS: Glucose, Whole Blood 162 mg/dL (60-115)
[2023-09-07 20:20] LABS: Glucose, Whole Blood 157 mg/dL (60-115)
[2023-09-07] MEDS: Parenteral Nutrition 2,040 ML 85 ML IV (21:11)
[2023-09-08 03:48] VITALS: BP 117/82; PULSE 102; RESP 16; TEMP 37.3; O2SAT 98
[2023-09-08 06:00] VITALS: BMI 41.6
[2023-09-08 07:51] LABS: Anion Gap 13 (12-20); Blood Urea Nitrogen 19 mg/dL (9-16); Calcium 8.5 mg/dL (8.4-10.2); Carbon Dioxide 24 mmol/L (22-29); Chloride 107 mmol/L (96-108); Creatinine Clr Calc Pharmacy 221.5; Estimated Glomerular Filt Rate > 60; Glucose Random 151 mg/dL (60-115); Phosphorus 3.5 mg/dL (2.7-4.5); Potassium 3.9 mmol/L (3.3-5.1); Sodium 140 mmol/L (135-145)
[2023-09-08 07:53] LABS: Magnesium 1.9 mg/dL (1.6-2.6); Triglycerides 168 mg/dL (<150)
[2023-09-08 07:56] LABS: Glucose, Whole Blood 148 mg/dL (60-115)
--- NOTE | 2023-09-08 07:59 | P.PNGS_ITS ---
Subjective Subjective Date of Service: 09/09/23 Interval history: continues to feel well passing flatus and BMs has been toelrating clear liquids denies abdl pain Physical Exam 2 Vital Signs: Vital Signs: Last Vital Signs Temp 99.2 F 09/08/23 03:48 Pulse 102 H 09/08/23 03:48 Resp 16 09/08/23 03:48 BP 117/82 09/08/23 03:48 Pulse Ox 98 09/08/23 03:48 O2 Del Method Nasal Cannula 09/08/23 03:48 O2 Flow Rate 2 09/08/23 03:48 FiO2 70 08/11/23 13:00 BMI result Body Mass Index 41.6 Const: General: comfortable and no acute distress Resp: Effort & Inspection: normal respiratory effort GI: Palpation (GI): Soft to palpation, not firm, nontender and no guarding Objective Data Active Medications Bisacodyl (Bisacodyl 10 Mg Supp.Rect) 10 mg [place] DAILY PRN PRN Reason: Constipation Calcium Carbonate (Calcium Carbonate 750 Mg Tab.Chew) 750 mg PO Q6H PRN PRN Reason: Heartburn Last Admin: 08/14/23 22:28 Dose: 750 mg Documented By: RANDY Comments: given for c/o heartburn Docusate Sodium (Docusate Sodium 100 Mg Capsule) 100 mg PO BID PRN PRN Reason: Constipation Glucose (Glucose Gel 15 Gm Gel..Gram.) 15 gm PO Q15M PRN; Protocol PRN Reason: per Hypoglycemia Standing Ord. Dextrose (D10) 250 mls @ 750 mls/hr IV Q15M PRN PRN Reason: per Hypoglycemia Standing Ord. Nutrition (Parenteral) (Parenteral Nutrition) 2,040 mls @ 85 mls/hr IV .Q24H [facility]; Protocol Stop: 09/08/23 20:59 Last Admin: 09/07/23 21:11 Dose: 85 mls/hr Documented By: MARILUZ Insulin Human Lispro (Insulin Lispro 100 Unit/Ml 3 Ml Vial) 0 unit SUBCUT QIDACHS [facility]; Protocol Last Admin: 09/08/23 07:57 Dose: Not Given Documented By: SALVADOR Non-Admin Reason: No Insulin Coverage Lidocaine (Lidocaine 4 % Patch Adh..Patch) 1 patch TRANSDERMA DAILY [facility]; Protocol Last Admin: 09/07/23 08:30 Dose: 1 patch Documented By: MARILUZ Prochlorperazine Edisylate (Prochlorperazine Edisylate 10 Mg/2 Ml Vial) 10 mg IVPUSH Q4H PRN PRN Reason: Nausea and Vomiting Last Admin: 09/06/23 10:26 Dose: 10 mg Documented By: KRISTINA Rivaroxaban (Rivaroxaban 20 Mg Tablet) 20 mg PO DAILY [facility] Sodium Chloride (0.9 % Sodium Chloride Flush 3 Ml Syringe) 3 ml IVFLUSH QSHIFT [facility] Last Admin: 09/08/23 07:58 Dose: Not Given Documented By: SALVADOR Non-Admin Reason: IV Running Sodium Chloride (Sodium Chloride 0.65 % Nasal 44 Ml Sprbtl) 1 spray NOSTRIL-B Q1H PRN PRN Reason: nasal dryness Sodium Chloride (0.9 % Sodium Chloride Flush 10 Ml Syringe) 5 ml IVFLUSH TID [facility] Last Admin: 09/07/23 21:18 Dose: 5 ml Documented By: MARILUZ Labs 08/26/23 06:47 09/09/23 05:15 Labs: Laboratory Results - last 24 hr 09/07/23 09/07/23 09/07/23 10:58 17:14 20:15 Hold Purple Top Anion Gap Estim Creat Clear Calc Estimated GFR POC Glucose 155 H 162 H 157 H Random Glucose Calcium Phosphorus Magnesium Triglycerides Hold Yellow Top 09/08/23 09/08/23 07:01 07:28 Hold Purple Top SEE NOTE Anion Gap 13 Estim Creat Clear Calc 221.5 Estimated GFR > 60 POC Glucose 148 H Random Glucose 151 H Calcium 8.5 D Phosphorus 3.5 Magnesium 1.9 Triglycerides 168 H Hold Yellow Top See Note Procedures Date of Service Date of Service: 09/09/23 Progress Note: A&P Assessment and plan (1) Ischemic bowel disease: Status: Acute Assessment and Plan: CT suggests narrowing at anastomosis - pt at risk for this due to small bowel ischemia tolerating clears had vomitted last week with advancement to regular diet ok to take Ensure continue TPN hope to eventually wean off TPN ok to restart Xarelto Time Spent With Patient Time: Total time managing care of this patient today ____ minutes. Quality Stroke Does the patient have a stroke diagnosis?: No VTE Prior VTE?: No VTE Risk Level:: Medical - moderate - high VTE Device Contraindication: Treatment Not Indicated VTE Drug Contraindication: N/A - Med Ordered
[2023-09-08 08:00] VITALS: BP 102/68; PULSE 105; RESP 18; TEMP 36.7; O2SAT 98
[2023-09-08] MEDS: Rivaroxaban 20 MG TABLET PO (08:19)
[2023-09-08] MEDS: Lidocaine 4 % Patch ADH..PATCH 1 PATCH TRANSDERMA (08:19)
--- NOTE | 2023-09-08 10:41 | P.PNIM_ITS ---
Subjective Subjective Date of Service: 09/08/23 Interval History: no abd pain; passing flatus Review of Systems Review of Systems: Yes all other systems are reviewed and are negative Physical Exam 2 Vital Signs: Vital Signs: Last Vital Signs Temp 98.1 F 09/08/23 08:00 Pulse 105 H 09/08/23 08:00 Resp 18 09/08/23 08:00 BP 102/68 09/08/23 08:00 Pulse Ox 98 09/08/23 08:00 O2 Del Method Room Air 09/08/23 08:00 O2 Flow Rate 2 09/08/23 03:48 FiO2 70 08/11/23 13:00 BMI result Body Mass Index 41.6 Gen: in no acute distress HEENT: sclera anicteric, moist mucus membranes Neck: supple Lungs: clear to auscultation bilaterally Heart: regular rate and rhythm, no murmurs Abd: soft, non-tender, non-distended, morbidly obese Ext: no edema, LUE PICC Skin: warm/well-perfused Neuro: alert and oriented x3, no focal findings Psych: appropriate affect Objective Data Active Medications Bisacodyl (Bisacodyl 10 Mg Supp.Rect) 10 mg [place] DAILY PRN PRN Reason: Constipation Calcium Carbonate (Calcium Carbonate 750 Mg Tab.Chew) 750 mg PO Q6H PRN PRN Reason: Heartburn Last Admin: 08/14/23 22:28 Dose: 750 mg Documented By: RANDY Comments: given for c/o heartburn Docusate Sodium (Docusate Sodium 100 Mg Capsule) 100 mg PO BID PRN PRN Reason: Constipation Glucose (Glucose Gel 15 Gm Gel..Gram.) 15 gm PO Q15M PRN; Protocol PRN Reason: per Hypoglycemia Standing Ord. Dextrose (D10) 250 mls @ 750 mls/hr IV Q15M PRN PRN Reason: per Hypoglycemia Standing Ord. Nutrition (Parenteral) (Parenteral Nutrition) 2,040 mls @ 85 mls/hr IV .Q24H [facility]; Protocol Stop: 09/08/23 20:59 Last Admin: 09/07/23 21:11 Dose: 85 mls/hr Documented By: MARILUZ Nutrition (Parenteral) (Parenteral Nutrition) 2,040 mls @ 85 mls/hr IV .Q24H [facility]; Protocol Stop: 09/09/23 20:59 Insulin Human Lispro (Insulin Lispro 100 Unit/Ml 3 Ml Vial) 0 unit SUBCUT QIDACHS [facility]; Protocol Last Admin: 09/08/23 07:57 Dose: Not Given Documented By: SALVADOR Non-Admin Reason: No Insulin Coverage Lidocaine (Lidocaine 4 % Patch Adh..Patch) 1 patch TRANSDERMA DAILY [facility]; Protocol Last Admin: 09/08/23 08:19 Dose: 1 patch Documented By: SALVADOR Prochlorperazine Edisylate (Prochlorperazine Edisylate 10 Mg/2 Ml Vial) 10 mg IVPUSH Q4H PRN PRN Reason: Nausea and Vomiting Last Admin: 09/06/23 10:26 Dose: 10 mg Documented By: RIOSCEL Rivaroxaban (Rivaroxaban 20 Mg Tablet) 20 mg PO DAILY [facility] Last Admin: 09/08/23 08:19 Dose: 20 mg Documented By: SALVADOR Sodium Chloride (0.9 % Sodium Chloride Flush 3 Ml Syringe) 3 ml IVFLUSH QSHIFT [facility] Last Admin: 09/08/23 07:58 Dose: Not Given Documented By: SALVADOR Non-Admin Reason: IV Running Sodium Chloride (Sodium Chloride 0.65 % Nasal 44 Ml Sprbtl) 1 spray NOSTRIL-B Q1H PRN PRN Reason: nasal dryness Sodium Chloride (0.9 % Sodium Chloride Flush 10 Ml Syringe) 5 ml IVFLUSH TID [facility] Last Admin: 09/08/23 08:19 Dose: Not Given Documented By: SALVADOR Non-Admin Reason: IV Running Labs 08/26/23 06:47 09/08/23 07:01 Labs: Laboratory Results - last 24 hr 09/07/23 09/07/23 09/07/23 10:58 17:14 20:15 Hold Purple Top Anion Gap Estim Creat Clear Calc Estimated GFR POC Glucose 155 H 162 H 157 H Random Glucose Calcium Phosphorus Magnesium Triglycerides Hold Yellow Top 09/08/23 09/08/23 07:01 07:28 Hold Purple Top SEE NOTE Anion Gap 13 Estim Creat Clear Calc 221.5 Estimated GFR > 60 POC Glucose 148 H Random Glucose 151 H Calcium 8.5 D Phosphorus 3.5 Magnesium 1.9 Triglycerides 168 H Hold Yellow Top See Note Assessment and Plan (1) Status post small bowel resection: Status: Acute Assessment and Plan: d34 53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 daily electrolyte checks for TPN - NGT removed 08/27/23. Started clears 08/28/23. Surgery following- OK for clear diet. CT shows contrast passing through despite narrowing at anastomosis. As diet advances, wean off TPN. nocturnal hypoxia/mod-sev SHAVON - CPAP at night per Pulmonology. Upon discharge, will need sleep lab CPAP titration study. ANA - resolved after fluid resuscitation hx DVT/PE - resumed rivaroxaban as per Surgery Guillain-[place] syndrome - stable; on monthly IVIG x5d and due now but would need premedication with prednisone, which would impair wound healing, so deferring for now VTE ppx - LMWH dispo - plan home with VNA In my clinical judgment, the patient requires continued inpatient hospitalization for the following reasons: TPN, advancing diet Total time managing care of this patient today: 35 minutes. Quality Stroke Does the patient have a stroke diagnosis?: No VTE Prior VTE?: No VTE Risk Level:: Medical - moderate - high VTE Device Contraindication: Treatment Not Indicated VTE Drug Contraindication: N/A - Med Ordered
--- NOTE | 2023-09-08 11:27 | MHC.CLN ---
F/U DIET RX: C/L PT RECEIVING ENSURE CLEAR TID PROVIDES 720KCALS, 24G PROTEIN WITH 100% ACCEPTANCE. APPEARS TO BE TOLERATING CLEAR LIQUIDS. REVIEWED LABS. CONTINUE TPN AT MAX GOAL RATE 85ML/HR WITH 86G LIPIDS PROVIDES 2308 TOTAL KCALS (30KCALS/KG BASED ON CMW) , 102G PROTEIN (1.3G/KG), 306G DEXTROSE. REPLETE LYTES NEEDED. SKIN WITH STAGE 2 R BUTTOCKS. TPN NUTRITION WITH HIGHER PROTEIN TO PROMOTE WOUND HEALING. MONITOR PO INTAKE CLOSELY AND ENCOURAGE SUPPLEMENTS.
[2023-09-08 11:32] LABS: Glucose, Whole Blood 145 mg/dL (60-115)
[2023-09-08 12:00] VITALS: BP 112/74; PULSE 105; RESP 18; TEMP 36.7; O2SAT 97
--- NOTE | 2023-09-08 14:43 | MHC.CM.PN ---
Per MD rounds no DC today. The patient continues with TPN and poor PO intake. DP is Home with VNA once patient tolerates diet. As a backup plan a referral has been sent to [facility] home infusion. The [facility] may be able to assist with home infusion care at discharge. CM will continue to follow for discharge.
[2023-09-08 15:10] VITALS: BP 117/81; PULSE 107; RESP 22; TEMP 36.7; O2SAT 96
[2023-09-08 16:24] LABS: Glucose, Whole Blood 130 mg/dL (60-115)
--- NOTE | 2023-09-08 17:18 | HO.WOUND ---
Wound Consult: Initial 53yr old? Male admitted to [facility] on 08/06/23 19:41? with a complex medical admission.? See progress notes and H&P for detailed history.? Wound consult placed for Left Great Toe Wound.? Patient agreeable to assessment and photo documentation.? Of note patient remains in Agility Pulsate bed and per discussion with patient and staff slides down in the bed will benefit from foot bolster or longer bed- direct care team to call [facility] for options.? 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 Of note right great toe assessed and intact no open wound noted - observed evidence of previous injury noted. Right Great Toe Left Great Toe Etiology: ?Unclear Etiology at this time - ?Neuropathy wound vs Pressure Injury Measurements: 1.6cm x 2cm x 0.2cm Wound Bed: Full thickness tissue loss with moist marbled wound bed of pink and yellow slough Drainage / Odor: Creamy yellow drainage? - no odor Edges: ? well defined Joy wound: ? Dry and callused - No Induration, Fluctuance or Warmth noted 2nd toe noted for dry dark pigmentation - foot is cool to touch Pain: denies reports neuropathy Goals of Treatment: ? DuraFiber AG for Moisture management and autolytic debridement. Provider to consider consult to Dr. Munguia for vascular assessment. Recommendations: 1. Turn and Reposition every 2 hours and as needed for patient comfort.? Use pillows or wedges to support off loading positions. 2. Off Load all bony prominences with use of pillows and heel boots if needed.? Apply Preventative foams where needed. ? 3. Monitor for incontinence and moisture control, use barrier creams when needed for prevention and treatment. 4. Provide adequate and supplemental nutrition.? 5. Continue? low air loss mattress Bariatric bed.? Agility called for bed physical therapy resident. 6.? Buttock, Sacrum and Coccyx -? Off Load Pressure - Barrier cream twice daily to protect from moisture and friction. 7. Right Ischium - Cleanse with Ph balance wipe, pay dry.? Apply barrier cream, cover with foam dressing.? Change every other day and PRN for soiling. 8. Left Great Toe? - Off Load Pressure? - Cleanse with NS moist gauze, pat dry.? Apply skin prep to periwound.? Use cut to size Durafiber AG cover with foam dressing.? Change every 3 days and PRN. Re-consult wound care Nurse for wound deterioration or wound changes.
[2023-09-08 19:56] VITALS: BP 92/70; PULSE 107; RESP 20; TEMP 36.3; O2SAT 99
[2023-09-08 20:10] LABS: Glucose, Whole Blood 131 mg/dL (60-115)
[2023-09-08] MEDS: Parenteral Nutrition 2,040 ML 85 ML IV (21:11)
[2023-09-08 23:54] VITALS: BP 107/67; PULSE 112; RESP 20; TEMP 36.4; O2SAT 96
[2023-09-09 03:44] VITALS: BP 109/69; PULSE 98; RESP 20; TEMP 36.4; O2SAT 96
[2023-09-09 06:28] LABS: Anion Gap 13 (12-20); Blood Urea Nitrogen 16 mg/dL (9-16); Calcium 8.4 mg/dL (8.4-10.2); Carbon Dioxide 23 mmol/L (22-29); Chloride 106 mmol/L (96-108); Estimated Glomerular Filt Rate > 60; Glucose Random 170 mg/dL (60-115); Magnesium 1.7 mg/dL (1.6-2.6); Phosphorus 3.2 mg/dL (2.7-4.5); Sodium 138 mmol/L (135-145); Triglycerides 170 mg/dL (<150)
[2023-09-09 07:06] VITALS: BP 100/58; PULSE 102; RESP 16; TEMP 36.3; O2SAT 98
[2023-09-09 07:34] LABS: Glucose, Whole Blood 197 mg/dL (60-115)
[2023-09-09] MEDS: Rivaroxaban 20 MG TABLET PO (08:29)
[2023-09-09] MEDS: Lidocaine 4 % Patch ADH..PATCH 1 PATCH TRANSDERMA (08:29)
[2023-09-09] MEDS: Insulin Lispro 100 UNIT/ML 3 ML VIAL SUBCUT (08:30)
--- NOTE | 2023-09-09 08:34 | P.PNGS_ITS ---
Subjective Subjective Date of Service: 09/09/23 Interval history: Feels well Has been drinking a lot of liquids No nausea or vomiting Has good flatus, BMs Denies abdominal pain Physical Exam 2 Vital Signs: Vital Signs: Last Vital Signs Temp 97.4 F 09/09/23 07:06 Pulse 102 H 09/09/23 07:06 Resp 16 09/09/23 07:06 BP 100/58 L 09/09/23 07:06 Pulse Ox 98 09/09/23 07:06 O2 Del Method Room Air 09/09/23 07:06 O2 Flow Rate 2 09/09/23 03:44 FiO2 70 08/11/23 13:00 BMI result Body Mass Index 41.6 Const: General: comfortable and no acute distress Resp: Effort & Inspection: normal respiratory effort Cardio: Rhythm: regular rhythm GI: Palpation (GI): Soft to palpation, not firm and nontender Objective Data Active Medications Bisacodyl (Bisacodyl 10 Mg Supp.Rect) 10 mg [place] DAILY PRN PRN Reason: Constipation Calcium Carbonate (Calcium Carbonate 750 Mg Tab.Chew) 750 mg PO Q6H PRN PRN Reason: Heartburn Last Admin: 08/14/23 22:28 Dose: 750 mg Documented By: RANDY Comments: given for c/o heartburn Docusate Sodium (Docusate Sodium 100 Mg Capsule) 100 mg PO BID PRN PRN Reason: Constipation Glucose (Glucose Gel 15 Gm Gel..Gram.) 15 gm PO Q15M PRN; Protocol PRN Reason: per Hypoglycemia Standing Ord. Dextrose (D10) 250 mls @ 750 mls/hr IV Q15M PRN PRN Reason: per Hypoglycemia Standing Ord. Nutrition (Parenteral) (Parenteral Nutrition) 2,040 mls @ 85 mls/hr IV .Q24H [facility]; Protocol Stop: 09/09/23 20:59 Last Admin: 09/08/23 21:11 Dose: 85 mls/hr Documented By: STELLA Insulin Human Lispro (Insulin Lispro 100 Unit/Ml 3 Ml Vial) 0 unit SUBCUT QIDACHS [facility]; Protocol Last Admin: 09/09/23 08:30 Dose: 2 unit Documented By: SALVADOR Lidocaine (Lidocaine 4 % Patch Adh..Patch) 1 patch TRANSDERMA DAILY [facility]; Protocol Last Admin: 09/09/23 08:29 Dose: 1 patch Documented By: SALVADOR Prochlorperazine Edisylate (Prochlorperazine Edisylate 10 Mg/2 Ml Vial) 10 mg IVPUSH Q4H PRN PRN Reason: Nausea and Vomiting Last Admin: 09/06/23 10:26 Dose: 10 mg Documented By: KRISTINA Rivaroxaban (Rivaroxaban 20 Mg Tablet) 20 mg PO DAILY [facility] Last Admin: 09/09/23 08:29 Dose: 20 mg Documented By: SALVADOR Sodium Chloride (0.9 % Sodium Chloride Flush 3 Ml Syringe) 3 ml IVFLUSH QSHIFT [facility] Last Admin: 09/09/23 08:20 Dose: Not Given Documented By: SALVADOR Non-Admin Reason: IV Running Sodium Chloride (Sodium Chloride 0.65 % Nasal 44 Ml Sprbtl) 1 spray NOSTRIL-B Q1H PRN PRN Reason: nasal dryness Sodium Chloride (0.9 % Sodium Chloride Flush 10 Ml Syringe) 5 ml IVFLUSH TID [facility] Last Admin: 09/09/23 08:20 Dose: Not Given Documented By: SALVADOR Non-Admin Reason: IV Running Labs 08/26/23 06:47 09/09/23 05:15 Labs: Laboratory Results - last 24 hr 09/08/23 09/08/23 09/08/23 11:27 16:20 19:30 Hold Purple Top Anion Gap Estim Creat Clear Calc Estimated GFR POC Glucose 145 H 130 H 131 H Random Glucose Calcium Phosphorus Magnesium Triglycerides 09/09/23 09/09/23 05:15 07:09 Hold Purple Top SEE NOTE Anion Gap 13 Estim Creat Clear Calc 208.0 Estimated GFR > 60 POC Glucose 197 H Random Glucose 170 H Calcium 8.4 Phosphorus 3.2 Magnesium 1.7 Triglycerides 170 H Procedures Date of Service Date of Service: 09/09/23 Progress Note: A&P Assessment and plan (1) Ischemic bowel disease: Status: Acute Assessment and Plan: Has had small bowel resection Patient is very anxious about advancing diet in view of his recent experience with vomiting He has been taking lots of clear liquids including breath and has been doing well I told him that he should try ensure so that we can meet his caloric requirements CT scan does suggest possible narrowing in the anastomosis likely because of his ischemic disease Otherwise he has been doing very well Time Spent With Patient Time: Total time managing care of this patient today ____ minutes. Quality Stroke Does the patient have a stroke diagnosis?: No VTE Prior VTE?: No VTE Risk Level:: Medical - moderate - high VTE Device Contraindication: Treatment Not Indicated VTE Drug Contraindication: N/A - Med Ordered
--- NOTE | 2023-09-09 09:46 | MHC.CLN ---
F/U DIET RX: REMAINS ON C/L PT CONSUMING LARGE AMOUNTS OF LIQUIDS PER MD PT DOES NOT WANT TO ADVANCE DIET R/T PREVIOUS VOMITING PT RECEIVING ENSURE CLEAR TID PROVIDES 720KCALS, 24G PROTEIN WILL CHANGE TO REGULAR ENSURE TID TO INCREASE KCALS SUPPLEMENT WILL PROVIDE 1050KCALS, 60G PROTEIN WITH 100% ACCEPTANCE REVIEWED LABS DISCUSSED WITH PHARMACY CONTINUE TPN AT MAX GOAL RATE 85ML/HR WITH 86G LIPIDS PROVIDES 2308 TOTAL KCALS (30KCALS/KG BASED ON CMW) , 102G PROTEIN (1.3G/KG), 306G DEXTROSE REPLETE LYTES NEEDED SKIN WITH STAGE 2 R BUTTOCKS; TPN NUTRITION WITH HIGHER PROTEIN TO PROMOTE WOUND HEALING. MONITOR PO INTAKE CLOSELY AND ENCOURAGE SUPPLEMENTS
--- NOTE | 2023-09-09 10:11 | P.PNIM_ITS ---
Subjective Subjective Date of Service: 09/09/23 Interval History: no abd pain; passing flatus Review of Systems Review of Systems: Yes all other systems are reviewed and are negative Physical Exam 2 Vital Signs: Vital Signs: Last Vital Signs Temp 97.4 F 09/09/23 07:06 Pulse 102 H 09/09/23 07:06 Resp 16 09/09/23 07:06 BP 100/58 L 09/09/23 07:06 Pulse Ox 98 09/09/23 07:06 O2 Del Method Room Air 09/09/23 07:06 O2 Flow Rate 2 09/09/23 03:44 FiO2 70 08/11/23 13:00 BMI result Body Mass Index 41.6 Gen: in no acute distress HEENT: sclera anicteric, moist mucus membranes Neck: supple Lungs: clear to auscultation bilaterally Heart: regular rate and rhythm, no murmurs Abd: soft, non-tender, non-distended, morbidly obese Ext: no edema, LUE PICC Skin: warm/well-perfused Neuro: alert and oriented x3, no focal findings Psych: appropriate affect Objective Data Active Medications Bisacodyl (Bisacodyl 10 Mg Supp.Rect) 10 mg [place] DAILY PRN PRN Reason: Constipation Calcium Carbonate (Calcium Carbonate 750 Mg Tab.Chew) 750 mg PO Q6H PRN PRN Reason: Heartburn Last Admin: 08/14/23 22:28 Dose: 750 mg Documented By: RANDY Comments: given for c/o heartburn Docusate Sodium (Docusate Sodium 100 Mg Capsule) 100 mg PO BID PRN PRN Reason: Constipation Glucose (Glucose Gel 15 Gm Gel..Gram.) 15 gm PO Q15M PRN; Protocol PRN Reason: per Hypoglycemia Standing Ord. Dextrose (D10) 250 mls @ 750 mls/hr IV Q15M PRN PRN Reason: per Hypoglycemia Standing Ord. Nutrition (Parenteral) (Parenteral Nutrition) 2,040 mls @ 85 mls/hr IV .Q24H [facility]; Protocol Stop: 09/09/23 20:59 Last Admin: 09/08/23 21:11 Dose: 85 mls/hr Documented By: STELLA Insulin Human Lispro (Insulin Lispro 100 Unit/Ml 3 Ml Vial) 0 unit SUBCUT QIDACHS [facility]; Protocol Last Admin: 09/09/23 08:30 Dose: 2 unit Documented By: SALVADOR Lidocaine (Lidocaine 4 % Patch Adh..Patch) 1 patch TRANSDERMA DAILY [facility]; Protocol Last Admin: 09/09/23 08:29 Dose: 1 patch Documented By: SALVDAOR Prochlorperazine Edisylate (Prochlorperazine Edisylate 10 Mg/2 Ml Vial) 10 mg IVPUSH Q4H PRN PRN Reason: Nausea and Vomiting Last Admin: 09/06/23 10:26 Dose: 10 mg Documented By: RIOSCPETE Rivaroxaban (Rivaroxaban 20 Mg Tablet) 20 mg PO DAILY [facility] Last Admin: 09/09/23 08:29 Dose: 20 mg Documented By: SALVADOR Sodium Chloride (0.9 % Sodium Chloride Flush 3 Ml Syringe) 3 ml IVFLUSH QSHIFT [facility] Last Admin: 09/09/23 08:20 Dose: Not Given Documented By: SALVADOR Non-Admin Reason: IV Running Sodium Chloride (Sodium Chloride 0.65 % Nasal 44 Ml Sprbtl) 1 spray NOSTRIL-B Q1H PRN PRN Reason: nasal dryness Sodium Chloride (0.9 % Sodium Chloride Flush 10 Ml Syringe) 5 ml IVFLUSH TID [facility] Last Admin: 09/09/23 08:20 Dose: Not Given Documented By: SALVADOR Non-Admin Reason: IV Running Labs 08/26/23 06:47 09/09/23 05:15 Labs: Laboratory Results - last 24 hr 09/08/23 09/08/23 09/08/23 11:27 16:20 19:30 Hold Purple Top Anion Gap Estim Creat Clear Calc Estimated GFR POC Glucose 145 H 130 H 131 H Random Glucose Calcium Phosphorus Magnesium Triglycerides 09/09/23 09/09/23 05:15 07:09 Hold Purple Top SEE NOTE Anion Gap 13 Estim Creat Clear Calc 208.0 Estimated GFR > 60 POC Glucose 197 H Random Glucose 170 H Calcium 8.4 Phosphorus 3.2 Magnesium 1.7 Triglycerides 170 H Assessment and Plan (1) Status post small bowel resection: Status: Acute Assessment and Plan: d35 53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 daily electrolyte checks for TPN - NGT removed 08/27/23. Started clears 08/28/23. Surgery following- OK for clear diet. Encourage Ensure intake. CT shows contrast passing through despite narrowing at anastomosis. As diet advances, wean off TPN. nocturnal hypoxia/mod-sev SHAVON - CPAP at night per Pulmonology. Upon discharge, will need sleep lab CPAP titration study. ANA - resolved after fluid resuscitation hx DVT/PE - resumed rivaroxaban as per Surgery Guillain-[place] syndrome - stable; on monthly IVIG x5d and due now but would need premedication with prednisone, which would impair wound healing, so deferring for now VTE ppx - LMWH dispo - plan home with VNA In my clinical judgment, the patient requires continued inpatient hospitalization for the following reasons: TPN, advancing diet Total time managing care of this patient today: 35 minutes. Quality Stroke Does the patient have a stroke diagnosis?: No VTE Prior VTE?: No VTE Risk Level:: Medical - moderate - high VTE Device Contraindication: Treatment Not Indicated VTE Drug Contraindication: N/A - Med Ordered
[2023-09-09 11:44] LABS: Glucose, Whole Blood 150 mg/dL (60-115)
[2023-09-09 16:00] VITALS: BP 104/65; PULSE 99; RESP 16; TEMP 36.4; O2SAT 98
[2023-09-09 17:12] VITALS: BP 107/71; PULSE 111; RESP 16; TEMP 36.6; O2SAT 93
[2023-09-09 17:12] LABS: Glucose, Whole Blood 114 mg/dL (60-115)
[2023-09-09 19:43] VITALS: BP 110/71; PULSE 100; RESP 16; TEMP 36.9; O2SAT 93
[2023-09-09 20:29] LABS: Glucose, Whole Blood 137 mg/dL (60-115)
[2023-09-09] MEDS: Parenteral Nutrition 2,040 ML 85 ML IV (21:14)
[2023-09-09] MEDS: traMADoL HCL 50 MG TABLET 25 MG PO (21:42)
--- NOTE | 2023-09-09 21:46 | MHC.PIE ---
p; pt c/o pain 6/ lt low back throbbing. note; no prn pain meds. pt offered position moss, hot pack and pillows with little result i; dr wan notified. new order ultram po now e; will cont to monitor
[2023-09-09] MEDS: Prochlorperazine Edisylate 10 MG/2 ML VIAL IVPUSH (22:46)
[2023-09-09 23:39] VITALS: BP 114/68; PULSE 112; RESP 16; TEMP 36.1; O2SAT 97
[2023-09-10 04:00] VITALS: BP 118/66; PULSE 104; RESP 16; TEMP 36; O2SAT 97
[2023-09-10 06:15] LABS: Anion Gap 12 (12-20); Blood Urea Nitrogen 15 mg/dL (9-16); Calcium 8.9 mg/dL (8.4-10.2); Carbon Dioxide 26 mmol/L (22-29); Chloride 104 mmol/L (96-108); Estimated Glomerular Filt Rate > 60; Glucose Random 170 mg/dL (60-115); Potassium 4.2 mmol/L (3.3-5.1); Sodium 138 mmol/L (135-145); Triglycerides 193 mg/dL (<150)
[2023-09-10 07:39] LABS: Glucose, Whole Blood 168 mg/dL (60-115)
[2023-09-10 07:48] VITALS: BP 123/79; PULSE 99; RESP 18; TEMP 36.4; O2SAT 98
[2023-09-10] MEDS: Rivaroxaban 20 MG TABLET PO (08:04)
[2023-09-10] MEDS: Lidocaine 4 % Patch ADH..PATCH 1 PATCH TRANSDERMA (08:04)
[2023-09-10] MEDS: Insulin Lispro 100 UNIT/ML 3 ML VIAL SUBCUT ×2 (08:05→11:49)
--- NOTE | 2023-09-10 08:26 | P.PNGS_ITS ---
Subjective Subjective Date of Service: 09/13/23 Interval history: says he feels well denies abdl pain passing flatus drinking a lot of liquids Physical Exam 2 Vital Signs: Vital Signs: Last Vital Signs Temp 97.6 F 09/10/23 07:48 Pulse 99 09/10/23 07:48 Resp 18 09/10/23 07:48 BP 123/79 09/10/23 07:48 Pulse Ox 98 09/10/23 07:48 O2 Del Method Nasal Cannula 09/10/23 07:48 O2 Flow Rate 2 09/10/23 07:48 FiO2 70 08/11/23 13:00 BMI result Body Mass Index 41.6 Const: General: comfortable and no acute distress Resp: Effort & Inspection: normal respiratory effort Cardio: Rate: regular rate GI: Palpation (GI): Soft to palpation, not firm and nontender Objective Data Active Medications Bisacodyl (Bisacodyl 10 Mg Supp.Rect) 10 mg [place] DAILY PRN PRN Reason: Constipation Calcium Carbonate (Calcium Carbonate 750 Mg Tab.Chew) 750 mg PO Q6H PRN PRN Reason: Heartburn Last Admin: 08/14/23 22:28 Dose: 750 mg Documented By: RANDY Comments: given for c/o heartburn Docusate Sodium (Docusate Sodium 100 Mg Capsule) 100 mg PO BID PRN PRN Reason: Constipation Glucose (Glucose Gel 15 Gm Gel..Gram.) 15 gm PO Q15M PRN; Protocol PRN Reason: per Hypoglycemia Standing Ord. Dextrose (D10) 250 mls @ 750 mls/hr IV Q15M PRN PRN Reason: per Hypoglycemia Standing Ord. Nutrition (Parenteral) (Parenteral Nutrition) 2,040 mls @ 85 mls/hr IV .Q24H [facility]; Protocol Stop: 09/10/23 20:59 Last Admin: 09/09/23 21:14 Dose: 85 mls/hr Documented By: STELLA Insulin Human Lispro (Insulin Lispro 100 Unit/Ml 3 Ml Vial) 0 unit SUBCUT QIDACHS [facility]; Protocol Last Admin: 09/10/23 08:05 Dose: 2 unit Documented By: DYLAN Lidocaine (Lidocaine 4 % Patch Adh..Patch) 1 patch TRANSDERMA DAILY [facility]; Protocol Last Admin: 09/10/23 08:04 Dose: 1 patch Documented By: DYLAN Prochlorperazine Edisylate (Prochlorperazine Edisylate 10 Mg/2 Ml Vial) 10 mg IVPUSH Q4H PRN PRN Reason: Nausea and Vomiting Last Admin: 09/09/23 22:46 Dose: 10 mg Documented By: STELLA Rivaroxaban (Rivaroxaban 20 Mg Tablet) 20 mg PO DAILY [facility] Last Admin: 09/10/23 08:04 Dose: 20 mg Documented By: DYLAN Sodium Chloride (0.9 % Sodium Chloride Flush 3 Ml Syringe) 3 ml IVFLUSH QSHIFT [facility] Last Admin: 09/10/23 07:54 Dose: Not Given Documented By: DYLAN Non-Admin Reason: IV Running Sodium Chloride (Sodium Chloride 0.65 % Nasal 44 Ml Sprbtl) 1 spray NOSTRIL-B Q1H PRN PRN Reason: nasal dryness Sodium Chloride (0.9 % Sodium Chloride Flush 10 Ml Syringe) 5 ml IVFLUSH TID [facility] Last Admin: 09/10/23 07:54 Dose: Not Given Documented By: DYLAN Non-Admin Reason: IV Running Labs 08/26/23 06:47 09/13/23 05:40 Labs: Laboratory Results - last 24 hr 09/09/23 09/09/23 09/09/23 11:33 17:06 20:26 Hold Purple Top Anion Gap Estim Creat Clear Calc Estimated GFR POC Glucose 150 H 114 137 H Random Glucose Calcium Triglycerides 09/10/23 09/10/23 05:28 07:29 Hold Purple Top SEE NOTE Anion Gap 12 Estim Creat Clear Calc 208.0 Estimated GFR > 60 POC Glucose 168 H Random Glucose 170 H Calcium 8.9 Triglycerides 193 H Procedures Date of Service Date of Service: 09/13/23 Progress Note: A&P Assessment and plan (1) Ischemic bowel disease: Status: Acute Assessment and Plan: s/p resection of long segment Doing well clinically Tolerating liquids without vomiting or nausea for over a week now Continues to pass flatus Likely to have some narrowing at the anastomosis because of his ischemic disease Encouraged to take ensure Hopefully can meet his caloric requirements via enteral feeds Time Spent With Patient Time: Total time managing care of this patient today ____ minutes. Quality Stroke Does the patient have a stroke diagnosis?: No VTE Prior VTE?: No VTE Risk Level:: Medical - moderate - high VTE Device Contraindication: Treatment Not Indicated VTE Drug Contraindication: N/A - Med Ordered
[2023-09-10 09:07] LABS: Albumin Level 2.8 g/dL (3.5-5.0); Magnesium 1.7 mg/dL (1.6-2.6); Phosphorus 3.4 mg/dL (2.7-4.5)
--- NOTE | 2023-09-10 09:59 | MHC.CLN ---
F/U DIET=FULL LIQUIDS WITH ENSURE TID. SUPPLEMENT PROVIDES 1050 KCALS, 60 G PROTEIN. PT CONSUMING LARGE AMOUNTS OF LIQUIDS PER MD. REVIEWED LABS. CONTINUES WITH TPN. FOLLOW FOR PO TOLERANCE, PO INTAKE, AND TPN NEEDS. RECOMMEND DISCONTINUE LIPIDS FROM TPN TO REDUCE KCAL INTAKE. TPN AT MAX GOAL RATE 85ML/HR. PROVIDES 1448 TOTAL KCALS (18.8KCALS/KG BASED ON CMW) , 102G PROTEIN (1.3G/KG), 306G DEXTROSE. REPLETE LYTES NEEDED. SKIN WITH STAGE 2 R BUTTOCKS; TPN NUTRITION WITH HIGHER PROTEIN TO PROMOTE WOUND HEALING. MONITOR PO INTAKE CLOSELY AND ENCOURAGE SUPPLEMENTS.
[2023-09-10 10:35] VITALS: BP 123/79; PULSE 99; O2SAT 98
--- NOTE | 2023-09-10 11:27 | P.PNIM_ITS ---
Subjective Subjective Date of Service: 09/10/23 Interval History: Tolerating full liquids Going to try soup later today Having flatus + BMs No abd pain Review of Systems Review of Systems: Yes all other systems are reviewed and are negative Physical Exam 2 Vital Signs: Vital Signs: Last Vital Signs Temp 97.6 F 09/10/23 07:48 Pulse 99 09/10/23 10:35 Resp 18 09/10/23 07:48 BP 123/79 09/10/23 10:35 Pulse Ox 98 09/10/23 10:35 O2 Del Method Nasal Cannula 09/10/23 07:48 O2 Flow Rate 2 09/10/23 07:48 FiO2 70 08/11/23 13:00 BMI result Body Mass Index 41.6 Gen: in no acute distress HEENT: sclera anicteric, moist mucus membranes Neck: supple Lungs: clear to auscultation bilaterally Heart: regular rate and rhythm, no murmurs Abd: soft, non-tender, non-distended, morbidly obese Ext: no edema, LUE PICC Skin: warm/well-perfused Neuro: alert and oriented x3, no focal findings Psych: appropriate affect Objective Data Active Medications Bisacodyl (Bisacodyl 10 Mg Supp.Rect) 10 mg [place] DAILY PRN PRN Reason: Constipation Calcium Carbonate (Calcium Carbonate 750 Mg Tab.Chew) 750 mg PO Q6H PRN PRN Reason: Heartburn Last Admin: 08/14/23 22:28 Dose: 750 mg Documented By: RANDY Comments: given for c/o heartburn Docusate Sodium (Docusate Sodium 100 Mg Capsule) 100 mg PO BID PRN PRN Reason: Constipation Glucose (Glucose Gel 15 Gm Gel..Gram.) 15 gm PO Q15M PRN; Protocol PRN Reason: per Hypoglycemia Standing Ord. Dextrose (D10) 250 mls @ 750 mls/hr IV Q15M PRN PRN Reason: per Hypoglycemia Standing Ord. Nutrition (Parenteral) (Parenteral Nutrition) 2,040 mls @ 85 mls/hr IV .Q24H [facility]; Protocol Stop: 09/10/23 20:59 Last Admin: 09/09/23 21:14 Dose: 85 mls/hr Documented By: STELLA Nutrition (Parenteral) (Parenteral Nutrition) 2,040 mls @ 85 mls/hr IV .Q24H [facility]; Protocol Stop: 09/11/23 20:59 Insulin Human Lispro (Insulin Lispro 100 Unit/Ml 3 Ml Vial) 0 unit SUBCUT QIDACHS [facility]; Protocol Last Admin: 09/10/23 08:05 Dose: 2 unit Documented By: DYLAN Lidocaine (Lidocaine 4 % Patch Adh..Patch) 1 patch TRANSDERMA DAILY [facility]; Protocol Last Admin: 09/10/23 08:04 Dose: 1 patch Documented By: DYLAN Prochlorperazine Edisylate (Prochlorperazine Edisylate 10 Mg/2 Ml Vial) 10 mg IVPUSH Q4H PRN PRN Reason: Nausea and Vomiting Last Admin: 09/09/23 22:46 Dose: 10 mg Documented By: STELLA Rivaroxaban (Rivaroxaban 20 Mg Tablet) 20 mg PO DAILY [facility] Last Admin: 09/10/23 08:04 Dose: 20 mg Documented By: DYLAN Sodium Chloride (0.9 % Sodium Chloride Flush 3 Ml Syringe) 3 ml IVFLUSH QSHIFT [facility] Last Admin: 09/10/23 07:54 Dose: Not Given Documented By: DYLAN Non-Admin Reason: IV Running Sodium Chloride (Sodium Chloride 0.65 % Nasal 44 Ml Sprbtl) 1 spray NOSTRIL-B Q1H PRN PRN Reason: nasal dryness Sodium Chloride (0.9 % Sodium Chloride Flush 10 Ml Syringe) 5 ml IVFLUSH TID [facility] Last Admin: 09/10/23 07:54 Dose: Not Given Documented By: DYLAN Non-Admin Reason: IV Running Labs 08/26/23 06:47 09/10/23 05:28 Labs: Laboratory Results - last 24 hr 09/09/23 09/09/23 09/09/23 11:33 17:06 20:26 Hold Purple Top Anion Gap Estim Creat Clear Calc Estimated GFR POC Glucose 150 H 114 137 H Random Glucose Calcium Phosphorus Magnesium Albumin Triglycerides 09/10/23 09/10/23 05:28 07:29 Hold Purple Top SEE NOTE Anion Gap 12 Estim Creat Clear Calc 208.0 Estimated GFR > 60 POC Glucose 168 H Random Glucose 170 H Calcium 8.9 Phosphorus 3.4 Magnesium 1.7 Albumin 2.8 L Triglycerides 193 H Assessment and Plan (1) Status post small bowel resection: Status: Acute Assessment and Plan: d36 53yo wheelchair-bound M with Guillain-Allen syndrome, 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 daily electrolyte checks for TPN - NGT removed 08/27/23. Started clears 08/28/23. Surgery following- OK for clear diet. Encourage Ensure intake. CT shows contrast passing through despite narrowing at anastomosis - Advanced to full liquids 09/09/23 with good tolerance. Stop TPN today [09/10/23]. Further diet advancement per Surgery. L great toe ulcer, neuropathic vs pressure - Arterial studies completely normal. Wound Care consulted, recommend: 1. Turn and Reposition every 2 hours and as needed for patient comfort.? Use pillows or wedges to support off loading positions. 2. Off Load all bony prominences with use of pillows and heel boots if needed.? Apply Preventative foams where needed. ? 3. Monitor for incontinence and moisture control, use barrier creams when needed for prevention and treatment. 4. Provide adequate and supplemental nutrition.? 5. Continue? low air loss mattress Bariatric bed.? 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 6.? Buttock, Sacrum and Coccyx -? Off Load Pressure - Barrier cream twice daily to protect from moisture and friction. 7. Right Ischium - Cleanse with Ph balance wipe, pay dry.? Apply barrier cream, cover with foam dressing.? Change every other day and PRN for soiling. 8. Left Great Toe? - Off Load Pressure? - Cleanse with NS moist gauze, pat dry.? Apply skin prep to periwound.? Use cut to size Durafiber AG cover with foam dressing.? Change every 3 days and PRN. nocturnal hypoxia/mod-sev SHAVON - CPAP at night per Pulmonology. Upon discharge, will need sleep lab CPAP titration study. 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 Quality Stroke Does the patient have a stroke diagnosis?: No VTE Prior VTE?: No VTE Risk Level:: Medical - moderate - high VTE Device Contraindication: Treatment Not Indicated VTE Drug Contraindication: N/A - Med Ordered
[2023-09-10 11:49] LABS: Glucose, Whole Blood 170 mg/dL (60-115)
[2023-09-10 15:37] VITALS: BP 104/61; PULSE 108; RESP 18; TEMP 36.3; O2SAT 96
[2023-09-10 16:15] LABS: Glucose, Whole Blood 122 mg/dL (60-115)
--- NOTE | 2023-09-10 16:22 | HO.WOUND ---
Wound Consult: Follow up 53yr old? Male admitted to [facility] on 08/06/23 19:41? with a complex medical admission.? See progress notes and H&P for detailed history.? Wound consult follow up for Left Great Toe Wound.? Patient agreeable to assessment and photo documentation.? Of note was transferred to [facility] big turn bed on the night of 09/08/23 and reports he does not like the bed. Unfortunately the bolsters built into the mattress are limiting his movement, he feels sunk into the bed. Of note his feet are not touching the foot bed. The firmness setting was set to full bars, I adjusted this to 4 bars and adjusted the pulsate setting to every 10minutes to see if this will provide some comfort while we figure out a new bed. Staff educated on bar and pulsate features and bars should be 4-5 bars no more. I checked in with the patient approximately 1 hr after my initial visit and he reports the mattress is now tolerable with the new adjustments. He was informed a new extra long pulsate bed will be delivered likely tomorrow. This will essentially be the same bed he was on previously but with a new length and addition a foot bolster and side bolsters to account for his size and width. He was agreeable to this and understanding the time frame and reports the bed is tolerable until new bed arrival tomorrow. Spoke with Gurwinder From [facility] and discussed best bed options - he reports [facility] Extra Long Bed with bolsters will be deliver tomorrow the latest given time of request. While at bedside and attempting to adjust bed for comfort patient was incontinent of liquid stool - incontinence care provided. The bilateral ischium and buttock and sacral area were assessed and were noted for resurfaced tissue - no open wounds noted at this time. Recommend continuing with barrier cream for protection from moisture and friction. Left Great Toe assessment 09/08/23 09/10/23 Assessment Discussed todays assessment and case with Dr. Chase from the Outpatient [facility]ound [facility] - patient is known to her from her General Surgery coverage here at [facility]. We discussed the case and she reports agreement at this time Primary Etiology will remain Neuropathic. TREVIN's have been completed and show normal blood flow - see charts for results. Todays assessment shows improved wound bed. Assessed for less adherent yellow slough and increased red moist wound bed - No new topical recommendations needed at this time. Will consider Santyl use if yellow slough does not continue to decrease at next assessment for enzymatic debridement. Etiology: ?Neuropathic wound Measurements: 1.6cm x 2cm x 0.2cm Wound Bed: Improving full thickness tissue loss with moist marbled wound bed of pink and yellow slough Drainage / Odor: scant yellow drainage? - no odor Edges: ? well defined Joy wound: ? Dry and callused - No Induration, Fluctuance or Warmth noted 2nd toe noted for dry dark pigmentation - foot is cool to touch Pain: denies pain reports neuropathy Goals of Treatment: ? DuraFiber AG for Moisture management and autolytic debridement. No new topical treatments needed. Recommend follow up with out patient wound clinic at time of discharge Recommendations: 1. Turn and Reposition every 2 hours and as needed for patient comfort.? Use pillows or wedges to support off loading positions. 2. Off Load all bony prominences with use of pillows and heel boots if needed.? Apply Preventative foams where needed. ? 3. Monitor for incontinence and moisture control, use barrier creams when needed for prevention and treatment. 4. Provide adequate and supplemental nutrition.? 5. Continue? low air loss mattress Bariatric bed.? 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 6.? Buttock, Sacrum and Coccyx -? Off Load Pressure - Barrier cream twice daily to protect from moisture and friction. 7. Left Great Toe? - Off Load Pressure? - Cleanse with NS moist gauze, pat dry.? Apply skin prep to periwound.? Use cut to size Durafiber AG cover with foam dressing.? Change every 3 days and PRN. Recommend follow up out patient Wound Clinic at [address] [place] [id number] and to call for an appointment at time of discharge. [phone].? Re-consult wound care Nurse for wound deterioration or wound changes.
[2023-09-10 19:47] LABS: Glucose, Whole Blood 140 mg/dL (60-115)
[2023-09-10 19:48] VITALS: BP 124/82; PULSE 100; TEMP 36.3; O2SAT 96
[2023-09-10] MEDS: 0.9 % Sodium Chloride Flush 3 ML SYRINGE IVFLUSH (21:08)
[2023-09-10] MEDS: 0.9 % Sodium Chloride Flush 10 ML SYRINGE 5 ML IVFLUSH (21:08)
[2023-09-10] MEDS: Acetaminophen 325 MG TABLET 650 MG PO (23:40)
[2023-09-10] MEDS: Prochlorperazine Edisylate 10 MG/2 ML VIAL IVPUSH (23:40)
[2023-09-11 03:45] VITALS: BP 119/74; PULSE 106; RESP 20; TEMP 36.3; O2SAT 97
[2023-09-11 06:19] LABS: Albumin Level 2.9 g/dL (3.5-5.0); Anion Gap 13 (12-20); Blood Urea Nitrogen 14 mg/dL (9-16); Calcium 8.6 mg/dL (8.4-10.2); Carbon Dioxide 25 mmol/L (22-29); Chloride 103 mmol/L (96-108); Creatinine Clr Calc Pharmacy 217.9; Estimated Glomerular Filt Rate > 60; Glucose Random 132 mg/dL (60-115); Magnesium 1.7 mg/dL (1.6-2.6); Phosphorus 3.5 mg/dL (2.7-4.5); Potassium 3.8 mmol/L (3.3-5.1); Sodium 137 mmol/L (135-145); Triglycerides 143 mg/dL (<150)
[2023-09-11 06:52] VITALS: BP 107/70; PULSE 104; RESP 16; TEMP 36.6; O2SAT 95
[2023-09-11 07:06] LABS: Glucose, Whole Blood 148 mg/dL (60-115)
[2023-09-11] MEDS: 0.9 % Sodium Chloride Flush 3 ML SYRINGE IVFLUSH ×2 (08:30→21:20)
[2023-09-11] MEDS: Rivaroxaban 20 MG TABLET PO (08:30)
[2023-09-11] MEDS: Lidocaine 4 % Patch ADH..PATCH 1 PATCH TRANSDERMA (08:30)
[2023-09-11] MEDS: 0.9 % Sodium Chloride Flush 10 ML SYRINGE 5 ML IVFLUSH ×3 (08:31→21:20)
[2023-09-11 11:08] LABS: Glucose, Whole Blood 140 mg/dL (60-115)
--- NOTE | 2023-09-11 11:57 | P.PNIM_ITS ---
Subjective Subjective Date of Service: 09/11/23 Interval History: States he is tolerating advancement of diet slowly. Passing gas and stools. Review of Systems Denies chest pain Denies shortness of breath Denies diarrhea Denies fever chills Admits nausea vomiting Physical Exam 2 Vital Signs: Vital Signs: Last Vital Signs Temp 98 F 09/11/23 06:52 Pulse 104 H 09/11/23 06:52 Resp 16 09/11/23 06:52 BP 107/70 09/11/23 06:52 Pulse Ox 95 09/11/23 06:52 O2 Del Method Room Air 09/11/23 06:52 O2 Flow Rate 2 09/10/23 07:48 FiO2 70 08/11/23 13:00 BMI result Body Mass Index 41.6 Const: Other: Awake alert no acute distress HEENT: Other: NG tube clamped Resp: Other: Clear to auscultation bilaterally no rales rhonchi or wheezes Cardio: Other: No S4; positive S1-S2; no S3 murmurs rubs or gallops GI: Other: Soft nontender nondistended normoactive bowel sounds Extrem: Other: No edema bilaterally Objective Data Active Medications Acetaminophen (Acetaminophen 325 Mg Tablet) 650 mg PO Q6H PRN PRN Reason: Pain, Moderate(Pain Scale 4-6) Last Admin: 09/10/23 23:40 Dose: 650 mg Documented By: ALLISON Bisacodyl (Bisacodyl 10 Mg Supp.Rect) 10 mg [place] DAILY PRN PRN Reason: Constipation Calcium Carbonate (Calcium Carbonate 750 Mg Tab.Chew) 750 mg PO Q6H PRN PRN Reason: Heartburn Last Admin: 08/14/23 22:28 Dose: 750 mg Documented By: RANDY Comments: given for c/o heartburn Docusate Sodium (Docusate Sodium 100 Mg Capsule) 100 mg PO BID PRN PRN Reason: Constipation Glucose (Glucose Gel 15 Gm Gel..Gram.) 15 gm PO Q15M PRN; Protocol PRN Reason: per Hypoglycemia Standing Ord. Dextrose (D10) 250 mls @ 750 mls/hr IV Q15M PRN PRN Reason: per Hypoglycemia Standing Ord. Insulin Human Lispro (Insulin Lispro 100 Unit/Ml 3 Ml Vial) 0 unit SUBCUT [facility]; Protocol Last Admin: 09/11/23 11:17 Dose: Not Given Documented By: ORION Non-Admin Reason: No Insulin Coverage Lidocaine (Lidocaine 4 % Patch Adh..Patch) 1 patch TRANSDERMA DAILY [facility]; Protocol Last Admin: 09/11/23 08:30 Dose: 1 patch Documented By: ORION Prochlorperazine Edisylate (Prochlorperazine Edisylate 10 Mg/2 Ml Vial) 10 mg IVPUSH Q4H PRN PRN Reason: Nausea and Vomiting Last Admin: 09/10/23 23:40 Dose: 10 mg Documented By: ALLISON Rivaroxaban (Rivaroxaban 20 Mg Tablet) 20 mg PO DAILY [facility] Last Admin: 09/11/23 08:30 Dose: 20 mg Documented By: ORION Sodium Chloride (0.9 % Sodium Chloride Flush 3 Ml Syringe) 3 ml IVFLUSH QSHIFT [facility] Last Admin: 09/11/23 08:30 Dose: 3 ml Documented By: ORION Sodium Chloride (Sodium Chloride 0.65 % Nasal 44 Ml Sprbtl) 1 spray NOSTRIL-B Q1H PRN PRN Reason: nasal dryness Sodium Chloride (0.9 % Sodium Chloride Flush 10 Ml Syringe) 5 ml IVFLUSH TID [facility] Last Admin: 09/11/23 08:31 Dose: 5 ml Documented By: ORION Labs 08/26/23 06:47 09/11/23 05:40 Labs: Laboratory Results - last 24 hr 09/10/23 09/10/23 09/11/23 16:10 19:34 05:40 Hold Purple Top SEE NOTE Anion Gap 13 Estim Creat Clear Calc 217.9 Estimated GFR > 60 POC Glucose 122 H 140 H Random Glucose 132 H Calcium 8.6 Phosphorus 3.5 Magnesium 1.7 Albumin 2.9 L Triglycerides 143 09/11/23 09/11/23 07:02 11:03 Hold Purple Top Anion Gap Estim Creat Clear Calc Estimated GFR POC Glucose 148 H 140 H Random Glucose Calcium Phosphorus Magnesium Albumin Triglycerides Assessment and Plan (1) Status post small bowel resection: Status: Acute Assessment and Plan: 53yo wheelchair-bound M with Guillain-[place] syndrome, 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 daily electrolyte checks for TPN - NGT removed 08/27/23. Started clears 08/28/23. Surgery following- OK for clear diet. Encourage Ensure intake. CT shows contrast passing through despite narrowing at anastomosis - Advanced to full liquids 09/09/23 with good tolerance. Stop TPN today [09/10/23]. Further diet advancement per Surgery. -no further vomiting 2.L great toe ulcer, neuropathic vs pressure - Arterial studies completely normal. Wound Care consulted, recommend: 1. Turn and Reposition every 2 hours and as needed for patient comfort.? Use pillows or wedges to support off loading positions. 2. Off Load all bony prominences with use of pillows and heel boots if needed.? Apply Preventative foams where needed. ? 3. Monitor for incontinence and moisture control, use barrier creams when needed for prevention and treatment. 4. Provide adequate and supplemental nutrition.? 5. Continue? low air loss mattress Bariatric bed.? 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 6.? Buttock, Sacrum and Coccyx -? Off Load Pressure - Barrier cream twice daily to protect from moisture and friction. 7. Right Ischium - Cleanse with Ph balance wipe, pay dry.? Apply barrier cream, cover with foam dressing.? Change every other day and PRN for soiling. 8. Left Great Toe? - Off Load Pressure? - Cleanse with NS moist gauze, pat dry.? Apply skin prep to periwound.? Use cut to size Durafiber AG cover with foam dressing.? Change every 3 days and PRN. 3.Nocturnal hypoxia/mod-sev SHAVON - CPAP at night per Pulmonology. Upon discharge, will need sleep lab CPAP titration study. 4.Hx DVT/PE - resumed rivaroxaban as per Surgery 5.Guillain-[place] syndrome - stable; on monthly IVIG x5d and due now but would need premedication with prednisone, which would impair wound healing, so deferring for now LMWH Heparin Requires ongoing hospitalization for advancement of diet with supplemental IV fluids (2) DVT (deep venous thrombosis): Status: Acute (3) Guillain-[place] syndrome: Status: Acute Quality Stroke Does the patient have a stroke diagnosis?: No VTE Prior VTE?: No VTE Risk Level:: Medical - moderate - high VTE Device Contraindication: Treatment Not Indicated VTE Drug Contraindication: N/A - Med Ordered
[2023-09-11] MEDS: Prochlorperazine Edisylate 10 MG/2 ML VIAL IVPUSH ×2 (14:37→21:58)
--- NOTE | 2023-09-11 15:11 | P.PNGS_ITS ---
Subjective Subjective Date of Service: 09/11/23 Interval history: No new issues or complaints. Patient is passing flatus and stool. Taking his nutritional supplements. Physical Exam 2 Vital Signs: Vital Signs: Last Vital Signs Temp 98 F 09/11/23 06:52 Pulse 104 H 09/11/23 06:52 Resp 16 09/11/23 06:52 BP 107/70 09/11/23 06:52 Pulse Ox 95 09/11/23 06:52 O2 Del Method Room Air 09/11/23 06:52 O2 Flow Rate 2 09/10/23 07:48 FiO2 70 08/11/23 13:00 BMI result Body Mass Index 41.6 GI: Other: Abdomen very corpulent, soft, benign. Incision clean dry and intact Objective Data Active Medications Acetaminophen (Acetaminophen 325 Mg Tablet) 650 mg PO Q6H PRN PRN Reason: Pain, Moderate(Pain Scale 4-6) Last Admin: 09/10/23 23:40 Dose: 650 mg Documented By: ALLISON Bisacodyl (Bisacodyl 10 Mg Supp.Rect) 10 mg [place] DAILY PRN PRN Reason: Constipation Calcium Carbonate (Calcium Carbonate 750 Mg Tab.Chew) 750 mg PO Q6H PRN PRN Reason: Heartburn Last Admin: 08/14/23 22:28 Dose: 750 mg Documented By: RANDY Comments: given for c/o heartburn Docusate Sodium (Docusate Sodium 100 Mg Capsule) 100 mg PO BID PRN PRN Reason: Constipation Glucose (Glucose Gel 15 Gm Gel..Gram.) 15 gm PO Q15M PRN; Protocol PRN Reason: per Hypoglycemia Standing Ord. Dextrose (D10) 250 mls @ 750 mls/hr IV Q15M PRN PRN Reason: per Hypoglycemia Standing Ord. Insulin Human Lispro (Insulin Lispro 100 Unit/Ml 3 Ml Vial) 0 unit SUBCUT QIDACHS [facility]; Protocol Last Admin: 09/11/23 11:17 Dose: Not Given Documented By: ORION Non-Admin Reason: No Insulin Coverage Lidocaine (Lidocaine 4 % Patch Adh..Patch) 1 patch TRANSDERMA DAILY [facility]; Protocol Last Admin: 09/11/23 08:30 Dose: 1 patch Documented By: ORION Prochlorperazine Edisylate (Prochlorperazine Edisylate 10 Mg/2 Ml Vial) 10 mg IVPUSH Q4H PRN PRN Reason: Nausea and Vomiting Last Admin: 09/11/23 14:37 Dose: 10 mg Documented By: ORION Rivaroxaban (Rivaroxaban 20 Mg Tablet) 20 mg PO DAILY [facility] Last Admin: 09/11/23 08:30 Dose: 20 mg Documented By: ORION Sodium Chloride (0.9 % Sodium Chloride Flush 3 Ml Syringe) 3 ml IVFLUSH QSHIFT [facility] Last Admin: 09/11/23 14:44 Dose: Not Given Documented By: ORION Non-Admin Reason: Duplicate Order Sodium Chloride (Sodium Chloride 0.65 % Nasal 44 Ml Sprbtl) 1 spray NOSTRIL-B Q1H PRN PRN Reason: nasal dryness Sodium Chloride (0.9 % Sodium Chloride Flush 10 Ml Syringe) 5 ml IVFLUSH TID [facility] Last Admin: 09/11/23 14:42 Dose: 5 ml Documented By: ORION Labs 08/26/23 06:47 09/11/23 05:40 Labs: Laboratory Results - last 24 hr 09/10/23 09/10/23 09/11/23 16:10 19:34 05:40 Hold Purple Top SEE NOTE Anion Gap 13 Estim Creat Clear Calc 217.9 Estimated GFR > 60 POC Glucose 122 H 140 H Random Glucose 132 H Calcium 8.6 Phosphorus 3.5 Magnesium 1.7 Albumin 2.9 L Triglycerides 143 09/11/23 09/11/23 07:02 11:03 Hold Purple Top Anion Gap Estim Creat Clear Calc Estimated GFR POC Glucose 148 H 140 H Random Glucose Calcium Phosphorus Magnesium Albumin Triglycerides Procedures Date of Service Date of Service: 09/11/23 Progress Note: A&P Assessment and plan (1) Status post small bowel resection: Status: Acute Plan No acute surgical issues at this time. Continue current plan. Time Spent With Patient Time: Total time managing care of this patient today ____ minutes. Quality Stroke Does the patient have a stroke diagnosis?: No VTE Prior VTE?: No VTE Risk Level:: Medical - moderate - high VTE Device Contraindication: Treatment Not Indicated VTE Drug Contraindication: N/A - Med Ordered
[2023-09-11 15:31] VITALS: BP 107/69; PULSE 99; RESP 17; TEMP 36.6; O2SAT 97
--- NOTE | 2023-09-11 16:00 | PC.NURSE ---
Late Entry: Pt vomited yesterday. During episode he vomited on his PICC line dressing, soiling dressing. This journalists and other writers changed PICC Dressing via library technical assistant. Pt tolerated well.
[2023-09-11 16:23] LABS: Glucose, Whole Blood 149 mg/dL (60-115)
[2023-09-11 19:53] LABS: Glucose, Whole Blood 141 mg/dL (60-115)
[2023-09-11 20:00] VITALS: BP 132/92; PULSE 102; RESP 20; TEMP 36.7; O2SAT 95
[2023-09-12 03:42] VITALS: BP 94/71; PULSE 100; RESP 18; TEMP 36; O2SAT 96
[2023-09-12 07:28] VITALS: BP 113/76; PULSE 101; RESP 18; TEMP 36.4; O2SAT 99
[2023-09-12 07:31] LABS: Albumin Level 2.9 g/dL (3.5-5.0); Magnesium 1.7 mg/dL (1.6-2.6); Phosphorus 3.3 mg/dL (2.7-4.5); Triglycerides 115 mg/dL (<150)
[2023-09-12 07:32] LABS: Anion Gap 14 (12-20); Blood Urea Nitrogen 14 mg/dL (9-16); Calcium 8.3 mg/dL (8.4-10.2); Carbon Dioxide 24 mmol/L (22-29); Chloride 104 mmol/L (96-108); Creatinine Clr Calc Pharmacy 217.9; Estimated Glomerular Filt Rate > 60; Glucose Random 124 mg/dL (60-115); Potassium 3.5 mmol/L (3.3-5.1); Sodium 138 mmol/L (135-145)
[2023-09-12 08:08] LABS: Glucose, Whole Blood 114 mg/dL (60-115)
[2023-09-12] MEDS: 0.9 % Sodium Chloride Flush 10 ML SYRINGE 5 ML IVFLUSH ×3 (09:06→22:50)
[2023-09-12] MEDS: Lidocaine 4 % Patch ADH..PATCH 1 PATCH TRANSDERMA (09:07)
[2023-09-12] MEDS: Rivaroxaban 20 MG TABLET PO (09:07)
[2023-09-12 11:22] LABS: Glucose, Whole Blood 135 mg/dL (60-115)
[2023-09-12 11:52] VITALS: BMI 36.2
--- NOTE | 2023-09-12 12:03 | P.PNIM_ITS ---
Subjective Subjective Date of Service: 09/12/23 Interval History: No further vomiting since yesterday. Likely related to increased amounts of ensure. No acute issues overnight Review of Systems Denies chest pain Denies shortness of breath Denies diarrhea Denies fever chills Admits nausea vomiting Physical Exam 2 Vital Signs: Vital Signs: Last Vital Signs Temp 97.5 F 09/12/23 07:28 Pulse 101 H 09/12/23 07:28 Resp 18 09/12/23 07:28 BP 113/76 09/12/23 07:28 Pulse Ox 99 09/12/23 07:28 O2 Del Method Nasal Cannula 09/12/23 07:28 O2 Flow Rate 2 09/12/23 07:28 FiO2 70 08/11/23 13:00 BMI result Body Mass Index 36.2 Const: Other: Awake alert no acute distress HEENT: Other: NG tube clamped Resp: Other: Clear to auscultation bilaterally no rales rhonchi or wheezes Cardio: Other: No S4; positive S1-S2; no S3 murmurs rubs or gallops GI: Other: Soft nontender nondistended normoactive bowel sounds Extrem: Other: No edema bilaterally Objective Data Active Medications Acetaminophen (Acetaminophen 325 Mg Tablet) 650 mg PO Q6H PRN PRN Reason: Pain, Moderate(Pain Scale 4-6) Last Admin: 09/10/23 23:40 Dose: 650 mg Documented By: ALLISON Bisacodyl (Bisacodyl 10 Mg Supp.Rect) 10 mg [place] DAILY PRN PRN Reason: Constipation Calcium Carbonate (Calcium Carbonate 750 Mg Tab.Chew) 750 mg PO Q6H PRN PRN Reason: Heartburn Last Admin: 08/14/23 22:28 Dose: 750 mg Documented By: RANDY Comments: given for c/o heartburn Docusate Sodium (Docusate Sodium 100 Mg Capsule) 100 mg PO BID PRN PRN Reason: Constipation Glucose (Glucose Gel 15 Gm Gel..Gram.) 15 gm PO Q15M PRN; Protocol PRN Reason: per Hypoglycemia Standing Ord. Dextrose (D10) 250 mls @ 750 mls/hr IV Q15M PRN PRN Reason: per Hypoglycemia Standing Ord. Insulin Human Lispro (Insulin Lispro 100 Unit/Ml 3 Ml Vial) [facility]; Protocol Last Admin: 09/12/23 11:54 Dose: Not Given Documented By: ORION Non-Admin Reason: No Insulin Coverage Lidocaine (Lidocaine 4 % Patch Adh..Patch) 1 patch TRANSDERMA DAILY [facility]; Protocol Last Admin: 09/12/23 09:07 Dose: 1 patch Documented By: ORION Prochlorperazine Edisylate (Prochlorperazine Edisylate 10 Mg/2 Ml Vial) 10 mg IVPUSH Q4H PRN PRN Reason: Nausea and Vomiting Last Admin: 09/11/23 21:58 Dose: 10 mg Documented By: ALLISON Rivaroxaban (Rivaroxaban 20 Mg Tablet) 20 mg PO DAILY [facility] Last Admin: 09/12/23 09:07 Dose: 20 mg Documented By: ORION Sodium Chloride (0.9 % Sodium Chloride Flush 3 Ml Syringe) 3 ml IVFLUSH QSHIFT [facility] Last Admin: 09/12/23 07:06 Dose: Not Given Documented By: ORION Non-Admin Reason: PICC Sodium Chloride (Sodium Chloride 0.65 % Nasal 44 Ml Sprbtl) 1 spray NOSTRIL-B Q1H PRN PRN Reason: nasal dryness Sodium Chloride (0.9 % Sodium Chloride Flush 10 Ml Syringe) 5 ml IVFLUSH TID [facility] Last Admin: 09/12/23 09:06 Dose: 5 ml Documented By: ORION Labs 08/26/23 06:47 09/12/23 05:27 Labs: Laboratory Results - last 24 hr 09/11/23 09/11/23 09/12/23 16:18 19:37 05:27 Hold Purple Top SEE NOTE Anion Gap 14 Estim Creat Clear Calc 217.9 Estimated GFR > 60 POC Glucose 149 H 141 H Random Glucose 124 H Calcium 8.3 L Phosphorus 3.3 Magnesium 1.7 Albumin 2.9 L Triglycerides 115 09/12/23 09/12/23 08:01 11:17 Hold Purple Top Anion Gap Estim Creat Clear Calc Estimated GFR POC Glucose 114 135 H Random Glucose Calcium Phosphorus Magnesium Albumin Triglycerides Assessment and Plan (1) Status post small bowel resection: Status: Acute Assessment and Plan: 53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, 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 daily electrolyte checks for TPN - NGT removed 08/27/23. Started clears 08/28/23. Surgery following- OK for clear diet. Encourage Ensure intake. CT shows contrast passing through despite narrowing at anastomosis -Advanced to full liquids 09/09/23 with good tolerance. Stop TPN today [09/10/23]. Further diet advancement per Surgery. -no further vomiting times 24 hours. 2.L great toe ulcer, neuropathic vs pressure - Arterial studies completely normal. Wound Care consulted, recommend: 1. Turn and Reposition every 2 hours and as needed for patient comfort.? Use pillows or wedges to support off loading positions. 2. Off Load all bony prominences with use of pillows and heel boots if needed.? Apply Preventative foams where needed. ? 3. Monitor for incontinence and moisture control, use barrier creams when needed for prevention and treatment. 4. Provide adequate and supplemental nutrition.? 5. Continue? low air loss mattress Bariatric bed.? 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 6.? Buttock, Sacrum and Coccyx -? Off Load Pressure - Barrier cream twice daily to protect from moisture and friction. 7. Right Ischium - Cleanse with Ph balance wipe, pay dry.? Apply barrier cream, cover with foam dressing.? Change every other day and PRN for soiling. 8. Left Great Toe? - Off Load Pressure? - Cleanse with NS moist gauze, pat dry.? Apply skin prep to periwound.? Use cut to size Durafiber AG cover with foam dressing.? Change every 3 days and PRN. 3.Nocturnal hypoxia/mod-sev SHAVON - CPAP at night per Pulmonology. Upon discharge, will need sleep lab CPAP titration study. 4.Hx DVT/PE - resumed rivaroxaban as per Surgery 5.Guillain-[place] syndrome - stable; on monthly IVIG x5d and due now but would need premedication with prednisone, which would impair wound healing, so deferring for now LMWH Heparin Requires ongoing hospitalization for advancement of diet with supplemental IV fluids (2) Ischemic bowel disease: Status: Acute Quality Stroke Does the patient have a stroke diagnosis?: No VTE Prior VTE?: No VTE Risk Level:: Medical - moderate - high VTE Device Contraindication: Treatment Not Indicated VTE Drug Contraindication: N/A - Med Ordered
[2023-09-12 15:27] VITALS: BP 114/79; PULSE 92; RESP 17; TEMP 36.6; O2SAT 98
[2023-09-12 16:25] LABS: Glucose, Whole Blood 182 mg/dL (60-115)
[2023-09-12 20:00] VITALS: BP 112/77; PULSE 95; RESP 16; TEMP 36.4; O2SAT 96
[2023-09-12 20:45] LABS: Glucose, Whole Blood 143 mg/dL (60-115)
[2023-09-13 03:41] VITALS: BP 119/82; PULSE 97; RESP 20; TEMP 36.5; O2SAT 100
[2023-09-13 07:02] VITALS: BP 120/75; PULSE 85; RESP 18; TEMP 36.3; O2SAT 100
[2023-09-13 07:13] LABS: Glucose, Whole Blood 113 mg/dL (60-115)
[2023-09-13 07:24] LABS: Albumin Level 2.9 g/dL (3.5-5.0); Anion Gap 14 (12-20); Blood Urea Nitrogen 13 mg/dL (9-16); Calcium 8.4 mg/dL (8.4-10.2); Carbon Dioxide 25 mmol/L (22-29); Chloride 102 mmol/L (96-108); Creatinine Clr Calc Pharmacy 177.2; Estimated Glomerular Filt Rate > 60; Glucose Random 124 mg/dL (60-115); Magnesium 1.8 mg/dL (1.6-2.6); Phosphorus 3.2 mg/dL (2.7-4.5); Potassium 3.4 mmol/L (3.3-5.1); Sodium 138 mmol/L (135-145); Triglycerides 102 mg/dL (<150)
--- NOTE | 2023-09-13 08:44 | PM.PNGS ---
Subjective Subjective Date of Service: 09/13/23 Interval history: feels well drinking a lot of clear liquids taking soup from home does not want to take Ensure - he says this makes him nauseous able to eat ice cream passing flatus denies abdl pain Physical Exam Vital Signs: Vital Signs: Last Vital Signs Temp 97.3 F 09/13/23 07:02 Pulse 85 09/13/23 07:02 Resp 18 09/13/23 07:02 BP 120/75 09/13/23 07:02 Pulse Ox 100 09/13/23 07:02 O2 Del Method Nasal Cannula 09/13/23 07:02 O2 Flow Rate 2 09/13/23 07:02 FiO2 70 08/11/23 13:00 BMI result Body Mass Index 36.2 Const: General: comfortable and no acute distress Resp: Effort & Inspection: normal respiratory effort GI: Palpation (GI): Soft to palpation, not firm and nontender Objective Data Active Medications Acetaminophen (Acetaminophen 325 Mg Tablet) 650 mg PO Q6H PRN PRN Reason: Pain, Moderate(Pain Scale 4-6) Last Admin: 09/10/23 23:40 Dose: 650 mg Documented By: ALLISON Bisacodyl (Bisacodyl 10 Mg Supp.Rect) 10 mg [place] DAILY PRN PRN Reason: Constipation Calcium Carbonate (Calcium Carbonate 750 Mg Tab.Chew) 750 mg PO Q6H PRN PRN Reason: Heartburn Last Admin: 08/14/23 22:28 Dose: 750 mg Documented By: RANDY Comments: given for c/o heartburn Docusate Sodium (Docusate Sodium 100 Mg Capsule) 100 mg PO BID PRN PRN Reason: Constipation Glucose (Glucose Gel 15 Gm Gel..Gram.) 15 gm PO Q15M PRN; Protocol PRN Reason: per Hypoglycemia Standing Ord. Dextrose (D10) 250 mls @ 750 mls/hr IV Q15M PRN PRN Reason: per Hypoglycemia Standing Ord. Insulin Human Lispro (Insulin Lispro 100 Unit/Ml 3 Ml Vial) 0 unit SUBCUT QIDACHS [facility]; Protocol Last Admin: 09/13/23 07:23 Dose: Not Given Documented By: COTEMA Non-Admin Reason: No Insulin Coverage Lidocaine (Lidocaine 4 % Patch Adh..Patch) 1 patch TRANSDERMA DAILY [facility]; Protocol Last Admin: 09/12/23 09:07 Dose: 1 patch Documented By: ORION Prochlorperazine Edisylate (Prochlorperazine Edisylate 10 Mg/2 Ml Vial) 10 mg IVPUSH Q4H PRN PRN Reason: Nausea and Vomiting Last Admin: 09/11/23 21:58 Dose: 10 mg Documented By: ALLISON Rivaroxaban (Rivaroxaban 20 Mg Tablet) 20 mg PO DAILY [facility] Last Admin: 09/12/23 09:07 Dose: 20 mg Documented By: ORION Sodium Chloride (0.9 % Sodium Chloride Flush 3 Ml Syringe) 3 ml IVFLUSH QSHIFT [facility] Last Admin: 09/12/23 22:56 Dose: Not Given Documented By: TYREE Non-Admin Reason: pt has picc Sodium Chloride (Sodium Chloride 0.65 % Nasal 44 Ml Sprbtl) 1 spray NOSTRIL-B Q1H PRN PRN Reason: nasal dryness Sodium Chloride (0.9 % Sodium Chloride Flush 10 Ml Syringe) 5 ml IVFLUSH TID [facility] Last Admin: 09/12/23 22:50 Dose: 5 ml Documented By: TYREE Labs 08/26/23 06:47 09/13/23 05:40 Labs: Laboratory Results - last 24 hr 09/12/23 09/12/23 09/12/23 11:17 16:20 20:25 Hold Purple Top Anion Gap Estim Creat Clear Calc Estimated GFR POC Glucose 135 H 182 H 143 H Random Glucose Calcium Phosphorus Magnesium Albumin Triglycerides 09/13/23 09/13/23 05:40 07:00 Hold Purple Top SEE NOTE Anion Gap 14 Estim Creat Clear Calc 177.2 Estimated GFR > 60 POC Glucose 113 Random Glucose 124 H Calcium 8.4 Phosphorus 3.2 Magnesium 1.8 Albumin 2.9 L Triglycerides 102 Procedures Date of Service Date of Service: 09/13/23 Progress Note: A&P Assessment and plan (1) Ischemic bowel disease: Status: Acute Assessment and Plan: S/P resection doing well does not want to take Ensure he is willing to try a different brand taking ice cream off TPN no vomitting passing flatus looks well and comfortable Time Spent With Patient Time: Total time managing care of this patient today ____ minutes. Quality Stroke Does the patient have a stroke diagnosis?: No VTE Prior VTE?: No VTE Risk Level:: Medical - moderate - high VTE Device Contraindication: Treatment Not Indicated VTE Drug Contraindication: N/A - Med Ordered
[2023-09-13] MEDS: 0.9 % Sodium Chloride Flush 10 ML SYRINGE 5 ML IVFLUSH ×2 (08:50→21:44)
[2023-09-13] MEDS: Rivaroxaban 20 MG TABLET PO (08:50)
[2023-09-13] MEDS: Lidocaine 4 % Patch ADH..PATCH 1 PATCH TRANSDERMA (08:50)
[2023-09-13] MEDS: 0.9 % Sodium Chloride Flush 3 ML SYRINGE IVFLUSH (08:50)
[2023-09-13 11:18] LABS: Glucose, Whole Blood 135 mg/dL (60-115)
--- NOTE | 2023-09-13 11:32 | MHC.CLN ---
F/U TPN DISCONTINUED 09/10/23. DIET ADVANCED TO REGULAR ON 09/13/23. PER WOUND RN CONSULT, SKIN WITH DM ULCER TO LEFT GREAT TOE. NO OPEN WOUNDS. PATIENT DISLIKES ENSURE SUPPLEMENT AND DISCONTINUED. PO INTAKE 100% X 2 MEALS (WHEN FULL LIQUID). CONTINUE TO ENCOURAGE PO INTAKE AND PROVIDE FOOD PREFERENCES ABLE.
--- NOTE | 2023-09-13 13:56 | HO.PM.IMPN ---
Subjective Subjective Date of Service: 09/14/23 Interval History: no nausea vomiting Does not like ensure Review of Systems Advised for activity-baseline seems rebound. Denies chest pain shortness of breath or abd pain Physical Exam Vital Signs: Vital Signs: Last Vital Signs Temp 97.3 F 09/13/23 07:02 Pulse 85 09/13/23 07:02 Resp 18 09/13/23 07:02 BP 120/75 09/13/23 07:02 Pulse Ox 100 09/13/23 07:02 O2 Del Method Nasal Cannula 09/13/23 07:02 O2 Flow Rate 2 09/13/23 07:02 FiO2 70 08/11/23 13:00 BMI result Body Mass Index 36.2 Appearance: Alert.? Oriented X3.? cvs: [id number], [id number] . res: clear to auscultation ,no rhonchii or wheezing abd: no rebound or guarding ,soft, benign. Incision clean clean and intact present. ext pulses present , no cyanosis . neuro: axo3 , nonfocal. Objective Data Active Medications Acetaminophen (Acetaminophen 325 Mg Tablet) 650 mg PO Q6H PRN PRN Reason: Pain, Moderate(Pain Scale 4-6) Last Admin: 09/10/23 23:40 Dose: 650 mg Documented By: ALLISON Bisacodyl (Bisacodyl 10 Mg Supp.Rect) 10 mg [place] DAILY PRN PRN Reason: Constipation Calcium Carbonate (Calcium Carbonate 750 Mg Tab.Chew) 750 mg PO Q6H PRN PRN Reason: Heartburn Last Admin: 08/14/23 22:28 Dose: 750 mg Documented By: RANDY Comments: given for c/o heartburn Docusate Sodium (Docusate Sodium 100 Mg Capsule) 100 mg PO BID PRN PRN Reason: Constipation Glucose (Glucose Gel 15 Gm Gel..Gram.) 15 gm PO Q15M PRN; Protocol PRN Reason: per Hypoglycemia Standing Ord. Dextrose (D10) 250 mls @ 750 mls/hr IV Q15M PRN PRN Reason: per Hypoglycemia Standing Ord. Insulin Human Lispro (Insulin Lispro 100 Unit/Ml 3 Ml Vial) 0 unit SUBCUT QIDACHS [facility]; Protocol Last Admin: 09/13/23 11:32 Dose: Not Given Documented By: COTEMA Non-Admin Reason: No Insulin Coverage Lidocaine (Lidocaine 4 % Patch Adh..Patch) 1 patch TRANSDERMA DAILY [facility]; Protocol Last Admin: 09/13/23 08:50 Dose: 1 patch Documented By: DYLAN Prochlorperazine Edisylate (Prochlorperazine Edisylate 10 Mg/2 Ml Vial) 10 mg IVPUSH Q4H PRN PRN Reason: Nausea and Vomiting Last Admin: 09/11/23 21:58 Dose: 10 mg Documented By: ALLISON Rivaroxaban (Rivaroxaban 20 Mg Tablet) 20 mg PO DAILY [facility] Last Admin: 09/13/23 08:50 Dose: 20 mg Documented By: ANNELEMA Sodium Chloride (0.9 % Sodium Chloride Flush 3 Ml Syringe) 3 ml IVFLUSH QSHIFT [facility] Last Admin: 09/13/23 08:50 Dose: 3 ml Documented By: ANNELEMA Sodium Chloride (Sodium Chloride 0.65 % Nasal 44 Ml Sprbtl) 1 spray NOSTRIL-B Q1H PRN PRN Reason: nasal dryness Sodium Chloride (0.9 % Sodium Chloride Flush 10 Ml Syringe) 5 ml IVFLUSH TID [facility] Last Admin: 09/13/23 08:50 Dose: 5 ml Documented By: DYLAN Labs 08/26/23 06:47 09/14/23 05:48 Labs: Laboratory Results - last 24 hr 09/12/23 09/12/23 09/13/23 16:20 20:25 05:40 Hold Purple Top SEE NOTE Anion Gap 14 Estim Creat Clear Calc 177.2 Estimated GFR > 60 POC Glucose 182 H 143 H Random Glucose 124 H Calcium 8.4 Phosphorus 3.2 Magnesium 1.8 Albumin 2.9 L Triglycerides 102 09/13/23 09/13/23 07:00 11:11 Hold Purple Top Anion Gap Estim Creat Clear Calc Estimated GFR POC Glucose 113 135 H Random Glucose Calcium Phosphorus Magnesium Albumin Triglycerides Assessment and Plan (1) Status post small bowel resection: Status: Acute Assessment and Plan: 53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, 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 daily electrolyte checks for TPN - NGT removed 08/27/23. Started clears 08/28/23. Surgery following- OK for clear diet. Encourage Ensure intake. CT shows contrast passing through despite narrowing at anastomosis -Advanced to full liquids 09/09/23 with good tolerance. Stop TPN today [09/10/23]. Further diet advancement per Surgery. -no further vomiting times 24 hours. 2.L great toe ulcer, neuropathic vs pressure - Arterial studies completely normal. Wound Care consulted, recommend: 1. Turn and Reposition every 2 hours and as needed for patient comfort.? Use pillows or wedges to support off loading positions. 2. Off Load all bony prominences with use of pillows and heel boots if needed.? Apply Preventative foams where needed. ? 3. Monitor for incontinence and moisture control, use barrier creams when needed for prevention and treatment. 4. Provide adequate and supplemental nutrition.? 5. Continue? low air loss mattress Bariatric bed.? 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 6.? Buttock, Sacrum and Coccyx -? Off Load Pressure - Barrier cream twice daily to protect from moisture and friction. 7. Right Ischium - Cleanse with Ph balance wipe, pay dry.? Apply barrier cream, cover with foam dressing.? Change every other day and PRN for soiling. 8. Left Great Toe? - Off Load Pressure? - Cleanse with NS moist gauze, pat dry.? Apply skin prep to periwound.? Use cut to size Durafiber AG cover with foam dressing.? Change every 3 days and PRN. 3.Nocturnal hypoxia/mod-sev SHAVON - CPAP at night per Pulmonology. Upon discharge, will need sleep lab CPAP titration study. 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
[2023-09-13 15:18] VITALS: BP 123/66; PULSE 95; RESP 18; TEMP 37.1; O2SAT 98
[2023-09-13 16:52] LABS: Glucose, Whole Blood 126 mg/dL (60-115)
[2023-09-13 19:22] VITALS: BP 117/68; PULSE 99; RESP 18; TEMP 37.6; O2SAT 100
[2023-09-13 20:26] LABS: Glucose, Whole Blood 122 mg/dL (60-115)
[2023-09-13] MEDS: Prochlorperazine Edisylate 10 MG/2 ML VIAL IVPUSH (22:57)
--- NOTE | 2023-09-14 03:20 | PC.NURSE ---
Patient questioning UTI, states some burning when urinating, slight increase temp. Dr Zimmerman notified, urine sample ordered and collected. Results are pending.
[2023-09-14 03:22] LABS: Appearance Urine Cloudy; Color Urine Dark Yellow; Glucose Urine UA Negative (Negative); Leukocyte Esterase Urine Small (1+) (Negative); Nitrite Urine Negative (Negative); PH 5.5 (5.0-9.0); Specific Gravity - Urine 1.025 (1.005-1.025); UMIC TRIGGER UA YES; Urine Blood Negative (Negative); Urine Ketones Negative (Negative); Urine Protein 30 (1+) mg/dL (Neg-Trace)
[2023-09-14 03:30] LABS: Bacteria Urine None Seen (None Seen); Hyaline Casts Urine 0-2 /LPF (0-2); RBC Urine 0-2 /HPF (0-2); WBC Urine 21-50 /HPF (0-5)
[2023-09-14 04:00] VITALS: BP 120/74; PULSE 115; RESP 16; TEMP 36.4; O2SAT 98
[2023-09-14 06:00] VITALS: BMI 79.4
[2023-09-14 07:07] LABS: Albumin Level 2.9 g/dL (3.5-5.0); Anion Gap 13 (12-20); Blood Urea Nitrogen 12 mg/dL (9-16); Calcium 8.2 mg/dL (8.4-10.2); Carbon Dioxide 26 mmol/L (22-29); Chloride 101 mmol/L (96-108); Estimated Glomerular Filt Rate > 60; Glucose Random 144 mg/dL (60-115); Magnesium 1.8 mg/dL (1.6-2.6); Phosphorus 2.8 mg/dL (2.7-4.5); Potassium 3.2 mmol/L (3.3-5.1); Sodium 137 mmol/L (135-145); Triglycerides 91 mg/dL (<150)
[2023-09-14 07:29] VITALS: BP 119/73; PULSE 105; RESP 20; TEMP 36.3; O2SAT 96
[2023-09-14 07:35] LABS: Glucose, Whole Blood 153 mg/dL (60-115)
[2023-09-14] MEDS: Lidocaine 4 % Patch ADH..PATCH 1 PATCH TRANSDERMA (07:41)
[2023-09-14] MEDS: Insulin Lispro 100 UNIT/ML 3 ML VIAL SUBCUT ×3 (07:41→21:57)
[2023-09-14] MEDS: Rivaroxaban 20 MG TABLET PO (07:41)
[2023-09-14] MEDS: 0.9 % Sodium Chloride Flush 3 ML SYRINGE IVFLUSH ×2 (07:42→14:28)
[2023-09-14] MEDS: 0.9 % Sodium Chloride Flush 10 ML SYRINGE 5 ML IVFLUSH ×3 (07:42→19:44)
--- NOTE | 2023-09-14 08:17 | PM.PNGS ---
Subjective Subjective Date of Service: 09/16/23 Interval history: Denies abdominal pain Passing flatus Taking small amounts of regular diet and tolerating so far Physical Exam Vital Signs: Vital Signs: Last Vital Signs Temp 97.3 F 09/14/23 07:29 Pulse 105 H 09/14/23 07:29 Resp 20 09/14/23 07:29 BP 119/73 09/14/23 07:29 Pulse Ox 96 09/14/23 07:29 O2 Del Method Nasal Cannula 09/14/23 07:29 O2 Flow Rate 2 09/14/23 07:29 FiO2 70 08/11/23 13:00 BMI result Body Mass Index 79.4 Const: General: comfortable and no acute distress Resp: Effort & Inspection: normal respiratory effort GI: Palpation (GI): Soft to palpation, not firm and nontender Objective Data Active Medications Acetaminophen (Acetaminophen 325 Mg Tablet) 650 mg PO Q6H PRN PRN Reason: Pain, Moderate(Pain Scale 4-6) Last Admin: 09/10/23 23:40 Dose: 650 mg Documented By: ALLISON Bisacodyl (Bisacodyl 10 Mg Supp.Rect) 10 mg [place] DAILY PRN PRN Reason: Constipation Calcium Carbonate (Calcium Carbonate 750 Mg Tab.Chew) 750 mg PO Q6H PRN PRN Reason: Heartburn Last Admin: 08/14/23 22:28 Dose: 750 mg Documented By: RANDY Comments: given for c/o heartburn Docusate Sodium (Docusate Sodium 100 Mg Capsule) 100 mg PO BID PRN PRN Reason: Constipation Glucose (Glucose Gel 15 Gm Gel..Gram.) 15 gm PO Q15M PRN; Protocol PRN Reason: per Hypoglycemia Standing Ord. Dextrose (D10) 250 mls @ 750 mls/hr IV Q15M PRN PRN Reason: per Hypoglycemia Standing Ord. Insulin Human Lispro (Insulin Lispro 100 Unit/Ml 3 Ml Vial) 0 unit SUBCUT QIDACHS [facility]; Protocol Last Admin: 09/14/23 07:41 Dose: 2 unit Documented By: SALVADOR Lidocaine (Lidocaine 4 % Patch Adh..Patch) 1 patch TRANSDERMA DAILY [facility]; Protocol Last Admin: 09/14/23 07:41 Dose: 1 patch Documented By: SALVADOR Prochlorperazine Edisylate (Prochlorperazine Edisylate 10 Mg/2 Ml Vial) 10 mg IVPUSH Q4H PRN PRN Reason: Nausea and Vomiting Last Admin: 09/13/23 22:57 Dose: 10 mg Documented By: ИВАН Rivaroxaban (Rivaroxaban 20 Mg Tablet) 20 mg PO DAILY [facility] Last Admin: 09/14/23 07:41 Dose: 20 mg Documented By: SALVADOR Sodium Chloride (0.9 % Sodium Chloride Flush 3 Ml Syringe) 3 ml IVFLUSH QSHIFT [facility] Last Admin: 09/14/23 07:42 Dose: 3 ml Documented By: SALVADOR Sodium Chloride (Sodium Chloride 0.65 % Nasal 44 Ml Sprbtl) 1 spray NOSTRIL-B Q1H PRN PRN Reason: nasal dryness Sodium Chloride (0.9 % Sodium Chloride Flush 10 Ml Syringe) 5 ml IVFLUSH TID [facility] Last Admin: 09/14/23 07:42 Dose: 5 ml Documented By: SALVADOR Labs 08/26/23 06:47 09/16/23 06:53 Labs: Laboratory Results - last 24 hr 09/13/23 09/13/23 09/13/23 11:11 16:46 20:19 Hold Purple Top Anion Gap Estim Creat Clear Calc Estimated GFR POC Glucose 135 H 126 H 122 H Random Glucose Calcium Phosphorus Magnesium Albumin Triglycerides Urine Color Urine Appearance Urine pH Ur Specific [place] Urine Protein Urine Glucose (UA) Urine Ketones Urine Blood Urine Nitrite Ur Leukocyte Esterase Urine RBC Urine WBC Ur Squamous Epith Cells Urine Bacteria Hyaline Casts 09/14/23 09/14/23 09/14/23 03:00 05:48 07:28 Hold Purple Top SEE NOTE Anion Gap 13 Estim Creat Clear Calc 247.0 Estimated GFR > 60 POC Glucose 153 H Random Glucose 144 H Calcium 8.2 L Phosphorus 2.8 Magnesium 1.8 Albumin 2.9 L Triglycerides 91 Urine Color Dark Yellow Urine Appearance Cloudy Urine pH 5.5 Ur Specific [place] 1.025 Urine Protein 30 (1+) H Urine Glucose (UA) Negative Urine Ketones Negative Urine Blood Negative Urine Nitrite Negative Ur Leukocyte Esterase Small (1+) H Urine RBC 0-2 Urine WBC 21-50 H Ur Squamous Epith Cells 3-5 Urine Bacteria None Seen Hyaline Casts 0-2 Procedures Date of Service Date of Service: 09/16/23 Progress Note: A&P Assessment and plan (1) Ischemic bowel disease: Status: Acute Assessment and Plan: Status post resection Tolerating diet so far Instructed the patient to take small frequent meals throughout the day instead of 3 big meals Abdominal exam is benign Hopefully he gets to meet his caloric requirements Time Spent With Patient Time: Total time managing care of this patient today ____ minutes. Quality Stroke Does the patient have a stroke diagnosis?: No VTE Prior VTE?: No VTE Risk Level:: Medical - moderate - high VTE Device Contraindication: Treatment Not Indicated VTE Drug Contraindication: N/A - Med Ordered
--- NOTE | 2023-09-14 10:45 | P.PNIM_ITS ---
Subjective Subjective Date of Service: 09/14/23 Interval History: no nausea vomiting,refused ensure Review of Systems Advised for activity-baseline seems rebound. Denies chest pain shortness of breath or abd pain Physical Exam 2 Vital Signs: Vital Signs: Last Vital Signs Temp 97.3 F 09/14/23 07:29 Pulse 105 H 09/14/23 07:29 Resp 20 09/14/23 07:29 BP 119/73 09/14/23 07:29 Pulse Ox 96 09/14/23 07:29 O2 Del Method Nasal Cannula 09/14/23 07:29 O2 Flow Rate 2 09/14/23 07:29 FiO2 70 08/11/23 13:00 BMI result Body Mass Index 79.4 Appearance: Alert.? Oriented X3.? cvs: rrr, [id number] . res: clear to auscultation ,no rhonchii or wheezing abd: no rebound or guarding ,soft, benign. Incision clean clean and intact present. ext pulses present , no cyanosis . neuro: axo3 , nonfocal. Objective Data Active Medications Acetaminophen (Acetaminophen 325 Mg Tablet) 650 mg PO Q6H PRN PRN Reason: Pain, Moderate(Pain Scale 4-6) Last Admin: 09/10/23 23:40 Dose: 650 mg Documented By: ALLISON Bisacodyl (Bisacodyl 10 Mg Supp.Rect) 10 mg [place] DAILY PRN PRN Reason: Constipation Calcium Carbonate (Calcium Carbonate 750 Mg Tab.Chew) 750 mg PO Q6H PRN PRN Reason: Heartburn Last Admin: 08/14/23 22:28 Dose: 750 mg Documented By: RANDY Comments: given for c/o heartburn Docusate Sodium (Docusate Sodium 100 Mg Capsule) 100 mg PO BID PRN PRN Reason: Constipation Glucose (Glucose Gel 15 Gm Gel..Gram.) 15 gm PO Q15M PRN; Protocol PRN Reason: per Hypoglycemia Standing Ord. Dextrose (D10) 250 mls @ 750 mls/hr IV Q15M PRN PRN Reason: per Hypoglycemia Standing Ord. Insulin Human Lispro (Insulin Lispro 100 Unit/Ml 3 Ml Vial) [facility]; Protocol Last Admin: 09/14/23 07:41 Dose: 2 unit Documented By: SALVADOR Lidocaine (Lidocaine 4 % Patch Adh..Patch) 1 patch TRANSDERMA DAILY [facility]; Protocol Last Admin: 09/14/23 07:41 Dose: 1 patch Documented By: SALVADOR Prochlorperazine Edisylate (Prochlorperazine Edisylate 10 Mg/2 Ml Vial) 10 mg IVPUSH Q4H PRN PRN Reason: Nausea and Vomiting Last Admin: 09/13/23 22:57 Dose: 10 mg Documented By: ИВАН Rivaroxaban (Rivaroxaban 20 Mg Tablet) 20 mg PO DAILY [facility] Last Admin: 09/14/23 07:41 Dose: 20 mg Documented By: SALVADOR Sodium Chloride (0.9 % Sodium Chloride Flush 3 Ml Syringe) 3 ml IVFLUSH QSHIFT [facility] Last Admin: 09/14/23 07:42 Dose: 3 ml Documented By: SALVADOR Sodium Chloride (Sodium Chloride 0.65 % Nasal 44 Ml Sprbtl) 1 spray NOSTRIL-B Q1H PRN PRN Reason: nasal dryness Sodium Chloride (0.9 % Sodium Chloride Flush 10 Ml Syringe) 5 ml IVFLUSH TID [facility] Last Admin: 09/14/23 07:42 Dose: 5 ml Documented By: SALVADOR Labs 08/26/23 06:47 09/14/23 05:48 Labs: Laboratory Results - last 24 hr 09/13/23 09/13/23 09/13/23 11:11 16:46 20:19 Hold Purple Top Anion Gap Estim Creat Clear Calc Estimated GFR POC Glucose 135 H 126 H 122 H Random Glucose Calcium Phosphorus Magnesium Albumin Triglycerides Urine Color Urine Appearance Urine pH Ur Specific [place] Urine Protein Urine Glucose (UA) Urine Ketones Urine Blood Urine Nitrite Ur Leukocyte Esterase Urine RBC Urine WBC Ur Squamous Epith Cells Urine Bacteria Hyaline Casts 09/14/23 09/14/23 09/14/23 03:00 05:48 07:28 Hold Purple Top SEE NOTE Anion Gap 13 Estim Creat Clear Calc 247.0 Estimated GFR > 60 POC Glucose 153 H Random Glucose 144 H Calcium 8.2 L Phosphorus 2.8 Magnesium 1.8 Albumin 2.9 L Triglycerides 91 Urine Color Dark Yellow Urine Appearance Cloudy Urine pH 5.5 Ur Specific [place] 1.025 Urine Protein 30 (1+) H Urine Glucose (UA) Negative Urine Ketones Negative Urine Blood Negative Urine Nitrite Negative Ur Leukocyte Esterase Small (1+) H Urine RBC 0-2 Urine WBC 21-50 H Ur Squamous Epith Cells 3-5 Urine Bacteria None Seen Hyaline Casts 0-2 Assessment and Plan (1) Status post small bowel resection: Status: Acute Plan 53yo wheelchair-bound M with Guillain-Colebrook syndrome, 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 daily electrolyte checks for TPN - NGT removed 08/27/23. Started clears 08/28/23. Surgery following- OK for clear diet. Encourage Ensure intake. CT shows contrast passing through despite narrowing at anastomosis -Advanced to full liquids 09/09/23 with good tolerance. Stop TPN today [09/10/23]. Further diet advancement per Surgery. -no further vomiting times 24 hours. 2.L great toe ulcer, neuropathic vs pressure - Arterial studies completely normal. Wound Care consulted, recommend: 1. Turn and Reposition every 2 hours and as needed for patient comfort.? Use pillows or wedges to support off loading positions. 2. Off Load all bony prominences with use of pillows and heel boots if needed.? Apply Preventative foams where needed. ? 3. Monitor for incontinence and moisture control, use barrier creams when needed for prevention and treatment. 4. Provide adequate and supplemental nutrition.? 5. Continue? low air loss mattress Bariatric bed.? Agility called for bed extrusion press adjuster. 6.? Buttock, Sacrum and Coccyx -? Off Load Pressure - Barrier cream twice daily to protect from moisture and friction. 7. Right Ischium - Cleanse with Ph balance wipe, pay dry.? Apply barrier cream, cover with foam dressing.? Change every other day and PRN for soiling. 8. Left Great Toe? - Off Load Pressure? - Cleanse with NS moist gauze, pat dry.? Apply skin prep to periwound.? Use cut to size Durafiber AG cover with foam dressing.? Change every 3 days and PRN. 3.Nocturnal hypoxia/mod-sev SHAVON - CPAP at night per Pulmonology. Upon discharge, will need sleep lab CPAP titration study. 4.Hx DVT/PE - resumed rivaroxaban as per Surgery 5.Guillain-Colebrook syndrome - stable; on monthly IVIG x5d and due now but would need premedication with prednisone, which would impair wound healing, so deferring for now LMWH Heparin Requires ongoing hospitalization for sbo complicated by ischemic bowel + perforation; complicated by prolonged ileus vs anastomotic stenosis from ischemia- will give feeding trail /advancement of diet for toleration/expert follow up and Pt eval. Quality Stroke Does the patient have a stroke diagnosis?: No VTE Prior VTE?: No VTE Risk Level:: Medical - moderate - high VTE Device Contraindication: Treatment Not Indicated VTE Drug Contraindication: N/A - Med Ordered
[2023-09-14 11:20] LABS: Glucose, Whole Blood 161 mg/dL (60-115)
[2023-09-14 15:06] VITALS: BP 134/71; PULSE 100; RESP 18; TEMP 36.7; O2SAT 97
--- NOTE | 2023-09-14 15:12 | HO.WOUND ---
Wound Consult: Follow up 53yr old? Male admitted to [facility] on 08/06/23 19:41? with a complex medical admission.? See progress notes and H&P for detailed history.? Todays follow up is for Agility bed. Patient reports bed arrived wednesday and reports significant increase comfort and easy of mobility. The side bolsters and foot bolster are in place - this bed is set to 5 bars and patient reports comfort may adjust down to 4 for patient comfort however patient requested at this time the bed is comfortable and prefers for it to remain at the current settings. The Extra Long Pulsate bed came equipped with [place] boosting tool with specialty sheets provided. Patient and several staff were provided with a how to tutorial - hospital unit clerk will put out material to educate staff on benefits and how to use [place] . Will follow up on Left great toe wound later this week - direct care team will continue to provide topical dressings. No new topical orders at this time.
[2023-09-14] MEDS: Prochlorperazine Edisylate 10 MG/2 ML VIAL IVPUSH ×2 (15:18→19:44)
[2023-09-14 16:33] LABS: Glucose, Whole Blood 152 mg/dL (60-115)
[2023-09-14 19:37] VITALS: BP 111/72; PULSE 118; RESP 18; TEMP 36.5; O2SAT 94
[2023-09-14 20:33] LABS: Glucose, Whole Blood 168 mg/dL (60-115)
[2023-09-15 02:54] VITALS: BP 115/70; PULSE 100; RESP 18; TEMP 36.5; O2SAT 97
[2023-09-15 06:25] LABS: Albumin Level 2.8 g/dL (3.5-5.0); Anion Gap 14 (12-20); Blood Urea Nitrogen 12 mg/dL (9-16); Calcium 8.1 mg/dL (8.4-10.2); Carbon Dioxide 23 mmol/L (22-29); Chloride 102 mmol/L (96-108); Creatinine Clr Calc Pharmacy 284.8; Estimated Glomerular Filt Rate > 60; Glucose Random 147 mg/dL (60-115); Magnesium 1.6 mg/dL (1.6-2.6); Phosphorus 2.4 mg/dL (2.7-4.5); Potassium 2.7 mmol/L (3.3-5.1); Sodium 136 mmol/L (135-145); Triglycerides 83 mg/dL (<150)
[2023-09-15 07:02] VITALS: BP 113/73; PULSE 112; RESP 18; TEMP 37.4; O2SAT 94
[2023-09-15 07:13] LABS: Glucose, Whole Blood 161 mg/dL (60-115)
[2023-09-15] MEDS: 0.9 % Sodium Chloride Flush 3 ML SYRINGE IVFLUSH ×2 (07:39→14:16)
[2023-09-15] MEDS: Insulin Lispro 100 UNIT/ML 3 ML VIAL SUBCUT ×2 (07:39→17:04)
[2023-09-15] MEDS: 0.9 % Sodium Chloride Flush 10 ML SYRINGE 5 ML IVFLUSH ×3 (07:39→21:44)
[2023-09-15] MEDS: Rivaroxaban 20 MG TABLET PO (07:39)
[2023-09-15] MEDS: Lidocaine 4 % Patch ADH..PATCH 1 PATCH TRANSDERMA (07:39)
[2023-09-15] MEDS: Potassium Chloride/H20 10 MEQ/100 ML PIGGYBACK 100 MEQ IV ×2 (08:06→10:23)
[2023-09-15] MEDS: Alteplase Cath Clear 2 MG/2 ML VIAL 1 MG INTRACATH (09:21)
--- NOTE | 2023-09-15 09:36 | MHC.CLN ---
F/U DIET ADVANCED TO REGULAR ON 09/13/23. APPEARS TO BE TOLERATING DIET. INTAKE X 2 DAYS RECORDED 75-100%. PER WOUND RN CONSULT, SKIN WITH DM ULCER TO LEFT GREAT TOE. NO OPEN WOUNDS. PATIENT DISLIKES ENSURE SUPPLEMENT AND DISCONTINUED. WEIGHT DISCREPANCIES NOTED. WEIGHT ON 09/1327=505 KG. VNFUUY=504.3KG ON 09/11 AND 151KG ON 09/07. SHOWS ERROR IN WEIGHT WITH 43# LOSS IN SHORT TIMEFRAME. CONTINUE TO ENCOURAGE PO INTAKE AND PROVIDE FOOD PREFERENCES ABLE.
--- NOTE | 2023-09-15 09:42 | PM.PNGS ---
Subjective Subjective Date of Service: 09/15/23 Interval history: Was able to tolerate regular diet mostly Describes small amount of emesis yesterday but no further vomiting Continues to pass flatus Denies abdominal pain Physical Exam Vital Signs: Vital Signs: Last Vital Signs Temp 99.3 F 09/15/23 07:02 Pulse 112 H 09/15/23 07:02 Resp 18 09/15/23 07:02 BP 113/73 09/15/23 07:02 Pulse Ox 94 09/15/23 07:02 O2 Del Method Room Air 09/15/23 07:02 O2 Flow Rate 2 09/14/23 07:29 FiO2 70 08/11/23 13:00 BMI result Body Mass Index 79.4 Const: General: comfortable and no acute distress Cardio: Rhythm: regular rhythm GI: Palpation (GI): Soft to palpation, not firm and nontender Objective Data Active Medications Acetaminophen (Acetaminophen 325 Mg Tablet) 650 mg PO Q6H PRN PRN Reason: Pain, Moderate(Pain Scale 4-6) Last Admin: 09/10/23 23:40 Dose: 650 mg Documented By: ALLISON Bisacodyl (Bisacodyl 10 Mg Supp.Rect) 10 mg [place] DAILY PRN PRN Reason: Constipation Calcium Carbonate (Calcium Carbonate 750 Mg Tab.Chew) 750 mg PO Q6H PRN PRN Reason: Heartburn Last Admin: 08/14/23 22:28 Dose: 750 mg Documented By: RANDY Comments: given for c/o heartburn Docusate Sodium (Docusate Sodium 100 Mg Capsule) 100 mg PO BID PRN PRN Reason: Constipation Glucose (Glucose Gel 15 Gm Gel..Gram.) 15 gm PO Q15M PRN; Protocol PRN Reason: per Hypoglycemia Standing Ord. Dextrose (D10) 250 mls @ 750 mls/hr IV Q15M PRN PRN Reason: per Hypoglycemia Standing Ord. Potassium Chloride (Potassium Chloride/H20) 10 meq in 100 mls @ 100 mls/hr IV Q1H [facility] Stop: 09/15/23 09:44 Last Admin: 09/15/23 08:06 Dose: 100 mls/hr Documented By: SALVADOR Insulin Human Lispro (Insulin Lispro 100 Unit/Ml 3 Ml Vial) 0 unit SUBCUT QIDACHS [facility]; Protocol Last Admin: 09/15/23 07:39 Dose: 2 unit Documented By: SALVADOR Lidocaine (Lidocaine 4 % Patch Adh..Patch) 1 patch TRANSDERMA DAILY [facility]; Protocol Last Admin: 09/15/23 07:39 Dose: 1 patch Documented By: SALVADOR Prochlorperazine Edisylate (Prochlorperazine Edisylate 10 Mg/2 Ml Vial) 10 mg IVPUSH Q4H PRN PRN Reason: Nausea and Vomiting Last Admin: 09/14/23 19:44 Dose: 10 mg Documented By: LYSJamison Rivaroxaban (Rivaroxaban 20 Mg Tablet) 20 mg PO DAILY [facility] Last Admin: 09/15/23 07:39 Dose: 20 mg Documented By: SALVADOR Sodium Chloride (0.9 % Sodium Chloride Flush 3 Ml Syringe) 3 ml IVFLUSH QSHIFT [facility] Last Admin: 09/15/23 07:39 Dose: 3 ml Documented By: SALVADOR Sodium Chloride (Sodium Chloride 0.65 % Nasal 44 Ml Sprbtl) 1 spray NOSTRIL-B Q1H PRN PRN Reason: nasal dryness Sodium Chloride (0.9 % Sodium Chloride Flush 10 Ml Syringe) 5 ml IVFLUSH TID [facility] Last Admin: 09/15/23 07:39 Dose: 5 ml Documented By: SALVADOR Labs 08/26/23 06:47 09/15/23 05:19 Labs: Laboratory Results - last 24 hr 09/14/23 09/14/23 09/14/23 11:08 16:26 20:21 Hold Purple Top Anion Gap Estim Creat Clear Calc Estimated GFR POC Glucose 161 H 152 H 168 H Random Glucose Calcium Phosphorus Magnesium Albumin Triglycerides 09/15/23 09/15/23 05:19 07:04 Hold Purple Top SEE NOTE Anion Gap 14 Estim Creat Clear Calc 284.8 Estimated GFR > 60 POC Glucose 161 H Random Glucose 147 H Calcium 8.1 L Phosphorus 2.4 L Magnesium 1.6 Albumin 2.8 L Triglycerides 83 Procedures Date of Service Date of Service: 09/15/23 Progress Note: A&P Assessment and plan (1) Ischemic bowel disease: Status: Acute Assessment and Plan: Status post resection of small bowel Able to tolerate regular diet for the most part but had small amount of emesis Instructed patient to take small frequent meals throughout the day instead of big meals Exam remains benign Patient looks well Time Spent With Patient Time: Total time managing care of this patient today ____ minutes. Quality Stroke Does the patient have a stroke diagnosis?: No VTE Prior VTE?: No VTE Risk Level:: Medical - moderate - high VTE Device Contraindication: Treatment Not Indicated VTE Drug Contraindication: N/A - Med Ordered
[2023-09-15 11:09] LABS: Glucose, Whole Blood 149 mg/dL (60-115)
--- NOTE | 2023-09-15 11:27 | HO.WOUND ---
Wound Consult: Follow up 53yr old? [place] [facility] [place]06[place] 19:41? with a complex medical admission.? See progress notes and H&P for detailed history.? Wound consult follow up for Left Great Toe Wound.? Patient agreeable to assessment and photo documentation.? Of note patient continues to report bed comfort with Agility Extra Long Bed with bolsters and [place]. Left Great Toe assessment 09/08/23 Initial Assessment 09/10/23 Assessment 09/15/23 Assessment Todays Assessment Previously discussed case with Dr. Chase from the Outpatient [facility]ound [facility] - see previous noted - Primary Etiology will remain Neuropathic. Todays assessment shows decrease in size overall but concern for stalled wound bed.The central area probed over thin tissue covering bone bone is not frankly exposed but it very close to surface. Patient and direct care team educated on importance of not resting toe on edge of bed - reports understanding. [place] demonstration provided for staff. Assessed for less adherent yellow slough however over all wound bed is pale in color. Recommend Santyl to be started to expedite enzymatic debridement of wound bed. TT to Dr. Reid. Etiology: ?Neuropathic wound Measurements: 1cm x 1cm x 0.3cm Wound Bed: moist marbled wound bed of pink and yellow slough - decrease in size overall but concern for stalled wound bed.The central area probed over thin tissue covering bone bone is not frankly exposed but it very close to surface Drainage / Odor: scant yellow drainage? - no odor Edges: ? well defined and hypopigmented not macerated Joy wound: ? Dry and callused - No Induration, Fluctuance or Warmth noted 2nd toe noted for dry dark pigmentation - foot is cool to touch Pain: denies pain reports neuropathy Goals of Treatment: ? witch to Santly for enzymatic debridement recommend follow up with out patient wound clinic at time of discharge Inpatient wound care nurse will continue to follow. Recommendations: 1. Turn and Reposition every 2 hours and as needed for patient comfort.? Use pillows or wedges to support off loading positions. 2. Off Load all bony prominences with use of pillows and heel boots if needed.? Apply Preventative foams where needed. ? 3. Monitor for incontinence and moisture control, use barrier creams when needed for prevention and treatment. 4. Provide adequate and supplemental nutrition.? 5. Continue? low air loss mattress Bariatric bed.? Agility called for bed court registry officer. 6.? Buttock, Sacrum and Coccyx -? Off Load Pressure - Barrier cream twice daily to protect from moisture and friction. 7. Left Great Toe? - Off Load Pressure? - Cleanse with NS moist gauze, pat dry.? Apply skin prep to periwound.?Apply thick layer of Santyl to entire wound bed, cover with gauze, secure foam dressing, change Daily. Recommend follow up out patient Wound Clinic at [address] [place] [id number] and to call for an appointment at time of discharge. [phone].? Re-consult wound care Nurse for wound deterioration or wound changes.
[2023-09-15 11:32] LABS: Anion Gap 12 (12-20); Blood Urea Nitrogen 13 mg/dL (9-16); Calcium 7.8 mg/dL (8.4-10.2); Carbon Dioxide 24 mmol/L (22-29); Chloride 103 mmol/L (96-108); Creatinine Clr Calc Pharmacy 277.1; Estimated Glomerular Filt Rate > 60; Glucose Random 155 mg/dL (60-115); Sodium 136 mmol/L (135-145)
[2023-09-15 11:34] LABS: Magnesium 1.4 mg/dL (1.6-2.6)
--- NOTE | 2023-09-15 12:01 | HO.PM.IMPN ---
Subjective Subjective Date of Service: 09/15/23 Interval History: hypokalemia Review of Systems low po intake no abd pain or fever or chills Physical Exam Vital Signs: Vital Signs: Last Vital Signs Temp 99.3 F 09/15/23 07:02 Pulse 112 H 09/15/23 07:02 Resp 18 09/15/23 07:02 BP 113/73 09/15/23 07:02 Pulse Ox 94 09/15/23 07:02 O2 Del Method Room Air 09/15/23 07:02 O2 Flow Rate 2 09/14/23 07:29 FiO2 70 08/11/23 13:00 BMI result Body Mass Index 79.4 Appearance: Alert.? Oriented X3.? cvs: [id number], [id number] . res: clear to auscultation ,no rhonchii or wheezing abd: no rebound or guarding ,soft, benign. Incision clean clean and intact present. ext pulses present , no cyanosis . neuro: axo3 , nonfocal. Objective Data Active Medications Acetaminophen (Acetaminophen 325 Mg Tablet) 650 mg PO Q6H PRN PRN Reason: Pain, Moderate(Pain Scale 4-6) Last Admin: 09/10/23 23:40 Dose: 650 mg Documented By: ALLISON Bisacodyl (Bisacodyl 10 Mg Supp.Rect) 10 mg [place] DAILY PRN PRN Reason: Constipation Calcium Carbonate (Calcium Carbonate 750 Mg Tab.Chew) 750 mg PO Q6H PRN PRN Reason: Heartburn Last Admin: 08/14/23 22:28 Dose: 750 mg Documented By: RANDY Comments: given for c/o heartburn Collagenase (Collagenase Clostridium Hist. 30 Gm Tube) 1 appl TOPICAL DAILY [facility]; Protocol Docusate Sodium (Docusate Sodium 100 Mg Capsule) 100 mg PO BID PRN PRN Reason: Constipation Glucose (Glucose Gel 15 Gm Gel..Gram.) 15 gm PO Q15M PRN; Protocol PRN Reason: per Hypoglycemia Standing Ord. Dextrose (D10) 250 mls @ 750 mls/hr IV Q15M PRN PRN Reason: per Hypoglycemia Standing Ord. Insulin Human Lispro (Insulin Lispro 100 Unit/Ml 3 Ml Vial) 0 unit SUBCUT QIDACHS [facility]; Protocol Last Admin: 09/15/23 11:22 Dose: Not Given Documented By: SALVADOR Non-Admin Reason: No Insulin Coverage Lidocaine (Lidocaine 4 % Patch Adh..Patch) 1 patch TRANSDERMA DAILY [facility]; Protocol Last Admin: 09/15/23 07:39 Dose: 1 patch Documented By: SALVADOR Prochlorperazine Edisylate (Prochlorperazine Edisylate 10 Mg/2 Ml Vial) 10 mg IVPUSH Q4H PRN PRN Reason: Nausea and Vomiting Last Admin: 09/14/23 19:44 Dose: 10 mg Documented By: LYSJamison Rivaroxaban (Rivaroxaban 20 Mg Tablet) 20 mg PO DAILY [facility] Last Admin: 09/15/23 07:39 Dose: 20 mg Documented By: SALVADOR Sodium Chloride (0.9 % Sodium Chloride Flush 3 Ml Syringe) 3 ml IVFLUSH QSHIFT [facility] Last Admin: 09/15/23 07:39 Dose: 3 ml Documented By: SALVADOR Sodium Chloride (Sodium Chloride 0.65 % Nasal 44 Ml Sprbtl) 1 spray NOSTRIL-B Q1H PRN PRN Reason: nasal dryness Sodium Chloride (0.9 % Sodium Chloride Flush 10 Ml Syringe) 5 ml IVFLUSH TID [facility] Last Admin: 09/15/23 07:39 Dose: 5 ml Documented By: SALVADOR Labs 08/26/23 06:47 09/15/23 11:10 Labs: Laboratory Results - last 24 hr 09/14/23 09/14/23 09/15/23 16:26 20:21 05:19 Hold Purple Top SEE NOTE Anion Gap 14 Estim Creat Clear Calc 284.8 Estimated GFR > 60 POC Glucose 152 H 168 H Random Glucose 147 H Calcium 8.1 L Phosphorus 2.4 L Magnesium 1.6 Albumin 2.8 L Triglycerides 83 09/15/23 09/15/23 09/15/23 07:04 11:02 11:10 Hold Purple Top Anion Gap 12 Estim Creat Clear Calc 277.1 Estimated GFR > 60 POC Glucose 161 H 149 H Random Glucose 155 H Calcium 7.8 L Phosphorus Magnesium 1.4 L* Albumin Triglycerides Microbiology Microbiology Results: Microbiology 09/14/23 16:48 Urine Culture - Preliminary Urine clean catch - Clean Catch Midstream Culture in progress. 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 daily electrolyte checks for TPN - NGT removed 08/27/23. Started clears 08/28/23. Surgery following- OK for clear diet. Encourage Ensure intake. CT shows contrast passing through despite narrowing at anastomosis -Advanced to full liquids 09/09/23 with good tolerance. Stop TPN today [09/10/23]. Further diet advancement per Surgery. -no further vomiting times 24 hours. L great toe ulcer, neuropathic vs pressure - Arterial studies completely normal. Wound Care consulted, recommend: 1. Turn and Reposition every 2 hours and as needed for patient comfort.? Use pillows or wedges to support off loading positions. 2. Off Load all bony prominences with use of pillows and heel boots if needed.? Apply Preventative foams where needed. ? 3. Monitor for incontinence and moisture control, use barrier creams when needed for prevention and treatment. 4. Provide adequate and supplemental nutrition.? 5. Continue? low air loss mattress Bariatric bed.? [employer] called for bed telephone clerk. 6.? Buttock, Sacrum and Coccyx -? Off Load Pressure - Barrier cream twice daily to protect from moisture and friction. 7. Right Ischium - Cleanse with Ph balance wipe, pay dry.? Apply barrier cream, cover with foam dressing.? Change every other day and PRN for soiling. 8. Left Great Toe? - Off Load Pressure? - Cleanse with NS moist gauze, pat dry.? Apply skin prep to periwound.? Use cut to size Durafiber AG cover with foam dressing.? Change every 3 days and PRN. Nocturnal hypoxia/mod-sev SHAVON - CPAP at night per Pulmonology. Upon discharge, will need sleep lab CPAP titration study. Hx DVT/PE - resumed rivaroxaban as per Surgery Guillain-Sorrento syndrome - stable; on monthly IVIG x5d and due now but would need premedication with prednisone, which would impair wound healing, so deferring for now. Hypokalemia /hypomagnesemia: given po and iv replacements continue bmp and magnesium . LMWH Heparin Requires ongoing hospitalization for sbo complicated by ischemic bowel + perforation; complicated by prolonged ileus vs anastomotic stenosis from ischemia- will give feeding trail /advancement of diet for toleration/expert follow up and Pt eval. Quality Stroke Does the patient have a stroke diagnosis?: No VTE Prior VTE?: No VTE Risk Level:: Medical - moderate - high VTE Device Contraindication: Treatment Not Indicated VTE Drug Contraindication: N/A - Med Ordered
[2023-09-15] MEDS: Magnesium Sulfate/H2O 2 GM/50 ML PIGGYBACK IV (12:38)
--- NOTE | 2023-09-15 13:32 | MHC.CM.PN ---
PER MD ROUNDS PATIENT IS NOT MEDICALLY CLEARED FOR DC. NO CHANGE TO DC PLAN. CM WILL CONTINUE TO FOLLOW.
[2023-09-15] MEDS: Collagenase Clostridium Hist. 30 GM TUBE 1 APPL TOPICAL (13:58)
[2023-09-15 15:06] VITALS: BP 102/78; PULSE 105; RESP 18; TEMP 37.1; O2SAT 97
[2023-09-15 16:12] LABS: Glucose, Whole Blood 160 mg/dL (60-115)
[2023-09-15 19:59] LABS: Glucose, Whole Blood 149 mg/dL (60-115)
[2023-09-15 20:00] VITALS: BP 129/87; PULSE 106; RESP 20; TEMP 36.2; O2SAT 98
[2023-09-15] MEDS: Acetaminophen 325 MG TABLET 650 MG PO (22:59)
[2023-09-16] MEDS: Prochlorperazine Edisylate 10 MG/2 ML VIAL IVPUSH ×2 (00:57→21:09)
[2023-09-16 03:09] VITALS: BP 111/73; PULSE 105; RESP 20; TEMP 36.3; O2SAT 99
[2023-09-16] MEDS: Acetaminophen 325 MG TABLET 650 MG PO (05:13)
[2023-09-16 05:57] VITALS: BMI 35.6
[2023-09-16 06:54] VITALS: BP 119/72; PULSE 101; RESP 17; TEMP 36.1; O2SAT 97
[2023-09-16 07:08] LABS: Glucose, Whole Blood 158 mg/dL (60-115)
[2023-09-16 07:26] LABS: Albumin Level 2.8 g/dL (3.5-5.0); Anion Gap 15 (12-20); Blood Urea Nitrogen 15 mg/dL (9-16); Calcium 8.2 mg/dL (8.4-10.2); Carbon Dioxide 23 mmol/L (22-29); Chloride 102 mmol/L (96-108); Creatinine Clr Calc Pharmacy 166.4; Estimated Glomerular Filt Rate > 60; Glucose Random 148 mg/dL (60-115); Phosphorus 2.8 mg/dL (2.7-4.5); Sodium 137 mmol/L (135-145); Triglycerides 109 mg/dL (<150)
[2023-09-16 07:30] LABS: Potassium 2.8 mmol/L (3.3-5.1)
[2023-09-16] MEDS: Potassium Chloride ER 10 MEQ TABLET.ER PO (08:06)
[2023-09-16] MEDS: Potassium Chloride ER 20 MEQ TAB.ER.PRT PO ×2 (08:06)
[2023-09-16] MEDS: Rivaroxaban 20 MG TABLET PO (08:06)
[2023-09-16] MEDS: Insulin Lispro 100 UNIT/ML 3 ML VIAL SUBCUT (08:06)
[2023-09-16] MEDS: 0.9 % Sodium Chloride Flush 10 ML SYRINGE 5 ML IVFLUSH ×2 (08:07→22:34)
[2023-09-16] MEDS: 0.9 % Sodium Chloride Flush 3 ML SYRINGE IVFLUSH (08:07)
[2023-09-16] MEDS: Lidocaine 4 % Patch ADH..PATCH 1 PATCH TRANSDERMA (08:08)
[2023-09-16] MEDS: Collagenase Clostridium Hist. 30 GM TUBE 1 APPL TOPICAL (08:11)
--- NOTE | 2023-09-16 08:12 | P.PNGS_ITS ---
Subjective Subjective Date of Service: 09/17/23 Interval history: says he has been taking small amounts of solids says he feels well passing flatus, BMs denies abd pain Physical Exam 2 Vital Signs: Vital Signs: Last Vital Signs Temp 96.9 F 09/16/23 06:54 Pulse 101 H 09/16/23 06:54 Resp 17 09/16/23 06:54 BP 119/72 09/16/23 06:54 Pulse Ox 97 09/16/23 06:54 O2 Del Method Room Air 09/16/23 06:54 O2 Flow Rate 2 09/14/23 07:29 FiO2 70 08/11/23 13:00 BMI result Body Mass Index 35.6 Const: General: comfortable and no acute distress Resp: Effort & Inspection: normal respiratory effort GI: Palpation (GI): Soft to palpation, not firm and nontender Objective Data Active Medications Acetaminophen (Acetaminophen 325 Mg Tablet) 650 mg PO Q6H PRN PRN Reason: Pain, Moderate(Pain Scale 4-6) Last Admin: 09/16/23 05:13 Dose: 650 mg Documented By: BG Bisacodyl (Bisacodyl 10 Mg Supp.Rect) 10 mg [place] DAILY PRN PRN Reason: Constipation Calcium Carbonate (Calcium Carbonate 750 Mg Tab.Chew) 750 mg PO Q6H PRN PRN Reason: Heartburn Last Admin: 08/14/23 22:28 Dose: 750 mg Documented By: RANDY Comments: given for c/o heartburn Collagenase (Collagenase Clostridium Hist. 30 Gm Tube) 1 appl TOPICAL DAILY [facility]; Protocol Last Admin: 09/16/23 08:11 Dose: 1 appl Documented By: SHERRI Docusate Sodium (Docusate Sodium 100 Mg Capsule) 100 mg PO BID PRN PRN Reason: Constipation Glucose (Glucose Gel 15 Gm Gel..Gram.) 15 gm PO Q15M PRN; Protocol PRN Reason: per Hypoglycemia Standing Ord. Dextrose (D10) 250 mls @ 750 mls/hr IV Q15M PRN PRN Reason: per Hypoglycemia Standing Ord. Insulin Human Lispro (Insulin Lispro 100 Unit/Ml 3 Ml Vial) 0 unit SUBCUT QIDACHS [facility]; Protocol Last Admin: 09/16/23 08:06 Dose: 2 unit Documented By: SHERRI Lidocaine (Lidocaine 4 % Patch Adh..Patch) 1 patch TRANSDERMA DAILY [facility]; Protocol Last Admin: 09/16/23 08:08 Dose: 1 patch Documented By: SHERRI Prochlorperazine Edisylate (Prochlorperazine Edisylate 10 Mg/2 Ml Vial) 10 mg IVPUSH Q4H PRN PRN Reason: Nausea and Vomiting Last Admin: 09/16/23 00:57 Dose: 10 mg Documented By: BG Rivaroxaban (Rivaroxaban 20 Mg Tablet) 20 mg PO DAILY [facility] Last Admin: 09/16/23 08:06 Dose: 20 mg Documented By: SHERRI Sodium Chloride (0.9 % Sodium Chloride Flush 3 Ml Syringe) 3 ml IVFLUSH QSHIFT [facility] Last Admin: 09/16/23 08:07 Dose: 3 ml Documented By: SHERRI Sodium Chloride (Sodium Chloride 0.65 % Nasal 44 Ml Sprbtl) 1 spray NOSTRIL-B Q1H PRN PRN Reason: nasal dryness Sodium Chloride (0.9 % Sodium Chloride Flush 10 Ml Syringe) 5 ml IVFLUSH TID [facility] Last Admin: 09/16/23 08:07 Dose: 5 ml Documented By: SHERRI Labs 08/26/23 06:47 09/17/23 05:25 Labs: Laboratory Results - last 24 hr 09/15/23 09/15/23 09/15/23 11:02 11:10 16:07 Hold Purple Top Anion Gap 12 Estim Creat Clear Calc 277.1 Estimated GFR > 60 POC Glucose 149 H 160 H Random Glucose 155 H Calcium 7.8 L Phosphorus Magnesium 1.4 L* Albumin Triglycerides 09/15/23 09/16/23 09/16/23 19:54 06:53 07:00 Hold Purple Top SEE NOTE Anion Gap 15 Estim Creat Clear Calc 166.4 Estimated GFR > 60 POC Glucose 149 H 158 H Random Glucose 148 H Calcium 8.2 L Phosphorus 2.8 Magnesium 2.0 Albumin 2.8 L Triglycerides 109 Microbiology Microbiology Results: Microbiology 09/14/23 16:48 Urine Culture - Preliminary Urine clean catch - Clean Catch Midstream Culture in progress. Procedures Date of Service Date of Service: 09/17/23 Progress Note: A&P Assessment and plan (1) Ischemic bowel disease: Status: Acute Assessment and Plan: clinically doing well advised on small frequent meals PT exam remains benign he says he wants to go back home on discharge Time Spent With Patient Time: Total time managing care of this patient today ____ minutes. Quality Stroke Does the patient have a stroke diagnosis?: No VTE Prior VTE?: No VTE Risk Level:: Medical - moderate - high VTE Device Contraindication: Treatment Not Indicated VTE Drug Contraindication: N/A - Med Ordered
[2023-09-16 11:02] LABS: Glucose, Whole Blood 132 mg/dL (60-115)
--- NOTE | 2023-09-16 11:08 | HO.PM.IMPN ---
Subjective Subjective Date of Service: 09/16/23 Interval History: hypokalemia Review of Systems po intake improving no abd pain or fever or chills Physical Exam Vital Signs: Vital Signs: Last Vital Signs Temp 96.9 F 09/16/23 06:54 Pulse 101 H 09/16/23 06:54 Resp 17 09/16/23 06:54 BP 119/72 09/16/23 06:54 Pulse Ox 97 09/16/23 06:54 O2 Del Method Room Air 09/16/23 06:54 O2 Flow Rate 2 09/14/23 07:29 FiO2 70 08/11/23 13:00 BMI result Body Mass Index 35.6 Appearance: Alert.? Oriented X3.? cvs: [id number], [id number] . res: clear to auscultation ,no rhonchii or wheezing abd: no rebound or guarding ,soft, benign. ext pulses present , no cyanosis . neuro: axo3 , nonfocal. Objective Data Active Medications Acetaminophen (Acetaminophen 325 Mg Tablet) 650 mg PO Q6H PRN PRN Reason: Pain, Moderate(Pain Scale 4-6) Last Admin: 09/16/23 05:13 Dose: 650 mg Documented By: BG Bisacodyl (Bisacodyl 10 Mg Supp.Rect) 10 mg [place] DAILY PRN PRN Reason: Constipation Calcium Carbonate (Calcium Carbonate 750 Mg Tab.Chew) 750 mg PO Q6H PRN PRN Reason: Heartburn Last Admin: 08/14/23 22:28 Dose: 750 mg Documented By: RANDY Comments: given for c/o heartburn Collagenase (Collagenase Clostridium Hist. 30 Gm Tube) 1 appl TOPICAL DAILY [facility]; Protocol Last Admin: 09/16/23 08:11 Dose: 1 appl Documented By: SHERRI Docusate Sodium (Docusate Sodium 100 Mg Capsule) 100 mg PO BID PRN PRN Reason: Constipation Glucose (Glucose Gel 15 Gm Gel..Gram.) 15 gm PO Q15M PRN; Protocol PRN Reason: per Hypoglycemia Standing Ord. Dextrose (D10) 250 mls @ 750 mls/hr IV Q15M PRN PRN Reason: per Hypoglycemia Standing Ord. Insulin Human Lispro (Insulin Lispro 100 Unit/Ml 3 Ml Vial) 0 unit SUBCUT QIDACHS [facility]; Protocol Last Admin: 09/16/23 11:04 Dose: Not Given Documented By: SHERRI Non-Admin Reason: No Insulin Coverage Lidocaine (Lidocaine 4 % Patch Adh..Patch) 1 patch TRANSDERMA DAILY [facility]; Protocol Last Admin: 09/16/23 08:08 Dose: 1 patch Documented By: SHERRI Prochlorperazine Edisylate (Prochlorperazine Edisylate 10 Mg/2 Ml Vial) 10 mg IVPUSH Q4H PRN PRN Reason: Nausea and Vomiting Last Admin: 09/16/23 00:57 Dose: 10 mg Documented By: BG Rivaroxaban (Rivaroxaban 20 Mg Tablet) 20 mg PO DAILY [facility] Last Admin: 09/16/23 08:06 Dose: 20 mg Documented By: SHERRI Sodium Chloride (0.9 % Sodium Chloride Flush 3 Ml Syringe) 3 ml IVFLUSH QSHIFT [facility] Last Admin: 09/16/23 08:07 Dose: 3 ml Documented By: SHERRI Sodium Chloride (Sodium Chloride 0.65 % Nasal 44 Ml Sprbtl) 1 spray NOSTRIL-B Q1H PRN PRN Reason: nasal dryness Sodium Chloride (0.9 % Sodium Chloride Flush 10 Ml Syringe) 5 ml IVFLUSH TID [facility] Last Admin: 09/16/23 08:07 Dose: 5 ml Documented By: SHERRI Labs 08/26/23 06:47 09/16/23 06:53 Labs: Laboratory Results - last 24 hr 09/15/23 09/15/23 09/15/23 11:02 11:10 16:07 Hold Purple Top Anion Gap 12 Estim Creat Clear Calc 277.1 Estimated GFR > 60 POC Glucose 149 H 160 H Random Glucose 155 H Calcium 7.8 L Phosphorus Magnesium 1.4 L* Albumin Triglycerides 09/15/23 09/16/23 09/16/23 19:54 06:53 07:00 Hold Purple Top SEE NOTE Anion Gap 15 Estim Creat Clear Calc 166.4 Estimated GFR > 60 POC Glucose 149 H 158 H Random Glucose 148 H Calcium 8.2 L Phosphorus 2.8 Magnesium 2.0 Albumin 2.8 L Triglycerides 109 09/16/23 10:56 Hold Purple Top Anion Gap Estim Creat Clear Calc Estimated GFR POC Glucose 132 H Random Glucose Calcium Phosphorus Magnesium Albumin Triglycerides Microbiology Microbiology Results: Microbiology 09/14/23 16:48 Urine Culture - Preliminary Urine clean catch - Clean Catch Midstream Culture in progress. 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 Hypokalemia : replcement po and iv ordered encouraged for po intake SBO complicated by ischemic bowel + perforation; complicated by prolonged ileus vs anastomotic stenosis from ischemia - fever on 08/20/23 resolved, d/c'ed pip-yudy in absence of signs of infection [cultures negative] - PICC placed 08/25/23. daily electrolyte checks for TPN - NGT removed 08/27/23. Started clears 08/28/23. Surgery following- OK for clear diet. Encourage Ensure intake. CT shows contrast passing through despite narrowing at anastomosis -Advanced to full liquids 09/09/23 with good tolerance. Stop TPN today [09/10/23]. Further diet advancement per Surgery. -no further vomiting times 24 hours. L great toe ulcer, neuropathic vs pressure - Arterial studies completely normal. Wound Care consulted, recommend: Turn and Reposition every 2 hours and as needed for patient comfort.? Use pillows or wedges to support off loading positions. Off Load all bony prominences with use of pillows and heel boots if needed.? Apply Preventative foams where needed. ? Monitor for incontinence and moisture control, use barrier creams when needed for prevention and treatment. Provide adequate and supplemental nutrition.? Continue? low air loss mattress Bariatric bed.? [employer] called for bed workday financials consultant. Buttock, Sacrum and Coccyx -? Off Load Pressure - Barrier cream twice daily to protect from moisture and friction. Left Great Toe? - Off Load Pressure? - Cleanse with NS moist gauze, pat dry.? Apply skin prep to periwound.?Apply thick layer of Santyl to entire wound bed, cover with gauze, secure foam dressing, change Daily. Recommend follow up out patient Wound Clinic at [address] [place] [id number] and to call for an appointment at time of discharge. [phone]. Nocturnal hypoxia/mod-sev SHAVON - CPAP at night per Pulmonology. Upon discharge, will need sleep lab CPAP titration study. Hx DVT/PE - resumed rivaroxaban as per Surgery Guillain-Latah syndrome - stable; on monthly IVIG x5d and due now but would need premedication with prednisone, which would impair wound healing, so deferring for now. Hypokalemia /hypomagnesemia: given po and iv replacements continue bmp and magnesium . LMWH: Heparin Requires ongoing hospitalization for sbo complicated by ischemic bowel + perforation; complicated by prolonged ileus vs anastomotic stenosis from ischemia- will give feeding trail /advancement of diet for toleration/expert follow up and Pt eval. Quality Stroke Does the patient have a stroke diagnosis?: No VTE Prior VTE?: No VTE Risk Level:: Medical - moderate - high VTE Device Contraindication: Treatment Not Indicated VTE Drug Contraindication: N/A - Med Ordered
[2023-09-16] MEDS: Potassium Chloride/H20 10 MEQ/100 ML PIGGYBACK 100 MEQ IV ×2 (11:46→12:40)
--- NOTE | 2023-09-16 15:04 | HO.WOUND ---
Wound Consult: Follow up 53yr old? Male admitted to [facility] on 08/06/23 19:41? with a complex medical admission.? See progress notes and H&P for detailed history.? Wound consult follow up for Left Great Toe Wound.? Patient agreeable to assessment and photo documentation.? Of note patient continues to report bed comfort with [employer] Extra Long Bed with bolsters and [place]. [place] sheet changed with staff and bed demo provided to direct care staff. Left Great Toe assessment 09/08/23 Initial Assessment 09/10/23 Assessment 09/15/23 Assessment 09/16/23 Todays Assessment Previously discussed case with Dr. Chase from the Outpatient Wound Clinic - see previous noted - Primary Etiology will remain Neuropathic. Todays assessment with observed pale yellow slough adherent to wound bed. The central area probed continued to be with thin tissue covering bone. Bone is not frankly exposed but it very close to surface. Patient and direct care team educated on importance of not resting toe on edge of bed - reports understanding. [place] demonstration provided for staff. Recommend continue with Santyl to expedite enzymatic debridement of wound bed. Etiology: ?Neuropathic wound Measurements: 1cm x 1cm x 0.3cm Wound Bed: moist marbled wound bed of pink and yellow slough - decrease in size overall but concern for stalled wound bed.The central area probed over thin tissue covering bone bone is not frankly exposed but it very close to surface Drainage / Odor: scant yellow drainage? - no odor Edges: ? well defined and hypopigmented not macerated [place] wound: ? Hypopigmentation - No Induration, Fluctuance or Warmth noted 2nd toe noted for dry dark pigmentation - foot is cool to touch Pain: denies pain reports neuropathy Goals of Treatment: ?Continue Santly for enzymatic debridement recommend follow up with out patient wound clinic at time of discharge Inpatient wound care nurse will continue to follow. Recommendations: 1. Turn and Reposition every 2 hours and as needed for patient comfort.? Use pillows or wedges to support off loading positions. 2. Off Load all bony prominences with use of pillows and heel boots if needed.? Apply Preventative foams where needed. ? 3. Monitor for incontinence and moisture control, use barrier creams when needed for prevention and treatment. 4. Provide adequate and supplemental nutrition.? 5. Continue? low air loss mattress Bariatric bed.? [employer] called for bed youth care specialist. 6.? Buttock, Sacrum and Coccyx -? Off Load Pressure - Barrier cream twice daily to protect from moisture and friction. 7. Left Great Toe? - Off Load Pressure? - Cleanse with NS moist gauze, pat dry.? Apply skin prep to periwound.?Apply thick layer of Santyl to entire wound bed, cover with gauze, secure foam dressing, change Daily. Recommend follow up out patient Wound Clinic at [address] [place] [address] and to call for an appointment at time of discharge. [phone].? Re-consult wound care Nurse for wound deterioration or wound changes.
[2023-09-16 15:20] VITALS: BP 119/71; PULSE 100; RESP 16; TEMP 36.2; O2SAT 100
[2023-09-16 16:23] LABS: Glucose, Whole Blood 114 mg/dL (60-115)
[2023-09-16 19:57] VITALS: BP 129/73; PULSE 108; RESP 20; TEMP 36.3; O2SAT 98
[2023-09-16 19:59] LABS: Glucose, Whole Blood 113 mg/dL (60-115)
[2023-09-16 21:08] LABS: Potassium 3.4 mmol/L (3.3-5.1)
[2023-09-17] MEDS: 0.9 % Sodium Chloride Flush 3 ML SYRINGE IVFLUSH ×2 (00:26→07:50)
[2023-09-17 03:08] VITALS: BP 106/52; PULSE 113; RESP 18; TEMP 36.8; O2SAT 99
[2023-09-17 06:00] VITALS: BMI 78.8
[2023-09-17 06:23] LABS: Albumin Level 2.6 g/dL (3.5-5.0); Magnesium 1.8 mg/dL (1.6-2.6); Phosphorus 3.2 mg/dL (2.7-4.5)
[2023-09-17 07:03] LABS: Glucose, Whole Blood 129 mg/dL (60-115)
[2023-09-17 07:28] VITALS: BP 127/93; PULSE 97; RESP 14; TEMP 36; O2SAT 99
[2023-09-17] MEDS: 0.9 % Sodium Chloride Flush 10 ML SYRINGE 5 ML IVFLUSH ×2 (07:51→20:48)
[2023-09-17] MEDS: Rivaroxaban 20 MG TABLET PO (07:58)
[2023-09-17] MEDS: Collagenase Clostridium Hist. 30 GM TUBE 1 APPL TOPICAL (07:58)
[2023-09-17] MEDS: Lidocaine 4 % Patch ADH..PATCH 1 PATCH TRANSDERMA (07:58)
[2023-09-17 08:02] LABS: Anion Gap 13 (12-20); Blood Urea Nitrogen 13 mg/dL (9-16); Calcium 7.8 mg/dL (8.4-10.2); Carbon Dioxide 21 mmol/L (22-29); Chloride 108 mmol/L (96-108); Creatinine Clr Calc Pharmacy 295.7; Estimated Glomerular Filt Rate > 60; Glucose Random 139 mg/dL (60-115); Potassium 3.1 mmol/L (3.3-5.1); Sodium 139 mmol/L (135-145)
--- NOTE | 2023-09-17 08:39 | P.PNGS_ITS ---
Subjective Subjective Date of Service: 09/20/23 Interval history: feels well denies abdl pain has been taking solid food in small amounts Has good BMs and flatus Physical Exam 2 Vital Signs: Vital Signs: Last Vital Signs Temp 96.8 F 09/17/23 07:28 Pulse 97 09/17/23 07:28 Resp 14 09/17/23 07:28 BP 127/93 H 09/17/23 07:28 Pulse Ox 99 09/17/23 07:28 O2 Del Method Room Air 09/17/23 07:28 O2 Flow Rate 2 09/14/23 07:29 FiO2 70 08/11/23 13:00 BMI result Body Mass Index 78.8 Const: General: comfortable and no acute distress Resp: Effort & Inspection: normal respiratory effort Cardio: Rate: regular rate GI: Palpation (GI): Soft to palpation, not firm, nontender and no guarding Objective Data Active Medications Acetaminophen (Acetaminophen 325 Mg Tablet) 650 mg PO Q6H PRN PRN Reason: Pain, Moderate(Pain Scale 4-6) Last Admin: 09/16/23 05:13 Dose: 650 mg Documented By: BG Bisacodyl (Bisacodyl 10 Mg Supp.Rect) 10 mg CA DAILY PRN PRN Reason: Constipation Calcium Carbonate (Calcium Carbonate 750 Mg Tab.Chew) 750 mg PO Q6H PRN PRN Reason: Heartburn Last Admin: 08/14/23 22:28 Dose: 750 mg Documented By: RANDY Comments: given for c/o heartburn Collagenase (Collagenase Clostridium Hist. 30 Gm Tube) 1 appl TOPICAL DAILY [facility]; Protocol Last Admin: 09/17/23 07:58 Dose: 1 appl Documented By: ANNIE Docusate Sodium (Docusate Sodium 100 Mg Capsule) 100 mg PO BID PRN PRN Reason: Constipation Glucose (Glucose Gel 15 Gm Gel..Gram.) 15 gm PO Q15M PRN; Protocol PRN Reason: per Hypoglycemia Standing Ord. Dextrose (D10) 250 mls @ 750 mls/hr IV Q15M PRN PRN Reason: per Hypoglycemia Standing Ord. Insulin Human Lispro (Insulin Lispro 100 Unit/Ml 3 Ml Vial) 0 unit SUBCUT QIDACHS [facility]; Protocol Last Admin: 09/17/23 07:22 Dose: Not Given Documented By: ANNIE Non-Admin Reason: No Insulin Coverage Lidocaine (Lidocaine 4 % Patch Adh..Patch) 1 patch TRANSDERMA DAILY [facility]; Protocol Last Admin: 09/17/23 07:58 Dose: 1 patch Documented By: ANNIE Prochlorperazine Edisylate (Prochlorperazine Edisylate 10 Mg/2 Ml Vial) 10 mg IVPUSH Q4H PRN PRN Reason: Nausea and Vomiting Last Admin: 09/16/23 21:09 Dose: 10 mg Documented By: CHELSEA Rivaroxaban (Rivaroxaban 20 Mg Tablet) 20 mg PO DAILY [facility] Last Admin: 09/17/23 07:58 Dose: 20 mg Documented By: ANNIE Sodium Chloride (0.9 % Sodium Chloride Flush 3 Ml Syringe) 3 ml IVFLUSH QSHIFT [facility] Last Admin: 09/17/23 07:50 Dose: 3 ml Documented By: ANNIE Sodium Chloride (Sodium Chloride 0.65 % Nasal 44 Ml Sprbtl) 1 spray NOSTRIL-B Q1H PRN PRN Reason: nasal dryness Sodium Chloride (0.9 % Sodium Chloride Flush 10 Ml Syringe) 5 ml IVFLUSH TID [facility] Last Admin: 09/17/23 07:51 Dose: 5 ml Documented By: ANNIE Labs 08/26/23 06:47 09/17/23 12:45 Labs: Laboratory Results - last 24 hr 09/16/23 09/16/23 09/16/23 10:56 16:14 19:41 Hold Purple Top Anion Gap Estim Creat Clear Calc Estimated GFR POC Glucose 132 H 114 113 Random Glucose Calcium Phosphorus Magnesium Albumin 09/17/23 09/17/23 05:25 06:44 Hold Purple Top SEE NOTE Anion Gap 13 Estim Creat Clear Calc 295.7 Estimated GFR > 60 POC Glucose 129 H Random Glucose 139 H Calcium 7.8 L Phosphorus 3.2 Magnesium 1.8 Albumin 2.6 L Microbiology Microbiology Results: Microbiology 09/14/23 16:48 Urine Culture - Final Urine clean catch - Clean Catch Midstream Procedures Date of Service Date of Service: 09/20/23 Progress Note: A&P Assessment and plan (1) Status post small bowel resection: Status: Acute Assessment and Plan: Tolerating small amounts of solid food Denies abdominal pain No nausea or vomiting Clinically looks well He does have signs of narrowing at the anastomosis so I started him to do small frequent meals throughout the day He plans to return to home and not in rehab facility He is bed-bound as baseline (2) Hypokalemia: Status: Acute (3) Hypomagnesemia: Status: Acute Time Spent With Patient Time: Total time managing care of this patient today ____ minutes. Quality Stroke Does the patient have a stroke diagnosis?: No VTE Prior VTE?: No VTE Risk Level:: Medical - moderate - high VTE Device Contraindication: Treatment Not Indicated VTE Drug Contraindication: N/A - Med Ordered
[2023-09-17] MEDS: Potassium Chloride Packet 20 MEQ PACKET 40 MEQ PO (08:53)
[2023-09-17 11:05] VITALS: BP 127/93; PULSE 97; O2SAT 99
[2023-09-17 11:29] LABS: Glucose, Whole Blood 118 mg/dL (60-115)
[2023-09-17 13:14] LABS: Potassium 3.4 mmol/L (3.3-5.1)
--- NOTE | 2023-09-17 13:30 | MHC.CM.PN ---
EMR reviewed. Per MD patient is medically cleared for dc home w/ new [facility]. [facility] aware of dc. Will resume [employer] services. S transportation scheduled for 1800. MD LENCHO, patient and Rachael Long aware.
--- NOTE | 2023-09-17 13:37 | MHC.CLN ---
F/U DIET=REGULAR. INTAKE X 4 DAYS 50-100% OF MEALS. SKIN WITH DM ULCER TO LEFT GREAT TOE. NO OPEN WOUNDS. PATIENT DISLIKES ENSURE SUPPLEMENT AND DISCONTINUED. WEIGHT DISCREPANCIES NOTED AND SUSPECT ERROR IN RECORDING (# VS KG). CONTINUE TO ENCOURAGE PO INTAKE AND PROVIDE FOOD PREFERENCES ABLE.
--- NOTE | 2023-09-17 14:01 | W.MHC.F2F ---
Service Date Service Date: 09/17/23 Encounter Date of encounter: 09/17/23 Encounter: sbo Reasons for Services Signs and symptoms assessed: SBO, ischemic bowel, bowel resection, hypokalemia & hypomagnesemia . Reason for group home: CV/CP assess and/or care, wound care, medication management, medication treatment and teach disease management Reason for physical therapy: home safety and mobility, therapeutic exercises, restore joint function, gait/transfer training, assess need for DME, ADL training, energy conservation and other MD Overseeing Care: Ramiro Stewart Homebound: Leaving the home is medically contraindicated at this time without the asist of a device and/or another person due th the listed conditions above and below. Reason homebound: weakness related to hospital stay Homebound supporting statement: Patient is generalized weak post hospitalization(multiple comorbidities-sbo and ischemic bowel dis -requiring emergent laparotomy & ischemic small bowel was resected)-patient need help with the appointments, lab draws, wound care, home PT. Certification: Based on the above findings, I certify that this patient is confined to the home and needs intermittent group home care, physical therapy and/or speech therapy, or continues to need occupational therapy. The patient is under my care, and I have initiated the establishment of the plan of care. The patient will be followed by a physician who will periodically review the plan of care. Time Spent With Patient Time: Total time managing care of this patient today ____ minutes.
--- NOTE | 2023-09-17 14:14 | HO.REMOVAL ---
Removal of PICC/Midline Removal of PICC/Midline: Removal of PICC: 1. Date: 09/17/2023 2. Reason removed: order, no longer needed 3. Inserted length: 52 cm 4. Removed length: 52 cm 5. A dressing was placed over the site upon removal. No edema or bleeding at the site.
--- NOTE | 2023-09-17 14:28 | P.DS_ITS ---
DS: Providers Provider Date of Service: 09/17/23 Date of admission: 08/06/23 19:41 Date of discharge: 09/17/23 Primary care physician: Ramiro Stewart MD Consults: 08/06/23 20:21 Consult to General Surgery Routine Consulting Provider: [facility] Reason for consultation: ?Proximal SBO 08/07/23 12:06 Consult to Wound Care Routine Reason for consultation: stage II left coccyx 08/17/23 03:23 Consult to Wound Care Routine Reason for consultation: buttocks appears dusky in color, maseration 09/07/23 00:31 Consult to Wound Care Routine Reason for consultation: ulceration to left great toe Attending physician on discharge: Hermilo Reid Discharging clinician: Hermilo Reid DS: Diagnosis Discharge Diagnosis (1) Status post small bowel resection: Status: Acute DS: Summary Hospital Course Hospital Course: 53-year-old male with a PMH significant for 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 Patient reports he has had recent constipation with last bowel movement over 1 week ago. Says he normally has a BM daily. Last night patient began developing central abdominal pain that was cramping in nature. Would rate a 7 to 8/10 at its worst. Also experienced nausea and vomiting. When patient awoke this morning abdominal symptoms had worsened so he came to the ED for further evaluation. Also notes passing lots of gas last night, with less this morning. Not certain if he is passed any gas this afternoon. Last episode of nausea and vomiting was just prior to arrival at the ED. Says he has been intermittently juicing the past couple of months where he will primarily juice during the week with some salads inbetween and then eat solid meals during the weekends. Denies chest pain/pressure, palpitations. No fever, chills. Denies shortness of breath. In the ED pt was tachycardic up to 140 with slightly elevated temperature of 99.5 degrees. Labs were grossly unremarkable. No leukocytosis. Stable H&H. No electrolyte abnormalities. Renal and hepatic function baseline. UA negative for UTI. Tested negative for influenza, RSV, and COVID. CT?of abdomen and pelvis found question of proximal small bowel obstruction, and also showed constipation. Pt was treated with IVF and ondansetron. Pt will be admitted to the hospital for treatment further evaluation of small-bowel obstruction. Hospital course: Patient was admitted for nausea vomiting patient was admitted for nausea vomiting and abdominal pain-found to have SBO with acute decompensation requiring emergent laparotomy and ischemic bowel resected-postoperatively was in ICU and subsequently downgraded to the floor initially was getting NGT feeding and TPN-subsequently patient seems to be improved significantly now tolerating diet better,surgery recommended -He does have signs of narrowing at the anastomosis so I started him to do small frequent meals throughout the day, tolerating well. Hypokalemia and hypomagnesemia: Repleted and resolved, 1 week supply of supplementation for potassium and magnesium given, monitor BMP in 1 week. Nocturnal hypoxia/mod-sev SHAVON- CPAP at night per Pulmonology. refused to wear cpap. currently sats are in high 90's on roomair. 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 wound care -please see wound care instructions in dc instructions as follows: Buttock, Sacrum and Coccyx -? Off Load Pressure - Barrier cream twice daily to protect from moisture and friction. Left Great Toe? - Off Load Pressure? - Cleanse with NS moist gauze, pat dry.? Apply skin prep to periwound.?Apply thick layer of Santyl to entire wound bed, cover with gauze, secure foam dressing, change Daily. Recommend follow up out patient Wound Clinic at [address] [place] [id number] and to call for an appointment at time of discharge. [phone].? Patient is working with PT, function seems to be near baseline and he is wheelchair-bound at baseline. PT recommended home PT. plan: Continue small and frequent meals, monitor for any signs- abdominal pain or nausea or vomiting if happens then go to nearest emergency room. Monitor BMP and magnesium outpatient, potassium 10 mEq daily and magnesium 400 mg daily supply was given for 1 week. Follow up with Pulmonary outpatient for SHAVON. Surgery cleared to continue IVIG out patiently and if needed premedication also. Above management discussed with the patient in detail length he understand and in agreement with the above plan, time spent 45 minute. Time Attestation Total time managing care of this patient today: 45 mintues. Discharge Coordination Time (in mins): 45 min Quality: Safe Use of Opioids Does Pt have an Active Cancer Diagnosis on the Problem List?: No Quality: Stroke Does the patient have a stroke diagnosis?: No Physical Exam Vital Signs: Vital Signs: Last Vital Signs Temp 96.8 F 09/17/23 07:28 Pulse 97 09/17/23 11:05 Resp 14 09/17/23 07:28 BP 127/93 H 09/17/23 11:05 Pulse Ox 99 09/17/23 11:05 O2 Del Method Room Air 09/17/23 07:28 O2 Flow Rate 2 09/14/23 07:29 FiO2 70 08/11/23 13:00 BMI result Body Mass Index 78.8 Appearance: Alert.? Oriented X3.? cvs: [id number], [id number] . res: clear to auscultation ,no rhonchii or wheezing abd: no rebound or guarding ,soft, benign. ext pulses present , no cyanosis . skin : please see dc summary section. neuro: axo3 , nonfocal. DS: Data Data Completed and Pending Completed studies during hospitalization [Text1]: Pending at discharge 08/09/23 19:28 Surgical [PTH] Routine Labs on day of discharge: Laboratory Results - last 24 hr 09/16/23 09/16/23 09/16/23 16:14 19:41 20:42 Hold Purple Top Sodium Potassium 3.4 D Chloride Carbon Dioxide Anion Gap BUN Creatinine Estim Creat Clear Calc Estimated GFR POC Glucose 114 113 Random Glucose Calcium Phosphorus Magnesium Albumin 09/17/23 09/17/23 09/17/23 05:25 06:44 11:26 Hold Purple Top SEE NOTE Sodium 139 Potassium 3.1 L Chloride 108 Carbon Dioxide 21 L Anion Gap 13 BUN 13 Creatinine 0.69 Estim Creat Clear Calc 295.7 Estimated GFR > 60 POC Glucose 129 H 118 H Random Glucose 139 H Calcium 7.8 L Phosphorus 3.2 Magnesium 1.8 Albumin 2.6 L 09/17/23 12:45 Hold Purple Top Sodium Potassium 3.4 Chloride Carbon Dioxide Anion Gap BUN Creatinine Estim Creat Clear Calc Estimated GFR POC Glucose Random Glucose Calcium Phosphorus Magnesium Albumin Discharge Plan Discharge Anticipated Discharge Date/Time: 09/17/23 12:42 Patient Disposition: Home Health Service Discharge Diagnosis: sbo and ischemic bowel dis -requiring emergent laparotomy & ischemic small bowel was resected. Referrals: Jennifer ALEXANDER [Outside] - 1 Day (Jennifer ALEXANDER will call you to schedule appointments) Ramiro Stewart MD [Primary Care Provider] - 1 Week Discharge Medications: New docusate sodium 100 mg Capsule 100 mg PO BID PRN (Reason: Constipation) Qty: 30 0RF Santyl 250 unit/gram Ointment 1 appl topical DAILY Qty: 15 0RF Protocol: Apply to: Apply to: TOE WOUND potassium chloride 10 mEq tablet extended release 10 meq PO DAILY Qty: 7 0RF magnesium oxide 400 mg magnesium capsule 400 mg PO DAILY Qty: 7 0RF Continued cholecalciferol (vitamin D3) 25 mcg (1,000 unit) Tablet 25 mcg PO DAILY Xarelto 20 mg tablet 20 mg PO DAILY 60 Days Qty: 60 0RF Rx Instructions: must administer with evening meal Held baclofen 10 mg Tablet 10 mg PO BID Hold Instructions: Resume on 10/05/23. start after surgery follow up Discharge Orders: Discharge Order (Routine); Ordered 09/17/23 Ordered By: Hermilo Reid Diet: Advance to usual diet Activity on Discharge: As tolerated Stand Alone Forms: Patient Portal Discharge page Print Language: Japanese Other Ambulatory Orders: Basic Metabolic Panel (Routine) Timeframe: 1 Week Facility: [facility] - Location: Laboratory Ordered By: Hermilo Reid Magnesium (Routine) Timeframe: 1 Week Facility: [facility] - Location: Laboratory Ordered By: Hermilo Reid Activity Restrictions/Additional Instructions: Topical Wound Care Recommendations: Buttock, Sacrum and Coccyx -? Off Load Pressure - Barrier cream twice daily to protect from moisture and friction. Left Great Toe? - Off Load Pressure? - Cleanse with NS moist gauze, pat dry.? Apply skin prep to periwound.?Apply thick layer of Santyl to entire wound bed, cover with gauze, secure foam dressing, change Daily. Recommend follow up out patient Wound Clinic at [address] [place] [id number] and to call for an appointment at time of discharge. [phone].? Care Plan Goals: Patient was admitted for nausea vomiting patient was admitted for nausea vomiting and abdominal pain-found to have SBO with acute decompensation requiring emergent laparotomy and ischemic bowel resected-postoperatively was in ICU and subsequently downgraded to the floor initially was getting NGT feeding and TPN-subsequently patient seems to be improved significantly now tolerating diet better,surgery recommended -He does have signs of narrowing at the anastomosis so I started him to do small frequent meals throughout the day, tolerating well. Hypokalemia and hypomagnesemia: Repleted and resolved, 1 week supply of supplementation for potassium and magnesium given, monitor BMP in 1 week. Nocturnal hypoxia/mod-sev SHAVON- CPAP at night per Pulmonology. refused to wear cpap. currently sats are in high 90's on roomair. 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 wound care -please see wound care instructions above. Health Concerns: as above. Plan of Treatment: as above. Assessment: as above.
--- NOTE | 2023-09-17 14:53 | HO.PM.IMPN ---
Subjective Subjective Date of Service: 09/17/23 Interval History: hypokalemia,severe sleep apnea Review of Systems po intake improving no abd pain or fever or chills Physical Exam Vital Signs: Vital Signs: Last Vital Signs Temp 96.8 F 09/17/23 07:28 Pulse 97 09/17/23 11:05 Resp 14 09/17/23 07:28 BP 127/93 H 09/17/23 11:05 Pulse Ox 99 09/17/23 11:05 O2 Del Method Room Air 09/17/23 07:28 O2 Flow Rate 2 09/14/23 07:29 FiO2 70 08/11/23 13:00 BMI result Body Mass Index 78.8 Appearance: Alert.? Oriented X3.? cvs: rrr, [id number] . res: clear to auscultation ,no rhonchii or wheezing abd: no rebound or guarding ,soft, benign. ext pulses present , no cyanosis . neuro: axo3 , nonfocal. Objective Data Active Medications Acetaminophen (Acetaminophen 325 Mg Tablet) 650 mg PO Q6H PRN PRN Reason: Pain, Moderate(Pain Scale 4-6) Last Admin: 09/16/23 05:13 Dose: 650 mg Documented By: BG Bisacodyl (Bisacodyl 10 Mg Supp.Rect) 10 mg NM DAILY PRN PRN Reason: Constipation Calcium Carbonate (Calcium Carbonate 750 Mg Tab.Chew) 750 mg PO Q6H PRN PRN Reason: Heartburn Last Admin: 08/14/23 22:28 Dose: 750 mg Documented By: RANDY Comments: given for c/o heartburn Collagenase (Collagenase Clostridium Hist. 30 Gm Tube) 1 appl TOPICAL DAILY [facility]; Protocol Last Admin: 09/17/23 07:58 Dose: 1 appl Documented By: ANNIE Docusate Sodium (Docusate Sodium 100 Mg Capsule) 100 mg PO BID PRN PRN Reason: Constipation Glucose (Glucose Gel 15 Gm Gel..Gram.) 15 gm PO Q15M PRN; Protocol PRN Reason: per Hypoglycemia Standing Ord. Dextrose (D10) 250 mls @ 750 mls/hr IV Q15M PRN PRN Reason: per Hypoglycemia Standing Ord. Insulin Human Lispro (Insulin Lispro 100 Unit/Ml 3 Ml Vial) 0 unit SUBCUT QIDACHS [facility]; Protocol Last Admin: 09/17/23 11:31 Dose: Not Given Documented By: ANNIE Non-Admin Reason: No Insulin Coverage Lidocaine (Lidocaine 4 % Patch Adh..Patch) 1 patch TRANSDERMA DAILY [facility]; Protocol Last Admin: 09/17/23 07:58 Dose: 1 patch Documented By: ANNIE Rivaroxaban (Rivaroxaban 20 Mg Tablet) 20 mg PO DAILY [facility] Last Admin: 09/17/23 07:58 Dose: 20 mg Documented By: ANNIE Sodium Chloride (0.9 % Sodium Chloride Flush 3 Ml Syringe) 3 ml IVFLUSH QSHIFT [facility] Last Admin: 09/17/23 07:50 Dose: 3 ml Documented By: ANNIE Sodium Chloride (Sodium Chloride 0.65 % Nasal 44 Ml Sprbtl) 1 spray NOSTRIL-B Q1H PRN PRN Reason: nasal dryness Sodium Chloride (0.9 % Sodium Chloride Flush 10 Ml Syringe) 5 ml IVFLUSH TID [facility] Last Admin: 09/17/23 07:51 Dose: 5 ml Documented By: ANNIE Labs 08/26/23 06:47 09/17/23 12:45 Labs: Laboratory Results - last 24 hr 09/16/23 09/16/23 09/17/23 16:14 19:41 05:25 Hold Purple Top SEE NOTE Anion Gap 13 Estim Creat Clear Calc 295.7 Estimated GFR > 60 POC Glucose 114 113 Random Glucose 139 H Calcium 7.8 L Phosphorus 3.2 Magnesium 1.8 Albumin 2.6 L 09/17/23 09/17/23 06:44 11:26 Hold Purple Top Anion Gap Estim Creat Clear Calc Estimated GFR POC Glucose 129 H 118 H Random Glucose Calcium Phosphorus Magnesium Albumin Microbiology Microbiology Results: Microbiology 09/14/23 16:48 Urine Culture - Final Urine clean catch - Clean Catch Midstream Assessment and Plan (1) Status post small bowel resection: Status: Acute (2) Hypokalemia: Status: Acute (3) Hypomagnesemia: Status: Acute Plan 53yo wheelchair-bound M with Guillain-[place] syndrome, hx DVT/PE (Dec 2021) on Xarelto presented with N/V/abd pain and admitted for SBO; acute decompensation 08/09/23 requiring emergent laparotomy with JACQUIE, 140cm of ischemic small bowel was resected; postoperatively was in ICU for pressor support stepped down to IMC 08/12/23; NGT removed + clears started 08/13/23, but then replaced 08/19/23 for SBO vs ileus. Hypokalemia : replcement po and iv ordered encouraged for po intake SBO complicated by ischemic bowel + perforation; complicated by prolonged ileus vs anastomotic stenosis from ischemia - fever on 08/20/23 resolved, d/c'ed pip-yudy in absence of signs of infection [cultures negative] - PICC placed 08/25/23. daily electrolyte checks for TPN - NGT removed 08/27/23. Started clears 08/28/23. Surgery following- OK for clear diet. Encourage Ensure intake. CT shows contrast passing through despite narrowing at anastomosis -Advanced to full liquids 09/09/23 with good tolerance. Stop TPN today [09/10/23]. Further diet advancement per Surgery. -no further vomiting times 24 hours. L great toe ulcer, neuropathic vs pressure - Arterial studies completely normal. Wound Care consulted, recommend: Turn and Reposition every 2 hours and as needed for patient comfort.? Use pillows or wedges to support off loading positions. Off Load all bony prominences with use of pillows and heel boots if needed.? Apply Preventative foams where needed. ? Monitor for incontinence and moisture control, use barrier creams when needed for prevention and treatment. Provide adequate and supplemental nutrition.? Continue? low air loss mattress Bariatric bed.? Agility called for bed vehicle trimmer. Buttock, Sacrum and Coccyx -? Off Load Pressure - Barrier cream twice daily to protect from moisture and friction. Left Great Toe? - Off Load Pressure? - Cleanse with NS moist gauze, pat dry.? Apply skin prep to periwound.?Apply thick layer of Santyl to entire wound bed, cover with gauze, secure foam dressing, change Daily. Recommend follow up out patient Wound Clinic at [address] [place] [address], [place] [address] and to call for an appointment at time of discharge. [phone]. Nocturnal hypoxia/mod-sev SHAVON - CPAP at night per Pulmonology. added ovenright pulse oxymetry ,patient refused to wear cpap. Hx DVT/PE - resumed rivaroxaban as per Surgery Guillain-[place] syndrome - stable; on monthly IVIG x5d and due now but would need premedication with prednisone, which would impair wound healing, so deferring for now. Hypokalemia /hypomagnesemia: given po and iv replacements continue bmp and magnesium . LMWH: Heparin Requires ongoing hospitalization for sbo complicated by ischemic bowel + perforation; complicated by prolonged ileus vs anastomotic stenosis from ischemia- will give feeding trail /advancement of diet for toleration/expert follow up and need overnight sleep study -for possible night oxygen use. Quality Stroke Does the patient have a stroke diagnosis?: No VTE Prior VTE?: No VTE Risk Level:: Medical - moderate - high VTE Device Contraindication: Treatment Not Indicated VTE Drug Contraindication: N/A - Med Ordered
--- NOTE | 2023-09-17 15:06 | MHC.CM.PN ---
PT DC CANCELLED HE WILL NEED OVERNIGHT OXYMETRY TO DETERMINE THE NEED FOR HOME 02. 6 PM BLS TRANSPORT CANCELLED. CM WILL CONTINUE TO FOLLOW FOR DC PLAN.
[2023-09-17 16:09] VITALS: BP 121/77; PULSE 112; RESP 20; TEMP 36.4; O2SAT 99
[2023-09-17 16:28] LABS: Glucose, Whole Blood 121 mg/dL (60-115)
[2023-09-17 19:44] VITALS: BP 116/76; PULSE 98; RESP 18; TEMP 36.3; O2SAT 97
[2023-09-17 20:51] LABS: Glucose, Whole Blood 119 mg/dL (60-115)
[2023-09-17] MEDS: Prochlorperazine Maleate 5 MG TABLET PO (20:54)
[2023-09-18] MEDS: Acetaminophen 325 MG TABLET 650 MG PO ×2 (01:38→10:18)
[2023-09-18] MEDS: 0.9 % Sodium Chloride Flush 3 ML SYRINGE IVFLUSH ×2 (01:39→10:09)
[2023-09-18 02:53] VITALS: BP 105/67; PULSE 105; RESP 16; TEMP 36; O2SAT 95
[2023-09-18 07:11] LABS: Albumin Level 2.7 g/dL (3.5-5.0); Magnesium 1.9 mg/dL (1.6-2.6); Phosphorus 3.7 mg/dL (2.7-4.5)
[2023-09-18 07:27] VITALS: BP 120/77; PULSE 80; RESP 16; TEMP 36.2; O2SAT 98
[2023-09-18 07:31] LABS: Glucose, Whole Blood 149 mg/dL (60-115)
[2023-09-18] MEDS: Collagenase Clostridium Hist. 30 GM TUBE 1 APPL TOPICAL (10:18)
[2023-09-18] MEDS: Lidocaine 4 % Patch ADH..PATCH 1 PATCH TRANSDERMA (10:18)
[2023-09-18] MEDS: Rivaroxaban 20 MG TABLET PO (10:18)
[2023-09-18 11:11] LABS: Glucose, Whole Blood 123 mg/dL (60-115)
--- NOTE | 2023-09-18 11:23 | MHC.CM.PN ---
PATIENT IS DC HOME TODAY WITH [facility] SERVICES. RN AWARE
--- NOTE | 2023-09-18 13:54 | MHC.CM.PN ---
Addendum entered by Adeola Bailey RN 09/18/23 14:17: [facility] 17:00 [place] [facility] [place]. Original Note: PATIENT RETURN HOME WITH O2 FOR NIGHT TIME USE. [facility] SUPPLIED TANK IN ROOM AT THIS TIME. [facility] AWARE
[2023-09-18 15:17] VITALS: BP 105/74; PULSE 89; RESP 16; TEMP 36.1; O2SAT 100
[2023-09-18 16:09] LABS: Glucose, Whole Blood 115 mg/dL (60-115)
== END 2023-09-18 16:55 | disposition home health service (06) | DRG 230 ==
LOC: HO.ED 19:36 → HO.EDOVER 20:06 → HO.S3 08-07 02:39 → HO.ICU 08-09 19:09 → HO.IMC 08-12 00:37 → HO.S3 09-06 19:34
PROVIDERS: Family Medicine; Hospitalist; Internal Medicine; Internal Medicine Critical Care Medicine; Nurse Practitioner Acute Care; Physician Assistant Medical; Student in an Organized Health Care Education/Training Program; Surgery; Admitting Provider Student in an Organized Health Care Education/Training Program; Emergency Provider Emergency Medicine; PCP Internal Medicine; Visit Provider Internal Medicine
PROC: 0DB80ZZ Excision of Small Intestine, Open Approach (ICD-10-PCS; CPT 49000; principal; 2023-08-09 16:10)
PROC: 02HV33Z Insertion of Infusion Device into Superior Vena Cava, Percutaneous Approach (ICD-10-PCS; principal; 2023-08-25 10:30)
DX: K56.50 Intestinal adhesions [bands], unspecified as to partial versus complete obstruction (principal); K55.019 Acute (reversible) ischemia of small intestine, extent unspecified; K63.1 Perforation of intestine (nontraumatic); A41.9 Sepsis, unspecified organism; G61.0 Guillain-Barre syndrome; K65.9 Peritonitis, unspecified; N17.9 Acute kidney failure, unspecified; R73.03 Prediabetes; L89.322 Pressure ulcer of left buttock, stage 2; E87.6 Hypokalemia; L97.529 Non-pressure chronic ulcer of other part of left foot with unspecified severity; K56.7 Ileus, unspecified; K59.00 Constipation, unspecified; E83.42 Hypomagnesemia; E87.0 Hyperosmolality and hypernatremia; G47.33 Obstructive sleep apnea (adult) (pediatric); E66.01 Morbid (severe) obesity due to excess calories; R00.0 Tachycardia, unspecified; Z20.822 Contact with and (suspected) exposure to COVID-19; Z68.41 Body mass index [BMI] 40.0-44.9, adult; Z74.01 Bed confinement status; Z86.711 Personal history of pulmonary embolism; Z79.01 Long term (current) use of anticoagulants; Z86.718 Personal history of other venous thrombosis and embolism; Z87.891 Personal history of nicotine dependence; Z79.899 Other long term (current) drug therapy
CPT/HCPCS: 0241U; 36415; 36573; 71045; 74018; 74176; 74177; 74250; 80048; 80053; 80202; 81001; 81003; 82040; 82565; 82570; 82803; 82947; 83036; 83605; 83735; 83880; 84100; 84132; 84300; 84443; 84478; 84484; 85007; 85025; 85027; 86850; 86900; 86901; 87040; 87070; 87073; 87086; 87205; 88307; 92950; 93005; 93923; 93925; 94660; 94762; 97110; 97112; 97163; 97530; 99285; C1751; C1758; C9113; J0131; J0696; J0737; J1450; J1650; J1836; J2270; J2371; J2405; J2543; J2704; J2765; J2795; J2997; J3010; J3370; J3371; J3475; J3480; J7120; J7168; P9047; Q9967

== ENCOUNTER 2023-08-06 19:41 | Outpatient (BNV) | payer OTHER, SELFPAY | END 2023-08-10 19:04 | PROVIDERS: Admitting Provider Student in an Organized Health Care Education/Training Program; Emergency Provider Emergency Medicine; PCP Internal Medicine; Visit Provider Internal Medicine Cardiovascular Disease | DX: I45.81 Long QT syndrome (principal) | CPT/HCPCS: 93010 ==

== ENCOUNTER 2023-08-06 19:41 | Outpatient (BNV) | payer OTHER, SELFPAY | END 2023-08-09 10:30 | PROVIDERS: Admitting Provider Student in an Organized Health Care Education/Training Program; Emergency Provider Emergency Medicine; PCP Internal Medicine; Visit Provider Physician Assistant Surgical | DX: K56.609 Unspecified intestinal obstruction, unspecified as to partial versus complete obstruction (principal) | CPT/HCPCS: 74250 ==

== ENCOUNTER 2023-08-06 19:41 | Outpatient (BNV) | payer OTHER, SELFPAY | END 2023-08-20 00:20 | PROVIDERS: Admitting Provider Student in an Organized Health Care Education/Training Program; Emergency Provider Emergency Medicine; PCP Internal Medicine; Visit Provider Internal Medicine | DX: R07.9 Chest pain, unspecified (principal); R00.0 Tachycardia, unspecified; I49.1 Atrial premature depolarization | CPT/HCPCS: 93010 ==

== ENCOUNTER → 2023-08-06 19:41 | Outpatient (BNV) | payer OTHER, SELFPAY | PROVIDERS: Admitting Provider Student in an Organized Health Care Education/Training Program; Emergency Provider Emergency Medicine; Visit Provider Student in an Organized Health Care Education/Training Program | DX: Z90.49 Acquired absence of other specified parts of digestive tract (principal); E87.6 Hypokalemia; E83.42 Hypomagnesemia | CPT/HCPCS: 99223; 99231; 99232; 99233; 99239; 99499; G0180 ==

== ENCOUNTER → 2023-08-06 19:41 | Outpatient (BNV) | payer OTHER, SELFPAY | PROVIDERS: Admitting Provider Student in an Organized Health Care Education/Training Program; Emergency Provider Emergency Medicine; Visit Provider Surgery | DX: Z90.49 Acquired absence of other specified parts of digestive tract (principal); E87.6 Hypokalemia; E83.42 Hypomagnesemia | CPT/HCPCS: 44120; 99024; 99222; 99232; 99499 ==

== ENCOUNTER → 2023-08-06 19:41 | Outpatient (BNV) | payer OTHER, SELFPAY | PROVIDERS: Admitting Provider Student in an Organized Health Care Education/Training Program; Emergency Provider Emergency Medicine; PCP Internal Medicine; Visit Provider Internal Medicine Critical Care Medicine | DX: K55.9 Vascular disorder of intestine, unspecified (principal); G61.0 Guillain-Barre syndrome; E66.01 Morbid (severe) obesity due to excess calories; Z68.41 Body mass index [BMI] 40.0-44.9, adult | CPT/HCPCS: 36556; 99291; 99292; 99499 ==

== ENCOUNTER 2023-09-24 14:00 | Outpatient (REF) | payer OTHER, SELFPAY ==
[2023-09-24 19:57] LABS: Anion Gap 13 (12-20); Blood Urea Nitrogen 10 mg/dL (9-16); Calcium 7.4 mg/dL (8.4-10.2); Carbon Dioxide 25 mmol/L (22-29); Chloride 105 mmol/L (96-108); Estimated Glomerular Filt Rate > 60; Glucose Random 109 mg/dL (60-115); Magnesium 1.5 mg/dL (1.6-2.6); Potassium 3.1 mmol/L (3.3-5.1); Sodium 140 mmol/L (135-145)
== END 2023-09-24 14:01 | disposition home or self-care (01) ==
LOC: HO.HVNA 14:00
PROVIDERS: Visit Provider Surgery
DX: Z90.49 Acquired absence of other specified parts of digestive tract (principal)
CPT/HCPCS: 36415; 80048; 83735

== ENCOUNTER 2023-10-18 13:57 | Inpatient (IN) | payer OTHER, SELFPAY ==
[2023-10-18] VITALS (15 sets, daily range): BP systolic 68–137; BP diastolic 41–94; PULSE 95–133; RESP 15–22; TEMP 36.6–37.1; O2SAT 100; BMI 36.4
--- NOTE | ~2023-10-18 | XR_ITS ---
EXAMINATION: XR CHEST CLINICAL INFORMATION: Tachycardia, chills COMPARISON: X-ray 08/25/2023 TECHNIQUE: 1 AP view of the chest was obtained. FINDINGS: Rotated positioning. Prominence of the mediastinal silhouette related to positioning/technique. Tubing projected over the right side of the chest. Cardiac leads. The previously seen left PICC line and enteric tube is no longer visualized. Low lung volumes. No evidence of focal consolidation or effusion. No pulmonary edema. No pneumothorax is seen. XR/XR chest 1V IMPRESSION: No evidence of acute pulmonary process.
--- NOTE | ~2023-10-18 | CT_ITS ---
EXAMINATION: CT ABDOMEN AND PELVIS WITHOUT CONTRAST CLINICAL INFORMATION: Abdominal distention. Urinary tract infection. COMPARISON: 09/06/2023 TECHNIQUE: Multidetector volumetric imaging was performed from the superior aspect of the liver through the pubic symphysis. Sagittal and coronal reformatted images were obtained on the technologist's workstation. This CT examination was performed using dose optimization techniques as appropriate, variously including the following: *Automated exposure control *Adjustment of mA and/or kV according to patient size (this includes techniques or standardized protocols for targeted exams where dose is matched to indication/reason for exam; i.e. extremities or head) *Use of iterative reconstruction technique DLP: 1654 mGy-cm FINDINGS: LUNG BASES: There is scarring or minimal subsegmental atelectasis at the right base. LIVER, GALLBLADDER, AND BILIARY TREE: The liver is of significant diminished attenuation. No focal liver lesions are seen. There is no intrahepatic biliary duct dilatation. The gallbladder is unremarkable with no evidence of radiopaque gallstones, gallbladder wall thickening, or obvious pericholecystic inflammatory changes. PANCREAS: Atrophic for patient age. SPLEEN: Unremarkable. ADRENAL GLANDS: Unremarkable. KIDNEYS AND URETERS: The kidneys are normal in size, shape, and attenuation. No hydronephrosis, hydroureter, or calculi seen. No perinephric stranding. BLADDER: Unremarkable. GASTROINTESTINAL TRACT: There are distended/dilated small bowel loops with air-fluid levels most prominent towards the distal small bowel near the enteroenteric anastomosis with small bowel measuring up to 4.6 cm. The appendix is not confidently seen as a separate structure. ABDOMINAL WALL: No significant hernia is appreciated. LYMPH NODES: Normal. VASCULAR: Unremarkable. PELVIC VISCERA: Unremarkable. OSSEOUS STRUCTURES: Unremarkable. CT/CT abdomen pelvis wo IV con IMPRESSION: 1. Dilated small bowel loops with air-fluid levels consistent with a likely partial small bowel obstruction. A similar pattern was seen previously. 2. Hepatic steatosis. 3. Atrophic pancreas. Fleischner guidelines were followed.
--- NOTE | 2023-10-18 14:16 | MHC.CM.ED ---
Patient currently in ER. Received notification from Jennifer ALEXANDER that patient is active with their agency. Return referral made in [facility] so they can follow for d/c needs.
--- NOTE | 2023-10-18 14:18 | ECG_ITS ---
Test Reason : TACHYCARDIA Blood Pressure : / mmHG Vent. Rate : 127 BPM Atrial Rate : 000 BPM P-R Int : 000 ms QRS Dur : 098 ms QT Int : 324 ms P-R-T Axes : 000 021 058 degrees QTc Int : 470 ms sinus tachycardia Abnormal ECG When compared with ECG of 20-AUG-2023 00:20, Poor data quality in current ECG precludes serial comparison Referred By: Arianna Alejandro Electronically Signed By:Arnoldo Tidwell
--- NOTE | 2023-10-18 14:26 | ED.GENADULT ---
HPI - General Adult General Chief complaint: General Medical Stated complaint: Pain from post surgery, no iv meds were given Time Seen by Provider: 10/18/23 14:04 Source: patient and EMS Mode of arrival: EMS Limitations: no limitations History of Present Illness HPI narrative: Patient comes to the emergency room complaining of ?shakiness and hand cramping. Patient denies fever chills. Patient denies chest pain or shortness of breath, denies abdominal pain. Of note, patient was discharged from the hospital approximately a month ago, patient had a 1 month stay in the hospital for ischemic bowel and resection. Patient states that since he was discharged, he has been doing well. Patient states that the shakiness last the few moments, after he arrived to the emergency room, his symptoms self-resolved. Related Data Home Medications ?Medication ?Instructions ?Recorded ?Confirmed baclofen 10 mg tablet 10 mg PO BID 01/04/22 08/06/23 cholecalciferol (vitamin D3) 25 25 mcg PO DAILY 01/04/22 08/06/23 mcg (1,000 unit) tablet Previous Rx's ?Medication ?Instructions ?Recorded rivaroxaban 20 mg tablet (Xarelto) 20 mg PO DAILY 2 months #60 tabs 05/01/22 collagenase clostridium histo. 250 1 appl topical DAILY #15 grams 09/17/23 unit/gram topical ointment (Santyl) docusate sodium 100 mg capsule 100 mg PO BID PRN Constipation #30 09/17/23 caps magnesium oxide 400 mg PO DAILY #7 caps 09/17/23 potassium chloride 10 mEq 10 meq PO DAILY #7 tabs 09/17/23 tablet,extended release prochlorperazine maleate 5 mg 5 mg PO QID PRN Nausea And 09/18/23 tablet Vomiting #10 tabs Allergies Allergy/AdvReac Type Severity Reaction Status Date / Time No Known Allergies Allergy Verified 10/18/23 14:20 Review of Systems Review of Systems: Constitutional : No Weight loss, No Fever, complaining of shakiness/Chills, No Night Sweats, No Fatigue, No Malaise ENT/Mouth : No Hearing loss, No Ear Pain, No Nasal Congestion, No Sinus Pain, No Hoarseness, No sore throat, No Rhinorrhea, No Swallowing Difficulty Eyes: No Eye Pain, No Swelling, No Redness, No Foreign Body, No Discharge, No Vision Changes Cardiovascular : No Chest Pain, No SOB, No Dyspnea on Exertion, No Orthopnea, No Edema, No Palpitations Respiratory : No Cough, No Sputum, No Wheezing, No Smoke Exposure, No Dyspnea Gastrointestinal : No Nausea, No Vomiting, No Diarrhea, No Constipation, No abdominal Pain, No Hematochezia, No Melena Genitourinary : no irregular bleeding, No Dysuria, No Urinary Frequency, No Hematuria, No Urinary Incontinence, No Urgency, No Flank Pain, No Urinary Flow Changes, No Hesitancy Musculoskeletal : No joint pain, No Myalgias, No Joint Swelling, complaining of pain cramping Skin : No Skin Lesions, No rash Neuro : No Weakness, No Numbness, No Paresthesias, No Loss of Consciousness, No Dizziness, No Headache Psych : No Anxiety/Panic, No Depression, No SI/HI/AH/VH, No Social Issues, Heme/Lymph: No Bruising, No Bleeding,No Lymphadenopathy Endocrine : No Polyuria, No Polydipsia, No Temperature Intolerance [facility] Past Medical History Medical History Abdominal pain Morbid obesity [place]ain[place] syndrome Femur fracture, right DVT (deep venous thrombosis) Pulmonary embolism Surgical History Status post small bowel resection H/O hand surgery Social History Social History Household Members: Significant Other Housing: Apartment Do you presently have visiting nurse or other home services: No Alcohol intake: current Alcohol intake frequency: a few times a week Patient Tobacco Use Status: Former Tobacco user Smoked in Last 30 Days: No Use of substances other than those prescribed or required for medical reasons: No Substance Use Type: Marijuana Advance Directives: Yes Advance Directives on File: Yes Advance Directives Date on File: 08/06/23 Physical Exam ED Vital Signs: Vital Signs - 24 hr 10/18/23 14:11 10/18/23 16:50 Temperature 98.4 F 98.1 F Pulse Rate 133 H 111 H Respiratory Rate 20 22 H Blood Pressure 102/66 110/90 H Pulse Oximetry 100 100 Oxygen Delivery Method Nasal Cannula Room Air BMI result Body Mass Index 36.4 Const Other: Appearance: Alert. Oriented X3. No acute distress. Eyes: Pupils equal, round and reactive to light. ENT: Pharynx normal. Neck: Normal inspection. Neck supple. No lymph nodes noted. No crepitus CVS: Tachycardic, heart rate in the 130s Pulses normal. Normal S1 and S2 Respiratory: No respiratory distress. Breath sounds normal. No Wheezing. No rales Abdomen: Soft and nontender. No rigidity. No distention. Skin: Skin warm and dry. Normal skin color. Normal skin turgor. Extremities: No lower extremity edema. No Lacerations. No Rash Neuro: Oriented X 3. No motor deficit. No sensory deficit. Moving all extremities. No slurred speech. CN 2 through 12 grossly intact Psych: calm, cooperative, normal affect Course Course Course Narrative: -all of patient's labs pending -heart rate in the 130s, no fever, patient known to be tachycardic between 100 and 110 a baseline -patient receiving IV fluids Medications Administered Generic Name Dose Route Start Last Admin Trade Name Freq PRN Reason Stop Dose Admin Potassium Chloride 10 meq in 100 mls @ 100 mls/hr 10/18/23 17:30 10/18/23 19:29 Potassium Chloride/H20 IV 10/18/23 21:29 100 mls/hr Q1H YOLETTE Administration Discontinued Medications Generic Name Dose Route Start Last Admin Trade Name Freq PRN Reason Stop Dose Admin Sodium Chloride 1,000 mls @ 999 mls/hr 10/18/23 14:17 10/18/23 18:04 Ns IVCONT 10/18/23 15:17 Infused .Q1H1M ONE Infusion Sodium Chloride 1,000 mls @ 999 mls/hr 10/18/23 15:26 10/18/23 18:04 Ns IVCONT 10/18/23 16:26 Infused .Q1H1M ONE Infusion Magnesium Sulfate 2 gm in 50 mls @ 25 mls/hr 10/18/23 17:15 10/18/23 18:06 Magnesium Sulfate/H2o IV 10/18/23 19:14 25 mls/hr ONCE ONE Administration Calcium Gluconate 2 gm in 100 mls @ 50 mls/hr 10/18/23 17:15 10/18/23 18:12 Calcium Gluconate IV 10/18/23 19:14 50 mls/hr ONCE ONE Administration Potassium Chloride 60 meq 10/18/23 17:15 10/18/23 18:02 Potassium Chloride Packet 20 Meq Packet PO 10/18/23 17:16 60 meq ONCE ONE Administration Tramadol HCl 50 mg 10/18/23 16:45 10/18/23 18:01 Tramadol Hcl 50 Mg Tablet PO 10/18/23 16:46 50 mg ONCE ONE Administration Medical Decision Making Medical Decision Making [facility] Narrative: -my interpretation of labs: No significant hematology abnormality. However, patient's chemistry shows significant electrolyte abnormalities including hypokalemia, hypocalcemia, hypomagnesemia, hypoalbuminemia. Patient's lactic acid was initially elevated, likely secondary to dehydration. After IV fluids, lactic acid improved to normal. -my interpretation of EKG: Tachycardic, heart rate 127: Depression or elevation, no T-wave inversion, QTC 470 -patient's electrolytes were repleted -patient admits that he has not been eating well. Patient denies any diarrhea or vomiting. No abdominal pain. -I discussed the patient with Dr. Reid, patient being admitted Differential Diagnosis Differential Diagnoses: The differential diagnosis associated with the presentation includes (Malabsorption, poor p.o. intake) Admission/Observation Consideration of admission/observation: Escalation of care including admission/observation considered Consult Healthcare Provider Management of the patient was discussed with: Hospitalist Lab Data [facility] Lab Attestation statement: I reviewed the patient's lab results. 10/18/23 14:40 10/18/23 16:07 Labs: Lab Results 10/18/23 10/18/23 10/18/23 Range/Units 14:40 14:41 15:21 WBC 6.8 (4.8-10.8) X10*3/uL RBC 3.88 L (4.60-5.80) X10*6/uL Hgb 11.2 L (14.0-18.0) g/dl Hct 33.1 L (42.0-52.0) % MCV 85.3 (80.0-98.0) fL MCH 28.9 (27.0-33.0) pg MCHC 33.8 (31.0-36.0) g/dl RDW 17.5 H (11.0-16.0) % Plt Count 387 (160-400) X10*3/uL MPV 9.3 L (9.4-12.4) fL Immature Gran % (Auto) 1.2 H (0.0-0.4) % Neut % (Auto) 43.1 L (45-73) % Lymph % (Auto) 45.8 H (20-40) % [place] % (Auto) 9.4 (2-11) % Eos % (Auto) 0.1 (0-4) % Baso % (Auto) 0.4 (0-2) % Lymph # (Auto) 3.1 (1.2-4.9) X10*3/uL [place] # (Auto) 0.6 (0.1-1.2) X10*3/uL Eos # (Auto) 0.0 (0.0-0.4) X10*3/uL Baso # (Auto) 0.0 (0.0-0.2) X10*3/uL Abs Immat Gran (auto) 0.08 H (0.00-0.03) X10*3/uL Absolute Neuts (auto) 2.9 (2.0-8.3) x10*3/uL Absolute Nucleated RBC 0.000 (0.0-0.012) X10*3/uL Nucleated RBC % (auto) 0.0 (0.0-0.2) /100WBC PT 41.8 H (11.1-13.3) SEC INR 3.4 H (0.9-1.1) Sodium (135-145) mmol/L Potassium (3.3-5.1) mmol/L Chloride (96-108) mmol/L Carbon Dioxide (22-29) mmol/L Anion Gap (12-20) BUN (9-16) mg/dL Creatinine (0.5-1.4) mg/dL Estim Creat Clear Calc Estimated GFR Random Glucose (60-115) mg/dL Lactic Acid 3.0 H* (0.5-2.0) mmol/L Lactic Acid F/U @ 2Hr (0.5-2.0) mmol/L Calcium (8.4-10.2) mg/dL Magnesium (1.6-2.6) mg/dL Total Bilirubin (0.0-1.0) mg/dL Direct Bilirubin (0.0-0.5) mg/dL AST (5-37) U/L ALT (0-40) U/L Alkaline Phosphatase (39-117) U/L Troponin I High Sens 11.1 D (<3.5-35.0) ng/L Total Protein (6.5-8.0) g/dL Albumin (3.5-5.0) g/dL Lipase (8-78) U/L Urine Color Urine Appearance Urine pH (5.0-9.0) Ur Specific [place] (1.005-1.025) Urine Protein (Neg-Trace) mg/dL Urine Glucose (UA) (Negative) mg/dL Urine Ketones (Negative) mg/dL Urine Blood (Negative) Urine Nitrite (Negative) Ur Leukocyte Esterase (Negative) Urine RBC (0-2) /HPF Urine WBC (0-5) /HPF Ur Squamous Epith Cells (0-2) /HPF Urine Bacteria (None Seen) Hyaline Casts (0-2) /LPF Urine Opiates Screen (Not Detect) Ur Buprenorphine Scrn (Not Detect) ng/mL Ur Oxycodone Screen (Not Detect) ng/mL Urine Methadone Screen (Not Detect) ng/mL Urine Fentanyl Screen (Not Detect) Ur Barbiturates Screen (Not Detect) Ur Phencyclidine Scrn (Not Detect) Ur Amphetamines Screen (Not Detect) U Benzodiazepines Scrn (Not Detect) Urine Cocaine Screen (Not Detect) U Marijuana (THC) Screen (Not Detect) Ethyl Alcohol < 10 mg/dL 10/18/23 10/18/23 10/18/23 Range/Units 16:07 16:58 17:26 WBC (4.8-10.8) X10*3/uL RBC (4.60-5.80) X10*6/uL Hgb (14.0-18.0) g/dl Hct (42.0-52.0) % MCV (80.0-98.0) fL MCH (27.0-33.0) pg MCHC (31.0-36.0) g/dl RDW (11.0-16.0) % Plt Count (160-400) X10*3/uL MPV (9.4-12.4) fL Immature Gran % (Auto) (0.0-0.4) % Neut % (Auto) (45-73) % Lymph % (Auto) (20-40) % [place] % (Auto) (2-11) % Eos % (Auto) (0-4) % Baso % (Auto) (0-2) % Lymph # (Auto) (1.2-4.9) X10*3/uL [place] # (Auto) (0.1-1.2) X10*3/uL Eos # (Auto) (0.0-0.4) X10*3/uL Baso # (Auto) (0.0-0.2) X10*3/uL Abs Immat Gran (auto) (0.00-0.03) X10*3/uL Absolute Neuts (auto) (2.0-8.3) x10*3/uL Absolute Nucleated RBC (0.0-0.012) X10*3/uL Nucleated RBC % (auto) (0.0-0.2) /100WBC PT (11.1-13.3) SEC INR (0.9-1.1) Sodium 135 (135-145) mmol/L Potassium 2.2 L* D (3.3-5.1) mmol/L Chloride 101 (96-108) mmol/L Carbon Dioxide 22 (22-29) mmol/L Anion Gap 14 (12-20) BUN 12 (9-16) mg/dL Creatinine 0.66 (0.5-1.4) mg/dL Estim Creat Clear Calc 193.9 Estimated GFR > 60 Random Glucose 79 (60-115) mg/dL Lactic Acid (0.5-2.0) mmol/L Lactic Acid F/U @ 2Hr 1.6 (0.5-2.0) mmol/L Calcium 4.7 L* D (8.4-10.2) mg/dL Magnesium 0.7 L* (1.6-2.6) mg/dL Total Bilirubin 0.8 (0.0-1.0) mg/dL Direct Bilirubin 0.5 (0.0-0.5) mg/dL AST 44 H (5-37) U/L ALT 34 (0-40) U/L Alkaline Phosphatase 97 (39-117) U/L Troponin I High Sens (<3.5-35.0) ng/L Total Protein 5.6 L (6.5-8.0) g/dL Albumin 1.6 L (3.5-5.0) g/dL Lipase 4 L (8-78) U/L Urine Color Dark Yellow Urine Appearance Cloudy Urine pH 6.5 (5.0-9.0) Ur Specific [place] 1.015 (1.005-1.025) Urine Protein 30 (1+) H (Neg-Trace) mg/dL Urine Glucose (UA) Negative (Negative) mg/dL Urine Ketones Negative (Negative) mg/dL Urine Blood Negative (Negative) Urine Nitrite Negative (Negative) Ur Leukocyte Esterase Large (3+) H (Negative) Urine RBC 0-2 (0-2) /HPF Urine WBC >50 H (0-5) /HPF Ur Squamous Epith Cells 0-2 (0-2) /HPF Urine Bacteria 4+ (None Seen) Hyaline Casts 3-5 (0-2) /LPF Urine Opiates Screen Not Detected (Not Detect) Ur Buprenorphine Scrn Not Detected (Not Detect) ng/mL Ur Oxycodone Screen Not Detected (Not Detect) ng/mL Urine Methadone Screen Not Detected (Not Detect) ng/mL Urine Fentanyl Screen Not Detected (Not Detect) Ur Barbiturates Screen Not Detected (Not Detect) Ur Phencyclidine Scrn Not Detected (Not Detect) Ur Amphetamines Screen Not Detected (Not Detect) U Benzodiazepines Scrn Not Detected (Not Detect) Urine Cocaine Screen Not Detected (Not Detect) U Marijuana (THC) Screen Not Detected (Not Detect) Ethyl Alcohol mg/dL Independent Interpretation I performed an independent interpretation of an: EKG Critical Care Time Critical Care Time Critical Care Time: Yes Total Critical Care Time: 75 Attestation: I have personally provided critical care time. Time includes review of lab data, radiology results, discussion with consultants, and monitoring for potential decompensation. Intervention performed as documented. Discharge Plan Discharge Clinical Impression: Acute hypokalemia, Hypomagnesemia, Hypocalcemia, Hypoalbuminemia Patient Disposition: Admitted As Inpatient Prescriptions: No Action baclofen 10 mg Tablet 10 mg PO BID Hold Instructions: Resume on 10/05/23. start after surgery follow up cholecalciferol (vitamin D3) 25 mcg (1,000 unit) Tablet 25 mcg PO DAILY Xarelto 20 mg tablet 20 mg PO DAILY 60 Days Qty: 60 0RF Rx Instructions: must administer with evening meal docusate sodium 100 mg Capsule 100 mg PO BID PRN (Reason: Constipation) Qty: 30 0RF Santyl 250 unit/gram Ointment 1 appl topical DAILY Qty: 15 0RF Protocol: Apply to: Apply to: TOE WOUND potassium chloride 10 mEq tablet extended release 10 meq PO DAILY Qty: 7 0RF magnesium oxide 400 mg magnesium capsule 400 mg PO DAILY Qty: 7 0RF prochlorperazine maleate 5 mg Tablet 5 mg PO QID PRN (Reason: Nausea And Vomiting) Qty: 10 0RF Print Language: [place]
[2023-10-18 14:45] LABS: MANUAL DIFF FLAG NO
[2023-10-18 14:47] LABS: Basophils Percent Auto 0.4 % (0-2); Eosinophils Percent Auto 0.1 % (0-4); Hematocrit 33.1 % (42.0-52.0); Hemoglobin 11.2 g/dl (14.0-18.0); Imm Gran Abs Auto 0.08 X10*3/uL (0.00-0.03); Imm Gran Pct Auto 1.2 % (0.0-0.4); Lymphocytes Absolute Auto 3.1 X10*3/uL (1.2-4.9); Lymphocytes Percent Auto 45.8 % (20-40); Mean Corpuscular HGB Conc 33.8 g/dl (31.0-36.0); Mean Corpuscular Hemoglobin 28.9 pg (27.0-33.0); Mean Corpuscular Volume 85.3 fL (80.0-98.0); Mean Platelet Volume 9.3 fL (9.4-12.4); Monocytes Absolute Auto 0.6 X10*3/uL (0.1-1.2); Monocytes Percent Auto 9.4 % (2-11); Neutrophils Absolute Auto 2.9 x10*3/uL (2.0-8.3); Neutrophils Percent Auto 43.1 % (45-73); Platelet Count 387 X10*3/uL (160-400); Red Blood Count 3.88 X10*6/uL (4.60-5.80); Red Cell Distribution Width 17.5 % (11.0-16.0); White Blood Count 6.8 X10*3/uL (4.8-10.8)
[2023-10-18] MEDS: 0.9 % Sodium Chloride 1,000 ML 999 ML IVCONT ×3 (14:51→19:53)
[2023-10-18 14:57] LABS: INTERNATIONAL NORM RATIO 3.4 (0.9-1.1); Prothrombin Time 41.8 SEC (11.1-13.3)
[2023-10-18 15:07] LABS: Troponin-I High Sensitivity 11.1 ng/L (<3.5-35.0)
[2023-10-18 15:40] LABS: Ethanol < 10 mg/dL
[2023-10-18 16:42] LABS: Anion Gap 14 (12-20)
[2023-10-18 16:44] LABS: Reflex Lactate? Lactic Acid Added
--- NOTE | 2023-10-18 16:46 | PC.NURSE ---
Pt coming from home via ambulance, reports he was getting IVIG treatment (which he has had in the past). Gets these infusions for [place]. Reports when infusion stopped he began shaking uncontrollably. Denies any CP, SOB, rashes, vomiting with the episodes. Pt reports he has wound on right upper leg, open wound that is examined by MD at bedside. Pt is alert and oriented, breathing even and unlabored, skin warm and dry. IV on right side was placed [employer] by visiting nurse.
--- NOTE | 2023-10-18 16:50 | PC.NURSE ---
Pt reports recent hospitalization here in July for bowel obstruction surgery. Denies any other recent illnesses or falls. Reports shaking has resolved since she has been here.
[2023-10-18 16:51] LABS: Alanine Aminotransferase 34 U/L (0-40); Albumin Level 1.6 g/dL (3.5-5.0); Alkaline Phosphatase 97 U/L (39-117); Aspartate Amino Transferase 44 U/L (5-37); Bilirubin Direct 0.5 mg/dL (0.0-0.5); Bilirubin Total 0.8 mg/dL (0.0-1.0); Blood Urea Nitrogen 12 mg/dL (9-16); Calcium 4.7 mg/dL (8.4-10.2); Carbon Dioxide 22 mmol/L (22-29); Chloride 101 mmol/L (96-108); Creatinine Clr Calc Pharmacy 193.9; Estimated Glomerular Filt Rate > 60; Glucose Random 79 mg/dL (60-115); Lipase 4 U/L (8-78); Magnesium 0.7 mg/dL (1.6-2.6); Potassium 2.2 mmol/L (3.3-5.1); Sodium 135 mmol/L (135-145); Total Protein 5.6 g/dL (6.5-8.0)
[2023-10-18 17:18] LABS: Appearance Urine Cloudy; Color Urine Dark Yellow; Glucose Urine UA Negative (Negative); Leukocyte Esterase Urine Large (3+) (Negative); Nitrite Urine Negative (Negative); PH 6.5 (5.0-9.0); Specific Gravity - Urine 1.015 (1.005-1.025); UMIC TRIGGER UACC YES; Urine Blood Negative (Negative); Urine Ketones Negative (Negative); Urine Protein 30 (1+) mg/dL (Neg-Trace)
[2023-10-18 17:25] LABS: Amphetamine Screen Urine Not Detected (Not Detect); Barbiturates, Urine Not Detected (Not Detect); Benzodiazepines Screen Urine Not Detected (Not Detect); Buprenorphine Scr Not Detected (Not Detect); Cannabinoid Screen Urine Not Detected (Not Detect); Cocaine Screen Urine Not Detected (Not Detect); Fentanyl, urine Not Detected (Not Detect); Methadone Screen, Urine Not Detected (Not Detect); Opiate Screen Urine Not Detected (Not Detect); Oxycodone Screen Urine Not Detected (Not Detect); Phencyclidine Screen Urine Not Detected (Not Detect)
[2023-10-18 17:33] LABS: Bacteria Urine 4+ (None Seen); RBC Urine 0-2 /HPF (0-2); Squamous Epithelial Cell Urine 0-2 /HPF (0-2); UACC Culture Trigger YES; WBC Urine >50 /HPF (0-5)
[2023-10-18 17:43] LABS: ~Lactic Acid-LAB USE ONLY 1.6 mmol/L (0.5-2.0)
[2023-10-18] MEDS: traMADoL HCL 50 MG TABLET PO (18:01)
[2023-10-18] MEDS: Potassium Chloride Packet 20 MEQ PACKET 60 MEQ PO (18:02)
[2023-10-18] MEDS: Magnesium Sulfate/H2O 2 GM/50 ML PIGGYBACK IV (18:06)
[2023-10-18] MEDS: Calcium Gluconate/NaCl,Iso-Osm 2 GM/100 ML PLAST..BAG IV (18:12)
[2023-10-18] MEDS: Potassium Chloride/H20 10 MEQ/100 ML PIGGYBACK 100 MEQ IV ×4 (18:14→23:22)
--- NOTE | 2023-10-18 18:28 | MHC.EDTECH ---
pt requesting to be repositioned. Moved patient into hospital bed for comfort. Pillows placed on either side.
--- NOTE | 2023-10-18 18:29 | PC.NURSE ---
Pt is on 2L O2 from home via [place].
--- NOTE | 2023-10-18 19:45 | P.HPHOSP_ITS ---
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 Patient states that he has had poor appetite and has not been eating much but is tolerating fluids. He has also been having 2-3 episodes of watery stool on a daily basis. Denies any fevers, chills, abdominal pain, nausea, vomiting, urinary symptoms, hematochezia, melena, shortness breath, cough, chest pain. He was recently admitted to [facility] from 08/05-09/16 due to SBO with acute decompensation requiring emergent laparotomy and ischemic bowel resected-postoperatively was in ICU and subsequently downgraded to the floor initially was getting NGT feeding and TPN. Diet was advaanced and he was discharged home and recommended to eat small frequent meals throughout the day. On arrival, pt tachcyardic to 133 (though appears chronically tachycardic), tachypneic to 22. Did develop hypotension to 79/48 improved with IVF. NO leukocytosis. Stable normocytic anemia. Renal function baseline. Potassium 2.2, calcium 4.7 (corrected calcium 6.2), magnesium 0.7. Initial lactic acid 3.0, repeat 1.6. Albumin 1.6, total protein 5.6. Urinalysis significant for 3+ leukocytes, negative nitrites, negative blood, positive urinary sediment, 4+ bacteria. Urine tox screen negative, ethyl alcohol level undetectable. Chest x-ray negative for any acute pulmonary process. In the ED treated with 2 g calcium gluconate, 2 g IV magnesium, 40 mEq potassium chloride IV and 60 mEq potassium chloride p.o., IV albumin, and 50 mg tramadol. <NIEVES Garcia - Last Filed: 10/18/23 20:58> Review of Systems 2 Review of Systems: General: No fevers, malaise, unintentional weight loss HEENT: No blurred vision, diplopia. No sore throat, nasal congestion, rhinorrhea, sinus pain, ear pain Cardiovascular: No chest pain, palpitations, or leg edema Respiratory: No shortness of breath, wheezing, cough GI: No abdominal pain, nausea, vomiting, diarrhea, constipation, melena, hematochezia : No dysuria, hematuria, increased urinary frequency, decreased urinary output MSK: No myalgia, back pain Neuro: No headaches, weakness, paresthesias. + shakiness Skin: No rashes or lesions <NIEVES Garcia - Last Filed: 10/18/23 20:58> [facility] Medical History: Medical History Abdominal pain Morbid obesity Guillain-[place]ay[place] syndrome Femur fracture, right DVT (deep venous thrombosis) Pulmonary embolism <NIEVES Garcia - Last Filed: 10/18/23 20:58> Surgical History: Surgical History Status post small bowel resection H/O hand surgery <NIEVES Garcia - Last Filed: 10/18/23 20:58> Social History: Social History Household Members: Significant Other Housing: Apartment Do you presently have visiting nurse or other home services: No Alcohol intake: current Alcohol intake frequency: a few times a week Patient Tobacco Use Status: Former Tobacco user Smoked in Last 30 Days: No Use of substances other than those prescribed or required for medical reasons: No Substance Use Type: Marijuana Advance Directives: Yes Advance Directives on File: Yes Advance Directives Date on File: 08/06/23 <NIEVES Garcia - Last Filed: 10/18/23 20:58> Meds Allergies/Adverse reactions: Allergies Allergy/AdvReac Type Severity Reaction Status Date / Time No Known Allergies Allergy Verified 10/18/23 14:20 <NIEVES Garcia - Last Filed: 10/18/23 20:58> Active Medications: Current Medications Potassium Chloride (Potassium Chloride/H20) 10 meq in 100 mls @ 100 mls/hr IV Q1H YOLETTE Stop: 10/18/23 21:29 Last Admin: 10/18/23 19:29 Dose: 100 mls/hr <NIEVES Garcia - Last Filed: 10/18/23 20:58> Home medications: Home Medications ?Medication ?Instructions ?Recorded ?Confirmed ?Last Taken ?Type baclofen 10 mg tablet 10 mg PO BID 01/04/22 08/06/23 08/06/23 History cholecalciferol (vitamin D3) 25 25 mcg PO DAILY 01/04/22 08/06/23 08/06/23 History mcg (1,000 unit) tablet <NIEVES Garcia - Last Filed: 10/18/23 20:58> Physical Exam 2 Vital Signs and Narrative: Vital Signs: Last Vital Signs Temp 98.1 F 10/18/23 16:50 Pulse 111 H 10/18/23 16:50 Resp 22 H 10/18/23 16:50 BP 110/90 H 10/18/23 16:50 Pulse Ox 100 10/18/23 16:50 O2 Del Method Room Air 10/18/23 16:50 Oxygen Flow Rate 2 10/18/23 14:11 BMI result Body Mass Index 36.4 <NIEVES Garcia - Last Filed: 10/18/23 20:58> Constitutional - Awake and Alert, No apparent distress Eyes - PERRLA, EOMI Cardiovascular - S1S2, RRR, No edema Respiratory - Normal lung expansion, Normal respiratory effort, No respiratory distress, CTA bilaterally Gastrointestinal - NT / ND; +BS; No rebound or guarding Extremities - no calf tenderness bilaterally, no swelling Skin - Warm/Dry. 3 sub centimeter stage 2 decubitus ulcers of the R buttock without surrounding erythema/warmth/drainage Neurological - Alert & oriented x3 Psychological - Appropriate affect <NIEVES Garcia - Last Filed: 10/18/23 20:58> Results Labs CBC and Chem 7: 10/18/23 14:40 10/18/23 16:07 <NIEVES Garcia - Last Filed: 10/18/23 20:58> Labs: Laboratory Results - last 24 hr 10/18/23 10/18/23 10/18/23 14:40 14:41 15:21 MCV 85.3 MCH 28.9 MCHC 33.8 RDW 17.5 H Plt Count 387 MPV 9.3 L Immature Gran % (Auto) 1.2 H Neut % (Auto) 43.1 L Lymph % (Auto) 45.8 H Wolfe % (Auto) 9.4 Eos % (Auto) 0.1 Baso % (Auto) 0.4 Lymph # (Auto) 3.1 Wolfe # (Auto) 0.6 Eos # (Auto) 0.0 Baso # (Auto) 0.0 Abs Immat Gran (auto) 0.08 H Absolute Neuts (auto) 2.9 Absolute Nucleated RBC 0.000 Nucleated RBC % (auto) 0.0 PT 41.8 H INR 3.4 H Anion Gap Estim Creat Clear Calc Estimated GFR Random Glucose Lactic Acid 3.0 H* Lactic Acid F/U @ 2Hr Calcium Magnesium Total Bilirubin Direct Bilirubin AST ALT Alkaline Phosphatase Troponin I High Sens 11.1 D Total Protein Albumin Lipase Urine Color Urine Appearance Urine pH Ur Specific [place] Urine Protein Urine Glucose (UA) Urine Ketones Urine Blood Urine Nitrite Ur Leukocyte Esterase Urine RBC Urine WBC Ur Squamous Epith Cells Urine Bacteria Hyaline Casts Urine Opiates Screen Ur Buprenorphine Scrn Ur Oxycodone Screen Urine Methadone Screen Urine Fentanyl Screen Ur Barbiturates Screen Ur Phencyclidine Scrn Ur Amphetamines Screen U Benzodiazepines Scrn Urine Cocaine Screen U Marijuana (THC) Screen Ethyl Alcohol < 10 10/18/23 10/18/23 10/18/23 16:07 16:58 17:26 MCV MCH MCHC RDW Plt Count MPV Immature Gran % (Auto) Neut % (Auto) Lymph % (Auto) Wolfe % (Auto) Eos % (Auto) Baso % (Auto) Lymph # (Auto) Wolfe # (Auto) Eos # (Auto) Baso # (Auto) Abs Immat Gran (auto) Absolute Neuts (auto) Absolute Nucleated RBC Nucleated RBC % (auto) PT INR Anion Gap 14 Estim Creat Clear Calc 193.9 Estimated GFR > 60 Random Glucose 79 Lactic Acid Lactic Acid F/U @ 2Hr 1.6 Calcium 4.7 L* D Magnesium 0.7 L* Total Bilirubin 0.8 Direct Bilirubin 0.5 AST 44 H ALT 34 Alkaline Phosphatase 97 Troponin I High Sens Total Protein 5.6 L Albumin 1.6 L Lipase 4 L Urine Color Dark Yellow Urine Appearance Cloudy Urine pH 6.5 Ur Specific [place] 1.015 Urine Protein 30 (1+) H Urine Glucose (UA) Negative Urine Ketones Negative Urine Blood Negative Urine Nitrite Negative Ur Leukocyte Esterase Large (3+) H Urine RBC 0-2 Urine WBC >50 H Ur Squamous Epith Cells 0-2 Urine Bacteria 4+ Hyaline Casts 3-5 Urine Opiates Screen Not Detected Ur Buprenorphine Scrn Not Detected Ur Oxycodone Screen Not Detected Urine Methadone Screen Not Detected Urine Fentanyl Screen Not Detected Ur Barbiturates Screen Not Detected Ur Phencyclidine Scrn Not Detected Ur Amphetamines Screen Not Detected U Benzodiazepines Scrn Not Detected Urine Cocaine Screen Not Detected U Marijuana (THC) Screen Not Detected Ethyl Alcohol <NIEVES Garcia - Last Filed: 10/18/23 20:58> Imaging Radiologist's Impressions: Impressions Chest X-Ray 10/18/23 15:54 IMPRESSION: No evidence of acute pulmonary process. 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 who is chronically wheelchair-bound, and SHAVON noncompliant with CPAP on 2 L nocturnal O2 admitted for further management of acute hypokalemia, acute hypocalcemia, acute hypomagnesemia in the setting of poor nutrition and diarrhea #Acute hypokalemia/hypomagnesemia/hypocalcemia -K2.2, Mag 0.7, Ca 4.7 (corrected 6.2), albumin 1.8 -r/t poor nutrition and diarrhea -given 40meq KCl IV, 60meq KCl -Given 2g calcium gluconate -given 2 g IV magnesium -give iv albumin x 5 -nutrition consult -follow lytes -monitor on tele #Acute diarrhea -cdiff pcr and gi panel pending,suspect r/t poor nutrition #ACute lactic acidosis -due to hypovolemia from gi losses, no severe sepsis #Protein calorie malnutrition -nutrition consult pending, has required ppn in past. BMP, albumin, phosphorus, mag labs am in case of ppn #Asymptomatic bacteriuria -UA with 3+ leukocytes, positive urinary sediment, 4+ bacteria -will cover empirically with IV ceftriaxone 1 g daily (initiated 10/17) -no leukocytosis. 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 -wheelchair-bound at baseline # SHAVON -noncompliant with CPAP, 2 L supplemental O2 at bedtime #h/o pe/dvt -continue xarelto dvt prophylaxis- xarelto full code Patient requires inpatient hospitalization at least 2 midnights for management acute hypokalemia/hypocalcemia, hypomagnesemia requiring IV electrolyte repletion, cardiac monitoring, and close monitoring of renal function and electrolyte levels <NIEEVS Garcia - Last Filed: 10/18/23 20:58> 53-year-old male with 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, on Xarelto , 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 who is chronically wheelchair-bound, and SHAVON noncompliant with CPAP on 2 L nocturnal O2 admitted for further management of acute hypokalemia, acute hypocalcemia, acute hypomagnesemia in the setting of poor nutrition and diarrhea #Acute hypokalemia/hypomagnesemia/hypocalcemia -K2.2, Mag 0.7, Ca 4.7 (corrected 6.2), albumin 1.8 -r/t poor nutrition and diarrhea -given 40meq KCl IV, 60meq KCl -Given 2g calcium gluconate -given 2 g IV magnesium -give iv albumin x 5 -nutrition consult -follow lytes -monitor on tele #Acute diarrhea -cdiff pcr and gi panel pending,suspect r/t poor nutrition #Protein calorie malnutrition -nutrition consult pending, has required ppn in past. BMP, albumin, phosphorus, mag labs am in case of ppn #Bacteriuria with pyuria -UA with 3+ leukocytes, positive urinary sediment, 4+ bacteria -will cover empirically with IV ceftriaxone 1 g daily (initiated 10/17) -no leukocytosis. 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 -wheelchair-bound at baseline # SHAVON -noncompliant with CPAP, 2 L supplemental O2 at bedtime #h/o pe/dvt -continue xarelto dvt prophylaxis- xarelto full code Patient requires inpatient hospitalization at least 2 midnights for management acute hypokalemia/hypocalcemia, hypomagnesemia requiring IV electrolyte repletion, cardiac monitoring, and close monitoring of renal function and electrolyte levels <Costa Rowell MD - Last Filed: 10/18/23 20:58> Quality Stroke Does the patient have a stroke diagnosis?: No <NIEVES Garcia - Last Filed: 10/18/23 20:58> VTE Prior VTE?: No <NIEVES Garcia - Last Filed: 10/18/23 20:58> VTE Risk Level:: Medical - moderate - high <NIEVES Garcia - Last Filed: 10/18/23 20:58> VTE Device Contraindication: Treatment Not Indicated <NIEVES Garcia - Last Filed: 10/18/23 20:58> VTE Drug Contraindication: N/A - Med Ordered <NIEVES Garcia - Last Filed: 10/18/23 20:58>
--- NOTE | 2023-10-18 19:59 | PC.NURSE ---
Dr. Alejandro and Dr. Rowell aware of BP/HR. pt denies cp/sob/n/v/d/dizziness at this time. resp even and unlabored. ivf bolus and albumin ordered and infusing per mar. pt repositioned to R. side per request, states is more comfortable now. pt is in a hospital bed. call viveros within reach.
[2023-10-18] MEDS: Albumin Human 25 % 100 ML IV (20:04)
[2023-10-18] MEDS: cefTRIAXone sodium 1 GM in 0.9 % Sodium Chloride 50 ML IV (20:44)
--- NOTE | 2023-10-18 21:30 | PC.NURSE ---
bp not improved with ivf and albumin infusion. Dr. Rowell called to bedside. pt denies symptoms at this time is axox4, resp even and unlabored, denies cp/sob/n/v/d/dizziness.
--- NOTE | 2023-10-18 21:50 | PM.EVENT ---
Event Note Date of Service: 10/18/23 Event Note: Was notified by RN that the patient's blood pressure was 79/48. 1L NS and albumin ordered. Repeat blood pressure after colloid and crystalloid resuscitation: 79/52. Patient denies dizziness or lightheadedness. No chest discomfort. Noted urine concerning for UTI. Norepinephrine ordered by ER provider. Talked to Dr. Martin, ICU and patient will be transferred to ICU for evaluation and treatment of shock. Time Spent With Patient Time: Total time managing care of this patient today ____ minutes.
[2023-10-18] MEDS: Norepinephrine Bitartrate/D5W 8 MG/250 ML PLAST..BAG 12.39 MG IV (21:53)
[2023-10-18] MEDS: Albumin Human 25 % 100 ML 133.33 ML IV ×2 (21:55→23:22)
--- NOTE | 2023-10-18 21:55 | PC.NURSE ---
2x 25%/100mL albumin infusing per Dr. Rowell and Dr. Alejandro verbal order. levophed started per protocol through peripheral iv; defer central line per Dr. Alejandro. awaiting ICU admission.
[2023-10-18 22:22] LABS: Troponin-I High Sensitivity 205.7 ng/L (<3.5-35.0)
--- NOTE | 2023-10-18 22:22 | PC.NURSE ---
Dr. Rowell aware last bag of potassium delay d/t incompatibility with iv infusions at this time. pt has 2x iv, unable to establish 3rd iv d/t difficult stick, 2 RN attempt.
[2023-10-18 22:26] LABS: B Type Natriuretic Peptide 27 pg/mL (<100)
[2023-10-18 22:36] LABS: Albumin Level 1.8 g/dL (3.5-5.0); Anion Gap 14 (12-20); Blood Urea Nitrogen 11 mg/dL (9-16); Calcium 5.1 mg/dL (8.4-10.2); Carbon Dioxide 21 mmol/L (22-29); Chloride 106 mmol/L (96-108); Creatinine Clr Calc Pharmacy 220.7; Estimated Glomerular Filt Rate > 60; Glucose Random 69 mg/dL (60-115); Magnesium 1.2 mg/dL (1.6-2.6); Phosphorus 3.9 mg/dL (2.7-4.5); Potassium 2.4 mmol/L (3.3-5.1); Sodium 139 mmol/L (135-145)
--- NOTE | 2023-10-18 23:05 | PM.CCN ---
Critical Care Event Note Summary Date of Service: 10/18/23 Code activated: No Narrative: This case had a high probability of a clinically significant, sudden, or life threatening deterioration of this patient's condition which required my full and direct attention, intervention and personal management.
--- NOTE | 2023-10-18 23:20 | PC.NURSE ---
Addendum entered by Jax Perez 10/18/23 23:23: albumin infused both bags started at 2155 and infused at [address] and Dr. Alejandro verbal order. unable to reflect in jul. Original Note: pt taken to ct scan and transferred to ICU with ease, no complications. BP as documented levophed titrated per jul. pt remained axox4, resp even and unlabored. albumin infused per jul.
--- NOTE | 2023-10-18 23:28 | P.EN_ITS ---
Documented by User: Noelle Grover NP 10/18/23 23:29 Event Note Date of Service: 10/18/23 Event Note: Mr. 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 He was admitted to the medical floor for management of acute hypokalemia/ hypocalcemia/ hypomagnesemia/ hypoalbuminemia, acute diarrhea, bacteriuria with pyuria, and acute hypotension. Of note, the patient was discharged from the hospital approximately 1 month ago, after a 1 month stay for ischemic bowel and resection.? While in the emergency room he received 40 mEq KCl IV, 60 mEq of KCl p.o.,? 2 g calcium gluconate IV, 2 g magnesium sulfate IV, albumin x5,? 1 L normal saline, 1 g? ceftriaxone. He remained hypotensive despite colloid and crystalloid resuscitation and was started on Levophed. The patient denied dizziness or lightheadedness. No chest discomfort. Orders placed for abdominal CT without contrast, repeat BMP, Mag, phos, albumin.? He was transferred to the ICU for management and treatment of shock and electrolyte abnormalities. Time Spent With Patient Time: Total time managing care of this patient today ____ minutes. Documented by User: Cj Martin MD 10/19/23 11:08 Event Note Date of Service: 10/19/23
[2023-10-19] VITALS (44 sets, daily range): BP systolic 74–123; BP diastolic 39–74; PULSE 82–123; RESP 15–34; TEMP 36.7–37.6; O2SAT 91–100; BMI 36.6
--- NOTE | 2023-10-19 | ECG_ITS ---
Test Reason : elevated trop Blood Pressure : / mmHG Vent. Rate : 095 BPM Atrial Rate : 095 BPM P-R Int : 138 ms QRS Dur : 098 ms QT Int : 438 ms P-R-T Axes : 050 023 062 degrees QTc Int : 550 ms Normal sinus rhythm Nonspecific ST and T wave abnormality Prolonged QT Abnormal ECG When compared with ECG of 18-OCT-2023 14:22, Sinus rhythm has replaced Junctional rhythm Nonspecific T wave abnormality now evident in Anterior leads Nonspecific T wave abnormality, improved in Lateral leads Referred By: Noelle Grover Electronically Signed By:Arnoldo Tidwell
[2023-10-19] MEDS: Potassium Chloride/H20 10 MEQ/100 ML PIGGYBACK 100 MEQ IV ×8 (00:29→09:19)
[2023-10-19] MEDS: 0.9 % Sodium Chloride Flush 3 ML SYRINGE IVFLUSH ×3 (00:32→15:44)
[2023-10-19] MEDS: Calcium Gluconate/NaCl,Iso-Osm 2 GM/100 ML PLAST..BAG IV ×2 (01:01→05:32)
[2023-10-19] MEDS: Magnesium Sulfate/H2O 2 GM/50 ML PIGGYBACK IV ×2 (01:38→04:58)
[2023-10-19] MEDS: Norepinephrine Bitartrate/D5W 8 MG/250 ML PLAST..BAG 42.13 MG IV (03:41)
[2023-10-19 04:18] LABS: MANUAL DIFF FLAG NO
[2023-10-19 04:19] LABS: Basophils Percent Auto 0.5 % (0-2); Eosinophils Percent Auto 0.7 % (0-4); Hemoglobin 9.6 g/dl (14.0-18.0); Imm Gran Abs Auto 0.04 X10*3/uL (0.00-0.03); Imm Gran Pct Auto 0.7 % (0.0-0.4); Lymphocytes Absolute Auto 2.9 X10*3/uL (1.2-4.9); Lymphocytes Percent Auto 48.3 % (20-40); Mean Corpuscular HGB Conc 34.3 g/dl (31.0-36.0); Mean Corpuscular Volume 84.6 fL (80.0-98.0); Mean Platelet Volume 9.3 fL (9.4-12.4); Monocytes Absolute Auto 0.7 X10*3/uL (0.1-1.2); Monocytes Percent Auto 11.2 % (2-11); Neutrophils Absolute Auto 2.3 x10*3/uL (2.0-8.3); Neutrophils Percent Auto 38.6 % (45-73); Platelet Count 368 X10*3/uL (160-400); Red Blood Count 3.31 X10*6/uL (4.60-5.80); Red Cell Distribution Width 17.1 % (11.0-16.0); White Blood Count 5.9 X10*3/uL (4.8-10.8)
[2023-10-19 04:20] LABS: Venous Blood Gas Refer to POC result
[2023-10-19 04:23] LABS: VBG Base Excess -0.1 mmol/L; VBG HCO3 20 mmol/L (22-26); VBG pCO2 23 mmHg; VBG pH 7.55 (7.32-7.43); VBG pO2 115 mmHg
[2023-10-19 04:38] LABS: Albumin Level 2.5 g/dL (3.5-5.0); Anion Gap 20 (12-20); Blood Urea Nitrogen 9 mg/dL (9-16); Calcium 5.6 mg/dL (8.4-10.2); Carbon Dioxide 17 mmol/L (22-29); Chloride 106 mmol/L (96-108); Creatinine Clr Calc Pharmacy 206.4; Estimated Glomerular Filt Rate > 60; Glucose Random 105 mg/dL (60-115); Magnesium 1.5 mg/dL (1.6-2.6); Phosphorus 3.6 mg/dL (2.7-4.5); Potassium 2.5 mmol/L (3.3-5.1); Sodium 140 mmol/L (135-145)
[2023-10-19 04:44] LABS: Troponin-I High Sensitivity 384.6 ng/L (<3.5-35.0)
[2023-10-19] MEDS: Albumin Human 25 % 100 ML IV ×7 (05:01→22:34)
--- NOTE | 2023-10-19 09:13 | PHA.MEDREC ---
Pharmacy Consult ? Medication Reconciliation Pharmacy has completed the medication reconciliation.
--- NOTE | 2023-10-19 09:40 | P.CONGS_ITS ---
History of Present Illness Consult details Consult date: 10/19/23 Narrative: 53-year-old male well known to me, admitted for hypokalemia. 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 I had done laparotomy and small-bowel resection of a long segment for ischemic bowel last July,. The patient was in the hospital for an extended period of time it was discharged about a month ago. He had just finished IVIG infusion and started to feel shaky yesterday. He had some lethargy and weakness so was brought to the emergency room. He was noted to be hypokalemic and hypotensive. He had a CAT scan done as well showing dilated small bowel loops proximal to the old entero anastomosis The patient otherwise denies any abdominal pain or any vomiting. He says he has been doing relatively well since discharge from the hospital. He says he has been tolerating oral intake well. He does admit to having multiple loose stools daily. He currently feels much better this morning. Review of Systems 2 Constitutional: Constitutional: Denies chills, Reports fatigue, Denies fever(s), Reports lethargy, Reports malaise and Reports weakness Cardiovascular: Cardiovascular: Denies chest pain, Denies dyspnea and Denies dyspnea on exertion Respiratory: Respiratory: Denies cough, Denies dyspnea and Denies dyspnea on exertion Gastrointestinal: Gastrointestinal: Denies hematochezia and Denies change in bowel habits Genitourinary: Genitourinary: Denies hematuria and Denies difficulty urinating Musculoskeletal: Musculoskeletal: Denies back pain and Denies limited range of motion Neurologic: Denies focal weakness, Denies convulsions and Reports weakness Psychiatric: Psychiatric: Denies depression and Denies mood swings Endocrine: Endocrine: Reports fatigue PMFSH Past Medical History Medical History Abdominal pain Morbid obesity Guillain-[place] syndrome Femur fracture, right DVT (deep venous thrombosis) Pulmonary embolism Surgical History Surgical History Status post small bowel resection H/O hand surgery Social History Social History Household Members: Significant Other Housing: Apartment Do you presently have visiting nurse or other home services: Yes Alcohol intake: current Alcohol intake frequency: a few times a week Patient Tobacco Use Status: Former Tobacco user Substance Use Type: Marijuana Advance Directives Date on File: 08/06/23 service: No Meds Allergies Allergy/AdvReac Type Severity Reaction Status Date / Time No Known Allergies Allergy Verified 10/18/23 14:20 Active Medications: Current Medications Acetaminophen (Acetaminophen 325 Mg Tablet) 650 mg PO Q6H PRN PRN Reason: Pain, Mild (Pain Scale 1-3) Ceftriaxone Sodium 1 gm/ (Sodium Chloride) 50 mls @ 100 mls/hr IV Q24H [facility] Last Infusion: 10/18/23 21:14 Dose: Infused Norepinephrine Bitartrate (Levophed) 8 mg in 250 mls @ 0 mls/hr IV .Q0M [facility]; Protocol Last Titration: 10/19/23 07:21 Dose: 0.09 mcg/kg/min, 22.31 mls/hr Albumin Human (Kedbumin 25 %) 100 mls @ 100 mls/hr IV Q6H [facility] Stop: 10/21/23 03:59 Last Admin: 10/19/23 09:22 Dose: 100 mls/hr Ondansetron HCl (Ondansetron Hcl 4 Mg/2 Ml Vial) 4 mg IVPUSH Q8H PRN PRN Reason: Nausea and Vomiting Pharmacy Consult (Consult Rx Vancomycin Dosing) 1 each MISCELLANE DAILY PRN PRN Reason: Consult order Rivaroxaban (Rivaroxaban 20 Mg Tablet) 20 mg PO DAILY@1730 [facility] Sodium Chloride (0.9 % Sodium Chloride Flush 3 Ml Syringe) 3 ml IVFLUSH QSHIFT [facility] Last Admin: 10/19/23 08:11 Dose: 3 ml Home Medications ?Medication ?Instructions ?Recorded ?Confirmed ?Last Taken ?Type rivaroxaban 20 mg tablet (Xarelto) 20 mg PO DAILY@1700 10/18/23 10/19/23 10/18/23 History cholecalciferol (vitamin D3) 25 25 mcg PO DAILY 10/19/23 10/19/23 Unknown History mcg (1,000 unit) tablet (Vitamin D3) Physical Exam 2 Vital Signs: Vital Signs: Last Vital Signs Temp 98.5 F 10/19/23 08:00 Pulse 99 10/19/23 09:00 Resp 26 H 10/19/23 09:00 BP 114/41 L 10/19/23 09:00 Pulse Ox 100 10/19/23 09:00 O2 Del Method Nasal Cannula 10/19/23 09:00 O2 Flow Rate 2 10/19/23 09:00 Oxygen Flow Rate 2 10/18/23 14:11 BMI result Body Mass Index 36.6 Const: Other: obese, looks well, comfortable, denies abdominal pain General: comfortable and no acute distress Results Labs 10/20/23 05:26 10/20/23 05:26 Labs: Abnormal lab results 10/18/23 10/18/23 10/18/23 Range/Units 14:40 16:07 16:58 RBC 3.88 L (4.60-5.80) X10*6/uL Hgb 11.2 L (14.0-18.0) g/dl Hct 33.1 L (42.0-52.0) % RDW 17.5 H (11.0-16.0) % MPV 9.3 L (9.4-12.4) fL Immature Gran % (Auto) 1.2 H (0.0-0.4) % Neut % (Auto) 43.1 L (45-73) % Lymph % (Auto) 45.8 H (20-40) % [place] % (Auto) (2-11) % Abs Immat Gran (auto) 0.08 H (0.00-0.03) X10*3/uL PT 41.8 H (11.1-13.3) SEC INR 3.4 H (0.9-1.1) VBG pH (7.32-7.43) VBG HCO3 (22-26) mmol/L Potassium 2.2 L* D (3.3-5.1) mmol/L Carbon Dioxide (22-29) mmol/L Lactic Acid 3.0 H* (0.5-2.0) mmol/L Calcium 4.7 L* D (8.4-10.2) mg/dL Magnesium 0.7 L* (1.6-2.6) mg/dL AST 44 H (5-37) U/L Troponin I High Sens (<3.5-35.0) ng/L Total Protein 5.6 L (6.5-8.0) g/dL Albumin 1.6 L (3.5-5.0) g/dL Lipase 4 L (8-78) U/L Urine Protein 30 (1+) H (Neg-Trace) mg/dL Ur Leukocyte Esterase Large (3+) H (Negative) Urine WBC >50 H (0-5) /HPF 10/18/23 10/18/23 10/19/23 Range/Units 21:55 21:57 04:10 RBC 3.31 L (4.60-5.80) X10*6/uL Hgb 9.6 L (14.0-18.0) g/dl Hct 28.0 L (42.0-52.0) % RDW 17.1 H (11.0-16.0) % MPV 9.3 L (9.4-12.4) fL Immature Gran % (Auto) 0.7 H (0.0-0.4) % Neut % (Auto) 38.6 L (45-73) % Lymph % (Auto) 48.3 H (20-40) % [place] % (Auto) 11.2 H (2-11) % Abs Immat Gran (auto) 0.04 H (0.00-0.03) X10*3/uL PT (11.1-13.3) SEC INR (0.9-1.1) VBG pH (7.32-7.43) VBG HCO3 (22-26) mmol/L Potassium 2.4 L* 2.5 L* (3.3-5.1) mmol/L Carbon Dioxide 21 L 17 L (22-29) mmol/L Lactic Acid (0.5-2.0) mmol/L Calcium 5.1 L* D 5.6 L* D (8.4-10.2) mg/dL Magnesium 1.2 L* 1.5 L (1.6-2.6) mg/dL AST (5-37) U/L Troponin I High Sens 205.7 H* D 384.6 H* D (<3.5-35.0) ng/L Total Protein (6.5-8.0) g/dL Albumin 1.8 L 2.5 L (3.5-5.0) g/dL Lipase (8-78) U/L Urine Protein (Neg-Trace) mg/dL Ur Leukocyte Esterase (Negative) Urine WBC (0-5) /HPF 10/19/23 Range/Units 04:15 RBC (4.60-5.80) X10*6/uL Hgb (14.0-18.0) g/dl Hct (42.0-52.0) % RDW (11.0-16.0) % MPV (9.4-12.4) fL Immature Gran % (Auto) (0.0-0.4) % Neut % (Auto) (45-73) % Lymph % (Auto) (20-40) % [place] % (Auto) (2-11) % Abs Immat Gran (auto) (0.00-0.03) X10*3/uL PT (11.1-13.3) SEC INR (0.9-1.1) VBG pH 7.55 H (7.32-7.43) VBG HCO3 20 L (22-26) mmol/L Potassium (3.3-5.1) mmol/L Carbon Dioxide (22-29) mmol/L Lactic Acid (0.5-2.0) mmol/L Calcium (8.4-10.2) mg/dL Magnesium (1.6-2.6) mg/dL AST (5-37) U/L Troponin I High Sens (<3.5-35.0) ng/L Total Protein (6.5-8.0) g/dL Albumin (3.5-5.0) g/dL Lipase (8-78) U/L Urine Protein (Neg-Trace) mg/dL Ur Leukocyte Esterase (Negative) Urine WBC (0-5) /HPF Short CBC 10/18/23 10/19/23 Range/Units 14:40 04:10 WBC 6.8 5.9 (4.8-10.8) X10*3/uL Hgb 11.2 L 9.6 L (14.0-18.0) g/dl Hct 33.1 L 28.0 L (42.0-52.0) % Plt Count 387 368 (160-400) X10*3/uL BMP 10/18/23 10/18/23 10/19/23 16:07 21:55 04:10 Sodium 135 139 140 Potassium 2.2 L* D 2.4 L* 2.5 L* Chloride 101 106 106 Carbon Dioxide 22 21 L 17 L BUN 12 11 9 Creatinine 0.66 0.58 0.62 Calcium 4.7 L* D 5.1 L* D 5.6 L* D Liver Function 10/18/23 10/18/23 10/19/23 Range/Units 16:07 21:55 04:10 Total Bilirubin 0.8 (0.0-1.0) mg/dL Direct Bilirubin 0.5 (0.0-0.5) mg/dL AST 44 H (5-37) U/L ALT 34 (0-40) U/L Alkaline Phosphatase 97 (39-117) U/L Albumin 1.6 L 1.8 L 2.5 L (3.5-5.0) g/dL Urine 10/18/23 Range/Units 16:58 Urine Color Dark Yellow Urine Appearance Cloudy Urine pH 6.5 (5.0-9.0) Ur Specific [place] 1.015 (1.005-1.025) Urine Protein 30 (1+) H (Neg-Trace) mg/dL Urine Glucose (UA) Negative (Negative) mg/dL All other labs normal. Assessment and Plan (1) Acute hypokalemia: Status: Acute This is likely secondary to losses from his bowel movements with chronic loose stools. He is exam is otherwise benign. I have reviewed his CAT scan in the findings are chronic after his small-bowel resection last July, Has a very benign abdominal exam. He actually has been tolerating diet well. He likely has developed stricture at the anastomosis from his ischemic bowel disease The exact etiology of his ischemic bowel disease from before is uncertain. He may have diet as tolerated. The rest of care will depend on the assistant professor of religion. I will follow along while he is in the hospital. Procedures Date of Service Date of Service: 10/20/23
--- NOTE | 2023-10-19 10:06 | MHC.CM.PN ---
Met with pt to discuss d/c planning needs: pt lives w/girlfriend whom he states is a nurse and provides care for him. He was recently d/c'd from [facility]. He uses [employer] for home O2 needs and is primarily w/c bound. Mercedes, pt's gf, assists w/care needs and transportation. She is also his HCP (on file). Pt would like a referral back to [facility] for wound care. Mercedes will transport pt to home. CM to file
--- NOTE | 2023-10-19 11:08 | P.PNCC_ITS ---
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 No events overnight. Pressor requirements are improving. Critical Care Time (minutes): 60 Physical Exam 2 Vital Signs: Vital Signs: Last Vital Signs Temp 98.5 F 10/19/23 08:00 Pulse 96 10/19/23 10:51 Resp 15 10/19/23 10:00 BP 111/71 10/19/23 10:51 Pulse Ox 94 10/19/23 10:00 O2 Del Method Nasal Cannula 10/19/23 10:00 O2 Flow Rate 2 10/19/23 10:00 Oxygen Flow Rate 2 10/18/23 14:11 BMI result Body Mass Index 36.6 Const: General: no acute distress, alert and awake Eyes: Sclerae: sclerae normal EOM: EOMs intact bilaterally Neck: Neck: Yes no lymphadenopathy, Yes trachea midline and Yes supple Resp: Effort & Inspection: normal respiratory effort and no respiratory distress Auscultation: clear to auscultation bilaterally Cardio: Rate: regular rate Rhythm: regular rhythm Heart sounds: no gallops, no murmurs and no rubs GI: Palpation (GI): Soft to palpation and Other GI palpation findings present ( Nontender) Auscultation: normal bowel sounds Extrem: General: Yes no pedal edema, No clubbing and No cyanosis Objective Data Labs 10/19/23 04:10 10/19/23 04:10 Labs: Laboratory Results - last 24 hr 10/18/23 10/18/23 10/18/23 14:40 14:41 15:21 WBC 6.8 RBC 3.88 L Hgb 11.2 L Hct 33.1 L MCV 85.3 MCH 28.9 MCHC 33.8 RDW 17.5 H Plt Count 387 MPV 9.3 L Immature Gran % (Auto) 1.2 H Neut % (Auto) 43.1 L Lymph % (Auto) 45.8 H [place] % (Auto) 9.4 Eos % (Auto) 0.1 Baso % (Auto) 0.4 Lymph # (Auto) 3.1 [place] # (Auto) 0.6 Eos # (Auto) 0.0 Baso # (Auto) 0.0 Abs Immat Gran (auto) 0.08 H Absolute Neuts (auto) 2.9 Absolute Nucleated RBC 0.000 Nucleated RBC % (auto) 0.0 PT 41.8 H INR 3.4 H VBG pH VBG pCO2 VBG pO2 VBG HCO3 VBG O2 Saturation VBG Base Excess Sodium Potassium Chloride Carbon Dioxide Anion Gap BUN Creatinine Estim Creat Clear Calc Estimated GFR Random Glucose Lactic Acid 3.0 H* Lactic Acid F/U @ 2Hr Calcium Phosphorus Magnesium Total Bilirubin Direct Bilirubin AST ALT Alkaline Phosphatase Troponin I High Sens 11.1 D B-Natriuretic Peptide Total Protein Albumin Lipase Urine Color Urine Appearance Urine pH Ur Specific [place] Urine Protein Urine Glucose (UA) Urine Ketones Urine Blood Urine Nitrite Ur Leukocyte Esterase Urine RBC Urine WBC Ur Squamous Epith Cells Urine Bacteria Hyaline Casts Urine Opiates Screen Ur Buprenorphine Scrn Ur Oxycodone Screen Urine Methadone Screen Urine Fentanyl Screen Ur Barbiturates Screen Ur Phencyclidine Scrn Ur Amphetamines Screen U Benzodiazepines Scrn Urine Cocaine Screen U Marijuana (THC) Screen Ethyl Alcohol < 10 10/18/23 10/18/23 10/18/23 16:07 16:58 17:26 WBC RBC Hgb Hct MCV MCH MCHC RDW Plt Count MPV Immature Gran % (Auto) Neut % (Auto) Lymph % (Auto) [place] % (Auto) Eos % (Auto) Baso % (Auto) Lymph # (Auto) [place] # (Auto) Eos # (Auto) Baso # (Auto) Abs Immat Gran (auto) Absolute Neuts (auto) Absolute Nucleated RBC Nucleated RBC % (auto) PT INR VBG pH VBG pCO2 VBG pO2 VBG HCO3 VBG O2 Saturation VBG Base Excess Sodium 135 Potassium 2.2 L* D Chloride 101 Carbon Dioxide 22 Anion Gap 14 BUN 12 Creatinine 0.66 Estim Creat Clear Calc 193.9 Estimated GFR > 60 Random Glucose 79 Lactic Acid Lactic Acid F/U @ 2Hr 1.6 Calcium 4.7 L* D Phosphorus Magnesium 0.7 L* Total Bilirubin 0.8 Direct Bilirubin 0.5 AST 44 H ALT 34 Alkaline Phosphatase 97 Troponin I High Sens B-Natriuretic Peptide Total Protein 5.6 L Albumin 1.6 L Lipase 4 L Urine Color Dark Yellow Urine Appearance Cloudy Urine pH 6.5 Ur Specific [place] 1.015 Urine Protein 30 (1+) H Urine Glucose (UA) Negative Urine Ketones Negative Urine Blood Negative Urine Nitrite Negative Ur Leukocyte Esterase Large (3+) H Urine RBC 0-2 Urine WBC >50 H Ur Squamous Epith Cells 0-2 Urine Bacteria 4+ Hyaline Casts 3-5 Urine Opiates Screen Not Detected Ur Buprenorphine Scrn Not Detected Ur Oxycodone Screen Not Detected Urine Methadone Screen Not Detected Urine Fentanyl Screen Not Detected Ur Barbiturates Screen Not Detected Ur Phencyclidine Scrn Not Detected Ur Amphetamines Screen Not Detected U Benzodiazepines Scrn Not Detected Urine Cocaine Screen Not Detected U Marijuana (THC) Screen Not Detected Ethyl Alcohol 10/18/23 10/18/23 10/19/23 21:55 21:57 04:10 WBC 5.9 RBC 3.31 L Hgb 9.6 L Hct 28.0 L MCV 84.6 MCH 29.0 MCHC 34.3 RDW 17.1 H Plt Count 368 MPV 9.3 L Immature Gran % (Auto) 0.7 H Neut % (Auto) 38.6 L Lymph % (Auto) 48.3 H [place] % (Auto) 11.2 H Eos % (Auto) 0.7 Baso % (Auto) 0.5 Lymph # (Auto) 2.9 [place] # (Auto) 0.7 Eos # (Auto) 0.0 Baso # (Auto) 0.0 Abs Immat Gran (auto) 0.04 H Absolute Neuts (auto) 2.3 Absolute Nucleated RBC 0.000 Nucleated RBC % (auto) 0.0 PT INR VBG pH VBG pCO2 VBG pO2 VBG HCO3 VBG O2 Saturation VBG Base Excess Sodium 139 140 Potassium 2.4 L* 2.5 L* Chloride 106 106 Carbon Dioxide 21 L 17 L Anion Gap 14 20 BUN 11 9 Creatinine 0.58 0.62 Estim Creat Clear Calc 220.7 206.4 Estimated GFR > 60 > 60 Random Glucose 69 105 Lactic Acid Lactic Acid F/U @ 2Hr Calcium 5.1 L* D 5.6 L* D Phosphorus 3.9 3.6 Magnesium 1.2 L* 1.5 L Total Bilirubin Direct Bilirubin AST ALT Alkaline Phosphatase Troponin I High Sens 205.7 H* D 384.6 H* D B-Natriuretic Peptide 27 Total Protein Albumin 1.8 L 2.5 L Lipase Urine Color Urine Appearance Urine pH Ur Specific [place] Urine Protein Urine Glucose (UA) Urine Ketones Urine Blood Urine Nitrite Ur Leukocyte Esterase Urine RBC Urine WBC Ur Squamous Epith Cells Urine Bacteria Hyaline Casts Urine Opiates Screen Ur Buprenorphine Scrn Ur Oxycodone Screen Urine Methadone Screen Urine Fentanyl Screen Ur Barbiturates Screen Ur Phencyclidine Scrn Ur Amphetamines Screen U Benzodiazepines Scrn Urine Cocaine Screen U Marijuana (THC) Screen Ethyl Alcohol 10/19/23 04:15 WBC RBC Hgb Hct MCV MCH MCHC RDW Plt Count MPV Immature Gran % (Auto) Neut % (Auto) Lymph % (Auto) [place] % (Auto) Eos % (Auto) Baso % (Auto) Lymph # (Auto) [place] # (Auto) Eos # (Auto) Baso # (Auto) Abs Immat Gran (auto) Absolute Neuts (auto) Absolute Nucleated RBC Nucleated RBC % (auto) PT INR VBG pH 7.55 H VBG pCO2 23 VBG pO2 115 VBG HCO3 20 L VBG O2 Saturation 100.0 VBG Base Excess -0.1 Sodium Potassium Chloride Carbon Dioxide Anion Gap BUN Creatinine Estim Creat Clear Calc Estimated GFR Random Glucose Lactic Acid Lactic Acid F/U @ 2Hr Calcium Phosphorus Magnesium Total Bilirubin Direct Bilirubin AST ALT Alkaline Phosphatase Troponin I High Sens B-Natriuretic Peptide Total Protein Albumin Lipase Urine Color Urine Appearance Urine pH Ur Specific [place] Urine Protein Urine Glucose (UA) Urine Ketones Urine Blood Urine Nitrite Ur Leukocyte Esterase Urine RBC Urine WBC Ur Squamous Epith Cells Urine Bacteria Hyaline Casts Urine Opiates Screen Ur Buprenorphine Scrn Ur Oxycodone Screen Urine Methadone Screen Urine Fentanyl Screen Ur Barbiturates Screen Ur Phencyclidine Scrn Ur Amphetamines Screen U Benzodiazepines Scrn Urine Cocaine Screen U Marijuana (THC) Screen Ethyl Alcohol Microbiology Microbiology Results: Microbiology 10/18/23 17:37 Urine clean catch - Urine platt top Urine Culture - Preliminary Gram negative daniela Progress Note: A&P Assessment and plan (1) UTI (urinary tract infection): Status: Acute (2) Septic shock: Status: Acute (3) Hypoalbuminemia: Status: Acute (4) Hypocalcemia: Status: Acute (5) Hypomagnesemia: Status: Acute (6) Hypomagnesemia: Status: Acute (7) Status post small bowel resection: Status: Acute Plan Assessment: 53-year-old gentleman with underlying history of bowel with suction and primary anastomosis for ischemic bowel, DVT/PE, SHAVON admitted with multiple electrolyte abnormalities and septic shock secondary to Gram-negative UTI. Plan: Neuro: No acute issues. Cardiac: Septic shock, continue to titrate off pressor support as tolerated. Pulmonary: No acute issues. Renal: Multiple electrolyte abnormalities, continue with electrolyte replacements. Endo: No acute issues. GI: History of bowel with suction with ?partial SBO on CT imaging, evaluated by General surgery with no concern for SBO at this time. ID: Gram-negative UTI, on empiric ceftriaxone. Heme/Onc: No acute issues. Psych: No acute issues. Miscellaneous: No acute issues. Prophylaxis: Xarelto Diet: Clear liquids Critical care time spent: 60 minutes Quality Stroke Does the patient have a stroke diagnosis?: No VTE Prior VTE?: No VTE Risk Level:: Medical - moderate - high VTE Device Contraindication: Treatment Not Indicated VTE Drug Contraindication: N/A - Med Ordered
--- NOTE | 2023-10-19 11:31 | MHC.CLN ---
RE: CONSULT PT IS AT HIGH RISK FOR MALNUTRITION R/T CHRONIC POOR PO INTAKE, CHRONIC DIARRHEA, PRESSURE INJURY AND HX SBO WITH SX ON PREVIOUS ADMISSION FAMILIAR WITH PT FROM PREVIOUS ADMISSION DIET ADVANCED TO CLEAR LIQUID PER MD RECOMMEND ADDING GELATEIN AND ENSURE CLEAR SUPPLEMENTS WITH MEALS GELATEIN PROVIDES 480KCALS, 60G PROTEIN ENSURE CLEAR TO PROVIDE 720KCALS, 24G PROTEIN SUPPLEMENTS TO PROMOTE SLOW WOUND HEALING MONITOR PO INTAKE CLOSELY CONSULT RD IF PN NEEDED SEE ALSO FULL CLINICAL NUTRITION ASSESSMENT
--- NOTE | 2023-10-19 15:19 | P.EN_ITS ---
Event Note Date of Service: 10/19/23 Event Note: Transferred from ICU. Discussed with attending window shade cutter and mounter. Septic shock secondary to Gram-negative UTI s/p pressors in ICU stable BP at this time Multiple electrolyte abnormalities Secondary to poor nutrition and diarrhea Hypokalemia/hypomagnesemia/hypocalcemia Diarrhea C diff and GI panel ordered History of Guillain-[place] syndrome Receiving IVIG infusions Wheelchair-bound at baseline Stage II decubitus ulcer right buttock wound care consult Sleep apnea Noncompliant with CPAP Uses 2 L of supplemental oxygen at bedtime Time Spent With Patient Time: Total time managing care of this patient today ____ minutes.
[2023-10-19] MEDS: Acetaminophen 325 MG TABLET 650 MG PO (15:43)
[2023-10-19] MEDS: Norepinephrine Bitartrate/D5W 8 MG/250 ML PLAST..BAG 12.47 MG IV (16:40)
[2023-10-19] MEDS: Rivaroxaban 20 MG TABLET PO (18:32)
[2023-10-19 19:37] LABS: Anion Gap 14 (12-20); Blood Urea Nitrogen 6 mg/dL (9-16); Calcium 6.8 mg/dL (8.4-10.2); Carbon Dioxide 20 mmol/L (22-29); Chloride 111 mmol/L (96-108); Creatinine Clr Calc Pharmacy 242.3; Estimated Glomerular Filt Rate > 60; Glucose Random 116 mg/dL (60-115); Magnesium 1.9 mg/dL (1.6-2.6); Sodium 142 mmol/L (135-145)
[2023-10-19] MEDS: cefTRIAXone sodium 1 GM in 0.9 % Sodium Chloride 50 ML IV (20:24)
[2023-10-19 20:25] LABS: Albumin Level 2.8 g/dL (3.5-5.0)
[2023-10-19] MEDS: Potassium Chloride Packet 20 MEQ PACKET 40 MEQ PO (20:41)
[2023-10-19] MEDS: Simethicone 80 MG TAB.CHEW PO (20:46)
--- NOTE | 2023-10-19 21:03 | HO.WOUND ---
Wound Consult: Initial 53yr old? Male admitted to [facility] on 10/18/23? with a recent complex medical admission.? See progress notes and H&P for detailed history.? Wound consult placed for Right Buttock wound POA.? Patient agreeable to assessment and photo documentation.? Of note patient in ICU level of care in standard sindy bed will place order for Agility Extra Long Bed with bolsters and [place]. This patient is known to this policy writer from previous admission and was discharged with Left great toe neuropathic wound. Left Great Toe Etiology: ?Neuropathic wound Measurements: 0.2cm x 0.2cm x 0.1cm Wound Bed: small adherent stable scab Drainage / Odor: none Edges: ? well defined attached Joy wound: ? dry tissue with hypopigmentation Pain: denies pain reports neuropathy Goals of Treatment: ?Continue to off load pressure - no topical dressings needed at this time but direct care team to monitor for worsening Right Ischium Etiology: ?Unstageable Pressure Injury POA Measurements: 1cm x 1cm x 0.2cm Wound Bed: adherent pale yellow slough with pale pink wound bed Drainage / Odor: serosang - no dodor noted Edges: ? well defined and unattached Joy wound: ? Mild pink MASD noted - No induration no fluctance and no s/s of infection at this time Pain: reports significant pain Goals of Treatment: ?Continue to off load pressure - Triad and foam dressing to aid in off loading Recommendations: 1. Turn and Reposition every 2 hours and as needed for patient comfort.? Use pillows or wedges to support off loading positions. 2. Off Load all bony prominences with use of pillows and heel boots if needed.? Apply Preventative foams where needed. ? 3. Monitor for incontinence and moisture control, use barrier creams when needed for prevention and treatment. 4. Provide adequate and supplemental nutrition.? 5.Order low air loss mattress Bariatric bed.? Agility called for bed supervisor fleshing. 6.? Buttock, Sacrum and Coccyx -? Off Load Pressure - Barrier cream twice daily to protect from moisture and friction. 7. Right Ischuim - Off Load Pressure - Cleanse and irrigate with NS, pat dry. Apply light layer of Triad to wound bed, cover with foam. Change every other days and PRN. 8. Left Great Toe - Cleanse with NS moist gauze. Observe for wound progression - reconsult wound care nurse if worsening. No topical dressing needed at this time. Re-consult wound care Nurse for wound deterioration or wound changes. Initialized on 09/16/23 15:04 - END OF NOTE
[2023-10-19] MEDS: Calcium Gluconate/NaCl,Iso-Osm 1 GM/50 ML PLAST..BAG IV (21:05)
[2023-10-19] MEDS: Norepinephrine Bitartrate/D5W 8 MG/250 ML PLAST..BAG 37.41 MG IV (23:16)
[2023-10-20] VITALS (29 sets, daily range): BP systolic 88–135; BP diastolic 53–96; PULSE 87–115; RESP 18–27; TEMP 36.4–37.1; O2SAT 100; BMI 36.9
[2023-10-20] MEDS: Albumin Human 25 % 100 ML IV ×6 (03:08→22:38)
[2023-10-20 05:44] LABS: VBG Base Excess 4.4 mmol/L; VBG HCO3 26 mmol/L (22-26); VBG pCO2 31 mmHg; VBG pH 7.53 (7.32-7.43); VBG pO2 36 mmHg
[2023-10-20 05:54] LABS: Basophils Percent Auto 0.6 % (0-2); Eosinophils Absolute Auto 0.1 X10*3/uL (0.0-0.4); Eosinophils Percent Auto 1.3 % (0-4); Hemoglobin 8.7 g/dl (14.0-18.0); Imm Gran Abs Auto 0.03 X10*3/uL (0.00-0.03); Imm Gran Pct Auto 0.6 % (0.0-0.4); Lymphocytes Absolute Auto 2.5 X10*3/uL (1.2-4.9); Lymphocytes Percent Auto 53.4 % (20-40); MANUAL DIFF FLAG SCAN; Mean Corpuscular HGB Conc 33.5 g/dl (31.0-36.0); Mean Corpuscular Volume 86.7 fL (80.0-98.0); Mean Platelet Volume 9.5 fL (9.4-12.4); Monocytes Absolute Auto 0.7 X10*3/uL (0.1-1.2); Monocytes Percent Auto 13.7 % (2-11); Neutrophils Absolute Auto 1.5 x10*3/uL (2.0-8.3); Neutrophils Percent Auto 30.4 % (45-73); Platelet Count 310 X10*3/uL (160-400); Red Cell Distribution Width 17.8 % (11.0-16.0); SCAN SMEAR FLAG 1; White Blood Count 4.8 X10*3/uL (4.8-10.8)
[2023-10-20 05:56] LABS: Venous Blood Gas Refer to POC result
[2023-10-20 06:29] LABS: SLIDE REVIEW VERIFIED
[2023-10-20 06:31] LABS: Alanine Aminotransferase 25 U/L (0-40); Albumin Level 2.7 g/dL (3.5-5.0); Alkaline Phosphatase 73 U/L (39-117); Anion Gap 14 (12-20); Aspartate Amino Transferase 36 U/L (5-37); Bilirubin Total 1.2 mg/dL (0.0-1.0); Blood Urea Nitrogen 4 mg/dL (9-16); Calcium 6.9 mg/dL (8.4-10.2); Carbon Dioxide 20 mmol/L (22-29); Chloride 109 mmol/L (96-108); Creatinine Clr Calc Pharmacy 238.6; Estimated Glomerular Filt Rate > 60; Glucose Random 112 mg/dL (60-115); Magnesium 1.9 mg/dL (1.6-2.6); Phosphorus 2.6 mg/dL (2.7-4.5); Potassium 2.7 mmol/L (3.3-5.1); Sodium 140 mmol/L (135-145); Total Protein 5.3 g/dL (6.5-8.0)
[2023-10-20] MEDS: Calcium Gluconate/NaCl,Iso-Osm 2 GM/100 ML PLAST..BAG IV (07:34)
[2023-10-20] MEDS: Potassium Chloride Packet 20 MEQ PACKET 40 MEQ PO (07:40)
[2023-10-20] MEDS: Potassium Phosphate/NS 15 MMOL/250 ML PLAST..BAG 62.5 MMOL IV ×2 (07:40→11:42)
[2023-10-20] MEDS: 0.9 % Sodium Chloride Flush 3 ML SYRINGE IVFLUSH (07:50)
--- NOTE | 2023-10-20 08:06 | P.PNGS_ITS ---
Subjective Subjective Date of Service: 10/20/23 Interval history: Denies abdominal pain No nausea or vomiting Has flatus and BMs Physical Exam 2 Vital Signs: Vital Signs: Last Vital Signs Temp 98.8 F 10/19/23 23:00 Pulse 94 10/20/23 07:00 Resp 22 H 10/20/23 07:00 BP 105/66 10/20/23 07:00 Pulse Ox 100 10/20/23 07:00 O2 Del Method Nasal Cannula 10/20/23 07:00 O2 Flow Rate 2 10/20/23 07:00 Oxygen Flow Rate 2 10/18/23 14:11 BMI result Body Mass Index 36.9 Const: Other: Alert General: comfortable and no acute distress Resp: Effort & Inspection: normal respiratory effort Cardio: Rate: regular rate GI: Palpation (GI): Soft to palpation and not firm Objective Data Active Medications Acetaminophen (Acetaminophen 325 Mg Tablet) 650 mg PO Q6H PRN PRN Reason: Pain, Mild (Pain Scale 1-3) Last Admin: 10/19/23 15:43 Dose: 650 mg Documented By: CHIDI Ceftriaxone Sodium 1 gm/ (Sodium Chloride) 50 mls @ 100 mls/hr IV Q24H [facility] Last Infusion: 10/19/23 20:59 Dose: Infused Documented By: CHARISMA Albumin Human (Kedbumin 25 %) 100 mls @ 100 mls/hr IV Q6H [facility] Stop: 10/21/23 03:59 Last Infusion: 10/20/23 04:12 Dose: Infused Documented By: CHARISMA Norepinephrine Bitartrate (Levophed) 8 mg in 250 mls @ 0 mls/hr IV .Q0M [facility]; Protocol Last Titration: 10/20/23 05:30 Dose: 0 mcg/kg/min, 0 mls/hr Documented By: CHARISMA Potassium Phosphate (Kphos) 15 mmol in 250 mls @ 62.5 mls/hr IV Q4H [facility] Stop: 10/20/23 15:59 Last Admin: 10/20/23 07:40 Dose: 62.5 mls/hr Documented By: SHRERI Albumin Human (Kedbumin 25 %) 100 mls @ 100 mls/hr IV Q1H [facility] Stop: 10/20/23 08:44 Calcium Gluconate (Calcium Gluconate) 2 gm in 100 mls @ 50 mls/hr IV ONCE ONE Stop: 10/20/23 09:59 Last Admin: 10/20/23 07:34 Dose: 50 mls/hr Documented By: SHERRI Ondansetron HCl (Ondansetron Hcl 4 Mg/2 Ml Vial) 4 mg IVPUSH Q8H PRN PRN Reason: Nausea and Vomiting Rivaroxaban (Rivaroxaban 20 Mg Tablet) 20 mg PO DAILY@1730 [facility] Last Admin: 10/19/23 18:32 Dose: 20 mg Documented By: CHIDI Sodium Chloride (0.9 % Sodium Chloride Flush 3 Ml Syringe) 3 ml IVFLUSH QSHIFT [facility] Last Admin: 10/20/23 07:50 Dose: 3 ml Documented By: SHERRI Labs 10/20/23 05:26 10/20/23 05:26 Labs: Laboratory Results - last 24 hr 10/19/23 10/20/23 10/20/23 18:19 05:26 05:37 MCV 86.7 MCH 29.0 MCHC 33.5 RDW 17.8 H Plt Count 310 MPV 9.5 Immature Gran % (Auto) 0.6 H Neut % (Auto) 30.4 L Lymph % (Auto) 53.4 H [place] % (Auto) 13.7 H Eos % (Auto) 1.3 Baso % (Auto) 0.6 Lymph # (Auto) 2.5 [place] # (Auto) 0.7 Eos # (Auto) 0.1 Baso # (Auto) 0.0 Abs Immat Gran (auto) 0.03 Absolute Neuts (auto) 1.5 L Absolute Nucleated RBC 0.000 Nucleated RBC % (auto) 0.0 Smear Tech's Comments VERIFIED VBG pH 7.53 H VBG pCO2 31 VBG pO2 36 VBG HCO3 26 VBG O2 Saturation 63.0 VBG Base Excess 4.4 Anion Gap 14 14 Estim Creat Clear Calc 242.3 238.6 Estimated GFR > 60 > 60 Random Glucose 116 H 112 Calcium 6.8 L D 6.9 L Phosphorus 3.0 2.6 L Magnesium 1.9 1.9 Total Bilirubin 1.2 H AST 36 ALT 25 Alkaline Phosphatase 73 Total Protein 5.3 L Albumin 2.8 L 2.7 L Microbiology Microbiology Results: Microbiology 10/18/23 17:37 Urine Culture - Preliminary Urine clean catch - Urine platt top Escherichia coli 10/18/23 14:56 Blood Culture - Preliminary Blood - Venous No growth after 24 hours. 10/18/23 14:40 Blood Culture - Preliminary Blood - Venous No growth after 24 hours. 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 Quality Stroke Does the patient have a stroke diagnosis?: No VTE Prior VTE?: No VTE Risk Level:: Medical - moderate - high VTE Device Contraindication: Treatment Not Indicated VTE Drug Contraindication: N/A - Med Ordered
--- NOTE | 2023-10-20 11:18 | MHC.CLN ---
F/U DISCUSSED AT ROUNDS WITH DIET ADVANCED TO REGULAR RECOMMEND ADDING GELATEIN AND ENSURE SUPPLEMENTS WITH MEALS GELATEIN PROVIDES 480KCALS, 60G PROTEIN ENSURE TO PROVIDE 700KCALS, 40G PROTEIN SUPPLEMENTS TO PROMOTE SLOW WOUND HEALING MONITOR PO INTAKE CLOSELY AND ENCOURAGE SUPPLEMENTS
--- NOTE | 2023-10-20 12:42 | PM.CCPN ---
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 No events overnight. Titrated off pressors overnight. Critical Care Time (minutes): 45 Physical Exam Vital Signs: Vital Signs: Last Vital Signs Temp 98.8 F 10/20/23 11:54 Pulse 92 10/20/23 11:54 Resp 20 10/20/23 11:54 BP 100/64 10/20/23 11:54 Pulse Ox 100 10/20/23 11:54 O2 Del Method Nasal Cannula 10/20/23 11:54 O2 Flow Rate 2 10/20/23 11:54 Oxygen Flow Rate 2 10/18/23 14:11 BMI result Body Mass Index 36.9 Const: General: no acute distress, alert and awake Eyes: Sclerae: sclerae normal EOM: EOMs intact bilaterally Neck: Neck: Yes no lymphadenopathy, Yes trachea midline and Yes supple Resp: Effort & Inspection: normal respiratory effort and no respiratory distress Auscultation: clear to auscultation bilaterally Cardio: Rate: regular rate Rhythm: regular rhythm Heart sounds: no gallops, no murmurs and no rubs GI: Palpation (GI): Soft to palpation and Other GI palpation findings present ( Nontender) Auscultation: normal bowel sounds Extrem: General: Yes no pedal edema, No clubbing and No cyanosis Objective Data Labs 10/20/23 05:26 10/20/23 05:26 Labs: Laboratory Results - last 24 hr 10/19/23 10/20/23 10/20/23 18:19 05:26 05:37 WBC 4.8 RBC 3.00 L Hgb 8.7 L Hct 26.0 L MCV 86.7 MCH 29.0 MCHC 33.5 RDW 17.8 H Plt Count 310 MPV 9.5 Immature Gran % (Auto) 0.6 H Neut % (Auto) 30.4 L Lymph % (Auto) 53.4 H [place] % (Auto) 13.7 H Eos % (Auto) 1.3 Baso % (Auto) 0.6 Lymph # (Auto) 2.5 [place] # (Auto) 0.7 Eos # (Auto) 0.1 Baso # (Auto) 0.0 Abs Immat Gran (auto) 0.03 Absolute Neuts (auto) 1.5 L Absolute Nucleated RBC 0.000 Nucleated RBC % (auto) 0.0 Smear Tech's Comments VERIFIED VBG pH 7.53 H VBG pCO2 31 VBG pO2 36 VBG HCO3 26 VBG O2 Saturation 63.0 VBG Base Excess 4.4 Sodium 142 140 Potassium 3.0 L 2.7 L* Chloride 111 H 109 H Carbon Dioxide 20 L 20 L Anion Gap 14 14 BUN 6 L 4 L Creatinine 0.53 0.54 Estim Creat Clear Calc 242.3 238.6 Estimated GFR > 60 > 60 Random Glucose 116 H 112 Calcium 6.8 L D 6.9 L Phosphorus 3.0 2.6 L Magnesium 1.9 1.9 Total Bilirubin 1.2 H AST 36 ALT 25 Alkaline Phosphatase 73 Total Protein 5.3 L Albumin 2.8 L 2.7 L Microbiology Microbiology Results: Microbiology 10/18/23 17:37 Urine clean catch - Urine platt top Urine Culture - Preliminary Escherichia coli 10/18/23 14:56 Blood - Venous Blood Culture - Preliminary No growth after 24 hours. 10/18/23 14:40 Blood - Venous Blood Culture - Preliminary No growth after 24 hours. Progress Note: A&P Assessment and plan (1) UTI (urinary tract infection): Status: Acute (2) Hypoalbuminemia: Status: Acute (3) Hypocalcemia: Status: Acute (4) Hypomagnesemia: Status: Acute (5) Acute hypokalemia: Status: Acute (6) Status post small bowel resection: Status: Acute Plan Assessment: 53-year-old gentleman with underlying history of bowel with suction and primary anastomosis for ischemic bowel, DVT/PE, SHAVON admitted with multiple electrolyte abnormalities and septic shock secondary to E coli UTI. Plan: Neuro: No acute issues. Cardiac: Septic shock initially in ED on 10/18/23 at 19:53, resolved. Pulmonary: No acute issues. Renal: Multiple electrolyte abnormalities, continue with electrolyte replacements. Endo: No acute issues. GI: History of bowel with suction with ?partial SBO on CT imaging, evaluated by General surgery with no concern for SBO at this time. ID: E coli UTI, on empiric ceftriaxone. Heme/Onc: No acute issues. Psych: No acute issues. Miscellaneous: No acute issues. Prophylaxis: Xarelto Diet: Regular Critical care time spent: 45 minutes Quality Stroke Does the patient have a stroke diagnosis?: No VTE Prior VTE?: No VTE Risk Level:: Medical - moderate - high VTE Device Contraindication: Treatment Not Indicated VTE Drug Contraindication: N/A - Med Ordered
--- NOTE | 2023-10-20 15:12 | MHC.CM.PN ---
PT REMAINS IN ICU WITH POSSIBLE DOWNGRADE TODAY TO MEDICAL FLOOR. CM WILL CONTINUE TO FOLLOW FOR DC PLAN
[2023-10-20] MEDS: Rivaroxaban 20 MG TABLET PO (16:34)
[2023-10-20] MEDS: cefTRIAXone sodium 1 GM in 0.9 % Sodium Chloride 50 ML IV (19:55)
[2023-10-21] VITALS: BP 104/63; PULSE 108; RESP 20; TEMP 37.2; O2SAT 100
[2023-10-21 04:00] VITALS: BP 145/99; PULSE 98; RESP 18; TEMP 36.8; O2SAT 100
[2023-10-21] MEDS: Albumin Human 25 % 100 ML IV (04:14)
[2023-10-21] MEDS: 0.9 % Sodium Chloride Flush 3 ML SYRINGE IVFLUSH ×4 (04:23→22:35)
[2023-10-21 06:36] LABS: MANUAL DIFF FLAG NO
[2023-10-21 06:53] LABS: Basophils Percent Auto 0.6 % (0-2); Eosinophils Absolute Auto 0.1 X10*3/uL (0.0-0.4); Eosinophils Percent Auto 0.9 % (0-4); Hematocrit 25.1 % (42.0-52.0); Hemoglobin 8.2 g/dl (14.0-18.0); Imm Gran Abs Auto 0.02 X10*3/uL (0.00-0.03); Imm Gran Pct Auto 0.4 % (0.0-0.4); Lymphocytes Absolute Auto 2.4 X10*3/uL (1.2-4.9); Lymphocytes Percent Auto 45.6 % (20-40); Mean Corpuscular HGB Conc 32.7 g/dl (31.0-36.0); Mean Corpuscular Hemoglobin 28.8 pg (27.0-33.0); Mean Corpuscular Volume 88.1 fL (80.0-98.0); Mean Platelet Volume 10.1 fL (9.4-12.4); Monocytes Absolute Auto 0.7 X10*3/uL (0.1-1.2); Monocytes Percent Auto 13.7 % (2-11); Neutrophils Absolute Auto 2.1 x10*3/uL (2.0-8.3); Neutrophils Percent Auto 38.8 % (45-73); Platelet Count 282 X10*3/uL (160-400); Red Blood Count 2.85 X10*6/uL (4.60-5.80); Red Cell Distribution Width 18.1 % (11.0-16.0); White Blood Count 5.3 X10*3/uL (4.8-10.8)
[2023-10-21 07:21] LABS: Albumin Level 3.2 g/dL (3.5-5.0); Anion Gap 13 (12-20); Blood Urea Nitrogen 5 mg/dL (9-16); Calcium 7.5 mg/dL (8.4-10.2); Carbon Dioxide 23 mmol/L (22-29); Chloride 112 mmol/L (96-108); Creatinine Clr Calc Pharmacy 198.2; Estimated Glomerular Filt Rate > 60; Glucose Random 90 mg/dL (60-115); Magnesium 1.5 mg/dL (1.6-2.6); Phosphorus 2.9 mg/dL (2.7-4.5); Sodium 145 mmol/L (135-145)
[2023-10-21 07:22] LABS: Potassium 2.8 mmol/L (3.3-5.1)
[2023-10-21 08:00] VITALS: BP 110/72; PULSE 98; RESP 20; TEMP 36.7; O2SAT 100
[2023-10-21] MEDS: Potassium Chloride ER 20 MEQ TAB.ER.PRT 40 MEQ PO (09:01)
--- NOTE | 2023-10-21 10:32 | HO.PM.IMPN ---
Subjective Subjective Date of Service: 10/21/23 Interval History: having bms Physical Exam Vital Signs: Vital Signs: Last Vital Signs Temp 98.0 F 10/21/23 08:00 Pulse 98 10/21/23 08:00 Resp 20 10/21/23 08:00 BP 110/72 10/21/23 08:00 Pulse Ox 100 10/21/23 08:00 O2 Del Method Nasal Cannula 10/21/23 08:00 O2 Flow Rate 1 10/21/23 08:00 Oxygen Flow Rate 2 10/18/23 14:11 BMI result Body Mass Index 36.9 Const: General: no acute distress, alert and awake Eyes: Sclerae: sclerae normal EOM: EOMs intact bilaterally Neck: Neck: Yes no lymphadenopathy, Yes trachea midline and Yes supple Resp: Effort & Inspection: normal respiratory effort and no respiratory distress Auscultation: clear to auscultation bilaterally Cardio: Rate: regular rate Rhythm: regular rhythm Heart sounds: no gallops, no murmurs and no rubs GI: Palpation (GI): Soft to palpation and Other GI palpation findings present ( Nontender) Auscultation: normal bowel sounds Extrem: General: Yes no pedal edema, No clubbing and No cyanosis Objective Data Active Medications Acetaminophen (Acetaminophen 325 Mg Tablet) 650 mg PO Q6H PRN PRN Reason: Pain, Mild (Pain Scale 1-3) Last Admin: 10/19/23 15:43 Dose: 650 mg Documented By: CHIDI Ceftriaxone Sodium 1 gm/ (Sodium Chloride) 50 mls @ 100 mls/hr IV Q24H [facility] Last Infusion: 10/20/23 20:59 Dose: Infused Documented By: RANDY Ondansetron HCl (Ondansetron Hcl 4 Mg/2 Ml Vial) 4 mg IVPUSH Q8H PRN PRN Reason: Nausea and Vomiting Rivaroxaban (Rivaroxaban 20 Mg Tablet) 20 mg PO DAILY@1730 [facility] Last Admin: 10/20/23 16:34 Dose: 20 mg Documented By: SHERRI Sodium Chloride (0.9 % Sodium Chloride Flush 3 Ml Syringe) 3 ml IVFLUSH QSHIFT [facility] Last Admin: 10/21/23 09:02 Dose: 3 ml Documented By: TOMASIT Labs 10/21/23 06:10 10/21/23 06:10 Labs: Laboratory Results - last 24 hr 10/21/23 06:10 MCV 88.1 MCH 28.8 MCHC 32.7 RDW 18.1 H Plt Count 282 MPV 10.1 Immature Gran % (Auto) 0.4 Neut % (Auto) 38.8 L Lymph % (Auto) 45.6 H [place] % (Auto) 13.7 H Eos % (Auto) 0.9 Baso % (Auto) 0.6 Lymph # (Auto) 2.4 [place] # (Auto) 0.7 Eos # (Auto) 0.1 Baso # (Auto) 0.0 Abs Immat Gran (auto) 0.02 Absolute Neuts (auto) 2.1 Absolute Nucleated RBC 0.000 Nucleated RBC % (auto) 0.0 Anion Gap 13 Estim Creat Clear Calc 198.2 Estimated GFR > 60 Random Glucose 90 Calcium 7.5 L D Phosphorus 2.9 Magnesium 1.5 L Albumin 3.2 L Microbiology Microbiology Results: Microbiology 10/18/23 17:37 Urine Culture - Final Urine clean catch - Urine platt top Escherichia coli 10/18/23 14:56 Blood Culture - Preliminary Blood - Venous No growth after 48 hours. 10/18/23 14:40 Blood Culture - Preliminary Blood - Venous No growth after 48 hours. 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
[2023-10-21 11:33] VITALS: BP 120/62; PULSE 94; RESP 18; TEMP 36.4; O2SAT 99
--- NOTE | 2023-10-21 14:17 | HO.WOUND ---
Wound Consult: Follow up 53yr old? Male [place] [facility] [place]? with a recent complex medical admission.? See progress notes and H&P for detailed history.? Wound consult follow up for [facility] bed - bed not yet arrived to unit - will request bed delivery from [facility]. Patient and staff aware. Wounds not assessed today - direct care team will carry out topical recommendations made below. Inpatient wound care nurse will continue to follow. Recommendations: 1. Turn and Reposition every 2 hours and as needed for patient comfort.? Use pillows or wedges to support off loading positions. 2. Off Load all bony prominences with use of pillows and heel boots if needed.? Apply Preventative foams where needed. ? 3. Monitor for incontinence and moisture control, use barrier creams when needed for prevention and treatment. 4. Provide adequate and supplemental nutrition.? 5.Order low air loss mattress Bariatric bed.? [facility] called for bed dining room hostess. 6.? Buttock, Sacrum and Coccyx -? Off Load Pressure - Barrier cream twice daily to protect from moisture and friction. 7. Right Ischuim - Off Load Pressure - Cleanse and irrigate with NS, pat dry. Apply light layer of Triad to wound bed, cover with foam. Change every other days and PRN. 8. Left Great Toe - Cleanse with NS moist gauze. Observe for wound progression - reconsult wound care nurse if worsening. No topical dressing needed at this time. Re-consult wound care Nurse for wound deterioration or wound changes.
[2023-10-21 16:00] VITALS: BP 117/74; PULSE 99; RESP 18; TEMP 36.5; O2SAT 98
[2023-10-21] MEDS: Rivaroxaban 20 MG TABLET PO (17:40)
[2023-10-21 20:00] VITALS: BP 117/70; PULSE 111; RESP 20; TEMP 37.2; O2SAT 92
[2023-10-21] MEDS: cefTRIAXone sodium 1 GM in 0.9 % Sodium Chloride 50 ML IV (22:35)
[2023-10-22] VITALS (11 sets, daily range): BP systolic 92–138; BP diastolic 60–75; PULSE 100–112; RESP 17–20; TEMP 36.2–37.2; O2SAT 98–100
[2023-10-22] MEDS: 0.9 % Sodium Chloride 500 ML IV (05:18)
[2023-10-22 06:26] LABS: Hematocrit 24.8 % (42.0-52.0); Hemoglobin 8.3 g/dl (14.0-18.0); Mean Corpuscular HGB Conc 33.5 g/dl (31.0-36.0); Mean Corpuscular Hemoglobin 29.3 pg (27.0-33.0); Mean Corpuscular Volume 87.6 fL (80.0-98.0); Mean Platelet Volume 9.3 fL (9.4-12.4); Platelet Count 289 X10*3/uL (160-400); Red Blood Count 2.83 X10*6/uL (4.60-5.80); White Blood Count 5.7 X10*3/uL (4.8-10.8)
[2023-10-22 06:47] LABS: Anion Gap 9 (12-20); Blood Urea Nitrogen 7 mg/dL (9-16); Calcium 7.5 mg/dL (8.4-10.2); Carbon Dioxide 25 mmol/L (22-29); Chloride 112 mmol/L (96-108); Creatinine Clr Calc Pharmacy 207.8; Estimated Glomerular Filt Rate > 60; Glucose Fasting 83 mg/dL (60-99); Sodium 143 mmol/L (135-145)
[2023-10-22 07:43] LABS: Magnesium 1.3 mg/dL (1.6-2.6); Potassium 2.8 mmol/L (3.3-5.1)
[2023-10-22] MEDS: 0.9 % Sodium Chloride Flush 3 ML SYRINGE IVFLUSH ×3 (08:06→22:00)
[2023-10-22] MEDS: Potassium Chloride ER 20 MEQ TAB.ER.PRT 40 MEQ PO (08:06)
[2023-10-22] MEDS: Potassium Chloride/H20 10 MEQ/100 ML PIGGYBACK 100 MEQ IV ×4 (08:06→12:51)
[2023-10-22] MEDS: Magnesium Oxide 400 MG TABLET PO ×2 (08:06→17:06)
[2023-10-22] MEDS: Magnesium Sulfate/H2O 2 GM/50 ML PIGGYBACK IV (09:41)
--- NOTE | 2023-10-22 10:14 | HO.PM.IMPN ---
Subjective Subjective Date of Service: 10/22/23 Interval History: having bms Physical Exam Vital Signs: Vital Signs: Last Vital Signs Temp 98.2 F 10/22/23 07:37 Pulse 100 10/22/23 07:37 Resp 18 10/22/23 07:37 BP 101/66 10/22/23 07:37 Pulse Ox 100 10/22/23 07:37 O2 Del Method Room Air 10/22/23 07:37 O2 Flow Rate 1 10/21/23 08:00 Oxygen Flow Rate 2 10/18/23 14:11 BMI result Body Mass Index 36.9 Const: General: no acute distress, alert and awake Eyes: Sclerae: sclerae normal EOM: EOMs intact bilaterally Neck: Neck: Yes no lymphadenopathy, Yes trachea midline and Yes supple Resp: Effort & Inspection: normal respiratory effort and no respiratory distress Auscultation: clear to auscultation bilaterally Cardio: Rate: regular rate Rhythm: regular rhythm Heart sounds: no gallops, no murmurs and no rubs GI: Palpation (GI): Soft to palpation and Other GI palpation findings present ( Nontender) Auscultation: normal bowel sounds Extrem: General: Yes no pedal edema, No clubbing and No cyanosis Objective Data Active Medications Acetaminophen (Acetaminophen 325 Mg Tablet) 650 mg PO Q6H PRN PRN Reason: Pain, Mild (Pain Scale 1-3) Last Admin: 10/19/23 15:43 Dose: 650 mg Documented By: CHIDI Ceftriaxone Sodium 1 gm/ (Sodium Chloride) 50 mls @ 100 mls/hr IV Q24H [facility] Last Infusion: 10/21/23 23:11 Dose: Infused Documented By: BC Potassium Chloride (Potassium Chloride/H20) 10 meq in 100 mls @ 100 mls/hr IV Q1H [facility] Stop: 10/22/23 11:44 Last Admin: 10/22/23 09:23 Dose: 100 mls/hr Documented By: GARRY Magnesium Oxide (Magnesium Oxide 400 Mg Tablet) 400 mg PO BIDPC [facility] Last Admin: 10/22/23 08:06 Dose: 400 mg Documented By: GARRY Ondansetron HCl (Ondansetron Hcl 4 Mg/2 Ml Vial) 4 mg IVPUSH Q8H PRN PRN Reason: Nausea and Vomiting Rivaroxaban (Rivaroxaban 20 Mg Tablet) 20 mg PO DAILY@1730 [facility] Last Admin: 10/21/23 17:40 Dose: 20 mg Documented By: ERIC Sodium Chloride (0.9 % Sodium Chloride Flush 3 Ml Syringe) 3 ml IVFLUSH QSHIFT [facility] Last Admin: 10/22/23 08:06 Dose: 3 ml Documented By: LALOAC Labs 10/22/23 06:08 10/22/23 06:08 Labs: Laboratory Results - last 24 hr 10/22/23 06:08 MCV 87.6 MCH 29.3 MCHC 33.5 RDW 18.0 H Plt Count 289 MPV 9.3 L Absolute Nucleated RBC 0.000 Nucleated RBC % (auto) 0.0 Anion Gap 9 L Estim Creat Clear Calc 207.8 Estimated GFR > 60 Fasting Glucose 83 Lactic Acid 1.0 Calcium 7.5 L Magnesium 1.3 L* Microbiology Microbiology Results: Microbiology 10/18/23 17:37 Urine Culture - Final Urine clean catch - Urine platt top Escherichia coli Assessment and Plan (1) UTI (urinary tract infection): Status: Acute Plan 53-year-old male with 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
--- NOTE | 2023-10-22 14:14 | MHC.CLN ---
F/U PO INTAKE 75-100% DIET RX: REGULAR PT RECEIVING GELATEIN AND ENSURE SUPPLEMENTS WITH MEALS GELATEIN PROVIDES 480KCALS, 60G PROTEIN ENSURE TO PROVIDE 700KCALS, 40G PROTEIN SUPPLEMENTS TO PROMOTE SLOW WOUND HEALING CONTINUE TO MONITOR PO INTAKE CLOSELY AND ENCOURAGE SUPPLEMENTS
[2023-10-22] MEDS: Rivaroxaban 20 MG TABLET PO (17:06)
--- NOTE | 2023-10-22 17:12 | HO.WOUND ---
Wound Consult: Follow up 53yr old? Male admitted to [facility] [place] [place]18/23? with a recent complex medical admission.? See progress notes and H&P for detailed history.? Wound consult follow up for [facility] bed - wrong bed arrived to unit (the bed was not the long bed as requested) - will request bed delivery from [facility]. Patient and staff aware. Wounds not assessed today - direct care team will carry out topical recommendations made below. Inpatient wound care nurse will continue to follow. Spoke to [facility] at 12:30 - new bed to be sent to [facility] with foot bolster. [facility] to assist with set up and movement of hercules to new bed. Recommendations: 1. Turn and Reposition every 2 hours and as needed for patient comfort.? Use pillows or wedges to support off loading positions. 2. Off Load all bony prominences with use of pillows and heel boots if needed.? Apply Preventative foams where needed. ? 3. Monitor for incontinence and moisture control, use barrier creams when needed for prevention and treatment. 4. Provide adequate and supplemental nutrition.? 5.Order low air loss mattress Bariatric bed.? [facility] called for bed recep. 6.? Buttock, Sacrum and Coccyx -? Off Load Pressure - Barrier cream twice daily to protect from moisture and friction. 7. Right [place] - Off Load Pressure - Cleanse and irrigate with NS, pat dry. Apply light layer of Triad to wound bed, cover with foam. Change every other days and PRN. 8. Left Great Toe - Cleanse with NS moist gauze. Observe for wound progression - reconsult wound care nurse if worsening. No topical dressing needed at this time. Re-consult wound care Nurse for wound deterioration or wound changes.
[2023-10-22] MEDS: cefTRIAXone sodium 1 GM in 0.9 % Sodium Chloride 50 ML IV (21:59)
[2023-10-23 03:18] VITALS: BP 100/64; PULSE 101; RESP 20; TEMP 36.8; O2SAT 99
[2023-10-23 07:32] LABS: Hematocrit 27.3 % (42.0-52.0); Mean Corpuscular Hemoglobin 28.6 pg (27.0-33.0); Mean Corpuscular Volume 86.7 fL (80.0-98.0); Mean Platelet Volume 9.3 fL (9.4-12.4); Platelet Count 314 X10*3/uL (160-400); Red Blood Count 3.15 X10*6/uL (4.60-5.80); White Blood Count 5.1 X10*3/uL (4.8-10.8)
[2023-10-23 07:50] LABS: Anion Gap 10 (12-20); Blood Urea Nitrogen 8 mg/dL (9-16); Carbon Dioxide 24 mmol/L (22-29); Chloride 110 mmol/L (96-108); Creatinine Clr Calc Pharmacy 181.5; Estimated Glomerular Filt Rate > 60; Glucose Fasting 81 mg/dL (60-99); Magnesium 1.7 mg/dL (1.6-2.6); Potassium 3.3 mmol/L (3.3-5.1); Sodium 141 mmol/L (135-145)
[2023-10-23 08:00] VITALS: BP 94/52; PULSE 94; RESP 16; TEMP 36.9; O2SAT 100
[2023-10-23] MEDS: Magnesium Oxide 400 MG TABLET PO (08:41)
[2023-10-23] MEDS: 0.9 % Sodium Chloride Flush 3 ML SYRINGE IVFLUSH ×3 (08:41→20:09)
[2023-10-23] MEDS: Potassium Chloride ER 20 MEQ TAB.ER.PRT 40 MEQ PO (09:08)
[2023-10-23] MEDS: Magnesium Oxide 400 MG TABLET 800 MG PO ×3 (09:14→20:07)
--- NOTE | 2023-10-23 09:17 | PC.NURSE ---
Pt ordered for 800mg of Magnesium. Patient had just received 400mg. Mag 1.7 today. MD Greenberg notified and said ok to give 800mg on top of already given 400mg.
--- NOTE | 2023-10-23 10:26 | P.PNIM_ITS ---
Subjective Subjective Date of Service: 10/23/23 Interval History: feels weak Physical Exam 2 Vital Signs: Vital Signs: Last Vital Signs Temp 98.4 F 10/23/23 08:00 Pulse 94 10/23/23 08:00 Resp 16 10/23/23 08:00 BP 94/52 L 10/23/23 08:00 Pulse Ox 100 10/23/23 08:00 O2 Del Method Room Air 10/23/23 08:00 O2 Flow Rate 1 10/21/23 08:00 Oxygen Flow Rate 2 10/18/23 14:11 BMI result Body Mass Index 36.9 Const: General: no acute distress, alert and awake Eyes: Sclerae: sclerae normal EOM: EOMs intact bilaterally Neck: Neck: Yes no lymphadenopathy, Yes trachea midline and Yes supple Resp: Effort & Inspection: normal respiratory effort and no respiratory distress Auscultation: clear to auscultation bilaterally Cardio: Rate: regular rate Rhythm: regular rhythm Heart sounds: no gallops, no murmurs and no rubs GI: Palpation (GI): Soft to palpation and Other GI palpation findings present ( Nontender) Auscultation: normal bowel sounds Extrem: General: Yes no pedal edema, No clubbing and No cyanosis Objective Data Active Medications Acetaminophen (Acetaminophen 325 Mg Tablet) 650 mg PO Q6H PRN PRN Reason: Pain, Mild (Pain Scale 1-3) Last Admin: 10/19/23 15:43 Dose: 650 mg Documented By: CHIDI Ceftriaxone Sodium 1 gm/ (Sodium Chloride) 50 mls @ 100 mls/hr IV Q24H [facility] Last Infusion: 10/22/23 22:43 Dose: Infused Documented By: OLINDA Magnesium Oxide (Magnesium Oxide 400 Mg Tablet) 800 mg PO TID [facility] Last Admin: 10/23/23 09:14 Dose: 800 mg Documented By: PETE Ondansetron HCl (Ondansetron Hcl 4 Mg/2 Ml Vial) 4 mg IVPUSH Q8H PRN PRN Reason: Nausea and Vomiting Rivaroxaban (Rivaroxaban 20 Mg Tablet) 20 mg PO DAILY@1730 [facility] Last Admin: 10/22/23 17:06 Dose: 20 mg Documented By: KARINA Sodium Chloride (0.9 % Sodium Chloride Flush 3 Ml Syringe) 3 ml IVFLUSH QSHIFT [facility] Last Admin: 10/23/23 08:41 Dose: 3 ml Documented By: KAYLA Labs 10/23/23 07:06 10/23/23 07:06 Labs: Laboratory Results - last 24 hr 10/23/23 07:06 MCV 86.7 MCH 28.6 MCHC 33.0 RDW 18.0 H Plt Count 314 MPV 9.3 L Absolute Nucleated RBC 0.000 Nucleated RBC % (auto) 0.0 Anion Gap 10 L Estim Creat Clear Calc 181.5 Estimated GFR > 60 Fasting Glucose 81 Calcium 8.0 L D Magnesium 1.7 Assessment and Plan (1) UTI (urinary tract infection): Status: Acute Plan 53-year-old male with 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
[2023-10-23] MEDS: Albumin Human 25 % 100 ML IV ×2 (10:54→13:10)
[2023-10-23] MEDS: Acetaminophen 325 MG TABLET 650 MG PO ×2 (11:01→20:08)
[2023-10-23 11:23] VITALS: BP 97/63; PULSE 96; RESP 16; TEMP 36.9; O2SAT 94
[2023-10-23 16:00] VITALS: BP 110/62; PULSE 96; RESP 18; TEMP 36.9; O2SAT 100
[2023-10-23] MEDS: Rivaroxaban 20 MG TABLET PO (17:39)
[2023-10-23 20:00] VITALS: BP 117/75; PULSE 101; RESP 20; TEMP 37.1; O2SAT 100
[2023-10-24] VITALS: BP 106/68; PULSE 88; RESP 20; TEMP 36.8; O2SAT 97
[2023-10-24 03:25] VITALS: BP 102/62; PULSE 96; RESP 20; TEMP 36.4; O2SAT 97
[2023-10-24] MEDS: Acetaminophen 325 MG TABLET 650 MG PO (03:46)
[2023-10-24 07:53] LABS: Hematocrit 24.4 % (42.0-52.0); Hemoglobin 7.9 g/dl (14.0-18.0); Mean Corpuscular HGB Conc 32.4 g/dl (31.0-36.0); Mean Corpuscular Hemoglobin 28.8 pg (27.0-33.0); Mean Corpuscular Volume 89.1 fL (80.0-98.0); Mean Platelet Volume 9.8 fL (9.4-12.4); Platelet Count 293 X10*3/uL (160-400); Red Blood Count 2.74 X10*6/uL (4.60-5.80); White Blood Count 4.8 X10*3/uL (4.8-10.8)
[2023-10-24 08:00] VITALS: BP 101/58; PULSE 95; RESP 20; TEMP 36.5; O2SAT 98
[2023-10-24 08:17] LABS: Anion Gap 9 (12-20); Blood Urea Nitrogen 8 mg/dL (9-16); Calcium 8.1 mg/dL (8.4-10.2); Carbon Dioxide 24 mmol/L (22-29); Chloride 111 mmol/L (96-108); Creatinine Clr Calc Pharmacy 195.2; Estimated Glomerular Filt Rate > 60; Glucose Fasting 81 mg/dL (60-99); Magnesium 1.6 mg/dL (1.6-2.6); Potassium 3.3 mmol/L (3.3-5.1); Sodium 141 mmol/L (135-145)
--- NOTE | 2023-10-24 09:09 | P.DS_ITS ---
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 Patient states that he has had poor appetite and has not been eating much but is tolerating fluids. He has also been having 2-3 episodes of watery stool on a daily basis. Denies any fevers, chills, abdominal pain, nausea, vomiting, urinary symptoms, hematochezia, melena, shortness breath, cough, chest pain. He was recently admitted to [facility] from 08/05-09/16 due to SBO with acute decompensation requiring emergent laparotomy and ischemic bowel resected-postoperatively was in ICU and subsequently downgraded to the floor initially was getting NGT feeding and TPN. Diet was advaanced and he was discharged home and recommended to eat small frequent meals throughout the day. On arrival, pt tachcyardic to 133 (though appears chronically tachycardic), tachypneic to 22. Did develop hypotension to 79/48 improved with IVF. NO leukocytosis. Stable normocytic anemia. Renal function baseline. Potassium 2.2, calcium 4.7 (corrected calcium 6.2), magnesium 0.7. Initial lactic acid 3.0, repeat 1.6. Albumin 1.6, total protein 5.6. Urinalysis significant for 3+ leukocytes, negative nitrites, negative blood, positive urinary sediment, 4+ bacteria. Urine tox screen negative, ethyl alcohol level undetectable. Chest x-ray negative for any acute pulmonary process. In the ED treated with 2 g calcium gluconate, 2 g IV magnesium, 40 mEq potassium chloride IV and 60 mEq potassium chloride p.o., IV albumin, and 50 mg tramadol. hospital course: Patient was admitted with acute hypovolemic shock due to diarrhea and poor p.o. intake, doubt sepsis. Did require aggressive IV hydration and transferred to ICU for pressor support, was eventually weaned off. Also had severe hypokalemia and hypomagnesemia which was replaced. He will continue on supplements as outpatient. For urinary tract infection due to E coli completed 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 For history of DVT/PE was continued on Xarelto. For history of Guillain-[place] syndrome he is on monthly IVIG. For obesity weig ht loss recommended. Patient is feeling better will be discharged home. Time Attestation Discharge Coordination Time (in mins): 32 Quality: Safe Use of Opioids Does Pt have an Active Cancer Diagnosis on the Problem List?: No Quality: Stroke Does the patient have a stroke diagnosis?: No Physical Exam Vital Signs: Vital Signs: Last Vital Signs Temp 97.6 F 10/24/23 03:25 Pulse 96 10/24/23 03:25 Resp 20 10/24/23 03:25 BP 102/62 10/24/23 03:25 Pulse Ox 97 10/24/23 03:25 O2 Del Method Room Air 10/24/23 03:25 O2 Flow Rate 1 10/21/23 08:00 Oxygen Flow Rate 2 10/18/23 14:11 BMI result Body Mass Index 36.9 Const: General: no acute distress, alert and awake Eyes: Sclerae: sclerae normal EOM: EOMs intact bilaterally Neck: Neck: Yes no lymphadenopathy, Yes trachea midline and Yes supple Resp: Effort & Inspection: normal respiratory effort and no respiratory distress Auscultation: clear to auscultation bilaterally Cardio: Rate: regular rate Rhythm: regular rhythm Heart sounds: no gallops, no murmurs and no rubs GI: Palpation (GI): Soft to palpation and Other GI palpation findings present ( Nontender) Auscultation: normal bowel sounds Extrem: General: Yes no pedal edema, No clubbing and No cyanosis DS: Data Data Completed and Pending Completed studies during hospitalization [Text1]: Procedures Assistance with Respiratory Ventilation, Less than 24 Consecutive Hours, Continuous Positive Airway Pressure (08/06/23) Excision of Small Intestine, Open Approach (08/06/23) Insertion of Infusion Device into Superior Vena Cava, Percutaneous Approach (08/06/23) Release Peritoneum, Open Approach (08/06/23) Ultrasonography of Superior Vena Cava, Guidance (08/06/23) Labs on day of discharge: Laboratory Results - last 24 hr 10/24/23 07:30 WBC 4.8 RBC 2.74 L Hgb 7.9 L Hct 24.4 L MCV 89.1 MCH 28.8 MCHC 32.4 RDW 18.0 H Plt Count 293 MPV 9.8 Absolute Nucleated RBC 0.000 Nucleated RBC % (auto) 0.0 Sodium 141 Potassium 3.3 Chloride 111 H Carbon Dioxide 24 Anion Gap 9 L BUN 8 L Creatinine 0.66 Estim Creat Clear Calc 195.2 Estimated GFR > 60 Fasting Glucose 81 Calcium 8.1 L Magnesium 1.6 Discharge Plan Discharge Anticipated Discharge Date/Time: 10/24/23 09:05 Patient Disposition: Home Health Service Discharge Diagnosis: hypokalemia, hpyomagnesemia, uti Referrals: Ramiro Stewart MD [Primary Care Provider] - 1 Week Discharge Medications: New magnesium oxide 400 mg (241.3 mg magnesium) Tablet 800 mg PO TID Qty: 540 0RF potassium chloride [Klor-Con M20] 20 mEq tablet,ER particles/crystals 20 meq PO BID Qty: 180 0RF Continued Xarelto 20 mg tablet 20 mg PO DAILY@1700 Rx Instructions: must administer with evening meal cholecalciferol (vitamin D3) [Vitamin D3] 25 mcg (1,000 unit) Tablet 25 mcg PO DAILY Discharge Orders: Discharge Order (Routine); Ordered 10/24/23 Ordered By: Julian Greenberg Diet: Advance to usual diet Activity on Discharge: As tolerated Stand Alone Forms: Patient Portal Discharge page Print Language: Persian Care Plan Goals: recovery, vaoid low elexctrolytes Health Concerns: diarrhea, low electrolytes Plan of Treatment: continue supplements, monitor labs Assessment: see above
--- NOTE | 2023-10-24 09:43 | MHC.CM.PN ---
Patient has been medically cleared for dc to home today, with services. A referral was made to [facility], who has been made aware of today's dc.
--- NOTE | 2023-10-24 09:47 | W.MHC.F2F ---
Service Date Service Date: 10/24/23 Encounter Date of encounter: 10/24/23 Reasons for Services Signs and symptoms assessed: lower extremity weakness Reason for usp: medication management, medication treatment and teach disease management Homebound: Leaving the home is medically contraindicated at this time without the asist of a device and/or another person due th the listed conditions above and below. Reason homebound: leg weakness Certification: Based on the above findings, I certify that this patient is confined to the home and needs intermittent usp care, physical therapy and/or speech therapy, or continues to need occupational therapy. The patient is under my care, and I have initiated the establishment of the plan of care. The patient will be followed by a physician who will periodically review the plan of care. Time Spent With Patient Time: Total time managing care of this patient today ____ minutes.
[2023-10-24] MEDS: Magnesium Oxide 400 MG TABLET 800 MG PO ×2 (09:51→16:47)
[2023-10-24] MEDS: Potassium Chloride ER 20 MEQ TAB.ER.PRT 40 MEQ PO (09:51)
[2023-10-24] MEDS: 0.9 % Sodium Chloride Flush 3 ML SYRINGE IVFLUSH ×2 (09:52→16:48)
[2023-10-24 12:00] VITALS: BP 111/67; PULSE 100; RESP 22; TEMP 36.9; O2SAT 99
--- NOTE | 2023-10-24 12:51 | MHC.CM.PN ---
Patient will dc to home today at 7PM (Patient confirms that he will have a Category Manager at home, at that time)[facility].
[2023-10-24] MEDS: Rivaroxaban 20 MG TABLET PO (16:47)
== END 2023-10-24 19:40 | disposition home health service (06) | DRG 422 ==
LOC: HO.ED 19:56 → HO.EDOVER 20:03 → HO.ICU 22:03 → HO.IMC 10-20 19:00
PROVIDERS: Internal Medicine Pulmonary Disease; Nurse Practitioner Family; Student in an Organized Health Care Education/Training Program; Admitting Provider Physician Assistant; Emergency Provider Emergency Medicine; PCP Internal Medicine; Visit Provider Internal Medicine
DX: E87.6 Hypokalemia (principal); E86.1 Hypovolemia; R57.1 Hypovolemic shock; G61.0 Guillain-Barre syndrome; L89.312 Pressure ulcer of right buttock, stage 2; N39.0 Urinary tract infection, site not specified; E83.51 Hypocalcemia; E87.1 Hypo-osmolality and hyponatremia; E83.42 Hypomagnesemia; G47.33 Obstructive sleep apnea (adult) (pediatric); B96.20 Unspecified Escherichia coli [E. coli] as the cause of diseases classified elsewhere; E66.01 Morbid (severe) obesity due to excess calories; Z68.36 Body mass index [BMI] 36.0-36.9, adult; Z91.199 Patient's noncompliance with other medical treatment and regimen due to unspecified reason; Z99.3 Dependence on wheelchair; Z86.711 Personal history of pulmonary embolism; Z86.718 Personal history of other venous thrombosis and embolism; Z98.0 Intestinal bypass and anastomosis status; Z87.891 Personal history of nicotine dependence; Z79.01 Long term (current) use of anticoagulants; Z79.620 Long term (current) use of immunosuppressive biologic; Z79.899 Other long term (current) drug therapy
CPT/HCPCS: 36415; 71045; 74176; 80048; 80053; 80076; 80307; 81001; 82040; 82803; 83605; 83690; 83735; 83880; 84100; 84484; 85025; 85027; 85610; 87040; 87086; 87088; 87186; 92950; 93005; 99285; J0613; J0696; J3475; J3480; P9047

== ENCOUNTER → 2023-10-18 14:18 | Outpatient (BNV) | payer OTHER, SELFPAY | PROVIDERS: Admitting Provider Physician Assistant; Emergency Provider Emergency Medicine; PCP Internal Medicine; Visit Provider Internal Medicine Cardiovascular Disease | DX: R00.0 Tachycardia, unspecified (principal) | CPT/HCPCS: 93010 ==

== ENCOUNTER 2023-10-18 19:41 | Outpatient (BNV) | payer OTHER, SELFPAY | END 2023-10-19 01:45 | PROVIDERS: Admitting Provider Physician Assistant; Emergency Provider Emergency Medicine; PCP Internal Medicine; Visit Provider Internal Medicine Cardiovascular Disease | DX: I45.81 Long QT syndrome (principal) | CPT/HCPCS: 93010 ==

== ENCOUNTER → 2023-10-18 19:41 | Outpatient (BNV) | payer OTHER, SELFPAY | PROVIDERS: Admitting Provider Physician Assistant; Emergency Provider Emergency Medicine; PCP Internal Medicine; Visit Provider Surgery | DX: E87.6 Hypokalemia (principal) | CPT/HCPCS: 99024 ==

== ENCOUNTER → 2023-10-18 19:41 | Outpatient (BNV) | payer OTHER, SELFPAY | PROVIDERS: Admitting Provider Physician Assistant; Emergency Provider Emergency Medicine; PCP Internal Medicine; Visit Provider Internal Medicine Pulmonary Disease | DX: N39.0 Urinary tract infection, site not specified (principal); E88.09 Other disorders of plasma-protein metabolism, not elsewhere classified; E83.51 Hypocalcemia; E83.42 Hypomagnesemia; E87.6 Hypokalemia; Z90.49 Acquired absence of other specified parts of digestive tract | CPT/HCPCS: 99291 ==

== ENCOUNTER → 2023-10-18 19:41 | Outpatient (BNV) | payer OTHER, SELFPAY | PROVIDERS: Admitting Provider Physician Assistant; Emergency Provider Emergency Medicine; PCP Internal Medicine; Visit Provider Physician Assistant | DX: N39.0 Urinary tract infection, site not specified (principal) | CPT/HCPCS: 99223; 99232; 99239; 99499; G0180 ==

== ENCOUNTER 2024-03-06 13:29 | Inpatient (IN) | payer OTHER, SELFPAY ==
--- NOTE | ~2024-03-06 | US_ITS ---
EXAMINATION: US ABDOMEN LIMITED CLINICAL INFORMATION: Elevated LFTs. COMPARISON: CT abdomen pelvis dated October 18, 2023. TECHNIQUE: Real-time imaging of the right upper quadrant abdominal viscera. FINDINGS: PANCREAS: The pancreas is not seen. LIVER: The liver is only partially visualized. It appears enlarged and steatotic. There is no intrahepatic biliary duct dilatation seen. GALLBLADDER: The gallbladder is physiologically distended. It contains multiple calculi. There is no gallbladder wall thickening or pericholecystic fluid. COMMON BILE DUCT: Normal in caliber measuring 0.3 cm in diameter. RIGHT KIDNEY: Normal. No hydronephrosis. No renal calculi or focal parenchymal lesions. The kidney measures 11.2 cm in maximum dimension. FREE FLUID: None. US/US abdomen limited IMPRESSION: Cholelithiasis. No ultrasound evidence of acute cholecystitis. The liver is enlarged and steatotic. Electronically signed by: Phong Cotter DO 03/06/2024 10:42 PM EDT
--- NOTE | ~2024-03-06 | XR_ITS ---
EXAMINATION: XR CHEST CLINICAL INFORMATION: Dyspnea. COMPARISON: Chest radiograph 10/18/2023. TECHNIQUE: Frontal view of the chest was obtained. FINDINGS: Evaluation is limited due to patient's rotation. Within limitations, no focal consolidation, pleural effusion or pneumothorax are seen. Unchanged appearance of the cardiomediastinal silhouette. No acute osseous findings. XR/XR chest 1V IMPRESSION: No acute cardiopulmonary findings. Electronically signed by: Melissa Montes De Oca MD 03/06/2024 03:57 PM EDT
--- NOTE | ~2024-03-06 | CT_ITS ---
EXAMINATION: CT HEAD WITHOUT CONTRAST CLINICAL INFORMATION: Headache COMPARISON: 05/01/2022 TECHNIQUE: Contiguous axial imaging was performed from the skull base to vertex without intravenous administration of contrast. This CT examination was performed using dose optimization techniques as appropriate, variously including the following: *Automated exposure control *Adjustment of mA and/or kV according to patient size (this includes techniques or standardized protocols for targeted exams where dose is matched to indication/reason for exam; i.e. extremities or head) *Use of iterative reconstruction technique DLP: 721 mGy-cm FINDINGS: The ventricles and sulci are normal in size and configuration. No acute hemorrhage, mass effect or shift is evident. Chicas-white differentiation is maintained. In the posterior fossa, the brainstem, cerebellum and fourth ventricle image normally. The orbits and calvarium are intact. An 18 mm retention cyst or polyp is again evident within the right sphenoid sinus, unchanged.. CT/CT head/brain wo IV con IMPRESSION: 1. Unremarkable noncontrast brain CT. No acute hemorrhage, mass effect or shift. No significant interval change since 05/01/2022. 2. Stable retention cyst or inflammatory polyp within the right sphenoid sinus. Electronically signed by: Andrew Lutz MD 03/06/2024 03:52 PM EDT RP
--- NOTE | ~2024-03-06 | XR_ITS ---
EXAMINATION: XR FINGER, LEFT CLINICAL INFORMATION: Swelling of the thumb. COMPARISON: None available. TECHNIQUE: Three views of the left thumb. FINDINGS: Mild soft tissue swelling adjacent to the first metacarpophalangeal joint with a subtle focal lucency along the ulnar surface of the distal aspect of the first metacarpal bone. Chronic appearing fusion/ankylosis of the middle and distal phalanges of the fourth digit. Otherwise, unremarkable. No fractures. No dislocation. No unexpected radiopaque foreign bodies. XR/XR finger LT min 2V IMPRESSION: Mild soft tissue swelling adjacent to the first metacarpophalangeal joint with a subtle focal lucency along the ulnar surface of the distal aspect of the first metacarpal bone. This could be related with underlying osteomyelitis in the appropriate clinical context, further characterization with an MRI could be obtained as clinically warranted. Electronically signed by: Melissa Montes De Oca MD 03/06/2024 04:00 PM EDT
[2024-03-06 13:41] VITALS: BP 148/92; PULSE 97; O2SAT 98
--- NOTE | 2024-03-06 13:59 | ECG_ITS ---
Test Reason : WEAKNESS Blood Pressure : / mmHG Vent. Rate : 098 BPM Atrial Rate : 098 BPM P-R Int : 156 ms QRS Dur : 104 ms QT Int : 398 ms P-R-T Axes : 018 001 031 degrees QTc Int : 508 ms Normal sinus rhythm Prolonged QT Abnormal ECG When compared with ECG of 19-OCT-2023 01:45, Nonspecific T wave abnormality no longer evident in Anterior leads Referred By: Oumou Guerrero Electronically Signed By:ZENA TURCIOS
[2024-03-06 14:01] VITALS: BP 132/82; PULSE 103; RESP 18; TEMP 37.3; O2SAT 99; BMI 31.7
[2024-03-06] MEDS: Magnesium Sulfate/H2O 2 GM/50 ML PIGGYBACK IV ×3 (14:27→21:25)
--- NOTE | 2024-03-06 14:31 | ED_ITS ---
HPI - General Adult General Chief complaint: Psychiatric Symptoms Stated complaint: ANXIETY,TREMORS,CARPAL-PEDAL SPASMS PER EMS Time Seen by Provider: 03/06/24 13:50 Source: patient Mode of arrival: EMS Limitations: no limitations History of Present Illness ED Provider: JUAN MCCOY narrative: 53 yo male with PMH of DVT/PE on xarelto, Licha George still on IVIG monthly x 5day, WC bound, PRN home O2 SHAVON, SBO, prior low K, calcium, magnesium here with c/o throbbing in his face, clenching in his hands upon waking up early this AM. He is also under a lot of stress and thought about hurting himself. He is taking his electrolyte supplements. He states he is very stressed out. He has no n/v/d. He is not on diuretics. Denies injury states the pain in his face is intermittent both sides and throbbing. EMS states he was 89% on RA so they placed him on 4L NC but he is 99% on RA here. MD complaint: anxiety, cramps Onset (ago): hour(s) (several) Location: head, mouth, left, right and upper extremity Radiation: non-radiation Severity: moderate Quality: aching and constant Pain Consistency: constant Relieving factors: none Exacerbating factors: movement Associated symptoms: other (depression, anxiety) Treatments prior to arrival: none Related Data Home Medications ?Medication ?Instructions ?Recorded ?Confirmed rivaroxaban 20 mg tablet (Xarelto) 20 mg PO DAILY@1700 10/18/23 10/19/23 cholecalciferol (vitamin D3) 25 25 mcg PO DAILY 10/19/23 10/19/23 mcg (1,000 unit) tablet (Vitamin D3) Previous Rx's ?Medication ?Instructions ?Recorded magnesium oxide 400 mg (241.3 mg 800 mg (2 x 400 mg (241.3 mg 10/24/23 magnesium) tablet magnesium)) PO TID #540 tabs potassium chloride 20 mEq 20 meq PO BID #180 tabs 10/24/23 tablet,extended release(part/cryst) (Klor-Con M) Allergies Allergy/AdvReac Type Severity Reaction Status Date / Time No Known Allergies Allergy Verified 03/06/24 14:06 Review of Systems 2 Review of Systems: Constitutional : No Fever, No Chills, No Fatigue ENT/Mouth : No sore throat, No Rhinorrhea Eyes: No Eye Pain, No Swelling, No Redness Cardiovascular : No Chest Pain, No SOB, No Dyspnea on Exertion Respiratory : No Cough, No Sputum Gastrointestinal : No Nausea, No Vomiting, No Diarrhea, No abdominal Pain Genitourinary : No Dysuria, No Urinary Frequency, No Hematuria, Musculoskeletal : No joint pain, pos Myalgias, No Joint Swelling Skin : No Skin Lesions, No rash Neuro : No Weakness, No Numbness, No Dizziness, positive Headache Psych : pos Anxiety/Panic, pos Depression, pos SI All other systems reviewed and are negative [facility] Past Medical History Attestation statement: The following information was validated with the patient. Source: old records reviewed Medical History Abdominal pain Morbid obesity Guillain-[place] syndrome Femur fracture, right DVT (deep venous thrombosis) Pulmonary embolism Surgical History Status post small bowel resection H/O hand surgery Social History Social History Household Members: Significant Other Housing: Apartment Do you presently have visiting nurse or other home services: Yes Alcohol intake: current Alcohol intake frequency: a few times a week Patient Tobacco Use Status: Former Tobacco user Smoked in Last 30 Days: No Use of substances other than those prescribed or required for medical reasons: No Substance Use Type: Marijuana Advance Directives: Yes Advance Directives on File: Yes Advance Directives Date on File: 08/06/23 Do you have a plan to hurt others: No Plan service: No Physical Exam ED Vital Signs: Vital Signs - 24 hr 03/06/24 14:01 Temperature 99.1 F Pulse Rate 103 H Respiratory Rate 18 Blood Pressure 132/82 Pulse Oximetry 99 Oxygen Delivery Method Room Air BMI result Body Mass Index 31.7 Appearance: Alert. Oriented X3. No acute distress. Eyes: Pupils equal, round and reactive to light. ENT: Pharynx normal. Spasms noted to both cheek area Neck: Normal inspection. Neck supple. CVS: Normal heart rate and rhythm. Pulses normal. Respiratory: No respiratory distress. Breath sounds normal. Abdomen: Soft and nontender. Skin: Skin warm and dry. Normal skin color. Normal skin turgor. Extremities: ankles trace pitting edema , R hand in spasm, L hand in spasm, L MCP joint mildly swollen but no red or hot to touch. Neuro: Oriented X 3. both legs diffusely weak. Course Course Course Narrative: signed out to Dr. Alejandro at 4pm Reevaluation(s) Reevaluation #1: + UA at this time infection suspected lactic acid and cultures ordered IV ceftriaxone ordered Medications Administered Generic Name Dose Route Start Last Admin Trade Name Freq PRN Reason Stop Dose Admin Magnesium Sulfate 2 gm in 50 mls @ 25 mls/hr 03/06/24 14:02 03/06/24 14:27 Magnesium Sulfate/H2o IV 03/06/24 16:01 25 mls/hr ONCE ONE Administration Calcium Gluconate 2 gm in 100 mls @ 50 mls/hr 03/06/24 15:00 03/06/24 15:28 Calcium Gluconate IV 03/06/24 16:59 50 mls/hr ONCE ONE Administration Discontinued Medications Generic Name Dose Route Start Last Admin Trade Name Freq PRN Reason Stop Dose Admin Potassium Chloride 20 meq 03/06/24 14:59 03/06/24 15:28 Potassium Chloride Packet 20 Meq Packet PO 03/06/24 15:00 20 meq ONCE ONE Administration Potassium Chloride 40 meq 03/06/24 14:59 03/06/24 15:28 Potassium Chloride Packet 20 Meq Packet PO 03/06/24 15:00 40 meq ONCE ONE Administration Medical Decision Making Medical Decision Making [facility] Narrative: 53 yo male with PMH of DVT/PE on xarelto, Guillian Cyg[place] still on IVIG monthly x 5day, WC bound, PRN home O2 SHAVON, SBO, prior low K, calcium, magnesium here with muscle spasms and cramps at this time he denies GI loss or diuretic use will obtain basic labs and EKG, start on empiric magnesium as well as PO and IV K/calcium. Will likely need admission. qtc only 508 will continue on tele in ED IV magnesium 2G x 2 IV calcium IV K 10meq x 4 K 60meq PO x 1 Differential Diagnosis Differential Diagnoses: The differential diagnosis associated with the presentation includes suspect lyte abnormality, also c/o depression and SI can be followed while inpatient Admission/Observation Consideration of admission/observation: Escalation of care including admission/observation considered will repeat BMP at 6pm and likely admit after that pending improvement Lab Data [facility] Lab Attestation statement: I reviewed the patient's lab results. 03/06/24 14:25 03/06/24 14:25 Labs: Lab Results 03/06/24 03/06/24 Range/Units 14:25 15:33 WBC 5.7 (4.8-10.8) X10*3/uL RBC 4.51 L D (4.60-5.80) X10*6/uL Hgb 12.2 L D (14.0-18.0) g/dl Hct 37.3 L D (42.0-52.0) % MCV 82.7 (80.0-98.0) fL MCH 27.1 (27.0-33.0) pg MCHC 32.7 (31.0-36.0) g/dl RDW 14.4 (11.0-16.0) % Plt Count 434 H D (160-400) X10*3/uL MPV 9.8 (9.4-12.4) fL Immature Gran % (Auto) 0.4 (0.0-0.4) % Neut % (Auto) 53.2 (45-73) % Lymph % (Auto) 34.8 (20-40) % [place] % (Auto) 10.4 (2-11) % Eos % (Auto) 0.7 (0-4) % Baso % (Auto) 0.5 (0-2) % Lymph # (Auto) 2.0 (1.2-4.9) X10*3/uL [place] # (Auto) 0.6 (0.1-1.2) X10*3/uL Eos # (Auto) 0.0 (0.0-0.4) X10*3/uL Baso # (Auto) 0.0 (0.0-0.2) X10*3/uL Abs Immat Gran (auto) 0.02 (0.00-0.03) X10*3/uL Absolute Neuts (auto) 3.0 (2.0-8.3) x10*3/uL Absolute Nucleated RBC 0.000 (0.0-0.012) X10*3/uL Nucleated RBC % (auto) 0.0 (0.0-0.2) /100WBC Sodium 141 (135-145) mmol/L Potassium 2.0 L* D (3.3-5.1) mmol/L Chloride 103 (96-108) mmol/L Carbon Dioxide 26 (22-29) mmol/L Anion Gap 14 (12-20) BUN 9 (9-16) mg/dL Creatinine 0.64 (0.5-1.4) mg/dL Estim Creat Clear Calc 186.9 Estimated GFR > 60 Random Glucose 115 (60-115) mg/dL Calcium 5.9 L* D (8.4-10.2) mg/dL Magnesium < 0.6 L* (1.6-2.6) mg/dL Total Bilirubin 0.8 (0.0-1.0) mg/dL Direct Bilirubin 0.3 (0.0-0.5) mg/dL AST 55 H (5-37) U/L ALT 148 H (0-40) U/L Alkaline Phosphatase 73 (39-117) U/L Total Creatine Kinase 251 H (38-174) U/L Total Protein 7.1 (6.5-8.0) g/dL Albumin 3.4 L (3.5-5.0) g/dL Lipase 6 L (8-78) U/L Urine Color Dark Yellow Urine Appearance Cloudy Urine pH 6.0 (5.0-9.0) Ur Specific [place] 1.020 (1.005-1.025) Urine Protein 30 (1+) H (Neg-Trace) mg/dL Urine Glucose (UA) Negative (Negative) mg/dL Urine Ketones Negative (Negative) mg/dL Urine Blood Large (3+) H (Negative) Urine Nitrite Negative (Negative) Ur Leukocyte Esterase Moderate (2+) H (Negative) Urine RBC >20 H (0-2) /HPF Urine WBC >50 H (0-5) /HPF Ur Squamous Epith Cells 6-10 (0-2) /HPF Urine Bacteria 2+ (None Seen) Hyaline Casts 0-2 (0-2) /LPF Independent Interpretation I performed an independent interpretation of an: EKG, Plain X-Ray and CT Scan (no ICH) Interpretation: Rate: 98 Rhythm: NSR [place]: normal Normal P waves. Normal EFFIE. Normal QRS complex. ST T wave : nonspecific ST T wave changes lateral leads no LONI qTC: 508 prior studies: qtc prolonged The study has been interpreted contemporaneously by me. . Radiology Impression Discussion of test interpretation with radiology: I have reviewed the radiologist's reading. Independent Historian Clinical information obtained from an independent historian. History obtained from or confirmed by: Spouse External Record Review External record reviewed: Inpatient record Critical Care Time Critical Care Time Critical Care Time: Yes Total Critical Care Time: 60 Attestation: IV magnesium, IV calcium and IV K for lyte repletion, repeat labs I attest to this time spent taking care of the patient Discharge Plan Discharge Clinical Impression: Acute hypokalemia, Hypomagnesemia, Hypocalcemia, Acute UTI Patient Disposition: Home, Self-Care Prescriptions: No Action Xarelto 20 mg tablet 20 mg PO DAILY@1700 Rx Instructions: must administer with evening meal cholecalciferol (vitamin D3) [Vitamin D3] 25 mcg (1,000 unit) Tablet 25 mcg PO DAILY magnesium oxide 400 mg (241.3 mg magnesium) Tablet 800 mg PO TID Qty: 540 0RF potassium chloride [Klor-Con M20] 20 mEq tablet,ER particles/crystals 20 meq PO BID Qty: 180 0RF Interventions: [place]-Suicide Risk Severity Scale Last Done: 03/06/24 15:44 Print Language: Polish
[2024-03-06 14:32] LABS: MANUAL DIFF FLAG NO
[2024-03-06 14:33] LABS: Basophils Percent Auto 0.5 % (0-2); Eosinophils Percent Auto 0.7 % (0-4); Hematocrit 37.3 % (42.0-52.0); Hemoglobin 12.2 g/dl (14.0-18.0); Imm Gran Abs Auto 0.02 X10*3/uL (0.00-0.03); Imm Gran Pct Auto 0.4 % (0.0-0.4); Lymphocytes Percent Auto 34.8 % (20-40); Mean Corpuscular HGB Conc 32.7 g/dl (31.0-36.0); Mean Corpuscular Hemoglobin 27.1 pg (27.0-33.0); Mean Corpuscular Volume 82.7 fL (80.0-98.0); Mean Platelet Volume 9.8 fL (9.4-12.4); Monocytes Absolute Auto 0.6 X10*3/uL (0.1-1.2); Monocytes Percent Auto 10.4 % (2-11); Neutrophils Percent Auto 53.2 % (45-73); Platelet Count 434 X10*3/uL (160-400); Red Blood Count 4.51 X10*6/uL (4.60-5.80); Red Cell Distribution Width 14.4 % (11.0-16.0); White Blood Count 5.7 X10*3/uL (4.8-10.8)
[2024-03-06 15:01] LABS: Alanine Aminotransferase 148 U/L (0-40); Albumin Level 3.4 g/dL (3.5-5.0); Alkaline Phosphatase 73 U/L (39-117); Anion Gap 14 (12-20); Aspartate Amino Transferase 55 U/L (5-37); Bilirubin Direct 0.3 mg/dL (0.0-0.5); Bilirubin Total 0.8 mg/dL (0.0-1.0); Blood Urea Nitrogen 9 mg/dL (9-16); Calcium 5.9 mg/dL (8.4-10.2); Carbon Dioxide 26 mmol/L (22-29); Chloride 103 mmol/L (96-108); Creatinine Clr Calc Pharmacy 186.9; Estimated Glomerular Filt Rate > 60; Glucose Random 115 mg/dL (60-115); Lipase 6 U/L (8-78); Magnesium < 0.6 mg/dL (1.6-2.6); Sodium 141 mmol/L (135-145); Total Protein 7.1 g/dL (6.5-8.0)
[2024-03-06] MEDS: Calcium Gluconate/NaCl,Iso-Osm 2 GM/100 ML PLAST..BAG IV ×2 (15:28→21:39)
[2024-03-06] MEDS: Potassium Chloride Packet 20 MEQ PACKET 40 MEQ PO ×2 (15:28→21:25)
[2024-03-06] MEDS: Potassium Chloride Packet 20 MEQ PACKET PO (15:28)
--- NOTE | 2024-03-06 15:39 | PC.NURSE ---
Addendum entered by Slime Rainey RN 03/06/24 15:45: sitter at bedside. Original Note: When patient initially presented to the ED he stated he knew that his electrolytes are low but his main concern is that he's very stressed out and would like to speak to crisis , denied HI, stated I don't really wanna answer that when asked about SI, when further pressed, patient admits to harming himself without specific plan. Patient's electrolytes critically low, replacement initiated. Security called to look through patient's belongings, patient changed over into hospital [facility], belongings remain at bedside per patient preference. Plan for patient to admitted to hospital for electrolyte replacement.
[2024-03-06 15:40] LABS: Appearance Urine Cloudy; Color Urine Dark Yellow; Glucose Urine UA Negative (Negative); Leukocyte Esterase Urine Moderate (2+) (Negative); Nitrite Urine Negative (Negative); UMIC TRIGGER UACC YES; Urine Blood Large (3+) (Negative); Urine Ketones Negative (Negative); Urine Protein 30 (1+) mg/dL (Neg-Trace)
[2024-03-06 15:43] LABS: Bacteria Urine 2+ (None Seen); Hyaline Casts Urine 0-2 /LPF (0-2); RBC Urine >20 /HPF (0-2); UACC Culture Trigger YES; WBC Urine >50 /HPF (0-5)
[2024-03-06] MEDS: Potassium Chloride/H20 10 MEQ/100 ML PIGGYBACK 100 MEQ IV ×2 (16:30→18:08)
[2024-03-06] MEDS: cefTRIAXone sodium 1 GM in 0.9 % Sodium Chloride 50 ML IV (17:35)
--- NOTE | 2024-03-06 17:37 | PC.NURSE ---
ABX delayed d/t patient difficult stick, BC delayed. IV K slowed d/t patient c/o burning.
[2024-03-06 18:09] VITALS: BP 133/81; PULSE 89; RESP 20; O2SAT 97
--- NOTE | 2024-03-06 19:52 | PC.NURSE ---
Called lab regarding repeat BMP, pending since 1849, lab Eli stated it should be about another 10 minutes.
[2024-03-06] MEDS: Potassium Chloride/H20 10 MEQ/100 ML PIGGYBACK 66 MEQ IV ×2 (19:59→21:25)
[2024-03-06 20:41] LABS: Anion Gap 18 (12-20); Blood Urea Nitrogen 8 mg/dL (9-16); Calcium 6.5 mg/dL (8.4-10.2); Carbon Dioxide 21 mmol/L (22-29); Chloride 105 mmol/L (96-108); Creatinine Clr Calc Pharmacy 206.2; Estimated Glomerular Filt Rate > 60; Glucose Random 81 mg/dL (60-115); Magnesium 1.6 mg/dL (1.6-2.6); Potassium 2.6 mmol/L (3.3-5.1); Sodium 141 mmol/L (135-145)
--- NOTE | 2024-03-06 20:46 | PM.IMHP ---
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 He has history of severe electrolyte abnormality and has required admission for this in the past including hypokalemia, hypomagnesemia and hypocalcemia with admission in 09/2023. At that time, he was not eating well and was also having significant diarrhea. He was discharged on electrolyte supplements but states he discontinued these several weeks ago. However, he reports he has been eating a balanced diet and denies any GI losses including vomiting or diarrhea. In addition to the facial twitching/throbbing, he also does describe intermittent myalgias. He is wheelchair-bound at baseline due to Guillain-Salina syndrome. He does also endorse dysuria and a small amount of hematuria noted today. No fevers, chills, abdominal pain, increased urinary frequency/urgency, decreased urinary output, palpitations, lightheadedness, shortness of breath, or chest pain. He does have history of small bowel resection. Since arrival, vital signs have been stable. There is no leukocytosis. He has a mild normocytic anemia with H/H 12.2/37.3%. On arrival, renal function within normal limits, K 2.0, calcium 5.9, magnesium level undetectable. Albumin 3.4. AST 55, ALT 148. Urinalysis with 3+ blood, 2+ leukocytes, positive urinary sediment, 2+ bacteria, 1+ protein. Head CT negative for any acute intracranial abnormality. CXR negative for acute cardiopulmonary abnormality. X-ray of the left thumb ordered due to swelling which shows mild soft tissue swelling adjacent to the 1st metacarpophalangeal joint with subtle focal lucency along the ulnar surface of the distal aspect of the 1st metacarpal bone, possibly underlying osteomyelitis in the appropriate clinical context. On arrival, apparently the patient had also made vague suicidal statements but on further questioning, states he had an argument with his friend and adamantly denies any SI/HI. In the ED, given 4 g IV magnesium, 40 mEq IV potassium, 60 mEq oral potassium, 2 g calcium gluconate, and IV ceftriaxone. Following electrolyte repletion, repeat potassium 2.6, magnesium 1.6, calcium 6.5. EKG shows NSR, rate 98 with prolonged QTC of 508 without any acute ischemic changes. Reports occasional alcohol use is a former cigarette smoker and denies illicit drug use. Review of Systems Review of Systems: Yes all other systems are reviewed and are negative [facility] Medical History Abdominal pain Morbid obesity Guillain-Salina syndrome Femur fracture, right DVT (deep venous thrombosis) Pulmonary embolism Surgical History Status post small bowel resection H/O hand surgery Social History Household Members: Significant Other Housing: Apartment Do you presently have visiting nurse or other home services: Yes Alcohol intake: current Alcohol intake frequency: a few times a week Patient Tobacco Use Status: Former Tobacco user Smoked in Last 30 Days: No Use of substances other than those prescribed or required for medical reasons: No Substance Use Type: Marijuana Advance Directives: Yes Advance Directives on File: Yes Advance Directives Date on File: 08/06/23 Do you have a plan to hurt others: No Plan service: No Meds Allergies Allergy/AdvReac Type Severity Reaction Status Date / Time No Known Allergies Allergy Verified 03/06/24 14:06 Active Medications: Current Medications Acetaminophen (Acetaminophen 325 Mg Tablet) 650 mg PO Q6H PRN PRN Reason: Pain, Mild (Pain Scale 1-3), fever or headache Calcium Carbonate (Calcium Carbonate 750 Mg Tab.Chew) 750 mg PO Q4H PRN PRN Reason: Heartburn Magnesium Sulfate (Magnesium Sulfate/H2o) 2 gm in 50 mls @ 25 mls/hr IV ONCE ONE Stop: 03/06/24 22:42 Potassium Chloride (Potassium Chloride/H20) 10 meq in 100 mls @ 100 mls/hr IV Q1H YOLETTE Stop: 03/06/24 22:44 Magnesium Hydroxide (Milk Of Magnesia 30 Ml Oral.Susp) 30 ml PO DAILY PRN PRN Reason: Constipation Magnesium Oxide (Magnesium Oxide 400 Mg Tablet) 400 mg PO BIDPC [facility] Melatonin (Melatonin 3 Mg Tablet) 6 mg PO BEDTIME PRN PRN Reason: Insomnia Sodium Chloride (0.9 % Sodium Chloride Flush 3 Ml Syringe) 3 ml IVFLUSH QSHIFT [facility] Home Medications ?Medication ?Instructions ?Recorded ?Confirmed ?Last Taken ?Type rivaroxaban 20 mg tablet (Xarelto) 20 mg PO DAILY@1700 10/18/23 03/06/24 03/05/24 History cholecalciferol (vitamin D3) 25 25 mcg PO DAILY 10/19/23 03/06/24 03/06/24 History mcg (1,000 unit) tablet (Vitamin D3) baclofen 5 mg tablet 5 mg PO BID PRN Muscle Spasm 03/06/24 03/06/24 Unknown History cyanocobalamin (vitamin B-12) 1,000 mcg PO DAILY 03/06/24 03/06/24 03/06/24 History 1,000 mcg tablet (Vitamin B-12) docusate sodium 100 mg capsule 100 mg PO BID PRN Constipation 03/06/24 03/06/24 Unknown History ferrous sulfate 325 mg (65 mg 325 mg PO DAILY 03/06/24 03/06/24 03/06/24 History iron) tablet folic acid 1 mg tablet 1 mg PO DAILY 03/06/24 03/06/24 03/06/24 History Physical Exam Vital Signs and Narrative: Vital Signs: Last Vital Signs Temp 99.1 F 03/06/24 14:01 Pulse 89 03/06/24 18:09 Resp 20 03/06/24 18:09 BP 133/81 03/06/24 18:09 Pulse Ox 97 03/06/24 18:09 O2 Del Method Room Air 03/06/24 18:09 BMI result Body Mass Index 31.7 Constitutional - Awake and Alert, No apparent distress Eyes - PERRLA, EOMI Cardiovascular - S1S2, RRR, No edema Respiratory - Normal lung expansion, Normal respiratory effort, No respiratory distress, CTA bilaterally Gastrointestinal - NT / ND; +BS; No rebound or guarding Extremities - no calf tenderness bilaterally, no swelling Skin - Warm/Dry Neurological - Alert & oriented x3, CN II-XII in tact, 5/5 strength BUE and 2/5 strength BLE. + chvostek sign Psychological - Appropriate affect Results Labs 03/06/24 14:25 03/06/24 18:45 Labs: Laboratory Results - last 24 hr 03/06/24 03/06/24 03/06/24 14:25 15:33 16:53 MCV 82.7 MCH 27.1 MCHC 32.7 RDW 14.4 Plt Count 434 H D MPV 9.8 Immature Gran % (Auto) 0.4 Neut % (Auto) 53.2 Lymph % (Auto) 34.8 [place] % (Auto) 10.4 Eos % (Auto) 0.7 Baso % (Auto) 0.5 Lymph # (Auto) 2.0 [place] # (Auto) 0.6 Eos # (Auto) 0.0 Baso # (Auto) 0.0 Abs Immat Gran (auto) 0.02 Absolute Neuts (auto) 3.0 Absolute Nucleated RBC 0.000 Nucleated RBC % (auto) 0.0 Anion Gap 14 Estim Creat Clear Calc 186.9 Estimated GFR > 60 Random Glucose 115 Lactic Acid 1.0 Calcium 5.9 L* D Magnesium < 0.6 L* Total Bilirubin 0.8 Direct Bilirubin 0.3 AST 55 H ALT 148 H Alkaline Phosphatase 73 Total Creatine Kinase 251 H Total Protein 7.1 Albumin 3.4 L Lipase 6 L Urine Color Dark Yellow Urine Appearance Cloudy Urine pH 6.0 Ur Specific [place] 1.020 Urine Protein 30 (1+) H Urine Glucose (UA) Negative Urine Ketones Negative Urine Blood Large (3+) H Urine Nitrite Negative Ur Leukocyte Esterase Moderate (2+) H Urine RBC >20 H Urine WBC >50 H Ur Squamous Epith Cells 6-10 Urine Bacteria 2+ Hyaline Casts 0-2 03/06/24 18:45 MCV MCH MCHC RDW Plt Count MPV Immature Gran % (Auto) Neut % (Auto) Lymph % (Auto) [place] % (Auto) Eos % (Auto) Baso % (Auto) Lymph # (Auto) [place] # (Auto) Eos # (Auto) Baso # (Auto) Abs Immat Gran (auto) Absolute Neuts (auto) Absolute Nucleated RBC Nucleated RBC % (auto) Anion Gap 18 Estim Creat Clear Calc 206.2 Estimated GFR > 60 Random Glucose 81 Lactic Acid Calcium 6.5 L D Magnesium 1.6 Total Bilirubin Direct Bilirubin AST ALT Alkaline Phosphatase Total Creatine Kinase Total Protein Albumin Lipase Urine Color Urine Appearance Urine pH Ur Specific [place] Urine Protein Urine Glucose (UA) Urine Ketones Urine Blood Urine Nitrite Ur Leukocyte Esterase Urine RBC Urine WBC Ur Squamous Epith Cells Urine Bacteria Hyaline Casts Imaging Radiologist's Impressions: Impressions Head CT 03/06/24 14:49 IMPRESSION: 1. Unremarkable noncontrast brain CT. No acute hemorrhage, mass effect or shift. No significant interval change since 05/01/2022. 2. Stable retention cyst or inflammatory polyp within the right sphenoid sinus. Electronically signed by: Andrew Lutz MD 03/06/2024 03:52 PM EDT RP Chest X-Ray 03/06/24 14:50 IMPRESSION: No acute cardiopulmonary findings. Electronically signed by: Melissa Montes De Oca MD 03/06/2024 03:57 PM EDT RP Finger X-Ray 03/06/24 14:52 IMPRESSION: Mild soft tissue swelling adjacent to the first metacarpophalangeal joint with a subtle focal lucency along the ulnar surface of the distal aspect of the first metacarpal bone. This could be related with underlying osteomyelitis in the appropriate clinical context, further characterization with an MRI could be obtained as clinically warranted. 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 No GI losses, reports balanced diet. Hx of same, discontinued lyte replacement several weeks ago -renal fx wnl. No etoh abuse. Check PTH and vitamin-D level. Check urine creatinine and lytes -Give addl 40meq IV and PO KCl, 2g IV Mg, 2g IV calc gluc -Add PO mag, add calcium/vit d. Reeval lytes am -nephro consult -has hx small bowel resection. Consider GI consult vs outpt follow up -continue tele monitoring -follow lytes closely #Acute UTI -no leukocytosis, no sepsis -IV ceftriaxone (initiated 03/06) -follow cultures #Acute transaminitis -hepatitis panel, RUQ u/s -trend # Guillain-Salina syndrome -on IVIG monthly x5 days -wheelchair-bound at baseline # SHAVON -noncompliant with CPAP, 2 L supplemental O2 at bedtime #h/o pe/dvt -continue xarelto dvt prophylaxis- xarelto full code Patient requires inpatient hospitalization at least 2 midnights for management acute hypokalemia/hypocalcemia, hypomagnesemia requiring IV electrolyte repletion, cardiac monitoring, and close monitoring of renal function and electrolyte levels with expert consultation Quality Stroke Does the patient have a stroke diagnosis?: No VTE Prior VTE?: Yes VTE Risk Level:: Medical - moderate - high VTE Device Contraindication: Treatment Not Indicated VTE Drug Contraindication: N/A - Med Ordered
[2024-03-06] MEDS: Calcium + Vitamin D 250 MG TABLET 500 MG PO (21:25)
[2024-03-06] MEDS: Magnesium Oxide 400 MG TABLET PO (21:25)
--- NOTE | 2024-03-06 22:03 | PHA.MEDREC ---
Addendum entered by Marcela Zaldivar RPh 03/06/24 22:10: reviewed by [facility]. Original Note: Pharmacy Consult ? Medication Reconciliation Pharmacy has completed the medication reconciliation. Spoke to patient to confirm med list. Patient states he is no longer taking Calcium 500 -vitamin D and Klor-con m20.
--- NOTE | 2024-03-06 22:16 | PC.NURSE ---
lab called, can run the ESR/CRP d/t length of time from original specimen, re-ordered. Urine creat/electrolytes okay'd to be added on to previous sample.
[2024-03-06 22:28] LABS: C Reactive Protein 3.64 mg/dL (< or = 0.50)
[2024-03-06 22:54] LABS: C Reactive Protein 3.77 mg/dL (< or = 0.50)
[2024-03-06 23:09] LABS: Creatinine Urine 105.18 mg/dL; Potassium Urine Random 71.7 mmol/L
[2024-03-06 23:11] LABS: Vitamin D 25-OH Total 18.8 ng/mL (>30)
[2024-03-07 00:30] LABS: Erythrocyte Sedimentation Rate 38 MM/HR (0-15)
[2024-03-07 00:39] VITALS: BP 111/75; PULSE 81; RESP 16; TEMP 37.1; O2SAT 98
[2024-03-07] MEDS: Lactated Ringers 1,000 ML 80 ML IVCONT ×2 (00:49→12:13)
[2024-03-07] MEDS: Potassium Chloride/H20 10 MEQ/100 ML PIGGYBACK 100 MEQ IV ×4 (00:49→04:32)
[2024-03-07 01:08] LABS: Creatinine Urine 71.51 mg/dL; Potassium Urine Random 37.6 mmol/L
[2024-03-07] MEDS: Acetaminophen 325 MG TABLET 650 MG PO (01:08)
--- NOTE | 2024-03-07 01:10 | PC.NURSE ---
assumed care of pt [id number], found patient to have belongings at bedside and necklace around neck. chargemaster specialist and security notified. belongings documented and secured. iv infusions completed as documented. potassium delayed per jul pharmacy and MD aware. pt reports burning with potassium, MD aware, to infuse potassium with LR. pt is calm/cooperative denies and concerns at this time. refusing to answer SI questions, denies HI. 1:1 sitter at bedside. pt is on heart monitor. reports ARAGON 10/07, requests tylenol, given per jul.
--- NOTE | 2024-03-07 01:46 | MHC.EDTECH ---
This pct was assign to sit with Patient ,vitals taken ,Patient urine sample collected and sent to lab .Patient belongings was locked up in locker #11 ,Patient money $7,680 was locked up with security .Patient is aware that upon discharged he can Picked up his money in the security office .
[2024-03-07 04:32] LABS: HBS Num1 396.14 mIU/mL (0-7.99); HBc Num1 2.44 S/CO (0.00-0.79); HBsAGNum1 1.88 S/CO (0.00-0.99); Hepatitis A Antibody IgM 0.21 Index (0-0.79); ~HepC Num1 0.13 S/CO (0.00-0.79); ~Hepatitis A Antibody IgM Nonreactive (Nonreactive); ~Hepatitis B Surface Antibody REACTIVE (Nonreactive); ~Hepatitis C Antibody Nonreactive (Nonreactive)
[2024-03-07 05:17] LABS: Alanine Aminotransferase 126 U/L (0-40); Albumin Level 3.1 g/dL (3.5-5.0); Alkaline Phosphatase 75 U/L (39-117); Aspartate Amino Transferase 45 U/L (5-37); Bilirubin Direct 0.4 mg/dL (0.0-0.5); Bilirubin Total 0.8 mg/dL (0.0-1.0); Total Protein 6.5 g/dL (6.5-8.0)
[2024-03-07 05:54] VITALS: BP 111/81; PULSE 65; RESP 17; TEMP 36.9; O2SAT 96
[2024-03-07 06:05] LABS: Parathyroid Hormone Intact 164.2 pg/mL (8.7-77.1)
[2024-03-07 06:50] LABS: HBc Num3 2.34 S/CO; HBsAGNum2 Nonreactive; HBsAGNum3 Nonreactive; Hepatitis B Core Antibody Reactive (Nonreactive); Hepatitis B Surface Antigen NEGATIVE (Negative)
[2024-03-07 07:03] LABS: Anion Gap 12 (12-20)
[2024-03-07 07:22] LABS: Blood Urea Nitrogen 7 mg/dL (9-16); Calcium 6.9 mg/dL (8.4-10.2); Carbon Dioxide 27 mmol/L (22-29); Chloride 106 mmol/L (96-108); Creatinine Clr Calc Pharmacy 192.9; Estimated Glomerular Filt Rate > 60; Glucose Random 93 mg/dL (60-115); Magnesium 1.7 mg/dL (1.6-2.6); Sodium 142 mmol/L (135-145)
[2024-03-07 08:26] VITALS: BP 123/75; PULSE 68; RESP 11; TEMP 36.4; O2SAT 96
[2024-03-07] MEDS: Calcium + Vitamin D 250 MG TABLET 500 MG PO ×2 (08:34→17:37)
[2024-03-07] MEDS: Potassium Chloride Packet 20 MEQ PACKET 40 MEQ PO ×2 (08:34→10:50)
[2024-03-07] MEDS: Magnesium Sulfate/H2O 2 GM/50 ML PIGGYBACK IV (08:35)
[2024-03-07] MEDS: 0.9 % Sodium Chloride Flush 3 ML SYRINGE IVFLUSH ×2 (08:37→16:06)
[2024-03-07] MEDS: Cyanocobalamin (Vitamin B-12) 1,000 MCG TABLET 1000 MCG PO (08:44)
[2024-03-07] MEDS: Folic Acid 1 MG TABLET PO (08:44)
[2024-03-07] MEDS: Magnesium Oxide 400 MG TABLET 800 MG PO ×3 (08:44→21:58)
[2024-03-07] MEDS: Ferrous Sulfate 324 MG TABLET.DR PO (08:46)
--- NOTE | 2024-03-07 10:36 | PM.CNNEP ---
History of Present Illness Reason for Consult Consult date: 03/07/24 Chief Complaint Chief complaint: severe electrolyte abn- K, Ca, Mag History of Present Illness Narrative: Pt is a 54 y/o male with a PMH of DCT/PE (xarelto), Guillain-Park Syndrome reports in 2003 (on monthly IVIG), chronically wheelchair bount, SHAVON (req nocturnal O2 not on CPAP). had admission in September 2023 for severe electrolyte imbalances, had surgery for small bowel obstruction prior and diarrhea thought to precipitate imbalance. Pt reports he has been taking oral electrolyte replacement since, until a few weeks ago, states he ran out of some and his PCP discontinued potassium replacement recently. reports developed severe cramping, facial twitching/throbbing, came into the hospital yesterday, 03/06 on 03/06, potassium 2.0 (today 3.0), Calcium 5.9 (today 6.9), magnesium <0.6 (today 1.7); Creatinine and GFR unremarkable, some mild protein and large blood in urine, being treated for UTI potassium, calcium and magnesium replaced Of note CT abd/pelvis in September- kidneys unremarkable pt alert and conversant at bedside states muscle cramping/twitching has improved he denies regular NSAID use or other OTC medications denies regular alcohol use former smoker denies ilicit drug use states prior to September he did not have any electrolyte problems that he knew of denies known personal or family history of kidney disease or urologic problems He denies chest pain, shortness of breath He reports natalia blood in urine since hospitalization, none previously, denies other urinary symptoms- no pain, diff emptying bladder, flank pain, urgency/frequency 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 Review of Systems Constitutional: Reports no additional constitutional complaints Cardiovascular: Denies chest pain, Denies irregular heart rhythm, Denies leg edema, Denies lightheadedness and Denies dyspnea Respiratory: Denies dyspnea Genitourinary: Reports hematuria, Denies dysuria, Denies flank pain, Denies urinary frequency, Denies urinary hesitancy and Denies urinary urgency PMFSH Past Medical History Medical History Abdominal pain Morbid obesity Guillain-Park syndrome Femur fracture, right DVT (deep venous thrombosis) Pulmonary embolism Surgical History Surgical History Status post small bowel resection H/O hand surgery Social History Social History Household Members: Significant Other Housing: Apartment Do you presently have visiting nurse or other home services: Yes Alcohol intake: current Alcohol intake frequency: a few times a week Patient Tobacco Use Status: Former Tobacco user Smoked in Last 30 Days: No Use of substances other than those prescribed or required for medical reasons: No Substance Use Type: Marijuana Advance Directives: Yes Advance Directives on File: Yes Advance Directives Date on File: 08/06/23 Do you have a plan to hurt others: No Plan Nutrition Risks: No Nutritional Risk service: No Meds Allergies Allergy/AdvReac Type Severity Reaction Status Date / Time No Known Allergies Allergy Verified 03/06/24 14:06 Active Medications: Current Medications Acetaminophen (Acetaminophen 325 Mg Tablet) 650 mg PO Q6H PRN PRN Reason: Pain, Mild (Pain Scale 1-3), fever or headache Last Admin: 03/07/24 01:08 Dose: 650 mg Baclofen (Baclofen 10 Mg Tablet) 5 mg PO BID PRN PRN Reason: Muscle Spasm Calcium Carbonate (Calcium Carbonate 750 Mg Tab.Chew) 750 mg PO Q4H PRN PRN Reason: Heartburn Calcium Carbonate/Cholecalciferol (Calcium + Vitamin D 250 Mg Tablet) 500 mg PO BIDWM [facility] Last Admin: 03/07/24 08:34 Dose: 500 mg Cyanocobalamin (Cyanocobalamin (Vitamin B-12) 1,000 Mcg Tablet) 1,000 mcg PO DAILY [facility] Last Admin: 03/07/24 08:44 Dose: 1,000 mcg Docusate Sodium (Docusate Sodium 100 Mg Capsule) 100 mg PO BID PRN PRN Reason: Constipation Ferrous Sulfate (Ferrous Sulfate 324 Mg Tablet.Dr) 324 mg PO DAILY [facility] Last Admin: 03/07/24 08:46 Dose: 324 mg Folic Acid (Folic Acid 1 Mg Tablet) 1 mg PO DAILY [facility] Last Admin: 03/07/24 08:44 Dose: 1 mg Ceftriaxone Sodium 1 gm/ (Sodium Chloride) 50 mls @ 100 mls/hr IV Q24H [facility] Lactated Ringer's (Lr) 1,000 mls @ 80 mls/hr IVCONT .[id number] [facility] Last Admin: 03/07/24 00:49 Dose: 80 mls/hr Magnesium Hydroxide (Milk Of Magnesia 30 Ml Oral.Susp) 30 ml PO DAILY PRN PRN Reason: Constipation Magnesium Oxide (Magnesium Oxide 400 Mg Tablet) 800 mg PO TID [facility] Last Admin: 03/07/24 08:44 Dose: 800 mg Melatonin (Melatonin 3 Mg Tablet) 6 mg PO BEDTIME PRN PRN Reason: Insomnia Rivaroxaban (Rivaroxaban 20 Mg Tablet) 20 mg PO DAILY@1700 [facility] Sodium Chloride (0.9 % Sodium Chloride Flush 3 Ml Syringe) 3 ml IVFLUSH QSHIFT [facility] Last Admin: 03/07/24 08:37 Dose: 3 ml Home Medications ?Medication ?Instructions ?Recorded ?Confirmed ?Last Taken ?Type rivaroxaban 20 mg tablet (Xarelto) 20 mg PO DAILY@1700 10/18/23 03/06/24 03/05/24 History cholecalciferol (vitamin D3) 25 25 mcg PO DAILY 10/19/23 03/06/24 03/06/24 History mcg (1,000 unit) tablet (Vitamin D3) baclofen 5 mg tablet 5 mg PO BID PRN Muscle Spasm 03/06/24 03/06/24 Unknown History cyanocobalamin (vitamin B-12) 1,000 mcg PO DAILY 03/06/24 03/06/24 03/06/24 History 1,000 mcg tablet (Vitamin B-12) docusate sodium 100 mg capsule 100 mg PO BID PRN Constipation 03/06/24 03/06/24 Unknown History ferrous sulfate 325 mg (65 mg 325 mg PO DAILY 03/06/24 03/06/24 03/06/24 History iron) tablet folic acid 1 mg tablet 1 mg PO DAILY 03/06/24 03/06/24 03/06/24 History Physical Exam Vital Signs: Last Vital Signs Temp 97.6 F 03/07/24 08:26 Pulse 68 03/07/24 08:26 Resp 11 L 03/07/24 08:26 BP 123/75 03/07/24 08:26 Pulse Ox 96 03/07/24 08:26 O2 Del Method Room Air 03/07/24 08:26 BMI result Body Mass Index 31.7 Results Lab Results 03/06/24 14:25 03/07/24 04:16 Lab results: Chemistry 03/06/24 03/06/24 03/07/24 14:25 18:45 04:16 Sodium 141 141 142 Potassium 2.0 L* D 2.6 L* D 3.0 L Carbon Dioxide 26 21 L 27 BUN 9 8 L 7 L Creatinine 0.64 0.58 0.62 Calcium 5.9 L* D 6.5 L D 6.9 L D Hematology 03/06/24 14:25 WBC 5.7 Hgb 12.2 L D Plt Count 434 H D Urinalysis 03/06/24 15:33 Urine Color Dark Yellow Urine Appearance Cloudy Urine pH 6.0 Ur Specific [place] 1.020 Urine Protein 30 (1+) H Urine Glucose (UA) Negative Urine Ketones Negative Urine Blood Large (3+) H Urine Nitrite Negative Ur Leukocyte Esterase Moderate (2+) H Urine RBC >20 H Urine WBC >50 H Ur Squamous Epith Cells 6-10 Hyaline Casts 0-2 Urine Studies 03/06/24 03/07/24 15:33 00:45 Urine Creatinine 105.18 71.51 Assessment and Plan (1) Hypocalcemia: Status: Acute (2) Hypomagnesemia: Status: Acute (3) Acute hypokalemia: Status: Acute Plan Multiple electrolyte imbalances, including hypocalcemia, hypomagnesemia, hypokalemia. Likely related to proximal tubular wasting of unclear etiology ?Fanconi syndrome will check urine phosphorous, urine uric acid, and serum phosphorous levels continue to monitor electrolytes and replace as needed Will continue workup Discussed with Dr Cole Westbrook Date of Service Date of Service: 03/07/24
--- NOTE | 2024-03-07 10:41 | PC.NURSE ---
Eli PICKETT notified his urine is clear again.
[2024-03-07 11:51] LABS: Phosphorus Urine Random 17.2 mg/dL
[2024-03-07 12:06] LABS: Uric Acid Urine Random 13.2 mg/dL
[2024-03-07 12:13] VITALS: BP 131/79; PULSE 65; RESP 16; TEMP 36.3; O2SAT 98
--- NOTE | 2024-03-07 13:44 | P.PNIM_ITS ---
Subjective Subjective Date of Service: 03/07/24 Interval History: Seen in follow-up for hypokalemia, hypocalcemia, hypomagnesemia Interval history: Symptomatic improvement. Denies ongoing muscle twitching/throbbing in the face. Continues to deny SI/HI. Continues with dysuria and dark urine Review of Systems Review of Systems: Yes all other systems are reviewed and are negative Physical Exam 2 Vital Signs: Vital Signs: Last Vital Signs Temp 97.3 F 03/07/24 12:13 Pulse 65 03/07/24 12:13 Resp 16 03/07/24 12:13 BP 131/79 03/07/24 12:13 Pulse Ox 98 03/07/24 12:13 O2 Del Method Room Air 03/07/24 12:13 BMI result Body Mass Index 31.7 Constitutional - Awake and Alert, No apparent distress Eyes - PERRLA, EOMI Cardiovascular - S1S2, RRR, No edema Respiratory - Normal lung expansion, Normal respiratory effort, No respiratory distress, CTA bilaterally Gastrointestinal - NT / ND; +BS; No rebound or guarding Extremities - no calf tenderness bilaterally, no swelling Skin - Warm/Dry Neurological - Alert & oriented x3, -Chvostek sign Psychological - Appropriate affect Objective Data Active Medications Acetaminophen (Acetaminophen 325 Mg Tablet) 650 mg PO Q6H PRN PRN Reason: Pain, Mild (Pain Scale 1-3), fever or headache Last Admin: 03/07/24 01:08 Dose: 650 mg Documented By: NICO Baclofen (Baclofen 10 Mg Tablet) 5 mg PO BID PRN PRN Reason: Muscle Spasm Calcium Carbonate (Calcium Carbonate 750 Mg Tab.Chew) 750 mg PO Q4H PRN PRN Reason: Heartburn Calcium Carbonate/Cholecalciferol (Calcium + Vitamin D 250 Mg Tablet) 500 mg PO BIDWM [facility] Last Admin: 03/07/24 08:34 Dose: 500 mg Documented By: STONE Cyanocobalamin (Cyanocobalamin (Vitamin B-12) 1,000 Mcg Tablet) 1,000 mcg PO DAILY [facility] Last Admin: 03/07/24 08:44 Dose: 1,000 mcg Documented By: STONE Docusate Sodium (Docusate Sodium 100 Mg Capsule) 100 mg PO BID PRN PRN Reason: Constipation Ferrous Sulfate (Ferrous Sulfate 324 Mg Tablet.Dr) 324 mg PO DAILY [facility] Last Admin: 03/07/24 08:46 Dose: 324 mg Documented By: STONE Folic Acid (Folic Acid 1 Mg Tablet) 1 mg PO DAILY [facility] Last Admin: 03/07/24 08:44 Dose: 1 mg Documented By: STONE Ceftriaxone Sodium 1 gm/ (Sodium Chloride) 50 mls @ 100 mls/hr IV Q24H [facility] Lactated Ringer's (Lr) 1,000 mls @ 80 mls/hr IVCONT .[id number] [facility] Last Admin: 03/07/24 12:13 Dose: 80 mls/hr Documented By: STONE Magnesium Hydroxide (Milk Of Magnesia 30 Ml Oral.Susp) 30 ml PO DAILY PRN PRN Reason: Constipation Magnesium Oxide (Magnesium Oxide 400 Mg Tablet) 800 mg PO TID [facility] Last Admin: 03/07/24 08:44 Dose: 800 mg Documented By: STONE Melatonin (Melatonin 3 Mg Tablet) 6 mg PO BEDTIME PRN PRN Reason: Insomnia Rivaroxaban (Rivaroxaban 20 Mg Tablet) 20 mg PO DAILY@1700 [facility] Sodium Chloride (0.9 % Sodium Chloride Flush 3 Ml Syringe) 3 ml IVFLUSH QSHIFT [facility] Last Admin: 03/07/24 08:37 Dose: 3 ml Documented By: STONE Labs 03/06/24 14:25 03/07/24 04:16 Labs: Laboratory Results - last 24 hr 03/06/24 03/06/24 03/06/24 14:25 15:33 16:53 MCV 82.7 MCH 27.1 MCHC 32.7 RDW 14.4 Plt Count 434 H D MPV 9.8 Immature Gran % (Auto) 0.4 Neut % (Auto) 53.2 Lymph % (Auto) 34.8 [place] % (Auto) 10.4 Eos % (Auto) 0.7 Baso % (Auto) 0.5 Lymph # (Auto) 2.0 [place] # (Auto) 0.6 Eos # (Auto) 0.0 Baso # (Auto) 0.0 Abs Immat Gran (auto) 0.02 Absolute Neuts (auto) 3.0 Absolute Nucleated RBC 0.000 Nucleated RBC % (auto) 0.0 ESR Anion Gap 14 Estim Creat Clear Calc 186.9 Estimated GFR > 60 Random Glucose 115 Lactic Acid 1.0 Calcium 5.9 L* D Magnesium < 0.6 L* Total Bilirubin 0.8 Direct Bilirubin 0.3 AST 55 H ALT 148 H Alkaline Phosphatase 73 Total Creatine Kinase 251 H C-Reactive Protein 3.64 H Total Protein 7.1 Albumin 3.4 L Lipase 6 L 25-OH Vitamin D Total PTH Intact Hold Yellow Top Urine Color Dark Yellow Urine Appearance Cloudy Urine pH 6.0 Ur Specific Boyd 1.020 Urine Protein 30 (1+) H Urine Glucose (UA) Negative Urine Ketones Negative Urine Blood Large (3+) H Urine Nitrite Negative Ur Leukocyte Esterase Moderate (2+) H Urine RBC >20 H Urine WBC >50 H Ur Squamous Epith Cells 6-10 Urine Bacteria 2+ Hyaline Casts 0-2 Ur Random Sodium 66.0 Ur Random Potassium 71.7 Ur Random Chloride 154.0 Ur Random Phosphorus Ur Random Uric Acid Urine Creatinine 105.18 Hepatitis A IgM Ab Hep Bs Antigen Hep Bs Antigen (2) Hep Bs Antibody Hep B Core Total Ab Hep B Core IgM Ab Hepatitis C Ab (EIA) 03/06/24 03/06/24 03/06/24 18:45 22:00 22:33 MCV MCH MCHC RDW Plt Count MPV Immature Gran % (Auto) Neut % (Auto) Lymph % (Auto) [place] % (Auto) Eos % (Auto) Baso % (Auto) Lymph # (Auto) [place] # (Auto) Eos # (Auto) Baso # (Auto) Abs Immat Gran (auto) Absolute Neuts (auto) Absolute Nucleated RBC Nucleated RBC % (auto) ESR 38 H Anion Gap 18 Estim Creat Clear Calc 206.2 Estimated GFR > 60 Random Glucose 81 Lactic Acid Calcium 6.5 L D Magnesium 1.6 Total Bilirubin Direct Bilirubin AST ALT Alkaline Phosphatase Total Creatine Kinase C-Reactive Protein 3.77 H Total Protein Albumin Lipase 25-OH Vitamin D Total 18.8 L PTH Intact 164.2 H Hold Yellow Top Urine Color Urine Appearance Urine pH Ur Specific Boyd Urine Protein Urine Glucose (UA) Urine Ketones Urine Blood Urine Nitrite Ur Leukocyte Esterase Urine RBC Urine WBC Ur Squamous Epith Cells Urine Bacteria Hyaline Casts Ur Random Sodium Ur Random Potassium Ur Random Chloride Ur Random Phosphorus Ur Random Uric Acid Urine Creatinine Hepatitis A IgM Ab Nonreactive Hep Bs Antigen Not Reportable Hep Bs Antigen (2) NEGATIVE Hep Bs Antibody REACTIVE Hep B Core Total Ab Reactive Hep B Core IgM Ab Cancelled Hepatitis C Ab (EIA) Nonreactive 03/06/24 03/07/24 03/07/24 22:37 00:45 04:16 MCV MCH MCHC RDW Plt Count MPV Immature Gran % (Auto) Neut % (Auto) Lymph % (Auto) [place] % (Auto) Eos % (Auto) Baso % (Auto) Lymph # (Auto) [place] # (Auto) Eos # (Auto) Baso # (Auto) Abs Immat Gran (auto) Absolute Neuts (auto) Absolute Nucleated RBC Nucleated RBC % (auto) ESR Anion Gap 12 Estim Creat Clear Calc 192.9 Estimated GFR > 60 Random Glucose 93 Lactic Acid Calcium 6.9 L D Magnesium 1.7 Total Bilirubin 0.8 Direct Bilirubin 0.4 AST 45 H ALT 126 H Alkaline Phosphatase 75 Total Creatine Kinase C-Reactive Protein Total Protein 6.5 Albumin 3.1 L Lipase 25-OH Vitamin D Total PTH Intact Hold Yellow Top See Note Urine Color Urine Appearance Urine pH Ur Specific Boyd Urine Protein Urine Glucose (UA) Urine Ketones Urine Blood Urine Nitrite Ur Leukocyte Esterase Urine RBC Urine WBC Ur Squamous Epith Cells Urine Bacteria Hyaline Casts Ur Random Sodium 124.0 Ur Random Potassium 37.6 Ur Random Chloride 123.0 Ur Random Phosphorus Ur Random Uric Acid Urine Creatinine 71.51 Hepatitis A IgM Ab Hep Bs Antigen Hep Bs Antigen (2) Hep Bs Antibody Hep B Core Total Ab Hep B Core IgM Ab Hepatitis C Ab (EIA) 03/07/24 03/07/24 10:39 10:52 MCV MCH MCHC RDW Plt Count MPV Immature Gran % (Auto) Neut % (Auto) Lymph % (Auto) [place] % (Auto) Eos % (Auto) Baso % (Auto) Lymph # (Auto) [place] # (Auto) Eos # (Auto) Baso # (Auto) Abs Immat Gran (auto) Absolute Neuts (auto) Absolute Nucleated RBC Nucleated RBC % (auto) ESR Anion Gap Estim Creat Clear Calc Estimated GFR Random Glucose Lactic Acid Calcium Magnesium Total Bilirubin Direct Bilirubin AST ALT Alkaline Phosphatase Total Creatine Kinase 301 H C-Reactive Protein Total Protein Albumin Lipase 25-OH Vitamin D Total PTH Intact Hold Yellow Top Urine Color Urine Appearance Urine pH Ur Specific Boyd Urine Protein Urine Glucose (UA) Urine Ketones Urine Blood Urine Nitrite Ur Leukocyte Esterase Urine RBC Urine WBC Ur Squamous Epith Cells Urine Bacteria Hyaline Casts Ur Random Sodium Ur Random Potassium Ur Random Chloride Ur Random Phosphorus 17.2 Ur Random Uric Acid 13.2 Urine Creatinine Hepatitis A IgM Ab Hep Bs Antigen Hep Bs Antigen (2) Hep Bs Antibody Hep B Core Total Ab Hep B Core IgM Ab Hepatitis C Ab (EIA) Microbiology Microbiology Results: Microbiology 03/06/24 Unknown Urine Culture - Preliminary Urine clean catch - Clean Catch Midstream Culture in progress. 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 No GI losses, reports balanced diet. Hx of same, discontinued lyte replacement several weeks ago -renal fx wnl. No etoh abuse. -Vit D 18.8. PTH 164.2. Add calcium/vitamin-D p.o. -K improved to 3.0, magnesium 1.7, calcium 6.9 -Start KCl PO 40meq daily -Resume mag oxide 800mg TID -nephro consult pending, ?Fanconi syndrome -has hx small bowel resection. Consider GI consult vs outpt follow up -continue tele monitoring -follow lytes closely #Acute UTI -no leukocytosis, no sepsis -IV ceftriaxone (initiated 03/06) -follow cultures #Acute transaminitis -hepatitis panel negative, US shows fatty liver -trending down # Guillain-Marks syndrome -on IVIG monthly x5 days -wheelchair-bound at baseline # SHAVON -noncompliant with CPAP, 2 L supplemental O2 at bedtime #h/o pe/dvt -continue xarelto dvt prophylaxis- xarelto full code Patient requires ongoing inpt stay for electrolyte repletion with close monitoring, cardiac monitoring, and expert consultation Quality Stroke Does the patient have a stroke diagnosis?: No VTE Prior VTE?: Yes VTE Risk Level:: Medical - moderate - high VTE Device Contraindication: Treatment Not Indicated VTE Drug Contraindication: N/A - Med Ordered
[2024-03-07] MEDS: cefTRIAXone sodium 1 GM in 0.9 % Sodium Chloride 50 ML IV (16:03)
[2024-03-07 16:07] VITALS: BP 131/79; PULSE 69; RESP 16; TEMP 36.9; O2SAT 99
[2024-03-07] MEDS: Rivaroxaban 20 MG TABLET PO (17:37)
[2024-03-07] MEDS: Flu Vacc TS2024-25(6mos up)/PF 0.5 ML SYRINGE IM (21:59)
[2024-03-08] VITALS (7 sets, daily range): BP systolic 132–154; BP diastolic 78–88; PULSE 54–69; RESP 16–20; TEMP 36.5–37.3; O2SAT 98–100
[2024-03-08] MEDS: Lactated Ringers 1,000 ML 80 ML IVCONT ×2 (03:35→16:09)
[2024-03-08 06:27] LABS: Anion Gap 10 (12-20); Blood Urea Nitrogen 8 mg/dL (9-16); Calcium 7.9 mg/dL (8.4-10.2); Carbon Dioxide 29 mmol/L (22-29); Chloride 106 mmol/L (96-108); Creatinine Clr Calc Pharmacy 209.8; Estimated Glomerular Filt Rate > 60; Glucose Random 84 mg/dL (60-115); Magnesium 2.2 mg/dL (1.6-2.6); Phosphorus 4.4 mg/dL (2.7-4.5); Potassium 3.2 mmol/L (3.3-5.1); Sodium 142 mmol/L (135-145)
--- NOTE | 2024-03-08 06:56 | HO.PM.IMPN ---
Subjective Subjective Date of Service: 03/08/24 Interval History: Seen in follow-up for hypokalemia, hypocalcemia, hypomagnesemia Interval history: Denies ongoing muscle twitching/throbbing in the face. Having intermittent hematuria, no clots. No dysuria, urgency. Continues to deny SI/HI. Electrolytes improving, K 3.2, Mg 2.2, Ca 7.9, phos 4.4 Review of Systems Review of Systems: Yes all other systems are reviewed and are negative Physical Exam Vital Signs: Vital Signs: Last Vital Signs Temp 98.4 F 03/08/24 04:00 Pulse 68 03/08/24 04:00 Resp 20 03/08/24 04:00 BP 132/83 03/08/24 04:00 Pulse Ox 99 03/08/24 04:00 O2 Del Method Room Air 03/08/24 04:00 BMI result Body Mass Index 31.7 Constitutional - Awake and Alert, No apparent distress Eyes - PERRLA, EOMI Cardiovascular - S1S2, RRR, No edema Respiratory - Normal lung expansion, Normal respiratory effort, No respiratory distress, CTA bilaterally Gastrointestinal - NT / ND; +BS; No rebound or guarding Extremities - no calf tenderness bilaterally, no swelling Skin - Warm/Dry Neurological - Alert & oriented x3, -Chvostek sign Psychological - Appropriate affect Objective Data Active Medications Acetaminophen (Acetaminophen 325 Mg Tablet) 650 mg PO Q6H PRN PRN Reason: Pain, Mild (Pain Scale 1-3), fever or headache Last Admin: 03/07/24 01:08 Dose: 650 mg Documented By: NICO Baclofen (Baclofen 10 Mg Tablet) 5 mg PO BID PRN PRN Reason: Muscle Spasm Calcium Carbonate (Calcium Carbonate 750 Mg Tab.Chew) 750 mg PO Q4H PRN PRN Reason: Heartburn Calcium Carbonate/Cholecalciferol (Calcium + Vitamin D 250 Mg Tablet) 500 mg PO BIDWM [facility] Last Admin: 03/07/24 17:37 Dose: 500 mg Documented By: STONE Cyanocobalamin (Cyanocobalamin (Vitamin B-12) 1,000 Mcg Tablet) 1,000 mcg PO DAILY [facility] Last Admin: 03/07/24 08:44 Dose: 1,000 mcg Documented By: STONE Docusate Sodium (Docusate Sodium 100 Mg Capsule) 100 mg PO BID PRN PRN Reason: Constipation Ferrous Sulfate (Ferrous Sulfate 324 Mg Tablet.) 324 mg PO DAILY [facility] Last Admin: 03/07/24 08:46 Dose: 324 mg Documented By: STONE Folic Acid (Folic Acid 1 Mg Tablet) 1 mg PO DAILY [facility] Last Admin: 03/07/24 08:44 Dose: 1 mg Documented By: STONE Ceftriaxone Sodium 1 gm/ (Sodium Chloride) 50 mls @ 100 mls/hr IV Q24H [facility] Last Admin: 03/07/24 16:03 Dose: 100 mls/hr Documented By: STONE Lactated Ringer's (Lr) 1,000 mls @ 80 mls/hr IVCONT .[id number] [facility] Last Admin: 03/08/24 03:35 Dose: 80 mls/hr Documented By: CASSIE Magnesium Hydroxide (Milk Of Magnesia 30 Ml Oral.Susp) 30 ml PO DAILY PRN PRN Reason: Constipation Magnesium Oxide (Magnesium Oxide 400 Mg Tablet) 800 mg PO TID [facility] Last Admin: 03/07/24 21:58 Dose: 800 mg Documented By: RUTH Melatonin (Melatonin 3 Mg Tablet) 6 mg PO BEDTIME PRN PRN Reason: Insomnia Potassium Chloride (Potassium Chloride Packet 20 Meq Packet) 40 meq PO DAILY [facility] Rivaroxaban (Rivaroxaban 20 Mg Tablet) 20 mg PO DAILY@1700 [facility] Last Admin: 03/07/24 17:37 Dose: 20 mg Documented By: STONE Sodium Chloride (0.9 % Sodium Chloride Flush 3 Ml Syringe) 3 ml IVFLUSH QSHIFT [facility] Last Admin: 03/08/24 00:00 Dose: 3 ml Documented By: CASSIE Labs 03/06/24 14:25 03/08/24 05:47 Labs: Laboratory Results - last 24 hr 03/07/24 03/07/24 03/07/24 04:16 10:39 10:52 Anion Gap 12 Estim Creat Clear Calc 192.9 Estimated GFR > 60 Random Glucose 93 Calcium 6.9 L D Phosphorus Magnesium 1.7 Total Creatine Kinase 301 H Ur Random Phosphorus 17.2 Ur Random Uric Acid 13.2 03/08/24 05:47 Anion Gap 10 L Estim Creat Clear Calc 209.8 Estimated GFR > 60 Random Glucose 84 Calcium 7.9 L D Phosphorus 4.4 Magnesium 2.2 Total Creatine Kinase Ur Random Phosphorus Ur Random Uric Acid Microbiology Microbiology Results: Microbiology 03/06/24 16:53 Blood Culture - Preliminary Blood - Venous No growth after 24 hours. 03/06/24 17:07 Blood Culture - Preliminary Blood - Venous No growth after 24 hours. 03/06/24 Unknown Urine Culture - Preliminary Urine clean catch - Clean Catch Midstream Culture in progress. 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 No GI losses, reports balanced diet. Hx of same, discontinued lyte replacement several weeks ago -renal fx wnl. No etoh abuse. -Per neprho- ?fanconi syndrome -Vit D 18.8. PTH 164.2. Ca improved to 7.9. Add calcium/vitamin-D p.o. -K improved to 3.2. Continue 40meq PO KCL daily -Mag improved to 2.2. Continue PO max oxide 800mg TID -has hx small bowel resection. ?degree of malabsorption. Consider GI consult vs outpt follow up -continue tele monitoring -follow lytes closely #Acute UTI -no leukocytosis, no sepsis -IV ceftriaxone (initiated 03/06) -follow cultures #Acute hematuria -likely renal in origin. Consider urology consult if needed -no clots. continue xarelto #Acute transaminitis -hepatitis panel negative, US shows fatty liver -trending down # Guillain-Portland syndrome -on IVIG monthly x5 days -wheelchair-bound at baseline # SHAVON -noncompliant with CPAP, 2 L supplemental O2 at bedtime #h/o pe/dvt -continue xarelto dvt prophylaxis- xarelto full code Patient requires ongoing inpt stay for electrolyte repletion with close monitoring, cardiac monitoring, and expert consultation Quality Stroke Does the patient have a stroke diagnosis?: No VTE Prior VTE?: Yes VTE Risk Level:: Medical - moderate - high VTE Device Contraindication: Treatment Not Indicated VTE Drug Contraindication: N/A - Med Ordered
[2024-03-08] MEDS: Potassium Chloride Packet 20 MEQ PACKET 40 MEQ PO (08:05)
[2024-03-08] MEDS: Magnesium Oxide 400 MG TABLET 800 MG PO ×3 (08:05→20:20)
[2024-03-08] MEDS: Folic Acid 1 MG TABLET PO (08:06)
[2024-03-08] MEDS: Cyanocobalamin (Vitamin B-12) 1,000 MCG TABLET 1000 MCG PO (08:06)
[2024-03-08] MEDS: Ferrous Sulfate 324 MG TABLET.DR PO (08:06)
[2024-03-08] MEDS: Calcium + Vitamin D 250 MG TABLET 500 MG PO ×2 (08:07→16:08)
--- NOTE | 2024-03-08 08:29 | MHC.CM.PN ---
CM met with Patient at bedside.Patient lives in a house with his Significant Other/RESEARCH PHYSIOLOGIST/HCP/Mercedes and he is w/c bound at baseline. Patient is active with [facility] and has a [facility]/RESEARCH PHYSIOLOGIST 38 hours/week. Patient states that he does not use home O2 nor CPAP. Home/resume said services is the goal and CM has initiated and will follow for dc planning. PCP is Dr. Ramiro Stewart and Patient will require BLS for transport to home.It is documented that Patient receives monthly IVIG.
--- NOTE | 2024-03-08 09:02 | P.PNNP_ITS ---
Subjective Subjective Date of Service: 03/08/24 Interval history: Pt is a 54 y/o male with a PMH of DCT/PE (xarelto), Guillain-Center Syndrome reports in 2003 (on monthly IVIG), chronically wheelchair bount, SHAVON (req nocturnal O2 not on CPAP). had admission in September 2023 for severe electrolyte imbalances, had surgery for small bowel obstruction prior and diarrhea thought to precipitate imbalance. Pt reports he has been taking oral electrolyte replacement since, until a few weeks ago, states he ran out of some and his PCP discontinued potassium replacement recently. severe cramping, facial twitching/throbbing, came into the hospital on 03/06 on 03/06, potassium 2.0 (today 3.2), Calcium 5.9 (today 7.9), magnesium <0.6 (today 2.2); Creatinine and GFR unremarkable, some mild protein and large blood in urine, being treated for UTI potassium, calcium and magnesium replaced Of note CT abd/pelvis in September- kidneys unremarkable pt alert and conversant at bedside states muscle cramping/twitching has resolved he denies regular NSAID use or other OTC medications denies regular alcohol use former smoker denies ilicit drug use denies known exposure to heavy metals/toxins denies other medication use outside of regular prescriptions and monthly IVIG infusions states prior to September he did not have any electrolyte problems that he knew of denies known personal or family history of kidney disease or urologic problems He denies chest pain, shortness of breath He reports natalia blood in urine since hospitalization, none previously, denies other urinary symptoms- no pain, diff emptying bladder, flank pain, urgency/frequency 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 Physical Exam 2 Vital Signs: Vital Signs: Last Vital Signs Temp 98.1 F 03/08/24 07:19 Pulse 69 03/08/24 07:19 Resp 20 03/08/24 07:19 BP 151/88 H 03/08/24 07:19 Pulse Ox 100 03/08/24 07:19 O2 Del Method Room Air 03/08/24 07:19 BMI result Body Mass Index 31.7 Const: General: comfortable, no acute distress, alert and awake O rientation/consciousness: patient oriented x3 Neck: Neck: Yes no JVD Resp: Effort & Inspection: normal respiratory effort Auscultation: clear to auscultation bilaterally Cardio: Jugular venous distension: no JVD Rate: regular rate Rhythm: r egular rhythm Heart sounds: S1 normal heart sound present and S2 normal heart sound present GI: Palpation (GI): Soft to palpation and nontender : General: Yes no CVA tenderness Back/Spine/Pelvis: Back: no CVA tenderness Skin: Lesions: no lesions Rashes: no rashes Neuro: General: patient oriented x3 Objective Data Labs 03/06/24 14:25 03/08/24 05:47 Labs: Laboratory Results - last 24 hr 03/07/24 03/07/24 03/08/24 10:39 10:52 05:47 Sodium 142 Potassium 3.2 L Chloride 106 Carbon Dioxide 29 Anion Gap 10 L BUN 8 L Creatinine 0.57 Estim Creat Clear Calc 209.8 Estimated GFR > 60 Random Glucose 84 Calcium 7.9 L D Phosphorus 4.4 Magnesium 2.2 Total Creatine Kinase 301 H 264 H Ur Random Phosphorus 17.2 Ur Random Uric Acid 13.2 Microbiology Microbiology Results: Microbiology 03/06/24 16:53 Blood - Venous Blood Culture - Preliminary No growth after 24 hours. 03/06/24 17:07 Blood - Venous Blood Culture - Preliminary No growth after 24 hours. 03/06/24 Unknown Urine clean catch - Clean Catch Midstream Urine Culture - Preliminary Culture in progress. Procedures Date of Service Date of Service: 03/08/24 Assessment & Plan Assessment and plan (1) Hypocalcemia: Status: Acute (2) Hypomagnesemia: Status: Acute (3) Hypokalemia: Status: Acute Plan Multiple electrolyte imbalances, including hypocalcemia, hypomagnesemia, hypokalemia. Likely related to proximal tubular wasting of unclear etiology electrolytes are improving with oral replacement urine phosphorous, urine uric acid, and serum phosphorous levels within normal limits will check urine protein and repeat UA- ongoing presence of protein and hematuria increases suspicion for glomerular issue; if proteinuria has resolved with ongoing hematuria, would recommend a urology consultation continue to monitor electrolytes and replace as needed. Should follow up with nephrology outpatient once his electrolytes have stabilized Discussed with Dr Galvan Time Spent With Patient Time: Total time managing care of this patient today ____ minutes. Progress Note: Quality Stroke Does the patient have a stroke diagnosis?: No
[2024-03-08 14:34] LABS: Appearance Urine Clear; Color Urine Yellow; Glucose Urine UA Negative (Negative); Leukocyte Esterase Urine Negative (Negative); Nitrite Urine Negative (Negative); UMIC TRIGGER UA YES; Urine Blood Large (3+) (Negative); Urine Ketones Negative (Negative); Urine Protein Negative (Neg-Trace)
[2024-03-08 14:58] LABS: Total Protein Urine Random < 7 mg/dL (<12)
[2024-03-08 15:25] LABS: Bacteria Urine None Seen (None Seen); Hyaline Casts Urine 0-2 /LPF (0-2); RBC Urine >20 /HPF (0-2); Squamous Epithelial Cell Urine 0-2 /HPF (0-2); WBC Urine 0-5 /HPF (0-5)
[2024-03-08] MEDS: cefTRIAXone sodium 1 GM in 0.9 % Sodium Chloride 50 ML IV (16:02)
[2024-03-08] MEDS: 0.9 % Sodium Chloride Flush 3 ML SYRINGE IVFLUSH ×2 (16:04)
[2024-03-08] MEDS: Rivaroxaban 20 MG TABLET PO (16:08)
[2024-03-09] VITALS (7 sets, daily range): BP systolic 126–158; BP diastolic 8–86; PULSE 56–94; RESP 18–20; TEMP 36.2–37.3; O2SAT 96–100
[2024-03-09] MEDS: Acetaminophen 325 MG TABLET 650 MG PO ×2 (00:45→08:00)
[2024-03-09 06:21] LABS: Anion Gap 9 (12-20); Blood Urea Nitrogen 10 mg/dL (9-16); Calcium 8.3 mg/dL (8.4-10.2); Carbon Dioxide 27 mmol/L (22-29); Chloride 106 mmol/L (96-108); Creatinine Clr Calc Pharmacy 192.9; Estimated Glomerular Filt Rate > 60; Glucose Random 88 mg/dL (60-115); Potassium 2.8 mmol/L (3.3-5.1); Sodium 139 mmol/L (135-145)
[2024-03-09] MEDS: Calcium + Vitamin D 250 MG TABLET 500 MG PO ×2 (07:58→18:05)
[2024-03-09] MEDS: Cyanocobalamin (Vitamin B-12) 1,000 MCG TABLET 1000 MCG PO (07:58)
[2024-03-09] MEDS: Magnesium Oxide 400 MG TABLET 800 MG PO ×3 (07:58→20:11)
[2024-03-09] MEDS: Potassium Chloride Packet 20 MEQ PACKET 40 MEQ PO (07:58)
[2024-03-09] MEDS: Ferrous Sulfate 324 MG TABLET.DR PO (07:58)
[2024-03-09] MEDS: Folic Acid 1 MG TABLET PO (07:59)
[2024-03-09] MEDS: 0.9 % Sodium Chloride Flush 3 ML SYRINGE IVFLUSH ×3 (08:19→20:13)
[2024-03-09] MEDS: Potassium Chloride/H20 10 MEQ/100 ML PIGGYBACK 100 MEQ IV (08:21)
--- NOTE | 2024-03-09 09:32 | PM.PNNEP ---
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 no known personal or family history of kidney or urologic problems. had admission in September 2023 for severe electrolyte imbalances, had surgery for small bowel obstruction prior and diarrhea thought to precipitate imbalance. Pt reports he has been taking oral electrolyte replacement since, until a few weeks ago, states he ran out of some and his PCP discontinued potassium replacement recently. severe cramping, facial twitching/throbbing, came into the hospital on 03/06 on 03/06, potassium 2.0, Calcium 5.9, magnesium <0.6; Creatinine and GFR unremarkable, some mild protein and large blood in urine on admission Of note CT abd/pelvis in September- kidneys unremarkable potassium, calcium and magnesium replaced potassium had been improving with replacement, but dropped to 2.9 this a.m. despite replacement and lack of GI loss over last 24 hours UA collected 03/08 shows continued hematuria, urine protein now negative pt continues to put out natalia red blood in his urine intermittently- states sometimes clear yellow, sometimes (tends to be mornings) has natalia red blood in urine toward the end of his stream. 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 Physical Exam Vital Signs: Vital Signs: Last Vital Signs Temp 97.5 F 03/09/24 07:06 Pulse 56 03/09/24 07:06 Resp 18 03/09/24 07:06 BP 139/86 03/09/24 07:06 Pulse Ox 98 03/09/24 07:06 O2 Del Method Room Air 03/09/24 07:06 BMI result Body Mass Index 31.7 Const: General: comfortable, no acute distress, alert and awake Orientation/consciousness: patient oriented x3 Neck: Neck: Yes no JVD Resp: Effort & Inspection: normal respiratory effort Auscultation: clear to auscultation bilaterally Cardio: Jugular venous distension: no JVD Rate: regular rate Rhythm: regular rhythm Heart sounds: S1 normal heart sound present and S2 normal heart sound present GI: Palpation (GI): Soft to palpation and nontender : General: Yes no CVA tenderness Back/Spine/Pelvis: Back: no CVA tenderness Skin: Lesions: no lesions Rashes: no rashes Neuro: General: patient oriented x3 Objective Data Labs 03/09/24 11:34 03/09/24 05:50 Labs: Laboratory Results - last 24 hr 03/08/24 03/09/24 14:25 05:50 Sodium 139 Potassium 2.8 L* Chloride 106 Carbon Dioxide 27 Anion Gap 9 L BUN 10 Creatinine 0.62 Estim Creat Clear Calc 192.9 Estimated GFR > 60 Random Glucose 88 Calcium 8.3 L Magnesium 2.0 Urine Color Yellow Urine Appearance Clear Urine pH 8.0 Ur Specific [place] 1.010 Urine Protein Negative Urine Glucose (UA) Negative Urine Ketones Negative Urine Blood Large (3+) H Urine Nitrite Negative Ur Leukocyte Esterase Negative Urine RBC >20 H Urine WBC 0-5 Ur Squamous Epith Cells 0-2 Urine Bacteria None Seen Hyaline Casts 0-2 U Random Total Protein < 7 Microbiology Microbiology Results: Microbiology 03/06/24 16:53 Blood - Venous Blood Culture - Preliminary No growth after 48 hours. 03/06/24 17:07 Blood - Venous Blood Culture - Preliminary No growth after 48 hours. 03/06/24 Unknown Urine clean catch - Clean Catch Midstream Urine Culture - Final Procedures Date of Service Date of Service: 03/09/24 Assessment & Plan Assessment and plan (1) Hypocalcemia: Status: Acute (2) Hypomagnesemia: Status: Acute (3) Hypokalemia: Status: Acute (4) Hematuria: Status: Acute Plan Multiple electrolyte imbalances, including hypocalcemia, hypomagnesemia, hypokalemia. Likely related to tubular wasting of unclear etiology urine phosphorous, urine uric acid, and serum phosphorous levels within normal limits; urine anion gap is positive- renal tubular acidosis on differential IgA nephropathy, Bartters and Gitelman's syndrome also on differential will check serum aldosterone, renin and serum immunofixation Hematuria proteinuria has resolved; recommend urology consult to rule out urologic cause of gross hematuria continue to monitor electrolytes and replace as needed. Discussed with Dr Gaytan Time Spent With Patient Time: Total time managing care of this patient today ____ minutes. Progress Note: Quality Stroke Does the patient have a stroke diagnosis?: No
--- NOTE | 2024-03-09 11:54 | P.PNIM_ITS ---
Subjective Subjective Date of Service: 03/09/24 Interval History: Seen and examined this morning Follow-up for hypokalemia Potassium 2.8 this morning reporting mild hematuria at after urination, dysuria Cramping significantly improved since admission No vomiting, no diarrhea. Good p.o. intake Review of Systems Review of Systems: Yes all other systems are reviewed and are negative Constitutional Constitutional: Denies chills and Denies fever(s) ENT Ears, Nose, Mouth, and Throat: Denies dizziness Cardiovascular Cardiovascular: Denies chest pain and Denies palpitations Gastrointestinal Gastrointestinal: Denies abdominal pain, Denies diarrhea, Denies nausea and Denies vomiting Neurologic Neurologic: Denies dizziness Endocrine Endocrine: Denies palpitations Physical Exam 2 Vital Signs: Vital Signs: Last Vital Signs Temp 97.4 F 03/09/24 11:43 Pulse 65 03/09/24 11:43 Resp 18 03/09/24 11:43 BP 133/8 L 03/09/24 11:43 Pulse Ox 96 03/09/24 11:43 O2 Del Method Room Air 03/09/24 11:43 BMI result Body Mass Index 31.7 Const: General: cooperative, comfortable, no acute distress, alert and awake Nutritional Appearance: overweight Orientation/consciousness: patient oriented x3 Resp: Effort & Inspection: normal respiratory effort, able to speak in complete sentences, no respiratory distress and no use of accessory muscles Cardio: Rate: regular rate GI: Inspection: No distended Palpation (GI): Soft to palpation and nontender Neuro: General: patient oriented x3 Extrem: General: Yes no pedal edema Objective Data Active Medications Acetaminophen (Acetaminophen 325 Mg Tablet) 650 mg PO Q6H PRN PRN Reason: Pain, Mild (Pain Scale 1-3), fever or headache Last Admin: 03/09/24 08:00 Dose: 650 mg Documented By: CORNEL Baclofen (Baclofen 10 Mg Tablet) 5 mg PO BID PRN PRN Reason: Muscle Spasm Calcium Carbonate (Calcium Carbonate 750 Mg Tab.Chew) 750 mg PO Q4H PRN PRN Reason: Heartburn Calcium Carbonate/Cholecalciferol (Calcium + Vitamin D 250 Mg Tablet) [facility] [place] Last Admin: 03/09/24 07:58 Dose: 500 mg Documented By: CORNEL Cyanocobalamin (Cyanocobalamin (Vitamin B-12) 1,000 Mcg Tablet) 1,000 mcg PO DAILY ON LICENSE OF [facility] Last Admin: 03/09/24 07:58 Dose: 1,000 mcg Documented By: CORNEL Docusate Sodium (Docusate Sodium 100 Mg Capsule) 100 mg PO BID PRN PRN Reason: Constipation Ferrous Sulfate (Ferrous Sulfate 324 Mg Tablet.) 324 mg PO DAILY ON LICENSE OF [facility] Last Admin: 03/09/24 07:58 Dose: 324 mg Documented By: CORNEL Folic Acid (Folic Acid 1 Mg Tablet) 1 mg PO DAILY ON LICENSE OF [facility] Last Admin: 03/09/24 07:59 Dose: 1 mg Documented By: CORNEL Ceftriaxone Sodium 1 gm/ (Sodium Chloride) 50 mls @ 100 mls/hr IV Q24H ON LICENSE OF [facility] Last Infusion: 03/08/24 17:03 Dose: Infused Documented By: RUBA Magnesium Hydroxide (Milk Of Magnesia 30 Ml Oral.Susp) 30 ml PO DAILY PRN PRN Reason: Constipation Magnesium Oxide (Magnesium Oxide 400 Mg Tablet) 800 mg PO TID ON LICENSE OF [facility] Last Admin: 03/09/24 07:58 Dose: 800 mg Documented By: CORNEL Melatonin (Melatonin 3 Mg Tablet) 6 mg PO BEDTIME PRN PRN Reason: Insomnia Potassium Chloride (Potassium Chloride Packet 20 Meq Packet) 40 meq PO ONCE ON LICENSE OF [facility] Rivaroxaban (Rivaroxaban 20 Mg Tablet) 20 mg PO DAILY@1700 ON LICENSE OF [facility] Last Admin: 03/08/24 16:08 Dose: 20 mg Documented By: RUBA Sodium Chloride (0.9 % Sodium Chloride Flush 3 Ml Syringe) 3 ml IVFLUSH QSHIFT ON LICENSE OF [facility] Last Admin: 03/09/24 08:19 Dose: 3 ml Documented By: CORNEL Labs 03/06/24 14:25 03/09/24 05:50 Labs: Laboratory Results - last 24 hr 03/08/24 03/09/24 14:25 05:50 Anion Gap 9 L Estim Creat Clear Calc 192.9 Estimated GFR > 60 Random Glucose 88 Calcium 8.3 L Magnesium 2.0 Urine Color Yellow Urine Appearance Clear Urine pH 8.0 Ur Specific [place] 1.010 Urine Protein Negative Urine Glucose (UA) Negative Urine Ketones Negative Urine Blood Large (3+) H Urine Nitrite Negative Ur Leukocyte Esterase Negative Urine RBC >20 H Urine WBC 0-5 Ur Squamous Epith Cells 0-2 Urine Bacteria None Seen Hyaline Casts 0-2 U Random Total Protein < 7 Microbiology Microbiology Results: Microbiology 03/06/24 16:53 Blood Culture - Preliminary Blood - Venous No growth after 48 hours. 03/06/24 17:07 Blood Culture - Preliminary Blood - Venous No growth after 48 hours. 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 Persistent hypokalemia Workup in progress No GI losses, reports balanced diet. Hx of same, discontinued lyte replacement several weeks ago -renal fx wnl. No etoh abuse. Added calcium/vitamin-D p.o. Increased oral potassium to 40 b.i.d. -Mag improved to 2.2. Continue PO max oxide 800mg TID -has hx small bowel resection. ?degree of malabsorption. Consider GI consult vs outpt follow up -continue tele monitoring -follow lytes closely #Acute UTI -no leukocytosis, no sepsis -IV ceftriaxone (initiated 03/06) Urine culture suggestive of urogenital contamination however giving symptoms we will complete full course of antibiotics #Acute hematuria Proteinuria resolved, we will consult Urology -no clots. 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
[2024-03-09 12:11] LABS: Hematocrit 37.6 % (42.0-52.0); Hemoglobin 11.8 g/dl (14.0-18.0); Mean Corpuscular HGB Conc 31.4 g/dl (31.0-36.0); Mean Corpuscular Hemoglobin 26.9 pg (27.0-33.0); Mean Corpuscular Volume 85.8 fL (80.0-98.0); Mean Platelet Volume 10.1 fL (9.4-12.4); Platelet Count 449 X10*3/uL (160-400); Red Blood Count 4.38 X10*6/uL (4.60-5.80); Red Cell Distribution Width 14.3 % (11.0-16.0); White Blood Count 4.3 X10*3/uL (4.8-10.8)
--- NOTE | 2024-03-09 12:56 | PM.UROCN ---
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 He is wheelchair-bound at baseline due to Guillain-[place] syndrome. He does also endorse dysuria and a small amount of hematuria noted today. No fevers, chills, abdominal pain. Urology consulted for hematuria. Review of Systems Review of Systems: 10 point ROS negative other than stated on HPI [facility] Past Medical History Medical History (Updated 03/19/24 @ 00:01 by Shakeel العراقي) Abdominal pain Morbid obesity Guillain-[place] syndrome Femur fracture, right DVT (deep venous thrombosis) Pulmonary embolism Surgical History Surgical History (Updated 03/21/24 @ 13:59 by KENRICK Allen) History of abdominal surgery (~10/2023) Status post small bowel resection H/O hand surgery Social History Social History Household Members: Significant Other Housing: House Do you presently have visiting nurse or other home services: No Alcohol intake: current Alcohol intake frequency: a few times a week Patient Tobacco Use Status: Former Tobacco user Tobacco use type: Cigarette Substance Use Type: Marijuana Advance Directives Date on File: 08/06/23 service: No Meds Allergies Allergy/AdvReac Type Severity Reaction Status Date / Time No Known Allergies Allergy Verified 03/21/24 13:59 Active Medications: Current Medications Acetaminophen (Acetaminophen 325 Mg Tablet) 650 mg PO Q6H PRN PRN Reason: Pain, Mild (Pain Scale 1-3), fever or headache Last Admin: 03/09/24 08:00 Dose: 650 mg Baclofen (Baclofen 10 Mg Tablet) 5 mg PO BID PRN PRN Reason: Muscle Spasm Calcium Carbonate (Calcium Carbonate 750 Mg Tab.Chew) 750 mg PO Q4H PRN PRN Reason: Heartburn Calcium Carbonate/Cholecalciferol (Calcium + Vitamin D 250 Mg Tablet) 500 mg PO BIDWM [facility] Last Admin: 03/09/24 07:58 Dose: 500 mg Cyanocobalamin (Cyanocobalamin (Vitamin B-12) 1,000 Mcg Tablet) 1,000 mcg PO DAILY [facility] Last Admin: 03/09/24 07:58 Dose: 1,000 mcg Docusate Sodium (Docusate Sodium 100 Mg Capsule) 100 mg PO BID PRN PRN Reason: Constipation Ferrous Sulfate (Ferrous Sulfate 324 Mg Tablet.Dr) 324 mg PO DAILY [facility] Last Admin: 03/09/24 07:58 Dose: 324 mg Folic Acid (Folic Acid 1 Mg Tablet) 1 mg PO DAILY [facility] Last Admin: 03/09/24 07:59 Dose: 1 mg Ceftriaxone Sodium 1 gm/ (Sodium Chloride) 50 mls @ 100 mls/hr IV Q24H [facility] Last Infusion: 03/08/24 17:03 Dose: Infused Magnesium Hydroxide (Milk Of Magnesia 30 Ml Oral.Susp) 30 ml PO DAILY PRN PRN Reason: Constipation Magnesium Oxide (Magnesium Oxide 400 Mg Tablet) 800 mg PO TID [facility] Last Admin: 03/09/24 07:58 Dose: 800 mg Melatonin (Melatonin 3 Mg Tablet) 6 mg PO BEDTIME PRN PRN Reason: Insomnia Potassium Chloride (Potassium Chloride Packet 20 Meq Packet) 40 meq PO ONCE [facility] Potassium Chloride (Potassium Chloride Er 20 Meq Tab.Er.Prt) 40 meq PO BID [facility] Rivaroxaban (Rivaroxaban 20 Mg Tablet) 20 mg PO DAILY@1700 [facility] Last Admin: 03/08/24 16:08 Dose: 20 mg Sodium Chloride (0.9 % Sodium Chloride Flush 3 Ml Syringe) 3 ml IVFLUSH QSHIFT [facility] Last Admin: 03/09/24 08:19 Dose: 3 ml Home Medications ?Medication ?Instructions ?Recorded ?Confirmed ?Last Taken ?Type rivaroxaban 20 mg tablet (Xarelto) 20 mg PO DAILY@1700 10/18/23 03/06/24 03/05/24 History cholecalciferol (vitamin D3) 25 25 mcg PO DAILY 10/19/23 03/06/24 03/06/24 History mcg (1,000 unit) tablet (Vitamin D3) cyanocobalamin (vitamin B-12) 1,000 mcg PO DAILY 03/06/24 03/06/24 03/06/24 History 1,000 mcg tablet (Vitamin B-12) docusate sodium 100 mg capsule 100 mg PO BID PRN Constipation 03/06/24 03/06/24 Unknown History ferrous sulfate 325 mg (65 mg 325 mg PO DAILY 03/06/24 03/06/24 03/06/24 History iron) tablet folic acid 1 mg tablet 1 mg PO DAILY 03/06/24 03/06/24 03/06/24 History magnesium oxide 400 mg (241.3 mg 800 mg PO BID 03/21/24 03/21/24 Unknown History magnesium) tablet Physical Exam Vital Signs: Vital Signs: Last Vital Signs Temp 97.4 F 03/09/24 11:43 Pulse 65 03/09/24 11:43 Resp 18 03/09/24 11:43 BP 133/8 L 03/09/24 11:43 Pulse Ox 96 03/09/24 11:43 O2 Del Method Room Air 03/09/24 11:43 BMI result Body Mass Index 31.7 Const: General: no acute distress and well developed Orientation/consciousness: patient oriented x3 HEENT: Head: Yes normocephalic and Yes atraumatic Eyes: Conjunctivae: conjunctivae normal Neck: Neck: Yes normal visual inspection Chest: Chest palpation & inspection: normal inspection of the chest Resp: Effort & Inspection: normal respiratory effort Cardio: Rate: regular rate GI: Inspection: Yes normal to inspection Palpation (GI): Soft to palpation Neuro: General: patient oriented x3 Psych: Appearance: grossly normal Affect: normal affect Results Labs 03/10/24 06:10 03/10/24 10:56 Labs: Abnormal lab results 03/08/24 03/09/24 03/09/24 Range/Units 14:25 05:50 11:34 WBC 4.3 L (4.8-10.8) X10*3/uL RBC 4.38 L (4.60-5.80) X10*6/uL Hgb 11.8 L (14.0-18.0) g/dl Hct 37.6 L (42.0-52.0) % MCH 26.9 L (27.0-33.0) pg Plt Count 449 H (160-400) X10*3/uL Potassium 2.8 L* (3.3-5.1) mmol/L Anion Gap 9 L (12-20) Calcium 8.3 L (8.4-10.2) mg/dL Urine Blood Large (3+) H (Negative) Urine RBC >20 H (0-2) /HPF Short CBC 03/09/24 Range/Units 11:34 WBC 4.3 L (4.8-10.8) X10*3/uL Hgb 11.8 L (14.0-18.0) g/dl Hct 37.6 L (42.0-52.0) % Plt Count 449 H (160-400) X10*3/uL BMP 03/09/24 05:50 Sodium 139 Potassium 2.8 L* Chloride 106 Carbon Dioxide 27 BUN 10 Creatinine 0.62 Calcium 8.3 L Urine 03/06/24 03/08/24 Range/Units 15:33 14:25 Urine Color Dark Yellow Yellow Urine Appearance Cloudy Clear Urine pH 6.0 8.0 (5.0-9.0) Ur Specific [place] 1.020 1.010 (1.005-1.025) Urine Protein 30 (1+) H Negative (Neg-Trace) mg/dL Urine Glucose (UA) Negative Negative (Negative) mg/dL Collected: 03/06/24-UNK Status: COMP Req#: [id number] Received: 03/06/24 Source: [facility] Sp Desc: Clean Cat Subm Dr: Oumou Guerrero DO Ordered: Urine Culture Procedure Result Verified Urine Culture Final 03/08/24 Report Result > 100,000 cfu/ml Mixed bacterial irvin characteristic of urogenital contamination. Imaging Abdomen CT scan report/results: report reviewed and image reviewed CT scan - pelvis: report reviewed and image reviewed US - kidney/bladder: report reviewed and image reviewed Additional studies: Date of Service: 03/06/24 US ABDOMEN LIMITED CLINICAL INFORMATION: Elevated LFTs. COMPARISON: CT abdomen pelvis dated October 18, 2023. TECHNIQUE: Real-time imaging of the right upper quadrant abdominal viscera. FINDINGS: PANCREAS: The pancreas is not seen. LIVER: The liver is only partially visualized. It appears enlarged and steatotic. There is no intrahepatic biliary duct dilatation seen. GALLBLADDER: The gallbladder is physiologically distended. It contains multiple calculi. There is no gallbladder wall thickening or pericholecystic fluid. COMMON BILE DUCT: Normal in caliber measuring 0.3 cm in diameter. RIGHT KIDNEY: Normal. No hydronephrosis. No renal calculi or focal parenchymal lesions. The kidney measures 11.2 cm in maximum dimension. FREE FLUID: None. IMPRESSION: Cholelithiasis. No ultrasound evidence of acute cholecystitis. The liver is enlarged and steatotic. Date of Service: 10/18/23 CT ABDOMEN AND PELVIS WITHOUT CONTRAST CLINICAL INFORMATION: Abdominal distention. Urinary tract infection. COMPARISON: 09/06/2023 TECHNIQUE: Multidetector volumetric imaging was performed from the superior aspect of the liver through the pubic symphysis. Sagittal and coronal reformatted images were obtained on the technologist's workstation. This CT examination was performed using dose optimization techniques as appropriate, variously including the following: *Automated exposure control *Adjustment of mA and/or kV according to patient size (this includes techniques or standardized protocols for targeted exams where dose is matched to indication/reason for exam; i.e. extremities or head) *Use of iterative reconstruction technique DLP: 1654 mGy-cm FINDINGS: LUNG BASES: There is scarring or minimal subsegmental atelectasis at the right base. LIVER, GALLBLADDER, AND BILIARY TREE: The liver is of significant diminished attenuation. No focal liver lesions are seen. There is no intrahepatic biliary duct dilatation. The gallbladder is unremarkable with no evidence of radiopaque gallstones, gallbladder wall thickening, or obvious pericholecystic inflammatory changes. PANCREAS: Atrophic for patient age. SPLEEN: Unremarkable. ADRENAL GLANDS: Unremarkable. KIDNEYS AND URETERS: The kidneys are normal in size, shape, and attenuation. No hydronephrosis, hydroureter, or calculi seen. No perinephric stranding. BLADDER: Unremarkable. GASTROINTESTINAL TRACT: There are distended/dilated small bowel loops with air-fluid levels most prominent towards the distal small bowel near the enteroenteric anastomosis with small bowel measuring up to 4.6 cm. The appendix is not confidently seen as a separate structure. ABDOMINAL WALL: No significant hernia is appreciated. LYMPH NODES: Normal. VASCULAR: Unremarkable. PELVIC VISCERA: Unremarkable. IMPRESSION: 1. Dilated small bowel loops with air-fluid levels consistent with a likely partial small bowel obstruction. A similar pattern was seen previously. 2. Hepatic steatosis. 3. Atrophic pancreas. Assessment and Plan (1) Acute UTI: Status: Acute (2) Hematuria: Status: Acute Plan Patient receiving Abx. follow up out patient cystoscopy Procedures Date of Service Date of Service: 04/04/24
[2024-03-09] MEDS: cefTRIAXone sodium 1 GM in 0.9 % Sodium Chloride 50 ML IV (18:04)
[2024-03-09] MEDS: Rivaroxaban 20 MG TABLET PO (18:05)
[2024-03-10 03:12] VITALS: BP 155/85; PULSE 68; RESP 18; TEMP 36.3; O2SAT 96
[2024-03-10 06:45] LABS: Hematocrit 35.1 % (42.0-52.0); Hemoglobin 11.4 g/dl (14.0-18.0); Mean Corpuscular HGB Conc 32.5 g/dl (31.0-36.0); Mean Corpuscular Hemoglobin 27.9 pg (27.0-33.0); Mean Corpuscular Volume 85.8 fL (80.0-98.0); Mean Platelet Volume 9.8 fL (9.4-12.4); Platelet Count 450 X10*3/uL (160-400); Red Blood Count 4.09 X10*6/uL (4.60-5.80); Red Cell Distribution Width 14.3 % (11.0-16.0); White Blood Count 5.3 X10*3/uL (4.8-10.8)
[2024-03-10 06:57] LABS: Alanine Aminotransferase 66 U/L (0-40); Albumin Level 3.3 g/dL (3.5-5.0); Alkaline Phosphatase 68 U/L (39-117); Anion Gap 9 (12-20); Aspartate Amino Transferase 25 U/L (5-37); Bilirubin Total 0.4 mg/dL (0.0-1.0); Blood Urea Nitrogen 11 mg/dL (9-16); Calcium 8.8 mg/dL (8.4-10.2); Carbon Dioxide 26 mmol/L (22-29); Chloride 108 mmol/L (96-108); Creatinine Clr Calc Pharmacy 213.6; Estimated Glomerular Filt Rate > 60; Glucose Random 90 mg/dL (60-115); Sodium 140 mmol/L (135-145); Total Protein 6.5 g/dL (6.5-8.0)
[2024-03-10 07:02] VITALS: BP 119/79; PULSE 73; RESP 18; TEMP 36; O2SAT 98
[2024-03-10] MEDS: Calcium + Vitamin D 250 MG TABLET 500 MG PO ×2 (08:26→16:31)
[2024-03-10] MEDS: Cyanocobalamin (Vitamin B-12) 1,000 MCG TABLET 1000 MCG PO (08:26)
[2024-03-10] MEDS: 0.9 % Sodium Chloride Flush 3 ML SYRINGE IVFLUSH ×3 (08:26→22:44)
[2024-03-10] MEDS: Magnesium Oxide 400 MG TABLET 800 MG PO ×3 (08:26→22:39)
[2024-03-10] MEDS: Ferrous Sulfate 324 MG TABLET.DR PO (08:27)
[2024-03-10] MEDS: Folic Acid 1 MG TABLET PO (08:27)
--- NOTE | 2024-03-10 08:53 | P.PNNP_ITS ---
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 no known personal or family history of kidney or urologic problems. had admission in September 2023 for severe electrolyte imbalances, had surgery for small bowel obstruction prior and diarrhea thought to precipitate imbalance. Pt reports he has been taking oral electrolyte replacement since, until a few weeks ago, states he ran out of some and his PCP discontinued potassium replacement recently. severe cramping, facial twitching/throbbing, came into the hospital on 03/06 on 03/06, potassium 2.0, Calcium 5.9, magnesium <0.6; Creatinine and GFR unremarkable, some mild protein and large blood in urine on admission Of note CT abd/pelvis in September- kidneys unremarkable potassium, calcium and magnesium replaced patient has not had any GI loss just prior to admission nor during hospitalization yesterday potassium 2.9; today 3.0 (pt did not receive full dose of potassium yesterday, just 10mEq IV and 40mEq PO, orders for BID which are being done today) UA collected 03/08 shows continued hematuria, urine protein now negative pt continues to put out natalia red blood in his urine intermittently- states sometimes clear yellow, sometimes (tends to be mornings) has natalia red blood in urine toward the end of his stream. Reports this morning did not see natalia blood, just darker, more concentrated urine pt alert and conversant at bedside states muscle cramping/twitching has resolved he denies regular NSAID use or other OTC medications denies regular alcohol use former smoker denies ilicit drug use denies known exposure to heavy metals/toxins denies other medication use outside of regular prescriptions and monthly IVIG infusions He denies chest pain, shortness of breath He reports natalia blood in urine intermittently since hospitalization, none previously, denies other urinary symptoms- no pain, diff emptying bladder, flank pain, urgency/frequency 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 Physical Exam 2 Vital Signs: Vital Signs: Last Vital Signs Temp 96.8 F 03/10/24 07:02 Pulse 73 03/10/24 07:02 Resp 18 03/10/24 07:02 BP 119/79 03/10/24 07:02 Pulse Ox 98 03/10/24 07:02 O2 Del Method Room Air 03/10/24 07:02 BMI result Body Mass Index 31.7 Const: General: comfortable, no acute distress, alert and awake O rientation/consciousness: patient oriented x3 Neck: Neck: Yes no JVD Resp: Effort & Inspection: normal respiratory effort Auscultation: clear to auscultation bilaterally Cardio: Jugular venous distension: no JVD Rate: regular rate Rhythm: r egular rhythm Heart sounds: S1 normal heart sound present and S2 normal heart sound present GI: Palpation (GI): Soft to palpation and nontender : General: Yes no CVA tenderness Back/Spine/Pelvis: Back: no CVA tenderness Skin: Lesions: no lesions Rashes: no rashes Neuro: General: patient oriented x3 Objective Data Labs 03/10/24 06:10 03/10/24 06:10 Labs: Laboratory Results - last 24 hr 03/09/24 03/10/24 11:34 06:10 WBC 4.3 L 5.3 RBC 4.38 L 4.09 L Hgb 11.8 L 11.4 L Hct 37.6 L 35.1 L MCV 85.8 85.8 MCH 26.9 L 27.9 MCHC 31.4 32.5 RDW 14.3 14.3 Plt Count 449 H 450 H MPV 10.1 9.8 Absolute Nucleated RBC 0.000 0.000 Nucleated RBC % (auto) 0.0 0.0 Sodium 140 Potassium 3.0 L Chloride 108 Carbon Dioxide 26 Anion Gap 9 L BUN 11 Creatinine 0.56 Estim Creat Clear Calc 213.6 Estimated GFR > 60 Random Glucose 90 Calcium 8.8 D Total Bilirubin 0.4 AST 25 ALT 66 H Alkaline Phosphatase 68 Total Protein 6.5 Albumin 3.3 L Microbiology Microbiology Results: Microbiology 03/06/24 16:53 Blood - Venous Blood Culture - Preliminary No growth after 48 hours. 03/06/24 17:07 Blood - Venous Blood Culture - Preliminary No growth after 48 hours. 03/06/24 Unknown Urine clean catch - Clean Catch Midstream Urine Culture - Final Procedures Date of Service Date of Service: 03/10/24 Assessment & Plan Assessment and plan (1) Hypocalcemia: Status: Acute (2) Hypomagnesemia: Status: Acute (3) Hypokalemia: Status: Acute (4) Hematuria: Status: Acute Plan Multiple electrolyte imbalances, including hypocalcemia, hypomagnesemia, hypokalemia. Likely related to tubular wasting of unclear etiology urine phosphorous, urine uric acid, and serum phosphorous levels within normal limits; urine anion gap is positive- renal tubular acidosis on differential IgA nephropathy, Bartters and Gitelman's syndrome also on differential serum aldosterone, renin and serum immunofixation pending Hematuria proteinuria has resolved; recommend urology consult/follow up outpatient to rule out urologic cause of gross hematuria recommend discharging patient with oral 40mEq potassium BID He should follow up outpatient with nephrology in 1 week to check labs and continue workup Discussed with Dr Gaytan Time Spent With Patient Time: Total time managing care of this patient today ____ minutes. Progress Note: Quality Stroke Does the patient have a stroke diagnosis?: No
[2024-03-10 11:02] VITALS: BP 129/80; PULSE 66; RESP 18; TEMP 36.3; O2SAT 97
[2024-03-10 11:10] LABS: Potassium 3.3 mmol/L (3.3-5.1)
--- NOTE | 2024-03-10 11:21 | P.DS_ITS ---
DS: Providers Provider Date of Service: 03/10/24 <NIEVES Ramesh - Last Filed: 03/10/24 11:49> 03/11/24 <Dominique Fang NP - Last Filed: 03/11/24 08:55> Date of admission: 03/06/24 20:39 <NIEVES Ramesh - Last Filed: 03/10/24 11:49> Date of discharge: 03/10/24 <NIEVES Ramesh - Last Filed: 03/10/24 11:49> 03/11/24 <Dominique Fang NP - Last Filed: 03/11/24 08:55> Primary care physician: Ramiro Stewart MD <NIEVES Ramesh - Last Filed: 03/10/24 11:49> Consults: 03/06/24 20:47 Consult to Nephrology Routine Consulting Provider: [facility] Reason for consultation: severe lyte abnormality 03/09/24 10:10 Consult to Urology Routine Consulting Provider: [facility] Reason for consultation: hematuria Has provider been notified: No <NIEVES Ramesh - Last Filed: 03/10/24 11:49> Attending physician on discharge: Osman Otoole <NIEVES Ramesh - Last Filed: 03/10/24 11:49> Discharging clinician: Natasha Gross <NIEVES Ramesh - Last Filed: 03/10/24 11:49> DS: Diagnosis Discharge Diagnosis (1) Hypocalcemia: Status: Acute <NIEVES Ramesh - Last Filed: 03/10/24 11:49> (2) Hypomagnesemia: Status: Acute <NIEVES Ramesh - Last Filed: 03/10/24 11:49> (3) Hypokalemia: Status: Acute <NIEVES Ramesh - Last Filed: 03/10/24 11:49> (4) Hematuria: Status: Acute <NIEVES Ramesh - Last Filed: 03/10/24 11:49> DS: Summary Hospital Course Hospital Course: From H&P on the day of admission 53-year-old male with 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, on Xarelto , Guillain-[place] syndrome on monthly IVIG x5d who is chronically wheelchair-bound, and SHAVON noncompliant with CPAP on 2 L nocturnal O2 presented to ED earlier today for evaluation of throbbing and twitching of the facial muscles which started several days ago. He has history of severe electrolyte abnormality and has required admission for this in the past including hypokalemia, hypomagnesemia and hypocalcemia with admission in 09/2023. At that time, he was not eating well and was also having significant diarrhea. He was discharged on electrolyte supplements but states he discontinued these several weeks ago. However, he reports he has been eating a balanced diet and denies any GI losses including vomiting or diarrhea. In addition to the facial twitching/throbbing, he also does describe intermittent myalgias. He is wheelchair-bound at baseline due to Guillain-[place] syndrome. He does also endorse dysuria and a small amount of hematuria noted today. No fevers, chills, abdominal pain, increased urinary frequency/urgency, decreased urinary output, palpitations, lightheadedness, shortness of breath, or chest pain. He does have history of small bowel resection. Since arrival, vital signs have been stable. There is no leukocytosis. He has a mild normocytic anemia with H/H 12.2/37.3%. On arrival, renal function within normal limits, K 2.0, calcium 5.9, magnesium level undetectable. Albumin 3.4. AST 55, ALT 148. Urinalysis with 3+ blood, 2+ leukocytes, positive urinary sediment, 2+ bacteria, 1+ protein. Head CT negative for any acute intracranial abnormality. CXR negative for acute cardiopulmonary abnormality. X-ray of the left thumb ordered due to swelling which shows mild soft tissue swelling adjacent to the 1st metacarpophalangeal joint with subtle focal lucency along the ulnar surface of the distal aspect of the 1st metacarpal bone, possibly underlying osteomyelitis in the appropriate clinical context. On arrival, apparently the patient had also made vague suicidal statements but on further questioning, states he had an argument with his friend and adamantly denies any SI/HI. In the ED, given 4 g IV magnesium, 40 mEq IV potassium, 60 mEq oral potassium, 2 g calcium gluconate, and IV ceftriaxone. Following electrolyte repletion, repeat potassium 2.6, magnesium 1.6, calcium 6.5. EKG shows NSR, rate 98 with prolonged QTC of 508 without any acute ischemic changes. Reports occasional alcohol use is a former cigarette smoker and denies illicit drug use. Acute hypokalemia/hypomagnesemia/hypocalcemia Calcium, magnesium levels improved. Hypokalemia now improved with oral replacement. Workup in progress No GI losses, reports balanced diet. Hx of same, discontinued lyte replacement several weeks ago. renal fx wnl. No etoh abuse. Added calcium/vitamin-D p.o. Increased oral potassium to 40 b.i.d. Mag improved to 2.2. Continue PO max oxide 800mg TID. Nephrology following and workup in process, we will need outpatient follow-up with Nephrology in the office. Recommend repeat labs in 1 week Acute UTI -no leukocytosis, no sepsis -IV ceftriaxone (initiated 03/06) Urine culture suggestive of urogenital contamination however giving symptoms and hematuria we will complete full course of antibiotics-urology recommended 10 days of oral Levaquin Acute hematuria Proteinuria resolved, we will consult Urology-recommended to start Flomax, Proscar. Treat for underlying UTI. Can continue Xarelto. Recommend outpatient follow-up with Urology for cystoscopy. H/H has remained stable Acute transaminitis -hepatitis panel negative, US shows fatty liver -trending down <NIEVES Ramesh - Last Filed: 03/10/24 11:49> Time Attestation Discharge Coordination Time (in mins): 40 <NIEVES Ramesh - Last Filed: 03/10/24 11:49> Quality: Safe Use of Opioids Does Pt have an Active Cancer Diagnosis on the Problem List?: No <NIEVES Ramesh - Last Filed: 03/10/24 11:49> Quality: Stroke Does the patient have a stroke diagnosis?: No <NIEVES Ramesh - Last Filed: 03/10/24 11:49> Physical Exam Vital Signs: Vital Signs: Last Vital Signs Temp 97.3 F 03/10/24 11:02 Pulse 66 03/10/24 11:02 Resp 18 03/10/24 11:02 BP 129/80 03/10/24 11:02 Pulse Ox 97 03/10/24 11:02 O2 Del Method Room Air 10/11/24 11:02 BMI result Body Mass Index 31.7 <NIEVES Ramesh - Last Filed: 03/10/24 11:49> Const: General: cooperative, comfortable, no acute distress, alert and awake <NIEVES Ramesh - Last Filed: 03/10/24 11:49> Nutritional Appearance: overweight <NIEVES Ramesh - Last Filed: 03/10/24 11:49> Orientation/consciousness: patient oriented x3 <NIEVES Ramesh - Last Filed: 03/10/24 11:49> Resp: Effort & Inspection: normal respiratory effort, able to speak in complete sentences, no respiratory distress and no use of accessory muscles <NIEVES Ramesh - Last Filed: 03/10/24 11:49> Cardio: Rate: regular rate <NIEVES Ramesh - Last Filed: 03/10/24 11:49> GI: Inspection: No distended <NIEVES Ramesh - Last Filed: 03/10/24 11:49> Palpation (GI): Soft to palpation and nontender <NIEVES Ramesh - Last Filed: 03/10/24 11:49> Neuro: General: patient oriented x3 <NIEVES Ramesh - Last Filed: 03/10/24 11:49> Extrem: General: Yes no pedal edema <NIEVES Ramesh - Last Filed: 03/10/24 11:49> DS: Data Data Completed and Pending Completed studies during hospitalization [Text1]: Procedures Assistance with Respiratory Ventilation, Less than 24 Consecutive Hours, Continuous Positive Airway Pressure (08/06/23) Excision of Small Intestine, Open Approach (08/06/23) Insertion of Infusion Device into Superior Vena Cava, Percutaneous Approach (08/06/23) Introduction of Vasopressor into Peripheral Vein, Percutaneous Approach (10/18/23) Release Peritoneum, Open Approach (08/06/23) Ultrasonography of Superior Vena Cava, Guidance (08/06/23) <NIEVES Ramesh - Last Filed: 03/10/24 11:49> Labs on day of discharge: Laboratory Results - last 24 hr 1003/10/24 03/10/24 11:34 06:10 10:56 WBC 4.3 L 5.3 RBC 4.38 L 4.09 L Hgb 11.8 L 11.4 L Hct 37.6 L 35.1 L MCV 85.8 85.8 MCH 26.9 L 27.9 MCHC 31.4 32.5 RDW 14.3 14.3 Plt Count 449 H 450 H MPV 10.1 9.8 Absolute Nucleated RBC 0.000 0.000 Nucleated RBC % (auto) 0.0 0.0 Sodium 140 Potassium 3.0 L 3.3 Chloride 108 Carbon Dioxide 26 Anion Gap 9 L BUN 11 Creatinine 0.56 Estim Creat Clear Calc 213.6 Estimated GFR > 60 Random Glucose 90 Calcium 8.8 D Total Bilirubin 0.4 AST 25 ALT 66 H Alkaline Phosphatase 68 Total Protein 6.5 Albumin 3.3 L Preliminary micro results at discharge 03/06/24 16:53 Blood Culture - Preliminary Blood - Venous No growth after 48 hours. 03/06/24 17:07 Blood Culture - Preliminary Blood - Venous No growth after 48 hours. <NIEVES Ramesh - Last Filed: 03/10/24 11:49> Discharge Plan Discharge Anticipated Discharge Date/Time: 03/11/24 08:54 <NIEVES Ramesh - Last Filed: 03/10/24 11:49> Patient Disposition: Home Health Service <NIEVES Ramesh - Last Filed: 03/10/24 11:49> Discharge Diagnosis: Electrolyte abnormalities UTI Hematuria <NIEVES Ramesh - Last Filed: 03/10/24 11:49> Electrolyte abnormalities UTI Hematuria <Dominique Fang NP - Last Filed: 03/11/24 08:55> Referrals: Jennifer ALEXANDER [Outside] - 1 Week Judi Lemon MD [Physician] - 1 Week Wild Gaytan MD [Physician] - 1 Week Ramiro Stewart MD [Primary Care Provider] - 1 Week <NIEVES Ramesh - Last Filed: 03/10/24 11:49> Discharge Medications: New calcium carbonate-vitamin D3 250 mg-3.125 mcg (125 unit) Tablet 2 tab PO BIDWM 60 Days Qty: 240 0RF levofloxacin 500 mg tablet 500 mg PO Q24H 10 Days Qty: 10 0RF potassium chloride [Klor-Con M20] 20 mEq tablet,ER particles/crystals 40 meq PO BID 30 Days Qty: 120 0RF tamsulosin [Flomax] 0.4 mg capsule 0.4 mg PO DAILY 60 Days Qty: 60 0RF finasteride [Proscar] 5 mg tablet 5 mg PO DAILY 90 Days Qty: 90 0RF Continued ferrous sulfate 325 mg (65 mg iron) tablet 325 mg PO DAILY docusate sodium 100 mg capsule 100 mg PO BID PRN (Reason: Constipation) folic acid 1 mg tablet 1 mg PO DAILY baclofen 5 mg tablet 5 mg PO BID PRN (Reason: Muscle Spasm) cyanocobalamin (vitamin B-12) [Vitamin B-12] 1,000 mcg Tablet 1,000 mcg PO DAILY Xarelto 20 mg tablet 20 mg PO DAILY@1700 Rx Instructions: must administer with evening meal cholecalciferol (vitamin D3) [Vitamin D3] 25 mcg (1,000 unit) Tablet 25 mcg PO DAILY magnesium oxide 400 mg (241.3 mg magnesium) Tablet 800 mg PO TID Qty: 540 0RF <NIEVES Ramesh - Last Filed: 03/10/24 11:49> Discharge Orders: Discharge Order (Routine); Ordered 03/11/24 Ordered By: Dominique Fang <NIEVES Ramesh - Last Filed: 03/10/24 11:49> Diet: Advance to usual diet <NIEVES Ramesh - Last Filed: 03/10/24 11:49> Advance to usual diet <Dominique Fang NP - Last Filed: 03/11/24 08:55> Activity on Discharge: As tolerated <NIEVES Ramesh - Last Filed: 03/10/24 11:49> As tolerated <Dominique Fang NP - Last Filed: 03/11/24 08:55> Stand Alone Forms: Patient Portal Discharge page <NIEVES Ramesh - Last Filed: 03/10/24 11:49> Print Language: Hungarian <NIEVES Ramesh - Last Filed: 03/10/24 11:49> Other Ambulatory Orders: Comprehensive Met. Panel (Routine) Timeframe: 1 Week Facility: [facility] - Location: Laboratory Ordered By: Natasha Gross <NIEVES Ramesh - Last Filed: 03/10/24 11:49> Care Plan Goals: See below <NIEVES Ramesh - Last Filed: 03/10/24 11:49> Health Concerns: Electrolyte abnormalities-workup for etiology in progress Hematuria-resolved <NIEVES Ramesh - Last Filed: 03/10/24 11:49> Plan of Treatment: For electrolyte abnormalities Recommend outpatient follow-up with Nephrology to complete workup. Take electrolyte replacement as prescribed. Repeat electrolytes in 1 week. Start taking finasteride and Proscar. Call to schedule appointment urologist For UTI complete 10 days of oral levofloxacin <NIEVES Ramesh - Last Filed: 03/10/24 11:49> Assessment: See discharge summary <NIEVES Ramesh - Last Filed: 03/10/24 11:49>
--- NOTE | 2024-03-10 12:10 | MHC.CM.PN ---
Per PA, Patient is medically cleared for dc to home today/resume services and add SN.Patient is active with [facility], who has been notified of today's dc.CM met with Patient at bedside and per his request, a 5 PM [facility] has been booked for transport, (Patient has indicated that someone will be home at that time if dc'd at 5PM). CM left a detailed message for HCP/Mercedes @ [phone], informing her of the dc plan.
--- NOTE | 2024-03-10 12:13 | W.MHC.F2F ---
Service Date Service Date: 03/10/24 Encounter Date of encounter: 03/10/24 Reasons for Services Signs and symptoms assessed: Needs physical therapy. Needs senior care for medication management Reason for physical therapy: home safety and mobility and therapeutic exercises Overseeing Care: Ramiro Stewart Homebound: Leaving the home is medically contraindicated at this time without the asist of a device and/or another person due th the listed conditions above and below. Reason homebound: bedbound/chairbound Certification: Based on the above findings, I certify that this patient is confined to the home and needs intermittent senior care care, physical therapy and/or speech therapy, or continues to need occupational therapy. The patient is under my care, and I have initiated the establishment of the plan of care. The patient will be followed by a physician who will periodically review the plan of care. Time Spent With Patient Time: Total time managing care of this patient today ____ minutes.
--- NOTE | 2024-03-10 13:41 | MHC.CM.PN ---
Patient's Caregiver is out of town with her Son and will not be back and available to care for Patient until 3AM. DC has changed to tomorrow at 10 AM, rather than 5 PM today. Patient is informing his Caregiver/Mercedes himself, of the change.
--- NOTE | 2024-03-10 13:56 | HO.PM.IMPN ---
Subjective Subjective Date of Service: 03/10/24 Interval History: Seen and examined this morning Follow-up for electrolyte abnormalities Improving No hematuria today Review of Systems Constitutional : No Fever, No Chills, No Fatigue ENT/Mouth : No sore throat, No Rhinorrhea Eyes: No Eye Pain, No Swelling, No Redness Cardiovascular : No Chest Pain, No SOB, No Dyspnea on Exertion Respiratory : No Cough, No Sputum Gastrointestinal : No Nausea, No Vomiting, No Diarrhea, No abdominal Pain Genitourinary : No Dysuria, No Urinary Frequency, No Hematuria, Musculoskeletal : No joint pain, pos Myalgias, No Joint Swelling Skin : No Skin Lesions, No rash Neuro : No Weakness, No Numbness, No Dizziness, positive Headache Psych : pos Anxiety/Panic, pos Depression, pos SI All other systems reviewed and are negative Review of Systems: Yes all other systems are reviewed and are negative Constitutional Constitutional: Denies chills and Denies fever(s) ENT Ears, Nose, Mouth, and Throat: Denies dizziness Cardiovascular Cardiovascular: Denies chest pain, Denies irregular heart rhythm, Denies leg edema, Denies lightheadedness, Denies palpitations and Denies dyspnea Respiratory Respiratory: Denies dyspnea Gastrointestinal Gastrointestinal: Denies abdominal pain, Denies diarrhea, Denies nausea and Denies vomiting Genitourinary Genitourinary: Reports hematuria, Denies dysuria, Denies flank pain, Denies urinary frequency, Denies urinary hesitancy and Denies urinary urgency Neurologic Neurologic: Denies dizziness Endocrine Endocrine: Denies palpitations Physical Exam Vital Signs: Vital Signs: Last Vital Signs Temp 97.3 F 03/10/24 11:02 Pulse 66 03/10/24 11:02 Resp 18 03/10/24 11:02 BP 129/80 03/10/24 11:02 Pulse Ox 97 03/10/24 11:02 O2 Del Method Room Air 03/10/24 11:02 BMI result Body Mass Index 31.7 Const: General: cooperative, comfortable, no acute distress, alert and awake Nutritional Appearance: overweight Orientation/consciousness: patient oriented x3 Resp: Effort & Inspection: normal respiratory effort, able to speak in complete sentences, no respiratory distress and no use of accessory muscles Cardio: Rate: regular rate GI: Inspection: No distended Palpation (GI): Soft to palpation and nontender Neuro: General: patient oriented x3 Extrem: General: Yes no pedal edema Objective Data Active Medications Acetaminophen (Acetaminophen 325 Mg Tablet) 650 mg PO Q6H PRN PRN Reason: Pain, Mild (Pain Scale 1-3), fever or headache Last Admin: 03/09/24 08:00 Dose: 650 mg Documented By: CORNEL Baclofen (Baclofen 10 Mg Tablet) 5 mg PO BID PRN PRN Reason: Muscle Spasm Calcium Carbonate (Calcium Carbonate 750 Mg Tab.Chew) 750 mg PO Q4H PRN PRN Reason: Heartburn Calcium Carbonate/Cholecalciferol (Calcium + Vitamin D 250 Mg Tablet) 500 mg PO BIDWM [facility] Last Admin: 03/10/24 08:26 Dose: 500 mg Documented By: CORNEL Cyanocobalamin (Cyanocobalamin (Vitamin B-12) 1,000 Mcg Tablet) 1,000 mcg PO DAILY [facility] Last Admin: 03/10/24 08:26 Dose: 1,000 mcg Documented By: CORNEL Docusate Sodium (Docusate Sodium 100 Mg Capsule) 100 mg PO BID PRN PRN Reason: Constipation Ferrous Sulfate (Ferrous Sulfate 324 Mg Tablet.Dr) 324 mg PO DAILY [facility] Last Admin: 03/10/24 08:27 Dose: 324 mg Documented By: CORNEL Folic Acid (Folic Acid 1 Mg Tablet) 1 mg PO DAILY [facility] Last Admin: 03/10/24 08:27 Dose: 1 mg Documented By: CORNEL Ceftriaxone Sodium 1 gm/ (Sodium Chloride) 50 mls @ 100 mls/hr IV Q24H [facility] Last Infusion: 03/09/24 18:46 Dose: Infused Documented By: CORNEL Magnesium Hydroxide (Milk Of Magnesia 30 Ml Oral.Susp) 30 ml PO DAILY PRN PRN Reason: Constipation Magnesium Oxide (Magnesium Oxide 400 Mg Tablet) 800 mg PO TID [facility] Last Admin: 03/10/24 08:26 Dose: 800 mg Documented By: CORNEL Melatonin (Melatonin 3 Mg Tablet) 6 mg PO BEDTIME PRN PRN Reason: Insomnia Potassium Chloride (Potassium Chloride Packet 20 Meq Packet) 40 meq PO ONCE ONE Stop: 03/10/24 14:01 Potassium Chloride (Potassium Chloride Er 20 Meq Tab.Er.Prt) 40 meq PO BID [facility] Rivaroxaban (Rivaroxaban 20 Mg Tablet) 20 mg PO DAILY@1700 [facility] Last Admin: 03/09/24 18:05 Dose: 20 mg Documented By: CORNEL Sodium Chloride (0.9 % Sodium Chloride Flush 3 Ml Syringe) 3 ml IVFLUSH QSHIFT [facility] Last Admin: 03/10/24 08:26 Dose: 3 ml Documented By: CORNEL Labs 03/10/24 06:10 03/10/24 10:56 Labs: Laboratory Results - last 24 hr 03/10/24 06:10 MCV 85.8 MCH 27.9 MCHC 32.5 RDW 14.3 Plt Count 450 H MPV 9.8 Absolute Nucleated RBC 0.000 Nucleated RBC % (auto) 0.0 Anion Gap 9 L Estim Creat Clear Calc 213.6 Estimated GFR > 60 Random Glucose 90 Calcium 8.8 D Total Bilirubin 0.4 AST 25 ALT 66 H Alkaline Phosphatase 68 Total Protein 6.5 Albumin 3.3 L Assessment and Plan (1) Acute hypokalemia: Status: Acute Plan 53-year-old male with 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 Hypokalemia improving Workup in progress No GI losses, reports balanced diet. Hx of same, discontinued lyte replacement several weeks ago. renal fx wnl. No etoh abuse. Added calcium/vitamin-D p.o. Increased oral potassium to 40 b.i.d. Mag improved to 2.2. Continue PO max oxide 800mg TID Acute UTI no leukocytosis, no sepsis IV ceftriaxone (initiated 03/06) Urine culture suggestive of urogenital contamination however giving symptoms we will complete full course of antibiotics- urology recommends 10 days of oral levofloxacin #Acute hematuria Proteinuria resolved, seen by urology-recommend outpatient follow-up with Urology for cystoscopy. 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
[2024-03-10 15:45] VITALS: BP 148/94; PULSE 97; RESP 19; TEMP 36.7; O2SAT 98
[2024-03-10] MEDS: Potassium Chloride Packet 20 MEQ PACKET 40 MEQ PO (16:29)
[2024-03-10] MEDS: Tamsulosin HCL 0.4 MG CAPSULE PO (16:31)
[2024-03-10] MEDS: Rivaroxaban 20 MG TABLET PO (16:32)
[2024-03-10] MEDS: cefTRIAXone sodium 1 GM VIAL IVPUSH (16:33)
[2024-03-10 19:29] VITALS: BP 134/90; PULSE 78; RESP 20; TEMP 36.6; O2SAT 100
[2024-03-10] MEDS: Acetaminophen 325 MG TABLET 650 MG PO (22:39)
[2024-03-10 23:58] VITALS: BP 134/88; PULSE 88; RESP 18; TEMP 35.9; O2SAT 97
[2024-03-11 03:37] VITALS: BP 126/78; PULSE 95; RESP 18; TEMP 36.2; O2SAT 97
[2024-03-11 07:57] VITALS: BP 123/80; PULSE 79; RESP 20; TEMP 36.8; O2SAT 97
[2024-03-11] MEDS: Finasteride 5 MG TABLET PO (08:39)
[2024-03-11] MEDS: Ferrous Sulfate 324 MG TABLET.DR PO (08:39)
[2024-03-11] MEDS: Tamsulosin HCL 0.4 MG CAPSULE PO (08:39)
[2024-03-11] MEDS: Calcium + Vitamin D 250 MG TABLET 500 MG PO (08:39)
[2024-03-11] MEDS: Magnesium Oxide 400 MG TABLET 800 MG PO (08:39)
[2024-03-11] MEDS: Folic Acid 1 MG TABLET PO (08:39)
[2024-03-11] MEDS: Cyanocobalamin (Vitamin B-12) 1,000 MCG TABLET 1000 MCG PO (08:39)
[2024-03-11] MEDS: Potassium Chloride ER 20 MEQ TAB.ER.PRT 40 MEQ PO (08:39)
[2024-03-11] MEDS: 0.9 % Sodium Chloride Flush 3 ML SYRINGE IVFLUSH (08:40)
--- NOTE | 2024-03-11 09:02 | MHC.CM.PN ---
Pt is medically cleared for discharge home with resumption fo previous [facility] services today, he will transport home via BLS at 10am.
--- NOTE | 2024-03-11 12:09 | PC.NURSE ---
Patient had a large amount of elliott with security/ elliott was retrieved. Amount was verified with two nurses at bedside and the patient. Security sheet numbers for each denomination was wrong but the total was right. See security note for details.
[2024-03-13 07:34] LABS: IgA 467 mg/dL (47-310); IgG 1579 mg/dL (600-1640); IgM 35 mg/dL (50-300)
[2024-03-13 10:23] LABS: Renin 0.05 ng/mL/h (0.25-5.82)
== END 2024-03-11 12:30 | disposition home health service (06) | DRG 463 ==
LOC: HO.ED 21:00 → HO.EDOVER 21:24 → HO.IMC 03-07 17:21
PROVIDERS: Emergency Medicine; Nurse Practitioner Family; Physician Assistant Medical; Student in an Organized Health Care Education/Training Program; Admitting Provider Physician Assistant; Emergency Provider Emergency Medicine; PCP Internal Medicine; Visit Provider Nurse Practitioner Acute Care
DX: N39.0 Urinary tract infection, site not specified (principal); G61.0 Guillain-Barre syndrome; E83.51 Hypocalcemia; N02.B1 Recurrent and persistent immunoglobulin A nephropathy with glomerular lesion; K76.0 Fatty (change of) liver, not elsewhere classified; E83.42 Hypomagnesemia; G47.33 Obstructive sleep apnea (adult) (pediatric); E87.6 Hypokalemia; R31.0 Gross hematuria; Z86.711 Personal history of pulmonary embolism; Z99.3 Dependence on wheelchair; Z23 Encounter for immunization; Z79.01 Long term (current) use of anticoagulants; Z91.199 Patient's noncompliance with other medical treatment and regimen due to unspecified reason; Z79.620 Long term (current) use of immunosuppressive biologic; Z79.899 Other long term (current) drug therapy
CPT/HCPCS: 36415; 70450; 71045; 73140; 76705; 80048; 80053; 80076; 81001; 82088; 82306; 82436; 82550; 82570; 82784; 83605; 83690; 83735; 83970; 84100; 84105; 84132; 84133; 84156; 84244; 84300; 84560; 85025; 85027; 85652; 86140; 86334; 86704; 86706; 86709; 86803; 87040; 87086; 87340; 90656; 93005; 99285; J0613; J0696; J3475; J3480; J7120

== ENCOUNTER → 2024-03-06 20:39 | Outpatient (BNV) | payer OTHER, SELFPAY | PROVIDERS: Admitting Provider Physician Assistant; Emergency Provider Emergency Medicine; PCP Internal Medicine; Visit Provider Urology | DX: N39.0 Urinary tract infection, site not specified (principal); R31.9 Hematuria, unspecified | CPT/HCPCS: 99222 ==

== ENCOUNTER → 2024-03-06 20:39 | Outpatient (BNV) | payer OTHER, SELFPAY | PROVIDERS: Admitting Provider Physician Assistant; Emergency Provider Emergency Medicine; PCP Internal Medicine; Visit Provider Physician Assistant | DX: N39.0 Urinary tract infection, site not specified (principal); E83.51 Hypocalcemia; E83.42 Hypomagnesemia; E87.6 Hypokalemia | CPT/HCPCS: 99222; 99232; 99239; G0180 ==

== ENCOUNTER → 2024-03-06 20:39 | Outpatient (BNV) | payer OTHER, SELFPAY | PROVIDERS: Admitting Provider Physician Assistant; Emergency Provider Emergency Medicine; PCP Internal Medicine; Visit Provider Nurse Practitioner Family | DX: E83.51 Hypocalcemia (principal); E83.42 Hypomagnesemia; E87.6 Hypokalemia; R31.9 Hematuria, unspecified | CPT/HCPCS: 99223; 99232 ==

== ENCOUNTER 2024-03-16 11:15 | Outpatient (REF) | payer OTHER, SELFPAY ==
[2024-03-16 12:36] LABS: Alanine Aminotransferase 78 U/L (0-40); Albumin Level 3.5 g/dL (3.5-5.0); Alkaline Phosphatase 82 U/L (39-117); Anion Gap 11 (12-20); Aspartate Amino Transferase 34 U/L (5-37); Bilirubin Total 0.5 mg/dL (0.0-1.0); Blood Urea Nitrogen 14 mg/dL (9-16); Calcium 8.9 mg/dL (8.4-10.2); Carbon Dioxide 25 mmol/L (22-29); Chloride 110 mmol/L (96-108); Estimated Glomerular Filt Rate > 60; Glucose Random 107 mg/dL (60-115); Potassium 3.5 mmol/L (3.3-5.1); Sodium 142 mmol/L (135-145); Total Protein 6.8 g/dL (6.5-8.0)
== END 2024-03-16 11:16 | disposition home or self-care (01) ==
LOC: HO.HVNA 11:15
PROVIDERS: Visit Provider Surgery
DX: E87.8 Other disorders of electrolyte and fluid balance, not elsewhere classified (principal)
CPT/HCPCS: 36415; 80053

== ENCOUNTER 2024-03-21 13:36 | Outpatient (AMB) | payer OTHER, SELFPAY ==
--- NOTE | 2024-03-21 13:40 | HO.NEPHOV ---
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 Allergies No Known Allergies Allergy (Verified 03/21/24 13:59) Medication List - Last Reconciled 03/21/24 by Wild Gaytan MD calcium carbonate-vitamin D3 250 mg-3.125 mcg (125 unit) 2 tabs PO BID 90 days cholecalciferol (vitamin D3) (Vitamin D3) 25 mcg PO DAILY cyanocobalamin (vitamin B-12) (Vitamin B-12) 1,000 mcg PO DAILY docusate sodium 100 mg PO BID PRN ferrous sulfate 325 mg PO DAILY finasteride (Proscar) 5 mg PO DAILY 90 days folic acid 1 mg PO DAILY levofloxacin 500 mg PO Q24H 10 days magnesium oxide 800 mg PO BID potassium chloride ER (Klor-Con M) 40 mEq (2 x 20 mEq) PO BID 30 days rivaroxaban (Xarelto) 20 mg PO DAILY@1700 tamsulosin 0.4 mg PO BEDTIME HPI Comments Details: 53-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 Recent potassium is normal while on supplementation. No diarrhea or polyuria at this time. [facility] Medical History (Updated 03/19/24 @ 00:01 by Shakeel العراقي) Abdominal pain Morbid obesity Guillain-Aledo syndrome Femur fracture, right DVT (deep venous thrombosis) Pulmonary embolism Surgical History (Updated 03/21/24 @ 13:59 by KENRICK Allen) History of abdominal surgery (~10/2023) Status post small bowel resection H/O hand surgery Social History Household Members: Significant Other Housing: House Do you presently have visiting nurse or other home services: No Alcohol intake: current Alcohol intake frequency: a few times a week Patient Tobacco Use Status: Former Tobacco user Tobacco use type: Cigarette Substance Use Type: Marijuana Advance Directives Date on File: 08/06/23 service: No Physical Exam Vital Signs: Last Vital Signs Pulse 109 H 03/21/24 13:56 BP 132/100 H 03/21/24 13:56 Pulse Ox 99 03/21/24 13:56 Oxygen Delivery Method Room Air 03/21/24 13:56 Neck Neck: Yes supple Resp Auscultation: clear to auscultation bilaterally Cardio Palpation: no palpable S3 Heart sounds: no rubs GI Palpation (GI): Soft to palpation Auscultation: normal bowel sounds Neuro Motor exam (neuro): no asterixis Results Reviewed Nephrology Results: Hgb 11.4 g/dl (14.0-18.0) L 03/10/24 WBC 5.3 X10*3/uL (4.8-10.8) 03/10/24 Plt Count 450 X10*3/uL (160-400) H 03/10/24 Sodium 142 mmol/L (135-145) 03/16/24 Potassium 3.5 mmol/L (3.3-5.1) 03/16/24 Chloride 110 mmol/L (96-108) H 03/16/24 Carbon Dioxide 25 mmol/L (22-29) 03/16/24 BUN 14 mg/dL (9-16) 03/16/24 Creatinine 0.65 mg/dL (0.5-1.4) 03/16/24 Calcium 8.9 mg/dL (8.4-10.2) 03/16/24 Phosphorus 4.4 mg/dL (2.7-4.5) 03/08/24 PTH Intact 164.2 pg/mL (8.7-77.1) H 03/06/24 Urine Protein Negative mg/dL (Neg-Trace) 03/08/24 Urine Creatinine 71.51 mg/dL 03/07/24 Assessment & Plan Assessment & Plan (1) Hypokalemia: Code(s): E87.6 - Hypokalemia Category: Medical (2) Hypomagnesemia: Code(s): E83.42 - Hypomagnesemia Category: Medical Plan Hypokalemia stance correct corrected with supplementation. Renin level was not elevated For now we will continue potassium supplementation monitor levels. Blood pressure is acceptable. Orders: Orders Basic Metabolic Panel 1 Month Wild Gaytan MD E83.42 - Hypomagnesemia, E87.6 - Hypokalemia Magnesium 1 Month Wild Gaytan MD E83.42 - Hypomagnesemia, E87.6 - Hypokalemia Phosphorus 1 Month Wild Gaytan MD E83.42 - Hypomagnesemia, E87.6 - Hypokalemia Medications: Changed From magnesium oxide 800 mg (2 x 400 mg (241.3 mg magnesium)) PO TID 540 tabs 0RF To magnesium oxide 800 mg PO BID Julian Greenberg MD Discontinued tamsulosin (Flomax) Discontinued Reason: Duplicate 0.4 mg PO DAILY 60 days 60 caps 0RF calcium carbonate-vitamin D3 250 mg-3.125 mcg (125 unit) Discontinued Reason: Duplicate 2 tabs PO BIDWM 60 days 240 tabs 0RF Coding Level of Care Code Est Pt Level 4 (39511) Diagnoses Hypokalemia E87.6 Hypomagnesemia E83.42
[2024-03-21 13:56] VITALS: BP 132/100; PULSE 109; O2SAT 99
== END 2024-03-21 14:12 | disposition home or self-care (01) ==
PROVIDERS: PCP Internal Medicine; Visit Provider Internal Medicine Hypertension Specialist
DX: E87.6 Hypokalemia (principal); E83.42 Hypomagnesemia
CPT/HCPCS: 99214

== ENCOUNTER → 2024-03-21 13:36 | Outpatient (BNVA) | payer OTHER, SELFPAY | PROVIDERS: PCP Internal Medicine; Visit Provider Internal Medicine Hypertension Specialist | DX: E87.6 Hypokalemia (principal); E83.42 Hypomagnesemia | CPT/HCPCS: 99212 ==

== ENCOUNTER 2024-04-25 21:42 | Inpatient (IN) | payer OTHER, SELFPAY ==
--- NOTE | 2024-04-25 | ECG_ITS ---
Test Reason : HYPOTENSION Blood Pressure : / mmHG Vent. Rate : 083 BPM Atrial Rate : 000 BPM P-R Int : 000 ms QRS Dur : 110 ms QT Int : 394 ms P-R-T Axes : 000 000 050 degrees QTc Int : 462 ms Accelerated Junctional rhythm Abnormal ECG When compared with ECG of 06-MAR-2024 14:07, Junctional rhythm has replaced Sinus rhythm Referred By: Kaitlin Hernandez Electronically Signed By:RANDY TORRES
--- NOTE | ~2024-04-25 | XR_ITS ---
EXAMINATION: XR ABDOMEN KUB CLINICAL INFORMATION: Evaluate NG tube, not seen on prior chest x-ray. COMPARISON: Chest radiograph dated 04/26/[address] abdomen/pelvis dated 04/25/2024. TECHNIQUE: AP semiupright portable view of the abdomen. FINDINGS: Enterogastric tube with the tip in the region of the gastric body. Dilated upper abdominal bowel loops are unchanged. The visualized lung bases are clear. No free air beneath the hemidiaphragms. XR/XR KUB IMPRESSION: 1. Enterogastric tube tip in the region of the gastric body. 2. Dilated upper abdominal bowel loops are unchanged. Electronically signed by: Natalio Mendez MD 04/27/2024 10:27 AM [facility] [place]
--- NOTE | ~2024-04-25 | CT_ITS ---
EXAMINATION: CT ABDOMEN AND PELVIS WITH CONTRAST CLINICAL INFORMATION: Abdominal pain. COMPARISON: October 18, 2023 TECHNIQUE: Multidetector volumetric images were obtained from the superior aspect of the liver through the pubic symphysis following administration 85 mL of Omnipaque 350 intravenous contrast. Sagittal and coronal reformatted images were obtained on the technologist's workstation. Oral contrast: No This CT examination was performed using dose optimization techniques as appropriate, variously including the following: *Automated exposure control *Adjustment of mA and/or kV according to patient size (this includes techniques or standardized protocols for targeted exams where dose is matched to indication/reason for exam; i.e. extremities or head) *Use of iterative reconstruction technique DLP: 1165 mGy-cm FINDINGS: LUNG BASES: There is minimal subsegmental atelectasis or scarring at the right lung base. LIVER, GALLBLADDER, AND BILIARY TREE: The liver is normal in size, shape, and attenuation. No focal hepatic lesion or biliary ductal dilatation is present. The gallbladder is unremarkable with no evidence of radiopaque gallstones, gallbladder wall thickening, or obvious pericholecystic inflammatory changes. PANCREAS: Unremarkable. SPLEEN: Unremarkable. ADRENAL GLANDS: Unremarkable. KIDNEYS AND URETERS: The kidneys are normal in size, shape, and attenuation. No hydronephrosis, hydroureter, or calculi seen. No perinephric stranding. BLADDER: Unremarkable. GASTROINTESTINAL TRACT: There are dilated proximal to mid small bowel loops measuring up to 8 cm extending to a transition point in the right mid abdomen where there are apparent surgical clips and a near-complete twist of the associated mesentery and infiltrative change within the associated mesentery. There is a distended and fluid-filled esophagus. ABDOMINAL WALL: No significant hernia is appreciated. LYMPH NODES: Normal. VASCULAR: Unremarkable. PELVIC VISCERA: Unremarkable. OSSEOUS STRUCTURES: There is diffuse thoracolumbar disc degenerative change. There is minimal loss of superior height of the L1 and L5 vertebral bodies. CT/CT abdomen pelvis w IV con IMPRESSION: High-grade small bowel obstruction with transition point in the right mid abdomen where there are apparent surgical clips and a near-complete twist of the associated mesentery and infiltrative change within the associated mesentery. Fleischner guidelines were followed. Electronically signed by: Jimenez Campos MD 04/26/2024 12:29 AM EST
--- NOTE | ~2024-04-25 | CT_ITS ---
CT HEAD WITHOUT IV CONTRAST CLINICAL INFORMATION: encephalopathy COMPARISON: No prior CT scan available for comparison. TECHNIQUE: Department standard protocol. This CT examination was performed using dose optimization techniques as appropriate, variously including the following: *Automated exposure control *Adjustment of mA and/or kV according to patient size (this includes techniques or standardized protocols for targeted exams where dose is matched to indication/reason for exam; i.e. extremities or head) *Use of iterative reconstruction technique DLP: 3181 mGy-cm FINDINGS: Exam limited by motion artifacts. CEREBRAL HEMISPHERES: There is no evidence of intra-axial or extra-axial mass, hemorrhage or acute infarct. BRAIN PARENCHYMA: Normal platt-white matter differentiation. SUBDURAL SPACE: No bleed. BASAL GANGLIA AND PINEAL GLAND: Unremarkable VENTRICLES: Symmetric and normal in size. CEREBELLUM AND BRAINSTEM: No space-occupying mass, hemorrhage or acute infarct. CEREBELLOPONTINE ANGLES: No lesion found. ORBITS: No intraorbital mass. VESSELS: Unremarkable SKULL BASE: Unremarkable INCLUDED SINUSES AT SKULL BASE: Clear SKULL AND SKIN: No fracture or bone lesion found. CT/CT head/brain wo IV con IMPRESSION: Limited this study, motion artifact degrades image quality. No gross evidence of intracranial bleed, mass or mass effect. Electronically signed by: Shanell Handy MD 05/14/2024 02:36 PM [facility]
--- NOTE | ~2024-04-25 | XR_ITS ---
EXAMINATION: XR CHEST CLINICAL INFORMATION: NGT placement COMPARISON: March 06, 2024. TECHNIQUE: Frontal view of the chest was obtained. FINDINGS: The lung volumes are low and the patient is rotated. The cardiomediastinal silhouette is stable. There is no focal lung consolidation or pleural effusion. A gastric tube extends below the diaphragm into the right abdomen. The tip of the gastric tube is not seen. Distended bowel loops are noted. XR/XR chest 1V IMPRESSION: Gastric tube extends below the diaphragm into the right abdomen. The tip of the gastric tube is not seen. No evidence for active cardiopulmonary disease. Electronically signed by: Jimenez Campos MD 04/26/2024 02:24 AM [facility]
--- NOTE | ~2024-04-25 | CT_ITS ---
EXAMINATION: CT OF THE THORAX, ABDOMEN, AND PELVIS, WITH CONTRAST CLINICAL INFORMATION: HYPOTENSION, ENCEPHALOPATHY COMPARISON: CT abdomen/pelvis dated 04/25/2024 TECHNIQUE: Multiple axial images were obtained through the chest, abdomen, and pelvis after the administration of 80 mL of intravenous Omnipaque 350. Enteric contrast was not given. Images were evaluated on independent dedicated 3-D workstation and 3-D images were reconstructed with concurrent radiologist supervision and subsequently interpreted. This CT examination was performed using dose optimization techniques as appropriate, variously including the following: *Automated exposure control *Adjustment of mA and/or kV according to patient size (this includes techniques or standardized protocols for targeted exams where dose is matched to indication/reason for exam; i.e. extremities or head) *Use of iterative reconstruction technique DLP: 2511.69 mGy-cm FINDINGS: THORAX: Heart: Enlarged. No coronary artery calcifications. No aortic aneurysm. The bovine arch. The great vessels of the thorax are normal in course. Thyroid Gland: The visualized thyroid gland is normal. Lungs: Bibasilar atelectasis, worse on the right, is new when compared to prior. Airways: Endotracheal tube with tip terminating 3.0 cm above the darinel. The trachea and central bronchi are normal. Pleura: Small right and trace left pleural effusions. No pneumothorax. Lymph Nodes: No supraclavicular, axillary, mediastinal or hilar lymphadenopathy is identified. Chest Wall: No chest wall mass. ABDOMEN/PELVIS: Liver: New patchy and irregular hypodensity along the lateral right liver. Gallbladder: No gallbladder wall thickening, pericholecystic fluid, or pericholecystic stranding. Biliary System: No intrahepatic or extrahepatic biliary ductal dilation. Pancreas: Homogeneous in attenuation. No pancreatic ductal dilatation. No focal lesion. Spleen: Normal in size. Adrenal Glands: No focal nodule. Kidneys/Bladder: Bilateral kidneys demonstrate symmetric enhancement. No perinephric fluid collection, urolithiasis or hydroureteronephrosis bilaterally. GI: Endotracheal tube in place with tip terminating in the gastric fundus. Persistent small bowel obstruction similar appearance of the transition point in the mid abdomen around surgical graham where there is near complete swirling of the mesentery. The small bowel measures up to 7.1 cm. There are multiple loops of bowel in the right lower quadrant with nonenhancing cordoba. There is also new large volume ascites and scattered (at least 4) tiny foci of extraluminal air (26:437, 468, 499). The appendix is not definitively visualized. Peritoneum: Scattered tiny foci of pneumoperitoneum, as above. Large volume ascites. Pelvic Structures: Indwelling Vasquez catheter with a decompressed bladder, which limits evaluation. The prostate is unremarkable. Vasculature: Mild scattered atherosclerosis of the aorta and its branches. The abdominal aorta is normal in course and caliber. Lymph Nodes: No pathologically enlarged abdominal or pelvic lymph nodes. Soft Tissues/Musculoskeletal: No destructive osseous lesions. Subchondral cystic changes in the right femoral head likely represent at least moderate arthritis. CT/CT abdomen pelvis w IV con IMPRESSION: When compared to CT abdomen/pelvis dated 04/25/2024: 1. Persistent small bowel obstruction with similar appearance of the transition point in the mid abdomen around surgical graham, where there is near complete swirling of the mesentery. The small bowel is dilated up to 7.1 cm. There are multiple loops of small bowel in the right lower quadrant with nonenhancing cordoba, concerning for ischemia. There is also new large volume ascites and scattered (at least 4) tiny foci of extraluminal air, concerning for perforation. Recommend surgical consultation. 2. New patchy and irregular hypodensity along the lateral right liver, concerning for hepatic infarct. 3. Small right and trace left pleural effusions with bibasilar atelectasis, worse on the right, is new when compared to prior. Fleischner guidelines were followed. Findings were verbally communicated to Dr Flores on 05/14/2024 3:00 PM. Electronically signed by: Anya Campos MD 05/17/2024 11:17 PM [facility]
--- NOTE | ~2024-04-25 | XR_ITS ---
EXAMINATION: XR ABDOMEN KUB CLINICAL INDICATION: SBO. COMPARISON: 04/27/2024 x-ray abdomen. TECHNIQUE: 4 AP views of the abdomen. FINDINGS: Enterogastric tube with tip retracted to the expected location of the distal esophagus. Redemonstration of multiple dilated loops of bowel, better characterized on CT abdomen and pelvis of 04/25/2024, again characteristic of bowel obstruction. XR/XR KUB IMPRESSION: 1. Enterogastric tube with tip retracted to the expected location of the distal esophagus. 2. Redemonstration of multiple dilated loops of bowel, better characterized on CT abdomen and pelvis of 04/25/2024, again characteristic of bowel obstruction. This study was presented today, May 02, 2024, for interpretation. Stat results provided at this time as requested by referring provider. Electronically signed by: Aster Bonilla MD 05/02/2024 02:47 PM [facility]
--- NOTE | ~2024-04-25 | XR_ITS ---
EXAMINATION: XR CHEST CLINICAL INFORMATION: Intubated COMPARISON: CXR on 04/26/24 TECHNIQUE: Frontal view of the chest was obtained. FINDINGS: ETT 4.5cm above the darinel. There is a LUE picc terminating at the cavoatrial junction. There is a nontunneled LIJ catheter in the brachiocephalic vein. Enteric tube in stomach. Cardiac silhouette is normal. XR/XR chest 1V IMPRESSION: No acute pulmonary disease. Electronically signed by: Maria D Bourgeois MD 05/13/2024 02:10 PM [facility]
[2024-04-25 21:47] VITALS: BP 136/81; PULSE 90; O2SAT 98
[2024-04-25 21:53] VITALS: BP 77/53
[2024-04-25 21:58] VITALS: BP 68/48
--- NOTE | 2024-04-25 21:58 | ED_ITS ---
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 Presents today via EMS for evaluation endoring that over the past 15 hours he has had multiple episodes of bilious nonbloody emesis and mid /right-sided abdominal pain. Reports that he had been feeling constipated but did have a bowel movement earlier today. Denies any recent fevers or chills. Denies hematochezia or melena. Denies symptoms Related Data Home Medications ?Medication ?Instructions ?Recorded ?Confirmed rivaroxaban 20 mg tablet (Xarelto) 20 mg PO DAILY@1700 10/18/23 03/06/24 cholecalciferol (vitamin D3) 25 25 mcg PO DAILY 10/19/23 03/06/24 mcg (1,000 unit) tablet (Vitamin D3) cyanocobalamin (vitamin B-12) 1,000 mcg PO DAILY 03/06/24 03/06/24 1,000 mcg tablet (Vitamin B-12) docusate sodium 100 mg capsule 100 mg PO BID PRN Constipation 03/06/24 03/06/24 ferrous sulfate 325 mg (65 mg 325 mg PO DAILY 03/06/24 03/06/24 iron) tablet folic acid 1 mg tablet 1 mg PO DAILY 03/06/24 03/06/24 magnesium oxide 400 mg (241.3 mg 800 mg PO BID 03/21/24 03/21/24 magnesium) tablet Previous Rx's ?Medication ?Instructions ?Recorded finasteride 5 mg tablet (Proscar) 5 mg PO DAILY 90 days #90 tabs 03/10/24 levofloxacin 500 mg tablet 500 mg PO Q24H 10 days #10 tabs 03/10/24 potassium chloride 20 mEq 40 meq (2 x 20 mEq) PO BID 30 days 03/10/24 tablet,extended #120 tabs release(part/cryst) (Klor-Con M) calcium 250 mg (as 2 tab PO BID 90 days #360 tabs 03/14/24 carbonate)-vitamin D3 3.125 mcg (125 unit) tablet tamsulosin 0.4 mg capsule 0.4 mg PO BEDTIME #90 caps 03/14/24 Allergies Allergy/AdvReac Type Severity Reaction Status Date / Time No Known Allergies Allergy Verified 04/25/24 22:07 Review of Systems Review of Systems Yes all other systems are reviewed and are negative [facility] Past Medical History Attestation statement: The following information was validated with the patient. Source: old records reviewed Medical History (Updated 04/26/24 @ 02:38 by Tonya Goyal PA-C) Morbid obesity Abdominal pain Guillain-[place] syndrome Femur fracture, right DVT (deep venous thrombosis) Pulmonary embolism Surgical History History of abdominal surgery (~10/2023) Status post small bowel resection H/O hand surgery Social History Social History Household Members: Significant Other Housing: House Do you presently have visiting nurse or other home services: No Alcohol intake: current Alcohol intake frequency: a few times a week Patient Tobacco Use Status: Former Tobacco user Tobacco use type: Cigarette Substance Use Type: Marijuana Advance Directives: Yes Advance Directives on File: Yes Advance Directives Date on File: 08/06/23 Do you have a plan to hurt others: No Plan service: No Physical Exam ED Vital Signs: Vital Signs - 24 hr 04/25/24 21:53 04/25/24 21:58 04/25/24 22:04 Temperature Pulse Rate Respiratory Rate Blood Pressure 77/53 L 68/48 L 66/45 L Pulse Oximetry Oxygen Delivery Method 04/25/24 22:16 04/25/24 23:16 04/26/24 01:46 Temperature 97.9 F Pulse Rate 98 89 Respiratory Rate 14 20 Blood Pressure 86/67 L 95/65 121/86 Pulse Oximetry 96 96 Oxygen Delivery Method Room Air Room Air BMI result Body Mass Index 36.0 Appearance: Alert.?Oriented to person, place and time. No acute distress.?Normal affect. Eyes: Pupils equal, round and reactive to light.? ENT: Pharynx normal.?? Neck: Normal inspection.? Neck supple.?? CVS: Heart sounds normal. tachycardic, hypotensive? Pulses normal.?? Respiratory: No respiratory distress.? Lung sounds clear to auscultation bilaterally?? Abdomen: semifirm with diffuse tenderness, notably worse to the right upper and lower quadrant as well as the epigastrium. Normoactive bowel sounds. No pulsatile mass.?? Skin: diaphoretic, cold to touch. Normal skin color.? Normal skin turgor.?? Extremities: No lower extremity edema.? No calf ttp? Neuro: Moves all extremities spontaneously. Sensation intact bilaterally. CN II- XII intact. No focal neuro deficits. Course Reevaluation(s) Reevaluation #1: reviewed this case with General surgery Dr. Holley, patient to be admitted to medicine service for resuscitation stabilization, patient has had prior surgery with Dr. Brasher, Dr. Brasher to evaluate patient in the morning and make a decision on next steps. I spoke with the hospitalist, Dr. Erasmo Valle for admission to medicine service. 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 Brasher, recent electrolyte derangements. arrives to the emergency department and clammy diaphoretic, hypotensive with systolic blood pressure in the 60s, mildly tachycardic. Sepsis alert was called. Concern for was bowel obstruction given his history and presenting symptoms. Will obtain CBC to evaluate for leukocytosis/ anemia, CMP and lipase to evaluate for abnormal electrolytes /abnormal renal function/ abnormal hepatic/biliary function, EKG and troponin to evaluate for ischemia/ACS, and Urinalysis. Sepsis fluid bolus order based on ideal body weight secondary to obesity, covering with Zosyn. Given his recent steroid usage, and presentation, patient received hydrocortisone 100 mg IV. Differential Diagnosis Differential Diagnoses: The differential diagnosis associated with the presentation includes ( see narrative above) Admission/Observation Consideration of admission/observation: Escalation of care including admission/observation considered Lab Data MDM Lab Attestation statement: I reviewed the patient's lab results. CBC is without leukocytosis, anemia, has chronic thrombocytosis. Mild hypokalemia 3.2, will replace orally, sodium of 134, no ANA. Lactic acid of 2.6. LFTs and lipase overall unremarkable. High sensitive troponin below detectable limits. 04/25/24 22:07 04/25/24 22:07 Labs: Lab Results 04/25/24 04/25/24 04/25/24 Range/Units 22:03 22:07 22:08 WBC 8.3 (4.8-10.8) X10*3/uL RBC 5.90 H D (4.60-5.80) X10*6/uL Hgb 16.1 D (14.0-18.0) g/dl Hct 49.4 D (42.0-52.0) % MCV 83.7 (80.0-98.0) fL MCH 27.3 (27.0-33.0) pg MCHC 32.6 (31.0-36.0) g/dl RDW 14.8 (11.0-16.0) % Plt Count 567 H D (160-400) X10*3/uL MPV 9.5 (9.4-12.4) fL Immature Gran % (Auto) 0.5 H (0.0-0.4) % Neut % (Auto) 72.1 (45-73) % Lymph % (Auto) 20.3 (20-40) % Towns % (Auto) 6.8 (2-11) % Eos % (Auto) 0.1 (0-4) % Baso % (Auto) 0.2 (0-2) % Lymph # (Auto) 1.7 (1.2-4.9) X10*3/uL Towns # (Auto) 0.6 (0.1-1.2) X10*3/uL Eos # (Auto) 0.0 (0.0-0.4) X10*3/uL Baso # (Auto) 0.0 (0.0-0.2) X10*3/uL Abs Immat Gran (auto) 0.04 H (0.00-0.03) X10*3/uL Absolute Neuts (auto) 6.0 (2.0-8.3) x10*3/uL Absolute Nucleated RBC 0.000 (0.0-0.012) X10*3/uL Nucleated RBC % (auto) 0.0 (0.0-0.2) /100WBC PT 12.1 (10.9-12.4) SEC INR 1.0 D (0.9-1.1) Sodium 134 L (135-145) mmol/L Potassium 3.2 L (3.3-5.1) mmol/L Chloride 99 (96-108) mmol/L Carbon Dioxide 22 (22-29) mmol/L Anion Gap 16 (12-20) BUN 17 H (9-16) mg/dL Creatinine 1.06 (0.5-1.4) mg/dL Estim Creat Clear Calc 104.1 Estimated GFR > 60 POC Glucose 151 H (60-115) mg/dL Random Glucose 183 H (60-115) mg/dL Lactic Acid 2.6 H* (0.5-2.0) mmol/L Lactic Acid F/U @ 2Hr (0.5-2.0) mmol/L Calcium 11.1 H D (8.4-10.2) mg/dL Magnesium 2.0 (1.6-2.6) mg/dL Total Bilirubin 0.7 (0.0-1.0) mg/dL AST 26 (5-37) U/L ALT 47 H (0-40) U/L Alkaline Phosphatase 112 (39-117) U/L Troponin I High Sens 3.0 D (<3.5-35.0) ng/L B-Natriuretic Peptide < 10 (<100) pg/mL Total Protein 10.2 H (6.5-8.0) g/dL Albumin 4.6 (3.5-5.0) g/dL Lipase 6 L (8-78) U/L Influenza Type A (PCR) NEGATIVE (Negative) Influenza Type B (PCR) NEGATIVE (Negative) RSV RNA Qual (PCR) NEGATIVE (Negative) SARS-CoV-2 RNA (RT-PCR) NEGATIVE (Negative) 04/26/24 Range/Units 00:57 WBC (4.8-10.8) X10*3/uL RBC (4.60-5.80) X10*6/uL Hgb (14.0-18.0) g/dl Hct (42.0-52.0) % MCV (80.0-98.0) fL MCH (27.0-33.0) pg MCHC (31.0-36.0) g/dl RDW (11.0-16.0) % Plt Count (160-400) X10*3/uL MPV (9.4-12.4) fL Immature Gran % (Auto) (0.0-0.4) % Neut % (Auto) (45-73) % Lymph % (Auto) (20-40) % Towns % (Auto) (2-11) % Eos % (Auto) (0-4) % Baso % (Auto) (0-2) % Lymph # (Auto) (1.2-4.9) X10*3/uL Towns # (Auto) (0.1-1.2) X10*3/uL Eos # (Auto) (0.0-0.4) X10*3/uL Baso # (Auto) (0.0-0.2) X10*3/uL Abs Immat Gran (auto) (0.00-0.03) X10*3/uL Absolute Neuts (auto) (2.0-8.3) x10*3/uL Absolute Nucleated RBC (0.0-0.012) X10*3/uL Nucleated RBC % (auto) (0.0-0.2) /100WBC PT (10.9-12.4) SEC INR (0.9-1.1) Sodium (135-145) mmol/L Potassium (3.3-5.1) mmol/L Chloride (96-108) mmol/L Carbon Dioxide (22-29) mmol/L Anion Gap (12-20) BUN (9-16) mg/dL Creatinine (0.5-1.4) mg/dL Estim Creat Clear Calc Estimated GFR POC Glucose (60-115) mg/dL Random Glucose (60-115) mg/dL Lactic Acid (0.5-2.0) mmol/L Lactic Acid F/U @ 2Hr 1.9 (0.5-2.0) mmol/L Calcium (8.4-10.2) mg/dL Magnesium (1.6-2.6) mg/dL Total Bilirubin (0.0-1.0) mg/dL AST (5-37) U/L ALT (0-40) U/L Alkaline Phosphatase (39-117) U/L Troponin I High Sens (<3.5-35.0) ng/L B-Natriuretic Peptide (<100) pg/mL Total Protein (6.5-8.0) g/dL Albumin (3.5-5.0) g/dL Lipase (8-78) U/L Influenza Type A (PCR) (Negative) Influenza Type B (PCR) (Negative) RSV RNA Qual (PCR) (Negative) SARS-CoV-2 RNA (RT-PCR) (Negative) Independent Interpretation I performed an independent interpretation of an: EKG Interpretation: Rate:83 Rhythm:? Sinus rhythm versus accelerated junctional, difficult to ascertain distinct P waves Normal QRS complex.?? ST T wave :?? no ST elevation, no ST depression qTC: 462 prior studies:? The study has been interpreted contemporaneously by me. Radiology Impression Discussion of test interpretation with radiology: I have reviewed the radiologist's reading. Radiologist Impression: CT/CT abdomen pelvis w IV con IMPRESSION: High-grade small bowel obstruction with transition point in the right mid abdomen where there are apparent surgical clips and a near-complete twist of the associated mesentery and infiltrative change within the associated mesentery. Independent Historian Clinical information obtained from an independent historian. History obtained from or confirmed by: EMS External Record Review External record reviewed: Outpatient record Medications Administered Generic Name Dose Route Start Last Admin Trade Name Freq PRN Reason Stop Dose Admin Acetaminophen 1,000 mg in 100 mls @ 400 mls/hr 04/26/24 02:15 04/26/24 02:31 Ofirmev IV 400 mls/hr Q6H YOLETTE Administration Discontinued Medications Generic Name Dose Route Start Last Admin Trade Name Freq PRN Reason Stop Dose Admin Hydrocortisone Sodium Succinate 100 mg 04/25/24 22:07 04/25/24 22:42 Hydrocortisone Sod Succ/Pf 100 Mg Vial IVPUSH 04/25/24 22:08 100 mg ONCE ONE Administration Sodium Chloride 2,190 mls @ 2,190 mls/hr 04/25/24 22:43 04/26/24 01:45 Ns IV 04/25/24 23:42 Infused .Q1H STA Infusion Piperacillin Sod/Tazobactam 50 mls @ 100 mls/hr 04/25/24 23:12 04/26/24 01:45 Sod 3.375 gm/ Sodium Chloride IV 04/25/24 23:41 Infused ONCE ONE Infusion Iohexol 85 ml 04/26/24 00:10 04/26/24 00:11 Iohexol 350 Mg/Ml 100 Ml Infus..Btl IV 04/26/24 00:11 85 ml ONCE ONE Administration Lidocaine HCl 15 ml 04/26/24 00:55 04/26/24 01:46 Lidocaine Hcl Viscous 2 % 15 Ml Solution MUCOUS MEM 04/26/24 00:56 15 ml ONCE ONE Administration Critical Care Time Critical Care Time Critical Care Time: Yes Total Critical Care Time: 40 Attestation: I personally attest to this critical care time spent taking care of the patient exclusive of all other billable procedures was approximately 40 minutes including initial evaluation of patient, ordering tests, CT interpretation, hypotensive management, medical consultation, documentation, re-evaluation. Discharge Plan Discharge Clinical Impression: Small bowel obstruction Patient Disposition: Still a Patient Prescriptions: No Action ferrous sulfate 325 mg (65 mg iron) tablet 325 mg PO DAILY docusate sodium 100 mg capsule 100 mg PO BID PRN (Reason: Constipation) folic acid 1 mg tablet 1 mg PO DAILY cyanocobalamin (vitamin B-12) [Vitamin B-12] 1,000 mcg Tablet 1,000 mcg PO DAILY levofloxacin 500 mg tablet 500 mg PO Q24H 10 Days Qty: 10 0RF potassium chloride [Klor-Con M20] 20 mEq tablet,ER particles/crystals 40 meq PO BID 30 Days Qty: 120 0RF finasteride [Proscar] 5 mg tablet 5 mg PO DAILY 90 Days Qty: 90 0RF tamsulosin 0.4 mg capsule 0.4 mg PO BEDTIME Qty: 90 0RF calcium carbonate-vitamin D3 250 mg-3.125 mcg (125 unit) tablet 2 tab PO BID 90 Days Qty: 360 0RF Xarelto 20 mg tablet 20 mg PO DAILY@1700 Rx Instructions: must administer with evening meal cholecalciferol (vitamin D3) [Vitamin D3] 25 mcg (1,000 unit) Tablet 25 mcg PO DAILY magnesium oxide 400 mg (241.3 mg magnesium) tablet 800 mg PO BID Print Language: Lithuanian
[2024-04-25 22:04] VITALS: BP 66/45
[2024-04-25 22:06] VITALS: BMI 36.0
[2024-04-25 22:16] VITALS: BP 86/67
[2024-04-25 22:16] LABS: Glucose, Whole Blood 151 mg/dL (60-115)
[2024-04-25 22:19] LABS: MANUAL DIFF FLAG NO
[2024-04-25 22:23] LABS: Basophils Percent Auto 0.2 % (0-2); Eosinophils Percent Auto 0.1 % (0-4); Hematocrit 49.4 % (42.0-52.0); Hemoglobin 16.1 g/dl (14.0-18.0); Imm Gran Abs Auto 0.04 X10*3/uL (0.00-0.03); Imm Gran Pct Auto 0.5 % (0.0-0.4); Lymphocytes Absolute Auto 1.7 X10*3/uL (1.2-4.9); Lymphocytes Percent Auto 20.3 % (20-40); Mean Corpuscular HGB Conc 32.6 g/dl (31.0-36.0); Mean Corpuscular Hemoglobin 27.3 pg (27.0-33.0); Mean Corpuscular Volume 83.7 fL (80.0-98.0); Mean Platelet Volume 9.5 fL (9.4-12.4); Monocytes Absolute Auto 0.6 X10*3/uL (0.1-1.2); Monocytes Percent Auto 6.8 % (2-11); Neutrophils Percent Auto 72.1 % (45-73); Platelet Count 567 X10*3/uL (160-400); Red Cell Distribution Width 14.8 % (11.0-16.0); White Blood Count 8.3 X10*3/uL (4.8-10.8)
[2024-04-25 22:27] LABS: Prothrombin Time 12.1 SEC (10.9-12.4)
[2024-04-25 22:41] LABS: Albumin Level 4.6 g/dL (3.5-5.0); Alkaline Phosphatase 112 U/L (39-117); Anion Gap 16 (12-20); Aspartate Amino Transferase 26 U/L (5-37); Bilirubin Total 0.7 mg/dL (0.0-1.0); Blood Urea Nitrogen 17 mg/dL (9-16); Calcium 11.1 mg/dL (8.4-10.2); Carbon Dioxide 22 mmol/L (22-29); Chloride 99 mmol/L (96-108); Creatinine Clr Calc Pharmacy 104.1; Estimated Glomerular Filt Rate > 60; Glucose Random 183 mg/dL (60-115); Lipase 6 U/L (8-78); Potassium 3.2 mmol/L (3.3-5.1); Sodium 134 mmol/L (135-145); Total Protein 10.2 g/dL (6.5-8.0)
[2024-04-25 22:42] LABS: Lactic Acid 2.6 mmol/L (0.5-2.0)
[2024-04-25] MEDS: Hydrocortisone Sod Succ/PF 100 MG VIAL IVPUSH (22:42)
--- NOTE | 2024-04-25 22:43 | PC.NURSE ---
lactic value rec 2.6- AGRICULTURAL INSPECTOR Barcome and Primary RN notified via [employer]
[2024-04-25] MEDS: 0.9 % Sodium Chloride 2,190 ML 2190 ML IV (22:44)
[2024-04-25 22:54] LABS: Alanine Aminotransferase 47 U/L (0-40)
[2024-04-25 23:00] LABS: B Type Natriuretic Peptide < 10 pg/mL (<100)
[2024-04-25 23:06] LABS: Influenza A PCR NEGATIVE (Negative); Influenza B PCR NEGATIVE (Negative); Resp Syncy Virus RNA Qual PCR NEGATIVE (Negative); SARS COV2 PCR INHOUSE NEGATIVE (Negative)
[2024-04-25 23:16] VITALS: BP 95/65; PULSE 98; RESP 14; TEMP 36.6; O2SAT 96
[2024-04-26] VITALS (9 sets, daily range): BP systolic 99–121; BP diastolic 65–90; PULSE 89–111; RESP 14–20; TEMP 36.9–37.4; O2SAT 95–98; BMI 30.4
[2024-04-26] MEDS: Piperacillin Sodium/Tazobactam 3.375 GM in 0.9 % Sodium Chloride 50 ML IV
[2024-04-26] MEDS: iohexoL 350 MG/ML 100 ML INFUS..BTL 85 ML IV (00:11)
[2024-04-26 00:18] LABS: Reflex Lactate? Lactic Acid Added
[2024-04-26 01:15] LABS: ~Lactic Acid-LAB USE ONLY 1.9 mmol/L (0.5-2.0)
[2024-04-26] MEDS: Lidocaine HCl Viscous 2 % 15 ML SOLUTION MUCOUS MEM (01:46)
--- NOTE | 2024-04-26 02:20 | PM.IMHP ---
History of Present Illness Date of Service: 04/26/24 Attending physician on admission: Venita Valle Chief Complaint: abd pain, nausea, vomiting Pt is a 53 yo male with a pmhx significant for long segment SBO s/p resection secondary to ischemic bowel in 07/[address] Brasher, DVT/PE on Xarelto (last dose 04/24 PM), guillian barre with IVIG infusions monthly (last 2 weeks ago with 60mg PO prednisone a few days prior), who presented to the ED RLQ pain, nausea and vomiting x15 hours. No hematemesis or coffee ground emesis, all liquid vomit. Last BM was yesterday and has been able to pass gas. No fever or chills but did have sweats yesterday. No chest pain, SOB, or LE edema. Review of Systems Constitutional: Constitutional: Denies chills, Denies fatigue, Denies fever(s) and Denies headache(s) Eyes: Eyes: Denies change in vision ENT: Denies headache(s), Denies nasal congestion, Denies nasal discharge and Denies sore throat Cardiovascular: Cardiovascular: Denies chest pain, Denies rapid heart rate, Denies pedal edema, Denies lightheadedness and Denies dyspnea Respiratory: Respiratory: Denies chest congestion, Denies cough, Denies dyspnea and Denies wheezing Gastrointestinal: Gastrointestinal: Denies coffee ground emesis, Denies constipation, Denies diarrhea, Reports nausea, Reports vomiting and Denies hematemesis Genitourinary: Genitourinary: Denies dysuria, Denies urinary incontinence and Denies urinary urgency Musculoskeletal: Musculoskeletal: Denies muscle weakness Integumentary/Breasts: Skin/Breast: Denies rash Neurologic: Denies confusion and Denies headache(s) Psychiatric: Psychiatric: Denies confusion Endocrine: Endocrine: Denies fatigue Hematologic/Lymphatic: Hematologic/Lymphatic: Denies easy bleeding and Denies easy bruising Allergic/Immunologic: Allergic/Immunologic: Denies wheezing [facility] Medical History (Updated 04/26/24 @ 02:38 by Tonya Goyal PA-C) Morbid obesity Abdominal pain 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 Femur fracture, right DVT (deep venous thrombosis) Pulmonary embolism Functional capacity: wheelchair bound Surgical History History of abdominal surgery (~10/2023) Status post small bowel resection H/O hand surgery Social History Household Members: Significant Other Housing: House Do you presently have visiting nurse or other home services: No Alcohol intake: current Alcohol intake frequency: a few times a week Patient Tobacco Use Status: Former Tobacco user Tobacco use type: Cigarette Substance Use Type: Marijuana Advance Directives: Yes Advance Directives on File: Yes Advance Directives Date on File: 08/06/23 Do you have a plan to hurt others: No Plan service: No Meds Allergies Allergy/AdvReac Type Severity Reaction Status Date / Time No Known Allergies Allergy Verified 04/25/24 22:07 Active Medications: Current Medications Acetaminophen (Acetaminophen 325 Mg Tablet) 650 mg PO Q6H PRN PRN Reason: Pain, Mild (Pain Scale 1-3), fever or headache Calcium Carbonate (Calcium Carbonate 750 Mg Tab.Chew) 750 mg PO Q4H PRN PRN Reason: Heartburn Potassium Chloride/Dextrose/Sod Cl (Kcl 40 Meq In 5% Dex/0.9% Sod) 40 meq in 1,000 mls @ 125 mls/hr IVCONT .Q8H [facility] Acetaminophen (Ofirmev) 1,000 mg in 100 mls @ 400 mls/hr IV Q6H [facility] Ketorolac Tromethamine (Ketorolac Tromethamine 30 Mg/Ml Vial) 30 mg IVPUSH Q6H PRN PRN Reason: Pain, Moderate(Pain Scale 4-6) Stop: 05/01/24 02:11 Magnesium Hydroxide (Milk Of Magnesia 30 Ml Oral.Susp) 30 ml PO DAILY PRN PRN Reason: Constipation Melatonin (Melatonin 3 Mg Tablet) 6 mg PO BEDTIME PRN PRN Reason: Insomnia Ondansetron HCl (Ondansetron Hcl 4 Mg/2 Ml Vial) 4 mg IVPUSH Q8H PRN PRN Reason: Nausea and Vomiting Pantoprazole Sodium (Pantoprazole Sodium 40 Mg/10 Ml Vial) 40 mg IVPUSH BID@0630,1630 [facility] Sodium Chloride (0.9 % Sodium Chloride Flush 3 Ml Syringe) 3 ml IVFLUSH QSHIFT [facility] Home Medications ?Medication ?Instructions ?Recorded ?Confirmed ?Last Taken ?Type rivaroxaban 20 mg tablet (Xarelto) 20 mg PO DAILY@1700 10/18/23 03/06/24 03/05/24 History cholecalciferol (vitamin D3) 25 25 mcg PO DAILY 10/19/23 03/06/24 03/06/24 History mcg (1,000 unit) tablet (Vitamin D3) cyanocobalamin (vitamin B-12) 1,000 mcg PO DAILY 03/06/24 03/06/24 03/06/24 History 1,000 mcg tablet (Vitamin B-12) docusate sodium 100 mg capsule 100 mg PO BID PRN Constipation 03/06/24 03/06/24 Unknown History ferrous sulfate 325 mg (65 mg 325 mg PO DAILY 03/06/24 03/06/24 03/06/24 History iron) tablet folic acid 1 mg tablet 1 mg PO DAILY 03/06/24 03/06/24 03/06/24 History magnesium oxide 400 mg (241.3 mg 800 mg PO BID 03/21/24 03/21/24 Unknown History magnesium) tablet Physical Exam Vital Signs and Narrative: Vital Signs: Last Vital Signs Temp 97.9 F 04/25/24 23:16 Pulse 89 04/26/24 01:46 Resp 20 04/26/24 01:46 BP 121/86 04/26/24 01:46 Pulse Ox 96 04/26/24 01:46 O2 Del Method Room Air 04/26/24 01:46 BMI result Body Mass Index 36.0 General: AOx3, no acute distress Resp: CTA bilaterally CVS: S1, S2, RRR GI: +BS, tender lower abd, no distention Skin: Warm, dry Extremities: No pitting edema Psych: Appropriate affect Const: General: No confusion Orientation/consciousness: No confusion Neuro: General: No confusion Results Labs 04/25/24 22:07 04/25/24 22:07 Labs: Laboratory Results - last 24 hr 04/25/24 04/25/24 04/25/24 22:03 22:07 22:08 MCV 83.7 MCH 27.3 MCHC 32.6 RDW 14.8 Plt Count 567 H D MPV 9.5 Immature Gran % (Auto) 0.5 H Neut % (Auto) 72.1 Lymph % (Auto) 20.3 [place] % (Auto) 6.8 Eos % (Auto) 0.1 Baso % (Auto) 0.2 Lymph # (Auto) 1.7 [place] # (Auto) 0.6 Eos # (Auto) 0.0 Baso # (Auto) 0.0 Abs Immat Gran (auto) 0.04 H Absolute Neuts (auto) 6.0 Absolute Nucleated RBC 0.000 Nucleated RBC % (auto) 0.0 PT 12.1 INR 1.0 D Anion Gap 16 Estim Creat Clear Calc 104.1 Estimated GFR > 60 POC Glucose 151 H Random Glucose 183 H Lactic Acid 2.6 H* Lactic Acid F/U @ 2Hr Calcium 11.1 H D Magnesium 2.0 Total Bilirubin 0.7 AST 26 ALT 47 H Alkaline Phosphatase 112 Troponin I High Sens 3.0 D B-Natriuretic Peptide < 10 Total Protein 10.2 H Albumin 4.6 Lipase 6 L Influenza Type A (PCR) NEGATIVE Influenza Type B (PCR) NEGATIVE RSV RNA Qual (PCR) NEGATIVE SARS-CoV-2 RNA (RT-PCR) NEGATIVE 04/26/24 00:57 MCV MCH MCHC RDW Plt Count MPV Immature Gran % (Auto) Neut % (Auto) Lymph % (Auto) [place] % (Auto) Eos % (Auto) Baso % (Auto) Lymph # (Auto) [place] # (Auto) Eos # (Auto) Baso # (Auto) Abs Immat Gran (auto) Absolute Neuts (auto) Absolute Nucleated RBC Nucleated RBC % (auto) PT INR Anion Gap Estim Creat Clear Calc Estimated GFR POC Glucose Random Glucose Lactic Acid Lactic Acid F/U @ 2Hr 1.9 Calcium Magnesium Total Bilirubin AST ALT Alkaline Phosphatase Troponin I High Sens B-Natriuretic Peptide Total Protein Albumin Lipase Influenza Type A (PCR) Influenza Type B (PCR) RSV RNA Qual (PCR) SARS-CoV-2 RNA (RT-PCR) Imaging Radiologist's Impressions: Impressions Abdomen/Pelvis CT 04/25/24 23:35 IMPRESSION: High-grade small bowel obstruction with transition point in the right mid abdomen where there are apparent surgical clips and a near-complete twist of the associated mesentery and infiltrative change within the associated mesentery. Fleischner guidelines were followed. Electronically signed by: Jimenez Campos MD 04/26/2024 12:29 AM [facility] Assessment and Plan (1) Small bowel obstruction: Status: Acute (2) Acute hypokalemia: Status: Acute (3) Morbid obesity: Status: Chronic Plan Pt is a 53 yo male with a pmhx significant for long segment SBO s/p resection secondary to ischemic bowel in 07/[address] Brasher, 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 CT with high grade SBO R mid abdomen. Hypotensive but responsive to 2L of fluids. SBO/ hx long segment SBO s/p resection secondary to ischemic bowel in 07/[address] Brasher - NG tube placed in ED - stat surgical consult - NPO - IV protonix - IV tylenol and torodol PRN for pain - avoid opioids which could worsen SBO hypokalemia - KCl 40meq/D5/NS - monitor BMP hypotension - responsive to IVF, continue fluids as above - given stress dose of hydrocortisone in ED, given that last steroids were 2 weeks ago no further steroids needed hx DVT/PE - on xarelto, last dose 04/24 in the afternoon, will hold for now pending surgical consult, resume when appropriate Guillain Fremont - IVIG monthly, last 2 weeks ago full code VTE prophy: pneumoboots pending surgical eval, will need to resume xarelto when appropriate Pt with SBO complicated by hypotension and hypokalemia likely from GI losses, requiring admission for possible surgery and monitoring for at least 2 midnights stay. Quality Stroke Does the patient have a stroke diagnosis?: No VTE Prior VTE?: Yes VTE Risk Level:: Medical - moderate - high VTE Device Contraindication: N/A - Device Ordered VTE Drug Contraindication: Treatment Not Indicated
[2024-04-26] MEDS: Acetaminophen 1,000 MG/100 ML PIGGYBACK 400 MG IV ×3 (02:31→14:13)
[2024-04-26] MEDS: KCl 40 mEq in 5% Dex/0.9% Sod 40 MEQ/1,000 ML IV.SOLN 125 MEQ IVCONT ×3 (03:08→21:20)
[2024-04-26 04:47] LABS: MANUAL DIFF FLAG NO
[2024-04-26 04:48] LABS: Basophils Percent Auto 0.2 % (0-2); Eosinophils Percent Auto 0.1 % (0-4); Hematocrit 45.5 % (42.0-52.0); Hemoglobin 14.6 g/dl (14.0-18.0); Imm Gran Abs Auto 0.02 X10*3/uL (0.00-0.03); Imm Gran Pct Auto 0.2 % (0.0-0.4); Lymphocytes Absolute Auto 1.1 X10*3/uL (1.2-4.9); Lymphocytes Percent Auto 12.8 % (20-40); Mean Corpuscular HGB Conc 32.1 g/dl (31.0-36.0); Mean Corpuscular Hemoglobin 27.6 pg (27.0-33.0); Mean Platelet Volume 10.3 fL (9.4-12.4); Monocytes Absolute Auto 0.3 X10*3/uL (0.1-1.2); Monocytes Percent Auto 3.6 % (2-11); Neutrophils Absolute Auto 6.9 x10*3/uL (2.0-8.3); Neutrophils Percent Auto 83.1 % (45-73); Platelet Count 371 X10*3/uL (160-400); Red Blood Count 5.29 X10*6/uL (4.60-5.80); Red Cell Distribution Width 14.8 % (11.0-16.0); White Blood Count 8.3 X10*3/uL (4.8-10.8)
[2024-04-26 05:09] LABS: Anion Gap 17 (12-20); Blood Urea Nitrogen 21 mg/dL (9-16); Calcium 9.6 mg/dL (8.4-10.2); Carbon Dioxide 19 mmol/L (22-29); Chloride 104 mmol/L (96-108); Creatinine Clr Calc Pharmacy 128.3; Estimated Glomerular Filt Rate > 60; Glucose Random 150 mg/dL (60-115); Magnesium 1.9 mg/dL (1.6-2.6); Potassium 4.1 mmol/L (3.3-5.1); Sodium 136 mmol/L (135-145)
[2024-04-26] MEDS: Pantoprazole Sodium 40 MG/10 ML VIAL IVPUSH ×2 (07:10→18:22)
--- NOTE | 2024-04-26 08:12 | P.CONGS_ITS ---
History of Present Illness Consult details Consult date: 04/26/24 Narrative: 53-year-old male, chronically bed-bound with Guillain [place] syndrome, morbidly obese, admitted last night because of abdominal pain and vomiting. He is well known to me. He had undergone laparotomy and bowel resection for a long ischemic segment with perforation last July,. He was in the hospital for a long period of time postop because of partial small-bowel obstruction because of appears to be stenosis in the area of the resection and anastomosis. He actually has been doing well at home since discharge last August. However, yesterday, he describes having abdominal pain and multiple episodes of vomiting. He says that he continued to have bowel movements yesterday and recalls flatus even up to last night However in view of his pain and vomiting, he came to the ER last night. He currently feels much better now and says that he has abdominal pain has resolved. 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 He is on IVIG. He has poor mobility had been aggravated by a hip fracture 2021 and since then, he has had much less ability to get out of bed. He does state that he is able to transfer by himself from the bed to his wheelchair. He has morbid obese but says that he has lost about 30 lbs since July,. He otherwise says she has had good oral intake. Review of Systems 2 Constitutional: Constitutional: Denies chills and Denies fever(s) Cardiovascular: Cardiovascular: Denies chest pain at rest and Reports dyspnea on exertion Respiratory: Respiratory: Denies cough and Reports dyspnea on exertion Gastrointestinal: Gastrointestinal: Denies hematochezia and Reports vomiting Genitourinary: Genitourinary: Denies difficulty urinating Musculoskeletal: Musculoskeletal: Reports muscle weakness (Chronic) [facility] Past Medical History Medical History (Updated 04/26/24 @ 02:38 by Tonya Goyal PA-C) Morbid obesity Abdominal pain Guillain-Carthage syndrome Femur fracture, right DVT (deep venous thrombosis) Pulmonary embolism Surgical History Surgical History History of abdominal surgery (~10/2023) Status post small bowel resection H/O hand surgery Social History Social History Household Members: Family Housing: House Do you presently have visiting nurse or other home services: No ([employer] 21/12) Alcohol intake: current Alcohol intake frequency: a few times a week Comment: wheelchair bound at baseline Patient Tobacco Use Status: Former Tobacco user Tobacco use type: Cigarette Substance Use Type: Marijuana Advance Directives Date on File: 08/06/23 service: No Meds Allergies Allergy/AdvReac Type Severity Reaction Status Date / Time No Known Allergies Allergy Verified 04/25/24 22:07 Active Medications: Current Medications Acetaminophen (Acetaminophen 325 Mg Tablet) 650 mg PO Q6H PRN PRN Reason: Pain, Mild (Pain Scale 1-3), fever or headache Calcium Carbonate (Calcium Carbonate 750 Mg Tab.Chew) 750 mg PO Q4H PRN PRN Reason: Heartburn Potassium Chloride/Dextrose/Sod Cl (Kcl 40 Meq In 5% Dex/0.9% Sod) 40 meq in 1,000 mls @ 125 mls/hr IVCONT .Q8H [facility] Last Admin: 04/26/24 03:08 Dose: 125 mls/hr Acetaminophen (Ofirmev) 1,000 mg in 100 mls @ 400 mls/hr IV Q6H [facility] Last Infusion: 04/26/24 03:07 Dose: Infused Ketorolac Tromethamine (Ketorolac Tromethamine 30 Mg/Ml Vial) 30 mg IVPUSH Q6H PRN PRN Reason: Pain, Moderate(Pain Scale 4-6) Stop: 05/01/24 02:11 Magnesium Hydroxide (Milk Of Magnesia 30 Ml Oral.Susp) 30 ml PO DAILY PRN PRN Reason: Constipation Melatonin (Melatonin 3 Mg Tablet) 6 mg PO BEDTIME PRN PRN Reason: Insomnia Ondansetron HCl (Ondansetron Hcl 4 Mg/2 Ml Vial) 4 mg IVPUSH Q8H PRN PRN Reason: Nausea and Vomiting Pantoprazole Sodium (Pantoprazole Sodium 40 Mg/10 Ml Vial) 40 mg IVPUSH BID@0630,1630 [facility] Last Admin: 04/26/24 07:10 Dose: 40 mg Sodium Chloride (0.9 % Sodium Chloride Flush 3 Ml Syringe) [facility] Medications ?Medication ?Instructions ?Recorded ?Confirmed ?Last Taken ?Type rivaroxaban 20 mg tablet (Xarelto) 20 mg PO DAILY@1700 10/18/23 04/26/24 04/24/24 History cyanocobalamin (vitamin B-12) 1,000 mcg PO DAILY 03/06/24 04/26/24 04/24/24 History 1,000 mcg tablet (Vitamin B-12) ferrous sulfate 325 mg (65 mg 325 mg PO DAILY 03/06/24 04/26/24 04/24/24 History iron) tablet folic acid 1 mg tablet 1 mg PO DAILY 03/06/24 04/26/24 04/24/24 History magnesium oxide 400 mg (241.3 mg 800 mg PO BID 03/21/24 04/26/24 04/24/24 History magnesium) tablet Physical Exam 2 Vital Signs: Vital Signs: Last Vital Signs Temp 97.9 F 04/25/24 23:16 Pulse 111 H 04/26/24 05:48 Resp 18 04/26/24 05:48 BP 102/71 04/26/24 05:48 Pulse Ox 95 04/26/24 05:48 O2 Del Method Room Air 04/26/24 05:48 BMI result Body Mass Index 36.0 Const: Other: Morbidly obese, looks well now General: comfortable and no acute distress Resp: Effort & Inspection: normal respiratory effort Cardio: Rate: regular rate GI: Other: Obese Palpation (GI): Soft to palpation, not firm, nontender and no guarding Results Labs 05/01/24 05:47 05/01/24 05:47 Labs: Abnormal lab results 04/25/24 04/25/24 04/25/24 Range/Units 22:03 22:07 22:08 RBC 5.90 H D (4.60-5.80) X10*6/uL Plt Count 567 H D (160-400) X10*3/uL Immature Gran % (Auto) 0.5 H (0.0-0.4) % Neut % (Auto) (45-73) % Lymph % (Auto) (20-40) % Lymph # (Auto) (1.2-4.9) X10*3/uL Abs Immat Gran (auto) 0.04 H (0.00-0.03) X10*3/uL Sodium 134 L (135-145) mmol/L Potassium 3.2 L (3.3-5.1) mmol/L Carbon Dioxide (22-29) mmol/L BUN 17 H (9-16) mg/dL POC Glucose 151 H (60-115) mg/dL Random Glucose 183 H (60-115) mg/dL Lactic Acid 2.6 H* (0.5-2.0) mmol/L Calcium 11.1 H D (8.4-10.2) mg/dL ALT 47 H (0-40) U/L Total Protein 10.2 H (6.5-8.0) g/dL Lipase 6 L (8-78) U/L 04/26/24 Range/Units 04:42 RBC (4.60-5.80) X10*6/uL Plt Count (160-400) X10*3/uL Immature Gran % (Auto) (0.0-0.4) % Neut % (Auto) 83.1 H (45-73) % Lymph % (Auto) 12.8 L (20-40) % Lymph # (Auto) 1.1 L (1.2-4.9) X10*3/uL Abs Immat Gran (auto) (0.00-0.03) X10*3/uL Sodium (135-145) mmol/L Potassium (3.3-5.1) mmol/L Carbon Dioxide 19 L (22-29) mmol/L BUN 21 H (9-16) mg/dL POC Glucose (60-115) mg/dL Random Glucose 150 H (60-115) mg/dL Lactic Acid (0.5-2.0) mmol/L Calcium (8.4-10.2) mg/dL ALT (0-40) U/L Total Protein (6.5-8.0) g/dL Lipase (8-78) U/L Short CBC 04/25/24 04/26/24 Range/Units 22:07 04:42 WBC 8.3 8.3 (4.8-10.8) X10*3/uL Hgb 16.1 D 14.6 (14.0-18.0) g/dl Hct 49.4 D 45.5 (42.0-52.0) % Plt Count 567 H D 371 D (160-400) X10*3/uL BMP 04/25/24 04/26/24 22:07 04:42 Sodium 134 L 136 Potassium 3.2 L 4.1 D Chloride 99 104 Carbon Dioxide 22 19 L BUN 17 H 21 H Creatinine 1.06 0.86 Calcium 11.1 H D 9.6 D Liver Function 04/25/24 Range/Units 22:07 Total Bilirubin 0.7 (0.0-1.0) mg/dL AST 26 (5-37) U/L ALT 47 H (0-40) U/L Alkaline Phosphatase 112 (39-117) U/L Albumin 4.6 (3.5-5.0) g/dL All other labs normal. Imaging Abdomen CT scan report/results: report reviewed and image reviewed CT scan - pelvis: report reviewed and image reviewed Assessment and Plan (1) Small bowel obstruction: Status: Acute 53-year-old male, morbidly obese, with Guillain-Carthage syndrome, admitted for abdominal pain and vomiting. He had an NG tube placed as his CAT scan had suggested high-grade obstruction. This is likely due to his history of ischemia of the small bowel, with stenosis of a previous anastomosis for resection last July, . I have reviewed his CAT scan and this does show markedly dilated small bowel loops her incision with point in the he had abdomen near the anastomosis along with a suggestion of a near complete twist in the mesentery. An NG tube placed. However, he sad he has felt much better even prior to having the NG tube placed. He feels well this morning and denies any significant pain. He is nontender on examination and clinically looks well. Keep the NG tube in place for now. He had some hypokalemia on admission likely due to his GI losses with vomiting and this has been repleted He would be adequately hydrated with IV fluids. His exam is otherwise benign. I did explain to him that his CT scan findings concerning although clinically he is much improved. He does understand that he there was always the possibility of him requiring surgical intervention if he clinically worsens. He has a history of DVT and PEs in the past but his Xarelto is on hold at this time. We will monitor him closely while he is in the hospital. Procedures Date of Service Date of Service: 05/01/24
--- NOTE | 2024-04-26 08:20 | PC.NURSE ---
General Surgery Dr. Brasher at bedside. Attempt to flush Pts IV access with difficulty. Two attempts to place new IV access without success . Pt will be transferred to ED Overflow unit RN report completed, RN made aware.
--- NOTE | 2024-04-26 08:25 | PHA.MEDREC ---
Addendum entered by Danielle Gutierrez RPh 04/26/24 08:50: [facility] reviewed Original Note: Pharmacy Consult ? Medication Reconciliation Pharmacy has completed the medication reconciliation. Patient confirmed medications. He confirmed he finished his Prednisone 20mg regimen a little over a week ago and he finished the Levofloxacin 500mg tabs in the last week. He confirmed he took his medications last on Wednesday.
--- NOTE | 2024-04-26 10:20 | PC.NURSE ---
pt is alert and oriented, skin appropriate for ethnicity, respirations even and unlabored, ng-tube in place and draining well with yellow/greenish fluids, pt is reporting abd pain at 2/10 pt moved over to overflow this morning and IV in the left ac was not functioning- previous rn attempted to gain another iv access but unsuccessful, this rn was able to obtian another iv access but there is delay in Tylenol administration and Potassium.fluids infusion
[2024-04-26 13:42] LABS: Appearance Urine Cloudy; Color Urine Dark Yellow; Glucose Urine UA Negative (Negative); Leukocyte Esterase Urine Negative (Negative); Nitrite Urine Negative (Negative); PH 5.5 (5.0-9.0); Specific Gravity - Urine >= 1.030 (1.005-1.025); Urine Blood Negative (Negative); Urine Ketones Negative (Negative); Urine Protein Trace mg/dL (Neg-Trace)
--- NOTE | 2024-04-26 13:56 | MHC.CM.PN ---
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
--- NOTE | 2024-04-26 14:33 | PM.EVENT ---
Event Note Date of Service: 04/26/24 Event Note: Seen on afternoon rounds He continues to feel well He denies any abdominal pain Stable vital signs Looks comfortable Abdomen is soft, no guarding, no tenderness, no rebound Morbidly obese Continue NG tube decompression CT scan findings concerning but clinically he looks well IV fluid Exam very benign Time Spent With Patient Time: Total time managing care of this patient today ____ minutes.
--- NOTE | 2024-04-26 16:49 | PC.NURSE ---
current IVF still infusing at this time d/t previous IV access being positioned up against a valve. IVF infusing w/o complications after previous RN placed another IV access. central supply called as new bag of IVF will be needed shortly. central supply not available at this time - voicemail left. will reattempt.
--- NOTE | 2024-04-26 18:24 | PC.NURSE ---
delay in medication/IVF d/t fluids not being readily available. IVF delivered by nursing hand silvering supervisor/administered per provider order. pt continues to rest comfortably in no apparent distress. denies abd pain. no episodes of n/v noted. gastric content noted to be brown/yellow in nature. NG tube remains patent/intact.
[2024-04-26 20:07] LABS: Anion Gap 20 (12-20); Blood Urea Nitrogen 27 mg/dL (9-16); Calcium 9.4 mg/dL (8.4-10.2); Carbon Dioxide 20 mmol/L (22-29); Chloride 106 mmol/L (96-108); Estimated Glomerular Filt Rate > 60; Glucose Random 139 mg/dL (60-115); Potassium 3.8 mmol/L (3.3-5.1); Sodium 142 mmol/L (135-145)
[2024-04-26] MEDS: Heparin Sodium,Porcine 5,000 UNIT/ML VIAL 5000 UNIT SUBCUT (21:12)
[2024-04-26] MEDS: Ketorolac Tromethamine 30 MG/ML VIAL IVPUSH (23:56)
[2024-04-27] MEDS: Acetaminophen 1,000 MG/100 ML PIGGYBACK 400 MG IV ×3 (01:47→13:44)
[2024-04-27 03:23] VITALS: BP 94/70; PULSE 75; RESP 16; TEMP 36; O2SAT 96
[2024-04-27] MEDS: KCl 40 mEq in 5% Dex/0.9% Sod 40 MEQ/1,000 ML IV.SOLN 125 MEQ IVCONT ×3 (05:29→21:06)
[2024-04-27] MEDS: Pantoprazole Sodium 40 MG/10 ML VIAL IVPUSH ×2 (05:30→17:07)
--- NOTE | 2024-04-27 06:10 | PM.EVENT ---
Event Note Date of Service: 03/26/24 Event Note: pt seen, labs, med, imaging reviewed. NGT was still draining. Labs repeat K ok, continued fluid. Surgery following. A/P per H and p, surgery eval Time Spent With Patient Time: Total time managing care of this patient today ____ minutes.
[2024-04-27 06:33] LABS: MANUAL DIFF FLAG NO
[2024-04-27 06:37] LABS: Basophils Percent Auto 0.4 % (0-2); Eosinophils Percent Auto 0.3 % (0-4); Hematocrit 43.6 % (42.0-52.0); Hemoglobin 14.2 g/dl (14.0-18.0); Imm Gran Abs Auto 0.02 X10*3/uL (0.00-0.03); Imm Gran Pct Auto 0.3 % (0.0-0.4); Lymphocytes Absolute Auto 1.9 X10*3/uL (1.2-4.9); Lymphocytes Percent Auto 25.4 % (20-40); Mean Corpuscular HGB Conc 32.6 g/dl (31.0-36.0); Mean Corpuscular Hemoglobin 27.7 pg (27.0-33.0); Mean Corpuscular Volume 85.2 fL (80.0-98.0); Mean Platelet Volume 10.2 fL (9.4-12.4); Monocytes Absolute Auto 0.8 X10*3/uL (0.1-1.2); Monocytes Percent Auto 11.3 % (2-11); Neutrophils Absolute Auto 4.6 x10*3/uL (2.0-8.3); Neutrophils Percent Auto 62.3 % (45-73); Platelet Count 467 X10*3/uL (160-400); Red Blood Count 5.12 X10*6/uL (4.60-5.80); Red Cell Distribution Width 15.1 % (11.0-16.0); White Blood Count 7.4 X10*3/uL (4.8-10.8)
[2024-04-27 06:57] LABS: Anion Gap 15 (12-20); Blood Urea Nitrogen 31 mg/dL (9-16); Calcium 9.2 mg/dL (8.4-10.2); Carbon Dioxide 21 mmol/L (22-29); Chloride 109 mmol/L (96-108); Creatinine Clr Calc Pharmacy 120.8; Estimated Glomerular Filt Rate > 60; Glucose Random 139 mg/dL (60-115); Magnesium 1.9 mg/dL (1.6-2.6); Sodium 141 mmol/L (135-145)
[2024-04-27 08:00] VITALS: BP 108/59; PULSE 88; RESP 18; O2SAT 98
[2024-04-27] MEDS: Heparin Sodium,Porcine 5,000 UNIT/ML VIAL 5000 UNIT SUBCUT ×2 (08:43→19:02)
--- NOTE | 2024-04-27 09:52 | PC.NURSE ---
Addendum entered by Joann Chavarria RN 04/27/24 11:02: MD Cadena at bedside for morning rounds, per MD, Images show NGT in correct place. NGT flushed and aspirated. Immediately 1,300ml of yellow brown liquid drained into canister. Pt tolerated well, states I feel much better now . NGT marked with sharpie at opening of left nare. MD Sabillon notified. Original Note: 200ml yellow cloudy emesis noted, MD Chase notified, STAT KUB ordered. Pt continues to have NGT in place to intermittent suction. Pt states nausea comes in waves and is declining nausea medication at this time.
--- NOTE | 2024-04-27 13:21 | HO.PM.IMPN ---
Subjective Subjective Date of Service: 04/27/24 Interval History: Episode of vomiting this a.m.. KUB reviewed .. NG tube appears up against gastric wall. Flush and reposition. Proximally 1 L drained. Patient noted improvement Review of Systems Denies chest pain Denies shortness of breath Denies nausea vomiting diarrhea Denies fever chills Physical Exam Vital Signs: Vital Signs: Last Vital Signs Temp 96.8 F 04/27/24 03:23 Pulse 88 04/27/24 08:00 Resp 18 04/27/24 08:00 BP 108/59 L 04/27/24 08:00 Pulse Ox 98 04/27/24 08:00 O2 Del Method Room Air 04/27/24 08:00 BMI result Body Mass Index 30.4 Const: Other: Awake alert no acute distress Resp: Other: Clear to auscultation bilaterally no rales rhonchi or wheezes Cardio: Other: No S4; positive S1-S2; no S3 murmurs rubs or gallops GI: Other: Soft/quiet. NG tube draining yellow liquid Extrem: Other: No edema bilateral Objective Data Active Medications Acetaminophen (Acetaminophen 325 Mg Tablet) 650 mg PO Q6H PRN PRN Reason: Pain, Mild (Pain Scale 1-3), fever or headache Calcium Carbonate (Calcium Carbonate 750 Mg Tab.Chew) 750 mg PO Q4H PRN PRN Reason: Heartburn Heparin Sodium (Porcine) (Heparin Sodium,Porcine 5,000 Unit/Ml Vial) 5,000 unit SUBCUT Q12H [facility] Last Admin: 04/27/24 08:43 Dose: 5,000 unit Documented By: CLAY Acetaminophen ([facility]) 1,000 mg in 100 mls @ 400 mls/hr IV Q6H [facility] Last Infusion: 04/27/24 09:05 Dose: Infused Documented By: CLAY Potassium Chloride/Dextrose/Sod Cl (Kcl 40 Meq In 5% Dex/0.9% Sod) 40 meq in 1,000 mls @ 125 mls/hr IVCONT .Q8H [facility] Last Admin: 04/27/24 05:29 Dose: 125 mls/hr Documented By: BRITTANEY Ketorolac Tromethamine (Ketorolac Tromethamine 30 Mg/Ml Vial) 30 mg IVPUSH Q6H PRN PRN Reason: Pain, Moderate(Pain Scale 4-6) Stop: 05/01/24 02:11 Last Admin: 04/26/24 23:56 Dose: 30 mg Documented By: BRITTANEY Magnesium Hydroxide (Milk Of Magnesia 30 Ml Oral.Susp) 30 ml PO DAILY PRN PRN Reason: Constipation Melatonin (Melatonin 3 Mg Tablet) 6 mg PO BEDTIME PRN PRN Reason: Insomnia Ondansetron HCl (Ondansetron Hcl 4 Mg/2 Ml Vial) 4 mg IVPUSH Q8H PRN PRN Reason: Nausea and Vomiting Pantoprazole Sodium (Pantoprazole Sodium 40 Mg/10 Ml Vial) 40 mg IVPUSH BID@0630,1630 [facility] Last Admin: 04/27/24 05:30 Dose: 40 mg Documented By: BRITTANEY Sodium Chloride (0.9 % Sodium Chloride Flush 3 Ml Syringe) 3 ml IVFLUSH QSHIFT [facility] Last Admin: 04/27/24 08:52 Dose: Not Given Documented By: CLAY Non-Admin Reason: IV Running Labs 04/27/24 05:27 04/27/24 05:27 Labs: Laboratory Results - last 24 hr 04/26/24 04/26/24 04/27/24 13:32 19:47 05:27 MCV 85.2 MCH 27.7 MCHC 32.6 RDW 15.1 Plt Count 467 H D MPV 10.2 Immature Gran % (Auto) 0.3 Neut % (Auto) 62.3 Lymph % (Auto) 25.4 [place] % (Auto) 11.3 H Eos % (Auto) 0.3 Baso % (Auto) 0.4 Lymph # (Auto) 1.9 [place] # (Auto) 0.8 Eos # (Auto) 0.0 Baso # (Auto) 0.0 Abs Immat Gran (auto) 0.02 Absolute Neuts (auto) 4.6 Absolute Nucleated RBC 0.000 Nucleated RBC % (auto) 0.0 Hold Purple Top SEE NOTE Anion Gap 20 15 Estim Creat Clear Calc 124.0 120.8 Estimated GFR > 60 > 60 Random Glucose 139 H 139 H Calcium 9.4 9.2 Magnesium 1.9 Hold Yellow Top See Note Urine Color Dark Yellow Urine Appearance Cloudy Urine pH 5.5 Ur Specific [place] >= 1.030 H Urine Protein Trace Urine Glucose (UA) Negative Urine Ketones Negative Urine Blood Negative Urine Nitrite Negative Ur Leukocyte Esterase Negative Microbiology Microbiology Results: Microbiology 04/25/24 22:08 Blood Culture - Preliminary Blood - Venous Prelim: GPC Gram Stain only 04/25/24 22:17 Blood Culture - Preliminary Blood - Venous No growth after 24 hours. Assessment and Plan (1) Small bowel obstruction: Status: Acute Plan Pt is a 53 yo male with a pmhx significant for long segment SBO s/p resection secondary to ischemic bowel in 07/[address] Brasher, 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 CT with high grade SBO R mid abdomen. Hypotensive but responsive to 2L of fluids. 1.SBO/ hx long segment SBO s/p resection secondary to ischemic bowel in 07/[address] Brasher - NG tube placed in ED.. Reposition draining well - NPO - IV protonix - IV tylenol and torodol PRN for pain - avoid opioids which could worsen SBO -surgery following 2.Hypokalemia - KCl 40meq/D5/NS.. Good response - monitor BMP 3.Hypotension - responsive to IVF, continue fluids as above - given stress dose of hydrocortisone in ED, given that last steroids were 2 weeks ago no further steroids needed 4.Hx DVT/PE - on xarelto, last dose 04/24 in the afternoon, will hold for now pending surgical consult, resume when appropriate Guillain [place] - IVIG monthly, last 2 weeks ago full code pneumoboots pending surgical eval, will need to resume xarelto when appropriate Pt with SBO complicated by hypotension and hypokalemia likely from GI losses, requiring hospitalization for possible surgery and monitoring Quality Stroke Does the patient have a stroke diagnosis?: No VTE Prior VTE?: Yes VTE Risk Level:: Medical - moderate - high VTE Device Contraindication: N/A - Device Ordered VTE Drug Contraindication: Treatment Not Indicated
--- NOTE | 2024-04-27 15:01 | PM.PNGS ---
Subjective Subjective Date of Service: 04/28/24 Interval history: feeling better later in the day - had pt had nausea dn vomiting around the ng tube earlier and after flushing doing better. xray confirming good placement. pt not complaining of any pain, feels well otherwise - vitals good Physical Exam Vital Signs: Vital Signs: Last Vital Signs Temp 96.8 F 04/27/24 03:23 Pulse 88 04/27/24 08:00 Resp 18 04/27/24 08:00 BP 108/59 L 04/27/24 08:00 Pulse Ox 98 04/27/24 08:00 O2 Del Method Room Air 04/27/24 08:00 BMI result Body Mass Index 30.4 Const: General: cooperative, healthy appearing and comfortable Resp: Effort & Inspection: normal respiratory effort Cardio: Rate: regular rate Rhythm: regular rhythm GI: Other: abdomen obese and wide - not tender anywhere to deep palpation, pt has some bowel sounds not active ngtube draining yellowish [place] clear fluid Objective Data Active Medications Acetaminophen (Acetaminophen 325 Mg Tablet) 650 mg PO Q6H PRN PRN Reason: Pain, Mild (Pain Scale 1-3), fever or headache Calcium Carbonate (Calcium Carbonate 750 Mg Tab.Chew) 750 mg PO Q4H PRN PRN Reason: Heartburn Heparin Sodium (Porcine) (Heparin Sodium,Porcine 5,000 Unit/Ml Vial) 5,000 unit SUBCUT Q12H [facility] Last Admin: 04/27/24 08:43 Dose: 5,000 unit Documented By: CLAY Acetaminophen (Ofirmev) 1,000 mg in 100 mls @ 400 mls/hr IV Q6H [facility] Last Infusion: 04/27/24 14:01 Dose: Infused Documented By: CLAY Potassium Chloride/Dextrose/Sod Cl (Kcl 40 Meq In 5% Dex/0.9% Sod) 40 meq in 1,000 mls @ 125 mls/hr IVCONT .Q8H [facility] Last Admin: 04/27/24 13:26 Dose: 125 mls/hr Documented By: CLAY Ketorolac Tromethamine (Ketorolac Tromethamine 30 Mg/Ml Vial) 30 mg IVPUSH Q6H PRN PRN Reason: Pain, Moderate(Pain Scale 4-6) Stop: 05/01/24 02:11 Last Admin: 04/26/24 23:56 Dose: 30 mg Documented By: BRITTANEY Magnesium Hydroxide (Milk Of Magnesia 30 Ml Oral.Susp) 30 ml PO DAILY PRN PRN Reason: Constipation Melatonin (Melatonin 3 Mg Tablet) 6 mg PO BEDTIME PRN PRN Reason: Insomnia Ondansetron HCl (Ondansetron Hcl 4 Mg/2 Ml Vial) 4 mg IVPUSH Q8H PRN PRN Reason: Nausea and Vomiting Pantoprazole Sodium (Pantoprazole Sodium 40 Mg/10 Ml Vial) 40 mg IVPUSH BID@0630,1630 [facility] Last Admin: 04/27/24 05:30 Dose: 40 mg Documented By: BRITTANEY Sodium Chloride (0.9 % Sodium Chloride Flush 3 Ml Syringe) 3 ml IVFLUSH QSHIFT [facility] Last Admin: 04/27/24 08:52 Dose: Not Given Documented By: CLAY Non-Admin Reason: IV Running Labs 04/27/24 05:27 04/27/24 05:27 Labs: Laboratory Results - last 24 hr 04/26/24 04/27/24 19:47 05:27 MCV 85.2 MCH 27.7 MCHC 32.6 RDW 15.1 Plt Count 467 H D MPV 10.2 Immature Gran % (Auto) 0.3 Neut % (Auto) 62.3 Lymph % (Auto) 25.4 [place] % (Auto) 11.3 H Eos % (Auto) 0.3 Baso % (Auto) 0.4 Lymph # (Auto) 1.9 [place] # (Auto) 0.8 Eos # (Auto) 0.0 Baso # (Auto) 0.0 Abs Immat Gran (auto) 0.02 Absolute Neuts (auto) 4.6 Absolute Nucleated RBC 0.000 Nucleated RBC % (auto) 0.0 Hold Purple Top SEE NOTE Anion Gap 20 15 Estim Creat Clear Calc 124.0 120.8 Estimated GFR > 60 > 60 Random Glucose 139 H 139 H Calcium 9.4 9.2 Magnesium 1.9 Hold Yellow Top See Note Microbiology Microbiology Results: Microbiology 04/25/24 22:08 Blood Culture - Preliminary Blood - Venous Prelim: GPC Gram Stain only 04/25/24 22:17 Blood Culture - Preliminary Blood - Venous No growth after 24 hours. Procedures Date of Service Date of Service: 11/29/24 Progress Note: A&P Assessment and plan (1) Small bowel obstruction: Status: Acute Plan 53 year old male with many med issues and now with sbo - had surgery last time and needing an extensive resection - pt would be a hard operation so conservative care and stabilization and allowing xarelto to wear off is a good plan for now - will try to decompress with ngtube and look for a little less output and consider gastrograffin challenge and see how it goes. so far pt vitals stable, wbc lactate normal and while ngt working is very comfortable. appreciate med team care. pt understands and agrees with the plan - doesnt want to undergo another operation - he was here for a long time after his last admission and resection Time Spent With Patient Time: Total time managing care of this patient today ____ minutes. Quality Stroke Does the patient have a stroke diagnosis?: No VTE Prior VTE?: Yes VTE Risk Level:: Medical - moderate - high VTE Device Contraindication: N/A - Device Ordered VTE Drug Contraindication: Treatment Not Indicated
[2024-04-27 15:15] VITALS: BP 107/68; PULSE 87; RESP 15; TEMP 36; O2SAT 99
[2024-04-27] MEDS: 0.9 % Sodium Chloride Flush 3 ML SYRINGE IVFLUSH (19:02)
[2024-04-27 19:07] VITALS: BP 117/71; PULSE 88; RESP 16; TEMP 36.5; O2SAT 96
[2024-04-27] MEDS: Lactated Ringers 1,000 ML 100 ML IVCONT (22:11)
[2024-04-28 03:09] VITALS: BP 113/77; PULSE 88; RESP 16; TEMP 36.7; O2SAT 98
[2024-04-28] MEDS: Pantoprazole Sodium 40 MG/10 ML VIAL IVPUSH ×2 (05:29→16:40)
[2024-04-28 07:32] LABS: MANUAL DIFF FLAG NO
[2024-04-28 07:37] LABS: Basophils Percent Auto 0.7 % (0-2); Eosinophils Absolute Auto 0.1 X10*3/uL (0.0-0.4); Eosinophils Percent Auto 0.9 % (0-4); Hematocrit 44.3 % (42.0-52.0); Hemoglobin 13.9 g/dl (14.0-18.0); Imm Gran Abs Auto 0.02 X10*3/uL (0.00-0.03); Imm Gran Pct Auto 0.3 % (0.0-0.4); Lymphocytes Absolute Auto 2.4 X10*3/uL (1.2-4.9); Lymphocytes Percent Auto 42.1 % (20-40); Mean Corpuscular HGB Conc 31.4 g/dl (31.0-36.0); Mean Corpuscular Hemoglobin 27.4 pg (27.0-33.0); Mean Corpuscular Volume 87.4 fL (80.0-98.0); Mean Platelet Volume 10.9 fL (9.4-12.4); Monocytes Absolute Auto 0.6 X10*3/uL (0.1-1.2); Monocytes Percent Auto 9.9 % (2-11); Neutrophils Absolute Auto 2.7 x10*3/uL (2.0-8.3); Neutrophils Percent Auto 46.1 % (45-73); Platelet Count 444 X10*3/uL (160-400); Red Blood Count 5.07 X10*6/uL (4.60-5.80); Red Cell Distribution Width 15.3 % (11.0-16.0); White Blood Count 5.8 X10*3/uL (4.8-10.8)
[2024-04-28 07:44] VITALS: BP 120/78; PULSE 81; RESP 16; TEMP 36.6; O2SAT 98
[2024-04-28 08:02] LABS: Anion Gap 13 (12-20); Blood Urea Nitrogen 16 mg/dL (9-16); Calcium 9.3 mg/dL (8.4-10.2); Carbon Dioxide 21 mmol/L (22-29); Chloride 115 mmol/L (96-108); Creatinine Clr Calc Pharmacy 165.1; Estimated Glomerular Filt Rate > 60; Glucose Random 104 mg/dL (60-115); Magnesium 1.8 mg/dL (1.6-2.6); Potassium 3.8 mmol/L (3.3-5.1); Sodium 145 mmol/L (135-145)
[2024-04-28] MEDS: Acetaminophen 1,000 MG/100 ML PIGGYBACK 400 MG IV ×2 (08:09→14:28)
[2024-04-28] MEDS: Heparin Sodium,Porcine 5,000 UNIT/ML VIAL 5000 UNIT SUBCUT ×2 (08:10→19:12)
[2024-04-28] MEDS: Lactated Ringers 1,000 ML 100 ML IVCONT ×2 (08:10→18:40)
[2024-04-28] MEDS: 0.9 % Sodium Chloride Flush 3 ML SYRINGE IVFLUSH ×2 (08:11→16:40)
--- NOTE | 2024-04-28 11:31 | P.PNGS_ITS ---
Subjective Subjective Date of Service: 04/28/24 Interval history: Patient continues to feel the same he says he has not been throwing up the NG tube is draining but maybe not as much as before he does not think that there is in the issues with the getting clogged. He has not passed any gas from below abdomen is not anymore tender labs are okay. Physical Exam 2 Vital Signs: Vital Signs: Last Vital Signs Temp 97.9 F 04/28/24 07:44 Pulse 81 04/28/24 07:44 Resp 16 04/28/24 07:44 BP 120/78 04/28/24 07:44 Pulse Ox 98 04/28/24 07:44 O2 Del Method Room Air 04/28/24 07:44 BMI result Body Mass Index 30.4 Const: General: cooperative, healthy appearing, comfortable and no acute distress GI: Other: Abdomen is soft nondistended obese nontender to deep palpation throughout. No guarding no rebound does have some high-pitched bowel sounds present Objective Data Active Medications Acetaminophen (Acetaminophen 325 Mg Tablet) 650 mg PO Q6H PRN PRN Reason: Pain, Mild (Pain Scale 1-3), fever or headache Calcium Carbonate (Calcium Carbonate 750 Mg Tab.Chew) 750 mg PO Q4H PRN PRN Reason: Heartburn Heparin Sodium (Porcine) (Heparin Sodium,Porcine 5,000 Unit/Ml Vial) 5,000 unit SUBCUT Q12H [facility] Last Admin: 04/28/24 08:10 Dose: 5,000 unit Documented By: CAROL Acetaminophen (Ofirmev) 1,000 mg in 100 mls @ 400 mls/hr IV Q6H [facility] Last Infusion: 04/28/24 08:31 Dose: Infused Documented By: CAROL Lactated Ringer's (Lr) 1,000 mls @ 100 mls/hr IVCONT .Q10H [facility] Last Admin: 04/28/24 08:10 Dose: 100 mls/hr Documented By: CAROL Ketorolac Tromethamine (Ketorolac Tromethamine 30 Mg/Ml Vial) 30 mg IVPUSH Q6H PRN PRN Reason: Pain, Moderate(Pain Scale 4-6) Stop: 05/01/24 02:11 Last Admin: 04/26/24 23:56 Dose: 30 mg Documented By: BRITTANEY Magnesium Hydroxide (Milk Of Magnesia 30 Ml Oral.Susp) 30 ml PO DAILY PRN PRN Reason: Constipation Melatonin (Melatonin 3 Mg Tablet) 6 mg PO BEDTIME PRN PRN Reason: Insomnia Ondansetron HCl (Ondansetron Hcl 4 Mg/2 Ml Vial) 4 mg IVPUSH Q8H PRN PRN Reason: Nausea and Vomiting Pantoprazole Sodium (Pantoprazole Sodium 40 Mg/10 Ml Vial) 40 mg IVPUSH BID@0630,1630 [facility] Last Admin: 04/28/24 05:29 Dose: 40 mg Documented By: SHANIA Sodium Chloride (0.9 % Sodium Chloride Flush 3 Ml Syringe) 3 ml IVFLUSH QSHIFT [facility] Last Admin: 04/28/24 08:11 Dose: 3 ml Documented By: CAROL Labs 04/28/24 06:19 04/28/24 06:19 Labs: Laboratory Results - last 24 hr 04/28/24 06:19 MCV 87.4 MCH 27.4 MCHC 31.4 RDW 15.3 Plt Count 444 H MPV 10.9 Immature Gran % (Auto) 0.3 Neut % (Auto) 46.1 Lymph % (Auto) 42.1 H [place] % (Auto) 9.9 Eos % (Auto) 0.9 Baso % (Auto) 0.7 Lymph # (Auto) 2.4 [place] # (Auto) 0.6 Eos # (Auto) 0.1 Baso # (Auto) 0.0 Abs Immat Gran (auto) 0.02 Absolute Neuts (auto) 2.7 Absolute Nucleated RBC 0.000 Nucleated RBC % (auto) 0.0 Anion Gap 13 Estim Creat Clear Calc 165.1 Estimated GFR > 60 Random Glucose 104 Calcium 9.3 Magnesium 1.8 Microbiology Microbiology Results: Microbiology 04/25/24 22:08 Blood Culture - Final Blood - Venous Coag negative Staphylococcus 04/25/24 22:17 Blood Culture - Preliminary Blood - Venous No growth after 48 hours. Procedures Date of Service Date of Service: 04/28/24 Progress Note: A&P Assessment and plan (1) Small bowel obstruction: Status: Acute Assessment and Plan: 53-year-old male with small bowel obstruction stable. NG tube is putting out drainage and he is comfortable. Blood work looks good abdominal exam is benign. He does have some hypo high-pitched bowel sounds. White blood count is normal NG tube is draining. He has a very difficult exploration so right now things are stable enough we will plan to continue with the NG tube decompression IV fluid resuscitation medical team is following along. If we can get his NG output to go down then we will consider doing a Gastrografin challenge test over the weekend. Patient understands and agrees with the above plan. He does not want to go back in for another operation Time Spent With Patient Time: Total time managing care of this patient today ____ minutes. Quality Stroke Does the patient have a stroke diagnosis?: No VTE Prior VTE?: Yes VTE Risk Level:: Medical - moderate - high VTE Device Contraindication: N/A - Device Ordered VTE Drug Contraindication: Treatment Not Indicated
--- NOTE | 2024-04-28 13:04 | P.PNIM_ITS ---
Subjective Subjective Date of Service: 04/28/24 Interval History: No further vomiting since yesterday morning. Tolerant of NG tube. Review of Systems Denies chest pain Denies shortness of breath Denies nausea vomiting diarrhea Denies fever chills Physical Exam 2 Vital Signs: Vital Signs: Last Vital Signs Temp 97.9 F 04/28/24 07:44 Pulse 81 04/28/24 07:44 Resp 16 04/28/24 07:44 BP 120/78 04/28/24 07:44 Pulse Ox 98 04/28/24 07:44 O2 Del Method Room Air 04/28/24 07:44 BMI result Body Mass Index 30.4 Const: Other: Awake alert no acute distress Resp: Other: Clear to auscultation bilaterally no rales rhonchi or wheezes Cardio: Other: No S4; positive S1-S2; no S3 murmurs rubs or gallops GI: Other: Soft/quiet. NG tube draining yellow liquid Extrem: Other: No edema bilateral Objective Data Active Medications Acetaminophen (Acetaminophen 325 Mg Tablet) 650 mg PO Q6H PRN PRN Reason: Pain, Mild (Pain Scale 1-3), fever or headache Calcium Carbonate (Calcium Carbonate 750 Mg Tab.Chew) 750 mg PO Q4H PRN PRN Reason: Heartburn Heparin Sodium (Porcine) (Heparin Sodium,Porcine 5,000 Unit/Ml Vial) 5,000 unit SUBCUT Q12H [facility] Last Admin: 04/28/24 08:10 Dose: 5,000 unit Documented By: CAROL Acetaminophen (Ofirmev) 1,000 mg in 100 mls @ 400 mls/hr IV Q6H [facility] Last Infusion: 04/28/24 08:31 Dose: Infused Documented By: CAROL Lactated Ringer's (Lr) 1,000 mls @ 100 mls/hr IVCONT .Q10H [facility] Last Admin: 04/28/24 08:10 Dose: 100 mls/hr Documented By: CAROL Ketorolac Tromethamine (Ketorolac Tromethamine 30 Mg/Ml Vial) 30 mg IVPUSH Q6H PRN PRN Reason: Pain, Moderate(Pain Scale 4-6) Stop: 05/01/24 02:11 Last Admin: 04/26/24 23:56 Dose: 30 mg Documented By: HO.CASTILM Magnesium Hydroxide (Milk Of Magnesia 30 Ml Oral.Susp) 30 ml PO DAILY PRN PRN Reason: Constipation Melatonin (Melatonin 3 Mg Tablet) 6 mg PO BEDTIME PRN PRN Reason: Insomnia Ondansetron HCl (Ondansetron Hcl 4 Mg/2 Ml Vial) 4 mg IVPUSH Q8H PRN PRN Reason: Nausea and Vomiting Pantoprazole Sodium (Pantoprazole Sodium 40 Mg/10 Ml Vial) 40 mg IVPUSH BID@0630,1630 [facility] Last Admin: 04/28/24 05:29 Dose: 40 mg Documented By: SHANIA Sodium Chloride (0.9 % Sodium Chloride Flush 3 Ml Syringe) 3 ml IVFLUSH QSHIFT [facility] Last Admin: 04/28/24 08:11 Dose: 3 ml Documented By: CAROL Labs 04/28/24 06:19 04/28/24 06:19 Labs: Laboratory Results - last 24 hr 04/28/24 06:19 MCV 87.4 MCH 27.4 MCHC 31.4 RDW 15.3 Plt Count 444 H MPV 10.9 Immature Gran % (Auto) 0.3 Neut % (Auto) 46.1 Lymph % (Auto) 42.1 H [place] % (Auto) 9.9 Eos % (Auto) 0.9 Baso % (Auto) 0.7 Lymph # (Auto) 2.4 [place] # (Auto) 0.6 Eos # (Auto) 0.1 Baso # (Auto) 0.0 Abs Immat Gran (auto) 0.02 Absolute Neuts (auto) 2.7 Absolute Nucleated RBC 0.000 Nucleated RBC % (auto) 0.0 Anion Gap 13 Estim Creat Clear Calc 165.1 Estimated GFR > 60 Random Glucose 104 Calcium 9.3 Magnesium 1.8 Microbiology Microbiology Results: Microbiology 04/25/24 22:08 Blood Culture - Final Blood - Venous Coag negative Staphylococcus 04/25/24 22:17 Blood Culture - Preliminary Blood - Venous No growth after 48 hours. Assessment and Plan (1) Small bowel obstruction: Status: Acute Plan Pt is a 53 yo male with a pmhx significant for long segment SBO s/p resection secondary to ischemic bowel in 07/[address] Brasher, 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 CT with high grade SBO R mid abdomen. Hypotensive but responsive to 2L of fluids. 1.SBO/ hx long segment SBO s/p resection secondary to ischemic bowel in 07/[address] Brasher - NG tube placed in ED.. Reposition draining well - NPO - IV protonix - IV tylenol and torodol PRN for pain - avoid opioids which could worsen SBO -surgery following 2.Hypokalemia - KCl 40meq/D5/NS.. Good response - monitor BMP 3.Hx DVT/PE - on xarelto, last dose 04/24 in the afternoon, will hold for now pending surgical consult, resume when appropriate 4.Guillain [place] - IVIG monthly, last 2 weeks ago full code pneumoboots pending surgical eval, will need to resume xarelto when appropriate Pt with SBO complicated by hypotension and hypokalemia likely from GI losses, requiring hospitalization for possible surgery and monitoring Quality Stroke Does the patient have a stroke diagnosis?: No VTE Prior VTE?: Yes VTE Risk Level:: Medical - moderate - high VTE Device Contraindication: N/A - Device Ordered VTE Drug Contraindication: Treatment Not Indicated
--- NOTE | 2024-04-28 14:51 | MHC.CM.PN ---
EMR REVIEWED AND PER MD ROUNDS, PT IS NOT MEDICALLY CLEARED FOR DC. (N/G TUBE, NAUSEA) SURGERY FOLLOWING. CM WILL CONTINUE TO FOLLOW FOR ANY CHANGE TO DC PLAN.
[2024-04-28 15:33] VITALS: BP 99/64; PULSE 92; RESP 16; TEMP 36.7; O2SAT 97
[2024-04-28 20:00] VITALS: BP 117/77; PULSE 108; RESP 18; TEMP 36.8; O2SAT 100
[2024-04-29 03:46] VITALS: BP 108/72; PULSE 94; RESP 18; TEMP 36.5; O2SAT 98
[2024-04-29] MEDS: Lactated Ringers 1,000 ML 100 ML IVCONT ×2 (04:26→14:44)
[2024-04-29] MEDS: Pantoprazole Sodium 40 MG/10 ML VIAL IVPUSH (05:57)
[2024-04-29 07:21] LABS: MANUAL DIFF FLAG NO
[2024-04-29 07:39] LABS: Basophils Percent Auto 0.6 % (0-2); Eosinophils Absolute Auto 0.1 X10*3/uL (0.0-0.4); Eosinophils Percent Auto 1.1 % (0-4); Hematocrit 43.5 % (42.0-52.0); Hemoglobin 13.6 g/dl (14.0-18.0); Imm Gran Abs Auto 0.01 X10*3/uL (0.00-0.03); Imm Gran Pct Auto 0.2 % (0.0-0.4); Lymphocytes Absolute Auto 2.3 X10*3/uL (1.2-4.9); Lymphocytes Percent Auto 35.7 % (20-40); Mean Corpuscular HGB Conc 31.3 g/dl (31.0-36.0); Mean Corpuscular Hemoglobin 27.4 pg (27.0-33.0); Mean Corpuscular Volume 87.7 fL (80.0-98.0); Mean Platelet Volume 10.4 fL (9.4-12.4); Monocytes Absolute Auto 0.6 X10*3/uL (0.1-1.2); Monocytes Percent Auto 9.8 % (2-11); Neutrophils Absolute Auto 3.4 x10*3/uL (2.0-8.3); Neutrophils Percent Auto 52.6 % (45-73); Platelet Count 443 X10*3/uL (160-400); Red Blood Count 4.96 X10*6/uL (4.60-5.80); White Blood Count 6.5 X10*3/uL (4.8-10.8)
[2024-04-29 07:46] VITALS: BP 110/77; PULSE 83; RESP 16; TEMP 36.2; O2SAT 98
[2024-04-29] MEDS: Heparin Sodium,Porcine 5,000 UNIT/ML VIAL 5000 UNIT SUBCUT ×2 (07:53→18:33)
[2024-04-29 08:03] LABS: Alanine Aminotransferase 52 U/L (0-40); Albumin Level 3.5 g/dL (3.5-5.0); Alkaline Phosphatase 92 U/L (39-117); Anion Gap 14 (12-20); Aspartate Amino Transferase 31 U/L (5-37); Bilirubin Total 0.8 mg/dL (0.0-1.0); Blood Urea Nitrogen 16 mg/dL (9-16); Calcium 9.1 mg/dL (8.4-10.2); Carbon Dioxide 26 mmol/L (22-29); Chloride 112 mmol/L (96-108); Creatinine Clr Calc Pharmacy 154.2; Estimated Glomerular Filt Rate > 60; Glucose Fasting 85 mg/dL (60-99); Potassium 3.6 mmol/L (3.3-5.1); Sodium 148 mmol/L (135-145); Total Protein 7.8 g/dL (6.5-8.0)
--- NOTE | 2024-04-29 13:51 | HO.PM.IMPN ---
Subjective Subjective Date of Service: 04/29/24 Interval History: Essentially no changes overnight. NG continues to drain light brownish liquid. No recent vomiting Review of Systems Denies chest pain Denies shortness of breath Denies nausea vomiting diarrhea Denies fever chills Physical Exam Vital Signs: Vital Signs: Last Vital Signs Temp 97.2 F 04/29/24 07:46 Pulse 83 04/29/24 07:46 Resp 16 04/29/24 07:46 BP 110/77 04/29/24 07:46 Pulse Ox 98 04/29/24 07:46 O2 Del Method Room Air 04/29/24 07:46 BMI result Body Mass Index 30.4 Const: Other: Awake alert no acute distress Resp: Other: Clear to auscultation bilaterally no rales rhonchi or wheezes Cardio: Other: No S4; positive S1-S2; no S3 murmurs rubs or gallops GI: Other: Soft/quiet. NG tube draining yellow liquid Extrem: Other: No edema bilateral Objective Data Active Medications Acetaminophen (Acetaminophen 325 Mg Tablet) 650 mg PO Q6H PRN PRN Reason: Pain, Mild (Pain Scale 1-3), fever or headache Calcium Carbonate (Calcium Carbonate 750 Mg Tab.Chew) 750 mg PO Q4H PRN PRN Reason: Heartburn Heparin Sodium (Porcine) (Heparin Sodium,Porcine 5,000 Unit/Ml Vial) 5,000 unit SUBCUT Q12H [facility] Last Admin: 04/29/24 07:53 Dose: 5,000 unit Documented By: FARHAN Lactated Ringer's (Lr) 1,000 mls @ 100 mls/hr IVCONT .Q10H [facility] Last Admin: 04/29/24 04:26 Dose: 100 mls/hr Documented By: CORINNA Ketorolac Tromethamine (Ketorolac Tromethamine 30 Mg/Ml Vial) 30 mg IVPUSH Q6H PRN PRN Reason: Pain, Moderate(Pain Scale 4-6) Stop: 05/01/24 02:11 Last Admin: 04/26/24 23:56 Dose: 30 mg Documented By: BRITTANEY Magnesium Hydroxide (Milk Of Magnesia 30 Ml Oral.Susp) 30 ml PO DAILY PRN PRN Reason: Constipation Melatonin (Melatonin 3 Mg Tablet) 6 mg PO BEDTIME PRN PRN Reason: Insomnia Ondansetron HCl (Ondansetron Hcl 4 Mg/2 Ml Vial) 4 mg IVPUSH Q8H PRN PRN Reason: Nausea and Vomiting Sodium Chloride (0.9 % Sodium Chloride Flush 3 Ml Syringe) 3 ml IVFLUSH QSHIFT [facility] Last Admin: 04/29/24 07:57 Dose: Not Given Documented By: FARHAN Non-Admin Reason: IV Running Labs 04/29/24 06:24 04/29/24 06:24 Labs: Laboratory Results - last 24 hr 04/29/24 06:24 MCV 87.7 MCH 27.4 MCHC 31.3 RDW 15.0 Plt Count 443 H MPV 10.4 Immature Gran % (Auto) 0.2 Neut % (Auto) 52.6 Lymph % (Auto) 35.7 [place] % (Auto) 9.8 Eos % (Auto) 1.1 Baso % (Auto) 0.6 Lymph # (Auto) 2.3 [place] # (Auto) 0.6 Eos # (Auto) 0.1 Baso # (Auto) 0.0 Abs Immat Gran (auto) 0.01 Absolute Neuts (auto) 3.4 Absolute Nucleated RBC 0.000 Nucleated RBC % (auto) 0.0 Anion Gap 14 Estim Creat Clear Calc 154.2 Estimated GFR > 60 Fasting Glucose 85 Calcium 9.1 Total Bilirubin 0.8 AST 31 ALT 52 H Alkaline Phosphatase 92 Total Protein 7.8 Albumin 3.5 Assessment and Plan (1) Small bowel obstruction: Status: Acute Plan Pt is a 53 yo male with a pmhx significant for long segment SBO s/p resection secondary to ischemic bowel in 07/[address] Brasher, 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 CT with high grade SBO R mid abdomen. Hypotensive but responsive to 2L of fluids. 1.SBO/ hx long segment SBO s/p resection secondary to ischemic bowel in 07/[address] Brasher - NG tube draining well - NPO - IV protonix - IV tylenol and torodol PRN for pain - avoid opioids which could worsen SBO -surgery following 2.Hypokalemia - KCl 40meq/D5/NS.. Potassium stable - monitor BMP 3.Hx DVT/PE - on xarelto, last dose 04/24 in the afternoon, will hold for now pending surgical consult, resume when appropriate 4.Guillain [place] - IVIG monthly, last 2 weeks ago full code pneumoboots pending surgical eval, will need to resume xarelto when appropriate Pt with SBO complicated by hypotension and hypokalemia likely from GI losses, requiring hospitalization for possible surgery and monitoring Quality Stroke Does the patient have a stroke diagnosis?: No VTE Prior VTE?: Yes VTE Risk Level:: Medical - moderate - high VTE Device Contraindication: N/A - Device Ordered VTE Drug Contraindication: Treatment Not Indicated
[2024-04-29 15:27] VITALS: BP 122/78; PULSE 132; RESP 18; TEMP 37.2; O2SAT 96
[2024-04-29 15:54] VITALS: PULSE 104
[2024-04-29 19:41] VITALS: BP 109/81; PULSE 102; RESP 18; TEMP 36.9; O2SAT 97
--- NOTE | 2024-04-29 19:44 | PM.PNGS ---
Subjective Subjective Date of Service: 04/29/24 Interval history: Patient continues to feel well with no abdominal pain no nausea or vomiting. The NG tube is still draining a lot but decreasing. Patient says he has felt his abdomen rumbling more and did pass a little bit of gas earlier overnight in the day. He can not get up and walk but he has been trying to sit up and move around in bed exercise by lifting his feet. Physical Exam Vital Signs: Vital Signs: Last Vital Signs Temp 98.5 F 04/29/24 19:41 Pulse 102 H 04/29/24 19:41 Resp 18 04/29/24 19:41 BP 109/81 04/29/24 19:41 Pulse Ox 97 04/29/24 19:41 O2 Del Method Room Air 04/29/24 19:41 BMI result Body Mass Index 30.4 Const: General: cooperative, healthy appearing, comfortable and no acute distress GI: Other: Abdomen is very soft nondistended nontender to deep palpation improving bowel sounds. Still with some higher pitched sounds but also more frequent lower rumbling consistent with more normal bowel sounds. Objective Data Active Medications Acetaminophen (Acetaminophen 325 Mg Tablet) 650 mg PO Q6H PRN PRN Reason: Pain, Mild (Pain Scale 1-3), fever or headache Calcium Carbonate (Calcium Carbonate 750 Mg Tab.Chew) 750 mg PO Q4H PRN PRN Reason: Heartburn Heparin Sodium (Porcine) (Heparin Sodium,Porcine 5,000 Unit/Ml Vial) 5,000 unit SUBCUT Q12H [facility] Last Admin: 04/29/24 18:33 Dose: 5,000 unit Documented By: FARHAN Lactated Ringer's (Lr) 1,000 mls @ 100 mls/hr IVCONT .Q10H [facility] Last Admin: 04/29/24 14:44 Dose: 100 mls/hr Documented By: FARHAN Ketorolac Tromethamine (Ketorolac Tromethamine 30 Mg/Ml Vial) 30 mg IVPUSH Q6H PRN PRN Reason: Pain, Moderate(Pain Scale 4-6) Stop: 05/01/24 02:11 Last Admin: 04/26/24 23:56 Dose: 30 mg Documented By: BRITTANEY Magnesium Hydroxide (Milk Of Magnesia 30 Ml Oral.Susp) 30 ml PO DAILY PRN PRN Reason: Constipation Melatonin (Melatonin 3 Mg Tablet) 6 mg PO BEDTIME PRN PRN Reason: Insomnia Ondansetron HCl (Ondansetron Hcl 4 Mg/2 Ml Vial) 4 mg IVPUSH Q8H PRN PRN Reason: Nausea and Vomiting Sodium Chloride (0.9 % Sodium Chloride Flush 3 Ml Syringe) 3 ml IVFLUSH QSHIFT [facility] Last Admin: 04/29/24 15:22 Dose: Not Given Documented By: FARHAN Non-Admin Reason: IV Running Labs 04/29/24 06:24 04/29/24 06:24 Labs: Laboratory Results - last 24 hr 04/29/24 06:24 MCV 87.7 MCH 27.4 MCHC 31.3 RDW 15.0 Plt Count 443 H MPV 10.4 Immature Gran % (Auto) 0.2 Neut % (Auto) 52.6 Lymph % (Auto) 35.7 [place] % (Auto) 9.8 Eos % (Auto) 1.1 Baso % (Auto) 0.6 Lymph # (Auto) 2.3 [place] # (Auto) 0.6 Eos # (Auto) 0.1 Baso # (Auto) 0.0 Abs Immat Gran (auto) 0.01 Absolute Neuts (auto) 3.4 Absolute Nucleated RBC 0.000 Nucleated RBC % (auto) 0.0 Anion Gap 14 Estim Creat Clear Calc 154.2 Estimated GFR > 60 Fasting Glucose 85 Calcium 9.1 Total Bilirubin 0.8 AST 31 ALT 52 H Alkaline Phosphatase 92 Total Protein 7.8 Albumin 3.5 Procedures Date of Service Date of Service: 04/29/24 Progress Note: A&P Assessment and plan (1) Small bowel obstruction: Status: Acute Assessment and Plan: 53-year-old male with small bowel obstruction maybe improving a little bit. He was passing a little gas he says there is definitely better bowel sounds his abdomen remains benign his white count is normal he is afebrile in today his NG output is decreasing. We will see how things go tomorrow but may consider Gastrografin challenge if we feel safe that the volume output is little less to do clamp of the NG Time Spent With Patient Time: Total time managing care of this patient today ____ minutes. Quality Stroke Does the patient have a stroke diagnosis?: No VTE Prior VTE?: Yes VTE Risk Level:: Medical - moderate - high VTE Device Contraindication: N/A - Device Ordered VTE Drug Contraindication: Treatment Not Indicated
[2024-04-30] MEDS: Lactated Ringers 1,000 ML 100 ML IVCONT (00:07)
[2024-04-30 04:00] VITALS: BP 110/72; PULSE 94; RESP 18; TEMP 37.2; O2SAT 95
[2024-04-30] MEDS: Pantoprazole Sodium 40 MG/10 ML VIAL IVPUSH ×2 (06:28→16:53)
[2024-04-30 06:29] LABS: MANUAL DIFF FLAG NO
[2024-04-30 06:34] LABS: Basophils Percent Auto 0.7 % (0-2); Eosinophils Absolute Auto 0.1 X10*3/uL (0.0-0.4); Eosinophils Percent Auto 1.2 % (0-4); Hematocrit 42.3 % (42.0-52.0); Hemoglobin 13.3 g/dl (14.0-18.0); Imm Gran Abs Auto 0.02 X10*3/uL (0.00-0.03); Imm Gran Pct Auto 0.3 % (0.0-0.4); Lymphocytes Absolute Auto 2.4 X10*3/uL (1.2-4.9); Lymphocytes Percent Auto 41.3 % (20-40); Mean Corpuscular HGB Conc 31.4 g/dl (31.0-36.0); Mean Corpuscular Hemoglobin 27.5 pg (27.0-33.0); Mean Corpuscular Volume 87.6 fL (80.0-98.0); Mean Platelet Volume 9.7 fL (9.4-12.4); Monocytes Absolute Auto 0.5 X10*3/uL (0.1-1.2); Monocytes Percent Auto 8.9 % (2-11); Neutrophils Absolute Auto 2.8 x10*3/uL (2.0-8.3); Neutrophils Percent Auto 47.6 % (45-73); Platelet Count 406 X10*3/uL (160-400); Red Blood Count 4.83 X10*6/uL (4.60-5.80); Red Cell Distribution Width 14.8 % (11.0-16.0); White Blood Count 5.8 X10*3/uL (4.8-10.8)
--- NOTE | 2024-04-30 06:36 | PC.NURSE ---
0635- NGT to left nare on low intermittent wall suction, output this 12 [id number] yellow brown fecal odor liquid drainage, NPO maintained, IVP Protonix and IVF LR both renewed by overnight provider, no complaints of nausea or pain.
[2024-04-30 06:54] LABS: Alanine Aminotransferase 93 U/L (0-40); Albumin Level 3.4 g/dL (3.5-5.0); Alkaline Phosphatase 91 U/L (39-117); Anion Gap 13 (12-20); Aspartate Amino Transferase 62 U/L (5-37); Bilirubin Total 0.6 mg/dL (0.0-1.0); Blood Urea Nitrogen 15 mg/dL (9-16); Carbon Dioxide 26 mmol/L (22-29); Chloride 113 mmol/L (96-108); Estimated Glomerular Filt Rate > 60; Glucose Fasting 79 mg/dL (60-99); Potassium 3.4 mmol/L (3.3-5.1); Sodium 149 mmol/L (135-145); Total Protein 7.2 g/dL (6.5-8.0)
[2024-04-30] MEDS: Heparin Sodium,Porcine 5,000 UNIT/ML VIAL 5000 UNIT SUBCUT ×2 (07:25→19:23)
[2024-04-30 07:51] VITALS: BP 104/69; PULSE 77; RESP 16; TEMP 36.2; O2SAT 98
[2024-04-30] MEDS: Dextrose 5 % 1,000 ML 125 ML IVCONT ×2 (08:23→16:54)
--- NOTE | 2024-04-30 11:25 | P.PNGS_ITS ---
Subjective Subjective Date of Service: 04/30/24 Interval history: PATIENT IS DOING BETTER HE HAD SOME flatus passing some gas better bowel sounds abdomen still continues to be nontender NG tube output decreasing and improved bowel sounds Physical Exam 2 Vital Signs: Vital Signs: Last Vital Signs Temp 97.1 F 04/30/24 07:51 Pulse 77 04/30/24 07:51 Resp 16 04/30/24 07:51 BP 104/69 04/30/24 07:51 Pulse Ox 98 04/30/24 07:51 O2 Del Method Room Air 04/30/24 07:51 BMI result Body Mass Index 30.4 Const: General: cooperative, healthy appearing, comfortable and no acute distress GI: Other: Abdomen is soft nondistended nontender much improved bowel sounds Objective Data Active Medications Acetaminophen (Acetaminophen 325 Mg Tablet) 650 mg PO Q6H PRN PRN Reason: Pain, Mild (Pain Scale 1-3), fever or headache Calcium Carbonate (Calcium Carbonate 750 Mg Tab.Chew) 750 mg PO Q4H PRN PRN Reason: Heartburn Heparin Sodium (Porcine) (Heparin Sodium,Porcine 5,000 Unit/Ml Vial) 5,000 unit SUBCUT Q12H [facility] Last Admin: 04/30/24 07:25 Dose: 5,000 unit Documented By: FARHAN Dextrose (D5w) 1,000 mls @ 125 mls/hr IVCONT .Q8H [facility] Last Admin: 04/30/24 08:23 Dose: 125 mls/hr Documented By: FARHAN Ketorolac Tromethamine (Ketorolac Tromethamine 30 Mg/Ml Vial) 30 mg IVPUSH Q6H PRN PRN Reason: Pain, Moderate(Pain Scale 4-6) Stop: 05/01/24 02:11 Last Admin: 04/26/24 23:56 Dose: 30 mg Documented By: BRITTANEY Magnesium Hydroxide (Milk Of Magnesia 30 Ml Oral.Susp) 30 ml PO DAILY PRN PRN Reason: Constipation Melatonin (Melatonin 3 Mg Tablet) 6 mg PO BEDTIME PRN PRN Reason: Insomnia Ondansetron HCl (Ondansetron Hcl 4 Mg/2 Ml Vial) 4 mg IVPUSH Q8H PRN PRN Reason: Nausea and Vomiting Pantoprazole Sodium (Pantoprazole Sodium 40 Mg/10 Ml Vial) 40 mg IVPUSH BID@0630,1630 [facility] Last Admin: 04/30/24 06:28 Dose: 40 mg Documented By: CORINNA Sodium Chloride (0.9 % Sodium Chloride Flush 3 Ml Syringe) 3 ml IVFLUSH QSHIFT [facility] Last Admin: 04/30/24 07:25 Dose: Not Given Documented By: FARHAN Non-Admin Reason: IV Running Labs 04/30/24 06:24 04/30/24 06:24 Labs: Laboratory Results - last 24 hr 04/30/24 06:24 MCV 87.6 MCH 27.5 MCHC 31.4 RDW 14.8 Plt Count 406 H MPV 9.7 Immature Gran % (Auto) 0.3 Neut % (Auto) 47.6 Lymph % (Auto) 41.3 H [place] % (Auto) 8.9 Eos % (Auto) 1.2 Baso % (Auto) 0.7 Lymph # (Auto) 2.4 [place] # (Auto) 0.5 Eos # (Auto) 0.1 Baso # (Auto) 0.0 Abs Immat Gran (auto) 0.02 Absolute Neuts (auto) 2.8 Absolute Nucleated RBC 0.000 Nucleated RBC % (auto) 0.0 Anion Gap 13 Estim Creat Clear Calc 175.0 Estimated GFR > 60 Fasting Glucose 79 Calcium 9.0 Total Bilirubin 0.6 AST 62 H ALT 93 H Alkaline Phosphatase 91 Total Protein 7.2 Albumin 3.4 L Procedures Date of Service Date of Service: 04/30/24 Progress Note: A&P Assessment and plan (1) Small bowel obstruction: Status: Acute Plan 53-year-old male with history of small-bowel obstruction secondary to adhesions coming back in with imaging consistent with small-bowel obstruction as well as symptoms however abdomen was benign tolerating NG-tube. Over the last 4 days he has improved in regards to the NG output going down passing some gas. Tonight we will do a Gastrografin challenge. Around 100 cc of Gastrografin was placed through his NG tube and NG clamped at around 16:00. Plan to get images KUB at 10:00 o'clock and then also in the morning. Hopefully the contrast we will go right through his small bowels into his colon. Continue NG clamped for as long as possible if he gets very nauseated we will try some medication and if that does not improve then we hooked to suction. Nursing team is aware Time Spent With Patient Time: Total time managing care of this patient today ____ minutes. Quality Stroke Does the patient have a stroke diagnosis?: No VTE Prior VTE?: Yes VTE Risk Level:: Medical - moderate - high VTE Device Contraindication: N/A - Device Ordered VTE Drug Contraindication: Treatment Not Indicated
--- NOTE | 2024-04-30 12:29 | P.PNIM_ITS ---
Subjective Subjective Date of Service: 04/30/24 Interval History: No appreciable changes overnight. No further vomiting. NG tube continues to drain a brownish liquid Review of Systems Denies chest pain Denies shortness of breath Denies nausea vomiting diarrhea Denies fever chills Physical Exam 2 Vital Signs: Vital Signs: Last Vital Signs Temp 97.1 F 04/30/24 07:51 Pulse 77 04/30/24 07:51 Resp 16 04/30/24 07:51 BP 104/69 04/30/24 07:51 Pulse Ox 98 04/30/24 07:51 O2 Del Method Room Air 04/30/24 07:51 BMI result Body Mass Index 30.4 Const: Other: Awake alert no acute distress Resp: Other: Clear to auscultation bilaterally no rales rhonchi or wheezes Cardio: Other: No S4; positive S1-S2; no S3 murmurs rubs or gallops GI: Other: Soft/quiet. NG tube draining yellow liquid Extrem: Other: No edema bilateral Objective Data Active Medications Acetaminophen (Acetaminophen 325 Mg Tablet) 650 mg PO Q6H PRN PRN Reason: Pain, Mild (Pain Scale 1-3), fever or headache Calcium Carbonate (Calcium Carbonate 750 Mg Tab.Chew) 750 mg PO Q4H PRN PRN Reason: Heartburn Heparin Sodium (Porcine) (Heparin Sodium,Porcine 5,000 Unit/Ml Vial) 5,000 unit SUBCUT Q12H [facility] Last Admin: 04/30/24 07:25 Dose: 5,000 unit Documented By: FARHAN Dextrose (D5w) 1,000 mls @ 125 mls/hr IVCONT .Q8H [facility] Last Admin: 04/30/24 08:23 Dose: 125 mls/hr Documented By: FARHAN Ketorolac Tromethamine (Ketorolac Tromethamine 30 Mg/Ml Vial) 30 mg IVPUSH Q6H PRN PRN Reason: Pain, Moderate(Pain Scale 4-6) Stop: 05/01/24 02:11 Last Admin: 04/26/24 23:56 Dose: 30 mg Documented By: BRITTANEY Magnesium Hydroxide (Milk Of Magnesia 30 Ml Oral.Susp) 30 ml PO DAILY PRN PRN Reason: Constipation Melatonin (Melatonin 3 Mg Tablet) 6 mg PO BEDTIME PRN PRN Reason: Insomnia Ondansetron HCl (Ondansetron Hcl 4 Mg/2 Ml Vial) 4 mg IVPUSH Q8H PRN PRN Reason: Nausea and Vomiting Pantoprazole Sodium (Pantoprazole Sodium 40 Mg/10 Ml Vial) 40 mg IVPUSH BID@0630,1630 [facility] Last Admin: 04/30/24 06:28 Dose: 40 mg Documented By: CORINNA Sodium Chloride (0.9 % Sodium Chloride Flush 3 Ml Syringe) 3 ml IVFLUSH QSHIFT [facility] Last Admin: 04/30/24 07:25 Dose: Not Given Documented By: FARHAN Non-Admin Reason: IV Running Labs 04/30/24 06:24 12 06:24 Labs: Laboratory Results - last 24 hr 04/30/24 06:24 MCV 87.6 MCH 27.5 MCHC 31.4 RDW 14.8 Plt Count 406 H MPV 9.7 Immature Gran % (Auto) 0.3 Neut % (Auto) 47.6 Lymph % (Auto) 41.3 H [place] % (Auto) 8.9 Eos % (Auto) 1.2 Baso % (Auto) 0.7 Lymph # (Auto) 2.4 [place] # (Auto) 0.5 Eos # (Auto) 0.1 Baso # (Auto) 0.0 Abs Immat Gran (auto) 0.02 Absolute Neuts (auto) 2.8 Absolute Nucleated RBC 0.000 Nucleated RBC % (auto) 0.0 Anion Gap 13 Estim Creat Clear Calc 175.0 Estimated GFR > 60 Fasting Glucose 79 Calcium 9.0 Total Bilirubin 0.6 AST 62 H ALT 93 H Alkaline Phosphatase 91 Total Protein 7.2 Albumin 3.4 L Assessment and Plan (1) Small bowel obstruction: Status: Acute Plan Pt is a 53 yo male with a pmhx significant for long segment SBO s/p resection secondary to ischemic bowel in 07/[address] Brasher, 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 CT with high grade SBO R mid abdomen. Hypotensive but responsive to 2L of fluids. 1.SBO/ hx long segment SBO s/p resection secondary to ischemic bowel in 07/[address] Brasher - NG tube draining well - NPO...will book PICC line am. Nutritional consult placed for TPN - IV protonix - IV tylenol and torodol PRN for pain - avoid opioids which could worsen SBO -surgery following 2.Hypokalemia - KCl 40meq/D5/NS.. Potassium stable...continue same - monitor BMP 3.Hx DVT/PE - on xarelto, last dose 04/24 in the afternoon, will hold for now pending surgical consult, resume when appropriate 4.Guillain [place] - IVIG monthly, last 2 weeks ago full code pneumoboots pending surgical eval, will need to resume xarelto when appropriate Pt with SBO complicated by hypotension and hypokalemia likely from GI losses, requiring hospitalization for possible surgery and monitoring Quality Stroke Does the patient have a stroke diagnosis?: No VTE Prior VTE?: Yes VTE Risk Level:: Medical - moderate - high VTE Device Contraindication: N/A - Device Ordered VTE Drug Contraindication: Treatment Not Indicated
[2024-04-30 15:29] VITALS: BP 129/84; PULSE 94; RESP 16; TEMP 36.1; O2SAT 99
[2024-04-30 19:32] VITALS: BP 135/81; PULSE 105; RESP 18; TEMP 36.9; O2SAT 98
[2024-05-01] MEDS: Dextrose 5 % 1,000 ML 125 ML IVCONT ×2 (00:20→09:46)
[2024-05-01 03:01] VITALS: BP 112/79; PULSE 97; RESP 18; TEMP 36.6; O2SAT 99
[2024-05-01] MEDS: Ketorolac Tromethamine 30 MG/ML VIAL IVPUSH ×2 (03:31→23:00)
[2024-05-01] MEDS: Pantoprazole Sodium 40 MG/10 ML VIAL IVPUSH ×2 (05:39→17:33)
[2024-05-01 06:02] LABS: MANUAL DIFF FLAG NO
[2024-05-01 06:11] LABS: Basophils Percent Auto 0.5 % (0-2); Eosinophils Absolute Auto 0.1 X10*3/uL (0.0-0.4); Eosinophils Percent Auto 1.6 % (0-4); Hematocrit 44.3 % (42.0-52.0); Hemoglobin 13.9 g/dl (14.0-18.0); Imm Gran Abs Auto 0.07 X10*3/uL (0.00-0.03); Imm Gran Pct Auto 1.1 % (0.0-0.4); Lymphocytes Absolute Auto 2.1 X10*3/uL (1.2-4.9); Lymphocytes Percent Auto 32.9 % (20-40); Mean Corpuscular HGB Conc 31.4 g/dl (31.0-36.0); Mean Corpuscular Hemoglobin 27.4 pg (27.0-33.0); Mean Corpuscular Volume 87.4 fL (80.0-98.0); Mean Platelet Volume 9.9 fL (9.4-12.4); Monocytes Absolute Auto 0.6 X10*3/uL (0.1-1.2); Monocytes Percent Auto 8.9 % (2-11); Neutrophils Absolute Auto 3.5 x10*3/uL (2.0-8.3); Platelet Count 452 X10*3/uL (160-400); Red Blood Count 5.07 X10*6/uL (4.60-5.80); Red Cell Distribution Width 14.7 % (11.0-16.0); White Blood Count 6.4 X10*3/uL (4.8-10.8)
[2024-05-01 06:21] LABS: Alanine Aminotransferase 173 U/L (0-40); Albumin Level 3.8 g/dL (3.5-5.0); Alkaline Phosphatase 101 U/L (39-117); Anion Gap 13 (12-20); Aspartate Amino Transferase 87 U/L (5-37); Bilirubin Total 0.8 mg/dL (0.0-1.0); Blood Urea Nitrogen 11 mg/dL (9-16); Calcium 9.8 mg/dL (8.4-10.2); Carbon Dioxide 28 mmol/L (22-29); Chloride 105 mmol/L (96-108); Creatinine Clr Calc Pharmacy 131.7; Estimated Glomerular Filt Rate > 60; Glucose Fasting 148 mg/dL (60-99); Potassium 3.7 mmol/L (3.3-5.1); Sodium 142 mmol/L (135-145)
[2024-05-01 07:42] VITALS: BP 109/76; PULSE 83; RESP 18; TEMP 36.8; O2SAT 98
--- NOTE | 2024-05-01 08:11 | P.PNGS_ITS ---
Subjective Subjective Date of Service: 05/01/24 Interval history: Denies abdominal pain No nausea Says he passed flatus yesterday Physical Exam 2 Vital Signs: Vital Signs: Last Vital Signs Temp 98.2 F 05/01/24 07:42 Pulse 83 05/01/24 07:42 Resp 18 05/01/24 07:42 BP 109/76 05/01/24 07:42 Pulse Ox 98 05/01/24 07:42 O2 Del Method Room Air 05/01/24 07:42 BMI result Body Mass Index 30.4 Const: General: comfortable and no acute distress Resp: Effort & Inspection: normal respiratory effort Cardio: Rate: regular rate GI: Palpation (GI): Soft to palpation, not firm, nontender and no guarding Objective Data Active Medications Acetaminophen (Acetaminophen 325 Mg Tablet) 650 mg PO Q6H PRN PRN Reason: Pain, Mild (Pain Scale 1-3), fever or headache Calcium Carbonate (Calcium Carbonate 750 Mg Tab.Chew) 750 mg PO Q4H PRN PRN Reason: Heartburn Heparin Sodium (Porcine) (Heparin Sodium,Porcine 5,000 Unit/Ml Vial) 5,000 unit SUBCUT Q12H [facility] Last Admin: 04/30/24 19:23 Dose: 5,000 unit Documented By: BRYANT Dextrose (D5w) 1,000 mls @ 125 mls/hr IVCONT .Q8H [facility] Last Admin: 05/01/24 00:20 Dose: 125 mls/hr Documented By: BRYANT Ketorolac Tromethamine (Ketorolac Tromethamine 30 Mg/Ml Vial) 30 mg IVPUSH Q6H PRN PRN Reason: Pain, Severe (Pain Scale 7-10) Last Admin: 05/01/24 03:31 Dose: 30 mg Documented By: BRYANT Magnesium Hydroxide (Milk Of Magnesia 30 Ml Oral.Susp) 30 ml PO DAILY PRN PRN Reason: Constipation Melatonin (Melatonin 3 Mg Tablet) 6 mg PO BEDTIME PRN PRN Reason: Insomnia Ondansetron HCl (Ondansetron Hcl 4 Mg/2 Ml Vial) 4 mg IVPUSH Q8H PRN PRN Reason: Nausea and Vomiting Pantoprazole Sodium (Pantoprazole Sodium 40 Mg/10 Ml Vial) 40 mg IVPUSH BID@0630,1630 [facility] Last Admin: 05/01/24 05:39 Dose: 40 mg Documented By: BRYANT Sodium Chloride (0.9 % Sodium Chloride Flush 3 Ml Syringe) 3 ml IVFLUSH QSHIFT [facility] Last Admin: 04/30/24 20:18 Dose: Not Given Documented By: BRYANT Non-Admin Reason: IV Running Labs 05/01/24 05:47 05/01/24 05:47 Labs: Laboratory Results - last 24 hr 05/01/24 05:47 MCV 87.4 MCH 27.4 MCHC 31.4 RDW 14.7 Plt Count 452 H MPV 9.9 Immature Gran % (Auto) 1.1 H Neut % (Auto) 55.0 Lymph % (Auto) 32.9 [place] % (Auto) 8.9 Eos % (Auto) 1.6 Baso % (Auto) 0.5 Lymph # (Auto) 2.1 [place] # (Auto) 0.6 Eos # (Auto) 0.1 Baso # (Auto) 0.0 Abs Immat Gran (auto) 0.07 H Absolute Neuts (auto) 3.5 Absolute Nucleated RBC 0.000 Nucleated RBC % (auto) 0.0 Anion Gap 13 Estim Creat Clear Calc 131.7 Estimated GFR > 60 Fasting Glucose 148 H Calcium 9.8 D Total Bilirubin 0.8 AST 87 H ALT 173 H Alkaline Phosphatase 101 Total Protein 8.0 Albumin 3.8 Microbiology Microbiology Results: Microbiology 04/25/24 22:17 Blood Culture - Final Blood - Venous No growth after 5 days. Procedures Date of Service Date of Service: 05/01/24 Progress Note: A&P Assessment and plan (1) Small bowel obstruction: Status: Acute Assessment and Plan: Clinically doing well Follow up KUB today NG-tube in place Abdomen is soft and benign I have seen his KUB and this shows distended small bowel loops I put his NG tube back to in terms of dissection with note of significant output We will keep his NG tube to low intermittent suction PICC line and TPN He looks well otherwise Time Spent With Patient Time: Total time managing care of this patient today ____ minutes. Quality Stroke Does the patient have a stroke diagnosis?: No VTE Prior VTE?: Yes VTE Risk Level:: Medical - moderate - high VTE Device Contraindication: N/A - Device Ordered VTE Drug Contraindication: Treatment Not Indicated
[2024-05-01] MEDS: Heparin Sodium,Porcine 5,000 UNIT/ML VIAL 5000 UNIT SUBCUT ×2 (08:42→19:18)
[2024-05-01] MEDS: 0.9 % Sodium Chloride Flush 3 ML SYRINGE IVFLUSH ×2 (09:45→19:18)
[2024-05-01 10:33] VITALS: BMI 30.4
[2024-05-01 10:50] VITALS: BMI 30.4
--- NOTE | 2024-05-01 11:00 | MHC.CLN ---
NUTRITION NPO DUE TO BOWEL OBSTRUCTION. PER PROVIDER, PATIENT TO RECEIVE PICC TODAY AND START TPN. LABS REVIEWED. COMMUNICATED WITH PHARMACY. REC START TPN AT 40 ML PER HOUR TO PROVIDE 48 G PROTEIN, 144 G DEXTROSE, 682 KCALS. IF PPN NEEDED, REC START PPN AT 60 ML PER HOUR TO PROVIDE 61 G PROTEIN, 144 G DEXTROSE, 734 KCALS. REPLETE LYTES NEEDED. SEE CLINICAL NUTRITION ASSESSMENT 05/01/24.
[2024-05-01 11:22] LABS: Magnesium 1.6 mg/dL (1.6-2.6); Phosphorus 3.4 mg/dL (2.7-4.5)
--- NOTE | 2024-05-01 13:07 | MHC.CM.PN ---
per rounds pt not dc ready ?sbo
--- NOTE | 2024-05-01 15:25 | P.PNIM_ITS ---
Subjective Subjective Date of Service: 05/01/24 Interval History: being followed for SBO, NG tube clamped since last night patient denies abdominal pain no recurrent nausea, no vomiting, scheduled for KUB. Review of Systems all other system reviewed and are negative Physical Exam 2 Vital Signs: Vital Signs: Last Vital Signs Temp 98.2 F 05/01/24 07:42 Pulse 83 05/01/24 07:42 Resp 18 05/01/24 07:42 BP 109/76 05/01/24 07:42 Pulse Ox 98 05/01/24 07:42 O2 Del Method Room Air 05/01/24 07:42 BMI result Body Mass Index 30.4 Const: Other: General resting comfortably in no acute distress. Neck no JVD. CVS regular rate rhythm, Respiratory lungs clear to auscultation, no respiratory distress, no wheeze, no rhonchi. Gastrointestinal abdomen soft, non tender, no guarding , no rigidity. Extremities no edema. Neuro non focal Skin no rash Objective Data Active Medications Acetaminophen (Acetaminophen 325 Mg Tablet) 650 mg PO Q6H PRN PRN Reason: Pain, Mild (Pain Scale 1-3), fever or headache Calcium Carbonate (Calcium Carbonate 750 Mg Tab.Chew) 750 mg PO Q4H PRN PRN Reason: Heartburn Heparin Sodium (Porcine) (Heparin Sodium,Porcine 5,000 Unit/Ml Vial) 5,000 unit SUBCUT Q12H [facility] Last Admin: 05/01/24 08:42 Dose: 5,000 unit Documented By: MARY Dextrose (D5w) 1,000 mls @ 125 mls/hr IVCONT .Q8H [facility] Last Admin: 05/01/24 09:46 Dose: 125 mls/hr Documented By: MARY Nutrition (Parenteral) (Parenteral Nutrition) 1,440 mls @ 60 mls/hr IV .Q24H [facility]; Protocol Stop: 05/02/24 20:59 Ketorolac Tromethamine (Ketorolac Tromethamine 30 Mg/Ml Vial) 30 mg IVPUSH Q6H PRN PRN Reason: Pain, Severe (Pain Scale 7-10) Last Admin: 05/01/24 03:31 Dose: 30 mg Documented By: BRYANT Magnesium Hydroxide (Milk Of Magnesia 30 Ml Oral.Susp) 30 ml PO DAILY PRN PRN Reason: Constipation Melatonin (Melatonin 3 Mg Tablet) 6 mg PO BEDTIME PRN PRN Reason: Insomnia Ondansetron HCl (Ondansetron Hcl 4 Mg/2 Ml Vial) 4 mg IVPUSH Q8H PRN PRN Reason: Nausea and Vomiting Pantoprazole Sodium (Pantoprazole Sodium 40 Mg/10 Ml Vial) 40 mg IVPUSH BID@0630,1630 [facility] Last Admin: 05/01/24 05:39 Dose: 40 mg Documented By: BRYANT Sodium Chloride (0.9 % Sodium Chloride Flush 3 Ml Syringe) 3 ml IVFLUSH QSHIFT [facility] Last Admin: 05/01/24 09:45 Dose: 3 ml Documented By: MARY Labs 05/01/24 05:47 05/01/24 05:47 Labs: Laboratory Results - last 24 hr 05/01/24 05/01/24 05:47 10:26 MCV 87.4 MCH 27.4 MCHC 31.4 RDW 14.7 Plt Count 452 H MPV 9.9 Immature Gran % (Auto) 1.1 H Neut % (Auto) 55.0 Lymph % (Auto) 32.9 [place] % (Auto) 8.9 Eos % (Auto) 1.6 Baso % (Auto) 0.5 Lymph # (Auto) 2.1 [place] # (Auto) 0.6 Eos # (Auto) 0.1 Baso # (Auto) 0.0 Abs Immat Gran (auto) 0.07 H Absolute Neuts (auto) 3.5 Absolute Nucleated RBC 0.000 Nucleated RBC % (auto) 0.0 Anion Gap 13 Estim Creat Clear Calc 131.7 Estimated GFR > 60 Fasting Glucose 148 H Calcium 9.8 D Phosphorus 3.4 Magnesium 1.6 Total Bilirubin 0.8 AST 87 H ALT 173 H Alkaline Phosphatase 101 Total Protein 8.0 Albumin 3.8 Microbiology Microbiology Results: Microbiology 04/25/24 22:17 Blood Culture - Final Blood - Venous No growth after 5 days. Assessment and Plan (1) Small bowel obstruction: Status: Acute Plan 53 yo male with a pmhx significant for long segment SBO s/p resection secondary to ischemic bowel in 07/[address] Brasher, 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 CT with high grade SBO R mid abdomen. Hypotensive but responsive to 2L of fluids. 1.SBO/ hx long segment SBO s/p resection secondary to ischemic bowel in 07/[address] Brasher - NG tube clamped overnight, patient had no recurrent nausea, vomiting or abdominal pain - repeat KUB showed persistent dilated loops - NG-tube placed on low suction - continue IV protonix, IV fluids and transitioned to IV TPN after PICC line placed - IV tylenol and torodol PRN for pain, avoid opioids - treatment plan as per General surgery 2.Hypokalemia - resolved - monitor BMP 3.Hx DVT/PE - on xarelto, last dose 04/24 in the afternoon, will hold for now in case need surgical intervention. 4.Guillain [place] - IVIG monthly, last 2 weeks ago full code on subQ heparin ,will need to resume xarelto when appropriate Pt with SBO complicated by hypotension and hypokalemia likely from GI losses, requiring hospitalization for persistent small-bowel obstruction requiring TPN and remains NPO Quality Stroke Does the patient have a stroke diagnosis?: No VTE Prior VTE?: Yes VTE Risk Level:: Medical - moderate - high VTE Device Contraindication: N/A - Device Ordered VTE Drug Contraindication: Treatment Not Indicated
--- NOTE | 2024-05-01 15:37 | PM.EVENT ---
Event Note Date of Service: 05/01/24 Event Note: Seen on afternoon rounds Continues to deny any abdominal pain Denies flatus today No vomiting or nausea Abdomen is soft, benign, no guarding, no rebound, out of tenderness Clinically looks well KUB shows dilatation of the small bowel loops Keep NG tube in place, low intermittent suction TPN Explained above to patient and significant other Time Spent With Patient Time: Total time managing care of this patient today ____ minutes.
--- NOTE | 2024-05-01 16:34 | P.PICC_ITS ---
PICC Line Insertion NPICC Diagnosis: SBO Indication: TPN Pertinent Labs: Reviewed Technique: Following informed consent including risks, benefits and alternatives and using sterile technique including cap and mask, sterile gown, glove and drape, the left arm was prepped and draped in the usual sterile fashion of full barrier technique with CHG. Following completion of [place] Protocol the skin and soft tissues were anesthetized with 1% Lidocaine plain. Using ultrasound guidance, left basilic vein access was obtained. Over an 0.018 wire through p eel-away sheath, a 5FR double lumen PASV PICC line was positioned. Catheter length is 53cm internal length, 0 external length, for a total trimmed length of 53cm. The procedure was performed in rm 272. Tip verification was performed by Marty Anderson with Sherlock 3CG. Tip located in SVC. Ultrasound was used to document vein patency and for needle entry. A formal ultrasound picture and cardiac rhythm strip was recorded. [employer] has released the line for use and it is currently dressed with a StatLock, Tegaderm, and CHG disc. Verification has been performed for blood return and line patency. Arm Circumference: 40.5cm Equipment: [employer] SOLO catheter wiht Sherlock 3CG Tip Catheter Type: 5FR double lumen PASV Lot #: [id number]
[2024-05-01 19:21] VITALS: BP 113/72; PULSE 102; RESP 18; TEMP 36.8; O2SAT 97
[2024-05-01] MEDS: Parenteral Nutrition 1,440 ML 60 ML IV (20:41)
[2024-05-02 03:43] VITALS: BP 109/72; PULSE 98; RESP 18; TEMP 36.4; O2SAT 97
[2024-05-02] MEDS: Pantoprazole Sodium 40 MG/10 ML VIAL IVPUSH ×2 (05:46→16:03)
[2024-05-02] MEDS: Ketorolac Tromethamine 30 MG/ML VIAL IVPUSH (05:53)
[2024-05-02 06:49] LABS: Alanine Aminotransferase 279 U/L (0-40); Albumin Level 4.1 g/dL (3.5-5.0); Alkaline Phosphatase 114 U/L (39-117); Anion Gap 16 (12-20); Aspartate Amino Transferase 114 U/L (5-37); Bilirubin Total 0.8 mg/dL (0.0-1.0); Blood Urea Nitrogen 19 mg/dL (9-16); Calcium 10.4 mg/dL (8.4-10.2); Carbon Dioxide 25 mmol/L (22-29); Chloride 101 mmol/L (96-108); Creatinine Clr Calc Pharmacy 98.5; Estimated Glomerular Filt Rate > 60; Glucose Random 164 mg/dL (60-115); Phosphorus 4.6 mg/dL (2.7-4.5); Potassium 3.1 mmol/L (3.3-5.1); Sodium 139 mmol/L (135-145); Triglycerides 119 mg/dL (<150)
[2024-05-02 07:54] VITALS: BP 114/72; PULSE 87; RESP 18; TEMP 36.4; O2SAT 97
--- NOTE | 2024-05-02 08:01 | P.PNGS_ITS ---
Subjective Subjective Date of Service: 05/02/24 Interval history: Feels well this morning Denies any abdominal pain Does not recall flatus Had PICC line placed yesterday, TPN started Denies nausea or vomiting Physical Exam 2 Vital Signs: Vital Signs: Last Vital Signs Temp 97.6 F 05/02/24 07:54 Pulse 87 05/02/24 07:54 Resp 18 05/02/24 07:54 BP 114/72 05/02/24 07:54 Pulse Ox 97 05/02/24 07:54 O2 Del Method Room Air 05/02/24 07:54 BMI result Body Mass Index 30.4 Const: Other: Looks well General: comfortable and no acute distress Resp: Effort & Inspection: normal respiratory effort Cardio: Rate: regular rate GI: Other: NG tube in place Palpation (GI): Soft to palpation, not firm, nontender and no guarding Objective Data Active Medications Acetaminophen (Acetaminophen 325 Mg Tablet) 650 mg PO Q6H PRN PRN Reason: Pain, Mild (Pain Scale 1-3), fever or headache Calcium Carbonate (Calcium Carbonate 750 Mg Tab.Chew) 750 mg PO Q4H PRN PRN Reason: Heartburn Heparin Sodium (Porcine) (Heparin Sodium,Porcine 5,000 Unit/Ml Vial) 5,000 unit SUBCUT Q12H [facility] Last Admin: 05/01/24 19:18 Dose: 5,000 unit Documented By: BRYANT Nutrition (Parenteral) (Parenteral Nutrition) 1,440 mls @ 60 mls/hr IV .Q24H [facility]; Protocol Stop: 05/02/24 20:59 Last Admin: 05/01/24 20:41 Dose: 60 mls/hr Documented By: BRYANT Magnesium Hydroxide (Milk Of Magnesia 30 Ml Oral.Susp) 30 ml PO DAILY PRN PRN Reason: Constipation Melatonin (Melatonin 3 Mg Tablet) 6 mg PO BEDTIME PRN PRN Reason: Insomnia Ondansetron HCl (Ondansetron Hcl 4 Mg/2 Ml Vial) 4 mg IVPUSH Q8H PRN PRN Reason: Nausea and Vomiting Pantoprazole Sodium (Pantoprazole Sodium 40 Mg/10 Ml Vial) 40 mg IVPUSH BID@0630,1630 [facility] Last Admin: 05/02/24 05:46 Dose: 40 mg Documented By: BRYANT Sodium Chloride (0.9 % Sodium Chloride Flush 3 Ml Syringe) 3 ml IVFLUSH QSHIFT [facility] Last Admin: 05/01/24 19:18 Dose: 3 ml Documented By: BRYANT Labs 05/01/24 05:47 05/02/24 05:45 Labs: Laboratory Results - last 24 hr 05/01/24 05/02/24 10:26 05:45 Hold Purple Top SEE NOTE Anion Gap 16 Estim Creat Clear Calc 98.5 Estimated GFR > 60 Random Glucose 164 H Calcium 10.4 H D Phosphorus 3.4 4.6 H Magnesium 1.6 2.0 Total Bilirubin 0.8 AST 114 H ALT 279 H Alkaline Phosphatase 114 Total Protein 9.0 H Albumin 4.1 Triglycerides 119 Procedures Date of Service Date of Service: 05/02/24 Progress Note: A&P Assessment and plan (1) Small bowel obstruction: Status: Acute Assessment and Plan: KUB showing dilated small bowel loops Abdomen remained soft, benign and nontender Clinically he is doing well Comfortable Would keep NG tube in place until consistent flatus Replace potassium TPN Bedside PT order Time Spent With Patient Time: Total time managing care of this patient today ____ minutes. Quality Stroke Does the patient have a stroke diagnosis?: No VTE Prior VTE?: Yes VTE Risk Level:: Medical - moderate - high VTE Device Contraindication: N/A - Device Ordered VTE Drug Contraindication: Treatment Not Indicated
[2024-05-02] MEDS: Heparin Sodium,Porcine 5,000 UNIT/ML VIAL 5000 UNIT SUBCUT ×2 (08:03→18:35)
--- NOTE | 2024-05-02 10:04 | P.CDIM_ITS ---
PROVIDER RESPONSE TEXT: To clarify, the appropriate diagnosis supported by the clinical indicators: Small bowel obstruction: partial QUERY TEXT: PHYSICIAN'S DOCUMENTATION REQUEST Date of Query: 05/02/2024 09:24 AM EST Patient Name: Mathieu Anand Admit Date: 04/26/2024 Dear Francisco Brasher MD, A review of the medical record indicates additional documentation may be needed. Please review below and update the documentation accordingly. Clinical Indicators: Dx: Small bowel obstruction Surgery note 04/26 - Admitted with abdominal pain and vomiting. Patient continues to feel well with no abdominal pain, no nausea or vomiting. The NG tube is still draining a lot but decreasing, Hydrated with IV fluids. Patient doesn't want to undergo another operation. CT 04/25 - High grade small bowel obstruction with transition point in the right mid abdomen where there are apparent surgical clips and a new complete twist of the associated mesentery and infiltrative change within the associated mesentery. Based on the above, could you clarify any further specifics to the documented SBO within the medical record: Small bowel obstruction complete, partial, incomplete etc. Other (explain) Clinically unable to determine (explain) Thank you, Anny Calix, CCS, CDIS Use of terms such as suspected, likely, concern for, or probable (associated with a specific diagnosi s that is being evaluated, monitored, or treated as if it exists) are acceptable and can be coded in the inpatient se tting, when documented at the time of discharge. Please use your independent medical judgment in providing your response. THIS QUERY IS PART OF THE PERMANENT MEDICAL RECORD
[2024-05-02 10:25] VITALS: BP 114/72; PULSE 87; O2SAT 97
--- NOTE | 2024-05-02 10:56 | MHC.CLN ---
F/U PICC PLACED 05/01/24 REMAINS NPO PT TO SWITCH TO TPN REVIEWED LABS DISCUSSED WITH PHARMACY RECOMMEND TPN AT 60ML/HR TO PROVIDE 1022KCALS, 216G DEXTROSE, 72G PROTEIN REPLETE LYTES NEEDED
--- NOTE | 2024-05-02 12:19 | P.PNIM_ITS ---
Subjective Subjective Date of Service: 05/02/24 Interval History: Patient complaining of mild abdominal discomfort, denies flatus, no bowel movements, NG output 200 mL last night, this a.m. 100 mL no nausea no vomiting, no bowel movement since 04/26. No acute events overnight. Review of Systems All other system reviewed and are negative. Physical Exam 2 Vital Signs: Vital Signs: Last Vital Signs Temp 97.6 F 05/02/24 07:54 Pulse 87 05/02/24 10:25 Resp 18 05/02/24 07:54 BP 114/72 05/02/24 10:25 Pulse Ox 97 05/02/24 10:25 O2 Del Method Room Air 05/02/24 07:54 BMI result Body Mass Index 30.4 Const: Other: General resting comfortably in no acute distress. Neck no JVD. CVS regular rate rhythm, Respiratory lungs clear to auscultation, no respiratory distress, no wheeze, no rhonchi. Gastrointestinal abdomen soft, non tender, no guarding , no rigidity. Extremities no edema. Neuro non focal Skin no rash Objective Data Active Medications Acetaminophen (Acetaminophen 325 Mg Tablet) 650 mg PO Q6H PRN PRN Reason: Pain, Mild (Pain Scale 1-3), fever or headache Calcium Carbonate (Calcium Carbonate 750 Mg Tab.Chew) 750 mg PO Q4H PRN PRN Reason: Heartburn Heparin Sodium (Porcine) (Heparin Sodium,Porcine 5,000 Unit/Ml Vial) 5,000 unit SUBCUT Q12H [facility] Last Admin: 05/02/24 08:03 Dose: 5,000 unit Documented By: SALAZAR Nutrition (Parenteral) (Parenteral Nutrition) 1,440 mls @ 60 mls/hr IV .Q24H [facility]; Protocol Stop: 05/02/24 20:59 Last Admin: 05/01/24 20:41 Dose: 60 mls/hr Documented By: BRYANT Nutrition (Parenteral) (Parenteral Nutrition) 1,440 mls @ 60 mls/hr IV .Q24H [facility]; Protocol Stop: 05/03/24 20:59 Magnesium Hydroxide (Milk Of Magnesia 30 Ml Oral.Susp) 30 ml PO DAILY PRN PRN Reason: Constipation Melatonin (Melatonin 3 Mg Tablet) 6 mg PO BEDTIME PRN PRN Reason: Insomnia Ondansetron HCl (Ondansetron Hcl 4 Mg/2 Ml Vial) 4 mg IVPUSH Q8H PRN PRN Reason: Nausea and Vomiting Pantoprazole Sodium (Pantoprazole Sodium 40 Mg/10 Ml Vial) 40 mg IVPUSH BID@0630,1630 [facility] Last Admin: 05/02/24 05:46 Dose: 40 mg Documented By: BRYANT Sodium Chloride (0.9 % Sodium Chloride Flush 3 Ml Syringe) 3 ml IVFLUSH QSHIFT [facility] Last Admin: 05/02/24 08:05 Dose: Not Given Documented By: SALAZAR Non-Admin Reason: IV Running Labs 05/01/24 05:47 05/02/24 05:45 Labs: Laboratory Results - last 24 hr 05/02/24 05:45 Hold Purple Top SEE NOTE Anion Gap 16 Estim Creat Clear Calc 98.5 Estimated GFR > 60 Random Glucose 164 H Calcium 10.4 H D Phosphorus 4.6 H Magnesium 2.0 Total Bilirubin 0.8 AST 114 H ALT 279 H Alkaline Phosphatase 114 Total Protein 9.0 H Albumin 4.1 Triglycerides 119 Assessment and Plan (1) Acute hypokalemia: Status: Acute (2) Small bowel obstruction: Status: Acute Plan 53 yo male with a pmhx significant for long segment SBO s/p resection secondary to ischemic bowel in 07/[address] Brasher, 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 CT with high grade SBO R mid abdomen. Hypotensive but responsive to 2L of fluids. 1.SBO/ hx long segment SBO s/p resection secondary to ischemic bowel in 07/[address] Brasher - no recurrent nausea, vomiting ,mild abdominal pain - repeat KUB showed persistent dilated loops - continue NG-tube , continue IV protonix, IV TPN - IV tylenol and torodol PRN for pain, avoid opioids - treatment plan as per General surgery 2.Hypokalemia - replete, monitor BMP 3.Hx DVT/PE - on xarelto, last dose 04/24 in the afternoon, will hold for now in case need surgical intervention. 4.Guillain [place] - IVIG monthly, last 2 weeks ago full code on subQ heparin ,will need to resume xarelto when appropriate Pt with SBO complicated by hypotension and hypokalemia likely from GI losses, requiring hospitalization for persistent small-bowel obstruction requiring TPN and remains NPO Quality Stroke Does the patient have a stroke diagnosis?: No VTE Prior VTE?: Yes VTE Risk Level:: Medical - moderate - high VTE Device Contraindication: N/A - Device Ordered VTE Drug Contraindication: Treatment Not Indicated
[2024-05-02] MEDS: Potassium Chloride ER 20 MEQ TAB.ER.PRT 40 MEQ PO (13:31)
[2024-05-02] MEDS: Lactated Ringers 500 ML IVCONT (13:34)
--- NOTE | 2024-05-02 13:40 | PM.EVENT ---
Event Note Date of Service: 05/02/24 Event Note: Seen on early afternoon rounds He continues to feel well He has passed some flatus Abdomen is soft, benign and nontender NG tube output minimal Okay to have ice chips TPN Urine very concentrated - bolus of 500 cc of IV fluids ordered Time Spent With Patient Time: Total time managing care of this patient today ____ minutes.
[2024-05-02] MEDS: Potassium Chloride/H20 10 MEQ/100 ML PIGGYBACK 100 MEQ IV ×2 (14:52→16:03)
[2024-05-02] MEDS: 0.9 % Sodium Chloride Flush 10 ML SYRINGE 5 ML IVFLUSH ×2 (14:58→20:52)
[2024-05-02 15:27] VITALS: BP 115/73; PULSE 101; RESP 19; TEMP 36.3; O2SAT 98
--- NOTE | 2024-05-02 16:21 | PC.NURSE ---
NG tube clamped for PO K+ and to allow patient to wash up. Dr. Tai aware of need to clamp. When intermittent suction resumed 1 hour later, 800ml drainage removed. Per patient was not having nausea or abd pain prior to suction being hooked up. Prior to that output for shift was only 150ml. Will continue to monitor.
[2024-05-02 19:46] VITALS: BP 98/67; PULSE 93; RESP 18; O2SAT 98
[2024-05-02] MEDS: Parenteral Nutrition 1,440 ML 60 ML IV (20:54)
[2024-05-03 04:00] VITALS: BP 111/77; PULSE 91; RESP 18; TEMP 36.5; O2SAT 97
[2024-05-03] MEDS: Pantoprazole Sodium 40 MG/10 ML VIAL IVPUSH ×2 (05:50→16:21)
[2024-05-03 07:02] LABS: Alanine Aminotransferase 229 U/L (0-40); Albumin Level 3.7 g/dL (3.5-5.0); Alkaline Phosphatase 96 U/L (39-117); Anion Gap 13 (12-20); Aspartate Amino Transferase 71 U/L (5-37); Bilirubin Total 0.6 mg/dL (0.0-1.0); Blood Urea Nitrogen 28 mg/dL (9-16); Calcium 9.6 mg/dL (8.4-10.2); Carbon Dioxide 24 mmol/L (22-29); Chloride 108 mmol/L (96-108); Creatinine Clr Calc Pharmacy 162.8; Estimated Glomerular Filt Rate > 60; Glucose Random 153 mg/dL (60-115); Magnesium 2.3 mg/dL (1.6-2.6); Phosphorus 3.2 mg/dL (2.7-4.5); Potassium 3.5 mmol/L (3.3-5.1); Sodium 141 mmol/L (135-145); Total Protein 8.2 g/dL (6.5-8.0)
[2024-05-03] MEDS: 0.9 % Sodium Chloride Flush 10 ML SYRINGE 5 ML IVFLUSH ×3 (07:25→20:23)
[2024-05-03] MEDS: Heparin Sodium,Porcine 5,000 UNIT/ML VIAL 5000 UNIT SUBCUT ×2 (07:25→19:34)
[2024-05-03 07:47] VITALS: BP 104/68; PULSE 91; RESP 18; TEMP 36.4; O2SAT 99
--- NOTE | 2024-05-03 08:19 | PM.PNGS ---
Subjective Subjective Date of Service: 05/04/24 Interval history: Had passed small BMs overnight Has flatus although not consistent yet Feels much better overall he says Physical Exam Vital Signs: Vital Signs: Last Vital Signs Temp 97.6 F 05/03/24 07:47 Pulse 91 05/03/24 07:47 Resp 18 05/03/24 07:47 BP 104/68 05/03/24 07:47 Pulse Ox 99 05/03/24 07:47 O2 Del Method Room Air 05/03/24 07:47 BMI result Body Mass Index 30.4 Const: General: comfortable and no acute distress Resp: Effort & Inspection: normal respiratory effort Cardio: Rate: regular rate GI: Palpation (GI): Soft to palpation, not firm, nontender and no guarding Objective Data Active Medications Acetaminophen (Acetaminophen 325 Mg Tablet) 650 mg PO Q6H PRN PRN Reason: Pain, Mild (Pain Scale 1-3), fever or headache Calcium Carbonate (Calcium Carbonate 750 Mg Tab.Chew) 750 mg PO Q4H PRN PRN Reason: Heartburn Heparin Sodium (Porcine) (Heparin Sodium,Porcine 5,000 Unit/Ml Vial) 5,000 unit SUBCUT Q12H [facility] Last Admin: 05/03/24 07:25 Dose: 5,000 unit Documented By: WILLIAM Nutrition (Parenteral) (Parenteral Nutrition) 1,440 mls @ 60 mls/hr IV .Q24H [facility]; Protocol Stop: 05/03/24 20:59 Last Admin: 05/02/24 20:54 Dose: 60 mls/hr Documented By: SHANIA Magnesium Hydroxide (Milk Of Magnesia 30 Ml Oral.Susp) 30 ml PO DAILY PRN PRN Reason: Constipation Melatonin (Melatonin 3 Mg Tablet) 6 mg PO BEDTIME PRN PRN Reason: Insomnia Ondansetron HCl (Ondansetron Hcl 4 Mg/2 Ml Vial) 4 mg IVPUSH Q8H PRN PRN Reason: Nausea and Vomiting Pantoprazole Sodium (Pantoprazole Sodium 40 Mg/10 Ml Vial) 40 mg IVPUSH BID@0630,1630 [facility] Last Admin: 05/03/24 05:50 Dose: 40 mg Documented By: SHANIA Sodium Chloride (0.9 % Sodium Chloride Flush 3 Ml Syringe) 3 ml IVFLUSH QSHIFT [facility] Last Admin: 05/03/24 07:07 Dose: Not Given Documented By: WILLIAM Non-Admin Reason: flush PICC with 5ml NS Sodium Chloride (0.9 % Sodium Chloride Flush 10 Ml Syringe) 5 ml IVFLUSH TID [facility] Last Admin: 05/03/24 07:25 Dose: 5 ml Documented By: WILLIAM Labs 05/01/24 05:47 05/04/24 06:42 Labs: Laboratory Results - last 24 hr 05/03/24 05:47 Anion Gap 13 Estim Creat Clear Calc 162.8 Estimated GFR > 60 Random Glucose 153 H Calcium 9.6 D Phosphorus 3.2 Magnesium 2.3 Total Bilirubin 0.6 AST 71 H ALT 229 H Alkaline Phosphatase 96 Total Protein 8.2 H Albumin 3.7 Procedures Date of Service Date of Service: 05/04/24 Progress Note: A&P Assessment and plan (1) Small bowel obstruction: Status: Acute Assessment and Plan: Has started to pass flatus and small BMs Plan to clamp NG tube and release after 4 hours for now Continue TPN Bedside PT Looks well overall Exam remains very benign Keep NG tube in Time Spent With Patient Time: Total time managing care of this patient today ____ minutes. Quality Stroke Does the patient have a stroke diagnosis?: No VTE Prior VTE?: Yes VTE Risk Level:: Medical - moderate - high VTE Device Contraindication: N/A - Device Ordered VTE Drug Contraindication: Treatment Not Indicated
--- NOTE | 2024-05-03 10:35 | MHC.CLN ---
F/U CONTINUES NPO WITH TPN. LABS REVIEWED. COMMUNICATED WITH PHARMACY. REC ADVANCE TPN TO MAX GOAL RATE: TPN AT 85 ML PER HOUR, ADD 76 G LIPIDS TO PROVIDE 102 G PROTEIN (1.15 G/KG IBW), 306 G DEXTROSE, 2208 TOTAL KCALS (24.8 KCALS/KG IBW). REPLETE LYTES NEEDED. FOLLOW FOR TPN TOLERANCE AND DIET ADVANCEMENT.
[2024-05-03 10:58] VITALS: BP 104/68; PULSE 91; O2SAT 99
--- NOTE | 2024-05-03 11:44 | MHC.CM.PN ---
Per MD rounds patient is not medically cleared for discharge. He continues on TPN. DP home with resumption of [facility] and [facility] services. He will need S for transportation home.
--- NOTE | 2024-05-03 13:41 | P.PNIM_ITS ---
Subjective Subjective Date of Service: 05/03/24 Interval History: Being followed for small-bowel obstruction, denies nausea, no vomiting, no abdominal pain at small bowel movement last night Seen by General surgery NG clamped. Review of Systems All other system reviewed and are negative Physical Exam 2 Vital Signs: Vital Signs: Last Vital Signs Temp 97.6 F 05/03/24 07:47 Pulse 91 05/03/24 10:58 Resp 18 05/03/24 07:47 BP 104/68 05/03/24 10:58 Pulse Ox 99 05/03/24 10:58 O2 Del Method Room Air 05/03/24 07:47 BMI result Body Mass Index 30.4 Const: Other: General resting comfortably in no acute distress. Neck no JVD. CVS regular rate rhythm, Respiratory lungs clear to auscultation, no respiratory distress, no wheeze, no rhonchi. Gastrointestinal abdomen soft, non tender, no guarding , no rigidity. Extremities no edema. Neuro non focal Skin no rash Objective Data Active Medications Acetaminophen (Acetaminophen 325 Mg Tablet) 650 mg PO Q6H PRN PRN Reason: Pain, Mild (Pain Scale 1-3), fever or headache Calcium Carbonate (Calcium Carbonate 750 Mg Tab.Chew) 750 mg PO Q4H PRN PRN Reason: Heartburn Heparin Sodium (Porcine) (Heparin Sodium,Porcine 5,000 Unit/Ml Vial) 5,000 unit SUBCUT Q12H [facility] Last Admin: 05/03/24 07:25 Dose: 5,000 unit Documented By: WILLIAM Nutrition (Parenteral) (Parenteral Nutrition) 1,440 mls @ 60 mls/hr IV .Q24H [facility]; Protocol Stop: 05/03/24 20:59 Last Admin: 05/02/24 20:54 Dose: 60 mls/hr Documented By: SHANIA Nutrition (Parenteral) (Parenteral Nutrition) 2,040 mls @ 85 mls/hr IV .Q24H [facility]; Protocol Stop: 05/04/24 20:59 Magnesium Hydroxide (Milk Of Magnesia 30 Ml Oral.Susp) 30 ml PO DAILY PRN PRN Reason: Constipation Melatonin (Melatonin 3 Mg Tablet) 6 mg PO BEDTIME PRN PRN Reason: Insomnia Ondansetron HCl (Ondansetron Hcl 4 Mg/2 Ml Vial) 4 mg IVPUSH Q8H PRN PRN Reason: Nausea and Vomiting Pantoprazole Sodium (Pantoprazole Sodium 40 Mg/10 Ml Vial) 40 mg IVPUSH BID@0630,1630 [facility] Last Admin: 05/03/24 05:50 Dose: 40 mg Documented By: SHANIA Sodium Chloride (0.9 % Sodium Chloride Flush 3 Ml Syringe) 3 ml IVFLUSH QSHIFT [facility] Last Admin: 05/03/24 07:07 Dose: Not Given Documented By: WILLIAM Non-Admin Reason: flush PICC with 5ml NS Sodium Chloride (0.9 % Sodium Chloride Flush 10 Ml Syringe) 5 ml IVFLUSH TID [facility] Last Admin: 05/03/24 07:25 Dose: 5 ml Documented By: WILLIAM Labs 05/01/24 05:47 05/03/24 05:47 Labs: Laboratory Results - last 24 hr 05/03/24 05:47 Anion Gap 13 Estim Creat Clear Calc 162.8 Estimated GFR > 60 Random Glucose 153 H Calcium 9.6 D Phosphorus 3.2 Magnesium 2.3 Total Bilirubin 0.6 AST 71 H ALT 229 H Alkaline Phosphatase 96 Total Protein 8.2 H Albumin 3.7 Assessment and Plan (1) Acute hypokalemia: Status: Acute (2) Small bowel obstruction: Status: Acute Plan 53 yo male with a pmhx significant for long segment SBO s/p resection secondary to ischemic bowel in 07/[address] Brasher, 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 CT with high grade SBO R mid abdomen. Hypotensive but responsive to 2L of fluids. 1.SBO/ hx long segment SBO s/p resection secondary to ischemic bowel in 07/[address] Brasher - no recurrent nausea, vomiting ,no abdominal pain, had small bowel movement last night - repeat KUB showed persistent dilated loops - continue NG-tube , IV protonix, IV TPN - Tylenol PRN for pain, avoid opioids, IV morphine as needed for severe pain - seen by General surgery plan is to clamp NG and released after 4 hours - bedside PT 2.Hypokalemia repleted and normalized,follow bmp. 3.Hx DVT/PE - on xarelto, last dose 04/24 in the afternoon, will hold for now in case need surgical intervention. 4.Guillain [place]- IVIG monthly, next dose scheduled for 05/08. full code on subQ heparin ,will need to resume xarelto when appropriate Pt with SBO complicated by hypotension and hypokalemia likely from GI losses, requiring hospitalization for persistent small-bowel obstruction requiring TPN and remains NPO Quality Stroke Does the patient have a stroke diagnosis?: No VTE Prior VTE?: Yes VTE Risk Level:: Medical - moderate - high VTE Device Contraindication: N/A - Device Ordered VTE Drug Contraindication: Treatment Not Indicated
[2024-05-03 14:59] VITALS: BP 113/72; PULSE 100; RESP 18; TEMP 36.3; O2SAT 98
[2024-05-03 19:19] VITALS: BP 105/75; PULSE 100; RESP 16; TEMP 36.6; O2SAT 98
[2024-05-03] MEDS: Parenteral Nutrition 2,040 ML 85 ML IV (20:23)
[2024-05-04 04:00] VITALS: BP 112/76; PULSE 94; RESP 18; TEMP 36.7; O2SAT 97
[2024-05-04] MEDS: Pantoprazole Sodium 40 MG/10 ML VIAL IVPUSH ×2 (05:32→16:47)
[2024-05-04 07:10] LABS: Alanine Aminotransferase 164 U/L (0-40); Albumin Level 3.5 g/dL (3.5-5.0); Alkaline Phosphatase 112 U/L (39-117); Anion Gap 14 (12-20); Aspartate Amino Transferase 45 U/L (5-37); Bilirubin Total 0.4 mg/dL (0.0-1.0); Blood Urea Nitrogen 20 mg/dL (9-16); Calcium 9.4 mg/dL (8.4-10.2); Carbon Dioxide 23 mmol/L (22-29); Chloride 110 mmol/L (96-108); Creatinine Clr Calc Pharmacy 167.5; Estimated Glomerular Filt Rate > 60; Glucose Random 129 mg/dL (60-115); Magnesium 2.2 mg/dL (1.6-2.6); Phosphorus 2.8 mg/dL (2.7-4.5); Potassium 3.8 mmol/L (3.3-5.1); Sodium 143 mmol/L (135-145); Total Protein 7.8 g/dL (6.5-8.0)
[2024-05-04 07:31] VITALS: BP 98/69; PULSE 92; RESP 18; TEMP 37.6; O2SAT 99
[2024-05-04] MEDS: Heparin Sodium,Porcine 5,000 UNIT/ML VIAL 5000 UNIT SUBCUT ×2 (07:50→19:18)
[2024-05-04] MEDS: 0.9 % Sodium Chloride Flush 10 ML SYRINGE 5 ML IVFLUSH ×3 (07:52→19:22)
--- NOTE | 2024-05-04 09:22 | P.PNGS_ITS ---
Subjective Subjective Date of Service: 05/04/24 Interval history: States he feels well this morning Has had some small BMs, flatus Denies abdominal pain Physical Exam 2 Vital Signs: Vital Signs: Last Vital Signs Temp 99.6 F 05/04/24 07:31 Pulse 92 05/04/24 07:31 Resp 18 05/04/24 07:31 BP 98/69 05/04/24 07:31 Pulse Ox 99 05/04/24 07:31 O2 Del Method Room Air 05/04/24 04:00 BMI result Body Mass Index 30.4 Const: Other: Looks well General: comfortable and no acute distress Resp: Effort & Inspection: normal respiratory effort Cardio: Rate: regular rate GI: Palpation (GI): Soft to palpation, not firm and nontender Objective Data Active Medications Acetaminophen (Acetaminophen 325 Mg Tablet) 650 mg PO Q6H PRN PRN Reason: Pain, Mild (Pain Scale 1-3), fever or headache Calcium Carbonate (Calcium Carbonate 750 Mg Tab.Chew) 750 mg PO Q4H PRN PRN Reason: Heartburn Heparin Sodium (Porcine) (Heparin Sodium,Porcine 5,000 Unit/Ml Vial) 5,000 unit SUBCUT Q12H [facility] Last Admin: 05/04/24 07:50 Dose: 5,000 unit Documented By: WILLIAM Nutrition (Parenteral) (Parenteral Nutrition) 2,040 mls @ 85 mls/hr IV .Q24H [facility]; Protocol Stop: 05/04/24 20:59 Last Admin: 05/03/24 20:23 Dose: 85 mls/hr Documented By: SHANIA Magnesium Hydroxide (Milk Of Magnesia 30 Ml Oral.Susp) 30 ml PO DAILY PRN PRN Reason: Constipation Melatonin (Melatonin 3 Mg Tablet) 6 mg PO BEDTIME PRN PRN Reason: Insomnia Morphine Sulfate (Morphine Sulfate 2 Mg/Ml Cartridge) 2 mg IVPUSH Q6H [facility]; Protocol PRN Reason: Pain, Severe (Pain Scale 7-10) Ondansetron HCl (Ondansetron Hcl 4 Mg/2 Ml Vial) 4 mg IVPUSH Q8H PRN PRN Reason: Nausea and Vomiting Pantoprazole Sodium (Pantoprazole Sodium 40 Mg/10 Ml Vial) 40 mg IVPUSH BID@0630,1630 [facility] Last Admin: 05/04/24 05:32 Dose: 40 mg Documented By: SHANIA Sodium Chloride (0.9 % Sodium Chloride Flush 3 Ml Syringe) 3 ml IVFLUSH QSHIFT [facility] Last Admin: 05/04/24 07:53 Dose: Not Given Documented By: WILLIAM Non-Admin Reason: given 5ml flush Sodium Chloride (0.9 % Sodium Chloride Flush 10 Ml Syringe) 5 ml IVFLUSH TID [facility] Last Admin: 05/04/24 07:52 Dose: 5 ml Documented By: WILLIAM Labs 05/01/24 05:47 05/04/24 06:42 Labs: Laboratory Results - last 24 hr 05/04/24 06:42 Anion Gap 14 Estim Creat Clear Calc 167.5 Estimated GFR > 60 Random Glucose 129 H Calcium 9.4 Phosphorus 2.8 Magnesium 2.2 Total Bilirubin 0.4 AST 45 H ALT 164 H Alkaline Phosphatase 112 Total Protein 7.8 Albumin 3.5 Procedures Date of Service Date of Service: 05/04/24 Progress Note: A&P Assessment and plan (1) Small bowel obstruction: Status: Acute Assessment and Plan: NG tube output not a lot Passing flatus and BMs Abdomen remained soft and benign He looks well Clamp NG tube for 4 hours and check residuals thereafter TPN Time Spent With Patient Time: Total time managing care of this patient today ____ minutes. Quality Stroke Does the patient have a stroke diagnosis?: No VTE Prior VTE?: Yes VTE Risk Level:: Medical - moderate - high VTE Device Contraindication: N/A - Device Ordered VTE Drug Contraindication: Treatment Not Indicated
--- NOTE | 2024-05-04 10:01 | MHC.CLN ---
F/U LABS REVIEWED DISCUSSED WITH PHARMACY CONTINUE TPN AT MAX GOAL RATE OF 85 ML PER HOUR WITH 76 G LIPIDS PROVIDES 2208 TOTAL KCALS (24.8 KCALS/KG IBW), 102 G PROTEIN (1.15 G/KG IBW), 306 G DEXTROSE REPLETE LYTES NEEDED
--- NOTE | 2024-05-04 11:54 | HO.PM.IMPN ---
Subjective Subjective Date of Service: 05/04/24 Interval History: Being followed for small-bowel obstruction Patient denies abdominal pain, passing flatus and small bowel movements, denies nausea vomiting, NG clamped Review of Systems All other system reviewed and are negative. Physical Exam Vital Signs: Vital Signs: Last Vital Signs Temp 99.6 F 05/04/24 07:31 Pulse 92 05/04/24 07:31 Resp 18 05/04/24 07:31 BP 98/69 05/04/24 07:31 Pulse Ox 99 05/04/24 07:31 O2 Del Method Room Air 05/04/24 04:00 BMI result Body Mass Index 30.4 Const: Other: General resting comfortably in no acute distress. Neck no JVD. CVS regular rate rhythm, Respiratory lungs clear to auscultation, no respiratory distress, no wheeze, no rhonchi. Gastrointestinal abdomen soft, non tender, no guarding , no rigidity, bowel sounds audible. Extremities no edema. PICC line left arm Neuro non focal Skin no rash Objective Data Active Medications Acetaminophen (Acetaminophen 325 Mg Tablet) 650 mg PO Q6H PRN PRN Reason: Pain, Mild (Pain Scale 1-3), fever or headache Calcium Carbonate (Calcium Carbonate 750 Mg Tab.Chew) 750 mg PO Q4H PRN PRN Reason: Heartburn Heparin Sodium (Porcine) (Heparin Sodium,Porcine 5,000 Unit/Ml Vial) 5,000 unit SUBCUT Q12H [facility] Last Admin: 05/04/24 07:50 Dose: 5,000 unit Documented By: WILLAIM Nutrition (Parenteral) (Parenteral Nutrition) 2,040 mls @ 85 mls/hr IV .Q24H [facility]; Protocol Stop: 05/04/24 20:59 Last Admin: 05/03/24 20:23 Dose: 85 mls/hr Documented By: SHANIA Nutrition (Parenteral) (Parenteral Nutrition) 2,040 mls @ 85 mls/hr IV .Q24H [facility]; Protocol Stop: 05/05/24 20:59 Magnesium Hydroxide (Milk Of Magnesia 30 Ml Oral.Susp) 30 ml PO DAILY PRN PRN Reason: Constipation Melatonin (Melatonin 3 Mg Tablet) 6 mg PO BEDTIME PRN PRN Reason: Insomnia Morphine Sulfate (Morphine Sulfate 2 Mg/Ml Cartridge) 2 mg IVPUSH Q6H PRN; Protocol PRN Reason: Pain, Severe (Pain Scale 7-10) Ondansetron HCl (Ondansetron Hcl 4 Mg/2 Ml Vial) 4 mg IVPUSH Q8H PRN PRN Reason: Nausea and Vomiting Pantoprazole Sodium (Pantoprazole Sodium 40 Mg/10 Ml Vial) 40 mg IVPUSH BID@0630,1630 [facility] Last Admin: 05/04/24 05:32 Dose: 40 mg Documented By: SHANIA Sodium Chloride (0.9 % Sodium Chloride Flush 3 Ml Syringe) 3 ml IVFLUSH QSHIFT [facility] Last Admin: 05/04/24 07:53 Dose: Not Given Documented By: WILLIAM Non-Admin Reason: given 5ml flush Sodium Chloride (0.9 % Sodium Chloride Flush 10 Ml Syringe) 5 ml IVFLUSH TID [facility] Last Admin: 05/04/24 07:52 Dose: 5 ml Documented By: WILLIAM Labs 05/01/24 05:47 05/04/24 06:42 Labs: Laboratory Results - last 24 hr 05/04/24 06:42 Anion Gap 14 Estim Creat Clear Calc 167.5 Estimated GFR > 60 Random Glucose 129 H Calcium 9.4 Phosphorus 2.8 Magnesium 2.2 Total Bilirubin 0.4 AST 45 H ALT 164 H Alkaline Phosphatase 112 Total Protein 7.8 Albumin 3.5 Assessment and Plan (1) Small bowel obstruction: Status: Acute (2) Acute hypokalemia: Status: Acute Plan 53 yo male with a pmhx significant for long segment SBO s/p resection secondary to ischemic bowel in 07/[address] Brasher, 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 CT with high grade SBO R mid abdomen. Hypotensive but responsive to 2L of fluids. 1.SBO/ hx long segment SBO s/p resection secondary to ischemic bowel in 07/[address] Brasher - no recurrent nausea, vomiting ,no abdominal pain, had small bowel movement last night - repeat KUB showed persistent dilated loops - continue NG-tube , IV protonix, IV TPN - Tylenol PRN for pain, avoid opioids, IV morphine as needed for severe pain - seen by General surgery plan is to clamp NG and released after 4 hours , advance diet as per surgery - bedside PT 2.Hypokalemia repleted and normalized,follow bmp. 3.Hx DVT/PE - on xarelto, last dose 04/24 in the afternoon, will hold for now in case need surgical intervention. 4.Guillain [place]- IVIG monthly, next dose scheduled for 05/08. full code on subQ heparin/compression boots, will need to resume xarelto when appropriate Pt. with SBO complicated by hypotension and hypokalemia likely from GI losses, requiring hospitalization for persistent small-bowel obstruction requiring TPN and remains NPO. Quality Stroke Does the patient have a stroke diagnosis?: No VTE Prior VTE?: Yes VTE Risk Level:: Medical - moderate - high VTE Device Contraindication: N/A - Device Ordered VTE Drug Contraindication: Treatment Not Indicated
--- NOTE | 2024-05-04 15:29 | PM.EVENT ---
Event Note Date of Service: 05/04/24 Event Note: I had clamped his NG tube for 4 hours and he said he did not not have any nausea No significant residuals when the NG tube was placed back on intermittent suction He continues to feel comfortable He said he has passed flatus today Abdominal exam remains very benign I have put back the NG tube to intermittent suction will clamp again tomorrow morning Time Spent With Patient Time: Total time managing care of this patient today ____ minutes.
[2024-05-04 15:31] VITALS: BP 100/72; PULSE 107; RESP 18; TEMP 36.2; O2SAT 97
[2024-05-04 19:12] VITALS: BP 107/68; PULSE 108; RESP 18; TEMP 36.3; O2SAT 97
[2024-05-04] MEDS: Parenteral Nutrition 2,040 ML 85 ML IV (19:21)
[2024-05-05] MEDS: Pantoprazole Sodium 40 MG/10 ML VIAL IVPUSH ×2 (05:35→17:11)
[2024-05-05 06:36] LABS: Alanine Aminotransferase 127 U/L (0-40); Albumin Level 3.6 g/dL (3.5-5.0); Alkaline Phosphatase 103 U/L (39-117); Anion Gap 15 (12-20); Aspartate Amino Transferase 37 U/L (5-37); Bilirubin Total 0.5 mg/dL (0.0-1.0); Blood Urea Nitrogen 19 mg/dL (9-16); Calcium 9.6 mg/dL (8.4-10.2); Carbon Dioxide 23 mmol/L (22-29); Chloride 111 mmol/L (96-108); Creatinine Clr Calc Pharmacy 169.9; Estimated Glomerular Filt Rate > 60; Glucose Random 126 mg/dL (60-115); Magnesium 2.1 mg/dL (1.6-2.6); Phosphorus 3.5 mg/dL (2.7-4.5); Sodium 145 mmol/L (135-145); Total Protein 7.9 g/dL (6.5-8.0)
[2024-05-05 07:37] VITALS: BP 111/71; PULSE 102; RESP 14; TEMP 36; O2SAT 96
--- NOTE | 2024-05-05 08:08 | P.PNGS_ITS ---
Subjective Subjective Date of Service: 05/05/24 Interval history: states he feels well this morning Continues to pass flatus periodically Had small BM yesterday Physical Exam 2 Vital Signs: Vital Signs: Last Vital Signs Temp 96.8 F 05/05/24 07:37 Pulse 102 H 05/05/24 07:37 Resp 14 05/05/24 07:37 BP 111/71 05/05/24 07:37 Pulse Ox 96 05/05/24 07:37 O2 Del Method Room Air 05/05/24 07:37 BMI result Body Mass Index 30.4 Const: General: comfortable and no acute distress Resp: Effort & Inspection: normal respiratory effort Cardio: Rhythm: regular rhythm GI: Palpation (GI): Soft to palpation, not firm, nontender and no guarding Objective Data Active Medications Acetaminophen (Acetaminophen 325 Mg Tablet) 650 mg PO Q6H PRN PRN Reason: Pain, Mild (Pain Scale 1-3), fever or headache Calcium Carbonate (Calcium Carbonate 750 Mg Tab.Chew) 750 mg PO Q4H PRN PRN Reason: Heartburn Heparin Sodium (Porcine) (Heparin Sodium,Porcine 5,000 Unit/Ml Vial) 5,000 unit SUBCUT Q12H [facility] Last Admin: 05/04/24 19:18 Dose: 5,000 unit Documented By: STELLA Nutrition (Parenteral) (Parenteral Nutrition) 2,040 mls @ 85 mls/hr IV .Q24H [facility]; Protocol Stop: 05/05/24 20:59 Last Admin: 05/04/24 19:21 Dose: 85 mls/hr Documented By: STELLA Magnesium Hydroxide (Milk Of Magnesia 30 Ml Oral.Susp) 30 ml PO DAILY PRN PRN Reason: Constipation Melatonin (Melatonin 3 Mg Tablet) 6 mg PO BEDTIME PRN PRN Reason: Insomnia Morphine Sulfate (Morphine Sulfate 2 Mg/Ml Cartridge) 2 mg IVPUSH Q6H PRN; Protocol PRN Reason: Pain, Severe (Pain Scale 7-10) Ondansetron HCl (Ondansetron Hcl 4 Mg/2 Ml Vial) 4 mg IVPUSH Q8H PRN PRN Reason: Nausea and Vomiting Pantoprazole Sodium (Pantoprazole Sodium 40 Mg/10 Ml Vial) 40 mg IVPUSH BID@0630,1630 [facility] Last Admin: 05/05/24 05:35 Dose: 40 mg Documented By: STELLA Sodium Chloride (0.9 % Sodium Chloride Flush 3 Ml Syringe) 3 ml IVFLUSH QSHIFT [facility] Last Admin: 05/04/24 19:22 Dose: Not Given Documented By: STELLA Non-Admin Reason: picc flushed Sodium Chloride (0.9 % Sodium Chloride Flush 10 Ml Syringe) 5 ml IVFLUSH TID [facility] Last Admin: 05/04/24 19:22 Dose: 5 ml Documented By: STELLA Labs 05/01/24 05:47 05/05/24 06:03 Labs: Laboratory Results - last 24 hr 05/05/24 06:03 Hold Purple Top SEE NOTE Anion Gap 15 Estim Creat Clear Calc 169.9 Estimated GFR > 60 Random Glucose 126 H Calcium 9.6 Phosphorus 3.5 Magnesium 2.1 Total Bilirubin 0.5 AST 37 ALT 127 H Alkaline Phosphatase 103 Total Protein 7.9 Albumin 3.6 Procedures Date of Service Date of Service: 05/05/24 Progress Note: A&P Assessment and plan (1) Small bowel obstruction: Status: Acute Assessment and Plan: Continues to pass flatus NG tube output not a lot Abdomen very soft and benign Denies any pain or tenderness We will clamp NG tube for 6 hours today and release, check residuals Continue TPN Keep NG tube in Time Spent With Patient Time: Total time managing care of this patient today ____ minutes. Quality Stroke Does the patient have a stroke diagnosis?: No VTE Prior VTE?: Yes VTE Risk Level:: Medical - moderate - high VTE Device Contraindication: N/A - Device Ordered VTE Drug Contraindication: Treatment Not Indicated
[2024-05-05] MEDS: Heparin Sodium,Porcine 5,000 UNIT/ML VIAL 5000 UNIT SUBCUT (08:10)
[2024-05-05] MEDS: 0.9 % Sodium Chloride Flush 3 ML SYRINGE IVFLUSH ×2 (08:11→15:50)
[2024-05-05] MEDS: 0.9 % Sodium Chloride Flush 10 ML SYRINGE 5 ML IVFLUSH ×3 (08:11→22:27)
--- NOTE | 2024-05-05 08:18 | PC.NURSE ---
Addendum entered by She Garcia RN 05/05/24 15:15: Per orders, NGT clamped for 6 hours residual checked at 1420 for 30ml. MD Brasher made aware. Per provider pt back to intermittent suction. Pt aware and agreeable to plan. Original Note: per dr Brasher, clamped pt NGT
--- NOTE | 2024-05-05 10:23 | MHC.CLN ---
F/U CONTINUES NPO WITH TPN. LABS REVIEWED. COMMUNICATED WITH PHARMACY. CONTINUE TPN AT MAX GOAL RATE OF 85 ML PER HOUR WITH 76 G LIPIDS PROVIDES 2208 TOTAL KCALS (24.8 KCALS/KG IBW), 102 G PROTEIN (1.15 G/KG IBW), 306 G DEXTROSE. REPLETE LYTES NEEDED. FOLLOW FOR DIET ADVANCED AND TPN TOLERANCE.
--- NOTE | 2024-05-05 11:06 | HO.PM.IMPN ---
Subjective Subjective Date of Service: 05/05/24 Interval History: passing flatus no abd pain BM yesterday Review of Systems Review of Systems: Yes all other systems are reviewed and are negative Physical Exam Vital Signs: Vital Signs: Last Vital Signs Temp 96.8 F 05/05/24 07:37 Pulse 102 H 05/05/24 07:37 Resp 14 05/05/24 07:37 BP 111/71 05/05/24 07:37 Pulse Ox 96 05/05/24 07:37 O2 Del Method Room Air 05/05/24 07:37 BMI result Body Mass Index 30.4 Gen: in no acute distress HEENT: sclera anicteric, moist mucus membranes Neck: supple Lungs: clear to auscultation bilaterally Heart: regular rate and rhythm, no murmurs Abd: soft, non-tender, non-distended, normal bowel sounds Ext: no edema, LUE PICC in place Skin: warm/well-perfused Neuro: alert and oriented x3, no focal findings Psych: appropriate affect Const: Other: General resting comfortably in no acute distress. Neck no JVD. CVS regular rate rhythm, Respiratory lungs clear to auscultation, no respiratory distress, no wheeze, no rhonchi. Gastrointestinal abdomen soft, non tender, no guarding , no rigidity, bowel sounds audible. Extremities no edema. PICC line left arm Neuro non focal Skin no rash Objective Data Active Medications Acetaminophen (Acetaminophen 325 Mg Tablet) 650 mg PO Q6H PRN PRN Reason: Pain, Mild (Pain Scale 1-3), fever or headache Calcium Carbonate (Calcium Carbonate 750 Mg Tab.Chew) 750 mg PO Q4H PRN PRN Reason: Heartburn Heparin Sodium (Porcine) (Heparin Sodium,Porcine 5,000 Unit/Ml Vial) 5,000 unit SUBCUT Q12H [facility] Last Admin: 05/05/24 08:10 Dose: 5,000 unit Documented By: FARHAN Nutrition (Parenteral) (Parenteral Nutrition) 2,040 mls @ 85 mls/hr IV .Q24H [facility]; Protocol Stop: 05/05/24 20:59 Last Admin: 05/04/24 19:21 Dose: 85 mls/hr Documented By: STELLA Magnesium Hydroxide (Milk Of Magnesia 30 Ml Oral.Susp) 30 ml PO DAILY PRN PRN Reason: Constipation Melatonin (Melatonin 3 Mg Tablet) 6 mg PO BEDTIME PRN PRN Reason: Insomnia Morphine Sulfate (Morphine Sulfate 2 Mg/Ml Cartridge) 2 mg IVPUSH Q6H PRN; Protocol PRN Reason: Pain, Severe (Pain Scale 7-10) Ondansetron HCl (Ondansetron Hcl 4 Mg/2 Ml Vial) 4 mg IVPUSH Q8H PRN PRN Reason: Nausea and Vomiting Pantoprazole Sodium (Pantoprazole Sodium 40 Mg/10 Ml Vial) 40 mg IVPUSH BID@0630,1630 [facility] Last Admin: 05/05/24 05:35 Dose: 40 mg Documented By: STELLA Sodium Chloride (0.9 % Sodium Chloride Flush 3 Ml Syringe) 3 ml IVFLUSH QSHIFT [facility] Last Admin: 05/05/24 08:11 Dose: 3 ml Documented By: FARHAN Sodium Chloride (0.9 % Sodium Chloride Flush 10 Ml Syringe) 5 ml IVFLUSH TID [facility] Last Admin: 05/05/24 08:11 Dose: 5 ml Documented By: FARHAN Labs 05/01/24 05:47 05/05/24 06:03 Labs: Laboratory Results - last 24 hr 05/05/24 06:03 Hold Purple Top SEE NOTE Anion Gap 15 Estim Creat Clear Calc 169.9 Estimated GFR > 60 Random Glucose 126 H Calcium 9.6 Phosphorus 3.5 Magnesium 2.1 Total Bilirubin 0.5 AST 37 ALT 127 H Alkaline Phosphatase 103 Total Protein 7.9 Albumin 3.6 Assessment and Plan (1) Small bowel obstruction: Status: Acute (2) Acute hypokalemia: Status: Acute Plan d10 for 53yo M with hx long segment SBO s/p resection for ischemic bowel in July 2023, 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 Found to have high-grade SBO. Hypotensive but fluid-responsive. SBO - Gen Surg following, NGT clamped and to release in 6hr with residual check - continue IV TPN for now; remains NPO - continue PT hypoK - repleted hx DVT/PE - resume rivaroxaban; cleared with Gen Surg GBS - next IVIg due 05/08 VTE ppx - rivaroxaban dispo - eventual home with VNA In my clinical judgment, the patient requires continued inpatient hospitalization for the following reasons: SBO, TPN Total time managing care of this patient today: 35 minutes. Quality Stroke Does the patient have a stroke diagnosis?: No VTE Prior VTE?: Yes VTE Risk Level:: Medical - moderate - high VTE Device Contraindication: N/A - Device Ordered VTE Drug Contraindication: Treatment Not Indicated
[2024-05-05 11:46] VITALS: BP 111/71; PULSE 102; O2SAT 96
--- NOTE | 2024-05-05 14:32 | PM.EVENT ---
Event Note Date of Service: 05/08/24 Event Note: NG tube clamped for 6 hours today residuals noted to be about 35 cc He denied any problems while NG tube was clamped He says he has passed flatus today Abdomen remained soft and benign Plan to clamp NG tube for 12 hours tomorrow and unclamp He understands the plan Time Spent With Patient Time: Total time managing care of this patient today ____ minutes.
[2024-05-05 15:12] VITALS: BP 104/72; PULSE 107; RESP 16; TEMP 37.3; O2SAT 96
[2024-05-05 20:00] VITALS: BP 95/66; PULSE 101; RESP 18; TEMP 36.4; O2SAT 96
[2024-05-05] MEDS: Parenteral Nutrition 2,040 ML 85 ML IV (22:27)
[2024-05-06 03:51] VITALS: BP 106/78; PULSE 95; RESP 16; TEMP 36.4; O2SAT 97
[2024-05-06] MEDS: Pantoprazole Sodium 40 MG/10 ML VIAL IVPUSH ×2 (06:02→16:15)
[2024-05-06 06:59] LABS: Alanine Aminotransferase 121 U/L (0-40); Albumin Level 3.7 g/dL (3.5-5.0); Alkaline Phosphatase 115 U/L (39-117); Anion Gap 15 (12-20); Aspartate Amino Transferase 45 U/L (5-37); Bilirubin Total 0.4 mg/dL (0.0-1.0); Blood Urea Nitrogen 22 mg/dL (9-16); Calcium 10.1 mg/dL (8.4-10.2); Carbon Dioxide 25 mmol/L (22-29); Chloride 109 mmol/L (96-108); Creatinine Clr Calc Pharmacy 177.6; Estimated Glomerular Filt Rate > 60; Glucose Random 166 mg/dL (60-115); Magnesium 2.3 mg/dL (1.6-2.6); Phosphorus 3.8 mg/dL (2.7-4.5); Potassium 4.3 mmol/L (3.3-5.1); Sodium 145 mmol/L (135-145); Total Protein 8.1 g/dL (6.5-8.0)
[2024-05-06 08:00] VITALS: BP 121/84; PULSE 93; RESP 18; TEMP 36.3; O2SAT 98
--- NOTE | 2024-05-06 08:08 | PM.PNGS ---
Subjective Subjective Date of Service: 05/06/24 Interval history: Patient resting comfortably. Denies significant abdominal pain at this time. Reports having a bowel movement. NG tube in place. Physical Exam Vital Signs: Vital Signs: Last Vital Signs Temp 97.6 F 05/06/24 03:51 Pulse 95 05/06/24 03:51 Resp 16 05/06/24 03:51 BP 106/78 05/06/24 03:51 Pulse Ox 97 05/06/24 03:51 O2 Del Method Room Air 05/06/24 03:51 BMI result Body Mass Index 30.4 Const: General: comfortable and no acute distress Resp: Effort & Inspection: normal respiratory effort Cardio: Rhythm: regular rhythm GI: Palpation (GI): Soft to palpation, not firm, nontender and no guarding Objective Data Active Medications Acetaminophen (Acetaminophen 325 Mg Tablet) 650 mg PO Q6H PRN PRN Reason: Pain, Mild (Pain Scale 1-3), fever or headache Calcium Carbonate (Calcium Carbonate 750 Mg Tab.Chew) 750 mg PO Q4H PRN PRN Reason: Heartburn Nutrition (Parenteral) (Parenteral Nutrition) 2,040 mls @ 85 mls/hr IV .Q24H [facility]; Protocol Stop: 05/06/24 20:59 Last Admin: 05/05/24 22:27 Dose: 85 mls/hr Documented By: ANUSHA Magnesium Hydroxide (Milk Of Magnesia 30 Ml Oral.Susp) 30 ml PO DAILY PRN PRN Reason: Constipation Melatonin (Melatonin 3 Mg Tablet) 6 mg PO BEDTIME PRN PRN Reason: Insomnia Morphine Sulfate (Morphine Sulfate 2 Mg/Ml Cartridge) 2 mg IVPUSH Q6H PRN; Protocol PRN Reason: Pain, Severe (Pain Scale 7-10) Ondansetron HCl (Ondansetron Hcl 4 Mg/2 Ml Vial) 4 mg IVPUSH Q8H PRN PRN Reason: Nausea and Vomiting Pantoprazole Sodium (Pantoprazole Sodium 40 Mg/10 Ml Vial) 40 mg IVPUSH BID@0630,1630 [facility] Last Admin: 05/06/24 06:02 Dose: 40 mg Documented By: ANUSHA Rivaroxaban (Rivaroxaban 20 Mg Tablet) 20 mg PO DAILY@0800 [facility] Sodium Chloride (0.9 % Sodium Chloride Flush 3 Ml Syringe) 3 ml IVFLUSH QSHIFT [facility] Last Admin: 05/06/24 00:22 Dose: Not Given Documented By: ANUSHA Non-Admin Reason: PICC Sodium Chloride (0.9 % Sodium Chloride Flush 10 Ml Syringe) 5 ml IVFLUSH TID [facility] Last Admin: 05/05/24 22:27 Dose: 5 ml Documented By: ANUSHA Labs 05/01/24 05:47 05/06/24 05:59 Labs: Laboratory Results - last 24 hr 05/06/24 05:59 Hold Purple Top SEE NOTE Anion Gap 15 Estim Creat Clear Calc 177.6 Estimated GFR > 60 Random Glucose 166 H Calcium 10.1 Phosphorus 3.8 Magnesium 2.3 Total Bilirubin 0.4 AST 45 H ALT 121 H Alkaline Phosphatase 115 Total Protein 8.1 H Albumin 3.7 Procedures Date of Service Date of Service: 05/06/24 Progress Note: A&P Assessment and plan (1) Small bowel obstruction: Status: Acute Assessment and Plan: Abdomen soft and nondistended, patient passing flatus and BM. Continues to pass flatus 1 L NG tube output come bilious fluid Plan for NG tube clamping for 12 hours, check residuals and returned to suction. Continue TPN. Time Spent With Patient Time: Total time managing care of this patient today ____ minutes. Quality Stroke Does the patient have a stroke diagnosis?: No VTE Prior VTE?: Yes VTE Risk Level:: Medical - moderate - high VTE Device Contraindication: N/A - Device Ordered VTE Drug Contraindication: Treatment Not Indicated
[2024-05-06] MEDS: 0.9 % Sodium Chloride Flush 3 ML SYRINGE IVFLUSH (09:20)
[2024-05-06] MEDS: Enoxaparin Sodium 40 MG/0.4 ML SYRINGE SUBCUT (09:21)
--- NOTE | 2024-05-06 12:19 | P.PNIM_ITS ---
Subjective Subjective Date of Service: 05/06/24 Interval History: had 800 mL bilious output from NGT overnight NGT now clamped no abd pain, passing gas Review of Systems Review of Systems: Yes all other systems are reviewed and are negative Physical Exam 2 Vital Signs: Vital Signs: Last Vital Signs Temp 97.4 F 05/06/24 08:00 Pulse 93 05/06/24 08:00 Resp 18 05/06/24 08:00 BP 121/84 05/06/24 08:00 Pulse Ox 98 05/06/24 08:00 O2 Del Method Room Air 05/06/24 08:00 BMI result Body Mass Index 30.4 Gen: in no acute distress HEENT: sclera anicteric, moist mucus membranes Neck: supple Lungs: clear to auscultation bilaterally Heart: regular rate and rhythm, no murmurs Abd: soft, non-tender, non-distended, normal bowel sounds Ext: no edema, LUE PICC in place Skin: warm/well-perfused Neuro: alert and oriented x3, no focal findings Psych: appropriate affect Objective Data Active Medications Acetaminophen (Acetaminophen 325 Mg Tablet) 650 mg PO Q6H PRN PRN Reason: Pain, Mild (Pain Scale 1-3), fever or headache Calcium Carbonate (Calcium Carbonate 750 Mg Tab.Chew) 750 mg PO Q4H PRN PRN Reason: Heartburn Enoxaparin Sodium (Enoxaparin Sodium 40 Mg/0.4 Ml Syringe) 40 mg SUBCUT Q24H [facility] Last Admin: 05/06/24 09:21 Dose: 40 mg Documented By: ALISON Nutrition (Parenteral) (Parenteral Nutrition) 2,040 mls @ 85 mls/hr IV .Q24H [facility]; Protocol Stop: 05/06/24 20:59 Last Admin: 05/05/24 22:27 Dose: 85 mls/hr Documented By: ANUSHA Nutrition (Parenteral) (Parenteral Nutrition) 2,040 mls @ 85 mls/hr IV .Q24H [facility]; Protocol Stop: 05/07/24 20:59 Magnesium Hydroxide (Milk Of Magnesia 30 Ml Oral.Susp) 30 ml PO DAILY PRN PRN Reason: Constipation Melatonin (Melatonin 3 Mg Tablet) 6 mg PO BEDTIME PRN PRN Reason: Insomnia Morphine Sulfate (Morphine Sulfate 2 Mg/Ml Cartridge) 2 mg IVPUSH Q6H PRN; Protocol PRN Reason: Pain, Severe (Pain Scale 7-10) Ondansetron HCl (Ondansetron Hcl 4 Mg/2 Ml Vial) 4 mg IVPUSH Q8H PRN PRN Reason: Nausea and Vomiting Pantoprazole Sodium (Pantoprazole Sodium 40 Mg/10 Ml Vial) 40 mg IVPUSH BID@0630,1630 [facility] Last Admin: 05/06/24 06:02 Dose: 40 mg Documented By: ANUSHA Rivaroxaban (Rivaroxaban 20 Mg Tablet) 20 mg PO DAILY@0800 [facility] Last Admin: 05/06/24 09:10 Dose: Not Given Documented By: ALISON Non-Admin Reason: Physician Held Med Sodium Chloride (0.9 % Sodium Chloride Flush 3 Ml Syringe) 3 ml IVFLUSH QSHIFT [facility] Last Admin: 05/06/24 09:20 Dose: 3 ml Documented By: ALISON Sodium Chloride (0.9 % Sodium Chloride Flush 10 Ml Syringe) 5 ml IVFLUSH TID [facility] Last Admin: 05/06/24 09:23 Dose: Not Given Documented By: ALISON Non-Admin Reason: Previously Administered Labs 05/01/24 05:47 05/06/24 05:59 Labs: Laboratory Results - last 24 hr 05/06/24 05:59 Hold Purple Top SEE NOTE Anion Gap 15 Estim Creat Clear Calc 177.6 Estimated GFR > 60 Random Glucose 166 H Calcium 10.1 Phosphorus 3.8 Magnesium 2.3 Total Bilirubin 0.4 AST 45 H ALT 121 H Alkaline Phosphatase 115 Total Protein 8.1 H Albumin 3.7 Assessment and Plan (1) Small bowel obstruction: Status: Acute (2) Acute hypokalemia: Status: Acute Plan d11 for 53yo M with hx long segment SBO s/p resection for ischemic bowel in July 2023, 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 Found to have high-grade SBO. Hypotensive but fluid-responsive. SBO - Gen Surg following, NGT clamped, to return to suction to night - continue IV TPN for now; remains NPO - continue PT hypoK - repleted transaminasemia - chronic; previously HCV negative and HBV immune from prior infection; likely fatty liver disease as noted on prior US hx DVT/PE - resume rivaroxaban when taking POs; for now, will give enoxaparin GBS - next IVIg due 05/08 VTE ppx - rivaroxaban dispo - eventual home with VNA In my clinical judgment, the patient requires continued inpatient hospitalization for the following reasons: SBO, TPN Total time managing care of this patient today: 35 minutes. Quality Stroke Does the patient have a stroke diagnosis?: No VTE Prior VTE?: Yes VTE Risk Level:: Medical - moderate - high VTE Device Contraindication: N/A - Device Ordered VTE Drug Contraindication: Treatment Not Indicated
[2024-05-06 15:23] VITALS: BP 126/65; PULSE 109; RESP 20; TEMP 36.6; O2SAT 98
[2024-05-06] MEDS: 0.9 % Sodium Chloride Flush 10 ML SYRINGE 5 ML IVFLUSH (16:15)
[2024-05-06 19:23] VITALS: BP 110/75; PULSE 97; RESP 20; TEMP 36.6; O2SAT 98
--- NOTE | 2024-05-06 20:00 | PC.NURSE ---
Pt's NGT unclamped at 20:00, with 0 residual. Per MD order to reconnect to suction, low intermittent. Pt's NGT reconnected and will continue to monitor output. TPN running at 85mls/hr, bed in lowest position, and call viveros within reach.
[2024-05-06] MEDS: Parenteral Nutrition 2,040 ML 85 ML IV (22:31)
[2024-05-07 03:57] VITALS: BP 109/62; PULSE 94; RESP 18; TEMP 36.2; O2SAT 96
[2024-05-07] MEDS: Pantoprazole Sodium 40 MG/10 ML VIAL IVPUSH ×2 (06:37→16:55)
[2024-05-07 07:34] LABS: Alanine Aminotransferase 121 U/L (0-40); Albumin Level 3.7 g/dL (3.5-5.0); Alkaline Phosphatase 128 U/L (39-117); Anion Gap 14 (12-20); Aspartate Amino Transferase 49 U/L (5-37); Bilirubin Total 0.5 mg/dL (0.0-1.0); Blood Urea Nitrogen 23 mg/dL (9-16); Calcium 9.7 mg/dL (8.4-10.2); Carbon Dioxide 28 mmol/L (22-29); Chloride 106 mmol/L (96-108); Creatinine Clr Calc Pharmacy 177.6; Estimated Glomerular Filt Rate > 60; Glucose Random 161 mg/dL (60-115); Magnesium 2.3 mg/dL (1.6-2.6); Phosphorus 3.9 mg/dL (2.7-4.5); Potassium 4.3 mmol/L (3.3-5.1); Sodium 144 mmol/L (135-145); Total Protein 8.3 g/dL (6.5-8.0)
[2024-05-07 08:00] VITALS: BP 101/73; PULSE 99; RESP 16; TEMP 36.7; O2SAT 98
[2024-05-07] MEDS: Enoxaparin Sodium 40 MG/0.4 ML SYRINGE SUBCUT (08:47)
[2024-05-07] MEDS: 0.9 % Sodium Chloride Flush 10 ML SYRINGE 5 ML IVFLUSH ×3 (08:49→19:52)
--- NOTE | 2024-05-07 09:57 | PM.PNGS ---
Subjective Subjective Date of Service: 05/07/24 Interval history: Patient reports having a bowel movement yesterday and continues to pass flatus today. Reports his abdominal pain is improved. Tolerated clamping of the NG tube for 12 hours yesterday and will try this again today. Physical Exam Vital Signs: Vital Signs: Last Vital Signs Temp 98.1 F 05/07/24 08:00 Pulse 99 05/07/24 08:00 Resp 16 05/07/24 08:00 BP 101/73 05/07/24 08:00 Pulse Ox 98 05/07/24 08:00 O2 Del Method Room Air 05/07/24 08:00 BMI result Body Mass Index 30.4 Const: General: comfortable and no acute distress Resp: Effort & Inspection: normal respiratory effort Cardio: Rhythm: regular rhythm GI: Palpation (GI): Soft to palpation, not firm, nontender and no guarding Objective Data Active Medications Acetaminophen (Acetaminophen 325 Mg Tablet) 650 mg PO Q6H PRN PRN Reason: Pain, Mild (Pain Scale 1-3), fever or headache Calcium Carbonate (Calcium Carbonate 750 Mg Tab.Chew) 750 mg PO Q4H PRN PRN Reason: Heartburn Enoxaparin Sodium (Enoxaparin Sodium 40 Mg/0.4 Ml Syringe) 40 mg SUBCUT Q24H [facility] Last Admin: 05/07/24 08:47 Dose: 40 mg Documented By: ALISON Nutrition (Parenteral) (Parenteral Nutrition) 2,040 mls @ 85 mls/hr IV .Q24H [facility]; Protocol Stop: 05/07/24 20:59 Last Admin: 05/06/24 22:31 Dose: 85 mls/hr Documented By: ANUSHA Magnesium Hydroxide (Milk Of Magnesia 30 Ml Oral.Susp) 30 ml PO DAILY PRN PRN Reason: Constipation Melatonin (Melatonin 3 Mg Tablet) 6 mg PO BEDTIME PRN PRN Reason: Insomnia Morphine Sulfate (Morphine Sulfate 2 Mg/Ml Cartridge) 2 mg IVPUSH Q6H PRN; Protocol PRN Reason: Pain, Severe (Pain Scale 7-10) Ondansetron HCl (Ondansetron Hcl 4 Mg/2 Ml Vial) 4 mg IVPUSH Q8H PRN PRN Reason: Nausea and Vomiting Pantoprazole Sodium (Pantoprazole Sodium 40 Mg/10 Ml Vial) 40 mg IVPUSH BID@0630,1630 [facility] Last Admin: 05/07/24 06:37 Dose: 40 mg Documented By: ANUSHA Rivaroxaban (Rivaroxaban 20 Mg Tablet) 20 mg PO DAILY@0800 [facility] Last Admin: 05/06/24 09:10 Dose: Not Given Documented By: ALISON Non-Admin Reason: Physician Held Med Sodium Chloride (0.9 % Sodium Chloride Flush 3 Ml Syringe) 3 ml IVFLUSH QSHIFT [facility] Last Admin: 05/07/24 08:50 Dose: Not Given Documented By: ALISON Non-Admin Reason: Previously Administered Sodium Chloride (0.9 % Sodium Chloride Flush 10 Ml Syringe) 5 ml IVFLUSH TID [facility] Last Admin: 05/07/24 08:49 Dose: 5 ml Documented By: ALISON Labs 05/01/24 05:47 05/07/24 05:39 Labs: Laboratory Results - last 24 hr 05/07/24 05:39 Anion Gap 14 Estim Creat Clear Calc 177.6 Estimated GFR > 60 Random Glucose 161 H Calcium 9.7 Phosphorus 3.9 Magnesium 2.3 Total Bilirubin 0.5 AST 49 H ALT 121 H Alkaline Phosphatase 128 H Total Protein 8.3 H Albumin 3.7 Procedures Date of Service Date of Service: 05/07/24 Progress Note: A&P Assessment and plan (1) Small bowel obstruction: Status: Acute Assessment and Plan: Abdomen soft and nondistended, patient passing flatus and BM. Tolerated clamping yesterday. Plan for NG tube clamping for 12 hours, check residuals and returned to suction. Continue TPN. Time Spent With Patient Time: Total time managing care of this patient today ____ minutes. Quality Stroke Does the patient have a stroke diagnosis?: No VTE Prior VTE?: Yes VTE Risk Level:: Medical - moderate - high VTE Device Contraindication: N/A - Device Ordered VTE Drug Contraindication: Treatment Not Indicated
--- NOTE | 2024-05-07 10:11 | HO.PM.IMPN ---
Subjective Subjective Date of Service: 05/07/24 Interval History: about 250 mL of non-bilious gastric fluid suctioned overnight NGT clamped now, no pain passing gas Review of Systems Review of Systems: Yes all other systems are reviewed and are negative Physical Exam Vital Signs: Vital Signs: Last Vital Signs Temp 98.1 F 05/07/24 08:00 Pulse 99 05/07/24 08:00 Resp 16 05/07/24 08:00 BP 101/73 05/07/24 08:00 Pulse Ox 98 05/07/24 08:00 O2 Del Method Room Air 05/07/24 08:00 BMI result Body Mass Index 30.4 Gen: in no acute distress HEENT: sclera anicteric, moist mucus membranes Neck: supple Lungs: clear to auscultation bilaterally Heart: regular rate and rhythm, no murmurs Abd: soft, non-tender, non-distended, normal bowel sounds Ext: no edema, LUE PICC in place Skin: warm/well-perfused Neuro: alert and oriented x3, no focal findings Psych: appropriate affect Objective Data Active Medications Acetaminophen (Acetaminophen 325 Mg Tablet) 650 mg PO Q6H PRN PRN Reason: Pain, Mild (Pain Scale 1-3), fever or headache Calcium Carbonate (Calcium Carbonate 750 Mg Tab.Chew) 750 mg PO Q4H PRN PRN Reason: Heartburn Enoxaparin Sodium (Enoxaparin Sodium 40 Mg/0.4 Ml Syringe) 40 mg SUBCUT Q24H [facility] Last Admin: 05/07/24 08:47 Dose: 40 mg Documented By: ALISON Nutrition (Parenteral) (Parenteral Nutrition) 2,040 mls @ 85 mls/hr IV .Q24H [facility]; Protocol Stop: 05/07/24 20:59 Last Admin: 05/06/24 22:31 Dose: 85 mls/hr Documented By: ANUSHA Magnesium Hydroxide (Milk Of Magnesia 30 Ml Oral.Susp) 30 ml PO DAILY PRN PRN Reason: Constipation Melatonin (Melatonin 3 Mg Tablet) 6 mg PO BEDTIME PRN PRN Reason: Insomnia Morphine Sulfate (Morphine Sulfate 2 Mg/Ml Cartridge) 2 mg IVPUSH Q6H PRN; Protocol PRN Reason: Pain, Severe (Pain Scale 7-10) Ondansetron HCl (Ondansetron Hcl 4 Mg/2 Ml Vial) 4 mg IVPUSH Q8H PRN PRN Reason: Nausea and Vomiting Pantoprazole Sodium (Pantoprazole Sodium 40 Mg/10 Ml Vial) 40 mg IVPUSH BID@0630,1630 [facility] Last Admin: 05/07/24 06:37 Dose: 40 mg Documented By: ANUSHA Rivaroxaban (Rivaroxaban 20 Mg Tablet) 20 mg PO DAILY@0800 [facility] Last Admin: 05/06/24 09:10 Dose: Not Given Documented By: ALISON Non-Admin Reason: Physician Held Med Sodium Chloride (0.9 % Sodium Chloride Flush 3 Ml Syringe) 3 ml IVFLUSH QSHIFT [facility] Last Admin: 05/07/24 08:50 Dose: Not Given Documented By: ALISON Non-Admin Reason: Previously Administered Sodium Chloride (0.9 % Sodium Chloride Flush 10 Ml Syringe) 5 ml IVFLUSH TID [facility] Last Admin: 05/07/24 08:49 Dose: 5 ml Documented By: ALISON Labs 05/01/24 05:47 05/07/24 05:39 Labs: Laboratory Results - last 24 hr 05/07/24 05:39 Anion Gap 14 Estim Creat Clear Calc 177.6 Estimated GFR > 60 Random Glucose 161 H Calcium 9.7 Phosphorus 3.9 Magnesium 2.3 Total Bilirubin 0.5 AST 49 H ALT 121 H Alkaline Phosphatase 128 H Total Protein 8.3 H Albumin 3.7 Assessment and Plan (1) Small bowel obstruction: Status: Acute (2) Acute hypokalemia: Status: Acute Plan d12 for 53yo M with hx long segment SBO s/p resection for ischemic bowel in July 2023, 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 Found to have high-grade SBO. Hypotensive but fluid-responsive. SBO - Gen Surg following, another 12h clamping trial today - continue IV TPN for now; remains NPO - continue PT hypoK - repleted transaminasemia - chronic; previously HCV negative and HBV immune from prior infection; likely fatty liver disease as noted on prior US hx DVT/PE - resume rivaroxaban when taking POs; for now, will give enoxaparin GBS - next IVIg due 05/08 VTE ppx - rivaroxaban dispo - eventual home with VNA In my clinical judgment, the patient requires continued inpatient hospitalization for the following reasons: SBO, TPN Total time managing care of this patient today: 35 minutes. Quality Stroke Does the patient have a stroke diagnosis?: No VTE Prior VTE?: Yes VTE Risk Level:: Medical - moderate - high VTE Device Contraindication: N/A - Device Ordered VTE Drug Contraindication: Treatment Not Indicated
[2024-05-07 15:42] VITALS: BP 114/72; PULSE 114; RESP 20; TEMP 36.9; O2SAT 96
[2024-05-07 19:38] VITALS: BP 116/71; PULSE 138; RESP 18; TEMP 36.7; O2SAT 97
[2024-05-07] MEDS: Parenteral Nutrition 2,040 ML 85 ML IV (19:49)
[2024-05-07] MEDS: ondansetron HCL 4 MG/2 ML VIAL IVPUSH (19:52)
[2024-05-08] MEDS: 0.9 % Sodium Chloride Flush 3 ML SYRINGE IVFLUSH (00:09)
[2024-05-08 03:12] VITALS: BP 101/65; PULSE 125; RESP 18; TEMP 36; O2SAT 97
[2024-05-08] MEDS: Morphine Sulfate 2 MG/ML CARTRIDGE IVPUSH (05:48)
[2024-05-08 05:54] LABS: Alanine Aminotransferase 152 U/L (0-40); Alkaline Phosphatase 165 U/L (39-117); Anion Gap 17 (12-20); Aspartate Amino Transferase 65 U/L (5-37); Bilirubin Total 0.8 mg/dL (0.0-1.0); Blood Urea Nitrogen 40 mg/dL (9-16); Calcium 10.2 mg/dL (8.4-10.2); Carbon Dioxide 24 mmol/L (22-29); Chloride 105 mmol/L (96-108); Creatinine Clr Calc Pharmacy 111.6; Estimated Glomerular Filt Rate > 60; Glucose Random 207 mg/dL (60-115); Magnesium 2.6 mg/dL (1.6-2.6); Phosphorus 4.4 mg/dL (2.7-4.5); Potassium 4.9 mmol/L (3.3-5.1); Sodium 141 mmol/L (135-145); Total Protein 9.1 g/dL (6.5-8.0)
--- NOTE | 2024-05-08 07:46 | PM.PNGS ---
Subjective Subjective Date of Service: 05/09/24 Interval history: Passing flatus Had BMs Complains of some pain today No fever Physical Exam Vital Signs: Vital Signs: Last Vital Signs Temp 96.8 F 05/08/24 03:12 Pulse 125 H 05/08/24 03:12 Resp 18 05/08/24 03:12 BP 101/65 05/08/24 03:12 Pulse Ox 97 05/08/24 03:12 O2 Del Method Room Air 05/08/24 03:12 BMI result Body Mass Index 30.4 Const: Other: Looks well General: comfortable and no acute distress Resp: Effort & Inspection: normal respiratory effort Cardio: Rate: tachycardic GI: Palpation (GI): Soft to palpation, not firm, nontender and no guarding Objective Data Active Medications Acetaminophen (Acetaminophen 325 Mg Tablet) 650 mg PO Q6H PRN PRN Reason: Pain, Mild (Pain Scale 1-3), fever or headache Calcium Carbonate (Calcium Carbonate 750 Mg Tab.Chew) 750 mg PO Q4H PRN PRN Reason: Heartburn Enoxaparin Sodium (Enoxaparin Sodium 40 Mg/0.4 Ml Syringe) 40 mg SUBCUT Q24H [facility] Last Admin: 05/07/24 08:47 Dose: 40 mg Documented By: ALISON Nutrition (Parenteral) (Parenteral Nutrition) 2,040 mls @ 85 mls/hr IV .Q24H [facility]; Protocol Stop: 05/08/24 20:59 Last Admin: 05/07/24 19:49 Dose: 85 mls/hr Documented By: ISAAC Magnesium Hydroxide (Milk Of Magnesia 30 Ml Oral.Susp) 30 ml PO DAILY PRN PRN Reason: Constipation Melatonin (Melatonin 3 Mg Tablet) 6 mg PO BEDTIME PRN PRN Reason: Insomnia Morphine Sulfate (Morphine Sulfate 2 Mg/Ml Cartridge) 2 mg IVPUSH Q6H PRN; Protocol PRN Reason: Pain, Severe (Pain Scale 7-10) Last Admin: 05/08/24 05:48 Dose: 2 mg Documented By: ISAAC Ondansetron HCl (Ondansetron Hcl 4 Mg/2 Ml Vial) 4 mg IVPUSH Q8H PRN PRN Reason: Nausea and Vomiting Last Admin: 05/07/24 19:52 Dose: 4 mg Documented By: ISAAC Pharmacy Consult (Consult Rx Parenteral Nutrition Ordering) 1 each MISCELLANE DAILY PRN PRN Reason: Consult order Rivaroxaban (Rivaroxaban 20 Mg Tablet) 20 mg PO DAILY@0800 [facility] Last Admin: 05/06/24 09:10 Dose: Not Given Documented By: ALISON Non-Admin Reason: Physician Held Med Sodium Chloride (0.9 % Sodium Chloride Flush 3 Ml Syringe) 3 ml IVFLUSH QSHIFT [facility] Last Admin: 05/08/24 00:09 Dose: 3 ml Documented By: ISAAC Sodium Chloride (0.9 % Sodium Chloride Flush 10 Ml Syringe) 5 ml IVFLUSH TID [facility] Last Admin: 05/07/24 19:52 Dose: 5 ml Documented By: ISAAC Labs 05/01/24 05:47 05/08/24 04:46 Labs: Laboratory Results - last 24 hr 05/08/24 04:46 Anion Gap 17 Estim Creat Clear Calc 111.6 Estimated GFR > 60 Random Glucose 207 H Calcium 10.2 Phosphorus 4.4 Magnesium 2.6 Total Bilirubin 0.8 AST 65 H ALT 152 H Alkaline Phosphatase 165 H Total Protein 9.1 H Albumin 4.0 Procedures Date of Service Date of Service: 05/09/24 Progress Note: A&P Assessment and plan (1) Small bowel obstruction: Status: Acute Assessment and Plan: Looks well Complains of pain No significant tenderness Abdominal exam remains benign We will keep on NG tube suction today and will not clamp NG tube Await until more consistent flatus and BMs TPN Time Spent With Patient Time: Total time managing care of this patient today ____ minutes. Quality Stroke Does the patient have a stroke diagnosis?: No VTE Prior VTE?: Yes VTE Risk Level:: Medical - moderate - high VTE Device Contraindication: N/A - Device Ordered VTE Drug Contraindication: Treatment Not Indicated
[2024-05-08 07:48] VITALS: BP 106/63; PULSE 122; RESP 18; TEMP 36.3; O2SAT 95
[2024-05-08] MEDS: 0.9 % Sodium Chloride Flush 10 ML SYRINGE 5 ML IVFLUSH ×3 (08:08→20:35)
[2024-05-08] MEDS: Enoxaparin Sodium 40 MG/0.4 ML SYRINGE SUBCUT (08:09)
[2024-05-08] MEDS: Acetaminophen 1,000 MG/100 ML PIGGYBACK 400 MG IV ×2 (09:30→23:47)
--- NOTE | 2024-05-08 10:34 | MHC.CLN ---
F/U CONTINUES NPO WITH TPN. HAS NGT FOR SUCTION. LABS REVIEWED. COMMUNICATED WITH PHARMACY. CONTINUE TPN AT MAX GOAL RATE OF 85 ML PER HOUR WITH 76 G LIPIDS PROVIDES 2208 TOTAL KCALS (24.8 KCALS/KG IBW), 102 G PROTEIN (1.15 G/KG IBW), 306 G DEXTROSE. REPLETE LYTES NEEDED. FOLLOW FOR DIET ADVANCED AND TPN TOLERANCE.
--- NOTE | 2024-05-08 10:36 | P.PNIM_ITS ---
Subjective Subjective Date of Service: 05/08/24 Interval History: Being followed for small-bowel obstruction. Complaining of abdominal pain, passing flatus had bowel movement this morning, denies fever, no chills NG tube with persistent large drainage. Review of Systems All other symptoms are reviewed and are negative. Physical Exam 2 Vital Signs: Vital Signs: Last Vital Signs Temp 97.3 F 05/08/24 07:48 Pulse 122 H 05/08/24 07:48 Resp 18 05/08/24 07:48 BP 106/63 05/08/24 07:48 Pulse Ox 95 05/08/24 07:48 O2 Del Method Room Air 05/08/24 07:48 BMI result Body Mass Index 30.4 Const: Other: Gen: in no acute distress HEENT: sclera anicteric, moist mucus membranes Neck: supple Lungs: clear to auscultation bilaterally Heart: regular rate and rhythm, no murmurs Abd: soft, non-tender, non-distended, normal bowel sounds Ext: no edema, LUE PICC in place Skin: warm/well-perfused Neuro: alert and oriented x3, no focal findings Psych: appropriate affect Objective Data Active Medications Acetaminophen (Acetaminophen 325 Mg Tablet) 650 mg PO Q6H PRN PRN Reason: Pain, Mild (Pain Scale 1-3), fever or headache Calcium Carbonate (Calcium Carbonate 750 Mg Tab.Chew) 750 mg PO Q4H PRN PRN Reason: Heartburn Enoxaparin Sodium (Enoxaparin Sodium 40 Mg/0.4 Ml Syringe) 40 mg SUBCUT Q24H [facility] Last Admin: 05/08/24 08:09 Dose: 40 mg Documented By: TEJ Nutrition (Parenteral) (Parenteral Nutrition) 2,040 mls @ 85 mls/hr IV .Q24H [facility]; Protocol Stop: 05/08/24 20:59 Last Admin: 05/07/24 19:49 Dose: 85 mls/hr Documented By: ISAAC Nutrition (Parenteral) (Parenteral Nutrition) 2,040 mls @ 85 mls/hr IV .Q24H [facility]; Protocol Stop: 05/09/24 20:59 Acetaminophen (Ofirmev) 1,000 mg in 100 mls @ 400 mls/hr IV Q6H PRN PRN Reason: Pain, Severe (Pain Scale 7-10) Magnesium Hydroxide (Milk Of Magnesia 30 Ml Oral.Susp) 30 ml PO DAILY PRN PRN Reason: Constipation Melatonin (Melatonin 3 Mg Tablet) 6 mg PO BEDTIME PRN PRN Reason: Insomnia Morphine Sulfate (Morphine Sulfate 2 Mg/Ml Cartridge) 2 mg IVPUSH Q6H PRN; Protocol PRN Reason: Pain, Severe (Pain Scale 7-10) Last Admin: 05/08/24 05:48 Dose: 2 mg Documented By: ISAAC Ondansetron HCl (Ondansetron Hcl 4 Mg/2 Ml Vial) 4 mg IVPUSH Q8H PRN PRN Reason: Nausea and Vomiting Last Admin: 05/07/24 19:52 Dose: 4 mg Documented By: ISAAC Pharmacy Consult (Consult Rx Parenteral Nutrition Ordering) 1 each MISCELLANE DAILY PRN PRN Reason: Consult order Rivaroxaban (Rivaroxaban 20 Mg Tablet) 20 mg PO DAILY@0800 [facility] Last Admin: 05/06/24 09:10 Dose: Not Given Documented By: ALISON Non-Admin Reason: Physician Held Med Sodium Chloride (0.9 % Sodium Chloride Flush 3 Ml Syringe) 3 ml IVFLUSH QSHIFT [facility] Last Admin: 05/08/24 08:08 Dose: Not Given Documented By: TEJ Non-Admin Reason: med already given Sodium Chloride (0.9 % Sodium Chloride Flush 10 Ml Syringe) 5 ml IVFLUSH TID [facility] Last Admin: 05/08/24 08:08 Dose: 5 ml Documented By: TEJ Labs 05/01/24 05:47 05/08/24 04:46 Labs: Laboratory Results - last 24 hr 05/08/24 04:46 Anion Gap 17 Estim Creat Clear Calc 111.6 Estimated GFR > 60 Random Glucose 207 H Calcium 10.2 Phosphorus 4.4 Magnesium 2.6 Total Bilirubin 0.8 AST 65 H ALT 152 H Alkaline Phosphatase 165 H Total Protein 9.1 H Albumin 4.0 Assessment and Plan (1) Small bowel obstruction: Status: Acute Plan 53yo M with hx long segment SBO s/p resection for ischemic bowel in July 2023, 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 Found to have high-grade SBO. Hypotensive but fluid-responsive. SBO - abdominal pain, passing flatus and bowel movement, seen by General surgery they recommend not to plan NG today till more consistent bowel movements and flatus. - continue IV TPN for now; remains NPO - continue PT acute hypoK - repleted transaminasemia - chronic; previously HCV negative and HBV immune from prior infection; likely fatty liver disease as noted on prior US hx DVT/PE - resume rivaroxaban when taking POs; for now, continue enoxaparin GBS - next IVIg due 05/08, since hospitalized will resume once clinically improved VTE ppx - Lovenox dispo - eventual home with VNA In my clinical judgment, the patient requires continued inpatient hospitalization for the following reasons: SBO, npo, TPN Quality Stroke Does the patient have a stroke diagnosis?: No VTE Prior VTE?: Yes VTE Risk Level:: Medical - moderate - high VTE Device Contraindication: N/A - Device Ordered VTE Drug Contraindication: Treatment Not Indicated
--- NOTE | 2024-05-08 15:20 | PM.EVENT ---
Event Note Date of Service: 05/09/24 Event Note: Seen on afternoon rounds Says he is comfortable Abdominal pain had improved significantly He looks well Abdomen is soft and very benign NG tube scanty output Continue NG tube to low wall suction Plan to clamp and then clamped the NG tube again tomorrow Time Spent With Patient Time: Total time managing care of this patient today ____ minutes.
[2024-05-08 15:28] VITALS: BP 98/63; PULSE 122; RESP 18; TEMP 36.4; O2SAT 97
[2024-05-08 19:55] VITALS: BP 92/61; PULSE 126; RESP 18; TEMP 36.6; O2SAT 96
[2024-05-08] MEDS: Parenteral Nutrition 2,040 ML 85 ML IV (20:34)
[2024-05-09 04:18] VITALS: BP 112/69; PULSE 114; RESP 16; TEMP 36.4; O2SAT 97
[2024-05-09] MEDS: 0.9 % Sodium Chloride Flush 10 ML SYRINGE 5 ML IVFLUSH (07:29)
[2024-05-09] MEDS: Enoxaparin Sodium 40 MG/0.4 ML SYRINGE SUBCUT (07:30)
[2024-05-09 07:50] VITALS: BP 98/54; PULSE 115; RESP 12; TEMP 36.3; O2SAT 96
--- NOTE | 2024-05-09 08:12 | P.PNGS_ITS ---
Subjective Subjective Date of Service: 05/10/24 Interval history: Denies pain Denies nausea or vomiting Passing flatus Physical Exam 2 Vital Signs: Vital Signs: Last Vital Signs Temp 97.4 F 05/09/24 07:50 Pulse 115 H 05/09/24 07:50 Resp 12 05/09/24 07:50 BP 98/54 L 05/09/24 07:50 Pulse Ox 96 05/09/24 07:50 O2 Del Method Room Air 05/09/24 07:50 BMI result Body Mass Index 30.4 Const: Other: Looks well General: comfortable and no acute distress Resp: Effort & Inspection: normal respiratory effort Cardio: Rate: tachycardic GI: Palpation (GI): Soft to palpation, not firm, nontender and no guarding Objective Data Active Medications Acetaminophen (Acetaminophen 325 Mg Tablet) 650 mg PO Q6H PRN PRN Reason: Pain, Mild (Pain Scale 1-3), fever or headache Calcium Carbonate (Calcium Carbonate 750 Mg Tab.Chew) 750 mg PO Q4H PRN PRN Reason: Heartburn Enoxaparin Sodium (Enoxaparin Sodium 40 Mg/0.4 Ml Syringe) 40 mg SUBCUT Q24H [facility] Last Admin: 05/09/24 07:30 Dose: 40 mg Documented By: KATI Nutrition (Parenteral) (Parenteral Nutrition) 2,040 mls @ 85 mls/hr IV .Q24H [facility]; Protocol Stop: 05/09/24 20:59 Last Admin: 05/08/24 20:34 Dose: 85 mls/hr Documented By: ISAAC Acetaminophen (Ofirmev) 1,000 mg in 100 mls @ 400 mls/hr IV Q6H PRN PRN Reason: Pain, Severe (Pain Scale 7-10) Last Infusion: 05/09/24 00:09 Dose: Infused Documented By: ISAAC Magnesium Hydroxide (Milk Of Magnesia 30 Ml Oral.Susp) 30 ml PO DAILY PRN PRN Reason: Constipation Melatonin (Melatonin 3 Mg Tablet) 6 mg PO BEDTIME PRN PRN Reason: Insomnia Morphine Sulfate (Morphine Sulfate 2 Mg/Ml Cartridge) 2 mg IVPUSH Q6H PRN; Protocol PRN Reason: Pain, Severe (Pain Scale 7-10) Last Admin: 05/08/24 05:48 Dose: 2 mg Documented By: ISAAC Ondansetron HCl (Ondansetron Hcl 4 Mg/2 Ml Vial) 4 mg IVPUSH Q8H PRN PRN Reason: Nausea and Vomiting Last Admin: 05/07/24 19:52 Dose: 4 mg Documented By: ISAAC Pharmacy Consult (Consult Rx Parenteral Nutrition Ordering) 1 each MISCELLANE DAILY PRN PRN Reason: Consult order Rivaroxaban (Rivaroxaban 20 Mg Tablet) 20 mg PO DAILY@0800 [facility] Last Admin: 05/06/24 09:10 Dose: Not Given Documented By: ALISON Non-Admin Reason: Physician Held Med Sodium Chloride (0.9 % Sodium Chloride Flush 3 Ml Syringe) 3 ml IVFLUSH QSHIFT [facility] [place] Last Admin: 05/09/24 07:30 Dose: Not Given Documented By: KATI Non-Admin Reason: PT HAS A picc LINE Sodium Chloride (0.9 % Sodium Chloride Flush 10 Ml Syringe) 5 ml IVFLUSH TID [facility] [place] Last Admin: 05/09/24 07:29 Dose: 5 ml Documented By: KATI Labs 05/01/24 05:47 05/10/24 06:03 Labs: Laboratory Results - last 24 hr 05/09/24 06:14 Hold Purple Top SEE NOTE Procedures Date of Service Date of Service: 05/10/24 Progress Note: A&P Assessment and plan (1) Small bowel obstruction: Status: Acute Assessment and Plan: Clinically looks well Plan on clamping NG tube 8 hours today and check output Return to suction after 8 hours Abdominal exam benign He says he is passing flatus Time Spent With Patient Time: Total time managing care of this patient today ____ minutes. Quality Stroke Does the patient have a stroke diagnosis?: No VTE Prior VTE?: Yes VTE Risk Level:: Medical - moderate - high VTE Device Contraindication: N/A - Device Ordered VTE Drug Contraindication: Treatment Not Indicated
--- NOTE | 2024-05-09 08:22 | PC.NURSE ---
BP 98/64 pulse 115 ,Dr. Tai made aware
[2024-05-09 08:44] LABS: Alanine Aminotransferase 116 U/L (0-40); Alkaline Phosphatase 150 U/L (39-117); Anion Gap 18 (12-20); Aspartate Amino Transferase 38 U/L (5-37); Bilirubin Total 0.8 mg/dL (0.0-1.0); Blood Urea Nitrogen 72 mg/dL (9-16); Carbon Dioxide 27 mmol/L (22-29); Chloride 101 mmol/L (96-108); Creatinine Clr Calc Pharmacy 83.1; Estimated Glomerular Filt Rate 53; Glucose Random 216 mg/dL (60-115); Magnesium 3.4 mg/dL (1.6-2.6); Phosphorus 4.5 mg/dL (2.7-4.5); Sodium 141 mmol/L (135-145); Total Protein 9.2 g/dL (6.5-8.0)
--- NOTE | 2024-05-09 10:07 | PC.NURSE ---
Mg 3.4 ,BUN 72, Cr 1.41 Dr. Tai made aware
[2024-05-09] MEDS: 0.9 % Sodium Chloride 1,000 ML 100 ML IVCONT ×2 (10:41→20:46)
[2024-05-09] MEDS: Acetaminophen 1,000 MG/100 ML PIGGYBACK 400 MG IV ×3 (10:47→23:21)
--- NOTE | 2024-05-09 11:05 | HO.PM.IMPN ---
Subjective Subjective Date of Service: 05/09/24 Interval History: Being followed for small-bowel obstruction, denies abdominal pain, no nausea no vomiting decrease output from NG tube. Review of Systems All other system reviewed and are negative Physical Exam Vital Signs: Vital Signs: Last Vital Signs Temp 97.4 F 05/09/24 07:50 Pulse 115 H 05/09/24 07:50 Resp 12 05/09/24 07:50 BP 98/54 L 05/09/24 07:50 Pulse Ox 96 05/09/24 07:50 O2 Del Method Room Air 05/09/24 07:50 BMI result Body Mass Index 30.4 Const: Other: Gen: in no acute distress HEENT: sclera anicteric, moist mucus membranes Neck: supple Lungs: clear to auscultation bilaterally Heart: regular rate and rhythm, no murmurs Abd: soft, non-tender, non-distended, normal bowel sounds Ext: no edema, double-lumen LUE PICC in place Skin: warm/well-perfused Neuro: alert and oriented x3, no focal findings Psych: appropriate affect Objective Data Active Medications Acetaminophen (Acetaminophen 325 Mg Tablet) 650 mg PO Q6H PRN PRN Reason: Pain, Mild (Pain Scale 1-3), fever or headache Calcium Carbonate (Calcium Carbonate 750 Mg Tab.Chew) 750 mg PO Q4H PRN PRN Reason: Heartburn Enoxaparin Sodium (Enoxaparin Sodium 40 Mg/0.4 Ml Syringe) 40 mg SUBCUT Q24H [facility] Last Admin: 05/09/24 07:30 Dose: 40 mg Documented By: KATI Nutrition (Parenteral) (Parenteral Nutrition) 2,040 mls @ 85 mls/hr IV .Q24H [facility]; Protocol Stop: 05/09/24 20:59 Last Admin: 05/08/24 20:34 Dose: 85 mls/hr Documented By: ISAAC Acetaminophen (Ofirmev) 1,000 mg in 100 mls @ 400 mls/hr IV Q6H PRN PRN Reason: Pain, Severe (Pain Scale 7-10) Last Admin: 05/09/24 10:47 Dose: 400 mls/hr Documented By: KATI Sodium Chloride (Ns) 1,000 mls @ 100 mls/hr IVCONT .Q10H [facility] Last Admin: 05/09/24 10:41 Dose: 100 mls/hr Documented By: KATI Magnesium Hydroxide (Milk Of Magnesia 30 Ml Oral.Susp) 30 ml PO DAILY PRN PRN Reason: Constipation Melatonin (Melatonin 3 Mg Tablet) 6 mg PO BEDTIME PRN PRN Reason: Insomnia Morphine Sulfate (Morphine Sulfate 2 Mg/Ml Cartridge) 2 mg IVPUSH Q6H PRN; Protocol PRN Reason: Pain, Severe (Pain Scale 7-10) Last Admin: 05/08/24 05:48 Dose: 2 mg Documented By: ISAAC Ondansetron HCl (Ondansetron Hcl 4 Mg/2 Ml Vial) 4 mg IVPUSH Q8H PRN PRN Reason: Nausea and Vomiting Last Admin: 05/07/24 19:52 Dose: 4 mg Documented By: ISAAC Pharmacy Consult (Consult Rx Parenteral Nutrition Ordering) 1 each MISCELLANE DAILY PRN PRN Reason: Consult order Rivaroxaban (Rivaroxaban 20 Mg Tablet) 20 mg PO DAILY@0800 [facility] Last Admin: 05/06/24 09:10 Dose: Not Given Documented By: ALISON Non-Admin Reason: Physician Held Med Sodium Chloride (0.9 % Sodium Chloride Flush 3 Ml Syringe) 3 ml IVFLUSH QSHIFT [facility] Last Admin: 05/09/24 07:30 Dose: Not Given Documented By: KATI Non-Admin Reason: PT HAS A picc LINE Sodium Chloride (0.9 % Sodium Chloride Flush 10 Ml Syringe) 5 ml IVFLUSH TID [facility] Last Admin: 05/09/24 07:29 Dose: 5 ml Documented By: KATI Labs 05/01/24 05:47 05/09/24 06:14 Labs: Laboratory Results - last 24 hr 05/09/24 06:14 Hold Purple Top SEE NOTE Anion Gap 18 Estim Creat Clear Calc 83.1 Estimated GFR 53 Random Glucose 216 H Calcium 10.0 Phosphorus 4.5 Magnesium 3.4 H Total Bilirubin 0.8 AST 38 H ALT 116 H Alkaline Phosphatase 150 H Total Protein 9.2 H Albumin 4.0 Assessment and Plan (1) Small bowel obstruction: Status: Acute Plan 53yo M with hx long segment SBO s/p resection for ischemic bowel in July 2023, 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 Found to have high-grade SBO. Hypotensive but fluid-responsive. SBO - abdominal pain, passing flatus and bowel movement, seen by General surgery they recommend not to plan NG today till more consistent bowel movements and flatus. - continue IV TPN for now; remains NPO - continue PT ANA creatinine bumped from 1.05-1.41 likely prerenal due to high NG output in last 2 days ,will treat with IV fluids avoid nephrotoxins and hypotension. Acute hypo magnesemia likely due to ANA will follow labs acute hypoK - repleted transaminasemia - chronic; previously HCV negative and HBV immune from prior infection; likely fatty liver disease as noted on prior US hx DVT/PE - resume rivaroxaban when taking POs; for now, continue enoxaparin GBS - next IVIg was due 05/08, since hospitalized will resume once clinically improved VTE ppx - Lovenox dispo - eventual home with VNA In my clinical judgment, the patient requires continued inpatient hospitalization for the following reasons: SBO, npo, TPN Quality Stroke Does the patient have a stroke diagnosis?: No VTE Prior VTE?: Yes VTE Risk Level:: Medical - moderate - high VTE Device Contraindication: N/A - Device Ordered VTE Drug Contraindication: Treatment Not Indicated
--- NOTE | 2024-05-09 11:30 | MHC.CLN ---
F/U CONTINUES NPO WITH TPN LABS REVIEWED DISCUSSED WITH PHARMACY CONTINUE TPN AT MAX GOAL RATE OF 85 ML PER HOUR WITH 76 G LIPIDS PROVIDES 2208 TOTAL KCALS (24.8 KCALS/KG IBW), 102 G PROTEIN (1.15 G/KG IBW), 306 G DEXTROSE REPLETE LYTES NEEDED
[2024-05-09 16:14] VITALS: BP 94/65; PULSE 113; RESP 18; TEMP 36.7; O2SAT 97
[2024-05-09 19:57] VITALS: BP 94/70; PULSE 108; RESP 16; TEMP 36.4; O2SAT 96
[2024-05-09] MEDS: Parenteral Nutrition 2,040 ML 85 ML IV (20:46)
[2024-05-09] MEDS: 0.9 % Sodium Chloride Flush 3 ML SYRINGE IVFLUSH (20:47)
[2024-05-10 03:27] VITALS: BP 105/71; PULSE 106; RESP 16; TEMP 36.3; O2SAT 97
[2024-05-10] MEDS: Morphine Sulfate 2 MG/ML CARTRIDGE IVPUSH (03:41)
[2024-05-10] MEDS: Acetaminophen 1,000 MG/100 ML PIGGYBACK 400 MG IV ×2 (06:08→19:37)
[2024-05-10 07:12] LABS: Alanine Aminotransferase 109 U/L (0-40); Albumin Level 3.8 g/dL (3.5-5.0); Alkaline Phosphatase 156 U/L (39-117); Anion Gap 17 (12-20); Aspartate Amino Transferase 42 U/L (5-37); Bilirubin Total 0.8 mg/dL (0.0-1.0); Blood Urea Nitrogen 74 mg/dL (9-16); Calcium 10.1 mg/dL (8.4-10.2); Carbon Dioxide 28 mmol/L (22-29); Chloride 103 mmol/L (96-108); Creatinine Clr Calc Pharmacy 118.4; Estimated Glomerular Filt Rate > 60; Glucose Random 227 mg/dL (60-115); Magnesium 3.3 mg/dL (1.6-2.6); Phosphorus 3.9 mg/dL (2.7-4.5); Potassium 4.6 mmol/L (3.3-5.1); Sodium 143 mmol/L (135-145); Total Protein 8.9 g/dL (6.5-8.0)
[2024-05-10] MEDS: 0.9 % Sodium Chloride 1,000 ML 100 ML IVCONT (07:21)
[2024-05-10 07:47] VITALS: BP 97/71; PULSE 105; RESP 18; TEMP 36.1; O2SAT 97
[2024-05-10] MEDS: Enoxaparin Sodium 40 MG/0.4 ML SYRINGE SUBCUT (08:20)
[2024-05-10] MEDS: 0.9 % Sodium Chloride Flush 10 ML SYRINGE 5 ML IVFLUSH ×3 (08:22→20:46)
--- NOTE | 2024-05-10 08:27 | PM.PNGS ---
Subjective Subjective Date of Service: 05/10/24 Interval history: Denies any abdominal pain Passing flatus He did not have problems with NG tube clamping yesterday Physical Exam Vital Signs: Vital Signs: Last Vital Signs Temp 96.9 F 05/10/24 07:47 Pulse 105 H 05/10/24 07:47 Resp 18 05/10/24 07:47 BP 97/71 05/10/24 07:47 Pulse Ox 97 05/10/24 07:47 O2 Del Method Room Air 05/10/24 07:47 BMI result Body Mass Index 30.4 Const: General: comfortable and no acute distress Resp: Effort & Inspection: normal respiratory effort Cardio: Rhythm: regular rhythm GI: Palpation (GI): Soft to palpation, not firm and nontender Objective Data Active Medications Acetaminophen (Acetaminophen 325 Mg Tablet) 650 mg PO Q6H PRN PRN Reason: Pain, Mild (Pain Scale 1-3), fever or headache Calcium Carbonate (Calcium Carbonate 750 Mg Tab.Chew) 750 mg PO Q4H PRN PRN Reason: Heartburn Enoxaparin Sodium (Enoxaparin Sodium 40 Mg/0.4 Ml Syringe) 40 mg SUBCUT Q24H [facility] Last Admin: 05/10/24 08:20 Dose: 40 mg Documented By: CHRISTINA Acetaminophen (Ofirmev) 1,000 mg in 100 mls @ 400 mls/hr IV Q6H PRN PRN Reason: Pain, Severe (Pain Scale 7-10) Last Infusion: 05/10/24 06:27 Dose: Infused Documented By: SOLIS Nutrition (Parenteral) (Parenteral Nutrition) 2,040 mls @ 85 mls/hr IV .Q24H [facility]; Protocol Stop: 05/10/24 20:59 Last Admin: 05/09/24 20:46 Dose: 85 mls/hr Documented By: SOLIS Magnesium Hydroxide (Milk Of Magnesia 30 Ml Oral.Susp) 30 ml PO DAILY PRN PRN Reason: Constipation Melatonin (Melatonin 3 Mg Tablet) 6 mg PO BEDTIME PRN PRN Reason: Insomnia Morphine Sulfate (Morphine Sulfate 2 Mg/Ml Cartridge) 2 mg IVPUSH Q6H PRN; Protocol PRN Reason: Pain, Severe (Pain Scale 7-10) Last Admin: 05/10/24 03:41 Dose: 2 mg Documented By: HO.CARTYA Ondansetron HCl (Ondansetron Hcl 4 Mg/2 Ml Vial) 4 mg IVPUSH Q8H PRN PRN Reason: Nausea and Vomiting Last Admin: 05/07/24 19:52 Dose: 4 mg Documented By: ISAAC Pharmacy Consult (Consult Rx Parenteral Nutrition Ordering) 1 each MISCELLANE DAILY PRN PRN Reason: Consult order Sodium Chloride (0.9 % Sodium Chloride Flush 3 Ml Syringe) 3 ml IVFLUSH QSHIFT [facility] Last Admin: 05/10/24 08:16 Dose: Not Given Documented By: CHRISTINA Non-Admin Reason: IV Running Sodium Chloride (0.9 % Sodium Chloride Flush 10 Ml Syringe) 5 ml IVFLUSH TID [facility] Last Admin: 05/10/24 08:22 Dose: 5 ml Documented By: CHRISTINA Labs 05/01/24 05:47 05/10/24 06:03 Labs: Laboratory Results - last 24 hr 05/09/24 05/10/24 06:14 06:03 Hold Purple Top SEE NOTE Anion Gap 18 17 Estim Creat Clear Calc 83.1 118.4 Estimated GFR 53 > 60 Random Glucose 216 H 227 H Calcium 10.0 10.1 Phosphorus 4.5 3.9 Magnesium 3.4 H 3.3 H Total Bilirubin 0.8 0.8 AST 38 H 42 H ALT 116 H 109 H Alkaline Phosphatase 150 H 156 H Total Protein 9.2 H 8.9 H Albumin 4.0 3.8 Procedures Date of Service Date of Service: 05/10/24 Progress Note: A&P Assessment and plan (1) Small bowel obstruction: Status: Acute Assessment and Plan: Looks well Passing flatus We will clamp NG tube again for 12 hours today un clamp if he has discomfort TPN Time Spent With Patient Time: Total time managing care of this patient today ____ minutes. Quality Stroke Does the patient have a stroke diagnosis?: No VTE Prior VTE?: Yes VTE Risk Level:: Medical - moderate - high VTE Device Contraindication: N/A - Device Ordered VTE Drug Contraindication: Treatment Not Indicated
--- NOTE | 2024-05-10 09:42 | MHC.CLN ---
F/U CONTINUES NPO WITH TPN. LABS REVIEWED. MD AWARE OF ELEVATED BUN AND Mg. COMMUNICATED WITH PHARMACY. CONTINUE TPN AT MAX GOAL RATE OF 85 ML PER HOUR WITH 76 G LIPIDS PROVIDES 2208 TOTAL KCALS (24.8 KCALS/KG IBW), 102 G PROTEIN (1.15 G/KG IBW), 306 G DEXTROSE REPLETE LYTES NEEDED. FOLLOW FOR TPN TOLERANCE AND DIET ADVANCEMENT.
--- NOTE | 2024-05-10 13:05 | P.PNIM_ITS ---
Subjective Subjective Date of Service: 05/10/24 Interval History: Being followed for small-bowel obstruction. Passing flatus/bowel movement complaining of abdominal pain decreased NG output /NG clamped Review of Systems All other system reviewed and are negative. Physical Exam 2 Vital Signs: Vital Signs: Last Vital Signs Temp 96.9 F 05/10/24 07:47 Pulse 105 H 05/10/24 07:47 Resp 18 05/10/24 07:47 BP 97/71 05/10/24 07:47 Pulse Ox 97 05/10/24 07:47 O2 Del Method Room Air 05/10/24 07:47 BMI result Body Mass Index 30.4 Const: Other: Gen: in no acute distress HEENT: sclera anicteric, moist mucus membranes Neck: supple Lungs: clear to auscultation bilaterally Heart: regular rate and rhythm, no murmurs Abd: soft, non-distended, normal bowel sounds Ext: no edema, double-lumen LUE PICC in place Skin: warm/well-perfused Neuro: alert and oriented x3, no focal findings Psych: appropriate affect Objective Data Active Medications Acetaminophen (Acetaminophen 325 Mg Tablet) 650 mg PO Q6H PRN PRN Reason: Pain, Mild (Pain Scale 1-3), fever or headache Calcium Carbonate (Calcium Carbonate 750 Mg Tab.Chew) 750 mg PO Q4H PRN PRN Reason: Heartburn Enoxaparin Sodium (Enoxaparin Sodium 40 Mg/0.4 Ml Syringe) 40 mg SUBCUT Q24H [facility] Last Admin: 05/10/24 08:20 Dose: 40 mg Documented By: CHRISTINA Acetaminophen ([facility]) 1,000 mg in 100 mls @ 400 mls/hr IV Q6H PRN PRN Reason: Pain, Severe (Pain Scale 7-10) Last Infusion: 05/10/24 06:27 Dose: Infused Documented By: SOLIS Nutrition (Parenteral) (Parenteral Nutrition) 2,040 mls @ 85 mls/hr IV .Q24H [facility]; Protocol Stop: 05/10/24 20:59 Last Admin: 05/09/24 20:46 Dose: 85 mls/hr Documented By: SOLIS Nutrition (Parenteral) (Parenteral Nutrition) 2,040 mls @ 85 mls/hr IV .Q24H [facility]; Protocol Stop: 05/11/24 20:59 Magnesium Hydroxide (Milk Of Magnesia 30 Ml Oral.Susp) 30 ml PO DAILY PRN PRN Reason: Constipation Melatonin (Melatonin 3 Mg Tablet) 6 mg PO BEDTIME PRN PRN Reason: Insomnia Morphine Sulfate (Morphine Sulfate 2 Mg/Ml Cartridge) 2 mg IVPUSH Q6H PRN; Protocol PRN Reason: Pain, Severe (Pain Scale 7-10) Last Admin: 05/10/24 03:41 Dose: 2 mg Documented By: SOLIS Ondansetron HCl (Ondansetron Hcl 4 Mg/2 Ml Vial) 4 mg IVPUSH Q8H PRN PRN Reason: Nausea and Vomiting Last Admin: 05/07/24 19:52 Dose: 4 mg Documented By: ISAAC Pharmacy Consult (Consult Rx Parenteral Nutrition Ordering) 1 each MISCELLANE DAILY PRN PRN Reason: Consult order Sodium Chloride (0.9 % Sodium Chloride Flush 3 Ml Syringe) 3 ml IVFLUSH QSHIFT [facility] Last Admin: 05/10/24 08:16 Dose: Not Given Documented By: CHRISTINA Non-Admin Reason: IV Running Sodium Chloride (0.9 % Sodium Chloride Flush 10 Ml Syringe) 5 ml IVFLUSH TID [facility] Last Admin: 05/10/24 08:22 Dose: 5 ml Documented By: CHRISTINA Labs 05/01/24 05:47 05/10/24 06:03 Labs: Laboratory Results - last 24 hr 05/10/24 06:03 Hold Purple Top SEE NOTE Anion Gap 17 Estim Creat Clear Calc 118.4 Estimated GFR > 60 Random Glucose 227 H Calcium 10.1 Phosphorus 3.9 Magnesium 3.3 H Total Bilirubin 0.8 AST 42 H ALT 109 H Alkaline Phosphatase 156 H Total Protein 8.9 H Albumin 3.8 Assessment and Plan (1) Morbid obesity: Status: Chronic (2) Acute hypokalemia: Status: Acute (3) Small bowel obstruction: Status: Acute Plan 53yo M with hx long segment SBO s/p resection for ischemic bowel in July 2023, 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 Found to have high-grade SBO. Hypotensive but fluid-responsive. SBO - abdominal pain, passing flatus and bowel movement, seen by General surgery they recommend to clamp NG times 12 hours. - continue IV TPN / NPO - continue PT ANA likely prerenal resolved with IV fluids, will resume IV fluids since patient remains NPO Acute hyper magnesemia likely due to ANA follow labs acute hypoK - repleted transaminasemia - chronic; previously HCV negative and HBV immune from prior infection; likely fatty liver disease as noted on prior US hx DVT/PE - resume rivaroxaban when taking POs; for now, continue enoxaparin GBS - next IVIg was due 05/08, since hospitalized will resume once clinically improved VTE ppx - Lovenox dispo - eventual home with VNA In my clinical judgment, the patient requires continued inpatient hospitalization for the following reasons: SBO, npo, TPN Quality Stroke Does the patient have a stroke diagnosis?: No VTE Prior VTE?: Yes VTE Risk Level:: Medical - moderate - high VTE Device Contraindication: N/A - Device Ordered VTE Drug Contraindication: Treatment Not Indicated
[2024-05-10 13:06] VITALS: BP 97/71; PULSE 105; O2SAT 97
[2024-05-10] MEDS: 0.9 % Sodium Chloride 1,000 ML 80 ML IVCONT (15:01)
[2024-05-10 15:45] VITALS: BP 101/66; PULSE 119; RESP 18; TEMP 36.6; O2SAT 94
--- NOTE | 2024-05-10 16:05 | MHC.CM.PN ---
PER ROUNDS PT NOT MEDICALLY READY FOR DC PLAN REMAINS HOME WITH NS
[2024-05-10 19:29] VITALS: BP 97/75; PULSE 123; RESP 18; TEMP 37.3; O2SAT 94
[2024-05-10] MEDS: Parenteral Nutrition 2,040 ML 85 ML IV (20:46)
[2024-05-10 20:59] VITALS: PULSE 113
[2024-05-11] MEDS: 0.9 % Sodium Chloride 1,000 ML 80 ML IVCONT ×2 (01:53→15:44)
[2024-05-11] MEDS: Acetaminophen 1,000 MG/100 ML PIGGYBACK 400 MG IV ×2 (02:31→15:44)
[2024-05-11 03:26] VITALS: BP 117/60; PULSE 106; RESP 18; TEMP 36.3; O2SAT 97
--- NOTE | 2024-05-11 06:25 | PC.NURSE ---
NGT unclamped and connected to low wall intermittent suction at 2030 yesterday 05/10. Patient was not complaining of nausea or vomiting. Output from 8:30 PM yesterday to now was 150 ml. Patient was medicated with Tylenol IV x 2 throughout the night for abdominal/back pain with good effect.
[2024-05-11 06:29] LABS: Alanine Aminotransferase 110 U/L (0-40); Albumin Level 3.6 g/dL (3.5-5.0); Alkaline Phosphatase 161 U/L (39-117); Anion Gap 18 (12-20); Aspartate Amino Transferase 54 U/L (5-37); Bilirubin Total 0.9 mg/dL (0.0-1.0); Blood Urea Nitrogen 70 mg/dL (9-16); Carbon Dioxide 28 mmol/L (22-29); Chloride 102 mmol/L (96-108); Creatinine Clr Calc Pharmacy 124.7; Estimated Glomerular Filt Rate > 60; Glucose Random 252 mg/dL (60-115); Magnesium 2.6 mg/dL (1.6-2.6); Phosphorus 3.5 mg/dL (2.7-4.5); Potassium 4.5 mmol/L (3.3-5.1); Sodium 143 mmol/L (135-145); Total Protein 8.4 g/dL (6.5-8.0)
[2024-05-11 07:23] VITALS: BP 101/73; PULSE 108; RESP 18; TEMP 36.5; O2SAT 96
[2024-05-11] MEDS: 0.9 % Sodium Chloride Flush 10 ML SYRINGE 5 ML IVFLUSH ×2 (08:50→21:28)
[2024-05-11] MEDS: Enoxaparin Sodium 40 MG/0.4 ML SYRINGE SUBCUT (08:51)
[2024-05-11] MEDS: Pantoprazole Sodium 40 MG/10 ML VIAL IVPUSH ×2 (08:51→16:31)
[2024-05-11] MEDS: 0.9 % Sodium Chloride Flush 3 ML SYRINGE IVFLUSH (08:51)
--- NOTE | 2024-05-11 14:18 | HO.PM.IMPN ---
Subjective Subjective Date of Service: 05/11/24 Interval History: Denies abdominal pain had bowel movement, passing flatus NG output between 100-200. Review of Systems All other symptoms reviewed and are negative Physical Exam Vital Signs: Vital Signs: Last Vital Signs Temp 97.7 F 05/11/24 07:23 Pulse 108 H 05/11/24 07:23 Resp 18 05/11/24 07:23 BP 101/73 05/11/24 07:23 Pulse Ox 96 05/11/24 07:23 O2 Del Method Room Air 05/11/24 07:23 BMI result Body Mass Index 30.4 Const: Other: Gen: in no acute distress HEENT: sclera anicteric, moist mucus membranes Neck: supple Lungs: clear to auscultation bilaterally Heart: regular rate and rhythm, no murmurs Abd: soft, non-distended, normal bowel sounds Ext: no edema, left arm double-lumen PICC in place Skin: warm/well-perfused Neuro: alert and oriented x3, no focal findings Psych: appropriate affect Objective Data Active Medications Acetaminophen (Acetaminophen 325 Mg Tablet) 650 mg PO Q6H PRN PRN Reason: Pain, Mild (Pain Scale 1-3), fever or headache Calcium Carbonate (Calcium Carbonate 750 Mg Tab.Chew) 750 mg PO Q4H PRN PRN Reason: Heartburn Enoxaparin Sodium (Enoxaparin Sodium 40 Mg/0.4 Ml Syringe) 40 mg SUBCUT Q24H [facility] Last Admin: 05/11/24 08:51 Dose: 40 mg Documented By: TEJ Acetaminophen (Ofirmev) 1,000 mg in 100 mls @ 400 mls/hr IV Q6H PRN PRN Reason: Pain, Severe (Pain Scale 7-10) Last Infusion: 05/11/24 02:51 Dose: Infused Documented By: ИВАН Nutrition (Parenteral) (Parenteral Nutrition) 2,040 mls @ 85 mls/hr IV .Q24H [facility]; Protocol Stop: 05/11/24 20:59 Last Admin: 05/10/24 20:46 Dose: 85 mls/hr Documented By: ИВАН Sodium Chloride (Ns) 1,000 mls @ 80 mls/hr IVCONT .[id number] [facility] Last Admin: 05/11/24 01:53 Dose: 80 mls/hr Documented By: ИВАН Nutrition (Parenteral) (Parenteral Nutrition) 2,040 mls @ 85 mls/hr IV .Q24H [facility]; Protocol Stop: 05/12/24 20:59 Magnesium Hydroxide (Milk Of Magnesia 30 Ml Oral.Susp) 30 ml PO DAILY PRN PRN Reason: Constipation Melatonin (Melatonin 3 Mg Tablet) 6 mg PO BEDTIME PRN PRN Reason: Insomnia Morphine Sulfate (Morphine Sulfate 2 Mg/Ml Cartridge) 2 mg IVPUSH Q6H PRN; Protocol PRN Reason: Pain, Severe (Pain Scale 7-10) Last Admin: 05/10/24 03:41 Dose: 2 mg Documented By: SOLIS Ondansetron HCl (Ondansetron Hcl 4 Mg/2 Ml Vial) 4 mg IVPUSH Q8H PRN PRN Reason: Nausea and Vomiting Last Admin: 05/07/24 19:52 Dose: 4 mg Documented By: ISAAC Pantoprazole Sodium (Pantoprazole Sodium 40 Mg/10 Ml Vial) 40 mg IVPUSH BID@0630,1630 [facility] Last Admin: 05/11/24 08:51 Dose: 40 mg Documented By: TEJ Pharmacy Consult (Consult Rx Parenteral Nutrition Ordering) 1 each MISCELLANE DAILY PRN PRN Reason: Consult order Sodium Chloride (0.9 % Sodium Chloride Flush 3 Ml Syringe) 3 ml IVFLUSH QSHIFT [facility] Last Admin: 05/11/24 08:51 Dose: 3 ml Documented By: TEJ Sodium Chloride (0.9 % Sodium Chloride Flush 10 Ml Syringe) 5 ml IVFLUSH TID [facility] Last Admin: 05/11/24 08:50 Dose: 5 ml Documented By: ETJ Labs 05/01/24 05:47 05/11/24 05:36 Labs: Laboratory Results - last 24 hr 05/11/24 05:36 Hold Purple Top SEE NOTE Anion Gap 18 Estim Creat Clear Calc 124.7 Estimated GFR > 60 Random Glucose 252 H Calcium 10.0 Phosphorus 3.5 Magnesium 2.6 Total Bilirubin 0.9 AST 54 H ALT 110 H Alkaline Phosphatase 161 H Total Protein 8.4 H Albumin 3.6 Assessment and Plan (1) Acute hypokalemia: Status: Acute (2) Small bowel obstruction: Status: Acute Plan 53yo M with hx long segment SBO s/p resection for ischemic bowel in July 2023, 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 Found to have high-grade SBO. Hypotensive but fluid-responsive. SBO -no abdominal pain, passing flatus and bowel movement, seen by General surgery they recommend to clamp NG times 12 hours. - continue IV TPN / NPO/ivf - continue PT ANA likely prerenal resolved with IV fluids, cont. IV fluids since patient remains NPO Acute hyper magnesemia likely due to ANA ,resolved. acute hypoK - repleted transaminasemia - chronic; previously HCV negative and HBV immune from prior infection; likely fatty liver disease as noted on prior US hx DVT/PE - resume rivaroxaban when taking POs; for now, continue enoxaparin GBS - next IVIg was due 05/08, since hospitalized will resume once clinically improved VTE ppx - Lovenox dispo - eventual home with VNA In my clinical judgment, the patient requires continued inpatient hospitalization for the following reasons: SBO, npo, TPN Quality Stroke Does the patient have a stroke diagnosis?: No VTE Prior VTE?: Yes VTE Risk Level:: Medical - moderate - high VTE Device Contraindication: N/A - Device Ordered VTE Drug Contraindication: Treatment Not Indicated
[2024-05-11 15:05] VITALS: BP 102/72; PULSE 118; RESP 16; TEMP 36.2; O2SAT 93
[2024-05-11] MEDS: Lactated Ringers 500 ML IVCONT (16:29)
[2024-05-11 19:33] VITALS: BP 125/85; PULSE 107; RESP 20; TEMP 36.3; O2SAT 98
[2024-05-11] MEDS: Parenteral Nutrition 2,040 ML 85 ML IV (21:27)
[2024-05-12] MEDS: Morphine Sulfate 2 MG/ML CARTRIDGE IVPUSH ×2 (00:25→22:59)
[2024-05-12] MEDS: Acetaminophen 1,000 MG/100 ML PIGGYBACK 400 MG IV ×2 (00:39→22:11)
[2024-05-12 03:33] VITALS: BP 110/73; PULSE 106; RESP 16; TEMP 36.3; O2SAT 96
[2024-05-12] MEDS: 0.9 % Sodium Chloride 1,000 ML 80 ML IVCONT ×2 (06:18→21:49)
[2024-05-12] MEDS: Pantoprazole Sodium 40 MG/10 ML VIAL IVPUSH ×2 (06:18→15:49)
--- NOTE | 2024-05-12 06:31 | PC.NURSE ---
NGT output from 8:30 PM yesterday to 6:30 this morning was 50 ml. Patient was medicated for abdominal pain once with Tylenol IV and once with Morphine with good relief. BM yesterday late evening.
[2024-05-12 07:00] LABS: Alanine Aminotransferase 120 U/L (0-40); Albumin Level 3.3 g/dL (3.5-5.0); Alkaline Phosphatase 182 U/L (39-117); Anion Gap 17 (12-20); Aspartate Amino Transferase 69 U/L (5-37); Blood Urea Nitrogen 54 mg/dL (9-16); Calcium 9.5 mg/dL (8.4-10.2); Carbon Dioxide 25 mmol/L (22-29); Chloride 105 mmol/L (96-108); Creatinine Clr Calc Pharmacy 144.7; Estimated Glomerular Filt Rate > 60; Glucose Random 234 mg/dL (60-115); Magnesium 2.3 mg/dL (1.6-2.6); Phosphorus 3.5 mg/dL (2.7-4.5); Potassium 4.7 mmol/L (3.3-5.1); Sodium 142 mmol/L (135-145); Total Protein 8.3 g/dL (6.5-8.0)
[2024-05-12 07:28] VITALS: BP 98/63; PULSE 104; RESP 16; TEMP 36.1; O2SAT 95
[2024-05-12] MEDS: Enoxaparin Sodium 40 MG/0.4 ML SYRINGE SUBCUT (08:09)
[2024-05-12] MEDS: 0.9 % Sodium Chloride Flush 10 ML SYRINGE 5 ML IVFLUSH ×2 (08:11→21:51)
--- NOTE | 2024-05-12 08:16 | P.PNGS_ITS ---
Subjective Subjective Date of Service: 05/12/24 Interval history: fels well this morning NGT clamped for 12 hours yesterday - output was 50cc on unclamping however, he describes having some abdl pain later in the day with clamping has BMs has flatus Physical Exam 2 Vital Signs: Vital Signs: Last Vital Signs Temp 96.9 F 05/12/24 07:28 Pulse 104 H 05/12/24 07:28 Resp 16 05/12/24 07:28 BP 98/63 05/12/24 07:28 Pulse Ox 95 05/12/24 07:28 O2 Del Method Room Air 05/12/24 07:28 BMI result Body Mass Index 30.4 Const: General: comfortable and no acute distress Resp: Effort & Inspection: normal respiratory effort GI: Palpation (GI): Soft to palpation, not firm, nontender and no guarding Objective Data Active Medications Acetaminophen (Acetaminophen 325 Mg Tablet) 650 mg PO Q6H PRN PRN Reason: Pain, Mild (Pain Scale 1-3), fever or headache Calcium Carbonate (Calcium Carbonate 750 Mg Tab.Chew) 750 mg PO Q4H PRN PRN Reason: Heartburn Enoxaparin Sodium (Enoxaparin Sodium 40 Mg/0.4 Ml Syringe) 40 mg SUBCUT Q24H [facility] Last Admin: 05/12/24 08:09 Dose: 40 mg Documented By: ARMANDO Acetaminophen (Ofirmev) 1,000 mg in 100 mls @ 400 mls/hr IV Q6H PRN PRN Reason: Pain, Severe (Pain Scale 7-10) Last Infusion: 05/12/24 00:54 Dose: Infused Documented By: ИВАН Sodium Chloride (Ns) 1,000 mls @ 80 mls/hr IVCONT .[id number] [facility] Last Admin: 05/12/24 06:18 Dose: 80 mls/hr Documented By: ИВАН Nutrition (Parenteral) (Parenteral Nutrition) 2,040 mls @ 85 mls/hr IV .Q24H [facility]; Protocol Stop: 05/12/24 20:59 Last Admin: 05/11/24 21:27 Dose: 85 mls/hr Documented By: ИВАН Magnesium Hydroxide (Milk Of Magnesia 30 Ml Oral.Susp) 30 ml PO DAILY PRN PRN Reason: Constipation Melatonin (Melatonin 3 Mg Tablet) 6 mg PO BEDTIME PRN PRN Reason: Insomnia Morphine Sulfate (Morphine Sulfate 2 Mg/Ml Cartridge) 2 mg IVPUSH Q6H PRN; Protocol PRN Reason: Pain, Severe (Pain Scale 7-10) Last Admin: 05/12/24 00:25 Dose: 2 mg Documented By: ИВАН Ondansetron HCl (Ondansetron Hcl 4 Mg/2 Ml Vial) 4 mg IVPUSH Q8H PRN PRN Reason: Nausea and Vomiting Last Admin: 05/07/24 19:52 Dose: 4 mg Documented By: ISAAC Pantoprazole Sodium (Pantoprazole Sodium 40 Mg/10 Ml Vial) 40 mg IVPUSH BID@0630,1630 [facility] Last Admin: 05/12/24 06:18 Dose: 40 mg Documented By: ИВАН Pharmacy Consult (Consult Rx Parenteral Nutrition Ordering) 1 each MISCELLANE DAILY PRN PRN Reason: Consult order Sodium Chloride (0.9 % Sodium Chloride Flush 3 Ml Syringe) 3 ml IVFLUSH QSHIFT [facility] Last Admin: 05/12/24 08:11 Dose: Not Given Documented By: ARMANDO Non-Admin Reason: picc line Sodium Chloride (0.9 % Sodium Chloride Flush 10 Ml Syringe) 5 ml IVFLUSH TID [facility] Last Admin: 05/12/24 08:11 Dose: 5 ml Documented By: ARMANDO Labs 05/01/24 05:47 05/12/24 06:10 Labs: Laboratory Results - last 24 hr 05/12/24 06:10 Hold Purple Top SEE NOTE Anion Gap 17 Estim Creat Clear Calc 144.7 Estimated GFR > 60 Random Glucose 234 H Calcium 9.5 Phosphorus 3.5 Magnesium 2.3 Total Bilirubin 1.0 AST 69 H ALT 120 H Alkaline Phosphatase 182 H Total Protein 8.3 H Albumin 3.3 L Procedures Date of Service Date of Service: 05/12/24 Progress Note: A&P Assessment and plan (1) Small bowel obstruction: Status: Acute Assessment and Plan: NGT clamped for 12 hours yesterday - he admits to episodes of pain towards the end passing flatus has BMs abd soft BUN better - given bolus yesterday will clamp NGT for 6 hours today TPN Time Spent With Patient Time: Total time managing care of this patient today ____ minutes. Quality Stroke Does the patient have a stroke diagnosis?: No VTE Prior VTE?: Yes VTE Risk Level:: Medical - moderate - high VTE Device Contraindication: N/A - Device Ordered VTE Drug Contraindication: Treatment Not Indicated
--- NOTE | 2024-05-12 10:21 | MHC.CLN ---
F/U CONTINUES NPO WITH TPN. LABS REVIEWED. BUN IMPROVING. CONTINUE TPN AT MAX GOAL RATE OF 85 ML PER HOUR WITH 76 G LIPIDS PROVIDES 2208 TOTAL KCALS (24.8 KCALS/KG IBW), 102 G PROTEIN (1.15 G/KG IBW), 306 G DEXTROSE REPLETE LYTES NEEDED. FOLLOW FOR TPN TOLERANCE AND DIET ADVANCEMENT.
--- NOTE | 2024-05-12 11:28 | P.PNIM_ITS ---
Subjective Subjective Date of Service: 05/12/24 Interval History: Being followed for small-bowel obstruction, NGT being clamped daily as per General surgery, was clamped 12 hours yesterday patient developed abdominal pain later in the day, his moving bowel and flatus, no nausea, no vomiting decreased NG output, no abdominal pain this morning. Review of Systems All other system reviewed and are negative. Physical Exam 2 Vital Signs: Vital Signs: Last Vital Signs Temp 96.9 F 05/12/24 07:28 Pulse 104 H 05/12/24 07:28 Resp 16 05/12/24 07:28 BP 98/63 05/12/24 07:28 Pulse Ox 95 05/12/24 07:28 O2 Del Method Room Air 05/12/24 07:28 BMI result Body Mass Index 30.4 Const: Other: Gen: in no acute distress HEENT: sclera anicteric, moist mucus membranes Neck: supple Lungs: clear to auscultation bilaterally Heart: regular rate and rhythm, no murmurs Abd: soft, non-distended, normal bowel sounds Ext: no edema, left arm double-lumen PICC in place Skin: warm/well-perfused Neuro: alert and oriented x3, no focal findings Psych: appropriate affect Objective Data Active Medications Acetaminophen (Acetaminophen 325 Mg Tablet) 650 mg PO Q6H PRN PRN Reason: Pain, Mild (Pain Scale 1-3), fever or headache Calcium Carbonate (Calcium Carbonate 750 Mg Tab.Chew) 750 mg PO Q4H PRN PRN Reason: Heartburn Enoxaparin Sodium (Enoxaparin Sodium 40 Mg/0.4 Ml Syringe) 40 mg SUBCUT Q24H [facility] Last Admin: 05/12/24 08:09 Dose: 40 mg Documented By: ARMANDO Acetaminophen ([facility]) 1,000 mg in 100 mls @ 400 mls/hr IV Q6H PRN PRN Reason: Pain, Severe (Pain Scale 7-10) Last Infusion: 05/12/24 00:54 Dose: Infused Documented By: ИВАН Sodium Chloride (Ns) 1,000 mls @ 80 mls/hr IVCONT .[id number] [facility] Last Admin: 05/12/24 06:18 Dose: 80 mls/hr Documented By: ИВАН Nutrition (Parenteral) (Parenteral Nutrition) 2,040 mls @ 85 mls/hr IV .Q24H [facility]; Protocol Stop: 05/12/24 20:59 Last Admin: 05/11/24 21:27 Dose: 85 mls/hr Documented By: ИВАН Nutrition (Parenteral) (Parenteral Nutrition) 2,040 mls @ 85 mls/hr IV .Q24H [facility]; Protocol Stop: 05/13/24 20:59 Magnesium Hydroxide (Milk Of Magnesia 30 Ml Oral.Susp) 30 ml PO DAILY PRN PRN Reason: Constipation Melatonin (Melatonin 3 Mg Tablet) 6 mg PO BEDTIME PRN PRN Reason: Insomnia Morphine Sulfate (Morphine Sulfate 2 Mg/Ml Cartridge) 2 mg IVPUSH Q6H PRN; Protocol PRN Reason: Pain, Severe (Pain Scale 7-10) Last Admin: 05/12/24 00:25 Dose: 2 mg Documented By: ИВАН Ondansetron HCl (Ondansetron Hcl 4 Mg/2 Ml Vial) 4 mg IVPUSH Q8H PRN PRN Reason: Nausea and Vomiting Last Admin: 05/07/24 19:52 Dose: 4 mg Documented By: ISAAC Pantoprazole Sodium (Pantoprazole Sodium 40 Mg/10 Ml Vial) 40 mg IVPUSH BID@0630,1630 [facility] Last Admin: 05/12/24 06:18 Dose: 40 mg Documented By: ИВАН Pharmacy Consult (Consult Rx Parenteral Nutrition Ordering) 1 each MISCELLANE DAILY PRN PRN Reason: Consult order Sodium Chloride (0.9 % Sodium Chloride Flush 3 Ml Syringe) 3 ml IVFLUSH QSHIFT [facility] Last Admin: 05/12/24 08:11 Dose: Not Given Documented By: ARMANDO Non-Admin Reason: picc line Sodium Chloride (0.9 % Sodium Chloride Flush 10 Ml Syringe) 5 ml IVFLUSH TID [facility] Last Admin: 05/12/24 08:11 Dose: 5 ml Documented By: ARMANDO Labs 05/01/24 05:47 05/12/24 06:10 Labs: Laboratory Results - last 24 hr 05/12/24 06:10 Hold Purple Top SEE NOTE Anion Gap 17 Estim Creat Clear Calc 144.7 Estimated GFR > 60 Random Glucose 234 H Calcium 9.5 Phosphorus 3.5 Magnesium 2.3 Total Bilirubin 1.0 AST 69 H ALT 120 H Alkaline Phosphatase 182 H Total Protein 8.3 H Albumin 3.3 L Assessment and Plan (1) Acute hypokalemia: Status: Acute (2) Small bowel obstruction: Status: Acute Plan 53yo M with hx long segment SBO s/p resection for ischemic bowel in July 2023, 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 Found to have high-grade SBO. Hypotensive but fluid-responsive. Acute SBO -no abdominal pain, passing flatus and bowel movement, seen by General surgery they recommend to clamp NGT for 6 hours. - continue IV TPN / NPO/ivf - continue bedside PT receiving [id number] and strengthening activity. ANA likely prerenal resolved with IV fluids, cont. IV fluids since patient remains NPO Acute hyper magnesemia likely due to ANA ,resolved. acute hypoK - repleted transaminasemia - chronic; previously HCV negative and HBV immune from prior infection; likely fatty liver disease as noted on prior US hx DVT/PE - resume rivaroxaban when taking POs; for now, continue enoxaparin. GBS - next IVIg was due 05/08, since hospitalized will resume once clinically improved VTE ppx - Lovenox dispo - eventual home with VNA In my clinical judgment, the patient requires continued inpatient hospitalization for the following reasons: SBO, npo, TPN and IV fluids Quality Stroke Does the patient have a stroke diagnosis?: No VTE Prior VTE?: Yes VTE Risk Level:: Medical - moderate - high VTE Device Contraindication: N/A - Device Ordered VTE Drug Contraindication: Treatment Not Indicated
[2024-05-12 13:31] VITALS: BP 98/63; PULSE 104; O2SAT 95
[2024-05-12 15:22] VITALS: BP 103/71; PULSE 113; RESP 18; TEMP 36.2; O2SAT 98
[2024-05-12 19:49] VITALS: BP 99/65; PULSE 122; RESP 18; TEMP 36.3; O2SAT 100
[2024-05-12] MEDS: Parenteral Nutrition 2,040 ML 85 ML IV (21:50)
[2024-05-12 23:07] VITALS: PULSE 115
[2024-05-13] VITALS (38 sets, daily range): BP systolic 61–122; BP diastolic 26–75; PULSE 117–169; RESP 18–36; TEMP 34–39.7; O2SAT 81–100
[2024-05-13] MEDS: Pantoprazole Sodium 40 MG/10 ML VIAL IVPUSH ×2 (06:39→16:34)
--- NOTE | 2024-05-13 06:42 | PC.NURSE ---
Patient is very uncomfortable in the hospital bed, being here so long. He is asking for a larger bed and adds that he has had a larger bed before when hospitalized. He is under 300lbs. He does have an airloss in place.
--- NOTE | 2024-05-13 08:13 | ECG_ITS ---
Test Reason : tachycardia Blood Pressure : / mmHG Vent. Rate : 153 BPM Atrial Rate : 000 BPM P-R Int : 000 ms QRS Dur : 096 ms QT Int : 298 ms P-R-T Axes : 000 -14 080 degrees QTc Int : 475 ms Sinus tachycardia versus Supraventricular tachycardia When compared with ECG of 25-APR-2024 22:04, Sinus rhythm has replaced Junctional rhythm Vent. rate has increased BY 70 BPM Referred By: Natasha Gross Electronically Signed By:WILLIAM LU MD
[2024-05-13] MEDS: Adenosine 6 MG/2 ML VIAL IVPUSH ×2 (08:34→08:36)
[2024-05-13] MEDS: Adenosine 6 MG/2 ML VIAL 12 MG IVPUSH ×2 (08:38→08:51)
[2024-05-13 08:44] LABS: Glucose, Whole Blood 189 mg/dL (60-115)
[2024-05-13] MEDS: Etomidate 20 MG/10 ML VIAL 6 MG IVPUSH (08:52)
[2024-05-13] MEDS: Etomidate 20 MG/10 ML VIAL 12 MG IVPUSH (09:01)
[2024-05-13] MEDS: Rocuronium Bromide 50 MG/5 ML VIAL IVPUSH (09:01)
[2024-05-13 09:06] LABS: B Type Natriuretic Peptide 40 pg/mL (<100)
[2024-05-13] MEDS: Amiodarone/Dextrose 150 MG/100 ML PLAST..BAG 600 MG IV (09:07)
[2024-05-13 09:09] LABS: Troponin-I High Sensitivity < 2.7 ng/L (<3.5-35.0)
[2024-05-13] MEDS: propofoL 1,000 MG/100 ML VIAL 19.87 MG IVCONT (09:11)
--- NOTE | 2024-05-13 09:13 | PC.NURSE ---
Rapid Response called for pt after stat EKG read SVT. Patient was stabalized and sent to ICU. 0830: SVT 155 no bp 08:34: 6mg adenosine IVP 08:36: 6mg adenosine IVP HR 145 SVT NS bolus 08:38: 12mg [place] IVP HR 150 no bp 08:40: blood sugar 189 08:41: HR 150s 08:51 12mg adenosine IVP HR 150s unsuccessful 08:52: 6 etomidate 08:53 SHOCK delivered HR 150s 09:01: 12 etomidate 50 rocuronium 09:02: Levo started at 0.05mcg 09:02 intubated 09:04: levo increased to 0.1mcg 09:06: shock delivered 09:07 150 amiodarone IVP bp 75/52 hr 160s 09:11 shock delivered 09:11 propafol started at 30, bp 75/44 hr 160s 09:12 increased levo to 0.3mcg patient transferred to ICU at 09:16
[2024-05-13 09:14] LABS: Alanine Aminotransferase 105 U/L (0-40); Albumin Level 2.9 g/dL (3.5-5.0); Alkaline Phosphatase 186 U/L (39-117); Anion Gap 19 (12-20); Aspartate Amino Transferase 58 U/L (5-37); Bilirubin Total 1.6 mg/dL (0.0-1.0); Blood Urea Nitrogen 49 mg/dL (9-16); Calcium 8.9 mg/dL (8.4-10.2); Carbon Dioxide 21 mmol/L (22-29); Chloride 111 mmol/L (96-108); Creatinine Clr Calc Pharmacy 113.8; Estimated Glomerular Filt Rate > 60; Glucose Random 233 mg/dL (60-115); Magnesium 2.1 mg/dL (1.6-2.6); Potassium 4.7 mmol/L (3.3-5.1); Sodium 146 mmol/L (135-145); Total Protein 7.3 g/dL (6.5-8.0)
--- NOTE | 2024-05-13 09:22 | P.PNGS_ITS ---
Subjective Subjective Date of Service: 05/14/24 Interval history: pt was tachycardic when seen earlier had called the nurses earlier saying he felt he was passing out denies abdl pain says he felt fine during the night no events reported overnight NGT clamped yesterday for 6 hours - very little residual has been passing flatus, BMs Physical Exam 2 Vital Signs: Vital Signs: Last Vital Signs Temp 98.2 F 05/13/24 07:34 Pulse 144 H 05/13/24 07:34 Resp 18 05/13/24 07:34 BP 93/61 05/13/24 07:34 Pulse Ox 99 05/13/24 04:00 O2 Del Method Room Air 05/13/24 04:00 BMI result Body Mass Index 30.4 Const: Other: short of breath when seen, answering questions and alert Resp: Other: short of breath Cardio: Rate: tachycardic GI: Palpation (GI): Soft to palpation, not firm and nontender Objective Data Active Medications Acetaminophen (Acetaminophen 325 Mg Tablet) 650 mg PO Q6H PRN PRN Reason: Pain, Mild (Pain Scale 1-3), fever or headache Calcium Carbonate (Calcium Carbonate 750 Mg Tab.Chew) 750 mg PO Q4H PRN PRN Reason: Heartburn Enoxaparin Sodium (Enoxaparin Sodium 40 Mg/0.4 Ml Syringe) 40 mg SUBCUT Q24H [facility] Last Admin: 05/12/24 08:09 Dose: 40 mg Documented By: ARMANDO Acetaminophen (Ofirmev) 1,000 mg in 100 mls @ 400 mls/hr IV Q6H PRN PRN Reason: Pain, Severe (Pain Scale 7-10) Last Infusion: 05/12/24 22:26 Dose: Infused Documented By: ИВАН Sodium Chloride (Ns) 1,000 mls @ 80 mls/hr IVCONT .[id number] [facility] Last Admin: 05/13/24 04:27 Dose: Not Given Documented By: CHANELL Non-Admin Reason: IV Running Nutrition (Parenteral) (Parenteral Nutrition) 2,040 mls @ 85 mls/hr IV .Q24H [facility]; Protocol Stop: 05/13/24 20:59 Last Admin: 05/12/24 21:50 Dose: 85 mls/hr Documented By: ИВАН Magnesium Hydroxide (Milk Of Magnesia 30 Ml Oral.Susp) 30 ml PO DAILY PRN PRN Reason: Constipation Melatonin (Melatonin 3 Mg Tablet) 6 mg PO BEDTIME PRN PRN Reason: Insomnia Morphine Sulfate (Morphine Sulfate 2 Mg/Ml Cartridge) 2 mg IVPUSH Q6H PRN; Protocol PRN Reason: Pain, Severe (Pain Scale 7-10) Last Admin: 05/12/24 22:59 Dose: 2 mg Documented By: ИВАН Ondansetron HCl (Ondansetron Hcl 4 Mg/2 Ml Vial) 4 mg IVPUSH Q8H PRN PRN Reason: Nausea and Vomiting Last Admin: 05/07/24 19:52 Dose: 4 mg Documented By: ISAAC Pantoprazole Sodium (Pantoprazole Sodium 40 Mg/10 Ml Vial) 40 mg IVPUSH BID@0630,1630 [facility] Last Admin: 05/13/24 06:39 Dose: 40 mg Documented By: CHANELL Pharmacy Consult (Consult Rx Parenteral Nutrition Ordering) 1 each MISCELLANE DAILY PRN PRN Reason: Consult order Sodium Chloride (0.9 % Sodium Chloride Flush 3 Ml Syringe) 3 ml IVFLUSH QSHIFT [facility] Last Admin: 05/13/24 08:10 Dose: Not Given Documented By: CAROL Non-Admin Reason: IV Running Sodium Chloride (0.9 % Sodium Chloride Flush 10 Ml Syringe) 5 ml IVFLUSH TID [facility] Last Admin: 05/13/24 08:11 Dose: Not Given Documented By: CAROL Non-Admin Reason: IV Running Labs 05/14/24 04:41 05/14/24 04:41 Labs: Laboratory Results - last 24 hr 05/13/24 05/13/24 08:39 08:40 Anion Gap 19 Estim Creat Clear Calc 113.8 Estimated GFR > 60 POC Glucose 189 H Random Glucose 233 H Calcium 8.9 D Phosphorus 4.0 Magnesium 2.1 Total Bilirubin 1.6 H AST 58 H ALT 105 H Alkaline Phosphatase 186 H Troponin I High Sens < 2.7 B-Natriuretic Peptide 40 Total Protein 7.3 Albumin 2.9 L Procedures Date of Service Date of Service: 05/14/24 Progress Note: A&P Assessment and plan (1) Small bowel obstruction: Status: Acute Assessment and Plan: in SVT - did not convert with shock intubated, being transferred to ICU abd soft, benign on exam ?PE, HI. sepsis? workup in the unit on Levophed criticially ill ean ok partner Mercedes informed over the phone Time Spent With Patient Time: Total time managing care of this patient today ____ minutes. Quality Stroke Does the patient have a stroke diagnosis?: No VTE Prior VTE?: Yes VTE Risk Level:: Medical - moderate - high VTE Device Contraindication: N/A - Device Ordered VTE Drug Contraindication: Treatment Not Indicated
[2024-05-13] MEDS: Vasopressin 20 UNIT/100 ML INFUS..BTL 12 UNIT IVCONT ×3 (09:37→23:10)
--- NOTE | 2024-05-13 09:42 | CA_ITS ---
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 Technically extremely limited study due to patient's clinical status as well as morbid obesity and poor windows 2. On limited view biventricular systolic function appears to be normal Findings Procedure Information The study quality is limited by patients body habitus and limitations of a portable exam. Left Ventricle The left ventricle was not well visualized. The left ventricular systolic function is normal. endocardial definition was poor and LV systolic function appears hyperdynamic LV EF greater than 50% Right Ventricle The right ventricle was not well visualized. Normal right ventricular cavity size. There is normal right ventricular systolic function. Atria The left atrium was not well visualized. Interatrial shunt cannot be excluded. The right atrium was not well visualized. Aortic Valve The aortic valve was not well visualized. Mitral Valve The mitral valve was not well visualized. Pulmonic Valve The pulmonic valve was not well visualized. Tricuspid Valve The tricuspid valve was not well visualized. Great Vessels The aorta was not well visualized. The pulmonary artery was not well visualized. Venous The inferior vena cava was not well visualized. Pericardium/Pleural The pericardium was not well visualized. Prior Study Comparison No prior study available for comparison. Updated in Other Vendor System with Status of Final Wayne Yee MD electronically signed on 05/13/2024 2:13:52 PM with status of Final
[2024-05-13] MEDS: fentaNYL citrate/NS 1,000 MCG/100 ML PLAST..BAG 2.5 MCG IVCONT ×2 (09:55→14:33)
[2024-05-13 09:59] LABS: Hematocrit 48.9 % (42.0-52.0); Hemoglobin 14.8 g/dl (14.0-18.0); Mean Corpuscular HGB Conc 30.3 g/dl (31.0-36.0); Mean Corpuscular Hemoglobin 27.6 pg (27.0-33.0); Mean Corpuscular Volume 91.2 fL (80.0-98.0); Mean Platelet Volume 11.5 fL (9.4-12.4); Platelet Count 321 X10*3/uL (160-400); Red Blood Count 5.36 X10*6/uL (4.60-5.80); Red Cell Distribution Width 15.2 % (11.0-16.0)
[2024-05-13 10:03] LABS: Venous Blood Gas Refer to POC result
[2024-05-13 10:06] LABS: WBC ABN SCTR FOR CBC 1; White Blood Count 9.1 X10*3/uL (4.8-10.8)
[2024-05-13 10:12] LABS: VBG Base Excess -11.7 mmol/L; VBG pCO2 55 mmHg; VBG pH 7.11 (7.32-7.43); VBG pO2 56 mmHg
[2024-05-13 10:13] LABS: VBG HCO3 18 mmol/L (22-26)
[2024-05-13 10:16] LABS: ABG HCO3 14 mmol/L (22-26); ABG pCO2 40 mmHg (32-45); ABG pH 7.14 (7.35-7.45); ABG pO2 109 mmHg (83-108)
[2024-05-13 10:21] LABS: Lactic Acid 4.7 mmol/L (0.5-2.0)
[2024-05-13] MEDS: Rocuronium Bromide 50 MG/5 ML VIAL 100 MG IVPUSH (10:21)
[2024-05-13] MEDS: Sodium Bicarbonate 8.4% 50 MEQ/50 ML SYRINGE 150 MEQ IVPUSH (10:25)
[2024-05-13 10:31] LABS: Atypical Lymph Absolute Manual 0.1 x10*3/uL; Atypical Lymphs Percent Manual 1 % (0-6); Band Neutrophils Percent 33 % (3-5); Lymphocytes Absolute Manual 1.7 X10*3/uL (1.2-4.9); Lymphocytes Percent Manual 19 % (20-40); Metamyelocytes Absolute 0.6 X10*3/uL; Metamyelocytes Percent 7 %; Neutrophils Absolute Manual 6.6 X10*3/uL (2.0-8.3); Neutrophils Percent Manual 40 % (45-73)
[2024-05-13 10:33] LABS: Platelet Estimate NORMAL (NORMAL); Platelet Morphology Comment NORMAL; RBC Morphology NORMAL
[2024-05-13 10:34] LABS: Dohle Bodies PRESENT; Toxic Vacuolation PRESENT
[2024-05-13] MEDS: 0.9 % Sodium Chloride 1,000 ML 999 ML IV (11:00)
[2024-05-13] MEDS: Sodium Bicarbonate 8.4% 150 MEQ in Dextrose 5 % 850 ML 999 MEQ IV ×3 (11:00→18:54)
--- NOTE | 2024-05-13 11:32 | W.PM.CCHP ---
Procedures Date of Service Date of Service: 05/13/24 Arterial Line Consent: Emergent-no informed consent obtained Sterile Technique Used: Yes Time out performed: Yes Size (Gauge): 20 Technique used: modified Seldinger technique Post-Procedure: line sutured into place Patient tolerated procedure: well and no complications Complications: none Site: right and femoral Central Line Placement Left IJ: Consent for Procedure: Emergent-no informed consent obtained Time out performed: Yes Sterile Technique Used: Yes Patient placed on monitor/pulse ox: Yes MD prep: mask, gown and gloves Central line prep: Chlorhexidine scrub and sterile drapes applied Ultrasound used for placement: Yes Central line lumen inserted: triple Post procedure: sutured in place, good blood return, all ports aspirated, flushed, capped and sterile dressing applied Post procedure x-ray: tip of catheter in good position Patient tolerated procedure: well and no complications Complications: none
--- NOTE | 2024-05-13 11:34 | P.CONCC_ITS ---
History of Present Illness Data of Consult Service Date: 05/13/24 Primary Care Provider: Ramiro Stewart MD [facility] Reason for consult: Hypotension, tachycardia 53-year-old gentleman with PMH of long segment SBO s/p resection secondary to ischemic bowel in 07/[address] Brasher, DVT/PE on Xarelto (last dose 04/24 PM), Guillian barre with IVIG infusions monthly admitted to the hospital on 04/26/2024 due to nausea, vomiting secondary to small-bowel obstruction and he was managed conservatively in the floor. This patient hypotensive, tachycardic 60, unresponsive so a rapid response was called, he received adenosine 2 doses for SVT, later cardioverted without much benefit. So eventually he was intubated, placed on ventilator support and moved to ICU Review of Systems 2 Review of Systems: Unable to obtain due to mental status PMFSH Past Medical History Medical History (Updated 05/13/24 @ 11:42 by Fernie Flores MD) Morbid obesity Abdominal pain Guillain-[place] syndrome Femur fracture, right DVT (deep venous thrombosis) Pulmonary embolism Surgical History Surgical History History of abdominal surgery (~10/2023) Status post small bowel resection H/O hand surgery Social History Social History Household Members: Family Housing: House Do you presently have visiting nurse or other home services: No ([employer] 24/7) Alcohol intake: current Alcohol intake frequency: a few times a week Comment: wheelchair bound at baseline Patient Tobacco Use Status: Former Tobacco user Tobacco use type: Cigarette Substance Use Type: Marijuana Advance Directives Date on File: 08/06/23 service: No Meds Allergies Allergy/AdvReac Type Severity Reaction Status Date / Time No Known Allergies Allergy Verified 04/25/24 22:07 Active Medications: Current Medications Acetaminophen (Acetaminophen 325 Mg Tablet) 650 mg PO Q6H PRN PRN Reason: Pain, Mild (Pain Scale 1-3), fever or headache Enoxaparin Sodium (Enoxaparin Sodium 40 Mg/0.4 Ml Syringe) 40 mg SUBCUT Q24H [facility] Last Admin: 05/12/24 08:09 Dose: 40 mg Acetaminophen (Ofirmev) 1,000 mg in 100 mls @ 400 mls/hr IV Q6H PRN PRN Reason: Pain, Severe (Pain Scale 7-10) Last Infusion: 05/12/24 22:26 Dose: Infused Sodium Chloride (Ns) 1,000 mls @ 80 mls/hr IVCONT .[id number] [facility] Last Infusion: 05/13/24 11:33 Dose: Infused Nutrition (Parenteral) (Parenteral Nutrition) 2,040 mls @ 85 mls/hr IV .Q24H [facility]; Protocol Stop: 05/13/24 20:59 Last Infusion: 05/13/24 10:30 Dose: 0 mls/hr Phenylephrine HCl 20 mg/ (Sodium Chloride) 252 mls @ 0 mls/hr IVCONT .Q0M [facility]; Protocol Sodium Bicarbonate 150 meq/ (Dextrose) 1,000 mls @ 999 mls/hr IV .Q1H1M ONE Stop: 05/13/24 11:47 Sodium Bicarbonate 150 meq/ (Dextrose) 1,000 mls @ 100 mls/hr IV .Q10H [facility] Midazolam HCl (Versed) 50 mg in 50 mls @ 2 mls/hr IVCONT .Q24H [facility] Fentanyl (Sublimaze/Ns) 1,000 mcg in 100 mls @ 0 mls/hr IVCONT .Q0M [facility]; Protocol Propofol (Diprivan) 1,000 mg in 100 mls @ 0 mls/hr IVCONT .Q0M [facility]; Protocol Norepinephrine Bitartrate (Levophed) 8 mg in 250 mls @ 0 mls/hr IVCONT .Q0M [facility]; Protocol Vasopressin (Vasostrict) 20 unit in 100 mls @ 12 mls/hr IVCONT .Q8H20M [facility] Phenylephrine HCl 20 mg/ (Sodium Chloride) 252 mls @ 0 mls/hr IVCONT .Q0M [facility]; Protocol Sodium Chloride (Ns) 1,000 mls @ 999 mls/hr IV .Q1H1M [facility] Stop: 05/13/24 12:18 Sodium Bicarbonate 150 meq/ (Dextrose) 1,000 mls @ 999 mls/hr IV .Q1H1M [facility] Stop: 05/13/24 13:00 Magnesium Hydroxide (Milk Of Magnesia 30 Ml Oral.Susp) 30 ml PO DAILY PRN PRN Reason: Constipation Melatonin (Melatonin 3 Mg Tablet) 6 mg PO BEDTIME PRN PRN Reason: Insomnia Morphine Sulfate (Morphine Sulfate 2 Mg/Ml Cartridge) 2 mg IVPUSH Q6H PRN; Protocol PRN Reason: Pain, Severe (Pain Scale 7-10) Last Admin: 05/12/24 22:59 Dose: 2 mg Naloxone HCl (Naloxone Hcl 0.4 Mg/Ml Vial) 0.2 mg IVPUSH Q2M PRN PRN Reason: Excessive sedation or RR < 8 Ondansetron HCl (Ondansetron Hcl 4 Mg/2 Ml Vial) 4 mg IVPUSH Q8H PRN PRN Reason: Nausea and Vomiting Last Admin: 05/07/24 19:52 Dose: 4 mg Pantoprazole Sodium (Pantoprazole Sodium 40 Mg/10 Ml Vial) 40 mg IVPUSH BID@0630,1630 [facility] Last Admin: 05/13/24 06:39 Dose: 40 mg Pharmacy Consult (Consult Rx Parenteral Nutrition Ordering) 1 each MISCELLANE DAILY PRN PRN Reason: Consult order Sodium Chloride (0.9 % Sodium Chloride Flush 3 Ml Syringe) 3 ml IVFLUSH QSHIFT [facility] Last Admin: 05/13/24 08:10 Dose: Not Given Sodium Chloride (0.9 % Sodium Chloride Flush 10 Ml Syringe) 5 ml IVFLUSH TID [facility] Last Admin: 05/13/24 11:33 Dose: Not Given Home Medications ?Medication ?Instructions ?Recorded ?Confirmed ?Last Taken ?Type rivaroxaban 20 mg tablet (Xarelto) 20 mg PO DAILY@1700 10/18/23 04/26/24 04/24/24 History cyanocobalamin (vitamin B-12) 1,000 mcg PO DAILY 03/06/24 04/26/24 04/24/24 History 1,000 mcg tablet (Vitamin B-12) ferrous sulfate 325 mg (65 mg 325 mg PO DAILY 03/06/24 04/26/24 04/24/24 History iron) tablet folic acid 1 mg tablet 1 mg PO DAILY 03/06/24 04/26/24 04/24/24 History magnesium oxide 400 mg (241.3 mg 800 mg PO BID 03/21/24 04/26/24 04/24/24 History magnesium) tablet Physical Exam 2 Vital Signs: Vital Signs: Last Vital Signs Temp 98.2 F 05/13/24 07:34 Pulse 144 H 05/13/24 07:34 Resp 18 05/13/24 07:34 BP 93/61 05/13/24 07:34 Pulse Ox 99 05/13/24 04:00 O2 Del Method Room Air 05/13/24 04:00 FiO2 100 05/13/24 09:38 BMI result Body Mass Index 30.4 General: In severe acute distress, unresponsive, smelling bad Nutritional Appearance: Morbidly obese and overweight Eyes: appearance normal, both eyes and all related structures; Alignment and Position: alignment normal and position normal Neck: No lymphadenopathy, no thyromegaly Resp: bilateral air entry equal, basilar crackles heard Cardio: Regular rate, regular rhythm; Heart sounds: S1 normal heart sound present and S2 normal heart sound present GI: soft, nontender, no guarding, no hepatosplenomegaly : bladder normal to inspection, bladder normal to palpation, no renal angle tenderness Skin: no rashes or lesions noted and elasticity normal Neuro: Unresponsive, no focal deficits Results Labs 05/13/24 09:52 05/13/24 08:39 Labs: Short CBC 05/13/24 Range/Units 09:52 WBC 9.1 (4.8-10.8) X10*3/uL Hgb 14.8 (14.0-18.0) g/dl Hct 48.9 (42.0-52.0) % Plt Count 321 D (160-400) X10*3/uL BMP 05/13/24 08:39 Sodium 146 H Potassium 4.7 Chloride 111 H Carbon Dioxide 21 L BUN 49 H Creatinine 1.03 Calcium 8.9 D Liver Function 05/13/24 Range/Units 08:39 Total Bilirubin 1.6 H (0.0-1.0) mg/dL AST 58 H (5-37) U/L ALT 105 H (0-40) U/L Alkaline Phosphatase 186 H (39-117) U/L Albumin 2.9 L (3.5-5.0) g/dL Microbiology Microbiology Results: Microbiology 04/25/24 22:17 Blood - Venous Blood Culture - Final No growth after 5 days. 04/25/24 22:08 Blood - Venous Blood Culture - Final Coag negative Staphylococcus Assessment and Plan (1) Shock: Status: Acute (2) Morbid obesity: Status: Chronic (3) Small bowel obstruction: Status: Acute (4) Ischemic bowel disease: Status: Acute (5) Acute hypoxemic respiratory failure: Status: Acute (6) Acute encephalopathy: Status: Acute Plan Neuro: Acute encephalopathy possibly due to metabolic encephalopathy from underlying systemic cause including shock On propofol for sedation, as needed fentanyl for analgesia, propofol was switched to Versed due to refractory hypotension Close neurological status monitoring in the ICU every hour Cardiac: Shock: Unclear etiology of shock, tachycardic to 160s, bedside echo showed squeeze okay and no focal wall motion abnormalities On 3 vasopressor support including maximum dose of phenylephrine, maximum dose of Levophed, maximum dose of vasopressin Received 4 L of fluid bolus so far, we will titrate Levophed down 1st given his tachycardia if the blood pressure is improve Respiratory: Acute respiratory failure due to severe refractory shock Currently on ventilator support On PRVC mode FiO2 50%, PEEP [], TV 500, RR 26 Peak pressures and plateau pressures are under the curve Ventilator management bundle with head end elevation, aspiration precaution, chlorhexidine mouthwash, daily awakening trials, daily spontaneous breathing trials PF ratio was around 200, chest x-ray okay GI: Small-bowel obstruction: Status post large segment resection in the past due to ischemia We will hook the NG tube for suction as the chest x-ray showed dilated stomach and dilated bowel loops We will get CTA chest abdomen and pelvis once he is stable enough to go to a CT Renal: Baseline creatinine normal, creatinine today is 1.03 We will closely monitor I's and O's Avoid nephrotoxic medications Heme: Chronic anemia, closely monitor H&H, transfuse for hemoglobin less than 7 grams/deciliter Endocrine: Blood sugars under control Sliding scale insulin as needed Infectious disease: We will send pancultures We will start on empiric Zosyn and vancomycin If the patient becomes stable enough to go to a CT we will get a CTA of chest abdomen and pelvis Musculoskeletal: Decubitus ulcer prevention protocol Lines: Left IJ TLC Right femoral outlined Prophylaxis: Lovenox, pantoprazole Total critical care time spent is over 120 minutes in admitting this critically ill patient to the medical ICU without blood pressures without a saturation, it took a while for us to stabilize him and get a good blood pressure on him in that included multiple fluid boluses, multiple vasopressor support maximized, ventilator management, sedation management, changing sedatives based on the blood pressures, lab review, image review, managing as SVT, coordinating care with different specialties at this time is excluding any procedural time.
[2024-05-13] MEDS: Midazolam HCl/NS 50 MG/50 ML PLAST..BAG IVCONT ×2 (11:49→17:54)
[2024-05-13] MEDS: Digoxin 0.5 MG/2 ML AMPUL 0.25 MG IVPUSH ×2 (11:50→16:57)
[2024-05-13] MEDS: Enoxaparin Sodium 40 MG/0.4 ML SYRINGE SUBCUT (11:51)
[2024-05-13 11:53] LABS: Reflex Lactate? Lactic Acid Added
--- NOTE | 2024-05-13 11:57 | PM.EVENT ---
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 Was called early this am that patient was not feeling well, stating that he felt like he was going to pass out. At bedside patient was awake and alert. EKG ordered showed SVT. Blood pressure was in the 90s systolic. Rapid response was called. received adenosine with no response. unable to obtain blood pressure, attempted cardioversion, remained tachycardic. ultimately the patient was intubated and transferred to the ICU for further care. please see nursing note for complete details re: timeline/med administration. Time Spent With Patient Time: Total time managing care of this patient today ____ minutes.
[2024-05-13] MEDS: Norepinephrine Bitartrate/D5W 8 MG/250 ML PLAST..BAG 207 MG IVCONT (12:14)
[2024-05-13] MEDS: Phenylephrine HCL 20 MG in 0.9 % Sodium Chloride 250 ML 500.77 MG IVCONT (12:17)
[2024-05-13 13:09] LABS: ~Lactic Acid-LAB USE ONLY 8.8 mmol/L (0.5-2.0)
[2024-05-13] MEDS: Phenylephrine HCL 100 MG in 0.9 % Sodium Chloride 250 ML 103.33 MG IVCONT ×5 (13:18→21:53)
[2024-05-13] MEDS: Norepinephrine Bitartrate/NS 32 MG/250 ML PLAST..BAG 51.75 MG IVCONT ×3 (13:24→21:52)
--- NOTE | 2024-05-13 13:24 | PM.CNCAR ---
History of Present Illness History of Present Illness Date of Service: 05/13/24 Requesting physician: Hermilo Reid Consult reason: other (Tachycardia, hypotension.) Chief complaint: SBO Narrative: I was emergently consulted to see this patient at bedside around 08:30. Initially responded by phone. I was called because patient had a rapid response called this morning because of persistent tachycardia and inability to obtain blood pressure. EKG suggestive of narrow complex tachycardia with SVT. He was given adenosine 6 mg followed by another 60 mg and then 12 mg hospitalist team without any response. Patient blood pressure remained critically low. ED physician Dr. Guerrero then present at bedside, by the time he came at bedside patient was intubated and started on norepinephrine drip. Patient remains significantly hypotensive and with persistent narrow complex tachycardia. He had already been shocked at 120 joules. There was no response. Patient was then sedated and paralyzed. Patient remained significantly hypotensive tachycardic and more attempts were made at synchronized cardioversion without any response. Patient's Levophed was gradually increased. Patient was given amiodarone 150 mg IV bolus without any effect. Retrospectively then seems like patient was more than sinus tachycardia/junctional tachycardia with poor response with underlying alternative etiology. Patient has been admitted with small-bowel obstruction being managed conservatively, currently on TPN and getting NG-tube suction. Patient has prior history of ischemic all disease. 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 Patient was then moved to intensive care unit at which time he remained at patient's bedside. Patient had a blood gas performed with venous drawn which showed a pH of 7.11 consistent with severe acidosis. Patient continued to remain hypotensive, Dr. Flores was called on the phone. More vasopressors were added. I then we did bedside echocardiogram to assess for possible pulmonary embolism given patient's prior history of DVT PE and on currently only DVT prophylaxis. Bedside echo was very limited due to patient's body habitus and acute status and inability to be positioned. Showed hyperdynamic LV and RV function. IVC could not be seen and volume status was difficult to assess. Eventually after 1-1/2 hour of critical care time at patient's bedside it was felt the patient might be hypovolemic/septic. Review of Systems Review of Systems: Yes Unobtainable due to mental status PMF Past Medical History Medical History (Updated 05/13/24 @ 11:42 by Fernie Flores MD) Morbid obesity Abdominal pain Guillain-Mcintire syndrome Femur fracture, right DVT (deep venous thrombosis) Pulmonary embolism Surgical History Surgical History History of abdominal surgery (~10/2023) Status post small bowel resection H/O hand surgery Social History Social History Household Members: Family Housing: House Do you presently have visiting nurse or other home services: No ([facility] 21/12) Alcohol intake: current Alcohol intake frequency: a few times a week Comment: wheelchair bound at baseline Patient Tobacco Use Status: Former Tobacco user Tobacco use type: Cigarette Substance Use Type: Marijuana Advance Directives Date on File: 08/06/23 service: No Meds Allergies Allergy/AdvReac Type Severity Reaction Status Date / Time No Known Allergies Allergy Verified 04/25/24 22:07 Active Medications: Current Medications Acetaminophen (Acetaminophen 325 Mg Tablet) 650 mg PO Q6H PRN PRN Reason: Pain, Mild (Pain Scale 1-3), fever or headache Digoxin (Digoxin 0.5 Mg/2 Ml Ampul) 0.25 mg IVPUSH Q6H YOLETTE; Protocol Stop: 05/13/24 18:01 Last Admin: 05/13/24 11:50 Dose: 0.25 mg Enoxaparin Sodium (Enoxaparin Sodium 40 Mg/0.4 Ml Syringe) 40 mg SUBCUT Q24H YOLETTE Last Admin: 05/13/24 11:51 Dose: 40 mg Acetaminophen (Ofirmev) 1,000 mg in 100 mls @ 400 mls/hr IV Q6H PRN PRN Reason: Pain, Severe (Pain Scale 7-10) Last Infusion: 05/12/24 22:26 Dose: Infused Nutrition (Parenteral) (Parenteral Nutrition) 2,040 mls @ 85 mls/hr IV .Q24H YOLETTE; Protocol Stop: 05/13/24 20:59 Last Infusion: 05/13/24 13:23 Dose: 85 mls/hr Sodium Bicarbonate 150 meq/ (Dextrose) 1,000 mls @ 100 mls/hr IV .Q10H YOLETTE Midazolam HCl (Versed) 50 mg in 50 mls @ 2 mls/hr IVCONT .Q24H YOLETTE Last Admin: 05/13/24 11:49 Dose: 2 mg/hr, 2 mls/hr Fentanyl (Sublimaze/Ns) 1,000 mcg in 100 mls @ 0 mls/hr IVCONT .Q0M YOLETTE; Protocol Last Titration: 05/13/24 11:53 Dose: Infused Propofol (Diprivan) 1,000 mg in 100 mls @ 0 mls/hr IVCONT .Q0M YOLETTE; Protocol Last Titration: 05/13/24 09:55 Dose: Infused Norepinephrine Bitartrate (Levophed) 8 mg in 250 mls @ 0 mls/hr IVCONT .Q0M YOLETTE; Protocol Last Titration: 05/13/24 12:23 Dose: 0.96 mcg/kg/min, 198.72 mls/hr Vasopressin (Vasostrict) 20 unit in 100 mls @ 12 mls/hr IVCONT .Q8H20M YOLETTE Last Admin: 05/13/24 09:37 Dose: 0.04 unit/min, 12 mls/hr Phenylephrine HCl 100 mg/ (Sodium Chloride) 260 mls @ 0 mls/hr IVCONT .Q0M YOLETTE; Protocol Last Admin: 05/13/24 13:18 Dose: 6 mcg/kg/min, 103.33 mls/hr Norepinephrine Bitartrate (Levophed) 32 mg in 250 mls @ 0 mls/hr IVCONT .Q0M YOLETTE; Protocol Piperacillin Sod/Tazobactam (Sod 4.5 gm/ Sodium Chloride) 100 mls @ 200 mls/hr IV Q6H YOLETTE Nutrition (Parenteral) (Parenteral Nutrition) 2,040 mls @ 85 mls/hr IV .Q24H YOLETTE; Protocol Stop: 05/14/24 20:59 Vancomycin HCl (Vancomycin/Ns) 2,000 mg in 500 mls @ 250 mls/hr IV ONCE ONE Stop: 05/13/24 14:59 Magnesium Hydroxide (Milk Of Magnesia 30 Ml Oral.Susp) 30 ml PO DAILY PRN PRN Reason: Constipation Melatonin (Melatonin 3 Mg Tablet) 6 mg PO BEDTIME PRN PRN Reason: Insomnia Morphine Sulfate (Morphine Sulfate 2 Mg/Ml Cartridge) 2 mg IVPUSH Q6H PRN; Protocol PRN Reason: Pain, Severe (Pain Scale 7-10) Last Admin: 05/12/24 22:59 Dose: 2 mg Naloxone HCl (Naloxone Hcl 0.4 Mg/Ml Vial) 0.2 mg IVPUSH Q2M PRN PRN Reason: Excessive sedation or RR < 8 Ondansetron HCl (Ondansetron Hcl 4 Mg/2 Ml Vial) 4 mg IVPUSH Q8H PRN PRN Reason: Nausea and Vomiting Last Admin: 05/07/24 19:52 Dose: 4 mg Pantoprazole Sodium (Pantoprazole Sodium 40 Mg/10 Ml Vial) 40 mg IVPUSH BID@0630,1630 [facility] Last Admin: 05/13/24 06:39 Dose: 40 mg Pharmacy Consult (Consult Rx Parenteral Nutrition Ordering) 1 each MISCELLANE DAILY PRN PRN Reason: Consult order Pharmacy Consult (Consult Rx Vancomycin Dosing) 1 each MISCELLANE DAILY PRN PRN Reason: Consult order Sodium Chloride (0.9 % Sodium Chloride Flush 3 Ml Syringe) 3 ml IVFLUSH QSHIFT [facility] Last Admin: 05/13/24 12:07 Dose: Not Given Sodium Chloride (0.9 % Sodium Chloride Flush 10 Ml Syringe) 5 ml IVFLUSH TID [facility] Last Admin: 05/13/24 11:33 Dose: Not Given Home Medications ?Medication ?Instructions ?Recorded ?Confirmed ?Last Taken ?Type rivaroxaban 20 mg tablet (Xarelto) 20 mg PO DAILY@1700 10/18/23 04/26/24 04/24/24 History cyanocobalamin (vitamin B-12) 1,000 mcg PO DAILY 03/06/24 04/26/24 04/24/24 History 1,000 mcg tablet (Vitamin B-12) ferrous sulfate 325 mg (65 mg 325 mg PO DAILY 03/06/24 04/26/24 04/24/24 History iron) tablet folic acid 1 mg tablet 1 mg PO DAILY 03/06/24 04/26/24 04/24/24 History magnesium oxide 400 mg (241.3 mg 800 mg PO BID 03/21/24 04/26/24 04/24/24 History magnesium) tablet Physical Exam Vital Signs: Vital Signs: Last Vital Signs Temp 98.2 F 05/13/24 07:34 Pulse 158 H 05/13/24 13:18 Resp 23 H 05/13/24 10:00 BP 71/35 L 05/13/24 13:18 Pulse Ox 100 05/13/24 10:00 O2 Del Method Mechanical Ventil ation 05/13/24 10:00 FiO2 40 05/13/24 12:03 BMI result Body Mass Index 30.4 Const: General: other (Intubated and on mechanical ventilation) Nutritional Appearance: obese HEENT: Head: Yes normocephalic and Yes atraumatic Neck: Neck: Yes trachea midline and Yes supple Resp: Effort & Inspection: normal respiratory effort Auscultation: clear to auscultation bilaterally Cardio: Rate: tachycardic Heart sounds: S1 normal heart sound present and S2 normal heart sound present GI: Inspection: Yes obesity Auscultation: Absent bowel sounds Skin: General skin exam: no rashes or lesions noted Neuro: General: other (Not evaluated) Objective Labs and Meds 05/13/24 09:52 05/13/24 08:39 Lab results: Laboratory Results - last 24 hr 05/13/24 05/13/24 05/13/24 08:39 08:40 09:52 WBC 9.1 RBC 5.36 Hgb 14.8 Hct 48.9 MCV 91.2 MCH 27.6 MCHC 30.3 L RDW 15.2 Plt Count 321 D MPV 11.5 Immature Gran % (Auto) Cancelled Neut % (Auto) Cancelled Lymph % (Auto) Cancelled [place] % (Auto) Cancelled Eos % (Auto) Cancelled Baso % (Auto) Cancelled Lymph # (Auto) Cancelled [place] # (Auto) Cancelled Eos # (Auto) Cancelled Baso # (Auto) Cancelled Abs Immat Gran (auto) Cancelled Absolute Neuts (auto) Cancelled Absolute Nucleated RBC 0.000 Nucleated RBC % (auto) 0.0 Neutrophils % (Manual) 40 L Band Neutrophils % 33 H Lymphocytes % (Manual) 19 L Atypical Lymphs % (Man) 1 Metamyelocytes % 7 Abs Neuts (Manual) 6.6 Lymphocytes # (Manual) 1.7 Atyp Lymphs # (Manual) 0.1 Metamyelocytes # 0.6 Toxic Vacuolation PRESENT Dohle Bodies PRESENT Platelet Estimate NORMAL Plt Morphology Comment NORMAL RBC Morphology NORMAL O2 Saturation ABG pH at Pt Temp ABG pCO2 at Pt Temp ABG pO2 at Pt Temp ABG HCO3 ABG Base Excess (Actual) VBG pH 7.11 L* VBG pCO2 55 VBG pO2 56 VBG HCO3 18 L VBG O2 Saturation 56.0 VBG Base Excess -11.7 Sodium 146 H Potassium 4.7 Chloride 111 H Carbon Dioxide 21 L Anion Gap 19 BUN 49 H Creatinine 1.03 Estim Creat Clear Calc 113.8 Estimated GFR > 60 POC Glucose 189 H Random Glucose 233 H Lactic Acid 4.7 H* Lactic Acid F/U @ 2Hr Calcium 8.9 D Phosphorus 4.0 Magnesium 2.1 Total Bilirubin 1.6 H AST 58 H ALT 105 H Alkaline Phosphatase 186 H Troponin I High Sens < 2.7 B-Natriuretic Peptide 40 Total Protein 7.3 Albumin 2.9 L 05/13/24 05/13/24 10:05 12:08 WBC RBC Hgb Hct MCV MCH MCHC RDW Plt Count MPV Immature Gran % (Auto) Neut % (Auto) Lymph % (Auto) [place] % (Auto) Eos % (Auto) Baso % (Auto) Lymph # (Auto) [place] # (Auto) Eos # (Auto) Baso # (Auto) Abs Immat Gran (auto) Absolute Neuts (auto) Absolute Nucleated RBC Nucleated RBC % (auto) Neutrophils % (Manual) Band Neutrophils % Lymphocytes % (Manual) Atypical Lymphs % (Man) Metamyelocytes % Abs Neuts (Manual) Lymphocytes # (Manual) Atyp Lymphs # (Manual) Metamyelocytes # Toxic Vacuolation Dohle Bodies Platelet Estimate Plt Morphology Comment RBC Morphology O2 Saturation 95.0 ABG pH at Pt Temp 7.14 L* ABG pCO2 at Pt Temp 40 ABG pO2 at Pt Temp 109 H ABG HCO3 14 L ABG Base Excess (Actual) -14.0 VBG pH VBG pCO2 VBG pO2 VBG HCO3 VBG O2 Saturation VBG Base Excess Sodium Potassium Chloride Carbon Dioxide Anion Gap BUN Creatinine Estim Creat Clear Calc Estimated GFR POC Glucose Random Glucose Lactic Acid Cancelled Lactic Acid F/U @ 2Hr 8.8 H* Calcium Phosphorus Magnesium Total Bilirubin AST ALT Alkaline Phosphatase Troponin I High Sens B-Natriuretic Peptide Total Protein Albumin Assessment and Plan (1) Shock: Status: Acute Patient with shock with narrow complex tachycardia most likely sinus tachycardia as response to underlying shock. Patient remains persistently tachycardic not responsive to any possible therapy. Overall etiology points towards septic shock. Hypovolemia is likely. Continue aggressive hydration. Patient currently under ICU team management. Continue vasopressor therapy to maintain blood pressure. Likelihood of pulmonary embolism is low. Overall prognosis is guarded. Continue supportive care. Continue mechanical ventilation. No obvious cardiac etiology of shock. There was no evidence of pericardial effusion, LV function appears to be preserved as well as RV systolic function appears to be preserved on limited views without any evidence of RV dysfunction suggestive of acute large pulmonary embolism. Will sign of the case. Prognosis is grim. 90 minutes of bedside critical time spent Total time managing care of this patient today: 90 minutes. Procedures Date of Service Date of Service: 05/13/24 Arterial Line Size (Gauge): 20
[2024-05-13] MEDS: Sodium Bicarbonate 8.4% 150 MEQ in Dextrose 5 % 850 ML 100 MEQ IV (13:45)
[2024-05-13] MEDS: Piperacillin Sodium/Tazobactam 4.5 GM in 0.9 % Sodium Chloride 100 ML IV ×3 (13:45→23:45)
[2024-05-13 14:11] LABS: Reflex Lactate? 2 Y
--- NOTE | 2024-05-13 14:13 | PM.EVENT ---
Event Note Date of Service: 05/14/24 Event Note: On ventilator Remains on 3 pressors Still very tachycardic BP still very low Abdomen is soft, seems benign Etiology of SVT uncertain Awaiting imaging studies - pt not hemodynamically stable Chest x-ray does not show free air under the diaphragm Lactate still rising - now 8.8; suspicious for ongoing ischemia no urine output steadily declining prognosis sebastian Long aware Time Spent With Patient Time: Total time managing care of this patient today ____ minutes.
--- NOTE | 2024-05-13 14:33 | PC.NURSE ---
Addendum entered by Giovanni Parry RN 05/14/24 17:11: informed md of pt's increased temp, increase levo and low bp. Addendum entered by Giovanni Parry RN 05/14/24 16:24: md informed of abnormal and critical lab values. md assessed lab value results. Addendum entered by Giovanni Parry RN 05/14/24 10:43: transport was uneventful. no IVP meds were required Addendum entered by Giovanni Parry RN 05/14/24 09:48: Per MD. Ct to be obtained. telephone consent obtained by HCP w/ this RN present. RT, RN, MD and transport will take pt to CT this AM. meds administered as ordered prior to transport. meds obtained from pyxis per md verbal order to bring during transport in case of acute event. Addendum entered by Giovanni Parry RN 05/13/24 19:06: HCP at bedside stating she wants him to be a full code. MD informed. per versed stopped and ketamine started. Addendum entered by Giovanni Parry RN 05/13/24 17:25: Neds declined organ donation d/t severe hypotension Addendum entered by Giovanni Parry RN 05/13/24 16:29: [facility] contacted ; reference number [id number] Addendum entered by Giovanni Parry RN 05/13/24 15:31: informed md of critical lactate Addendum entered by Giovanni Parry RN 05/13/24 15:25: informed MD of pt's elevated LFT's. per hold tylenol and start cooling blanket. Addendum entered by Giovanni Parry RN 05/13/24 15:01: md informed of pt's temp Original Note: This RN assumed care of this pt around 1100. Vasquez was placed per md verbal order. meds administered as ordered. phenyl and levo drips changed to higher concentrations. informed md multiple times throughout the shift staff are unable to obtain an O2 sat on pt in multiple locations and BP remains low SBP 50-80s despite medical interventions. A line dressing change performed. family was updated by MD. Pt's listed contact was present and updated by .
[2024-05-13] MEDS: Hydrocortisone Sod Succ/PF 100 MG VIAL IVPUSH ×2 (14:41→23:10)
[2024-05-13] MEDS: vancomycin/NS 2,000 MG/500 ML PLAST..BAG 250 MG IV (15:00)
[2024-05-13 15:15] LABS: Anion Gap 23 (12-20)
[2024-05-13 15:18] LABS: Albumin Level 1.9 g/dL (3.5-5.0); Aspartate Amino Transferase 79 U/L (5-37); Bilirubin Total 1.9 mg/dL (0.0-1.0); Blood Urea Nitrogen 52 mg/dL (9-16); Calcium 7.3 mg/dL (8.4-10.2); Carbon Dioxide 15 mmol/L (22-29); Chloride 110 mmol/L (96-108); Creatinine Clr Calc Pharmacy 69.7; Estimated Glomerular Filt Rate 43; Glucose Random 289 mg/dL (60-115); Potassium 4.1 mmol/L (3.3-5.1); Sodium 144 mmol/L (135-145); Total Protein 4.9 g/dL (6.5-8.0)
[2024-05-13 15:31] LABS: ~Lactic Acid-LAB USE ONLY 10.4 mmol/L (0.5-2.0)
[2024-05-13 15:37] LABS: Alanine Aminotransferase 92 U/L (0-40); Alkaline Phosphatase 161 U/L (39-117)
[2024-05-13 16:02] LABS: ABG Base Excess -12.5 mmol/L; ABG HCO3 12 mmol/L (22-26); ABG pCO2 27 mmHg (32-45); ABG pH 7.26 (7.35-7.45); ABG pO2 184 mmHg (83-108)
[2024-05-13] MEDS: Fluconazole in NaCl,Iso-Osm 200 MG/100 ML PIGGYBACK 100 MG IV (16:57)
[2024-05-13] MEDS: fentaNYL citrate/NS 1,000 MCG/100 ML PLAST..BAG 15 MCG IVCONT (17:36)
--- NOTE | 2024-05-13 17:45 | W.MHC.ACPN ---
Advanced Care Planning Note Advanced Care Planning Note Time spent (in minutes): 15 Narrative: Had very detailed discussion about patient's current critical condition with his healthcare proxy Mercedes Michael ([phone]); explained her that the patient is on 3 vasopressor drip and still his blood pressures are very low and not survivable, and this is affecting his other organs which led to slowing down of his kidneys and elevation of the liver enzymes. His chest x-ray did not show any abnormalities, his echo showed normal LV systolic function, RV normal in size possibly ruling out pulmonary embolism so the possible etiology is in his abdomen. It is most likely that he has another ischemic bowel episode but given his very poor blood pressures he would not be able to go to operating room for a surgery so his condition is grave and futile. We could not even move him in his bed very fragile condition with refractory hypotension. Overall his prognosis is very poor and he is not going to survive next 24 hours. She stated her understanding and I offered her making him a DNR knowing that he is already receiving the maximum support and chest compressions would not be off any kind of help. She agrees to make him a DNR so I will changes code status. Problems Discussed (1) Small bowel obstruction:
[2024-05-13 18:22] LABS: ABG Base Excess -13.3 mmol/L; ABG HCO3 12 mmol/L (22-26); ABG pCO2 26 mmHg (32-45); ABG pH 7.26 (7.35-7.45); ABG pO2 97 mmHg (83-108)
--- NOTE | 2024-05-13 18:24 | PC.NURSE ---
Assumed care of the pt approximately?from 9:30am? to 11:00am. Pt transferred?to ICU approximately?at 9:30 levophed infusing at 0.3mcg/kg/min on arrival. Unable to scan levophed and phelyneprine due to technical?difficulties. Pharmacy and brine supervisor contacted. Central line and arterial line placed.? Titrations as followed: 9:35 Levophed increased 0.5mcg/kg/min per MD? 9:40 Levophed increased 1mcg/kg/min per MD? 9:50 Phenylephrine?initiated at 1mcg/kg/min per MD 10:35 Phenylephrine increase? to 2.0mcg/kg/min Per Md? 10:40 Phenylephrine increase? ?to? 3.0mcg/kg/ Per MD? 10:45 Phenylephrine increase to? ? 4.0 mcg/kg/min Per MD? 10:50 Phenylephrine increase to 6 mcg/kg/min? Per MD?
--- NOTE | 2024-05-13 18:27 | ECG_ITS ---
Test Reason : TACHY Blood Pressure : / mmHG Vent. Rate : 155 BPM Atrial Rate : 000 BPM P-R Int : 000 ms QRS Dur : 086 ms QT Int : 300 ms P-R-T Axes : 000 -14 076 degrees QTc Int : 482 ms Sinus tachycardia versus Supraventricular tachycardia When compared with ECG of 13-MAY-2024 08:17, No significant change was found Referred By: Natasha Gross Electronically Signed By:WILLIAM LU MD
[2024-05-13] MEDS: Ketamine HCl 500 MG in 0.9 % Sodium Chloride 250 ML 16.89 MG IVCONT (18:47)
[2024-05-13 20:28] LABS: ABG Refer to POC result
[2024-05-13 20:28] LABS: ABG Refer to POC result
[2024-05-13 20:34] LABS: ABG Base Excess -9.3 mmol/L; ABG HCO3 14 mmol/L (22-26); ABG pCO2 25 mmHg (32-45); ABG pH 7.35 (7.35-7.45); ABG pO2 110 mmHg (83-108)
[2024-05-13 20:44] LABS: Mean Corpuscular Hemoglobin 27.6 pg (27.0-33.0); Mean Platelet Volume 11.9 fL (9.4-12.4); NRBC Pct Auto 0.3 /100WBC (0.0-0.2); Platelet Count 185 X10*3/uL (160-400); Red Blood Count 4.35 X10*6/uL (4.60-5.80); Red Cell Distribution Width 15.5 % (11.0-16.0)
[2024-05-13 20:53] LABS: Alanine Aminotransferase 1113 U/L (0-40); Albumin Level 1.7 g/dL (3.5-5.0); Alkaline Phosphatase 136 U/L (39-117); Anion Gap 24 (12-20); Aspartate Amino Transferase 997 U/L (5-37); Bilirubin Total 1.5 mg/dL (0.0-1.0); Blood Urea Nitrogen 55 mg/dL (9-16); Calcium 6.7 mg/dL (8.4-10.2); Carbon Dioxide 15 mmol/L (22-29); Chloride 110 mmol/L (96-108); Creatinine Clr Calc Pharmacy 55.8; Estimated Glomerular Filt Rate 33; Glucose Random 209 mg/dL (60-115); Potassium 4.2 mmol/L (3.3-5.1); Sodium 145 mmol/L (135-145); Total Protein 4.5 g/dL (6.5-8.0)
[2024-05-13 21:11] LABS: WBC ABN SCTR FOR CBC 1
[2024-05-13] MEDS: Albumin Human 25 % 100 ML IV ×3 (21:15→23:15)
[2024-05-13 21:25] LABS: Atypical Lymphs Percent Manual 1 % (0-6); Band Neutrophils Percent 32 % (3-5); Lymphocytes Percent Manual 10 % (20-40); Metamyelocytes Percent 9 %; Monocytes Percent Manual 5 % (2-11); Myelocytes Percent 7 %; Neutrophils Percent Manual 36 % (45-73); Nucleated Red Blood Cells 1 /100WBC (0-0)
[2024-05-13 21:31] LABS: Platelet Estimate NORMAL (NORMAL); Platelet Morphology Comment NORMAL; RBC Morphology NORMAL
[2024-05-13 21:32] LABS: Atypical Lymph Absolute Manual 0.2 x10*3/uL; Dohle Bodies PRESENT; Lymphocytes Absolute Manual 2.4 X10*3/uL (1.2-4.9); Metamyelocytes Absolute 2.2 X10*3/uL; Monocytes Absolute Manual 1.2 X10*3/uL (0.1-1.2); Myelocytes Absolute 1.7 X10*/uL; Neutrophils Absolute Manual 16.3 X10*3/uL (2.0-8.3); Toxic Vacuolation PRESENT; White Blood Count 23.9 X10*3/uL (4.8-10.8)
[2024-05-13] MEDS: Parenteral Nutrition 2,040 ML 85 ML IV (21:39)
[2024-05-13] MEDS: 0.9 % Sodium Chloride Flush 10 ML SYRINGE 5 ML IVFLUSH (21:46)
[2024-05-13 22:16] LABS: ABG Refer to POC result
[2024-05-13 23:37] LABS: ABG Refer to POC result
[2024-05-13] MEDS: Sodium Bicarbonate 8.4% 150 MEQ in Dextrose 5 % 850 ML IV (23:41)
[2024-05-14] VITALS (61 sets, daily range): BP systolic 81–152; BP diastolic 33–84; PULSE 65–121; RESP 11–38; TEMP -11.8–38.7; O2SAT 91–100; BMI 34.9
[2024-05-14] MEDS: Phenylephrine HCL 100 MG in 0.9 % Sodium Chloride 250 ML 103.33 MG IVCONT ×10 (00:14→22:12)
[2024-05-14] MEDS: Albumin Human 25 % 100 ML IV (00:19)
[2024-05-14] MEDS: 0.9 % Sodium Chloride Flush 3 ML SYRINGE IVFLUSH ×2 (00:20→23:26)
[2024-05-14] MEDS: fentaNYL citrate/NS 1,000 MCG/100 ML PLAST..BAG 10 MCG IVCONT (01:56)
[2024-05-14] MEDS: Norepinephrine Bitartrate/NS 32 MG/250 ML PLAST..BAG 51.75 MG IVCONT ×4 (02:18→22:30)
[2024-05-14] MEDS: vancomycin HCL 1,000 MG in 0.9 % Sodium Chloride 250 ML 270 MG IV (02:48)
[2024-05-14] MEDS: Ketamine HCl 500 MG in 0.9 % Sodium Chloride 250 ML 28.15 MG IVCONT ×3 (02:58→21:25)
[2024-05-14 04:47] LABS: ABG Base Excess -18.4 mmol/L; ABG HCO3 8 mmol/L (22-26); ABG pCO2 21 mmHg (32-45); ABG pH 7.17 (7.35-7.45); ABG pO2 174 mmHg (83-108)
[2024-05-14 04:55] LABS: ABG Refer to POC result
[2024-05-14 05:23] LABS: Hemoglobin 10.5 g/dl (14.0-18.0); Mean Corpuscular Hemoglobin 27.9 pg (27.0-33.0); Mean Corpuscular Volume 93.1 fL (80.0-98.0); Mean Platelet Volume 12.5 fL (9.4-12.4); NRBC Pct Auto 0.6 /100WBC (0.0-0.2); Platelet Count 128 X10*3/uL (160-400); Red Blood Count 3.76 X10*6/uL (4.60-5.80); Red Cell Distribution Width 15.9 % (11.0-16.0); WBC ABN SCTR FOR CBC 1
[2024-05-14 05:39] LABS: Anion Gap 34 (12-20); Aspartate Amino Transferase 3394 U/L (5-37); Bilirubin Total 1.6 mg/dL (0.0-1.0); Blood Urea Nitrogen 66 mg/dL (9-16); Calcium 6.8 mg/dL (8.4-10.2); Chloride 108 mmol/L (96-108); Creatinine Clr Calc Pharmacy 46.9; Estimated Glomerular Filt Rate 27; Glucose Random 162 mg/dL (60-115); Magnesium 1.8 mg/dL (1.6-2.6); Phosphorus 5.1 mg/dL (2.7-4.5); Potassium 4.8 mmol/L (3.3-5.1); Sodium 145 mmol/L (135-145); Total Protein 5.5 g/dL (6.5-8.0)
[2024-05-14 05:42] LABS: Carbon Dioxide 8 mmol/L (22-29)
[2024-05-14] MEDS: Pantoprazole Sodium 40 MG/10 ML VIAL IVPUSH (05:44)
[2024-05-14] MEDS: Piperacillin Sodium/Tazobactam 4.5 GM in 0.9 % Sodium Chloride 100 ML IV ×4 (05:46→23:25)
[2024-05-14 05:54] LABS: Alkaline Phosphatase 107 U/L (39-117)
[2024-05-14 06:09] LABS: Atypical Lymph Absolute Manual 0.7 x10*3/uL; Atypical Lymphs Percent Manual 2 % (0-6); Band Neutrophils Percent 17 % (3-5); Lymphocytes Absolute Manual 8.6 X10*3/uL (1.2-4.9); Lymphocytes Percent Manual 24 % (20-40); Metamyelocytes Absolute 4.3 X10*3/uL; Metamyelocytes Percent 12 %; Monocytes Absolute Manual 3.6 X10*3/uL (0.1-1.2); Monocytes Percent Manual 10 % (2-11); Myelocytes Absolute 1.8 X10*/uL; Myelocytes Percent 5 %; Neutrophils Absolute Manual 16.9 X10*3/uL (2.0-8.3); Neutrophils Percent Manual 30 % (45-73); Nucleated Red Blood Cells 1 /100WBC (0-0); RBC Morphology NOTED
[2024-05-14 06:10] LABS: Acanthocytes 1+ (0-2) /OIF; Ovalocytes 1+ (5-14) /OIF; Platelet Estimate NORMAL (NORMAL); Platelet Morphology Comment NORMAL
[2024-05-14 06:11] LABS: Burr Cells 1+ (0-2) /OIF; Polychromasia 1+ (0-2) /OIF; Schistocytes 1+ (0-2) /OIF; Tear Drop Cells 1+ (0-2) /OIF; Toxic Granulation PRESENT; Toxic Vacuolation PRESENT
[2024-05-14 06:12] LABS: Dohle Bodies PRESENT
[2024-05-14] MEDS: Hydrocortisone Sod Succ/PF 100 MG VIAL IVPUSH ×3 (06:19→22:38)
[2024-05-14] MEDS: Albumin Human 25 % 100 ML 133.33 ML IV ×2 (06:19→07:35)
[2024-05-14] MEDS: Vasopressin 20 UNIT/100 ML INFUS..BTL 12 UNIT IVCONT ×3 (06:29→21:28)
[2024-05-14 06:34] LABS: Alanine Aminotransferase 2444 U/L (0-40)
[2024-05-14] MEDS: Enoxaparin Sodium 40 MG/0.4 ML SYRINGE SUBCUT (07:35)
--- NOTE | 2024-05-14 08:43 | ECG_ITS ---
Test Reason : CK RHYTHM Blood Pressure : / mmHG Vent. Rate : 109 BPM Atrial Rate : 000 BPM P-R Int : 000 ms QRS Dur : 120 ms QT Int : 370 ms P-R-T Axes : 000 027 052 degrees QTc Int : 498 ms Junctional rhythm Non-specific intra-ventricular conduction delay Borderline ECG When compared with ECG of 13-MAY-2024 08:18, Non-specific intra-ventricular conduction block is now Present Referred By: Fernie Flores Electronically Signed By:WILLIAM LU MD
--- NOTE | 2024-05-14 08:44 | ECG_ITS ---
Test Reason : CK RHYTHM Blood Pressure : / mmHG Vent. Rate : 109 BPM Atrial Rate : 000 BPM P-R Int : 000 ms QRS Dur : 118 ms QT Int : 358 ms P-R-T Axes : 000 025 051 degrees QTc Int : 482 ms Accelerated Junctional rhythm Non-specific intra-ventricular conduction delay Abnormal ECG When compared with ECG of 14-MAY-2024 08:43, No significant changes seen Referred By: Fernie Floers Electronically Signed By:WILLIAM LU MD
[2024-05-14] MEDS: fentaNYL citrate/NS 1,000 MCG/100 ML PLAST..BAG 12.5 MCG IVCONT ×2 (09:07→16:39)
[2024-05-14] MEDS: Sodium Bicarbonate 8.4% 150 MEQ in Dextrose 5 % 850 ML 100 MEQ IV (09:13)
--- NOTE | 2024-05-14 09:42 | PM.PNGS ---
Subjective Subjective Date of Service: 05/14/24 Interval history: critically ill requiring multiple pressors vent dependent Physical Exam Vital Signs: Vital Signs: Last Vital Signs Temp 99.3 F 05/14/24 07:00 Pulse 109 H 05/14/24 09:04 Resp 37 H 05/14/24 07:00 BP 128/57 L 05/14/24 09:04 Pulse Ox 91 L 05/14/24 07:00 O2 Del Method Mechanical Ventil ation 05/14/24 07:00 FiO2 50 05/14/24 07:58 BMI result Body Mass Index 34.9 Const: Other: on vent, with air hunger Resp: Other: gasping on ventilator Cardio: Rate: tachycardic GI: Palpation (GI): Soft to palpation and not firm Objective Data Active Medications Acetaminophen (Acetaminophen 325 Mg Tablet) 650 mg PO Q6H PRN PRN Reason: Pain, Mild (Pain Scale 1-3), fever or headache Enoxaparin Sodium (Enoxaparin Sodium 40 Mg/0.4 Ml Syringe) 40 mg SUBCUT Q24H [facility] Last Admin: 05/14/24 07:35 Dose: 40 mg Documented By: TEJA Hydrocortisone Sodium Succinate (Hydrocortisone Sod Succ/Pf 100 Mg Vial) 100 mg IVPUSH Q8H [facility]LETT[facility] Last Admin: 05/14/24 06:19 Dose: 100 mg Documented By: NAUMOC Sodium Bicarbonate 150 meq/ (Dextrose) 1,000 mls @ 100 mls/hr IV .Q10H [facility] Last Admin: 05/14/24 09:13 Dose: 100 mls/hr Documented By: TEJA Midazolam HCl (Versed) 50 mg in 50 mls @ 2 mls/hr IVCONT .Q24H [facility] Last Infusion: 05/13/24 18:52 Dose: 0 mg/hr, 0 mls/hr Documented By: TEJA Fentanyl (Sublimaze/Ns) 1,000 mcg in 100 mls @ 0 mls/hr IVCONT .Q0M [facility]; Protocol Last Admin: 05/14/24 09:07 Dose: 125 mcg/hr, 12.5 mls/hr Documented By: TEJA Propofol (Diprivan) 1,000 mg in 100 mls @ 0 mls/hr IVCONT .Q0M [facility]; Protocol Last Titration: 05/13/24 09:55 Dose: Infused Documented By: RAYMOND Vasopressin (Vasostrict) 20 unit in 100 mls @ 12 mls/hr IVCONT .Q8H20M [facility] Last Admin: 05/14/24 06:29 Dose: 0.04 unit/min, 12 mls/hr Documented By: CEFERINO Phenylephrine HCl 100 mg/ (Sodium Chloride) 260 mls @ 0 mls/hr IVCONT .Q0M [facility]; Protocol Last Admin: 05/14/24 09:00 Dose: 6 mcg/kg/min, 103.33 mls/hr Documented By: TEJA Co-signed By: RAYMOND Norepinephrine Bitartrate (Levophed) 32 mg in 250 mls @ 0 mls/hr IVCONT .Q0M [facility]; Protocol Last Titration: 05/14/24 09:04 Dose: 0.96 mcg/kg/min, 49.68 mls/hr Documented By: TEJA Piperacillin Sod/Tazobactam (Sod 4.5 gm/ Sodium Chloride) 100 mls @ 200 mls/hr IV Q6H [facility] Last Infusion: 05/14/24 06:16 Dose: Infused Documented By: CEFERINO Nutrition (Parenteral) (Parenteral Nutrition) 2,040 mls @ 85 mls/hr IV .Q24H [facility]; Protocol Stop: 05/14/24 20:59 Last Admin: 05/13/24 21:39 Dose: 85 mls/hr Documented By: CEFERINO Vancomycin HCl 1,000 mg/ (Sodium Chloride) 270 mls @ 270 mls/hr IV Q12H [facility] Last Infusion: 05/14/24 03:58 Dose: Infused Documented By: CEFERINO Fluconazole (Diflucan) 200 mg in 100 mls @ 100 mls/hr IV Q24H [facility] Last Infusion: 05/13/24 18:02 Dose: Infused Documented By: TEJA Ketamine HCl 500 mg/ Sodium (Chloride) 255 mls @ 28.152 mls/hr IVCONT .Q9H4M [facility] Last Admin: 05/14/24 02:58 Dose: 0.5 mg/kg/hr, 28.15 mls/hr Documented By: CEFERINO Magnesium Hydroxide (Milk Of Magnesia 30 Ml Oral.Susp) 30 ml PO DAILY PRN PRN Reason: Constipation Melatonin (Melatonin 3 Mg Tablet) 6 mg PO BEDTIME PRN PRN Reason: Insomnia Morphine Sulfate (Morphine Sulfate 2 Mg/Ml Cartridge) 2 mg IVPUSH Q6H PRN; Protocol PRN Reason: Pain, Severe (Pain Scale 7-10) Last Admin: 05/12/24 22:59 Dose: 2 mg Documented By: ИВАН Naloxone HCl (Naloxone Hcl 0.4 Mg/Ml Vial) 0.2 mg IVPUSH Q2M PRN PRN Reason: Excessive sedation or RR < 8 Ondansetron HCl (Ondansetron Hcl 4 Mg/2 Ml Vial) 4 mg IVPUSH Q8H PRN PRN Reason: Nausea and Vomiting Last Admin: 05/07/24 19:52 Dose: 4 mg Documented By: ISAAC Pharmacy Consult (Consult Rx Parenteral Nutrition Ordering) 1 each MISCELLANE DAILY PRN PRN Reason: Consult order Pharmacy Consult (Consult Rx Vancomycin Dosing) 1 each MISCELLANE DAILY PRN PRN Reason: Consult order Sodium Bicarbonate (Sodium Bicarbonate 8.4% 50 Meq/50 Ml Syringe) 150 meq IVPUSH ONCE ONE Stop: 05/14/24 09:41 Sodium Chloride (0.9 % Sodium Chloride Flush 3 Ml Syringe) 3 ml IVFLUSH QSHIFT [facility] Last Admin: 05/14/24 07:09 Dose: Not Given Documented By: TEJA Non-Admin Reason: IV Running Sodium Chloride (0.9 % Sodium Chloride Flush 10 Ml Syringe) 5 ml IVFLUSH TID [facility] Last Admin: 05/14/24 07:09 Dose: Not Given Documented By: TEJA Non-Admin Reason: IV Running Tetrahydrozoline HCl (Tetrahydrozoline Hcl 0.05% Oph 15 Ml Drpbtl) 1 drop EYE-BOTH QID PRN PRN Reason: Dry eyes Labs 05/14/24 13:01 05/14/24 13:01 Labs: Laboratory Results - last 24 hr 05/13/24 05/13/24 05/13/24 09:52 10:05 12:08 MCV 91.2 MCH 27.6 MCHC 30.3 L RDW 15.2 Plt Count 321 D MPV 11.5 Immature Gran % (Auto) Cancelled Neut % (Auto) Cancelled Lymph % (Auto) Cancelled [place] % (Auto) Cancelled Eos % (Auto) Cancelled Baso % (Auto) Cancelled Lymph # (Auto) Cancelled [place] # (Auto) Cancelled Eos # (Auto) Cancelled Baso # (Auto) Cancelled Abs Immat Gran (auto) Cancelled Absolute Neuts (auto) Cancelled Absolute Nucleated RBC 0.000 Nucleated RBC % (auto) 0.0 Neutrophils % (Manual) 40 L Band Neutrophils % 33 H Lymphocytes % (Manual) 19 L Atypical Lymphs % (Man) 1 Monocytes % (Manual) Metamyelocytes % 7 Myelocytes % Abs Neuts (Manual) 6.6 Lymphocytes # (Manual) 1.7 Atyp Lymphs # (Manual) 0.1 Monocytes # (Manual) Metamyelocytes # 0.6 Myelocytes # Nucleated RBCs Toxic Granulation Toxic Vacuolation PRESENT Dohle Bodies PRESENT Platelet Estimate NORMAL Plt Morphology Comment NORMAL RBC Morphology NORMAL Polychromasia Tear Drop Cells Ovalocytes [place] Cells Acanthocytes (Spur) Schistocytes O2 Saturation 95.0 ABG pH at Pt Temp 7.14 L* ABG pCO2 at Pt Temp 40 ABG pO2 at Pt Temp 109 H ABG HCO3 14 L ABG Base Excess (Actual) -14.0 VBG pH 7.11 L* VBG pCO2 55 VBG pO2 56 VBG HCO3 18 L VBG O2 Saturation 56.0 VBG Base Excess -11.7 Anion Gap Estim Creat Clear Calc Estimated GFR Random Glucose Lactic Acid 4.7 H* Cancelled Lactic Acid F/U @ 2Hr 8.8 H* Lactic Acid F/U @ 4Hr Calcium Phosphorus Magnesium Total Bilirubin AST ALT Alkaline Phosphatase Total Protein Albumin 05/13/24 05/13/24 05/13/24 14:57 15:52 18:11 MCV MCH MCHC RDW Plt Count MPV Immature Gran % (Auto) Neut % (Auto) Lymph % (Auto) [place] % (Auto) Eos % (Auto) Baso % (Auto) Lymph # (Auto) [place] # (Auto) Eos # (Auto) Baso # (Auto) Abs Immat Gran (auto) Absolute Neuts (auto) Absolute Nucleated RBC Nucleated RBC % (auto) Neutrophils % (Manual) Band Neutrophils % Lymphocytes % (Manual) Atypical Lymphs % (Man) Monocytes % (Manual) Metamyelocytes % Myelocytes % Abs Neuts (Manual) Lymphocytes # (Manual) Atyp Lymphs # (Manual) Monocytes # (Manual) Metamyelocytes # Myelocytes # Nucleated RBCs Toxic Granulation Toxic Vacuolation Dohle Bodies Platelet Estimate Plt Morphology Comment RBC Morphology Polychromasia Tear Drop Cells Ovalocytes [place] Cells Acanthocytes (Spur) Schistocytes O2 Saturation Not Reportable Not Reportable ABG pH at Pt Temp 7.26 L 7.26 L ABG pCO2 at Pt Temp 27 L 26 L ABG pO2 at Pt Temp 184 H 97 ABG HCO3 12 L 12 L ABG Base Excess (Actual) -12.5 -13.3 VBG pH VBG pCO2 VBG pO2 VBG HCO3 VBG O2 Saturation VBG Base Excess Anion Gap 23 H Estim Creat Clear Calc 69.7 Estimated GFR 43 Random Glucose 289 H Lactic Acid Lactic Acid F/U @ 2Hr Lactic Acid F/U @ 4Hr 10.4 H* Calcium 7.3 L D Phosphorus Magnesium Total Bilirubin 1.9 H AST 79 H ALT 92 H Alkaline Phosphatase 161 H Total Protein 4.9 L Albumin 1.9 L 05/13/24 05/13/24 05/14/24 20:22 20:32 04:34 MCV 92.0 MCH 27.6 MCHC 30.0 L RDW 15.5 Plt Count 185 D MPV 11.9 Immature Gran % (Auto) Cancelled Neut % (Auto) Cancelled Lymph % (Auto) Cancelled [place] % (Auto) Cancelled Eos % (Auto) Cancelled Baso % (Auto) Cancelled Lymph # (Auto) Cancelled [place] # (Auto) Cancelled Eos # (Auto) Cancelled Baso # (Auto) Cancelled Abs Immat Gran (auto) Cancelled Absolute Neuts (auto) Cancelled Absolute Nucleated RBC 0.070 H Nucleated RBC % (auto) 0.3 H Neutrophils % (Manual) 36 L Band Neutrophils % 32 H Lymphocytes % (Manual) 10 L Atypical Lymphs % (Man) 1 Monocytes % (Manual) 5 Metamyelocytes % 9 Myelocytes % 7 Abs Neuts (Manual) 16.3 H Lymphocytes # (Manual) 2.4 Atyp Lymphs # (Manual) 0.2 Monocytes # (Manual) 1.2 Metamyelocytes # 2.2 Myelocytes # 1.7 Nucleated RBCs 1 H Toxic Granulation Toxic Vacuolation PRESENT Dohle Bodies PRESENT Platelet Estimate NORMAL Plt Morphology Comment NORMAL RBC Morphology NORMAL Polychromasia Tear Drop Cells Ovalocytes [place] Cells Acanthocytes (Spur) Schistocytes O2 Saturation Not Reportable Not Reportable ABG pH at Pt Temp 7.35 7.17 L* ABG pCO2 at Pt Temp 25 L 21 L ABG pO2 at Pt Temp 110 H 174 H ABG HCO3 14 L 8 L ABG Base Excess (Actual) -9.3 -18.4 VBG pH VBG pCO2 VBG pO2 VBG HCO3 VBG O2 Saturation VBG Base Excess Anion Gap 24 H Estim Creat Clear Calc 55.8 Estimated GFR 33 Random Glucose 209 H Lactic Acid Lactic Acid F/U @ 2Hr Lactic Acid F/U @ 4Hr Calcium 6.7 L D Phosphorus Magnesium Total Bilirubin 1.5 H AST 997 H ALT 1113 H Alkaline Phosphatase 136 H Total Protein 4.5 L Albumin 1.7 L 05/14/24 04:41 MCV 93.1 MCH 27.9 MCHC 30.0 L RDW 15.9 Plt Count 128 L D MPV 12.5 H Immature Gran % (Auto) Cancelled Neut % (Auto) Cancelled Lymph % (Auto) Cancelled [place] % (Auto) Cancelled Eos % (Auto) Cancelled Baso % (Auto) Cancelled Lymph # (Auto) Cancelled [place] # (Auto) Cancelled Eos # (Auto) Cancelled Baso # (Auto) Cancelled Abs Immat Gran (auto) Cancelled Absolute Neuts (auto) Cancelled Absolute Nucleated RBC 0.220 H Nucleated RBC % (auto) 0.6 H Neutrophils % (Manual) 30 L Band Neutrophils % 17 H Lymphocytes % (Manual) 24 Atypical Lymphs % (Man) 2 Monocytes % (Manual) 10 Metamyelocytes % 12 Myelocytes % 5 Abs Neuts (Manual) 16.9 H Lymphocytes # (Manual) 8.6 H Atyp Lymphs # (Manual) 0.7 Monocytes # (Manual) 3.6 H Metamyelocytes # 4.3 Myelocytes # 1.8 Nucleated RBCs 1 H Toxic Granulation PRESENT Toxic Vacuolation PRESENT Dohle Bodies PRESENT Platelet Estimate NORMAL Plt Morphology Comment NORMAL RBC Morphology NOTED Polychromasia 1+ (0-2) Tear Drop Cells 1+ (0-2) Ovalocytes 1+ (5-14) [place] Cells 1+ (0-2) Acanthocytes (Spur) 1+ (0-2) Schistocytes 1+ (0-2) O2 Saturation ABG pH at Pt Temp ABG pCO2 at Pt Temp ABG pO2 at Pt Temp ABG HCO3 ABG Base Excess (Actual) VBG pH VBG pCO2 VBG pO2 VBG HCO3 VBG O2 Saturation VBG Base Excess Anion Gap 34 H Estim Creat Clear Calc 46.9 Estimated GFR 27 Random Glucose 162 H Lactic Acid Lactic Acid F/U @ 2Hr Lactic Acid F/U @ 4Hr Calcium 6.8 L Phosphorus 5.1 H Magnesium 1.8 Total Bilirubin 1.6 H AST 3394 H ALT 2444 H Alkaline Phosphatase 107 Total Protein 5.5 L Albumin 3.0 L Procedures Date of Service Date of Service: 05/14/24 Arterial Line Size (Gauge): 20 Progress Note: A&P Assessment and plan (1) Acute hypoxemic respiratory failure: Status: Acute Assessment and Plan: extremely acidotic multiorgan failure LFTs worsening some UO abd soft etiology uncertain - likey to have ischemia of bowel, from severe low flow state or thromboembolic phenomena not a surgical candidate prognosis grim Prolonged and severe acidosis unlikely to be survivable HCP Mercedes aware - she had him placed DNR, but Mathieu's daughter in [place] apparently had wanted full code Time Spent With Patient Time: Total time managing care of this patient today ____ minutes. Quality Stroke Does the patient have a stroke diagnosis?: No VTE Prior VTE?: Yes VTE Risk Level:: Medical - moderate - high VTE Device Contraindication: N/A - Device Ordered VTE Drug Contraindication: Treatment Not Indicated
[2024-05-14] MEDS: Sodium Bicarbonate 8.4% 50 MEQ/50 ML SYRINGE 150 MEQ IVPUSH (09:52)
[2024-05-14] MEDS: Norepinephrine Bitartrate/NS 32 MG/250 ML PLAST..BAG 48.65 MG IVCONT (11:36)
--- NOTE | 2024-05-14 12:24 | PM.CCN ---
Critical Care Event Note Summary Date of Service: 05/14/24 Code activated: No Narrative: This case had a high probability of a clinically significant, sudden, or life threatening deterioration of this patient's condition which required my full and direct attention, intervention and personal management. Critical Care Time (minutes): 20 Comment: Patient's blood pressures are slightly better today when compared to yesterday still remains on 3 vasopressor support but stable enough to go to CT. Called the patient's healthcare proxy Mercedes and explained her the following: Patient is on refractory shock needing 3 vasopressor support but we are not unsure of the etiology of the shock. We know that his heart systolic and diastolic functions are okay, right ventricle looks okay possibly ruling out a pulmonary embolism. His source for shock is possibly in his abdomen but we are unclear about the etiology. To know the etiology so that we can reverse the pathology we would need to give him contrast along with the CT scan. But because of his shock he has multiple organ failure including elevated LFTs and also an acute kidney injury but keeping the contrast in the scenario can worsen his acute kidney injury. But CT scan without the contrast would not help us find the cause of the shock, so in this case finding the cause of shock is more important so that possibly we can fix the etiology. Even without the CT contrast it is more likely that the patient would continued to have worsening renal failure due to shock and as a part of multiorgan failure. Overall given his complex clinical scenario the benefits of giving him contrast would overweigh the risk off contrast. Mercedes agrees to this and consents to keep the contrast to the patient knowing the risk of renal failure and possibly needing dialysis.
--- NOTE | 2024-05-14 12:52 | PM.CCPN ---
Subjective Subjective Date of Service: 05/14/24 Critical Care Time (minutes): 60 Comment: Continues to be critically ill, on maximum dose of 3 vasopressor drip support but the blood pressures are slightly better today. Yesterday for the whole day his blood pressures remained in 60-70 systolics, today it is staying above 100 so we could move him to CT and get day CT scan. Still remains on ventilator support, worsening transaminitis and renal function Physical Exam Vital Signs: Vital Signs: Last Vital Signs Temp 99.7 F 05/14/24 12:00 Pulse 111 H 05/14/24 12:00 Resp 38 H 05/14/24 12:00 BP 116/50 L 05/14/24 12:00 Pulse Ox 96 05/14/24 10:00 O2 Del Method Mechanical Ventil ation 05/14/24 11:00 FiO2 50 05/14/24 12:00 BMI result Body Mass Index 34.9 General: He is in acute distress, ill appearing and tired appearing Nutritional Appearance: Morbidly obese, lying in the bed Eyes: appearance normal, both eyes and all related structures; Alignment and Position: alignment normal and position normal Neck: No lymphadenopathy, no thyromegaly Resp: bilateral air entry equal, distant breath sounds due to obesity Cardio: Regular rate, regular rhythm; Heart sounds: S1 normal heart sound present and S2 normal heart sound present GI: More distended today, firm, no guarding, no hepatosplenomegaly : bladder normal to inspection, bladder normal to palpation, no renal angle tenderness Skin: no rashes or lesions noted and elasticity normal Neuro: Absent brainstem reflexes, sedated Objective Data Labs 05/14/24 04:41 05/14/24 04:41 Labs: Laboratory Results - last 24 hr 05/13/24 05/13/24 05/13/24 12:08 14:57 15:52 WBC RBC Hgb Hct MCV MCH MCHC RDW Plt Count MPV Immature Gran % (Auto) Neut % (Auto) Lymph % (Auto) Mcleod % (Auto) Eos % (Auto) Baso % (Auto) Lymph # (Auto) Mcleod # (Auto) Eos # (Auto) Baso # (Auto) Abs Immat Gran (auto) Absolute Neuts (auto) Absolute Nucleated RBC Nucleated RBC % (auto) Neutrophils % (Manual) Band Neutrophils % Lymphocytes % (Manual) Atypical Lymphs % (Man) Monocytes % (Manual) Metamyelocytes % Myelocytes % Abs Neuts (Manual) Lymphocytes # (Manual) Atyp Lymphs # (Manual) Monocytes # (Manual) Metamyelocytes # Myelocytes # Nucleated RBCs Toxic Granulation Toxic Vacuolation Dohle Bodies Platelet Estimate Plt Morphology Comment RBC Morphology Polychromasia Tear Drop Cells Ovalocytes Draper Cells Acanthocytes (Spur) Schistocytes O2 Saturation Not Reportable ABG pH at Pt Temp 7.26 L ABG pCO2 at Pt Temp 27 L ABG pO2 at Pt Temp 184 H ABG HCO3 12 L ABG Base Excess (Actual) -12.5 Sodium 144 Potassium 4.1 Chloride 110 H Carbon Dioxide 15 L Anion Gap 23 H BUN 52 H Creatinine 1.68 H Estim Creat Clear Calc 69.7 Estimated GFR 43 Random Glucose 289 H Lactic Acid F/U @ 2Hr 8.8 H* Lactic Acid F/U @ 4Hr 10.4 H* Calcium 7.3 L D Phosphorus Magnesium Total Bilirubin 1.9 H AST 79 H ALT 92 H Alkaline Phosphatase 161 H Total Protein 4.9 L Albumin 1.9 L 05/13/24 05/13/24 05/13/24 18:11 20:22 20:32 WBC 23.9 H RBC 4.35 L Hgb 12.0 L Hct 40.0 L MCV 92.0 MCH 27.6 MCHC 30.0 L RDW 15.5 Plt Count 185 D MPV 11.9 Immature Gran % (Auto) Cancelled Neut % (Auto) Cancelled Lymph % (Auto) Cancelled [place]cleod % (Auto) Cancelled Eos % (Auto) Cancelled Baso % (Auto) Cancelled Lymph # (Auto) Cancelled Mcleod # (Auto) Cancelled Eos # (Auto) Cancelled Baso # (Auto) Cancelled Abs Immat Gran (auto) Cancelled Absolute Neuts (auto) Cancelled Absolute Nucleated RBC 0.070 H Nucleated RBC % (auto) 0.3 H Neutrophils % (Manual) 36 L Band Neutrophils % 32 H Lymphocytes % (Manual) 10 L Atypical Lymphs % (Man) 1 Monocytes % (Manual) 5 Metamyelocytes % 9 Myelocytes % 7 Abs Neuts (Manual) 16.3 H Lymphocytes # (Manual) 2.4 Atyp Lymphs # (Manual) 0.2 Monocytes # (Manual) 1.2 Metamyelocytes # 2.2 Myelocytes # 1.7 Nucleated RBCs 1 H Toxic Granulation Toxic Vacuolation PRESENT Dohle Bodies PRESENT Platelet Estimate NORMAL Plt Morphology Comment NORMAL RBC Morphology NORMAL Polychromasia Tear Drop Cells Ovalocytes Louis Cells Acanthocytes (Spur) Schistocytes O2 Saturation Not Reportable Not Reportable ABG pH at Pt Temp 7.26 L 7.35 ABG pCO2 at Pt Temp 26 L 25 L ABG pO2 at Pt Temp 97 110 H ABG HCO3 12 L 14 L ABG Base Excess (Actual) -13.3 -9.3 Sodium 145 Potassium 4.2 Chloride 110 H Carbon Dioxide 15 L Anion Gap 24 H BUN 55 H Creatinine 2.10 H Estim Creat Clear Calc 55.8 Estimated GFR 33 Random Glucose 209 H Lactic Acid F/U @ 2Hr Lactic Acid F/U @ 4Hr Calcium 6.7 L D Phosphorus Magnesium Total Bilirubin 1.5 H AST 997 H ALT 1113 H Alkaline Phosphatase 136 H Total Protein 4.5 L Albumin 1.7 L 05/14/24 05/14/24 04:34 04:41 WBC 36.0 H* RBC 3.76 L Hgb 10.5 L Hct 35.0 L MCV 93.1 MCH 27.9 MCHC 30.0 L RDW 15.9 Plt Count 128 L D MPV 12.5 H Immature Gran % (Auto) Cancelled Neut % (Auto) Cancelled Lymph % (Auto) Cancelled Mcleod % (Auto) Cancelled Eos % (Auto) Cancelled Baso % (Auto) Cancelled Lymph # (Auto) Cancelled Mcleod # (Auto) Cancelled Eos # (Auto) Cancelled Baso # (Auto) Cancelled Abs Immat Gran (auto) Cancelled Absolute Neuts (auto) Cancelled Absolute Nucleated RBC 0.220 H Nucleated RBC % (auto) 0.6 H Neutrophils % (Manual) 30 L Band Neutrophils % 17 H Lymphocytes % (Manual) 24 Atypical Lymphs % (Man) 2 Monocytes % (Manual) 10 Metamyelocytes % 12 Myelocytes % 5 Abs Neuts (Manual) 16.9 H Lymphocytes # (Manual) 8.6 H Atyp Lymphs # (Manual) 0.7 Monocytes # (Manual) 3.6 H Metamyelocytes # 4.3 Myelocytes # 1.8 Nucleated RBCs 1 H Toxic Granulation PRESENT Toxic Vacuolation PRESENT Dohle Bodies PRESENT Platelet Estimate NORMAL Plt Morphology Comment NORMAL RBC Morphology NOTED Polychromasia 1+ (0-2) Tear Drop Cells 1+ (0-2) Ovalocytes 1+ (5-14) Draper Cells 1+ (0-2) Acanthocytes (Spur) 1+ (0-2) Schistocytes 1+ (0-2) O2 Saturation Not Reportable ABG pH at Pt Temp 7.17 L* ABG pCO2 at Pt Temp 21 L ABG pO2 at Pt Temp 174 H ABG HCO3 8 L ABG Base Excess (Actual) -18.4 Sodium 145 Potassium 4.8 Chloride 108 Carbon Dioxide 8 L* D Anion Gap 34 H BUN 66 H Creatinine 2.50 H Estim Creat Clear Calc 46.9 Estimated GFR 27 Random Glucose 162 H Lactic Acid F/U @ 2Hr Lactic Acid F/U @ 4Hr Calcium 6.8 L Phosphorus 5.1 H Magnesium 1.8 Total Bilirubin 1.6 H AST 3394 H ALT 2444 H Alkaline Phosphatase 107 Total Protein 5.5 L Albumin 3.0 L Microbiology Microbiology Results: Microbiology 05/13/24 09:34 Blood - Central Line Blood Culture - Final 04/25/24 22:17 Blood - Venous Blood Culture - Final No growth after 5 days. 04/25/24 22:08 Blood - Venous Blood Culture - Final Coag negative Staphylococcus Progress Note: A&P Assessment and plan (1) Shock: Status: Acute (2) Morbid obesity: Status: Chronic (3) Small bowel obstruction: Status: Acute (4) Acute encephalopathy: Status: Acute (5) Acute hypoxemic respiratory failure: Status: Acute (6) Acute hypokalemia: Status: Acute Plan 53-year-old gentleman with PMH of long segment SBO s/p resection secondary to ischemic bowel in 07/[address] Brasher, DVT/PE on Xarelto (last dose 04/24 PM), Guillian barre with IVIG infusions monthly admitted to the hospital on 04/26/2024 due to nausea, vomiting secondary to small-bowel obstruction and he was managed conservatively in the floor. On the morning of 05/13/2024 he became hypotensive, tachycardic 60, unresponsive so a rapid response was called, he received adenosine 2 doses for SVT, later cardioverted without much benefit. So eventually he was intubated, placed on ventilator support and moved to ICU, remained hypotensive despite being on maximum doses of 3 vasopressor support, unstable ventilator support now into multiorgan failure today. Neuro: Acute encephalopathy possibly due to metabolic encephalopathy from underlying systemic cause including shock Versed drip was switched to ketamine due to refractory hypotension after which the blood pressures have improved. Fentanyl for analgesia. Given very poor neurological response we got a CT scan of brain today, report pending. For my view it looked normal. Close neurological status monitoring in the ICU every hour Cardiac: Shock: Unclear etiology of shock, bedside echo showed squeeze okay and no focal wall motion abnormalities On 3 vasopressor support including maximum dose of phenylephrine, maximum dose of Levophed, maximum dose of vasopressin; yesterday whole day his blood pressures was not 60 systolics, today it is better and above 100. Received 11 L of fluid yesterday Respiratory: Acute respiratory failure due to severe refractory shock Currently on ventilator support On PRVC mode FiO2 50%, PEEP [5], TV 500, RR 26 Peak pressures and plateau pressures are under the curve Ventilator management bundle with head end elevation, aspiration precaution, chlorhexidine mouthwash, daily awakening trials, daily spontaneous breathing trials PF ratio was around 200, chest x-ray okay GI: Small-bowel obstruction: Status post large segment resection in the past due to ischemia We will hook the NG tube for suction as the chest x-ray showed dilated stomach and dilated bowel loops Was very unstable to go to CT yesterday due to refractory hypotension, underwent CT abdomen and pelvis today to look for the etiology of shock. Reports pending Given large amount of stool and dilated bowel loops we will do enemas will update general surgery once the CT reports are back Shock liver: LFTs in 2002 1000 secondary to refractory shock Hepatitis panel and HIV pending Renal: Acute kidney injury secondary to ATN from refractory shock, creatinine up to 2.5 today All the patient has a ANA we had to give him contrast for a CT because we were unsure about the etiology of the shock. And we needed the contrast to look for the etiology causing the shock. I explained to patient's healthcare proxy Mercedes about the risks and benefits of the contrast including possibly needing dialysis and she consented for the contrast. Looks like either ways patient can have a progression of the renal disease given his refractory shock but finding the etiology of the shock might help treating the cause thereby alleviating the symptoms. Has some urine output this morning We will closely monitor I's and O's Avoid nephrotoxic medications Heme: Chronic anemia, closely monitor H&H, transfuse for hemoglobin less than 7 grams/deciliter Endocrine: Blood sugars under control Sliding scale insulin as needed Infectious disease: Pancultures pending He is on empiric Zosyn and vancomycin Underwent CT chest abdomen and pelvis to look for the etiology of the shock Musculoskeletal: Decubitus ulcer prevention protocol Lines: Left IJ TLC Right femoral outlined Prophylaxis: Heparin, pantoprazole Patient is critically ill on multiple vasopressor support, ventilator support with multiple organ failure including shock liver, acute kidney injury; his prognosis is very guarded and has been explained very well to his healthcare proxy. Critical care time spent is about 60 minutes mainly on managing patient's multiple vasopressor drips, close hemodynamic monitoring, ventilator management, sedation management, review of labs at this time is excluding any critical care time Quality Stroke Does the patient have a stroke diagnosis?: No VTE Prior VTE?: Yes VTE Risk Level:: Medical - moderate - high VTE Device Contraindication: N/A - Device Ordered VTE Drug Contraindication: Treatment Not Indicated
[2024-05-14 13:08] LABS: ABG Base Excess -16.2 mmol/L; ABG HCO3 9 mmol/L (22-26); ABG pCO2 22 mmHg (32-45); ABG pH 7.22 (7.35-7.45); ABG pO2 113 mmHg (83-108)
[2024-05-14 13:09] LABS: Hemoglobin 10.2 g/dl (14.0-18.0); Mean Corpuscular HGB Conc 30.9 g/dl (31.0-36.0); Mean Corpuscular Hemoglobin 28.4 pg (27.0-33.0); Mean Corpuscular Volume 91.9 fL (80.0-98.0); Mean Platelet Volume 12.1 fL (9.4-12.4); NRBC Pct Auto 0.9 /100WBC (0.0-0.2); Red Blood Count 3.59 X10*6/uL (4.60-5.80); Red Cell Distribution Width 15.9 % (11.0-16.0)
[2024-05-14 13:10] LABS: Platelet Count 79 X10*3/uL (160-400); WBC ABN SCTR FOR CBC 1; White Blood Count 27.6 X10*3/uL (4.8-10.8)
[2024-05-14 13:32] LABS: Alkaline Phosphatase 126 U/L (39-117); Anion Gap 35 (12-20); Aspartate Amino Transferase 4993 U/L (5-37); Bilirubin Total 1.7 mg/dL (0.0-1.0); Blood Urea Nitrogen 70 mg/dL (9-16); Calcium 6.5 mg/dL (8.4-10.2); Carbon Dioxide 9 mmol/L (22-29); Chloride 107 mmol/L (96-108); Creatinine Clr Calc Pharmacy 46.7; Estimated Glomerular Filt Rate 25; Glucose Random 140 mg/dL (60-115); Magnesium 1.7 mg/dL (1.6-2.6); Phosphorus 4.7 mg/dL (2.7-4.5); Potassium 4.9 mmol/L (3.3-5.1); Sodium 146 mmol/L (135-145); Total Protein 5.3 g/dL (6.5-8.0)
[2024-05-14 13:38] LABS: Lactic Acid 18.8 mmol/L (0.5-2.0)
[2024-05-14 13:51] LABS: Alanine Aminotransferase 3658 U/L (0-40)
[2024-05-14 13:52] LABS: Vancomycin Random 31.5 mcg/mL (15-20)
[2024-05-14 14:01] LABS: Band Neutrophils Percent 7 % (3-5); Lymphocytes Absolute Manual 0.8 X10*3/uL (1.2-4.9); Lymphocytes Percent Manual 3 % (20-40); Metamyelocytes Absolute 11.3 X10*3/uL; Metamyelocytes Percent 41 %; Monocytes Absolute Manual 0.3 X10*3/uL (0.1-1.2); Monocytes Percent Manual 1 % (2-11); Myelocytes Absolute 12.1 X10*/uL; Myelocytes Percent 44 %; Nucleated Red Blood Cells 2 /100WBC (0-0); Promyelocytes Absolute 1.1 X10*3/uL; Promyelocytes Percent 4 %
[2024-05-14 14:02] LABS: Neutrophils Absolute Manual 1.9 X10*3/uL (2.0-8.3); Neutrophils Percent Manual 0 % (45-73)
--- NOTE | 2024-05-14 14:02 | PM.EVENT ---
Event Note Date of Service: 05/15/24 Event Note: seen afternoon rounds Remains on multiple pressors, on maximum doses Gasping for air on ventilator Abdomen soft Lactate now 18 Patient was able to undergo a CT scan - markedly dilated bowel loops, no free air, thickening wall of some bowel loops, cw ischemia Mercedes understands grim prognosis, poor outcome No surgical intervention appropriate at this time in view of overall medical condition Time Spent With Patient Time: Total time managing care of this patient today ____ minutes.
[2024-05-14 14:04] LABS: Platelet Estimate SLIGHTLY DECREASED (NORMAL); Platelet Morphology Comment NORMAL; RBC Morphology NOTED
[2024-05-14 14:05] LABS: Burr Cells 2+ (3-5) /OIF; Schistocytes 1+ (0-2) /OIF; Tear Drop Cells 2+ (3-5) /OIF
--- NOTE | 2024-05-14 14:06 | HE.PHANOTE ---
Vanco dose adjustment based on trough of 31.5 dose held on 05/14 next level 05/15 @ 1300
[2024-05-14] MEDS: Tetrahydrozoline HCl 0.05% Oph 15 ML DRPBTL 1 DROP EYE-BOTH (14:18)
[2024-05-14] MEDS: metroNIDAZOLE/NS 500 MG/100 ML PIGGYBACK 100 MG IV ×2 (14:26→21:30)
[2024-05-14 14:31] LABS: HBS Num1 309.17 mIU/mL (0-7.99); HBc Num1 1.89 S/CO (0.00-0.79); HBsAGNum1 0.39 S/CO (0.00-0.99); HIV AB/AG Nonreactive (Nonreactive); HIV Num 1 0.08 S/CO (0.00-0.99); Hepatitis A Antibody IgM 0.19 Index (0-0.79); Hepatitis B Surface Antigen Negative (Negative); ~Hepatitis A Antibody IgM Nonreactive (Nonreactive); ~Hepatitis B Surface Antibody REACTIVE (Nonreactive); ~Hepatitis C Antibody Nonreactive (Nonreactive)
[2024-05-14 15:06] LABS: Reflex Lactate? Lactic Acid Added
--- NOTE | 2024-05-14 15:30 | PM.EVENT ---
Event Note Date of Service: 05/22/24 Event Note: CT scan report by radiologist - cw bowel ischemia in small bowel, likely with area of perforation I re-discussed this with Mercedes treatment for this would be laparotomy, resection unfortunately however, with patient's currently overall state, he is not a candidate for surgical intervention/anesthesia he has had prolonged severe acidosis requiring massive doses of mutiple pressors on bicarb supplementation appears inevitable with multiple physiologic insults discussed with ICU Time Spent With Patient Time: Total time managing care of this patient today ____ minutes.
[2024-05-14 16:08] LABS: ~Lactic Acid-LAB USE ONLY 15.6 mmol/L (0.5-2.0)
[2024-05-14 16:23] LABS: HBc Num2 1.88 S/CO; HBc Num3 1.89 S/CO; Hepatitis B Core Antibody Reactive (Nonreactive)
[2024-05-14] MEDS: Fluconazole in NaCl,Iso-Osm 200 MG/100 ML PIGGYBACK 100 MG IV (16:39)
[2024-05-14] MEDS: Sodium Bicarbonate 8.4% 150 MEQ in Dextrose 5 % 850 ML IV (16:45)
[2024-05-14] MEDS: Sodium Bicarbonate 8.4% 150 MEQ in Dextrose 5 % 850 ML 999 MEQ IV (17:10)
[2024-05-14 17:27] LABS: Reflex Lactate? 2 Y
[2024-05-14 19:42] LABS: ABG Base Excess -17.7 mmol/L; ABG HCO3 8 mmol/L (22-26); ABG pCO2 21 mmHg (32-45); ABG pH 7.19 (7.35-7.45); ABG pO2 119 mmHg (83-108)
[2024-05-14] MEDS: 0.9 % Sodium Chloride Flush 10 ML SYRINGE 5 ML IVFLUSH (20:19)
[2024-05-14] MEDS: Heparin Sodium,Porcine 5,000 UNIT/ML VIAL 5000 UNIT SUBCUT (21:34)
[2024-05-14] MEDS: Parenteral Nutrition 2,040 ML 85 ML IV (22:06)
[2024-05-14 23:13] LABS: ABG Refer to POC result
[2024-05-14 23:15] LABS: ABG Refer to POC result
[2024-05-15] VITALS (65 sets, daily range): BP systolic 49–96; BP diastolic 18–38; PULSE 106–120; RESP 25–33; TEMP 34.8–38.9; O2SAT 90–97; BMI 37.6
[2024-05-15] MEDS: Sodium Bicarbonate 8.4% 150 MEQ in Dextrose 5 % 850 ML IV ×4 (00:32→19:19)
[2024-05-15] MEDS: Phenylephrine HCL 100 MG in 0.9 % Sodium Chloride 250 ML 103.33 MG IVCONT ×10 (00:55→22:58)
[2024-05-15] MEDS: fentaNYL citrate/NS 1,000 MCG/100 ML PLAST..BAG 12.5 MCG IVCONT (01:07)
[2024-05-15] MEDS: Norepinephrine Bitartrate/NS 32 MG/250 ML PLAST..BAG 51.75 MG IVCONT ×5 (03:56→22:55)
[2024-05-15] MEDS: Albumin Human 25 % 100 ML IV ×4 (04:24→06:26)
[2024-05-15 04:47] LABS: ABG Base Excess -20.1 mmol/L; ABG HCO3 7 mmol/L (22-26); ABG pCO2 24 mmHg (32-45); ABG pO2 114 mmHg (83-108)
[2024-05-15 04:53] LABS: ABG Refer to POC result
[2024-05-15] MEDS: Lactated Ringers 1,000 ML 999 ML IV (05:00)
[2024-05-15 05:06] LABS: Hematocrit 29.6 % (42.0-52.0); Hemoglobin 8.9 g/dl (14.0-18.0); Mean Corpuscular HGB Conc 30.1 g/dl (31.0-36.0); Mean Corpuscular Hemoglobin 28.5 pg (27.0-33.0); Mean Corpuscular Volume 94.9 fL (80.0-98.0); Mean Platelet Volume 11.9 fL (9.4-12.4); Red Blood Count 3.12 X10*6/uL (4.60-5.80); Red Cell Distribution Width 16.7 % (11.0-16.0)
[2024-05-15 05:07] LABS: Platelet Count 38 X10*3/uL (160-400); WBC ABN SCTR FOR CBC 1
[2024-05-15] MEDS: Vasopressin 20 UNIT/100 ML INFUS..BTL 12 UNIT IVCONT ×3 (05:14→19:52)
[2024-05-15 05:24] LABS: Albumin Level 2.2 g/dL (3.5-5.0); Anion Gap 39 (12-20); Aspartate Amino Transferase 4525 U/L (5-37); Bilirubin Total 1.9 mg/dL (0.0-1.0); Blood Urea Nitrogen 77 mg/dL (9-16); Chloride 103 mmol/L (96-108); Creatinine Clr Calc Pharmacy 36.2; Estimated Glomerular Filt Rate 19; Glucose Random 127 mg/dL (60-115); Magnesium 1.7 mg/dL (1.6-2.6); Phosphorus 5.1 mg/dL (2.7-4.5); Potassium 5.4 mmol/L (3.3-5.1); Sodium 144 mmol/L (135-145); Total Protein 4.4 g/dL (6.5-8.0)
[2024-05-15 05:34] LABS: Calcium 5.9 mg/dL (8.4-10.2); Carbon Dioxide 7 mmol/L (22-29); ~Lactic Acid-LAB USE ONLY 22.8 mmol/L (0.5-2.0)
[2024-05-15 05:35] LABS: Band Neutrophils Percent 2 % (3-5); Lymphocytes Percent Manual 8 % (20-40); Metamyelocytes Percent 45 %; Monocytes Percent Manual 3 % (2-11); Myelocytes Percent 35 %; Neutrophils Percent Manual 6 % (45-73); Nucleated Red Blood Cells 4 /100WBC (0-0); Promyelocytes Percent 1 %
[2024-05-15 05:37] LABS: Large Platelet PRESENT; Platelet Estimate DECREASED (NORMAL); Platelet Morphology Comment NOTED; RBC Morphology NOTED
[2024-05-15 05:38] LABS: Acanthocytes 2+ (3-5) /OIF; Burr Cells 1+ (0-2) /OIF; Schistocytes 1+ (0-2) /OIF; Tear Drop Cells 3+ (>5) /OIF
[2024-05-15 05:39] LABS: Ovalocytes 1+ (5-14) /OIF; Toxic Granulation PRESENT; Toxic Vacuolation PRESENT
[2024-05-15 05:40] LABS: Alkaline Phosphatase 196 U/L (39-117); Basophilic Stippling 1+ (0-2) /OIF
[2024-05-15] MEDS: Ketamine HCl 500 MG in 0.9 % Sodium Chloride 250 ML 28.15 MG IVCONT (05:50)
[2024-05-15 06:00] LABS: Lymphocytes Absolute Manual 2.2 X10*3/uL (1.2-4.9); Metamyelocytes Absolute 12.4 X10*3/uL; Monocytes Absolute Manual 0.8 X10*3/uL (0.1-1.2); Myelocytes Absolute 9.7 X10*/uL; Neutrophils Absolute Manual 2.2 X10*3/uL (2.0-8.3); Promyelocytes Absolute 0.3 X10*3/uL; White Blood Count 27.6 X10*3/uL (4.8-10.8)
[2024-05-15 06:02] LABS: Alanine Aminotransferase 3523 U/L (0-40)
[2024-05-15] MEDS: Rocuronium Bromide 50 MG/5 ML VIAL IVPUSH (06:08)
[2024-05-15] MEDS: Albuterol Sulfate 7.5 MG, Albuterol Sulfate (0.083%) 2.5 MG 10 MG INHALE (06:10)
[2024-05-15 06:21] LABS: Glucose, Whole Blood 76 mg/dL (60-115)
[2024-05-15] MEDS: Dextrose 10 % 250 ML 750 ML IV (06:23)
[2024-05-15] MEDS: metroNIDAZOLE/NS 500 MG/100 ML PIGGYBACK 100 MG IV (06:31)
[2024-05-15] MEDS: Piperacillin Sodium/Tazobactam 4.5 GM in 0.9 % Sodium Chloride 100 ML IV ×3 (06:32→22:06)
[2024-05-15] MEDS: Insulin Regular, Human 100 UNIT/ML 10 ML VIAL IVPUSH (06:34)
[2024-05-15] MEDS: Calcium Gluconate/NaCl,Iso-Osm 2 GM/100 ML PLAST..BAG IV (06:37)
--- NOTE | 2024-05-15 07:57 | P.PNCC_ITS ---
Subjective Subjective Date of Service: 05/15/24 Critical Care Time (minutes): 90 Physical Exam 2 Vital Signs: Vital Signs: Last Vital Signs Temp 99.7 F 05/15/24 07:00 Pulse 108 H 05/15/24 07:00 Resp 25 H 05/15/24 07:00 BP 62/34 L 05/15/24 07:00 Pulse Ox 93 05/15/24 07:00 O2 Del Method Mechanical Ventil ation 05/15/24 07:00 FiO2 50 05/15/24 07:34 BMI result Body Mass Index 37.6 Const: Other: intubated, sedated, no appreciable spontaneous movements HEENT: Head: Yes normal to inspection, Yes normocephalic and Yes atraumatic Eyes: General: appearance normal, both eyes and all related structures Neck: Neck: Yes normal visual inspection, Yes full ROM, Yes no meningeal signs, Yes trachea midline and Yes supple Chest: Chest palpation & inspection: normal inspection of the chest Resp: Other: no appreciable rales, rhonchi, wheezing Effort & Inspection: normal respiratory effort Cardio: Rate: tachycardic Rhythm: regular rhythm GI: Other: appreciable distended, firm abdomen; no appreciable bowel sounds Inspection: Yes distended Palpation (GI): Firmness to palpation present (GI) Skin: General skin exam: no rashes or lesions noted Neuro: General: no meningeal signs Extrem: Other: cool extremities; appreciable 1+ pitting edema to bilateral shins Psych: Other: unable to assess Objective Data Labs 05/15/24 04:40 05/15/24 04:40 Labs: Laboratory Results - last 24 hr 05/13/24 05/13/24 05/13/24 14:57 15:52 18:11 WBC RBC Hgb Hct MCV MCH MCHC RDW Plt Count MPV Immature Gran % (Auto) Neut % (Auto) Lymph % (Auto) [place] % (Auto) Eos % (Auto) Baso % (Auto) Lymph # (Auto) [place] # (Auto) Eos # (Auto) Baso # (Auto) Abs Immat Gran (auto) Absolute Neuts (auto) Absolute Nucleated RBC Nucleated RBC % (auto) Neutrophils % (Manual) Band Neutrophils % Lymphocytes % (Manual) Monocytes % (Manual) Metamyelocytes % Myelocytes % Promyelocytes % Abs Neuts (Manual) Lymphocytes # (Manual) Monocytes # (Manual) Metamyelocytes # Myelocytes # Promyelocytes # Nucleated RBCs Toxic Granulation Toxic Vacuolation Platelet Estimate Large Platelets Plt Morphology Comment RBC Morphology Basophilic Stippling Tear Drop Cells Ovalocytes Louis Cells Acanthocytes (Spur) Schistocytes O2 Saturation TNP TNP ABG pH at Pt Temp ABG pCO2 at Pt Temp ABG pO2 at Pt Temp ABG HCO3 ABG Base Excess (Actual) Sodium Potassium Chloride Carbon Dioxide Anion Gap BUN Creatinine Estim Creat Clear Calc Estimated GFR POC Glucose Random Glucose Lactic Acid Lactic Acid F/U @ 2Hr Lactic Acid F/U @ 4Hr Calcium Phosphorus Magnesium Total Bilirubin AST ALT Alkaline Phosphatase Total Protein Albumin Random Vancomycin Hepatitis A IgM Ab Nonreactive Hep Bs Antigen Negative Hep Bs Antibody REACTIVE Hep B Core Total Ab Reactive Hep B Core IgM Ab Cancelled Hepatitis C Ab (EIA) Nonreactive HIV 1&2 Ab/P24 Ag 4thGn Nonreactive 05/13/24 05/14/24 05/14/24 20:22 12:55 13:01 WBC 27.6 H RBC 3.59 L Hgb 10.2 L Hct 33.0 L MCV 91.9 MCH 28.4 MCHC 30.9 L RDW 15.9 Plt Count 79 L D MPV 12.1 Immature Gran % (Auto) Cancelled Neut % (Auto) Cancelled Lymph % (Auto) Cancelled [place] % (Auto) Cancelled Eos % (Auto) Cancelled Baso % (Auto) Cancelled Lymph # (Auto) Cancelled [place] # (Auto) Cancelled Eos # (Auto) Cancelled Baso # (Auto) Cancelled Abs Immat Gran (auto) Cancelled Absolute Neuts (auto) Cancelled Absolute Nucleated RBC 0.240 H Nucleated RBC % (auto) 0.9 H Neutrophils % (Manual) 0 L Band Neutrophils % 7 H Lymphocytes % (Manual) 3 L Monocytes % (Manual) 1 L Metamyelocytes % 41 Myelocytes % 44 Promyelocytes % 4 Abs Neuts (Manual) 1.9 L Lymphocytes # (Manual) 0.8 L Monocytes # (Manual) 0.3 Metamyelocytes # 11.3 Myelocytes # 12.1 Promyelocytes # 1.1 Nucleated RBCs 2 H Toxic Granulation Toxic Vacuolation Platelet Estimate SLIGHTLY DECREASED Large Platelets Plt Morphology Comment NORMAL RBC Morphology NOTED Basophilic Stippling Tear Drop Cells 2+ (3-5) Ovalocytes Louis Cells 2+ (3-5) Acanthocytes (Spur) Schistocytes 1+ (0-2) O2 Saturation TNP Not Reportable ABG pH at Pt Temp 7.22 L ABG pCO2 at Pt Temp 22 L ABG pO2 at Pt Temp 113 H ABG HCO3 9 L ABG Base Excess (Actual) -16.2 Sodium 146 H Potassium 4.9 Chloride 107 Carbon Dioxide 9 L* Anion Gap 35 H BUN 70 H Creatinine 2.68 H Estim Creat Clear Calc 46.7 Estimated GFR 25 POC Glucose Random Glucose 140 H Lactic Acid 18.8 H* Lactic Acid F/U @ 2Hr Lactic Acid F/U @ 4Hr Calcium 6.5 L Phosphorus 4.7 H Magnesium 1.7 Total Bilirubin 1.7 H AST 4993 H ALT 3658 H Alkaline Phosphatase 126 H Total Protein 5.3 L Albumin 3.0 L Random Vancomycin 31.5 H* Hepatitis A IgM Ab Hep Bs Antigen Hep Bs Antibody Hep B Core Total Ab Hep B Core IgM Ab Hepatitis C Ab (EIA) HIV 1&2 Ab/P24 Ag 4thGn 05/14/24 05/14/24 05/15/24 15:24 19:30 04:37 WBC RBC Hgb Hct MCV MCH MCHC RDW Plt Count MPV Immature Gran % (Auto) Neut % (Auto) Lymph % (Auto) [place] % (Auto) Eos % (Auto) Baso % (Auto) Lymph # (Auto) [place] # (Auto) Eos # (Auto) Baso # (Auto) Abs Immat Gran (auto) Absolute Neuts (auto) Absolute Nucleated RBC Nucleated RBC % (auto) Neutrophils % (Manual) Band Neutrophils % Lymphocytes % (Manual) Monocytes % (Manual) Metamyelocytes % Myelocytes % Promyelocytes % Abs Neuts (Manual) Lymphocytes # (Manual) Monocytes # (Manual) Metamyelocytes # Myelocytes # Promyelocytes # Nucleated RBCs Toxic Granulation Toxic Vacuolation Platelet Estimate Large Platelets Plt Morphology Comment RBC Morphology Basophilic Stippling Tear Drop Cells Ovalocytes Louis Cells Acanthocytes (Spur) Schistocytes O2 Saturation Not Reportable Not Reportable ABG pH at Pt Temp 7.19 L* 7.10 L* ABG pCO2 at Pt Temp 21 L 24 L ABG pO2 at Pt Temp 119 H 114 H ABG HCO3 8 L 7 L ABG Base Excess (Actual) -17.7 -20.1 Sodium Potassium Chloride Carbon Dioxide Anion Gap BUN Creatinine Estim Creat Clear Calc Estimated GFR POC Glucose Random Glucose Lactic Acid Lactic Acid F/U @ 2Hr 15.6 H* Lactic Acid F/U @ 4Hr Calcium Phosphorus Magnesium Total Bilirubin AST ALT Alkaline Phosphatase Total Protein Albumin Random Vancomycin Hepatitis A IgM Ab Hep Bs Antigen Hep Bs Antibody Hep B Core Total Ab Hep B Core IgM Ab Hepatitis C Ab (EIA) HIV 1&2 Ab/P24 Ag 4thGn 05/15/24 05/15/24 04:40 06:18 WBC 27.6 H RBC 3.12 L Hgb 8.9 L Hct 29.6 L MCV 94.9 MCH 28.5 MCHC 30.1 L RDW 16.7 H Plt Count 38 L D MPV 11.9 Immature Gran % (Auto) Cancelled Neut % (Auto) Cancelled Lymph % (Auto) Cancelled [place] % (Auto) Cancelled Eos % (Auto) Cancelled Baso % (Auto) Cancelled Lymph # (Auto) Cancelled [place] # (Auto) Cancelled Eos # (Auto) Cancelled Baso # (Auto) Cancelled Abs Immat Gran (auto) Cancelled Absolute Neuts (auto) Cancelled Absolute Nucleated RBC 0.550 H Nucleated RBC % (auto) 2.0 H Neutrophils % (Manual) 6 L Band Neutrophils % 2 L Lymphocytes % (Manual) 8 L Monocytes % (Manual) 3 Metamyelocytes % 45 Myelocytes % 35 Promyelocytes % 1 Abs Neuts (Manual) 2.2 Lymphocytes # (Manual) 2.2 Monocytes # (Manual) 0.8 Metamyelocytes # 12.4 Myelocytes # 9.7 Promyelocytes # 0.3 Nucleated RBCs 4 H Toxic Granulation PRESENT Toxic Vacuolation PRESENT Platelet Estimate DECREASED Large Platelets PRESENT Plt Morphology Comment NOTED RBC Morphology NOTED Basophilic Stippling 1+ (0-2) Tear Drop Cells 3+ (>5) Ovalocytes 1+ (5-14) Louis Cells 1+ (0-2) Acanthocytes (Spur) 2+ (3-5) Schistocytes 1+ (0-2) O2 Saturation ABG pH at Pt Temp ABG pCO2 at Pt Temp ABG pO2 at Pt Temp ABG HCO3 ABG Base Excess (Actual) Sodium 144 Potassium 5.4 H Chloride 103 Carbon Dioxide 7 L* D Anion Gap 39 H BUN 77 H Creatinine 3.46 H Estim Creat Clear Calc 36.2 Estimated GFR 19 POC Glucose 76 Random Glucose 127 H Lactic Acid Lactic Acid F/U @ 2Hr Lactic Acid F/U @ 4Hr 22.8 H* Calcium 5.9 L* D Phosphorus 5.1 H Magnesium 1.7 Total Bilirubin 1.9 H AST 4525 H ALT 3523 H Alkaline Phosphatase 196 H Total Protein 4.4 L Albumin 2.2 L Random Vancomycin Hepatitis A IgM Ab Hep Bs Antigen Hep Bs Antibody Hep B Core Total Ab Hep B Core IgM Ab Hepatitis C Ab (EIA) HIV 1&2 Ab/P24 Ag 4thGn Microbiology Microbiology Results: Microbiology 05/13/24 15:19 Blood - Venous Blood Culture - Preliminary No growth after 24 hours. 05/13/24 15:19 Blood - Venous Blood Culture - Preliminary Prelim: GNR Gram Stain only 05/13/24 09:34 Blood - Central Line Blood Culture - Final 04/25/24 22:17 Blood - Venous Blood Culture - Final No growth after 5 days. 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, initially presenting to emergency department on 04/26 w/ nausea/vomiting, found to have small bowel obstruction, admitted to floor; on 05/13, patient developed shock, admitted ICU, found to have bowel perforation; ICU course c/b acute respiratory failure, s/p intubation and profound shock necessitating 3 vasopressors; patient unfortunately hemodynamically unstable for surgical intervention N: intubated, sedated w/ fentanyl gtt, wean as tolerated CV: profound septic shock, on norepinephrine, vasopressin, and phenylephrine gtt, wean as tolerated, calcium bolus as needed R: intubated, wean as tolerated GI: small bowel obstruction c/b perforation, unfortunately hemodynamically unstable for surgical intervention, appreciate surgery recommendations; shock liver, to monitor : acute renal insufficiency, to closely monitor renal indices, replete electrolytes H: leukocytosis in setting of septic shock; anemia, thrombocytopenia, likely d/t bone marrow suppression in setting of critical illness, transfuse as needed; prior DVT and PE previously on rivaroxaban, to hold when platelets less than 50 ID: in setting of profound septic shock, on vancomycin, zosyn, and fluconazole E: to monitor hypo-/hyper-glycemia S: ongoing discussions regarding patient's guarded and critical clinical status w/ patient's partner, Mercedes Barajas Stroke Does the patient have a stroke diagnosis?: No VTE Prior VTE?: Yes VTE Risk Level:: Medical - moderate - high VTE Device Contraindication: N/A - Device Ordered VTE Drug Contraindication: Treatment Not Tolerated
[2024-05-15] MEDS: Calcium Chloride 1 GM/10 ML SYRINGE IVPUSH ×4 (08:09→18:09)
[2024-05-15] MEDS: Sodium Bicarbonate 8.4% 50 MEQ/50 ML SYRINGE IVPUSH ×2 (08:09→19:56)
[2024-05-15] MEDS: 0.9 % Sodium Chloride Flush 3 ML SYRINGE IVFLUSH ×3 (08:10→19:46)
[2024-05-15] MEDS: Hydrocortisone Sod Succ/PF 100 MG VIAL IVPUSH ×3 (08:10→22:06)
[2024-05-15 08:49] LABS: Vancomycin Random 22.4 mcg/mL (15-20)
--- NOTE | 2024-05-15 08:55 | PC.NURSE ---
Addendum entered by Minda Barrett RN 05/15/24 09:17: Microbiology called back to clarify 1 of 2 out of central line and 1 of 2 venous draw, cultures positive for gram neg rods, MD made aware, no new orders at current time. Original Note: Assumed care of patient at 0700. RASS -5, Ketamine gtt turned off per MD, Fentanyl gtt infusing per JUL. Core temp 99.1. Patient maxed on Levo, Vaso and Raul gtts - MAPS maintaining less than 65, SBP 50-60s - MD aware and at bedside. Accelerated Junctional on tele, HR maintaining 110's. Calcium Cld x2amps & 1amp Bicarb administered per EMAR. RT at bedside suctioned for thick inline secretions, tolerating AC vent setting. FI02 50% O2 sat 90-91%. ABD distended, absent BS. NG to Low intermitted suction, draining bilious content. No urine noted in Vasquez - MD aware. Unable to reposition patient due to hydrodynamic instability, passive ROM provided q2h, air loss bed and hover mat in place. Family at bedside and updated by MD of current status. Pacer pads applied and code cart at bedside. Care ongoing.
[2024-05-15] MEDS: Pantoprazole Sodium 40 MG/10 ML VIAL IVPUSH (09:14)
--- NOTE | 2024-05-15 09:25 | MHC.CM.PN ---
Patient remains in ICU care. CM spoke w/ partner, Mercedes. Requesting documentation of hospitalization and will work w/ her employer for time off. CM will continue to follow.
--- NOTE | 2024-05-15 10:16 | MHC.CLN ---
F/U CONTINUES NPO WITH TPN PROGNOSIS POOR PER MD DISCUSSED WITH PHARMACY CONTINUE TPN AT MAX GOAL RATE OF 85 ML PER HOUR WITH 76 G LIPIDS PROVIDES 2208 TOTAL KCALS (24.8 KCALS/KG IBW), 102 G PROTEIN (1.15 G/KG IBW), 306 G DEXTROSE REPLETE LYTES NEEDED FOLLOWING WITH TEAM
--- NOTE | 2024-05-15 10:56 | P.PNGS_ITS ---
Subjective Subjective Date of Service: 05/16/24 Interval history: He remains on multiple pressor Still hypotensive On ventilator Poor urine output Physical Exam 2 Vital Signs: Vital Signs: Last Vital Signs Temp 99.0 F 05/15/24 10:00 Pulse 109 H 05/15/24 10:00 Resp 25 H 05/15/24 10:00 BP 55/32 L 05/15/24 10:00 Pulse Ox 93 05/15/24 10:00 O2 Del Method Mechanical Ventil ation 05/15/24 10:00 FiO2 50 05/15/24 10:00 BMI result Body Mass Index 37.6 Const: Other: On ventilator, in respiratory distress with air hunger Resp: Other: With air hunger Cardio: Rate: tachycardic GI: Inspection: Yes distended Palpation (GI): Soft to palpation Objective Data Active Medications Heparin Sodium (Porcine) (Heparin Sodium,Porcine 5,000 Unit/Ml Vial) 5,000 unit SUBCUT Q8H [facility] Last Admin: 05/15/24 06:38 Dose: Not Given Documented By: XU Non-Admin Reason: Physician Held Med Hydrocortisone Sodium Succinate (Hydrocortisone Sod Succ/Pf 100 Mg Vial) 100 mg IVPUSH Q8H [facility] Last Admin: 05/15/24 08:10 Dose: 100 mg Documented By: ADRIAN Sodium Bicarbonate 150 meq/ (Dextrose) 1,000 mls @ 150 mls/hr IV .Q6H40M [facility] Last Admin: 05/15/24 06:33 Dose: 150 mls/hr Documented By: XU Fentanyl (Sublimaze/Ns) 1,000 mcg in 100 mls @ 0 mls/hr IVCONT .Q0M [facility]; Protocol Last Titration: 05/15/24 06:09 Dose: 100 mcg/hr, 10 mls/hr Documented By: XU Vasopressin (Vasostrict) 20 unit in 100 mls @ 12 mls/hr IVCONT .Q8H20M [facility] Last Admin: 05/15/24 05:14 Dose: 0.04 unit/min, 12 mls/hr Documented By: XU Phenylephrine HCl 100 mg/ (Sodium Chloride) 260 mls @ 0 mls/hr IVCONT .Q0M [facility]; Protocol Last Admin: 05/15/24 08:35 Dose: 6 mcg/kg/min, 103.33 mls/hr Documented By: ADRIAN Co-signed By: GILBERTO Norepinephrine Bitartrate (Levophed) 32 mg in 250 mls @ 0 mls/hr IVCONT .Q0M [facility]; Protocol Last Admin: 05/15/24 08:52 Dose: 1 mcg/kg/min, 51.75 mls/hr Documented By: ADRIAN Co-signed By: GILBERTO Fluconazole (Diflucan) 200 mg in 100 mls @ 100 mls/hr IV Q24H [facility] Last Infusion: 05/14/24 18:11 Dose: Infused Documented By: SOFFAA Nutrition (Parenteral) (Parenteral Nutrition) 2,040 mls @ 85 mls/hr IV .Q24H [facility]; Protocol Stop: 05/15/24 20:59 Last Admin: 05/14/24 22:06 Dose: 85 mls/hr Documented By: XU Dextrose (D10) 250 mls @ 750 mls/hr IV Q15M PRN PRN Reason: per Hypoglycemia Standing Ord. Last Infusion: 05/15/24 06:42 Dose: Infused Documented By: XU Piperacillin Sod/Tazobactam (Sod 4.5 gm/ Sodium Chloride) 100 mls @ 200 mls/hr IV Q8H [facility] Vancomycin HCl 750 mg/ Sodium (Chloride) 265 mls @ 265 mls/hr IV ONCE ONE Stop: 05/15/24 09:59 Naloxone HCl (Naloxone Hcl 0.4 Mg/Ml Vial) 0.2 mg IVPUSH Q2M PRN PRN Reason: Excessive sedation or RR < 8 Pantoprazole Sodium (Pantoprazole Sodium 40 Mg/10 Ml Vial) 40 mg IVPUSH DAILY@0630 [facility] Last Admin: 05/15/24 09:14 Dose: 40 mg Documented By: ADRIAN Pharmacy Consult (Consult Rx Parenteral Nutrition Ordering) 1 each MISCELLANE DAILY PRN PRN Reason: Consult order Pharmacy Consult (Consult Rx Vancomycin Dosing) 1 each MISCELLANE DAILY PRN PRN Reason: Consult order Sodium Chloride (0.9 % Sodium Chloride Flush 3 Ml Syringe) 3 ml IVFLUSH QSHIFT [facility] Last Admin: 05/15/24 08:10 Dose: 3 ml Documented By: ADRIAN Labs 05/16/24 05:21 05/16/24 05:21 Labs: Laboratory Results - last 24 hr 05/13/24 05/13/24 05/13/24 14:57 15:52 18:11 MCV MCH MCHC RDW Plt Count MPV Immature Gran % (Auto) Neut % (Auto) Lymph % (Auto) [place] % (Auto) Eos % (Auto) Baso % (Auto) Lymph # (Auto) [place] # (Auto) Eos # (Auto) Baso # (Auto) Abs Immat Gran (auto) Absolute Neuts (auto) Absolute Nucleated RBC Nucleated RBC % (auto) Neutrophils % (Manual) Band Neutrophils % Lymphocytes % (Manual) Monocytes % (Manual) Metamyelocytes % Myelocytes % Promyelocytes % Abs Neuts (Manual) Lymphocytes # (Manual) Monocytes # (Manual) Metamyelocytes # Myelocytes # Promyelocytes # Nucleated RBCs Toxic Granulation Toxic Vacuolation Platelet Estimate Large Platelets Plt Morphology Comment RBC Morphology Basophilic Stippling Tear Drop Cells Ovalocytes [place] Cells Acanthocytes (Spur) Schistocytes Smear Path Review O2 Saturation TNP TNP ABG pH at Pt Temp ABG pCO2 at Pt Temp ABG pO2 at Pt Temp ABG HCO3 ABG Base Excess (Actual) Anion Gap Estim Creat Clear Calc Estimated GFR POC Glucose Random Glucose Lactic Acid Lactic Acid F/U @ 2Hr Lactic Acid F/U @ 4Hr Calcium Phosphorus Magnesium Total Bilirubin AST ALT Alkaline Phosphatase Total Protein Albumin Random Vancomycin Hepatitis A IgM Ab Nonreactive Hep Bs Antigen Negative Hep Bs Antibody REACTIVE Hep B Core Total Ab Reactive Hep B Core IgM Ab Cancelled Hepatitis C Ab (EIA) Nonreactive HIV 1&2 Ab/P24 Ag 4thGn Nonreactive 05/13/24 05/14/24 05/14/24 20:22 04:41 12:55 MCV MCH MCHC RDW Plt Count MPV Immature Gran % (Auto) Neut % (Auto) Lymph % (Auto) [place] % (Auto) Eos % (Auto) Baso % (Auto) Lymph # (Auto) [place] # (Auto) Eos # (Auto) Baso # (Auto) Abs Immat Gran (auto) Absolute Neuts (auto) Absolute Nucleated RBC Nucleated RBC % (auto) Neutrophils % (Manual) Band Neutrophils % Lymphocytes % (Manual) Monocytes % (Manual) Metamyelocytes % Myelocytes % Promyelocytes % Abs Neuts (Manual) Lymphocytes # (Manual) Monocytes # (Manual) Metamyelocytes # Myelocytes # Promyelocytes # Nucleated RBCs Toxic Granulation Toxic Vacuolation Platelet Estimate Large Platelets Plt Morphology Comment RBC Morphology Basophilic Stippling Tear Drop Cells Ovalocytes [place] Cells Acanthocytes (Spur) Schistocytes Smear Path Review SEE NOTE O2 Saturation TNP Not Reportable ABG pH at Pt Temp 7.22 L ABG pCO2 at Pt Temp 22 L ABG pO2 at Pt Temp 113 H ABG HCO3 9 L ABG Base Excess (Actual) -16.2 Anion Gap Estim Creat Clear Calc Estimated GFR POC Glucose Random Glucose Lactic Acid Lactic Acid F/U @ 2Hr Lactic Acid F/U @ 4Hr Calcium Phosphorus Magnesium Total Bilirubin AST ALT Alkaline Phosphatase Total Protein Albumin Random Vancomycin Hepatitis A IgM Ab Hep Bs Antigen Hep Bs Antibody Hep B Core Total Ab Hep B Core IgM Ab Hepatitis C Ab (EIA) HIV 1&2 Ab/P24 Ag 4thGn 05/14/24 05/14/24 05/14/24 13:01 15:24 19:30 MCV 91.9 MCH 28.4 MCHC 30.9 L RDW 15.9 Plt Count 79 L D MPV 12.1 Immature Gran % (Auto) Cancelled Neut % (Auto) Cancelled Lymph % (Auto) Cancelled [place] % (Auto) Cancelled Eos % (Auto) Cancelled Baso % (Auto) Cancelled Lymph # (Auto) Cancelled [place] # (Auto) Cancelled Eos # (Auto) Cancelled Baso # (Auto) Cancelled Abs Immat Gran (auto) Cancelled Absolute Neuts (auto) Cancelled Absolute Nucleated RBC 0.240 H Nucleated RBC % (auto) 0.9 H Neutrophils % (Manual) 0 L Band Neutrophils % 7 H Lymphocytes % (Manual) 3 L Monocytes % (Manual) 1 L Metamyelocytes % 41 Myelocytes % 44 Promyelocytes % 4 Abs Neuts (Manual) 1.9 L Lymphocytes # (Manual) 0.8 L Monocytes # (Manual) 0.3 Metamyelocytes # 11.3 Myelocytes # 12.1 Promyelocytes # 1.1 Nucleated RBCs 2 H Toxic Granulation Toxic Vacuolation Platelet Estimate SLIGHTLY DECREASED Large Platelets Plt Morphology Comment NORMAL RBC Morphology NOTED Basophilic Stippling Tear Drop Cells 2+ (3-5) Ovalocytes [place] Cells 2+ (3-5) Acanthocytes (Spur) Schistocytes 1+ (0-2) Smear Path Review O2 Saturation Not Reportable ABG pH at Pt Temp 7.19 L* ABG pCO2 at Pt Temp 21 L ABG pO2 at Pt Temp 119 H ABG HCO3 8 L ABG Base Excess (Actual) -17.7 Anion Gap 35 H Estim Creat Clear Calc 46.7 Estimated GFR 25 POC Glucose Random Glucose 140 H Lactic Acid 18.8 H* Lactic Acid F/U @ 2Hr 15.6 H* Lactic Acid F/U @ 4Hr Calcium 6.5 L Phosphorus 4.7 H Magnesium 1.7 Total Bilirubin 1.7 H AST 4993 H ALT 3658 H Alkaline Phosphatase 126 H Total Protein 5.3 L Albumin 3.0 L Random Vancomycin 31.5 H* Hepatitis A IgM Ab Hep Bs Antigen Hep Bs Antibody Hep B Core Total Ab Hep B Core IgM Ab Hepatitis C Ab (EIA) HIV 1&2 Ab/P24 Ag 4thGn 05/15/24 05/15/24 05/15/24 04:37 04:40 06:18 MCV 94.9 MCH 28.5 MCHC 30.1 L RDW 16.7 H Plt Count 38 L D MPV 11.9 Immature Gran % (Auto) Cancelled Neut % (Auto) Cancelled Lymph % (Auto) Cancelled [place] % (Auto) Cancelled Eos % (Auto) Cancelled Baso % (Auto) Cancelled Lymph # (Auto) Cancelled [place] # (Auto) Cancelled Eos # (Auto) Cancelled Baso # (Auto) Cancelled Abs Immat Gran (auto) Cancelled Absolute Neuts (auto) Cancelled Absolute Nucleated RBC 0.550 H Nucleated RBC % (auto) 2.0 H Neutrophils % (Manual) 6 L Band Neutrophils % 2 L Lymphocytes % (Manual) 8 L Monocytes % (Manual) 3 Metamyelocytes % 45 Myelocytes % 35 Promyelocytes % 1 Abs Neuts (Manual) 2.2 Lymphocytes # (Manual) 2.2 Monocytes # (Manual) 0.8 Metamyelocytes # 12.4 Myelocytes # 9.7 Promyelocytes # 0.3 Nucleated RBCs 4 H Toxic Granulation PRESENT Toxic Vacuolation PRESENT Platelet Estimate DECREASED Large Platelets PRESENT Plt Morphology Comment NOTED RBC Morphology NOTED Basophilic Stippling 1+ (0-2) Tear Drop Cells 3+ (>5) Ovalocytes 1+ (5-14) [place] Cells 1+ (0-2) Acanthocytes (Spur) 2+ (3-5) Schistocytes 1+ (0-2) Smear Path Review O2 Saturation Not Reportable ABG pH at Pt Temp 7.10 L* ABG pCO2 at Pt Temp 24 L ABG pO2 at Pt Temp 114 H ABG HCO3 7 L ABG Base Excess (Actual) -20.1 Anion Gap 39 H Estim Creat Clear Calc 36.2 Estimated GFR 19 POC Glucose 76 Random Glucose 127 H Lactic Acid Lactic Acid F/U @ 2Hr Lactic Acid F/U @ 4Hr 22.8 H* Calcium 5.9 L* D Phosphorus 5.1 H Magnesium 1.7 Total Bilirubin 1.9 H AST 4525 H ALT 3523 H Alkaline Phosphatase 196 H Total Protein 4.4 L Albumin 2.2 L Random Vancomycin Hepatitis A IgM Ab Hep Bs Antigen Hep Bs Antibody Hep B Core Total Ab Hep B Core IgM Ab Hepatitis C Ab (EIA) HIV 1&2 Ab/P24 Ag 4thGn 05/15/24 08:30 MCV MCH MCHC RDW Plt Count MPV Immature Gran % (Auto) Neut % (Auto) Lymph % (Auto) [place] % (Auto) Eos % (Auto) Baso % (Auto) Lymph # (Auto) [place] # (Auto) Eos # (Auto) Baso # (Auto) Abs Immat Gran (auto) Absolute Neuts (auto) Absolute Nucleated RBC Nucleated RBC % (auto) Neutrophils % (Manual) Band Neutrophils % Lymphocytes % (Manual) Monocytes % (Manual) Metamyelocytes % Myelocytes % Promyelocytes % Abs Neuts (Manual) Lymphocytes # (Manual) Monocytes # (Manual) Metamyelocytes # Myelocytes # Promyelocytes # Nucleated RBCs Toxic Granulation Toxic Vacuolation Platelet Estimate Large Platelets Plt Morphology Comment RBC Morphology Basophilic Stippling Tear Drop Cells Ovalocytes [place] Cells Acanthocytes (Spur) Schistocytes Smear Path Review O2 Saturation ABG pH at Pt Temp ABG pCO2 at Pt Temp ABG pO2 at Pt Temp ABG HCO3 ABG Base Excess (Actual) Anion Gap Estim Creat Clear Calc Estimated GFR POC Glucose Random Glucose Lactic Acid Lactic Acid F/U @ 2Hr Lactic Acid F/U @ 4Hr Calcium Phosphorus Magnesium Total Bilirubin AST ALT Alkaline Phosphatase Total Protein Albumin Random Vancomycin 22.4 H Hepatitis A IgM Ab Hep Bs Antigen Hep Bs Antibody Hep B Core Total Ab Hep B Core IgM Ab Hepatitis C Ab (EIA) HIV 1&2 Ab/P24 Ag 4thGn Microbiology Microbiology Results: Microbiology 05/14/24 04:40 Blood Culture - Preliminary Blood - Central Line Prelim: GNR Gram Stain only 05/13/24 09:34 Blood Culture - Final Blood - Central Line 05/13/24 15:19 Blood Culture - Preliminary Blood - Venous Gram negative daniela 05/13/24 15:19 Blood Culture - Preliminary Blood - Venous No growth after 24 hours. Procedures Date of Service Date of Service: 05/16/24 Arterial Line Size (Gauge): 20 Progress Note: A&P Assessment and plan (1) Ischemic bowel disease: Status: Acute Assessment and Plan: CT showing long segment of thickened small bowel, ischemic appearing with likely point of perforation no free air now in multiorgan failure surgical intervention will be futile I have had multiple discussions with Mercedes, his HCP prognosis extremely grim Time Spent With Patient Time: Total time managing care of this patient today ____ minutes. Quality Stroke Does the patient have a stroke diagnosis?: No VTE Prior VTE?: Yes VTE Risk Level:: Medical - moderate - high VTE Device Contraindication: N/A - Device Ordered VTE Drug Contraindication: Treatment Not Tolerated
[2024-05-15] MEDS: fentaNYL citrate/NS 1,000 MCG/100 ML PLAST..BAG 10 MCG IVCONT (11:57)
[2024-05-15] MEDS: Magnesium Sulfate/D5W 1 GM/100 ML PIGGYBACK IV (13:33)
--- NOTE | 2024-05-15 13:43 | P.ACPN_ITS ---
Advanced Care Planning Note Advanced Care Planning Note Discussed with: family member(s) Time spent (in minutes): 30 Narrative: of note, Mr. Anand's partner and healthcare proxy Mercedes at bedside this AM; I introduced myself and offered updates and clarifications; we discussed Mr. Anand's profoundly critical and guarded clinical status; we discussed that due to his clinical status, he is unfortunately not a candidate for surgery; furthermore, given we are unable to surgically intervene, Mr. Anand will likely from profound septic shock and multi-system organ failure from his bowel perforation; I expressed that Mr. Anand may at any moment and encouraged Mercedes to contact any loved ones who would like to see Mr. Anand to come as soon as possible; Mercedes expressed that Mr. Anand has a daughter in [place] who is aware of his status, though otherwise has no other loved ones; lastly, we discussed the unfortunately little demonstrated neurological benefit of performing CPR on patients suffering cardiac arrest not due to myocardial ischemia; Mercedes expres sed understanding of this, however Mr. Anand remains full code Problems Discussed (1) Ischemic bowel disease:
[2024-05-15] MEDS: Fluconazole in NaCl,Iso-Osm 200 MG/100 ML PIGGYBACK 100 MG IV (16:23)
[2024-05-15] MEDS: Bumetanide 25 MG in Container,Empty 0 ML 8 MG IVCONT (17:24)
[2024-05-15 18:08] LABS: ABG Base Excess -18.4 mmol/L; ABG HCO3 8 mmol/L (22-26); ABG pCO2 24 mmHg (32-45); ABG pH 7.14 (7.35-7.45); ABG pO2 102 mmHg (83-108)
[2024-05-15 18:57] LABS: Anion Gap 35 (12-20); Blood Urea Nitrogen 73 mg/dL (9-16); Calcium 8.2 mg/dL (8.4-10.2); Carbon Dioxide 10 mmol/L (22-29); Chloride 101 mmol/L (96-108); Creatinine Clr Calc Pharmacy 37.2; Estimated Glomerular Filt Rate 19; Glucose Random 183 mg/dL (60-115); Magnesium 1.8 mg/dL (1.6-2.6); Potassium 5.2 mmol/L (3.3-5.1); Sodium 141 mmol/L (135-145)
[2024-05-15 20:20] LABS: Reflex Lactate? Lactic Acid Added
[2024-05-15 21:34] LABS: ~Lactic Acid-LAB USE ONLY 22.8 mmol/L (0.5-2.0)
[2024-05-15] MEDS: Parenteral Nutrition 2,040 ML 85 ML IV (21:51)
[2024-05-15 22:22] LABS: ABG Refer to POC result
[2024-05-15 22:36] LABS: Reflex Lactate? 2 Y
[2024-05-15 23:22] LABS: ~Lactic Acid-LAB USE ONLY 22.9 mmol/L (0.5-2.0)
[2024-05-16] VITALS (52 sets, daily range): BP systolic 49–98; BP diastolic 16–31; PULSE 90–109; RESP 25–26; TEMP 34.9–37.1; O2SAT 95; BMI 40.8
[2024-05-16] MEDS: Calcium Chloride 1 GM/10 ML SYRINGE IVPUSH ×5 (01:03→18:12)
[2024-05-16] MEDS: Phenylephrine HCL 100 MG in 0.9 % Sodium Chloride 250 ML 103.33 MG IVCONT ×8 (01:08→18:49)
[2024-05-16] MEDS: Vasopressin 20 UNIT/100 ML INFUS..BTL 12 UNIT IVCONT ×3 (01:14→16:29)
[2024-05-16] MEDS: Sodium Bicarbonate 8.4% 150 MEQ in Dextrose 5 % 850 ML IV ×2 (01:18→08:18)
[2024-05-16] MEDS: Bumetanide 25 MG in Container,Empty 0 ML 8 MG IVCONT (02:30)
[2024-05-16] MEDS: Norepinephrine Bitartrate/NS 32 MG/250 ML PLAST..BAG 51.75 MG IVCONT ×4 (03:30→18:48)
--- NOTE | 2024-05-16 04:36 | PC.NURSE ---
CARE ASSUMED 7PM... PER SHIFT REPORT PATIENT UNRESPONSIVE..EXTREMETIES FLACCID..NO GAG/COUGH REFLEXES..RR CONTROLLED ON AC SETTINGS...FENTANYL WEANED FROM 100 TO 10 MCG/HR W/O CHANGE..PROVIDER AWARE..TO MAINTAIN FENTANYL 10 MCG/HR PER PROVIDER....EXTREMETIES COLD..NAILBEDS CYANOTIC..UNABLE TO OBTAIN SAO2 WAVEFORM....HS GAS REVIEWED BY PROVIDER...RIGHT FEMORAL ARTERIAL LINE CORRELATES WITH NIBP CUFF...SBP 60'S-72 AT HS...BP CURRENTLY RUNNING 52/22...VASOPRESSIN/HIGH CONCENTRATION LEVOPHED AND PHENYLEPHRINE DRIPS AT MAX RATES...BICARB DRIP 150 CC/HR....TPN 85 CC/HR...BUMEX DRIP 2 MG/HR...NO MEASURABLE OUTPUT VIA KNOWLES...ABDOMEN DISTENDED FIRM AND SILENT....NG-TUBE WITH THICK BILIOUS BROWN DRAINAGE...STAURDAY TO NOW FLUID BALANCE APPROX 33-34 LITERS (+)...ANASARCA PRESENT..SCLERAL EDEMA PRESENT....LARGE BLISTER TO RIGHT LATERAL ABDOMEN PRESENT AT SHIFT CHANGE WHICH SUBSEQUENTLY DRAINED SEROUS FLUID..DRESSING APPLIED TO AREA..PROVIDER AWARE...MONITOR SINUS TACH VS ACCELERATED JR HR 100'S..AFEBRILE
[2024-05-16] MEDS: Piperacillin Sodium/Tazobactam 4.5 GM in 0.9 % Sodium Chloride 100 ML IV ×2 (05:04→13:03)
[2024-05-16 05:33] LABS: ABG Base Excess -20.7 mmol/L; ABG HCO3 7 mmol/L (22-26); ABG pCO2 25 mmHg (32-45); ABG pH 7.06 (7.35-7.45); ABG pO2 101 mmHg (83-108)
[2024-05-16 05:38] LABS: ABG Refer to POC result
[2024-05-16] MEDS: Pantoprazole Sodium 40 MG/10 ML VIAL IVPUSH (05:42)
[2024-05-16 05:54] LABS: Hematocrit 25.1 % (42.0-52.0); Hemoglobin 7.9 g/dl (14.0-18.0); Mean Corpuscular HGB Conc 31.5 g/dl (31.0-36.0); Mean Corpuscular Hemoglobin 29.7 pg (27.0-33.0); Mean Corpuscular Volume 94.4 fL (80.0-98.0); Red Blood Count 2.66 X10*6/uL (4.60-5.80); Red Cell Distribution Width 17.3 % (11.0-16.0)
[2024-05-16 06:00] LABS: NRBC Pct Auto 4.6 /100WBC (0.0-0.2); Platelet Count 18 X10*3/uL (160-400); WBC ABN SCTR FOR CBC 1
[2024-05-16] MEDS: Hydrocortisone Sod Succ/PF 100 MG VIAL IVPUSH ×2 (06:05→14:44)
[2024-05-16 06:11] LABS: Anion Gap 40 (12-20); Blood Urea Nitrogen 83 mg/dL (9-16); Calcium 7.1 mg/dL (8.4-10.2); Carbon Dioxide 7 mmol/L (22-29); Chloride 97 mmol/L (96-108); Creatinine Clr Calc Pharmacy 34.4; Estimated Glomerular Filt Rate 16; Glucose Random 223 mg/dL (60-115); Magnesium 1.7 mg/dL (1.6-2.6); Phosphorus 6.2 mg/dL (2.7-4.5); Potassium 5.3 mmol/L (3.3-5.1); Sodium 139 mmol/L (135-145)
[2024-05-16 06:22] LABS: Band Neutrophils Percent 3 % (3-5); Lymphocytes Percent Manual 6 % (20-40); Metamyelocytes Percent 36 %; Monocytes Percent Manual 5 % (2-11); Myelocytes Percent 10 %; Neutrophils Percent Manual 39 % (45-73); Nucleated Red Blood Cells 4 /100WBC (0-0); Platelet Estimate DECREASED (NORMAL); Promyelocytes Percent 1 %; RBC Morphology NOTED
[2024-05-16 06:23] LABS: Acanthocytes 1+ (0-2) /OIF; Basophilic Stippling 1+ (0-2) /OIF; Burr Cells 1+ (0-2) /OIF; Large Platelet PRESENT; Platelet Morphology Comment NOTED; Schistocytes 1+ (0-2) /OIF; Tear Drop Cells 2+ (3-5) /OIF
[2024-05-16 06:24] LABS: Dohle Bodies PRESENT; Smudge Cells PRESENT; Toxic Granulation PRESENT
[2024-05-16] MEDS: Sodium Bicarbonate 8.4% 50 MEQ/50 ML SYRINGE IVPUSH ×2 (06:32→07:52)
[2024-05-16] MEDS: 0.9 % Sodium Chloride Flush 3 ML SYRINGE IVFLUSH ×2 (07:50→15:51)
[2024-05-16 07:52] LABS: Vancomycin Random 17.7 mcg/mL (15-20)
--- NOTE | 2024-05-16 08:20 | P.PNCC_ITS ---
Subjective Subjective Date of Service: 05/16/24 Interval History: persistent critical and exceedingly guarded clinical status Critical Care Time (minutes): 60 Physical Exam 2 Vital Signs: Vital Signs: Last Vital Signs Temp 98.1 F 05/16/24 08:00 Pulse 107 H 05/16/24 08:00 Resp 25 H 05/16/24 08:00 BP 54/23 L 05/16/24 08:00 Pulse Ox 95 05/16/24 08:00 O2 Del Method Mechanical Ventil ation 05/16/24 08:00 O2 Flow Rate 50 05/15/24 23:00 FiO2 50 05/16/24 08:03 BMI result Body Mass Index 40.8 Const: Other: intubated, minimally sedated; no appreciable spontaneous movements HEENT: Head: Yes normal to inspection, Yes normocephalic and Yes atraumatic Eyes: General: appearance normal, both eyes and all related structures Neck: Neck: Yes normal visual inspection, Yes full ROM, Yes no meningeal signs, Yes trachea midline and Yes supple Chest: Chest palpation & inspection: normal inspection of the chest Resp: Other: no appreciable rales, rhonchi, wheezing Effort & Inspection: normal respiratory effort Cardio: Rate: tachycardic Rhythm: regular rhythm GI: Other: distended, firm, hypoactive bowel sounds Skin: General skin exam: no rashes or lesions noted Neuro: General: tone normal and no meningeal signs Extrem: Other: cool, delayed capillary refill; 1+ pitting edema to bilateral shins Psych: Other: unable to assess Objective Data Labs 05/16/24 05:21 05/16/24 05:21 Labs: Laboratory Results - last 24 hr 05/14/24 05/15/24 05/15/24 04:41 08:30 17:57 RBC Hgb Hct MCV MCH MCHC RDW Plt Count MPV Immature Gran % (Auto) Neut % (Auto) Lymph % (Auto) [place] % (Auto) Eos % (Auto) Baso % (Auto) Lymph # (Auto) [place] # (Auto) Eos # (Auto) Baso # (Auto) Abs Immat Gran (auto) Absolute Neuts (auto) Absolute Nucleated RBC Nucleated RBC % (auto) Neutrophils % (Manual) Band Neutrophils % Lymphocytes % (Manual) Monocytes % (Manual) Metamyelocytes % Myelocytes % Promyelocytes % Nucleated RBCs Smudge Cells Toxic Granulation Dohle Bodies Platelet Estimate Large Platelets Plt Morphology Comment RBC Morphology Basophilic Stippling Tear Drop Cells [place] Cells Acanthocytes (Spur) Schistocytes Smear Path Review SEE NOTE O2 Saturation Not Reportable ABG pH at Pt Temp 7.14 L* ABG pCO2 at Pt Temp 24 L ABG pO2 at Pt Temp 102 ABG HCO3 8 L ABG Base Excess (Actual) -18.4 Sodium Potassium Chloride Carbon Dioxide Anion Gap BUN Creatinine Estim Creat Clear Calc Estimated GFR Random Glucose Lactic Acid Lactic Acid F/U @ 2Hr Lactic Acid F/U @ 4Hr Calcium Phosphorus Magnesium Albumin Random Vancomycin 22.4 H 05/15/24 05/15/24 05/15/24 18:17 20:29 22:48 RBC Hgb Hct MCV MCH MCHC RDW Plt Count MPV Immature Gran % (Auto) Neut % (Auto) Lymph % (Auto) [place] % (Auto) Eos % (Auto) Baso % (Auto) Lymph # (Auto) [place] # (Auto) Eos # (Auto) Baso # (Auto) Abs Immat Gran (auto) Absolute Neuts (auto) Absolute Nucleated RBC Nucleated RBC % (auto) Neutrophils % (Manual) Band Neutrophils % Lymphocytes % (Manual) Monocytes % (Manual) Metamyelocytes % Myelocytes % Promyelocytes % Nucleated RBCs Smudge Cells Toxic Granulation Dohle Bodies Platelet Estimate Large Platelets Plt Morphology Comment RBC Morphology Basophilic Stippling Tear Drop Cells [place] Cells Acanthocytes (Spur) Schistocytes Smear Path Review O2 Saturation ABG pH at Pt Temp ABG pCO2 at Pt Temp ABG pO2 at Pt Temp ABG HCO3 ABG Base Excess (Actual) Sodium 141 Potassium 5.2 H Chloride 101 Carbon Dioxide 10 L* D Anion Gap 35 H BUN 73 H Creatinine 3.49 H Estim Creat Clear Calc 37.2 Estimated GFR 19 Random Glucose 183 H Lactic Acid 22.0 H* Lactic Acid F/U @ 2Hr 22.8 H* Lactic Acid F/U @ 4Hr 22.9 H* Calcium 8.2 L D Phosphorus 6.0 H Magnesium 1.8 Albumin Random Vancomycin 05/16/24 05/16/24 05:21 05:23 RBC 2.66 L Hgb 7.9 L Hct 25.1 L MCV 94.4 MCH 29.7 MCHC 31.5 RDW 17.3 H Plt Count 18 L* D MPV 13.0 H Immature Gran % (Auto) Cancelled Neut % (Auto) Cancelled Lymph % (Auto) Cancelled [place] % (Auto) Cancelled Eos % (Auto) Cancelled Baso % (Auto) Cancelled Lymph # (Auto) Cancelled [place] # (Auto) Cancelled Eos # (Auto) Cancelled Baso # (Auto) Cancelled Abs Immat Gran (auto) Cancelled Absolute Neuts (auto) Cancelled Absolute Nucleated RBC 1.080 H Nucleated RBC % (auto) 4.6 H Neutrophils % (Manual) 39 L Band Neutrophils % 3 Lymphocytes % (Manual) 6 L Monocytes % (Manual) 5 Metamyelocytes % 36 Myelocytes % 10 Promyelocytes % 1 Nucleated RBCs 4 H Smudge Cells PRESENT Toxic Granulation PRESENT Dohle Bodies PRESENT Platelet Estimate DECREASED Large Platelets PRESENT Plt Morphology Comment NOTED RBC Morphology NOTED Basophilic Stippling 1+ (0-2) Tear Drop Cells 2+ (3-5) [place] Cells 1+ (0-2) Acanthocytes (Spur) 1+ (0-2) Schistocytes 1+ (0-2) Smear Path Review O2 Saturation Not Reportable ABG pH at Pt Temp 7.06 L* ABG pCO2 at Pt Temp 25 L ABG pO2 at Pt Temp 101 ABG HCO3 7 L ABG Base Excess (Actual) -20.7 Sodium 139 Potassium 5.3 H Chloride 97 Carbon Dioxide 7 L* D Anion Gap 40 H BUN 83 H Creatinine 3.95 H Estim Creat Clear Calc 34.4 Estimated GFR 16 Random Glucose 223 H Lactic Acid Lactic Acid F/U @ 2Hr Lactic Acid F/U @ 4Hr Calcium 7.1 L D Phosphorus 6.2 H Magnesium 1.7 Albumin 2.0 L Random Vancomycin 17.7 Microbiology Microbiology Results: Microbiology 05/13/24 15:19 Blood - Venous Blood Culture - Final Serratia fonticola 05/13/24 15:19 Blood - Venous Blood Culture - Preliminary No growth after 48 hours. 05/14/24 04:40 Blood - Central Line Blood Culture - Preliminary Prelim: GNR Gram Stain only 05/13/24 09:34 Blood - Central Line Blood Culture - Final 04/25/24 22:17 Blood - Venous Blood Culture - Final No growth after 5 days. 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, initially presenting to emergency department on 04/26 w/ nausea/vomiting, found to have small bowel obstruction, admitted to floor; on 05/13, patient developed shock, admitted ICU, found to have bowel perforation; ICU course c/b acute respiratory failure, s/p intubation and profound shock necessitating 3 vasopressors; patient unfortunately hemodynamically unstable for surgical intervention N: intubated, sedated w/ fentanyl gtt, wean as tolerated CV: profound septic shock, on norepinephrine, vasopressin, and phenylephrine gtt, wean as tolerated, calcium and bicarbonate bolus as needed R: intubated, wean as tolerated GI: small bowel obstruction c/b perforation, unfortunately hemodynamically unstable for surgical intervention, appreciate surgery recommendations; shock liver, to monitor : acute renal insufficiency, to closely monitor renal indices, replete electrolytes; diuresis as tolerated H: leukocytosis in setting of septic shock; anemia, thrombocytopenia, likely d/t bone marrow suppression in setting of critical illness, transfuse as needed; prior DVT and PE previously on rivaroxaban, to hold when platelets less than 50 ID: in setting of profound septic shock, on vancomycin, zosyn, and fluconazole E: to monitor hypo-/hyper-glycemia S: ongoing discussions regarding patient's guarded and critical clinical status w/ patient's partner, Mercedes Barajas Stroke Does the patient have a stroke diagnosis?: No VTE Prior VTE?: Yes VTE Risk Level:: Medical - moderate - high VTE Device Contraindication: N/A - Device Ordered VTE Drug Contraindication: Treatment Not Tolerated
[2024-05-16] MEDS: vancomycin HCL 500 MG in 0.9 % Sodium Chloride 100 ML 110 MG IV (08:22)
[2024-05-16] MEDS: Magnesium Sulfate/D5W 1 GM/100 ML PIGGYBACK IV (08:40)
--- NOTE | 2024-05-16 08:46 | HE.PHANOTE ---
Re: Angel Renal function continues to decline. Trough returned at 17.7. Giving a one time dose of 500mg with predicted AUC 477, predicted 16.5. Next trough 05/17 @ 0600.
--- NOTE | 2024-05-16 09:43 | MHC.CM.PN ---
Pt intubated, on pressor support with poor BP & CO a/e/b dusky, cold extremities and poor peripheral pulses. Pt's HCP/s.cintia Lawrencee aware of pt's terminal status but is not able to change pt's code status. CM to follow
[2024-05-16 09:53] LABS: Lymphocytes Absolute Manual 1.4 X10*3/uL (1.2-4.9); Metamyelocytes Absolute 8.5 X10*3/uL; Monocytes Absolute Manual 1.2 X10*3/uL (0.1-1.2); Myelocytes Absolute 2.4 X10*/uL; Neutrophils Absolute Manual 9.9 X10*3/uL (2.0-8.3); Promyelocytes Absolute 0.2 X10*3/uL; White Blood Count 23.5 X10*3/uL (4.8-10.8)
--- NOTE | 2024-05-16 10:05 | MHC.CLN ---
F/U CONTINUES NPO WITH TPN PROGNOSIS POOR PER MD DISCUSSED AT ROUNDS WITH MD PHARMACY AWARE CONTINUE TPN AT MAX GOAL RATE OF 85 ML PER HOUR WITH 76 G LIPIDS PROVIDES 2208 TOTAL KCALS (24.8 KCALS/KG IBW), 102 G PROTEIN (1.15 G/KG IBW), 306 G DEXTROSE REPLETE LYTES NEEDED FOLLOWING WITH TEAM
[2024-05-16] MEDS: fentaNYL citrate/NS 1,000 MCG/100 ML PLAST..BAG 1 MCG IVCONT (13:45)
--- NOTE | 2024-05-16 14:32 | PC.NURSE ---
Addendum entered by Yaneth Ruiz RN 05/16/24 19:30: 18:37 This RN at bedside. Patient blood pressure decreased via arterial line MAP was 30 consistently this shift. MAP decreased to 26. Pulse present. HR 91. This RN communicated to other TEST DIRECTOR to call MD for blood pressure change. 18:38 rhythm changed rapidly to asystole. No pulse present. Dalton garcia called overhead and CPR initiated. See Code blue sheet documentation. Next of kin Mercedes HCP notified by Noelle ARECHIGA Patient URIAH case opened 05/13 case# [id number]. Declined per previous RN note. Mercedes HCP at bedside. Next RN given report. Original Note: 07:00 Assumed care of patient. Pt unresponsive, -cough, - gag Pressor requirements: Levophed 4x concentration maxed @ 1 mcg/kg/min, Phenylephrine 5x concentrated maxed @ 6 mcg/kg/min, Vasopressin @0.04. Aterial line in place to right femoral, system leveled and zeroed. MAPs low ~30-35. MD aware. 08:00 HCP Mercedes visited pt at bedside. updated HCP, provided clarification to questions 09:30 Wound RN at bedside to assess pt skin to b/l lower abdomen and groin area. Pt has blisters to skin opening with any friction or shear. Per wound RN, apply xeroform and adb pad dressings to area. 10:00 Partial (front) bed bath provided. Pt remains too unstable to do full turn and roll. Microturns utilized. 1 units PLT given per orders. 12:00 notified that pt remains aneuric, no burns output. 13:40 Bicarb gtt and Bumex gtt discontinued per MD. Pt continues to receive TPN nutrition, Fentanyl @10 mcg/hr for pain control, and vasopressor support
[2024-05-16] MEDS: Chlorhexidine Gluc Oral Rinse 15 ML MOUTHWASH BUCCAL (14:44)
--- NOTE | 2024-05-16 14:59 | HO.WOUND ---
Wound Consult: Initial 53yr old?[place] [facility] [place] - See progress notes and H&P for detailed history.? While performing Prevalence and Incidence I was informed patient remains unstable to perform skin assessment however his abdomen is accessible and of concern with intact and unroofed bulla. See below for pictures and details. ? Left Abdomen Right Abdomen Etiology: ??Intact and unroofed Bulla suspect from fluid shift into tissue Wound Bed: Right Abd with epidermal sloughing noted revealing pink clean tissue, other areas remains intact bulla with fluctuance noted and concern for unroofing Drainage / Odor: yellow serous fluid - no odor Edges: irregular ? Joy wound: swelling and firm tissue Pain: intubated and sedated Goals of Treatment: ? Xeroform to allow for moist wound bed and aid in pain control and protect from friction. Cover with dry flow pad for drainage management Recommendations: 1. Turn and Reposition every 2 hours and as needed for patient comfort.? Use pillows or wedges to support off loading positions. 2. Off Load all bony prominences with use of pillows and heel boots if needed.? Apply Preventative foams where needed. ? 3. Monitor for incontinence and moisture control, use barrier creams when needed for prevention and treatment. 4. Provide adequate and supplemental nutrition.? 5. Continue low air loss mattress. 6. When applicable maintain blood glucose levels per Providers order. 7. Abdomen and Inner Thighs - Apply single layer xeroform, or skin prep to intact bulla. May cover with Dry flow pad for drainage absorption. Change daily and PRN. Re-consult wound care Nurse for wound deterioration or wound changes.
--- NOTE | 2024-05-16 15:35 | P.PNGS_ITS ---
Subjective Subjective Date of Service: 05/22/24 Interval history: Remains on the ventilator Still requiring multiple pressor BP systolic in the 40s and 50s Physical Exam 2 Vital Signs: Vital Signs: Last Vital Signs Temp 98.1 F 05/16/24 13:27 Pulse 98 05/16/24 15:32 Resp 26 H 05/16/24 15:00 BP 51/18 L 05/16/24 15:32 Pulse Ox 95 05/16/24 08:00 O2 Del Method Mechanical Ventil ation 05/16/24 14:00 O2 Flow Rate 50 05/15/24 23:00 FiO2 50 05/16/24 15:13 BMI result Body Mass Index 40.8 Const: Other: Ventilator dependent Resp: Other: On ventilator GI: Inspection: Yes distended Palpation (GI): no guarding Objective Data Active Medications Calcium Chloride (Calcium Chloride 1 Gm/10 Ml Syringe) 1 gm IVPUSH Q6H [facility] Last Admin: 05/16/24 13:03 Dose: 1 gm Documented By: JOSEPH Chlorhexidine Gluconate (Chlorhexidine Gluc Oral Rinse 15 Ml Mouthwash) 15 ml BUCCAL TID [facility] Last Admin: 05/16/24 14:44 Dose: 15 ml Documented By: JOSEPH Heparin Sodium (Porcine) (Heparin Sodium,Porcine 5,000 Unit/Ml Vial) 5,000 unit SUBCUT Q8H [facility] Last Admin: 05/15/24 06:38 Dose: Not Given Documented By: XU Non-Admin Reason: Physician Held Med Hydrocortisone Sodium Succinate (Hydrocortisone Sod Succ/Pf 100 Mg Vial) 100 mg IVPUSH Q8H [facility] Last Admin: 05/16/24 14:44 Dose: 100 mg Documented By: JOSEPH Fentanyl (Sublimaze/Ns) 1,000 mcg in 100 mls @ 0 mls/hr IVCONT .Q0M [facility]; Protocol Last Admin: 05/16/24 13:45 Dose: 10 mcg/hr, 1 mls/hr Documented By: JOSEPH Vasopressin (Vasostrict) 20 unit in 100 mls @ 12 mls/hr IVCONT .Q8H20M [facility] Last Admin: 05/16/24 08:43 Dose: 0.04 unit/min, 12 mls/hr Documented By: JOSEPH Phenylephrine HCl 100 mg/ (Sodium Chloride) 260 mls @ 0 mls/hr IVCONT .Q0M [facility]; Protocol Last Admin: 05/16/24 13:41 Dose: 6 mcg/kg/min, 103.33 mls/hr Documented By: JOSEPH Co-signed By: RAYMOND Norepinephrine Bitartrate (Levophed) 32 mg in 250 mls @ 0 mls/hr IVCONT .Q0M [facility]; Protocol Last Admin: 05/16/24 13:43 Dose: 1 mcg/kg/min, 51.75 mls/hr Documented By: JOSEPH Co-signed By: RAYMOND Fluconazole (Diflucan) 200 mg in 100 mls @ 100 mls/hr IV Q24H [facility] Last Infusion: 05/15/24 17:22 Dose: Infused Documented By: ADRIAN Dextrose (D10) 250 mls @ 750 mls/hr IV Q15M PRN PRN Reason: per Hypoglycemia Standing Ord. Last Infusion: 05/15/24 06:42 Dose: Infused Documented By: XU Piperacillin Sod/Tazobactam (Sod 4.5 gm/ Sodium Chloride) 100 mls @ 200 mls/hr IV Q8H [facility] Last Infusion: 05/16/24 13:40 Dose: Infused Documented By: JOSEPH Nutrition (Parenteral) (Parenteral Nutrition) 2,040 mls @ 85 mls/hr IV .Q24H [facility]; Protocol Stop: 05/16/24 20:59 Last Admin: 05/15/24 21:51 Dose: 85 mls/hr Documented By: JILLIAN Vancomycin HCl 500 mg/ Sodium (Chloride) 110 mls @ 110 mls/hr IV Q24H [facility] Nutrition (Parenteral) (Parenteral Nutrition) 2,040 mls @ 85 mls/hr IV .Q24H [facility]; Protocol Stop: 05/17/24 20:59 Naloxone HCl (Naloxone Hcl 0.4 Mg/Ml Vial) 0.2 mg IVPUSH Q2M PRN PRN Reason: Excessive sedation or RR < 8 Pantoprazole Sodium (Pantoprazole Sodium 40 Mg/10 Ml Vial) 40 mg IVPUSH DAILY@0630 [facility] Last Admin: 05/16/24 05:42 Dose: 40 mg Documented By: JILLIAN Pharmacy Consult (Consult Rx Parenteral Nutrition Ordering) 1 each MISCELLANE DAILY PRN PRN Reason: Consult order Pharmacy Consult (Consult Rx Vancomycin Dosing) 1 each MISCELLANE DAILY PRN PRN Reason: Consult order Sodium Chloride (0.9 % Sodium Chloride Flush 3 Ml Syringe) 3 ml IVFLUSH QSHIFT [facility] Last Admin: 05/16/24 07:50 Dose: 3 ml Documented By: JOSEPH Labs 05/16/24 05:21 05/16/24 18:32 Labs: Laboratory Results - last 24 hr 05/15/24 05/15/24 05/15/24 17:57 18:17 20:29 MCV MCH MCHC RDW Plt Count MPV Immature Gran % (Auto) Neut % (Auto) Lymph % (Auto) [place] % (Auto) Eos % (Auto) Baso % (Auto) Lymph # (Auto) [place] # (Auto) Eos # (Auto) Baso # (Auto) Abs Immat Gran (auto) Absolute Neuts (auto) Absolute Nucleated RBC Nucleated RBC % (auto) Neutrophils % (Manual) Band Neutrophils % Lymphocytes % (Manual) Monocytes % (Manual) Metamyelocytes % Myelocytes % Promyelocytes % Abs Neuts (Manual) Lymphocytes # (Manual) Monocytes # (Manual) Metamyelocytes # Myelocytes # Promyelocytes # Nucleated RBCs Smudge Cells Toxic Granulation Dohle Bodies Platelet Estimate Large Platelets Plt Morphology Comment RBC Morphology Basophilic Stippling Tear Drop Cells Louis Cells Acanthocytes (Spur) Schistocytes O2 Saturation Not Reportable ABG pH at Pt Temp 7.14 L* ABG pCO2 at Pt Temp 24 L ABG pO2 at Pt Temp 102 ABG HCO3 8 L ABG Base Excess (Actual) -18.4 Anion Gap 35 H Estim Creat Clear Calc 37.2 Estimated GFR 19 Random Glucose 183 H Lactic Acid 22.0 H* Lactic Acid F/U @ 2Hr 22.8 H* Lactic Acid F/U @ 4Hr Calcium 8.2 L D Phosphorus 6.0 H Magnesium 1.8 Albumin Random Vancomycin Blood Type Antibody Screen 05/15/24 05/16/24 05/16/24 22:48 05:21 05:23 MCV 94.4 MCH 29.7 MCHC 31.5 RDW 17.3 H Plt Count 18 L* D MPV 13.0 H Immature Gran % (Auto) Cancelled Neut % (Auto) Cancelled Lymph % (Auto) Cancelled [place] % (Auto) Cancelled Eos % (Auto) Cancelled Baso % (Auto) Cancelled Lymph # (Auto) Cancelled [place] # (Auto) Cancelled Eos # (Auto) Cancelled Baso # (Auto) Cancelled Abs Immat Gran (auto) Cancelled Absolute Neuts (auto) Cancelled Absolute Nucleated RBC 1.080 H Nucleated RBC % (auto) 4.6 H Neutrophils % (Manual) 39 L Band Neutrophils % 3 Lymphocytes % (Manual) 6 L Monocytes % (Manual) 5 Metamyelocytes % 36 Myelocytes % 10 Promyelocytes % 1 Abs Neuts (Manual) 9.9 H Lymphocytes # (Manual) 1.4 Monocytes # (Manual) 1.2 Metamyelocytes # 8.5 Myelocytes # 2.4 Promyelocytes # 0.2 Nucleated RBCs 4 H Smudge Cells PRESENT Toxic Granulation PRESENT Dohle Bodies PRESENT Platelet Estimate DECREASED Large Platelets PRESENT Plt Morphology Comment NOTED RBC Morphology NOTED Basophilic Stippling 1+ (0-2) Tear Drop Cells 2+ (3-5) Louis Cells 1+ (0-2) Acanthocytes (Spur) 1+ (0-2) Schistocytes 1+ (0-2) O2 Saturation Not Reportable ABG pH at Pt Temp 7.06 L* ABG pCO2 at Pt Temp 25 L ABG pO2 at Pt Temp 101 ABG HCO3 7 L ABG Base Excess (Actual) -20.7 Anion Gap 40 H Estim Creat Clear Calc 34.4 Estimated GFR 16 Random Glucose 223 H Lactic Acid Lactic Acid F/U @ 2Hr Lactic Acid F/U @ 4Hr 22.9 H* Calcium 7.1 L D Phosphorus 6.2 H Magnesium 1.7 Albumin 2.0 L Random Vancomycin 17.7 Blood Type Antibody Screen 05/16/24 09:55 MCV MCH MCHC RDW Plt Count MPV Immature Gran % (Auto) Neut % (Auto) Lymph % (Auto) [place] % (Auto) Eos % (Auto) Baso % (Auto) Lymph # (Auto) [place] # (Auto) Eos # (Auto) Baso # (Auto) Abs Immat Gran (auto) Absolute Neuts (auto) Absolute Nucleated RBC Nucleated RBC % (auto) Neutrophils % (Manual) Band Neutrophils % Lymphocytes % (Manual) Monocytes % (Manual) Metamyelocytes % Myelocytes % Promyelocytes % Abs Neuts (Manual) Lymphocytes # (Manual) Monocytes # (Manual) Metamyelocytes # Myelocytes # Promyelocytes # Nucleated RBCs Smudge Cells Toxic Granulation Dohle Bodies Platelet Estimate Large Platelets Plt Morphology Comment RBC Morphology Basophilic Stippling Tear Drop Cells [place] Cells Acanthocytes (Spur) Schistocytes O2 Saturation ABG pH at Pt Temp ABG pCO2 at Pt Temp ABG pO2 at Pt Temp ABG HCO3 ABG Base Excess (Actual) Anion Gap Estim Creat Clear Calc Estimated GFR Random Glucose Lactic Acid Lactic Acid F/U @ 2Hr Lactic Acid F/U @ 4Hr Calcium Phosphorus Magnesium Albumin Random Vancomycin Blood Type O Positive Antibody Screen NEGATIVE Microbiology Microbiology Results: Microbiology 05/14/24 04:40 Blood Culture - Preliminary Blood - Central Line Gram negative daniela 05/13/24 15:19 Blood Culture - Final Blood - Venous Serratia fonticola 05/13/24 15:19 Blood Culture - Preliminary Blood - Venous No growth after 48 hours. Procedures Date of Service Date of Service: 05/22/24 Arterial Line Size (Gauge): 20 Progress Note: A&P Assessment and plan (1) Ischemic bowel disease: Status: Acute Assessment and Plan: Multi organ failure Requiring multiple pressors BP very low despite pressors Not a surgical candidate Healthcare proxy Mercedes understands Mercedes had decided on DNR issue but convinced by the daughter to do full code Time Spent With Patient Time: Total time managing care of this patient today ____ minutes. Quality Stroke Does the patient have a stroke diagnosis?: No VTE Prior VTE?: Yes VTE Risk Level:: Medical - moderate - high VTE Device Contraindication: N/A - Device Ordered VTE Drug Contraindication: Treatment Not Tolerated
[2024-05-16] MEDS: Fluconazole in NaCl,Iso-Osm 200 MG/100 ML PIGGYBACK 100 MG IV (16:18)
--- NOTE | 2024-05-16 18:47 | PM.DDS ---
Discharge Sum: Prov Provider Primary care physician: Ramiro Stewart MD <Selin Mejia MD - Last Filed: 05/16/24 18:49> Admitting clinician: Tonya Goyal <Noelle Grover NP - Last Filed: 05/16/24 20:13> Attending physician on admission: Dakotah Cadena <Noelle Grover NP - Last Filed: 05/16/24 20:13> Consults: 04/26/24 01:42 Consult to General Surgery Stat Consulting Provider: [facility] [place] [facility] Reason for consultation: high grade SBO, hx long-segment SBO ischemic bowel resection Has provider been notified: No 05/13/24 08:25 Consult to Cardiology Routine Consulting Provider: [facility] [place] Reason for consultation: svt Has provider been notified: No 05/14/24 10:43 Consult to [facility] ([facility]) Stat Consulting Provider: [email or web address] <Selin Mejia MD - Last Filed: 05/16/24 18:49> Pronouncing clinician: Noelle Grover <Selin Mejia MD - Last Filed: 05/16/24 18:49> Arianna Alejandro <Noelle Grover NP - Last Filed: 05/16/24 20:13> Discharge Sum: Diag Contributing Factors (1) Shock: (2) Bowel perforation: (3) Ischemic bowel disease: (4) Small bowel obstruction: Discharge Sum: Summary Date and Time Date of admission: 04/26/24 02:12 <Selin Mejia MD - Last Filed: 05/16/24 18:49> Date of : 05/16/24 <Selin Mejia MD - Last Filed: 05/16/24 18:49> Summary Details: Mr. 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 Anand developed shock and was subsequently admitted to the ICU, and found to have imaging concerning for bowel perforation; Mr. Anand's ICU course was complicated by profound shock necessitating 3 vasopressors and complicated by respiratory failure, for which he was intubated, renal failure, and hepatic failure; unfortunately Mr. Anand's hemodynamic and clinical status precluded surgical intervention; Mr. Anand's persistent guarded hemodynamic and clinical status were discussed with his partner and healthcare proxy, Mercedes, throughout his ICU stay; on 05/16, Mr. Anand suffered a cardiac arrest <Selin Mejia MD - Last Filed: 05/16/24 18:49> Mr. 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 Anand developed shock and was subsequently admitted to the ICU, and found to have imaging concerning for bowel perforation; Mr. Anand's ICU course was complicated by profound shock necessitating 3 vasopressors and complicated by respiratory failure, for which he was intubated, renal failure, and hepatic failure; unfortunately Mr. Anand's hemodynamic and clinical status precluded surgical intervention; Mr. Anand's persistent guarded hemodynamic and clinical status were discussed with his partner and healthcare proxy, Mercedes, throughout his ICU stay; on 05/16, Mr. Anand suffered a cardiac arrest. CPR and ACLS protocol were initiated. 4 rounds of epinephrine were administered; unable to achieve ROSC. ?ACLS measures were terminated at 19:01.? The patient was pulseless showing asystole on the monitor.? Absent peripheral pulses.? Pupils fixed and dilated.? Absent heart sounds and no spontaneous breathing. The patient's HCP, Mercedes Collado arrived at 19:45. The patient is not a medical exam candidate.? Organ donation was notified by nursing. <Noelle Grover NP - Last Filed: 05/16/24 20:13> Additional Data Confirmation of as documented by pronouncing clinician: no pulse, no respirations, no heart sounds, pupils fixed and dilated and other <Selin Mejia MD - Last Filed: 05/16/24 18:49> Attending physician: Fernie Flores MD <Selin Mejia MD - Last Filed: 05/16/24 18:49>
[2024-05-16 19:28] LABS: Chloride 98 mmol/L (96-108)
[2024-05-16 19:29] LABS: Albumin Level 1.7 g/dL (3.5-5.0); Anion Gap 38 (12-20); Blood Urea Nitrogen 81 mg/dL (9-16); Calcium 8.6 mg/dL (8.4-10.2); Carbon Dioxide 7 mmol/L (22-29); Creatinine Clr Calc Pharmacy 32.9; Estimated Glomerular Filt Rate 15; Glucose Random 199 mg/dL (60-115); Potassium 6.3 mmol/L (3.3-5.1); Sodium 137 mmol/L (135-145)
--- NOTE | 2024-05-16 19:54 | PC.NURSE ---
Addendum entered by Gordy Dutta RN 05/16/24 21:35: post mortem care given...[place] [facility] [place]: [facility] updated r/t expiration...previously notified per note 05/13 case #[id number] and organ donation declined....per gema at [facility] case declined and file closed...notified at 19:36....partner/proxy monica at bedside...per monica patient'sister rebecca to arrive to see patient
[2024-05-17 07:39] LABS: Glucose, Whole Blood 237 mg/dL (60-115)
== END 2024-05-16 21:34 | disposition expired | DRG 247 ==
LOC: HO.ED 04-26 02:35 → HO.EDOVER 04-26 03:47 → HO.S3 04-26 19:03 → HO.ICU 05-13 09:38
PROVIDERS: Family Medicine; Hospitalist; Internal Medicine; Internal Medicine Critical Care Medicine; Nurse Practitioner Family; Physician Assistant Medical; Student in an Organized Health Care Education/Training Program; Admitting Provider Physician Assistant; Emergency Provider Emergency Medicine; PCP Internal Medicine; Visit Provider Internal Medicine Critical Care Medicine
DX: K56.600 Partial intestinal obstruction, unspecified as to cause (principal); N17.0 Acute kidney failure with tubular necrosis; J96.01 Acute respiratory failure with hypoxia; K72.00 Acute and subacute hepatic failure without coma; K63.1 Perforation of intestine (nontraumatic); A41.9 Sepsis, unspecified organism; R57.0 Cardiogenic shock; R65.21 Severe sepsis with septic shock; G61.0 Guillain-Barre syndrome; I95.9 Hypotension, unspecified; K55.9 Vascular disorder of intestine, unspecified; G93.41 Metabolic encephalopathy; K76.0 Fatty (change of) liver, not elsewhere classified; Z99.81 Dependence on supplemental oxygen; E87.6 Hypokalemia; E66.01 Morbid (severe) obesity due to excess calories; R18.8 Other ascites; I47.10 Supraventricular tachycardia, unspecified; Z68.41 Body mass index [BMI] 40.0-44.9, adult; E86.1 Hypovolemia; I46.9 Cardiac arrest, cause unspecified; D69.59 Other secondary thrombocytopenia; G47.33 Obstructive sleep apnea (adult) (pediatric); E83.41 Hypermagnesemia; Z74.01 Bed confinement status; Z20.822 Contact with and (suspected) exposure to COVID-19; Z86.718 Personal history of other venous thrombosis and embolism; Z86.19 Personal history of other infectious and parasitic diseases; Z86.711 Personal history of pulmonary embolism; Z79.01 Long term (current) use of anticoagulants; Z79.899 Other long term (current) drug therapy
CPT/HCPCS: 0241U; 36415; 36573; 36600; 70450; 71045; 71260; 74018; 74177; 80048; 80053; 80202; 81003; 82040; 82803; 82947; 83605; 83690; 83735; 83880; 84100; 84478; 84484; 85007; 85025; 85027; 85610; 86704; 86706; 86709; 86803; 86850; 86900; 86901; 87040; 87077; 87147; 87186; 87205; 87340; 87389; 93005; 93308; 94002; 94003; 94640; 94799; 97110; 97162; 97530; 99285; C1751; J0131; J0153; J0171; J0282; J0283; J0613; J1160; J1450; J1644; J1650; J1720; J1836; J1885; J1939; J2251; J2270; J2371; J2405; J2470; J2543; J2598; J2704; J3010; J3370; J3475; J3480; J7120; P9047; P9073; Q9967

== ENCOUNTER → 2024-04-25 22:04 | Outpatient (BNV) | payer OTHER, SELFPAY | PROVIDERS: Admitting Provider Physician Assistant; Emergency Provider Emergency Medicine; PCP Internal Medicine; Visit Provider Internal Medicine | DX: I95.9 Hypotension, unspecified (principal); R94.31 Abnormal electrocardiogram [ECG] [EKG]; I49.2 Junctional premature depolarization | CPT/HCPCS: 93010 ==

== ENCOUNTER 2024-04-26 02:12 | Outpatient (BNV) | payer OTHER, SELFPAY | END 2024-05-14 08:43 | PROVIDERS: Admitting Provider Physician Assistant; Emergency Provider Emergency Medicine; PCP Internal Medicine; Visit Provider Internal Medicine Cardiovascular Disease | DX: R94.31 Abnormal electrocardiogram [ECG] [EKG] (principal); I49.2 Junctional premature depolarization | CPT/HCPCS: 93010 ==

== ENCOUNTER 2024-04-26 02:12 | Outpatient (BNV) | payer OTHER, SELFPAY | END 2024-05-13 08:13 | PROVIDERS: Admitting Provider Physician Assistant; Emergency Provider Emergency Medicine; PCP Internal Medicine; Visit Provider Internal Medicine Cardiovascular Disease | DX: R00.0 Tachycardia, unspecified (principal) | CPT/HCPCS: 93010 ==

== ENCOUNTER → 2024-04-26 02:12 | Outpatient (BNV) | payer OTHER, SELFPAY | PROVIDERS: Admitting Provider Physician Assistant; Emergency Provider Emergency Medicine; PCP Internal Medicine; Visit Provider Internal Medicine Critical Care Medicine | DX: K55.9 Vascular disorder of intestine, unspecified (principal); R57.9 Shock, unspecified; K63.1 Perforation of intestine (nontraumatic); K56.609 Unspecified intestinal obstruction, unspecified as to partial versus complete obstruction | CPT/HCPCS: 36556; 36620; 99291; 99292; 99358 ==

== ENCOUNTER → 2024-04-26 02:12 | Outpatient (BNV) | payer OTHER, SELFPAY | PROVIDERS: Admitting Provider Physician Assistant; Emergency Provider Emergency Medicine; PCP Internal Medicine; Visit Provider Surgery | DX: K56.609 Unspecified intestinal obstruction, unspecified as to partial versus complete obstruction (principal) | CPT/HCPCS: 99222; 99232; 99499 ==

== ENCOUNTER → 2024-04-26 02:12 | Outpatient (BNV) | payer OTHER, SELFPAY | PROVIDERS: Admitting Provider Physician Assistant; Emergency Provider Emergency Medicine; PCP Internal Medicine; Visit Provider Internal Medicine | DX: E87.6 Hypokalemia (principal); K56.609 Unspecified intestinal obstruction, unspecified as to partial versus complete obstruction | CPT/HCPCS: 99232; 99499 ==

== ENCOUNTER → 2024-04-26 02:12 | Outpatient (BNV) | payer OTHER, SELFPAY | PROVIDERS: Admitting Provider Physician Assistant; Emergency Provider Emergency Medicine; PCP Internal Medicine; Visit Provider Internal Medicine Cardiovascular Disease | DX: R57.9 Shock, unspecified (principal); R00.0 Tachycardia, unspecified | CPT/HCPCS: 93308; 99291; 99292 ==